=== PATIENT | male | born 1955 | race Caucasian/White ===

== ENCOUNTER 2023-07-12 08:57 | Outpatient (OUT) | payer MEDICARE, OTHER, SELFPAY ==
--- NOTE | 2023-07-12 10:40 | CA_ITS ---
Patient Name: ZEV REIS MR#: [id number] : 1955 Exam Date: 07/12/2023 Ordering Doctor: DR DYLAN MONTILLA . ECHOCARDIOGRAM REPORT PROCEDURE: CA ECHO DOPPLER COMPLETE INDICATIONS: Chest pain, essential hypertension, smoker, diabetes COMPARISON: None. DESCRIPTION: COMPLETE ECHOCARDIOGRAM Real-time transthoracic echocardiography with 2D, M-mode, spectral and color flow Doppler performed. QUALITY: Technical quality was good. 69 , 167#, BSA 1.91 m2 LEFT VENTRICLE: Normal chamber size. Asymmetric septal hypertrophy. Velocities through the left ventricular outflow tract are normal. LV EF: Global left ventricular systolic function is normal; visually estimated ejection fraction is 55 to 60%. No significant wall motion abnormalities. DIASTOLIC: Normal diastolic function. ATRIAL SEPTUM: Visually appears intact. LEFT ATRIUM: Normal chamber size. RIGHT ATRIUM: Normal chamber size. RIGHT VENTRICLE: Normal chamber size. Normal right ventricular systolic function. TRICUSPID VALVE: Normal mobility and thickness. No stenosis with trivial regurgitation. MITRAL VALVE: Mildly thickened with normal mobility. No evidence of mitral valve stenosis. There is no mitral annular calcification. Trivial mitral regurgitation. AORTIC VALVE: Normal trileaflet appearance. No visible sclerosis. Normal leaflet mobility. No evidence of aortic valve stenosis. No aortic regurgitation. AORTIC ROOT: Normal diameter and appearance. PULMONIC VALVE: Normal thickness and mobility. No stenosis. Trivial regurgitation. PERICARDIUM: No evidence of pericardial effusion. IVC: Collapses with inspirations. IVC is normal in size. CONCLUSION: 1. Global left ventricular systolic function is normal; visually estimated ejection fraction is 55 to 60% 2. Asymmetric septal hypertrophy; velocities through the left ventricular outflow tract are normal at rest. The echocardiographic phenotype is suggestive of hypertrophic cardiomyopathy. 3. Normal right ventricular size and systolic function 4. No significant valvular abnormalities Adult Echocardiography Procedure Report Left Ventricle LVEDD (3.7 - 5.6 cm): 4.23 cm LVESD (2.2 - 4.0 cm): 2.44 cm LVIVS thickness (0.6 - 1.2 cm): 1.64 cm LVPW thickness (0.5 - 1.0 cm): 1.03 cm e': 0.08 m/s E - e': 6.92 LVOT Max Gradient: 2.44 mm[Hg] LVOT Area (cm2): 0.78 m/s Peak Velocity (LVOT): 0.78 m/s Mean Velocity (LVOT): 0.57 m/s LVOT Diameter 2.54 cm Left Atrium LA Volume Index (2D A2C): 35.20 ml/m2 Left Atrium Systolic Dimension: 4.32 cm Mitral Valve MV E to A Ratio: 0.94 Mitral Valve A-Wave Peak Velocity: 0.57 m/s Mitral Valve E-Wave Peak Velocity: 0.53 m/s Right Ventricle Aorta AO Root Diam: 3.74 cm Ascending Ao Diam: 3.34 cm Aortic Valve AoV Area (Peak José Luis): 3.71 cm2, 3.71 cm2 AoV Area (VTI): 4.27 cm2, 4.27 cm2 Peak Velocity(Antegrade Flow): 1.07 m/s Peak Gradient(Antegrade Flow): 4.56 mm[Hg] Mean Velocity(Antegrade Flow): 0.69 m/s Mean Gradient(Antegrade Flow): 2.21 mm[Hg] Velocity Time Integral: 23.96 cm Tricuspid Valve Pulmonic Valve Peak Velocity: 0.77 m/s Peak Gradient: 2.56 mm[Hg], 2.21 mm[Hg] Right Atrium Right Atrium Systolic Pressure: 56.21 ml, 56.21 ml Dictated by: Chad Morgan M.D. on 07/13/2023 at 14:23 Approved by: Chad Morgan M.D. on 07/13/2023 at 14:29
== END 2023-07-12 08:58 | disposition home or self-care (01) ==
LOC: CARD 08:57
PROVIDERS: PCP Family Medicine; Visit Provider Family Medicine
DX: R07.9 Chest pain, unspecified (principal); I10 Essential (primary) hypertension
CPT/HCPCS: 93306; 93356

== ENCOUNTER 2023-11-25 07:17 | Outpatient (OUT) | payer MEDICARE, OTHER, SELFPAY ==
--- OUTSIDE RECORDS SUMMARY | 2023-11-25 07:21 | XMS_ITS | CCD ---
Author Organization [facility] Care Team Providers Care Bronzer Name Role Phone ROLDAN ., DR RICHARDSON Admitting Unavailable HOY ., DR RICHARDSON Attending Unavailable HOY ., DR RICHARDSON Primary Care Unavailable HOY ., DR RICHARDSON Consulting Unavailable ZIEBER, DR FREDI Cerda Consulting Unavailable HOY ., DR RICHARDSON Admitting Unavailable HOY ., DR RICHARDSON Attending Unavailable HOY ., DR RICHARDSON Primary Care Unavailable HOY ., DR RICHARDSON Consulting Unavailable GUSTAVO GONZALEZ Consulting Unavailable HOY ., DR RICHARDSON Admitting Unavailable HOY ., DR RICHARDSON Attending Unavailable HOY ., DR RICHARDSON Primary Care Unavailable HOY ., DR RICHARDSON Consulting Unavailable Serjio GAVIRIA Attending Unavailable Floriany, Dylan Referring Unavailable VIRGINIA POLLOCK Referring Unavailable HOY, DYLAN Referring Unavailable Floriany Dylan TAYLOR Primary Care Provider [phone] MARY TELLES Attending Unavailable HOY, DYLAN M Referring Unavailable HOY, DYLAN M Primary Care Unavailable MARY TELLES Admitting Unavailable MARY TELLES Attending Unavailable MARY TELLES Referring Unavailable HOY, DYLAN M Primary Care Unavailable LANNY RODRIGUEZ Consulting Unavailable WILLARD DE LA PAZ Consulting Unavailable JINA CONNOLLY Attending Unavailable HOY, DYLAN M Primary Care Unavailable RHYS RUSSO Referring Unavailable HOY, DYLAN M Primary Care Unavailable ADORE VELASQUEZ A Attending Unavailable ADORE VELASQUEZ A Referring Unavailable HOY, DYLAN M Primary Care Unavailable ADORE VELASQUEZ A Attending Unavailable ADORE VELASQUEZ A Referring Unavailable HOY, DYLAN M Primary Care Unavailable ADORE VELASQUEZ Attending Unavailable ADORE VELASQUEZ A Referring Unavailable HOY, DYLAN M Primary Care Unavailable WILLARD DE LA PAZ Attending Unavailable WILLARD DE LA PAZ Referring Unavailable HOY, DYLAN M Primary Care Unavailable WILLARD DE LA PAZ Attending Unavailable WILLARD DE LA PAZ Referring Unavailable HOY, DYLAN M Primary Care Unavailable MARY TELLES Attending Unavailable HOY, DYLAN M Referring Unavailable HOY, DYLAN M Primary Care Unavailable SHAZIA ELIZABETH Attending Unavailable HOY, DYLAN M Referring Unavailable HOY, DYLAN M Primary Care Unavailable CREEDON, CHLOE Attending Unavailable HOY, DYLAN M Referring Unavailable HOY, DYLAN M Primary Care Unavailable TAMEKA ROSARIO Referring Unavailable PROVIDER, UNKNOWN Primary Care Unavailable CREEDON, CHLOE Referring Unavailable PROVIDER, UNKNOWN Primary Care Unavailable CREEDON, CHLOE Referring Unavailable PROVIDER, UNKNOWN Primary Care Unavailable CREEDON, CHLOE Referring Unavailable PROVIDER, UNKNOWN Primary Care Unavailable CREEDON, CHLOE Referring Unavailable PROVIDER, UNKNOWN Primary Care Unavailable Allergies Allergy Classification Reported Allergen(s) Allergy Type Date of Onset Reaction(s) Facility (1 source) ALLERGIES NOT ON FILE; Translations: [ALLERGIES NOT ON FILE] Propensity to adverse reactions (disorder) [facility] Repository Medications Current Medications Medication Drug Class(es) Dates Sig (Normalized) Sig (Original) amLODIPine 10 mg oral tablet (5 sources) Dihydropyridine Calcium Channel Erika take 1 tablet by mouth in the morning amLODIPine (NORVASC) 10 mg tablet Indications: hypertension Take 1 tablet (10 mg total) by mouth in the morning. Indications: high blood pressure. 0 Active atorvastatin 40 mg oral tablet (5 sources) HMG-CoA Reductase Inhibitor take 1 tablet by mouth once daily atorvastatin (LIPITOR) 40 mg tablet Indications: hypercholesterolemia Take 1 tablet (40 mg total) by mouth nightly Indications: high cholesterol. 0 Active carvedilol 25 mg oral tablet (5 sources) alpha-Adrenergic Erika, beta-Adrenergic Erika take 1 tablet by mouth in the morning, then take 1 tablet by mouth at mealtime carvedilol (COREG) 25 mg tablet Indications: hypertension Take 1 tablet (25 mg total) by mouth in the morning and 1 tablet (25 mg total) in the evening. Take with meals. Indications: high blood pressure. 0 Active 3 ml insulin lispro 100 unt/ml pen injector (3 sources) Insulin Analog Start: 4 inject 2-10 [IU] by subcutaneous injection four times daily at mealtime insulin lispro (HumaLOG) 100 unit/mL insulin pen Inject 2-10 Units under the skin 4 (four) times a day with meals and nightly. 15 mL 12 07/27/2023 Active insulin lispro (HumaLOG) 100 unit/mL insulin pen (2 sources) Start: 4 inject 2-10 [IU] by subcutaneous injection four times daily at mealtime insulin lispro (HumaLOG) 100 unit/mL insulin pen Inject 2-10 Units under the skin 4 (four) times a day with meals and nightly. 15 mL 12 07/27/2023 Active losartan potassium 25 mg oral tablet (5 sources) Angiotensin 2 Receptor Erika take 2 tablets by mouth in the morning losartan (COZAAR) 25 mg tablet Indications: hypertension Take 2 tablets (50 mg total) by mouth in the morning. Indications: high blood pressure. 0 Active metFORMIN hydrochloride 500 mg oral tablet (5 sources) Biguanide Start: 3 take 1 tablet by mouth twice daily metFORMIN (GLUCOPHAGE) 500 mg tablet 1 tablet with a meal Orally Twice a day for 30 day(s) 0 07/11/2023 Active ondansetron 4 mg disintegrating oral tablet (5 sources) Serotonin-3 Receptor Antagonist Start: 4 take 1 tablet by mouth every eight hours as needed for nausea and vomiting ondansetron ODT (ZOFRAN ODT) 4 mg disintegrating tablet Dissolve 1 tablet (4 mg total) on tongue every 8 (eight) hours as needed for nausea or vomiting. 30 tablet 3 08/05/2023 Active polyethylene glycol 3350 34131 mg powder for oral solution (5 sources) Osmotic Laxative Start: 4 polyethylene glycol (GLYCOLAX) 17 gram packet Take 17 g by mouth in the morning. 30 packet 0 07/28/2023 Active Problems Active Problems Problem Classification Problem Date Documented Date Episodic/Chronic Acute and unspecified renal failure (1 source) Acute kidney failure, unspecified; Translations: [Acute kidney failure, unspecified] Onset: 11-14-2023 Episodic Aortic; peripheral; and visceral artery aneurysms (5 sources) Abdominal aortic aneurysm; Translations: [AAA (abdominal aortic aneurysm)] Onset: 02-23-2018 02-23-2018 Chronic Cancer of kidney and renal pelvis (8 sources) Clear cell carcinoma of kidney; Translations: [Malignant neoplasm of unspecified kidney, except renal pelvis] Onset: 05-11-2023 08-21-2023 Chronic Chronic kidney disease (2 sources) Chronic kidney disease, unspecified; Translations: [Chronic kidney disease, unspecified] Onset: 11-11-2023 Chronic Coronary atherosclerosis and other heart disease (2 sources) Atherosclerotic heart disease of [place] coronary artery without angina pectoris; Translations: [Atherosclerotic heart disease of [place] coronary artery without angina pectoris] Onset: 11-11-2023 Chronic Diabetes mellitus without complication (1 source) Type 2 diabetes mellitus without complications; Translations: [Type 2 diabetes mellitus without complications] Onset: 07-21-2023 Chronic Disorders of lipid metabolism (7 sources) Mixed hyperlipidemia; Translations: [Mixed hyperlipidemia] Onset: 02-23-2018 02-23-2018 Chronic Essential hypertension (7 sources) Essential hypertension; Translations: [Essential (primary) hypertension] Onset: 02-23-2018 02-23-2018 Chronic Nonspecific chest pain (2 sources) Other chest pain; Translations: [Other chest pain] Onset: 11-11-2023 Episodic Other diseases of kidney and ureters (3 sources) Other specified disorders of kidney and ureter; Translations: [Other specified disorders of kidney and ureter] Onset: 12-23-2022 Chronic Other diseases of kidney and ureters (7 sources) Renal mass; Translations: [Other specified disorders of kidney and ureter] Onset: 07-21-2023 08-21-2023 Chronic Other screening for suspected conditions (not mental disorders or infectious disease) (7 sources) Abnormal findings on diagnostic imaging of other abdominal regions, including retroperitoneum; Translations: [Abnormal results of kidney function studies] Onset: 11-30-2022 Episodic Setfany-; endo-; and myocarditis; cardiomyopathy (except that caused by tuberculosis or sexually transmitted disease) (2 sources) Other hypertrophic cardiomyopathy; Translations: [Other hypertrophic cardiomyopathy] Onset: 11-11-2023 Chronic Peripheral and visceral atherosclerosis (1 source) Peripheral vascular disease, unspecified; Translations: [Peripheral vascular disease, unspecified] Onset: 11-11-2023 Chronic Residual codes; unclassified (1 source) Pain, unspecified; Translations: [Pain, unspecified] Onset: 10-26-2023 Episodic Substance-related disorders (7 sources) Nicotine dependence; Translations: [Nicotine dependence, unspecified, uncomplicated] Onset: 02-23-2018 02-23-2018 Chronic Unclassified (1 source) Renal cell carcinoma (CMS-HCC) [C64.9] Onset: 07-21-2023 Unclassified (1 source) Infrarenal abdominal aortic aneurysm, without rupture; Translations: [Infrarenal abdominal aortic aneurysm, without rupture] Onset: 02-23-2018 Unclassified (1 source) New Patient Onset: 11-11-2023 Past or Other Problems Problem Classification Problem Date Documented Da te Episodic/Chronic Mood disorders (5 sources) Mood disorders Onset: 07-21-2023 07-21-2023 Pancreatic disorders (not diabetes) (5 sources) Idiopathic acute pancreatitis; Translations: [Idiopathic acute pancreatitis without necrosis or infection] Onset: 02-23-2018 02-23-2018 Episodic Results Test Name Value Interpretation Reference Range Facility CREATININE CLEARANCEon 11-13 Creatinine (U) [Mass/Vol] 51.43 mg/dL Normal [facility] Comment on above: Performed By: #### C RCL #### [facility] ([id number]) [address] [place] [address] CREATININE CLEARANCE 13.6 mL/min Low 74-130 [facility] Comment on above: Performed By: #### C RCL #### [facility] ([id number]) [address] [place] [address] URINE VOLUME AND TIMEon 10-24 TIME 24 h [facility] Comment on above: Performed By: #### C RCL #### [facility] ([id number]) [address] [place] [address] TOTAL VOLUME 1700 mL Normal [facility] Comment on above: Performed By: #### C RCL #### [facility] ([id number]) [address] [place] [address] Measure post void residualOr dered By: Gabrielle Moreno on 09-30-2023 Volume 71ccs [facility] BASIC METABOLIC PANLon 07-27 Anion gap [Moles/Vol] 10 mmol/L Normal 5-15 [facility] Comment on above: Performed By: #### C HANNAH, BMP, , 2776-07 #### [facility] ([id number]) [address], [address] [place] [address] Calcium [Mass/Vol] 8.1 mg/dL Low 8.5-10.[address] [facility] Comment on above: Performed By: #### C HANNAH, BMP, , 2776-07 #### [facility] ([id number]) [address], [address] [place] [address] Chloride [Moles/Vol] 101 mmol/L Normal 98-109 [facility] Comment on above: Performed By: #### Kathleen YOUNG, SEBASTIAN, , 2776-07 #### [facility] ([id number]) [address], [address] [place] [address] CO2 [Moles/Vol] 27 mmol/L Normal 22-32 [facility] Comment on above: Performed By: #### C HANNAH, SEBASTIAN, , 2776-07 #### [facility] ([id number]) [address], [address] [place] [address] Creatinine [Mass/Vol] 5.69 mg/dL High 0.60-1.30 [facility] Comment on above: Result Comment: METH OD TRACEABLE TO IDMS STANDARD Performed By: #### Kathleen YOUNG, BMP, , 2776-07 #### [facility] ([id number]) [address], [address] [place] [address] GFR/1.73 sq M.predicted among non-blacks MDRD (S/P/Bld) [Vol rate/Area] 10 mL/min/{1.73_m2} Low >59 [facility] Comment on above: Result Comment: Reported eGFR is based on the CKD-EPI 2020 equation that does not use a race coefficient. Performed By: #### C BC, BMP, , 2776-07 #### [facility] ([id number]) [address], [address] [place] [address] Glucose [Mass/Vol] 165 mg/dL High 65-[address] [facility] Comment on above: Performed By: #### C SEBASTIAN YOUNG, , 2776-07 #### [facility] ([id number]) [address], [address] [place] [address] Potassium [Moles/Vol] 4.3 mmol/L Normal 3.5-5.0 [facility] Comment on above: Performed By: #### SEBASTIAN MARTIN, , 2776-07 #### [facility] ([id number]) [address], [address] [place] [address] Sodium [Moles/Vol] 138 mmol/L Normal 134-[address] [facility] Comment on above: Performed By: #### SEBASTIAN MARTIN, , 2776-07 #### [facility] ([id number]) [address], [address] [place] [address] Urea nitrogen [Mass/Vol] 40 mg/dL High 5-27 [facility] Comment on above: Performed By: #### SEBASTIAN MARTIN, , 2776-07 #### [facility] ([id number]) [address], [address] [place] [address] COMPLETE BLOOD COUNTon 07-27 Erythrocyte distribution width (RBC) [Ratio] 12.8 % Normal 11.5-15.0 [facility] Comment on above: Performed By: #### SEBASTIAN MARTIN, , 2776-07 #### [facility] ([id number]) [address], [address] [place] [address] Hematocrit (Bld) [Volume fraction] 26.7 % Low 39-49 [facility] Comment on above: Performed By: #### SEBASTIAN MARTIN, , 2776-07 #### [facility] ([id number]) [address], [address] [place] [address] Hemoglobin (Bld) [Mass/Vol] 9.4 g/dL Low 13.0-17.0 [facility] Comment on above: Performed By: #### C HANNAH, BMP, , 2776-07 #### [facility] ([id number]) [address], [address] [place] [address] MCH (RBC) [Entitic mass] 31.3 pg Normal 27-34 [facility] Comment on above: Performed By: #### Kathleen YOUNG, BMP, , 2776-07 #### [facility] ([id number]) [address], [address] [place] [address] MCHC (RBC) [Mass/Vol] 35.2 g/dL Normal 32-36 [facility] Comment on above: Performed By: #### Kathleen YOUNG, BMP, , 2776-07 #### [facility] ([id number]) [address], [address] [place] [address] MCV (RBC) [Entitic vol] 89 fL Normal 80-100 [facility] Comment on above: Performed By: #### Kathleen YOUNG, BMP, , 2776-07 #### [facility] ([id number]) [address], [address] [place] [address] Platelet mean volume (Bld) [Entitic vol] 7.5 fL Normal 7-12 [facility] Comment on above: Performed By: #### Kathleen YOUNG, BMP, , 2776-07 #### [facility] ([id number]) [address], [address] [place] [address] Platelets (Bld) [#/Vol] 195 10*3/uL Normal 150-450 [facility] Comment on above: Performed By: #### Kathleen YOUNG, [facility], , 2776-07 #### [facility] ([id number]) [address], [address] [place] [address] RBC COUNT 3.00 X10E12/L Low 4.10-5.70 [facility] Comment on above: Performed By: #### SEBASTIAN MARTIN, , 2776-07 #### [facility] ([id number]) [address], [address] [place] [address] WBC (Bld) [#/Vol] 5.6 10*3/uL Normal 4.0-11.[address] [facility] Comment on above: Performed By: #### SEBASTIAN MARTIN, , 2776-07 #### [facility] ([id number]) [address], [address] [place] [address] FLUID CREATININEon Creatinine [Mass/Vol] 5.76 mg/dL Normal [facility] Comment on above: Result Comment: The reference interval and other method performance specifications are unavailable for this body fluid. Comparison of this result to serum or plasma is recommended. Performed By: #### SEBASTIAN MARTIN, , 2776-07 #### [facility] ([id number]) [address], [address] [place] [address] CRET SPECIMEN TYPE [facility] Normal [facility] Comment on above: Performed By: #### SEBASTIAN MARTIN, , 2776-07 #### [facility] ([id number]) [address], [address] [address] Glucose Glucometer (BldC) [M ass/Vol]on 07-27-2023 Glucose [Mass/Vol] 132 mg/dL High 65-[address] [facility] Glucose [Mass/Vol] 138 mg/dL High 65-[address] [facility] IR PORT TUNLD DIAL/CENT LINE > 5 YRSon 07-27-2023 IR PORT TUN[place] DIAL/CENT LINE > 5 YRS IR PORT TUNLD DIAL/CENT LINE > 5 YRS History: 67-year-old male with renal failure requiring long-term hemodialysis. Procedures: 1. Removal of right internal jugular vein nontunneled hemodialysis catheter. 2. Placement of new right internal jugular vein cuffed, tunneled hemodialysis catheter. Interventional radiologist: Dr. Renato De La Torre Anesthesia: During the course of the procedure, the patient received local and IV pain control with 100 mcg Fentanyl IV while being monitored with ECG, blood pressure monitoring and pulse oximetry by appropriately trained personnel. Fluoroscopy time: 0.3 minutes Total air kerma: 1.45 mGy Estimated blood loss: 10 mL. Additional medications: Ancef 1 g IV given one hour prior to procedure, discontinued after a single dose. Technique: Informed consent was obtained from the patient after discussion of procedure, risks and benefits. Patient transferred to angiography suite. Final verification performed. The patient was placed supine and the right neck prepped using maximal sterile technique. All elements of the maximal sterile barrier technique were followed including: cap and mask and sterile gown and sterile gloves and a large sterile sheet and hand hygiene and 2% chlorhexidine for cutaneous antiseptics (or acceptable alternative antiseptics, per current guidelines). 1% lidocaine with epinephrine was used to anesthetize the subcutaneous tissues in the right deltopectoral groove towards the venous access site. A small dermatotomy was made in the deltopectoral groove. Using a tunneling device, the catheter was tunneled towards the venous access site of the existing nontunneled catheter. 1% Lidocaine was used to anesthetize the subcutaneous tissues surrounding the existing right nontunneled hemodialysis catheter and the anchoring sutures were cut. A guidewire was passed through the existing nontunneled catheter. The catheter was then removed and a peel-away sheath with air guard was placed. The tips of the new catheter were placed through the air guard peel-away sheath and positioned appropriately. The peel-away sheath was removed. Final fluoroscopic image was obtained. Both ports of the catheter flushed and aspirated well. The catheter was secured to the skin using 2-0 Prolene sutures. The venous access site was closed with a single stitch of 3-0 Vicryl. Existing skin glue was applied over the venous access site. Dressing was applied. Both ports of the catheter were flushed with sodium citrate. The patient tolerated the procedure well without immediate complication. Findings: 1. The right internal jugular vein is patent. 2. Catheter has a smooth course without evidence of kinks. 3. Both ports of the catheter flushed and aspirated well. Impression: 1. Successful removal of existing right internal jugular nontunneled hemodialysis catheter. 2. Successful insertion of a new right internal jugular 19 cm cuff to tip AshSplit cuffed, tunneled hemodialysis catheter. Finalized by Renato De La Torre MD on 07/27/2023 1:04 PM Normal [facility] PHOSPHORUSon 07-27-2023 Phosphate [Mass/Vol] 5.1 mg/dL High 2.4-4.9 [facility] Comment on above: Performed By: #### SEBASTIAN MARTIN, , 2776-1 #### [facility] ([id number]) [address], [address] [place] [address] BASIC METABOLIC PANLon 07-26 Anion gap [Moles/Vol] 10 mmol/L Normal 5-15 [facility] Comment on above: Performed By: #### SEBASTIAN MARTIN, , 2776-07 #### [facility] ([id number]) [address], [address] [place] [address] Calcium [Mass/Vol] 7.9 mg/dL Low 8.5-10.[address] [facility] Comment on above: Performed By: #### SEBASTIAN MARTIN, , 2776-07 #### [facility] ([id number]) [address], [address] [place] [address] Chloride [Moles/Vol] 101 mmol/L Normal 98-109 [facility] Comment on above: Performed By: #### SEBASTIAN MARTIN, , 2776-07 #### [facility] ([id number]) [address], [address] [place] [address] CO2 [Moles/Vol] 24 mmol/L Normal 22-32 [facility] Comment on above: Performed By: #### C SEBASTIAN YOUNG, , 2776-07 #### [facility] ([id number]) [address], [address] [place] [address] Creatinine [Mass/Vol] 7.14 mg/dL High 0.60-1.30 [facility] Comment on above: Result Comment: METH OD TRACEABLE TO IDMS STANDARD Performed By: #### C SEBASTIAN YOUNG, , 2776-07 #### [facility] ([id number]) [address], [address] [place] [address] GFR/1.73 sq M.predicted among non-blacks MDRD (S/P/Bld) [Vol rate/Area] 8 mL/min/{1.73_m2} Low >59 [facility] Comment on above: Result Comment: Reported eGFR is based on the CKD-EPI 2020 equation that does not use a race coefficient. Performed By: #### C SEBASTIAN YOUNG, , 2776-07 #### [facility] ([id number]) [address], [address] [place] [address] Glucose [Mass/Vol] 168 mg/dL High 65-[address] [facility] Comment on above: Performed By: #### SEBASTIAN MARTIN, , 2776-07 #### [facility] ([id number]) [address], [address] [place] [address] Potassium [Moles/Vol] 4.4 mmol/L Normal 3.5-5.0 [facility] Comment on above: Performed By: #### SEBASTIAN MARTIN, , 2776-07 #### [facility] ([id number]) [address], [address] [place] [address] Sodium [Moles/Vol] 135 mmol/L Normal 134-[address] [facility] Comment on above: Performed By: #### C HANNAH, BMP, , 2776-07 #### [facility] ([id number]) [address], [address] [place] [address] Urea nitrogen [Mass/Vol] 58 mg/dL High 5-27 [facility] Comment on above: Performed By: #### C HANNAH, BMP, , 2776-07 #### [facility] ([id number]) [address], [address] [place] [address] COMPLETE BLOOD COUNTon 07-26 Erythrocyte distribution width (RBC) [Ratio] 12.9 % Normal 11.5-15.0 [facility] Comment on above: Performed By: #### Kathleen YOUNG, BMP, , 2776-07 #### [facility] ([id number]) [address], [facility] [address] [place] [address] Hematocrit (Bld) [Volume fraction] 27.6 % Low 39-49 [facility] Comment on above: Performed By: #### C HANNAH, BMP, , 2776-07 #### [facility] ([id number]) [address], [address] [place] [address] Hemoglobin (Bld) [Mass/Vol] 9.7 g/dL Low 13.0-17.0 [facility] Comment on above: Performed By: #### Kathleen YOUNG, BMP, , 2776-07 #### [facility] ([id number]) [address], [address] [place] [address] MCH (RBC) [Entitic mass] 31.2 pg Normal 27-34 [facility] Comment on above: Performed By: #### C BC, BMP, , 2776-07 #### [facility] ([id number]) [address], [address] [place] [address] MCHC (RBC) [Mass/Vol] 35.0 g/dL Normal 32-36 [facility] Comment on above: Performed By: #### SEBASTIAN MARTIN, , 2776-07 #### [facility] ([id number]) [address], [address] [place] [address] MCV (RBC) [Entitic vol] 89 fL Normal 80-100 [facility] Comment on above: Performed By: #### SEBASTIAN MARTIN, , 2776-07 #### [facility] ([id number]) [address], [address] [place] [address] Platelet mean volume (Bld) [Entitic vol] 7.5 fL Normal 7-12 [facility] Comment on above: Performed By: #### SEBASTIAN MARTIN, , 2776-07 #### [facility] ([id number]) [address], [address] [place] [address] Platelets (Bld) [#/Vol] 186 10*3/uL Normal 150-450 [facility] Comment on above: Performed By: #### SEBASTIAN MARTIN, , 2776-07 #### [facility] ([id number]) [address], [address] [place] [address] RBC COUNT 3.09 X10E12/L Low 4.10-5.70 [facility] Comment on above: Performed By: #### Kathleen YOUNG, SEBASTIAN, , 2776-07 #### [facility] ([id number]) [address], [address] [place] [address] WBC (Bld) [#/Vol] 5.9 10*3/uL Normal 4.0-11.[address] [facility] Comment on above: Performed By: #### Kathleen YOUNG, SEBASTIAN, , 2776-07 #### [facility] ([id number]) [address], [address] [place] [address] Glucose Glucometer (BldC) [M ass/Vol]on 07-26-2023 Glucose [Mass/Vol] 147 mg/dL High 65-[address] [facility] Glucose [Mass/Vol] 194 mg/dL High 65-[address] [facility] Glucose [Mass/Vol] 147 mg/dL High 65-[address] [facility] Glucose [Mass/Vol] 179 mg/dL High 65-[address] [facility] HBV core Ab IA Qlon 07-26-19 24 ANTI HBc Negative Normal NEG [facility] Comment on above: Performed By: #### SEBASTIAN MARTIN, , 2776-07 #### [facility] ([id number]) [address], [address] [place] [address] BASIC METABOLIC PANLon 07-25 Anion gap [Moles/Vol] 9 mmol/L Normal 5-15 [facility] Comment on above: Performed By: #### SEBASTIAN MARTIN, , 2776-07 #### [facility] ([id number]) [address], [address] [place] [address] Calcium [Mass/Vol] 7.8 mg/dL Low 8.5-10.[address] [facility] Comment on above: Performed By: #### SEBASTIAN MARTIN, , 2776-07 #### [facility] ([id number]) [address], [address] [place] [address] Chloride [Moles/Vol] 100 mmol/L Normal 98-109 [facility] Comment on above: Performed By: #### SEBASTIAN MARTIN, , 2776-07 #### [facility] ([id number]) [address], [address] [place] [address] CO2 [Moles/Vol] 27 mmol/L Normal 22-32 [facility] Comment on above: Performed By: #### SEBASTIAN MARTIN, [id number] #### [facility] ([id number]) [address] [place] [address] Creatinine [Mass/Vol] 4.78 mg/dL High 0.60-1.30 [facility] Comment on above: Result Comment: METH OD TRACEABLE TO IDMS STANDARD Performed By: #### SEBASTIAN MARTIN, , 2776-07 #### [facility] ([id number]) [address], [address] [place] [address] GFR/1.73 sq M.predicted among non-blacks MDRD (S/P/Bld) [Vol rate/Area] 13 mL/min/{1.73_m2} Low >59 [facility] Comment on above: Result Comment: Reported eGFR is based on the CKD-EPI 2020 equation that does not use a race coefficient. Performed By: #### SEBASTIAN MARTIN, , 2776-07 #### [facility] ([id number]) [address], [address] [place] [address] Glucose [Mass/Vol] 132 mg/dL High 65-[address] [facility] Comment on above: Performed By: #### SEBASTIAN MARTIN, , 2776-07 #### [facility] ([id number]) [address], [address] [place] [address] Potassium [Moles/Vol] 4.2 mmol/L Normal 3.5-5.0 [facility] Comment on above: Performed By: #### SEBASTIAN MARTIN, , 2776-07 #### [facility] ([id number]) [address], [address] [place] [address] Sodium [Moles/Vol] 136 mmol/L Normal 134-[address] [facility] Comment on above: Performed By: #### SEBASTIAN MARTIN, , 2776-07 #### [facility] ([id number]) [address], [address] [place] [address] Urea nitrogen [Mass/Vol] 40 mg/dL High 5-27 [facility] Comment on above: Performed By: #### Kathleen BC, BMP, , 2776-07 #### [facility] ([id number]) [address], [facility] [address] [place] [address] COMPLETE BLOOD COUNTon 07-25 Erythrocyte distribution width (RBC) [Ratio] 13.1 % Normal 11.5-15.0 [facility] Comment on above: Performed By: #### Kathleen YOUNG, BMP, , 2776-07 #### [facility] ([id number]) [address], [facility] [address] [place] [address] Hematocrit (Bld) [Volume fraction] 28.8 % Low 39-49 [facility] Comment on above: Performed By: #### Kathleen YOUNG, BMP, , 2776-07 #### [facility] ([id number]) [address] [address] [place] [address] Hemoglobin (Bld) [Mass/Vol] 10.1 g/dL Low 13.0-17.0 [facility] Comment on above: Performed By: #### Kathleen YOUNG, BMP, , 2776-07 #### [facility] ([id number]) [address], [facility] [address] [place] [address] MCH (RBC) [Entitic mass] 31.1 pg Normal 27-34 [facility] Comment on above: Performed By: #### Kathleen BC, BMP, , 2776-07 #### [facility] ([id number]) [address], [address] [place] [address] MCHC (RBC) [Mass/Vol] 35.2 g/dL Normal 32-36 [facility] Comment on above: Performed By: #### Kathleen BC, BMP, , 2776-07 #### [facility] ([id number]) [address], [address] [place] [address] MCV (RBC) [Entitic vol] 89 fL Normal 80-100 P [facility] Comment on above: Performed By: #### SEBASTIAN MARTIN, , 2776-07 #### [facility] ([id number]) [address], [address] [place] [address] Platelet mean volume (Bld) [Entitic vol] 7.6 fL Normal 7-12 [facility] Comment on above: Performed By: #### SEBASTIAN MARTIN, , 2776-07 #### [facility] ([id number]) [address] [address] [place] [address] Platelets (Bld) [#/Vol] 182 10*3/uL Normal 150-450 [facility] Comment on above: Performed By: #### SEBASTIAN MARTIN, , 2776-07 #### [facility] ([id number]) [address] [address] [place] [address] RBC COUNT 3.25 X10E12/L Low 4.10-5.70 [facility] Comment on above: Performed By: #### SEBASTIAN MARTIN, , 2776-07 #### [facility] ([id number]) [address], [facility] [address] [place] [address] WBC (Bld) [#/Vol] 6.0 10*3/uL Normal 4.0-11.[address] [facility] Comment on above: Performed By: #### SEBASTIAN MARTIN, , 2776-07 #### [facility] ([id number]) [address], [address] [place] [address] Glucose Glucometer (BldC) [M ass/Vol]on 07-25-2023 Glucose [Mass/Vol] 190 mg/dL High 65-[address] [facility] Glucose [Mass/Vol] 144 mg/dL High 65-[address] [facility] Glucose [Mass/Vol] 200 mg/dL High 65-[address] [facility] Glucose [Mass/Vol] 142 mg/dL High 65-[address] [facility] Glucose [Mass/Vol] 142 mg/dL High 65-[address] [facility] HGB A1C (GLYCO-HGB)on 2023 Glucose [Mass/Vol] 289 mg/dL Normal [facility] Comment on above: Performed By: #### C SEBASTIAN YOUNG, , 2777-1 #### [facility] ([id number]) [address] [facility] [place] [address] HbA1c (Bld) [Mass fraction] 11.7 % High 4.4-5.6 [facility] Comment on above: Result Comment: NOTE ADA Guidelines Result HgbA1c Normal : less than 5.7 % Prediabetes : 5.7 % to 6.4 % Diabetes : > 6.4 % Use with caution in patients with abnormal hemoglobin variants as the half-life of red blood cells and in vivo glycation rates are affected. Performed By: #### C SEBASTIAN YOUNG, 30483-6, 2777-1 #### [facility] ([id number]) [address] [facility] [facility] [place] [address] BASIC METABOLIC PANLon 07-24 Anion gap [Moles/Vol] 13 mmol/L Normal 5-15 [facility] Comment on above: Performed By: #### H RTN #### [facility] ([id number]) [address] [place] [address] Calcium [Mass/Vol] 8.1 mg/dL Low 8.5-10.[address] [facility] Comment on above: Performed By: #### H RTN #### [facility] ([id number]) [address] [place] [address] Chloride [Moles/Vol] 100 mmol/L Normal 98-109 [facility] Comment on above: Performed By: #### H RTN #### [facility] ([id number]) [address] [place] [address] CO2 [Moles/Vol] 22 mmol/L Normal 22-32 [facility] Comment on above: Performed By: #### H RTN #### [facility] ([id number]) [address] [place] [address] Creatinine [Mass/Vol] 5.36 mg/dL High 0.60-1.30 [facility] Comment on above: Result Comment: METH OD TRACEABLE TO IDMS STANDARD Performed By: #### H RTN #### [facility] ([id number]) [address] [place] [address] GFR/1.73 sq M.predicted among non-blacks MDRD (S/P/Bld) [Vol rate/Area] 11 mL/min/{1.73_m2} Low >59 [facility] Comment on above: Result Comment: Reported eGFR is based on the CKD-EPI 2020 equation that does not use a race coefficient. Performed By: #### H RTN #### [facility] ([id number]) [address] [place] [address] Glucose [Mass/Vol] 100 mg/dL High 65-[address] [facility] Comment on above: Performed By: #### H RTN #### [facility] ([id number]) [address] [place] [address] Potassium [Moles/Vol] 4.4 mmol/L Normal 3.5-5.0 [facility] Comment on above: Performed By: #### H RTN #### [facility] ([id number]) [address] [place] [address] Sodium [Moles/Vol] 135 mmol/L Normal 134-[address] [facility] Comment on above: Performed By: #### H RTN #### [facility] ([id number]) [address] [place] [address] Urea nitrogen [Mass/Vol] 50 mg/dL High 5-27 [facility] Comment on above: Performed By: #### H RTN #### [facility] ([id number]) [address] [place] [address] COMPLETE BLOOD COUNTon 07-24 Erythrocyte distribution width (RBC) [Ratio] 12.8 % Normal 11.5-15.0 [facility] Comment on above: Performed By: #### H RTN #### [facility] ([id number]) [address] [place] [address] Hematocrit (Bld) [Volume fraction] 29.2 % Low 39-49 [facility] Comment on above: Performed By: #### H RTN #### [facility] ([id number]) [address] [place] [address] Hemoglobin (Bld) [Mass/Vol] 10.1 g/dL Low 13.0-17.0 [facility] Comment on above: Performed By: #### H RTN #### [facility] ([id number]) [address] [place] [address] MCH (RBC) [Entitic mass] 30.5 pg Normal 27-34 [facility] Comment on above: Performed By: #### H RTN #### [facility] ([id number]) [address] [place] [address] MCHC (RBC) [Mass/Vol] 34.7 g/dL Normal 32-36 [facility] Comment on above: Performed By: #### H RTN #### [facility] ([id number]) [address] [place] [address] MCV (RBC) [Entitic vol] 88 fL Normal 80-100 P [facility] Comment on above: Performed By: #### H RTN #### [facility] ([id number]) [address] [place] [address] Platelet mean volume (Bld) [Entitic vol] 7.7 fL Normal 7-12 [facility] Comment on above: Performed By: #### H RTN #### [facility] ([id number]) [address] [place] [address] Platelets (Bld) [#/Vol] 150 10*3/uL Normal 150-450 [facility] Comment on above: Performed By: #### H RTN #### [facility] ([id number]) [address] [place] [address] RBC COUNT 3.32 X10E12/L Low 4.10-5.70 [facility] Comment on above: Performed By: #### H RTN #### [facility] ([id number]) [address] [place] [address] WBC (Bld) [#/Vol] 6.9 10*3/uL Normal 4.0-11.[address] [facility] Comment on above: Performed By: #### H RTN #### [facility] ([id number]) [address] [place] [address] Glucose Glucometer (dC) [M ass/Vol]on 07-24-2023 Glucose [Mass/Vol] 144 mg/dL High 65-[address] [facility] Glucose [Mass/Vol] 94 mg/dL Normal 65-[address] [facility] Glucose [Mass/Vol] 98 mg/dL Normal 65-[address] [facility] Glucose [Mass/Vol] 104 mg/dL High 65-[address] [facility] Glucose [Mass/Vol] 104 mg/dL High 65-[address] [facility] US RETROPERITONEAL COMPLETEo n 07-24-2023 US RETROPERITONEAL COMPLETE US RETROPERITONEAL COMPLETE Clinical history: Hypertension and diabetes Findings: Multiplanar sonography was performed of the kidneys and bladder. Comparison: None. Right kidney 10.5 cm in length Left kidney 9.5 cm in length. No hydronephrosis or perinephric fluid. Exam somewhat compromised due to patient's bandages overlying the right side of the abdomen. No definite ascites. Cooper catheter in bladder. Right pleural effusion. Impression: * No obstructive uropathy nor ascites. * Right pleural effusion Finalized by Tom Felder MD on 07/24/2023 4:53 PM Normal [facility] ACUTE HEPATITIS PANELon 12-3 ANTI HCV W/PCR REFLX Non-Reactive Normal NRCT Pr [facility] Comment on above: Result Comment: If recent infection suspected, recommend repeat testing (>2 months). Yrscqh-dw-mouroj ratio is <0.80. Performed By: #### H RTN #### [facility] ([id number]) [address] [place] [address] HEPATITIS A IGM Non-Reactive Normal NRCT [facility] Comment on above: Performed By: #### H RTN #### [facility] ([id number]) [address] [place] [address] HEPATITIS B CORE IGM Negative Normal NEG [facility] Comment on above: Performed By: #### H RTN #### [facility] ([id number]) [address] [place] [address] HEPATITIS B SURF AG Negative Normal NEG [facility] Comment on above: Performed By: #### H RTN #### [facility] ([id number]) [address] [place] [address] BASIC METABOLIC PANLon 07-23 Anion gap [Moles/Vol] 12 mmol/L Normal 5-15 [facility] Comment on above: Performed By: #### H RTN #### [facility] ([id number]) [address] [place] [address] Calcium [Mass/Vol] 7.5 mg/dL Low 8.5-10.[address] [facility] Comment on above: Performed By: #### H RTN #### [facility] ([id number]) [address] [place] [address] Chloride [Moles/Vol] 100 mmol/L Normal 98-109 [facility] Comment on above: Performed By: #### H RTN #### [facility] ([id number]) [address] [place] [address] CO2 [Moles/Vol] 20 mmol/L Low 22-32 [facility] Comment on above: Performed By: #### H RTN #### [facility] ([id number]) [address] [place] [address] Creatinine [Mass/Vol] 5.62 mg/dL High 0.60-1.30 [facility] Comment on above: Result Comment: METH OD TRACEABLE TO IDMS STANDARD Performed By: #### H RTN #### [facility] ([id number]) [address] [place] [address] GFR/1.73 sq M.predicted among non-blacks MDRD (S/P/Bld) [Vol rate/Area] 11 mL/min/{1.73_m2} Low >59 [facility] Comment on above: Result Comment: Reported eGFR is based on the CKD-EPI 2020 equation that does not use a race coefficient. Performed By: #### H RTN #### [facility] ([id number]) [address] [place] [address] Glucose [Mass/Vol] 148 mg/dL High 65-[address] [facility] Comment on above: Performed By: #### H RTN #### [facility] ([id number]) [address] [place] [address] Potassium [Moles/Vol] 4.3 mmol/L Normal 3.5-5.0 [facility] Comment on above: Performed By: #### H RTN #### [facility] ([id number]) [address] [place] [address] Sodium [Moles/Vol] 132 mmol/L Low 134-[address] [facility] Comment on above: Performed By: #### H RTN #### [facility] ([id number]) [address] [place] [address] Urea nitrogen [Mass/Vol] 58 mg/dL High 5-27 [facility] Comment on above: Performed By: #### H RTN #### [facility] ([id number]) [address] [place] [address] COMPLEMENT PROFILEon 023 COMPLEMENT C3 96 mg/dL Normal 86-184 [facility] Comment on above: Performed By: #### H RTN #### [facility] ([id number]) [address] [place] [address] COMPLEMENT C4 31 mg/dL Normal 16-47 [facility] Comment on above: Performed By: #### H RTN #### [facility] ([id number]) [address] [place] [address] COMPLETE BLOOD COUNTon 07-23 Erythrocyte distribution width (RBC) [Ratio] 12.8 % Normal 11.5-15.0 [facility] Comment on above: Performed By: #### H RTN #### [facility] ([id number]) [address] [place] [address] Hematocrit (Bld) [Volume fraction] 29.5 % Low 39-49 [facility] Comment on above: Performed By: #### H RTN #### [facility] ([id number]) [address] [place] [address] Hemoglobin (Bld) [Mass/Vol] 10.4 g/dL Low 13.0-17.0 [facility] Comment on above: Performed By: #### H RTN #### [facility] ([id number]) [address] [place] [address] MCH (RBC) [Entitic mass] 31.3 pg Normal 27-34 [facility] Comment on above: Performed By: #### H RTN #### [facility] ([id number]) [address] [place] [address] MCHC (RBC) [Mass/Vol] 35.1 g/dL Normal 32-36 [facility] Comment on above: Performed By: #### H RTN #### [facility] ([id number]) [address] [place] [address] MCV (RBC) [Entitic vol] 89 fL Normal 80-100 [facility] Comment on above: Performed By: #### H RTN #### [facility] ([id number]) [address] [place] [address] Platelet mean volume (Bld) [Entitic vol] 7.8 fL Normal 7-12 [facility] Comment on above: Performed By: #### H RTN #### [facility] ([id number]) [address] [place] [address] Platelets (Bld) [#/Vol] 147 10*3/uL Low 150-450 [facility] Comment on above: Performed By: #### H RTN #### [facility] ([id number]) [address] [place] [address] RBC COUNT 3.31 X10E12/L Low 4.10-5.70 [facility] Comment on above: Performed By: #### H RTN #### [facility] ([id number]) [address] [place] [address] WBC (Bld) [#/Vol] 8.8 10*3/uL Normal 4.0-11.[address] [facility] Comment on above: Performed By: #### H RTN #### [facility] ([id number]) [address] [place] [address] Clinical Pathologyon 023 Clinical Pathology Normal [facility] Comment on above: Result Comment: [facility] [address] [place] [address] Clinical Pathology Report Patient Name:FREDI CRYSTAL:1955 (Age: 67)Gender:MTaken:07/23/2023Reported:07/26/2023hysician(s):Ed Russo CNP ([phone])Copy To: Rec. #:[id number]: #[id number] Final Pathologic Diagnosis Polyclonal pattern, no monoclonal bands. Elevated free kappa and lambda light chains suggestive of renal impairment. Report Electronically Signed Out sps/07/26/2023Suhenrietta Curran MD Interpretation performed at [facility], [address] [place] [address], License number: [id number]. Clinical History C64.9, N28.89, R94.4 SERUM IEP SAMPLE NUMBER: [id number] IMMUNOGLOBULIN LEVELS (mg/dL): IgG : 354 IgA : 37 IgM : 232 [place]: 7.39 Free Lambda: 3.42 [place]/Lambda ratio: 2.16 Specimen(s) Received Serum IEP Fee Codes(s): 1; 18812-21 Creatinine (U) [Mass/Vol]on 07-23-2023 URINE CREATININE,RDM 86.51 mg/dL [facility] Comment on above: Performed By: #### 2 161-8, 2955-3, 2888-6 ####[facility] ([id number])[address] [place] [address], [address] [place] [address] DNA double strand Ab Qn (S)o n 07-23-2023 DOUBLE STRANDED DNA <1 Normal <5 [facility] Comment on above: Result Comment: Interpretation-------- <5 Negative 5-9 Indeterminate >9 Positive Performed By: #### C 34, [place], 65880-2, SPE, AHP, 5193-8, 68841-3, 5130-0, 6968-2, 29423-4, 6969-0 ####[facility] ([id number])[address] [facility], [address] [place] [address] Glomerular basement membrane IgG Qn (S)on 07-23-2023 GBM IgG Ab <0.2 Normal <1.0 [facility] Comment on above: Performed By: #### C 34, [place], 87323-3, SPE, AHP, 5193-8, 34412-3, 5130-0, 6968-2, 82236-6, 6969-0 ####[facility] ([id number])[address] [facility], [address] [place] [address] Glucose Glucometer (BldC) [M ass/Vol]on 07-23-2023 Glucose [Mass/Vol] 85 mg/dL Normal 65-[address] [facility] Glucose [Mass/Vol] 138 mg/dL High 65-[address] [facility] Glucose [Mass/Vol] 148 mg/dL High 65-[address] [facility] Glucose [Mass/Vol] 145 mg/dL High 65-[address] [facility] Glucose [Mass/Vol] 154 mg/dL High 65-[address] [facility] HBV surface Ab IA Qnon 07-23 Anti HBs quant. <8.00 Normal [facility] Comment on above: Result Comment: Vacc inated: >=12mIU/mL, Positive (Immune) Unvaccinated: <8mIU/mL, Negative (Not Immune) 8-11.99 mIU/mL: Indeterminate, (Considered Not Immune) Performed By: #### H RTN #### [facility] ([id number]) [address] [place] [address] IMMUNOELECTROPHORESIS FOR TH ERAPY MONITORINGon 07-23-2023 FREE JANESSA/LAMBD RATIO 2.16 High 0.26-1.65 [facility] Comment on above: Performed By: #### H RTN #### [facility] ([id number]) [address] [place] [address] FREE KAPPA LT CHAINS 7.39 mg/dL High 0.33-1.94 [facility] Comment on above: Performed By: #### H RTN #### [facility] ([id number]) [address] [place] [address] FREE LAMBDA LT CHAINS 3.42 mg/dL High 0.57-2.63 [facility] Comment on above: Performed By: #### H RTN #### [facility] ([id number]) [address] [place] [address] IgA [Mass/Vol] 37 mg/dL Low 68-378 [facility] Comment on above: Performed By: #### H RTN #### [facility] ([id number]) [address] [place] [address] IgG [Mass/Vol] 354 mg/dL Low 635-1741 [facility] Comment on above: Performed By: #### H RTN #### [facility] ([id number]) [address] [place] [address] IgM [Mass/Vol] 232 mg/dL Normal 45-281 [facility] Comment on above: Performed By: #### H RTN #### [facility] ([id number]) [address] [place] [address] IMMUNE PROFILE INTERP SEE SEPARATE REPORT Normal [facility] Comment on above: Performed By: #### H RTN #### [facility] ([id number]) [address] [facility] [place] [address] IR CICV NON-TUNLD > 5YRSon 1 IR CICV NON-TUNLD > 5YRS IR CICV NON-TUNLD > 5YRS CLINICAL INDICATION: Renal failure. Need for central venous access for hemodialysis. COMPARISON: None TECHNIQUE: Procedure performed by Interventional Radiologist Ari Xavier M.D. Fluoroscopic time: 0.1 minutes Reference air Kerma: 1.3mGy Number of fluoroscopic images: 2 CONSENT: The reason of the procedure was discussed with the patient. The procedure, expectations, risks, benefits, options and alternatives were discussed. All of the patient?s questions were answered. The patient understands that the results cannot be guaranteed. The procedure is indicated and the risks are acceptable. Consent was obtained. PROCEDURE: 1. Ultrasound-guided right internal jugular vein access. The vein is patent and compressible. Real-time ultrasound guidance was performed during micropuncture needle access into the vein. Permanent ultrasound images stored on PACS. 2. Placement of a right-sided IJ 15 cm trialysis catheter. Details of procedure: Maximum sterile barrier techniques utilized. Sterile barrier techniques included the use of a sterile cap, mask, sterile gown, sterile gloves, and sterile full body drapes. During ultrasound guidance, sterile gel and sterile probe cover used. Patient placed in the supine position. The right neck was prepped and draped in the usual sterile fashion. Under continuous ultrasound guidance, a patent and compressible right internal jugular vein was accessed with a micropuncture needle. Permanent ultrasound images were stored in PACS. A microwire was placed into the right atrium. A skin shonda was made. The needle was removed. A micropuncture sheath was placed. The inner dilator and wire were removed. An Amplatz wire was advanced into the IVC. The micropuncture sheath was then removed. The track was dilated. A 15 cm trialysis catheter was advanced over the wire into position. The wire was removed. 2-0 Prolene suture was used to secure the line to the skin. All the lumens aspirated and flushed appropriately. Sterile caps applied. A sterile dressing was applied. Patient tolerated the procedure well and there were no immediate complications. FINDINGS: 1. Patent and compressible right internal jugular vein. Permanent ultrasound images stored in PACS. 2. Satisfactory fluoroscopic guided placement of a right-sided IJ 15 cm trialysis catheter. Catheter tip is at the atriocaval junction and functions appropriately. Catheter is ready for use. IMPRESSION: Successful ultrasound and fluoroscopic guided placement of a right-sided IJ 15 cm trialysis catheter. Catheter is ready for use. Finalized by Ari Xavier MD on 07/23/2023 2:06 PM Normal [facility] Myeloperoxidase Ab Qn (S)on 07-23-2023 Myeloperoxidase Ab <0.2 Normal <1.[address] [facility] Comment on above: Performed By: #### C 34, IMEL, 43074-6, SPE, AHP, 5193-8, 24335-6, 5130-0, 6968-2, 44044-0, 6969-0 ####[facility] ([id number])[address], [address] [place] [address] Nuclear Ab IA Ql (S)on 07-23 PIA Screen w/reflex Negative Normal NEG [facility] Comment on above: Result Comment: Testing performed using multiplex flow immunoassay. Eleven different antigens associated with systemic autoimmune diseases (dsDNA,Sm,Sm/GAS PLANT DISPATCHER,GAS PLANT DISPATCHER,Chromatin, SSA,SSB,Dilia-1,Scl70,Ribo P,Centromere B) are included in this screening test. Performed By: #### C 34, IMEL, 33637-4, SPE, AHP, 5193-8, 04842-1, 5130-0, 6968-2, 15836-9, 6969-0 ####[facility] ([id number])[address], [address] [place] [address] Protein (U) [Mass/Vol]on RANDOM URINE PROTEIN 4080 mg/L High <120 [facility] Comment on above: Performed By: #### 2 161-8, 2955-3, 2888-6 ####[facility] ([id number])[address], [address], [place] [address] Proteinase 3 Ab Qn (S)on Proteinase 3 IgG Ab <0.2 Normal <1.0 [facility] Comment on above: Performed By: #### C 34, IMEL, 61303-6, SPE, AHP, 5193-8, 75254-1, 5130-0, 6968-2, 64753-3, 6969-0 ####[facility] ([id number])[address] [place] [address] Rheumatoid factor Nephelomet ry Qn (S)on 07-23-2023 RHEUMATOID FACTOR <10 Normal <20 [facility] Comment on above: Performed By: #### H RTN #### [facility] ([id number]) [address] [place] [address] SERUM PROTEIN ELECTROPHORESI Son 07-23-2023 Albumin [Mass/Vol] 2.8 g/dL Low 3.4-5.[address] [facility] Comment on above: Performed By: #### H RTN #### [facility] ([id number]) [address] [place] [address] ALPHA 1 GLOBULIN 0.4 g/dL Normal 0.1-0.4 [facility] Comment on above: Performed By: #### H RTN #### [facility] ([id number]) [address] [place] [address] ALPHA 2 GLOBULIN 0.5 g/dL Normal 0.4-1.1 [facility] Comment on above: Performed By: #### H RTN #### [facility] ([id number]) [address] [place] [address] BETA GLOBULIN 0.5 g/dL Normal 0.5-1.2 [facility] Comment on above: Performed By: #### H RTN #### [facility] ([id number]) [address] [place] [address] GAMMA GLOBULIN 0.4 g/dL Low 0.5-1.6 [facility] Comment on above: Performed By: #### H RTN #### [facility] ([id number]) [address] [place] [address] PROT. ELECTROPHORESIS INTERP Unremarkable protein distribution, no monoclonal bands. Normal [facility] Comment on above: Performed By: #### H RTN #### [facility] ([id number]) [address] [place] [address] Protein [Mass/Vol] 4.7 g/dL Low 6.0-8.[address] [facility] Comment on above: Performed By: #### H RTN #### [facility] ([id number]) [address] [place] [address] URINALYSISon 07-23-2023 Bilirubin Ql (U) Negative Normal NEG [facility] BLOOD/HGB Large Abnormal NEG [facility] Color (U) YELLOW Normal YELLOW [facility] Glucose Ql (U) 70 mg/dL Abnormal NEG [facility] GRANULAR CASTS 3 /lpf High 0 [facility] Ketones Ql (U) Trace Abnormal NEG [facility] Leukocyte esterase Test strip Ql (U) Trace Abnormal NEG [facility] MUCOUS PRESENT Abnormal NONE [facility] Nitrite Ql (U) Negative Normal NEG [facility] pH (U) 6.0 [pH] Normal 5.0-8.5 [facility] Protein Ql (U) 300 mg/dL Abnormal NEG [facility] R.B.CELLS 118 /hpf High 0-5 [facility] Specific gravity (U) [Rel density] 1.019 Normal 1.003-1.03 5 [facility] SQUAMOUS EPITHELIUM <1 Normal 0-5 [facility] TURBIDITY HAZY Abnormal CLEAR [facility] Urobilinogen (U) [Mass/Vol] mg/dL Normal <1.1 [facility] W.B.CELLS 20 /hpf High 0-5 [facility] URINE SODIUM,RANDOMon 2022 Sodium (U) [Moles/Vol] 47 mmol/L Normal Pr [facility] Comment on above: Performed By: #### 2 161-8, 2955-3, 2888-6 ####[facility] ([id number])[address], [address], [place] [address] BASIC METABOLIC PANLon 07-22 Anion gap [Moles/Vol] 10 mmol/L Normal 5-15 [facility] Comment on above: Performed By: #### B MP, CBC, 32629-8, FEPR, 2276-4, 2284-8, 2132-03 #### [facility] ([id number]) [address], [address] [place] [address] Calcium [Mass/Vol] 7.6 mg/dL Low 8.5-10.[address] [facility] Comment on above: Performed By: #### B MP, CBC, 01622-8, FEPR, 6-4, 228-8, 2132-03 #### [facility] ([id number]) [address], [address] [place] [address] Chloride [Moles/Vol] 106 mmol/L Normal 98-109 [facility] Comment on above: Performed By: #### B MP, CBC, 74912-3, FEPR, 2276-4, 228-8, 2132-03 #### [facility] ([id number]) [address], [address] [place] [address] CO2 [Moles/Vol] 18 mmol/L Low 22-32 [facility] Comment on above: Performed By: #### B MP, CBC, 61330-4, FEPR, 2276-4, 2284-8, 2132-03 #### [facility] ([id number]) [address], [address] [place] [address] Creatinine [Mass/Vol] 3.78 mg/dL High 0.60-1.30 [facility] Comment on above: Result Comment: METH OD TRACEABLE TO IDMS STANDARD Performed By: #### B MP, CBC, 32617-0, FEPR, 2276-4, 2283-8, 2132-03 #### [facility] ([id number]) [address], [address] [place] [address] GFR/1.73 sq M.predicted among non-blacks MDRD (S/P/Bld) [Vol rate/Area] 17 mL/min/{1.73_m2} Low >59 [facility] Comment on above: Result Comment: Reported eGFR is based on the CKD-EPI 2020 equation that does not use a race coefficient. Performed By: #### B MP, CBC, 89255-9, FEPR, 6-4, 2283-8, 2132-03 #### [facility] ([id number]) [address], [address] [place] [address] Glucose [Mass/Vol] 176 mg/dL High 65-[address] [facility] Comment on above: Performed By: #### B MP, CBC, 38524-0, FEPR, 2275-4, 2284-02, 2132-03 #### [facility] ([id number]) [address], [address] [place] [address] Potassium [Moles/Vol] 5.0 mmol/L Normal 3.5-5.0 [facility] Comment on above: Performed By: #### B MP, CBC, 03979-3, FEPR, 2276-4, 2283-8, 2132-03 #### [facility] ([id number]) [address], [address] [place] [address] Sodium [Moles/Vol] 134 mmol/L Normal 134-[address] [facility] Comment on above: Performed By: #### B MP, CBC, 98245-0, FEPR, 2276-4, 228-8, 2132-03 #### [facility] ([id number]) [address], [address] [place] [address] Urea nitrogen [Mass/Vol] 43 mg/dL High 5-27 [facility] Comment on above: Performed By: #### B MP, CBC, 49761-0, FEPR, 2276-4, 2284-8, 2131- #### [facility] ([id number]) [address], [address] [place] [address] COMPLETE BLOOD COUNTon 07-22 Erythrocyte distribution width (RBC) [Ratio] 13.1 % Normal 11.5-15.0 [facility] Comment on above: Performed By: #### A FAB5 #### [facility] ([id number]) [address] [place] [address] Hematocrit (Bld) [Volume fraction] 31.8 % Low 39-49 [facility] Comment on above: Performed By: #### A FAB5 #### [facility] ([id number]) [address] [place] [address] Hemoglobin (Bld) [Mass/Vol] 10.9 g/dL Low 13.0-17.0 [facility] Comment on above: Performed By: #### A FAB5 #### [facility] ([id number]) [address] [place] [address] MCH (RBC) [Entitic mass] 31.1 pg Normal 27-34 [facility] Comment on above: Performed By: #### A FAB5 #### [facility] ([id number]) [address] [place] [address] MCHC (RBC) [Mass/Vol] 34.4 g/dL Normal 32-36 [facility] Comment on above: Performed By: #### A FAB5 #### [facility] ([id number]) [address] [place] [address] MCV (RBC) [Entitic vol] 90 fL Normal 80-100 P [facility] Comment on above: Performed By: #### A FAB5 #### [facility] ([id number]) [address] [place] [address] Platelet mean volume (Bld) [Entitic vol] 7.4 fL Normal 7-12 [facility] Comment on above: Performed By: #### A FAB5 #### [facility] ([id number]) [address] [place] [address] Platelets (Bld) [#/Vol] 178 10*3/uL Normal 150-450 [facility] Comment on above: Performed By: #### A FAB5 #### [facility] ([id number]) [address] [place] [address] RBC COUNT 3.52 X10E12/L Low 4.10-5.70 [facility] Comment on above: Performed By: #### A FAB5 #### [facility] ([id number]) [address] [place] [address] WBC (Bld) [#/Vol] 10.9 10*3/uL Normal 4.0-11.0 [facility] Comment on above: Performed By: #### A FAB5 #### [facility] ([id number]) [address] [place] [address] FERRITINon 07-22-2023 Ferritin [Mass/Vol] 68 ng/mL Normal 24-336 [facility] Comment on above: Performed By: #### A FAB5 #### [facility] ([id number]) [address] [place] [address] FLUID CREATININEon Creatinine [Mass/Vol] 4.00 mg/dL Normal [facility] Comment on above: Result Comment: The reference interval and other method performance specifications are unavailable for this body fluid. Comparison of this result to serum or plasma is recommended. Performed By: #### A FAB5 #### [facility] ([id number]) [address] [place] [address] CRET SPECIMEN TYPE ASPIRATE Normal [facility] Comment on above: Result Comment: FARHAT D RAIN LT KIDNEY Performed By: #### A FAB5 #### [facility] ([id number]) [address] [place] [address] Folate [Mass/Vol]on 07-22-20 FOLIC ACID 7.8 ng/mL Normal >5.8 [facility] Comment on above: Result Comment: NEW REFERENCE RANGE Performed By: #### A FAB5 #### [facility] ([id number]) [address] [place] [address] Glucose Glucometer (BldC) [M ass/Vol]on 07-22-2023 Glucose [Mass/Vol] 172 mg/dL High 65-[address] [facility] IRON PROFILEon 07-22-2023 Iron [Mass/Vol] 22 ug/dL Low 50-212 [facility] Comment on above: Performed By: #### A FAB5 #### [facility] ([id number]) [address] [place] [address] IRON BINDING 279 ug/dL Normal 250-425 [facility] Comment on above: Performed By: #### A FAB5 #### [facility] ([id number]) [address] [place] [address] IRON SATURATION 8 % SATURATION Low 20-50 [facility] Comment on above: Performed By: #### A FAB5 #### [facility] ([id number]) [address] [place] [address] MAGNESIUMon 07-22-2023 Magnesium [Mass/Vol] 2.1 mg/dL Normal 1.8-2.6 [facility] Comment on above: Performed By: #### A FAB5 #### [facility] ([id number]) [address] [place] [address] Magnesium Ionized ISE (Bld) [Moles/Vol]on 07-22-2023 Magnesium [Moles/Vol] 0.56 mmol/L Normal 0.45-0.74 Pr [facility] Comment on above: Result Comment: NEW REFERENCE RANGE Performed By: #### A FAB5 #### [facility] ([id number]) [address] [place] [address] VITAMIN B12on 07-22-2023 Cobalamin (Vitamin B12) [Mass/Vol] 283 pg/mL Normal 180-914 [facility] Comment on above: Performed By: #### A FAB5 #### [facility] ([id number]) [address] [place] [address] ABG RAPID K GLU HHon 023 WILLARD'S TEST Normal [facility] Comment on above: Performed By: #### H RTN #### [facility] ([id number]) [address] [place] [address] BASE,DEFICIT 4.8 MMOL/L High 0.0-2.0 [facility] Comment on above: Performed By: #### H RTN #### [facility] ([id number]) [address] [place] [address] Body temperature 98.6 [degF] Normal 37.0 [facility] Comment on above: Performed By: #### H RTN #### [facility] ([id number]) [address] [place] [address] Glucose [Mass/Vol] 138 mg/dL High 65-[address] [facility] Comment on above: Performed By: #### H RTN #### [facility] ([id number]) [address] [place] [address] HCO3 (Bld) [Moles/Vol] 20.1 mmol/L Low 22-26 P [facility] Comment on above: Performed By: #### H RTN #### [facility] ([id number]) [address] [place] [address] Hematocrit (Bld) [Volume fraction] 37 % Low 39-49 [facility] Comment on above: Performed By: #### H RTN #### [facility] ([id number]) [address] [place] [address] Hemoglobin (Bld) [Mass/Vol] 12.1 g/dL Low 13.0-17.0 [facility] Comment on above: Performed By: #### H RTN #### [facility] ([id number]) [address] [place] [address] INSP. O2 CONC. 100 % Normal [facility] Comment on above: Performed By: #### H RTN #### [facility] ([id number]) [address] [place] [address] Oxygen (Bld) [Partial pressure] 179 mm[Hg] High 80-100 [facility] Comment on above: Performed By: #### H RTN #### [facility] ([id number]) [address] [place] [address] Oxygen saturation in Blood 100.4 % Normal >90 [facility] Comment on above: Performed By: #### H RTN #### [facility] ([id number]) [address] [place] [address] PCO2 33.0 MMHG Low 35-45 [facility] Comment on above: Performed By: #### H RTN #### [facility] ([id number]) [address] [place] [address] pH (Bld) 7.393 [pH] Normal 7.350-7.45 0 [facility] Comment on above: Performed By: #### H RTN #### [facility] ([id number]) [address] [place] [address] Potassium [Moles/Vol] 3.3 mmol/L Low 3.5-5.0 [facility] Comment on above: Performed By: #### H RTN #### [facility] ([id number]) [address] [place] [address] SAMPLE SITE ANDRAE Normal [facility] Comment on above: Performed By: #### H RTN #### [facility] ([id number]) [address] [place] [address] SAMPLE TYPE Arterial Normal [facility] Comment on above: Performed By: #### H RTN #### [facility] ([id number]) [address] [place] [address] WILLARD'S TEST Normal [facility] Comment on above: Performed By: #### H RTN #### [facility] ([id number]) [address] [place] [address] BASE,DEFICIT 0.8 MMOL/L Normal 0.0-2.0 [facility] Comment on above: Performed By: #### H RTN #### [facility] ([id number]) [address] [place] [address] Body temperature 98.6 [degF] Normal 37.0 [facility] Comment on above: Performed By: #### H RTN #### [facility] ([id number]) [address] [place] [address] Glucose [Mass/Vol] 212 mg/dL High 65-[address] [facility] Comment on above: Performed By: #### H RTN #### [facility] ([id number]) [address] [place] [address] HCO3 (Bld) [Moles/Vol] 24.4 mmol/L Normal 22-26 P [facility] Comment on above: Performed By: #### H RTN #### [facility] ([id number]) [address] [place] [address] Hematocrit (Bld) [Volume fraction] 42 % Normal 39-49 [facility] Comment on above: Performed By: #### H RTN #### [facility] ([id number]) [address] [place] [address] Hemoglobin (Bld) [Mass/Vol] 13.8 g/dL Normal 13.0-17.0 [facility] Comment on above: Performed By: #### H RTN #### [facility] ([id number]) [address] [place] [address] INSP. O2 CONC. 100 % Normal [facility] Comment on above: Performed By: #### H RTN #### [facility] ([id number]) [address] [place] [address] Oxygen (Bld) [Partial pressure] 196 mm[Hg] High 80-100 [facility] Comment on above: Performed By: #### H RTN #### [facility] ([id number]) [address] [place] [address] Oxygen saturation in Blood 100.3 % Normal >90 [facility] Comment on above: Performed By: #### H RTN #### [facility] ([id number]) [address] [place] [address] PCO2 41.9 MMHG Normal 35-45 [facility] Comment on above: Performed By: #### H RTN #### [facility] ([id number]) [address] [place] [address] pH (Bld) 7.374 [pH] Normal 7.350-7.45 0 [facility] Comment on above: Performed By: #### H RTN #### [facility] ([id number]) [address] [place] [address] Potassium [Moles/Vol] 5.0 mmol/L Normal 3.5-5.0 [facility] Comment on above: Performed By: #### H RTN #### [facility] ([id number]) [address] [place] [address] SAMPLE SITE ANDRAE Normal [facility] Comment on above: Performed By: #### H RTN #### [facility] ([id number]) [address] [place] [address] SAMPLE TYPE Arterial Normal [facility] Comment on above: Performed By: #### H RTN #### [facility] ([id number]) [address] [place] [address] BASIC METABOLIC PANLon 07-21 Anion gap [Moles/Vol] 5 mmol/L Normal 5-15 [facility] Comment on above: Performed By: #### C HANNAH BMP, , 2776-07 #### [facility] ([id number]) [address], [address] [place] [address] Calcium [Mass/Vol] 8.0 mg/dL Low 8.5-10.[address] [facility] Comment on above: Performed By: #### Kathleen YOUNG, BMP, , 2776-07 #### [facility] ([id number]) [address], [address] [place] [address] Chloride [Moles/Vol] 109 mmol/L Normal 98-109 [facility] Comment on above: Performed By: #### C BC, BMP, , 2776-07 #### [facility] ([id number]) [address], [address] [place] [address] CO2 [Moles/Vol] 25 mmol/L Normal 22-32 [facility] Comment on above: Performed By: #### Kathleen BC, BMP, , 2776-07 #### [facility] ([id number]) [address], [address] [place] [address] Creatinine [Mass/Vol] 1.92 mg/dL High 0.60-1.30 [facility] Comment on above: Result Comment: METH OD TRACEABLE TO IDMS STANDARD Performed By: #### C SEBASTIAN YOUNG, , 2776-07 #### [facility] ([id number]) [address], [address] [place] [address] GFR/1.73 sq M.predicted among non-blacks MDRD (S/P/Bld) [Vol rate/Area] 38 mL/min/{1.73_m2} Low >59 [facility] Comment on above: Result Comment: Reported eGFR is based on the CKD-EPI 2020 equation that does not use a race coefficient. Performed By: #### C SEBASTIAN YOUNG, , 2776-07 #### [facility] ([id number]) [address], [address] [place] [address] Glucose [Mass/Vol] 151 mg/dL High 65-[address] [facility] Comment on above: Performed By: #### SEBASTIAN MARTIN, , 2776-07 #### [facility] ([id number]) [address], [address] [place] [address] Potassium [Moles/Vol] 4.2 mmol/L Normal 3.5-5.0 [facility] Comment on above: Performed By: #### SEBASTIAN MARTIN, , 2776-07 #### [facility] ([id number]) [address], [address] [place] [address] Sodium [Moles/Vol] 139 mmol/L Normal 134-[address] [facility] Comment on above: Performed By: #### SEBASTIAN MARTIN, , 2776-07 #### [facility] ([id number]) [address], [address] [place] [address] Urea nitrogen [Mass/Vol] 25 mg/dL Normal 5-27 [facility] Comment on above: Performed By: #### C BC, BMP, , 2776-07 #### [facility] ([id number]) [address], [address] [place] [address] COMPLETE BLOOD COUNTon 07-21 Erythrocyte distribution width (RBC) [Ratio] 13.1 % Normal 11.5-15.0 [facility] Comment on above: Performed By: #### Kathleen BC, BMP, , 2776-07 #### [facility] ([id number]) [address], [address] [place] [address] Hematocrit (Bld) [Volume fraction] 38.1 % Low 39-49 [facility] Comment on above: Performed By: #### Kathleen YOUNG, BMP, , 2776-07 #### [facility] ([id number]) [address], [address] [place] [address] Hemoglobin (Bld) [Mass/Vol] 13.1 g/dL Normal 13.0-17.0 [facility] Comment on above: Performed By: #### Kathleen YOUNG, BMP, , 2776-07 #### [facility] ([id number]) [address], [address] [place] [address] MCH (RBC) [Entitic mass] 30.8 pg Normal 27-34 [facility] Comment on above: Performed By: #### Kathleen BC, BMP, , 2776-07 #### [facility] ([id number]) [address], [address] [place] [address] MCHC (RBC) [Mass/Vol] 34.5 g/dL Normal 32-36 [facility] Comment on above: Performed By: #### Kathleen BC, BMP, , 2776-07 #### [facility] ([id number]) [address], [address] [place] [address] MCV (RBC) [Entitic vol] 89 fL Normal 80-100 [facility] Comment on above: Performed By: #### SEBASTIAN MARTIN, , 2776-07 #### [facility] ([id number]) [address], [address] [place] [address] Platelet mean volume (Bld) [Entitic vol] 7.6 fL Normal 7-12 [facility] Comment on above: Performed By: #### Kathleen YOUNG, SEBASTIAN, , 2776-07 #### [facility] ([id number]) [address], [address] [place] [address] Platelets (Bld) [#/Vol] 196 10*3/uL Normal 150-450 [facility] Comment on above: Performed By: #### SEBASTIAN MARTIN, , 2776-07 #### [facility] ([id number]) [address], [address] [place] [address] RBC COUNT 4.26 X10E12/L Normal 4.10-5.70 [facility] Comment on above: Performed By: #### Kathleen YOUNG, SEBASTIAN, , 2776-07 #### [facility] ([id number]) [address], [address] [place] [address] WBC (Bld) [#/Vol] 13.9 10*3/uL High 4.0-11.0 [facility] Comment on above: Performed By: #### SEBASTIAN MARTIN, , 2776-07 #### [facility] ([id number]) [address] [place] [address] Glucose Glucometer (BldC) [M ass/Vol]on 07-21-2023 Glucose [Mass/Vol] 138 mg/dL High 65-[address] [facility] Glucose [Mass/Vol] 104 mg/dL High 65-[address] [facility] MAGNESIUMon 07-21-2023 Magnesium [Mass/Vol] 1.5 mg/dL Low 1.8-2.6 [facility] Comment on above: Performed By: #### C HANNAH, BMP, , 2777-1 #### [facility] ([id number]) [address], [address] [place] [address] PHOSPHORUSon 07-21-2023 Phosphate [Mass/Vol] 3.0 mg/dL Normal 2.4-4.9 [facility] Comment on above: Performed By: #### C HANNAH, BMP, , 2777-1 #### [facility] ([id number]) [address], [address] [place] [address] RAPID CARDIACon 07-21-2023 WILLARD'S TEST Normal [facility] Comment on above: Performed By: #### A FAB5 #### [facility] ([id number]) [address] [place] [address] BASE,DEFICIT 0.3 MMOL/L Normal 0.0-2.0 [facility] Comment on above: Performed By: #### A FAB5 #### [facility] ([id number]) [address] [place] [address] Body temperature 98.6 [degF] Normal 37.0 [facility] Comment on above: Performed By: #### A FAB5 #### [facility] ([id number]) [address] [place] [address] Glucose [Mass/Vol] 126 mg/dL High 65-[address] [facility] Comment on above: Performed By: #### A FAB5 #### [facility] ([id number]) [address] [place] [address] HCO3 (Bld) [Moles/Vol] 24.6 mmol/L Normal 22-26 P [facility] Comment on above: Performed By: #### A FAB5 #### [facility] ([id number]) [address] [place] [address] Hematocrit (Bld) [Volume fraction] 41 % Normal 39-49 [facility] Comment on above: Performed By: #### A FAB5 #### [facility] ([id number]) [address] [place] [address] Hemoglobin (Bld) [Mass/Vol] 13.4 g/dL Normal 13.0-17.0 [facility] Comment on above: Performed By: #### A FAB5 #### [facility] ([id number]) [address] [place] [address] INSP. O2 CONC. 100 % Normal [facility] Comment on above: Performed By: #### A FAB5 #### [facility] ([id number]) [address] [place] [address] IONIZED CALCIUM 4.7 mg/dL Normal 4.5-5.3 [facility] Comment on above: Performed By: #### A FAB5 #### [facility] ([id number]) [address] [place] [address] Oxygen (Bld) [Partial pressure] 200 mm[Hg] High 80-100 [facility] Comment on above: Performed By: #### A FAB5 #### [facility] ([id number]) [address] [place] [address] Oxygen saturation in Blood 100.6 % Normal >90 [facility] Comment on above: Performed By: #### A FAB5 #### [facility] ([id number]) [address] [place] [address] PCO2 40.1 MMHG Normal 35-45 [facility] Comment on above: Performed By: #### A FAB5 #### [facility] ([id number]) [address] [place] [address] pH (Bld) 7.397 [pH] Normal 7.350-7.45 0 [facility] Comment on above: Performed By: #### A FAB5 #### [facility] ([id number]) [address] [place] [address] Potassium [Moles/Vol] 3.5 mmol/L Normal 3.5-5.0 [facility] Comment on above: Performed By: #### A FAB5 #### [facility] ([id number]) [address] [place] [address] SAMPLE SITE ANDRAE Normal [facility] Comment on above: Performed By: #### A FAB5 #### [facility] ([id number]) [address] [place] [address] SAMPLE TYPE Arterial Normal [facility] Comment on above: Performed By: #### A FAB5 #### [facility] ([id number]) [address] [place] [address] Surgical Pathologyon 023 Surgical Pathology Normal [facility] Comment on above: Result Comment: [facility] [address] [place] [address] Surgical Pathology Consultation Patient Name:FREDI CRYSTAL:1955 (Age: 67)Gender:MTaken:07/21/2023Reported:08/03/2023hysician(s):Jelly Telles M.D. ([phone])Copy To: Rec. #:[id number]: #[id number] Final Pathologic Diagnosis 1. Right renal mass for frozen #1: Benign renal parenchyma with adjacent fibroadipose tissue, showing patchy prominent lymphoid aggregates with focal reactive hyperplasia. No evidence of tumor. 2. Right renal mass for frozen #2: Benign renal parenchyma with with adjacent fibroadipose tissue, demonstrating patchy prominent lymphoid aggregates with focal reactive hyperplasia. No evidence of tumor. 3. Right kidney, partial nephrectomy: CLEAR-CELL RENAL CELL CARCINOMA, WHO/ISUP G2 (2.5 cm), showing organizing hemorrhage and hyalinizing fibrosis, and prior biopsy related reactive changes. Tumor is confined to renal parenchyma with no evidence of invasion beyond the capsule into perinephric fat. No lymphovascular invasion identified. Tumor focally extends to within 1 mm of surgical resection margin. Remainder of kidney showing mild to moderate chronic pyelonephritis adjacent to tumor, and patchy prominent lymphoid aggregates with focal reactive hyperplasia. CANCER CASE SUMMARY SPECIMEN: Procedure: Partial nephrectomy Specimen laterality: Right TUMOR: Tumor focality: Unifocal Tumor size: Greatest dimension: 2.5 cm Histologic type: Clear-cell renal cell carcinoma Histologic grade (WHO/ISUP grade): G2 Tumor extent: Limited to kidney Sarcomatoid features: Not identified Rhabdoid features: Not identified Tumor necrosis: Not identified MARGINS: All margins negative for invasive carcinoma Margin status: Tumor extends to within 1 mm of surgical resection margin REGIONAL LYMPH NODES: Regional lymph node status: Not applicable (no regional lymph nodes submitted or found) DISTANT METASTASIS: Not applicable PATHOLOGIC STAGE CLASSIFICATION (pTNM, AJCC 8th Edition): TNM descriptors: Not applicable Primary tumor (pT): pT1a Regional lymph nodes (pN): pN not assigned Distant metastasis (pM): Not applicable Additional findings in nonneoplastic kidney: Chronic pyelonephritis adjacent to tumor; patchy, multifocal prominent lymphoid aggregate showing focal reactive hyperplasia v.4.1.0.0/gp/4.7.23 Report Electronically Signed Out ao/08/03/2023john Arango MD Interpretation performed at [facility], [address] [place], [place] [address], License number: [id number]. Clinical History Renal cell carcinoma. Gross Description 1. Received fresh for frozen section labeled SMILEY, right renal mass is an ovoid portion of encapsulated renal tissue, 2.7 x 1.7 x 0.6 cm. The capsular surface is bermeo-pink, membranous, smooth and glistening. The capsular surface is inked orange with the remainder of the specimen inked black. Serial sections reveal bermeo-brown, glistening and uniform cut surfaces. Switch Cleaner sections are submitted for frozen section as FSA. The remainder of the specimen is submitted for routine H&E processing in cassette A???B. (3, ns, [id number], FSA, A???B, m6) JG 2. Received fresh for frozen section labeled SMILEY right renal mass for frozen #2 is an ovoid domed portion of renal tissue, 3 x 2.5 x 1 cm, with a stripped portion of fibromembranous tissue, 2.5 x 2.3 x 0.3 cm. The convex surface is inked orange with the flattened surface inked black. Serial sections reveal bermeo-brown, glistening and uniform cut surfaces. The fibromembranous tissue is smooth and glistening on one surface, while the opposing surface is focally adhesed. Serial sections reveal bermeo-pink, glistening and uniform cut surfaces. A c s s representative section of the renal tissue is submitted for frozen section as FSA. The remainder of the renal tissue is submitted for routine H&E processing in cassette A???H with the fibromembranous tissue entirely submitted in cassette I???J. (11, ns, [id number], FSA, A???J, m6) J 3. Received fresh for intraoperative consult labeled SMILEY, right renal tumor is an ovoid domed portion of partially encapsulated renal parenchyma, 3.2 x 3 x 2.3 cm. The capsular surface is inked black with the surgical resection margin inked orange. Serial sections reveal a funes-bermeo to pink-yellow, focally erythematous, rubbery mass, measuring approximately 2.5 cm, that is situated adjacent (less than 0.1 cm) from the capsular surface, and surgical resection margin. The specimen is entirely submitted in cassette A???J. (10, ns, [id number], A???I, m6) [facility] [place]/07/21/2023O Intraoperative Consultation FROZEN SECTION DIAGNOSIS 1. Right renal mass Benign renal tissue with prominent lymphoid aggregates, 1 PIN-AO 2. Right renal mass #2 Benign renal tissue with prominent lymphoid aggregates, 1 PIN- (more content not included)... APTTon 12-23-2022 ACTIVATED PARTIAL THROMBOPLASTIN TIME IN PPP BY COAGULATION ASSAY 40.0 Seconds High 25.0-35.0 [facility] Comment on above: Result Comment: Clin ical significance of the APTT is questionable in the presence of heparin. Performed By: #### L [id number] #### [facility] [address] [place] [address] CBCon 12-23-2022 Erythrocyte distribution width (RBC) [Ratio] 12.4 % Normal 11.5-15.0 [facility] Comment on above: Performed By: #### L [id number] #### [facility] [address] [place] [address] ERYTHROCYTE MEAN CORPUSCULAR HEMOGLOBIN CONCENTRATION (G/DL) BY AUTOMATED 35.5 g/dL High 32.0-35.0 [facility] Comment on above: Performed By: #### L [id number] #### [facility] [address] [place] [place] [address] Hematocrit (Bld) [Volume fraction] 43.4 % Normal 39.0-55.0 [facility] Comment on above: Performed By: #### L [id number] #### [facility] [address] [place] [place] [address] Hemoglobin (Bld) [Mass/Vol] 15.4 g/dL Normal 13.0-17.0 [facility] Comment on above: Performed By: #### L [id number] #### [facility] [address] [place] [address] MCH (RBC) [Entitic mass] 29.9 pg Normal 27.0-33.0 [facility] Comment on above: Performed By: #### L [id number] #### [facility] [address] [place] [address] MCV (RBC) [Entitic vol] 84.3 fL Normal 82.0-98.0 [facility] Comment on above: Performed By: #### L [id number] #### [facility] [address] [place] [address] PLATELETS (10*3/UL) IN BLOOD AUTOMATED COUNT 170 10*3/uL Normal 150-400 [facility] Comment on above: Performed By: #### L [id number] #### [facility] [address] [place] [address] RBC (Bld) [#/Vol] 5.15 10*6/uL Normal 4.20-5.70 [facility] Comment on above: Performed By: #### L [id number] #### [facility] [address] [place] [address] WBC (Bld) [#/Vol] 9.84 10*3/uL Normal 4.00-10.60 [facility] Comment on above: Performed By: #### L [id number] #### [facility] [address] [place] [address] HISTOLOGY - TISSUE EXAMon LAB AP CASE REPORT Normal [facility] Comment on above: Result Comment: Surg ical Pathology Case: [id number] Authorizing Provider: Dylan Tapia MD Collected: 12/23/2022 1113 Ordering Location: [facility] CT Imaging Received: 12/23/2022 1254 Pathologist: Brent Wynn MD Specimen: Kidney, right [place] Performed By: #### L [id number] #### [facility] [address] [place] [address] LAB AP CLINICAL INFORMATION Order Diagnoses Normal [facility] Comment on above: Result Comment: N28. 89 - Renal mass [ICD-10-CM] N28.89 - Right renal mass [ICD-10-CM] Performed By: #### L [id number] #### [facility] [address] [place] [address] LAB AP DIAGNOSIS COMMENT Normal [facility] Comment on above: Result Comment: No r enal parenchyma identified. Clinical and radiologic correlation suggested. Immediate adequacy by imprint cytology (touch preparations) was performed by Dr. Brent Wynn. Pass #1: Adequate Pass #2: Adequate Pass #3: Inadequate Pass #4: Defer (formalin) When additional subsequent imprint cytologic evaluations are performed, they are done in order to obtain an adequate amount of c s s representative material of the tumor/lesion for diagnosis and/or ancillary studies. Performed By: #### L [id number] #### [facility] [address] [place] [address] LAB AP GROSS DESCRIPTION A. Kidney. [facility] Comment on above: Result Comment: Part A is received in formalin and labeled Fredi Crystal and right [place] kidney biopsy. It consists of 4 small, bermeo-pink fragments of soft tissue measuring 0.5 x 0.3 cm in aggregate. The specimen is submitted in toto in 1 cassette. Ruma Rouse, Pathologists' Drag Out Man Student Mathew Gandara, Pathologists' Drag Out Man Performed By: #### L [id number] #### [facility] [address] [place] [address] LAB AP MICROSCOPIC DESCRIPTION Microscopic examination performed. [facility] Comment on above: Performed By: #### L [id number] #### [facility] [address] [place] [address] LAB AP REPORT FINAL DIAGNOSIS NARRATIVE [facility] Comment on above: Result Comment: Shayla bruno, right, CT-guided needle core biopsy: Chronically inflamed reactive fibrovascular adipose tissue (see comment). No malignancy identified. Performed By: #### L [id number] #### [facility] [address] [place] [address] NON-SEASONING MIXER CYTOLOGY - CELLULAR EXAMon 12-23-2022 LAB AP CASE REPORT Normal [facility] Comment on above: Result Comment: Non- gynecologic Cytology Case: [id number] Authorizing Provider: Dylan Tapia MD Collected: 12/23/2022 1142 Ordering Location: [facility] CT Imaging Received: 12/23/2022 1153 Pathologist: Yodit Moran MD Specimen: Kidney, right [place] kidney mass Performed By: #### L [id number] #### [facility] [address] [place] [address] LAB AP CLINICAL INFORMATION Order Diagnoses [facility] Comment on above: Result Comment: N28. 89 - Renal mass [ICD-10-CM] N28.89 - Right renal mass [ICD-10-CM] Performed By: #### L AB13 #### [facility] [address] [place] [address] LAB AP DIAGNOSIS COMMENT Normal [facility] Comment on above: Result Comment: See also concurrent biopsy, [id number]. Performed By: #### L [id number] #### [facility] [address] [place] [address] LAB AP GROSS DESCRIPTION 30 mL CytoLyt with yellow, cloudy fluid . Normal [facility] Comment on above: Performed By: #### L [id number] #### [facility] [address] [place] [address] LAB AP REPORT FINAL DIAGNOSIS NARRATIVE Normal [facility] Comment on above: Result Comment: Jac leggett, right, fluid aspiration: - Negative for malignancy. - Consistent with cyst contents. Performed By: #### L AB13 #### [facility] [address] [place] [address] Orders Onlyon 12-23-2022 Orders Only [id number] René Crystal 1955 M Date Provider Department Center 12/23/2022 270-AMBROCIO RAYMUNDO [facility] CT Radiology No family history on file Normal [facility] PROTIME-INRon 12-23-2022 INR IN PPP BY COAGULATION ASSAY 1.02 Normal 0.90-1.10 [facility] Comment on above: Result Comment: ACCC P RECOMMENDED INR FOR WARFARIN THERAPY CONDITION INR PROPHYLAXIS OF VENOUS THROMBOSIS 2-3 (HIGH-RISK SURGERY) TREATMENT OF VENOUS THROMBOSIS 2-3 TREATMENT OF PULMONARY EMBOLISM 2-3 PREVENTION OF SYSTEMIC EMBOLISM: 2-3 ACUTE MYOCARDIAL INFARCTION TISSUE HEART VALVES VALVULAR HEART DISEASE ATRIAL FIBRILLATION RECURRENT SYSTEMIC EMBOLISM MECHANICAL HEART VALVE 2.5-3.5 FROM: ORAL ANTICOAGULANTS. MECHANISM OF ACTION, CLINICAL EFFECTIVENESS, AND OPTIMAL THERAPEUTIC RANGE. CHEST 1995;108:231S-246S. Performed By: #### L [id number] #### [facility] ([facility]) [address] [place] [address] PROTHROMBIN TIME (PT) IN PPP BY COAGULATION ASSAY 13.4 Seconds Normal 12.3-14.8 [facility] Comment on above: Performed By: #### L [id number] #### [facility] ([facility]) [address] [place] [address] CA 19-9on 12-04-2022 CA 19-9 15 U/mL Normal 0-35 [facility] Comment on above: Result Comment: HelloFax Electrochemiluminescence Immunoassay (ECLIA) . Values obtained with different assay methods or kits cannot be used interchangeably. Results cannot be interpreted as absolute evidence of the presence or absence of malignant disease. Performed By: #### C A 19,9 #### [facility] [address] [place], [place] [address] Dr. Sayra Duron US KIDNEYSon 12-04-2022 US KIDNEYS US KIDNEYS EXAM DATE: 12/04/2022 9:18 AM MDT COMPARISON: MRI abdomen without contrast 11/30/2022. CT abdomen and pelvis without contrast 10/28/2022. CT abdomen and pelvis with contrast 06/30/2019. INDICATION: Right kidney mass. TECHNIQUE: Real-time ultrasound scanning of the kidneys and bladder was performed by the clothing manager. Switch Cleaner static images are submitted for review. FINDINGS: Right Kidney: The right kidney measures 12.4 x 6.6 x 5.7 cm and has a volume of 244 mL. Normal echogenicity. No hydronephrosis. No shadowing calculi. A heterogeneously isoechoic solid renal mass measures 2.9 x 2.5 x 2.5 cm. Internal vascularity is noted within this mid/superior pole anterior renal mass on color Doppler. Renal cysts measure 3 x 3.2 x 3.1 cm and 1 x 1 x 1 cm. No internal color vascularity is noted within the cysts. Renal cortex measures 1.5 cm. Left Kidney: The left kidney measures 9.4 x 3.8 x 3.4 cm and has a volume of 64 mL. No hydronephrosis. No shadowing calculi. A renal cyst without internal vascularity measures 0.6 x 0.5 x 0.5 cm. No obvious solid renal mass. Renal cortex measures 1.1 cm. Bladder: Bladder volume measures up to 381 mL. No focal bladder wall thickening noted. Ureteral jets were not interrogated on this study. IMPRESSION: 1. Solid and vascular right renal mass is highly suspicious for neoplasm. Tissue sampling should be considered. 2. Left renal atrophy. 3. Bilateral renal cysts. 4. No hydronephrosis. Electronically authenticated by: GUSTAVO GONZALEZ Date: 2022-12-04 13:03 Normal [facility] MRI ABDOMEN WO CONon 023 MRI ABDOMEN WO CON EXAMINATION: MRI ABD OMEN WO CON HISTORY: Imaging of abdomen abnormal COMPARISON: Report from CT abdomen pelvis 10/28/2022 performed at [facility] TECHNIQUE: MRCP was performed without contrast for evaluation of the common bile duct and pancreatic duct. FINDINGS: GALLBLADDER: No abnormal distention, wall thickening, mass, or free fluid. BILE DUCTS: No stricture, abnormal dilation, or filling defect. PANCREAS: Dilated duct throughout majority of its length, up to 11 mm. Focal stricture in head of pancreas without appreciable stones or mass. Tiny pseudocyst within head of pancreas. KIDNEY: Complex 3.4 x 2.7 x 2.3 cm mass within anterior mid body of right kidney suspicious for neoplasm. Moderate atrophy of left kidney. AORTA: Aneurysmal dilation of infrarenal aorta 4.5 cm in diameter. IMPRESSION: 1. Right kidney contains a heterogeneous 3.4 cm mass suspicious for neoplasm. CT or ultrasound-guided biopsy should be considered. 2. Infrarenal aortic aneurysm 4.5 cm in diameter. No prior studies to document stability. 3. Dilated pancreatic duct with focal stricture in head of pancreas, but no appreciable mass or stone. Electronically authenticated by: FREDI GREENWOOD Date: 2022-11-30 15:06 Normal [facility] XR FOREIGN BODY EYEon 2022 XR FOREIGN BODY EYE EXAMINATION: XR FORE IGN BODY EYE HISTORY: Foreign body in eye COMPARISON: No relevant comparison available. FINDINGS: ORBITS: Negative for a metallic foreign body. OTHER: Negative. IMPRESSION: 1. No metallic foreign body within the orbits. Electronically authenticated by: FREDI GREENWOOD Date: 2022-11-30 08:53 Normal [facility] Vital Signs Date Time Vital Sign Value Performing Clinician Faci lity 09-30-2023 [id number] Body height 175.3 cm Mary Telles MD Work Phone: [facility] 09-30-2023 15:11-0500 Body mass index (BMI) [Ratio] 27.91 kg/m2 Mary Telles MD Work Phone: [facility] 09-30-2023 15:11-0500 Body weight 85.73 kg Mary Telles MD Work Phone: [facility] 09-30-2023 15:11-0500 Diastolic blood pressure 69 mm[Hg] Mary Telles MD Work Phone: [facility] 09-30-2023 15:11-0500 Heart rate 69 /min Mary Telles MD Work Phone: [facility] 09-30-2023 15:11-0500 Systolic blood pressure 116 mm[Hg] Mary Telles MD Work Phone: [facility] 08-05-2023 15:21-0500 Body height 175.3 cm Mary Telles MD Work Phone: [facility] 08-05-2023 15:21-0500 Body mass index (BMI) [Ratio] 27.91 kg/m2 Mary Telles MD Work Phone: [facility] 08-05-2023 15:21-0500 Body weight 85.73 kg Mary Telles MD Work Phone: [facility] 08-05-2023 15:21-0500 Diastolic blood pressure 99 mm[Hg] Mary Telles MD Work Phone: [facility] 08-05-2023 15:21-0500 Heart rate 82 /min Mary Telles MD Work Phone: [facility] 08-05-2023 15:21-0500 Systolic blood pressure 170 mm[Hg] Mary Telles MD Work Phone: [facility] Encounters Encounter Date Encounter Type Care Provider Facility Start: 11-16-2023 End: 11-23-2023 ambulatory [facility] Start: 11-16-2023 End: 11-23-2023 ambulatory [facility] Start: 11-14-2023 End: 11-15-2023 ambulatory [facility] Start: 11-11-2023 End: 11-11-2023 ambulatory [facility] Start: 10-26-2023 ambulatory [facility] Start: 10-24-2023 End: 10-24-2023 ambulatory SHAZIA ELIZABETH Not Available Start: 10-04-2023 Telephone encounter Mary urena MD Work Phone: [facility] Start: 09-30-2023 End: 09-30-2023 ambulatory MARY TELLES [facility] Start: 09-30-2023 End: 09-30-2023 Office outpatient visit 15 minutes [facility]elles MD [facility] Comment on above: Right renal mass (Pr imary Dx); Renal cell carcinoma Start: 09-13-2023 Telephone encounter Mary urena MD Work Phone: [facility] Start: 08-15-2023 Telephone encounter Lexus Mckinnon [facility] Start: 08-05-2023 End: 08-05-2023 ambulatory [facility] Start: 08-05-2023 End: 08-05-2023 Postop follow up visit related to original px Mary Telles MD Work Phone: [facility] Comment on above: Renal mass (Primary Dx); Renal cell carcinoma Start: 07-28-2023 End: 07-28-2023 [facility] Start: 07-27-2023 End: 07-28-2023 Evaluation and management of inpatient [facility] Start: 07-26-2023 End: 07-28-2023 Evaluation and management of inpatient [facility] Start: 07-24-2023 End: 07-28-2023 Evaluation and management of inpatient [facility] Start: 07-24-2023 End: 07-28-2023 Evaluation and management of inpatient [facility] Start: 07-23-2023 End: 07-28-2023 Evaluation and management of inpatient [facility] Start: 07-23-2023 End: 07-28-2023 [facility] Start: 07-21-2023 End: 07-27-2023 Evaluation and management of inpatient [facility] Start: 02-21-2023 ambulatory Serjio Keitai ty:CELINE Chavez Start: 12-27-2022 ambulatory Serjio GAVIRIA Facility :CELINE Chavez Start: 12-23-2022 End: 12-24-2022 ambulatory DYLAN TAPIA [facility] Start: 12-13-2022 End: 12-14-2022 ambulatory VIRGINIA POLLOCK [facility] Start: 12-04-2022 End: 12-05-[address] DYLAN TAPIA . Facility: Start: 12-03-2022 End: 12-04-[address] DYLAN TAPIA . Facility: Start: 11-30-2022 End: 12-01-[address] YDLAN TAPIA . Facility: Procedures Date Procedure Procedure Detail Performing Clinician Start: 09-30-2023 Follow-up visit Follow-up MARY TELLES Start: 09-30-2023 MEASURE POST VOID RESIDUAL Mary Telles MD Work Phone: Start: 07-21-2023 Adult depression screening assessment Mary Telles MD Work Phone: Plan of Treatment Date Care Activity Detail Author Start: 09-29-2024 Adult BMI Screening Adult BMI Screen ing [facility] Start: 09-29-2024 Tobacco Screening Tobacco Screening [facility] Start: 08-05-2024 Adult BMI Screening Adult BMI Screen ing [facility] Start: 08-05-2024 Tobacco Screening Tobacco Screening [facility] Start: 07-21-2024 Depression Screening Depression Scre ening [facility] Start: 05-07-2024 End: 05-07-2024 Patient encounter procedure 05/07/2024 3:10 PM EDT Office Visit [facility] [address] [place] [phone] Jimmy Alcaraz MD [address], [address] [phone] [facility] Start: 04-01-2024 End: 09-29-2024 CT Abdomen W contrast IV CT abdomen with contrast Imaging Routine Renal cell carcinoma Expected: 04/01/2024 (Approximate), Expires: 09/29/2024 [facility] Work Phone: Comment on above: Expected: 04/01/2024 (Approximate), Expires: 09/29/2024 Start: 04-01-2024 End: 09-29-2024 XR Chest PA and Lateral X-ray chest 2 views Imaging Routine Renal cell carcinoma Expected: 04/01/2024 (Approximate), Expires: 09/29/2024 [facility] Comment on above: Expected: 04/01/2024 (Approximate), Expires: 09/29/2024 Start: 02-03-2024 End: 02-03-2024 Patient encounter procedure [facility] - Radiology Start: 02-03-2024 End: 08-05-2024 MR Abdomen WO and W contrast IV MR abdomen with and without contrast Imaging Routine Renal cell carcinoma Expected: 02/03/2024 (Approximate), Expires: 08/05/2024 [facility] Work Phone: Comment on above: Expected: 02/03/2024 (Approximate), Expires: 08/05/2024 Start: 02-03-2024 End: 08-05-2024 XR Chest PA and Lateral X-ray chest 2 views Imaging Routine Renal cell carcinoma Expected: 02/03/2024 (Approximate), Expires: 08/05/2024 [facility] [employer] Comment on above: Expected: 02/03/2024 (Approximate), Expires: 08/05/2024 Start: 01-27-2024 End: 01-27-2024 Patient encounter procedure 01/27/2024 1:00 PM EDT Appointment [facility] [place] [address] [place] [phone] [facility] - [place] Start: 01-23-2024 End: 01-23-2024 Patient encounter procedure 01/23/2024 8:45 AM EDT Appointment [facility] - MRI Imaging [address] [place] [address] Mary Telles MD [address] [facility] [place] [phone] [facility] - [facility] Imaging Start: 09-28-2023 End: 09-28-2023 Patient encounter procedure 09/28/2023 10:30 AM EST Office Visit [facility] [address] [facility] [phone] [place] [address] [place] [phone] Lexus Lainez PA [address] [place] [address] [phone] [facility] Start: 09-09-2023 End: 09-09-2023 Patient encounter procedure 09/09/2023 4:30 PM EST Office Visit [facility] [address] [place] [phone] Mary Telles MD [address] [place] [phone] [facility] Start: 03-25-2023 Influenza vaccination Influenza Vacc ine [facility] Start: 2022 Fall Risk Screening Fall Risk Screen ing [facility] Start: 1976 Administration of varicella zoster vaccine Zoster (Shingles) Vaccine (1 of 2) [facility] Start: 1976 DTaP,Tdap and Td Vaccines (1 - Tdap) DTaP,Tdap and Td Vaccines (1 - Tdap) [facility] Start: 10-02-1975 Adult BMI Follow Up Plan Adult BMI Follow Up Plan [facility] Start: 10-02-1975 Diabetic foot examination Diabetic Foot Exam [facility] Start: 1955 Glaucoma screening Diabetic Op hthalmology Exam [facility] Start: 1957 Medicare Annual Well ness Visit Medicare Annual Wellness Visit [facility] Start: 1957 Tobacco Counseling Tobacco Counselin g [facility] Start: 1957 Urine screening for protein Urine Microalbumin [facility] Payers Date Payer Category Payer Medicare MEDICARE MEDICAR E PART A & B [id number] 2022-Present [phone] [address] [place] [address] [id number] 2022 Unknown [id number] 2022 Unknown [employer] [id number] 2022-Present [phone] [address] [place] [address] [id number] 2018 Private Health Insurance [id number] 2012 Private Health Insurance [id number] 1959 Medicare [id number] 1959 Unknown [id number] 1957 Unknown [id number] 2.16.840.1.392043.3.579 .2.593 1957 Unknown [id number] 2.16.840.1.021810.3.579 .2.593 1957 Unknown [id number] 2.16.840.1.204351.3.579 .2.593 1957 Unknown [id number] 2.16.840.1.501354.3.579 .2.1286 1957 Unknown [id number] 2.16.840.1.723556.3.579 .2.1286 1957 Unknown [id number] 2.16.840.1.425174.3.579 .2.1286 1957 Unknown [id number] 2.16.840.1.990582.3.579 .2.1286 1957 Unknown [id number] 2.16.840.1.474810.3.579 .2.1286 1957 Unknown [id number] 2.16.840.1.890036.3.579 .2.1286 1957 Unknown [id number] 2.16.840.1.128612.3.579 .2.1286 1957 Unknown [id number] 2.16.840.1.956460.3.579 .2.128 1957 Unknown [id number] 2.16.840.1.227124.3.579 .2.1285 1957 Unknown [id number] 2.16.840.1.134860.3.579 .2.1285 1957 Unknown [id number] 2.16.840.1.224318.3.579 .2.128 1957 Unknown [id number] 2.16.840.1.540205.3.579 .2.1259 1957 Unknown [id number] 2.16.840.1.010781.3.579 .2.1285 1957 Unknown [id number] 2.16.840.1.113486.3.579 .2.1285 1957 Unknown [id number] 2.16.840.1.051395.3.579 .2.128 1957 Unknown [id number] 2.16.840.1.809266.3.579 .2.1285 1957 Unknown [id number] 2.16.840.1.988732.3.579 .2.1285 1957 Unknown [id number] 2.16.840.1.811229.3.579 .2.1285 1957 Unknown [id number] 2.16.840.1.311374.3.579 .2.128 1957 Unknown [id number] 2.16.840.1.430707.3.579 .2.1286 Social History Date Type Detail Facility Start: 08-05-2023 [facility] History of tobacco use Cigarette Smoker P [facility] Start: 09-04-2020 End: 08-05-2023 Cigarettes smoked current (pack per day) - Reported 1 [facility] Start: 08-05-2023 Tobacco use and exposure [facility]ok[facility] Start: 08-05-2023 End: 10-04-2023 Alcohol intake Current [facility]drinker of [facility] (finding) [facility] Start: 09-04-2020 End: 07-27-2023 [facility] Utilities [facility] Has the electric, [employer], oil, or water company threatened to shut off services in your home in past 12Mo No [facility] Adolescent depressio n screening assessment 0 [facility] Start: 07-07-2023 Tobacco Comment Currently smok ing 1/[facility]ppd [facility] Start: 1955 Sex Assigned At Not on file P [facility] Procedure Code Equipment Code Equipment Origin al Text Equipment Identifier Dates Set Cth 24cm 14f r 18ga Str Triniflex Splt3 Bsc Intro Ndl Gw Rpl [id number] - [id number], [id number] FDA Start: 07-27-2023 1 Unit by miscellaneous route 4 (four) times a day before meals and nightly. [id number] Start: 07-27-2023 Goals Date Patient Goal Desired Activity /State Personal health goal Comment on above: Formatting of this n ote might be different from the original. Evaluation of progress towards goal: Patient plans for a safe discharge. Clinical Notes 12-23-2022 to 10-04-2023 Telephone Encounter - Mary Telles MD - 10/04/2023 6:09 PM EDTTelephone Encounter - Mary Telles MD - 10/04/2023 6:09 PM Ward Telles MD - 09/30/2023 3:15 PM ESTAttachments Note Date & Type Note Facility 10-04-2023 Miscellaneous Notes Patient is scheduled with me for six-month follow-up from last visit on 02/03/2024. I had previously ordered him an MRI renal mass protocol as well as a CT from this most recent visit. Can we please cancel the MRI since he is on dialysis and keep the CT order and get it scheduled? We can also cancel the duplicate chest x-ray ordered. He will need to get dialysis after CT. Please let me know if any issues. Thank you. documented in this encounter [facility] 10-04-2023 Telephone encounter Note Patient is scheduled with me for six-month follow-up from last visit on 02/03/2024. I had previously ordered him an MRI renal mass protocol as well as a CT from this most recent visit. Can we please cancel the MRI since he is on dialysis and keep the CT order and get it scheduled? We can also cancel the duplicate chest x-ray ordered. He will need to get dialysis after CT. Please let me know if any issues. Thank you. [facility] 09-30-2023 History of Presen t illness Narrative Images from the original note were not included. [address] [facility] [phone] Patient: Fredi Crystal Date of : 1955 Encounter Date: 09/30/2023 History of Present Illness: Chief Complaint: 1 month fu The patient is a 68 y.o. male, an established patient, and is here for follow-up of right renal cell carcinoma. Previous office note x1 reviewed. Patient returns today for one-month follow-up. Patient has not had any meaningful renal recovery since last visit. He is still undergoing hemodialysis 3 times a week through his [facility]. Most recent creatinine that patient showed me today was 4.98 on 09/27/2023 and has trended in this region. He is making urine output that he notes is relatively normal. I discussed the unfortunate situation that it is very possible patient may not recover his renal function given that he had a solitary right functional kidney with baseline CKD requiring surgery for his renal cell carcinoma despite most of the functional tissue remaining. He may need to explore transplantation options in the future, which we can address at a later point. He does have a right flank bulge on exam which is not overly painful or numb. He does have some poor appetite related to hemodialysis. I will plan to have him follow up in 6 months with a chest x-ray and a CT abdomen with contrast which he can have completed with dialysis afterwards to remove the contrast load. Patient agrees with plan of care and all questions were answered to satisfaction. UA: Voided prior PVR: 71 mL Summary of old records: OPV 08/05/23: The patient is a 67 y.o. male, an established patient, and is here for follow-up of renal cell carcinoma. Previous operative note and discharge summary reviewed as well as clinic note. Patient underwent right open partial nephrectomy on 07/21/2023 which was quite complicated due to significant endophytic mass. 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 He is currently receiving hemodialysis 3 times per week after starting this in the hospital. He has been tolerating this okay. He is having bowel movements and passing flatus. Appetite remains relatively poor. He is making about 8 oz of urine a day. He is having some intermittent nausea. He is having some mild flank discomfort which he takes Tylenol for. Dr. Tapia, his PCP, is managing his type 2 diabetes. I recommended he keep restrictions for now including weight restrictions. He will follow-up with me in 1 month and 6 months from now with MRI renal mass protocol and chest x-ray per NCCN guidelines. I will touch base with nephrology to see with anticipate the length of hemodialysis will be for him/anticipation of renal recovery. Patient agrees with plan of care and all questions were answered to satisfaction. Urinalysis today: No results for input(s): EXTPOCURCO , EXTPOCURCH , EXTPOCAPP , EXTPOCURBS , EXTPOCURBIL , EXTPOCUKET , EXTPOCUSPG , EXTPOCUHGB , EXTPOCUPRO , EXTPOCUURO , EXTPOCULEU , EXTPOCUNIT , EXTPOCUWBC , EXTPOCUBLD , EXTPOCURBC , EXTPOCUCRY , EXTPOCUBAC , EXTPOCUTREP , EXTPOCUPH , EXTPOCULEE in the last 72 hours. Last BUN and creatinine: Lab Results Component Value Date BUN 40 (H) 07/27/2023 Lab Results Component Value Date CREATININE 5.69 (H) 07/27/2023 Last PSA: No results found for: PSA No results found for: PROSTATICSP Additional Lab/Culture results: None Imaging Reviewed during this Office Visit: None (Results were independently reviewed by physician and radiology report verified) Past Medical, Family, and Social History Update: The following portions of the patient's history were reviewed and updated as appropriate: allergies, current medications, past family history, past medical history, past social history, past surgical history and problem list. Past Medical History: Diagnosis Date AAA (abdominal aortic aneurysm) ([facility]) monitoring Anxiety xanax prn Arthritis Dental disease crown front tooth states could fall out if hit hard enough Essential hypertension 02/23/2018 HL (hearing loss) hearing aid lt ear, deaf right ear Mixed hyperlipidemia 02/23/2018 Nicotine dependence 02/23/2018 Pancreatitis Peptic ulceration when he was younger Renal cell carcinoma right, left kidney atrophied Skin cancer BCC/SCC Varicella Visual impairment prescribed but does not wear Past Surgical History: Procedure Laterality Date BIOPSY MASS 04/01/2023 right kidney CARDIAC CATHETERIZATION 2004 2007 [facility] CHOLECYSTECTOMY 2005 COLONOSCOPY 2012 EYE SURGERY NASAL SINUS SURGERY 2003 cleaned out NEPHRECTOMY PARTIAL OPEN(BIOBANK) Right 07/21/2023 Performed by Mary Telles MD at [facility] SKIN BIOPSY Several times STRABISMUS SURGERY 1961 VASECTOMY Family History Problem Relation Age of Onset Lung cancer Mother Brain cancer Mother Heart disease Father Diabetes Sister Diabetes Brother Stroke Paternal Grandmother Heart attack Paternal Grandfather Early Paternal Grandfather 40 Cancer Half Brother Diabetes Son Anesthesia problems Neg Hx Bleeding Disorder Neg Hx Clotting disorder Neg Hx Prostate cancer Neg Hx Colon cancer Neg Hx Kidney cancer Neg Hx Thyroid cancer Neg Hx Current Outpatient Medications Medication Sig Dispense Refill amLODIPine (NORVASC) 10 mg tablet Take 1 tablet (10 mg total) by mouth in the morning. Indications: high blood pressure. atorvastatin (LIPITOR) 40 mg tablet Take 1 tablet (40 mg total) by mouth nightly Indications: high cholesterol. carvedilol (COREG) 25 mg tablet Take 1 tablet (25 mg total) by mouth in the morning and 1 tablet (25 mg total) in the evening. Take with meals. Indications: high blood pressure. insulin lispro (HumaLOG) 100 unit/mL insulin pen Inject 2-10 Units under the skin 4 (four) times a day with meals and nightly. 15 mL 12 losartan (COZAAR) 25 mg tablet Take 2 tablets (50 mg total) by mouth in the morning. Indications: high blood pressure. metFORMIN (GLUCOPHAGE) 500 mg tablet 1 tablet with a meal Orally Twice a day for 30 day(s) ondansetron ODT (ZOFRAN ODT) 4 mg disintegrating tablet Dissolve 1 tablet (4 mg total) on tongue every 8 (eight) hours as needed for nausea or vomiting. 30 tablet 3 pen needle, diabetic 32 gauge x 5/32 needle 1 Unit by miscellaneous route 4 (four) times a day before meals and nightly. 50 each 3 polyethylene glycol (GLYCOLAX) 17 gram packet Take 17 g by mouth in the morning. 30 packet 0 No current facility-administered medications for this visit. (All medications reviewed and updated by provider since last office visit or hospitalization) Allergies: Patient has no known allergies. Tobacco History: Social History Tobacco Use Smoking Status Every Day Packs/day: 1.00 Years: 40.00 Additional pack years: 0.00 Total pack years: 40.00 Types: Cigarettes Smokeless Tobacco Never Tobacco Comments Currently smoking 1/2ppd (If patient a smoker, smoking cessation counseling offered) Social History: Social History Substance and Sexual Activity Alcohol Use No Review of Systems: General: Negative for chills and fever. Cardiovascular: Negative for chest pain and shortness of breath. Gastrointestinal: Negative for constipation, diarrhea, nausea, and vomitting. -per HPI Physical Exam: BP 116/69 Pulse 69 Ht 175.3 cm (5' 9 ) Wt 85.7 kg (189 lb) BMI 27.91 kg/m General: Alert, well appearing, and in no distress Integumentary: Normal coloration of skin, normal skin moisture Chest and lung exam: quiet, even and easy respiratory effort with no use of accessory muscles Neurologic: Normal coordination, normal gait Flank bulge noted, incision well healed with no hernia Assessment and Plan: Fredi was seen today for follow-up. Diagnoses and all orders for this visit: Renal cell carcinoma - Measure post void residual - Cancel: POCT Urinalysis Auto, W/O Microscopy - CT abdomen with contrast; Future - X-ray chest 2 views; Future Problem List Genitourinary Renal cell carcinoma - Primary Overview 02/23/23: CTAP-WOC 10/28/22 (for AAA surv) - 2.5 cm indet ant RLP lesion > MR-abdomen WOC 11/30/22 ([facility]) - 3.4 cm R renal mass s/p IR bx chronically inflamed reactive fibrovascular adipose tissue/consistent w/ cystic contents>MRI-RMP 01/13/23 - 2.7 cm R ant upper pole abutting sinus fat; hx lap paola, no AC; CM - CKD (atrophic L kidney) - check BMP [Cr 1.42 (eGFR 55)], plan repeat IR-bx 04/01/23: IR-bx > path ccRCC (FG1) 05/11/23: Plan open R partial Nx (given solitary kidney, partially endo mass) 07/21/23: R open partial Nx - path pT1a ccRCC (2.5 cm), neg margins, w/ lymphoid/focal reactive hyperplasia (x2 prev lesions - benign) 08/05/23: Discussed path, remains on HD for now - F/U 1 mo postop 09/30/23: Cr 4.98 (09/27/23), +UOP, mild R flank bulge, unlikely meaningful renal recovery - F/U [address]-ABD/WC/CXR Relevant Orders Measure post void residual (Completed) CT abdomen with contrast X-ray chest 2 views Follow-up: 6 months MARY TELLES MD This note was created with the assistance of a speech recognition program. While intending to generate a timely document that accurately reflects the content of the visit, no guarantee can be provided that every grammatical or spelling mistake has been or will be identified or corrected. Thank you for your understanding. documented in this encounter [facility] 09-13-2023 Miscellaneous Notes Patient canceled previous appointment on 09/09. Can we please see if he can get an appointment in the next 1-2 weeks? Thanks. Patient is scheduled 09/27 with Lexus. Did you want him to see you instead? Please advise. Yes please documented in this encounter [facility] 09-13-2023 Telephone encounter Note Patient canceled previous appointment on 09/09. Can we please see if he can get an appointment in the next 1-2 weeks? Thanks. [facility] 09-13-2023 Telephone encounter Note Patient is scheduled 09/27 with Lexus. Did you want him to see you instead? Please advise. [facility] 09-13-2023 Telephone encounter Note Yes please [facility] 08-15-2023 Miscellaneous Notes Pt's said you were going to touch base with the Licensing Court Magistrate. She is calling to see if you have done that? I sent a message. I should hopefully hear back this week. documented in this encounter [facility] 08-15-2023 Telephone encounter Note Pt's said you were going to touch base with the Licensing Court Magistrate. She is calling to see if you have done that? [facility] 08-15-2023 Telephone encounter Note I sent a message. I should hopefully hear back this week. [facility] 08-05-2023 History of Presen t illness Narrative Images from the original note were not included. [address] [facility] [id number] Patient: Fredi Crystal Date of : 1955 Encounter Date: 08/05/2023 History of Present Illness: Chief Complaint: Follow-up postop The patient is a 67 y.o. male, an established patient, and is here for follow-up of renal cell carcinoma. Previous operative note and discharge summary reviewed as well as clinic note. Patient underwent right open partial nephrectomy on 07/21/2023 which was quite complicated due to significant endophytic mass. 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 He is currently receiving hemodialysis 3 times per week after starting this in the hospital. He has been tolerating this okay. He is having bowel movements and passing flatus. Appetite remains relatively poor. He is making about 8 oz of urine a day. He is having some intermittent nausea. He is having some mild flank discomfort which he takes Tylenol for. Dr. Tapia, his PCP, is managing his type 2 diabetes. I recommended he keep restrictions for now including weight restrictions. He will follow-up with me in 1 month and 6 months from now with MRI renal mass protocol and chest x-ray per NCCN guidelines. I will touch base with nephrology to see with anticipate the length of hemodialysis will be for him/anticipation of renal recovery. Patient agrees with plan of care and all questions were answered to satisfaction. Summary of old records: OPV 05/11/23: The patient is a 67 y.o. male, an established patient, and is here for follow-up of biopsy results. Previous office note x1 reviewed. Patient follows up today with BMP results as well as IR guided biopsy of right renal lesion. He was found to have a creatinine of 1.42 with EGFR 55 on CMP 02/23/2023. Patient underwent repeat IR guided biopsy of right renal mass on 04/01/2023 revealing clear cell renal cell carcinoma, Evangelist grade 1. I discussed with the patient the etiology and natural course of renal cell carcinoma. I explained the consideration of renal mass biopsy and its use on a utility-based approach when it would impact management. All relevant AUA and NCCN guidelines were discussed. I discussed the various options for management including: Active Surveillance: This is an option for all patients who present with solid renal mass or a complex but predominantly cystic mass less than 2 cm, or patients where the anticipated risk of intervention or competing risks of outweigh the potential oncologic benefits of active treatment and patient is willing to accept the potential for delayed intervention based on the associated oncologic risks. This would require repeat cross-sectional imaging in 3-6 months to assess for interval growth or change in characterization with subsequent periodic clinical/imaging surveillance based on shared-decision making. I highlighted that intervention would be recommended if there is substantial interval growth or if there is concern that the risk/benefit analysis is no longer equivocal or favorable for continued surveillance. Nephron-Sparing Approaches: I discussed both surgical intervention with partial nephrectomy or thermal ablation techniques performed by Interventional Radiology with concurrent renal mass biopsy. I counseled the patient that thermal ablation techniques can be used for the alternative management of a cT1a solid renal mass less than 3 cm in size with percutaneous approach preferred to minimize morbidity. I recommended prioritization of partial nephrectomy for larger masses or masses with increasing complexity including central location. I also discussed the increased recurrence rate and local persistence with thermal ablation techniques, and the efficacy of a secondary intervention with increasing equivalency to surgical removal. With regards to thermal ablation techniques, I discussed the less than 1% risk of life-threatening bleeding and marginal risk of tumor seeding based on multiple studies. With regards to partial nephrectomy, I discussed both the open and laparoscopic approaches with utilization of minimally invasive techniques including the use of the robotic platform if feasible to reduce overall morbidity. I discussed the risks associated with the procedure including risk of bleeding, infection, damage to surrounding organs and structures, postoperative wound complications, urinoma, pseudoaneurysm/AV fistula formation, need for future procedure/surgery, and risks associated with general anesthesia and major intervention including risk of heart attack, stroke, VTE, and . Radical Nephrectomy: I discussed consideration of radical nephrectomy for patients with a solid or Bosniak 3/4 complex cystic renal mass whenever increased oncologic potential is suggested by the tumor size, renal mass biopsy (if obtained,), and/or imaging. I advised this approach for patients who have significant tumor complexity with overriding concerns about the safety or oncological efficacy of partial nephrectomy, ideally no pre-existing CKD or proteinuria and normal contralateral kidney, and that could have maintenance of preserved postoperative baseline eGFR (>45 mL/min/1.73m2). With regards to radical nephrectomy, I discussed both the open and laparoscopic approaches with utilization of minimally invasive techniques including the use of the robotic platform if feasible to reduce overall morbidity. I discussed the risks associated with the procedure including risk of bleeding, infection, damage to surrounding organs and structures, postoperative wound complications, need for future procedure/surgery, and risks associated with general anesthesia and major intervention including risk of heart attack, stroke, VTE, and . After discussion of all relevant management options, patient expressed that he would like to stay with our group for treatment. I have recommended that the patient proceed with right open partial nephrectomy given his functionally solitary right kidney and mostly endophytic tumor in slightly complex location as via this approach we could put the kidney under cold ischemia time. I discussed additional risks and benefits related to open surgery via flank approach including flank bulge/hernia and skin hypoesthesia/anesthesia. Patient expressed understanding and wishes to proceed. All questions were answered to satisfaction. High MDM due to record reviewed x1, labs and tests ordered and reviewed x3 including biopsy results/IR biopsy report by another healthcare provider (Interventional Radiology/pathology), and major operation under general anesthesia with risk factors identified and threat to life of medical condition if not addressed. Urinalysis today: No results for input(s): EXTPOCURCO , EXTPOCURCH , EXTPOCAPP , EXTPOCURBS , EXTPOCURBIL , EXTPOCUKET , EXTPOCUSPG , EXTPOCUHGB , EXTPOCUPRO , EXTPOCUURO , EXTPOCULEU , EXTPOCUNIT , EXTPOCUWBC , EXTPOCUBLD , EXTPOCURBC , EXTPOCUCRY , EXTPOCUBAC , EXTPOCUTREP , EXTPOCUPH , EXTPOCULEE in the last 72 hours. Last BUN and creatinine: Lab Results Component Value Date BUN 40 (H) 07/27/2023 Lab Results Component Value Date CREATININE 5.69 (H) 07/27/2023 Last PSA: No results found for: PSA No results found for: PROSTATICSP Additional Lab/Culture results: None Imaging Reviewed during this Office Visit: None (Results were independently reviewed by physician and radiology report verified) Past Medical, Family, and Social History Update: The following portions of the patient's history were reviewed and updated as appropriate: allergies, current medications, past family history, past medical history, past social history, past surgical history and problem list. Past Medical History: Diagnosis Date AAA (abdominal aortic aneurysm) ([facility]) monitoring Anxiety xanax prn Arthritis Dental disease crown front tooth states could fall out if hit hard enough Essential hypertension 02/23/2018 HL (hearing loss) hearing aid lt ear, deaf right ear Mixed hyperlipidemia 02/23/2018 Nicotine dependence 02/23/2018 Pancreatitis Peptic ulceration when he was younger Renal cell carcinoma right, left kidney atrophied Skin cancer BCC/SCC Varicella Visual impairment prescribed but does not wear Past Surgical History: Procedure Laterality Date BIOPSY MASS 04/01/2023 right kidney CARDIAC CATHETERIZATION 2004 2007 [facility] CHOLECYSTECTOMY 2005 COLONOSCOPY 2012 EYE SURGERY NASAL SINUS SURGERY 2003 cleaned out NEPHRECTOMY PARTIAL OPEN(BIOBANK) Right 07/21/2023 Performed by Mary Telles MD at [facility] SK[facility] BIOPSY Several times STRABISMUS SURGERY 1961 VASECTOMY Family History Problem Relation Age of Onset Lung cancer Mother Brain cancer Mother Heart disease Father Diabetes Sister Diabetes Brother Stroke Paternal Grandmother Heart attack Paternal Grandfather Early Paternal Grandfather 40 Cancer Half Brother Diabetes Son Anesthesia problems Neg Hx Bleeding Disorder Neg Hx Clotting disorder Neg Hx Prostate cancer Neg Hx Colon cancer Neg Hx Kidney cancer Neg Hx Thyroid cancer Neg Hx Current Outpatient Medications Medication Sig Dispense Refill amLODIPine (NORVASC) 10 mg tablet Take 1 tablet (10 mg total) by mouth in the morning. Indications: high blood pressure. atorvastatin (LIPITOR) 40 mg tablet Take 1 tablet (40 mg total) by mouth nightly Indications: high cholesterol. carvedilol (COREG) 25 mg tablet Take 1 tablet (25 mg total) by mouth in the morning and 1 tablet (25 mg total) in the evening. Take with meals. Indications: high blood pressure. insulin lispro (HumaLOG) 100 unit/mL insulin pen Inject 2-10 Units under the skin 4 (four) times a day with meals and nightly. 15 mL 12 losartan (COZAAR) 25 mg tablet Take 2 tablets (50 mg total) by mouth in the morning. Indications: high blood pressure. metFORMIN (GLUCOPHAGE) 500 mg tablet 1 tablet with a meal Orally Twice a day for 30 day(s) pen needle, diabetic 32 gauge x 5/32 needle 1 Unit by miscellaneous route 4 (four) times a day before meals and nightly. 50 each 3 polyethylene glycol (GLYCOLAX) 17 gram packet Take 17 g by mouth in the morning. 30 packet 0 ondansetron ODT (ZOFRAN ODT) 4 mg disintegrating tablet Dissolve 1 tablet (4 mg total) on tongue every 8 (eight) hours as needed for nausea or vomiting. 30 tablet 3 No current facility-administered medications for this visit. (All medications reviewed and updated by provider since last office visit or hospitalization) Allergies: Patient has no known allergies. Tobacco History: Social History Tobacco Use Smoking Status Every Day Packs/day: 1.00 Years: 40.00 Additional pack years: 0.00 Total pack years: 40.00 Types: Cigarettes Smokeless Tobacco Never Tobacco Comments Currently smoking 1/2ppd (If patient a smoker, smoking cessation counseling offered) Social History: Social History Substance and Sexual Activity Alcohol Use No Review of Systems: General: Negative for chills and fever. Cardiovascular: Negative for chest pain and shortness of breath. Gastrointestinal: Negative for constipation, diarrhea, nausea, and vomitting. -per HPI Physical Exam: BP (!) 170/99 Pulse 82 Ht 175.3 cm (5' 9 ) Wt 85.7 kg (189 lb) BMI 27.91 kg/m General: Alert, well appearing, and in no distress Integumentary: Normal coloration of skin, normal skin moisture Chest and lung exam: quiet, even and easy respiratory effort with no use of accessory muscles Neurologic: Normal coordination, normal gait Incision healing well with no flank bulge or hernia Assessment and Plan: Fredi was seen today for follow-up. Diagnoses and all orders for this visit: Renal cell carcinoma - MR abdomen with and without contrast; Future - X-ray chest 2 views; Future Other orders - ondansetron ODT (ZOFRAN ODT) 4 mg disintegrating tablet; Dissolve 1 tablet (4 mg total) on tongue every 8 (eight) hours as needed for nausea or vomiting. Problem List Genitourinary Renal cell carcinoma - Primary Overview 02/23/23: CTAP-WOC 10/28/22 (for AAA surv) - 2.5 cm indet ant RLP lesion > MR-abdomen WOC 11/30/22 ([facility]) - 3.4 cm R renal mass s/p IR bx chronically inflamed reactive fibrovascular adipose tissue/consistent w/ cystic contents>MRI-RMP 01/13/23 - 2.7 cm R ant upper pole abutting sinus fat; hx lap paola, no AC; CM - CKD (atrophic L kidney) - check BMP [Cr 1.42 (eGFR 55)], plan repeat IR-bx 04/01/23: IR-bx > path ccRCC (FG1) 05/11/23: Plan open R partial Nx (given solitary kidney, partially endo mass) 07/21/23: R open partial Nx - path pT1a ccRCC (2.5 cm), neg margins, w/ lymphoid/focal reactive hyperplasia (x2 prev lesions - benign) 08/05/23: Discussed path, remains on HD for now - F/U 1 mo postop, 6 mo w/ MRI-RMP/CXR Relevant Orders MR abdomen with and without contrast X-ray chest 2 views Follow-up: 1 month MARY TELLES MD This note was created with the assistance of a speech recognition program. While intending to generate a timely document that accurately reflects the content of the visit, no guarantee can be provided that every grammatical or spelling mistake has been or will be identified or corrected. Thank you for your understanding. documented in this encounter [facility] 08-05-2023 Instructions Mary Telles MD - 08/05/2023 3:30 PM EST My The following attachments cannot be sent through Care Everywhere.Kidney cancer (Burmese)documented in this encounter [facility] 12-23-2022 Note Satisfactory for danitza luation. Examination of the ThinPrep slide and cell block reveals histiocytes, scattered inflammatory cells, and cystic debris. [facility] Comment on above: Performed By: #### L [id number] #### [facility]) [place] [address] 12-23-2022 Note History: Right renal mass on CT Procedure: CT guided core biopsy of right renal mass Interventional radiologist: Dr. Subhash Mace Anesthesia: The patient's cardiopulmonary status was evaluated and the patient is suitable for moderate sedation. During the course of the procedure, the patient was sedated with 2 mg Versed IV and 100 mcg Fentanyl IV while being monitored with ECG, blood pressure monitoring and pulse oximetry by appropriately trained personnel. 39 minutes [id number] moderate sedation was provided by Dr. Mace. Following the procedure, the patient was recovered according to the moderate sedation policy. Estimated blood loss: Minimal. Findings: Written informed consent was obtained after risks and benefits were discussed. Final verification was performed. Limited CT scanning in the prone position was performed for localization of the right renal mass. Overlying skin was marked and then sterilely prepped and draped. Local anesthesia with 1% lidocaine. Using CT guidance, a 17 gauge introducer was advanced to the lesion and through this, 5 18 gauge core biopsy samples were obtained. Approximately 2 mL serosanguineous fluid was also aspirated. Limited post procedure scanning did not show evidence of immediate complications. IMPRESSION: Impression: 1. Successful CT guided core biopsy of right renal mass. Approximately 2 mL of fluid was also aspirated, likely related to renal cyst. All CT scans at this facility use dose modulation, iterative reconstruction, and/or weight based dosing when appropriate to reduce radiation dose to as low as reasonably achievable. Electronically signed: SUBHASH MACE. [facility] Comment on above: Order Comment: Outsi de order for right renal mass 12-23-2022 Note Sedation Preparation Pre Procedure Evaluation Pre Procedure Evaluation: H&P was reviewed and the patient was examined. No change has occurred in the patient's condition since the H&P has been completed. ASA Score ASA: 2 Mallampati Mallampati: II Informed Consent Sedation Plan and Risks Explained: Patient Registry Data Cath PCI Version 5 Indication(s) for Table Games Manager Visit: Other [facility] Evaluation note Diagnosis Renal mass- Primary Unspecified disorder of kidney and ureter Renal cell carcinoma ([facility] Right renal mass- Primary Unspecified disorder of kidney and ureter Renal cell carcinoma ([facility]) [facility] filedocumented in this encounter [facility]Not on filedocumented in this [facility]* Attachments The following attachments cannot be sent through Care Everywhere. * Kidney cancer (Burmese) [facility] System[facility]ructionsNot on file documented [facility] Summary Purpose Family History No Family History Records FoundNo Family History Records FoundNo Family History Records FoundNo Family History Records FoundNo Family History Records FoundNo Family History Records FoundNo Family History Records Found Advance Directives No Advanced Directives Records FoundLatest Code Status on File Code Status Date Activated Date Inactivated Comments Full Code 07/21/2023 7:44 PM 07/27/2023 6:42 PM Code Status History Code Status Date Activated Date Inactivated Comments Full Code 02/23/2018 1:40 AM 02/24/2018 6:19 PM Latest Code Status on File Code Status Date Activated Date Inactivated Comments Full Code 07/21/2023 7:44 PM 07/27/2023 6:42 PM Code Status History Code Status Date Activated Date Inactivated Comments Full Code 02/23/2018 1:40 AM 02/24/2018 6:19 PM Reason for Referral Specialty Diagnoses / Procedures Referred By Rhea manjarrez Referred To Contact Radiology Diagnoses Renal cell carcinoma ([facility]) Procedures MR abdomen with and without contrast Mary Telles MD [address] [place] [address] Referral ID Status Reason Start Date Expiration Date V isits Requested Visits Authorized [id number] Pending Review 08/05/2023 08/04/2024 1 1 Specialty Diagnoses / Procedures Referred By Rhea manjarrez Referred To Contact Radiology Diagnoses Renal cell carcinoma ([facility]) Procedures CT abdomen with contrast Mary Telles MD [address] [place] [address] Referral ID Status Reason Start Date Expiration Date V isits Requested Visits Authorized [id number] Pending Review 09/30/2023 09/29/2024 1 1 Specialty Diagnoses / Procedures Referred By Contac t Referred To Contact Diagnoses Renal cell carcinoma ([facility]) Procedures Measure post void residual Mary Telles MD [address] [place] [address] Referral ID Status Reason Start Date Expiration Date V isits Requested Visits Authorized [id number] Pending Review 09/30/2023 09/29/2024 1 1 Additional Source Comments (unrecognized sect ion and content) No Status Records FoundNo Status Records FoundNo Status Records FoundNo Status Records FoundNo Status Records FoundNo Status Records FoundNo Status Records Found INFORMATION SOURCE (unrecogn ized section and content) DATE CREATED AUTHOR 12/05/2022 [facility] DATE CREATED AUTHOR AUTHOR'S ORGANIZ ATION 01/02/2023 [facility] DATE CREATED AUTHOR AUTHOR'S ORGANIZ ATION 01/02/2023 [facility] DATE CREATED AUTHOR AUTHOR'S ORGANIZ ATION 10/02/2023 [facility] DATE CREATED AUTHOR AUTHOR'S ORGANIZ ATION 10/24/2023 [facility] EPIC DATE CREATED AUTHOR AUTHOR'S ORGANIZ ATION 11/13/2023 [facility] DATE CREATED AUTHOR AUTHOR'S ORGANIZ ATION 11/24/2023 [facility] Reason for Visit (unrecogniz ed section and content) Reason Comments Follow-up Reason Comments Follow-up 1 month fu Care Teams (unrecognized sec tion and content) Bronzer Relationship Specialty Start Date End Date Dylan Tapia MD [address] [phone] PCP - General Family Medicine 06/23/22 Bronzer Relationship Specialty Start Date End Date Dylan Tapia MD [address] [place] [address] PCP - General Family Medicine 06/23/22 Bronzer Relationship Specialty Start Date End Date Dylan Tapia MD [address] [place] [address] PCP - General Family Medicine 06/23/22 Bronzer Relationship Specialty Start Date End Date Dylan Tapia MD [address] [place] [address] PCP - General Family Medicine 06/23/22 Bronzer Relationship Specialty Start Date End Date Dylan Tapia MD [address] [place] [address] PCP - General Family Medicine 06/23/22 FOR RECORDS PERTAINING TO PATIENTS WHO ARE OR HAVE BEEN ENROLLED IN A CHEMICAL DEPENDENCY/SUBSTANCEABUSE PROGRAM, SOME INFORMATION MAY BE OMITTED. This clinical summary was aggregated from multiple sources. Caution should be exercised in using it in the provision of clinical care. This summary normalizes information from multiple sources, and as a consequence, information in this document may materially change the coding, format and clinical context of patient data. In addition, data may be omitted in some cases. CLINICAL DECISIONS SHOULD BE BASED ON THE PRIMARY CLINICAL RECORDS. [facility]. provides no warranty or guarantee of the accuracy or completeness of information in this document.
[2023-11-25 07:41] LABS: Basophils Absolute Auto 0.1 10^3/uL (0.0-0.1); Basophils Percent Auto 0.9 % (0.2-2.0); Eosinophils Absolute Auto 0.4 10^3/uL (0.0-0.7); Hematocrit 37.8 % (42.0-54.0); Hemoglobin 12.5 g/dL (14.0-18.0); Immature Granulocytes Abs Auto 0.02 10^3/uL (0.00-0.03); Immature Granulocytes Pct Auto 0.2 % (0.0-0.5); Lymphocytes Absolute Auto 3.9 10^3/uL (1.2-3.8); Lymphocytes Percent Auto 40.9 % (20.5-60.0); Mean Corpuscular HGB Conc 33.1 g/dL (29.9-35.2); Mean Corpuscular Hemoglobin 29.7 pg (25.9-34.0); Mean Corpuscular Volume 89.8 fL (80.0-94.0); Mean Platelet Volume 8.8 fL (9.5-13.5); Monocytes Absolute Auto 0.7 10^3/uL (0.3-0.8); Monocytes Percent Auto 7.5 % (1.7-12.0); Neutrophils Absolute Auto 4.4 10^3/uL (1.4-6.5); Neutrophils Percent Auto 46.5 % (43.0-75.0); Platelet Count 171 10^3/uL (150-450); Red Blood Count 4.21 10^6/uL (4.70-6.10); Red Cell Distribution Width 13.4 % (11.0-15.0); White Blood Count 9.6 10^3/uL (4.0-11.0)
[2023-11-25 08:18] LABS: Estimated Average Glucose 126 mg/dL
[2023-11-25 08:22] LABS: Alanine Aminotransferase 19 U/L (16-63); Albumin Globulin Ratio 1.1; Albumin Level 3.8 g/dL (3.4-5.0); Alkaline Phosphatase 102 U/L (46-116); Anion Gap 13.9; Aspartate Amino Transferase 15 U/L (15-37); BUN Creatinine Ratio 9.7; Bilirubin Total 0.5 mg/dL (0.2-1.0); Calcium 9.5 mg/dL (8.5-10.1); Chloride 103 mmol/L (98-107); Cholesterol 140 mg/dL (<=200); Estimated GFR (African America 19 (>=60); Estimated GFR (Non-African Ame 15 (>=60); Free T3 1.96 pg/mL (2.18-3.98); Globulin 3.5 g/dL; Glucose 71 mg/dL (74-106); HDL Cholesterol 46 mg/dL (40-60); Potassium 4.9 mmol/L (3.5-5.1); Sodium 139 mmol/L (136-145); Thyroid Stimulating Hormone 2.445 uIU/mL (0.358-3.740); Total Protein 7.3 g/dL (6.4-8.2); Triglycerides 145 mg/dL (<=150)
[2023-11-25 08:39] LABS: Prostate Specific Antigen Scrn 2.04 ng/mL (<=4.00)
== END 2023-11-25 07:18 | disposition home or self-care (01) ==
LOC: LAB 07:19
PROVIDERS: PCP Family Medicine; Visit Provider Family Medicine
DX: R53.83 Other fatigue (principal); I10 Essential (primary) hypertension; E11.9 Type 2 diabetes mellitus without complications; E78.00 Pure hypercholesterolemia, unspecified; N28.89 Other specified disorders of kidney and ureter
CPT/HCPCS: 36415; 80053; 80061; 83036; 84436; 84443; 84481; 85025; G0103

== ENCOUNTER 2024-01-24 12:04 | Outpatient (OUT) | payer MEDICARE, OTHER, SELFPAY ==
--- OUTSIDE RECORDS SUMMARY | 2024-01-24 12:10 | XMS_ITS | CCD ---
Author Organization [facility] CliniSyri Care Team Providers Care Art Therapy Specialist Name Role Phone ROLDAN ., DR RICHARDSON Admitting Unavailable HOY ., DR RICHARDSON Attending Unavailable HOY ., DR RICHARDSON Primary Care Unavailable HOY ., DR RICHARDSON Consulting Unavailable ZIEBER, DR ZEV Cerda Consulting Unavailable HOY ., DR RICHARDSON Admitting Unavailable HOY ., DR RICHARDSON Attending Unavailable HOY ., DR RICHARDSON Primary Care Unavailable HOY ., DR RICHARDSON Consulting Unavailable GUSTAVO GONZALEZ Consulting Unavailable HOY ., DR RICHARDSON Admitting Unavailable HOY ., DR RICHARDSON Attending Unavailable HOY ., DR RICHARDSON Primary Care Unavailable HOY ., DR RICHARDSON Consulting Unavailable MARIS, FIRAS Referring Unavailable HOY, DYLAN Referring Unavailable Floriany Dylan TAYLOR Primary Care Provider SHAZIA ELIZABETH Attending Unavailable Dylan Tapia Primary Care Physician [phone] Galindo Tapialas Referring Unavailable Serjio GAVIRIA Attending Unavailable Ga FRANK Attending Unavailable Floriany, Dylan Referring Unavailable Ga FRANK Attending Unavailable Hoy, Dylan Referring Unavailable HOY, DYLAN M Referring Unavailable HOY, DYLAN M Primary Care Unavailable TRUMANONERININ Attending Unavailable HOY, DYLAN M Referring Unavailable HOY, DYLAN M Primary Care Unavailable MCKINLEY WINKLER Attending Unavailable HOY, DYLAN M Referring Unavailable HOY, DYLAN M Primary Care Unavailable MARLENE, VIDHIT Referring Unavailable HOY, DYLAN M Primary Care Unavailable CREEDON, CHLOE Referring Unavailable HOY, DYLAN M Primary Care Unavailable CREEDON, CHLOE Referring Unavailable HOY, DYLAN M Primary Care Unavailable CREEDON, CHLOE Referring Unavailable HOY, DYLAN M Primary Care Unavailable CRELAURAON, CHLOE Referring Unavailable HOY, DYLAN M Primary Care Unavailable ALPA TAFOYA Attending Unavailable ALPA TAFOYA Referring Unavailable HOY, DYLAN M Primary Care Unavailable ANIL, MARY M Attending Unavailable HOY, DYLAN M Referring Unavailable HOY, DYLAN M Primary Care Unavailable ANIL, MARY M Admitting Unavailable ANIL, MARY M Attending Unavailable ANIL, MARY M Referring Unavailable HOY, DYLAN M Primary Care Unavailable LANNY RODRIGUEZ Consulting Unavailable WILLARD DE LA PAZ Consulting Unavailable JINA CONNOLLY Attending Unavailable HOY, DYLAN M Primary Care Unavailable RHYS RUSSO Referring Unavailable HOY, DYLAN M Primary Care Unavailable KADOURA, MOHAMED A Attending Unavailable KADOURA, MOHAMED A Referring Unavailable HOY, DYLAN M Primary Care Unavailable KADOURA, MOHAMED A Attending Unavailable KADOURA, MOHAMED A Referring Unavailable HOY, DYLAN M Primary Care Unavailable KADOURA, MOHAMED A Attending Unavailable KADOURA, MOHAMED A Referring Unavailable HOY, DYLAN M Primary Care Unavailable WILLARD DE LA PAZ Attending Unavailable WILLARD DE LA PAZ Referring Unavailable HOY, DYLAN M Primary Care Unavailable WILLARD DE LA PAZ Attending Unavailable WILLARD DE LA PAZ Referring Unavailable HOY, DYLAN M Primary Care Unavailable ABBAS, JIHAD T Attending Unavailable HOY, DYLAN M Referring Unavailable HOY, DYLAN M Primary Care Unavailable HOY, DYLAN M Referring Unavailable HOY, DYLAN M Primary Care Unavailable ABBAS, JIHAD T Admitting Unavailable ABBAS, JIHAD T Attending Unavailable HOY, DYLAN M Primary Care Unavailable LATISHA YOUSSEF Attending Unavailable HOY, DYLAN M Primary Care Unavailable ANIL, MARY M Attending Unavailable HOY, DYLAN M Referring Unavailable HOY, DYLAN M Primary Care Unavailable Allergies Allergy Classification Reported Allergen(s) Allergy Type Date of Onset Reaction(s) Facility (1 source) ALLERGIES NOT ON FILE; Translations: [ALLERGIES NOT ON FILE] Propensity to adverse reactions (disorder) [facility] Repository (1 source) No Known Medication Allergies; Translations: [No Known Medication Allergies] Propensity to adverse reactions (disorder) [facility] Repository Medications Current Medications Medication Drug Class(es) Dates Sig (Normalized) Sig (Original) ALPRAZolam 0.25 mg oral tablet (1 source) Benzodiazepine Start: 12-15-2023 take 1 tablet by mouth three times daily as needed for anxiety alprazolam 0.25 mg Tab 0.25 mg = 1 tab(s), Oral, TID, PRN as needed for anxiety, Refills(s) 0 Start Date: 12/15/23 Status: Ordered amLODIPine 10 mg oral tablet (5 sources) Dihydropyridine Calcium Channel Erika take 1 tablet by mouth in the morning amLODIPine (NORVASC) 10 mg tablet Indications: hypertension Take 1 tablet (10 mg total) by mouth in the morning. Indications: high blood pressure. 0 Active atorvastatin 40 mg oral tablet (6 sources) HMG-CoA Reductase Inhibitor Start: 12-15-2023 take 1 tablet by mouth once daily atorvastatin 40 mg Tab 40 mg = 1 tab(s), Oral, Daily, Refills(s) 0 Start Date: 12/15/23 Status: Ordered take 1 tablet by mouth once amanda y atorvastatin (LIPITOR) 40 mg tablet Indications: hypercholesterolemia Take 1 tablet (40 mg total) by mouth nightly Indications: high cholesterol. 0 Active bumetanide 1 mg oral tablet (1 source) Loop Diuretic Start: 12-26-2023 take 3 tablets by mouth once daily bumetanide 1 mg Tab 3 mg = 3 tab(s), Oral, Daily, Refills(s) 0 Start Date: 12/26/23 Status: Ordered carvedilol 25 mg oral tablet (6 sources) alpha-Adrenergic Erika, beta-Adrenergic Erika Start: 12-15-2023 take 1 tablet by mouth twice daily carvedilol 25 mg Tab 25 mg = 1 tab(s), Oral, BID, Refills(s) 0 Start Date: 12/15/23 Status: Ordered take 1 tablet by federico th in the morning, then take 1 tablet by mouth at mealtime carvedilol (COREG) 25 mg tablet Indications: hypertension Take 1 tablet (25 mg total) by mouth in the morning and 1 tablet (25 mg total) in the evening. Take with meals. Indications: high blood pressure. 0 Active glimepiride 2 mg oral tablet (1 source) Sulfonylurea Start: 12-15-2023 take 1 tablet by mouth once daily Amaryl 2 mg Tab 2 mg = 1 tab(s), Oral, Daily, Refills(s) 0 Start Date: 12/15/23 Status: Ordered 3 ml insulin lispro 100 unt/ml pen injector (3 sources) Insulin Analog Start: 07-27-2023 inject 2-10 [IU] by subcutaneous injection four times daily at mealtime insulin lispro (HumaLOG) 100 unit/mL insulin pen Inject 2-10 Units under the skin 4 (four) times a day with meals and nightly. 15 mL 12 07/27/2023 Active insulin lispro (HumaLOG) 100 unit/mL insulin pen (2 sources) Start: 07-27-2023 inject 2-10 [IU] by subcutaneous injection four times daily at mealtime insulin lispro (HumaLOG) 100 unit/mL insulin pen Inject 2-10 Units under the skin 4 (four) times a day with meals and nightly. 15 mL 12 07/27/2023 Active levothyroxine sodium 0.05 mg oral tablet (1 source) l-Thyroxine Start: 12-26-2023 take 1 tablet by mouth once daily levothyroxine 50 mcg (0.05 mg) Tab 50 mcg = 1 tab(s), Oral, Daily, Refills(s) 0 Start Date: 12/26/23 Status: Ordered losartan potassium 25 mg oral tablet (5 sources) Angiotensin 2 Receptor Erika take 2 tablets by mouth in the morning losartan (COZAAR) 25 mg tablet Indications: hypertension Take 2 tablets (50 mg total) by mouth in the morning. Indications: high blood pressure. 0 Active metFORMIN hydrochloride 500 mg oral tablet (6 sources) Biguanide Start: 12-15-2023 take 1 tablet by mouth twice daily metformin 500 mg Tab 500 mg = 1 tab(s), Oral, BID, Refills(s) 0 Start Date: 12/15/23 Status: Ordered Start: 07-11-2023 take 1 tablet by federico th twice daily metFORMIN (GLUCOPHAGE) 500 mg tablet 1 tablet with a meal Orally Twice a day for 30 day(s) 0 07/11/2023 Active ondansetron 4 mg disintegrating oral tablet (5 sources) Serotonin-3 Receptor Antagonist Start: 08-05-2023 take 1 tablet by mouth every eight hours as needed for nausea and vomiting ondansetron ODT (ZOFRAN ODT) 4 mg disintegrating tablet Dissolve 1 tablet (4 mg total) on tongue every 8 (eight) hours as needed for nausea or vomiting. 30 tablet 3 08/05/2023 Active polyethylene glycol 3350 87199 mg powder for oral solution (5 sources) Osmotic Laxative Start: 07-28-2023 polyethylene glycol (GLYCOLAX) 17 gram packet Take 17 g by mouth in the morning. 30 packet 0 07/28/2023 Active sevelamer carbonate 800 mg oral tablet (1 source) Phosphate Binder Start: 12-26-2023 Renvela 800 mg oral tablet 800 mg = 1 tab(s), Oral, TIDAC, Refills(s) 0 Start Date: 12/26/23 Status: Ordered Problems Active Problems Problem Classification Problem Date Documented Da te Episodic/Chronic Acute and unspecified renal failure (1 source) Renal failure syndrome 12-26-2023 Chronic Acute and unspecified renal failure (1 source) Acute kidney failure, unspecified; Translations: [Acute kidney failure, unspecified] Onset: 11-14-2023 Episodic Aortic; peripheral; and visceral artery aneurysms (6 sources) Abdominal aortic aneurysm; Translations: [AAA (abdominal aortic aneurysm)] Onset: 02-23-2018 02-23-2018 Chronic Cancer of kidney and renal pelvis (9 sources) Clear cell carcinoma of kidney; Translations: [Malignant neoplasm of unspecified kidney, except renal pelvis] Onset: 05-11-2023 08-21-2023 Chronic Chronic kidney disease (6 sources) Dependence on hemodialysis; Translations: [Chronic kidney disease, unspecified] Onset: 11-16-2023 12-26-2023 Chronic Coronary atherosclerosis and other heart disease (3 sources) Coronary arteriosclerosis; Translations: [Atherosclerotic heart disease of [place] coronary artery without angina pectoris] Onset: 11-11-2023 12-15-2023 Chronic Deficiency and other anemia (1 source) Anemia 12-26-2023 Episodic Diabetes mellitus without complication (2 sources) Diabetes mellitus; Translations: [Type 2 diabetes mellitus without complications] Onset: 07-21-2023 12-15-2023 Chronic Disorders of lipid metabolism (9 sources) Mixed hyperlipidemia; Translations: [Mixed hyperlipidemia] Onset: 02-23-2018 02-23-2018 Chronic Essential hypertension (9 sources) Essential hypertension; Translations: [Essential (primary) hypertension] Onset: 02-23-2018 02-23-2018 Chronic Nonspecific chest pain (2 sources) Other chest pain; Translations: [Other chest pain] Onset: 11-16-2023 Episodic Other diseases of kidney and ureters (3 sources) Other specified disorders of kidney and ureter; Translations: [Other specified disorders of kidney and ureter] Onset: 12-23-2022 Chronic Other diseases of kidney and ureters (7 sources) Renal mass; Translations: [Other specified disorders of kidney and ureter] Onset: 07-21-2023 08-21-2023 Chronic Other ear and sense organ disorders (1 source) Hearing loss 12-15-2023 Chronic Other male genital disorders (1 source) Impotence 12-15-2023 Chronic Stefany-; endo-; and myocarditis; cardiomyopathy (except that caused by tuberculosis or sexually transmitted disease) (2 sources) Other hypertrophic cardiomyopathy; Translations: [Other hypertrophic cardiomyopathy] Onset: 11-16-2023 Chronic Peripheral and visceral atherosclerosis (1 source) Peripheral vascular disease, unspecified; Translations: [Peripheral vascular disease, unspecified] Onset: 01-02-2024 Chronic Phlebitis; thrombophlebitis and thromboembolism (1 source) H/O: thromboembolism 12-15-2023 Episodic Residual codes; unclassified (1 source) Tobacco user; Translations: [Tobacco use] Onset: 12-26-2023 Episodic Residual codes; unclassified (1 source) Pain, unspecified; Translations: [Pain, unspecified] Onset: 10-26-2023 Episodic Screening and history of mental health and substance abuse codes (1 source) Tobacco use and exposure - finding 12-26-2023 Chronic Substance-related disorders (9 sources) Nicotine dependence; Translations: [Nicotine dependence, unspecified, uncomplicated] Onset: 02-23-2018 02-23-2018 Chronic Unclassified (1 source) Patient encounter status 12-26-2023 Unclassified (2 sources) Infrarenal abdominal aortic aneurysm, without rupture; Translations: [Infrarenal abdominal aortic aneurysm, without rupture] Onset: 02-23-2018 Unclassified (1 source) New Patient Onset: 11-11-2023 Unclassified (1 source) Renal cell carcinoma ([facility]) [C64.9] Onset: 07-21-2023 Past or Other Problems Problem Classification Problem Date Documented Da te Episodic/Chronic Mood disorders (5 sources) Mood disorders Onset: 07-21-2023 07-21-2023 Other screening for suspected conditions (not mental disorders or infectious disease) (9 sources) Abnormal findings on diagnostic imaging of other abdominal regions, including retroperitoneum; Translations: [Screening for malignant neoplasm of colon done] Onset: 11-30-2022 Episodic Pancreatic disorders (not diabetes) (6 sources) Idiopathic acute pancreatitis; Translations: [Idiopathic acute pancreatitis without necrosis or infection] Onset: 02-23-2018 02-23-2018 Episodic Results Test Name Value Interpretation Reference Range Facility POC K GLUon 01-11-2024 Glucose [Mass/Vol] 90 mg/dL Normal 65-99 [facility] Comment on above: Performed By: #### C BC, BMP, 39905-5, 2777-1 #### [facility] ([id number]) [address], [address] [place] [address] Potassium [Moles/Vol] 4.7 mmol/L Normal 3.5-5.0 [facility] Comment on above: Performed By: #### C BC, BMP, 77435-8, 2777-1 #### [facility] ([id number]) [address], [address] [place] [address] Ambulatory Visit Summaryon 0 12-26-2023 Ambulatory Visit Summary JOSE CRYSTAL :1955 Visit Date:12/26/2023 Ambulatory Visit Instructions Your Diagnosis Anemia Tobacco use Your Care Team Attending Physician - ZAC TAYLOR, Ga Cerda Primary Care Physician - Dylan Tapia MD Referring Physician - Dylan Tapia MD This Is Your Medications List Contact prescribing physician if questions or concerns alprazolam (alprazolam 0.25 mg Tab) atorvastatin (atorvastatin 40 mg Tab) bumetanide (bumetanide 1 mg Tab) carvedilol (carvedilol 25 mg Tab) glimepiride (Amaryl 2 mg Tab) levothyroxine (levothyroxine 50 mcg (0.05 mg) Tab) metformin (metformin 500 mg Tab) sevelamer (Renvela 800 mg oral tablet) Procedures Performed Colonoscopy (03/15/2012), Cholecystectomy, Excision of basal cell carcinoma, Partial nephrectomy, Renal biopsy. Discharge Vitals Heart Rate (Peripheral) 76 Respiratory Rate 16 Blood Pressure 161/81 Height 177.8 cm Height 70 in Weight 63.6 kg Weight 139.92 lb BMI 20.12 Medications What How Much When Instructions Unchanged alprazolam (alprazolam 0.25 mg Tab) 1 Tablets By Mouth 3 times a day as needed for as needed for anxiety Contact prescribing physician if questions or concerns Unchanged atorvastatin (atorvastatin 40 mg Tab) 1 Tablets By Mouth Every day Contact prescribing physician if questions or concerns Unchanged bumetanide (bumetanide 1 mg Tab) 3 Tablets By Mouth Every day Contact prescribing physician if questions or concerns Unchanged carvedilol (carvedilol 25 mg Tab) 1 Tablets By Mouth 2 times a day Contact prescribing physician if questions or concerns Unchanged glimepiride (Amaryl 2 mg Tab) 1 Tablets By Mouth Every day Contact prescribing physician if questions or concerns Unchanged levothyroxine (levothyroxine 50 mcg (0.05 mg) Tab) 1 Tablets By Mouth Every day Contact prescribing physician if questions or concerns Unchanged metformin (metformin 500 mg Tab) 1 Tablets By Mouth 2 times a day Contact prescribing physician if questions or concerns Unchanged sevelamer (Renvela 800 mg oral tablet) 1 Tablets By Mouth Before meals Contact prescribing physician if questions or concerns Allergies No Known Allergies No Known Medication Allergies Problems Ongoing - Any problem that you are currently receiving treatment for. Abdominal aortic aneurysm Anemia CAD (coronary artery disease) Clear cell carcinoma of kidney Diabetes Essential hypertension Hearing loss Hemodialysis patient History of thromboembolism Hypercholesterolemia Idiopathic acute pancreatitis Impotence Mixed hyperlipidemia Nicotine dependence Renal failure Tobacco use Patient Survey You may receive a survey via text or e-mail asking about your office visit. Please share your experience with us by completing your survey. We appreciate your feedback and thank you for choosing us for your care. Normal [facility] Consent for Procedure/Surger yon 12-26-2023 Consent for Procedure/Surgery [id number] Normal [facility] Physician Referralon 024 Physician Referral [id number]#[id number] [facility] CREATININE CLEARANCEon 11-13 Creatinine (U) [Mass/Vol] 51.43 mg/dL Normal [facility] Comment on above: Performed By: #### C RCL #### [facility] ([id number]) [address], [address] [place] [address] CREATININE CLEARANCE 13.6 mL/min Low 74-130 [facility] Comment on above: Performed By: #### C RCL #### [facility] ([id number]) [address], [address] [place] [address] URINE VOLUME AND TIMEon 10-24 TIME 24 h Normal [facility] Comment on above: Performed By: #### C RCL #### [facility] ([id number]) [address], [address] [place] [address] TOTAL VOLUME 1700 mL Normal [facility] Comment on above: Performed By: #### C RCL #### [facility] ([id number]) [address], [address] [place] [address] Measure post void residualOr dered By: Gabrielle Moreno on 09-30-[address] [facility] BASIC METABOLIC PANLon 07-27 Anion gap [Moles/Vol] 10 mmol/L Normal 5-15 [facility] Comment on above: Performed By: #### C HANNAH, BMP, , 2776-1 #### [facility] ([id number]) [address], [address] [place] [address] Calcium [Mass/Vol] 8.1 mg/dL Low 8.5-10.5 [facility] Comment on above: Performed By: #### C BC, BMP, , 2776- #### [facility] ([id number]) [address], [address] [place] [address] Chloride [Moles/Vol] 101 mmol/L Normal 98-109 [facility] Comment on above: Performed By: #### C BC, BMP, , 2776- #### [facility] ([id number]) [address], [address] [place] [address] CO2 [Moles/Vol] 27 mmol/L Normal 22-32 [facility] Comment on above: Performed By: #### C SEBASTIAN YOUNG, , 2776-07 #### [facility] ([id number]) [address], [address] [place] [address] Creatinine [Mass/Vol] 5.69 mg/dL High 0.60-1.30 [facility] Comment on above: Result Comment: METH OD TRACEABLE TO IDMS STANDARD Performed By: #### C SEBASTIAN YOUNG, , 2776-07 #### [facility] ([id number]) [address], [address] [place] [address] GFR/1.73 sq M.predicted among non-blacks MDRD (S/P/Bld) [Vol rate/Area] 10 mL/min/{1.73_m2} Low >59 [facility] Comment on above: Result Comment: Reported eGFR is based on the CKD-EPI 2020 equation that does not use a race coefficient. Performed By: #### C SEBASTIAN YOUNG, , 2776-07 #### [facility] ([id number]) [address], [address] [place] [address] Glucose [Mass/Vol] 165 mg/dL High 65-99 [facility] Comment on above: Performed By: #### C HANNAH, SEBASTIAN, , 2776-07 #### [facility] ([id number]) [address], [address] [place] [address] Potassium [Moles/Vol] 4.3 mmol/L Normal 3.5-5.0 [facility] Comment on above: Performed By: #### SEBASTIAN MARTIN, , 2776-07 #### [facility] ([id number]) [address], [address] [place] [address] Sodium [Moles/Vol] 138 mmol/L Normal 134-146 [facility] Comment on above: Performed By: #### SEBASTIAN MARTIN, , 2776-07 #### [facility] ([id number]) [address], [address] [place] [address] Urea nitrogen [Mass/Vol] 40 mg/dL High 5-27 [facility] Comment on above: Performed By: #### SEBASTIAN MARTIN, , 2776-07 #### [facility] ([id number]) [address], [address] [address] COMPLETE BLOOD COUNTon 07-27 Erythrocyte distribution width (RBC) [Ratio] 12.8 % Normal 11.5-15.0 [facility] Comment on above: Performed By: #### SEBASTIAN MARTIN, , 2776-07 #### [facility] ([id number]) [address], [address] [address] Hematocrit (Bld) [Volume fraction] 26.7 % Low 39-49 [facility] Comment on above: Performed By: #### SEBASTIAN MARTIN, , 2776-07 #### [facility] ([id number]) [address], [facility] [address] [place] [address] Hemoglobin (Bld) [Mass/Vol] 9.4 g/dL Low 13.0-17.0 [facility] Comment on above: Performed By: #### SEBASTIAN MARTIN, , 2776-07 #### [facility] ([id number]) [address] [address] MCH (RBC) [Entitic mass] 31.3 pg Normal 27-34 [facility] Comment on above: Performed By: #### SEBASTIAN MARTIN, , 2776-07 #### [facility] ([id number]) [address], [address] [place] [address] MCHC (RBC) [Mass/Vol] 35.2 g/dL Normal 32-36 [facility] Comment on above: Performed By: #### Kathleen YOUNG, BMP, , 2776-07 #### [facility] ([id number]) [address], [address] [place] [address] MCV (RBC) [Entitic vol] 89 fL Normal 80-100 [facility] Comment on above: Performed By: #### Kathleen YOUNG, BMP, , 2776-07 #### [facility] ([id number]) [address], [address] [place] [address] Platelet mean volume (Bld) [Entitic vol] 7.5 fL Normal 7-12 [facility] Comment on above: Performed By: #### Kathleen YOUNG, SEBASTIAN, , 2776-07 #### [facility] ([id number]) [address], [address] [place] [address] Platelets (Bld) [#/Vol] 195 10*3/uL Normal 150-450 [facility] Comment on above: Performed By: #### Kathleen YOUNG, BMP, , 2776-07 #### [facility] ([id number]) [address], [address] [place] [address] RBC COUNT 3.00 X10E12/L Low 4.10-5.70 [facility] Comment on above: Performed By: #### Kathleen YOUNG, BMP, , 2776-07 #### [facility] ([id number]) [address], [address] [place] [address] WBC (Bld) [#/Vol] 5.6 10*3/uL Normal 4.0-11.0 [facility] Comment on above: Performed By: #### Kathleen YOUNG, BMP, 34951-427[address]-07 #### [facility] ([id number]) [address], [address] [place] [address] FLUID CREATININEon Creatinine [Mass/Vol] 5.76 mg/dL Normal [facility] Comment on above: Result Comment: The reference interval and other method performance specifications are unavailable for this body fluid. Comparison of this result to serum or plasma is recommended. Performed By: #### C HANNAH, SEBASTIAN, , 1 #### [facility] ([id number]) [address], [address] [place] [address] CRET SPECIMEN TYPE NOHEMI LIU Normal [facility] Comment on above: Performed By: #### C HANNAH, BMP, , 7-1 #### [facility] ([id number]) [address], [address] [place] [address] Glucose Glucometer (BldC) [M ass/Vol]on 07-27-2023 Glucose [Mass/Vol] 132 mg/dL High 65-99 [facility] Glucose [Mass/Vol] 138 mg/dL High 65-99 [facility] IR [place] DIAL/CENT LINE > 5 [...] Torre MD on 07/27/2023 1:04 PM Normal [facility] PHOSPHORUSon 07-27-2023 Phosphate [Mass/Vol] 5.1 mg/dL High 2.4-4.9 [facility] Comment on above: Performed By: #### C HANNAH, BMP, , 2776-07 #### [facility] ([id number]) [address], [address] [place] [address] BASIC METABOLIC PANLon 07-26 Anion gap [Moles/Vol] 10 mmol/L Normal 5-15 [facility] Comment on above: Performed By: #### SEBASTIAN MARTIN, , 2776-07 #### [facility] ([id number]) [address], [address] [place] [address] Calcium [Mass/Vol] 7.9 mg/dL Low 8.5-10.5 [facility] Comment on above: Performed By: #### SEBASTIAN MARTIN, , 2776-07 #### [facility] ([id number]) [address], [address] [place] [address] Chloride [Moles/Vol] 101 mmol/L Normal 98-109 [facility] Comment on above: Performed By: #### SEBASTIAN MARTIN, , 2776-07 #### [facility] ([id number]) [address], [address] [place] [address] CO2 [Moles/Vol] 24 mmol/L Normal 22-32 [facility] Comment on above: Performed By: #### SEBASTIAN MARTIN, , 2776-07 #### [facility] ([id number]) [address], [address] [place] [address] Creatinine [Mass/Vol] 7.14 mg/dL High 0.60-1.30 [facility] Comment on above: Result Comment: METH OD TRACEABLE TO IDMS STANDARD Performed By: #### SEBASTIAN MARTIN, , 2776-07 #### [facility] ([id number]) [address], [address] [place] [address] GFR/1.73 sq M.predicted among non-blacks MDRD (S/P/Bld) [Vol rate/Area] 8 mL/min/{1.73_m2} Low >59 [facility] Comment on above: Result Comment: Reported eGFR is based on the CKD-EPI 2020 equation that does not use a race coefficient. Performed By: #### SEBASTIAN MARTIN, , 2776-07 #### [facility] ([id number]) [address], [address] [place] [address] Glucose [Mass/Vol] 168 mg/dL High 65-99 [facility] Comment on above: Performed By: #### SEBASTIAN MARTIN, , 2776-07 #### [facility] ([id number]) [address], [facility] [address] [place] [address] Potassium [Moles/Vol] 4.4 mmol/L Normal 3.5-5.0 [facility] Comment on above: Performed By: #### SEBASTIAN MARTIN, , 2776-07 #### [facility] ([id number]) [address], [facility] [address] [place] [address] Sodium [Moles/Vol] 135 mmol/L Normal 134-146 [facility] Comment on above: Performed By: #### SEBASTIAN MARTIN, , 2776-07 #### [facility] ([id number]) [address], [facility] [address] [place] [address] Urea nitrogen [Mass/Vol] 58 mg/dL High 5-27 [facility] Comment on above: Performed By: #### SEBASTIAN MARTIN, , 2776-07 #### [facility] ([id number]) [address] [address] [place] [address] COMPLETE BLOOD COUNTon 07-26 Erythrocyte distribution width (RBC) [Ratio] 12.9 % Normal 11.5-15.0 [facility] Comment on above: Performed By: #### SEBASTIAN MARTIN, , 2776-07 #### [facility] ([id number]) [address], [address] [place] [address] Hematocrit (Bld) [Volume fraction] 27.6 % Low 39-49 [facility] Comment on above: Performed By: #### SEBASTIAN MARTIN, , 2776-07 #### [facility] ([id number]) [address], [address] [place] [address] Hemoglobin (Bld) [Mass/Vol] 9.7 g/dL Low 13.0-17.0 [facility] Comment on above: Performed By: #### Kathleen YOUNG [facility], , 2776-07 #### [facility] ([id number]) [address], [address] [place] [address] MCH (RBC) [Entitic mass] 31.2 pg Normal 27-34 [facility] Comment on above: Performed By: #### Kathleen YOUNG [facility], , 2776-07 #### [facility] ([id number]) [address], [address] [place] [address] MCHC (RBC) [Mass/Vol] 35.0 g/dL Normal 32-36 [facility] Comment on above: Performed By: #### SEBASTIAN MARTIN, , 2776-07 #### [facility] ([id number]) [address], [address] [place] [address] MCV (RBC) [Entitic vol] 89 fL Normal 80-100 [facility] Comment on above: Performed By: #### SEBASTIAN MARTIN, , 2776-07 #### [facility] ([id number]) [address], [address] [place] [address] Platelet mean volume (Bld) [Entitic vol] 7.5 fL Normal 7-12 [facility] Comment on above: Performed By: #### SEBASTIAN MARTIN, , 2776-07 #### [facility] ([id number]) [address], [address] [place] [address] Platelets (Bld) [#/Vol] 186 10*3/uL Normal 150-450 [facility] Comment on above: Performed By: #### Kathleen YOUNG, SEBASTIAN, , 2776-07 #### [facility] ([id number]) [address], [address] [place] [address] RBC COUNT 3.09 X10E12/L Low 4.10-5.70 [facility] Comment on above: Performed By: #### Kathleen YOUNG, SEBASTIAN, , 2776-07 #### [facility] ([id number]) [address], [address] [place] [address] WBC (Bld) [#/Vol] 5.9 10*3/uL Normal 4.0-11.0 [facility] Comment on above: Performed By: #### Kathleen YONUG, SEBASTIAN, , 2776-07 #### [facility] ([id number]) [address], [address] [place] [address] Glucose Glucometer (dC) [M ass/Vol]on 07-26-2023 Glucose [Mass/Vol] 147 mg/dL High 65-99 [facility] Glucose [Mass/Vol] 194 mg/dL High 65-99 [facility] Glucose [Mass/Vol] 147 mg/dL High 65-99 [facility] Glucose [Mass/Vol] 179 mg/dL High 65-99 [facility] HBV core Ab IA Qlon 07-26-19 24 ANTI HBc Negative Normal NEG [facility] Comment on above: Performed By: #### Kathleen YOUNG, SEBASTIAN, , 2776-07 #### [facility] ([id number]) [address], [address] [place] [address] BASIC METABOLIC PANLon 07-25 Anion gap [Moles/Vol] 9 mmol/L Normal 5-15 [facility] Comment on above: Performed By: #### Kathleen BC, BMP, , 2776-07 #### [facility] ([id number]) [address], [address] [place] [address] Calcium [Mass/Vol] 7.8 mg/dL Low 8.5-10.5 [facility] Comment on above: Performed By: #### Kathleen BC, BMP, , 2776-07 #### [facility] ([id number]) [address], [address] [place] [address] Chloride [Moles/Vol] 100 mmol/L Normal 98-109 [facility] Comment on above: Performed By: #### Kathleen YOUNG, BMP, , 2776-07 #### [facility] ([id number]) [address], [address] [place] [address] CO2 [Moles/Vol] 27 mmol/L Normal 22-32 [facility] Comment on above: Performed By: #### Kathleen YOUNG, BMP, , 2776-07 #### [facility] ([id number]) [address], [address] [place] [address] Creatinine [Mass/Vol] 4.78 mg/dL High 0.60-1.30 [facility] Comment on above: Result Comment: METH OD TRACEABLE TO IDMS STANDARD Performed By: #### Kathleen YOUNG, BMP, , 2776-07 #### [facility] ([id number]) [address], [address] [place] [address] GFR/1.73 sq M.predicted among non-blacks MDRD (S/P/Bld) [Vol rate/Area] 13 mL/min/{1.73_m2} Low >59 [facility] Comment on above: Result Comment: Reported eGFR is based on the CKD-EPI 2020 equation that does not use a race coefficient. Performed By: #### C HANNAH, [facility], , 2776-07 #### [facility] ([id number]) [address], [address] [place] [address] Glucose [Mass/Vol] 132 mg/dL High 65-99 [facility] Comment on above: Performed By: #### C HANNAH, [facility], , 2776-07 #### [facility] ([id number]) [address], [address] [place] [address] Potassium [Moles/Vol] 4.2 mmol/L Normal 3.5-5.0 [facility] Comment on above: Performed By: #### Kathleen YOUNG, [facility], , 2776-07 #### [facility] ([id number]) [address], [facility] [address] [place] [address] Sodium [Moles/Vol] 136 mmol/L Normal 134-146 [facility] Comment on above: Performed By: #### Kathleen YOUNG, [facility], , 2776-07 #### [facility] ([id number]) [address], [facility] [address] [place] [address] Urea nitrogen [Mass/Vol] 40 mg/dL High 5-27 [facility] Comment on above: Performed By: #### Kathleen YOUNG [facility], , 2776-07 #### [facility] ([id number]) [address] [address] [address] [place] [address] COMPLETE BLOOD COUNTon 07-25 Erythrocyte distribution width (RBC) [Ratio] 13.1 % Normal 11.5-15.0 [facility] Comment on above: Performed By: #### Kathleen YOUNG, SEBASTIAN, , 2776-07 #### [facility] ([id number]) [address] [address] [address] [place] [address] Hematocrit (Bld) [Volume fraction] 28.8 % Low 39-49 [facility] Comment on above: Performed By: #### C HANNAH BMP, , 2776-07 #### [facility] ([id number]) [address], [address] [place] [address] Hemoglobin (Bld) [Mass/Vol] 10.1 g/dL Low 13.0-17.0 [facility] Comment on above: Performed By: #### Kathleen YOUNG, BMP, , 2776-07 #### [facility] ([id number]) [address], [address] [place] [address] MCH (RBC) [Entitic mass] 31.1 pg Normal 27-34 [facility] Comment on above: Performed By: #### Kathleen YOUNG, BMP, , 2776-07 #### [facility] ([id number]) [address], [address] [place] [address] MCHC (RBC) [Mass/Vol] 35.2 g/dL Normal 32-36 [facility] Comment on above: Performed By: #### Kathleen YOUNG, BMP, , 2776-07 #### [facility] ([id number]) [address], [address] [place] [address] MCV (RBC) [Entitic vol] 89 fL Normal 80-100 [facility] Comment on above: Performed By: #### Kathleen BC, BMP, , 2776-07 #### [facility] ([id number]) [address], [address] [place] [address] Platelet mean volume (Bld) [Entitic vol] 7.6 fL Normal 7-12 [facility] Comment on above: Performed By: #### Kathleen BC, BMP, , 2776-07 #### [facility] ([id number]) [address], [address] [place] [address] Platelets (Bld) [#/Vol] 182 10*3/uL Normal 150-450 [facility] Comment on above: Performed By: #### SEBASTIAN MARTIN, , 2776-07 #### [facility] ([id number]) [address], [address] [place] [address] RBC COUNT 3.25 X10E12/L Low 4.10-5.70 [facility] Comment on above: Performed By: #### SEBASTIAN MARTIN, , 2776-07 #### [facility] ([id number]) [address], [address] [place] [address] WBC (Bld) [#/Vol] 6.0 10*3/uL Normal 4.0-11.0 [facility] Comment on above: Performed By: #### SEBASTIAN MARTIN, , 2776-07 #### [facility] ([id number]) [address], [address] [place] [address] Glucose Glucometer (BldC) [M ass/Vol]on 07-25-2023 Glucose [Mass/Vol] 190 mg/dL High 65-99 [facility] Glucose [Mass/Vol] 144 mg/dL High 65-99 [facility] Glucose [Mass/Vol] 200 mg/dL High 65-99 [facility] Glucose [Mass/Vol] 142 mg/dL High 65-99 [facility] Glucose [Mass/Vol] 142 mg/dL High 65-99 [facility] HGB A1C (GLYCO-HGB)on 2023 Glucose [Mass/Vol] 289 mg/dL Normal [facility] Comment on above: Performed By: #### SEBASTIAN MARTIN, , 2776-07 #### [facility] ([id number]) [address], [address] [place] [address] HbA1c (Bld) [Mass fraction] 11.7 % High 4.4-5.6 [facility] Comment on above: Result Comment: NOTE ADA Guidelines Result HgbA1c Normal : less than 5.7 % Prediabetes : 5.7 % to 6.4 % Diabetes : > 6.4 % Use with caution in patients with abnormal hemoglobin variants as the half-life of red blood cells and in vivo glycation rates are affected. Performed By: #### C BC, BMP, [address]-9, 2777-1 #### [facility] ([id number]) [address] [facility], [address] [place] [address] BASIC METABOLIC PANLon 07-24 Anion gap [Moles/Vol] 13 mmol/L Normal 5-15 [facility] Comment on above: Performed By: #### H RTN #### [facility] ([id number]) [address] [place] [address] Calcium [Mass/Vol] 8.1 mg/dL Low 8.5-10.5 [facility] Comment on above: Performed By: #### H RTN #### [facility] ([id number]) [address] [place] [address] Chloride [Moles/Vol] 100 mmol/L Normal 98-109 [facility] Comment on above: Performed By: #### H RTN #### [facility] ([id number]) [address] [place] [address] CO2 [Moles/Vol] 22 mmol/L Normal 22-32 [facility] Comment on above: Performed By: #### H RTN #### [facility] ([id number]) [address] [place] [address] Creatinine [Mass/Vol] 5.36 mg/dL High 0.60-1.30 [facility] Comment on above: Result Comment: METH OD TRACEABLE TO IDMS STANDARD Performed By: #### H RTN #### [facility] ([id number]) [address] [place] [address] GFR/1.73 sq M.predicted among non-blacks MDRD (S/P/Bld) [Vol rate/Area] 11 mL/min/{1.73_m2} Low >59 [facility] Comment on above: Result Comment: Reported eGFR is based on the CKD-EPI 2020 equation that does not use a race coefficient. Performed By: #### H RTN #### [facility] ([id number]) [address] [place] [address] Glucose [Mass/Vol] 100 mg/dL High 65-99 [facility] Comment on above: Performed By: #### H RTN #### [facility] ([id number]) [address] [place] [address] Potassium [Moles/Vol] 4.4 mmol/L Normal 3.5-5.0 [facility] Comment on above: Performed By: #### H RTN #### [facility] ([id number]) [address] [place] [address] Sodium [Moles/Vol] 135 mmol/L Normal 134-146 [facility] Comment on above: Performed By: #### H RTN #### [facility] ([id number]) [address] [place] [address] Urea nitrogen [Mass/Vol] 50 mg/dL High 5-27 [facility] Comment on above: Performed By: #### H RTN #### [facility] ([id number]) [address] [place] [address] COMPLETE BLOOD COUNTon 07-24 Erythrocyte distribution width (RBC) [Ratio] 12.8 % Normal 11.5-15.0 [facility] Comment on above: Performed By: #### H RTN #### [facility] ([id number]) [address] [place] [address] Hematocrit (Bld) [Volume fraction] 29.2 % Low 39-49 [facility] Comment on above: Performed By: #### H RTN #### [facility] ([id number]) [address] [place] [address] Hemoglobin (Bld) [Mass/Vol] 10.1 g/dL Low 13.0-17.0 [facility] Comment on above: Performed By: #### H RTN #### [facility] ([id number]) [address] [place] [address] MCH (RBC) [Entitic mass] 30.5 pg Normal 27-34 [facility] Comment on above: Performed By: #### H RTN #### [facility] ([id number]) [address] [place] [address] MCHC (RBC) [Mass/Vol] 34.7 g/dL Normal 32-36 [facility] Comment on above: Performed By: #### H RTN #### [facility] ([id number]) [address] [place] [address] MCV (RBC) [Entitic vol] 88 fL Normal 80-100 [facility] Comment on above: Performed By: #### H RTN #### [facility] ([id number]) [address] [place] [address] Platelet mean volume (Bld) [Entitic vol] 7.7 fL Normal 7-12 [facility] Comment on above: Performed By: #### H RTN #### [facility] ([id number]) [address] [place] [address] Platelets (Bld) [#/Vol] 150 10*3/uL Normal 150-450 [facility] Comment on above: Performed By: #### H RTN #### [facility] ([id number]) [address] [place] [address] RBC COUNT 3.32 X10E12/L Low 4.10-5.70 [facility] Comment on above: Performed By: #### H RTN #### [facility] ([id number]) [address] [place] [address] WBC (Bld) [#/Vol] 6.9 10*3/uL Normal 4.0-11.0 [facility] Comment on above: Performed By: #### H RTN #### [facility] ([id number]) [address] [place] [address] Glucose Glucometer (BldC) [M ass/Vol]on 07-24-2023 Glucose [Mass/Vol] 144 mg/dL High 65-99 [facility] Glucose [Mass/Vol] 94 mg/dL Normal 65-99 [facility] Glucose [Mass/Vol] 98 mg/dL Normal 65-99 [facility] Glucose [Mass/Vol] 104 mg/dL High 65-99 [facility] Glucose [Mass/Vol] 104 mg/dL High 65-99 [facility] US RETROPERITONEAL COMPLETEo n 07-24-2023 US RETROPERITONEAL [...] Felder MD on 07/24/2023 4:53 PM Normal [facility] ACUTE HEPATITIS PANELon 06-26 ANTI HCV W/PCR REFLX Non-Reactive Normal NRCT [facility] Comment on above: Result Comment: If recent infection suspected, recommend repeat testing (>2 months). Bswdlm-ft-etshsh ratio is <0.80. Performed By: #### H RTN #### [facility] ([id number]) [address] [place] [address] HEPATITIS A IGM Non-Reactive Normal NRCT [facility] Comment on above: Performed By: #### H RTN #### [facility] ([id number]) [address] [place] [address] HEPATITIS B CORE IGM Negative Normal NEG [facility] Comment on above: Performed By: #### H RTN #### [facility] ([id number]) [address] [place] [address] HEPATITIS B SURF AG Negative Normal NEG [facility] Comment on above: Performed By: #### H RTN #### [facility] ([id number]) [address] [place] [address] BASIC METABOLIC PANLon 07-23 Anion gap [Moles/Vol] 12 mmol/L Normal 5-15 [facility] Comment on above: Performed By: #### H RTN #### [facility] ([id number]) [address] [place] [address] Calcium [Mass/Vol] 7.5 mg/dL Low 8.5-10.5 [facility] Comment on above: Performed By: #### H RTN #### [facility] ([id number]) [address] [place] [address] Chloride [Moles/Vol] 100 mmol/L Normal 98-109 [facility] Comment on above: Performed By: #### H RTN #### [facility] ([id number]) [address] [place] [address] CO2 [Moles/Vol] 20 mmol/L Low 22-32 [facility] Comment on above: Performed By: #### H RTN #### [facility] ([id number]) [address] [place] [address] Creatinine [Mass/Vol] 5.62 mg/dL High 0.60-1.30 [facility] Comment on above: Result Comment: METH OD TRACEABLE TO IDMS STANDARD Performed By: #### H RTN #### [facility] ([id number]) [address] [place] [address] GFR/1.73 sq M.predicted among non-blacks MDRD (S/P/Bld) [Vol rate/Area] 11 mL/min/{1.73_m2} Low >59 [facility] Comment on above: Result Comment: Reported eGFR is based on the CKD-EPI 2020 equation that does not use a race coefficient. Performed By: #### H RTN #### [facility] ([id number]) [address] [place] [address] Glucose [Mass/Vol] 148 mg/dL High 65-99 [facility] Comment on above: Performed By: #### H RTN #### [facility] ([id number]) [address] [place] [address] Potassium [Moles/Vol] 4.3 mmol/L Normal 3.5-5.0 [facility] Comment on above: Performed By: #### H RTN #### [facility] ([id number]) [address] [place] [address] Sodium [Moles/Vol] 132 mmol/L Low 134-146 [facility] Comment on above: Performed By: #### H RTN #### [facility] ([id number]) [address] [place] [address] Urea nitrogen [Mass/Vol] 58 mg/dL High 5-27 [facility] Comment on above: Performed By: #### H RTN #### [facility] ([id number]) [address] [place] [address] COMPLEMENT PROFILEon 12-30-2 023 COMPLEMENT C3 96 mg/dL Normal 86-184 [facility] Comment on above: Performed By: #### H RTN #### [facility] ([id number]) [address] [place] [address] COMPLEMENT C4 31 mg/dL Normal 16-47 [facility] Comment on above: Performed By: #### H RTN #### [facility] ([id number]) [address] [place] [address] COMPLETE BLOOD COUNTon 07-23 Erythrocyte distribution width (RBC) [Ratio] 12.8 % Normal 11.5-15.0 [facility] Comment on above: Performed By: #### H RTN #### [facility] ([id number]) [address] [place] [address] Hematocrit (Bld) [Volume fraction] 29.5 % Low 39-49 [facility] Comment on above: Performed By: #### H RTN #### [facility] ([id number]) [address] [place] [address] Hemoglobin (Bld) [Mass/Vol] 10.4 g/dL Low 13.0-17.0 [facility] Comment on above: Performed By: #### H RTN #### [facility] ([id number]) [address] [place] [address] MCH (RBC) [Entitic mass] 31.3 pg Normal 27-34 [facility] Comment on above: Performed By: #### H RTN #### [facility] ([id number]) [address] [place] [address] MCHC (RBC) [Mass/Vol] 35.1 g/dL Normal 32-36 [facility] Comment on above: Performed By: #### H RTN #### [facility] ([id number]) [address] [place] [address] MCV (RBC) [Entitic vol] 89 fL Normal 80-100 [facility] Comment on above: Performed By: #### H RTN #### [facility] ([id number]) [address] [place] [address] Platelet mean volume (Bld) [Entitic vol] 7.8 fL Normal 7-12 [facility] Comment on above: Performed By: #### H RTN #### [facility] ([id number]) [address] [place] [address] Platelets (Bld) [#/Vol] 147 10*3/uL Low 150-450 [facility] Comment on above: Performed By: #### H RTN #### [facility] ([id number]) [address] [place] [address] RBC COUNT 3.31 X10E12/L Low 4.10-5.70 [facility] Comment on above: Performed By: #### H RTN #### [facility] ([id number]) [address] [place] [address] WBC (Bld) [#/Vol] 8.8 10*3/uL Normal 4.0-11.0 [facility] Comment on above: Performed By: #### H RTN #### [facility] ([id number]) [address] [place] [address] Clinical Pathologyon 023 Clinical Pathology Normal [facility] Comment on above: Result Comment: [facility] [address] [place] [address] Clinical Pathology Report Patient Name:ZEV CRYSTAL:1955 (Age: 67)Gender:MTaken:07/23/2023Reported:07/26/2023hysician(s):Ed Russo CNP ([phone])Copy To: Rec. #:[id number]: #[id number] Final Pathologic Diagnosis Polyclonal pattern, no monoclonal bands. Elevated free kappa and lambda light chains suggestive of renal impairment. Report Electronically Signed Out 07/26/2023Diana Curran MD Interpretation performed at [facility], [address] [place] [address], License number: [id number]. Clinical History C64.9, N28.89, R94.4 SERUM IEP SAMPLE NUMBER: [id number] IMMUNOGLOBULIN LEVELS (mg/dL): IgG : 354 IgA : 37 IgM : 232 Free Byron: 7.39 Free Lambda: 3.42 Free Byron/Lambda ratio: 2.16 Specimen(s) Received Serum IEP Fee Codes(s): 1; 71974-19 Creatinine (U) [Mass/Vol]on 07-23-2023 URINE CREATININE,RDM 86.51 mg/dL Normal [facility] Comment on above: Performed By: #### 2 161-8, 2955-3, 2888-6 ####[facility] ([id number])[address] [address], [place] [address] DNA double strand Ab Qn (S)o n 07-23-2023 DOUBLE STRANDED DNA <1 Normal <[address] [facility] Comment on above: Result Comment: Interpretation-------- <5 Negative 5-9 Indeterminate >9 Positive Performed By: #### C 34, [place], 18766-4, SPE, AHP, 5193-8, 30192-8, 5130-0, 6968-2, 76045-8, 6969-0 ####[facility] ([id number])[address] [place] [address], [address] [address] Glomerular basement membrane IgG Qn (S)on 07-23-2023 GBM IgG Ab <0.2 Normal <1.0 [facility] Comment on above: Performed By: #### C [address], ARIST[place]ES, 54775-8, SPE, AHP, 5193-8, 15236-3, 5130-0, 6968-2, 51168-0, 6969-0 ####[facility] ([id number])[address] [facility], [address] [address] Glucose Glucometer (BldC) [M ass/Vol]on 07-23-2023 Glucose [Mass/Vol] 85 mg/dL Normal 65-99 [facility] Glucose [Mass/Vol] 138 mg/dL High 65-99 [facility] Glucose [Mass/Vol] 148 mg/dL High 65-99 [facility] Glucose [Mass/Vol] 145 mg/dL High 65-99 [facility] Glucose [Mass/Vol] 154 mg/dL High 65-99 [facility] HBV surface Ab IA Qnon 07-23 Anti HBs quant. <8.00 Normal [facility] Comment on above: Result Comment: Vacc inated: >=12mIU/mL, Positive (Immune) Unvaccinated: <8mIU/mL, Negative (Not Immune) 8-11.99 mIU/mL: Indeterminate, (Considered Not Immune) Performed By: #### H RTN #### [facility] ([id number]) [address] [place] [address] IMMUNOELECTROPHORESIS FOR TH ERAPY MONITORINGon 07-23-2023 FREE JANESSA/LAMBD RATIO 2.16 High 0.26-1.65 [facility] Comment on above: Performed By: #### H RTN #### [facility] ([id number]) [address] [place] [address] FREE KAPPA LT CHAINS 7.39 mg/dL High 0.33-1.94 [facility] Comment on above: Performed By: #### H RTN #### [facility] ([id number]) [address] [place] [address] FREE LAMBDA LT CHAINS 3.42 mg/dL High 0.57-2.63 [facility] Comment on above: Performed By: #### H RTN #### [facility] ([id number]) [address] [place] [address] IgA [Mass/Vol] 37 mg/dL Low 68-378 [facility] Comment on above: Performed By: #### H RTN #### [facility] ([id number]) [address] [place] [address] IgG [Mass/Vol] 354 mg/dL Low 635-1741 [facility] Comment on above: Performed By: #### H RTN #### [facility] ([id number]) [address] [place] [address] IgM [Mass/Vol] 232 mg/dL Normal 45-281 [facility] Comment on above: Performed By: #### H RTN #### [facility] ([id number]) [address] [place] [address] IMMUNE PROFILE INTERP SEE SEPARATE REPORT Normal [facility] Comment on above: Performed By: #### H RTN #### [facility] ([id number]) [address] [place] [address] IR CICV NON-TUNLD > 5YRSon 1 IR [...] Xavier MD on 07/23/2023 2:06 PM Normal [facility] Myeloperoxidase Ab Qn (S)on 07-23-2023 Myeloperoxidase Ab <0.2 Normal <1.0 [facility] Comment on above: Performed By: #### C 34, [place]ST[place], 56373-8, SPE, AHP, 5193-8, 99590-6, 5130-0, 6968-2, 18529-3, 6969-0 ####[facility] ([id number])[address], [place] [address] Nuclear Ab IA Ql (S)on 07-23 PIA Screen w/reflex Negative Normal NEG [facility] Comment on above: Result Comment: Testing performed using multiplex flow immunoassay. Eleven different antigens associated with systemic autoimmune diseases (dsDNA,Sm,Sm/PORTFOLIO ACCOUNTANT,PORTFOLIO ACCOUNTANT,Chromatin, SSA,SSB,Dilia-1,Scl70,Ribo P,Centromere B) are included in this screening test. Performed By: #### C 34, IMEL, 03278-6, SPE, AHP, 5193-8, 85286-5, 5130-0, 6968-2, 25395-3, 6969-0 ####[facility] ([id number])[address], [address] [address] Protein (U) [Mass/Vol]on RANDOM URINE PROTEIN 4080 mg/L High <120 [facility] Comment on above: Performed By: #### 2 161-8, 2955-3, 2888-6 ####[facility] ([id number])[address] [address] Proteinase 3 Ab Qn (S)on Proteinase 3 IgG Ab <0.2 Normal <1.[address] [facility] Comment on above: Performed By: #### C 34, IMEL, 92721-5, SPE, AHP, 5193-8, 50713-6, 5130-0, 6968-2, 04540-4, 6969-0 ####[facility] ([id number])[address] [address] Rheumatoid factor Nephelomet ry Qn (S)on 07-23-2023 RHEUMATOID FACTOR <10 Normal <20 [facility] Comment on above: Performed By: #### H RTN #### [facility] ([id number]) [address] [place] [address] SERUM PROTEIN ELECTROPHORESI Son 07-23-2023 Albumin [Mass/Vol] 2.8 g/dL Low 3.4-5.3 [facility] Comment on above: Performed By: #### H RTN #### [facility] ([id number]) [address] [place] [address] ALPHA 1 GLOBULIN 0.4 g/dL Normal 0.1-0.4 [facility] Comment on above: Performed By: #### H RTN #### [facility] ([id number]) [address] [place] [address] ALPHA 2 GLOBULIN 0.5 g/dL Normal 0.4-1.1 [facility] Comment on above: Performed By: #### H RTN #### [facility] ([id number]) [address] [place] [address] BETA GLOBULIN 0.5 g/dL Normal 0.5-1.2 [facility] Comment on above: Performed By: #### H RTN #### [facility] ([id number]) [address] [place] [address] GAMMA GLOBULIN 0.4 g/dL Low 0.5-1.6 [facility] Comment on above: Performed By: #### H RTN #### [facility] ([id number]) [address] [place] [address] PROT. ELECTROPHORESIS INTERP Unremarkable protein distribution, no monoclonal bands. Normal [facility] Comment on above: Performed By: #### H RTN #### [facility] ([id number]) [address] [place] [address] Protein [Mass/Vol] 4.7 g/dL Low 6.0-8.0 [facility] Comment on above: Performed By: #### H RTN #### [facility] ([id number]) [address] [place] [address] URINALYSISon 07-23-2023 Bilirubin Ql (U) Negative Normal NEG [facility] BLOOD/HGB Large Abnormal NEG [facility] Color (U) YELLOW Normal YELLOW [facility] Glucose Ql (U) 70 mg/dL Abnormal NEG [facility] GRANULAR CASTS 3 /lpf High 0 [facility] Ketones Ql (U) Trace Abnormal NEG [facility] Leukocyte esterase Test strip Ql (U) Trace Abnormal NEG [facility] MUCOUS PRESENT Abnormal NONE [facility] Nitrite Ql (U) Negative Normal NEG [facility] pH (U) 6.0 [pH] Normal 5.0-8.5 [facility] Protein Ql (U) 300 mg/dL Abnormal NEG [facility] R.B.CELLS 118 /hpf High 0-5 [facility] Specific gravity (U) [Rel density] 1.019 Normal 1.003-1.03 5 [facility] SQUAMOUS EPITHELIUM <1 Normal 0-5 [facility] TURBIDITY HAZY Abnormal CLEAR [facility] Urobilinogen (U) [Mass/Vol] mg/dL Normal <1.1 [facility] W.B.CELLS 20 /hpf High 0-5 [facility] URINE SODIUM,RANDOMon 2022 Sodium (U) [Moles/Vol] 47 mmol/L Normal [facility] Comment on above: Performed By: #### 2 161-8, 2955-3, 2888-6 ####[facility] ([id number])[address], [address], [place] [address] BASIC METABOLIC PANLon 07-22 Anion gap [Moles/Vol] 10 mmol/L Normal 5-15 [facility] Comment on above: Performed By: #### B MP, CBC, 60758-9, FEPR, 2276-4, 2284-8, 2132-9 #### [facility] ([id number]) [address], [address] [place] [address] Calcium [Mass/Vol] 7.6 mg/dL Low 8.5-10.5 [facility] Comment on above: Performed By: #### B MP, CBC, 08952-6, FEPR, 2276-4, 228-8, 2132-03 #### [facility] ([id number]) [address], [address] [place] [address] Chloride [Moles/Vol] 106 mmol/L Normal 98-109 [facility] Comment on above: Performed By: #### B MP, CBC, 63857-8, FEPR, 2276-4, 228-8, 2132-03 #### [facility] ([id number]) [address], [address] [place] [address] CO2 [Moles/Vol] 18 mmol/L Low 22-32 [facility] Comment on above: Performed By: #### B MP, CBC, 96688-1, FEPR, 6-4, 2283-8, 2132-03 #### [facility] ([id number]) [address], [address] [place] [address] Creatinine [Mass/Vol] 3.78 mg/dL High 0.60-1.30 [facility] Comment on above: Result Comment: METH OD TRACEABLE TO IDMS STANDARD Performed By: #### B MP, CBC, 88933-4, FEPR, 2276-4, 228-8, 2132-03 #### [facility] ([id number]) [address], [address] [place] [address] GFR/1.73 sq M.predicted among non-blacks MDRD (S/P/Bld) [Vol rate/Area] 17 mL/min/{1.73_m2} Low >59 [facility] Comment on above: Result Comment: Reported eGFR is based on the CKD-EPI 2020 equation that does not use a race coefficient. Performed By: #### B MP, CBC, 47891-8, FEPR, 2276-4, 228-8, 2132-03 #### [facility] ([id number]) [address], [address] [place] [address] Glucose [Mass/Vol] 176 mg/dL High 65-99 [facility] Comment on above: Performed By: #### B MP, CBC, 57752-7, FEPR, 2276-4, 2284-8, 2132-03 #### [facility] ([id number]) [address], [address] [place] [address] Potassium [Moles/Vol] 5.0 mmol/L Normal 3.5-5.0 [facility] Comment on above: Performed By: #### B MP, CBC, 62702-4, FEPR, 2276-4, 2283-8, 2132-03 #### [facility] ([id number]) [address], [address] [place] [address] Sodium [Moles/Vol] 134 mmol/L Normal 134-146 [facility] Comment on above: Performed By: #### B MP, CBC, 10385-7, FEPR, 2276-4, 228-8, 2132-03 #### [facility] ([id number]) [address], [address] [place] [address] Urea nitrogen [Mass/Vol] 43 mg/dL High 5-27 [facility] Comment on above: Performed By: #### B MP, CBC, 31020-9, FEPR, 2276-4, 2284-8, 2132-03 #### [facility] ([id number]) [address], [address] [place] [address] COMPLETE BLOOD COUNTon 07-22 Erythrocyte distribution width (RBC) [Ratio] 13.1 % Normal 11.5-15.0 [facility] Comment on above: Performed By: #### A FAB5 #### [facility] ([id number]) [address] [place] [address] Hematocrit (Bld) [Volume fraction] 31.8 % Low 39-49 [facility] Comment on above: Performed By: #### A FAB5 #### [facility] ([id number]) [address] [place] [address] Hemoglobin (Bld) [Mass/Vol] 10.9 g/dL Low 13.0-17.0 [facility] Comment on above: Performed By: #### A FAB5 #### [facility] ([id number]) [address] [place] [address] MCH (RBC) [Entitic mass] 31.1 pg Normal 27-34 [facility] Comment on above: Performed By: #### A FAB5 #### [facility] ([id number]) [address] [place] [address] MCHC (RBC) [Mass/Vol] 34.4 g/dL Normal 32-36 [facility] Comment on above: Performed By: #### A FAB5 #### [facility] ([id number]) [address] [place] [address] MCV (RBC) [Entitic vol] 90 fL Normal 80-100 [facility] Comment on above: Performed By: #### A FAB5 #### [facility] ([id number]) [address] [place] [address] Platelet mean volume (Bld) [Entitic vol] 7.4 fL Normal 7-12 [facility] Comment on above: Performed By: #### A FAB5 #### [facility] ([id number]) [address] [place] [address] Platelets (Bld) [#/Vol] 178 10*3/uL Normal 150-450 [facility] Comment on above: Performed By: #### A FAB5 #### [facility] ([id number]) [address] [place] [address] RBC COUNT 3.52 X10E12/L Low 4.10-5.70 [facility] Comment on above: Performed By: #### A FAB5 #### [facility] ([id number]) [address] [place] [address] WBC (Bld) [#/Vol] 10.9 10*3/uL Normal 4.0-11.[address] [facility] Comment on above: Performed By: #### A FAB5 #### [facility] ([id number]) [address] [place] [address] FERRITINon 07-22-2023 Ferritin [Mass/Vol] 68 ng/mL Normal 24-[address] [facility] Comment on above: Performed By: #### A FAB5 #### [facility] ([id number]) [address] [place] [address] FLUID CREATININEon Creatinine [Mass/Vol] 4.00 mg/dL Normal [facility] Comment on above: Result Comment: The reference interval and other method performance specifications are unavailable for this body fluid. Comparison of this result to serum or plasma is recommended. Performed By: #### A FAB5 #### [facility] ([id number]) [address] [place] [address] CRET SPECIMEN TYPE ASPIRATE Normal [facility] Comment on above: Result Comment: FARHAT D RAIN LT KIDNEY Performed By: #### A FAB5 #### [facility] ([id number]) [address] [place] [address] Folate [Mass/Vol]on 07-22-20 FOLIC ACID 7.8 ng/mL Normal >5.8 [facility] Comment on above: Result Comment: NEW REFERENCE RANGE Performed By: #### A FAB5 #### [facility] ([id number]) [address] [place] [address] Glucose Glucometer (BldC) [M ass/Vol]on 07-22-2023 Glucose [Mass/Vol] 172 mg/dL High 65-99 [facility] IRON PROFILEon 07-22-2023 Iron [Mass/Vol] 22 ug/dL Low 50-212 [facility] Comment on above: Performed By: #### A FAB5 #### [facility] ([id number]) [address] [place] [address] IRON BINDING 279 ug/dL Normal 250-425 [facility] Comment on above: Performed By: #### A FAB5 #### [facility] ([id number]) [address] [place] [address] IRON SATURATION 8 % SATURATION Low 20-[address] [facility] Comment on above: Performed By: #### A ELENA5 #### [facility] ([id number]) [address] [place] [address] MAGNESIUMon 07-22-2023 Magnesium [Mass/Vol] 2.1 mg/dL Normal 1.8-2.6 [facility] Comment on above: Performed By: #### A FAB5 #### [facility] ([id number]) [address] [place] [address] Magnesium Ionized ISE (Bld) [Moles/Vol]on 07-22-2023 Magnesium [Moles/Vol] 0.56 mmol/L Normal 0.45-0.74 [facility] Comment on above: Result Comment: NEW REFERENCE RANGE Performed By: #### A FAB5 #### [facility] ([id number]) [address] [place] [address] VITAMIN B12on 07-22-2023 Cobalamin (Vitamin B12) [Mass/Vol] 283 pg/mL Normal 180-914 [facility] Comment on above: Performed By: #### A FAB5 #### [facility] ([id number]) [address] [place] [address] ABG RAPID K GLU HHon 023 WILLARD'S TEST Normal [facility] Comment on above: Performed By: #### H RTN #### [facility] ([id number]) [address] [place] [address] BASE,DEFICIT 4.8 MMOL/L High 0.0-2.0 [facility] Comment on above: Performed By: #### H RTN #### [facility] ([id number]) [address] [place] [address] Body temperature 98.6 [degF] Normal 37.0 [facility] Comment on above: Performed By: #### H RTN #### [facility] ([id number]) [address] [place] [address] Glucose [Mass/Vol] 138 mg/dL High 65-99 [facility] Comment on above: Performed By: #### H RTN #### [facility] ([id number]) [address] [place] [address] HCO3 (Bld) [Moles/Vol] 20.1 mmol/L Low 22-26 P [facility] Comment on above: Performed By: #### H RTN #### [facility] ([id number]) [address] [place] [address] Hematocrit (Bld) [Volume fraction] 37 % Low 39-49 [facility] Comment on above: Performed By: #### H RTN #### [facility] ([id number]) [address] [place] [address] Hemoglobin (Bld) [Mass/Vol] 12.1 g/dL Low 13.0-17.0 [facility] Comment on above: Performed By: #### H RTN #### [facility] ([id number]) [address] [place] [address] INSP. O2 CONC. 100 % Normal [facility] Comment on above: Performed By: #### H RTN #### [facility] ([id number]) [address] [place] [address] Oxygen (Bld) [Partial pressure] 179 mm[Hg] High 80-100 [facility] Comment on above: Performed By: #### H RTN #### [facility] ([id number]) [address] [place] [address] Oxygen saturation in Blood 100.4 % Normal >90 [facility] Comment on above: Performed By: #### H RTN #### [facility] ([id number]) [address] [place] [address] PCO2 33.0 MMHG Low 35-45 [facility] Comment on above: Performed By: #### H RTN #### [facility] ([id number]) [address] [place] [address] pH (Bld) 7.393 [pH] Normal 7.350-7.45 0 [facility] Comment on above: Performed By: #### H RTN #### [facility] ([id number]) [address] [place] [address] Potassium [Moles/Vol] 3.3 mmol/L Low 3.5-5.0 [facility] Comment on above: Performed By: #### H RTN #### [facility] ([id number]) [address] [place] [address] SAMPLE SITE ANDRAE Normal [facility] Comment on above: Performed By: #### H RTN #### [facility] ([id number]) [address] [place] [address] SAMPLE TYPE Arterial Normal [facility] Comment on above: Performed By: #### H RTN #### [facility] ([id number]) [address] [place] [address] WILLARD'S TEST Normal [facility] Comment on above: Performed By: #### H RTN #### [facility] ([id number]) [address] [place] [address] BASE,DEFICIT 0.8 MMOL/L Normal 0.0-2.0 [facility] Comment on above: Performed By: #### H RTN #### [facility] ([id number]) [address] [place] [address] Body temperature 98.6 [degF] Normal 37.0 [facility] Comment on above: Performed By: #### H RTN #### [facility] ([id number]) [address] [place] [address] Glucose [Mass/Vol] 212 mg/dL High 65-99 [facility] Comment on above: Performed By: #### H RTN #### [facility] ([id number]) [address] [place] [address] HCO3 (Bld) [Moles/Vol] 24.4 mmol/L Normal 22-26 [facility] Comment on above: Performed By: #### H RTN #### [facility] ([id number]) [address] [place] [address] Hematocrit (Bld) [Volume fraction] 42 % Normal 39-49 [facility] Comment on above: Performed By: #### H RTN #### [facility] ([id number]) [address] [place] [address] Hemoglobin (Bld) [Mass/Vol] 13.8 g/dL Normal 13.0-17.0 [facility] Comment on above: Performed By: #### H RTN #### [facility] ([id number]) [address] [place] [address] INSP. O2 CONC. 100 % Normal [facility] Comment on above: Performed By: #### H RTN #### [facility] ([id number]) [address] [place] [address] Oxygen (Bld) [Partial pressure] 196 mm[Hg] High 80-100 [facility] Comment on above: Performed By: #### H RTN #### [facility] ([id number]) [address] [place] [address] Oxygen saturation in Blood 100.3 % Normal >90 [facility] Comment on above: Performed By: #### H RTN #### [facility] ([id number]) [address] [place] [address] PCO2 41.9 MMHG Normal 35-45 [facility] Comment on above: Performed By: #### H RTN #### [facility] ([id number]) [address] [place] [address] pH (Bld) 7.374 [pH] Normal 7.350-7.45 0 [facility] Comment on above: Performed By: #### H RTN #### [facility] ([id number]) [address] [place] [address] Potassium [Moles/Vol] 5.0 mmol/L Normal 3.5-5.0 [facility] Comment on above: Performed By: #### H RTN #### [facility] ([id number]) [address] [place] [address] SAMPLE SITE ANDRAE Normal [facility] Comment on above: Performed By: #### H RTN #### [facility] ([id number]) [address] [place] [address] SAMPLE TYPE Arterial Normal [facility] Comment on above: Performed By: #### H RTN #### [facility] ([id number]) [address] [place] [address] BASIC METABOLIC PANLon 07-21 Anion gap [Moles/Vol] 5 mmol/L Normal 5-15 [facility] Comment on above: Performed By: #### C HANNAH, SEBASTIAN, , 2776-07 #### [facility] ([id number]) [address], [address] [place] [address] Calcium [Mass/Vol] 8.0 mg/dL Low 8.5-10.5 [facility] Comment on above: Performed By: #### C HANNAH, BMP, , 2776-07 #### [facility] ([id number]) [address], [facility] [address] [place] [address] Chloride [Moles/Vol] 109 mmol/L Normal 98-109 [facility] Comment on above: Performed By: #### Kathleen YOUNG, SEBASTIAN, , 2776-07 #### [facility] ([id number]) [address] [address] [place] [address] CO2 [Moles/Vol] 25 mmol/L Normal 22-32 [facility] Comment on above: Performed By: #### Kathleen YOUNG, SEBASTIAN, , 2776-07 #### [facility] ([id number]) [address] [address] [place] [address] Creatinine [Mass/Vol] 1.92 mg/dL High 0.60-1.30 [facility] Comment on above: Result Comment: METH OD TRACEABLE TO IDMS STANDARD Performed By: #### Kathleen YOUNG, BMP, , 2776-07 #### [facility] ([id number]) [address] [address] [place] [address] GFR/1.73 sq M.predicted among non-blacks MDRD (S/P/Bld) [Vol rate/Area] 38 mL/min/{1.73_m2} Low >59 [facility] Comment on above: Result Comment: Reported eGFR is based on the CKD-EPI 2020 equation that does not use a race coefficient. Performed By: #### C BC, BMP, , 2776-07 #### [facility] ([id number]) [address], [address] [place] [address] Glucose [Mass/Vol] 151 mg/dL High 65-99 [facility] Comment on above: Performed By: #### C SEBASTIAN YOUNG, , 2776-07 #### [facility] ([id number]) [address], [address] [place] [address] Potassium [Moles/Vol] 4.2 mmol/L Normal 3.5-5.0 [facility] Comment on above: Performed By: #### C SEBASTIAN YOUNG, , 2776-07 #### [facility] ([id number]) [address], [address] [place] [address] Sodium [Moles/Vol] 139 mmol/L Normal 134-146 [facility] Comment on above: Performed By: #### SEBASTIAN MARTIN, , 2776-07 #### [facility] ([id number]) [address], [address] [place] [address] Urea nitrogen [Mass/Vol] 25 mg/dL Normal 5-27 [facility] Comment on above: Performed By: #### SEBASTIAN MARTIN, , 2776-07 #### [facility] ([id number]) [address], [address] [place] [address] COMPLETE BLOOD COUNTon 07-21 Erythrocyte distribution width (RBC) [Ratio] 13.1 % Normal 11.5-15.0 [facility] Comment on above: Performed By: #### SEBASTIAN MARTIN, , 2776-07 #### [facility] ([id number]) [address], [address] [place] [address] Hematocrit (Bld) [Volume fraction] 38.1 % Low 39-49 [facility] Comment on above: Performed By: #### C SEBASTIAN YOUNG, , 2776-07 #### [facility] ([id number]) [address], [address] [place] [address] Hemoglobin (Bld) [Mass/Vol] 13.1 g/dL Normal 13.0-17.0 [facility] Comment on above: Performed By: #### C BC, BMP, , 2776-07 #### [facility] ([id number]) [address], [address] [place] [address] MCH (RBC) [Entitic mass] 30.8 pg Normal 27-34 [facility] Comment on above: Performed By: #### C BC, BMP, , 2776-07 #### [facility] ([id number]) [address], [address] [place] [address] MCHC (RBC) [Mass/Vol] 34.5 g/dL Normal 32-36 [facility] Comment on above: Performed By: #### C HANNAH, BMP, , 2776-07 #### [facility] ([id number]) [address], [address] [place] [address] MCV (RBC) [Entitic vol] 89 fL Normal 80-100 [facility] Comment on above: Performed By: #### C HANNAH, BMP, , 2776-07 #### [facility] ([id number]) [address], [address] [place] [address] Platelet mean volume (Bld) [Entitic vol] 7.6 fL Normal 7-12 [facility] Comment on above: Performed By: #### C BC, BMP, , 2776-07 #### [facility] ([id number]) [address], [address] [place] [address] Platelets (Bld) [#/Vol] 196 10*3/uL Normal 150-450 [facility] Comment on above: Performed By: #### C SEBASTIAN YOUNG, , 2776-07 #### [facility] ([id number]) [address], [address] [place] [address] RBC COUNT 4.26 X10E12/L Normal 4.10-5.70 [facility] Comment on above: Performed By: #### SEBASTIAN MARTIN, , 2776-07 #### [facility] ([id number]) [address], [address] [place] [address] WBC (Bld) [#/Vol] 13.9 10*3/uL High 4.0-11.[address] [facility] Comment on above: Performed By: #### C SEBASTIAN YOUNG, , 2776-07 #### [facility] ([id number]) [address] [place] [address] Glucose Glucometer (BldC) [M ass/Vol]on 07-21-2023 Glucose [Mass/Vol] 138 mg/dL High 65-99 [facility] Glucose [Mass/Vol] 104 mg/dL High 65-99 [facility] MAGNESIUMon 07-21-2023 Magnesium [Mass/Vol] 1.5 mg/dL Low 1.8-2.6 [facility] Comment on above: Performed By: #### SEBASTIAN MARTIN, , 2776-07 #### [facility] ([id number]) [address] [place] [address] PHOSPHORUSon 07-21-2023 Phosphate [Mass/Vol] 3.0 mg/dL Normal 2.4-4.9 [facility] Comment on above: Performed By: #### C SEBASTIAN YOUNG, , 2776-07 #### [facility] ([id number]) [address], [address] [place] [address] RAPID CARDIACon 07-21-2023 WILLARD'S TEST Normal [facility] Comment on above: Performed By: #### A FAB5 #### [facility] ([id number]) [address] [place] [address] BASE,DEFICIT 0.3 MMOL/L Normal 0.0-2.0 [facility] Comment on above: Performed By: #### A FAB5 #### [facility] ([id number]) [address] [place] [address] Body temperature 98.6 [degF] Normal 37.0 [facility] Comment on above: Performed By: #### A FAB5 #### [facility] ([id number]) [address] [place] [address] Glucose [Mass/Vol] 126 mg/dL High 65-99 [facility] Comment on above: Performed By: #### A FAB5 #### [facility] ([id number]) [address] [place] [address] HCO3 (Bld) [Moles/Vol] 24.6 mmol/L Normal 22-26 P [facility] Comment on above: Performed By: #### A FAB5 #### [facility] ([id number]) [address] [place] [address] Hematocrit (Bld) [Volume fraction] 41 % Normal 39-49 [facility] Comment on above: Performed By: #### A FAB5 #### [facility] ([id number]) [address] [place] [address] Hemoglobin (Bld) [Mass/Vol] 13.4 g/dL Normal 13.0-17.0 [facility] Comment on above: Performed By: #### A FAB5 #### [facility] ([id number]) [address] [place] [address] INSP. O2 CONC. 100 % Normal [facility] Comment on above: Performed By: #### A FAB5 #### [facility] ([id number]) [address] [place] [address] IONIZED CALCIUM 4.7 mg/dL Normal 4.5-5.3 [facility] Comment on above: Performed By: #### A FAB5 #### [facility] ([id number]) [address] [place] [address] Oxygen (Bld) [Partial pressure] 200 mm[Hg] High 80-100 [facility] Comment on above: Performed By: #### A FAB5 #### [facility] ([id number]) [address] [place] [address] Oxygen saturation in Blood 100.6 % Normal >90 [facility] Comment on above: Performed By: #### A FAB5 #### [facility] ([id number]) [address] [place] [address] PCO2 40.1 MMHG Normal 35-45 [facility] Comment on above: Performed By: #### A FAB5 #### [facility] ([id number]) [address] [place] [address] pH (Bld) 7.397 [pH] Normal 7.350-7.45 0 [facility] Comment on above: Performed By: #### A FAB5 #### [facility] ([id number]) [address] [place] [address] Potassium [Moles/Vol] 3.5 mmol/L Normal 3.5-5.0 [facility] Comment on above: Performed By: #### A FAB5 #### [facility] ([id number]) [address] [place] [address] SAMPLE SITE ANDRAE [facility] Comment on above: Performed By: #### A FAB5 #### [facility] ([id number]) [address] [place] [address] SAMPLE TYPE Arterial Normal [facility] Comment on above: Performed By: #### A FAB5 #### [facility] ([id number]) [address] [place] [address] Surgical Pathologyon 023 Surgical Pathology Normal [facility] Comment on above: Result Comment: [facility] [address] [place] [address] Surgical Pathology Consultation Patient Name:ZEV CRYSTAL:1955 (Age: 67)Gender:MTaken:07/21/2023Reported:08/03/2023hysician(s):Jelly Telles M.D. ([phone])Copy To: Rec. #:[id number]: #[id number] Final Pathologic Diagnosis 1. Right renal mass [...] reactive hyperplasia v.4.1.0.0/gp/4.7.23 Report Electronically Signed Out ao/4Ajohn Arango MD Interpretation performed at [facility], [facility]0 [facility], [place] [address], License number: [id number]. Clinical History Renal cell carcinoma. Gross Description [...] reveal bermeo-brown, glistening and uniform cut surfaces. Blending Line Attendant sections are submitted for frozen section as FSA. The remainder of the specimen is submitted for routine H&E processing in cassette A???B. (3, ns, [id number], FSA, A???B, m6) JG 2. Received fresh for frozen section labeled SMILEY, right renal mass for frozen #2 is [...] bermeo-pink, glistening and uniform cut surfaces. A brewery representative section of the renal tissue is submitted for frozen section as FSA. The remainder of the renal tissue is submitted for routine H&E processing in cassette A???H with the fibromembranous tissue entirely submitted in cassette I???J. (11, ns, [id number], FSA, A???J, m6) JG 3. Received fresh for intraoperative consult labeled [...] entirely submitted in cassette A???J. (10, ns, [id number], A???I, m6) JG [facility]/07/21/2023O Intraoperative Consultation FROZEN SECTION DIAGNOSIS 1. Right renal mass Benign renal tissue with prominent lymphoid aggregates, 1 PIN-AO 2. Right renal mass #2 Benign renal tissue with prominent lymphoid aggregates, 1 PIN- (more content not included)... APTTon 12-23-2022 ACTIVATED PARTIAL THROMBOPLASTIN TIME IN PPP BY COAGULATION ASSAY 40.0 Seconds High 25.0-35.0 [facility] Comment on above: Result Comment: Clin ical significance of the APTT is questionable in the presence of heparin. Performed By: #### L [id number] #### [facility] (BEAKER) [address] [place] [address] CBCon 12-23-2022 Erythrocyte distribution width (RBC) [Ratio] 12.4 % Normal 11.5-15.0 [facility] Comment on above: Performed By: #### L [id number] #### [facility] (BEAKER) [address] [place] [address] ERYTHROCYTE MEAN CORPUSCULAR HEMOGLOBIN CONCENTRATION (G/DL) BY AUTOMATED 35.5 g/dL High 32.0-35.0 [facility] Comment on above: Performed By: #### L [id number] #### [facility] (BEAKER) [address] [place] [address] Hematocrit (Bld) [Volume fraction] 43.4 % Normal 39.0-55.0 [facility] Comment on above: Performed By: #### L [id number] #### [facility] ([facility] [address] [place] [address] Hemoglobin (Bld) [Mass/Vol] 15.4 g/dL Normal 13.0-17.0 [facility] Comment on above: Performed By: #### L [id number] #### [facility] ([facility]) [address] [place] [address] MCH (RBC) [Entitic mass] 29.9 pg Normal 27.0-33.0 [facility] Comment on above: Performed By: #### L [id number] #### [facility] ([facility]) [address] [place] [address] MCV (RBC) [Entitic vol] 84.3 fL Normal 82.0-98.0 [facility] Comment on above: Performed By: #### L [id number] #### [facility] ([facility]) [address] [place] [address] PLATELETS (10*3/UL) IN BLOOD AUTOMATED COUNT 170 10*3/uL Normal 150-400 [facility] Comment on above: Performed By: #### L [id number] #### [facility] ([facility]) [address] [place] [address] RBC (Bld) [#/Vol] 5.15 10*6/uL Normal 4.20-5.70 [facility] Comment on above: Performed By: #### L [id number] #### [facility] ([facility]) [address] [place] [address] WBC (Bld) [#/Vol] 9.84 10*3/uL Normal 4.00-10.60 [facility] Comment on above: Performed By: #### L [id number] #### [facility] ([facility]) [address] [place] [address] HISTOLOGY - TISSUE EXAMon LAB AP CASE REPORT Normal [facility] Comment on above: Result Comment: Surg ical Pathology Case: [id number] Authorizing Provider: Dylan Tapia MD Collected: 12/23/2022 1113 Ordering Location: [facility] CT Imaging Received: 12/23/2022 1254 Pathologist: Brent Wynn MD Specimen: Kidney, right [place] Performed By: #### L [id number] #### [facility] ([facility]) [address] [place] [address] LAB AP CLINICAL INFORMATION Order Diagnoses [place] Comment on above: Result Comment: N28. 89 - Renal mass [ICD-10-CM] N28.89 - Right renal mass [ICD-10-CM] Performed By: #### L [id number] #### [facility] ([facility]) [address] [place] [address] LAB AP DIAGNOSIS COMMENT [place] Comment on above: Result Comment: No r enal parenchyma identified. Clinical and radiologic correlation suggested. Immediate adequacy by imprint cytology (touch preparations) was performed by Dr. Brent Wynn. Pass #1: Adequate Pass #2: Adequate Pass #3: Inadequate Pass #4: Defer (formalin) When additional subsequent imprint cytologic evaluations are performed, they are done in order to obtain an adequate amount of brewery representative material of the tumor/lesion for diagnosis and/or ancillary studies. Performed By: #### L [id number] #### [facility] ([facility]) [address] [place] [address] LAB AP GROSS DESCRIPTION A. Kidney. [place] Comment on above: Result Comment: Part A is received in formalin and labeled Zev Crystal and right [place] kidney biopsy. It consists of 4 small, bermeo-pink fragments of soft tissue measuring 0.5 x 0.3 cm in aggregate. The specimen is submitted in toto in 1 cassette. Ruma Rouse, Pathologists' Rail Car Mechanic Student Mathew Gandara, Pathologists' Rail Car Mechanic Performed By: #### L [id number] #### [facility] (BEAKER) [address] [place] [address] LAB AP MICROSCOPIC DESCRIPTION Microscopic examination performed. [place] Comment on above: Performed By: #### L [id number] #### [facility] (BEAKER) [address] [place] [address] LAB AP REPORT FINAL DIAGNOSIS NARRATIVE Normal [facility] Comment on above: Result Comment: Shayla bruno, right, CT-guided needle core biopsy: Chronically inflamed reactive fibrovascular adipose tissue (see comment). No malignancy identified. Performed By: #### L [id number] #### [facility] ([facility]) [address] [place] [address] NON-STENCIL PRINTER CYTOLOGY - CELLULAR EXAMon 12-23-2022 LAB AP CASE REPORT Normal [facility] Comment on above: Result Comment: Non- gynecologic Cytology Case: [id number] Authorizing Provider: Dylan Tapia MD Collected: 12/23/2022 1142 Ordering Location: [facility] CT Imaging Received: 12/23/2022 1153 Pathologist: Yodit Moran MD Specimen: Kidney, right [place] kidney mass Performed By: #### L [id number] #### [facility] ([facility]) [address] [facility] [place] [address] LAB AP CLINICAL INFORMATION Order Diagnoses Normal [facility] Comment on above: Result Comment: N28. 89 - Renal mass [ICD-10-CM] N28.89 - Right renal mass [ICD-10-CM] Performed By: #### L AB13 #### [facility] ([facility]) [address] [place] [address] LAB AP DIAGNOSIS COMMENT Normal [facility] Comment on above: Result Comment: See also concurrent biopsy, [id number]. Performed By: #### L [id number] #### [facility] (BEAKER) [address] [place] [address] LAB AP GROSS DESCRIPTION 30 mL CytoLyt with yellow, cloudy fluid . [place] Comment on above: Performed By: #### L [id number] #### [facility] (BEAKER) [address] [place] [address] LAB AP REPORT FINAL DIAGNOSIS NARRATIVE Normal [facility] Comment on above: Result Comment: Jac leggett, right, fluid aspiration: - Negative for malignancy. - Consistent with cyst contents. Performed By: #### L AB13 #### [facility] (BEAKER) [address] [place] [address] Orders Onlyon 12-23-2022 Orders Only [id number] CrystalRené 1955 [facility] Provider Department Center 12/23/2022 270-AMBROCIO RAYMUNDO [facility] CT Radiology No family history on file Normal [facility] PROTIME-INRon 12-23-2022 INR IN PPP BY COAGULATION ASSAY 1.02 Normal 0.90-1.10 [facility] Comment on above: Result Comment: ACCC P [...] 1995;108:[id number]-246S. Performed By: #### L [id number] #### [facility] (BEAKER) [address] [place] [address] PROTHROMBIN TIME (PT) IN PPP BY COAGULATION ASSAY 13.4 Seconds Normal 12.3-14.8 [facility] Comment on above: Performed By: #### L [id number] #### [facility] (BEAKER) [address] [place] [address] CA 19-9on 12-04-2022 CA 19-9 15 U/mL Normal 0-35 [facility] Comment on above: Result Comment: What's More Alive Than You Electrochemiluminescence Immunoassay (ECLIA) . Values obtained with different assay methods or kits cannot be used interchangeably. Results cannot be interpreted as absolute evidence of the presence or absence of malignant disease. Performed By: #### C A 19,9 #### [facility] [address] [place], [place] [address] Dr. Sayra Duron US KIDNEYSon 12-04-2022 US KIDNEYS US KIDNEYS EXAM DATE: 12/04/2022 9:18 AM MDT COMPARISON: MRI abdomen without contrast 11/30/2022. CT abdomen and pelvis without contrast 10/28/2022. CT abdomen and pelvis with contrast 06/30/2019. INDICATION: Right kidney mass. TECHNIQUE: Real-time ultrasound scanning of the kidneys and bladder was performed by the iphone developer. Blending Line Attendant static images are submitted for review. FINDINGS: [...] by: GUSTAVO GONZALEZ Date: 2022-12-04 13:03 Normal [facility] MRI ABDOMEN WO CONon 023 MRI ABDOMEN WO CON EXAMINATION: MRI ABD OMEN WO CON HISTORY: Imaging of abdomen abnormal COMPARISON: Report from CT abdomen pelvis 10/28/[address] [facility] TECHNIQUE: MRCP was performed without contrast [...] appreciable mass or stone. Electronically authenticated by: ZEV GREENWOOD Date: 2022-11-30 15:06 Normal [facility] XR FOREIGN BODY EYEon 2022 XR FOREIGN BODY EYE EXAMINATION: XR FORE IGN BODY EYE HISTORY: Foreign body in eye COMPARISON: No relevant comparison available. FINDINGS: ORBITS: Negative for a metallic foreign body. OTHER: Negative. IMPRESSION: 1. No metallic foreign body within the orbits. Electronically authenticated by: ZEV GREENWOOD Date: 2022-11-30 08:53 Normal [facility] Vital Signs Date Time Vital Sign Value Performing Clinician Cristi jimenez 12-26-2023 13:06-0400 Blood Pressure Location Ga FRANK [facility] 12-26-2023 13:06-0400 Diastolic blood pressure 81 mm[Hg] Ga FRANK [facility] 12-26-2023 13:06-0400 Heart rate 76 /min Ga FRANK [facility] 12-26-2023 13:06-0400 Respiratory rate 16 /min Ga JOAQUINL [facility] 12-26-2023 13:06-0400 Systolic blood pressure 161 mm[Hg] Ga JOAQUINL [facility] 09-30-2023 15:11-0500 Body height 175.3 cm Mary Telles MD Work Phone: [facility] 09-30-2023 15:11-0500 Body mass index (BMI) [Ratio] 27.91 kg/m2 Mary Telles MD Work Phone: [facility] 09-30-2023 15:11-0500 Body weight 85.73 kg Mary Telles MD Work Phone: [facility] 09-30-2023 15:11-0500 Diastolic blood pressure 69 mm[Hg] Mary Telles MD Work Phone: [facility] 09-30-2023 15:11-0500 Heart rate 69 /min Mary Telles MD Work Phone: [facility] 09-30-2023 15:11-0500 Systolic blood pressure 116 mm[Hg] Mary Telles MD Work Phone: [facility] 08-05-2023 15:21-0500 Body height 175.3 cm Mary Telles MD Work Phone: [facility] 08-05-2023 15:21-0500 Body mass index (BMI) [Ratio] 27.91 kg/m2 Mary Telles MD Work Phone: [facility] 08-05-2023 15:21-0500 Body weight 85.73 kg Mary Telles MD Work Phone: [facility] 08-05-2023 15:21-0500 Diastolic blood pressure 99 mm[Hg] Mary Telles MD Work Phone: [facility] 08-05-2023 15:21-0500 Heart rate 82 /min Mary Telles MD Work Phone: [facility] 08-05-2023 15:21-0500 Systolic blood pressure 170 mm[Hg] Mary Telles MD Work Phone: [facility] Encounters Encounter Date Encounter Type Care Provider Facility Start: 01-11-2024 End: 01-11-2024 Evaluation and management of inpatient DELANO Manuelito [facility] Start: 01-11-2024 End: 01-11-2024 Evaluation and management of inpatient [facility] Start: 01-06-2024 End: 01-06-2024 ambulatory ALPA [facility] Start: 01-05-2024 End: 01-05-2024 Evaluation and management of inpatient DYLAN M [facility] Start: 01-02-2024 Encounter for preprocedural cardiovascular examination [facility] Start: 01-02-2024 End: 01-02-2024 ambulatory [facility] Start: 12-30-2023 End: 12-30-2023 ambulatory [facility] Start: 12-28-2023 ambulatory Ga FRANK Facility : [facility] Start: 12-26-2023 End: 12-26-2023 ambulatory Ga FRANK Facility: [facility] Start: 12-26-2023 End: 12-26-2023 Patient encounter procedure Ga FRANK [facility] Start: 12-22-2023 ambulatory Dylan Hoy Facility:[facility] Start: 11-28-2023 ambulatory [facility] Facility:David Chavez Start: 11-16-2023 End: 11-16-2023 ambulatory [facility] Start: 11-16-2023 End: 11-16-2023 ambulatory [facility] Start: 11-16-2023 End: 11-16-2023 ambulatory [facility] Start: 11-14-2023 End: 11-14-2023 ambulatory ALINAEVA [facility] Start: 11-11-2023 End: 11-11-2023 ambulatory [facility] Start: 10-26-2023 ambulatory [facility] Start: 10-24-2023 End: 10-24-2023 ambulatory SHAZIA ELIZABETH Not Available Start: 10-04-2023 Telephone encounter Mary urena MD Work Phone: [facility] Start: 09-30-2023 End: 09-30-2023 Office outpatient visit 15 minutes Mary Telles MD Work Phone: [facility] Comment on above: Right renal mass (Pr imary Dx); Renal cell carcinoma Start: 09-30-2023 End: 09-30-2023 [facility] Start: 09-13-2023 Telephone encounter Mary urena MD Work Phone: [facility] Start: 08-15-2023 Telephone encounter [facility] Start: 08-05-2023 End: 08-05-2023 Postop follow up visit related to original px Mary Telles MD Work Phone: [facility] Comment on above: Renal mass (Primary Dx); Renal cell carcinoma Start: 08-05-2023 End: 08-05-2023 ambulatory [facility] Start: 07-28-2023 End: 07-28-2023 Evaluation and management of inpatient JINA CONNOLLY [facility] Start: 07-27-2023 End: 07-28-2023 [facility] Start: 07-26-2023 End: 07-28-2023 [facility] Start: 07-24-2023 End: 07-28-2023 Evaluation and management of inpatient [facility] Start: 07-24-2023 End: 07-28-2023 Evaluation and management of inpatient [facility] Start: 07-23-2023 End: 07-28-2023 Evaluation and management of inpatient [facility] Start: 07-23-2023 End: 07-28-2023 Evaluation and management of inpatient RHYS CORTESARIANA [facility] Start: 07-21-2023 End: 07-27-2023 Evaluation and management of inpatient MARY TELLES [facility] Start: 02-21-2023 ambulatory Dylan Tapia Facility:Deisi Chavez Start: 12-27-2022 ambulatory Dylan Tapia Facility:E Marisa Chavez Start: 12-23-2022 End: 12-24-2022 ambulatory DYLAN TAPIA [facility] Start: 12-13-2022 End: 12-14-2022 ambulatory VIRGINIA POLLOCK [facility] Start: 12-04-2022 End: 12-05-[address] DYLAN TAPIA . Facility:[facility] Start: 12-03-2022 End: 12-04-[address] DYLAN TAPIA . Facility:[facility] Start: 11-30-2022 End: 12-01-[address] DYLAN TAPIA . Facility: Procedures Date Procedure Procedure Detail Performing Clinician Start: 01-02-2024 Follow-up visit Follow-up MCKINLEY WINKLER Start: 09-30-2023 MEASURE POST VOID RESIDUAL Mary Telles MD Work Phone: Start: 09-30-2023 Follow-up visit Follow-up MARY TELLES Start: 07-21-2023 Adult depression scr eening assessment Mary Telles MD Work Phone: Start: 03-15-2012 Colonoscopy Ga NI LL Catheterization of subclavian vein Ga FRANK Cholecystectomy Ga JOAQUINL Excision of basal ce ll carcinoma Ga NILGracie Comment on above: face Kidney biopsy Ga FRANK Partial nephrectomy Ga FRANK Plan of Treatment Date Care Activity Detail Author Start: 09-29-2024 Adult BMI Screening Adult BMI Screen ing [facility] Start: 09-29-2024 Tobacco Screening Tobacco Screening [facility] Start: 08-05-2024 Adult BMI Screening Adult BMI Screen ing [facility] Start: 08-05-2024 [facility] Start: 07-21-2024 Depression Screening Depression Scre [facility] Start: 05-07-2024 End: 05-07-2024 Patient encounter procedure 05/07/2024 3:10 PM EDT Office Visit [facility] [address] [place] [address] Jimmy Alcaraz MD [address], [address] [address] [facility] Start: 04-01-2024 End: 09-29-2024 CT Abdomen W contrast IV CT abdomen with contrast Imaging Routine Renal cell carcinoma Expected: 04/01/2024 (Approximate), Expires: 09/29/2024 [facility] Work Phone: Comment on above: Expected: 04/01/2024 (Approximate), Expires: 09/29/2024 Start: 04-01-2024 End: 09-29-2024 XR Chest PA and Lateral X-ray chest 2 views Imaging Routine Renal cell carcinoma Expected: 04/01/2024 (Approximate), Expires: 09/29/[facility]24 [facility] Comment on above: Expected: 04/01/2024 (Approximate), Expires: 09/29/2024 Start: 02-03-2024 End: 02-03-2024 Patient encounter procedure [facility] - Radiology Start: 02-03-2024 End: 08-05-2024 MR Abdomen WO and W contrast IV MR abdomen with and without contrast Imaging Routine Renal cell carcinoma Expected: 02/03/2024 (Approximate), Expires: 08/05/2024 [employer] Work Phone: Comment on above: Expected: 02/03/2024 (Approximate), Expires: 08/05/2024 Start: 02-03-2024 End: 08-05-2024 XR Chest PA and Lateral X-ray chest 2 views Imaging Routine Renal cell carcinoma Expected: 02/03/2024 (Approximate), Expires: 08/05/2024 [facility] Comment on above: Expected: 02/03/2024 (Approximate), Expires: 08/05/2024 Start: 01-27-2024 End: 01-27-2024 Patient encounter procedure 01/27/2024 1:00 PM EDT Appointment [facility] - [place] [address] [facility] [address] [place] [phone] [facility] - [place] Start: 01-23-2024 End: 01-23-2024 Patient encounter procedure 01/23/2024 8:45 AM EDT Appointment [facility] - MRI Imaging [address] [place] [phone] Mary Telles MD [address] [place] [address] [facility] - MRI Imaging Start: 09-28-2023 End: 09-28-2023 Patient encounter procedure 09/28/2023 10:30 AM EST Office Visit [facility] [address] [place] [phone] Mary Telles MD [address] [place] [phone] Lexus Lainez PA [address] [place] [address] [facility] Start: 09-09-2023 End: 09-09-2023 Patient encounter procedure 09/09/2023 4:30 PM EST Office Visit [facility] [address] [place] [phone] Mary Telles MD [address] [place] [phone] [facility] Start: 03-25-2023 Influenza vaccination Influenza Vacc ine [facility] Start: 2022 Fall Risk Screening Fall Risk Screen ing [facility] Start: 1976 Administration of varicella zoster vaccine Zoster (Shingles) Vaccine (1 of 2) [facility] Start: 1976 DTaP,Tdap and Td Vaccines (1 - Tdap) DTaP,Tdap and Td Vaccines (1 - Tdap) [facility] Start: 10-02-1975 Adult BMI Follow Up Plan Adult BMI Follow Up Plan [facility] Start: 10-02-1975 Diabetic foot examination Diabetic Foot Exam [facility] Start: 1957 Glaucoma screening Diabetic Op hthalmology Exam [facility] Start: 1957 Medicare Annual Well ness Visit Medicare Annual Wellness Visit [facility] Start: 1957 Tobacco Counseling Tobacco Counselin g [facility] Start: 1957 Urine screening for protein Urine Microalbumin [facility] Payers Date Payer Category Payer Medicare MEDICARE MEDICAR E PART A & B [id number] 2022-Present [phone] [address] [place] [address] [id number] 2022 Unknown [employer] SU[employer]MENT [employer]AN [id number] 2022-Present [phone] [id number] [employer] [facility] [place] [address] [id number] .[id number] 2022 Unknown [id number] 2018 Private Health Insurance [id number] 2012 Private Health Insurance [id number] 1959 Medicare [id number] 1959 Unknown [id number] 1957 Unknown [id number] 2.16.840.1.392638.3.579 .2.593 1957 Unknown [id number] 2.16.840.1.808250.3.579 .2.593 1957 Unknown [id number] 2.16.840.1.390830.3.579 .2.593 1957 Unknown [id number] 2.16.840.1.350326.3.579 .2.1259 1957 Unknown [id number] 2.16.840.1.780366.3.579 .2.727 1957 Unknown [id number] 2.16.840.1.060536.3.579 .2.727 1957 Unknown [id number] 2.16.840.1.759812.3.579 .2.1286 1957 Unknown [id number] 2.16.840.1.761069.3.579 .2.1286 1957 Unknown [id number] 2.16.840.1.674903.3.579 .2.1285 1957 Unknown [id number] 2.16.840.1.019862.3.579 .2.1285 1957 Unknown [id number] 2.840.1.307899.3.579 .2.1285 1957 Unknown [id number] 2.16.840.1.629838.3.579 .2.1285 1957 Unknown [id number] 2.840.1.833898.3.579 .2.1285 1957 Unknown [id number] 2..840.1.873261.3.579 .2.1285 1957 Unknown [id number] 2.840.1.082277.3.579 .2.1285 1957 Unknown [id number] 2.840.1.948486.3.579 .2.1285 1957 Unknown [id number] 2.840.1.053464.3.579 .2.1285 1957 Unknown [id number] 2.840.1.039322.3.579 .2.1285 1957 Unknown [id number] 2.840.1.581188.3.579 .2.1285 1957 Unknown [id number] 2.840.1.210172.3.579 .2.1285 1957 Unknown [id number] 2.840.1.271567.3.579 .2.1285 1957 Unknown [id number] 2.840.1.776822.3.579 .2.1285 1957 Unknown [id number] 2..840.1.473424.3.579 .2.1285 1957 Unknown [id number] 2.840.1.161580.3.579 .2.1285 1957 Unknown [id number] 2.16.840.1.154556.3.579 .2.1286 1957 Unknown [id number] 2.16.840.1.001237.3.579 .2.1286 1957 Unknown [id number] 2.16.840.1.854207.3.579 .2.1286 1957 Unknown [id number] 2.16.840.1.390671.3.579 .2.1286 1957 Unknown [id number] 2.16.840.1.023573.3.579 .2.1286 1957 Unknown [id number] 2.16.840.1.454658.3.579 .2.1286 1957 Unknown [id number] 2.16.840.1.020393.3.579 .2.1286 1957 Unknown [id number] 2.16.840.1.638661.3.579 .2.1286 Social History Date Type Detail Facility Start: 08-05-2023 Tobacco smoking stat us [facility] Smokes tobacco daily [facility] History of tobacco use Cigarette Smoker P [facility] Start: 09-04-2020 End: 08-05-2023 Cigarettes smoked current (pack per day) - Reported 1 [facility] Start: 08-05-2023 Tobacco use and exposure Smokeless tobacco non-user [facility] Start: 08-05-2023 End: 10-04-2023 Alcohol intake Current non-drinker of alcohol (finding) [facility] Start: 09-04-2020 End: 07-27-[address] [employer] [facility] Has the mobileo, or [employer] threatened to shut off services in your home in past 12Mo No [facility] Adolescent depressio n screening assessment 0 [facility] Start: 07-07-2023 Tobacco Comment Currently smok ing 1/2ppd [facility] Start: 1955 Sex Assigned At Not on file P [facility] Start: 12-26-2023 Tobacco smoking status Heavy t obacco smoker (finding) [facility] Procedure Code Equipment Code Equipment Origin al Text Equipment Identifier Dates Set Cth 24cm 14f r 18ga Str Triniflex Splt3 Bsc Intro Ndl Gw Rpl [id number] - [id number], [id number] FDA Start: 07-27-2023 1 Unit by miscellaneous route 4 (four) times a day before meals and nightly. [id number] Start: 07-27-2023 Goals Date Patient Goal Desired Activity /State Personal health goal Comment on above: Formatting of this n ote might be different from the original. Evaluation of progress towards goal: Patient plans for a safe discharge. Functional Status Date Assessment Result Facility 12-26-2023 Functional Status N/A [facility] Clinical Notes 12-23-2022 to 12-26-2023 Telephone Encounter - Mary Telles MD - 10/04/2023 6:09 PM EDTTelephone Encounter - Mary Telles MD - 10/04/2023 6:09 PM Ward Telles MD - 09/30/2023 3:15 PM ESTAttachments Note Date & Type Note Facility 12-26-2023 Note Chief Complaint consultation for anemia HPI Staff 68 year old male presents on consultation from Dr. Tapia for anemia. Labs completed 11/24 with H/H 12.5 and 37.8. Patient with renal failure and hemodialysis. Last colonoscopy completed 02/2012-normal. Denies abdominal or rectal pain. No rectal bleeding or change in bowel habits. No nausea or vomiting. No unexplained weight loss. Denies dizziness, lightheadedness, fatigue or SOB. No known family history of colon cancer. History of Present Illness 68 yo male with h/o CAD, htn, DMII, ESRD, on hemodialysis, hypothyroidism, hypercholesterolemia, referred for colorectal screening; recent mild anemia, hb 12.5; denies change in bms or blood in stools; no abd complaints; abdominal operations significant for cholecystectomy and right partial nephrectomy; last colonoscopy 2011 wnl; no asa or NSAID use; no fmhx of GI malignancy or IBD; smokes daily. Review of Systems PHQ Score Initial Depression Screen Score: 0 SCORE ROS - Provider Constitutional: no fever, no sweats, no weight loss. Eyes: no glasses, no blurred vision, no visual loss. ENMT: no dentures, no hoarseness, no swallowing difficulties, no hearing loss, no ear infection(s), no nose bleeds. Cardiovascular: normal blood pressure, no chest pain, regular heartbeat, no heart murmur. Respiratory: no shortness of breath, no cough, no asthma, no wheezing. Gastrointestinal: no nausea, no vomiting, no diarrhea, no constipation, no blood in stool, no change in bowel habits, no abdominal pain, no hepatitis. Genitourinary: no kidney stones, no urine infection, no dysuria. Musculoskeletal: no pain, no weakness. Skin: no changing moles, no rash, no skin lumps. Neurologic: no seizures, no epilepsy, no headache. Psychiatric: no emotional or psychiatric problem. Heme/Lymph: no bleeding problems, no anemia, no blood clots, no transfusions. Allergy/Immunologic: no swollen lymph nodes/glands, no IV drug abuse. Other: Additional ROS info: Except as noted in the above Review of Systems and in the History of Present Illness, all other systems have been reviewed and are negative or noncontributory. Physical Exam Vitals & Measurements HR: 76(Peripheral) RR: 16 BP: 161/81 HT: 70 in HT: 177.8 cm WT: 63.6 kg WT: 139.92 lb BMI: 20.12 HEENT: normal conjunctiva, sclera clear, no scleral icterus, EOM intact, PERRLA, oral mucosa moist without lesions. Neck: trachea midline, no mass, symmetric, no thyromegaly or nodules, no adenopathy Respiratory: lungs CTA, respirations non labored. Cardiovascular: regular rate and rhythm, no murmur, no pedal edema or varicosities. Gastrointestinal: soft, non distended, no tenderness, no masses, no palpable hernias, diastasis recti no, no hepatosplenomegaly; normal bs Lymphatic: no cervical adenopathy, no supraclavicular adenopathy. Musculoskeletal: normal gait, digits and nails without infection, nodes, cyanosis, clubbing. Skin: no rashes, no lesions, no ulcers, no subcutaneous nodules, induration. Psychiatric/Neuro: oriented to time, place, person, judgement normal, affect appropriate for age, insight intact, no focal deficits. Tests: labs reviewed, review of old records completed , Discussed surgical options, risks, and possible complications with patient. Assessment/Plan 1. Screening for malignant neoplasm of colon (Z12.11: Encounter for screening for malignant neoplasm of colon) plan colonoscopy under anesthesia, informed consent obtained. 2. Tobacco use (Z72.0: Tobacco use) We strongly recommend to quit tobacco use. Cigarette smoking harms nearly every organ of the body, causes many diseases, and reduces the health of smokers in general. Quitting smoking lowers your risk for smoking-related diseases and can add years to your life. We encourage you to visit www.smokefree.gov access to helpful resources including free telephone support. If you decide on prescription treatment to help you quit, your family doctor would be happy to provide these. Follow-up No qualifying data available Problem List/Past Medical History Ongoing Abdominal aortic aneurysm Anemia CAD (coronary artery disease) Clear cell carcinoma of kidney Diabetes Essential hypertension Hearing loss Hemodialysis patient History of thromboembolism Hypercholesterolemia Idiopathic acute pancreatitis Impotence Mixed hyperlipidemia Nicotine dependence Renal failure Screening for malignant neoplasm of colon Tobacco use Historical No qualifying data Procedure/Surgical History Colonoscopy (03/15/2012), Cholecystectomy, Excision of basal cell carcinoma, Partial nephrectomy, Renal biopsy. Medications alprazolam 0.25 mg Tab, 0.25 mg= 1 tab(s), Oral, TID, PRN Amaryl 2 mg Tab, 2 mg= 1 tab(s), Oral, Daily atorvastatin 40 mg Tab, 40 mg= 1 tab(s), Oral, Daily bumetanide 1 mg Tab, 3 mg= 3 tab(s), Oral, Daily carvedilol 25 mg Tab, 25 mg= 1 tab(s), Oral, BID levothyroxine 50 mcg (0.05 mg) Tab, 50 mcg= 1 tab(s), Oral, (more content not included)... [facility] Comment on above: Result Comment: Elec tronically Signed By: ZAC TAYLOR, Ga Cesar\Date and Time Signed: 12/26/23 13:38 EDT 10-04-2023 Miscellaneous Notes Patient is scheduled with [...] issues. Thank you. documented in this encounter [facility] 10-04-2023 Telephone encounter Note Patient is [...] me know if any issues. Thank you. [facility] 09-30-2023 History of Presen t illness Narrative Images from the original note were not included. [address] [facility] [id number] Patient: Zev Crystal Date of : 1955 Encounter Date: [...] History: Diagnosis Date AAA (abdominal aortic aneurysm) ([facility]) monitoring Anxiety xanax prn Arthritis Dental disease [...] 04/01/2023 right kidney CARDIAC CATHETERIZATION 2004 2007 [facility] [place] CHOLECYSTECTOMY 2005 COLONOSCOPY 2012 EYE SURGERY NASAL SINUS SURGERY 2003 cleaned out NEPHRECTOMY PARTIAL OPEN(BIOBANK) Right 07/21/2023 Performed by Mary Telles MD at [facility] Several times STRABISMUS SURGERY [...] healed with no hernia Assessment and Plan: Zev was seen today for follow-up. Diagnoses and [...] ant RLP lesion > MR-abdomen WOC 11/30/22 ([facility]) - 3.4 cm R renal mass s/p [...] for your understanding. documented in this encounter [facility] 09-13-2023 Miscellaneous Notes Patient canceled previous appointment on 09/09. Can we please see if he can get an appointment in the next 1-2 weeks? Thanks. Patient is scheduled 3/ with Lexus. Did you want him to see you instead? Please advise. Yes please documented in this encounter [facility] 09-13-2023 Telephone encounter Note Patient canceled previous appointment on 09/09. Can we please see if he can get an appointment in the next 1-2 weeks? Thanks. [facility] 09-13-2023 Telephone encounter Note Patient is scheduled 3 with Lexus. Did you want him to see you instead? Please advise. [facility] 09-13-2023 Telephone encounter Note Yes please [facility] 08-15-2023 Miscellaneous Notes Pt's said you were going to touch base with the Content Creation Manager. She is calling to see if you have done that? I sent a message. I should hopefully hear back this week. documented in this encounter [facility] 08-15-2023 Telephone encounter Note Pt's said you were going to touch base with the Content Creation Manager. She is calling to see if you have done that? [facility] 08-15-2023 Telephone encounter Note I sent a message. I should hopefully hear back this week. [facility] 08-05-2023 History of Presen t illness Narrative Images from the original note were not included. [address] [facility] [id number] Patient: Zev Crystal Date of : 1955 Encounter Date: [...] History: Diagnosis Date AAA (abdominal aortic aneurysm) ([facility]) monitoring Anxiety xanax prn Arthritis Dental disease [...] 04/01/2023 right kidney CARDIAC CATHETERIZATION 2004 2007 [facility] [place] CHOLECYSTECTOMY 2005 COLONOSCOPY 2012 EYE SURGERY NASAL SINUS SURGERY 2003 cleaned out NEPHRECTOMY PARTIAL OPEN(BIOBANK) Right 07/21/2023 Performed by Mary Telles MD at [facility] Several times STRABISMUS SURGERY [...] flank bulge or hernia Assessment and Plan: Zev was seen today for follow-up. Diagnoses and [...] ant RLP lesion > MR-abdomen WOC 11/30/22 ([facility]) - 3.4 cm R renal mass s/p [...] for your understanding. documented in this encounter [facility] 08-05-2023 Instructions Mary Telles MD - 08/05/2023 3:30 PM EST My The following attachments cannot be sent through Care Everywhere.Kidney cancer (Mexican)documented in this encounter [facility] 12-23-2022 Note Satisfactory for danitza luation. Examination of the ThinPrep slide and cell block reveals histiocytes, scattered inflammatory cells, and cystic debris. [facility] Comment on above: Performed By: #### L [id number] #### [facility] [address] [place] [address] 12-23-2022 Note History: Right renal mass on [...] oximetry by appropriately trained personnel. 39 minutes tldo-nr-miij moderate sedation was provided by Dr. Mace. [...] as reasonably achievable. Electronically signed: SUBHASH MACE. [facility] Comment on above: Order Comment: Outsi de [...] Data Cath PCI Version 5 Indication(s) for Manager Gaming Visit: Other [facility] Evaluation + Plan note No data available for this section [facility] Evaluation note Diagnosis Renal mass- Primary Unspecified disorder of kidney and ureter Renal cell carcinoma (CMS-HCC) [facility] Right renal mass- Primary Unspecified disorder of kidney and ureter Renal cell carcinoma (CMS-HCC) [facility] No data available for this section [facility] InstructionsNot on filedocumented in this encounter [facility]Not on filedocumented in this encounter [facility]* Attachments The following attachments cannot be sent through Care Everywhere. * Kidney cancer (Mexican) documented in this encounterPro[facility]ica Health SystemInstructionsNot on file documented in this encounterProMedica Health SystemProgress note No data available for this section [facility] Summary Purpose Family History No Family History Records FoundNo Family History Records FoundNo Family History Records Found No data available for this section No Family History Records FoundNo Family History [...] Referral Specialty Diagnoses / Procedures Referred By Contac t Referred To Contact Radiology Diagnoses Renal cell carcinoma (CMS-HCC) Procedures MR abdomen with and without contrast Mary Telles MD [address] [place] [address] Referral ID Status Reason Start Date Expiration Date V isits Requested Visits Authorized [id number] Pending Review 08/05/2023 08/04/2024 1 1 Specialty Diagnoses / Procedures Referred By Contac t Referred To Contact Radiology Diagnoses Renal cell carcinoma ([facility]) Procedures CT abdomen with contrast Mary Telles MD [address] [place] [address] Referral ID Status Reason Start Date Expiration Date V isits Requested Visits Authorized [id number] Pending Review 09/30/2023 09/29/2024 1 1 Specialty Diagnoses / Procedures Referred By Contac t Referred To Contact Diagnoses Renal cell carcinoma (CMS-HCC) Procedures Measure post void residual Mary Telles MD [address] [place] [address] Referral ID Status Reason Start Date Expiration Date V isits Requested Visits Authorized [id number] Pending Review 09/30/2023 09/29/2024 1 1 Additional Source Comments (unrecognized sect ion and content) No Status Records FoundNo Status Records FoundNo Status Records FoundNo Status Records FoundNo Status Records FoundNo Status Records FoundNo Status Records Found INFORMATION SOURCE (unrecogn ized section and content) DATE CREATED AUTHOR 12/05/2022 [facility] DATE CREATED AUTHOR AUTHOR'S ORGANIZ ATION 01/02/2023 [facility] DATE CREATED AUTHOR AUTHOR'S ORGANIZ ATION 10/24/2023 [facility] EPIC DATE CREATED AUTHOR AUTHOR'S ORGANIZ ATION 12/27/2023 [facility] DATE CREATED AUTHOR AUTHOR'S ORGANIZ ATION 01/02/2024 [facility] DATE CREATED AUTHOR AUTHOR'S ORGANIZ ATION 01/07/2024 [facility] DATE CREATED AUTHOR AUTHOR'S ORGANIZ ATION 01/13/2024 [facility] Reason for Visit (unrecogniz ed section and content) Reason Comments Follow-up Reason Comments Follow-up 1 month fu Care Teams (unrecognized sec tion and content) Art Therapy Specialist Relationship Specialty Start Date End Date Dylan Tapia MD [address] [place], [place] [phone] PCP - General Family Medicine 06/23/22 Art Therapy Specialist Relationship Specialty Start Date End Date Dylan Tapia MD [address] [place] [address] PCP - General Family Medicine 06/23/22 Art Therapy Specialist Relationship Specialty Start Date End Date Dylan Tapia MD [address] [place] [phone] PCP - General Family Medicine 06/23/22 Art Therapy Specialist Relationship Specialty Start Date End Date Dylan Tapia MD [address] [place] [phone] PCP - General Family Medicine 06/23/22 Art Therapy Specialist Relationship Specialty Start Date End Date Dylan Tapia MD [address] [place] [phone] PCP - General Family Medicine 06/23/22 FOR [...] BE BASED ON THE PRIMARY CLINICAL RECORDS. [facility]. provides no warranty or guarantee of the accuracy or completeness of information in this document.
== END 2024-01-24 12:05 | disposition home or self-care (01) ==
LOC: PST 12:04
PROVIDERS: PCP Family Medicine; Visit Provider Surgery
DX: Z01.818 Encounter for other preprocedural examination (principal); Z12.11 Encounter for screening for malignant neoplasm of colon

== ENCOUNTER 2024-09-25 08:39 | Outpatient (OUT) | payer MEDICARE, OTHER, SELFPAY ==
--- NOTE | 2024-09-25 08:53 | CT_ITS ---
The [address] [address] Patient Name: ZEV REIS MRN: [id number] date: 1955 Sex: M Assigned Patient Location: CT Current Patient Location: CT Accession/Order Number: [id number] Exam Date: 09/25/2024 15:59 Report Date: 09/25/2024 16:03 At the request of: DYLAN MONTILLA MD Procedure: CT forearm LT wo con CT left forearm WITHOUT CONTRAST: CLINICAL HISTORY: Left Arm Mass R22.32 COMPARISON: None TECHNIQUE: Spiral axial unenhanced images were obtained through the left forearm. Sagittal, coronal reconstructions were also reviewed. This CT exam was performed using one or more following dose reduction techniques: Automated exposure control, adjustment of the mA and/or kV according to patient size, or use of iterative reconstruction technique. FINDINGS: In the area of concern marked with a BB. Soft tissue swelling is noted. No measurable mass or fluid collection is seen. There appears to be vascular clips seen involving the volar soft tissues of the forearm possibly from prior vein harvesting. There appears be degenerative changes involving the visualized elbow joint. No bony destructive lesion is seen involving the radius or ulna. Visualized carpus demonstrates degenerative change with associated cystic changes. Musculature demonstrates no focal abnormality. CT/CT forearm LT wo con IMPRESSION: IN THE AREA OF CONCERN MARKED BY BB, SOFT TISSUE SWELLING IS NOTED. NO DEFINITE MASS OR FLUID COLLECTION IS SEEN. IF FURTHER EVALUATION IS NEEDED, ULTRASOUND IS RECOMMENDED. Impression dictated by: Gorge Sood Jr., D.O.09/25/2024 4:03 PM Dictation Location: [place] [address] Electronically authenticated by: [id number] Y Date: 09/25/2024 16:03
== END 2024-09-25 08:40 | disposition home or self-care (01) ==
LOC: CT 08:39
PROVIDERS: PCP Family Medicine; Visit Provider Family Medicine
DX: R22.32 Localized swelling, mass and lump, left upper limb (principal)
CPT/HCPCS: 73200

== ENCOUNTER 2024-10-02 08:38 | Outpatient (OUT) | payer MEDICARE, OTHER, SELFPAY ==
--- NOTE | 2024-10-02 08:40 | US_ITS ---
The [address] [address] Patient Name: ZEV REIS MRN: [id number] date: 1955 Sex: M Assigned Patient Location: US Current Patient Location: US Accession/Order Number: [id number] Exam Date: 10/02/2024 09:34 Report Date: 10/02/2024 09:43 At the request of: DYLAN MONTILLA MD Procedure: US extremity nonvascular LT LIMITED ULTRASOUND - left forearm CLINICAL DATA: Lump at the left mid forearm COMPARISON: CT 09/25/2024 Real-time ultrasound evaluation of the area of palpable concern was performed. At the mid forearm medially there is an irregular, heterogeneous hypoechoic area deep to the subcutaneous fat and superficial to bone measuring 26 x 6 x 15 mm. There is increased peripheral vascularity. This is nonspecific and may be infectious or inflammatory. A soft tissue mass is not completely excluded. US/US extremity nonvascular LT IMPRESSION: NONSPECIFIC HETEROGENEOUS HYPOECHOIC AREA AT THE SITE OF CLINICAL CONCERN, DESCRIBED. CORRELATION WITH CLINICAL WILL BE NEEDED. IF ADDITIONAL IMAGING EVALUATION IS STILL WARRANTED, MRI IS SUGGESTED. Impression dictated by: Brianna Echeverria M.D.10/02/2024 9:43 AM Dictation Location: [place] [address] Electronically authenticated by: [id number] Y Date: 10/02/2024 09:43
== END 2024-10-02 08:39 | disposition home or self-care (01) ==
LOC: US 08:38
PROVIDERS: PCP Family Medicine; Visit Provider Family Medicine
DX: R22.32 Localized swelling, mass and lump, left upper limb (principal)
CPT/HCPCS: 76882

== ENCOUNTER 2024-10-11 08:18 | Outpatient (OUT) | payer MEDICARE, OTHER, SELFPAY ==
[2024-10-11 08:36] LABS: Estimated GFR (African America 23 (>=60 mL/min/1.73m^2); Estimated GFR (Non-African Ame 19 (>=60 mL/min/1.73m^2)
== END 2024-10-11 08:19 | disposition home or self-care (01) ==
LOC: LAB 08:18
PROVIDERS: PCP Family Medicine; Visit Provider Family Medicine
DX: R22.32 Localized swelling, mass and lump, left upper limb (principal)
CPT/HCPCS: 36415; 82565

== ENCOUNTER 2024-10-16 08:07 | Outpatient (OUT) | payer MEDICARE, OTHER, SELFPAY ==
--- NOTE | 2024-10-16 08:14 | XR_ITS ---
The [place] [id number] Patient Name: ZEV REIS MRN: [id number] date: 1955 Sex: M Assigned Patient Location: MRI Current Patient Location: MRI Accession/Order Number: [id number] Exam Date: 10/16/2024 08:56 Report Date: 10/16/2024 08:59 At the request of: DYLAN MONTILLA MD Procedure: XR forearm LT 2V Left FOREARM - 2 views CLINICAL HISTORY: Arm Mass Left, Clearance For MRI Foreign Body COMPARISON: None FINDINGS: There are 5 or 6 clips at the level antecubital fossa within the forearm. No fracture dislocation. Soft tissues otherwise unremarkable. XR/XR forearm LT 2V IMPRESSION: 5 or 6 clips at level antecubital fossa. Correlation with history recommended. Impression dictated by: Isiah Mota M.D.10/16/2024 8:59 AM Dictation Location: [place] [address] Electronically authenticated by: [id number] Y Date: 10/16/2024 08:59
--- OUTSIDE RECORDS SUMMARY | 2024-10-16 08:15 | XMS_ITS | CCD ---
Author Organization [facility] Care Team Providers Care Staff Registered Nurse Name Role Phone ROLDAN ., DR RICHARDSON [...] Unavailable HOY ., DR RICHARDSON Consulting Unavailable Floriany, Dylan Primary Care Physician [phone] Dylan Montilla Referring Unavailable Serjio GAVIRIA Attending Unavailable Ga FRANK Attending Unavailable Hoy, Dylan Referring Unavailable NILLGa R Attending Unavailable Hoy, Dylan Referring Unavailable HOY, DYLAN M Referring Unavailable HOY, DYLAN M Primary Care Unavailable CREEDON, ARAVIND Attending Unavailable HOY, DYLAN M Referring Unavailable HOY, DYLAN M Primary Care Unavailable MCKINLEY WINKLER Attending Unavailable HOY, DYLAN M Referring Unavailable HOY, DYLAN M Primary Care Unavailable SHAZIA ARNOLD Attending Unavailable SHAZIA ARNOLD Attending Unavailable Unavailable Primary Care Provider UnavailKEVIN Garcia Referring Unavailable HOY, DYLAN M Primary Care Unavailable CREEDON, ARAVIND Referring Unavailable HOY, DYLAN M Primary Care Unavailable CREEDON, ARAVIND Referring Unavailable HOY, DYLAN M Primary Care Unavailable CREEDON, ARAVIND Referring Unavailable HOY, DYLAN M Primary Care Unavailable CREEDON, ARAVIND Referring Unavailable HOY, DYLAN M Primary Care Unavailable ALPA TAFOYA Attending Unavailable ALPA TAFOYA Referring Unavailable HOY, DYLAN M Primary Care Unavailable YUNG WOLFE Referring Unavailable HOY, DYLAN M Primary Care Unavailable POLLY REEDER Referring Unavailable HOY, DYLAN M Primary Care Unavailable HOY, DYLAN M Primary Care Unavailable ANJU PIPER Attending Unavailable ANJU PIPER Attending Unavailable ANJU PIPER Referring Unavailable HOY, DYLAN M Primary Care Unavailable HOY, DYLAN M Referring Unavailable HOY, DYLAN M Primary Care Unavailable STANLEY GILLETTE Attending Unavailable AMANDA RANDALL Referring Unavailable HOY, DYLAN M Primary Care Unavailable KEVIN ROSARIO Referring Unavailable HOY, DYLAN M Primary Care Unavailable STANLEY GILLETTE Attending Unavailable STANLEY GILLETTE Referring Unavailable HOY, DYLAN M Primary Care Unavailable MARY TELLES Attending Unavailable ANILMARY Referring Unavailable HOY, DYLAN M Primary Care Unavailable MARY TELLES Referring Unavailable HOY, DYLAN M Primary Care Unavailable STANLEY GILLETTE Attending Unavailable STANLEY GILLETTE Referring Unavailable HOY, DYLAN M Primary Care Unavailable Dylan Montilla MD Primary Care Provider [phone] ZAC LOMBARDI Attending Unavailable CONNERAS, JIHAD T Referring Unavailable HOY, DYLAN M Primary Care Unavailable CATHRYN LOMBARDID T Attending Unavailable HOY, DYLAN M Referring Unavailable HOY, DYLAN M Primary Care Unavailable ABBSARAH, JIHAD T Admitting Unavailable ABBAS, JIHAD T Attending Unavailable HOY, DYLAN M Primary Care Unavailable YUNG WOLFE M Attending Unavailable HOY, DYLAN M Referring Unavailable HOY, DYLAN M Primary Care Unavailable ABBAS, JIHAD T Admitting Unavailable ABBAS, JIHAD T Attending Unavailable HOY, DYLAN M Primary Care Unavailable YUNG WOLFE M Attending Unavailable HOY, DYLAN M Referring Unavailable HOY, DYLAN M Primary Care Unavailable AMANDA RANDALL Attending Unavailable HOY, DYLAN M Referring Unavailable HOY, DYLAN M Primary Care Unavailable LESA, JEFFREY A Admitting Unavailable LESA, JEFFREY A Attending Unavailable HOY, DYLAN M Primary Care Unavailable BERNARDO MAN Consulting Unavailable WILLARD DE LA PAZ Consulting Unavailable CARDIOLOGY, [facility] Consulting Unavailable LESA, JEFFREY A Referring Unavailable HOY, DYLAN M Primary Care Unavailable ZAC LOMBARDI T Attending Unavailable HOY, DYLAN M Referring Unavailable HOY, DYLAN M Primary Care Unavailable LESA, JEFFREY A Attending Unavailable ANIL, MARY M Referring Unavailable HOY, DYLAN M Primary Care Unavailable HAJAR, CHINMAYSER Attending Unavailable HAJAR, NASSER Referring Unavailable HOY, DYLAN M Primary Care Unavailable ALLY AYERS Attending Unavailable HOY, DYLAN M Primary Care Unavailable HAJAR, NASSER Admitting Unavailable HAJAR, NASSER Attending Unavailable HOY, DYLAN M Primary Care Unavailable ABBASCATHRYND T Attending Unavailable HOY, DYLAN M Referring Unavailable HOY, DYLAN M Primary Care Unavailable HOY, DYLAN M Referring Unavailable HOY, DYLAN M Primary Care Unavailable HAJAR, NASSER Attending Unavailable HOY, DYLAN M Referring Unavailable HOY, DYLAN M Primary Care Unavailable LESA JEFFREY A Attending Unavailable ANIL, MARY M Referring Unavailable HOY, DYLAN M Primary Care Unavailable ABBZAC SMITH T Attending Unavailable HOY, DYLAN M Referring Unavailable HOY, DYLAN M Primary Care Unavailable ANIL, MARY M Attending Unavailable HOY, DYLAN M Referring Unavailable HOY, DYLAN M Primary Care Unavailable ANIL, MARY M Attending Unavailable HOY, DYLAN M Referring Unavailable HOY, DYLAN M Primary Care Unavailable ANIL, MARY M Referring Unavailable HOY, DYLAN M Primary Care Unavailable LATISHA YOUSSEF Attending Unavailable HOY, DYLAN M Primary Care Unavailable ABBZAC SMITH T Admitting Unavailable ABBASCATHRYND T Attending Unavailable HOY, DYLAN M Primary Care Unavailable HOY, DYLAN M Referring Unavailable HOY, DYLAN M Primary Care Unavailable ABBASZAC T Attending Unavailable HOY, DYLAN M Referring Unavailable HOY, DYLAN M Primary Care Unavailable ANIL, MARY M Attending Unavailable HOY, DYLAN M Referring Unavailable HOY, DYLAN M Primary Care Unavailable Dylan Montilla MD Primary Care Provider [phone] Dylan Montilla MD Primary Care Provider Unavaila Dylan Wagner MD Primary Care Provider [phone] Allergies Allergy Classification Reported Allergen(s) Allergy Type Date of Onset Reaction(s) Facility (1 source) No Known Medication Allergies; Translations: [No Known Medication Allergies] Propensity to adverse reactions (disorder) [facility] Rep[facility] Medications Current Medications Medication Drug Class(es) Dates Sig (Normalized) Sig (Original) acetaminophen 500 mg oral tablet (5 sources) Start: 05-11-2024 End: 05-11-2024 Start: 05-10-2024 End: 05-12-2024 take 1000 mg by mouth every six hours as needed for pain and fever and headache Start: 05-09-2024 End: 05-10-2024 take 1000 mg intravenously every six hours Start: 05-09-2024 End: 05-09-2024 ALPRAZolam 0.25 mg oral tablet (20 sources) Benzodiazepine Start: 12-15-2023 take 1 tablet by mouth three times daily as needed for anxiety alprazolam 0.25 mg Tab 0.25 mg = 1 tab(s), Oral, TID, PRN as needed for anxiety, Refills(s) 0 Start Date: 12/15/23 Status: Ordered amylase 069422 unt / lipase 31576 unt / protease [id number] unt delayed release oral capsule (15 sources) Start: 07-05-2024 lipase-proteas e-amyl ase (CREON) 36,000-114,000- 180,000 unit capsule,delayed release(DR/EC) Indications: Exocrine pancreatic insufficiency 2 capsules with Breakfast and Dinner and 1 with snacks 200 capsule 11 07/05/2024 Active Start: 06-26-2024 End: 07-05-2024 [id number] (CRE ON) 36,000-114,000- 180,000 unit capsule,delayed release(DR/EC) Indications: Exocrine pancreatic insufficiency 2 capsules with Breakfast and Dinner and 1 with snacks 200 capsule 07/05/2024 Active Start: 03-06-2024 End: 04-25-2024 [id number] (CRE ON) 36,000-114,000- 180,000 unit capsule,delayed release(DR/EC) Indications: Exocrine pancreatic insufficiency Take 1 capsule (36,000 units of lipase total) by mouth in the morning and 1 capsule (36,000 units of lipase total) at noon and 1 capsule (36,000 units of lipase total) in the evening. Take with meals. 90 capsule 6 03/06/2024 04/25/2024 Discontinued (Therapy completed) atorvastatin 40 mg oral tablet (20 sources) HMG-CoA Reductase Inhibitor Start: 12-15-2023 take 1 tablet by mouth once daily atorvastatin 40 mg Tab 40 mg = 1 tab(s), Oral, Daily, Refills(s) 0 Start Date: 12/15/23 Status: Ordered bisacodyl 5 mg delayed release oral tablet (2 sources) Stimulant Laxative Start: 02-29-2024 End: 02-29-2024 take 2 tablets by mouth once bisacodyL (DULCOLAX) 5 mg EC tablet Take 2 tablets (10 mg total) by mouth once for 1 dose. Take as instructed 2 tablet 02/29/2024 02/29/2024 Active bumetanide 1 mg oral tablet (19 sources) Loop Diuretic Start: 12-26-2023 End: 05-17-2024 famotidine 20 mg oral tablet (12 sources) Histamine-2 Receptor Antagonist Start: 05-22-2024 End: 11-26-2024 take 1 tablet by mouth in the morning, then take 1 tablet by mouth at bedtime famotidine (PEPCID) 20 mg tablet Indications: IPMN (intraductal papillary mucinous neoplasm) Take 1 tablet (20 mg total) by mouth in the morning and 1 tablet (20 mg total) before bedtime. Do all this for 180 days. 180 tablet 1 05/30/2024 11/26/2024 Active Start: 05-09-2024 End: 05-14-2024 glimepiride 2 mg oral tablet (20 sources) Sulfonylurea Start: 05-16-2024 Start: 12-15-2023 End: 01-02-2024 take 1 tablet by mouth once daily Amaryl 2 mg Tab 2 mg = 1 tab(s), Oral, Daily, Refills(s) 0 Start Date: 12/15/23 Status: Ordered glucagon (rdna) 1 mg injecti on (1 source) Antihypoglycemic Agent Start: 05-09-2024 50 ml glucose 500 mg/ml pref illed syringe (3 sources) Start: 05-09-2024 Start: 05-09-2024 1 ml heparin sodium, porcine 5000 unt/ml injection (1 source) Unfractionated Heparin, Anti-coagulant Start: 05-10-2024 1 ml hydrALAZINE hydrochloride 20 mg/ml injection (4 sources) Arteriolar Vasodilator Start: 05-10-2024 End: 05-12-2024 take 20 mg intravenously every four hours as needed Start: 05-09-2024 End: 05-10-2024 take 10 mg intravenously every six hours as needed 0.5 ml HYDROmorphone hydrochloride 1 mg/ml prefilled syringe (3 sources) Opioid Agonist Start: 05-15-2024 take 1 mg intravenou sly every four hours as needed Start: 05-11-2024 End: 05-15-2024 take 1 mg intravenously every four hours as needed Start: 05-09-2024 End: 05-11-2024 take 1 mg intravenously every two hours as needed for pain 3 ml insulin lispro 100 unt/ml pen injector (9 sources) Insulin Analog Start: 05-09-2024 End: 05-13-2024 inject 2-16 [IU] by subcutaneous injection every four hours Start: 07-27-2023 End: 01-02-2024 inject 2-10 [IU] by subcutaneous injection four times daily at mealtime insulin lispro (HumaLOG) 100 unit/mL insulin pen Inject 2-10 Units under the skin 4 (four) times a day with meals and nightly. 15 mL 12 07/27/2023 01/02/2024 Discontinued (Discontinued by another clinician) insulin lispro (HumaLOG) 100 unit/mL insulin pen (2 sources) Start: 07-27-2023 inject 2-10 [IU] by subcutaneous injection four times daily at mealtime insulin lispro (HumaLOG) 100 unit/mL insulin pen Inject 2-10 Units under the skin 4 (four) times a day with meals and nightly. 15 mL 12 07/27/2023 Active labetalol hydrochloride 5 mg/ml injectable solution (2 sources) beta-Adrenergi c Erika Start: 05-12-2024 take 20 mg intravenously every four hours as needed Start: 05-09-2024 End: 05-12-2024 take 20 mg intravenously every four hours as needed levothyroxine sodium 0.05 mg oral tablet (20 sources) l-Thyroxine Start: 12-26-2023 take 1 tablet by mouth in the mo rning levothyroxine (SYNTHROID, LEVOTHROID) 50 MCG tablet Indications: hypothyroidism Take 1 tablet (50 mcg total) by mouth in the morning. Indications: a condition with low thyroid hormone levels. Active loperamide hydrochloride 2 mg oral tablet (6 sources) Opioid Agonist take 1 tablet by mouth four times daily as needed for diarrhea loperamide (IMODIUM A-D) 2 mg tablet Take 1 tablet (2 mg total) by mouth 4 (four) times a day as needed for diarrhea. Active losartan potassium 25 mg oral tablet (18 sources) Angiotensin 2 Receptor Erika take 1 tablet by mouth once daily in the morning losartan (COZAAR) 25 mg tablet Take 1 tablet (25 mg total) by mouth in the morning. 1x per day. Active End: 01-02-2024 take 2 tablets by mouth in the morning losartan (Cozaar) 25 MG tablet Take 50 mg by mouth in the morning. Active metFORMIN hydrochloride 500 mg oral tablet (20 sources) Biguanide Start: 07-11-2023 metFORMIN (GLUCOPHAGE) 500 mg tablet Indications: prevention of type 2 diabetes mellitus Take 1 tablet (500 mg total) by mouth as needed (patient states he only occasionally takes this) Indications: prevention of type 2 diabetes mellitus. 07/11/2023 Active midodrine hydrochloride 10 mg oral tablet (1 source) alpha-Adrenergic Agonist Start: 05-17-2024 NIFEdipine 60 mg osmotic 24 hr extended release oral tablet (11 sources) Dihydropyridine Calcium Channel Erika Start: 05-15-2024 End: 06-16-2024 take 1 tablet by mouth every twenty-four hours in the morning NIFEdipine XL (PROCARDIA XL) 60 mg 24 hr tablet Take 1 tablet (60 mg total) by mouth in the morning for 30 days. 30 tablet 05/17/2024 06/16/2024 Active Start: 05-12-2024 End: 05-14-2024 ondansetron 4 mg disintegrating oral tablet (20 sources) Serotonin-3 Receptor Antagonist Start: 05-22-2024 ondansetron ODT (ZOFRAN ODT) 4 mg disintegrating tablet Indications: IPMN (intraductal papillary mucinous neoplasm) Dissolve 1 tablet (4 mg total) on tongue every 8 (eight) hours as needed for nausea or vomiting. 20 tablet 05/22/2024 Active Start: 05-09-2024 take 4 mg intravenou sly every four hours as needed for nausea and vomiting Start: 08-05-2023 End: 01-02-2024 take 1 tablet by mouth every eight hours as needed for nausea and vomiting ondansetron ODT (ZOFRAN ODT) 4 mg disintegrating tablet Dissolve 1 tablet (4 mg total) on tongue every 8 (eight) hours as needed for nausea or vomiting. 30 tablet 3 08/05/2023 01/02/2024 Discontinued (Discontinued by another clinician) polyethylene glycol 3350 170 00 mg powder for oral solution (10 sources) Osmotic Laxative Start: 05-13-2024 Start: 07-28-2023 End: 01-02-2024 polyethylene glycol (GLYCOLA X) 17 gram packet Take 17 g by mouth in the morning. 30 packet 07/28/2023 01/02/2024 Discontinued (Discontinued by another clinician) polyethylene glycol 3350 037944 mg / potassium chloride 1480 mg / sodium bicarbonate 5720 mg / sodium chloride 64371 mg powder for oral solution (2 sources) Osmotic Laxative Start: 02-29-2024 End: 02-29-2024 take 420 g by mouth once polyethylene glycol-electrolytes (NULYTELY) 420 gram solution Take 4,000 mL by mouth once for 1 dose. Take as instructed 4000 mL 02/29/2024 02/29/2024 Active simvastatin 40 mg oral tablet (3 sources) HMG-CoA Reductase Inhibitor simvastatin (Zocor) 40 MG tablet Orally qhs Active 1000 ml sodium chloride 9 mg/ml injection (11 sources) Start: 05-17-2024 Start: 05-11-2024 End: 05-10-2024 Start: 05-11-2024 Start: 05-10-2024 Start: 05-09-2024 Start: 05-09-2024 End: 05-10-2024 traMADol hydrochloride 50 mg oral tablet (5 sources) Opioid Agonist Start: 05-22-2024 End: 06-06-2024 take 1 tablet by mouth every eight hours as needed for pain traMADoL (ULTRAM) 50 mg tablet Indications: IPMN (intraductal papillary mucinous neoplasm) , B-cell lymphoma of intra-abdominal lymph nodes, unspecified B-cell lymphoma type (CMS-HCC) Take 1 tablet (50 mg total) by mouth every 8 (eight) hours as needed for pain for up to 7 days. 21 tablet 05/30/2024 06/06/2024 Active (6 sources) Start: 05-14-2024 Start: 05-14-2024 Start: 05-10-2024 Start: 05-10-2024 (7 sources) Start: 05-11-2024 take 5 mg by mouth every four hours as needed for pain [Order 1 Start] Name: oxyCODONE (ROXICODONE) immediate release tablet 5 mg Signed Summary: 5 mg, oral, Every 4 hours PRN, moderate pain - pain scale 4-6, Starting on Tue05/11/24 at 1142, Look-alike/sound-alike medication - verify indication for use. Immediate release. [Order 1 End] [Order 2 Start] Name: oxyCODONE (ROXICODONE) immediate release tablet 10 mg Signed Summary: 10 mg, oral, Every 4 hours PRN, severe pain - pain scale 7-10, Starting on Tue05/11/24 at 1142, Look-alike/sound-alike medication - verify indication for use. Immediate release. [Order 2 End] Start: 05-10-2024 End: 05-10-2024 take 3.375 g intravenously every twelve hours Start: 05-09-2024 [Order 1 Start ] Name: calcium gluconate IVPB 1000 mg/50 mL (20 mg/mL premix) Signed Summary: 1,000 mg, intravenous, at 50 mL/hr, Administer over 60 Minutes, As needed, for ionized calcium level 3.5 to 4.4 mg/dL, Starting on Tue05/09/24 at 1841, Recheck ionized calcium 6 hours after infusion. Hold calcium replacement for phosphorus greater than 5.5 mg/dL. VESICANT (RED) [Order 1 End] [Order 2 Start] Name: calcium gluconate IVPB 2000 mg/100 mL (20 mg/mL premix) Signed Summary: 2,000 mg, intravenous, at 100 mL/hr, Administer over 60 Minutes, As needed, for ionized calcium level 3 to 3.4 mg/dL, Starting on Tue05/09/24 at 1841, Recheck ionized calcium 6 hours after infusion. Hold calcium replacement for phosphorus greater than 5.5 mg/dL. VESICANT (RED) [Order 2 End] [Order 3 Start] Name: calcium gluconate 3,000 mg in sodium chloride 0.9 % 100 mL IVPB Signed Summary: 3,000 mg, intravenous, at 130 mL/hr, Administer over 60 Minutes, As needed, for ionized calcium level less than 3 mg/dL, Starting on Tue05/09/24 at 1841, CALL PHYSICIAN if this dose is administered. Recheck ionized calcium 6 hours after infusion. Hold calcium replacement for phosphorus greater than 5.5 mg/dL. VESICANT (RED) [Order 3 End] Start: 05-09-2024 [Order 1 Start ] Name: sodium phosphate 20 mmol in sodium chloride 0.9 % 250 mL IVPB Signed Summary: 20 mmol, intravenous, at 42.8 mL/hr, Administer over 6 Hours, As needed, for phosphorous level 2.3 mg/dL or less, Starting on Tue05/09/24 at 1841, Administer over 6 hours via dedicated line (peripheral line). If administered, recheck phosphorus level 4 hours after infusion complete. [Order 1 End] [Order 2 Start] Name: sodium phosphate 20 mmol in sodium chloride 0.9 % 100 mL IVPB Signed Summary: 20 mmol, intravenous, at 26.7 mL/hr, Administer over 4 Hours, As needed, for phosphorous level 2.3 mg/dL or less, Starting on Tue05/09/24 at 1841, Administer over 4 hours via dedicated line(central line). If administered, recheck phosphorus level 4 hours after infusion complete. Infuse using central line access. [Order 2 End] [Order 3 Start] Name: sod phos di, mono-K phos mono (K-PHOS NEUTRAL) 250 mg tablet 2 tablet Signed Summary: 2 tablet, oral, As needed, for phosphorous level 2.3 mg/dL or less, Starting on Tue05/09/24 at 1841, If dose administered, recheck phosphorus level 4 hours after last dose. Look-alike/sound-alike medication - verify indication for use. Give with a full glass of water. [Order 3 End] Start: 05-09-2024 [Order 1 Start ] Name: magnesium sulfate IVPB 2000 mg/50 mL in iso-osmotic water (40 mg/mL premix) Signed Summary: 2,000 mg, intravenous, at 25 mL/hr, Administer over 120 Minutes, As needed, for magnesium level 1.7 to 1.9 mg/dL or ionized magnesium level 0.45 to 0.5 mmol/L, Starting on Tue05/09/24 at 1841, Use premix solution. Default to ionized magnesium level in cases where patient has both magnesium and ionized magnesium results. If administered, check ionized magnesium (or total magnesium if ionized magnesium unavailable) level 4 hours after infusion. [Order 1 End] [Order 2 Start] Name: magnesium sulfate IVPB 4000 mg/100 mL in iso-osmotic water (40 mg/mL premix) Signed Summary: 4,000 mg, intravenous, at 25 mL/hr, Administer over 240 Minutes, As needed, for magnesium level 1.6 mg/mL or less, or ionized magnesium level 0.44 mmol/L or less, Starting on Tue05/09/24 at 1841, Use premix solution. Default to ionized magnesium level in cases where patient has both magnesium and ionized magnesium results. If administered, check ionized magnesium (or total magnesium if ionized magnesium unavailable) level 4 hours after infusion. [Order 2 End] Start: 05-09-2024 take 1 tablet by mouth once [O rder 1 Start] Name: potassium chloride (K-TAB,KLOR-CON) CR tablet 20-50 mEq Signed Summary: 20-50 mEq, oral, As needed, for potassium replacement, Starting on Tue05/09/24 at 1841, Progress to oral potassium replacement when patient tolerating oral intake. If dose administered, recheck potassium level 4 hours after last dose. For potassium level 3.4 to 3.8 mmol/L and Serum Creatinine 1.2 or less=30 mEq. For potassium level 3.1 to 3.3 mmol/L and Serum Creatinine 1.2 or less=40 mEq. For potassium level 3 mmol/L or less and Serum Creatinine 1.2 or less=50 mEq. For potassium level 3.4 to 3.8 mmol/L and Serum Creatinine greater than 1.2=20 mEq. For potassium level 3.1 to 3.3 mmol/L and Serum Creatinine greater than 1.2=30 mEq. For potassium level 3 mmol/L or less and Serum Creatinine greater than 1.2=40 mEq. Do not crush or chew. [Order 1 End] [Order 2 Start] Name: potassium chloride (KAYCIEL) 20 mEq/15 mL solution 20-50 mEq Signed Summary: 20-50 mEq, oral, As needed, potassium replacement, Starting on Tue05/09/24 at 1841, Progress to oral potassium replacement when patient tolerating oral intake. If dose administered, recheck potassium level 4 hours after last dose. For potassium level 3.4 to 3.8 mmol/L and Serum Creatinine 1.2 or less=30 mEq (22.5mL). For potassium level 3.1 to 3.3 mmol/L and Serum Creatinine 1.2 or less=40 mEq (30mL). For potassium level 3 mmol/L or less and Serum Creatinine 1.2 or less=50 mEq (37.5mL). For potassium level 3.4 to 3.8 mmol/L and Serum Creatinine greater than 1.2=20 mEq (15mL). For potassium level 3.1 to 3.3 mmol/L and Serum Creatinine greater than 1.2=30 mEq (22.5mL). For potassium level 3 mmol/L or less and Serum Creatinine greater than 1.2=40 mEq (30mL). Must dilute before use - Mix in 3-8 ounces of water or juice before administration When administering in feeding tube, flush before and after per policy and monitor potassium levels [Order 2 End] Start: 05-09-2024 [Order 1 Start ] Name: potassium chloride IVPB 10 mEq/50 mL in water (0.2 mEq/mL premix) Signed Summary: 10 mEq, intravenous, at 50 mL/hr, Administer over 1 Hours, As needed, for potassium replacement, Starting on Tue05/09/24 at 1841, Administer Potassium Chloride IVPB in 10 mEq increments. Maximum infusion rates: Central Line = 20 mEq/hour. Administer via Central Line Only. If dose administered, recheck potassium level 1 hour after infusion complete. For potassium level 3.4 to 3.8 mmol/L and Serum Creatinine 1.2 or less = 30 mEq For potassium level 3.1 to 3.3 mmol/L and Serum Creatinine 1.2 or less = 40 mEq For potassium level 3 mmol/L or less and Serum Creatinine 1.2 or less = 50 mEq For potassium level 3.4 to 3.8 mmol/L and Serum Creatinine greater than 1.2 = 20 mEq For potassium level 3.1 to 3.3 mmol/L and Serum Creatinine greater than 1.2 = 30 mEq For potassium level 3 mmol/L or less and Serum Creatinine greater than 1.2 = 40 mEq VESICANT (YELLOW) [Order 1 End] [Order 2 Start] Name: potassium chloride IVPB 10 mEq/100 mL in water (0.1 mEq/mL premix) Signed Summary: 10 mEq, intravenous, at 100 mL/hr, Administer over 60 Minutes, As needed, for potassium replacement, Starting on Tue05/09/24 at 1841, Administer Potassium Chloride IVPB in 10 mEq increments. Maximum infusion rates: Central Line = 20 mEq/hour; Peripheral Line = 10 mEq/hour (10 mEq/100 mL). If dose administered, recheck potassium level 1 hour after infusion complete. For potassium level 3.4 to 3.8 mmol/L and Serum Creatinine 1.2 or less = 30 mEq For potassium level 3.1 to 3.3 mmol/L and Serum Creatinine 1.2 or less = 40 mEq For potassium level 3 mmol/L or less and Serum Creatinine 1.2 or less = 50 mEq For potassium level 3.4 to 3.8 mmol/L and Serum Creatinine greater than 1.2 = 20 mEq For potassium level 3.1 to 3.3 mmol/L and Serum Creatinine greater than 1.2 = 30 mEq For potassium level 3 mmol/L or less and Serum Creatinine greater than 1.2 = 40 mEq VESICANT (YELLOW) Infuse each 10 mEq over a minimum of 1 hour. [Order 2 End] Completed/Discontinued Medications Medication Drug Class(es) Dates Sig (Normalized) Sig (Original) amLODIPine 10 mg oral tablet (18 sources) Dihydropyridine Calcium Channel Erika Start: 02-13-2024 End: 04-25-2024 take 1 tablet by mouth in the morning amLODIPine (NORVASC) 10 mg tablet Take 1 tablet (10 mg total) by mouth in the morning. 02/13/2024 04/25/2024 Discontinued (Therapy completed) End: 01-02-2024 take 1 tablet by mouth in the morning amLODIPine (Norvasc) 10 MG tablet Take 10 mg by mouth in the morning. Active aprepitant 40 mg oral capsul e (1 source) Substance P/Neurokinin-1 Receptor Antagonist Start: 05-09-2024 End: 05-09-2024 carvedilol 12.5 mg oral tabl et (20 sources) alpha-Adrenergic Erika, beta-Adrenergic Erika Start: 05-10-2024 End: 05-10-2024 Start: 12-15-2023 docusate sodium 100 mg oral capsule (5 sources) Start: 05-17-2024 End: 05-22-2024 take 1 capsule by mouth in the morning, then take 1 capsule by mouth at bedtime docusate sodium (COLACE) 100 mg capsule Take 1 capsule (100 mg total) by mouth in the morning and 1 capsule (100 mg total) before bedtime. 28 capsule 05/17/2024 05/22/2024 Discontinued (Patient Stopped On Own) Start: 05-17-2024 Start: 05-17-2024 Start: 05-13-2024 metoclopramide 5 mg oral tablet (5 sources) Dopamine-2 Receptor Antagonist Start: 05-17-2024 End: 05-22-2024 take 1 tablet by mouth at bedtime metoclopramide (REGLAN) 5 mg tablet Take 1 tablet (5 mg total) by mouth in the morning and at bedtime for 5 days. 10 tablet 05/17/2024 05/22/2024 Discontinued (Surgery) Start: 05-17-2024 End: 05-22-2024 Start: 05-10-2024 take 5 mg intravenously every twelve hours 2 ml midazolam 1 mg/ml cartridge (1 source) Benzodiazepine Start: 05-09-2024 End: 05-09-2024 oxyCODONE hydrochloride 5 mg oral tablet (4 sources) Opioid Agonist Start: 05-17-2024 End: 05-22-2024 take 1 tablet by mouth every four hours as needed oxyCODONE (ROXICODONE) 5 mg immediate release tablet Indications: Acute postoperative pain Take 1-2 tab po q4h prn pain 30 tablet 05/17/2024 05/22/2024 Discontinued (Side effects) sevelamer carbonate 800 mg powder for oral suspension (20 sources) Phosphate Binder Start: 05-10-2024 End: 05-13-2024 Start: 02-21-2024 sevelamer (BRENDA VILLALBA) 800 mg tablet Indications: renal osteodystrophy with hyperphosphatemia Take 1 tablet (800 mg total) by mouth in the morning and 1 tablet (800 mg total) at noon and 1 tablet (800 mg total) in the evening. Take with meals. Indications: renal osteodystrophy with hyperphosphatemia. 02/21/2024 Active Start: 02-21-2024 Start: 12-26-2023 End: 01-02-2024 Renvela 800 mg oral tablet 8 00 mg = 1 tab(s), Oral, TIDAC, Refills(s) 0 Start Date: 12/26/23 Status: Ordered sodium zirconium cyclosilica te 10049 mg powder for oral suspension (2 sources) Start: 05-09-2024 End: 05-10-2024 Problems Active Problems Problem Classification Problem Date Documented Da te Episodic/Chronic Acute and unspecified renal failure (1 source) Renal failure syndrome 12-26-2023 Chronic Aortic; peripheral; and visceral artery aneurysms (20 sources) Abdominal aortic aneurysm; Translations: [AAA (abdominal aortic aneurysm)] Onset: 02-23-2018 12-15-2023 Chronic Cancer of kidney and renal pelvis (20 sources) Clear cell carcinoma of kidney; Translations: [Malignant neoplasm of unspecified kidney, except renal pelvis] Onset: 05-11-2023 12-15-2023 Chronic Chronic kidney disease (20 sources) Dependence on hemodialysis; Translations: [Chronic kidney disease, unspecified] Onset: 11-16-2023 12-26-2023 Chronic Coronary atherosclerosis and other heart disease (4 sources) Coronary arteriosclerosis; Translations: [Atherosclerotic heart disease of [place] coronary artery without angina pectoris] Onset: 11-11-2023 12-15-2023 Chronic Deficiency and other anemia (1 source) Anemia 12-26-2023 Episodic Diabetes mellitus without complication (1 source) Diabetes mellitus 12-15-2023 Chronic Disorders of lipid metabolism (20 sources) Hypercholesterolemia; Translations: [Mixed hyperlipidemia] Onset: 02-23-2018 12-15-2023 Chronic Essential hypertension (20 sources) Essential hypertension; Translations: [Essential (primary) hypertension] Onset: 02-23-2018 12-15-2023 Chronic Leukemias (12 sources) Chronic lymphocytic leukemia of B-cell type not having achieved remission; Translations: [Chronic lymphoid leukemia, disease] Onset: 05-25-2024 05-25-2024 Chronic Non-Hodgkin`s lymphoma (9 sources) Unspecified B-cell lymphoma, intra-abdominal lymph nodes; Translations: [B-cell lymphoma of intra-abdominal lymph nodes] Onset: 05-23-2024 05-22-2024 Chronic Other aftercare (2 sources) Postoperative visit; Translations: [Encounter for other specified surgical aftercare] 05-30-2024 Episodic Other and unspecified benign neoplasm (2 sources) Melanocytic nevus of trunk; Translations: [Melanocytic nevi of trunk] 04-30-2024 Episodic Other circulatory disease (1 source) Arteriovenous fistula, acquired; Translations: [Arteriovenous fistula, acquired] Onset: 04-02-2024 Chronic Other circulatory disease (1 source) Arteriovenous fistula; Translations: [Arteriovenous fistula, acquired] 04-02-2024 Chronic Other diseases of kidney and ureters (20 sources) Renal mass; Translations: [Other specified disorders of kidney and ureter] Onset: 07-21-2023 07-21-2023 Chronic Other diseases of kidney and ureters (1 source) Other specified disorders of kidney and ureter; Translations: [Other specified disorders of kidney and ureter] Onset: 07-21-2023 Chronic Other ear and sense organ disorders (1 source) Hearing loss 12-15-2023 Chronic Other male genital disorders (1 source) Impotence 12-15-2023 Chronic Other non-epithelial cancer of skin (2 sources) History of malignant neoplasm of skin; Translations: [Personal history of other malignant neoplasm of skin] 04-30-2024 Episodic Other skin disorders (2 sources) Lentiginosis; Translations: [Other melanin hyperpigmentation] 04-30-2024 Episodic Other skin disorders (2 sources) Seborrheic keratosis; Translations: [Other seborrheic keratosis] 04-30-2024 Episodic Other skin disorders (2 sources) Actinic keratosis; Translations: [Actinic keratosis] 04-30-2024 Episodic Pancreatic disorders (not diabetes) (2 sources) Other chronic pancreatitis; Translations: [Chronic pancreatitis] Onset: 02-29-2024 02-29-2024 Chronic Pancreatic disorders (not diabetes) (20 sources) Idiopathic acute pancreatitis; Translations: [Other specified diseases of pancreas] Onset: 02-23-2018 12-15-2023 Episodic Stefany-; endo-; and myocarditis; cardiomyopathy (except that caused by tuberculosis or sexually transmitted disease) (20 sources) Other hypertrophic cardiomyopathy; Translations: [Hypertrophic cardiomyopathy] Onset: 11-16-2023 01-02-2024 Chronic Peripheral and visceral atherosclerosis (20 sources) Peripheral vascular disease, unspecified; Translations: [Peripheral vascular disease, unspecified] Onset: 01-02-2024 01-02-2024 Chronic Phlebitis; thrombophlebitis and thromboembolism (1 source) H/O: thromboembolism 12-15-2023 Episodic Residual codes; unclassified (1 source) Tobacco user; Translations: [Tobacco use] Onset: 12-26-2023 Episodic Residual codes; unclassified (1 source) Pain, unspecified; Translations: [Pain, unspecified] Onset: 10-26-2023 Episodic Screening and history of mental health and substance abuse codes (1 source) Tobacco use and exposure - finding 12-26-2023 Chronic Substance-related disorders (20 sources) Nicotine dependence; Translations: [Nicotine dependence, cigarettes, uncomplicated] Onset: 02-23-2018 12-15-2023 Chronic Unclassified (1 source) Patient encounter status 12-26-2023 Unclassified (3 sources) Infrarenal abdominal aortic aneurysm, without rupture; Translations: [Infrarenal abdominal aortic aneurysm, without rupture] Onset: 02-23-2018 Unclassified (1 source) New Patient Onset: 11-11-2023 Unclassified (1 source) Vascular Access Problem Onset: 04-07-2024 Unclassified (1 source) Ill Onset: 04-07-2024 Unclassified (1 source) Renal cell carcinoma (CMS-HCC) Infrarenal abdominal aortic Onset: 08-23-2024 Unclassified (1 source) Post-op Onset: 05-22-2024 Unclassified (1 source) EGD Onset: 02-29-2024 Past or Other Problems Problem Classification Problem Date Documented Date Episodic/Chronic Acute and unspecified renal failure (1 source) Acute kidney failure, unspecified; Translations: [Acute kidney failure, unspecified] Onset: 11-14-2023 Episodic Diabetes mellitus without complication (2 sources) Hyperglycemia, unspecified; Translations: [Hyperglycemia] Onset: 04-25-2024 04-25-2024 Episodic Fluid and electrolyte disorders (1 source) Hyperkalemia; Translations: [Hyperkalemia] Onset: 05-09-2024 Episodic Mood disorders (20 sources) Mood disorders Onset: 07-21-2023 07-21-2023 Neoplasms of unspecified nature or uncertain behavior (20 sources) Neoplastic disease; Translations: [Neoplasm of unspecified behavior of bone, soft tissue, and skin] Onset: 04-11-2024 04-30-2024 Episodic Nonspecific chest pain (20 sources) Other chest pain; Translations: [Chest discomfort] Onset: 11-16-2023 01-02-2024 Episodic Other and unspecified benign neoplasm (3 sources) Benign neoplasm of pancreas 05-22-2024 Episodic Other nervous system disorders (1 source) Other acute postprocedural pain; Translations: [Other acute postprocedural pain] Onset: 05-09-2024 Episodic Other nervous system disorders (1 source) Acute postoperative pain; Translations: [Other acute postprocedural pain] 05-17-2024 Episodic Other screening for suspected conditions (not mental disorders or infectious disease) (20 sources) Abnormal findings on diagnostic imaging of other abdominal regions, including retroperitoneum; Translations: [Screening for malignant neoplasm of colon done] Onset: 11-30-2022 Episodic Superficial injury; contusion (1 source) Contusion of left upper arm, initial encounter; Translations: [Contusion of left upper arm, initial encounter] Onset: 04-07-2024 Episodic Unclassified (1 source) PAD (peripheral artery disease) ([facility]) 08-22-2024 Results Test Name Value Interpretation Reference Range Facility 36on 10-12-2024 36 TC spoke to patient on the phone and patient confirmed that he is currently smoking. Patient advised that if he quits smoking he may be re-referred, but due to some concerns in his medical history TC will have his case reviewed at committee Tuesday to determine if he is a candidate before re-referral. Patients stated understanding. Patient TE scheduled for 10/16/24. Normal [facility] CT ABDOMEN W CONTon 08-16-19 CT [address] CONT CT ABDOMEN W CONT History: Lymphoma Technique: Contiguous axial images through the abdomen Chest findings will be reported separately. Were obtained following the administration of intravenous contrast material. Automated exposure control was utilized. Comparison: 01/27/2024 Findings: Postoperative changes from a partial right nephrectomy are again seen. The left testicular hyperdensity anterior to the right kidney seen on the previous examination is no longer demonstrated. In addition, the masslike abnormality in the right upper kidney described in the prior study has also resolved most like representing postoperative changes. Currently, no right renal adenopathy are seen. The left kidney is again noted to be small and atrophic but functioning. There is been significant improvement in the pancreatic ductal dilatation seen on the prior study. Mild dilatation persists but has decreased significantly since the prior study. A small amount of free fluid adjacent to the liver that is new since the prior study. There is no evidence of any hepatic, splenic, or adrenal nodules. A 4.2 cm infrarenal abdominal aortic aneurysm is again seen and appears unchanged since the prior study. There is stenosis/short segmental occlusion of the left common iliac artery. Multiple prominent retroperitoneal lymph nodes are again seen but appears stable. No new or enlarging abdominal or retroperitoneal masses or adenopathy are seen. Impression: * Multiple prominent retroperitoneal lymph nodes, all unchanged from previous examination dated 01/27/2024 * Stable infrarenal abdominal aortic aneurysm * Resolution of the postoperative changes about the right kidney seen on the prior study * Improved but persistent pancreatic ductal dilatation. All CT scans at this facility use dose modulation, iterative reconstruction, and/or weight based dosing when appropriate to reduce radiation dose to as low as reasonably achievable Finalized by Jules Pathak MD on 08/16/2024 1:46 PM Normal [facility] CT CHEST W CONTon 08-16-2024 CT CHEST W CONT CT CHEST W CONT CLINICAL INFORMATION: IPMN (intraductal papillary mucinous neoplasm); B-cell lymphoma of intra-abdominal lymph nodes, unspecified B-cell lymphoma type (CMS-HCC) TECHNIQUE: CT CHEST W CONT CT images of the abdomen and pelvis are obtained and compared to prior exam dated 05/24/2023. Axillary and mediastinal lymph nodes appear stable in comparison with the previous exam.. Atherosclerotic changes present. There are heavy coronary arterial atherosclerotic changes. No focal parenchymal consolidation or pneumothorax. Airway appears patent. Mild emphysematous changes. Limited images the upper abdomen show pneumobilia. Dedicated CT of the abdomen will be dictated separately. IMPRESSION: No acute cardiopulmonary findings. Pneumobilia. Heavy coronary arterial atherosclerotic calcification All CT scans at this facility use dose modulation, iterative reconstruction, and/or weight based dosing when appropriate to reduce radiation dose to as low as reasonably achievable. Finalized by Amari Ford MD on 08/16/2024 1:13 PM Normal [facility] Glucose Glucometer (BldC) [M ass/Vol]on 08-14-2024 Glucose [Mass/Vol] 103 mg/dL High 65-99 [facility] POTASSIUMon 08-14-2024 Potassium [Moles/Vol] 4.7 mmol/L Normal 3.5-5.0 [facility] Comment on above: Performed By: #### 2 823-3 ####[facility] ([id number])[address] [facility], [address] [place] [address] CREATININEon 08-13-2024 Creatinine [Mass/Vol] 1.57 mg/dL High 0.60-1.30 [facility] Comment on above: Result Comment: METH OD TRACEABLE TO IDMS STANDARD Performed By: #### C RT #### [facility] ([id number]) [address] [facility], [address] [address] GFR/1.73 sq M.predicted among non-blacks MDRD (S/P/Bld) [Vol rate/Area] 48 mL/min/{1.73_m2} Low >59 [facility] Comment on above: Result Comment: Reported eGFR is based on the CKD-EPI 2020 equation that does not use a race coefficient. Performed By: #### C RT #### [facility] ([id number]) [address] [facility], [address] [place] [address] HEMOGLOBINon 07-24-2024 Hemoglobin (Bld) [Mass/Vol] 11.4 g/dL Low 13.0-17.0 [facility] Comment on above: Performed By: #### 7 18-7 #### [facility] ([id number]) [address] [place] [address], [place] [address] FLOW CYTOMETRYon 05-23-2024 FLOW CYTOMETRY SEE SEPARATE REPORT, REVIEWED BY PATHOLOGIST Normal [facility] Comment on above: Performed By: #### L LPH #### [facility] ([id number]) [facility] [facility], [address] [place] [address] CBC AND AUTO DIFFon 10-24-20 24 ABSOLUTE BASOPHIL 0.1 X10E9/L Normal 0.0-0.2 [facility] Comment on above: Performed By: #### C BCA, CMP, , 2776-07 ####[facility] ([id number])[address], [address], [place] [address] ABSOLUTE NEUTROPHIL 5.6 X10E9/L Normal 1.5-6.6 [facility] Comment on above: Performed By: #### C BCA, CMP, , 2776-07 ####[facility] ([id number])[address], [address], [place] [address] Basophils/100 WBC (Bld) 0.8 % Normal [facility] Comment on above: Performed By: #### Kathleen BCA, CMP, , 2776-07 ####[facility] ([id number])[address], [address] [place] [address] Eosinophils (Bld) [#/Vol] 0.7 10*3/uL High 0.0-0.4 [facility] Comment on above: Performed By: #### C BCA, CMP, , 2776-07 ####[facility] ([id number])[address] [address] [place] [address] Eosinophils/100 WBC (Bld) 6.2 % Normal [facility] Comment on above: Performed By: #### C BCA, CMP, , 2776-07 ####[facility] ([id number])[address], [address] [place] [address] Erythrocyte distribution width (RBC) [Ratio] 13.3 % Normal 11.5-15.0 [facility] Comment on above: Performed By: #### C BCA, CMP, , 2776-07 ####[facility] ([id number])[address], [address], [place] [address] Hematocrit (Bld) [Volume fraction] 31.1 % Low 39-49 [facility] Comment on above: Performed By: #### C DOUGLAS, CMP, , 2776-07 ####[facility] ([id number])[address], [address], [place] [address] Hemoglobin (Bld) [Mass/Vol] 11.1 g/dL Low 13.0-17.0 [facility] Comment on above: Performed By: #### C DOUGLAS, CMP, , 2776-07 ####[facility] ([id number])[address], [address] [place] [address] Lymphocytes (Bld) [#/Vol] 3.6 10*3/uL High 1.0-3.5 [facility] Comment on above: Performed By: #### Kathleen BCA, CMP, , 2776-07 ####[facility] ([id number])[address] [address], [place] [address] Lymphocytes/100 WBC (Bld) 34.0 % Normal [facility] Comment on above: Performed By: #### C BCA, CMP, , 2776-07 ####[facility] ([id number])[address], [address] [place] [address] MCH (RBC) [Entitic mass] 33.0 pg Normal 27-34 [facility] Comment on above: Performed By: #### C BCA, CMP, , 2776-07 ####[facility] ([id number])[address] [address] [place] [address] MCHC (RBC) [Mass/Vol] 35.8 g/dL Normal 32-36 [facility] Comment on above: Performed By: #### C BCA, CMP, , 2776-07 ####[facility] ([id number])[address], [address] [place] [address] MCV (RBC) [Entitic vol] 92 fL Normal 80-100 [facility] Comment on above: Performed By: #### C BCA, CMP, , 2776-07 ####[facility] ([id number])[address], [address] [place] [address] Monocytes (Bld) [#/Vol] 0.7 10*3/uL Normal 0-0.9 [facility] Comment on above: Performed By: #### C DOUGLAS, CMP, , 2776-07 ####[facility] ([id number])[address], [address], [place] [address] Monocytes/100 WBC (Bld) 6.6 % Normal [facility] Comment on above: Performed By: #### C BCA, CMP, , 2776-07 ####[facility] ([id number])[address], [address], [place] [address] Neutrophils/100 WBC (Bld) 52.4 % Normal [facility] Comment on above: Performed By: #### Kathleen BCA, CMP, , 2776-07 ####[facility] ([id number])[address], [address] [place] [address] Platelet mean volume (Bld) [Entitic vol] 6.6 fL Low 7-12 [facility] Comment on above: Performed By: #### C BCA, CMP, , 2776-07 ####[facility] ([id number])[address], [address] [place] [address] Platelets (Bld) [#/Vol] 305 10*3/uL Normal 150-450 [facility] Comment on above: Performed By: #### C BCA, CMP, , 2777-1 ####[facility] ([id number])[address], [address], [place] [address] RBC COUNT 3.38 X10E12/L Low 4.10-5.70 [facility] Comment on above: Performed By: #### C DOUGLAS, RAFAEL, 16800-7, 2777-1 ####[facility] ([id number])[address], [address] [place] [address] WBC (Bld) [#/Vol] 10.7 10*3/uL Normal 4.0-11.0 [facility] Comment on above: Performed By: #### C DOUGLAS, RAFAEL, 10163-0, 2777-1 ####[facility] ([id number])[address], [address] [place] [address] CBC auto differentialon 04-25 Basophils (Bld) [#/Vol] 0.1 10*3/uL [facility] Basophils/100 WBC (Bld) 0.8 % [facility] Eosinophils (Bld) [#/Vol] 0.7 10*3/uL High [facility] Eosinophils/100 WBC (Bld) 6.2 % [facility] Erythrocyte distribution width (RBC) [Ratio] 13.3 % 11.5 - 15.0 % [facility] Hematocrit (Bld) [Volume fraction] 31.1 % Low 39 - 49 % [facility] Hemoglobin (Bld) [Mass/Vol] 11.1 g/dL Low 13.0 - 17.0 g/dL [facility] Interpretation and review of laboratory results Abnormal [facility] Lymphocytes (Bld) [#/Vol] 3.6 10*3/uL High [facility] Lymphocytes/100 WBC (Bld) 34 % [facility] MCH (RBC) [Entitic mass] 33 pg 27 - 34 pg [facility] MCHC (RBC) [Mass/Vol] 35.8 g/dL 32 - 36 g/dL [facility] MCV (RBC) [Entitic vol] 92 fL 80 - 100 fL [facility] Monocytes (Bld) [#/Vol] 0.7 10*3/uL [facility] Monocytes/100 WBC (Bld) 6.6 % [facility] Neutrophils (Bld) [#/Vol] 5.6 10*3/uL [facility] Neutrophils/100 WBC (Bld) 52.4 % [facility] Platelet mean volume (Bld) [Entitic vol] 6.6 fL Low 7 - 12 fL [facility] Platelets (Bld) [#/Vol] 305 10*3/uL [facility] RBC (Bld) [#/Vol] 3.38 10*6/uL Low [facility] WBC corrected for nucl RBC Auto (Bld) [#/Vol] 10.7 [facility] COMPREHENSIVE METABOLIC PANE Cecilio 05-17-2024 Albumin [Mass/Vol] 3.7 g/dL Normal 3.2-5.3 [facility] Comment on above: Performed By: #### C BCA, CMP, , 2776-07 ####[facility] ([id number])[address], [address] [place] [address] ALP [Catalytic activity/Vol] 91 U/L Normal 39-130 [facility] Comment on above: Performed By: #### Kathleen BCA, CMP, , 2776-07 ####[facility] ([id number])[address], [address] [place] [address] ALT [Catalytic activity/Vol] 24 U/L Normal 0-40 [facility] Comment on above: Performed By: #### C BCA, CMP, , 2776-07 ####[facility] ([id number])[address], [address] [place] [address] Anion gap [Moles/Vol] 15 mmol/L Normal 5-15 [facility] Comment on above: Performed By: #### C BCA, CMP, , 2776-07 ####[facility] ([id number])[address], [place] [address] AST [Catalytic activity/Vol] 16 U/L Normal 0-41 [facility] Comment on above: Performed By: #### C BCA, CMP, , 2776-07 ####[facility] ([id number])[address], [place] [address] Bilirubin [Mass/Vol] 0.5 mg/dL Normal 0.3-1.2 [facility] Comment on above: Performed By: #### C BCA, CMP, , 2776-07 ####[facility] ([id number])[address], [place] [address] Calcium [Mass/Vol] 8.5 mg/dL Normal 8.5-10.5 [facility] Comment on above: Performed By: #### C BCA, CMP, , 2776-07 ####[facility] ([id number])[address] [address], [place] [address] Chloride [Moles/Vol] 99 mmol/L Normal 98-109 [facility] Comment on above: Performed By: #### C BCA, CMP, , 2776-07 ####[facility] ([id number])[address] [address], [place] [address] CO2 [Moles/Vol] 21 mmol/L Low 22-32 [facility] Comment on above: Performed By: #### C BCA, CMP, , 2776-07 ####[facility] ([id number])[address], [place] [address] Creatinine [Mass/Vol] 4.01 mg/dL High 0.60-1.30 [facility] Comment on above: Result Comment: METH OD TRACEABLE TO IDMS STANDARD Performed By: #### C BCA, CMP, , 2776-07 ####[facility] ([id number])[address], [place] [address] GFR/1.73 sq M.predicted among non-blacks MDRD (S/P/Bld) [Vol rate/Area] 16 mL/min/{1.73_m2} Low >59 [facility] [place] Comment on above: Result Comment: Reported eGFR is based on the CKD-EPI 2020 equation that does not use a race coefficient. Performed By: #### C BCA, CMP, , 2776-07 ####[facility] ([id number])[address], [place] [address] Glucose [Mass/Vol] 135 mg/dL High 65-99 [facility] Comment on above: Performed By: #### C BCA, CMP, , 2776-07 ####[facility] ([id number])[address], [place] [address] Potassium [Moles/Vol] 4.0 mmol/L Normal 3.5-5.0 [facility] [place] Comment on above: Performed By: #### C BCA, CMP, , 2776-07 ####[facility] ([id number])[address], [place] [address] Protein [Mass/Vol] 6.4 g/dL Normal 6.0-8.0 [facility] Comment on above: Performed By: #### C BCA, CMP, , 2776-07 ####[facility] ([id number])[address], [place] [address] Sodium [Moles/Vol] 135 mmol/L Normal 134-146 [facility] Comment on above: Performed By: #### C BCA, CMP, , 2776-07 ####[facility] ([id number])[address], [place] [address] Urea nitrogen [Mass/Vol] 54 mg/dL High 5-27 [facility] [place] Comment on above: Performed By: #### C BCA, [facility], [address]459-1, 2777-1 ####[facility] ([id number])[address] [facility], [address], [place] [address] Comprehensive metabolic pane cecilio 05-17-2024 Albumin [Mass/Vol] 3.7 g/dL 3.2 - 5.3 g/dL [facility] ALP [Catalytic activity/Vol] 91 U/L 39 - 130 U/L [facility] ALT No additional P-5'-P [Catalytic activity/Vol] 24 U/L 0 - 40 U/L [facility] Anion gap [Moles/Vol] 15 mmol/L 5 - 15 mmol/L [facility] AST [Catalytic activity/Vol] 16 U/L 0 - 41 U/L [facility] Bilirubin [Mass/Vol] 0.5 mg/dL 0.3 - 1.2 mg/dL [facility] Calcium [Mass/Vol] 8.5 mg/dL 8.5 - 10. 5 mg/dL [facility] Chloride [Moles/Vol] 99 mmol/L 98 - 109 mmol/L [facility] CO2 [Moles/Vol] 21 mmol/L Low 22 - 32 mmol/L [facility] Creatinine [Mass/Vol] 4.01 mg/dL High 0.60 - 1.30 mg/dL [facility] eGFR (CKD-EPI)non-race dependent 16 Low - PINF [facility] Glucose [Mass/Vol] 135 mg/dL High 65 - 99 mg/dL [facility] Potassium [Moles/Vol] 4 mmol/L 3.5 - 5.0 mmol/L [facility] Protein [Mass/Vol] 6.4 g/dL 6.0 - 8.0 g/dL [facility] Sodium [Moles/Vol] 135 mmol/L 134 - 146 mmol/L [facility] Urea nitrogen [Mass/Vol] 54 mg/dL High 5 - 27 mg/dL [facility] Glucose Glucometer (BldC) [M ass/Vol]on 05-17-2024 Glucose [Mass/Vol] 152 mg/dL High 65 - 99 mg/dL [facility] Interpretation and review of laboratory results Abnormal [facility] Glucose [Mass/Vol] 152 mg/dL High 65-99 [facility] Glucose [Mass/Vol] 94 mg/dL 65 - 99 mg/dL [facility] Glucose [Mass/Vol] 94 mg/dL Normal 65-99 [facility] Hemodialysis inpatienton [facility] MAGNESIUMon 05-17-2024 Magnesium [Mass/Vol] 2.3 mg/dL Normal 1.8-2.6 [facility] [place] Comment on above: Performed By: #### Kathleen COLE CMP, , 2777-1 ####[facility] ([id number])[address], [address] [place] [address] Magnesiumon 05-17-2024 Magnesium [Mass/Vol] 2.3 mg/dL 1.8 - 2.6 mg/dL [facility] No Panel Informationon 05-17 Interpretation and review of laboratory results Abnormal [facility] PHOSPHORUSon 05-17-2024 Phosphate [Mass/Vol] 5.0 mg/dL High 2.4-4.9 [facility] [place] Comment on above: Performed By: #### Kathleen COLE CMP, , 2777-1 ####[facility] ([id number])[address], [address] [place] [address] Phosphoruson 05-17-2024 Phosphate [Mass/Vol] 5 mg/dL High 2.4 - 4.9 mg/dL [facility] CBC AND AUTO DIFFon 05-16-20 ABSOLUTE BASOPHIL 0.1 X10E9/L Normal 0.0-0.2 [facility] Comment on above: Performed By: #### Kathleen COLE CMP, 87861-5, 2777-1 ####[facility] ([id number])[address], [place] [address] ABSOLUTE NEUTROPHIL 6.5 X10E9/L Normal 1.5-6.6 [facility] Comment on above: Performed By: #### C DOUGLAS, CMP, , 2776-07 ####[facility] ([id number])[address], [place] [address] Basophils/100 WBC (Bld) 0.9 % Normal [facility] [place] Comment on above: Performed By: #### C BCA, CMP, , 2776-07 ####[facility] ([id number])[address] [address], [place] [address] Eosinophils (Bld) [#/Vol] 0.8 10*3/uL High 0.0-0.4 [facility] [place] Comment on above: Performed By: #### Kathleen COLE, CMP, , 2776-07 ####[facility] ([id number])[address], [place] [address] Eosinophils/100 WBC (Bld) 6.6 % Normal [facility] [place] Comment on above: Performed By: #### Kathleen BCA, CMP, , 2776-07 ####[facility] ([id number])[address] [address], [place] [address] Erythrocyte distribution width (RBC) [Ratio] 13.3 % Normal 11.5-15.0 [facility] [place] Comment on above: Performed By: #### C BCA, CMP, , 2776-07 ####[facility] ([id number])[address], [place] [address] Hematocrit (Bld) [Volume fraction] 33.1 % Low 39-49 [facility] [place] Comment on above: Performed By: #### C BCA, CMP, , 2776-07 ####[facility] ([id number])[address], [address], [place] [address] Hemoglobin (Bld) [Mass/Vol] 11.7 g/dL Low 13.0-17.0 [facility] [place] Comment on above: Performed By: #### C BCA, CMP, , 2776-07 ####[facility] ([id number])[address], [place] [address] Lymphocytes (Bld) [#/Vol] 3.6 10*3/uL High 1.0-3.5 [facility] [place] Comment on above: Performed By: #### C BCA, CMP, , 2776-07 ####[facility] ([id number])[address], [address] [place] [address] Lymphocytes/100 WBC (Bld) 30.9 % Normal [facility] [place] Comment on above: Performed By: #### C BCA, CMP, , 2776-07 ####[facility] ([id number])[address] [place] [address] MCH (RBC) [Entitic mass] 32.7 pg Normal 27-34 [facility] [place] Comment on above: Performed By: #### C BCA, CMP, , 2776-07 ####[facility] ([id number])[address] [place] [address] MCHC (RBC) [Mass/Vol] 35.2 g/dL Normal 32-36 [facility] [place] Comment on above: Performed By: #### C BCA, CMP, , 2776-07 ####[facility] ([id number])[address] [place] [address] MCV (RBC) [Entitic vol] 93 fL Normal 80-100 [facility] [place] Comment on above: Performed By: #### C BCA, CMP, , 2776-07 ####[facility] ([id number])[address], [place] [address] Monocytes (Bld) [#/Vol] 0.6 10*3/uL Normal 0-0.9 [facility] [place] Comment on above: Performed By: #### C BCA, CMP, , 2776-07 ####[facility] ([id number])[address], [place] [address] Monocytes/100 WBC (Bld) 5.1 % Normal [facility] [place] Comment on above: Performed By: #### C BCA, CMP, , 2776-07 ####[facility] ([id number])[address], [place] [address] Neutrophils/100 WBC (Bld) 56.5 % Normal [facility] [place] Comment on above: Performed By: #### C BCA, CMP, , 2776-07 ####[facility] ([id number])[address], [place] [address] Platelet mean volume (Bld) [Entitic vol] 6.8 fL Low 7-12 [facility] [place] Comment on above: Performed By: #### C BCA, CMP, , 2776-07 ####[facility] ([id number])[address], [place] [address] Platelets (Bld) [#/Vol] 313 10*3/uL Normal 150-450 [facility] [place] Comment on above: Performed By: #### C BCA, CMP, , 2776-07 ####[facility] ([id number])[address] [place] [address] RBC COUNT 3.57 X10E12/L Low 4.10-5.70 [facility] [place] Comment on above: Performed By: #### C BCA, CMP, , 2777-1 ####[facility] ([id number])[address], [place] [address] WBC (Bld) [#/Vol] 11.5 10*3/uL High 4.0-11.0 [facility] Comment on above: Performed By: #### C BCA, CMP, 82837-0, 2777-1 ####[facility] ([id number])[address], [place] [address] CBC auto differentialon 04-25 Basophils (Bld) [#/Vol] 0.1 10*3/uL [facility] Basophils/100 WBC (Bld) 0.9 % [facility] Eosinophils (Bld) [#/Vol] 0.8 10*3/uL High [facility] Eosinophils/100 WBC (Bld) 6.6 % [facility] Erythrocyte distribution width (RBC) [Ratio] 13.3 % 11.5 - 15.0 % [facility] Hematocrit (Bld) [Volume fraction] 33.1 % Low 39 - 49 % [facility] Hemoglobin (Bld) [Mass/Vol] 11.7 g/dL Low 13.0 - 17.0 g/dL [facility] Interpretation and review of laboratory results Abnormal [facility] Lymphocytes (Bld) [#/Vol] 3.6 10*3/uL High [facility] Lymphocytes/100 WBC (Bld) 30.9 % [facility] MCH (RBC) [Entitic mass] 32.7 pg 27 - 34 pg [facility] MCHC (RBC) [Mass/Vol] 35.2 g/dL 32 - 36 g/dL [facility] MCV (RBC) [Entitic vol] 93 fL 80 - 100 fL [facility] Monocytes (Bld) [#/Vol] 0.6 10*3/uL [facility] Monocytes/100 WBC (Bld) 5.1 % [facility] Neutrophils (Bld) [#/Vol] 6.5 10*3/uL [facility] Neutrophils/100 WBC (Bld) 56.5 % [facility] Platelet mean volume (Bld) [Entitic vol] 6.8 fL Low 7 - 12 fL [facility] Platelets (Bld) [#/Vol] 313 10*3/uL [facility] RBC (Bld) [#/Vol] 3.57 10*6/uL Low [facility] WBC corrected for nucl RBC Auto (Bld) [#/Vol] 11.5 High [facility] COMPREHENSIVE METABOLIC PANE Cecilio 05-16-2024 Albumin [Mass/Vol] 4.1 g/dL Normal 3.2-5.3 [facility] Comment on above: Performed By: #### C BCA, CMP, , 2776- ####[facility] ([id number])[address], [place] [address] ALP [Catalytic activity/Vol] 99 U/L Normal 39-130 [facility] [place] Comment on above: Performed By: #### C BCA, CMP, , 2776-07 ####[facility] ([id number])[address], [place] [address] ALT [Catalytic activity/Vol] 32 U/L Normal 0-40 [facility] [place] Comment on above: Performed By: #### C BCA, CMP, , 2776-07 ####[facility] ([id number])[address], [place] [address] Anion gap [Moles/Vol] 18 mmol/L High 5-15 [facility] [place] Comment on above: Performed By: #### C BCA, CMP, , 2776-07 ####[facility] ([id number])[address], [place] [address] AST [Catalytic activity/Vol] 20 U/L Normal 0-41 [facility] [place] Comment on above: Performed By: #### C BCA, CMP, , 2776-07 ####[facility] ([id number])[address], [place] [address] Bilirubin [Mass/Vol] 0.7 mg/dL Normal 0.3-1.2 [facility] [place] Comment on above: Performed By: #### C BCA, CMP, , 2776-07 ####[facility] ([id number])[address], [place] [address] Calcium [Mass/Vol] 8.8 mg/dL Normal 8.5-10.5 [facility] Comment on above: Performed By: #### C BCA, CMP, , 2776-07 ####[facility] ([id number])[address], [place] [address] Chloride [Moles/Vol] 97 mmol/L Low 98-109 [facility] [place] Comment on above: Performed By: #### C BCA, CMP, , 2776-07 ####[facility] ([id number])[address] [place] [address] CO2 [Moles/Vol] 20 mmol/L Low 22-32 [facility] [place] Comment on above: Performed By: #### C BCA, CMP, , 2776-07 ####[facility] ([id number])[address] [place] [address] Creatinine [Mass/Vol] 3.32 mg/dL High 0.60-1.30 [facility] [place] Comment on above: Result Comment: METH OD TRACEABLE TO IDMS STANDARD Performed By: #### C BCA, CMP, , 2776-07 ####[facility] ([id number])[address], [place] [address] GFR/1.73 sq M.predicted among non-blacks MDRD (S/P/Bld) [Vol rate/Area] 20 mL/min/{1.73_m2} Low >59 [facility] [place] Comment on above: Result Comment: Reported eGFR is based on the CKD-EPI 2020 equation that does not use a race coefficient. Performed By: #### C DOUGLAS CMP, , 2776-07 ####[facility] ([id number])[address], [place] [address] Glucose [Mass/Vol] 163 mg/dL High 65-99 [facility] Comment on above: Performed By: #### C DOUGLAS, CMP, , 2776-07 ####[facility] ([id number])[address] [address] Potassium [Moles/Vol] 4.6 mmol/L Normal 3.5-5.0 [facility] [place] Comment on above: Performed By: #### C BCA, CMP, , 2776-07 ####[facility] ([id number])[address], [place] [address] Protein [Mass/Vol] 7.0 g/dL Normal 6.0-8.0 [facility] Comment on above: Performed By: #### C DOUGLAS, CMP, , 2776-07 ####[facility] ([id number])[address] [address] Sodium [Moles/Vol] 135 mmol/L Normal 134-146 [facility] Comment on above: Performed By: #### C BCA, CMP, , 2776-07 ####[facility] ([id number])[address] [address] Urea nitrogen [Mass/Vol] 37 mg/dL High 5-27 [facility] [place] Comment on above: Performed By: #### C BCA, CMP, , 2776-07 ####[facility] ([id number])[address], [place] [address] Comprehensive metabolic pane cecilio 05-16-2024 Albumin [Mass/Vol] 4.1 g/dL 3.2 - 5.3 g/dL [facility] ALP [Catalytic activity/Vol] 99 U/L 39 - 130 U/L [facility] ALT No additional P-5'-P [Catalytic activity/Vol] 32 U/L 0 - 40 U/L [facility] Anion gap [Moles/Vol] 18 mmol/L High 5 - 15 mmol/L [facility] AST [Catalytic activity/Vol] 20 U/L 0 - 41 U/L [facility] Bilirubin [Mass/Vol] 0.7 mg/dL 0.3 - 1.2 mg/dL [facility] Calcium [Mass/Vol] 8.8 mg/dL 8.5 - 10. 5 mg/dL [facility] Chloride [Moles/Vol] 97 mmol/L Low 98 - 109 mmol/L [facility] CO2 [Moles/Vol] 20 mmol/L Low 22 - 32 mmol/L [facility] Creatinine [Mass/Vol] 3.32 mg/dL High 0.60 - 1.30 mg/dL [facility] eGFR (CKD-EPI)non-race dependent 20 Low - PINF [facility] Glucose [Mass/Vol] 163 mg/dL High 65 - 99 mg/dL [facility] Potassium [Moles/Vol] 4.6 mmol/L 3.5 - 5.0 mmol/L [facility] Protein [Mass/Vol] 7 g/dL 6.0 - 8.0 g/dL [facility] Sodium [Moles/Vol] 135 mmol/L 134 - 146 mmol/L [facility] Urea nitrogen [Mass/Vol] 37 mg/dL High 5 - 27 mg/dL [facility] Glucose Glucometer (BldC) [M ass/Vol]on 05-16-2024 Glucose [Mass/Vol] 81 mg/dL 65 - 99 mg/dL [facility] Glucose [Mass/Vol] 81 mg/dL Normal 65-99 [facility] Glucose [Mass/Vol] 214 mg/dL High 65 - 99 mg/dL [facility] Interpretation and review of laboratory results Abnormal [facility] Glucose [Mass/Vol] 214 mg/dL High 65-99 [facility] Glucose [Mass/Vol] 171 mg/dL High 65 - 99 mg/dL [facility] Interpretation and review of laboratory results Abnormal [facility] Glucose [Mass/Vol] 171 mg/dL High 65-99 [facility] Glucose [Mass/Vol] 184 mg/dL High 65 - 99 mg/dL [facility] Interpretation and review of laboratory results Abnormal [facility] Glucose [Mass/Vol] 184 mg/dL High 65-99 [facility] Glucose [Mass/Vol] 189 mg/dL High 65 - 99 mg/dL [facility] Interpretation and review of laboratory results Abnormal [facility] Glucose [Mass/Vol] 189 mg/dL High 65-99 [facility] Glucose [Mass/Vol] 143 mg/dL High 65 - 99 mg/dL [facility] Interpretation and review of laboratory results Abnormal [facility] Glucose [Mass/Vol] 143 mg/dL High 65-99 [facility] Glucose [Mass/Vol] 135 mg/dL High 65 - 99 mg/dL [facility] Interpretation and review of laboratory results Abnormal [facility] MAGNESIUMon 05-16-2024 Magnesium [Mass/Vol] 2.2 mg/dL Normal 1.8-2.6 [facility] Comment on above: Performed By: #### C BCA, CMP, 36235-5, 2777-1 ####[facility] ([id number])[address] [facility], [address] [place] [address] Magnesiumon 05-16-2024 Magnesium [Mass/Vol] 2.2 mg/dL 1.8 - 2.6 mg/dL [facility] No Panel Informationon 05-16 Interpretation and review of laboratory results Abnormal [facility] PHOSPHORUSon 05-16-2024 Phosphate [Mass/Vol] 5.3 mg/dL High 2.4-4.9 [facility] Comment on above: Performed By: #### C BCA, CMP, 71679-6, 2776-07 ####[facility] ([id number])[address], [place] [address] Phosphoruson 05-16-2024 Phosphate [Mass/Vol] 5.3 mg/dL High 2.4 - 4.9 mg/dL [facility] CBC AND AUTO DIFFon 05-15-20 ABSOLUTE BASOPHIL 0.0 X10E9/L Normal 0.0-0.2 [facility] Comment on above: Performed By: #### C BCA, CMP, , 2776-07, FEPR, 6-4, 2283-8, 2132-03 ####[facility] ([id number])[address], [place] [address] ABSOLUTE NEUTROPHIL 5.1 X10E9/L Normal 1.5-6.6 [facility] Comment on above: Performed By: #### C BCA, CMP, , 2776-07, FEPR, 2276-4, 2283-8, 2132-03 ####[facility] ([id number])[address] [place] [address] Basophils/100 WBC (Bld) 0.5 % Normal [facility] Comment on above: Performed By: #### C BCA, CMP, , 2776-07, FEPR, 2276-4, 2283-8, 2132-03 ####[facility] ([id number])[address] [place] [address] Eosinophils (Bld) [#/Vol] 0.7 10*3/uL High 0.0-0.4 [facility] Comment on above: Performed By: #### C BCA, CMP, 57487-3, 2776-, FEPR, 2276-4, 2284-8, 2132-03 ####[facility] ([id number])[address] [place] [address] Eosinophils/100 WBC (Bld) 8.2 % Normal [facility] Comment on above: Performed By: #### C BCA, CMP, 06982-3, 2776-, FEPR, 2276-4, 2284-8, 2132-03 ####[facility] ([id number])[address] [address] Erythrocyte distribution width (RBC) [Ratio] 13.2 % Normal 11.5-15.0 [facility] Comment on above: Performed By: #### C BCA, CMP, , 2776-, FEPR, 2276-4, 2284-8, 2132-03 ####[facility] ([id number])[address] [address] Hematocrit (Bld) [Volume fraction] 29.5 % Low 39-49 [facility] Comment on above: Performed By: #### C BCA, CMP, , 2776-07, FEPR, 2276-4, 228-8, 2132-03 ####[facility] ([id number])[address] [address] Hemoglobin (Bld) [Mass/Vol] 10.3 g/dL Low 13.0-17.0 [facility] Comment on above: Performed By: #### C BCA, CMP, , 2776-07, FEPR, 2276-4, 2284-8, 2132-03 ####[facility] ([id number])[address] [address] Lymphocytes (Bld) [#/Vol] 2.0 10*3/uL Normal 1.0-3.5 [facility] Comment on above: Performed By: #### C BCA, CMP, 14886-7, 2776-, FEPR, 2276-4, 2284-8, 2132-03 ####[facility] ([id number])[address] [address] Lymphocytes/100 WBC (Bld) 23.8 % Normal [facility] Comment on above: Performed By: #### C BCA, CMP, 88087-1, 2776-1, FEPR, 6-4, 2283-8, 2132-03 ####[facility] ([id number])[address] [place] [address] MCH (RBC) [Entitic mass] 32.6 pg Normal 27-34 [facility] Comment on above: Performed By: #### C BCA, CMP, 04715-4, 2776-, FEPR, 2275-4, 2284-02, 2132-03 ####[facility] ([id number])[address] [address] MCHC (RBC) [Mass/Vol] 35.1 g/dL Normal 32-36 [facility] Comment on above: Performed By: #### C BCA, CMP, 48763-3, 2776-, FEPR, 2275-, 2284-02, 2132-03 ####[facility] ([id number])[address] [address] MCV (RBC) [Entitic vol] 93 fL Normal 80-100 [facility] Comment on above: Performed By: #### C BCA, CMP, 20316-7, 2776-, FEPR, 2275-4, 2283-, 2132-03 ####[facility] ([id number])[address] [address] Monocytes (Bld) [#/Vol] 0.5 10*3/uL Normal 0-0.9 [facility] [place] Comment on above: Performed By: #### C BCA, CMP, 72944-4, 2777-1, FEPR, 2276-4, 2284-8, 2132-03 ####[facility] ([id number])[address] [place] [address] Monocytes/100 WBC (Bld) 6.3 % Normal [facility] [place] Comment on above: Performed By: #### C BCA, CMP, 56903-0, 2776-1, FEPR, 2276-4, 2284-8, 2132-03 ####[facility] ([id number])[address] [place] [address] Neutrophils/100 WBC (Bld) 61.2 % Normal [facility] [place] Comment on above: Performed By: #### C BCA, CMP, 82812-4, 2776-, FEPR, 2276-4, 2284-8, 2132-03 ####[facility] ([id number])[address] [place] [address] Platelet mean volume (Bld) [Entitic vol] 6.7 fL Low 7-12 [facility] [place] Comment on above: Performed By: #### C BCA, CMP, 08925-0, 2776-, FEPR, 2276-4, 2283-8, 2132-03 ####[facility] ([id number])[address] [address] [place] [address] Platelets (Bld) [#/Vol] 228 10*3/uL Normal 150-450 [facility] [place] Comment on above: Performed By: #### C BCA, CMP, 68008-3, 2776-1, FEPR, 2276-4, 2284-8, 2132-03 ####[facility] ([id number])[address], [address] [place] [address] RBC COUNT 3.17 X10E12/L Low 4.10-5.70 [facility] [place] Comment on above: Performed By: #### C BCA, CMP, 90436-6, 2777-1, FEPR, 2276-4, 2284-8, 2132-03 ####[facility] ([id number])[address], [address] [place] [address] WBC (Bld) [#/Vol] 8.3 10*3/uL Normal 4.0-11.0 [facility] Comment on above: Performed By: #### C BCA, CMP, 58947-1, 2776-1, FEPR, 6-4, 4-8, 2132-03 ####[facility] ([id number])[address], [address], [place] [address] CBC auto differentialon 04-25 Basophils (Bld) [#/Vol] 0 10*3/uL [facility] Basophils/100 WBC (Bld) 0.5 % [facility] Eosinophils (Bld) [#/Vol] 0.7 10*3/uL High [facility] Eosinophils/100 WBC (Bld) 8.2 % [facility] Erythrocyte distribution width (RBC) [Ratio] 13.2 % 11.5 - 15.0 % [facility] Hematocrit (Bld) [Volume fraction] 29.5 % Low 39 - 49 % [facility] Hemoglobin (Bld) [Mass/Vol] 10.3 g/dL Low 13.0 - 17.0 g/dL [facility] Interpretation and review of laboratory results Abnormal [facility] Lymphocytes (Bld) [#/Vol] 2 10*3/uL [facility] Lymphocytes/100 WBC (Bld) 23.8 % [facility] MCH (RBC) [Entitic mass] 32.6 pg 27 - 34 pg [facility] MCHC (RBC) [Mass/Vol] 35.1 g/dL 32 - 36 g/dL [facility] MCV (RBC) [Entitic vol] 93 fL 80 - 100 fL [facility] Monocytes (Bld) [#/Vol] 0.5 10*3/uL [facility] Monocytes/100 WBC (Bld) 6.3 % [facility] Neutrophils (Bld) [#/Vol] 5.1 10*3/uL [facility] Neutrophils/100 WBC (Bld) 61.2 % [facility] Platelet mean volume (Bld) [Entitic vol] 6.7 fL Low 7 - 12 fL [facility] Platelets (Bld) [#/Vol] 228 10*3/uL [facility] RBC (Bld) [#/Vol] 3.17 10*6/uL Low [facility] WBC corrected for nucl RBC Auto (Bld) [#/Vol] 8.3 [facility] COMPREHENSIVE METABOLIC PANE Cecilio 05-15-2024 Albumin [Mass/Vol] 3.6 g/dL Normal 3.2-5.3 [facility] Comment on above: Performed By: #### C BCA, CMP, 07615-9, 7-1, FEPR, 2276-4, 2284-8, 2132-03 ####[facility] ([id number])[address], [address] [place] [address] ALP [Catalytic activity/Vol] 80 U/L Normal 39-130 [facility] [place] Comment on above: Performed By: #### C BCA, CMP, 63511-6, 2776-1, FEPR, 2276-4, 2284-8, 2132-03 ####[facility] ([id number])[address], [address] [place] [address] ALT [Catalytic activity/Vol] 30 U/L Normal 0-40 [facility] [place] Comment on above: Performed By: #### C BCA, CMP, 28060-7, 7-1, FEPR, 2276-4, 2284-8, 9 ####[facility] ([id number])[address], [address] [place] [address] Anion gap [Moles/Vol] 11 mmol/L Normal 5-15 [facility] [place] Comment on above: Performed By: #### C BCA, CMP, 19066-6, 2777-1, FEPR, 2276-4, 2284-8, 9 ####[facility] ([id number])[address], [address], [place] [address] AST [Catalytic activity/Vol] 13 U/L Normal 0-41 [facility] Comment on above: Performed By: #### C BCA, CMP, 46699-9, 7-1, FEPR, 2276-4, 2284-8, 2132-03 ####[facility] ([id number])[address], [place] [address] Bilirubin [Mass/Vol] 0.6 mg/dL Normal 0.3-1.2 [facility] Comment on above: Performed By: #### C BCA, CMP, 11960-1, 2776-1, FEPR, 2276-4, 2284-8, 2132-03 ####[facility] ([id number])[address], [place] [address] Calcium [Mass/Vol] 8.7 mg/dL Normal 8.5-10.5 [facility] Comment on above: Performed By: #### C BCA, CMP, 79802-2, 2776-1, FEPR, 2276-4, 2284-8, 2132-03 ####[facility] ([id number])[address] [address], [place] [address] Chloride [Moles/Vol] 102 mmol/L Normal 98-109 [facility] Comment on above: Performed By: #### C BCA, CMP, 66042-5, 7-1, FEPR, 2276-4, 2284-8, 2132-03 ####[facility] ([id number])[address], [address], [place] [address] CO2 [Moles/Vol] 24 mmol/L Normal 22-32 [facility] [place] Comment on above: Performed By: #### C BCA, CMP, 07079-4, 2777-1, FEPR, 2276-4, 2284-8, 2132-03 ####[facility] ([id number])[address], [address] [place] [address] Creatinine [Mass/Vol] 2.86 mg/dL High 0.60-1.30 [facility] [place] Comment on above: Result Comment: METH OD TRACEABLE TO IDMS STANDARD Performed By: #### C BCA, CMP, , 2776-, FEPR, 2276-4, 2284-8, 2132-03 ####[facility] ([id number])[address] [address] GFR/1.73 sq M.predicted among non-blacks MDRD (S/P/Bld) [Vol rate/Area] 24 mL/min/{1.73_m2} Low >59 [facility] Comment on above: Result Comment: Reported eGFR is based on the CKD-EPI 2020 equation that does not use a race coefficient. Performed By: #### C BCA, CMP, , 2776-, FEPR, 2276-4, 2284-8, 2132-03 ####[facility] ([id number])[address] [address] [place] [address] Glucose [Mass/Vol] 156 mg/dL High 65-99 [facility] Comment on above: Performed By: #### C BCA, CMP, , 2776-07, FEPR, 2276-4, 2284-8, 2132-03 ####[facility] ([id number])[address] [address], [place] [address] Potassium [Moles/Vol] 4.4 mmol/L Normal 3.5-5.0 [facility] Comment on above: Performed By: #### C BCA, CMP, 95012-8, 2776-, FEPR, 2276-4, 2284-8, 2132-03 ####[facility] ([id number])[address] [place] [address] Protein [Mass/Vol] 6.0 g/dL Normal 6.0-8.0 [facility] Comment on above: Performed By: #### C BCA, CMP, 38860-9, 2777-1, FEPR, 2276-4, 2284-8, 2132-03 ####[facility] ([id number])[address] [place] [address] Sodium [Moles/Vol] 137 mmol/L Normal 134-146 [facility] Comment on above: Performed By: #### C BCA, CMP, 11132-0, 2777-1, FEPR, 2276-4, 2284-8, 2132-03 ####[facility] ([id number])[address], [place] [address] Urea nitrogen [Mass/Vol] 36 mg/dL High 5-27 [facility] Comment on above: Performed By: #### C BCA, CMP, 40243-1, 2777-1, FEPR, 2276-4, 2284-8, 2132-03 ####[facility] ([id number])[address], [place] [address] Cobalamin (Vitamin B12) [Mas s/Vol]on 05-15-2024 [facility] Comprehensive metabolic pane cecilio 05-15-2024 Albumin [Mass/Vol] 3.6 g/dL 3.2 - 5.3 g/dL [facility] ALP [Catalytic activity/Vol] 80 U/L 39 - 130 U/L [facility] ALT No additional P-5'-P [Catalytic activity/Vol] 30 U/L 0 - 40 U/L [facility] Anion gap [Moles/Vol] 11 mmol/L 5 - 15 mmol/L [facility] AST [Catalytic activity/Vol] 13 U/L 0 - 41 U/L [facility] Bilirubin [Mass/Vol] 0.6 mg/dL 0.3 - 1.2 mg/dL [facility] Calcium [Mass/Vol] 8.7 mg/dL 8.5 - 10. 5 mg/dL [facility] Chloride [Moles/Vol] 102 mmol/L 98 - 109 mmol/L [facility] CO2 [Moles/Vol] 24 mmol/L 22 - 32 mmol/L [facility] Creatinine [Mass/Vol] 2.86 mg/dL High 0.60 - 1.30 mg/dL [facility] eGFR (CKD-EPI)non-race dependent 24 Low - PINF [facility] Glucose [Mass/Vol] 156 mg/dL High 65 - 99 mg/dL [facility] Interpretation and review of laboratory results Abnormal [facility] Potassium [Moles/Vol] 4.4 mmol/L 3.5 - 5.0 mmol/L [facility] Protein [Mass/Vol] 6 g/dL 6.0 - 8.0 g/dL [facility] Sodium [Moles/Vol] 137 mmol/L 134 - 146 mmol/L [facility] Urea nitrogen [Mass/Vol] 36 mg/dL High 5 - 27 mg/dL [facility] FERRITINon 05-15-2024 Ferritin [Mass/Vol] 652 ng/mL High 24-336 [facility] Comment on above: Performed By: #### C BCA, CMP, 29364-8, 2777-1, FEPR, 2276-4, 2284-8, 2132-9 ####[facility] ([id number])[address] [place] [address], [address] [place] [address] Ferritinon 05-15-2024 Ferritin [Mass/Vol] 652 ng/mL High 24 - 336 ng/mL [facility] Ferritin [Mass/Vol]on 2023 Interpretation and review of laboratory results Abnormal [facility] Folateon 05-15-2024 Folate [Mass/Vol] 6.7 ng/mL 5.8 - PINF ng/mL [facility] Folate [Mass/Vol]on 05-15-20 24 [facility] FOLIC ACID 6.7 ng/mL Normal >5.8 [facility] Comment on above: Result Comment: NEW REFERENCE RANGE Performed By: #### C DOUGLAS, CMP, 27532-6, 2776-1, FEPR, 2276-4, 2284-8, 9 ####[facility] ([id number])[address] [facility], [address] [place] [address] Glucose Glucometer (BldC) [M ass/Vol]on 05-15-2024 Glucose [Mass/Vol] 135 mg/dL High 65-99 [facility] Glucose [Mass/Vol] 189 mg/dL High 65 - 99 mg/dL [facility] Interpretation and review of laboratory results Abnormal [facility] Glucose [Mass/Vol] 189 mg/dL High 65-99 [facility] Glucose [Mass/Vol] 150 mg/dL High 65 - 99 mg/dL [facility] Interpretation and review of laboratory results Abnormal [facility] Glucose [Mass/Vol] 150 mg/dL High 65-99 [facility] Glucose [Mass/Vol] 144 mg/dL High 65 - 99 mg/dL [facility] Interpretation and review of laboratory results Abnormal [facility] Glucose [Mass/Vol] 144 mg/dL High 65-99 [facility] Glucose [Mass/Vol] 142 mg/dL High 65 - 99 mg/dL [facility] Interpretation and review of laboratory results Abnormal [facility] Glucose [Mass/Vol] 142 mg/dL High 65-99 [facility] Glucose [Mass/Vol] 100 mg/dL High 65 - 99 mg/dL [facility] Interpretation and review of laboratory results Abnormal [facility] Glucose [Mass/Vol] 100 mg/dL High 65-99 [facility] Hemodialysis inpatienton [facility] IRON PROFILEon 05-15-2024 Iron [Mass/Vol] 47 ug/dL Low 50-212 [facility] Comment on above: Performed By: #### C BCA, CMP, 29927-0, 2777-1, FEPR, 2276-4, 2284-8, 2132-03 ####[facility] ([id number])[address] [place] [address] IRON BINDING 234 ug/dL Low 250-425 [facility] Comment on above: Performed By: #### C BCA, CMP, 43448-4, 7-1, FEPR, 6-4, 4-8, 2132-03 ####[facility] ([id number])[address], [address] [place] [address] IRON SATURATION 20 % SATURATION Normal 20-50 [facility] Comment on above: Performed By: #### C BCA, CMP, 89845-9, 2776-1, FEPR, 2276-4, 2283-8, 2132-03 ####[facility] ([id number])[address] [place] [address] Iron and TIBCon 05-15-2024 Interpretation and review of laboratory results Abnormal [facility] Iron [Mass/Vol] 47 ug/dL Low 50 - 212 ug/dL [facility] Iron binding capacity [Mass/Vol] 234 ug/dL Low 250 - 425 ug/dL [facility] Iron saturation [Mass fraction] [address] [facility] MAGNESIUMon 05-15-2024 Magnesium [Mass/Vol] 2.2 mg/dL Normal 1.8-2.6 [facility] Comment on above: Performed By: #### C BCA, CMP, 43513-1, 2776-1, FEPR, 2276-4, 4-8, 2132-03 ####[facility] ([id number])[address], [address] [place] [address] Magnesiumon 05-15-2024 Magnesium [Mass/Vol] 2.2 mg/dL 1.8 - 2.6 mg/dL [facility] No Panel Informationon 05-15 [facility] PHOSPHORUSon 10-22-2024 Phosphate [Mass/Vol] 4.0 mg/dL Normal 2.4-4.9 [facility] Comment on above: Performed By: #### C BCA, CMP, 00841-5, 2777-1, FEPR, 2276-4, 2284-8, 2132-03 ####[facility] ([id number])[address], [place] [address] Phosphoruson 05-15-2024 Phosphate [Mass/Vol] 4 mg/dL 2.4 - 4.9 mg/dL [facility] VITAMIN B12on 05-15-2024 Cobalamin (Vitamin B12) [Mass/Vol] 314 pg/mL Normal 180-914 [facility] Comment on above: Performed By: #### C BCA, CMP, 14800-6, 7-1, FEPR, 6-4, 2283-8, 2132-03 ####[facility] ([id number])[address], [address], [place] [address] Vitamin B12on 05-15-2024 Cobalamin (Vitamin B12) [Mass/Vol] 314 pg/mL 180 - 914 pg/mL [facility] CBC AND AUTO DIFFon 05-14-20 ABSOLUTE BASOPHIL 0.1 X10E9/L Normal 0.0-0.2 [facility] Comment on above: Performed By: #### P INR, 17277-2, CMP, CBC, HA1C #### [facility] ([id number]) [address], [address] [place] [address] ABSOLUTE NEUTROPHIL 4.8 X10E9/L Normal 1.5-6.6 [facility] Comment on above: Performed By: #### P INR, 42627-2, CMP, CBC, HA1C #### [facility] ([id number]) [address], [address] [place] [address] Basophils/100 WBC (Bld) 1.0 % Normal [facility] Comment on above: Performed By: #### P INR, 10286-6, CMP, CBC, HA1C #### [facility] ([id number]) [address] [address] [place] [address] Eosinophils (Bld) [#/Vol] 0.6 10*3/uL High 0.0-0.4 [facility] Comment on above: Performed By: #### P INR, 80218-7, CMP, CBC, HA1C #### [facility] ([id number]) [address] [address] Eosinophils/100 WBC (Bld) 7.3 % Normal [facility] Comment on above: Performed By: #### P INR, 72592-9, CMP, CBC, HA1C #### [facility] ([id number]) [address] [address] Erythrocyte distribution width (RBC) [Ratio] 13.6 % Normal 11.5-15.0 [facility] Comment on above: Performed By: #### P INR, 33106-3, CMP, CBC, HA1C #### [facility] ([id number]) [address] [address] Hematocrit (Bld) [Volume fraction] 29.0 % Low 39-49 [facility] Comment on above: Performed By: #### P INR, 53719-0, CMP, CBC, HA1C #### [facility] ([id number]) [address] [address] Hemoglobin (Bld) [Mass/Vol] 10.2 g/dL Low 13.0-17.0 [facility] Comment on above: Performed By: #### P INR, 15661-0, CMP, CBC, HA1C #### [facility] ([id number]) [address] [address] Lymphocytes (Bld) [#/Vol] 2.1 10*3/uL Normal 1.0-3.5 [facility] Comment on above: Performed By: #### P INR, 71778-5, CMP, CBC, HA1C #### [facility] ([id number]) [address] [place] [address] Lymphocytes/100 WBC (Bld) 25.7 % Normal [facility] Comment on above: Performed By: #### P INR, 82079-8, CMP, CBC, HA1C #### [facility] ([id number]) [address] [place] [address] MCH (RBC) [Entitic mass] 32.6 pg Normal 27-34 [facility] Comment on above: Performed By: #### P INR, 04047-0, CMP, CBC, HA1C #### [facility] ([id number]) [address] [place] [address] MCHC (RBC) [Mass/Vol] 35.1 g/dL Normal 32-36 [facility] Comment on above: Performed By: #### P INR, 21057-8, CMP, CBC, HA1C #### [facility] ([id number]) [address] [place] [address] MCV (RBC) [Entitic vol] 93 fL Normal 80-100 [facility] Comment on above: Performed By: #### P INR, 60111-2, CMP, CBC, HA1C #### [facility] ([id number]) [address] [place] [address] Monocytes (Bld) [#/Vol] 0.5 10*3/uL Normal 0-0.9 [facility] Comment on above: Performed By: #### P INR, 76271-9, CMP, CBC, HA1C #### [facility] ([id number]) [address] [place] [address] Monocytes/100 WBC (Bld) 5.7 % Normal [facility] Comment on above: Performed By: #### P INR, 32874-8, CMP, CBC, HA1C #### [facility] ([id number]) [address] [address] Neutrophils/100 WBC (Bld) 60.3 % Normal [facility] Comment on above: Performed By: #### P INR, 72177-4, CMP, CBC, HA1C #### [facility] ([id number]) [address] [address] Platelet mean volume (Bld) [Entitic vol] 6.9 fL Low 7-12 [facility] Comment on above: Performed By: #### P INR, 30115-0, CMP, CBC, HA1C #### [facility] ([id number]) [address] [address] Platelets (Bld) [#/Vol] 200 10*3/uL Normal 150-450 [facility] Comment on above: Performed By: #### P INR, 41387-5, CMP, CBC, HA1C #### [facility] ([id number]) [address] [address] RBC COUNT 3.12 X10E12/L Low 4.10-5.70 [facility] Comment on above: Performed By: #### P INR, 93522-5, CMP, CBC, HA1C #### [facility] ([id number]) [address] [address] WBC (Bld) [#/Vol] 8.0 10*3/uL Normal 4.0-11.0 [facility] Comment on above: Performed By: #### P INR, 62485-6, CMP, CBC, HA1C #### [facility] ([id number]) [address] [address] CBC auto differentialon 10-2 Basophils (Bld) [#/Vol] 0.1 10*3/uL [facility] Basophils/100 WBC (Bld) 1 % [facility] Eosinophils (Bld) [#/Vol] 0.6 10*3/uL High [facility] Eosinophils/100 WBC (Bld) 7.3 % [facility] Erythrocyte distribution width (RBC) [Ratio] 13.6 % 11.5 - 15.0 % [facility] Hematocrit (Bld) [Volume fraction] 29 % Low 39 - 49 % [facility] Hemoglobin (Bld) [Mass/Vol] 10.2 g/dL Low 13.0 - 17.0 g/dL [facility] Interpretation and review of laboratory results Abnormal [facility] Lymphocytes (Bld) [#/Vol] 2.1 10*3/uL [facility] Lymphocytes/100 WBC (Bld) 25.7 % [facility] MCH (RBC) [Entitic mass] 32.6 pg 27 - 34 pg [facility] MCHC (RBC) [Mass/Vol] 35.1 g/dL 32 - 36 g/dL [facility] MCV (RBC) [Entitic vol] 93 fL 80 - 100 fL [facility] Monocytes (Bld) [#/Vol] 0.5 10*3/uL [facility] Monocytes/100 WBC (Bld) 5.7 % [facility] Neutrophils (Bld) [#/Vol] 4.8 10*3/uL [facility] Neutrophils/100 WBC (Bld) 60.3 % [facility] Platelet mean volume (Bld) [Entitic vol] 6.9 fL Low 7 - 12 fL [facility] Platelets (Bld) [#/Vol] 200 10*3/uL [facility] RBC (Bld) [#/Vol] 3.12 10*6/uL Low [facility] WBC corrected for nucl RBC Auto (Bld) [#/Vol] 8 [facility] COMPREHENSIVE METABOLIC PANE Cecilio 05-14-2024 Albumin [Mass/Vol] 3.6 g/dL Normal 3.2-5.3 [facility] Comment on above: Performed By: #### P INR, 79044-3, CMP, CBC, HA1C #### [facility] ([id number]) [address] [place] [address] ALP [Catalytic activity/Vol] 76 U/L Normal 39-130 [facility] Comment on above: Performed By: #### P INR, 64331-0, CMP, CBC, HA1C #### [facility] ([id number]) [address], [address] [place] [address] ALT [Catalytic activity/Vol] 40 U/L Normal 0-40 [facility] Comment on above: Performed By: #### P INR, 11004-7, CMP, CBC, HA1C #### [facility] ([id number]) [address] [place] [address] Anion gap [Moles/Vol] 12 mmol/L Normal 5-15 [facility] Comment on above: Performed By: #### P INR, 26022-7, CMP, CBC, HA1C #### [facility] ([id number]) [address] [place] [address] AST [Catalytic activity/Vol] 16 U/L Normal 0-41 [facility] Comment on above: Performed By: #### P INR, 97950-7, CMP, CBC, HA1C #### [facility] ([id number]) [address] [place] [address] Bilirubin [Mass/Vol] 0.6 mg/dL Normal 0.3-1.2 [facility] Comment on above: Performed By: #### P INR, 95902-9, CMP, CBC, HA1C #### [facility] ([id number]) [address] [place] [address] Calcium [Mass/Vol] 8.5 mg/dL Normal 8.5-10.5 [facility] Comment on above: Performed By: #### P INR, 72266-8, CMP, CBC, HA1C #### [facility] ([id number]) [address] [place] [address] Chloride [Moles/Vol] 103 mmol/L Normal 98-109 [facility] [place] Comment on above: Performed By: #### P INR, 88178-4, CMP, CBC, HA1C #### [facility] ([id number]) [address], [address] [place] [address] CO2 [Moles/Vol] 23 mmol/L Normal 22-32 [facility] [place] Comment on above: Performed By: #### P INR, 55100-1, CMP, CBC, HA1C #### [facility] ([id number]) [address], [facility] [address] [place] [address] Creatinine [Mass/Vol] 2.69 mg/dL High 0.60-1.30 [facility] [place] Comment on above: Result Comment: METH OD TRACEABLE TO IDMS STANDARD Performed By: #### P INR, 98751-1, CMP, CBC, HA1C #### [facility] ([id number]) [address], [address] [address] GFR/1.73 sq M.predicted among non-blacks MDRD (S/P/Bld) [Vol rate/Area] 25 mL/min/{1.73_m2} Low >59 [facility] [place] Comment on above: Result Comment: Reported eGFR is based on the CKD-EPI 2020 equation that does not use a race coefficient. Performed By: #### P INR, 63499-7, CMP, CBC, HA1C #### [facility] ([id number]) [address], [address] [place] [address] Glucose [Mass/Vol] 161 mg/dL High 65-99 [facility] Comment on above: Performed By: #### P INR, 98282-5, CMP, CBC, HA1C #### [facility] [facility] ([id number]) [address], [address] [place] [address] Potassium [Moles/Vol] 4.1 mmol/L Normal 3.5-5.0 [facility] [place] Comment on above: Performed By: #### P INR, 80445-3, CMP, CBC, HA1C #### [facility] ([id number]) [address], [address] [place] [address] Protein [Mass/Vol] 5.9 g/dL Low 6.0-8.0 [facility] Comment on above: Performed By: #### P INR, 74072-2, CMP, CBC, HA1C #### [facility] ([id number]) [address], [address] [place] [address] Sodium [Moles/Vol] 138 mmol/L Normal 134-146 [facility] Comment on above: Performed By: #### P INR, 08470-6, CMP, CBC, HA1C #### [facility] ([id number]) [address], [address] [place] [address] Urea nitrogen [Mass/Vol] 25 mg/dL Normal 5-27 [facility] [place] Comment on above: Performed By: #### P INR, 43739-8, CMP, CBC, HA1C #### [facility] ([id number]) [address], [address] [place] [address] Comprehensive metabolic pane cecilio 05-14-2024 Albumin [Mass/Vol] 3.6 g/dL 3.2 - 5.3 g/dL [facility] ALP [Catalytic activity/Vol] 76 U/L 39 - 130 U/L [facility] ALT No additional P-5'-P [Catalytic activity/Vol] 40 U/L 0 - 40 U/L [facility] Anion gap [Moles/Vol] 12 mmol/L 5 - 15 mmol/L [facility] AST [Catalytic activity/Vol] 16 U/L 0 - 41 U/L [facility] Bilirubin [Mass/Vol] 0.6 mg/dL 0.3 - 1.2 mg/dL [facility] Calcium [Mass/Vol] 8.5 mg/dL 8.5 - 10. 5 mg/dL [facility] Chloride [Moles/Vol] 103 mmol/L 98 - 109 mmol/L [facility] CO2 [Moles/Vol] 23 mmol/L 22 - 32 mmol/L [facility] Creatinine [Mass/Vol] 2.69 mg/dL High 0.60 - 1.30 mg/dL [facility] eGFR (CKD-EPI)non-race dependent 25 Low - PINF [facility] Glucose [Mass/Vol] 161 mg/dL High 65 - 99 mg/dL [facility] Interpretation and review of laboratory results Abnormal [facility] Potassium [Moles/Vol] 4.1 mmol/L 3.5 - 5.0 mmol/L [facility] Protein [Mass/Vol] 5.9 g/dL Low 6.0 - 8.0 g/dL [facility] Sodium [Moles/Vol] 138 mmol/L 134 - 146 mmol/L [facility] Urea nitrogen [Mass/Vol] 25 mg/dL 5 - 27 mg/dL [facility] Glucose Glucometer (BldC) [M ass/Vol]on 05-14-2024 Glucose [Mass/Vol] 197 mg/dL High 65 - 99 mg/dL [facility] Interpretation and review of laboratory results Abnormal [facility] Glucose [Mass/Vol] 197 mg/dL High 65-99 [facility] Glucose [Mass/Vol] 127 mg/dL High 65 - 99 mg/dL [facility] Interpretation and review of laboratory results Abnormal [facility] Glucose [Mass/Vol] 127 mg/dL High 65-99 [facility] Glucose [Mass/Vol] 167 mg/dL High 65 - 99 mg/dL [facility] Interpretation and review of laboratory results Abnormal [facility] Glucose [Mass/Vol] 167 mg/dL High 65-99 [facility] Glucose [Mass/Vol] 148 mg/dL High 65 - 99 mg/dL [facility] Interpretation and review of laboratory results Abnormal [facility] Glucose [Mass/Vol] 148 mg/dL High 65-99 [facility] Glucose [Mass/Vol] 176 mg/dL High 65 - 99 mg/dL [facility] Interpretation and review of laboratory results Abnormal [facility] Glucose [Mass/Vol] 176 mg/dL High 65-99 [facility] MAGNESIUMon 05-14-2024 Magnesium [Mass/Vol] 2.2 mg/dL Normal 1.8-2.6 [facility] [place] Comment on above: Performed By: #### P INR, 73147-5, CMP, CBC, HA1C #### [facility] ([id number]) [address], [address] [place] [address] Magnesiumon 05-14-2024 Magnesium [Mass/Vol] 2.2 mg/dL 1.8 - 2.6 mg/dL [facility] No Panel Informationon 05-14 [facility] PHOSPHORUSon 05-14-2024 Phosphate [Mass/Vol] 3.7 mg/dL Normal 2.4-4.9 [facility] [place] Comment on above: Performed By: #### P INR, 52431-8, CMP, CBC, HA1C #### [facility] ([id number]) [address], [address] [place] [address] Phosphoruson 05-14-2024 Phosphate [Mass/Vol] 3.7 mg/dL 2.4 - 4.9 mg/dL [facility] Amylase, fluidon 05-13-2024 Amylase (Body fld) [Catalytic activity/Vol] U/L U/L [facility] Specimen type Nom (Spec) FLUID [facility] CBC AND AUTO DIFFon 05-13-20 24 ABSOLUTE BASOPHIL 0.1 X10E9/L Normal 0.0-0.2 [facility] Comment on above: Performed By: #### P INR, 80377-1, CMP, CBC, HA1C #### [facility] ([id number]) [address], [address] [place] [address] ABSOLUTE NEUTROPHIL 6.2 X10E9/L Normal 1.5-6.6 [facility] Comment on above: Performed By: #### P INR, 51004-9, CMP, CBC, HA1C #### [facility] ([id number]) [address], [address] [place] [address] Basophils/100 WBC (Bld) 0.9 % Normal [facility] [place] Comment on above: Performed By: #### P INR, 36776-3, CMP, CBC, HA1C #### [facility] ([id number]) [address], [address] [place] [address] Eosinophils (Bld) [#/Vol] 0.5 10*3/uL High 0.0-0.4 [facility] [place] Comment on above: Performed By: #### P INR, 56125-0, CMP, CBC, HA1C #### [facility] ([id number]) [address], [address] [place] [address] Eosinophils/100 WBC (Bld) 5.7 % Normal [facility] [place] Comment on above: Performed By: #### P INR, 61834-1, CMP, CBC, HA1C #### [facility] ([id number]) [address], [address] [place] [address] Erythrocyte distribution width (RBC) [Ratio] 13.2 % Normal 11.5-15.0 [facility] [place] Comment on above: Performed By: #### P INR, 09729-9, CMP, CBC, HA1C #### [facility] ([id number]) [address], [address] [place] [address] Hematocrit (Bld) [Volume fraction] 30.4 % Low 39-49 [facility] [place] Comment on above: Performed By: #### P INR, 98730-7, CMP, CBC, HA1C #### [facility] ([id number]) [address], [address] [place] [address] Hemoglobin (Bld) [Mass/Vol] 10.7 g/dL Low 13.0-17.0 [facility] [place] Comment on above: Performed By: #### P INR, 99377-3, CMP, CBC, HA1C #### [facility] ([id number]) [address], [facility] [address] [place] [address] Lymphocytes (Bld) [#/Vol] 1.8 10*3/uL Normal 1.0-3.5 [facility] [place] Comment on above: Performed By: #### P INR, 62609-3, CMP, CBC, HA1C #### [facility] ([id number]) [address] [address] [address] Lymphocytes/100 WBC (Bld) 19.8 % Normal [facility] [place] Comment on above: Performed By: #### P INR, 12526-8, CMP, CBC, HA1C #### [facility] ([id number]) [address] [address] [place] [address] MCH (RBC) [Entitic mass] 32.8 pg Normal 27-34 [facility] [place] Comment on above: Performed By: #### P INR, 26801-9, CMP, CBC, HA1C #### [facility] ([id number]) [address] [address] [place] [address] MCHC (RBC) [Mass/Vol] 35.2 g/dL Normal 32-36 [facility] [place] Comment on above: Performed By: #### P INR, 68488-6, CMP, CBC, HA1C #### [facility] ([id number]) [address] [address] [place] [address] MCV (RBC) [Entitic vol] 93 fL Normal 80-100 [facility] [place] Comment on above: Performed By: #### P INR, 31674-4, CMP, CBC, HA1C #### [facility] ([id number]) [address] [address] [place] [address] Monocytes (Bld) [#/Vol] 0.5 10*3/uL Normal 0-0.9 [facility] [place] Comment on above: Performed By: #### P INR, 89192-4, CMP, CBC, HA1C #### [facility] ([id number]) [address], [facility] [address] [place] [address] Monocytes/100 WBC (Bld) 5.7 % Normal [facility] [place] Comment on above: Performed By: #### P INR, 63220-3, CMP, CBC, HA1C #### [facility] ([id number]) [address] [address] [address] Neutrophils/100 WBC (Bld) 67.9 % Normal [facility] [place] Comment on above: Performed By: #### P INR, 42624-9, CMP, CBC, HA1C #### [facility] ([id number]) [address] [address] [place] [address] Platelet mean volume (Bld) [Entitic vol] 7.5 fL Normal 7-12 [facility] [place] Comment on above: Performed By: #### P INR, 86103-6, CMP, CBC, HA1C #### [facility] ([id number]) [address] [address] [place] [address] Platelets (Bld) [#/Vol] 192 10*3/uL Normal 150-450 [facility] [place] Comment on above: Performed By: #### P INR, 57854-0, CMP, CBC, HA1C #### [facility] ([id number]) [address] [address] [place] [address] RBC COUNT 3.26 X10E12/L Low 4.10-5.70 [facility] [place] Comment on above: Performed By: #### P INR, 20367-6, CMP, CBC, HA1C #### [facility] ([id number]) [address], [address] [place] [address] WBC (Bld) [#/Vol] 9.2 10*3/uL Normal 4.0-11.0 [facility] Comment on above: Performed By: #### P INR, 50273-2, CMP, CBC, HA1C #### [facility] ([id number]) [address], [address] [place] [address] CBC auto differentialon 04-25 Basophils (Bld) [#/Vol] 0.1 10*3/uL [facility] Basophils/100 WBC (Bld) 0.9 % [facility] Eosinophils (Bld) [#/Vol] 0.5 10*3/uL High [facility] Eosinophils/100 WBC (Bld) 5.7 % [facility] Erythrocyte distribution width (RBC) [Ratio] 13.2 % 11.5 - 15.0 % [facility] Hematocrit (Bld) [Volume fraction] 30.4 % Low 39 - 49 % [facility] Hemoglobin (Bld) [Mass/Vol] 10.7 g/dL Low 13.0 - 17.0 g/dL [facility] Interpretation and review of laboratory results Abnormal [facility] Lymphocytes (Bld) [#/Vol] 1.8 10*3/uL [facility] Lymphocytes/100 WBC (Bld) 19.8 % [facility] MCH (RBC) [Entitic mass] 32.8 pg 27 - 34 pg [facility] MCHC (RBC) [Mass/Vol] 35.2 g/dL 32 - 36 g/dL [facility] MCV (RBC) [Entitic vol] 93 fL 80 - 100 fL [facility] Monocytes (Bld) [#/Vol] 0.5 10*3/uL [facility] Monocytes/100 WBC (Bld) 5.7 % [facility] Neutrophils (Bld) [#/Vol] 6.2 10*3/uL [facility] Neutrophils/100 WBC (Bld) 67.9 % [facility] Platelet mean volume (Bld) [Entitic vol] 7.5 fL 7 - 12 fL [facility] Platelets (Bld) [#/Vol] 192 10*3/uL [facility] RBC (Bld) [#/Vol] 3.26 10*6/uL Low [facility] WBC corrected for nucl RBC Auto (Bld) [#/Vol] 9.2 [facility] COMPREHENSIVE METABOLIC PANE Cecilio 05-13-2024 Albumin [Mass/Vol] 3.8 g/dL Normal 3.2-5.3 [facility] Comment on above: Performed By: #### P INR, 43921-2, CMP, CBC, HA1C #### [facility] ([id number]) [address], [address] [place] [address] ALP [Catalytic activity/Vol] 82 U/L Normal 39-130 [facility] [place] Comment on above: Performed By: #### P INR, 80118-5, CMP, CBC, HA1C #### [facility] ([id number]) [address] [place] [address] ALT [Catalytic activity/Vol] 59 U/L High 0-40 [facility] [place] Comment on above: Performed By: #### P INR, 98123-7, CMP, CBC, HA1C #### [facility] ([id number]) [address], [address] [place] [address] Anion gap [Moles/Vol] 10 mmol/L Normal 5-15 [facility] [place] Comment on above: Performed By: #### P INR, 60873-5, CMP, CBC, HA1C #### [facility] ([id number]) [address], [address] [place] [address] AST [Catalytic activity/Vol] 22 U/L Normal 0-41 [facility] [place] Comment on above: Performed By: #### P INR, 93035-1, CMP, CBC, HA1C #### [facility] ([id number]) [address] [place] [address] Bilirubin [Mass/Vol] 0.7 mg/dL Normal 0.3-1.2 [facility] [place] Comment on above: Performed By: #### P INR, 47803-1, CMP, CBC, HA1C #### [facility] ([id number]) [address], [address] [place] [address] Calcium [Mass/Vol] 8.9 mg/dL Normal 8.5-10.5 [facility] Comment on above: Performed By: #### P INR, 88535-8, CMP, CBC, HA1C #### [facility] ([id number]) [address], [address] [place] [address] Chloride [Moles/Vol] 100 mmol/L Normal 98-109 [facility] [place] Comment on above: Performed By: #### P INR, 78409-3, CMP, CBC, HA1C #### [facility] ([id number]) [address], [address] [place] [address] CO2 [Moles/Vol] 26 mmol/L Normal 22-32 [facility] [place] Comment on above: Performed By: #### P INR, 75155-5, CMP, CBC, HA1C #### [facility] ([id number]) [address] [place] [address] Creatinine [Mass/Vol] 2.46 mg/dL High 0.60-1.30 [facility] [place] Comment on above: Result Comment: METH OD TRACEABLE TO IDMS STANDARD Performed By: #### P INR, 46431-5, CMP, CBC, HA1C #### [facility] ([id number]) [address] [place] [address] GFR/1.73 sq M.predicted among non-blacks MDRD (S/P/Bld) [Vol rate/Area] 28 mL/min/{1.73_m2} Low >59 [facility] [place] Comment on above: Result Comment: Reported eGFR is based on the CKD-EPI 2020 equation that does not use a race coefficient. Performed By: #### P INR, 74468-0, CMP, CBC, HA1C #### [facility] ([id number]) [address], [address] [place] [address] Glucose [Mass/Vol] 203 mg/dL High 65-99 [facility] Comment on above: Performed By: #### P INR, 41343-5, CMP, CBC, HA1C #### [facility] ([id number]) [address] [address] [place] [address] Potassium [Moles/Vol] 3.7 mmol/L Normal 3.5-5.0 [facility] [place] Comment on above: Performed By: #### P INR, 74453-3, CMP, CBC, HA1C #### [facility] ([id number]) [address] [place] [address] Protein [Mass/Vol] 6.1 g/dL Normal 6.0-8.0 [facility] Comment on above: Performed By: #### P INR, 31244-8, CMP, CBC, HA1C #### [facility] ([id number]) [address] [address] [place] [address] Sodium [Moles/Vol] 136 mmol/L Normal 134-146 [facility] Comment on above: Performed By: #### P INR, 91139-2, CMP, CBC, HA1C #### [facility] ([id number]) [address] [address] [place] [address] Urea nitrogen [Mass/Vol] 20 mg/dL Normal 5-27 [facility] [place] Comment on above: Performed By: #### P INR, 64184-3, CMP, CBC, HA1C #### [facility] ([id number]) [address], [facility] [address] [place] [address] Comprehensive metabolic pane cecilio 05-13-2024 Albumin [Mass/Vol] 3.8 g/dL 3.2 - 5.3 g/dL [facility] ALP [Catalytic activity/Vol] 82 U/L 39 - 130 U/L [facility] ALT No additional P-5'-P [Catalytic activity/Vol] 59 U/L High 0 - 40 U/L [facility] Anion gap [Moles/Vol] 10 mmol/L 5 - 15 mmol/L [facility] AST [Catalytic activity/Vol] 22 U/L 0 - 41 U/L [facility] Bilirubin [Mass/Vol] 0.7 mg/dL 0.3 - 1.2 mg/dL [facility] Calcium [Mass/Vol] 8.9 mg/dL 8.5 - 10. 5 mg/dL [facility] Chloride [Moles/Vol] 100 mmol/L 98 - 109 mmol/L [facility] CO2 [Moles/Vol] 26 mmol/L 22 - 32 mmol/L [facility] Creatinine [Mass/Vol] 2.46 mg/dL High 0.60 - 1.30 mg/dL [facility] eGFR (CKD-EPI)non-race dependent 28 Low - PINF [facility] Glucose [Mass/Vol] 203 mg/dL High 65 - 99 mg/dL [facility] Potassium [Moles/Vol] 3.7 mmol/L 3.5 - 5.0 mmol/L [facility] Protein [Mass/Vol] 6.1 g/dL 6.0 - 8.0 g/dL [facility] Sodium [Moles/Vol] 136 mmol/L 134 - 146 mmol/L [facility] Urea nitrogen [Mass/Vol] 20 mg/dL 5 - 27 mg/dL [facility] FLUID AMYLASEon 05-13-2024 ARIELA SPECIMEN TYPE FLUID Normal [facility] Comment on above: Result Comment: BIBI LIU Performed By: #### P INR, 85877-4, CMP, CBC, HA1C #### [facility] ([id number]) [address] [place] [address] FLUID AMYLASE <10 Normal [facility] Comment on above: Result Comment: The reference interval and other method performance specifications are unavailable for this body fluid. Comparison of this result to serum or plasma is recommended. Performed By: #### P INR, 90363-7, CMP, CBC, HA1C #### [facility] ([id number]) [address] [facility] [place] [address] Glucose Glucometer (BldC) [M ass/Vol]on 05-13-2024 Glucose [Mass/Vol] 126 mg/dL High 65 - 99 mg/dL [facility] Interpretation and review of laboratory results Abnormal [facility] Glucose [Mass/Vol] 126 mg/dL High 65-99 [facility] Glucose [Mass/Vol] 114 mg/dL High 65 - 99 mg/dL [facility] Interpretation and review of laboratory results Abnormal [facility] Glucose [Mass/Vol] 114 mg/dL High 65-99 [facility] Glucose [Mass/Vol] 192 mg/dL High 65 - 99 mg/dL [facility] Interpretation and review of laboratory results Abnormal [facility] Glucose [Mass/Vol] 192 mg/dL High 65-99 [facility] Glucose [Mass/Vol] 159 mg/dL High 65 - 99 mg/dL [facility] Interpretation and review of laboratory results Abnormal [facility] Glucose [Mass/Vol] 159 mg/dL High 65-99 [facility] Glucose [Mass/Vol] 133 mg/dL High 65 - 99 mg/dL [facility] Interpretation and review of laboratory results Abnormal [facility] Glucose [Mass/Vol] 133 mg/dL High 65-99 [facility] Glucose [Mass/Vol] 187 mg/dL High 65 - 99 mg/dL [facility] Interpretation and review of laboratory results Abnormal [facility] Glucose [Mass/Vol] 187 mg/dL High 65-99 [facility] MAGNESIUMon 05-13-2024 Magnesium [Mass/Vol] 2.2 mg/dL Normal 1.8-2.6 [facility] Comment on above: Performed By: #### P INR, 37783-3, CMP, CBC, HA1C #### [facility] ([id number]) [address] [place] [address] Magnesiumon 05-13-2024 Magnesium [Mass/Vol] 2.2 mg/dL 1.8 - 2.6 mg/dL [facility] No Panel Informationon 05-13 [facility] Interpretation and review of laboratory results Abnormal [facility] PHOSPHORUSon 05-13-2024 Phosphate [Mass/Vol] 4.0 mg/dL Normal 2.4-4.9 [facility] Comment on above: Performed By: #### P INR, 69490-3, CMP, CBC, HA1C #### [facility] ([id number]) [address] [place] [address] Phosphate [Mass/Vol] 2.1 mg/dL Low 2.4-4.9 [facility] Comment on above: Performed By: #### P INR, 50446-5, CMP, CBC, HA1C #### [facility] ([id number]) [address] [place] [address] POTASSIUMon 05-13-2024 Potassium [Moles/Vol] 3.8 mmol/L Normal 3.5-5.0 [facility] Comment on above: Performed By: #### P INR, 13781-6, CMP, CBC, HA1C #### [facility] ([id number]) [address] [place] [address] Potassium [Moles/Vol] 3.6 mmol/L Normal 3.5-5.0 [facility] Comment on above: Performed By: #### P INR, 16623-3, CMP, CBC, HA1C #### [facility] ([id number]) [address] [place] [address] Phosphoruson 05-13-2024 Phosphate [Mass/Vol] 4 mg/dL 2.4 - 4.9 mg/dL [facility] Phosphate [Mass/Vol] 2.1 mg/dL Low 2.4 - 4.9 mg/dL [facility] Potassiumon 05-13-2024 Potassium [Moles/Vol] 3.8 mmol/L 3.5 - 5.0 mmol/L [facility] Potassium [Moles/Vol] 3.6 mmol/L 3.5 - 5.0 mmol/L [facility] Potassium [Moles/Vol]on 04-25 [facility] CBC AND AUTO DIFFon 05-12-20 ABSOLUTE BASOPHIL 0.2 X10E9/L Normal 0.0-0.2 [facility] Comment on above: Performed By: #### Kathleen COLE CMP, , 2776-07 ####[facility] ([id number])[address] [place] [address] ABSOLUTE NEUTROPHIL 5.9 X10E9/L Normal 1.5-6.6 [facility] Comment on above: Performed By: #### Kathleen COLE CMP, , 2776-07 ####[facility] ([id number])[address] [address] [place] [address] Basophils/100 WBC (Bld) 1.8 % Normal [facility] Comment on above: Performed By: #### Kathleen COLE CMP, , 2776-07 ####[facility] ([id number])[address] [address] [address] [place] [address] Eosinophils (Bld) [#/Vol] 0.4 10*3/uL Normal 0.0-0.4 [facility] Comment on above: Performed By: #### Kathleen COLE CMP, , 2776-07 ####[facility] ([id number])[address] [place] [address] Eosinophils/100 WBC (Bld) 5.2 % Normal [facility] Comment on above: Performed By: #### C DOUGLAS, CMP, , 2776-07 ####[facility] ([id number])[address], [place] [address] Erythrocyte distribution width (RBC) [Ratio] 13.1 % Normal 11.5-15.0 [facility] Comment on above: Performed By: #### C DOUGLAS, CMP, , 2776-07 ####[facility] ([id number])[address], [place] [address] Hematocrit (Bld) [Volume fraction] 27.3 % Low 39-49 [facility] Comment on above: Performed By: #### Kathleen COLE, CMP, , 2776-07 ####[facility] ([id number])[address], [place] [address] Hemoglobin (Bld) [Mass/Vol] 9.7 g/dL Low 13.0-17.0 [facility] [place] Comment on above: Performed By: #### Kathleen COLE, CMP, , 2776-07 ####[facility] ([id number])[address] [place] [address] Lymphocytes (Bld) [#/Vol] 1.6 10*3/uL Normal 1.0-3.5 [facility] [place] Comment on above: Performed By: #### C BCA, CMP, , 2776-07 ####[facility] ([id number])[address] [address], [place] [address] Lymphocytes/100 WBC (Bld) 18.3 % Normal [facility] [place] Comment on above: Performed By: #### C BCA, CMP, , 2776-07 ####[facility] [facility] ([id number])[address], [place] [address] MCH (RBC) [Entitic mass] 33.2 pg Normal 27-34 [facility] [place] Comment on above: Performed By: #### C DOUGLAS, CMP, , 2776-07 ####[facility] ([id number])[address], [place] [address] MCHC (RBC) [Mass/Vol] 35.5 g/dL Normal 32-36 [facility] [place] Comment on above: Performed By: #### C BCA, CMP, , 2776-07 ####[facility] ([id number])[address], [address], [place] [address] MCV (RBC) [Entitic vol] 94 fL Normal 80-100 [facility] [place] Comment on above: Performed By: #### C BCA, CMP, , 2776-07 ####[facility] ([id number])[address] [place] [address] Monocytes (Bld) [#/Vol] 0.4 10*3/uL Normal 0-0.9 [facility] [place] Comment on above: Performed By: #### C BCA, CMP, , 2776-07 ####[facility] ([id number])[address], [place] [address] Monocytes/100 WBC (Bld) 4.8 % Normal [facility] [place] Comment on above: Performed By: #### C BCA, CMP, , 2776-07 ####[facility] ([id number])[address], [address], [place] [address] Neutrophils/100 WBC (Bld) 69.9 % Normal [facility] [place] Comment on above: Performed By: #### Kathleen BCA, CMP, , 2776-07 ####[facility] ([id number])[address], [address], [place] [address] Platelet mean volume (Bld) [Entitic vol] 7.0 fL Normal 7-12 [facility] [place] Comment on above: Performed By: #### Kathleen COLE CMP, , 2776-07 ####[facility] ([id number])[address], [address] [place] [address] Platelets (Bld) [#/Vol] 148 10*3/uL Low 150-450 [facility] [place] Comment on above: Performed By: #### Kathleen COLE, CMP, , 2776-07 ####[facility] ([id number])[address] [address] RBC COUNT 2.92 X10E12/L Low 4.10-5.70 [facility] [place] Comment on above: Performed By: #### Kathleen COLE CMP, , 2776-07 ####[facility] ([id number])[address] [place] [address] WBC (Bld) [#/Vol] 8.5 10*3/uL Normal 4.0-11.0 [facility] Comment on above: Performed By: #### Kathleen COLE, CMP, , 1 ####[facility] ([id number])[address] [address] CBC auto differentialon 04-24 Basophils (Bld) [#/Vol] 0.2 10*3/uL [facility] Basophils/100 WBC (Bld) 1.8 % [facility] Eosinophils (Bld) [#/Vol] 0.4 10*3/uL [facility] Eosinophils/100 WBC (Bld) 5.2 % [facility] Erythrocyte distribution width (RBC) [Ratio] 13.1 % 11.5 - 15.0 % [facility] Hematocrit (Bld) [Volume fraction] 27.3 % Low 39 - 49 % [facility] Hemoglobin (Bld) [Mass/Vol] 9.7 g/dL Low 13.0 - 17.0 g/dL [facility] Interpretation and review of laboratory results Abnormal [facility] Lymphocytes (Bld) [#/Vol] 1.6 10*3/uL [facility] Lymphocytes/100 WBC (Bld) 18.3 % [facility] MCH (RBC) [Entitic mass] 33.2 pg 27 - 34 pg [facility] MCHC (RBC) [Mass/Vol] 35.5 g/dL 32 - 36 g/dL [facility] MCV (RBC) [Entitic vol] 94 fL 80 - 100 fL [facility] Monocytes (Bld) [#/Vol] 0.4 10*3/uL [facility] Monocytes/100 WBC (Bld) 4.8 % [facility] Neutrophils (Bld) [#/Vol] 5.9 10*3/uL [facility] Neutrophils/100 WBC (Bld) 69.9 % [facility] Platelet mean volume (Bld) [Entitic vol] 7 fL 7 - 12 fL [facility] Platelets (Bld) [#/Vol] 148 10*3/uL Low [facility] RBC (Bld) [#/Vol] 2.92 10*6/uL Low [facility] WBC corrected for nucl RBC Auto (Bld) [#/Vol] 8.[address] [facility] COMPREHENSIVE METABOLIC PANE Cecilio 05-12-2024 Albumin [Mass/Vol] 3.5 g/dL Normal 3.2-5.3 [facility] Comment on above: Performed By: #### P INR, 34462-3, CMP, CBC, HA1C #### [facility] ([id number]) [address], [address] [place] [address] ALP [Catalytic activity/Vol] 78 U/L Normal 39-130 [facility] [place] Comment on above: Performed By: #### P INR, 80697-3, CMP, CBC, HA1C #### [facility] ([id number]) [address], [address] [place] [address] ALT [Catalytic activity/Vol] 84 U/L High 0-40 [facility] [place] Comment on above: Performed By: #### P INR, 63271-8, CMP, CBC, HA1C #### [facility] ([id number]) [address], [address] [place] [address] Anion gap [Moles/Vol] 10 mmol/L Normal 5-15 [facility] [place] Comment on above: Performed By: #### P INR, 05307-4, CMP, CBC, HA1C #### [facility] ([id number]) [address], [address] [place] [address] AST [Catalytic activity/Vol] 33 U/L Normal 0-41 [facility] [place] Comment on above: Performed By: #### P INR, 12265-1, CMP, CBC, HA1C #### [facility] ([id number]) [address], [address] [place] [address] Bilirubin [Mass/Vol] 0.7 mg/dL Normal 0.3-1.2 [facility] [place] Comment on above: Performed By: #### P INR, 77840-8, CMP, CBC, HA1C #### [facility] ([id number]) [address], [address] [place] [address] Calcium [Mass/Vol] 8.4 mg/dL Low 8.5-10.5 [facility] Comment on above: Performed By: #### P INR, 94288-7, CMP, CBC, HA1C #### [facility] ([id number]) [address], [address] [place] [address] Chloride [Moles/Vol] 103 mmol/L Normal 98-109 [facility] [place] Comment on above: Performed By: #### P INR, 20379-1, CMP, CBC, HA1C #### [facility] ([id number]) [address], [address] [place] [address] CO2 [Moles/Vol] 24 mmol/L Normal 22-32 [facility] [place] Comment on above: Performed By: #### P INR, 13002-9, CMP, CBC, HA1C #### [facility] ([id number]) [address], [address] [place] [address] Creatinine [Mass/Vol] 3.39 mg/dL High 0.60-1.30 [facility] [place] Comment on above: Result Comment: METH OD TRACEABLE TO IDMS STANDARD Performed By: #### P INR, 02918-6, CMP, CBC, HA1C #### [facility] ([id number]) [address], [facility] [address] [place] [address] GFR/1.73 sq M.predicted among non-blacks MDRD (S/P/Bld) [Vol rate/Area] 19 mL/min/{1.73_m2} Low >59 [facility] [place] Comment on above: Result Comment: Reported eGFR is based on the CKD-EPI 2020 equation that does not use a race coefficient. Performed By: #### P INR, 24260-6, CMP, CBC, HA1C #### [facility] ([id number]) [address], [address] [place] [address] Glucose [Mass/Vol] 160 mg/dL High 65-99 [facility] Comment on above: Performed By: #### P INR, 36767-2, CMP, CBC, HA1C #### [facility] ([id number]) [address] [place] [address] Potassium [Moles/Vol] 3.8 mmol/L Normal 3.5-5.0 [facility] [place] Comment on above: Performed By: #### P INR, 37452-5, CMP, CBC, HA1C #### [facility] ([id number]) [address] [place] [address] Protein [Mass/Vol] 5.5 g/dL Low 6.0-8.0 [facility] Comment on above: Performed By: #### P INR, 89569-5, CMP, CBC, HA1C #### [facility] ([id number]) [address] [place] [address] Sodium [Moles/Vol] 137 mmol/L Normal 134-146 [facility] Comment on above: Performed By: #### P INR, 52151-3, CMP, CBC, HA1C #### [facility] ([id number]) [address] [place] [address] Urea nitrogen [Mass/Vol] 33 mg/dL High 5-27 [facility] [place] Comment on above: Performed By: #### P INR, 32169-8, CMP, CBC, HA1C #### [facility] ([id number]) [address] [place] [address] Comprehensive metabolic pane cecilio 05-12-2024 Albumin [Mass/Vol] 3.5 g/dL 3.2 - 5.3 g/dL [facility] ALP [Catalytic activity/Vol] 78 U/L 39 - 130 U/L [facility] ALT No additional P-5'-P [Catalytic activity/Vol] 84 U/L High 0 - 40 U/L [facility] Anion gap [Moles/Vol] 10 mmol/L 5 - 15 mmol/L [facility] AST [Catalytic activity/Vol] 33 U/L 0 - 41 U/L [facility] Bilirubin [Mass/Vol] 0.7 mg/dL 0.3 - 1.2 mg/dL [facility] Calcium [Mass/Vol] 8.4 mg/dL Low 8.5 - 10. 5 mg/dL [facility] Chloride [Moles/Vol] 103 mmol/L 98 - 109 mmol/L [facility] CO2 [Moles/Vol] 24 mmol/L 22 - 32 mmol/L [facility] Creatinine [Mass/Vol] 3.39 mg/dL High 0.60 - 1.30 mg/dL [facility] eGFR (CKD-EPI)non-race dependent 19 Low - PINF [facility] Glucose [Mass/Vol] 160 mg/dL High 65 - 99 mg/dL [facility] Interpretation and review of laboratory results Abnormal [facility] Potassium [Moles/Vol] 3.8 mmol/L 3.5 - 5.0 mmol/L [facility] Protein [Mass/Vol] 5.5 g/dL Low 6.0 - 8.0 g/dL [facility] Sodium [Moles/Vol] 137 mmol/L 134 - 146 mmol/L [facility] Urea nitrogen [Mass/Vol] 33 mg/dL High 5 - 27 mg/dL [facility] Crossmatch RBC:on 05-12-2024 [facility] Glucose Glucometer (BldC) [M ass/Vol]on 05-12-2024 Glucose [Mass/Vol] 191 mg/dL High 65 - 99 mg/dL [facility] Interpretation and review of laboratory results Abnormal [facility] Glucose [Mass/Vol] 191 mg/dL High 65-99 [facility] Glucose [Mass/Vol] 154 mg/dL High 65 - 99 mg/dL [facility] Interpretation and review of laboratory results Abnormal [facility] Glucose [Mass/Vol] 154 mg/dL High 65-99 [facility] Glucose [Mass/Vol] 176 mg/dL High 65 - 99 mg/dL [facility] Interpretation and review of laboratory results Abnormal [facility] Glucose [Mass/Vol] 176 mg/dL High 65-99 [facility] Glucose [Mass/Vol] 112 mg/dL High 65 - 99 mg/dL [facility] Interpretation and review of laboratory results Abnormal [facility] Glucose [Mass/Vol] 112 mg/dL High 65-99 [facility] Glucose [Mass/Vol] 146 mg/dL High 65 - 99 mg/dL [facility] Interpretation and review of laboratory results Abnormal [facility] Glucose [Mass/Vol] 146 mg/dL High 65-99 [facility] Glucose [Mass/Vol] 164 mg/dL High 65 - 99 mg/dL [facility] Interpretation and review of laboratory results Abnormal [facility] Glucose [Mass/Vol] 164 mg/dL High 65-99 [facility] Hemodialysis inpatienton [facility] MAGNESIUMon 05-12-2024 Magnesium [Mass/Vol] 2.2 mg/dL Normal 1.8-2.6 [facility] [place] Comment on above: Performed By: #### P INR, 27876-5, CMP, CBC, HA1C #### [facility] ([id number]) [address] [place] [address] Magnesiumon 05-12-2024 Magnesium [Mass/Vol] 2.2 mg/dL 1.8 - 2.6 mg/dL [facility] No Panel Informationon 05-12 [facility] PHOSPHORUSon 05-12-2024 Phosphate [Mass/Vol] 2.7 mg/dL Normal 2.4-4.9 [facility] Comment on above: Performed By: #### P INR, 68236-9, CMP, CBC, HA1C #### [facility] ([id number]) [address] [place] [address] POTASSIUMon 05-12-2024 Potassium [Moles/Vol] 3.9 mmol/L Normal 3.5-5.0 [facility] [place] Comment on above: Performed By: #### P INR, 98141-7, CMP, CBC, HA1C #### [facility] ([id number]) [address] [place] [address] Phosphoruson 05-12-2024 Phosphate [Mass/Vol] 2.7 mg/dL 2.4 - 4.9 mg/dL [facility] Potassiumon 05-12-2024 Potassium [Moles/Vol] 3.9 mmol/L 3.5 - 5.0 mmol/L [facility] Potassium [Moles/Vol]on 04-24 [facility] Troponin I, High Sensitivity on 05-12-2024 Troponin I.cardiac High sensitivity method [Mass/Vol] 36 ng/L High NINF - 21 ng/L [facility] Troponin I, High Sensitivity 1 Houron 05-12-2024 Troponin I.cardiac High sensitivity method [Mass/Vol] 33 ng/L High NINF - 21 ng/L [facility] Troponin I.cardiac High sens itivity method [Mass/Vol]on 05-12-2024 Interpretation and review of laboratory results Abnormal [facility] Interpretation and review of laboratory results Abnormal [facility] 1 HOUR TROP I, HIGH SENSITIVITY 33 ng/L High <21 [facility] [place] Comment on above: Result Comment: Elevations of hs-Troponin may be due to causes other than myocardial ischemia. Recommend serial hs-Troponin testing be performed. For the initial evaluation and management of chest pain patients, refer to the algorithms linked below. Emergency Patient: [email or web address] Inpatient: [email or web address] Performed By: #### P INR, 38183-4, CMP, CBC, HA1C #### [facility] ([id number]) [address], [address] [place] [address] TROPONIN I, HIGH SENSITIVITY 36 ng/L High <21 [facility] Comment on above: Result Comment: Elevations of hs-Troponin may be due to causes other than myocardial ischemia. Recommend serial hs-Troponin testing be performed. For the initial evaluation and management of chest pain patients, refer to the algorithms linked below. Emergency Patient: [email or web address] Inpatient: [email or web address] Performed By: #### P INR, 98778-0, CMP, CBC, HA1C #### [facility] ([id number]) [address] [place] [address] XR CHEST 1 VWon 05-12-2024 XR CHEST 1 VW XR CHEST 1 VW HISTORY: Chest pain COMPARISON: Chest x-ray 02/03/2024 FINDINGS: Portable AP semiupright view of the chest was performed. Enteric feeding tube extends into the stomach with tip not included in the [id number]. A tunneled right jugular dialysis catheter tip overlies the cavoatrial junction. Cardiac silhouette is grossly within normal limits. Bibasilar airspace disease. No significant vascular congestion, pleural effusion or pneumothorax. Surgical clips overlie the right upper quadrant. IMPRESSION: * Bibasilar atelectasis versus pneumonia. Finalized by Renato De La Torre MD on 05/12/2024 7:49 PM Normal [facility] XR Chest [facility] (n[facility]ative[facility] XR Chest Single viewOrdered By: Renato De La Torre on 05-12-2024 [facility] Work Phone: CBC AND AUTO DIFFon 05-11-20 ABSOLUTE BASOPHIL 0.1 X10E9/L Normal 0.0-0.2 [facility] Comment on above: Performed By: #### C BCA, CMP, , 2776-07 ####[facility] ([id number])[address], [place] [address] ABSOLUTE NEUTROPHIL 7.2 X10E9/L High 1.5-6.6 [facility] Comment on above: Performed By: #### C BCA, CMP, , 27701-22 ####[facility] ([id number])[address], [place] [address] Basophils/100 WBC (Bld) 1.6 % Normal [facility] [place] Comment on above: Performed By: #### C BCA, CMP, , 2776-07 ####[facility] ([id number])[address], [place] [address] Eosinophils (Bld) [#/Vol] 0.1 10*3/uL Normal 0.0-0.4 [facility] [place] Comment on above: Performed By: #### C DOUGLAS, CMP, , 2776-07 ####[facility] ([id number])[address], [place] [address] Eosinophils/100 WBC (Bld) 1.2 % Normal [facility] Comment on above: Performed By: #### C DOUGLAS, CMP, , 2776-07 ####[facility] ([id number])[address], [place] [address] Erythrocyte distribution width (RBC) [Ratio] 13.5 % Normal 11.5-15.0 [facility] [place] Comment on above: Performed By: #### C DOUGLAS, CMP, , 2776-07 ####[facility] ([id number])[address], [place] [address] Hematocrit (Bld) [Volume fraction] 27.9 % Low 39-49 [facility] [place] Comment on above: Performed By: #### C DOGULAS, CMP, , 2776-07 ####[facility] ([id number])[address], [place] [address] Hemoglobin (Bld) [Mass/Vol] 9.8 g/dL Low 13.0-17.0 [facility] Comment on above: Performed By: #### C DOUGLAS, CMP, , 2776-07 ####[facility] ([id number])[address], [place] [address] Lymphocytes (Bld) [#/Vol] 1.4 10*3/uL Normal 1.0-3.5 [facility] Comment on above: Performed By: #### C BCA, CMP, , 2776-07 ####[facility] ([id number])[address] [place] [address] Lymphocytes/100 WBC (Bld) 15.0 % Normal [facility] Comment on above: Performed By: #### C BCA, CMP, , 2776-07 ####[facility] ([id number])[address] [place] [address] MCH (RBC) [Entitic mass] 33.2 pg Normal 27-34 [facility] Comment on above: Performed By: #### C BCA, CMP, , 2776-07 ####[facility] ([id number])[address] [place] [address] MCHC (RBC) [Mass/Vol] 35.3 g/dL Normal 32-36 [facility] Comment on above: Performed By: #### C BCA, CMP, , 2776-07 ####[facility] ([id number])[address], [place] [address] MCV (RBC) [Entitic vol] 94 fL Normal 80-100 [facility] Comment on above: Performed By: #### Kathleen BCA, CMP, , 2776-07 ####[facility] ([id number])[address] [place] [address] Monocytes (Bld) [#/Vol] 0.4 10*3/uL Normal 0-0.9 [facility] Comment on above: Performed By: #### Kathleen BCA, CMP, , 2776-07 ####[facility] ([id number])[address] [place] [address] Monocytes/100 WBC (Bld) 4.5 % Normal [facility] Comment on above: Performed By: #### C BCA, CMP, , 2776-07 ####[facility] ([id number])[address], [place] [address] Neutrophils/100 WBC (Bld) 77.7 % Normal [facility] Comment on above: Performed By: #### C BCA, CMP, , 2776-07 ####[facility] ([id number])[address] [place] [address] Platelet mean volume (Bld) [Entitic vol] 7.0 fL Normal 7-12 [facility] Comment on above: Performed By: #### Kathleen BCA, CMP, , 2776-07 ####[facility] ([id number])[address], [place] [address] Platelets (Bld) [#/Vol] 155 10*3/uL Normal 150-450 [facility] Comment on above: Performed By: #### Kathleen BCA, CMP, , 2776-07 ####[facility] ([id number])[address] [address], [place] [address] RBC COUNT 2.97 X10E12/L Low 4.10-5.70 [facility] Comment on above: Performed By: #### Kathleen BCA, CMP, , 2776-07 ####[facility] ([id number])[address] [place] [address] WBC (Bld) [#/Vol] 9.2 10*3/uL Normal 4.0-11.0 [facility] Comment on above: Performed By: #### C BCA, CMP, , 2776-07 ####[facility] ([id number])[address], [place] [address] CBC auto differentialon 04-24 Basophils (Bld) [#/Vol] 0.1 10*3/uL [facility] Basophils/100 WBC (Bld) 1.6 % [facility] Eosinophils (Bld) [#/Vol] 0.1 10*3/uL [facility] Eosinophils/100 WBC (Bld) 1.2 % [facility] Erythrocyte distribution width (RBC) [Ratio] 13.5 % 11.5 - 15.0 % [facility] Hematocrit (Bld) [Volume fraction] 27.9 % Low 39 - 49 % [facility] Hemoglobin (Bld) [Mass/Vol] 9.8 g/dL Low 13.0 - 17.0 g/dL [facility] Interpretation and review of laboratory results Abnormal [facility] Lymphocytes (Bld) [#/Vol] 1.4 10*3/uL [facility] Lymphocytes/100 WBC (Bld) 15 % [facility] MCH (RBC) [Entitic mass] 33.2 pg 27 - 34 pg [facility] MCHC (RBC) [Mass/Vol] 35.3 g/dL 32 - 36 g/dL [facility] MCV (RBC) [Entitic vol] 94 fL 80 - 100 fL [facility] Monocytes (Bld) [#/Vol] 0.4 10*3/uL [facility] Monocytes/100 WBC (Bld) 4.5 % [facility] Neutrophils (Bld) [#/Vol] 7.2 10*3/uL High [facility] Neutrophils/100 WBC (Bld) 77.7 % [facility] Platelet mean volume (Bld) [Entitic vol] 7 fL 7 - 12 fL [facility] Platelets (Bld) [#/Vol] 155 10*3/uL [facility] RBC (Bld) [#/Vol] 2.97 10*6/uL Low [facility] WBC corrected for nucl RBC Auto (Bld) [#/Vol] 9.2 [facility] COMPREHENSIVE METABOLIC PANE Cecilio 05-11-2024 Albumin [Mass/Vol] 3.7 g/dL Normal 3.2-5.3 [facility] Comment on above: Performed By: #### C BCA, CMP, , 2776-07 ####[facility] ([id number])[address], [place] [address] ALP [Catalytic activity/Vol] 78 U/L Normal 39-130 [facility] Comment on above: Performed By: #### C BCA, CMP, , 2776-07 ####[facility] ([id number])[address], [place] [address] ALT [Catalytic activity/Vol] 153 U/L High 0-40 [facility] Comment on above: Performed By: #### C BCA, CMP, , 2776-07 ####[facility] ([id number])[address], [place] [address] Anion gap [Moles/Vol] 11 mmol/L Normal 5-15 [facility] Comment on above: Performed By: #### C BCA, CMP, , 2776-07 ####[facility] ([id number])[address], [place] [address] AST [Catalytic activity/Vol] 73 U/L High 0-41 [facility] Comment on above: Performed By: #### C BCA, CMP, , 2776-07 ####[facility] ([id number])[address] [address] Bilirubin [Mass/Vol] 0.8 mg/dL Normal 0.3-1.2 [facility] [place] Comment on above: Performed By: #### C BCA, CMP, , 2776-07 ####[facility] ([id number])[address], [address], [place] [address] Calcium [Mass/Vol] 8.8 mg/dL Normal 8.5-10.5 [facility] Comment on above: Performed By: #### C BCA, CMP, , 2776-07 ####[facility] ([id number])[address], [address], [place] [address] Chloride [Moles/Vol] 101 mmol/L Normal 98-109 [facility] [place] Comment on above: Performed By: #### C BCA, CMP, , 2776-07 ####[facility] ([id number])[address], [address], [place] [address] CO2 [Moles/Vol] 22 mmol/L Normal 22-32 [facility] [place] Comment on above: Performed By: #### C BCA, CMP, , 2776-07 ####[facility] ([id number])[address], [address], [place] [address] Creatinine [Mass/Vol] 3.04 mg/dL High 0.60-1.30 [facility] [place] Comment on above: Result Comment: METH OD TRACEABLE TO IDMS STANDARD Performed By: #### C BCA, CMP, , 2776-07 ####[facility] ([id number])[address] [address] GFR/1.73 sq M.predicted among non-blacks MDRD (S/P/Bld) [Vol rate/Area] 22 mL/min/{1.73_m2} Low >59 [facility] [place] Comment on above: Result Comment: Reported eGFR is based on the CKD-EPI 2020 equation that does not use a race coefficient. Performed By: #### C BCA, CMP, , 2776-07 ####[facility] ([id number])[address] [address], [place] [address] Glucose [Mass/Vol] 181 mg/dL High 65-99 [facility] Comment on above: Performed By: #### C BCA, CMP, , 2776-07 ####[facility] ([id number])[address], [address] [place] [address] Potassium [Moles/Vol] 4.1 mmol/L Normal 3.5-5.0 [facility] [place] Comment on above: Performed By: #### C BCA, CMP, 71739-1, 2777-1 ####[facility] ([id number])[address] [address] [place] [address] Protein [Mass/Vol] 5.6 g/dL Low 6.0-8.0 [facility] Comment on above: Performed By: #### C BCA, CMP, , 7-1 ####[facility] ([id number])[address] [address] [place] [address] Sodium [Moles/Vol] 134 mmol/L Normal 134-146 [facility] Comment on above: Performed By: #### C BCA, CMP, , 2777-1 ####[facility] ([id number])[address] [address] [place] [address] Urea nitrogen [Mass/Vol] 28 mg/dL High 5-27 [facility] [place] Comment on above: Performed By: #### C BCA, CMP, , 2777-1 ####[facility] ([id number])[address] [address] Comprehensive metabolic pane cecilio 05-11-2024 Albumin [Mass/Vol] 3.7 g/dL 3.2 - 5.3 g/dL [facility] ALP [Catalytic activity/Vol] 78 U/L 39 - 130 U/L [facility] ALT No additional P-5'-P [Catalytic activity/Vol] 153 U/L High 0 - 40 U/L [facility] Anion gap [Moles/Vol] 11 mmol/L 5 - 15 mmol/L [facility] AST [Catalytic activity/Vol] 73 U/L High 0 - 41 U/L [facility] Bilirubin [Mass/Vol] 0.8 mg/dL 0.3 - 1.2 mg/dL [facility] Calcium [Mass/Vol] 8.8 mg/dL 8.5 - 10. 5 mg/dL [facility] Chloride [Moles/Vol] 101 mmol/L 98 - 109 mmol/L [facility] CO2 [Moles/Vol] 22 mmol/L 22 - 32 mmol/L [facility] Creatinine [Mass/Vol] 3.04 mg/dL High 0.60 - 1.30 mg/dL [facility] eGFR (CKD-EPI)non-race dependent 22 Low - PINF [facility] Glucose [Mass/Vol] 181 mg/dL High 65 - 99 mg/dL [facility] Interpretation and review of laboratory results Abnormal [facility] Potassium [Moles/Vol] 4.1 mmol/L 3.5 - 5.0 mmol/L [facility] Protein [Mass/Vol] 5.6 g/dL Low 6.0 - 8.0 g/dL [facility] Sodium [Moles/Vol] 134 mmol/L 134 - 146 mmol/L [facility] Urea nitrogen [Mass/Vol] 28 mg/dL High 5 - 27 mg/dL [facility] Glucose Glucometer (BldC) [M ass/Vol]on 05-11-2024 Glucose [Mass/Vol] 156 mg/dL High 65 - 99 mg/dL [facility] Interpretation and review of laboratory results Abnormal [facility] Glucose [Mass/Vol] 156 mg/dL High 65-99 [facility] Glucose [Mass/Vol] 124 mg/dL High 65 - 99 mg/dL [facility] Interpretation and review of laboratory results Abnormal [facility] Glucose [Mass/Vol] 124 mg/dL High 65-99 [facility] Glucose [Mass/Vol] 139 mg/dL High 65 - 99 mg/dL [facility] Interpretation and review of laboratory results Abnormal [facility] Glucose [Mass/Vol] 139 mg/dL High 65-99 [facility] Glucose [Mass/Vol] 199 mg/dL High 65 - 99 mg/dL [facility] Interpretation and review of laboratory results Abnormal [facility] Glucose [Mass/Vol] 199 mg/dL High 65-99 [facility] Glucose [Mass/Vol] 182 mg/dL High 65 - 99 mg/dL [facility] Interpretation and review of laboratory results Abnormal [facility] Glucose [Mass/Vol] 182 mg/dL High 65-99 [facility] Glucose [Mass/Vol] 185 mg/dL High 65 - 99 mg/dL [facility] Interpretation and review of laboratory results Abnormal [facility] Glucose [Mass/Vol] 185 mg/dL High 65-99 [facility] Glucose [Mass/Vol] 170 mg/dL High 65 - 99 mg/dL [facility] Interpretation and review of laboratory results Abnormal [facility] Glucose [Mass/Vol] 170 mg/dL High 65-99 [facility] MAGNESIUMon 05-11-2024 Magnesium [Mass/Vol] 2.1 mg/dL Normal 1.8-2.6 [facility] [place] Comment on above: Performed By: #### C RAFAEL COLE, 20602-2, 2777-1 ####[facility] ([id number])[address] [place] [address], [address] [address] Magnesiumon 05-11-2024 Magnesium [Mass/Vol] 2.1 mg/dL 1.8 - 2.6 mg/dL [facility] No Panel Informationon 05-11 [facility] PHOSPHORUSon 05-11-2024 Phosphate [Mass/Vol] 3.8 mg/dL Normal 2.4-4.9 [facility] [place] Comment on above: Performed By: #### Kathleen COLE CMP, 67511-0, 2777-1 ####[facility] ([id number])[address] [facility], [address] [place] [address] Phosphoruson 05-11-2024 Phosphate [Mass/Vol] 3.8 mg/dL 2.4 - 4.9 mg/dL [facility] CBC AND AUTO DIFFon 10-17-20 24 ABSOLUTE BASOPHIL 0.0 X10E9/L Normal 0.0-0.2 [facility] Comment on above: Performed By: #### C DOUGLAS, CMP, , 2776-07 ####[facility] ([id number])[address], [address] [place] [address] ABSOLUTE NEUTROPHIL 9.7 X10E9/L High 1.5-6.6 [facility] Comment on above: Performed By: #### C BCA, CMP, , 2776-07 ####[facility] ([id number])[address], [address], [place] [address] Basophils/100 WBC (Bld) 0.3 % Normal [facility] [place] Comment on above: Performed By: #### C BCA, CMP, , 2776-07 ####[facility] ([id number])[address], [address], [place] [address] Eosinophils (Bld) [#/Vol] 0.0 10*3/uL Normal 0.0-0.4 [facility] [place] Comment on above: Performed By: #### C BCA, CMP, , 2776-07 ####[facility] ([id number])[address], [address], [place] [address] Eosinophils/100 WBC (Bld) 0.0 % Normal [facility] [place] Comment on above: Performed By: #### C BCA, CMP, , 2776-07 ####[facility] ([id number])[address], [address], [place] [address] Erythrocyte distribution width (RBC) [Ratio] 13.5 % Normal 11.5-15.0 [facility] [place] Comment on above: Performed By: #### C BCA, CMP, , 2776-07 ####[facility] ([id number])[address], [address] [place] [address] Hematocrit (Bld) [Volume fraction] 31.6 % Low 39-49 [facility] [place] Comment on above: Performed By: #### Kathleen COLE CMP, , 2776-07 ####[facility] ([id number])[address], [address] [place] [address] Hemoglobin (Bld) [Mass/Vol] 10.8 g/dL Low 13.0-17.0 [facility] [place] Comment on above: Performed By: #### C DOUGLAS, CMP, , 2776-07 ####[facility] ([id number])[address], [address] [place] [address] Lymphocytes (Bld) [#/Vol] 1.6 10*3/uL Normal 1.0-3.5 [facility] [place] Comment on above: Performed By: #### Kathleen COLE CMP, , 2776-07 ####[facility] ([id number])[address], [address] [place] [address] Lymphocytes/100 WBC (Bld) 13.6 % Normal [facility] [place] Comment on above: Performed By: #### Kathleen BCA, CMP, , 2776-07 ####[facility] ([id number])[address], [address] [place] [address] MCH (RBC) [Entitic mass] 32.4 pg Normal 27-34 [facility] [place] Comment on above: Performed By: #### C BCA, CMP, , 2776-07 ####[facility] ([id number])[address], [address] [place] [address] MCHC (RBC) [Mass/Vol] 34.2 g/dL Normal 32-36 [facility] [place] Comment on above: Performed By: #### Kathleen BCA, CMP, , 2776-07 ####[facility] ([id number])[address], [address], [place] [address] MCV (RBC) [Entitic vol] 95 fL Normal 80-100 [facility] [place] Comment on above: Performed By: #### C BCA, CMP, , 2776-07 ####[facility] ([id number])[address], [address], [place] [address] Monocytes (Bld) [#/Vol] 0.5 10*3/uL Normal 0-0.9 [facility] [place] Comment on above: Performed By: #### C BCA, CMP, , 2776-07 ####[facility] ([id number])[address], [address], [place] [address] Monocytes/100 WBC (Bld) 4.3 % Normal [facility] [place] Comment on above: Performed By: #### Kathleen BCA, CMP, , 2776-07 ####[facility] ([id number])[address], [address] [address] Neutrophils/100 WBC (Bld) 81.8 % Normal [facility] [place] Comment on above: Performed By: #### Kathleen BCA, CMP, , 2776-07 ####[facility] ([id number])[address], [address], [place] [address] Platelet mean volume (Bld) [Entitic vol] 7.3 fL Normal 7-12 [facility] [place] Comment on above: Performed By: #### C BCA, CMP, , 2776-07 ####[facility] ([id number])[address], [address], [place] [address] Platelets (Bld) [#/Vol] 171 10*3/uL Normal 150-450 [facility] [place] Comment on above: Performed By: #### Kathleen BCA, CMP, , 2776-07 ####[facility] ([id number])[address], [address], [place] [address] RBC COUNT 3.34 X10E12/L Low 4.10-5.70 [facility] Comment on above: Performed By: #### C DOUGLAS, [facility], [address]-0, 277-1 ####[facility] ([id number])[address], [address] [place] [address] WBC (Bld) [#/Vol] 11.8 10*3/uL High 4.0-11.0 [facility] Comment on above: Performed By: #### C DOUGLAS, [facility], [address]-6, 2777-1 ####[facility] ([id number])[address], [address] [place] [address] CBC auto differentialon 04-24 Basophils (Bld) [#/Vol] 0 10*3/uL [facility] Basophils/100 WBC (Bld) 0.3 % [facility] Eosinophils (Bld) [#/Vol] 0 10*3/uL [facility] Eosinophils/100 WBC (Bld) 0 % [facility] Erythrocyte distribution width (RBC) [Ratio] 13.5 % 11.5 - 15.0 % [facility] Hematocrit (Bld) [Volume fraction] 31.6 % Low 39 - 49 % [facility] Hemoglobin (Bld) [Mass/Vol] 10.8 g/dL Low 13.0 - 17.0 g/dL [facility] Interpretation and review of laboratory results Abnormal [facility] Lymphocytes (Bld) [#/Vol] 1.6 10*3/uL [facility] Lymphocytes/100 WBC (Bld) 13.6 % [facility] MCH (RBC) [Entitic mass] 32.4 pg 27 - 34 pg [facility] MCHC (RBC) [Mass/Vol] 34.2 g/dL 32 - 36 g/dL [facility] MCV (RBC) [Entitic vol] 95 fL 80 - 100 fL [facility] Monocytes (Bld) [#/Vol] 0.5 10*3/uL [facility] Monocytes/100 WBC (Bld) 4.3 % [facility] Neutrophils (Bld) [#/Vol] 9.7 10*3/uL High [facility] Neutrophils/100 WBC (Bld) 81.8 % [facility] Platelet mean volume (Bld) [Entitic vol] 7.3 fL 7 - 12 fL [facility] Platelets (Bld) [#/Vol] 171 10*3/uL [facility] RBC (Bld) [#/Vol] 3.34 10*6/uL Low [facility] WBC corrected for nucl RBC Auto (Bld) [#/Vol] 11.8 High [facility] COMPREHENSIVE METABOLIC PANE Cecilio 05-10-2024 Albumin [Mass/Vol] 3.8 g/dL Normal 3.2-5.3 [facility] Comment on above: Performed By: #### C DOUGLAS CMP, , 2776- ####[facility] ([id number])[address], [address], [place] [address] ALP [Catalytic activity/Vol] 100 U/L Normal 39-130 [facility] [place] Comment on above: Performed By: #### C BCA, CMP, , 2776-07 ####[facility] ([id number])[address], [address] [place] [address] ALT [Catalytic activity/Vol] 219 U/L High 0-40 [facility] [place] Comment on above: Performed By: #### C BCA, CMP, , 2776-07 ####[facility] ([id number])[address] [place] [address] Anion gap [Moles/Vol] 10 mmol/L Normal 5-15 [facility] [place] Comment on above: Performed By: #### C BCA, CMP, , 2776-07 ####[facility] ([id number])[address], [address], [place] [address] AST [Catalytic activity/Vol] 156 U/L High 0-41 [facility] [place] Comment on above: Performed By: #### C BCA, CMP, , 2776-07 ####[facility] ([id number])[address], [address], [place] [address] Bilirubin [Mass/Vol] 0.7 mg/dL Normal 0.3-1.2 [facility] Comment on above: Performed By: #### C BCA, CMP, , 2776-07 ####[facility] ([id number])[address], [address], [place] [address] Calcium [Mass/Vol] 8.6 mg/dL Normal 8.5-10.5 [facility] Comment on above: Performed By: #### C BCA, CMP, , 2776-07 ####[facility] ([id number])[address], [address], [place] [address] Chloride [Moles/Vol] 108 mmol/L Normal 98-109 [facility] [place] Comment on above: Performed By: #### C BCA, CMP, , 2776-07 ####[facility] ([id number])[address], [address], [place] [address] CO2 [Moles/Vol] 20 mmol/L Low 22-32 [facility] [place] Comment on above: Performed By: #### C BCA, CMP, , 2776-07 ####[facility] ([id number])[address], [address], [place] [address] Creatinine [Mass/Vol] 3.77 mg/dL High 0.60-1.30 [facility] Comment on above: Result Comment: METH OD TRACEABLE TO IDMS STANDARD Performed By: #### C BCA, CMP, , 2776-07 ####[facility] ([id number])[address] [address], [place] [address] GFR/1.73 sq M.predicted among non-blacks MDRD (S/P/Bld) [Vol rate/Area] 17 mL/min/{1.73_m2} Low >59 [facility] [place] Comment on above: Result Comment: Reported eGFR is based on the CKD-EPI 2020 equation that does not use a race coefficient. Performed By: #### C RAFAEL COLE, , 2776-07 ####[facility] ([id number])[address] [address] [address], [place] [address] Glucose [Mass/Vol] 169 mg/dL High 65-99 [facility] Comment on above: Performed By: #### C RAFAEL COLE, , 2776-07 ####[facility] ([id number])[address] [address] Potassium [Moles/Vol] 6.2 mmol/L Critically high 3.5-5.0 [facility] Comment on above: Performed By: #### C RAFAEL COLE, , 2776-07 ####[facility] ([id number])[address] [address], [place] [address] Protein [Mass/Vol] 5.7 g/dL Low 6.0-8.0 [facility] Comment on above: Performed By: #### C RAFAEL COLE, , 2776-07 ####[facility] ([id number])[address] [address] [address], [place] [address] Sodium [Moles/Vol] 138 mmol/L Normal 134-146 [facility] Comment on above: Performed By: #### C RAFAEL COLE, , 2776-07 ####[facility] ([id number])[address] [address] [place] [address] Urea nitrogen [Mass/Vol] 45 mg/dL High 5-27 [facility] Comment on above: Performed By: #### C BCA, [facility], [address]-7, 2777-1 ####[facility] ([id number])[address] [facility], [address] [place] [address] Cobalamin (Vitamin B12) [Mas s/Vol]on 05-10-2024 [facility] Comprehensive metabolic pane cecilio 05-10-2024 Albumin [Mass/Vol] 3.8 g/dL 3.2 - 5.3 g/dL [facility] ALP [Catalytic activity/Vol] 100 U/L 39 - 130 U/L [facility] ALT No additional P-5'-P [Catalytic activity/Vol] 219 U/L High 0 - 40 U/L [facility] Anion gap [Moles/Vol] 10 mmol/L 5 - 15 mmol/L [facility] AST [Catalytic activity/Vol] 156 U/L High 0 - 41 U/L [facility] Bilirubin [Mass/Vol] 0.7 mg/dL 0.3 - 1.2 mg/dL [facility] Calcium [Mass/Vol] 8.6 mg/dL 8.5 - 10. 5 mg/dL [facility] Chloride [Moles/Vol] 108 mmol/L 98 - 109 mmol/L [facility] CO2 [Moles/Vol] 20 mmol/L Low 22 - 32 mmol/L [facility] Creatinine [Mass/Vol] 3.77 mg/dL High 0.60 - 1.30 mg/dL [facility] eGFR (CKD-EPI)non-race dependent 17 Low - PINF [facility] Glucose [Mass/Vol] 169 mg/dL High 65 - 99 mg/dL [facility] Interpretation and review of laboratory results Abnormal [facility] Potassium [Moles/Vol] 6.2 mmol/L Critically high 3.5 - 5.0 mmol/L [facility] Protein [Mass/Vol] 5.7 g/dL Low 6.0 - 8.0 g/dL [facility] Sodium [Moles/Vol] 138 mmol/L 134 - 146 mmol/L [facility] Urea nitrogen [Mass/Vol] 45 mg/dL High 5 - 27 mg/dL [facility] Crossmatch RBC:on 05-10-2024 BB Type Barcode 6200 [facility] Blood component type [id number] [facility] Expiration Date [facility] Status of unit /RELEASED [facility] ABO A [facility] Unit number [id number] [facility] a [facility] RH Positive [facility] Electrocardiogram, 12-leadon 05-10-2024 TRACEMASTERVUE [facility] FERRITINon 05-10-2024 Ferritin [Mass/Vol] 1159 ng/mL High 24-336 [facility] Comment on above: Performed By: #### 2 823-3, FEPR, 6-4, 2283-8, 2132-03 ####[facility] ([id number])[address] [place] [address], [address] [place] [address] Ferritinon 05-10-2024 Ferritin [Mass/Vol] 1159 ng/mL High 24 - 336 ng/mL [facility] Ferritin [Mass/Vol]on 2023 Interpretation and review of laboratory results Abnormal [facility] Folateon 05-10-2024 Folate [Mass/Vol] 9.4 ng/mL 5.8 - PINF ng/mL [facility] Folate [Mass/Vol]on 05-10-20 24 [facility] FOLIC ACID 9.4 ng/mL Normal >5.8 [facility] Comment on above: Result Comment: NEW REFERENCE RANGE Performed By: #### 2 823-3, FEPR, 6-4, 2283-8, 2132-03 ####[facility] ([id number])[address] [place] [address], [address] [place] [address] Glucose Glucometer (BldC) [M ass/Vol]on 05-10-2024 Glucose [Mass/Vol] 146 mg/dL High 65 - 99 mg/dL [facility] Interpretation and review of laboratory results Abnormal [facility] Glucose [Mass/Vol] 146 mg/dL High 65-99 [facility] Glucose [Mass/Vol] 137 mg/dL High 65 - 99 mg/dL [facility] Interpretation and review of laboratory results Abnormal [facility] Glucose [Mass/Vol] 137 mg/dL High 65-99 [facility] Glucose [Mass/Vol] 101 mg/dL High 65 - 99 mg/dL [facility] Interpretation and review of laboratory results Abnormal [facility] Glucose [Mass/Vol] 101 mg/dL High 65-99 [facility] Glucose [Mass/Vol] 186 mg/dL High 65 - 99 mg/dL [facility] Interpretation and review of laboratory results Abnormal [facility] Glucose [Mass/Vol] 186 mg/dL High 65-99 [facility] Glucose [Mass/Vol] 251 mg/dL High 65 - 99 mg/dL [facility] Interpretation and review of laboratory results Abnormal [facility] Glucose [Mass/Vol] 251 mg/dL High 65-99 [facility] Glucose [Mass/Vol] 155 mg/dL High 65 - 99 mg/dL [facility] Interpretation and review of laboratory results Abnormal [facility] Glucose [Mass/Vol] 155 mg/dL High 65-99 [facility] Glucose [Mass/Vol] 162 mg/dL High 65 - 99 mg/dL [facility] Interpretation and review of laboratory results Abnormal [facility] Glucose [Mass/Vol] 162 mg/dL High 65-99 [facility] HGB AND HCTon 05-10-2024 Hematocrit (Bld) [Volume fraction] 30.5 % Low 39-49 [facility] Comment on above: Performed By: #### H H ####[facility] ([id number])[address] [facility], [address] [place] [address] Hemoglobin (Bld) [Mass/Vol] 10.5 g/dL Low 13.0-17.0 [facility] Comment on above: Performed By: #### H H ####[facility] ([id number])[address], [place] [address] Hemodialysis inpatienton [facility] Hemoglobin and hematocrit, b loodon 05-10-2024 Hematocrit (Bld) [Volume fraction] 30.5 % Low 39 - 49 % [facility] Hemoglobin (Bld) [Mass/Vol] 10.5 g/dL Low 13.0 - 17.0 g/dL [facility] Interpretation and review of laboratory results Abnormal [facility] IRON PROFILEon 05-10-2024 Iron [Mass/Vol] 35 ug/dL Low 50-212 [facility] [place] Comment on above: Performed By: #### 2 823-3, FEPR, 2276-4, 2283-8, 2132-03 ####[facility] ([id number])[address], [address], [place] [address] IRON BINDING 244 ug/dL Low 250-425 [facility] [place] Comment on above: Performed By: #### 2 823-3, FEPR, 6-4, 2283-8, 2132-03 ####[facility] ([id number])[address], [address] [place] [address] IRON SATURATION 14 % SATURATION Low 20-50 [facility] Comment on above: Performed By: #### 2 823-3, FEPR, 2276-4, 2283-8, 2132-03 ####[facility] ([id number])[address], [address], [place] [address] Iron and TIBCon 05-10-2024 Interpretation and review of laboratory results Abnormal [facility] Iron [Mass/Vol] 35 ug/dL Low 50 - 212 ug/dL [facility] Iron binding capacity [Mass/Vol] 244 ug/dL Low 250 - 425 ug/dL [facility] Iron saturation [Mass fraction] 14 Low [facility] Lactate (Bld) [Moles/Vol]on 05-10-2024 Lactate [Moles/Vol] 1.8 mmol/L 0.4 - 2. 0 mmol/L [facility] Lactate (P mendoza) [Moles/Vol]o n 05-10-2024 [facility] LACTATE W/REFLEX 2.0 mmol/L Normal 0.4-2.0 [facility] Comment on above: Result Comment: Result did not trigger repeat Lactate, re-order if needed. Performed By: #### 3 2133-1 ####[facility] ([id number])[address] [facility], [address] [place] [address] [facility] Lactate w/ Reflexon 05-10-20 Lactate (P mendoza) [Moles/Vol] 2 mmol/L 0.4 - 2.0 mmol/L [facility] Lactate (P mendoza) [Moles/Vol] 0.8 mmol/L 0.4 - 2.0 mmol/L [facility] MAGNESIUMon 05-10-2024 Magnesium [Mass/Vol] 2.5 mg/dL Normal 1.8-2.6 [facility] [place] Comment on above: Performed By: #### C DOUGLAS, [facility], 24841-8, 2777-1 ####[facility] ([id number])[address], [address] [place] [address] Magnesiumon 05-10-2024 Magnesium [Mass/Vol] 2.5 mg/dL 1.8 - 2.6 mg/dL [facility] Natriuretic peptide B [Mass/ Vol]on 05-10-2024 Interpretation and review of laboratory results Abnormal [facility] Natriuretic peptide B (Bld) [Mass/Vol] 566 pg/mL High NINF - 100.0 pg/mL [facility] Natriuretic peptide B (Bld) [Mass/Vol] 566 pg/mL High <100.0 [facility] Comment on above: Performed By: #### 3 0934-4 ####[facility] ([id number])[address], [address] [place] [address] No Panel Informationon 05-10 [facility] PHOSPHORUSon 05-10-2024 Phosphate [Mass/Vol] 4.3 mg/dL Normal 2.4-4.9 [facility] [place] Comment on above: Performed By: #### C BCA, CMP, 94002-3, 2777-1 ####[facility] ([id number])[address], [address] [place] [address] POTASSIUMon 05-10-2024 Potassium [Moles/Vol] 5.5 mmol/L High 3.5-5.0 [facility] Comment on above: Performed By: #### 2 823-3, FEPR, 2276-4, 2284-8, 2132-03 ####[facility] ([id number])[address], [address] [place] [address] Potassium [Moles/Vol] 6.2 mmol/L Critically high 3.5-5.0 [facility] [place] Comment on above: Performed By: #### 2 823-3 ####[facility] ([id number])[address] [address] Phosphoruson 05-10-2024 Phosphate [Mass/Vol] 4.3 mg/dL 2.4 - 4.9 mg/dL [facility] Potassiumon 05-10-2024 Potassium [Moles/Vol] 5.5 mmol/L High 3.5 - 5.0 mmol/L [facility] Potassium [Moles/Vol] 6.2 mmol/L Critically high 3.5 - 5.0 mmol/L [facility] Potassium [Moles/Vol]on 04-24 Interpretation and review of laboratory results Abnormal [facility] Interpretation and review of laboratory results Abnormal [facility] Troponin I, High Sensitivity on 05-10-2024 Troponin I.cardiac High sensitivity method [Mass/Vol] 38 ng/L High NINF - 21 ng/L [facility] Troponin I, High Sensitivity 1 Houron 05-10-2024 Troponin I.cardiac High sensitivity method [Mass/Vol] 33 ng/L High NINF - 21 ng/L [facility] Troponin I.cardiac High sens itivity method [Mass/Vol]on 05-10-2024 Interpretation and review of laboratory results Abnormal [facility] Interpretation and review of laboratory results Abnormal [facility] 1 HOUR TROP I, HIGH SENSITIVITY 33 ng/L High <21 [facility] Comment on above: Result Comment: Elevations of hs-Troponin may be due to causes other than myocardial ischemia. Recommend serial hs-Troponin testing be performed. For the initial evaluation and management of chest pain patients, refer to the algorithms linked below. Emergency Patient: [email or web address] Inpatient: [email or web address] Performed By: #### 8 9579-7 ####[facility] ([id number])[address] [place] [address], [address] [address] TROPONIN I, HIGH SENSITIVITY 38 ng/L High <21 [facility] Comment on above: Result Comment: Elevations of hs-Troponin may be due to causes other than myocardial ischemia. Recommend serial hs-Troponin testing be performed. For the initial evaluation and management of chest pain patients, refer to the algorithms linked below. Emergency Patient: [email or web address] Inpatient: [email or web address] Performed By: #### 8 9579-7 ####[facility] ([id number])[facility], [address] [place] [address] VITAMIN B12on 05-10-2024 Cobalamin (Vitamin B12) [Mass/Vol] 442 pg/mL Normal 180-914 [facility] [place] Comment on above: Performed By: #### 2 823-3, FEPR, 2276-4, 2284-8, 2132-9 ####[facility] ([id number])[address] [facility], [address] [place] [address] Vitamin B12on 05-10-2024 Cobalamin (Vitamin B12) [Mass/Vol] 442 pg/mL 180 - 914 pg/mL [facility] XR ABDOMEN AP 1 VWon 024 XR ABDOMEN AP 1 VW XR ABDOMEN AP 1 VW Abdomen single view Clinical history:NG tube placement enteric catheter placement and verification Comparison: None. Impression: Enteric catheter tip extends to the left mid abdomen and a somewhat unusual configuration which does not follow normal contours of the stomach or duodenum. Correlate with any prior abdominal bowel surgical history is recommended. This could be within a jejunal loop if a gastrojejunostomy has been performed. Finalized by Ga Stratton MD on 05/10/2024 12:55 PM Normal [facility] XR Abdomen APon 05-10-2024 SECTRAPACS [facility] Radiology Study observation (narrative) [facility] XR Abdomen APOrdered By: Abdias Stratton on 05-10-2024 [facility] Work Phone: ABG RAPID K GLU HHon 024 WILLARD'S TEST Normal [facility] Comment on above: Performed By: #### H RTN ####[facility] ([id number])[address] [place] [address] BASE,DEFICIT 5.8 MMOL/L High 0.0-2.0 [facility] [place] Comment on above: Performed By: #### H RTN ####[facility] ([id number])[address] [place] [address] Body temperature 98.6 [degF] Normal 37.0 [facility] Comment on above: Performed By: #### H RTN ####[facility] ([id number])[address] [place] [address] Glucose [Mass/Vol] 160 mg/dL High 65-99 [facility] Comment on above: Performed By: #### H RTN ####[facility] ([id number])[address] [place] [address] HCO3 (Bld) [Moles/Vol] 20.2 mmol/L Low 22-26 [facility] [place] Comment on above: Performed By: #### H RTN ####[facility] ([id number])[address] [place] [address] Hematocrit (Bld) [Volume fraction] 36 % Low 39-49 [facility] Comment on above: Performed By: #### H RTN ####[facility] ([id number])[address] [place] [address] Hemoglobin (Bld) [Mass/Vol] 11.8 g/dL Low 13.0-17.0 [facility] Comment on above: Performed By: #### H RTN ####[facility] ([id number])[address] [place] [address] INSP. O2 CONC. 100 % Normal [facility] Comment on above: Performed By: #### H RTN ####[facility] ([id number])[address] [facility] [address] Oxygen (Bld) [Partial pressure] 211 mm[Hg] High 80-100 [facility] Comment on above: Performed By: #### H RTN ####[facility] ([id number])[address] [facility] [place] [address] Oxygen saturation in Blood 99.8 % Normal >90 [facility] Comment on above: Performed By: #### H RTN ####[facility] ([id number])[address] [place] [address] PCO2 38.5 MMHG Normal 35-45 [facility] Comment on above: Performed By: #### H RTN ####[facility] ([id number])[address] [place] [address] pH (Bld) 7.328 [pH] Low 7.350-7.45 0 [facility] Comment on above: Performed By: #### H RTN ####[facility] ([id number])[address] [place] [address] Potassium [Moles/Vol] 5.6 mmol/L High 3.5-5.0 [facility] Comment on above: Performed By: #### H RTN ####[facility] ([id number])[address] [place] [address] SAMPLE SITE ANDRAE Normal [facility] [place] Comment on above: Performed By: #### H RTN ####[facility] ([id number])[address] [place] [address] SAMPLE TYPE Arterial Normal [facility] Comment on above: Performed By: #### H RTN ####[facility] ([id number])[address] [place] [address] CBC AND AUTO DIFFon 10-16-20 24 ABSOLUTE BASOPHIL 0.1 X10E9/L Normal 0.0-0.2 [facility] Comment on above: Performed By: #### C BCA, PINR, 86977-7, CMP, 43734-3, 2776-1, 46601-8 ####[facility] ([id number])[address] [facility], [address] [place] [address] Band form neutrophils/100 WBC (Bld) 8.0 % Normal [facility] Comment on above: Performed By: #### C BCA, PINR, 63605-2, CMP, 31665-6, 2776-, 04768-8 ####[facility] ([id number])[address], [address] [place] [address] Basophils/100 WBC (Bld) 1.0 % Normal [facility] Comment on above: Performed By: #### C BCA, PINR, 39398-7, CMP, 33569-4, 2777-1, 98392-0 ####[facility] ([id number])[address] [address] [place] [address] Erythrocyte distribution width (RBC) [Ratio] 13.5 % Normal 11.5-15.0 [facility] Comment on above: Performed By: #### C BCA, PINR, 86927-6, CMP, 01388-6, 7-1, 31566-2 ####[facility] ([id number])[address] [address] [place] [address] Hematocrit (Bld) [Volume fraction] 33.3 % Low 39-49 [facility] Comment on above: Performed By: #### C BCA, PINR, 38925-0, CMP, 70736-3, 7-1, 29563-1 ####[facility] ([id number])[address] [address] [place] [address] Hemoglobin (Bld) [Mass/Vol] 11.5 g/dL Low 13.0-17.0 [facility] Comment on above: Performed By: #### C BCA, PINR, 93069-8, CMP, 00195-5, 2777-1, 22471-1 ####[facility] ([id number])[address] [address] Lymphocytes (Bld) [#/Vol] 3.4 10*3/uL Normal 1.0-3.5 [facility] Comment on above: Performed By: #### C BCA, PINR, 85035-0, CMP, 40307-3, 2777-1, 03525-0 ####[facility] ([id number])[address], [address], [place] [address] Lymphocytes/100 WBC (Bld) 28.0 % Normal [facility] Comment on above: Performed By: #### C BCA, PINR, 09634-6, CMP, 80451-5, 2777-1, 42241-9 ####[facility] ([id number])[address], [address], [place] [address] MCH (RBC) [Entitic mass] 32.6 pg Normal 27-34 [facility] Comment on above: Performed By: #### C BCA, PINR, 40112-9, CMP, 00049-7, 2777-1, 42305-1 ####[facility] ([id number])[address], [address], [place] [address] MCHC (RBC) [Mass/Vol] 34.7 g/dL Normal 32-36 [facility] Comment on above: Performed By: #### C BCA, PINR, 44509-3, CMP, 14477-1, 2777-1, 50674-8 ####[facility] ([id number])[address], [address] [place] [address], [place] [address] MCV (RBC) [Entitic vol] 94 fL Normal 80-100 [facility] Comment on above: Performed By: #### C BCA, PINR, 57241-0, CMP, 79625-0, 2777-1, 18680-6 ####[facility] ([id number])[address], [address], [place] [address] Monocytes (Bld) [#/Vol] 0.2 10*3/uL Normal 0-0.9 [facility] Comment on above: Performed By: #### C BCA, PINR, 78604-3, CMP, 12794-7, 2777-1, 26786-7 ####[facility] ([id number])[address], [address], [place] [address] Monocytes/100 WBC (Bld) 2.0 % Normal [facility] Comment on above: Performed By: #### C BCA, PINR, 51301-4, CMP, 26699-0, 2777-1, 80492-3 ####[facility] ([id number])[address], [address], [place] [address] Neutrophils (Bld) [#/Vol] 8.3 10*3/uL High 1.5-6.6 [facility] Comment on above: Performed By: #### C BCA, PINR, 05218-8, CMP, 38286-5, 2777-1, 47149-5 ####[facility] ([id number])[address] [address] [place] [address] Platelet mean volume (Bld) [Entitic vol] 6.9 fL Low 7-12 [facility] Comment on above: Performed By: #### C BCA, PINR, 62925-4, CMP, 26888-8, 2777-1, 95788-6 ####[facility] ([id number])[address] [address] [place] [address] Platelets (Bld) [#/Vol] 185 10*3/uL Normal 150-450 [facility] Comment on above: Performed By: #### C BCA, PINR, 71062-4, CMP, 01508-1, 2777-1, 18824-8 ####[facility] ([id number])[address] [address] [place] [address] RBC COUNT 3.54 X10E12/L Low 4.10-5.70 [facility] Comment on above: Performed By: #### C BCA, PINR, 39353-3, CMP, 24962-7, 2777-1, 98322-7 ####[facility] ([id number])[address], [address] [place] [address] RBC morphology finding Nom (Bld) NORMAL Normal [facility] Comment on above: Performed By: #### C BCA, PINR, 46081-8, CMP, 55483-4, 2777-1, 05019-2 ####[facility] ([id number])[address], [address] [place] [address] SEG NEUTROPHIL 61.0 % Normal [facility] Comment on above: Performed By: #### C BCA, PINR, 83188-6, CMP, 29972-1, 7-1, 97661-0 ####[facility] ([id number])[address], [address] [address] WBC (Bld) [#/Vol] 12.0 10*3/uL High 4.0-11.0 [facility] Comment on above: Performed By: #### C BCA, PINR, 92788-2, CMP, 91917-0, 7-1, 80587-0 ####[facility] ([id number])[address], [address] [address] CBC auto differentialon 04-24 Band form neutrophils/100 WBC (Bld) 8 % [facility] Basophils (Bld) [#/Vol] 0.1 10*3/uL [facility] Basophils/100 WBC (Bld) 1 % [facility] Erythrocyte distribution width (RBC) [Ratio] 13.5 % 11.5 - 15.0 % [facility] Hematocrit (Bld) [Volume fraction] 33.3 % Low 39 - 49 % [facility] Hemoglobin (Bld) [Mass/Vol] 11.5 g/dL Low 13.0 - 17.0 g/dL [facility] Interpretation and review of laboratory results Abnormal [facility] Lymphocytes (Bld) [#/Vol] 3.4 10*3/uL [facility] Lymphocytes/100 WBC (Bld) 28 % [facility] MCH (RBC) [Entitic mass] 32.6 pg 27 - 34 pg [facility] MCHC (RBC) [Mass/Vol] 34.7 g/dL 32 - 36 g/dL [facility] MCV (RBC) [Entitic vol] 94 fL 80 - 100 fL [facility] Monocytes (Bld) [#/Vol] 0.2 10*3/uL [facility] Monocytes/100 WBC (Bld) 2 % [facility] Neutrophils (Bld) [#/Vol] 8.3 10*3/uL High [facility] Platelet mean volume (Bld) [Entitic vol] 6.9 fL Low 7 - 12 fL [facility] Platelets (Bld) [#/Vol] 185 10*3/uL [facility] Polymorphonuclear cells/100 WBC (Bld) NORMAL [facility] RBC (Bld) [#/Vol] 3.54 10*6/uL Low [facility] Segmented neutrophils/100 WBC (Bld) 61 % [facility] WBC corrected for nucl RBC Auto (Bld) [#/Vol] 12 High [facility] COMPREHENSIVE METABOLIC PANE Cecilio 05-09-2024 Albumin [Mass/Vol] 4.0 g/dL Normal 3.2-5.3 [facility] Comment on above: Performed By: #### C BCA, PINR, 65761-4, CMP, 12254-1, 7-1, 30355-2 ####[facility] ([id number])[address], [address] [place] [address] ALP [Catalytic activity/Vol] 109 U/L Normal 39-130 [facility] Comment on above: Performed By: #### C BCA, PINR, 91515-5, CMP, 26272-0, 2777-1, 51012-9 ####[facility] ([id number])[address] [facility], [address] [place] [address] ALT [Catalytic activity/Vol] 189 U/L High 0-40 [facility] Comment on above: Performed By: #### C BCA, PINR, 01972-0, CMP, 95256-4, 2777-1, 28061-9 ####[facility] ([id number])[address], [address] [place] [address] Anion gap [Moles/Vol] 9 mmol/L Normal 5-15 [facility] Comment on above: Performed By: #### C BCA, PINR, 13995-5, CMP, 68134-9, 2777-1, 32478-4 ####[facility] ([id number])[address] [place] [address] AST [Catalytic activity/Vol] 173 U/L High 0-41 [facility] Comment on above: Performed By: #### C BCA, PINR, 85011-4, CMP, 68682-6, 2777-1, 42030-8 ####[facility] ([id number])[address] [place] [address] Bilirubin [Mass/Vol] 1.1 mg/dL Normal 0.3-1.2 [facility] Comment on above: Performed By: #### C BCA, PINR, 93886-4, CMP, 67443-0, 2777-1, 18443-4 ####[facility] ([id number])[address] [place] [address] Calcium [Mass/Vol] 8.4 mg/dL Low 8.5-10.5 [facility] Comment on above: Performed By: #### C BCA, PINR, 08526-7, CMP, 33449-1, 2777-1, 60063-4 ####[facility] ([id number])[address] [place] [address] Chloride [Moles/Vol] 109 mmol/L Normal 98-109 [facility] Comment on above: Performed By: #### C BCA, PINR, 45751-6, CMP, 01442-2, 2777-1, 30293-1 ####[facility] ([id number])[address], [place] [address] CO2 [Moles/Vol] 23 mmol/L Normal 22-32 [facility] Comment on above: Performed By: #### C BCA, PINR, 23233-7, CMP, 97514-9, 2777-1, 53075-0 ####[facility] ([id number])[address], [address], [place] [address] Creatinine [Mass/Vol] 3.22 mg/dL High 0.60-1.30 [facility] Comment on above: Result Comment: METH OD TRACEABLE TO IDMS STANDARD Performed By: #### C BCA, PINR, 77281-3, CMP, 62449-1, 7-1, 66955-5 ####[facility] ([id number])[address], [place] [address] GFR/1.73 sq M.predicted among non-blacks MDRD (S/P/Bld) [Vol rate/Area] 20 mL/min/{1.73_m2} Low >59 [facility] Comment on above: Result Comment: Reported eGFR is based on the CKD-EPI 2020 equation that does not use a race coefficient. Performed By: #### C BCA, PINR, 07795-0, CMP, 09189-7, 7-1, 64176-0 ####[facility] ([id number])[address], [place] [address] Glucose [Mass/Vol] 160 mg/dL High 65-99 [facility] Comment on above: Performed By: #### C BCA, PINR, 44788-1, CMP, 84402-3, 7-1, 79018-5 ####[facility] ([id number])[address] [place] [address] Potassium [Moles/Vol] 5.0 mmol/L Normal 3.5-5.0 [facility] Comment on above: Performed By: #### C BCA, PINR, 48274-4, CMP, 03883-3, 2777-1, 48291-4 ####[facility] ([id number])[address], [address] [place] [address] Protein [Mass/Vol] 5.7 g/dL Low 6.0-8.0 [facility] Comment on above: Performed By: #### C BCA, PINR, 20050-9, CMP, 47426-5, 2777-1, 74778-1 ####[facility] ([id number])[address], [address] [place] [id number] Sodium [Moles/Vol] 141 mmol/L Normal 134-146 [facility] Comment on above: Performed By: #### C BCA, PINR, 04057-3, CMP, 82150-4, 7-1, 51101-0 ####[facility] ([id number])[address], [address] [place] [address]14 Urea nitrogen [Mass/Vol] 37 mg/dL High 5-27 [facility] Comment on above: Performed By: #### C BCA, PINR, 07784-5, CMP, 70254-9, 7-1, 17473-0 ####[facility] ([id number])[address], [address] [address] Comprehensive metabolic pane cecilio 05-09-2024 Albumin [Mass/Vol] 4 g/dL 3.2 - 5.3 g/dL [facility] ALP [Catalytic activity/Vol] 109 U/L 39 - 130 U/L [facility] ALT No additional P-5'-P [Catalytic activity/Vol] 189 U/L High 0 - 40 U/L [facility] Anion gap [Moles/Vol] 9 mmol/L 5 - 15 mmol/L [facility] AST [Catalytic activity/Vol] 173 U/L High 0 - 41 U/L [facility] Bilirubin [Mass/Vol] 1.1 mg/dL 0.3 - 1.2 mg/dL [facility] Calcium [Mass/Vol] 8.4 mg/dL Low 8.5 - 10. 5 mg/dL [facility] Chloride [Moles/Vol] 109 mmol/L 98 - 109 mmol/L [facility] CO2 [Moles/Vol] 23 mmol/L 22 - 32 mmol/L [facility] Creatinine [Mass/Vol] 3.22 mg/dL High 0.60 - 1.30 mg/dL [facility] eGFR (CKD-EPI)non-race dependent 20 Low - PINF [facility] Glucose [Mass/Vol] 160 mg/dL High 65 - 99 mg/dL [facility] Interpretation and review of laboratory results Abnormal [facility] Potassium [Moles/Vol] 5 mmol/L 3.5 - 5.0 mmol/L [facility] Protein [Mass/Vol] 5.7 g/dL Low 6.0 - 8.0 g/dL [facility] Sodium [Moles/Vol] 141 mmol/L 134 - 146 mmol/L [facility] Urea nitrogen [Mass/Vol] 37 mg/dL High 5 - 27 mg/dL [facility] Creatinine (Bld) [Mass/Vol]o n 05-09-2024 Creatinine [Mass/Vol] ORDERED IN ERROR 0.7 - 1.2 mg/dL [facility] eGFR (CKD-EPI)non-race dependent ORDERED IN ERROR - PINF [facility] GFR/1.73 sq M.predicted among blacks MDRD (S/P/Bld) [Vol rate/Area] ORDERED IN ERROR - PINF [facility] GFR/1.73 sq M.predicted among non-blacks MDRD (S/P/Bld) [Vol rate/Area] ORDERED IN ERROR - PINF [facility] eGFR (CKD-EPI) NON-RACE DEPENDENT ORDERED IN ERROR Normal >59 [facility] Comment on above: Result Comment: ACCO UNT CREDITED Corrected on 05/09 AT 1431: Previously reported as 19 Reported eGFR is based on the CKD EPI 2020 equation that does not use a race coefficient. Performed By: #### 6 298-4, 2338-0, , 79764-5 ####[facility] ([id number])2142 [place] [address] GFR Amer ORDERED IN ERROR Normal >59 Pr [facility] Comment on above: Result Comment: ACCO UNT CREDITED Performed By: #### 6 298-4, 2338-0, 88491-9, 76894-4 ####[facility] ([id number])2142 [place] [address] GFR non Amer ORDERED IN ERROR Normal >59 [facility] Comment on above: Result Comment: ACCO UNT CREDITED Performed By: #### 6 298-4, 2338-0, , 82026-4 ####[facility] ([id number])[address]141 [place] [address] PORTABLE CREATININE ORDERED IN ERROR Normal 0.7-1.2 [facility] Comment on above: Result Comment: ACCO UNT CREDITED Corrected on 05/09 AT 1431: Previously reported as 3.4 Performed By: #### 6 298-4, 2338-0, , 64646-2 ####[facility] ([id number])2141 [place] [address] Crossmatch RBC:on 05-09-2024 BB Type Barcode 6200 [facility] Blood component type [id number] [facility] Crossmatch Compatible [facility] Expiration Date [facility] Status of unit SELECTED [facility] Unit ABO A [facility] Unit number [id number] [facility] Unit RH Positive [facility] Glucose (Bld) [Mass/Vol]on 1 Glucose [Mass/Vol] 94 mg/dL 65 - 99 mg/dL [facility] Glucose [Mass/Vol] 94 mg/dL Normal 65-99 [facility] Comment on above: Performed By: #### 6 298-4, 2338-0, 07323-2, 35118-1 ####[facility] ([id number])[address] [place] [address] Glucose Glucometer (BldC) [M ass/Vol]on 05-09-2024 Glucose [Mass/Vol] 177 mg/dL High 65 - 99 mg/dL [facility] Interpretation and review of laboratory results Abnormal [facility] Glucose [Mass/Vol] 177 mg/dL High 65-99 [facility] HGB AND HCTon 05-09-2024 Hematocrit (Bld) [Volume fraction] 33.4 % Low 39-49 [facility] Comment on above: Performed By: #### H H, 99869-4 ####[facility] ([id number])[address], [address] [place] [address] Hemoglobin (Bld) [Mass/Vol] 11.3 g/dL Low 13.0-17.0 [facility] Comment on above: Performed By: #### H H, 18563-0 ####[facility] ([id number])[address], [place] [address] Hematocrit (Bld) [Volume fra ction]on 05-09-2024 Interpretation and review of laboratory results Abnormal [facility] Hemoglobin and hematocrit, b loodon 05-09-2024 Interpretation and review of laboratory results Abnormal [facility] Lactate (Bld) [Moles/Vol]on 05-09-2024 RAPID LACTIC ACID 1.8 mmol/L Normal 0.4-2.0 [facility] Comment on above: Performed By: #### 3 2693-4 ####[facility] ([id number])2141 [place] [address] Lactate [Moles/Vol] 0.7 mmol/L 0.4 - 2. 0 mmol/L [facility] Lactate [Moles/Vol] 0.5 mmol/L 0.4 - 2. 0 mmol/L [facility] RAPID LACTIC ACID 0.7 mmol/L Normal 0.4-2.0 [facility] Comment on above: Performed By: #### 3 2693-4 ####[facility] ([id number])[address] [place] [address] RAPID LACTIC ACID 0.5 mmol/L Normal 0.4-2.0 [facility] Comment on above: Performed By: #### 3 2693-4 ####[facility] ([id number])[address] [place] [address] Lactate (P mendoza) [Moles/Vol]o n 05-09-2024 LACTATE W/REFLEX 0.8 mmol/L Normal 0.4-2.0 [facility] Comment on above: Result Comment: Result did not trigger repeat Lactate, re-order if needed. Performed By: #### H H, 91902-6 ####[facility] ([id number])[address] [facility], [address] [place] [address] [facility] LACTATE W/REFLEX 0.7 mmol/L Normal 0.4-2.0 [facility] Comment on above: Result Comment: Result did not trigger repeat Lactate, re-order if needed. Performed By: #### C BCA, PINR, 92639-5, CMP, 59258-2, 2776-1, 18047-8 ####[facility] ([id number])[address], [place] [address] Lactate w/ Reflexon 05-09-20 Lactate (P mendoza) [Moles/Vol] 0.7 mmol/L 0.4 - 2.0 mmol/L [facility] MAGNESIUMon 05-09-2024 Magnesium [Mass/Vol] 2.6 mg/dL Normal 1.8-2.6 [facility] Comment on above: Performed By: #### C BCA, PINR, 00198-2, CMP, 61276-1, 2776-1, 74456-8 ####[facility] ([id number])[address], [address] [place] [address] Magnesiumon 05-09-2024 Magnesium [Mass/Vol] 2.6 mg/dL 1.8 - 2.6 mg/dL [facility] Natriuretic peptide B [Mass/ Vol]on 05-09-2024 Interpretation and review of laboratory results Abnormal [facility] Natriuretic peptide B (Bld) [Mass/Vol] 289 pg/mL High NINF - 100.0 pg/mL [facility] Natriuretic peptide B (Bld) [Mass/Vol] 289 pg/mL High <100.0 [facility] Comment on above: Performed By: #### C MIRIAM COLE, 64737-4, CMP, 69235-2, 7-, 54147-4 ####[facility] ([id number])[address] [facility], [address] [place] [address] No Panel Informationon 05-[address] [facility] PHOSPHORUSon 05-09-2024 Phosphate [Mass/Vol] 3.6 mg/dL Normal 2.4-4.9 [facility] Comment on above: Performed By: #### C MIRIAM COLE, 69216-1, CMP, 39597-8, 2776-, 37147-9 ####[facility] ([id number])[address] [facility], [address] [place] [address] POCT ABG Rapid K GLU HHon Arterial patency Wrist artery --pre arterial puncture [facility] Base deficit (Bld) [Moles/Vol] 5.8 mmol/L High [facility] CO2 (Bld) [Partial pressure] 38.5 mm[Hg] [facility] Glucose [Mass/Vol] 160 mg/dL High 65 - 99 mg/dL [facility] HCO3 (Bld) [Moles/Vol] 20.2 mmol/L Low [facility] Hematocrit (Bld) [Volume fraction] 36 % Low 39 - 49 % [facility] Hemoglobin (Bld) [Mass/Vol] 11.8 g/dL Low 13.0 - 17.0 g/dL [facility] Interpretation and review of laboratory results Abnormal [facility] Oxygen (Bld) [Partial pressure] 211 mm[Hg] High [facility] Oxygen/Inspired gas setting [Volume Fraction] Ventilator 100 % [facility] pH (Bld) 7.328 [pH] Low 7.350 - 7.450 [facility] Potassium [Moles/Vol] 5.6 mmol/L High 3.5 - 5.0 mmol/L [facility] Specimen site Narrative [facility] Specimen type Nom (Spec) Arterial [facility] POCT ABG Rapid K GLU ICA HHo n 05-09-2024 Arterial patency Wrist artery --pre arterial puncture [facility] Base deficit (Bld) [Moles/Vol] 3.1 mmol/L High [facility] Calcium.ionized ISE [Moles/Vol] 4.7 mg/dL 4.5 - 5.3 mg/dL [facility] CO2 (Bld) [Partial pressure] 37.9 mm[Hg] [facility] Glucose [Mass/Vol] 205 mg/dL High 65 - 99 mg/dL [facility] HCO3 (Bld) [Moles/Vol] 22.1 mmol/L [facility] Hematocrit (Bld) [Volume fraction] 31 % Low 39 - 49 % [facility] Hemoglobin (Bld) [Mass/Vol] 10.1 g/dL Low 13.0 - 17.0 g/dL [facility] Interpretation and review of laboratory results Abnormal [facility] Oxygen (Bld) [Partial pressure] 184 mm[Hg] High [facility] Oxygen/Inspired gas setting [Volume Fraction] Ventilator 100 % [facility] pH (Bld) 7.375 [pH] 7.350 - 7.450 [facility] Potassium [Moles/Vol] 4.5 mmol/L 3.5 - 5.0 mmol/L [facility] Specimen site Narrative [facility] Specimen type Nom (Spec) Arterial [facility] Arterial patency Wrist artery --pre arterial puncture [facility] Base deficit (Bld) [Moles/Vol] 5.5 mmol/L High [facility] Calcium.ionized ISE [Moles/Vol] 4.4 mg/dL Low 4.5 - 5.3 mg/dL [facility] CO2 (Bld) [Partial pressure] 35.8 mm[Hg] [facility] Glucose [Mass/Vol] 154 mg/dL High 65 - 99 mg/dL [facility] HCO3 (Bld) [Moles/Vol] 20.1 mmol/L Low [facility] Hematocrit (Bld) [Volume fraction] 36 % Low 39 - 49 % [facility] Hemoglobin (Bld) [Mass/Vol] 11.7 g/dL Low 13.0 - 17.0 g/dL [facility] Interpretation and review of laboratory results Abnormal [facility] Oxygen (Bld) [Partial pressure] 206 mm[Hg] High [facility] Oxygen/Inspired gas setting [Volume Fraction] Ventilator 100 % [facility] pH (Bld) 7.357 [pH] 7.350 - 7.450 [facility] Potassium [Moles/Vol] 6.8 mmol/L Critically high 3.5 - 5.0 mmol/L [facility] Specimen site [facility] Specimen type Nom (Spec) Arterial [facility] Arterial patency Wrist artery --pre arterial puncture [facility] Base deficit (Bld) [Moles/Vol] 3.6 mmol/L High [facility] Calcium.ionized ISE [Moles/Vol] 4.6 mg/dL 4.5 - 5.3 mg/dL [facility] CO2 (Bld) [Partial pressure] 38 mm[Hg] [facility] Glucose [Mass/Vol] 91 mg/dL 65 - 99 mg/dL [facility] HCO3 (Bld) [Moles/Vol] 21.8 mmol/L Low [facility] Hematocrit (Bld) [Volume fraction] 36 % Low 39 - 49 % [facility] Hemoglobin (Bld) [Mass/Vol] 11.6 g/dL Low 13.0 - 17.0 g/dL [facility] Interpretation and review of laboratory results Abnormal [facility] Oxygen (Bld) [Partial pressure] 223 mm[Hg] High [facility] Oxygen/Inspired gas setting [Volume Fraction] Ventilator 100 % [facility] pH (Bld) 7.367 [pH] 7.350 - 7.450 [facility] Potassium [Moles/Vol] 4.5 mmol/L 3.5 - 5.0 mmol/L [facility] Specimen site Narrative ANDRAE [facility] Specimen type Nom (Spec) Arterial [facility] POCT hematocriton 05-09-2024 Hematocrit (Bld) [Volume fraction] 33 % Low 39 - 49 % [facility] PORTABLE HEMATOCRITon 2023 Hematocrit (Bld) [Volume fraction] 33 % Low 39-49 [facility] Comment on above: Performed By: #### 6 298-4, 2339-0, 90612-0, 21887-8 ####[facility] ([id number])[address] [place] [address] PORTABLE PROTIMEon PORTABLE INR 1.1 Normal 0.8-1.2 [facility] Comment on above: Performed By: #### I PRO ####[facility] ([id number])[address] [place] [address] PROTIME AND INRon 05-09-2024 INR Coag (PPP) [Relative time] 1.1 {INR} Normal 0.8-1.1 [facility] Comment on above: Performed By: #### C BCA, PINR, 77367-3, CMP, 08826-9, 2776-1, 90380-3 ####[facility] ([id number])2130 [facility], [address] [address] PT Coag (PPP) [Time] 13.1 s Normal 9.8-13.2 [facility] Comment on above: Performed By: #### C BCA, PINR, 12953-5, CMP, 06353-6, 2776-1, 78023-1 ####[facility] ([id number])[address] [facility], [address], [place] [address] Phosphoruson 05-09-2024 Phosphate [Mass/Vol] 3.6 mg/dL 2.4 - 4.9 mg/dL [facility] Portable Protimeon INR Coag (Bld) [Relative time] 1.1 {INR} 0.8 - 1.2 [facility] Potassium (Bld) [Moles/Vol]o n 05-09-2024 Potassium [Moles/Vol] 4.9 mmol/L 3.5 - 5.0 mmol/L [facility] Potassium [Moles/Vol] 4.9 mmol/L Normal 3.5-5.0 [facility] Comment on above: Performed By: #### 6 298-4, 2339-0, 65026-7, 43507-0 ####[facility] ([id number])[address] [place] [address] Protime & INRon 05-09-2024 INR Coag (PPP) [Relative time] 1.1 {INR} [facility] PT Coag (PPP) [Time] 13.1 s [facility] RAPID CARDIACon 05-09-2024 WILLARD'S TEST Normal [facility] Comment on above: Performed By: #### A FAB5 ####[facility] ([id number])[address] [place] [address] BASE,DEFICIT 3.1 MMOL/L High 0.0-2.0 [facility] Comment on above: Performed By: #### A FAB5 ####[facility] ([id number])2[address] [place] [address] Body temperature 98.6 [degF] Normal 37.0 [facility] Comment on above: Performed By: #### A FAB5 ####[facility] ([id number])[address] [place] [address] Glucose [Mass/Vol] 205 mg/dL High 65-99 [facility] Comment on above: Performed By: #### A FAB5 ####[facility] ([id number])[address] [place] [address] HCO3 (Bld) [Moles/Vol] 22.1 mmol/L Normal 22-26 [facility] Comment on above: Performed By: #### A FAB5 ####[facility] ([id number])2141 [place] [address] Hematocrit (Bld) [Volume fraction] 31 % Low 39-49 [facility] Comment on above: Performed By: #### A FAB5 ####[facility] ([id number])[address] [place] [address] Hemoglobin (Bld) [Mass/Vol] 10.1 g/dL Low 13.0-17.0 [facility] Comment on above: Performed By: #### A FAB5 ####[facility] ([id number])[address] [facility] [place] [address] INSP. O2 CONC. 100 % Normal [facility] Comment on above: Performed By: #### A FAB5 ####[facility] ([id number])[address] [facility] [place] [address] IONIZED CALCIUM 4.7 mg/dL Normal 4.5-5.3 [facility] Comment on above: Performed By: #### A FAB5 ####[facility] ([id number])[address] [facility] [place] [address] Oxygen (Bld) [Partial pressure] 184 mm[Hg] High 80-100 [facility] Comment on above: Performed By: #### A FAB5 ####[facility] ([id number])[address] [facility] [place] [place] [address] Oxygen saturation in Blood 99.7 % Normal >90 [facility] Comment on above: Performed By: #### A FAB5 ####[facility] ([id number])[address] [place] [address] PCO2 37.9 MMHG Normal 35-45 [facility] Comment on above: Performed By: #### A FAB5 ####[facility] ([id number])[address] [place] [address] pH (Bld) 7.375 [pH] Normal 7.350-7.45 0 [facility] Comment on above: Performed By: #### A FAB5 ####[facility] ([id number])[address] [place] [address] Potassium [Moles/Vol] 4.5 mmol/L Normal 3.5-5.0 [facility] Comment on above: Performed By: #### A FAB5 ####[facility] ([id number])[address] [place] [address] SAMPLE SITE ANDRAE Normal [facility] Comment on above: Performed By: #### A FAB5 ####[facility] ([id number])2[address] [place] [address] SAMPLE TYPE Arterial Normal [facility] Comment on above: Performed By: #### A FAB5 ####[facility] ([id number])[address] [place] [address] WILLARD'S TEST Normal [facility] Comment on above: Performed By: #### A FAB5 ####[facility] ([id number])[address] [place] [address] BASE,DEFICIT 5.5 MMOL/L High 0.0-2.0 [facility] Comment on above: Performed By: #### A FAB5 ####[facility] ([id number])[address] [place] [address] Body temperature 98.6 [degF] Normal 37.0 [facility] Comment on above: Performed By: #### A FAB5 ####[facility] ([id number])[address] [facility] [place] [address] Glucose [Mass/Vol] 154 mg/dL High 65-99 [facility] Comment on above: Performed By: #### A FAB5 ####[facility] ([id number])[address] [facility] [address] HCO3 (Bld) [Moles/Vol] 20.1 mmol/L Low 22-26 [facility] Comment on above: Performed By: #### A FAB5 ####[facility] ([id number])[address] [facility] [address] Hematocrit (Bld) [Volume fraction] 36 % Low 39-49 [facility] Comment on above: Performed By: #### A FAB5 ####[facility] ([id number])[address] [facility] [address] Hemoglobin (Bld) [Mass/Vol] 11.7 g/dL Low 13.0-17.0 [facility] Comment on above: Performed By: #### A FAB5 ####[facility] ([id number])[address] [facility] [place] [address] INSP. O2 CONC. 100 % Normal [facility] Comment on above: Performed By: #### A FAB5 ####[facility] ([id number])[address] [facility] [address] IONIZED CALCIUM 4.4 mg/dL Low 4.5-5.3 [facility] Comment on above: Performed By: #### A FAB5 ####[facility] ([id number])[address] [place] [address] Oxygen (Bld) [Partial pressure] 206 mm[Hg] High 80-100 [facility] Comment on above: Performed By: #### A FAB5 ####[facility] ([id number])[address] [place] [address] Oxygen saturation in Blood 99.8 % Normal >90 [facility] Comment on above: Performed By: #### A FAB5 ####[facility] ([id number])[address] [place] [address] PCO2 35.8 MMHG Normal 35-45 [facility] Comment on above: Performed By: #### A FAB5 ####[facility] ([id number])[address] [place] [address] pH (Bld) 7.357 [pH] Normal 7.350-7.45 0 [facility] Comment on above: Performed By: #### A FAB5 ####[facility] ([id number])[address] [place] [address] Potassium [Moles/Vol] 6.8 mmol/L Critically high 3.5-5.0 [facility] Comment on above: Performed By: #### A FAB5 ####[facility] ([id number])[address] [place] [address] SAMPLE SITE ANDRAE Normal [facility] Comment on above: Performed By: #### A FAB5 ####[facility] ([id number])[address] [place] [address] SAMPLE TYPE Arterial Normal [facility] Comment on above: Performed By: #### A FAB5 ####[facility] ([id number])[address] [place] [address] WILLARD'S TEST Normal [facility] Comment on above: Performed By: #### A FAB5 ####[facility] ([id number])[address] [place] [address] BASE,DEFICIT 3.6 MMOL/L High 0.0-2.0 [facility] Comment on above: Performed By: #### A FAB5 ####[facility] ([id number])[address] [place] [address] Body temperature 98.6 [degF] Normal 37.0 [facility] Comment on above: Performed By: #### A FAB5 ####[facility] ([id number])[address] [place] [address] Glucose [Mass/Vol] 91 mg/dL Normal 65-99 [facility] Comment on above: Performed By: #### A FAB5 ####[facility] ([id number])[address] [place] [address] HCO3 (Bld) [Moles/Vol] 21.8 mmol/L Low 22-26 [facility] Comment on above: Performed By: #### A FAB5 ####[facility] ([id number])[address] [place] [address] Hematocrit (Bld) [Volume fraction] 36 % Low 39-49 [facility] Comment on above: Performed By: #### A FAB5 ####[facility] ([id number])2141 [place] [address] Hemoglobin (Bld) [Mass/Vol] 11.6 g/dL Low 13.0-17.0 [facility] Comment on above: Performed By: #### A FAB5 ####[facility] ([id number])[address] [place] [address] INSP. O2 CONC. 100 % Normal [facility] Comment on above: Performed By: #### A FAB5 ####[facility] ([id number])[address] [place] [address] IONIZED CALCIUM 4.6 mg/dL Normal 4.5-5.3 [facility] Comment on above: Performed By: #### A FAB5 ####[facility] ([id number])2[address] [place] [address] Oxygen (Bld) [Partial pressure] 223 mm[Hg] High 80-100 [facility] Comment on above: Performed By: #### A FAB5 ####[facility] ([id number])[address] [place] [address] Oxygen saturation in Blood 99.9 % Normal >90 [facility] Comment on above: Performed By: #### A FAB5 ####[facility] ([id number])[address] [place] [address] PCO2 38.0 MMHG Normal 35-45 [facility] Comment on above: Performed By: #### A FAB5 ####[facility] ([id number])[address] [place] [address] pH (Bld) 7.367 [pH] Normal 7.350-7.45 0 [facility] Comment on above: Performed By: #### A FAB5 ####[facility] ([id number])[address] [place] [address] Potassium [Moles/Vol] 4.5 mmol/L Normal 3.5-5.0 [facility] Comment on above: Performed By: #### A FAB5 ####[facility] ([id number])[address] [place] [address] SAMPLE SITE ANDRAE Normal [facility] Comment on above: Performed By: #### A FAB5 ####[facility] ([id number])[address] [place] [address] SAMPLE TYPE Arterial Normal [facility] Comment on above: Performed By: #### A FAB5 ####[facility] ([id number])2[address] [place] [address] Surgical Pathologyon 024 Surgical Pathology Normal [facility] Comment on above: Result Comment: [facility] [address] [place] [address] Surgical Pathology Consultation ADDENDUM [place] Patient Name:ZEV CRYSTAL:1955 (Age: 68)Gender:MTaken:4Reported:4Physician(s):Jeffrey Mcfadden MD ([phone])Copy To: Rec. #:[id number]: #[id number] Final Pathologic Diagnosis 1. 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 Size: ~ 2.5 cm in length. Inked proximal margin (stapled margin) is very close, < 1mm. Inked distal margin is not involved. 2. Hepatic artery lymph nodes: No metastatic carcinoma identified in six lymph nodes (0/6). ATYPICAL LYMPHOID INFILTRATE, SUSPICIOUS FOR B-CELL LYMPHOMA. Final diagnosis regarding lymphoma will be issued in an addendum after further work-up 3. Portal lymph node: No metastatic carcinoma identified in nine lymph nodes (0/9). ATYPICAL LYMPHOID INFILTRATE, SUSPICIOUS FOR B-CELL LYMPHOMA. Final diagnosis regarding lymphoma will be issued in an addendum after further work-up 4. 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 Size: at least 4 cm in length. Margins are not involved. Benign duodenum and stomach. No metastatic carcinoma identified in twenty-four lymph nodes (0/24). ATYPICAL LYMPHOID INFILTRATE, SUSPICIOUS FOR B-CELL LYMPHOMA. Final diagnosis regarding lymphoma will be issued in an addendum after further work-up 5. Final bile duct margin: Not involved. Internal consultation with Dr. Collins (regarding the IPMN) and this is the consensus diagnosis. Comment A CKAE1/AE3 immunostain was performed on several lymph nodes blocks and is negative, supportive of no metastatic carcinoma identified. Report Electronically Signed Out cjb/4Celesjulio cesar Barker MD Preliminary Report ([facility]) Date Reported: 05/16/2024 1. 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 Size: ~ 2.5 cm in length. Inked proximal margin (stapled margin) is very close, < 1mm. Inked distal margin is not involved. 2. Hepatic artery lymph nodes: No metastatic carcinoma identified in six lymph nodes (0/6). 3. Portal lymph nodes: No metastatic carcinoma identified in nine lymph nodes (0/9). 4. 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 Size: at least 4 cm in length. Margins are not involved. Benign duodenum and stomach. No metastatic carcinoma identified in twenty-four lymph nodes (0/24). 5. Final bile duct margin: Not involved. Inernal consultation with Dr. Collins and this is the consensus diagnosis. Pending a few additional stains on lymph nodes. A CKAE1/AE3 immunostain is performed on several lymph nodes and is negative, supportive of no metastatic carcinoma identified. All controls are adequate. Electronically Signed Out CJB Addendum (PHS) Date Reported: 05/21/2024 2. Hepatic artery lymph nodes, biopsy: B-cell lymphoma. 3. Portal lymph nodes, biopsy: B-cell lymphoma. 4.. Pancreatic lymph nodes, biopsy: B-cell lymphoma (see comment). Comment: The lymph node architecture is completely effaced and replaced by a diffuse lymphoid infiltrate composed of monotonous small lymphocytes with uniform round and slightly irregular nuclei, dense nuclear chromatin and frequent small distinct nucleoli. No large cell component is demonstrated. Immunostains are performed with appropriate controls. The lymphoid cells are diffusely and strongly positive for CD20, CD5 and CD43. There is a smaller population of T-cells highlighted by CD3. CD10 and cyclin D1 are negative. Ki-67 demonstrates a markedly variable proliferation index ranging from 5 to 40%. 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 The negative cyclin D1 argues against the diagnosis of mantle cell lymphoma. However, the paraffin block will be sent for t(11;14)-CCND1/IGH translocation analysis and results will be reported in an addendum. An immunostain for SOX11 will be performed at [facility] and results will be reported in an addendum. Electronically Signed Out Andre Childers MD Addendum ([facility]) Date Reported: 05/29/2024 Results of B-cell Lymphoma, FISH, Tissue dated 05/28/2024 are received from [facility], [address] [place] [address] and are as follows: Result Summary: Negative Interpretation: No fusion of CCND1 and IGH was observed. Clinical and pathologic cor (more content not included)... [facility] No Panel Informationon 04-30 Type of biopsy: villarreal ential Informed consent: discussed and consent obtained Informed consent comment: The risks and benefits of the biopsy were discussed. Risks include but are not limited to bleeding, infection, scarring, pain, and nerve damage. An opportunity to ask questions prior to the procedure was permitted and all questions were answered. Patient was prepped and draped in usual sterile fashion: area cleansed with alcohol. Anesthesia: the lesion was anesthetized in a standard fashion Anesthetic: 1% lidocaine w/ epinephrine 1-100,000 buffered w/ 8.4% NaHCO3 Instrument used: DermaBlade Hemostasis achieved with: electrodesiccation Outcome: patient tolerated procedure well Outcome comment: The specimen was placed in a prelabeled formalin container to be sent for pathology Post-procedure details: sterile dressing applied and wound care instructions given Post-procedure details comment: Emphasized need to contact clinic for any signs of infection, uncontrollable bleeding, or complications. Dressing type: bandage Additional details: Photo taken Amount of lidocaine used: 1.0 cc [facility] [employer] NOM Healthcar e NOMS Healthcar e ECG 12 leadon 04-26-2024 TRACEMASTERVUE [facility] APTTon 04-25-2024 aPTT Coag (PPP) [Time] 41 s High [facility] CBCon 04-25-2024 Erythrocyte distribution width (RBC) [Ratio] 13.6 % 11.5 - 15.0 % [facility] Hematocrit (Bld) [Volume fraction] 36.3 % Low 39 - 49 % [facility] Hemoglobin (Bld) [Mass/Vol] 12.5 g/dL Low 13.0 - 17.0 g/dL [facility] Interpretation and review of laboratory results Abnormal [facility] MCH (RBC) [Entitic mass] 32.8 pg 27 - 34 pg [facility] MCHC (RBC) [Mass/Vol] 34.4 g/dL 32 - 36 g/dL [facility] MCV (RBC) [Entitic vol] 95 fL 80 - 100 fL [facility] Platelet mean volume (Bld) [Entitic vol] 7.2 fL 7 - 12 fL [facility] Platelets (Bld) [#/Vol] 196 10*3/uL [facility] RBC (Bld) [#/Vol] 3.80 10*6/uL Low [facility] WBC corrected for nucl RBC Auto (Bld) [#/Vol] 7.1 [facility] COMPLETE BLOOD COUNTon 04-25 Erythrocyte distribution width (RBC) [Ratio] 13.6 % Normal 11.5-15.0 [facility] [place] Comment on above: Performed By: #### P INR, 47937-6, CMP, CBC, HA1C ####[facility] ([id number])[address] [facility], [address] [place] [address] Hematocrit (Bld) [Volume fraction] 36.3 % Low 39-49 [facility] [place] Comment on above: Performed By: #### P INR, 30587-4, CMP, CBC, HA1C ####[facility] ([id number])[address], [address] [place] [address] Hemoglobin (Bld) [Mass/Vol] 12.5 g/dL Low 13.0-17.0 [facility] [place] Comment on above: Performed By: #### P INR, 00539-7, CMP, CBC, HA1C ####[facility] ([id number])[address], [address] [place] [address] MCH (RBC) [Entitic mass] 32.8 pg Normal 27-34 [facility] [place] Comment on above: Performed By: #### P INR, 39986-5, CMP, CBC, HA1C ####[facility] ([id number])[address], [address] [place] [address] MCHC (RBC) [Mass/Vol] 34.4 g/dL Normal 32-36 [facility] [place] Comment on above: Performed By: #### P INR, 33733-7, CMP, CBC, HA1C ####[facility] ([id number])[address], [address] [place] [address] MCV (RBC) [Entitic vol] 95 fL Normal 80-100 [facility] [place] Comment on above: Performed By: #### P INR, 31541-6, CMP, CBC, HA1C ####[facility] ([id number])[address], [address] [place] [address] Platelet mean volume (Bld) [Entitic vol] 7.2 fL Normal 7-12 [facility] [place] Comment on above: Performed By: #### P INR, 14861-6, CMP, CBC, HA1C ####[facility] ([id number])[address], [address], [place] [address] Platelets (Bld) [#/Vol] 196 10*3/uL Normal 150-450 [facility] [place] Comment on above: Performed By: #### P INR, 53401-5, CMP, CBC, HA1C ####[facility] ([id number])[address], [address] [place] [address] RBC COUNT 3.80 X10E12/L Low 4.10-5.70 [facility] [place] Comment on above: Performed By: #### P INR, 93146-5, CMP, CBC, HA1C ####[facility] ([id number])[address], [address] [place] [address] WBC (Bld) [#/Vol] 7.1 10*3/uL Normal 4.0-11.0 [facility] Comment on above: Performed By: #### P INR, 96470-2, CMP, CBC, HA1C ####[facility] ([id number])[address], [address] [place] [address] COMPREHENSIVE METABOLIC PANE Cecilio 04-25-2024 Albumin [Mass/Vol] 4.4 g/dL Normal 3.2-5.3 [facility] Comment on above: Performed By: #### P INR, 44358-5, CMP, CBC, HA1C #### [facility] ([id number]) [address], [address] [address] ALP [Catalytic activity/Vol] 119 U/L Normal 39-130 [facility] [place] Comment on above: Performed By: #### P INR, 52095-3, CMP, CBC, HA1C #### [facility] ([id number]) [address] [address] [place] [address] ALT [Catalytic activity/Vol] 13 U/L Normal 0-40 [facility] [place] Comment on above: Performed By: #### P INR, 94667-4, CMP, CBC, HA1C #### [facility] ([id number]) [address], [address] [place] [address] Anion gap [Moles/Vol] 11 mmol/L Normal 5-15 [facility] [place] Comment on above: Performed By: #### P INR, 64772-2, CMP, CBC, HA1C #### [facility] ([id number]) [address], [address] [place] [address] AST [Catalytic activity/Vol] 14 U/L Normal 0-41 [facility] [place] Comment on above: Performed By: #### P INR, 01882-2, CMP, CBC, HA1C #### [facility] ([id number]) [address], [address] [place] [address] Bilirubin [Mass/Vol] 0.6 mg/dL Normal 0.3-1.2 [facility] [place] Comment on above: Performed By: #### P INR, 64753-6, CMP, CBC, HA1C #### [facility] ([id number]) [address], [address] [place] [address] Calcium [Mass/Vol] 9.0 mg/dL Normal 8.5-10.5 [facility] Comment on above: Performed By: #### P INR, 37154-0, CMP, CBC, HA1C #### [facility] ([id number]) [address], [address] [place] [address] Chloride [Moles/Vol] 105 mmol/L Normal 98-109 [facility] [place] Comment on above: Performed By: #### P INR, 07771-4, CMP, CBC, HA1C #### [facility] ([id number]) [address], [address] [place] [address] CO2 [Moles/Vol] 25 mmol/L Normal 22-32 [facility] [place] Comment on above: Performed By: #### P INR, 61995-0, CMP, CBC, HA1C #### [facility] ([id number]) [address], [address] [place] [address] Creatinine [Mass/Vol] 3.63 mg/dL High 0.60-1.30 [facility] [place] Comment on above: Result Comment: METH OD TRACEABLE TO IDMS STANDARD Performed By: #### P INR, 09889-7, CMP, CBC, HA1C #### [facility] ([id number]) [address], [address] [place] [address] GFR/1.73 sq M.predicted among non-blacks MDRD (S/P/Bld) [Vol rate/Area] 18 mL/min/{1.73_m2} Low >59 [facility] [place] Comment on above: Result Comment: Reported eGFR is based on the CKD-EPI 2020 equation that does not use a race coefficient. Performed By: #### P INR, 85604-7, CMP, CBC, HA1C #### [facility] ([id number]) [address], [address] [place] [address] Glucose [Mass/Vol] 70 mg/dL Normal 65-99 [facility] Comment on above: Performed By: #### P INR, 55951-2, CMP, CBC, HA1C #### [facility] ([id number]) [address], [address] [place] [address] Potassium [Moles/Vol] 4.2 mmol/L Normal 3.5-5.0 [facility] [place] Comment on above: Performed By: #### P INR, 70214-8, CMP, CBC, HA1C #### [facility] ([id number]) [address], [address] [place] [address] Protein [Mass/Vol] 6.7 g/dL Normal 6.0-8.0 [facility] Comment on above: Performed By: #### P INR, 72472-2, CMP, CBC, HA1C #### [facility] ([id number]) [address], [address] [place] [address] Sodium [Moles/Vol] 141 mmol/L Normal 134-146 [facility] Comment on above: Performed By: #### P INR, 66624-0, CMP, CBC, HA1C #### [facility] ([id number]) [address], [address] [place] [address] Urea nitrogen [Mass/Vol] 41 mg/dL High 5-27 [facility] [place] Comment on above: Performed By: #### P INR, 46061-4, CMP, CBC, HA1C #### [facility] ([id number]) [address], [address] [place] [address] Comprehensive metabolic pane cecilio 04-25-2024 Albumin [Mass/Vol] 4.4 g/dL 3.2 - 5.3 g/dL [facility] ALP [Catalytic activity/Vol] 119 U/L 39 - 130 U/L [facility] ALT No additional P-5'-P [Catalytic activity/Vol] 13 U/L 0 - 40 U/L [facility] Anion gap [Moles/Vol] 11 mmol/L 5 - 15 mmol/L [facility] AST [Catalytic activity/Vol] 14 U/L 0 - 41 U/L [facility] Bilirubin [Mass/Vol] 0.6 mg/dL 0.3 - 1.2 mg/dL [facility] Calcium [Mass/Vol] 9.0 mg/dL 8.5 - 10. 5 mg/dL [facility] Chloride [Moles/Vol] 105 mmol/L 98 - 109 mmol/L [facility] CO2 [Moles/Vol] 25 mmol/L 22 - 32 mmol/L [facility] Creatinine [Mass/Vol] 3.63 mg/dL High 0.60 - 1.30 mg/dL [facility] Comment on above: METHOD TRACEABLE TO IDLA STANDARD eGFR (CKD-EPI)non-race dependent 18 Low - PINF [facility] Comment on above: Reported eGFR is based on the CKD-EPI 2020 equation that does not use a race coefficient. Glucose [Mass/Vol] 70 mg/dL 65 - 99 mg/dL [facility] Interpretation and review of laboratory results Abnormal [facility] Potassium [Moles/Vol] 4.2 mmol/L 3.5 - 5.0 mmol/L [facility] Protein [Mass/Vol] 6.7 g/dL 6.0 - 8.0 g/dL [facility] Sodium [Moles/Vol] 141 mmol/L 134 - 146 mmol/L [facility] Urea nitrogen [Mass/Vol] 41 mg/dL High 5 - 27 mg/dL [facility] HGB A1C (GLYCO-HGB)on 2023 Glucose [Mass/Vol] 117 mg/dL Normal [facility] Comment on above: Performed By: #### P INR, 08054-5, CMP, CBC, HA1C ####[facility] ([id number])[address] [facility], [address] [address] HbA1c (Bld) [Mass fraction] 5.7 % High 4.4-5.6 [facility] [place] Comment on above: Result Comment: NOTE ADA Guidelines Result HgbA1c Normal : less than 5.7 % Prediabetes : 5.7 % to 6.4 % Diabetes : > 6.4 % Use with caution in patients with abnormal hemoglobin variants as the half-life of red blood cells and in vivo glycation rates are affected. Performed By: #### P INR, 70521-4, CMP, CBC, HA1C ####[facility] ([id number])[address] [facility], [address] [place] [address] Hemoglobin A1con 04-25-2024 Average glucose Estimated from glycated hemoglobin (Bld) [Mass/Vol] 117 mg/dL [facility] HbA1c (Bld) [Mass fraction] 5.7 % High 4.4 - 5.6 % [facility] Comment on above: NOTE ADA Guidelines Result HgbA1c Normal : less than 5.7 % Prediabetes : 5.7 % to 6.4 % Diabetes : > 6.4 % Use with caution in patients with abnormal hemoglobin variants as the half-life of red blood cells and in vivo glycation rates are affected. Interpretation and review of laboratory results Abnormal [facility] No Panel Informationon 04-25 [facility] PROTIME AND INRon 04-25-2024 INR Coag (PPP) [Relative time] 1.0 {INR} Normal 0.8-1.1 [facility] [place] Comment on above: Performed By: #### P INR, 13723-7, CMP, CBC, HA1C #### [facility] ([id number]) [address], [address] [place] [address] PT Coag (PPP) [Time] 11.7 s Normal 9.8-13.2 [facility] [place] Comment on above: Performed By: #### P INR, 86927-2, CMP, CBC, HA1C #### [facility] ([id number]) [address], [address] [place] [address] Protime-INRon 04-25-2024 INR Coag (PPP) [Relative time] 1.0 {INR} [facility] PT Coag (PPP) [Time] 11.7 s [facility] Type and screen(includes ind irect gloria)on 04-25-2024 ABO A [facility] Rh Nom (Bld) Positive [facility] aPTT Coag (PPP) [Time]on Interpretation and review of laboratory results Abnormal [facility] aPTT Coag (Bld) [Time] 41 s High 26-37 [facility] [place] Comment on above: Performed By: #### P INR, 27977-4, CMP, CBC, HA1C #### [facility] ([id number]) [address], [address] [place] [address] CT HUMERUS LT WO CONTon 03-25 CT HUMERUS LT WO CONT CT HUMERUS LT WO CONT CT HUMERUS LT WO CONT HISTORY: Upper arm trauma. Pain and swelling after fistula access this morning. COMPARISON: None TECHNIQUE: Routine CT of the left humerus was obtained without contrast. Sagittal and coronal reformats were generated from the axial data. Automated exposure control was utilized. All CT scans at this facility use dose modulation, iterative reconstruction, and/or weight based dosing when appropriate to reduce radiation dose to as low as reasonably achievable. FINDINGS/IMPRESSION: * No evidence of acute fracture, dislocation, or focal lesion. * Hypoattenuating fluid attenuating collection is noted along the anteromedial margin of the biceps brachii muscle measuring approximately 1.2 x 2.9 x 8.1 cm (AP x TV x CC). * Small amount of subcutaneous gas tracks along the anterolateral margin of the biceps brachii muscle possibly from dialysis access. Gas-forming organism is not definitively excluded by technique. Approved by Resident Vinicio Johnson MD on 04/07/2024 7:29 AM IMick have personally reviewed the image(s) and agree with and/or edited the report Finalized by Mick Iqbal on 04/07/2024 8:07 AM Normal [facility] Cytologyon 04-04-2024 Cytology Normal [facility] [place] Comment on above: Result Comment: [facility] [address] [place] [address] Cytology Consultation Patient Name:ZEV CRYSTAL:1955 (Age: 68)Gender:MTaken:4Reported:04/19/2024 18:02Physician(s):Katarina Reeder MD ([phone])Copy To: Rec. #:[id number]: #[id number] Final Cytologic Diagnosis Intrapancreatic ductal mass, EUS fine needle aspiration: Gut contamination, non-diagnostic aspirate sample, see comment. Comment: The interpretation of the case is challenging due to air-drying and streaking artifact. However, our interpretation of the cells present are gut contamination. This sample may not be shipping services sales representative of the lesion. The case was reviewed in consultation with Drs. Cleary and Asaf, who concur. ............................................ NOTE: [facility], including in intradepartmental consultation. It was then send out to [facility] for expert opinion. The diagnosis was made in consultation with [facility]. The above diagnosis and comment are that of Jose Strong MD, [facility], [place], [place]. Please see the complete report in the patient's EMR. wak/04/05/2024 Interpretation performed at [facility], [address] [place] [address], License number: [id number].Electronically Signed Out By Cm Davis MD Additional Report(s): Preliminary Report (PHS) Date Reported: 04/10/2024 Intra pancreatic ductal qyao-YDKH-hefe needle aspiration: Case reviewed at the [facility], including in intradepartmental consultations. Case send out to [facility] for expert opinion; final report to follow. Electronically Signed Out Cm Davis MD Clinical History About 1 cm solid mass lesion (Intra pancreatic ductal) & with strong family history of pancreatic carcinoma. Pancreatic duct dilated. Rapid On Site Interpretation Intra pancreatic ductal mass EBUS fine needle aspiration: Pass 1: Inadequate, Hypocellular. Pass 2: Few epithelial cells are noted.. Dr. Anaya Davis Interpretation provided at [facility] [place], [facility] [place] [address]. Gross Description Prepared in endo were 4 slides.(2AD) Also received was a needle rinse in CytoLyt for cell block. Needle rinse obtained at 10:36 and placed in formalin at 17:00 with a total formalin fixation time of 8 hours. Source of Specimen Intra pancreatic ductal jkft-LTEM-xugd needle aspiration Level 1 H&E, Level 2 unstained, Level 3 unstained, Level 4 unstained, Level 5 unstained, Level 6 unstained, Level 7 unstained, Level 8 unstained, Level 9 unstained, Level 10 H&E, Slides Made x 4 Fee Code(s): 1; 92241, 60016, 80475, 07631 Glucose Glucometer (BldC) [M ass/Vol]on 04-04-2024 Glucose [Mass/Vol] 111 mg/dL High 65-99 [facility] Glucose [Mass/Vol] 116 mg/dL High 65-99 [facility] Surgical Pathologyon 024 Surgical Pathology Normal [facility] Comment on above: Result Comment: [facility] [address] [place] [address] Surgical Pathology Consultation ADDENDUM [place] Patient Name:ZEV CRYSTAL:1955 (Age: 68)Gender:MTaken:04/04/2024eported:04/06/2024hysician(s):Katarina Reeder MD ([phone])Copy To: Rec. #:[id number]: #[id number] Final Pathologic Diagnosis Gastric biopsy: Mild chronic inactive gastritis. No intestinal metaplasia or dysplasia. Immunohistochemistry for Helicobacter pylori organisms is pending; addendum to follow. Report Electronically Signed Out leatha/04/06/2024Cm Davis MD Addendum ([facility]) Date Reported: 04/09/2024 Immunohistochemistry (with appropriate controls) for Helicobacter pylori organisms is NEGATIVE. Electronically Signed Out Cm Davis MD Interpretation performed at [facility], [address] [place] [address], License number: [id number]. Clinical History Pancreatic duct dilated. 1. R/O H. Pylori Gross Description Received in formalin labeled CRYSTAL, gastric biopsy are 8 pale-bermeo delicate soft tissue fragments, 0.1-0.5 cm in greatest dimension. The specimens are filtered and submitted in a single cassette. (1,ns,B30-44253, m7) TB tgb/04/04/2024NSK Specimen(s) Received Gastric biopsy Fee Codes(s): 1; 67522, 88744 Elastase.pancreatic (Stl) [M ass/Mass]on 02-29-2024 Pancreatic Elastase, F 123 mcg/g Low >200 (Normal) [facility] Comment on above: Result Comment: NOTE Interpretation: Borderline (100-200 mcg/g); Consistent with slight to moderate pancreatic insufficiency Test Performed by: [facility] [address] [id number] Recycling Program Manager: Sanford Redman Ph.D.; CLIA# [id number] Performed By: #### 2 5907-7 #### [facility] ([id number]) [address] [place] [address], [place] [address] MR MRCP WITH MRI ABD W WO CO NTon 02-17-2024 MR MRCP WITH MRI ABD W WO CONT MR MRCP WITH MRI ABD W WO CONT CLINICAL INFORMATION: Pancreatic duct dilated; Pancreatic lesion. Pancreatitis. Right renal mass. History of right partial nephrectomy. TECHNIQUE/PROCEDURE: Multiplanar, multisequence MR imaging of the abdomen was performed with and without IV contrast, including MIP and 3D reformats performed on an independent workstation under concurrent physician supervision, which were then reviewed to further define anatomy and possible pathology. PROTOCOL: MRCP without and with intravenous contrast COMPARISON: MRI dated 01/13/2023, CT dated 01/27/2024. FINDINGS: Signal intensity within liver and spleen appears decreased on T2-weighted images compared to prior exam and lower than paraspinous muscular structures. Left kidney is small unchanged. Multiple benign-appearing renal cysts are present. Previously noted hemorrhagic cyst upper pole right kidney shows interval decrease in size. 2 small hemorrhagic cyst noted within right kidney superior most calyx for the area of abnormality noted on recent CT and measures 11 mm. Additional hemorrhagic cyst more inferiorly anteriorly measures 13.8 mm. Fairly marked dilatation of pancreatic duct again noted maximally 13.9 mm and body region increased since prior exam. Mild narrowing of the duct in pancreatic neck region noted also present previously. Small filling defect within pancreatic duct in pancreatic head is present appearing new since prior exam. This shows no definite enhancement. Common bile duct is dilated transverse dimension 8.9 mm not changed. The pancreatic tissue appears mildly edematous. Mild stranding about pancreas suspected. No acute fluid collection identified. Pancreas enhances normally. The gallbladder is absent. Dilatation of the abdominal aorta maximally 4.3 cm x 4.1 cm increased since prior exam when it measured 4.1 cm x 4.2 cm. No free intra-abdominal fluid identified. Intrahepatic biliary ductal dilatation appears smooth and regular. Liver and spleen show low signal on in phase images no definite worrisome liver lesion identified. There is some precontrast high signal within operative site of right kidney likely some blood products. IMPRESSION: 1. Interval resection of previously noted anterior midpole right renal mass. Some mild heterogeneous signal persists in the region making evaluation somewhat difficult. New area noted on recent CT appears to represent some blood products likely in a small hemorrhagic cyst. Similar focus noted more inferiorly within anterior right kidney. No definite worrisome lesion identified. 2. There may be mild diffuse pancreatitis present with mild apparent edematous change in the pancreas. No peripancreatic fluid collection identified. Pancreas enhances normally. 3. Increased marked dilatation of pancreatic duct with some narrowing in pancreatic neck region. No definite enhancement within the filling defect within pancreatic head and neck region. 4. Interval development of decreased signal in liver and spleen since prior exam suggests iron overload. 5. Mild interval increase in mid abdominal aortic aneurysm today maximally 4.3 cm. 6. Unchanged biliary ductal dilatation. Finalized by Melly Bey MD on 02/17/2024 8:43 AM Normal [facility] XR CHEST 2 VWSon 02-04-2024 XR CHEST 2 VWS XR CHEST 2 VWS History: Post right partial nephrectomy for renal cell carcinoma. Assessing for metastatic disease Exam/Technique: PA and lateral chest Comparison: 02/22/2018 Findings: There is no evidence of active pulmonary or pleural disease. Cardiac and mediastinal contours are within normal limits. A right-sided tunneled dialysis catheter is new since the previous study IMPRESSION: No evidence of active pulmonary disease demonstrated. Finalized by Adriano Kaiser MD on 02/04/2024 6:13 PM Normal [facility] Measure post void residualon 02-03-2024 Volume 72 cc's [facility] [employer] [facility] CT ABDOMEN W CONTon 01-31-[address] ABDOMEN W CONT CT ABDOMEN W CONT CLINICAL INFORMATION: Renal cell carcinoma, monitor. TECHNIQUE: CT abdomen with intravenous contrast. All CT scans at this facility use dose modulation, iterative reconstruction, and/or weight based dosing when appropriate to reduce radiation dose to as low as reasonably achievable. COMPARISON: 10/28/2022. FINDINGS LOWER CHEST: Lung bases clear. HEPATOBILIARY: Unchanged segment 6 hepatic cyst/hemangioma. Gallbladder surgically absent with mild reservoir effect. PANCREAS: Significant dilation of the pancreatic duct measuring up to 2.1 cm, increased from prior exam. Possible area of intraductal nodular enhancement within the pancreatic head (series 2 image 34). SPLEEN: Within normal limits. ADRENAL GLANDS: Within normal limits. KIDNEYS, URETERS: Asymmetrically atrophic left kidney, similar to prior. Postsurgical changes of partial right nephrectomy. Ovoid 14 mm region of soft tissue along the anterior margin of mid right kidney (series 2 image 38). New somewhat masslike 15 mm region of hypoenhancement (coronal 31/77) at the upper pole right kidney. No collecting system dilation. GI TRACT AND PERITONEUM: Visible small and large bowel normal in caliber. VASCULATURE: Infrarenal abdominal aortic aneurysm measures 4.3 cm, unchanged from prior. Aortoiliac calcifications are present in. Probable severe stenosis of the left common iliac artery. Portal, splenic, superior mesenteric veins appear patent. LYMPH NODES: Not enlarged. MSK: Vertebral body heights and alignment maintained. IMPRESSION: * Interval partial right nephrectomy with lenticular hyperdensity along the anterior right renal midpole, favor small hematoma or potentially rupture of hemorrhagic/proteinaceous cyst. Attention on follow-up. * Somewhat masslike abnormality of the right upper kidney, new since 01/13/2023, could reflect infectious/ischemic etiology. Emerging secondary neoplasm remains to be excluded, however. Repeat MRI in 1-3 months may be prudent. * Significant pancreatic ductal dilation, thought similar to 01/13/2023. Potential debris or soft tissue stricture at the pancreatic head.. Consider repeat MRCP for better characterization (and more direct comparison). EUS/ERCP could also be considered. * Redemonstrated abdominal aortic aneurysm, warranting continued subspecialty follow-up. Approved by Resident Aravind Welch DO on 01/31/2024 11:30 AM Ga Mendieta MD have personally reviewed the image(s) and agree with and/or edited the report Finalized by Ga Keith MD on 01/31/2024 12:57 PM Normal [facility] POC K GLUon 01-11-2024 Glucose [Mass/Vol] 90 mg/dL Normal 65-99 [facility] Comment on above: Performed By: #### I KG #### [facility] ([id number]) [address] [place] [address] Potassium [Moles/Vol] 4.7 mmol/L Normal 3.5-5.0 [facility] Comment on above: Performed By: #### I KG #### [facility] ([id number]) [address] [place] [address] Ambulatory Visit Summaryon 0 12-26-2023 Ambulatory Visit Summary JOSE CRYSTAL :1955 Visit Date:12/26/2023 Ambulatory Visit Instructions Your Diagnosis Anemia Tobacco use Your Care Team Attending Physician - Ga FRANK MD Primary Care Physician - Dylan Montilla MD Referring Physician - Dylan Montilla MD This Is Your Medications List Contact [...] for choosing us for your care. Normal [facility] Consent for Procedure/Surger yon 12-26-2023 Consent for Procedure/Surgery [id number] Normal [facility] Physician Referralon 024 Physician Referral [id number] [facility] CREATININE CLEARANCEon 11-13 Creatinine (U) [Mass/Vol] 51.43 mg/dL Normal [facility] Comment on above: Performed By: #### C RCL #### [facility] ([id number]) [address], [address] [place] [address] CREATININE CLEARANCE 13.6 mL/min Low 74-130 [facility] Comment on above: Performed By: #### C RCL #### [facility] ([id number]) [address], [address] [place] [address] URINE VOLUME AND TIMEon 10-24 TIME 24 h Normal [facility] Comment on above: Performed By: #### C RCL #### [facility] ([id number]) [address], [address] [place] [address] TOTAL VOLUME 1700 mL Normal [facility] Comment on above: Performed By: #### C RCL #### [facility] ([id number]) [address], [address] [place] [address] Measure post void residualOr dered By: Gabrielle Moreno on 09-30-2023 Volume 71ccs [facility] CA 19-9on 12-04-2022 CA 19-9 15 U/mL Normal 0-35 [facility] Comment on above: Result Comment: [employer] Electrochemiluminescence Immunoassay (ECLIA) . Values obtained with different assay methods or kits cannot be used interchangeably. Results cannot be interpreted as absolute evidence of the presence or absence of malignant disease. Performed By: #### C A 19,9 #### [facility] [address] [id number] Sayra Angel US KIDNEYSon 12-04-2022 US KIDNEYS US KIDNEYS EXAM DATE: 12/04/2022 9:18 AM MDT COMPARISON: MRI abdomen without contrast 11/30/2022. CT abdomen and pelvis without contrast 10/28/2022. CT abdomen and pelvis with contrast 06/30/2019. INDICATION: Right kidney mass. TECHNIQUE: Real-time ultrasound scanning of the kidneys and bladder was performed by the machine stonecutter. Rug Dyer Helper static images are submitted for review. FINDINGS: [...] GUSTAVO GONZALEZ Date: 2022-12-04 13:03 Normal [facility] MRI ABDOMEN WO CONon 023 MRI ABDOMEN WO CON EXAMINATION: MRI ABD OMEN WO CON HISTORY: Imaging of abdomen abnormal COMPARISON: Report from CT abdomen pelvis 10/28/2022 performed at [facility] TECHNIQUE: MRCP was performed without contrast for [...] ZEV GREENWOOD Date: 2022-11-30 15:06 Normal [facility] XR FOREIGN BODY EYEon 2022 XR FOREIGN BODY EYE EXAMINATION: XR FORE IGN BODY EYE HISTORY: Foreign body in eye COMPARISON: No relevant comparison available. FINDINGS: ORBITS: Negative for a metallic foreign body. OTHER: Negative. IMPRESSION: 1. No metallic foreign body within the orbits. Electronically authenticated by: ZEV GREENWOOD Date: 2022-11-30 08:53 Normal [facility] Vital Signs Date Time Vital Sign Value Performing Clinician Faci lity 08-23-2024 11:01-0500 Body height 175.3 cm Zac Lombardi MD Work Phone: [facility] 08-23-2024 11:01-0500 Body mass index (BMI) [Ratio] 21.12 kg/m2 Zac Lombardi MD Work Phone: [facility] 08-23-2024 11:01-0500 Body weight 64.86 kg Zac Lombardi MD Work Phone: [facility] 08-23-2024 11:01-0500 Diastolic blood pressure 80 mm[Hg] Zac Lombardi MD Work Phone: [facility] 08-23-2024 11:01-0500 Systolic blood pressure 146 mm[Hg] Zac Lombardi MD Work Phone: [facility] 06-26-2024 13:59-0500 Body mass index (BMI) [Ratio] 20.38 kg/m2 Yung ALEJANDRO Work Phone: [facility] [employer] [facility] 06-26-2024 13:59-0500 Body weight 62.6 kg Yung ALEJANDRO Work Phone: [facility] 06-26-2024 13:59-0500 Diastolic blood pressure 60 mm[Hg] Yung ALEJANDRO Work Phone: [facility] [employer] [facility] 06-26-2024 13:59-0500 Heart rate 70 /min Yungsaad Wolfe PA Work Phone: [facility] [employer] [facility] 06-26-2024 13:59-0500 Systolic blood pressure 118 mm[Hg] Yungsaad Wolfe PA Work Phone: [facility] [employer] [facility] 05-30-2024 15:00-0500 Body mass index (BMI) [Ratio] 20.64 kg/m2 Yungsaad Wolfe PA Work Phone: [facility] [employer] [facility] 05-30-2024 15:00-0500 Body weight 63.41 kg Yungsaad Wolfe PA Work Phone: [facility] [employer] [facility] 05-30-2024 15:00-0500 Diastolic blood pressure 79 mm[Hg] Yungsaad Wolfe PA Work Phone: [facility] [employer] [facility] 05-30-2024 15:00-0500 Heart rate 86 /min Yungsaad Wolfe PA Work Phone: [facility] [employer] [facility] 05-30-2024 15:00-0500 Systolic blood pressure 142 mm[Hg] Yung Wolfe PA Work Phone: [facility] [employer] [facility] 05-25-2024 09:21-0400 Body height 175.3 cm Stanley Gillette MD Work Phone: [facility] [employer] [facility] 05-25-2024 09:21-0400 Body mass index (BMI) [Ratio] 20.99 kg/m2 Stanley Gillette MD Work Phone: [facility] [employer] [facility] 05-25-2024 09:21-0400 Body temperature 97.2 [degF] Stanley Gillette MD Work Phone: [facility] [employer] [facility] 05-25-2024 09:21-0400 Body weight 64.5 kg Stanley Gillette MD Work Phone: [facility] [employer] [facility] 05-25-2024 09:21-0400 Diastolic blood pressure 67 mm[Hg] Stanley Gillette MD Work Phone: [facility] 05-25-2024 09:21-0400 Heart rate 77 /min Stanley Gillette MD Work Phone: [facility] [employer] [facility] 05-25-2024 09:21-0400 Respiratory rate 16 /min Stanley Gillette MD Work Phone: [facility] [employer] [facility] 05-25-2024 09:21-0400 SaO2% (BldA) [Mass fraction] 100 % Stanley Gillette MD Work Phone: [facility] 05-25-2024 09:21-0400 Systolic blood pressure 156 mm[Hg] Stanley Gillette MD Work Phone: [facility] 05-22-2024 14:48-0400 Body mass index (BMI) [Ratio] 20.38 kg/m2 Amanda Matrisciano PA-C Work Phone: [facility] [employer] [facility] 05-22-2024 14:48-0400 Body weight 62.6 kg Amanda Matrisciano PA-C Work Phone: [facility] [employer] [facility] 05-22-2024 14:48-0400 Diastolic blood pressure 78 mm[Hg] Amanda Matrisciano PA-C Work Phone: [facility] [employer] [facility] 05-22-2024 14:48-0400 Heart rate 85 /min Amanda Matrisciano PA-C Work Phone: [facility] [employer] [facility] 05-22-2024 14:48-0400 Systolic blood pressure 182 mm[Hg] Amanda Matrisciano PA-C Work Phone: [facility] [employer] [facility] 05-17-2024 09:50-0400 Body temperature 97.7 [degF] Jeffrey Mcfadden MD Work Phone: [facility] [employer] [facility] 05-17-2024 09:50-0400 Diastolic blood pressure 71 mm[Hg] Jeffrey Mcfadden MD Work Phone: [facility] [employer] [facility] 05-17-2024 09:50-0400 Heart rate 90 /min Jeffrey Mcfadden MD Work Phone: [facility] 05-17-2024 09:50-0400 Respiratory rate 16 /min Jeffrey Mcfadden MD Work Phone: [facility] 05-17-2024 09:50-0400 Systolic blood pressure 139 mm[Hg] Jeffrey Mcfadden MD Work Phone: [facility] 05-17-2024 04:34-0400 Body mass index (BMI) [Ratio] 21.03 kg/m2 Jeffrey Mcfadden MD Work Phone: [facility] 05-17-2024 04:34-0400 Body weight 64.6 kg Jeffrey Mcfadden MD Work Phone: [facility] 05-17-2024 03:07-0400 SaO2% (BldA) [Mass fraction] 96 % Jeffrey Mcfadden MD Work Phone: [facility] 05-09-2024 21:34-0400 Body height 175.3 cm Jeffrey Mcfadden MD Work Phone: [facility] 05-09-2024 16:17-0400 Body temperature 98.6 [degF] Jeffrey Mcfadden MD Work Phone: [facility] 05-09-2024 16:17-0400 SaO2% (BldA) [Mass fraction] 99.7 % Jeffrey Mcfadden MD Work Phone: [facility] 05-09-2024 15:07-0400 Body temperature 98.6 [degF] Jeffrey Mcfadden MD Work Phone: [facility] 05-09-2024 15:07-0400 SaO2% (BldA) [Mass fraction] 99.8 % Jeffrey Mcfadden MD Work Phone: [facility] 05-09-2024 14:55-0400 Body temperature 98.6 [degF] Jeffrey Mcfadden MD Work Phone: [facility] 05-09-2024 14:55-0400 SaO2% (BldA) [Mass fraction] 99.8 % Jfefrey Mcfadden MD Work Phone: [facility] 05-09-2024 12:58-0400 Body temperature 98.6 [degF] Jeffrey Mcfadden MD Work Phone: [facility] 05-09-2024 12:58-0400 SaO2% (BldA) [Mass fraction] 99.9 % Jeffrey Mcfadden MD Work Phone: [facility] 04-25-2024 13:45-0400 Body height 175.3 cm [facility] 04-25-2024 13:45-0400 Body mass index (BMI) [Ratio] 22.3 kg/m2 [facility] 04-25-2024 13:45-0400 Body temperature 97.9 [degF] [facility] [address] [facility] 04-25-2024 13:45-0400 Body weight 68.5 kg [facility] 04-25-2024 13:45-0400 Diastolic blood pressure 69 mm[Hg] [facility] 04-25-2024 13:45-0400 Heart rate 71 /min [facility] 04-25-2024 13:45-0400 Respiratory rate 16 /min [facility] 04-25-2024 13:45-0400 SaO2% (BldA) [Mass fraction] 100 % [facility] 04-25-2024 13:45-0400 Systolic blood pressure 139 mm[Hg] [facility] 04-16-2024 14:28-0400 Body height 175.3 cm Zac Lombardi MD Work Phone: [facility] 04-16-2024 14:28-0400 Body mass index (BMI) [Ratio] 22.59 kg/m2 Zac Lombardi MD Work Phone: [facility] 04-16-2024 14:28-0400 Body weight 69.4 kg Zac Lombardi MD Work Phone: [facility] 04-16-2024 14:28-0400 Diastolic blood pressure 72 mm[Hg] Zac Lombardi MD Work Phone: [facility] 04-16-2024 14:28-0400 Systolic blood pressure 148 mm[Hg] Zac Lombardi MD Work Phone: [facility] 04-10-2024 15:22-0400 Body height 175.3 cm Jeffrey Mcfadden MD Work Phone: [facility] 04-10-2024 15:22-0400 Body mass index (BMI) [Ratio] 22.59 kg/m2 Jeffrey Mcfadden MD Work Phone: [facility] 04-10-2024 15:22-0400 Body weight 69.4 kg Jeffrey Mcfadden MD Work Phone: [facility] 04-10-2024 15:22-0400 Diastolic blood pressure 87 mm[Hg] Jeffrey Mcfadden MD Work Phone: [facility] 04-10-2024 15:22-0400 Heart rate 72 /min Jeffrey Mcfadden MD Work Phone: [facility] 04-10-2024 15:22-0400 Systolic blood pressure 152 mm[Hg] Jeffrey Mcfadden MD Work Phone: [facility] 04-02-2024 14:01-0400 Body mass index (BMI) [Ratio] 23.42 kg/m2 Zac Lombardi MD Work Phone: [facility] 04-02-2024 14:01-0400 Body weight 69.85 kg Zac Lombardi MD Work Phone: [facility] 04-02-2024 14:01-0400 Diastolic blood pressure 76 mm[Hg] Zac Lombardi MD Work Phone: [facility] 04-02-2024 14:01-0400 Heart rate 72 /min Zac Lombardi MD Work Phone: [facility] 04-02-2024 14:01-0400 Respiratory rate 18 /min Zac Lombardi MD Work Phone: [facility] 04-02-2024 14:01-0400 Systolic blood pressure 134 mm[Hg] Zac Lombardi MD Work Phone: [facility] 03-28-2024 13:23-0400 Body height 172.7 cm [facility] 03-28-2024 13:23-0400 Body mass index (BMI) [Ratio] 21.29 kg/m2 [facility] 03-28-2024 13:23-0400 Body weight 63.5 kg [facility] 02-29-2024 11:12-0400 Body height 175.3 cm Polly Reeder MD Work Phone: [facility] 02-29-2024 11:12-0400 Body mass index (BMI) [Ratio] 20.91 kg/m2 Polly Reeder MD Work Phone: [facility] 02-29-2024 11:12-0400 Body weight 64.23 kg Polly Reeder MD Work Phone: [facility] 02-29-2024 11:12-0400 Diastolic blood pressure 68 mm[Hg] Polly Reeder MD Work Phone: [facility] 02-29-2024 11:12-0400 Heart rate 63 /min Polly Reeder MD Work Phone: [facility] 02-29-2024 11:12-0400 Systolic blood pressure 166 mm[Hg] Polly Reeder MD Work Phone: [facility] 02-14-2024 14:19-0400 Body mass index (BMI) [Ratio] 20.2 kg/m2 Jeffrey Mcfadden MD Work Phone: [facility] 02-14-2024 14:19-0400 Body weight 62.05 kg Jeffrey Mcfadden MD Work Phone: [facility] 02-14-2024 14:19-0400 Diastolic blood pressure 87 mm[Hg] Jeffrey Mcfadden MD Work Phone: [facility] 02-14-2024 14:19-0400 Heart rate 80 /min Jeffrey Mcfadden MD Work Phone: [facility] 02-14-2024 14:19-0400 Systolic blood pressure 150 mm[Hg] Jeffrey Mcfadden MD Work Phone: [facility] 02-10-2024 15:41-0400 Body height 175.3 cm Zac Lombardi MD Work Phone: [facility] 02-10-2024 15:41-0400 Body mass index (BMI) [Ratio] 19.79 kg/m2 Zac Lombardi MD Work Phone: [facility] 02-10-2024 15:41-0400 Body weight 60.78 kg Zac Lombardi MD Work Phone: [facility] 02-10-2024 15:41-0400 Diastolic blood pressure 82 mm[Hg] Zac Lombardi MD Work Phone: [facility] 02-10-2024 15:41-0400 Systolic blood pressure 126 mm[Hg] Zac Lombardi MD Work Phone: [facility] 02-03-2024 14:53-0400 Body height 175.3 cm Mary Telles MD Work Phone: [facility] 02-03-2024 14:53-0400 Body mass index (BMI) [Ratio] 19.79 kg/m2 Mary Telles MD Work Phone: [facility] 02-03-2024 14:53-0400 Body weight 60.78 kg Mary Telles MD Work Phone: [facility] 02-03-2024 14:53-0400 Diastolic blood pressure 83 mm[Hg] Mary Telles MD Work Phone: [facility] 02-03-2024 14:53-0400 Heart rate 74 /min Mary Telles MD Work Phone: [facility] 02-03-2024 14:53-0400 Systolic blood pressure 159 mm[Hg] Mary Telles MD Work Phone: [facility] 01-05-2024 12:14-0400 Body mass index (BMI) [Ratio] 19.49 kg/m2 [facility] 01-05-2024 12:14-0400 Body weight 59.88 kg [facility] 01-02-2024 10:14-0400 Diastolic blood pressure 76 mm[Hg] Mckinley Winkler MD Work Phone: [facility] Comment on above: manual cuff 01-02-2024 10:14-0400 Systolic blood pressure 138 mm[Hg] Mckinley Winkler MD Work Phone: [facility] Comment on above: manual cuff 01-02-2024 09:44-0400 Body height 175.3 cm Mckinley Winkler MD Work Phone: [facility] 01-02-2024 09:44-0400 Body mass index (BMI) [Ratio] 20.23 kg/m2 Mckinley Winkler MD Work Phone: [facility] 01-02-2024 09:44-0400 Body weight 62.14 kg Mckinley Winkler MD Work Phone: [facility] 01-02-2024 09:44-0400 Heart rate 62 /min Mckinley Winkler MD Work Phone: [facility] 01-02-2024 09:44-0400 SaO2% (BldA) [Mass fraction] 100 % Mckinley Winkler MD Work Phone: [facility] 12-30-2023 13:23-0400 Body height 175.3 cm Zac Lombardi MD Work Phone: [facility] 12-30-2023 13:23-0400 Body mass index (BMI) [Ratio] 20.38 kg/m2 Zac Lombardi MD Work Phone: [facility] 12-30-2023 13:23-0400 Body weight 62.6 kg Zac Lombardi MD Work Phone: [facility] 12-30-2023 13:23-0400 Diastolic blood pressure 86 mm[Hg] Zac Lombardi MD Work Phone: [facility] [facility] 12-30-2023 13:23-0400 Systolic blood pressure 142 mm[Hg] Zac Lombardi MD Work Phone: [facility] 12-26-2023 13:06-0400 Blood Pressure Location Ga NILL [facility] [place] 12-26-2023 13:06-0400 Diastolic blood pressure 81 mm[Hg] Ga NILL [facility] 12-26-2023 13:06-0400 Heart rate 76 /min Ga NILL [facility] 12-26-2023 13:06-0400 Respiratory rate 16 /min Ga NILL [facility] [place] 12-26-2023 13:06-0400 Systolic blood pressure 161 mm[Hg] Ga NILL [facility] [place] 11-11-2023 13:49-0400 Body height 175.3 cm Aravind Daniels DEVELOPMENT GEOLOGIST-PRODUCTION CONTROL COORDINATOR Work Phone: [facility] 11-11-2023 13:49-0400 Body mass index (BMI) [Ratio] 19.7 kg/m2 Aravind Daniels DEVELOPMENT GEOLOGIST-PRODUCTION CONTROL COORDINATOR Work Phone: [facility] 11-11-2023 13:49-0400 Body weight 60.51 kg Aravind Daniels APRN-PRODUCTION CONTROL COORDINATOR Work Phone: [facility] [employer] [facility] 11-11-2023 13:49-0400 Diastolic blood pressure 81 mm[Hg] Aravind Daniels APRN-PRODUCTION CONTROL COORDINATOR Work Phone: [facility] [employer] [facility] 11-11-2023 13:49-0400 Heart rate 64 /min Aravind Daniels APRN-PRODUCTION CONTROL COORDINATOR Work Phone: [facility] 11-11-2023 13:49-0400 SaO2% (BldA) [Mass fraction] 99 % Aravind Daniels DEVELOPMENT GEOLOGIST-PRODUCTION CONTROL COORDINATOR Work Phone: [facility] [employer] [facility] 11-11-2023 13:49-0400 Systolic blood pressure 125 mm[Hg] Aravind Daniels APRN-PRODUCTION CONTROL COORDINATOR Work Phone: [facility] [employer] [facility] 09-30-2023 15:11-0500 Body height 175.3 cm Mary Telles MD Work Phone: [facility] [employer] [facility] 09-30-2023 15:11-0500 Body mass index (BMI) [Ratio] 27.91 kg/m2 Mary Telles MD Work Phone: [facility] [employer] [facility] 09-30-2023 15:11-0500 Body weight 85.73 kg Mary Telles MD Work Phone: [facility] [employer] [facility] 09-30-2023 15:11-0500 Diastolic blood pressure 69 mm[Hg] Mary Telles MD Work Phone: [facility] [employer] [facility] 09-30-2023 15:11-0500 Heart rate 69 /min Mary Telles MD Work Phone: [facility] [employer] [facility] 09-30-2023 15:11-0500 Systolic blood pressure 116 mm[Hg] Mary Telles MD Work Phone: [facility] [employer] [facility] 08-05-2023 15:21-0500 Body height 175.3 cm Mary Telles MD Work Phone: [employer] 08-05-2023 15:21-0500 Body mass index (BMI) [Ratio] 27.91 kg/m2 Mary Telles MD Work Phone: [employer] 08-05-2023 15:21-0500 Body weight 85.73 kg Mary Telles MD Work Phone: [employer] 08-05-2023 15:21-0500 Diastolic blood pressure 99 mm[Hg] [facility]elles MD [facility] 08-05-2023 15:21-0500 Heart rate 82 /min Mary Telles MD Work Phone: [employer] 08-05-2023 15:21-0500 Systolic blood pressure 170 mm[Hg] Mary Telles MD Work Phone: [facility] [employer] Encounters Encounter Date Encounter Type Care Provider Facility Start: 08-23-2024 End: 08-23-2024 Office outpatient visit 25 minutes Zac Lombardi MD Work Phone: [facility] Comment on above: [facility] (Primary Dx); PAD (peripheral artery disease) [facility] Chronic kidney disease, unspecified CKD stage; Renal cell carcinoma ([facility]); Aneurysm of infrarenal abdominal aorta, unspecified whether ruptured ([facility]-HCC); CLL (chronic lymphocytic leukemia) ([facility]); Hypertrophic cardiomyopathy ([facility]) Start: 08-23-2024 End: 08-23-2024 ambulatory ZAC LOMBARDI [facility] Start: 08-22-2024 End: 08-22-2024 Orders Only Elizabeth [facility] Comment on above: End stage renal dise ase ([facility]-HCC) (Primary Dx); Abdominal aortic ectasia (CMS-HCC); PAD (peripheral artery disease) ([facility]-H[facility]) End stage renal dise ase ([facility]-HCC) (Primary Dx); PAD (peripheral artery disease) ([facility]-HCC); Essential hypertension Start: 08-17-2024 End: 08-17-2024 Telephone encounter Elizabeth Ajayjewel BRO [facility] Start: 08-16-2024 End: 08-16-2024 ambulatory ANGEL NAIN [facility] Start: 08-14-2024 End: 08-14-2024 ambulatory [facility] Start: 08-13-2024 End: 08-13-2024 ambulatory [facility] Start: 08-03-2024 End: 08-04-2024 ambulatory [facility] Start: 07-24-2024 End: 07-24-2024 ambulatory KEVIN MARLENE [facility] Start: 07-05-2024 End: 07-05-2024 Orders Only Yung ALEJANDRO Work Phone: [facility] Comment on above: Exocrine pancreatic insufficiency Start: 06-26-2024 End: 06-26-2024 Postop follow up visit related to original px Yung ALEJANDRO Work Phone: [facility] Comment on above: Exocrine pancreatic insufficiency (Primary Dx); Postoperative visit; IPMN (intraductal papillary mucinous neoplasm) Start: 06-26-2024 End: 06-26-2024 [facility] YUNG OWLFE [facility] [place] Start: 06-25-2024 End: 06-25-2024 [facility] Start: 05-30-2024 End: 05-30-2024 Postop follow up visit related to original px Yung ALEJANDRO Work Phone: [facility] Comment on above: Postoperative visit (Primary Dx); IPMN (intraductal papillary mucinous neoplasm); B-cell lymphoma of intra-abdominal lymph nodes, unspecified B-cell lymphoma type (CMS-HCC) Start: 05-30-2024 End: 05-30-2024 ambulatory YUNG WOLFE [facility] Start: 05-25-2024 End: 05-25-2024 Documentation procedure Adal Zhu [email or web address] - Medical Oncology Start: 05-25-2024 End: 05-25-2024 Office outpatient new 60 minutes Stanley Gillette MD Work Phone: Libia Zhu [facility] [[email or web address] - Medical Oncology Comment on above: CLL (chronic lymphoc ytic leukemia) ([facility]) (Primary Dx); IPMN (intraductal papillary mucinous neoplasm); B-cell lymphoma of intra-abdominal lymph nodes, unspecified B-cell lymphoma type ([facility]); Renal cell carcinoma ([facility]) Start: 05-25-2024 End: 05-25-2024 ambulatory STANLEY GILLETTE [facility] Start: 05-23-2024 End: 05-23-2024 ambulatory DYLAN [facility] Start: 05-22-2024 End: 05-22-2024 Postop follow up visit related to original px Amanda [facility] FLAVIA-C Work Phone: [facility] Comment on above: IPMN (intraductal pa pillary mucinous neoplasm) (Primary Dx); B-cell lymphoma of intra-abdominal lymph nodes, unspecified B-cell lymphoma type ([facility]) Start: 05-22-2024 End: 05-22-2024 ambulatory AMANDA [facility] Start: 05-21-2024 End: 05-21-2024 Telephone encounter Starla Corral LPN [facility] Start: 05-09-2024 End: 05-17-2024 Evaluation and management of inpatient [facility] Start: 04-30-2024 End: 04-30-2024 Bamboo flowsrobby Arnold MD Work Phone: [facility] Start: 04-30-2024 End: 04-30-2024 Bamboo flowsrobby Arnold MD Work Phone: [facility] Start: 04-30-2024 End: 04-30-2024 Office outpatient visit 15 minutes Shazia Arnold MD Work Phone: [facility] Comment on above: Melanocytic nevus of trunk (Primary Dx); Lentigines; Seborrheic keratosis; Neoplasm of unspecified behavior of bone, soft tissue, and skin; Actinic keratosis; History of skin cancer Start: 04-30-2024 End: 04-30-2024 ambulatory SHAZIA ARNOLD Not Available Start: 04-25-2024 End: 04-25-2024 Patient encounter procedure [facility] Comment on above: Preop testing (Prima ry Dx); Pancreatic neoplasm; Elevated blood sugar Start: 04-25-2024 End: 04-25-2024 Patient encounter status [facility] Start: 04-25-2024 End: 04-25-2024 ambulatory JEFFREY MCFADDEN [facility] Start: 04-25-2024 Encounter for other preprocedural examination [facility] Start: 04-20-2024 End: 04-20-2024 Telephone encounter Jeffrey Mcfadden MD Work Phone: [facility] Start: 04-16-2024 End: 04-16-2024 Office outpatient visit 15 minutes Zac Lombardi MD Work Phone: [facility] Comment on above: Infrarenal abdominal aortic aneurysm (AAA) without rupture ([facility]) (Primary Dx); PAD (peripheral artery disease) ([facility]); Hypertrophic cardiomyopathy (CMS-HCC); Renal cell carcinoma (CMS-HCC); End stage renal disease (CMS-HCC) Start: 04-16-2024 End: 04-16-2024 [facility] Start: 04-10-2024 End: 04-10-2024 Office outpatient new 45 minutes Jeffrey Mcfadden MD Work Phone: [facility] Comment on above: IPMN (intraductal pa pillary mucinous neoplasm) (Primary Dx); Pancreatic duct dilated Start: 04-10-2024 End: 04-10-2024 ambulatory JFEFREY MCFADDEN [facility] Start: 04-07-2024 End: 04-08-2024 Emergency department patient visit ANJU Dickson PIPER [facility] Start: 04-05-2024 End: 04-05-2024 Evaluation and management of inpatient ALLY AYERS [facility] Start: 04-04-2024 End: 04-05-2024 Evaluation and management of inpatient [facility] Start: 04-02-2024 End: 04-02-2024 Office outpatient visit 25 minutes Zac Lombardi MD Work Phone: [facility] Comment on above: Renal cell carcinoma (CMS-HCC) (Primary Dx); Infrarenal abdominal aortic aneurysm (AAA) without rupture (CMS-HCC); End stage renal disease (CMS-HCC); Hypertrophic cardiomyopathy (CMS-HCC); 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[facility]) Start: 04-02-2024 End: 04-02-2024 ambulatory ARASHCindy Manjarrez [facility] Start: 03-28-2024 End: 03-28-2024 Evaluation and management of inpatient DYLAN MONTILLA [facility] Start: 03-28-2024 End: 03-28-2024 Admission to [facility] Phone Call Provider 3 [facility] Start: 03-06-2024 End: 03-09-20[facility] Comment on above: Exocrine pancreatic insufficiency (Primary Dx) Start: 02-29-2024 End: 02-29-2024 Office outpatient new 45 minutes Polly Reeder MD Work Phone: [facility] Comment on above: Encounter for colore ctal cancer screening (Primary Dx); Pancreatic duct dilated Start: 02-29-2024 End: 02-29-2024 ambulatory [facility] Comment on above: Chronic pancreatitis , unspecified pancreatitis type (CMS-HCC) (Primary Dx) Start: 02-17-2024 End: 02-17-2024 ambulatory YUNG WOLFE [facility] Start: 02-16-2024 End: 02-16-2024 Orders Only Yung ALEJANDRO Work Phone: [facility] Comment on above: Pancreatic duct dila myriam (Primary Dx); Pancreatic lesion Start: 02-14-2024 End: 02-14-2024 Office consultation new/estab patient 40 min Jeffrey Mcfadden MD Work Phone: [facility] Comment on above: Pancreatic duct dila myrima Start: 02-14-2024 End: 02-14-2024 ambulatory JEFFREY MCFADDEN [facility] Start: 02-13-2024 End: 02-13-2024 Orders Only [place] BILLINGS [facility] Comment on above: Renal cell carcinoma (CMS-HCC) (Primary Dx) Start: 02-10-2024 End: 02-10-2024 Postop follow up visit related to original px Zac Lombardi MD Work Phone: [facility] Comment on above: Infrarenal abdominal aortic aneurysm (AAA) without rupture (CMS-HCC) (Primary Dx); Renal cell carcinoma (CMS-HCC); Hypertrophic cardiomyopathy (CMS-HCC); End stage renal disease (CMS-HCC) Start: 02-10-2024 End: 02-10-2024 [facility] Start: 02-03-2024 End: 02-03-2024 Office outpatient visit 25 minutes Mary Telles MD Work Phone: [facility] Comment on above: Right renal mass (Pr imary Dx); Pancreatic duct dilated; Renal cell carcinoma (CMS-HCC) Start: 02-03-2024 End: 02-03-2024 [facility] Start: 01-27-2024 End: 01-27-2024 [facility] Start: 01-11-2024 End: 01-11-2024 Evaluation and management of inpatient LATISHA YOUSSEF [facility] Start: 01-11-2024 End: 01-11-2024 Evaluation and management of inpatient [facility] Start: 01-06-2024 End: 01-06-2024 ambulatory ALPA TAFOYA [facility] Start: 01-05-2024 End: 01-05-2024 Evaluation and management of inpatient DYLAN MONTILLA [facility] Start: 01-03-2024 End: 01-05-2024 Admission to [facility] Phone Call Provider 2 [facility] Start: 01-02-2024 Encounter for preprocedural cardiovascular examination [facility] Start: 01-02-2024 End: 01-02-2024 Office outpatient visit 25 minutes Mckinley Winkler MD Work Phone: [facility] Comment on above: Essential hypertensi on (Primary Dx); Infrarenal abdominal aortic aneurysm (AAA) without rupture (CMS-HCC); Mixed hyperlipidemia; Hypertrophic cardiomyopathy (CMS-HCC); Abnormal ECG; PAD (peripheral artery disease) ([facility]); Chronic kidney disease, unspecified CKD stage; Chest discomfort; Abnormal echocardiogram; Preop cardiovascular exam Start: 01-02-2024 End: 01-02-2024 Patient encounter status Mckinley Winkler MD Work Phone: [facility] Start: 01-02-2024 End: 01-02-[address] [facility] Start: 12-30-2023 End: 12-30-2023 Office outpatient visit 25 minutes Zac Lombardi MD Work Phone: [facility] Comment on above: Renal cell carcinoma (CMS-HCC) (Primary Dx); Infrarenal abdominal aortic aneurysm (AAA) without rupture (CMS-HCC); End stage renal disease (CMS-HCC); Essential hypertension; Cigarette nicotine dependence without complication Start: 12-30-2023 End: 12-30-2023 ambulatory ZAC LOMBARDI [facility] Start: 12-28-2023 End: 12-28-2023 ambulatory Ga FRANK Facility:[facility] Comment on above: End stage renal dise ase ([facility]) (Primary Dx) Start: 12-26-2023 End: 12-26-2023 ambulatory Ga FRANK Facility:[facility] Start: 12-26-2023 End: 12-26-2023 Patient encounter procedure Ga FRANK [facility] [place] Start: 12-22-2023 ambulatory Dylan Montilla Facility:David Joaquin [place] Start: 11-28-2023 ambulatory [facility] Facility:David [facility] Start: 11-16-2023 End: 11-16-2023 ambulatory [facility] Start: 11-16-2023 End: 11-16-2023 ambulatory [facility] Start: 11-16-2023 End: 11-16-2023 ambulatory [facility] Start: 11-14-2023 End: 11-14-2023 ambulatory [facility] Start: 11-11-2023 End: 11-11-2023 Office outpatient new 60 minutes [facility] DEVELOPMENT GEOLOGIST-PRODUCTION CONTROL COORDINATOR Work Phone: [facility] Comment on above: Atherosclerosis of n ative coronary artery of [place] heart without angina pectoris (Primary Dx); Essential hypertension; Infrarenal abdominal aortic aneurysm (AAA) without rupture ([facility]); Mixed hyperlipidemia; Cigarette nicotine dependence without complication; Hypertrophic cardiomyopathy ([facility]); Abnormal ECG; PAD (peripheral artery disease) ([facility]); Chronic kidney disease, unspecified CKD stage; Chest discomfort Start: 11-11-2023 End: 11-11-2023 ambulatory [facility] Start: 10-26-2023 ambulatory [facility] Start: 10-24-2023 End: 10-24-2023 ambulatory SHAZIA ARNOLD Not Available Start: 10-04-2023 Telephone encounter Mary urena MD Work Phone: [facility] Start: 09-30-2023 End: 09-30-2023 Office outpatient visit 15 minutes Mary Telles MD Work Phone: [facility] Comment on above: Right renal mass (Pr imary Dx); Renal cell carcinoma Start: 09-30-2023 End: 09-30-2023 ambulatory MARY TELLES [facility] Start: 09-13-2023 Telephone encounter Mary urena MD Work Phone: [facility] Start: 08-15-2023 Telephone encounter [place] Mckinnon [facility] Start: 08-05-2023 End: 08-05-2023 Postop follow up visit related to original px Mary Telles MD Work Phone: [facility] Comment on above: Renal mass (Primary Dx); Renal cell carcinoma Start: 02-21-2023 ambulatory Dylan Montilla Facility:[facility] Start: 12-27-2022 ambulatory Dylan Montilla Facility:E [facility] Start: 12-04-2022 End: 12-05-[address] DYLAN MONTILLA . Facility: Start: 12-03-2022 End: 12-04-[address] DYLAN MONTILLA . Facility: Start: 11-30-2022 End: 12-01-[address] DYLAN MONTILLA . Facility: Procedures Date Procedure Procedure Detail Performing Clinician Start: 06-26-2024 Follow-up visit Follow-up YUNG WOLFE Start: 05-17-2024 Gluc bld gluc mntr d ev cleared fda spec home use Jeffrey Mcfadden MD Work Phone: Start: 05-17-2024 HEMODIALYSIS INPATIENT Willard De La Paz MD Work Phone: Start: 05-17-2024 Comprehensive metabo lic panel Kylie ALEJANDRO Work Phone: Start: 05-17-2024 Gluc bld gluc mntr d ev cleared fda spec home use Jeffrey Mcfadden MD Work Phone: Start: 05-16-2024 Gluc bld gluc mntr d ev cleared fda spec home use Jeffrey Mcfadden MD Work Phone: Start: 05-16-2024 Gluc bld gluc mntr d ev cleared fda spec home use Jeffrey Mcfadden MD Work Phone: Start: 05-16-2024 Gluc bld gluc mntr d ev cleared fda spec home use Jeffrey Mcfadden MD Work Phone: Start: 05-16-2024 Gluc bld gluc mntr d ev cleared fda spec home use Jeffrey Mcfadden MD Work Phone: Start: 05-16-2024 Gluc bld gluc mntr d ev cleared fda spec home use Jeffrey Mcfadden MD Work Phone: Start: 05-16-2024 Comprehensive metabo lic panel Kylie ALEJANDRO Work Phone: Start: 05-16-2024 Gluc bld gluc mntr d ev cleared fda spec home use Jeffrey Mcfadden MD Work Phone: Start: 05-15-2024 Gluc bld gluc mntr d ev cleared fda spec home use Jeffrey Mcfadden MD Work Phone: Start: 05-15-2024 Gluc bld gluc mntr d ev cleared fda spec home use Jeffrey Mcfadden MD Work Phone: Start: 05-15-2024 Gluc bld gluc mntr d ev cleared fda spec home use Jeffrey Mcfadden MD Work Phone: Start: 05-15-2024 HEMODIALYSIS INPATIENT Demond Garcia MD Work Phone: Start: 05-15-2024 Gluc bld gluc mntr d ev cleared fda spec home use Jeffrey Mcfadden MD Work Phone: Start: 05-15-2024 Comprehensive metabo lic panel Kylie ALEJANDRO Work Phone: Start: 05-15-2024 Gluc bld gluc mntr d ev cleared fda spec home use Jeffrey Mcfadden MD Work Phone: Start: 05-15-2024 Gluc bld gluc mntr d ev cleared fda spec home use Jeffrey Mcfadden MD Work Phone: Start: 05-14-2024 Gluc bld gluc mntr d ev cleared fda spec home use Jeffrey Mcfadden MD Work Phone: Start: 05-14-2024 Gluc bld gluc mntr d ev cleared fda spec home use Jeffrey Mcfadden MD Work Phone: Start: 05-14-2024 Gluc bld gluc mntr d ev cleared fda spec home use Jeffrey Mcfadden MD Work Phone: Start: 05-14-2024 Gluc bld gluc mntr d ev cleared fda spec home use Jeffrey Mcfadden MD Work Phone: Start: 05-14-2024 Gluc bld gluc mntr d ev cleared fda spec home use Jeffrey Mcfadden MD Work Phone: Start: 05-14-2024 Comprehensive metabo lic panel Kylie ALEJANDRO Work Phone: Start: 05-13-2024 Gluc bld gluc mntr d ev cleared fda spec home use Jeffrey Mcfadden MD Work Phone: Start: 05-13-2024 End: 05-13-2024 Potassium serum plasma/whole blood Ravi Nagel DO Work Phone: Start: 05-13-2024 Gluc bld gluc mntr d ev cleared fda spec home use Jeffrey Mcfadden MD Work Phone: Start: 05-13-2024 Assay of phosphorus inorganic Ravi Nagel DO Work Phone: Start: 05-13-2024 Gluc bld gluc mntr d ev cleared fda spec home use Jeffrey Mcfadden MD Work Phone: Start: 05-13-2024 Gluc bld gluc mntr d ev cleared fda spec home use Jeffrey Mcfadden MD Work Phone: Start: 05-13-2024 Assay of amylase Desean Taylor MD Work Phone: Start: 05-13-2024 End: 05-13-2024 Comprehensive metabolic panel Kylie ALEJANDRO Work Phone: Start: 05-12-2024 Gluc bld gluc mntr d ev cleared fda spec home use Jeffrey Mcfadden MD Work Phone: Start: 05-12-2024 CROSSMATCH RBC Jeffrey Mcfadden MD Work Phone: Start: 05-12-2024 End: 05-12-2024 Gluc bld gluc mntr dev cleared fda spec home use Jeffrey Mcfadden MD Work Phone: Start: 05-12-2024 Radiologic exam ches t single view Desean Taylor MD Work Phone: Start: 05-12-2024 Gluc bld gluc mntr d ev cleared fda spec home use Jeffrey Mcfadden MD Work Phone: Start: 05-12-2024 Gluc bld gluc mntr d ev cleared fda spec home use Jeffrey Mcfadden MD Work Phone: Start: 05-12-2024 HEMODIALYSIS INPATIENT Kevin Rosario DO Work Phone: Start: 05-12-2024 End: 05-12-2024 Potassium serum plasma/whole blood Parker Rachel MD Work Phone: Start: 05-12-2024 End: 05-12-2024 Comprehensive metabolic panel Kylie ALEJANDRO Work Phone: Start: 05-11-2024 Gluc bld gluc mntr d ev cleared fda spec home use Jeffrey Mcfadden MD Work Phone: Start: 05-11-2024 Gluc bld gluc mntr d ev cleared fda spec home use Jeffrey Mcfadden MD Work Phone: Start: 05-11-2024 Gluc bld gluc mntr d ev cleared fda spec home use Jeffrey Mcfadden MD Work Phone: Start: 05-11-2024 Gluc bld gluc mntr d ev cleared fda spec home use Jeffrey Mcfadden MD Work Phone: Start: 05-11-2024 Gluc bld gluc mntr d ev cleared fda spec home use Jeffrey Mcfadden MD Work Phone: Start: 05-11-2024 Gluc bld gluc mntr d ev cleared fda spec home use Jeffrey Mcfadden MD Work Phone: Start: 05-11-2024 Comprehensive metabo lic panel Kylie ALEJANDRO Work Phone: Start: 05-11-2024 Gluc bld gluc mntr d ev cleared fda spec home use Jeffrey Mcfadden MD Work Phone: Start: 05-10-2024 Gluc bld gluc mntr d ev cleared fda spec home use Jeffrey Mcfadden MD Work Phone: Start: 05-10-2024 Gluc bld gluc mntr d ev cleared fda spec home use Jeffrey Mcfadden MD Work Phone: Start: 05-10-2024 Radiologic exam abdo men 1 view Cristian Hunter MD Work Phone: Start: 05-10-2024 HEMODIALYSIS INPATIENT Viernst Rosario DO Work Phone: Start: 05-10-2024 End: 05-10-2024 Gluc bld gluc mntr dev cleared fda spec home use Jeffrey Mcfadden MD Work Phone: Start: 05-10-2024 Cyanocobalamin vitamin b-12 Stanley Thomas MD Work Phone: Start: 05-10-2024 Gluc bld gluc mntr d ev cleared fda spec home use Jeffrey Mcfadden MD Work Phone: Start: 05-10-2024 End: 05-10-2024 Natriuretic peptide Parker Rachel MD Work Phone: Start: 05-10-2024 RESP ARTERIAL LINE SETUP Jeffrey Mcfadden MD Work Phone: Start: 05-10-2024 Ecg routine ecg w/le ast 12 lds trcg only w/o i&r Parker Rachel MD Work Phone: Start: 05-10-2024 End: 05-10-2024 Potassium serum plasma/whole blood Parker Rachel MD Work Phone: Start: 05-10-2024 Comprehensive metabo lic panel Kylie ALEJANDRO Work Phone: Start: 05-10-2024 Gluc bld gluc mntr d ev cleared fda spec home use Jeffrey Mcfadden MD Work Phone: Start: 05-10-2024 RESP ARTERIAL LINE SETUP Jeffrey Mcfadden MD Work Phone: Start: 05-09-2024 Gluc bld gluc mntr d ev cleared fda spec home use Jeffrey Mcfadden MD Work Phone: Start: 05-09-2024 RESP ARTERIAL LINE SETUP Jeffrey Mcfadden MD Work Phone: Start: 05-09-2024 RESP ARTERIAL LINE SETUP Jeffrey Mcfadden MD Work Phone: Start: 05-09-2024 Comprehensive metabo lic panel Stanley Thomas MD Work Phone: Start: 05-09-2024 End: 05-09-2024 Calcium ionized Jeffrey Mcfadden MD Work Phone: Start: 05-09-2024 Blood gases any comb ination ph pco2 po2 co2 hco3 Jeffrey Mcfadden MD Work Phone: Start: 05-09-2024 End: 05-09-2024 Calcium ionized Jeffrey Mcfadden MD Work Phone: Start: 05-09-2024 Level i surg patholo gy gross examination only Jeffrey Mcfadden MD Work Phone: Start: 05-09-2024 End: 05-09-2024 Calcium ionized Jeffrey Mcfadden MD Work Phone: Start: 05-09-2024 End: 05-09-2024 WHIPPLE Jeffrey Mcfadden MD Work Phone: Start: 05-09-2024 End: 05-09-2024 Creatinine other source Jeffrey Mcfadden MD Work Phone: Start: 04-30-2024 SKIN / NAIL BIOPSY Sergio Arnold MD Work Phone: Start: 04-30-2024 CRYOTHERAPY SKIN LESION Shazia Pratibha Arnold MD Work Phone: Start: 04-25-2024 Antibody screen [facility] 1 4 Start: 04-25-2024 Comprehensive metabo lic panel Jeffrey Mcfadden MD Work Phone: Start: 04-25-2024 Ecg routine ecg w/le ast 12 lds trcg only w/o i&r Jeffrey Mcfadden MD Work Phone: Start: 04-25-2024 Blood typing serologic abo Jeffrey Mcfadden MD Work Phone: Start: 04-25-2024 CROSSMATCH RBC Jeffrey Mcfadden MD Work Phone: Start: 02-03-2024 MEASURE POST VOID RESIDUAL Mary Telles MD Work Phone: Start: 01-02-2024 Follow-up visit Follow-up [facility] Start: 09-30-2023 MEASURE POST VOID RESIDUAL Mary Telles MD Work Phone: Start: 07-21-2023 Adult depression scr eening assessment Mary Telles MD Work Phone: Start: 03-15-2012 Colonoscopy Ga NI LL Catheterization of subclavian vein Ga FRANK Cholecystectomy Ga FRANK Excision of basal ce ll carcinoma Ga FRANK Comment on above: face Kidney biopsy Ga FRANK Partial nephrectomy Ga FRANK Plan of Treatment Date Care Activity Detail Author Start: 08-14-2025 Adult BMI Screening Adult BMI Screening [facility] Start: 07-03-2025 Tobacco Counseling Tobacco Counseling [facility] Start: 06-26-2025 Adult BMI Screening Adult BMI Screening [facility] Start: 06-26-2025 Tobacco Screening Tobacco Screening [facility] Start: 05-30-2025 Adult BMI Screening Adult BMI Screening [facility] Start: 05-30-2025 Tobacco Screening Tobacco Screening [facility] Start: 05-25-2025 Adult BMI Screening Adult BMI Screening [facility] Start: 05-25-2025 Tobacco Screening Tobacco Screening [facility] Start: 05-17-2025 Adult BMI Screening Adult BMI Screening [facility] Start: 05-09-2025 Tobacco Screening Tobacco Screening [facility] Start: 04-25-2025 Adult BMI Screening Adult BMI Screening [facility] Start: 04-25-2025 Tobacco Screening Tobacco Screening [facility] Start: 04-16-2025 Adult BMI Screening Adult BMI Screening [facility] Start: 04-16-2025 Tobacco Screening Tobacco Screening [facility] Start: 04-10-2025 Adult BMI Screening Adult BMI Screening [facility] Start: 04-10-2025 Tobacco Screening Tobacco Screening [facility] Start: 04-02-2025 Adult BMI Screening Adult BMI Screening [facility] Start: 04-02-2025 Tobacco Screening Tobacco Screening [facility] Start: 03-28-2025 Adult BMI Screening Adult BMI Screening [facility] Start: 03-28-2025 Tobacco Screening Tobacco Screening [facility] Start: 02-28-2025 Adult BMI Screening Adult BMI Screening [facility] Start: 02-28-2025 Tobacco Screening Tobacco Screening [facility] Start: 02-25-2025 Tobacco Screening Tobacco Screening [facility] Start: 02-16-2025 Adult BMI Screening Adult BMI Screening [facility] Start: 02-13-2025 Adult BMI Screening Adult BMI Screening [facility] Start: 02-13-2025 Tobacco Screening Tobacco Screening [facility] Start: 02-09-2025 Adult BMI Screening Adult BMI Screening [facility] Start: 02-09-2025 Tobacco Screening Tobacco Screening [facility] Start: 01-04-2025 Adult BMI Screening Adult BMI Screening [facility] Start: 01-04-2025 Tobacco Screening Tobacco Screening [facility] Start: 01-01-2025 Adult BMI Screening Adult BMI Screening [facility] Start: 01-01-2025 Tobacco Screening Tobacco Screening [facility] Start: 12-29-2024 Adult BMI Screening Adult BMI Screening [facility] Start: 11-16-2024 End: 11-16-2024 Patient encounter procedure 11/16/2024 10:30 AM EDT Of fice Visit [facility] [address] [place] [address] Stanley Gillette MD [address] [facility] [address] [place], [place] [id number] [facility] Start: 11-15-2024 Adult BMI Screening Adult BMI Screening [facility] Start: 11-15-2024 Tobacco Screening Tobacco Screening [facility] Start: 10-29-2024 End: 10-29-2024 Patient encounter procedure 10/29/2024 9:35 AM EDT Off ice Visit [facility] [address] [place] [address] Shazia Arnold MD [address] [place] [address] [facility] Start: 10-26-2024 End: 10-26-2024 Patient encounter procedure 10/26/2024 11:30 AM EDT Of fice Visit [facility] [address] [facility] [address] [place] [phone] Yung Wolfe PA [address], [facility] [address] [place] [address] [facility] Start: 10-25-2024 End: 10-25-2024 Patient encounter procedure 10/25/2024 10:00 AM EDT Of fice Visit [facility] [address] [place] [phone] Yung Wolfe PA [address] [place] [address] [facility] Start: 10-11-2024 End: 10-11-2024 ambulatory [facility] Start: 10-11-2024 End: 10-11-2024 Patient encounter procedure [facility] Start: 10-09-2024 End: 10-09-2024 Patient encounter procedure 10/09/2024 10:45 AM EDT Appointment [facility] [address] [place] [phone] [facility] Start: 10-03-2024 Tobacco Screening Tobacco Screening [facility] Start: 2024 End: 2024 ambulatory [facility] Start: 2024 End: 2024 Patient encounter procedure 2024 1:00 PM EDT Appointment [facility] [address] [place] [address] [facility] Start: 09-29-2024 Adult BMI Screening Adult BMI Screening [facility] Start: 09-29-2024 Tobacco Screening Tobacco Screening [facility] Start: 08-23-2024 End: 08-23-2024 Patient encounter procedure 08/23/2024 11:10 AM EST Of fice Visit [facility] [address] [place] [address] Zac Lombardi MD [address], [address] [place] [address] [facility] Start: 08-22-2024 End: 08-22-2025 US.doppler Extremity arteries - bilateral for physiologic artery study Vas art doppler lwr bilat mult lev/PVR Vascular Ultrasound Routine End stage renal disease ([facility]) PAD (peripheral artery disease) ([facility]) Essential hypertension Expected: 08/22/2024, Expires: 08/22/2025 [facility] Work Phone: Comment on above: Expected: 08/22/2024, Expires: Start: 08-22-2024 Subsequent hospital visit by physician [facility] Vascular Start: 08-21-2024 End: 08-21-2024 Patient encounter procedure 08/21/2024 2:30 PM EST Off ice Visit [facility] [address] [place] [address] Mary Telles MD [address] [place] [address] [facility] Start: 08-08-2024 End: 08-08-2024 [facility]ulatory [facility] Start: 08-08-2024 End: 08-08-2024 Patient encounter procedure 08/08/2024 11:30 AM EST Of fice [facility] [address] [place] [phone] Mary Telles MD [address] [place] [address] [facility] Start: 08-05-2024 Adult BMI Screening Adult BMI Screening [facility] Start: 08-05-2024 End: 02-02-2025 CT Abdomen W contrast IV CT abdomen with contrast Imaging Routine Renal cell carcinoma ([facility]) Expected: 08/05/2024 (Approximate), Expires: 02/02/2025 [facility] Work Phone: Comment on above: Expected: 08/05/2024 (Approximate), Expi res: 02/02/2025 Start: 08-05-2024 Tobacco Screening Tobacco Screening [facility] Start: 08-03-2024 End: 08-03-2024 ambulatory [facility] - CT Imaging Start: 08-03-2024 End: 08-03-2024 Patient encounter procedure [facility] - CT Imaging Start: 07-25-2024 End: 05-25-2025 CT Abdomen W contrast IV CT abdomen with contrast Imaging Routine 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, unspecified B-cell lymphoma type (CMS-HCC) Expected: 07/25/2024, Expires: 05/25/2025 [facility] Comment on above: Expected: 07/25/2024, Expires: Start: 07-25-2024 End: 05-25-2025 CT Chest limited W contrast IV CT chest with contrast Imaging Routine 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, unspecified B-cell lymphoma type (CMS-HCC) Expected: 07/25/2024, Expires: 05/25/2025 [facility] Work Phone: Comment on above: Expected: 07/25/2024, Expires: Start: 07-21-2024 Depression Screening Depression Screening [facility] Start: 06-27-2024 End: 06-27-2024 Patient encounter procedure 06/27/2024 2:00 PM EST [facility] [address] [place] [phone] Yung Wolfe PA [address] [place] [address] [facility] Start: 05-30-2024 End: 05-30-2024 Patient encounter procedure 05/30/2024 3:00 PM EST [facility] [address] [place] [address] Yung Wolfe PA [address], [facility] [address] [place], [place] [phone] [facility] Start: 05-22-2024 End: 05-22-2024 Patient encounter procedure 05/22/2024 3:00 PM EDT Off ice Visit [facility] [address] [facility] [address] [place] [address] Amanda Randall PA-C [address] [place], [place] [phone] [facility] Start: 05-09-2024 End: 05-09-2024 Admission to same day surgery center 05/09/2024 10:30 AM EDT - 05/09/2024 4:00 PM EDT Surgery [facility] Surgery [address] [place] [place] [phone] Jeffrey Mcfadden MD [address], [facility] [address] [place] [phone] PANCREATECTOMY PARTIAL/POSSIBLE DISTAL [facility] Surgery Comment on above: PANCREATECTOMY PARTIAL/POSSIBLE DISTAL Start: 05-09-2024 End: 05-09-2024 Anesthesia consultation 05/09/2024 10:30 AM EDT Anesthesia Event [facility] Surgery [address] [place] [address]. [place] [phone] Sobeida Ayala MD [address] [place] [address] [facility] Surgery Start: 05-09-2024 End: 05-09-2024 PANCREATECTOMY PANCREATECTOMY PANCREATIC NEOPLASM 05/09/2024 10:30 AM EDT [facility] Start: 05-09-2024 End: 05-09-2024 SPLENECTOMY SPLENECTOMY PANCREATIC NEOPLASM 05/09/2024 10:30 AM EDT [facility] Start: 05-09-2024 Subsequent hospital visit by physician 05/09/2024 10:30 AM EDT Hospital Encounter [facility] Surgery [address] [place] [phone] Jeffrey Mcfadden MD [address], [facility] [address] [place] [phone] [facility] - Surgery Start: 05-09-2024 End: 05-09-2024 WHIPPLE WHIPPLE PANCREATIC NEOPLASM 05/09/2024 10:30 AM EDT [facility] Start: 05-07-2024 End: 05-07-2024 Patient encounter procedure 05/07/2024 3:10 PM EDT Off ice [facility] [address] [place] [phone] Zac Lombardi MD [address], [address] [phone] [facility] Start: 04-30-2024 End: 04-30-2024 Patient encounter procedure 04/30/2024 9:05 AM EDT Off ice Visit [facility] [address] [place] [address] Shazia Arnold MD [address] [place] [address] Arrived [facility] Comment on above: Arrived Start: 04-25-2024 End: 04-25-2024 Patient encounter procedure 04/25/2024 1:30 PM EDT Procedure [facility] On [address] [place] [address] [facility] Start: 04-16-2024 End: 04-16-2024 Patient encounter procedure 04/16/2024 2:00 PM EDT Off ice Visit [facility] [address] [place] [address] Zac Lombardi MD [address], [facility] [address] [place] [address] [facility] Start: 04-11-2024 End: 04-11-2024 Patient encounter procedure 04/11/2024 1:15 PM EDT Off ice Visit [facility] [address] [facility] [address] [facility] [place] [phone] Mckinley Winkler MD [address] [facility] [place] [address] [facility] Start: 04-04-2024 End: 04-04-2024 Admission to same day surgery center 04/04/2024 11:30 AM EDT - 04/04/2024 1:00 PM EDT Surgery [facility] - Endoscopy [address] [facility] [place] [address] Polly Reeder MD [address] [facility], [address] [address] ESOPHAGOGASTRODUODENOSCOPY DIAGNOSTIC [08234 (CPT )] [facility] Endoscopy Comment on above: ESOPHAGOGASTRODUODENOSCOPY DIAGNOSTIC [4 3235 (CPT )] Start: 04-04-2024 End: 04-04-2024 Esophagogastroduodenoscopy transoral diagnostic ESOPHAGOGASTRODUODENOSCOPY DIAGNOSTIC Pancreatic duct dilated 04/04/2024 11:30 AM EDT [facility] Start: 04-04-2024 End: 04-04-2024 Esophagoscopy flexible transoral ultrasound exam ENDOSCOPIC ULTRASOUND UPPER Pancreatic duct dilated 04/04/2024 11:30 AM EDT [facility] Start: 04-04-2024 Subsequent hospital visit by physician 04/04/2024 11:30 AM EDT Hospital Encounter [facility] Endoscopy [address] [place] [phone] Polly Reeder MD [address] [facility], [address] [place] [address] [facility] Endoscopy Start: 04-03-2024 End: 07-03-2024 Echo complete W/O contrast Echo complete W/O contrast Echocardiography Routine Essential hypertension Hypertrophic cardiomyopathy (CMS-HCC) Abnormal ECG Abnormal echocardiogram Expected: 04/03/2024 (Approximate), Expires: 07/03/2024 [facility] Work Phone: Comment on above: Expected: 04/03/2024 (Approximate), Expi res: 07/03/2024 Start: 04-02-2024 End: 04-02-2024 Patient encounter procedure 04/02/2024 2:10 PM EDT Off ice Visit [facility] [address] [place] [phone] Zac Lombardi MD [address], [address] [phone] [facility] Start: 04-02-2024 End: 04-02-2025 US.doppler Aorta and Iliac artery - bilateral Vas aorta/iliac duplex complete Vascular Ultrasound Routine Renal cell carcinoma (CMS-HCC) Infrarenal abdominal aortic aneurysm (AAA) without rupture (CMS-HCC) Expected: 04/02/2024, Expires: 04/02/2025 [facility] Work Phone: Comment on above: Expected: 04/02/2024, Expires: Start: 04-01-2024 End: 09-29-2024 CT Abdomen W contrast IV CT abdomen with contrast Imaging Routine Renal cell carcinoma Expected: 04/01/2024 (Approximate), Expires: 09/29/2024 [facility] Work Phone: Comment on above: Expected: 04/01/2024 (Approximate), Expi res: 09/29/2024 Start: 04-01-2024 End: 09-29-2024 XR Chest PA and Lateral X-ray chest 2 views Imaging Routine Renal cell carcinoma Expected: 04/01/2024 (Approximate), Expires: 09/29/2024 [facility] Comment on above: Expected: 04/01/2024 (Approximate), Expi res: 09/29/2024 Start: 03-25-2024 Influenza vaccination Influenza Vaccine [facility] Start: 02-29-2024 End: 02-29-2024 Patient encounter procedure 02/29/2024 11:30 AM EDT Of fice Visit [facility] [address] [place] [address] [place] [phone] [place] [address] [place] [address], [address] [place] [address] [facility] Start: 02-16-2024 End: 02-15-2025 MRCP Abdomen WO and W contrast IV MRCP with MRI abdomen with and without contrast Imaging STAT Pancreatic duct dilated Pancreatic lesion Expected: 02/16/2024, Expires: 02/15/2025 [facility] Work Phone: Comment on above: Expected: 02/16/2024, Expires: Start: 02-14-2024 End: 02-14-2024 Patient encounter procedure 02/14/2024 2:30 PM EDT Off ice Visit [facility] [address] [facility] [address] [place] [address] Jeffrey Mcfadden MD [address] [place] [address] [facility] Start: 02-03-2024 End: 02-03-2024 Patient encounter procedure [facility] - Radiology Start: 02-03-2024 End: 08-05-2024 MR Abdomen WO and W contrast IV MR abdomen with and without contrast Imaging Routine Renal cell carcinoma Expected: 02/03/2024 (Approximate), Expires: 08/05/2024 [facility] Work Phone: Comment on above: Expected: 02/03/2024 (Approximate), Expi res: 08/05/2024 Start: 02-03-2024 End: 08-05-2024 XR Chest PA and Lateral X-ray chest 2 views Imaging Routine Renal cell carcinoma Expected: 02/03/2024 (Approximate), Expires: 08/05/2024 [facility] Comment on above: Expected: 02/03/2024 (Approximate), Expi res: 08/05/2024 Start: 01-27-2024 End: 01-27-2024 Patient encounter procedure [facility] - CT Start: 01-23-2024 End: 01-23-2024 Patient encounter procedure 01/23/2024 8:45 AM EDT Appointment [facility] - MRI Imaging [address] [place] [phone] Mary Telles MD [address] [place] [address] [facility] - MRI Imaging Start: 01-11-2024 End: 01-11-2024 Admission to same day surgery center 01/11/2024 3:00 PM EDT - 01/11/2024 5:00 PM EDT Surgery [facility] Surgery [facility] [place] [address] Zac Lombardi MD [address], [address] [phone] CREATION ARTERIOVENOUS FISTULA UPPER EXTREMITY-vs avg [facility] Surgery Comment on above: CREATION ARTERIOVENOUS FISTULA UPPER EXT REMITY-vs avg Start: 01-11-2024 End: 01-11-2024 CREATION ARTERIOVENOUS FISTULA UPPER EXTREMITY CREATION ARTERIOVENOUS FISTULA UPPER EXTREMITY End stage renal disease ([facility]) 01/11/2024 3:00 PM EDT [facility] Start: 01-11-2024 Subsequent hospital visit by physician 01/11/2024 3:00 PM EDT Hospital Encounter [facility] Surgery [address] [place] [address] Zac Lombardi MD [address] [place] [address] [facility] Surgery Start: 01-06-2024 End: 01-06-2024 Patient encounter procedure 01/06/2024 8:30 AM EDT Appointment [facility] [address] [place] [address] Alpa Tafoya MD [address] [place] [address] [facility] Start: 01-06-2024 Subsequent hospital visit by physician 01/06/2024 8:30 AM EDT Hospital Encounter [facility] [address] [place] [address] Alpa Tafoya MD [address] [facility] [address] [place] [address] [facility] Start: 01-03-2024 End: 01-03-2024 Admission to establishment 01/03/2024 9:30 AM EDT Supp ort Visit [facility] On [address] [place] [address] [facility] On [facility] Start: 01-02-2024 End: 01-02-2024 Patient encounter procedure 01/02/2024 9:45 AM EDT Off ice Visit [facility] [address] [facility] [address] [place] [phone] Mckinley Winkler MD [address] [place] [address] [facility] Start: 12-30-2023 End: 12-30-2023 Patient encounter procedure 12/30/2023 2:10 PM EDT Off ice Visit [facility] [address] [place] [address] Zac Lombardi MD [address], [address] [address] [facility] Start: 12-28-2023 End: 12-27-2024 Vas vessel mapping hemodialysis bi Vas vessel mapping hemodialysis bi Vascular Ultrasound Routine End stage renal disease ([facility]) Expected: 12/28/2023, Expires: 12/27/2024 [facility] Work Phone: Comment on above: Expected: 12/28/2023, Expires: Start: 11-12-2023 End: 11-10-2024 Holter monitor study Holter monitor 3-5 days Cardiac Services Routine Hypertrophic cardiomyopathy ([facility]) Abnormal ECG Chest discomfort Expected: 11/12/2023 (Approximate), Expires: 11/10/2024 [facility] [employer] Comment on above: Expected: 11/12/2023 (Approximate), Expi res: 11/10/2024 Start: 11-11-2023 End: 11-10-2024 NM Heart Perfusion W stress and W radionuclide IV Nuc stress Lexiscan Cardiac Services Routine Essential hypertension Mixed hyperlipidemia Cigarette nicotine dependence without complication Hypertrophic cardiomyopathy ([facility]) Abnormal ECG Chronic kidney disease, unspecified CKD stage Chest discomfort 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 Expected: 11/11/2023 (Approximate), Expires: 11/10/2024 [facility] Work Phone: Comment on above: Expected: 11/11/2023 (Approximate), Expi res: 11/10/2024 Start: 09-28-2023 End: 09-28-2023 Patient encounter procedure 09/28/2023 10:30 AM EST Of fice Visit [facility] [address] [place] [phone] Mary Telles MD [address] [place] [phone] Lexus Lainez PA [address] [place] [phone] [facility] Start: 09-09-2023 End: 09-09-2023 Patient encounter procedure 09/09/2023 4:30 PM EST Off ice Visit [facility] [address] [place] [phone] Mary Telles MD [address] [place] [phone] [facility] Start: 03-25-2023 Influenza vaccination Influenza Vaccine [facility] Start: 2022 Fall Risk Screening Fall Risk Screening [facility] Start: 1976 Administration of varicella zoster vaccine Zoster (Shingles) Vaccine (1 of 2) [facility] Start: 1976 DTaP,Tdap and Td Vaccines (1 - Tdap) DTaP,Tdap and Td Vaccines (1 - Tdap) [facility] Start: 10-02-1975 Adult BMI Follow Up Plan Adult BMI Follow Up Plan [facility] Start: 10-02-1975 Diabetic foot examination Diabetic Foot Exam [facility] Start: 1957 Glaucoma screening Diabetic Ophthalmology Exam [facility] Start: 1957 Medicare Annual Wellness Visit Medicare Annual Wellness Visi t [facility] Start: 1957 Tobacco Counseling Tobacco Counseling [facility] Start: 1957 Urine screening for protein Urine Microalbumin [facility] Bedside Glucose *Cam ce/Obtain serum glucose if >500(>600 [facility]) per glucometer. [employer] Work Phone: Bedside Glucose *Cam ce/Obtain serum glucose if >500(>600 [facility]) per glucometer. 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, unspecified B-cell lymphoma type ([facility]) monthly for 12 Occurrences starting 05/25/2024 until 05/25/2025 [employer] Comment on above: monthly for 12 Occurrences starting 07/2023 until 05/25/2025 End: 02-28-2025 Colonoscopy Colonoscopy GI Routine Encounter for colorectal cancer screening 1 Occurrences starting 02/29/2024 until 02/28/2025 [employer] Work Phone: Comment on above: 1 Occurrences starting 02/29/2024 until 02/28/2025 End: 05-30-2024 Comprehensive metabolic 2000 panel - Serum or Plasma [employer] End: 05-25-2025 Comprehensive metabolic 2000 panel - Serum or Plasma Comprehensive metabolic panel Lab Routine 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, unspecified B-cell lymphoma type ([facility]) monthly for 12 Occurrences starting 05/25/2024 until 05/25/2025 [employer] Comment on above: monthly for 12 Occurrences starting 07/2023 until 05/25/2025 End: 02-12-2025 Creatinine includes GFR, serum Creatinine includes GFR , serum Lab Routine Renal cell carcinoma ([facility]) 1 Occurrences starting 02/13/2024 until 02/12/2025 [employer] Work Phone: Comment on above: 1 Occurrences starting 02/13/2024 until 02/12/2025 Dermatopathology exam Dermatopat hology exam Pathology and Cytology Timed Neoplasm of unspecified behavior of bone, soft tissue, and skin Release Upon Ordering for 1 Occurrences starting 04/30/2024 [facility] [employer] Work Phone: Comment on above: Release Upon Ordering for 1 Occurrences starting 04/30/2024 End: 02-28-2025 Endoscopic Ultrasonography, GI Upper Endoscopic Ultrasonography, GI Upper GI Routine Pancreatic duct dilated 1 Occurrences starting 02/29/2024 until 02/28/2025 [employer] Comment on above: 1 Occurrences starting 02/29/2024 until 02/28/2025 End: 05-22-2025 Flow cytometry blood only Flow cytometry blood only La b Routine B-cell lymphoma of intra-abdominal lymph nodes, unspecified B-cell lymphoma type ([facility]) 1 Occurrences starting 05/22/2024 until 05/22/2025 [employer] Work Phone: Comment on above: 1 Occurrences starting 05/22/2024 until 05/22/2025 End: 05-30-2024 Magnesium [Mass/volume] in Serum or Plasma [employer] Oxygen Therapy - Janna ntain SpO2: 90%; *[employer] Guidelines for O2: Yes; Document: \[employer]\epic\EPIC _Reference\Orders\Respiratory Care Guidelines\CPG Oxygen 2022.pdf [employer] Work Phone: End: 02-28-2025 Pancreatic Elastase, F Pancreatic Elastase, F Lab Routine Chronic pancreatitis, unspecified pancreatitis type ([facility]) 1 Occurrences starting 02/29/2024 until 02/28/2025 [employer] Work Phone: Comment on above: 1 Occurrences starting 02/29/2024 until 02/28/2025 End: 05-30-2024 Phosphate [Mass/volume] in Serum or Plasma [employer] Payers Date Payer Category Payer Managed Care Other (unspecified) [id number] 2022 Medicare [id number] 1.315 2022 Unknown [id number]. 1.13.693.2.7.3.92314 1.315 2022 Unknown [id number] 2018 Private Health Insurance [id number] 2012 Private Health Insurance [id number] 1959 Medicare [id number] 1959 Unknown [id number] 1957 Unknown [id number] 2.16.840.1.667868.3.579.2.593 1957 Unknown [id number] 2.16.840.1.121074.3.579.2.593 1957 Unknown [id number] 2.16.840.1.917719.3.579.2.593 1957 Unknown [id number] 2.16.840.1.543495.3.579.2.727 1957 Unknown [id number] 2.16.840.1.291975.3.579.2.727 1957 Unknown [id number] 2.16.840.1.054236.3.579.2.1286 1957 Unknown [id number] 2.16.840.1.888739.3.579.2.1286 1957 Unknown [id number] 2.16.840.1.775526.3.579.2.1286 1957 Unknown [id number] 2.16.840.1.980187.3.579.2.1259 1957 Unknown [id number] 2.16.840.1.379762.3.579.2.1259 1957 Unknown [id number] 2.16.840.1.256679.3.579.2.1286 1957 Unknown [id number] 2.16.840.1.283246.3.579.2.1286 1957 Unknown [id number] 2.16.840.1.052385.3.579.2.1286 1957 Unknown [id number] 2.16.840.1.883537.3.579.2.1286 8 Unknown [id number] 2.16.840.1.129385.3.579.2.1285 1957 Unknown [id number] 2.16840.1.566390.3.579.2.1285 1957 Unknown [id number] 2.16840.1.123177.3.579.2.1285 1957 Unknown [id number] 2.840.1.215118.3.579.2.1285 1957 Unknown [id number] 2.840.1.554718.3.579.2.1285 1957 Unknown [id number] 2.840.1.812368.3.579.2.1285 1957 Unknown [id number] 2.0.1.948683.3.579.2.1285 1957 Unknown [id number] 2.840.1.277180.3.579.2.1285 1957 Unknown [id number] 2.840.1.857528.3.579.2.1285 1957 Unknown [id number] 2.840.1.745879.3.579.2.1285 1957 Unknown [id number] 2.0.1.178307.3.579.2.1285 1957 Unknown [id number] 2.840.1.730840.3.579.2.1285 1957 Unknown [id number] 2.840.1.807816.3.579.2.1285 1957 Unknown [id number] 2.840.1.435255.3.579.2.1285 1957 Unknown [id number] 2.840.1.801206.3.579.2.1285 1957 Unknown [id number] 2.16.840.1.838597.3.579.2.1285 1957 Unknown [id number] 2.16.840.1.546268.3.579.2.1285 1957 Unknown [id number] 2.16.840.1.827362.3.579.2.1285 1957 Unknown [id number] 2.16.840.1.697838.3.579.2.1285 1957 Unknown [id number] 2.16.840.1.969919.3.579.2.1285 1957 Unknown [id number] 2.840.1.327237.3.579.2.1285 1957 Unknown [id number] 2.840.1.217963.3.579.2.1285 1957 Unknown [id number] 2.840.1.194179.3.579.2.1285 1957 Unknown [id number] 2.840.1.830723.3.579.2.1285 1957 Unknown [id number] 2.840.1.734842.3.579.2.1285 1957 Unknown [id number] 2.840.1.370944.3.579.2.1285 1957 Unknown [id number] 2.16840.1.496421.3.579.2.1285 1957 Unknown [id number] 2.16.840.1.925640.3.579.2.1285 1957 Unknown [id number] 2.16.840.1.637322.3.579.2.1285 1957 Unknown [id number] 2.16.840.1.512577.3.579.2.1285 1957 Unknown [id number] 2.16.840.1.300357.3.579.2.128 1957 Unknown [id number] 2.16.840.1.603596.3.579.2.1285 1957 Unknown [id number] 2.16.840.1.146410.3.579.2.1285 1957 Unknown [id number] 2.16.840.1.406450.3.579.2.1285 1957 Unknown [id number] 2.16.840.1.248347.3.579.2.1285 1957 Unknown [id number] 2.16.840.1.291090.3.579.2.1285 1957 Unknown [id number] 2.16.840.1.380063.3.579.2.1285 1957 Unknown [id number] 2.840.1.769959.3.579.2.1285 1957 Unknown [id number] 2.16840.1.450384.3.579.2.1285 1957 Unknown [id number] 2.16840.1.930156.3.579.2.1285 1957 Unknown [id number] 2.840.1.698379.3.579.2.1285 1957 Unknown [id number] 2.840.1.293793.3.579.2.1285 1957 Unknown [id number] 2.840.1.116397.3.579.2.1285 1957 Unknown [id number] 2.840.1.883671.3.579.2.1286 Social History Date Type Detail Facility Start: 12-26-2023 Tobacco smoking status Heavy t obacco smoker (finding) [facility] Tobacco smoking status Never [facility] Start: 09-04-2020 End: 10-24-2023 Sex Assigned At Male Leland [facility] Start: 07-25-1982 End: 04-25-2024 Tobacco smoking status NHIS Smokes tobacco daily [facility] Start: 07-25-1982 History of tobacco use Cigarette Smo ker [facility] Start: 05-26-2023 End: 04-25-2024 Tobacco use and exposure Smokeless tobacco non-user [facility] Start: 09-04-2020 End: 10-24-2023 History of Social function [facility] Start: 1957 Sex assigned at Not on file P [facility] History of tobacco use Passive smoker [facility] Start: 05-30-2024 End: 06-26-2024 Alcoholic beverage intake Current non-drinker of alcohol (finding) [facility] Start: 04-25-2024 Tobacco Comment Currently smok ing 1/2ppd. [facility] Start: 02-27-2015 Sex Male (finding) [facility] Start: 02-16-2024 Gender identity Identifies as male gender (finding) [facility] Has the electric, [email or web address] s, oil, or water company threatened to shut off services in your home in past 12Mo No [facility] Start: 07-07-2023 Tobacco Comment Currently smok ing 1/2ppd [facility] Start: 01-11-2024 Tobacco Comment Currently smok ing 1/2ppd. Smoked today 01/11/24 [facility] Start: 03-28-2024 End: 04-04-2024 Tobacco smoking status NHIS Ex-smoker [facility] Start: 07-25-1982 History of tobacco use Current smoke r [facility] Medical Equipment Procedure Code Equipment Code Equipment Origin al Text Equipment Identifier Dates [id number], [id number] [facility] Start: 07-27-2023 1 Unit by miscellaneous route 4 (four) times a day before meals and nightly. [id number] Start: 07-27-2023 End: 01-02-2024 Goals Date Patient Goal Desired Activity /State Personal health goal Comment on above: Formatting of this n ote might be different from the original. Evaluation of progress towards goal: Progress to a safe discharge Personal health goal Comment on above: Formatting of this n ote might be different from the original. Evaluation of progress towards goal: Patient plans for a safe discharge. Functional Status Date Assessment Result Facility 12-26-2023 Functional Status N/A [facility] [place] [facility] Mental Status Date Assessment Result Facility [facility] Clinical Notes 08-05-2023 to 08-23-2024 Zac Lombardi MD - 08/23/2024 11:10 AM ESTTelephone Encounter - Lizet Vazquez - 08/17/2024 2:22 PM ESTTelephone Encounter - Lizet Vazquez - 08/17/2024 2:22 PM ESTPatient InstructionsAttachments Note Date & Type Note Facility 08-23-2024 History of Present illness Narrative CHIEF COMPLAINT: Chief Complaint Patient presents with Renal cell carcinoma ([facility]) Infrarenal abdominal aortic HISTORY OF PRESENT ILLNESS: Zev Crystal is a 68 y.o. male who presents to the office today for evaluation ofMalfunctioning left arm brachiocephalic AV fistula as well as an infrarenal abdominal aortic aneurysm and lower extremity peripheral arterial disease with severe claudications. Patient reports that his fistula is working very well. They have no problems with that. Patient however complains of severe pain when he walks about 1 block distance. Maybe even less than that he will start having the pain specially over the left leg. He has to stop. At rest the patient does not have any pain at all. Patient denies any discolorations or wounds over his lower extremities. Patient has no other complaints. ALLERGIES: No Known Allergies MEDICATIONS: Current Outpatient Medications Medication Sig Dispense Refill ALPRAZolam (XANAX) 0.25 mg tablet Take 1 tablet (0.25 mg total) by mouth 3 (three) times a day as needed for anxiety. atorvastatin (LIPITOR) 40 mg tablet Take 1 tablet (40 mg total) by mouth nightly Indications: high cholesterol. carvedilol (COREG) 25 mg tablet Take 1 tablet (25 mg total) by mouth in the morning and 1 tablet (25 mg total) in the evening. Take with meals. Indications: high blood pressure. famotidine (PEPCID) 20 mg tablet Take 1 tablet (20 mg total) by mouth in the morning and 1 tablet (20 mg total) before bedtime. Do all this for 180 days. 180 tablet 1 glimepiride (AMARYL) 2 mg tablet Take 1 tablet (2 mg total) by mouth every morning before breakfast Indications: type 2 diabetes mellitus. levothyroxine (SYNTHROID, LEVOTHROID) 50 MCG tablet Take 1 tablet (50 mcg total) by mouth in the morning. Indications: a condition with low thyroid hormone levels. wugaww-nuaimsnm-vubtrin (CREON) 36,000-114,000- 180,000 unit capsule,delayed release(DR/EC) 2 capsules with Breakfast and Dinner and 1 with snacks 200 capsule 11 loperamide (IMODIUM A-D) 2 mg tablet Take 1 tablet (2 mg total) by mouth 4 (four) times a day as needed for diarrhea. losartan (COZAAR) 25 mg tablet Take 1 tablet (25 mg total) by mouth in the morning. 1x per day. metFORMIN (GLUCOPHAGE) 500 mg tablet Take 1 tablet (500 mg total) by mouth as needed (patient states he only occasionally takes this) Indications: prevention of type 2 diabetes mellitus. ondansetron ODT (ZOFRAN ODT) 4 mg disintegrating tablet Dissolve 1 tablet (4 mg total) on tongue every 8 (eight) hours as needed for nausea or vomiting. 20 tablet 0 sevelamer (RENVELA) 800 mg tablet Take 1 tablet (800 mg total) by mouth in the morning and 1 tablet (800 mg total) at noon and 1 tablet (800 mg total) in the evening. Take with meals. Indications: renal osteodystrophy with hyperphosphatemia. No current facility-administered medications for this visit. SOCIAL HISTORY: Social History Tobacco Use Smoking status: Every Day Average packs/day: 1 pack/day for 41.6 years (41.6 ttl pk-yrs) Types: Cigarettes Start date: 07/25/1982 Passive exposure: Current Smokeless tobacco: Never Tobacco comments: Currently smoking 1/2ppd. Substance Use Topics Alcohol use: No REVIEW OF SYSTEMS: Review of Systems Constitutional: Negative for activity change, appetite change, chills, fatigue, fever and unexpected weight change. HENT: Negative for facial swelling and trouble swallowing. Eyes: Negative for visual disturbance. Respiratory: Negative for chest tightness and shortness of breath. Cardiovascular: Negative for chest pain and leg swelling. Gastrointestinal: Negative for abdominal pain. Genitourinary: Negative for flank pain and frequency. Musculoskeletal: Positive for arthralgias, back pain and myalgias. Negative for gait problem and joint swelling. Skin: Negative for color change, pallor, rash and wound. Neurological: Negative for dizziness, syncope, facial asymmetry, speech difficulty, weakness, light-headedness and numbness. Hematological: Negative for adenopathy. PHYSICAL EXAM: Physical Exam Vitals reviewed. Constitutional: General: He is not in acute distress. Neck: Vascular: Carotid bruit present. No JVD. Cardiovascular: Rate and Rhythm: Normal rate. Pulses: Carotid pulses are on the right side with bruit and on the left side with bruit. Radial pulses are 2+ on the right side and 2+ on the left side. Dorsalis pedis pulses are detected w/ doppler on the right side and detected w/ doppler on the left side. Posterior tibial pulses are detected w/ doppler on the right side and detected w/ doppler on the left side. Heart sounds: No murmur heard. Pulmonary: Breath sounds: Normal breath sounds. Abdominal: Palpations: Abdomen is soft. There is no mass. Tenderness: There is no abdominal tenderness. Musculoskeletal: General: No tenderness. Cervical back: Neck supple. Right lower leg: No edema. Left lower leg: No edema. Feet: Right foot: Skin integrity: No ulcer. Left foot: Skin integrity: No ulcer. Skin: General: Skin is warm. Coloration: Skin is not pale. Findings: No erythema. Neurological: Mental Status: He is alert and oriented to person, place, and time. Sensory: No sensory deficit. Motor: No weakness. Coordination: Coordination normal. Gait: Gait normal. Deep Tendon Reflexes: Reflexes normal. VASCULAR EXAM: Vascular: Right Lower Extremity Right lower extremity pulses DP: detected w/ doppler Doppler findings: monophasic PT: detected w/ doppler Doppler findings: monophasic Right lower extremity edema: none Right Lower Extremity Skin Integrity: Negative for ulcer. Left Lower Extremity Left lower extremity pulses DP: detected w/ doppler Doppler findings: monophasic PT: detected w/ doppler Doppler findings: monophasic Left lower extremity edema: none Left Lower Extremity Skin Integrity: Negative for ulcer. Right Upper Extremity Right upper extremity pulses Radial: 2+ Left Upper Extremity Left upper extremity pulses Radial: 2+ Carotid: Positive for right carotid bruit. Positive for left carotid bruit. ASSESSMENT AND PLAN: Jose was seen today for renal cell carcinoma ([facility]) infrarenal abdominal aortic. Diagnoses and all orders for this visit: Claudication ([facility]) PAD (peripheral artery disease) ([facility]) Chronic kidney disease, unspecified CKD stage Renal cell carcinoma ([facility]) Aneurysm of infrarenal abdominal aorta, unspecified whether ruptured ([facility]) CLL (chronic lymphocytic leukemia) ([facility]) Hypertrophic cardiomyopathy ([facility]) I reviewed the patient ABIs and arterial duplex. Patient has bilateral moderate arterial disease on the left side is worse than the right side. Patient appears to be symptomatic with claudication and it is lifestyle limiting. Patient will need a lower extremity angiogram. Concerning his infrarenal aortic aneurysm I reviewed the CT scan and the aortic duplex ultrasound. The aneurysm is around 4.5 cm in the largest diameter. At this point no need for any further studies or intervention. He will need another CT scan or ultrasound in 6 months to a year. Concerning the fistula I removed the stitches today in the clinic. Patient to continue using the fistula. We will schedule him for lower extremity angiogram for severe claudications specially on the left side. documented [facility] encounter [facility] 08-17-2024 Miscellaneous Notes patient called the office stating that he is having pain in left leg; been going on for a couple of months now; testing and follow up isn't until september; patient states that he has been active; pain only subsides when resting; has a trip coming up in August; please advise documented in this encounter [employer] 08-17-2024 Telephone encounter Note patient called the office stating that he is having pain in left leg; been going on for a couple of months now; testing and follow up isn't until september; patient states that he has been active; pain only subsides when resting; has a trip coming up in August; please advise [facility] History of Present illness Narrative HEPATOBILIARY AND PANCREAS SURGERY Post Operative Visit HPI: Zev Crystal presents to the clinic 7 weeks following open central pancreatectomy with transition to standard Whipple, falciform ligament flap, and Prevena application (05/09/2024). Final pathology revealed: IPMN with high-grade dysplasia within head of pancreas, margins not involved. Periportal, peripancreatic, and hepatic artery lymph nodes concerning for B-cell lymphoma on addendum--negative on final testing He did well intraoperatively and postoperatively. Drain was removed prior to discharge, one suture was placed at site to prevent leaking. 05/19/2024 Patient called office yesterday with concerns for leaking from drain site. He states he is changing gauze dressing 6-8 times per day. Drainage is clear serosanguinous without any odor, purulence, or erythema. No fevers/chills. Eating a regular diet without difficulty; eats couple meals and small snacks throughout the day. No protein shakes. Bowel movements are Abnormal - 3-4 loose BM per day . Postoperative pain is not well controlled. He was prescribed oxycodone on discharge however says it upsets his stomach too much to take. He has only taken his oxy twice since discharge due to epigastric discomfort, but denies any N/V. His abdominal pain has made it difficult for him to sit through dialysis sessions. He had HD today but was only able to complete 3 hours.. 05/30/24 Eating a regular diet without difficulty. Bowel movements are Abnormal - he was having some loose stools and was started on Creon but he states it has gotten better . Pain is more controlled with the tramadol and he is using it more appropriately . There has been no drainage or leakage since the other stitches were applied last week. 06/26/24 Patient has his right chest perm cath removed Overall feeling better since last visit. . Eating a regular diet without difficulty. Bowel movements are mostly formed on enzymes. . Patient was only having pain in lower abdomen that feels it is more like gas pain . The following portions of the patient's history were reviewed and updated as appropriate: allergies, current medications, past family history, past medical history, past social history, past surgical history, problem list, and medication reconciliation was completed including current medication and post discharge medication. Physical Exam: Blood pressure 118/60, pulse 70, weight 62.6 kg (138 lb). Body mass index is 20.38 kg/m . General: alert, appears stated age, and cooperative Abdomen: soft, bowel sounds active, non-tender Incision: healing well, no drainage, no erythema, no hernia, no seroma, no swelling, no dehiscence, incision well approximated Physical Exam Assessment: Jose was seen today for follow-up. Diagnoses and all orders for this visit: Exocrine pancreatic insufficiency - mwgjrl-owsgytmc-mrdnzyo (CREON) 36,000-114,000- 180,000 unit capsule,delayed release(DR/EC); 2 capsules with Breakfast and Dinner and 1 with snacks Postoperative visit IPMN (intraductal papillary mucinous neoplasm) Plan: He should increase his pancreatic enzymes to 2 with breakfast and 2 with dinner and then 1 was snacks if needed. He was provided with some samples of Creon am curious to see if his stomach ache and cramping is actually more from the pancreaze sample that he was given at last visit Paperwork for assistance for the Creon was provided today since last time it was sent to his pharmacy it was over 600 dollars. Patient is cleared for all activities now but was encouraged to progress slowly Oncology planning for a CT scan in July of chest abdomen and pelvis We will plan for follow up in October which would be his six-month postop visit at that time. If they have any other issues or concerns they can call the office at anytime in between that and we can either set up a visit or video visit due to distance that they travel. FLAVIA Sierra 06/26/24 [id number] documented [facility] this encounter [facility] History of Present illness Narrative HEPATOBILIARY AND PANCREAS SURGERY Post Operative Visit HPI: Zev Crystal presents to the clinic 3 weeks following open central pancreatectomy with transition to standard Whipple, falciform ligament flap, and Prevena application (05/09/2024). Final pathology revealed: IPMN with high-grade dysplasia within head of pancreas, margins not involved. Periportal, peripancreatic, and hepatic artery lymph nodes concerning for B-cell lymphoma on addendum--negative on final testing He did well intraoperatively and postoperatively. Drain was removed prior to discharge, one suture was placed at site to prevent leaking. 05/19/2024 Patient called office yesterday with concerns for leaking from drain site. He states he is changing gauze dressing 6-8 times per day. Drainage is clear serosanguinous without any odor, purulence, or erythema. No fevers/chills. Eating a regular diet without difficulty; eats couple meals and small snacks throughout the day. No protein shakes. Bowel movements are Abnormal - 3-4 loose BM per day . Postoperative pain is not well controlled. He was prescribed oxycodone on discharge however says it upsets his stomach too much to take. He has only taken his oxy twice since discharge due to epigastric discomfort, but denies any N/V. His abdominal pain has made it difficult for him to sit through dialysis sessions. He had HD today but was only able to complete 3 hours.. 05/30/24 Eating a regular diet without difficulty. Bowel movements are Abnormal - he was having some loose stools and was started on Creon but he states it has gotten better . Pain is more controlled with the tramadol and he is using it more appropriately . There has been no drainage or leakage since the other stitches were applied last week. The following portions of the patient's history were reviewed and updated as appropriate: allergies, current medications, past family history, past medical history, past social history, past surgical history, problem list, and medication reconciliation was completed including current medication and post discharge medication. Physical Exam: Blood pressure 142/79, pulse 86, weight 63.4 kg (139 lb 12.8 oz). Body mass index is 20.64 kg/m . General: alert, appears stated age, and cooperative Abdomen: soft, bowel sounds active, non-tender, Suture at previous drain site remov Incision: healing well, no drainage, no erythema, no hernia, no seroma, no swelling, well approximated, connie were removed and Steri-Strips applied Physical Exam Assessment: Diagnoses and all orders for this visit: IPMN (intraductal papillary mucinous neoplasm) - traMADoL (ULTRAM) 50 mg tablet; Take 1 tablet (50 mg total) by mouth every 8 (eight) hours as needed for pain for up to 7 days. - famotidine (PEPCID) 20 mg tablet; Take 1 tablet (20 mg total) by mouth in the morning and 1 tablet (20 mg total) before bedtime. Do all this for 180 days. B-cell lymphoma of intra-abdominal lymph nodes, unspecified B-cell lymphoma type (CMS-HCC) - traMADoL (ULTRAM) 50 mg tablet; Take 1 tablet (50 mg total) by mouth every 8 (eight) hours as needed for pain for up to 7 days. Plan: Discussed nutrition as well as eating multiple small meals per day. Discussed if meal contains protein or dairy products to include 1 Creon in the middle of the meal. Discussed using the tramadol or Tylenol as needed for pain and to make sure that he was taking enough medication so that his pain is controlled so that he was able to walk or get around the home. Refilled his Pepcid as it is unclear to me whether or not he was taking Per tumor more recommendations they will plan for surveillance. We will plan to see patient in 1 month he may call if needed more refills for pain medication or for enzymes. FLAVIA Sierra 05/30/24 [id number] documented in this encounter [facility] 05-25-2024 History of Present illness Narrative Seen by Dr. Gillette today for consult b cell lymphoma. Per Dr Gillette: CT CHEST with contrast 07/2024 (combined with CT abd). F/U in 10/2024, cbc, cmp CT chest/abd ordered. Instructed to have labs done prior to follow up in October. Pt v.u documented in this encounter [facility] 05-25-2024 History of Present illness Narrative Images from the original note were not included. [facility] 05/25/24 Zev Crystal is a 68 y.o. year old male seen today in the oncology clinic. No chief complaint on file. History of Present Illness: Mr. Crystal is a 68 y.o. male history of abdominal aortic aneurysm, his surveillance CT scan October 2022 showed Right renal lesion measuring 2.5 cm has indeterminate imaging features, but is suspicious for neoplasm. Further abdominal MRI December 2022 showed Solid enhancing, predominantly endophytic, 2.7 cm mass in the anterior, midpole the right kidney. Dilated and ectatic main pancreatic duct with prominent side branches, likely secondary to sequelae of prior pancreatitis; no MR evidence of pancreatic mass. The patient underwent partial nephrectomy June 2023 which showed: partial nephrectomy: CLEAR-CELL RENAL CELL CARCINOMA, WHO/ISUP G2 (2.5 cm), showing organizing hemorrhage and hyalinizing fibrosis, and prior biopsy related reactive changes. Tumor is confined to renal parenchyma with no evidence of invasion beyond the capsule into perinephric fat. No lymphovascular invasion identified. Tumor focally extends to within 1 mm of surgical resection margin. After he healed from partial nephrectomy, he underwent Whipple procedure [address] Mcfadden, final path showed: Central pancreas, resection: INTRADUCTAL PAPILLARY MUCINOUS NEOPLASM WITH LOW GRADE DYSPLASIA. Size: ~ 2.5 cm in length. Inked proximal margin (stapled margin) is very close, < 1mm. Inked distal margin is not involved. 2. Hepatic artery lymph nodes: No metastatic carcinoma identified in six lymph nodes (0/6). 3. Portal lymph nodes: No metastatic carcinoma identified in nine lymph nodes (0/9). 4. 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 Size: at least 4 cm in length. Margins are not involved. Benign duodenum and stomach. No metastatic carcinoma identified in twenty-four lymph nodes (0/24). 5. Final bile duct margin: Not involved. The patient's lymph node showed atypical lymphoid cells suspicious or lymphoma. He is referred to Hematology/Oncology for further evaluation. Oncology History Renal cell carcinoma (CMS-HCC) 05/11/2023 Initial Diagnosis Renal cell carcinoma (CMS-HCC) 05/25/2024 - Cancer Staged Staging form: Kidney, AJCC 8th Edition - Clinical: Stage I (cT1a, cN0, cM0) - Signed by Stanley Gillette MD on 05/25/2024 Past Medical History: Diagnosis Date AAA (abdominal aortic aneurysm) [place] monitoring Anemia received iron infusions Anxiety xanax prn Arthritis CKD (chronic kidney disease) stage 4, GFR 15-29 ml/min ([facility] 06/2023 Coronary artery disease patient states 1 artery occuluded, no stents DDD (degenerative disc disease), lumbar Dental disease missing tooth front Diabetes mellitus type 2, controlled ([facility]) Dialysis patient ([facility]) Claudio Campoverde [facility] Renal [place] Essential hypertension 02/23/2018 HL (hearing loss) hearing aid lt ear, deaf right ear Hypothyroidism Mixed hyperlipidemia 02/23/2018 Nicotine dependence 02/23/2018 Pancreatic neoplasm Pancreatitis Peptic ulceration when he was younger Renal cell carcinoma ([facility]) right, left kidney atrophied Skin cancer BCC/SCC Varicella 03/2024 shingles Visual impairment glasses prn Past Surgical History: Procedure Laterality Date BIOPSY MASS 04/01/2023 right kidney BRACHIAL CEPHALIC ARTERIOVENOUS FISTULA Left 01/11/2024 Performed by Zac Lombardi MD at [facility] CARDIAC CATHETERIZATION 2004 2007 [facility] CHOLECYSTECTOMY 2005 COLONOSCOPY 2012 ENDOSCOPIC ULTRASOUND UPPER N/A 04/04/2024 Performed by Polly Reeder MD at [facility] ESOPHAGOGASTRODUODENOSCOPY DIAGNOSTIC N/A 04/04/2024 Performed by Polly Reeder MD at [facility] NASAL SINUS SURGERY 2003 cleaned out NEPHRECTOMY PARTIAL OPEN(BIOBANK) Right 07/21/2023 Performed by Mary Telles MD at [facility] SKIN BIOPSY Several times STRABISMUS SURGERY 1961 VASECTOMY WHIPPLE WITH INTRA OPERATIVE ULTRASOUND- BIOBANK N/A 05/09/2024 Performed by Jeffrey Mcfadden MD at [facility] Family History Problem Relation Age of Onset Lung cancer Mother Brain cancer Mother Heart disease Father Diabetes Sister Diabetes Brother Stroke Paternal Grandmother Heart attack Paternal Grandfather Early Paternal Grandfather 40 Diabetes Son Cancer Half Brother thyroid and pancreatic Anesthesia problems Neg Hx Bleeding Disorder Neg Hx Clotting disorder Neg Hx Prostate cancer Neg Hx Colon cancer Neg Hx Kidney cancer Neg Hx Thyroid cancer Neg Hx Social History Socioeconomic History Marital status: Tobacco Use Smoking status: Every Day Average packs/day: 1 pack/day for 41.6 years (41.6 ttl pk-yrs) Types: Cigarettes Start date: 07/25/1982 Passive exposure: Current Smokeless tobacco: Never Tobacco comments: Currently smoking 1/2ppd. Vaping Use Vaping status: Never Used Substance and Sexual Activity Alcohol use: No Drug use: Not Currently Types: Marijuana Sexual activity: Defer Other Topics Concern Caffeine Use Yes Social History Narrative Lives with . Worked at a [employer]. Has a dog in the home. Social Drivers of Health Food Insecurity: No Food Insecurity (05/22/2024) Hunger Screening Food Insecurity - Worry: Never True Food Insecurity - Inability: Never True Transportation Needs: Patient Unable To Answer (05/09/2024) PRAPARE - Transportation Lack of Transportation (Medical): Patient unable to answer Lack of Transportation (Non-Medical): Patient unable to answer Interpersonal Safety: Patient Unable To Answer (05/09/2024) Humiliation, Afraid, Rape, and Kick questionnaire Fear of Current or Ex-Partner: Patient unable to answer Emotionally Abused: Patient unable to answer Physically Abused: Patient unable to answer Sexually Abused: Patient unable to answer Housing Instability: Patient Unable To Answer (05/09/2024) Housing Instability Housing Instability: Patient unable to answer No Known Allergies Medication List Accurate as of May 25, 2024 10:19 AM. If you have any questions, ask your nurse or doctor. Medications Continued This Visit ALPRAZolam 0.25 mg tablet Refills: 0 Dose: 0.25 mg Commonly known as: XANAX atorvastatin 40 mg tablet Refills: 0 Dose: 40 mg Commonly known as: LIPITOR carvediloL 25 mg tablet Refills: 0 Dose: 25 mg Commonly known as: COREG famotidine 20 mg tablet Quantity: 180 tablet Refills: 1 For diagnoses: IPMN (intraductal papillary mucinous neoplasm) Dose: 20 mg Signed by: FLAVIA Randall PA-C 20 mg, oral, 2 times daily Commonly known as: PEPCID glimepiride 2 mg tablet Refills: 0 Dose: 2 mg Commonly known as: AMARYL levothyroxine 50 MCG tablet Refills: 0 Dose: 50 mcg Commonly known as: SYNTHROID, LEVOTHROID metFORMIN 500 mg tablet Refills: 0 Dose: 500 mg Commonly known as: GLUCOPHAGE NIFEdipine XL 60 mg 24 hr tablet Quantity: 30 tablet Refills: 0 Dose: 60 mg Signed by: FLAVIA Mckeon 60 mg, oral, Every 24 hours scheduled Commonly known as: PROCARDIA XL ondansetron ODT 4 mg disintegrating tablet Quantity: 20 tablet Refills: 0 For diagnoses: IPMN (intraductal papillary mucinous neoplasm) Dose: 4 mg Signed by: FLAVIA Randall PA-C 4 mg, oral, Every 8 hours PRN Commonly known as: ZOFRAN ODT sevelamer 800 mg tablet Refills: 0 Dose: 800 mg Commonly known as: RENVELA traMADoL 50 mg tablet Quantity: 21 tablet Refills: 0 Doctor's comments: 7 Day Supply For diagnoses: IPMN (intraductal papillary mucinous neoplasm), B-cell lymphoma of intra-abdominal lymph nodes, unspecified B-cell lymphoma type (CMS-HCC) Dose: 50 mg Signed by: FLAVIA Randall PA-C 50 mg, oral, Every 8 hours PRN Commonly known as: ULTRAM Review of Symptoms: Review of Systems ECO- Symptomatic; fully ambulatory Physical Exam: General: Well appearing, in no acute distress. Vitals: BP 156/67 Pulse 77 Temp 36.2 C (97.2 F) (Oral) Resp 16 Ht 175.3 cm (5' 9.02 ) Wt 64.5 kg (142 lb 3.2 oz) SpO2 100% BMI 20.99 kg/m Body mass index is 20.99 kg/m . Eyes: No icterus, no conjuctival erythema ENT: Pharyngeal mucosa was moist without exudate and inflammation or ulcerations. Tongue was midline and appeared normal.Gums were unremarkable. Lymph nodes: No palpable adenopathy Neck: Supple. There were no masses, tenderness. Trachea was midline. Respiratory: Respirations were non-labored. Lungs were clear to auscultation. There was no dullness to percussion. Cardiac: Regular rate and rhythm, S1 and S2 sounds were normal. There were no rubs or gallops. Abdomen: Soft, non-tender, Nondistended. Bowel sounds audible in all four quadrants. There were no palpable masses. The liver and spleen were not enlarged. Abdominal incision is healing well. Extremities: There was no clubbing, Cyanosis, edema. Skin: There was no obvious rashes, bruising or ecchymosis. Back exam: No palpable tenderness was appreciated. Neurologic: There was no unilateral weakness. Mood and affect: Normal. Recent Imaging: X-ray chest 1 view Result Date: 05/12/2024 Narrative: HISTORY: Chest pain COMPARISON: Chest x-ray 02/03/2024 FINDINGS: Portable AP semiupright view of the chest was performed. Enteric feeding tube extends into the stomach with tip not included in the [id number]. A tunneled right jugular dialysis catheter tip overlies the cavoatrial junction. Cardiac silhouette is grossly within normal limits. Bibasilar airspace disease. No significant vascular congestion, pleural effusion or pneumothorax. Surgical clips overlie the right upper quadrant. IMPRESSION: * Bibasilar atelectasis versus pneumonia. Finalized by Renato De La Torre MD on 05/12/2024 7:49 PM X-ray abdomen ap 1 view Result Date: 05/10/2024 Narrative: Abdomen single view Clinical history:NG tube placement enteric catheter placement and verification Comparison: None. Impression: Enteric catheter tip extends to the left mid abdomen and a somewhat unusual configuration which does not follow normal contours of the stomach or duodenum. Correlate with any prior abdominal bowel surgical history is recommended. This could be within a jejunal loop if a gastrojejunostomy has been performed. Finalized by Ga Stratton MD on 05/10/2024 12:55 PM Recent Labs: Recent Results (from the past 2 weeks) Bedside Glucose *Place/Obtain serum glucose if >500(>600 MRH) per glucometer. Collection Time: 05/11/24 12:01 PM Result Value Ref Range Bedside glucose 199 (H) 65 - 99 mg/dL Bedside Glucose *Place/Obtain serum glucose if >500(>600 MRH) per glucometer. Collection Time: 05/11/24 4:22 PM Result Value Ref Range Bedside glucose 139 (H) 65 - 99 mg/dL Bedside Glucose *Place/Obtain serum glucose if >500(>600 MRH) per glucometer. Collection Time: 05/11/24 8:02 PM Result Value Ref Range Bedside glucose 124 (H) 65 - 99 mg/dL Bedside Glucose *Place/Obtain serum glucose if >500(>600 MRH) per glucometer. Collection Time: 05/11/24 11:46 PM Result Value Ref Range Bedside glucose 156 (H) 65 - 99 mg/dL Comprehensive metabolic panel Collection Time: 05/12/24 3:21 AM Result Value Ref Range Sodium 137 134 - 146 mmol/L Potassium, Bld 3.8 3.5 - 5.0 mmol/L Chloride 103 98 - 109 mmol/L CO2 24 22 - 32 mmol/L Anion gap 10 5 - 15 mmol/L BUN 33 (H) 5 - 27 mg/dL Creatinine 3.39 (H) 0.60 - 1.30 mg/dL Glucose 160 (H) 65 - 99 mg/dL Calcium 8.4 (L) 8.5 - 10.5 mg/dL Total Protein 5.5 (L) 6.0 - 8.0 g/dL Albumin 3.5 3.2 - 5.3 g/dL Alkaline Phosphatase 78 39 - 130 U/L AST 33 0 - 41 U/L ALT 84 (H) 0 - 40 U/L Total bilirubin 0.7 0.3 - 1.2 mg/dL eGFR (CKD-EPI)non-race dependent 19 (L) >59 ml/min/1.73sq.m Magnesium Collection Time: 05/12/24 3:21 AM Result Value Ref Range Magnesium 2.2 1.8 - 2.6 mg/dL Phosphorus Collection Time: 05/12/24 3:21 AM Result Value Ref Range Phosphorus 2.7 2.4 - 4.9 mg/dL CBC auto differential Collection Time: 05/12/24 3:21 AM Result Value Ref Range White Blood Cells 8.5 4.0 - 11.0 X10E9/L RBC count 2.92 (L) 4.10 - 5.70 X10E12/L Hemoglobin 9.7 (L) 13.0 - 17.0 g/dL Hematocrit 27.3 (L) 39 - 49 % MCV 94 80 - 100 fL MCH 33.2 27 - 34 pg MCHC 35.5 32 - 36 g/dL RDW 13.1 11.5 - 15.0 % Platelets 148 (L) 150 - 450 X10E9/L MPV 7.0 7 - 12 fL % neutrophils 69.9 % % lymphocytes 18.3 % % monocytes 4.8 % % eosinophils 5.2 % % Basophils 1.8 % Neutrophils Absolute (A) 5.9 1.5 - 6.6 X10E9/L Lymphocytes Absolute 1.6 1.0 - 3.5 X10E9/L Monocytes Absolute 0.4 0 - 0.9 X10E9/L Eosinophils Absolute 0.4 0.0 - 0.4 X10E9/L Basophils Absolute 0.2 0.0 - 0.2 X10E9/L Bedside Glucose *Place/Obtain serum glucose if >500(>600 MRH) per glucometer. Collection Time: 05/12/24 3:44 AM Result Value Ref Range Bedside glucose 164 (H) 65 - 99 mg/dL Bedside Glucose *Place/Obtain serum glucose if >500(>600 MRH) per glucometer. Collection Time: 05/12/24 7:34 AM Result Value Ref Range Bedside glucose 146 (H) 65 - 99 mg/dL Potassium Collection Time: 05/12/24 8:15 AM Result Value Ref Range Potassium, Bld 3.9 3.5 - 5.0 mmol/L Bedside Glucose *Place/Obtain serum glucose if >500(>600 MRH) per glucometer. Collection Time: 05/12/24 12:23 PM Result Value Ref Range Bedside glucose 112 (H) 65 - 99 mg/dL Bedside Glucose *Place/Obtain serum glucose if >500(>600 MRH) per glucometer. Collection Time: 05/12/24 4:53 PM Result Value Ref Range Bedside glucose 176 (H) 65 - 99 mg/dL Troponin I, High Sensitivity Collection Time: 05/12/24 7:32 PM Result Value Ref Range Troponin I, High Sensitivity 36 (H) <21 ng/L Bedside Glucose *Place/Obtain serum glucose if >500(>600 MRH) per glucometer. Collection Time: 05/12/24 8:01 PM Result Value Ref Range Bedside glucose 154 (H) 65 - 99 mg/dL Troponin I, High Sensitivity 1 Hour Collection Time: 05/12/24 8:27 PM Result Value Ref Range 1 Hour Trop I, High Sensitivity 33 (H) <21 ng/L Bedside Glucose *Place/Obtain serum glucose if >500(>600 MRH) per glucometer. Collection Time: 05/12/24 11:36 PM Result Value Ref Range Bedside glucose 191 (H) 65 - 99 mg/dL Comprehensive metabolic panel Collection Time: 05/13/24 2:47 AM Result Value Ref Range Sodium 136 134 - 146 mmol/L Potassium, Bld 3.7 3.5 - 5.0 mmol/L Chloride 100 98 - 109 mmol/L CO2 26 22 - 32 mmol/L Anion gap 10 5 - 15 mmol/L BUN 20 5 - 27 mg/dL Creatinine 2.46 (H) 0.60 - 1.30 mg/dL Glucose 203 (H) 65 - 99 mg/dL Calcium 8.9 8.5 - 10.5 mg/dL Total Protein 6.1 6.0 - 8.0 g/dL Albumin 3.8 3.2 - 5.3 g/dL Alkaline Phosphatase 82 39 - 130 U/L AST 22 0 - 41 U/L ALT 59 (H) 0 - 40 U/L Total bilirubin 0.7 0.3 - 1.2 mg/dL eGFR (CKD-EPI)non-race dependent 28 (L) >59 ml/min/1.73sq.m Magnesium Collection Time: 05/13/24 2:47 AM Result Value Ref Range Magnesium 2.2 1.8 - 2.6 mg/dL Phosphorus Collection Time: 05/13/24 2:47 AM Result Value Ref Range Phosphorus 2.1 (L) 2.4 - 4.9 mg/dL CBC auto differential Collection Time: 05/13/24 2:47 AM Result Value Ref Range White Blood Cells 9.2 4.0 - 11.0 X10E9/L RBC count 3.26 (L) 4.10 - 5.70 X10E12/L Hemoglobin 10.7 (L) 13.0 - 17.0 g/dL Hematocrit 30.4 (L) 39 - 49 % MCV 93 80 - 100 fL MCH 32.8 27 - 34 pg MCHC 35.2 32 - 36 g/dL RDW 13.2 11.5 - 15.0 % Platelets 192 150 - 450 X10E9/L MPV 7.5 7 - 12 fL % neutrophils 67.9 % % lymphocytes 19.8 % % monocytes 5.7 % % eosinophils 5.7 % % Basophils 0.9 % Neutrophils Absolute (A) 6.2 1.5 - 6.6 X10E9/L Lymphocytes Absolute 1.8 1.0 - 3.5 X10E9/L Monocytes Absolute 0.5 0 - 0.9 X10E9/L Eosinophils Absolute 0.5 (H) 0.0 - 0.4 X10E9/L Basophils Absolute 0.1 0.0 - 0.2 X10E9/L Bedside Glucose *Place/Obtain serum glucose if >500(>600 MRH) per glucometer. Collection Time: 05/13/24 3:36 AM Result Value Ref Range Bedside glucose 187 (H) 65 - 99 mg/dL Amylase, fluid Collection Time: 05/13/24 5:22 AM Result Value Ref Range Amylase specimen type FLUID Amylase, Fluid <10 U/L Bedside Glucose *Place/Obtain serum glucose if >500(>600 MRH) per glucometer. Collection Time: 05/13/24 8:34 AM Result Value Ref Range Bedside glucose 133 (H) 65 - 99 mg/dL Bedside Glucose *Place/Obtain serum glucose if >500(>600 MRH) per glucometer. Collection Time: 05/13/24 12:12 PM Result Value Ref Range Bedside glucose 159 (H) 65 - 99 mg/dL Potassium Collection Time: 05/13/24 4:07 PM Result Value Ref Range Potassium, Bld 3.6 3.5 - 5.0 mmol/L Phosphorus Collection Time: 05/13/24 4:07 PM Result Value Ref Range Phosphorus 4.0 2.4 - 4.9 mg/dL Bedside Glucose *Place/Obtain serum glucose if >500(>600 MRH) per glucometer. Collection Time: 05/13/24 6:25 PM Result Value Ref Range Bedside glucose 192 (H) 65 - 99 mg/dL Bedside Glucose *Place/Obtain serum glucose if >500(>600 MRH) per glucometer. Collection Time: 05/13/24 9:33 PM Result Value Ref Range Bedside glucose 114 (H) 65 - 99 mg/dL Potassium Collection Time: 05/13/24 9:38 PM Result Value Ref Range Potassium, Bld 3.8 3.5 - 5.0 mmol/L Bedside Glucose *Place/Obtain serum glucose if >500(>600 MRH) per glucometer. Collection Time: 05/13/24 11:17 PM Result Value Ref Range Bedside glucose 126 (H) 65 - 99 mg/dL Comprehensive metabolic panel Collection Time: 05/14/24 3:14 AM Result Value Ref Range Sodium 138 134 - 146 mmol/L Potassium, Bld 4.1 3.5 - 5.0 mmol/L Chloride 103 98 - 109 mmol/L CO2 23 22 - 32 mmol/L Anion gap 12 5 - 15 mmol/L BUN 25 5 - 27 mg/dL Creatinine 2.69 (H) 0.60 - 1.30 mg/dL Glucose 161 (H) 65 - 99 mg/dL Calcium 8.5 8.5 - 10.5 mg/dL Total Protein 5.9 (L) 6.0 - 8.0 g/dL Albumin 3.6 3.2 - 5.3 g/dL Alkaline Phosphatase 76 39 - 130 U/L AST 16 0 - 41 U/L ALT 40 0 - 40 U/L Total bilirubin 0.6 0.3 - 1.2 mg/dL eGFR (CKD-EPI)non-race dependent 25 (L) >59 ml/min/1.73sq.m Magnesium Collection Time: 05/14/24 3:14 AM Result Value Ref Range Magnesium 2.2 1.8 - 2.6 mg/dL Phosphorus Collection Time: 05/14/24 3:14 AM Result Value Ref Range Phosphorus 3.7 2.4 - 4.9 mg/dL CBC auto differential Collection Time: 05/14/24 3:14 AM Result Value Ref Range White Blood Cells 8.0 4.0 - 11.0 X10E9/L RBC count 3.12 (L) 4.10 - 5.70 X10E12/L Hemoglobin 10.2 (L) 13.0 - 17.0 g/dL Hematocrit 29.0 (L) 39 - 49 % MCV 93 80 - 100 fL MCH 32.6 27 - 34 pg MCHC 35.1 32 - 36 g/dL RDW 13.6 11.5 - 15.0 % Platelets 200 150 - 450 X10E9/L MPV 6.9 (L) 7 - 12 fL % neutrophils 60.3 % % lymphocytes 25.7 % % monocytes 5.7 % % eosinophils 7.3 % % Basophils 1.0 % Neutrophils Absolute (A) 4.8 1.5 - 6.6 X10E9/L Lymphocytes Absolute 2.1 1.0 - 3.5 X10E9/L Monocytes Absolute 0.5 0 - 0.9 X10E9/L Eosinophils Absolute 0.6 (H) 0.0 - 0.4 X10E9/L Basophils Absolute 0.1 0.0 - 0.2 X10E9/L Bedside Glucose *Place/Obtain serum glucose if >500(>600 MRH) per glucometer. Collection Time: 05/14/24 5:51 AM Result Value Ref Range Bedside glucose 176 (H) 65 - 99 mg/dL Bedside Glucose *Place/Obtain serum glucose if >500(>600 MRH) per glucometer. Collection Time: 05/14/24 7:59 AM Result Value Ref Range Bedside glucose 148 (H) 65 - 99 mg/dL Bedside Glucose *Place/Obtain serum glucose if >500(>600 MRH) per glucometer. Collection Time: 05/14/24 12:12 PM Result Value Ref Range Bedside glucose 167 (H) 65 - 99 mg/dL Bedside Glucose *Place/Obtain serum glucose if >500(>600 MRH) per glucometer. Collection Time: 05/14/24 4:08 PM Result Value Ref Range Bedside glucose 127 (H) 65 - 99 mg/dL Bedside Glucose *Place/Obtain serum glucose if >500(>600 MRH) per glucometer. Collection Time: 05/14/24 8:46 PM Result Value Ref Range Bedside glucose 197 (H) 65 - 99 mg/dL Bedside Glucose *Place/Obtain serum glucose if >500(>600 MRH) per glucometer. Collection Time: 05/15/24 12:04 AM Result Value Ref Range Bedside glucose 100 (H) 65 - 99 mg/dL Bedside Glucose *Place/Obtain serum glucose if >500(>600 MRH) per glucometer. Collection Time: 05/15/24 4:20 AM Result Value Ref Range Bedside glucose 142 (H) 65 - 99 mg/dL Comprehensive metabolic panel Collection Time: 05/15/24 6:30 AM Result Value Ref Range Sodium 137 134 - 146 mmol/L Potassium, Bld 4.4 3.5 - 5.0 mmol/L Chloride 102 98 - 109 mmol/L CO2 24 22 - 32 mmol/L Anion gap 11 5 - 15 mmol/L BUN 36 (H) 5 - 27 mg/dL Creatinine 2.86 (H) 0.60 - 1.30 mg/dL Glucose 156 (H) 65 - 99 mg/dL Calcium 8.7 8.5 - 10.5 mg/dL Total Protein 6.0 6.0 - 8.0 g/dL Albumin 3.6 3.2 - 5.3 g/dL Alkaline Phosphatase 80 39 - 130 U/L AST 13 0 - 41 U/L ALT 30 0 - 40 U/L Total bilirubin 0.6 0.3 - 1.2 mg/dL eGFR (CKD-EPI)non-race dependent 24 (L) >59 ml/min/1.73sq.m Magnesium Collection Time: 05/15/24 6:30 AM Result Value Ref Range Magnesium 2.2 1.8 - 2.6 mg/dL Phosphorus Collection Time: 05/15/24 6:30 AM Result Value Ref Range Phosphorus 4.0 2.4 - 4.9 mg/dL CBC auto differential Collection Time: 05/15/24 6:30 AM Result Value Ref Range White Blood Cells 8.3 4.0 - 11.0 X10E9/L RBC count 3.17 (L) 4.10 - 5.70 X10E12/L Hemoglobin 10.3 (L) 13.0 - 17.0 g/dL Hematocrit 29.5 (L) 39 - 49 % MCV 93 80 - 100 fL MCH 32.6 27 - 34 pg MCHC 35.1 32 - 36 g/dL RDW 13.2 11.5 - 15.0 % Platelets 228 150 - 450 X10E9/L MPV 6.7 (L) 7 - 12 fL % neutrophils 61.2 % % lymphocytes 23.8 % % monocytes 6.3 % % eosinophils 8.2 % % Basophils 0.5 % Neutrophils Absolute (A) 5.1 1.5 - 6.6 X10E9/L Lymphocytes Absolute 2.0 1.0 - 3.5 X10E9/L Monocytes Absolute 0.5 0 - 0.9 X10E9/L Eosinophils Absolute 0.7 (H) 0.0 - 0.4 X10E9/L Basophils Absolute 0.0 0.0 - 0.2 X10E9/L Vitamin B12 Collection Time: 05/15/24 6:30 AM Result Value Ref Range Vitamin B-12 314 180 - 914 pg/mL Iron and TIBC Collection Time: 05/15/24 6:30 AM Result Value Ref Range Iron 47 (L) 50 - 212 ug/dL Tibc-calc only do not order 234 (L) 250 - 425 ug/dL Iron Saturation 20 20 - 50 % SATURATION Ferritin Collection Time: 05/15/24 6:30 AM Result Value Ref Range Ferritin 652 (H) 24 - 336 ng/mL Folate Collection Time: 05/15/24 6:30 AM Result Value Ref Range Folate 6.7 >5.8 ng/mL Bedside Glucose *Place/Obtain serum glucose if >500(>600 MRH) per glucometer. Collection Time: 05/15/24 7:33 AM Result Value Ref Range Bedside glucose 144 (H) 65 - 99 mg/dL Bedside Glucose *Place/Obtain serum glucose if >500(>600 MRH) per glucometer. Collection Time: 05/15/24 5:25 PM Result Value Ref Range Bedside glucose 150 (H) 65 - 99 mg/dL Bedside Glucose *Place/Obtain serum glucose if >500(>600 MR[facility]) per glucometer. Collection Time: 05/15/24 8:43 PM Result Value Ref Range Bedside glucose 189 (H) 65 - 99 mg/dL Bedside Glucose *Place/Obtain serum glucose if >500(>600 MR[facility]) per glucometer. Collection Time: 05/15/24 11:57 PM Result Value Ref Range Bedside glucose 135 (H) 65 - 99 mg/dL Bedside Glucose *Place/Obtain serum glucose if >500(>600 [facility]) per glucometer. Collection Time: 05/16/24 4:01 AM Result Value Ref Range Bedside glucose 143 (H) 65 - 99 mg/dL Comprehensive metabolic panel Collection Time: 05/16/24 5:59 AM Result Value Ref Range Sodium 135 134 - 146 mmol/L Potassium, Bld 4.6 3.5 - 5.0 mmol/L Chloride 97 (L) 98 - 109 mmol/L CO2 20 (L) 22 - 32 mmol/L Anion gap 18 (H) 5 - 15 mmol/L BUN 37 (H) 5 - 27 mg/dL Creatinine 3.32 (H) 0.60 - 1.30 mg/dL Glucose 163 (H) 65 - 99 mg/dL Calcium 8.8 8.5 - 10.5 mg/dL Total Protein 7.0 6.0 - 8.0 g/dL Albumin 4.1 3.2 - 5.3 g/dL Alkaline Phosphatase 99 39 - 130 U/L AST 20 0 - 41 U/L ALT 32 0 - 40 U/L Total bilirubin 0.7 0.3 - 1.2 mg/dL eGFR (CKD-EPI)non-race dependent 20 (L) >59 ml/min/1.73sq.m Magnesium Collection Time: 05/16/24 5:59 AM Result Value Ref Range Magnesium 2.2 1.8 - 2.6 mg/dL Phosphorus Collection Time: 05/16/24 5:59 AM Result Value Ref Range Phosphorus 5.3 (H) 2.4 - 4.9 mg/dL CBC auto differential Collection Time: 05/16/24 5:59 AM Result Value Ref Range White Blood Cells 11.5 (H) 4.0 - 11.0 X10E9/L RBC count 3.57 (L) 4.10 - 5.70 X10E12/L Hemoglobin 11.7 (L) 13.0 - 17.0 g/dL Hematocrit 33.1 (L) 39 - 49 % MCV 93 80 - 100 fL MCH 32.7 27 - 34 pg MCHC 35.2 32 - 36 g/dL RDW 13.3 11.5 - 15.0 % Platelets 313 150 - 450 X10E9/L MPV 6.8 (L) 7 - 12 fL % neutrophils 56.5 % % lymphocytes 30.9 % % monocytes 5.1 % % eosinophils 6.6 % % Basophils 0.9 % Neutrophils Absolute (A) 6.5 1.5 - 6.6 X10E9/L Lymphocytes Absolute 3.6 (H) 1.0 - 3.5 X10E9/L Monocytes Absolute 0.6 0 - 0.9 X10E9/L Eosinophils Absolute 0.8 (H) 0.0 - 0.4 X10E9/L Basophils Absolute 0.1 0.0 - 0.2 X10E9/L Bedside Glucose *Place/Obtain serum glucose if >500(>600 MRH) per glucometer. Collection Time: 05/16/24 7:36 AM Result Value Ref Range Bedside glucose 189 (H) 65 - 99 mg/dL Bedside Glucose *Place/Obtain serum glucose if >500(>600 MRH) per glucometer. Collection Time: 05/16/24 12:10 PM Result Value Ref Range Bedside glucose 184 (H) 65 - 99 mg/dL Bedside Glucose *Place/Obtain serum glucose if >500(>600 MRH) per glucometer. Collection Time: 05/16/24 4:01 PM Result Value Ref Range Bedside glucose 171 (H) 65 - 99 mg/dL Bedside Glucose *Place/Obtain serum glucose if >500(>600 MR[facility]) per glucometer. Collection Time: 05/16/24 7:10 PM Result Value Ref Range Bedside glucose 214 (H) 65 - 99 mg/dL Bedside Glucose *Place/Obtain serum glucose if >500(>600 MR[facility]) per glucometer. Collection Time: 05/16/24 11:08 PM Result Value Ref Range Bedside glucose 81 65 - 99 mg/dL Bedside Glucose *Place/Obtain serum glucose if >500(>600 MR[facility]) per glucometer. Collection Time: 05/17/24 3:11 AM Result Value Ref Range Bedside glucose 94 65 - 99 mg/dL Comprehensive metabolic panel Collection Time: 05/17/24 5:46 AM Result Value Ref Range Sodium 135 134 - 146 mmol/L Potassium, Bld 4.0 3.5 - 5.0 mmol/L Chloride 99 98 - 109 mmol/L CO2 21 (L) 22 - 32 mmol/L Anion gap 15 5 - 15 mmol/L BUN 54 (H) 5 - 27 mg/dL Creatinine 4.01 (H) 0.60 - 1.30 mg/dL Glucose 135 (H) 65 - 99 mg/dL Calcium 8.5 8.5 - 10.5 mg/dL Total Protein 6.4 6.0 - 8.0 g/dL Albumin 3.7 3.2 - 5.3 g/dL Alkaline Phosphatase 91 39 - 130 U/L AST 16 0 - 41 U/L ALT 24 0 - 40 U/L Total bilirubin 0.5 0.3 - 1.2 mg/dL eGFR (CKD-EPI)non-race dependent 16 (L) >59 ml/min/1.73sq.m Magnesium Collection Time: 05/17/24 5:46 AM Result Value Ref Range Magnesium 2.3 1.8 - 2.6 mg/dL Phosphorus Collection Time: 05/17/24 5:46 AM Result Value Ref Range Phosphorus 5.0 (H) 2.4 - 4.9 mg/dL CBC auto differential Collection Time: 05/17/24 5:46 AM Result Value Ref Range White Blood Cells 10.7 4.0 - 11.0 X10E9/L RBC count 3.38 (L) 4.10 - 5.70 X10E12/L Hemoglobin 11.1 (L) 13.0 - 17.0 g/dL Hematocrit 31.1 (L) 39 - 49 % MCV 92 80 - 100 fL MCH 33.0 27 - 34 pg MCHC 35.8 32 - 36 g/dL RDW 13.3 11.5 - 15.0 % Platelets 305 150 - 450 X10E9/L MPV 6.6 (L) 7 - 12 fL % neutrophils 52.4 % % lymphocytes 34.0 % % monocytes 6.6 % % eosinophils 6.2 % % Basophils 0.8 % Neutrophils Absolute (A) 5.6 1.5 - 6.6 X10E9/L Lymphocytes Absolute 3.6 (H) 1.0 - 3.5 X10E9/L Monocytes Absolute 0.7 0 - 0.9 X10E9/L Eosinophils Absolute 0.7 (H) 0.0 - 0.4 X10E9/L Basophils Absolute 0.1 0.0 - 0.2 X10E9/L Bedside Glucose *Place/Obtain serum glucose if >500(>600 MRH) per glucometer. 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 He had complete resection for both tumors. IPMN shows no if nodes involvement. I will not recommend any adjuvant chemotherapy. His lymph nodes from Whipple procedure showed atypical lymphoid cells. The lymph node architecture is completely effaced and replaced by a diffuse lymphoid infiltrate composed of monotonous small lymphocytes with uniform round and slightly irregular nuclei, dense nuclear chromatin and frequent small distinct nucleoli. No large cell component is demonstrated. Immunostains are performed with appropriate controls. The lymphoid cells are diffusely and strongly positive for CD20, CD5 and CD43. There is a smaller population of T-cells highlighted by CD3. CD10 and cyclin D1 are negative. Ki-67 demonstrates a markedly variable proliferation index ranging from 5 to 40%. 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 T (11:14) translocation is still pending to rule out mantle cell lymphoma Flow cytometry is also pending, his absolute lymphocyte count is only slightly elevated. I favor observation at this point. CT CHEST with contrast 07/2024 (combined with CT abd). F/U in 10/2024, cbc, cmp Thank you. Stanley Gillette MD Please note that portions of this note were generated using voice recognition M*Modal dictation software. Although every effort was made to ensure the accuracy of this automated siene maker, some errors in siene maker may have occurred. CC: Patient Care Team: Dylan Montilla MD as PCP - General (Family Medicine) Mary Telles MD as Referring Physician (Urology) Zac Lombardi MD as Surgeon (Vascular Surgery) Kaveh Pearson MD as Referring Physician (Nephrology) Jeffrey Mcfadden MD as Consulting Physician (General Surgery) Mckinley Winkler MD as Consulting Physician (Cardiology) PCP:DYLAN MONTILLA Referring MD: Amanda Randall P* [facility] Instructions Stanley Gillette MD - 05/25/2024 9:[address] CHEST with contrast 07/2024 (combined with CT abd). F/U in 10/2024, cbc, cmp [facility] 05-22-[facility]24 History of Present illness Narrative HEPATOBILIARY AND PANCREAS SURGERY Post Operative Visit HPI: Zev Crystal is a 68yo male with PMHx RCC s/p partial right nephrectomy 07/21/23 and ESRD on HD who presents to the clinic 2 weeks following: open central pancreatectomy with transition to standard Whipple, falciform ligament flap, and Prevena application (05/09/2024). Final pathology revealed: IPMN with high-grade dysplasia within head of pancreas, margins not involved. Periportal, peripancreatic, and hepatic artery lymph nodes concerning for B-cell lymphoma on addendum. He did well intraoperatively and postoperatively. Drain was removed prior to discharge, one suture was placed at site to prevent leaking. 05/19/2024 Patient called office yesterday with concerns for leaking from drain site. He states he is changing gauze dressing 6-8 times per day. Drainage is clear serosanguinous without any odor, purulence, or erythema. No fevers/chills. Eating a regular diet without difficulty; eats couple meals and small snacks throughout the day. No protein shakes. Bowel movements are Abnormal - 3-4 loose BM per day . Postoperative pain is not well controlled. He was prescribed oxycodone on discharge however says it upsets his stomach too much to take. He has only taken his oxy twice since discharge due to epigastric discomfort, but denies any N/V. His abdominal pain has made it difficult for him to sit through dialysis sessions. He had HD today but was only able to complete 3 hours. The following portions of the patient's history were reviewed and updated as appropriate: allergies, current medications, past family history, past medical history, past social history, past surgical history, problem list, and medication reconciliation was completed including current medication and post discharge medication. Physical Exam: Blood pressure 182/78, pulse 85, weight 62.6 kg (138 lb). Body mass index is 20.38 kg/m . BP noted to be elevated after dialysis. He has not taken his BP medications today and is visibly uncomfortable from abdominal pain. Patient will take BP medications once he is home and continue to monitor. General: alert, cooperative, and no distress however does appear uncomfortable from uncontrolled postop abdominal pain Abdomen: soft, bowel sounds active, appropriate surgical site tenderness Incision: healing well with connie in place. no drainage, no erythema, no hernia, no seroma, no swelling, no dehiscence, incision well approximated. Serosanguinous drainage noted to be coming from previous drain site. Site was cleansed with alcohol pad and injected with 5cc 1% plain lidocaine. Initial suture was removed. Two vertical mattress 3-0 Nylon sutures placed at site. No further leaking noted. Clean dressing applied. Patient tolerated well. Final Pathologic Diagnosis 1. 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 Size: ~ 2.5 cm in length. Inked proximal margin (stapled margin) is very close, < 1mm. Inked distal margin is not involved. 2. Hepatic artery lymph nodes: No metastatic carcinoma identified in six lymph nodes (0/6). ATYPICAL LYMPHOID INFILTRATE, SUSPICIOUS FOR B-CELL LYMPHOMA. Final diagnosis regarding lymphoma will be issued in an addendum after further work-up 3. Portal lymph node: No metastatic carcinoma identified in nine lymph nodes (0/9). ATYPICAL LYMPHOID INFILTRATE, SUSPICIOUS FOR B-CELL LYMPHOMA. Final diagnosis regarding lymphoma will be issued in an addendum after further work-up 4. 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 Size: at least 4 cm in length. Margins are not involved. Benign duodenum and stomach. No metastatic carcinoma identified in twenty-four lymph nodes (0/24). ATYPICAL LYMPHOID INFILTRATE, SUSPICIOUS FOR B-CELL LYMPHOMA. Final diagnosis regarding lymphoma will be issued in an addendum after further work-up 5. Final bile duct margin: Not involved. Addendum ([facility]) Date Reported: 05/21/2024 2. Hepatic artery lymph nodes, biopsy: B-cell lymphoma. 3. Portal lymph nodes, biopsy: B-cell lymphoma. 4.. Pancreatic lymph nodes, biopsy: B-cell lymphoma (see comment). Assessment: Jose was seen today for post-op. Diagnoses and all orders for this visit: IPMN (intraductal papillary mucinous neoplasm) - traMADoL (ULTRAM) 50 mg tablet; Take 1 tablet (50 mg total) by mouth every 8 (eight) hours as needed for pain for up to 7 days. - ondansetron ODT (ZOFRAN ODT) 4 mg disintegrating tablet; Dissolve 1 tablet (4 mg total) on tongue every 8 (eight) hours as needed for nausea or vomiting. B-cell lymphoma of intra-abdominal lymph nodes, unspecified B-cell lymphoma type (CMS-HCC) - Flow cytometry blood only; Future - [facility] [place], [place]; Future Plan: Diet as tolerated, encouraged protein supplementation Samples of Creon [id number] sent with patient. Will try 1 capsule with meals and larger snacks. Refill of zofran sent to pharmacy Discontinue oxycodone due to GI upset; will try Tramadol for better pain control (50mg q8 hours due to CKD) PPI x 6 months for anastomotic ulcer prevention Additional sutures placed at drain site, no further leaking noted. Dr. Mcfadden was available to discuss pathology report with patient. His case will be discussed at tumor board this upcoming Tuesday. We will order blood flow cytometry and send referral to oncology as well. Keep appointment with [facility] surgery 05/30/24 for suture/staple removal and next postop check - AMANDA RANDALL PA-C 05/22/24 5:21 PM Amanda Randall PA-C 05/22/24 1723 documented in this encounter [facility] 05-21-2024 Miscellaneous Notes Patient's stated patient's drain site that is stitched has been leaking and they are trying to keep a dry dressing on and changing it frequently. Per Yung Wolfe patient to be seen Tuesday or Tuesday. Appointment mad for 05/22/24 at 3:00PM documented in this encounter [facility] 05-21-2024 Telephone encounter Note Patient's stated patient's drain site that is stitched has been leaking and they are trying to keep a dry dressing on and changing it frequently. Per Yung Wolfe patient to be seen Tuesday or Tuesday. Appointment mad for 05/22/24 at 3:00PM [facility] 05-17-2024 Miscellaneous Notes DISCHARGE PLANNING NOTE Renal [facility]ake (P# [phone] ; F# [phone]) via [employer] for [facility] (P# [phone] ; F# [phone]) DISCHARGE PLANNING NOTE Patient discharged home with no needs. [facility] tasked to send CRF and updated HD Flowsheets to [facility] in [place]. Lan Administrator spoke with [facility] renal to inform them patient would be returning to HD on 05/19/24. - Perla Goodson RN 05/17/24 10:41 AM Problem: Discharge Planning Goal: Discharge to post-acute care, other facility, or home with appropriate resources Description: Patient's goal is: INTERVENTIONS 1. Conduct assessment to determine patient/family and health care team treatment goals, and need for post-acute services based on payer coverage, community resources, and patient preferences, and barriers to discharge 2. Coordinate with Social work, Care Navigation, and Utilization Review to arrange appropriate level of services according to patient's needs based on patient preference and payer coverage in collaboration with the physician and health care team 3. Address psychosocial, clinical, and financial barriers to discharge as identified in assessment in conjunction with the patient/family and health care team 4. Consult appropriate ancillary services (i.e.. PT/OT/ST, etc) as needed 5. Communicate with and update the patient/family, physician, and health care team regarding progress on the discharge plan 6. Identify discharge learning needs (meds, wound care, etc). 7. Arrange for needed discharge transportation as appropriate Outcome: Progressing Note: Evaluation of progress towards goal: Home today, DC order in place Additional Comments: Problem: Safety Goal: Patient will be injury free during hospitalization Description: INTERVENTIONS: 1. Assess patient's risk for falls and implement fall prevention plan of care per policy 2. Provide and maintain a safe environment 3. Proper use of double Identifiers 4. Medication administration using the 5 rights 5. Hand hygiene 6. Specimens are labeled at the bedside 7. Instruct patient/ patient shipping services sales representative about use of safety devices 8. Include patient/ patient shipping services sales representative in decisions related to safety Outcome: Progressing Note: Evaluation of progress towards goal: up with steady gait, calls out appropriately Problem: Pain Goal: Patient goal is pain score less than 4, able to rest, and participant in treatment plan as appropriate Description: INTERVENTIONS: 1. Encourage patient or legal shipping services sales representative to report early pain and ask for pain medicine when needed 2. Assess pain using appropriate pain scale and include the scale used when documenting 3. Administer analgesics based on type and severity of pain and evaluate response within appropriate time frame 4. Implement non-pharmacological measures as appropriate and evaluate response 5. Consider cultural and social influences on pain and pain management 6. Notify LIP if interventions ineffective or patient reports new pain 7. Monitor vital signs including pulse ox, end-tidal CO2 based on pain intervention 8. Reassess pain per policy 9. Teach patient or legal shipping services sales representative interventions for comforting Outcome: Progressing Note: Evaluation of progress towards goal: Patient denies pain at this time. Will continue to monitor patient for signs of pain including but not limited to patient pain score, facial grimacing, withdrawal from stimulus and vital sign changes for duration of shift. Problem: Safety Goal: Patient will be injury free during hospitalization Description: INTERVENTIONS: 1. Assess patient's risk for falls and implement fall prevention plan of care per policy 2. Provide and maintain a safe environment 3. Proper use of double Identifiers 4. Medication administration using the 5 rights 5. Hand hygiene 6. Specimens are labeled at the bedside 7. Instruct patient/ patient shipping services sales representative about use of safety devices 8. Include patient/ patient shipping services sales representative in decisions related to safety Outcome: Progressing Note: Evaluation of progress towards goal: Patient remains free from falls at this time. Patient in bed at lowest position with wheels locked, 2/4 side rails up , call light within reach and non slip footwear in place. Will continue to monitor patient safety for duration of shift. DISCHARGE PLANNING NOTE Per RN during discharge transition rounds, barriers to discharge are: HD, IV reglan. Discharge Plan: Patient will discharge home with self care, resuming outpatient HD at renal in [place]. Lan Administrator will continue to follow for any discharge needs. - Perla Goodson RN 05/16/24 12:59 PM Occupational Therapy Treatment, Discharge from Therapy Discharge Recommendations OT Recommendations : Home Home Recommendations: No mobility/ADL assistance at home required Post Discharge Therapy Recommendations: None 6 Clicks: Daily Activity Putting on and taking off regular lower body clothing?: None Bathing (including washing, rinsing, drying)?: None Toileting, which includes using toilet, bedpan or urinal?: None Putting on and taking off regular upper body clothing?: None Taking care of personal grooming such as brushing teeth?: None Eating meals?: None Scoring Daily Activity Raw Score: 24 CMS G Code Modifier: CH Therapy Plan No Current Skilled OT: Safe to return home OT Frequency: (Discharge from therapy) Assessment Patient Assessment Patient Response to Treatment: Tolerated evaluation without adverse reaction, Discontinue therapy Mood/Affect: Flat Visit RN Communication: Yes Medical Record Reviewed: Yes OT Type of Visit: Treatment, Discharge from Therapy Precautions Activity: Activity as tolerated per early mobility guidelines Equipment: FARHAT drain Telemetry/Shear Operator Automatic: Yes Oxygen Used: Room air Other: Low fall risk Pain Assessment Pain Assessment: No/denies pain ADL / IADL Hand Dominance: Right Other: Pt declined ADL's today. Encouragement required to participate minimally. Home Management - IADL Other: Pt declined ADL's today. Encouragement required to participate minimally. Cognition Overall Cognitive Status: Within Functional Limits Orientation Level: Oriented X4 Bed Mobility Supine to Sit: Independent Other: No deficit. Pt in chair following treatment. Call light in reach and encouraged to call for assist. Transfers Sit to Stand: Independent Stand to Sit: Independent Other: No dizziness. Gait Gait Assistance: Independent Assistive Device: None Gait Distance: 350 ft Other: No LOB. No rest breaks required. Balance Balance Evaluation: Within Functional Limits RUE Assessment: Within Functional Limits LUE Assessment: Within Functional Limits Activity Tolerance Endurance: No limitations to activity tolerance Plan Occupational Therapy Care Plan Occupational Therapy Care Plan (Active) Template: OT - Occupational Therapy Problem: Activity Tolerance Dates: Start: 05/11/24 Disciplines: OT Goal: Tolerate 30 minutes of activity WITHOUT rest breaks Dates: Start: 05/11/24 Expected End: 05/25/24 Disciplines: OT Outcomes Date/Time User Outcome 05/16/24 1029 Shannon Lozoya OTR/L Adequate for Discharge Goal Note filed on 05/16/24 1029 by Shannon Lozoya OTR/L Evaluation of progress towards goal: Problem: Bathing LB Dates: Start: 05/11/24 Disciplines: OT Goal: Patient will perform bathing LB with Modified [place] Dates: Start: 05/11/24 Expected End: 05/25/24 Disciplines: OT Problem: Bathing UB Dates: Start: 05/11/24 Disciplines: OT Goal: Patient will perform bathing UB with Modified [place] Dates: Start: 05/11/24 Expected End: 05/25/24 Disciplines: OT Problem: Bed Mobility Dates: Start: 05/11/24 Disciplines: OT Goal: Patient will perform bed mobility with Modified [place] Dates: Start: 05/11/24 Expected End: 05/25/24 Description: Pt will perform bed mobility w/ modified independence and AD as needed 100% of the time. Disciplines: OT Outcomes Date/Time User Outcome 05/16/24 1029 Shannon Lozoya OTR/L Adequate for Discharge Goal Note filed on 05/16/24 1029 by Shannon Lozoya OTR/L Evaluation of progress towards goal: Problem: Dressing LB Dates: Start: 05/11/24 Disciplines: OT Goal: Patient will perform dressing LB with Modified [place] Dates: Start: 05/11/24 Expected End: 05/25/24 Disciplines: OT Problem: Dressing UB Dates: Start: 05/11/24 Disciplines: OT Goal: Patient will perform dressing UB with Modified [place] Dates: Start: 05/11/24 Expected End: 05/25/24 Disciplines: OT Problem: Functional Mobility Dates: Start: 05/11/24 Disciplines: OT Goal: Patient will perform functional mobility Independently Dates: Start: 05/11/24 Expected End: 05/25/24 Description: Goal Description: Disciplines: OT Outcomes Date/Time User Outcome 05/16/24 1029 Shannon Lozoya OTR/L Adequate for Discharge Goal Note filed on 05/16/24 1029 by Shannon Lozoya OTR/L Evaluation of progress towards goal: Problem: Standing Balance Dates: Start: 05/11/24 Disciplines: OT Goal: Improve balance to good Dates: Start: 05/11/24 Expected End: 05/25/24 Description: Pt will demo good dynamic standing balance 100% of the time. Disciplines: OT Outcomes Date/Time User Outcome 05/16/24 1029 KATERIN Leonardo/Gracie Adequate for Discharge Goal Note filed on 05/16/24 1029 by KATERIN Leonardo/Gracie Evaluation of progress towards goal: Problem: Toilet Transfers Dates: Start: 05/11/24 Disciplines: OT Goal: Patient will perform toilet transfers with Modified [place] Dates: Start: 05/11/24 Expected End: 05/25/24 Description: Pt will perform toilet transfers with modified independence and AD as needed 100% of the time. Disciplines: OT Problem: Transfers Dates: Start: 05/11/24 Disciplines: OT Goal: Patient will perform transfers Independently Dates: Start: 05/11/24 Expected End: 05/25/24 Description: Goal Description: Disciplines: OT Outcomes Date/Time User Outcome 05/16/24 1029 KATERIN Leonardo/L Adequate for Discharge Goal Note filed on 05/16/24 1029 by KATERIN Leonardo/Gracie Evaluation of progress towards goal: Occupational Therapy Care Plan (Resolved) There are no resolved problems. Principal Problem: Pancreatic neoplasm Physical Therapy Evaluation, Discharge from Therapy Discharge Recommendations PT Recommendations: Home Home Recommendations: Intermittent caregiver support for: 6 Clicks: Basic Mobility Turning from your back to your side while in a flat bed without using bed rails?: None Moving from lying on your back to sitting on side of flat bed without using bed rails?: None Moving to and from bed to a chair (including w/c)?: None Standing up from a chair using your arms (e.g. w/c or bedside chair)?: None To walk in hospital room?: None Climbing 3-5 steps with a railing?: None Scoring 6 Clicks: Basic Mobility Raw Score: 24 CMS G Code Modifier: CH Therapy Plan No skilled acute PT needs. No Current Skilled PT: No acute PT goals identified PT Frequency: Other (comment) (1 visit) PT Duration: eval only Patient Response to Treatment: Tolerated evaluation without adverse reaction, Discontinue therapy Assessment Patient Assessment Patient Response to Treatment: Tolerated evaluation without adverse reaction, Discontinue therapy Mood/Affect: Flat Visit RN Communication: Yes Medical Record Reviewed: Yes PT Type of Visit: Evaluation, Discharge from Therapy Pt with h/o pancreatic neck adenocarcinoma presented at this time for planned surgical intervention. 05/09/2024:Central pancreatectomy transition to standard Whipple, Falciform ligament flap. Intraoperative US of the pancreas, Prevena wound VAC placement Hgb 05/16/2024:11.7 Past Medical History: Diagnosis Date AAA (abdominal aortic aneurysm) [place] monitoring Anemia received iron infusions Anxiety xanax prn Arthritis CKD (chronic kidney disease) stage 4, GFR 15-29 ml/min ([facility] 06/2023 Coronary artery disease patient states 1 artery occuluded, no stents DDD (degenerative disc disease), lumbar Dental disease missing tooth front Diabetes mellitus type 2, controlled ([facility]) Dialysis patient ([facility]) Claudio Campoverde Sat- [facility] [place] Essential hypertension 02/23/2018 HL (hearing loss) hearing aid lt ear, deaf right ear Hypothyroidism Mixed hyperlipidemia 02/23/2018 Nicotine dependence 02/23/2018 Pancreatic neoplasm Pancreatitis Peptic ulceration when he was younger Renal cell carcinoma ([facility]) right, left kidney atrophied Skin cancer BCC/SCC Varicella 03/2024 shingles Visual impairment glasses prn Past Surgical History: Procedure Laterality Date BIOPSY MASS 04/01/2023 right kidney BRACHIAL CEPHALIC ARTERIOVENOUS FISTULA Left 01/11/2024 Performed by Zac Lombardi MD at [facility] CARDIAC CATHETERIZATION 2004 2007 [facility] CHOLECYSTECTOMY 2005 COLONOSCOPY 2012 ENDOSCOPIC ULTRASOUND UPPER N/A 04/04/2024 Performed by Polly Reeder MD at [facility] ESOPHAGOGASTRODUODENOSCOPY DIAGNOSTIC N/A 04/04/2024 Performed by Polly Reeder MD at [facility] NASAL SINUS SURGERY 2003 cleaned out NEPHRECTOMY PARTIAL OPEN(BIOBANK) Right 07/21/2023 Performed by Mary Telles MD at [facility] SKIN BIOPSY Several times STRABISMUS SURGERY 1961 VASECTOMY [place] WITH INTRA OPERATIVE ULTRASOUND- BIOBANK N/A 05/09/2024 Performed by Jeffrey Mcfadden MD at [facility] Precautions Activity: early mobility guidelines 05/09/2024, pass/independent per sfaety screen 05/15/2024 Equipment: FARHAT drain Telemetry/Shear Operator Automatic: Yes Other: low fall risk, h/o AAA; HD T,TH,Sat Pain Assessment Pain Assessment: No/denies pain Home Living Type of Home: House Home Layout: Two level, Bed/bath upstairs, Laundry in basement, Stairs to enter with rails Stairs to Enter: 5 Hand Rails: Bilateral Stairs in Home: full flight up to second floor bed/bath and down to basement laundry Hand Rails in Home: Bilateral (bilat handrails up to second floor, right handrail down to basement) Bathroom Toilet: Raised Bathroom Equipment: Grab bars around toilet, Grab bars in shower, Hand-held shower Bathroom Accessibility: Accessible Other : no prior equipment Prior Function Lives With: Spouse Receives Help From: Family (spouse available to assist as needed, son lives nearby but does work) Level of Mobility: Independent with ADLs and functional transfers or gait Homemaking Assistance: Independent Vocational: Retired Hearing / Speech / Vision Hearing: Hard of hearing/hearing concerns, Left hearing aid, Deaf (deaf right ear) Speech: Within Functional Limits Current Vision: Wears glasses only for reading Cognition Overall Cognitive Status: Within Functional Limits Orientation Level: Oriented X4 Bed Mobility Supine to Sit: Right, Independent Sit to Supine: (NT, pt left sitting up in chair with call light in reach) Other: bed flat with use of bedrail Transfers Sit to Stand: Independent Stand to Sit: Independent Bed to Chair: Independent Other: safe steady transfers Gait Base of Support: Within Functional Limits Pattern: Decreased ronda Gait Assistance: Independent Assistive Device: None Gait Distance: 350 feet Balance Standing Balance: Static: Good Standing Balance: Dynamic: Good Other: standing balance without UE support RLE Assessment: Within Functional Limits LLE Assessment: Within Functional Limits Activity Tolerance Endurance: Tolerates <30 minutes activity WITHOUT vital sign changes Plan Physical Therapy Care Plan Physical Therapy Care Plan (Active) There are no active problems. Physical Therapy Care Plan (Resolved) There are no resolved problems. Principal Problem: Pancreatic neoplasm Problem: Pain Goal: Patient goal is pain score less than 4, able to rest, and participant in treatment plan as appropriate Description: INTERVENTIONS: 1. Encourage patient or legal shipping services sales representative to report early pain and ask for pain medicine when needed 2. Assess pain using appropriate pain scale and include the scale used when documenting 3. Administer analgesics based on type and severity of pain and evaluate response within appropriate time frame 4. Implement non-pharmacological measures as appropriate and evaluate response 5. Consider cultural and social influences on pain and pain management 6. Notify LIP if interventions ineffective or patient reports new pain 7. Monitor vital signs including pulse ox, end-tidal CO2 based on pain intervention 8. Reassess pain per policy 9. Teach patient or legal shipping services sales representative interventions for comforting 05/15/20242204 by ZENOBIA Goldman Outcome: Progressing Note: Evaluation of progress towards goal: Pt receiving prn pain meds. Helping with pain Problem: Safety Goal: Patient will be injury free during hospitalization Description: INTERVENTIONS: 1. Assess patient's risk for falls and implement fall prevention plan of care per policy 2. Provide and maintain a safe environment 3. Proper use of double Identifiers 4. Medication administration using the 5 rights 5. Hand hygiene 6. Specimens are labeled at the bedside 7. Instruct patient/ patient shipping services sales representative about use of safety devices 8. Include patient/ patient shipping services sales representative in decisions related to safety 05/15/20242204 by ZENOBIA Goldman Outcome: Progressing Note: Evaluation of progress towards goal: Pt independent in room. Call light within reach, calls out appropriately Problem: Potential for Compromised Skin Integrity Goal: Patient's nutritional intake is adequate Description: Patient's goal is: INTERVENTIONS 1. Assess and monitor food intake and supplements, patient food preferences, nausea, vomiting, labs, oral cavity (gums, teeth, tongue, mucosa), proper denture fit, and cultural beliefs 2. Monitor for signs of hypoglycemia and hyperglycemia 3. Collaborate with interdisciplinary team and initiate plan and interventions as ordered 4. Monitor patient's weight 5. Assist patient with meals/food selection 6. Assist patient with eating 7. Allow adequate time for meals 8. Provide pleasant environment during mealtime 9. Increase social contact during mealtimes 10. Plan activities to conserve energy 11. Encourage/perform oral hygiene as appropriate 12. Encourage patient to take dietary supplement as ordered 13. Collaborate with clinical human resources trainee 14. Include patient/ patient's shipping services sales representative in decisions related to nutrition Outcome: Not Progressing Note: Evaluation of progress towards goal: pt on regular diet, poor appetite, calorie counts ordered Problem: Nutrition Goal: Patient's nutritional intake is adequate Description: Patient's goal is: INTERVENTIONS 1. Assess and monitor food intake and supplements, patient food preferences, nausea, vomiting, labs, oral cavity (gums, teeth, tongue, mucosa), proper denture fit, and cultural beliefs 2. Monitor for signs of hypoglycemia and hyperglycemia 3. Collaborate with interdisciplinary team and initiate plan and interventions as ordered 4. Monitor patient's weight 5. Assist patient with meals/food selection 6. Assist patient with eating 7. Allow adequate time for meals 8. Provide pleasant environment during mealtime 9. Increase social contact during mealtimes 10. Plan activities to conserve energy 11. Encourage/perform oral hygiene as appropriate 12. Encourage patient to take dietary supplement as ordered 13. Collaborate with clinical human resources trainee 14. Include patient/ patient's shipping services sales representative in decisions related to nutrition Outcome: Not Progressing Note: Evaluation of progress towards goal: pt on regular diet, poor appetite, calorie counts ordered Problem: Gastrointestinal - Adult Goal: Minimal or absence of nausea and vomiting Description: INTERVENTIONS: 1. Administer IV fluids as ordered to ensure adequate hydration 2. Maintain NPO status as ordered until nausea and vomiting are resolved 3. Nasogastric tube to suction as ordered 4. Administer ordered antiemetic medications as needed 5. Provide nonpharmacologic comfort measures as appropriate 6. Advance diet as tolerated, if ordered 7. Nutrition consult to assist patient with adequate nutrition and appropriate food choices Outcome: Progressing Note: Evaluation of progress towards goal: pt having intermittent nausea/ stomach not feeling well. Antiemetic given, schd. reglan given. Monitoring Problem: Skin/Tissue Integrity - Adult Goal: Incisions, wounds, or drain sites healing without S/S of infection Description: INTERVENTIONS 1. ADMISSION & EVERY SHIFT: Assess and document risk factors for pressure ulcer development utilizing the Celestino/Celestino Q scale 2. Assess and document skin integrity 3. Assess and document dressing/incision, wound bed, drain sites and surrounding tissue 4. Implement wound care per orders 5. Initiate isolation precautions as appropriate 6. Initiate high risk precautions Outcome: Progressing Note: Evaluation of progress towards goal: pt has midline with connie; HERNANDEZ , FARHAT drain Problem: Metabolic/Fluid and Electrolytes - Adult Goal: Glucose maintained within prescribed range Description: Patient's goal is: INTERVENTIONS 1. Monitor Blood Glucose as ordered 2. Assess for signs and symptoms of hyperglycemia and hypoglycemia 3. Administer ordered medications to maintain glucose within target range 4. Assess barriers to adequate nutritional intake and initiate nutrition consult as needed 5. Instruct patient/ legal shipping services sales representative on self management of diabetes and initiate consult as needed Outcome: Progressing Note: Evaluation of progress towards goal: pt BS Q4 hrs, insulin ordered and given per sliding scale Occupational Therapy (P) CANCEL - Deferred (pt just returned from HD and reports too fatigued to participate in OT at this time-cont poc as able.) Cosigned by Agnes George OTR/L at 05/16/2024 8:00 AM EDT Associated attestation - Agnes George OTR/Gracie - 05/16/2024 8:00 AM EDT I have reviewed and agree with this note and education documentation for this visit. DISCHARGE PLANNING NOTE Per RN during discharge transition rounds, barriers to discharge are: FARHAT, IV reglan, return of bowel function, HD. Discharge Plan: Patient will discharge home with no needs, resuming outpatient HD at renal in [place]. Lan Administrator will continue to follow for any discharge needs. - Perla Goodson RN 05/15/24 12:03 PM DISCHARGE PLANNING NOTE Referral sent to [facility] (P# [phone] ; F# [phone]) via efax Problem: Pain Goal: Patient goal is pain score less than 4, able to rest, and participant in treatment plan as appropriate Description: INTERVENTIONS: 1. Encourage patient or legal shipping services sales representative to report early pain and ask for pain medicine when needed 2. Assess pain using appropriate pain scale and include the scale used when documenting 3. Administer analgesics based on type and severity of pain and evaluate response within appropriate time frame 4. Implement non-pharmacological measures as appropriate and evaluate response 5. Consider cultural and social influences on pain and pain management 6. Notify LIP if interventions ineffective or patient reports new pain 7. Monitor vital signs including pulse ox, end-tidal CO2 based on pain intervention 8. Reassess pain per policy 9. Teach patient or legal shipping services sales representative interventions for comforting Outcome: Progressing Note: Evaluation of progress towards goal: pt currently denies any paion Problem: Safety Goal: Patient will be injury free during hospitalization Description: INTERVENTIONS: 1. Assess patient's risk for falls and implement fall prevention plan of care per policy 2. Provide and maintain a safe environment 3. Proper use of double Identifiers 4. Medication administration using the 5 rights 5. Hand hygiene 6. Specimens are labeled at the bedside 7. Instruct patient/ patient shipping services sales representative about use of safety devices 8. Include patient/ patient shipping services sales representative in decisions related to safety Outcome: Progressing Note: Evaluation of progress towards goal: no injuries at present Problem: Infection Goal: Absence of infection during hospitalization Description: Interventions: 1. Assess and monitor for signs and symptoms of infection 2. Monitor lab/diagnostic results 3. Monitor all insertion sites i.e., indwelling lines, tubes and drains 4. Monitor endotracheal (as able) and nasal secretions for changes in amount and color 5. Administer medications as ordered 6. Instruct and encourage patient and family to use good hand hygiene technique 7. Identify and instruct patient/patient shipping services sales representative in use of appropriate isolation precautions for identified infection/symptoms 8. Provide and discuss with patient/patient shipping services sales representative on educational MDRO sheet 9. Encourage and monitor nutritional status daily and consult human resources trainee if indicated 10. Implement neutropenic guidelines as needed 11. Review exposure to history of communicable disease and recent travel history on admission 12. Encourage annual influenza vaccine 13. Encourage pneumonia vaccine Outcome: Progressing Note: Evaluation of progress towards goal: no s/s infection Problem: Knowledge Deficit Goal: Patient/patient shipping services sales representative demonstrates understanding of disease process, treatment plan, medications, and discharge instructions Description: INTERVENTIONS 1. Complete learning assessment and assess knowledge base 2. Provide teaching at level of understanding 3. Provide teaching via preferred learning method(s) Outcome: Progressing Note: Evaluation of progress towards goal: discussed POC with pt, verbalized understanding Problem: Discharge Planning Goal: Discharge to post-acute care, other facility, or home with appropriate resources Description: Patient's goal is: INTERVENTIONS 1. Conduct assessment to determine patient/family and health care team treatment goals, and need for post-acute services based on payer coverage, community resources, and patient preferences, and barriers to discharge 2. Coordinate with Social work, Care Navigation, and Utilization Review to arrange appropriate level of services according to patient's needs based on patient preference and payer coverage in collaboration with the physician and health care team 3. Address psychosocial, clinical, and financial barriers to discharge as identified in assessment in conjunction with the patient/family and health care team 4. Consult appropriate ancillary services (i.e.. PT/OT/ST, etc) as needed 5. Communicate with and update the patient/family, physician, and health care team regarding progress on the discharge plan 6. Identify discharge learning needs (meds, wound care, etc). 7. Arrange for needed discharge transportation as appropriate Outcome: Progressing Note: Evaluation of progress towards goal: appropriate resources will be provided at discharge Problem: Pain Goal: Patient goal is pain score less than 4, able to rest, and participant in treatment plan as appropriate Description: INTERVENTIONS: 1. Encourage patient or legal shipping services sales representative to report early pain and ask for pain medicine when needed 2. Assess pain using appropriate pain scale and include the scale used when documenting 3. Administer analgesics based on type and severity of pain and evaluate response within appropriate time frame 4. Implement non-pharmacological measures as appropriate and evaluate response 5. Consider cultural and social influences on pain and pain management 6. Notify LIP if interventions ineffective or patient reports new pain 7. Monitor vital signs including pulse ox, end-tidal CO2 based on pain intervention 8. Reassess pain per policy 9. Teach patient or legal shipping services sales representative interventions for comforting Outcome: Progressing Note: Evaluation of progress towards goal: patient assessed for pain with hourly rounding and as needed. Will treat any pain as needed as ordered. Problem: Pain Goal: Patient goal is pain score less than 4, able to rest, and participant in treatment plan as appropriate Description: INTERVENTIONS: 1. Encourage patient or legal shipping services sales representative to report early pain and ask for pain medicine when needed 2. Assess pain using appropriate pain scale and include the scale used when documenting 3. Administer analgesics based on type and severity of pain and evaluate response within appropriate time frame 4. Implement non-pharmacological measures as appropriate and evaluate response 5. Consider cultural and social influences on pain and pain management 6. Notify LIP if interventions ineffective or patient reports new pain 7. Monitor vital signs including pulse ox, end-tidal CO2 based on pain intervention 8. Reassess pain per policy 9. Teach patient or legal shipping services sales representative interventions for comforting Outcome: Progressing Note: Evaluation of progress towards goal: Patient goal is___0____score for pain. Patient assessed for pain with hourly rounding. Pain managed with PRN pain medications as per orders, and additionally with non-medication interventions such as repositioning and relaxation. Patient reports satisfaction with current pain management regimen. Problem: Safety Goal: Patient will be injury free during hospitalization Description: INTERVENTIONS: 1. Assess patient's risk for falls and implement fall prevention plan of care per policy 2. Provide and maintain a safe environment 3. Proper use of double Identifiers 4. Medication administration using the 5 rights 5. Hand hygiene 6. Specimens are labeled at the bedside 7. Instruct patient/ patient shipping services sales representative about use of safety devices 8. Include patient/ patient shipping services sales representative in decisions related to safety Outcome: Progressing Note: Evaluation of progress towards goal: Patient assessed for appropriate Safe Patient Handling Equipment, and equipment used as per policy. Patient's environment is safely maintained. Medications passed as per policy. Five rights used for all interventions. No falls or injury during this stay. Problem: Infection Goal: Absence of infection during hospitalization Description: Interventions: 1. Assess and monitor for signs and symptoms of infection 2. Monitor lab/diagnostic results 3. Monitor all insertion sites i.e., indwelling lines, tubes and drains 4. Monitor endotracheal (as able) and nasal secretions for changes in amount and color 5. Administer medications as ordered 6. Instruct and encourage patient and family to use good hand hygiene technique 7. Identify and instruct patient/patient shipping services sales representative in use of appropriate isolation precautions for identified infection/symptoms 8. Provide and discuss with patient/patient shipping services sales representative on educational MDRO sheet 9. Encourage and monitor nutritional status daily and consult human resources trainee if indicated 10. Implement neutropenic guidelines as needed 11. Review exposure to history of communicable disease and recent travel history on admission 12. Encourage annual influenza vaccine 13. Encourage pneumonia vaccine Outcome: Progressing Note: Evaluation of progress towards goal: Patient's vitals and labs monitored for s/s of infection. Lines, tube, and drain sites evaluated for s/s infection. Dressings changes and antibiotic therapy as per orders. Patient currently afebrile. Will continue to monitor closely. Problem: Knowledge Deficit Goal: Patient/patient shipping services sales representative demonstrates understanding of disease process, treatment plan, medications, and discharge instructions Description: INTERVENTIONS 1. Complete learning assessment and assess knowledge base 2. Provide teaching at level of understanding 3. Provide teaching via preferred learning method(s) Outcome: Progressing Note: Evaluation of progress towards goal: Patient educated as per charting. Problem: Discharge Planning Goal: Discharge to post-acute care, other facility, or home with appropriate resources Description: Patient's goal is: INTERVENTIONS 1. Conduct assessment to determine patient/family and health care team treatment goals, and need for post-acute services based on payer coverage, community resources, and patient preferences, and barriers to discharge 2. Coordinate with Social work, Care Navigation, and Utilization Review to arrange appropriate level of services according to patient's needs based on patient preference and payer coverage in collaboration with the physician and health care team 3. Address psychosocial, clinical, and financial barriers to discharge as identified in assessment in conjunction with the patient/family and health care team 4. Consult appropriate ancillary services (i.e.. PT/OT/ST, etc) as needed 5. Communicate with and update the patient/family, physician, and health care team regarding progress on the discharge plan 6. Identify discharge learning needs (meds, wound care, etc). 7. Arrange for needed discharge transportation as appropriate Outcome: Progressing Note: Evaluation of progress towards goal: Discharge planning as per care navigation/social work. Patient not yet ready for discharge Problem: Potential for Compromised Skin Integrity Goal: Skin integrity is maintained or improved Description: Patient's goal is: INTERVENTIONS 1. Perform initial skin assessment on admission and as needed 2. Turn patient every 2 hours and PRN 3. Relieve pressure to bony prominences 4. Avoid shearing 5. Keep skin clean and dry 6. Alternate a full bath with partial baths for elderly 7. Apply lotion/moisturizer on skin 8. Monitor patient's hygiene practices 9. Float heels 10. Collaborate with interdisciplinary team and initiate plans and interventions as needed Outcome: Progressing Note: Evaluation of progress towards goal: Patient positioned q2 hrs and prn. Skin lubricated, heels floated as per charting. Skin assessed as per charting. No new skin breakdown at this time. Will continue to monitor closely. Goal: Patient's nutritional intake is adequate Description: Patient's goal is: INTERVENTIONS 1. Assess and monitor food intake and supplements, patient food preferences, nausea, vomiting, labs, oral cavity (gums, teeth, tongue, mucosa), proper denture fit, and cultural beliefs 2. Monitor for signs of hypoglycemia and hyperglycemia 3. Collaborate with interdisciplinary team and initiate plan and interventions as ordered 4. Monitor patient's weight 5. Assist patient with meals/food selection 6. Assist patient with eating 7. Allow adequate time for meals 8. Provide pleasant environment during mealtime 9. Increase social contact during mealtimes 10. Plan activities to conserve energy 11. Encourage/perform oral hygiene as appropriate 12. Encourage patient to take dietary supplement as ordered 13. Collaborate with clinical human resources trainee 14. Include patient/ patient's shipping services sales representative in decisions related to nutrition Outcome: Progressing Note: Evaluation of progress towards goal: Nutrition as per orders. Patient's dietary intake monitored and recorded per policy. Glucoses monitored as per orders. Daily weights taken. Problem: Moderate - High Risk Fall Score Description: Alvarez Fall Score of =/> 25 or indicated by [facility] Assessment Goal: Patient should be free from fall Description: Interventions: 1. [place] to environment 2. Hourly rounds addressing the 4 P's (Pain, Positioning, Possessions, Potty) 3. Clear area of hazards (spills, clutter, electrical cords, unnecessary equipment) 4. Place equipment (bed & TV controls, call light, phone, urinal) within reach 5. Encourage patient to wear glasses and hearing aides as appropriate 6. Maintain bed in lowest position 7. Lock wheels on bed/wheelchair 8. Provide adequate lighting, including night light 9. Assess need for additional bedding, food/fluids, pain med's prior to sleep/routinely 10. Provide gripper slippers or personal non-skid footwear 11. Teach patient and patient shipping services sales representative to maintain environment for safety and engage in all aspects of fall prevention program 12. Remind patient to call for help before getting out of bed 13. Initiate bed/chair/exit alarms supportive devices as appropriate, (chair wedge, no-skid floor mat, raised edge mattress, hip protectors) 14. Locate patient bed assignment for optimal visualization 15. Evaluate and identify Safe Patient Handling Equipment needs 16. Provide supervision when out of bed or chair 17. Utilize gait belt as needed to assist with ambulation 18. Place adaptive equipment (cane, walker) within reach 19. Request patient shipping services sales representative bring adaptive equipment/mobility aids from home or obtain and provide as needed 20. Consult pharmacy regarding effects of med's affecting mobility, cognition, and alternatives 21. Obtain physician order for PT if risk factors associated with mobility are present 22. Obtain physician order for OT as appropriate 23. Utilize diversional activities 24. Educate patient and patient shipping services sales representative how to maintain a safe environment during visitation times (notify nurse prior to leaving bedside) 25. Consider appropriateness of medical or non-medical physics researcher 26. Set up voiding schedule as appropriate (every 2 hours) Outcome: Progressing Note: Evaluation of progress towards goal: Appropriate fall and safety interventions taken related to patient's fall risk score. No falls or injury at this time Problem: Pain Goal: Patient goal is pain score less than 4, able to rest, and participant in treatment plan as appropriate Description: INTERVENTIONS: 1. Encourage patient or legal shipping services sales representative to report early pain and ask for pain medicine when needed 2. Assess pain using appropriate pain scale and include the scale used when documenting 3. Administer analgesics based on type and severity of pain and evaluate response within appropriate time frame 4. Implement non-pharmacological measures as appropriate and evaluate response 5. Consider cultural and social influences on pain and pain management 6. Notify LIP if interventions ineffective or patient reports new pain 7. Monitor vital signs including pulse ox, end-tidal CO2 based on pain intervention 8. Reassess pain per policy 9. Teach patient or legal shipping services sales representative interventions for comforting Outcome: Progressing Note: Evaluation of progress towards goal: Patient's pain managed with non-pharmacologic and pharmacologic means. Problem: Safety Goal: Patient will be injury free during hospitalization Description: INTERVENTIONS: 1. Assess patient's risk for falls and implement fall prevention plan of care per policy 2. Provide and maintain a safe environment 3. Proper use of double Identifiers 4. Medication administration using the 5 rights 5. Hand hygiene 6. Specimens are labeled at the bedside 7. Instruct patient/ patient shipping services sales representative about use of safety devices 8. Include patient/ patient shipping services sales representative in decisions related to safety Outcome: Progressing Note: Evaluation of progress towards goal: Pt remains injury free during stay. Call light within reach, bed in the lowest position, nonskid footwear in place, environment free of obstacles. Problem: Infection Goal: Absence of infection during hospitalization Description: Interventions: 1. Assess and monitor for signs and symptoms of infection 2. Monitor lab/diagnostic results 3. Monitor all insertion sites i.e., indwelling lines, tubes and drains 4. Monitor endotracheal (as able) and nasal secretions for changes in amount and color 5. Administer medications as ordered 6. Instruct and encourage patient and family to use good hand hygiene technique 7. Identify and instruct patient/patient shipping services sales representative in use of appropriate isolation precautions for identified infection/symptoms 8. Provide and discuss with patient/patient shipping services sales representative on educational MDRO sheet 9. Encourage and monitor nutritional status daily and consult human resources trainee if indicated 10. Implement neutropenic guidelines as needed 11. Review exposure to history of communicable disease and recent travel history on admission 12. Encourage annual influenza vaccine 13. Encourage pneumonia vaccine Outcome: Progressing Note: Evaluation of progress towards goal: Patient remains free of signs and symptoms of infection. Problem: Pain Goal: Patient goal is pain score less than 4, able to rest, and participant in treatment plan as appropriate Description: INTERVENTIONS: 1. Encourage patient or legal shipping services sales representative to report early pain and ask for pain medicine when needed 2. Assess pain using appropriate pain scale and include the scale used when documenting 3. Administer analgesics based on type and severity of pain and evaluate response within appropriate time frame 4. Implement non-pharmacological measures as appropriate and evaluate response 5. Consider cultural and social influences on pain and pain management 6. Notify LIP if interventions ineffective or patient reports new pain 7. Monitor vital signs including pulse ox, end-tidal CO2 based on pain intervention 8. Reassess pain per policy 9. Teach patient or legal shipping services sales representative interventions for comforting Outcome: Progressing Note: Evaluation of progress towards goal: Patient goal is___0____score for pain. Patient assessed for pain with hourly rounding. Pain managed with PRN pain medications as per orders, and additionally with non-medication interventions such as repositioning and relaxation. Patient reports satisfaction with current pain management regimen. Problem: Safety Goal: Patient will be injury free during hospitalization Description: INTERVENTIONS: 1. Assess patient's risk for falls and implement fall prevention plan of care per policy 2. Provide and maintain a safe environment 3. Proper use of double Identifiers 4. Medication administration using the 5 rights 5. Hand hygiene 6. Specimens are labeled at the bedside 7. Instruct patient/ patient shipping services sales representative about use of safety devices 8. Include patient/ patient shipping services sales representative in decisions related to safety Outcome: Progressing Note: Evaluation of progress towards goal: Patient assessed for appropriate Safe Patient Handling Equipment, and equipment used as per policy. Patient's environment is safely maintained. Medications passed as per policy. Five rights used for all interventions. No falls or injury during this stay. Problem: Infection Goal: Absence of infection during hospitalization Description: Interventions: 1. Assess and monitor for signs and symptoms of infection 2. Monitor lab/diagnostic results 3. Monitor all insertion sites i.e., indwelling lines, tubes and drains 4. Monitor endotracheal (as able) and nasal secretions for changes in amount and color 5. Administer medications as ordered 6. Instruct and encourage patient and family to use good hand hygiene technique 7. Identify and instruct patient/patient shipping services sales representative in use of appropriate isolation precautions for identified infection/symptoms 8. Provide and discuss with patient/patient shipping services sales representative on educational MDRO sheet 9. Encourage and monitor nutritional status daily and consult human resources trainee if indicated 10. Implement neutropenic guidelines as needed 11. Review exposure to history of communicable disease and recent travel history on admission 12. Encourage annual influenza vaccine 13. Encourage pneumonia vaccine Outcome: Progressing Note: Evaluation of progress towards goal: Patient's vitals and labs monitored for s/s of infection. Lines, tube, and drain sites evaluated for s/s infection. Dressings changes and antibiotic therapy as per orders. Patient currently afebrile. Will continue to monitor closely. Problem: Knowledge Deficit Goal: Patient/patient shipping services sales representative demonstrates understanding of disease process, treatment plan, medications, and discharge instructions Description: INTERVENTIONS 1. Complete learning assessment and assess knowledge base 2. Provide teaching at level of understanding 3. Provide teaching via preferred learning method(s) Outcome: Progressing Note: Evaluation of progress towards goal: Patient educated as per charting. Problem: Discharge Planning Goal: Discharge to post-acute care, other facility, or home with appropriate resources Description: Patient's goal is: INTERVENTIONS 1. Conduct assessment to determine patient/family and health care team treatment goals, and need for post-acute services based on payer coverage, community resources, and patient preferences, and barriers to discharge 2. Coordinate with Social work, Care Navigation, and Utilization Review to arrange appropriate level of services according to patient's needs based on patient preference and payer coverage in collaboration with the physician and health care team 3. Address psychosocial, clinical, and financial barriers to discharge as identified in assessment in conjunction with the patient/family and health care team 4. Consult appropriate ancillary services (i.e.. PT/OT/ST, etc) as needed 5. Communicate with and update the patient/family, physician, and health care team regarding progress on the discharge plan 6. Identify discharge learning needs (meds, wound care, etc). 7. Arrange for needed discharge transportation as appropriate Outcome: Progressing Note: Evaluation of progress towards goal: Discharge planning as per care navigation/social work. Patient not yet ready for discharge Problem: Potential for Compromised Skin Integrity Goal: Skin integrity is maintained or improved Description: Patient's goal is: INTERVENTIONS 1. Perform initial skin assessment on admission and as needed 2. Turn patient every 2 hours and PRN 3. Relieve pressure to bony prominences 4. Avoid shearing 5. Keep skin clean and dry 6. Alternate a full bath with partial baths for elderly 7. Apply lotion/moisturizer on skin 8. Monitor patient's hygiene practices 9. Float heels 10. Collaborate with interdisciplinary team and initiate plans and interventions as needed Outcome: Progressing Note: Evaluation of progress towards goal: Patient positioned q2 hrs and prn. Skin lubricated, heels floated as per charting. Skin assessed as per charting. No new skin breakdown at this time. Will continue to monitor closely. Goal: Patient's nutritional intake is adequate Description: Patient's goal is: INTERVENTIONS 1. Assess and monitor food intake and supplements, patient food preferences, nausea, vomiting, labs, oral cavity (gums, teeth, tongue, mucosa), proper denture fit, and cultural beliefs 2. Monitor for signs of hypoglycemia and hyperglycemia 3. Collaborate with interdisciplinary team and initiate plan and interventions as ordered 4. Monitor patient's weight 5. Assist patient with meals/food selection 6. Assist patient with eating 7. Allow adequate time for meals 8. Provide pleasant environment during mealtime 9. Increase social contact during mealtimes 10. Plan activities to conserve energy 11. Encourage/perform oral hygiene as appropriate 12. Encourage patient to take dietary supplement as ordered 13. Collaborate with clinical human resources trainee 14. Include patient/ patient's shipping services sales representative in decisions related to nutrition Outcome: Progressing Note: Evaluation of progress towards goal: Nutrition as per orders. Patient's dietary intake monitored and recorded per policy. Glucoses monitored as per orders. Daily weights taken. Problem: Moderate - High Risk Fall Score Description: Alvarez Fall Score of =/> 25 or indicated by [facility] Assessment Goal: Patient should be free from fall Description: Interventions: 1. [place] to environment 2. Hourly rounds addressing the 4 P's (Pain, Positioning, Possessions, Potty) 3. Clear area of hazards (spills, clutter, electrical cords, unnecessary equipment) 4. Place equipment (bed & TV controls, call light, phone, urinal) within reach 5. Encourage patient to wear glasses and hearing aides as appropriate 6. Maintain bed in lowest position 7. Lock wheels on bed/wheelchair 8. Provide adequate lighting, including night light 9. Assess need for additional bedding, food/fluids, pain med's prior to sleep/routinely 10. Provide gripper slippers or personal non-skid footwear 11. Teach patient and patient shipping services sales representative to maintain environment for safety and engage in all aspects of fall prevention program 12. Remind patient to call for help before getting out of bed 13. Initiate bed/chair/exit alarms supportive devices as appropriate, (chair wedge, no-skid floor mat, raised edge mattress, hip protectors) 14. Locate patient bed assignment for optimal visualization 15. Evaluate and identify Safe Patient Handling Equipment needs 16. Provide supervision when out of bed or chair 17. Utilize gait belt as needed to assist with ambulation 18. Place adaptive equipment (cane, walker) within reach 19. Request patient shipping services sales representative bring adaptive equipment/mobility aids from home or obtain and provide as needed 20. Consult pharmacy regarding effects of med's affecting mobility, cognition, and alternatives 21. Obtain physician order for PT if risk factors associated with mobility are present 22. Obtain physician order for OT as appropriate 23. Utilize diversional activities 24. Educate patient and patient shipping services sales representative how to maintain a safe environment during visitation times (notify nurse prior to leaving bedside) 25. Consider appropriateness of medical or non-medical physics researcher 26. Set up voiding schedule as appropriate (every 2 hours) Outcome: Progressing Note: Evaluation of progress towards goal: Appropriate fall and safety interventions taken related to patient's fall risk score. No falls or injury at this time Problem: Urinary Incontinence Goal: Perineal skin integrity is maintained or improved Description: INTERVENTIONS 1. Assess genitourinary system, perineal skin, labs (urinalysis), and history of incontinence to include past management, aggravating, and alleviating factors 2. Keep skin clean and dry 3. Apply skin protectant 4. Develop skin care regimen 5. Provide privacy when changing patients incontinence device to maintain their dignity 6. Consider placing an indwelling catheter 7. Collaborate with interdisciplinary team and initiate plans and interventions as needed Outcome: Completed Note: Evaluation of progress towards goal: patient uses urinal with no issues Problem: Pain Goal: Patient goal is pain score less than 4, able to rest, and participant in treatment plan as appropriate Description: INTERVENTIONS: 1. Encourage patient or legal shipping services sales representative to report early pain and ask for pain medicine when needed 2. Assess pain using appropriate pain scale and include the scale used when documenting 3. Administer analgesics based on type and severity of pain and evaluate response within appropriate time frame 4. Implement non-pharmacological measures as appropriate and evaluate response 5. Consider cultural and social influences on pain and pain management 6. Notify LIP if interventions ineffective or patient reports new pain 7. Monitor vital signs including pulse ox, end-tidal CO2 based on pain intervention 8. Reassess pain per policy 9. Teach patient or legal shipping services sales representative interventions for comforting Outcome: Progressing Note: Evaluation of progress towards goal: Patient goal is___0____score for pain. Patient assessed for pain with hourly rounding. Pain managed with PRN pain medications as per orders, and additionally with non-medication interventions such as repositioning and relaxation. Patient reports satisfaction with current pain management regimen. Problem: Safety Goal: Patient will be injury free during hospitalization Description: INTERVENTIONS: 1. Assess patient's risk for falls and implement fall prevention plan of care per policy 2. Provide and maintain a safe environment 3. Proper use of double Identifiers 4. Medication administration using the 5 rights 5. Hand hygiene 6. Specimens are labeled at the bedside 7. Instruct patient/ patient shipping services sales representative about use of safety devices 8. Include patient/ patient shipping services sales representative in decisions related to safety Outcome: Progressing Note: Evaluation of progress towards goal: Patient assessed for appropriate Safe Patient Handling Equipment, and equipment used as per policy. Patient's environment is safely maintained. Medications passed as per policy. Five rights used for all interventions. No falls or injury during this stay. Problem: Infection Goal: Absence of infection during hospitalization Description: Interventions: 1. Assess and monitor for signs and symptoms of infection 2. Monitor lab/diagnostic results 3. Monitor all insertion sites i.e., indwelling lines, tubes and drains 4. Monitor endotracheal (as able) and nasal secretions for changes in amount and color 5. Administer medications as ordered 6. Instruct and encourage patient and family to use good hand hygiene technique 7. Identify and instruct patient/patient shipping services sales representative in use of appropriate isolation precautions for identified infection/symptoms 8. Provide and discuss with patient/patient shipping services sales representative on educational MDRO sheet 9. Encourage and monitor nutritional status daily and consult human resources trainee if indicated 10. Implement neutropenic guidelines as needed 11. Review exposure to history of communicable disease and recent travel history on admission 12. Encourage annual influenza vaccine 13. Encourage pneumonia vaccine Outcome: Progressing Note: Evaluation of progress towards goal: Patient's vitals and labs monitored for s/s of infection. Lines, tube, and drain sites evaluated for s/s infection. Dressings changes and antibiotic therapy as per orders. Patient currently afebrile. Will continue to monitor closely. Problem: Knowledge Deficit Goal: Patient/patient shipping services sales representative demonstrates understanding of disease process, treatment plan, medications, and discharge instructions Description: INTERVENTIONS 1. Complete learning assessment and assess knowledge base 2. Provide teaching at level of understanding 3. Provide teaching via preferred learning method(s) Outcome: Progressing Note: Evaluation of progress towards goal: Patient educated as per charting. Problem: Discharge Planning Goal: Discharge to post-acute care, other facility, or home with appropriate resources Description: Patient's goal is: INTERVENTIONS 1. Conduct assessment to determine patient/family and health care team treatment goals, and need for post-acute services based on payer coverage, community resources, and patient preferences, and barriers to discharge 2. Coordinate with Social work, Care Navigation, and Utilization Review to arrange appropriate level of services according to patient's needs based on patient preference and payer coverage in collaboration with the physician and health care team 3. Address psychosocial, clinical, and financial barriers to discharge as identified in assessment in conjunction with the patient/family and health care team 4. Consult appropriate ancillary services (i.e.. PT/OT/ST, etc) as needed 5. Communicate with and update the patient/family, physician, and health care team regarding progress on the discharge plan 6. Identify discharge learning needs (meds, wound care, etc). 7. Arrange for needed discharge transportation as appropriate Outcome: Progressing Note: Evaluation of progress towards goal: Discharge planning as per care navigation/social work. Patient not yet ready for discharge Problem: Potential for Compromised Skin Integrity Goal: Skin integrity is maintained or improved Description: Patient's goal is: INTERVENTIONS 1. Perform initial skin assessment on admission and as needed 2. Turn patient every 2 hours and PRN 3. Relieve pressure to bony prominences 4. Avoid shearing 5. Keep skin clean and dry 6. Alternate a full bath with partial baths for elderly 7. Apply lotion/moisturizer on skin 8. Monitor patient's hygiene practices 9. Float heels 10. Collaborate with interdisciplinary team and initiate plans and interventions as needed Outcome: Progressing Note: Evaluation of progress towards goal: Patient positioned q2 hrs and prn. Skin lubricated, heels floated as per charting. Skin assessed as per charting. No new skin breakdown at this time. Will continue to monitor closely. Goal: Patient's nutritional intake is adequate Description: Patient's goal is: INTERVENTIONS 1. Assess and monitor food intake and supplements, patient food preferences, nausea, vomiting, labs, oral cavity (gums, teeth, tongue, mucosa), proper denture fit, and cultural beliefs 2. Monitor for signs of hypoglycemia and hyperglycemia 3. Collaborate with interdisciplinary team and initiate plan and interventions as ordered 4. Monitor patient's weight 5. Assist patient with meals/food selection 6. Assist patient with eating 7. Allow adequate time for meals 8. Provide pleasant environment during mealtime 9. Increase social contact during mealtimes 10. Plan activities to conserve energy 11. Encourage/perform oral hygiene as appropriate 12. Encourage patient to take dietary supplement as ordered 13. Collaborate with clinical human resources trainee 14. Include patient/ patient's shipping services sales representative in decisions related to nutrition Outcome: Progressing Note: Evaluation of progress towards goal: Nutrition as per orders. Patient's dietary intake monitored and recorded per policy. Glucoses monitored as per orders. Daily weights taken. Problem: Urinary Incontinence Goal: Perineal skin integrity is maintained or improved Description: INTERVENTIONS 1. Assess genitourinary system, perineal skin, labs (urinalysis), and history of incontinence to include past management, aggravating, and alleviating factors 2. Keep skin clean and dry 3. Apply skin protectant 4. Develop skin care regimen 5. Provide privacy when changing patients incontinence device to maintain their dignity 6. Consider placing an indwelling catheter 7. Collaborate with interdisciplinary team and initiate plans and interventions as needed Outcome: Progressing Note: Evaluation of progress towards goal: patient uses urinal, skin integrity intact with no issues at this time Problem: Moderate - High Risk Fall Score Description: Lavarez Fall Score of =/> 25 or indicated by [facility] Assessment Goal: Patient should be free from fall Description: Interventions: 1. [place] to environment 2. Hourly rounds addressing the 4 P's (Pain, Positioning, Possessions, Potty) 3. Clear area of hazards (spills, clutter, electrical cords, unnecessary equipment) 4. Place equipment (bed & TV controls, call light, phone, urinal) within reach 5. Encourage patient to wear glasses and hearing aides as appropriate 6. Maintain bed in lowest position 7. Lock wheels on bed/wheelchair 8. Provide adequate lighting, including night light 9. Assess need for additional bedding, food/fluids, pain med's prior to sleep/routinely 10. Provide gripper slippers or personal non-skid footwear 11. Teach patient and patient shipping services sales representative to maintain environment for safety and engage in all aspects of fall prevention program 12. Remind patient to call for help before getting out of bed 13. Initiate bed/chair/exit alarms supportive devices as appropriate, (chair wedge, no-skid floor mat, raised edge mattress, hip protectors) 14. Locate patient bed assignment for optimal visualization 15. Evaluate and identify Safe Patient Handling Equipment needs 16. Provide supervision when out of bed or chair 17. Utilize gait belt as needed to assist with ambulation 18. Place adaptive equipment (cane, walker) within reach 19. Request patient shipping services sales representative bring adaptive equipment/mobility aids from home or obtain and provide as needed 20. Consult pharmacy regarding effects of med's affecting mobility, cognition, and alternatives 21. Obtain physician order for PT if risk factors associated with mobility are present 22. Obtain physician order for OT as appropriate 23. Utilize diversional activities 24. Educate patient and patient shipping services sales representative how to maintain a safe environment during visitation times (notify nurse prior to leaving bedside) 25. Consider appropriateness of medical or non-medical physics researcher 26. Set up voiding schedule as appropriate (every 2 hours) Outcome: Progressing Note: Evaluation of progress towards goal: Appropriate fall and safety interventions taken related to patient's fall risk score. No falls or injury at this time Images from the original note were not included. DISCHARGE PLANNING NOTE Detective Bureau Chief met with patient, introduced self, and explained role. Patient educated on safe discharge plan. Pt admitted 05/09/2024 with Pancreatic neoplasm [D49.0] Hyperkalemia [E87.5] per chart review. Spoke with pt who said he lives with her at home he does not have any DME. He would like to go home and does not want to go to rehab or snf they do live in a 2 story house with the bathroom upstairs. Will continue to follow for possible dc needs. Past Medical History: Diagnosis Date AAA (abdominal aortic aneurysm) ([facility] monitoring Anemia received iron infusions Anxiety xanax prn Arthritis CKD (chronic kidney disease) stage 4, GFR 15-29 ml/min ([facility]) 06/2023 Coronary artery disease patient states 1 artery occuluded, no stents DDD (degenerative disc disease), lumbar Dental disease missing tooth front Diabetes mellitus type 2, controlled ([facility]) Dialysis patient ([facility]) [facility] Essential hypertension 02/23/2018 HL (hearing loss) hearing aid lt ear, deaf right ear Hypothyroidism Mixed hyperlipidemia 02/23/2018 Nicotine dependence 02/23/2018 Pancreatic neoplasm Pancreatitis Peptic ulceration when he was younger Renal cell carcinoma ([facility]) right, left kidney atrophied Skin cancer BCC/SCC Varicella 03/2024 shingles Visual impairment glasses prn Prior to admission patient was living with spouse/significant other and self care. Medical equipment patient used prior to admission includes: Shower Bars. Patient denies need for transportation/ food/ prescription medication assistance resources. PCP: DYLAN MONTILLA MD Pharmacy:[facility] PCP and pharmacy confirmed with patient. CN offered to assist with follow up appointment arrangements; patient declines - states will self-schedule follow up appointments. DYLAN MONTILLA MD added to Follow Up Providers for Summary of Care communication. Per patient self-report: Drug use: denies Smokin-3 cig day ETOH Use: denies Current discharge plan is: Home Services Requested: Services Requested Discharge Disposition: Home with home health services Does the patient need discharge transportation arranged?: No Initial DC Assessment Completed: Yes Goals: Goals home (pt-stated) Evaluation of progress towards goal: Progress to a safe discharge Will continue to follow as plan of care develops. CN discussed benefits and importance of medication compliance and follow ups. Please feel free to reach out for any discharge planning questions. - DEAN JEAN BAPTISTE RN 05/12/24 2:21 PM Problem: Pain Goal: Patient goal is pain score less than 4, able to rest, and participant in treatment plan as appropriate Description: INTERVENTIONS: 1. Encourage patient or legal shipping services sales representative to report early pain and ask for pain medicine when needed 2. Assess pain using appropriate pain scale and include the scale used when documenting 3. Administer analgesics based on type and severity of pain and evaluate response within appropriate time frame 4. Implement non-pharmacological measures as appropriate and evaluate response 5. Consider cultural and social influences on pain and pain management 6. Notify LIP if interventions ineffective or patient reports new pain 7. Monitor vital signs including pulse ox, end-tidal CO2 based on pain intervention 8. Reassess pain per policy 9. Teach patient or legal shipping services sales representative interventions for comforting Outcome: Progressing Note: Evaluation of progress towards goal: Pain controlled with ordered pain meds, will continue to monitor. Problem: Safety Goal: Patient will be injury free during hospitalization Description: INTERVENTIONS: 1. Assess patient's risk for falls and implement fall prevention plan of care per policy 2. Provide and maintain a safe environment 3. Proper use of double Identifiers 4. Medication administration using the 5 rights 5. Hand hygiene 6. Specimens are labeled at the bedside 7. Instruct patient/ patient shipping services sales representative about use of safety devices 8. Include patient/ patient shipping services sales representative in decisions related to safety Outcome: Progressing Note: Evaluation of progress towards goal: Pt remains free from injury, will continue to monitor Problem: Infection Goal: Absence of infection during hospitalization Description: Interventions: 1. Assess and monitor for signs and symptoms of infection 2. Monitor lab/diagnostic results 3. Monitor all insertion sites i.e., indwelling lines, tubes and drains 4. Monitor endotracheal (as able) and nasal secretions for changes in amount and color 5. Administer medications as ordered 6. Instruct and encourage patient and family to use good hand hygiene technique 7. Identify and instruct patient/patient shipping services sales representative in use of appropriate isolation precautions for identified infection/symptoms 8. Provide and discuss with patient/patient shipping services sales representative on educational MDRO sheet 9. Encourage and monitor nutritional status daily and consult human resources trainee if indicated 10. Implement neutropenic guidelines as needed 11. Review exposure to history of communicable disease and recent travel history on admission 12. Encourage annual influenza vaccine 13. Encourage pneumonia vaccine Outcome: Progressing Note: Evaluation of progress towards goal: Patient remains afebrile, showing no signs or symptoms of infection, will continue to monitor. \ Additional Comments: Occupational Therapy Evaluation Discharge Recommendations OT Recommendations : Home Home Recommendations: Intermittent caregiver support for: (ADL/IADL completion) 6 Clicks: Daily Activity Putting on and taking off regular lower body clothing?: A little Bathing (including washing, rinsing, drying)?: A little Toileting, which includes using toilet, bedpan or urinal?: Total (cooper catheter) Putting on and taking off regular upper body clothing?: A little Taking care of personal grooming such as brushing teeth?: A little Eating meals?: None Scoring Daily Activity Raw Score: 17 CMS G Code Modifier: CK Pt presents to [facility] on 05/09 for follow up on pancreatic ductal dilation and 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 Pt went to [facility] and pathologist determined gut contamination. Pt's last MRCP demonstrated mild diffuse pancreatitis w/ edematous change. Pt had operation on 05/09 for central pancreatectomy transition to Whipple, falciform ligament flap, intra-operative pancreas ultrasound and wound vac placement. On 05/10 pt had hemodialysis and EKG results showed concern for STEMI. Per cardiology EKG results were similar to prior study on 04/26/24 with high sensitivity troponin 38, no STEMI. Past Medical History: Diagnosis Date AAA (abdominal aortic aneurysm) ([facility] monitoring Anemia received iron infusions Anxiety xanax prn Arthritis CKD (chronic kidney disease) stage 4, GFR 15-29 ml/min ([facility]) 06/2023 Coronary artery disease patient states 1 artery occuluded, no stents DDD (degenerative disc disease), lumbar Dental disease missing tooth front Diabetes mellitus type 2, controlled ([facility]) Dialysis patient ([facility]) Claudio Campoverde [facility] [place] Essential hypertension 02/23/2018 HL (hearing loss) hearing aid lt ear, deaf right ear Hypothyroidism Mixed hyperlipidemia 02/23/2018 Nicotine dependence 02/23/2018 Pancreatic neoplasm Pancreatitis Peptic ulceration when he was younger Renal cell carcinoma ([facility]) right, left kidney atrophied Skin cancer BCC/SCC Varicella 03/2024 shingles Visual impairment glasses prn Past Surgical History: Procedure Laterality Date BIOPSY MASS 04/01/2023 right kidney BRACHIAL CEPHALIC ARTERIOVENOUS FISTULA Left 01/11/2024 Performed by Zac Lombardi MD at [facility] CARDIAC CATHETERIZATION 2004 2007 [facility] CHOLECYSTECTOMY 2005 COLONOSCOPY 2012 ENDOSCOPIC ULTRASOUND UPPER N/A 04/04/2024 Performed by Polly Reeder MD at [facility] ESOPHAGOGASTRODUODENOSCOPY DIAGNOSTIC N/A 04/04/2024 Performed by Polly Reeder MD at [facility] NASAL SINUS SURGERY 2003 cleaned out NEPHRECTOMY PARTIAL OPEN(BIOBANK) Right 07/21/2023 Performed by Mary Telles MD at [facility] SKIN BIOPSY Several times STRABISMUS SURGERY 1961 VASECTOMY WHIPPLE WITH INTRA OPERATIVE ULTRASOUND- BIOBANK N/A 05/09/2024 Performed by Jeffrey Mcfadden MD at [facility] Therapy Plan Need for skilled Occupational Therapy to address deficits in ADL independence and functional mobility due to a status decline resulting from pain and decreased endurance s/p whipple on 05/09. OT Treatment/Interventions: ADL retraining, Functional transfer training, Endurance training, Patient/family training, Balance, Bed mobility, Gait training, Compensatory technique education, Functional activities OT Frequency: 3-4days/week OT Duration: Length of stay or until goals met Assessment Patient Assessment Therapy Problem List: Decreased ADL status, Decreased balance, Decreased endurance, Decreased high-level ADLs, Decreased mobility, Decreased self-care trans Patient Response to Treatment: Tolerated evaluation without adverse reaction Mood/Affect: Flat Rehab Prognosis: Good Visit RN Communication: Yes Medical Record Reviewed: Yes OT Type of Visit: Evaluation Precautions Activity: early mobility guidelines, yes Equipment: Gait belt Telemetry/Shear Operator Automatic: Yes Oxygen Order : Spo2 90% or higher Oxygen Used: room air Other: Fall risk w/ bed/chair alarms, cortrak w/ tube feeding, cooper, RLQ FARHAT drain, abdominal portable wound vac, hemodialysis T, Th, S with no BP in L UE Pain Assessment Pain Assessment: 0-10 Pain Score: 8 Pain Type: Surgical pain Pain Location: Abdomen Pain Orientation: Left Pain Descriptors: Aching, Sharp Pain Frequency: Constant/continuous Pain Onset: Ongoing Clinical Progression: Not changed Effect of Pain on Daily Activities: Comfort Pain Intervention(s): Ambulation/increased activity, Repositioned, Distraction Response to Interventions: Pain unchanged Multiple Pain Sites: No Home Living Type of Home: House Home Layout: Two level, Bed/bath upstairs, Laundry in basement Stairs to Enter: 5 Hand Rails: Bilateral Stairs in Home: Flight to 2nd floor, flight to basement Hand Rails in Home: Bilateral (R hand rails to basement) Bathroom Shower/Tub: Tub/shower unit Bathroom Toilet: Raised Bathroom Equipment: Grab bars around toilet, Grab bars in shower, Hand-held shower Home Equipment: (Flat bed) Prior Function Lives With: Spouse Receives Help From: Family ( does not work. Son lives close and works horse race timer) Developmentally Appropriate: Yes Level of Mobility: Independent with ADLs and functional transfers or gait Homemaking Assistance: Independent Vocational: Retired ADL / IADL Hand Dominance: Right Where Assessed: Chair Equipment Utilized: (Gait belt) Eating Assistance: Independent (tube feedings; independent beverage management) Grooming Assistance: Setup Bathing/Showering Assistance: Contact guard assist Toilet/Commode Assistance: Total assist (Cooper) UE Dressing Assistance: Min assist LE Dressing Assistance: Min assist Footwear Assistance: Min assist Hearing / Speech / Vision Hearing: Hard of hearing/hearing concerns (Deaf in R ear, partially deaf in L ear) Speech: Within Functional Limits Current Vision: Wears glasses only for reading Cognition Overall Cognitive Status: Within Functional Limits Orientation Level: Oriented X4 Sensation Overall Sensation Status: Within Functional Limits Bed Mobility Other: Pt sitting in chair upon arrival, left in chair with call light and chair alarm on Transfers Sit to Stand: Standby assist Stand to Sit: Contact guard assist, Verbal cues Other: verbal cues needed for safe transfers Gait Base of Support: Within Functional Limits Pattern: Decreased ronda Gait Assistance: Standby assist Assistive Device: (gait belt) Gait Distance: 240 ft Limiting Factors to Gait: Pain, Weakness 2 Turns: Yes Balance Balance Evaluation: Within Functional Limits Sitting Balance: Static: Good Sitting Balance: Dynamic: Good Standing Balance: Static: Good Standing Balance: Dynamic: Good (good-) RUE Assessment: Within Functional Limits (AROM WFL, MMT deferred d/t 8/10 abdominal pain) LUE Assessment: Within Functional Limits (AROM WFL, MMT deferred d/t 8/10 abdominal pain) RLE Assessment: Within Functional Limits LLE Assessment: Within Functional Limits Activity Tolerance Endurance: Tolerates <30 minutes activity WITHOUT vital sign changes Plan Occupational Therapy Care Plan Occupational Therapy Care Plan (Active) Template: OT - Occupational Therapy Problem: Activity Tolerance Dates: Start: 05/11/24 Disciplines: OT Goal: Tolerate 30 minutes of activity WITHOUT rest breaks Dates: Start: 05/11/24 Expected End: 05/25/24 Disciplines: OT Problem: Bathing LB Dates: Start: 05/11/24 Disciplines: OT Goal: Patient will perform bathing LB with Modified [place] Dates: Start: 05/11/24 Expected End: 05/25/24 Disciplines: OT Problem: Bathing UB Dates: Start: 05/11/24 Disciplines: OT Goal: Patient will perform bathing UB with Modified [place] Dates: Start: 05/11/24 Expected End: 05/25/24 Disciplines: OT Problem: Bed Mobility Dates: Start: 05/11/24 Disciplines: OT Goal: Patient will perform bed mobility with Modified [place] Dates: Start: 05/11/24 Expected End: 05/25/24 Description: Pt will perform bed mobility w/ modified independence and AD as needed 100% of the time. Disciplines: OT Problem: Dressing LB Dates: Start: 05/11/24 Disciplines: OT Goal: Patient will perform dressing LB with Modified [place] Dates: Start: 05/11/24 Expected End: 05/25/24 Disciplines: OT Problem: Dressing UB Dates: Start: 05/11/24 Disciplines: OT Goal: Patient will perform dressing UB with Modified [place] Dates: Start: 05/11/24 Expected End: 05/25/24 Disciplines: OT Problem: Functional Mobility Dates: Start: 05/11/24 Disciplines: OT Goal: Patient will perform functional mobility with Modified [place] Dates: Start: 05/11/24 Expected End: 05/25/24 Description: Pt will perform functional mobility with modified independence and AD as needed 100% of the time. Disciplines: OT Problem: Standing Balance Dates: Start: 05/11/24 Disciplines: OT Goal: Improve balance to good Dates: Start: 05/11/24 Expected End: 05/25/24 Description: Pt will demo good dynamic standing balance 100% of the time. Disciplines: OT Problem: Toilet Transfers Dates: Start: 05/11/24 Disciplines: OT Goal: Patient will perform toilet transfers with Modified [place] Dates: Start: 05/11/24 Expected End: 05/25/24 Description: Pt will perform toilet transfers with modified independence and AD as needed 100% of the time. Disciplines: OT Problem: Transfers Dates: Start: 05/11/24 Disciplines: OT Goal: Patient will perform transfers with Modified [place] Dates: Start: 05/11/24 Expected End: 05/25/24 Description: Pt will perform transfers with modified independence and AD as needed 100% of the time. Disciplines: OT Occupational Therapy Care Plan (Resolved) There are no resolved problems. Principal Problem: Pancreatic neoplasm Cosigned by KATERIN Robison/Gracie at 05/11/2024 10:59 AM EDT Associated attestation - Agnes George OTR/Gracie - 05/11/2024 10:59 AM EDT I have reviewed and agree with this note and education documentation for this visit. Problem: Pain Goal: Patient goal is pain score less than 4, able to rest, and participant in treatment plan as appropriate Description: INTERVENTIONS: 1. Encourage patient or legal shipping services sales representative to report early pain and ask for pain medicine when needed 2. Assess pain using appropriate pain scale and include the scale used when documenting 3. Administer analgesics based on type and severity of pain and evaluate response within appropriate time frame 4. Implement non-pharmacological measures as appropriate and evaluate response 5. Consider cultural and social influences on pain and pain management 6. Notify LIP if interventions ineffective or patient reports new pain 7. Monitor vital signs including pulse ox, end-tidal CO2 based on pain intervention 8. Reassess pain per policy 9. Teach patient or legal shipping services sales representative interventions for comforting Outcome: Progressing Note: Evaluation of progress towards goal: Patient goal is __0___ score for pain. Patient assessed for pain with hourly rounding. Pain managed with PRN pain medications as per orders, and additionally with non-medication interventions such as repositioning and relaxation. Patient reports satisfaction with current pain management regimen Problem: Safety Goal: Patient will be injury free during hospitalization Description: INTERVENTIONS: 1. Assess patient's risk for falls and implement fall prevention plan of care per policy 2. Provide and maintain a safe environment 3. Proper use of double Identifiers 4. Medication administration using the 5 rights 5. Hand hygiene 6. Specimens are labeled at the bedside 7. Instruct patient/ patient shipping services sales representative about use of safety devices 8. Include patient/ patient shipping services sales representative in decisions related to safety Outcome: Progressing Note: Evaluation of progress towards goal: Patient assessed for appropriate safe patient handling equipment, and equipment used as per policy. Patient's environment is safely maintained. Medications passed as per policy. Five rights used for all interventions. No falls or injury during this stay. Problem: Urinary Incontinence Goal: Perineal skin integrity is maintained or improved Description: INTERVENTIONS 1. Assess genitourinary system, perineal skin, labs (urinalysis), and history of incontinence to include past management, aggravating, and alleviating factors 2. Keep skin clean and dry 3. Apply skin protectant 4. Develop skin care regimen 5. Provide privacy when changing patients incontinence device to maintain their dignity 6. Consider placing an indwelling catheter 7. Collaborate with interdisciplinary team and initiate plans and interventions as needed Outcome: Progressing Note: Evaluation of progress towards goal: Pt per cooper catheter. Cooper care every shift provided with CHG impregnated wipes DISCHARGE PLANNING NOTE CN attempted to open case, patient is at Hemodialysis today. CN will open at a later date. - PERLA ENRIQUE RN 05/10/24 3:08 PM Physical Therapy CANCEL - Deferred Hold PT eval d/t concern that pt may be having an TX. Occupational Therapy CANCEL - Deferred (per RN Cydney hold on OT evaluation at this time d/t concern of pt having a heart attack. cont as able w/ OT eval) PPC consulted for concern of STEMI on EKG. EKG reviewed with Dr. Bennett. EKG is not a STEMI and is c/w LVH, similar to prior EKG 04/26/24. HS troponin only 38. No further recommendations, please call with concerns. MIYA Gale 05/10/24 [id number] Problem: Pain Goal: Patient goal is pain score less than 4, able to rest, and participant in treatment plan as appropriate Description: INTERVENTIONS: 1. Encourage patient or legal shipping services sales representative to report early pain and ask for pain medicine when needed 2. Assess pain using appropriate pain scale and include the scale used when documenting 3. Administer analgesics based on type and severity of pain and evaluate response within appropriate time frame 4. Implement non-pharmacological measures as appropriate and evaluate response 5. Consider cultural and social influences on pain and pain management 6. Notify LIP if interventions ineffective or patient reports new pain 7. Monitor vital signs including pulse ox, end-tidal CO2 based on pain intervention 8. Reassess pain per policy 9. Teach patient or legal shipping services sales representative interventions for comforting Outcome: Progressing Note: Evaluation of progress towards goal: Patient goal is __0___ score for pain. Patient assessed for pain with hourly rounding. Pain managed with PRN pain medications as per orders, and additionally with non-medication interventions such as repositioning and relaxation. Patient reports satisfaction with current pain management regimen Problem: Safety Goal: Patient will be injury free during hospitalization Description: INTERVENTIONS: 1. Assess patient's risk for falls and implement fall prevention plan of care per policy 2. Provide and maintain a safe environment 3. Proper use of double Identifiers 4. Medication administration using the 5 rights 5. Hand hygiene 6. Specimens are labeled at the bedside 7. Instruct patient/ patient shipping services sales representative about use of safety devices 8. Include patient/ patient shipping services sales representative in decisions related to safety Outcome: Progressing Note: Evaluation of progress towards goal: Patient assessed for appropriate safe patient handling equipment, and equipment used as per policy. Patient's environment is safely maintained. Medications passed as per policy. Five rights used for all interventions. No falls or injury during this stay. Problem: Infection Goal: Absence of infection during hospitalization Description: Interventions: 1. Assess and monitor for signs and symptoms of infection 2. Monitor lab/diagnostic results 3. Monitor all insertion sites i.e., indwelling lines, tubes and drains 4. Monitor endotracheal (as able) and nasal secretions for changes in amount and color 5. Administer medications as ordered 6. Instruct and encourage patient and family to use good hand hygiene technique 7. Identify and instruct patient/patient shipping services sales representative in use of appropriate isolation precautions for identified infection/symptoms 8. Provide and discuss with patient/patient shipping services sales representative on educational MDRO sheet 9. Encourage and monitor nutritional status daily and consult human resources trainee if indicated 10. Implement neutropenic guidelines as needed 11. Review exposure to history of communicable disease and recent travel history on admission 12. Encourage annual influenza vaccine 13. Encourage pneumonia vaccine Outcome: Progressing Note: Evaluation of progress towards goal: Patients vitals and labs monitored for s/s of infection. Lines, tubes, and drain sites evaluated for s/s infection. Dressings changes and antibiotic therapy as per orders. Surgeon: Jeffrey Mcfadden MD Chassis Mechanic : Kylie Wade PA-C no appropriate level resident was available for this case. Pre Operative Diagnosis : PANCREATIC NEOPLASM Post Operative Diagnosis : Pancreatic adenocarcinoma Procedure: Central pancreatectomy transition to standard Whipple Falciform ligament flap. Intraoperative ultrasound of the pancreas Prevena wound VAC placement Anesthesia Type: General, Duramorph spinal EBL: 400 mL Fluids: As per anesthesia flow sheet Findings: Patient had adenocarcinoma of the pancreatic neck lesion on frozen section with a positive proximal margin. Complications: None. Specimen: Pancreatic neck, Whipple specimen, portal lymph nodes, hepatic artery lymph nodes Drains: Fish drain x1 Disposition: Extubated and stapled to the intensive care unit Evidence of infection was not visualized at time of surgery. Clinical History: 68-year-old male with history of partial nephrectomy due to renal cell cancer who is on dialysis and also had pancreatic lesion concerning for high-grade dysplasia, possible malignancy a pancreatic neck. Patient presents to undergo pancreatic neck resection with possible Whipple or distal pancreatectomy and splenectomy. We discussed the procedure as well as the risks benefits alternative treatments. Specific risks included bleeding, infection, pancreatic fistula, perioperative mortality. All questions were answered informed consent was signed. Zosyn given for perioperative antibiotic prophylaxis. Procedure: Patient brought to operating room placed supine position table after Duramorph spinal. An adequate amount of general endotracheal anesthesia was achieved. Adequate IV access and A-line placed by Anesthesia Cooper catheter by nursing. An appropriate time-out was held during which the patient and the operation were both appropriately identified it was confirmed that appropriate perioperative antibiotics had been given. Incision was made midline from the xiphoid to just below the level of the umbilicus 10 blade followed by Bovie electric cautery. Peritoneal cavity was entered carefully and falciform ligament was taken down and preserved for later use. George retractor was set into place. We took down some adhesions between the colon and the gallbladder fossa as well as then opened up into the lesser sac with division of the gastrocolic ligament with the LigaSure device. The stomach was retracted cephalad and we got defined the inferior aspect of the pancreatic neck as the SMV came up underneath it. We then ultrasounded the pancreas and were able to see the mass in the proximal pancreatic neck. We then defined the portal vein superiorly identifying isolate and ligating the gastroduodenal artery proximally distally and divided. We then placed a five 0 Prolene stay suture pressure reinforcement along with a metal clip on the stay side. Additionally we then took down the gastro epiploic artery and vein on the right ligating them separately with 3-0 Vicryl ties metal clips and dividing. We took a few small feeder vessels from the pancreas into the proximal pylorus to allow us a little more room for resection. Then we tunneled underneath the neck of the pancreas placed a 3-0 Prolene stay sutures on the distal and proximal sides. After placing umbilical tape underneath here we then raised it up and using a 10 blade divided pancreas a little on the left lateral side of the portal vein. Then we continued to rotate the pancreatic neck tissue towards the pancreatic head ligating any small branches with 3-0 Vicryl ties and clips or 5 0 Prolene as needed. Then after Re ultrasounded we could see that we were proximal to the lesion and the pancreas and we used a laparoscopic Endo-ENRIKE black load 60 to divide it. I took the specimen to pathology and oriented it for them I had them checked proximal and distal margin as well as we opened it up and confirm that the lesion was within the pancreatic duct at this area consistent with what had been seen on endoscopic ultrasound and preoperative imaging. The distal body margin was negative for any high-grade dysplasia or adenocarcinoma. However adenocarcinoma was found in the tumor and was positive at the proximal margin in the pancreatic head. As no more pancreatic head margin could be taken without doing a Whipple we proceeded on with a Whipple. We addressed and took the hepatic artery lymph nodes mobilized and sent to pathology. We also additionally took multiple portal lymph nodes between the biliary hilum and the pancreatic head and sent to pathology. We then encircled around the bile duct ligated proximal and distal with an 0 Vicryl tie and divided. We then Shruthi eyes the duodenal this was done with some degree of difficulty due to the patient's prior partial right hepatectomy and scarring. We are really to do this until we could palpate a margin between it and the superior mesenteric artery with the pancreatic head. Next we turned our attention towards the stomach and went to the 3rd crossing vein and then used laparoscopic Endo-ENRIKE bermeo load 60 x 2 to divide it. We then turned our attention towards the small intestine and went about 15 cm distal to ligament of Treitz divided the intestine with a bermeo load 60 and then used a LigaSure device to divide the mesentery until we were able to take it around the root of the mesentery. The ligament of Treitz was noted to be a little long gated the came down okay. After this we then continued to disconnect the head of the pancreas completely off the superior mesenteric vein as well as lateral aspect of the superior mesenteric artery ligating small branches as appropriate with 3-0 Vicryl ties and clips and divided with LigaSure. Specimen was then taken off and sent to pathology. It was not oriented as pathologist were not here at the time of the completion of the resection. Next we ensured everything was hemostatic. We then made an opening in the transverse mesocolon to the right of middle colic vessels. We then brought up the and small intestine assuring it was not twisted and put it end-to-side with the pancreas. Pancreas was somewhat diminutive but firm and the duct itself was over a cm in diameter. We used 4 0 Alhambra-Amadeo for running posterior wall made a small enterotomy the Bovie and then used 5 0 PDS in a running fashion x2 to perform the duct to mucosa anastomosis. A 2nd 4 0 Alhambra-Amadeo was used in a running fashion to complete the anterior wall of the 2nd layer. Falciform ligament was taken down and wrapped around and secured with a 3-0 Vicryl stitch. We then turned our attention towards the bile duct and cut a fresh margin on the common duct which was about a cm in size however was fairly thin. We brought the small intestine up about 10 cm distal in a lazy loop made appropriate size enterotomy and performed an end-to-side hepaticojejunostomy with interrupted 5 0 PDS. Ray-Kee around it afterwards and 1 removed there was no bile staining. We then sprayed everything with platelet rich plasma and anchored the pancreatic or biliary limb to transverse mesocolon. We removed all laps out of there and put a 19 Fish FARHAT behind both of these anastomosis. We then went on the transverse mesocolon just to the right of the middle colic vessels and divided the mesentery to allow for an anti colic retrogastric gastrojejunostomy. We placed this in an isoperistaltic fashion between the small intestine and the posterior gastric wall. 3-0 Vicryl were used for stay sutures appropriate size enterotomy and gastrotomy were made and the anastomosis was performed with 3 loads of the Endo-ENRIKE bermeo 60. We had anesthesia place a Cortrak via the patient's nose and we were able to physically palpate it and put it past the anastomosis into the efferent limb of the gastrojejunostomy. Remaining opening was closed with 3-0 Vicryl in interrupted Lembert fashion. The rest of the retractor was removed and the fascia was closed with 0 looped PDS in a running fashion x2. Wound was irrigated skin stapled and Prevena wound VAC placed. All counts of instruments, needles and sponges were correct. I was present and scrubbed for the entire procedure with exception of VAC application. Patient was extubated and taken to secure stable condition. There was no appropriate level resident to help with this case and my orthopedic assistant aided with critical exposure during the case, utilization of LigaSure and stapler as directed, cutting of suture, wound closure. ANESTHESIA REVIEW OR 05/09/24 WHIPPLE: AAA, ESRD-dialysis, CAD, DM, no cp or sob. Cardiac clearance 04/11/24 (in letters tab), cardiac note 01/02/24, stress 11/16/23, echo 07/12/23, EKG's. Reviewed and accepted by Dr. Ayala, no further orders or requests. documented in this encounter [facility] 05-17-2024 Hospital course Narrative Discharge Summary Admitting Provider: Jeffrey Mcfadden MD Discharge Provider: Jeffrey Mcfadden MD Primary Care Physician: DYLAN MONTILLA MD [phone] Admission Date: 05/09/2024 Discharge Date: 05/17/2024 Admission Diagnosis/Reason for Hospitalization: IPMN Primary Discharge Diagnosis IPMN Operative Procedures Performed Procedure(s): WHIPPLE WITH INTRA OPERATIVE ULTRASOUND- BIOBANK Treatments: surgery: as above Consults: pulmonary/intensive care and nephrology Procedures: arterial line Pertinent Test Results: see final pathology report Hospital Course 68-year-old male with history of partial nephrectomy due to renal cell cancer who is on dialysis and also had pancreatic lesion concerning for high-grade dysplasia, possible malignancy a pancreatic neck. Patient presents to undergo pancreatic neck resection with possible Whipple or distal pancreatectomy and splenectomy. He did well intraoperatively and postoperatively. At discharge he is tolerating a regular diet, having regular BMs and pain is controlled with po pain meds. Drain removed and site sutured prior to discharge. Gen: AAO, NAD Skin: warm and dry HEENT: normocephalic, atraumatic CV: RRR Pulm: CTAB Abd: soft, NT, ND INC C/D/I Neuro: grossly intact Discharge Disposition Home Discharge Condition Discharge Condition: fair Discharge Instructions: No lifting more than 10 lbs No driving while taking narcotics Follow up with Dr Mcfadden's office in 1-2 weeks Follow up with PCP in 2-3 weeks for blood sugar and blood pressure FLAVIA Holly 05/17/24 0959 I, Jeffrey Mcfadden MD, personally performed the face to face diagnostic evaluation on this patient. I have reviewed the CELE's History, Exam, and MDM and agree with the assessment and plan as written. documented in this encounter [facility] 05-17-2024 Procedure note Associated Ord er(s): HEMODIALYSIS INPATIENT Patient completed 165min HD of 210 Patient tolerated well until he had to use the restroom he declined to go back on. Nova was educated about staying on the machine the entire time. Patient CVC ran well at 450 BFR No meds given Post BP- 154/78 Post Weight- 60.8kg Removed- 0.7 Associated Order(s): HEMODIALYSIS INPATIENT Pt completed 3.5 HD tx. Pt tolerated tx well until last 30 minutes. He began to get warm and started cramping. Ran at minimum UFR for remaining of tx. No medications given. Lines function well. BFR maintained a 450 Post tx: BP 150/70 HR 86 Wt 60.6 Fluid Removed 3.7 per standing scale. Report given to primary RN. - Tanja Jane RN 05/15/24 2:16 PM Associated Order(s): HEMODIALYSIS INPATIENT Pt completed 3 hours of hemodialysis. He was anxious the last hour of tx, he did not want to finish tx. Per MD Uf in minimum and 250ml NS bolus given at this time. Pt hypertensive but refused BP meds. Pre wt 67 kg Post wt 66.6 kg 0.4ml fluid removal. CVC functioned well. Report given to primary RN in ICU Associated Order(s): HEMODIALYSIS INPATIENT Zev Crystal completed 3.5 hr Hemodialysis on 05/10/24. Treatment was tolerated well. Patient became restless and wanted to get out of bed as he was not comfortable laying in bed, denies being repositioned, but able to complete full treatment. No medications given during the treatment. BP stable throughout the tx. Used right chest tunneled catheter dialysis access which functioned well @ 400 BFR. Dressing changed. Post BP = 160/49 HR 77 (arterial line) Post treatment weight = 66.8 kg Removed = 2.6 kg per bed scale however bed scale weight discrepancy. Removed 1L per dialysis machine (& per order). More information per Flowsheets & MAR. - Akosua Rogel RN, Dialysis 05/10/24 documented in this encounter [employer] 05-16-2024 History of Present illness Narrative HEPATOBILIARY, PANCREAS & ENDOCRINE SURGERY PROGRESS NOTE Principal Problem: Pancreatic neoplasm LOS: 7 days Subjective Interval History: Only ate a few bites of breakfast because it doesn't taste good. Also minimal po intake yesterday for the same reason. Denies N/V +BM Ambulating in the kc Patient is very frustrated and wants to discharge home today FARHAT: 185 Objective Vital signs in last 24 hours: Temp: [36.4 C (97.5 F)-36.9 C (98.5 F)] 36.4 C (97.5 F) Pulse: [80-103] 95 Resp: [15-20] 18 BP: (125-165)/(67-97) 158/79 SpO2: [97 %-98 %] 98 % O2 Device: None (Room air) O2 Flow Rate (L/min): [0 L/min] 0 L/min Intake/Output this shift: I/O this shift: In: - Out: 20 [Drains:20] Labs: Recent Results (from the past 24 hours) Bedside Glucose *Place/Obtain serum glucose if >500(>600 MRH) per glucometer. Collection Time: 05/15/24 5:25 PM Result Value Ref Range Bedside glucose 150 (H) 65 - 99 mg/dL Bedside Glucose *Place/Obtain serum glucose if >500(>600 MRH) per glucometer. Collection Time: 05/15/24 8:43 PM Result Value Ref Range Bedside glucose 189 (H) 65 - 99 mg/dL Bedside Glucose *Place/Obtain serum glucose if >500(>600 MRH) per glucometer. Collection Time: 05/15/24 11:57 PM Result Value Ref Range Bedside glucose 135 (H) 65 - 99 mg/dL Bedside Glucose *Place/Obtain serum glucose if >500(>600 MRH) per glucometer. Collection Time: 05/16/24 4:01 AM Result Value Ref Range Bedside glucose 143 (H) 65 - 99 mg/dL Comprehensive metabolic panel Collection Time: 05/16/24 5:59 AM Result Value Ref Range Sodium 135 134 - 146 mmol/L Potassium, Bld 4.6 3.5 - 5.0 mmol/L Chloride 97 (L) 98 - 109 mmol/L CO2 20 (L) 22 - 32 mmol/L Anion gap 18 (H) 5 - 15 mmol/L BUN 37 (H) 5 - 27 mg/dL Creatinine 3.32 (H) 0.60 - 1.30 mg/dL Glucose 163 (H) 65 - 99 mg/dL Calcium 8.8 8.5 - 10.5 mg/dL Total Protein 7.0 6.0 - 8.0 g/dL Albumin 4.1 3.2 - 5.3 g/dL Alkaline Phosphatase 99 39 - 130 U/L AST 20 0 - 41 U/L ALT 32 0 - 40 U/L Total bilirubin 0.7 0.3 - 1.2 mg/dL eGFR (CKD-EPI)non-race dependent 20 (L) >59 ml/min/1.73sq.m Magnesium Collection Time: 05/16/24 5:59 AM Result Value Ref Range Magnesium 2.2 1.8 - 2.6 mg/dL Phosphorus Collection Time: 05/16/24 5:59 AM Result Value Ref Range Phosphorus 5.3 (H) 2.4 - 4.9 mg/dL CBC auto differential Collection Time: 05/16/24 5:59 AM Result Value Ref Range White Blood Cells 11.5 (H) 4.0 - 11.0 X10E9/L RBC count 3.57 (L) 4.10 - 5.70 X10E12/L Hemoglobin 11.7 (L) 13.0 - 17.0 g/dL Hematocrit 33.1 (L) 39 - 49 % MCV 93 80 - 100 fL MCH 32.7 27 - 34 pg MCHC 35.2 32 - 36 g/dL RDW 13.3 11.5 - 15.0 % Platelets 313 150 - 450 X10E9/L MPV 6.8 (L) 7 - 12 fL % neutrophils 56.5 % % lymphocytes 30.9 % % monocytes 5.1 % % eosinophils 6.6 % % Basophils 0.9 % Neutrophils Absolute (A) 6.5 1.5 - 6.6 X10E9/L Lymphocytes Absolute 3.6 (H) 1.0 - 3.5 X10E9/L Monocytes Absolute 0.6 0 - 0.9 X10E9/L Eosinophils Absolute 0.8 (H) 0.0 - 0.4 X10E9/L Basophils Absolute 0.1 0.0 - 0.2 X10E9/L Bedside Glucose *Place/Obtain serum glucose if >500(>600 MRH) per glucometer. Collection Time: 05/16/24 7:36 AM Result Value Ref Range Bedside glucose 189 (H) 65 - 99 mg/dL Bedside Glucose *Place/Obtain serum glucose if >500(>600 MRH) per glucometer. Collection Time: 05/16/24 12:10 PM Result Value Ref Range Bedside glucose 184 (H) 65 - 99 mg/dL Imaging: No results found. Physical Exam: Physical Exam Constitutional: General: He is not in acute distress. Appearance: He is not ill-appearing. HENT: Head: Normocephalic and atraumatic. Eyes: Extraocular Movements: Extraocular movements intact. Cardiovascular: Rate and Rhythm: Normal rate. Pulmonary: Effort: Pulmonary effort is normal. Abdominal: General: There is no distension. Palpations: Abdomen is soft. Tenderness: There is no abdominal tenderness. Comments: INC C/D/I FARHAT: ss Skin: General: Skin is warm and dry. Neurological: Mental Status: He is alert and oriented to person, place, and time. Assessment/Plan The patient is a 68 y.o. male with a pertinent medical history of end-stage renal disease on hemodialysis, type 2 diabetes, hypertension, hypothyroidism, hyperlipidemia, peptic ulcer disease, open partial nephrectomy for renal cell carcinoma who is now 7 Days Post-Op from to a standard Whipple with falciform ligament flap for pancreatic adenocarcinoma (identified on frozen section with positive proximal margin). Encouraged po intake today to ensure he able to tolerate it- whether it is 3 Boost/Ensures, eating hospital food, having family bring something he enjoys. Explained that ensuring he is eating and drinking enough to be safe at home needs to be established prior to discharge. FLAVIA Holly 05/16/24 1232 Attending Note: I have seen and evaluated the patient and have also reviewed the note above. I have performed the kurtz portions of the physical exam and concur with the PA's findings. I have reviewed all laboratory findings and imaging reports/films. I was directly involved in the management and treatment plan of the patient and for this service. I agree with the plan as noted above. Additional findings/notes: Had extensive discussion with patient about my concern for inadequate PO intake. Patient understandably cited poor taste of hospital food. We discussed the above as noted by PA. If he is able to have good PO intake today, maybe home tomorrow. Kylee Cao MD Surgical Oncologist Hepatobiliary, Pancreas & Endocrine Surgery Images from the original note were not included. NEPHROLOGY DAILY PROGRESS NOTE Subjective: Patient tells me he is angry today. Wants to go home. Overall frustrated Vital signs in last 24 hours: Vitals: 05/15/24 2335 05/16/24 0424 05/16/24 0745 05/16/24 0831 BP: 154/81 164/81 165/76 158/79 Pulse: 103 81 80 95 Resp: 17 17 18 Temp: 36.7 C (98.1 F) 36.5 C (97.7 F) 36.4 C (97.5 F) TempSrc: Oral Oral Oral SpO2: 97% 98% 98% Weight: 60.6 kg (133 lb 9.6 oz) Height: Intake/Output: Intake/Output Summary (Last 24 hours) at 05/16/2024 1058 Last data filed at 05/16/2024 0800 Gross per 24 hour Intake 620 ml Output 2690 ml Net -2070 ml Physical Exam: General appearance: alert in no acute distress. HEENT: no JVD, no carotid bruits, no lymphadenopathy. Heart:: normal S1-S2, No gallops. Lungs: clear to auscultation B/L Abdomen: no tenderness, no guarding, no hepatosplenomegaly could be appreciated. Drain is in place Extremities: No LE edema Inpatient Meds: carvediloL, 25 mg, oral, BID docusate sodium, 100 mg, oral, BID heparin (porcine), 5,000 Units, subcutaneous, Q8H DALIA insulin lispro, 2-16 Units, subcutaneous, Q4H levothyroxine, 50 mcg, oral, Daily metoclopramide, 5 mg, intravenous, Q12H NIFEdipine XL, 60 mg, oral, Q24H DALIA sodium chloride, 10 mL, intravenous, Q96H sodium chloride, 10 mL, intravenous, Q96H sodium citrate, 1.6 mL, intravenous, Q96H sodium citrate, 1.6 mL, intravenous, Q96H sodium citrate, 1.7 mL, intravenous, Q96H sodium citrate, 1.7 mL, intravenous, Q96H sodium chloride 0.9 %, 3 mL/hr, Last Rate: 3 mL/hr (05/12/24 191) Nutrition: Dietary Orders (From admission, onward) Start Ordered 05/14/24 0824 Adult nutrition supplements Continuous Question Answer Comment Diet Type or Consistency: Regular Texture Select Supplement: Standard House Supplement 8 oz Supplement Frequency: TID 05/14/24 0805/14/24 0812 Adult diet Regular Texture Diet effective now Question: Diet Type: Answer: Regular Texture 05/14/24 0811 Labs: Results from last 7 days Lab Units 05/16/24 0559 05/15/24 0630 05/14/24 0314 SODIUM mmol/L 135 137 138 POTASSIUM mmol/L 4.6 4.4 4.1 CHLORIDE mmol/L 97* 102 103 CO2 mmol/L BUN mg/dL 37* 36* 25 CREATININE mg/dL 3.32* 2.86* 2.69* CALCIUM mg/dL 8.8 8.7 8.5 PHOSPHORUS mg/dL 5.3* 4.0 3.7 MAGNESIUM mg/dL 2.2 2.2 2.2 Results from last 7 days Lab Units 05/16/24 0559 05/15/24 0630 05/14/24 0314 WBC X10E9/L 11.5* 8.3 8.0 HEMOGLOBIN g/dL 11.7* 10.3* 10.2* HEMATOCRIT % 33.1* 29.5* 29.0* PLATELETS X10E9/L 313 228 200 Results from last 7 days Lab Units 05/16/24 0559 05/15/24 0630 05/14/24 0314 MAGNESIUM mg/dL 2.2 2.2 2.2 Lab Results Component Value Date CALCIUM 8.8 05/16/2024 Lab Results Component Value Date IRON 47 (L) 05/15/2024 TIBC 234 (L) 05/15/2024 FERRITIN 652 (H) 05/15/2024 Imaging Studies: PROBLEM LIST End-stage renal disease on hemodialysis Tuesday dialyzing at [facility] renal [facility]. End-stage renal disease secondary to postoperative acute tubular necrosis along with loss of renal mass with partial nephrectomy of the right solitary kidney, left kidney is atrophic. Initiated on hemodialysis 05/23/2023. Dialyzing via right upper extremity AV fistula. Previous renal workup June 2023 showed SPEP pending, PIA pending, Anca panel pending, rheumatoid factor less than 10, C3 and C4 were unremarkable, hepatitis panel was nonreactive. Urinalysis from June 2023 showed 300 mg/dL protein with 118 RBCs and 20 wbc's per high-power field with a protein to creatinine ratio of 4.7 grams/gram. 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 Lombardi Dyslipidemia Cholecystectomy Coronary artery disease Hypothyroidism Peptic ulcer Anxiety Strabismus surgery Vasectomy IMPRESSION End Stage Renal Disease on hemodialysis every Tuesday and Tuesday. Usually dialyzes at [facility] in [facility]. Hemodialysis is planned on Pancreatic adenocarcinoma status post Whipple procedure on 05/09/2024 Anemia of chronic kidney disease with hemoglobin is currently at goal. Iron is 47 ferritin 652% sat 20 folate 6.7. Hypertension blood pressure is currently under good control. Bone and minerals: Calcium and phosphorus are in reasonable range Type 2 diabetes mellitus: Management per primary service RECOMMENDATIONS 1. Hemodialysis is planned on . 2. No objection to discharge from Nephrology perspective WILLARD DE LA PAZ MD,PhD. [facility] ANY QUESTIONS FEEL FREE TO CALL: 1. OFFICE [phone] 2. ANSWERING SERVICE: [phone] Images from the original note were not included. FOLLOW-UP: Post-Intensive Care Rounding Note Patient: Zev Crystal : 1955 Age: 68 y.o. Length of Stay: 6 days Admission Diagnosis: Pancreatic neoplasm [D49.0] Hyperkalemia [E87.5] Reviewing patient due to his recent transfer out from Intensive Care. Recorded vital signs are stable and the patient is not noted to be in any apparent distress. Telemetry and monitoring noted. Staff may call with any issues or concerns regarding his clinical presentation or stability. Thank you, Shivani Jarquin RN Rapid Response: [facility] NUTRITION ADULT FOLLOW UP NUTRITION ASSESSMENT: Patient History: Brief Clinical Summary: Patient presented to [facility] for surgery. Whipple performed 05/09 for for pancreatic adenocarcinoma . PMH ESRD on HD, T2DM, HTN, hypothyroidism, HLD, peptic ulcer disease, renal cell carcinoma. Biochemical Data, Medical Tests, and Procedures: 05/10 HD Labs: Results from last 3 days Lab Units 05/15/24 0630 05/14/2431305/13/24 2138 05/13/24 1607 05/13/24 0247 SODIUM mmol/L 137 138 -- -- 136 POTASSIUM mmol/L 4.4 4.1 3.8 < > 3.7 CHLORIDE mmol/L 102 103 -- -- 100 CO2 mmol/L 24 23 -- -- 26 BUN mg/dL 36* 25 -- -- 20 CREATININE mg/dL 2.86* 2.69* -- -- 2.46* CALCIUM mg/dL 8.7 8.5 -- -- 8.9 ALBUMIN g/dL 3.6 3.6 -- -- 3.8 ALK PHOS U/L 80 76 -- -- 82 ALT U/L 30 40 -- -- 59* AST U/L 13 16 -- -- 22 < > = values in this interval not displayed. Results from last 7 days Lab Units 05/15/24 0733 05/15/24 0630 05/15/24 0420 05/15/24 0004 05/14/24 2046 05/14/24 1608 05/14/24 1212 BEDSIDE GLUCOSE mg/dL 144* -- 142* 100* 197* 127* 167* GLUCOSE mg/dL -- 156* -- -- -- -- -- Results from last 3 days Lab Units 05/15/24 0630 05/14/24 0314 05/13/24 0247 WBC X10E9/L 8.3 8.0 9.2 HEMOGLOBIN g/dL 10.3* 10.2* 10.7* HEMATOCRIT % 29.5* 29.0* 30.4* PLATELETS X10E9/L 228 200 192 MCV fL 93 93 93 Results from last 3 days Lab Units 05/15/24 0630 05/14/24 0314 05/13/24 0247 MAGNESIUM mg/dL 2.2 2.2 2.2 Results from last 3 days Lab Units 05/15/24 0630 05/14/24 0314 05/13/24 1607 PHOSPHORUS mg/dL 4.0 3.7 4.0 Results from last 3 days Lab Units 05/15/24 0630 05/14/24 0314 05/13/24 0247 TOTAL BILIRUBIN mg/dL 0.6 0.6 0.7 Lab Results Component Value Date HGBA1C 5.7 (H) 04/25/2024 Lab Results Component Value Date IRON 47 (L) 05/15/2024 TIBC 234 (L) 05/15/2024 FERRITIN 652 (H) 05/15/2024 Lab Results Component Value Date IRONSAT 20 05/15/2024 Lab Results Component Value Date CHOL 121 (L) 02/23/2018 Lab Results Component Value Date CHDL 4.8 02/23/2018 Lab Results Component Value Date HDL 25 (L) 02/23/2018 Lab Results Component Value Date LDLCALC 57 02/23/2018 Lab Results Component Value Date TRIG 196 (H) 02/23/2018 Lab Results Component Value Date VERYLOWLIP 39 (H) 02/23/2018 Lab Results Component Value Date EDSVOWPC14 314 05/15/2024 Lab Results Component Value Date FOLATE 6.7 05/15/2024 No results found for: VITD25 Comments (labs): Cr and BUN elevated, eGFR low Medications/ Parenteral: Colace, Synthroid, Reglan Current Facility-Administered Medications Medication Dose Route Frequency Provider Last Rate Last Admin acetaminophen (TYLENOL EXTRA STRENGTH) tablet 1,000 mg 1,000 mg oral Q6H PRN Desean Taylor MD calcium gluconate IVPB 1000 mg/50 mL (20 mg/mL premix) 1,000 mg intravenous PRN FLAVIA Holly Stopped at 05/10/24 0610 Or calcium gluconate IVPB 2000 mg/100 mL (20 mg/mL premix) 2,000 mg intravenous PRN FLAVIA Holly Or calcium gluconate 3,000 mg in sodium chloride 0.9 % 100 mL IVPB 3,000 mg intravenous PRN FLAVIA Holly carvediloL (COREG) tablet 25 mg 25 mg oral BID Parker Rachel MD 25 mg at 05/14/24 2040 dextrose (GLUTOSE) 40 % gel 15 g 15 g oral PRN FLAVIA Holly dextrose 50 % in water (D50W) 50% solution 25 mL 25 mL intravenous PRN FLAVIA Holly dextrose 50 % in water (D50W) 50% solution 50 g 50 g intravenous Once PRN Parker Rachel MD docusate sodium (COLACE) capsule 100 mg 100 mg oral BID Desean Taylor MD 100 mg at 05/15/24 0831 glucagon HCL injection 1 mg 1 mg intramuscular PRN FLAVIA Holly heparin (porcine) injection 5,000 Units 5,000 Units subcutaneous Q8H [facility] Amanda Randall PA-C 5,000 Units at 05/13/24 1445 hydrALAZINE (APRESOLINE) injection 20 mg 20 mg intravenous Q4H PRN Sushil Bryant MD 20 mg at 05/12/24 1753 HYDROmorphone (PF) (DILAUDID) injection 1 mg 1 mg intravenous Q4H PRN Desean Taylor MD 1 mg at 05/12/24 0256 insulin lispro (HumaLOG) injection 2-16 Units 2-16 Units subcutaneous Q4H Stanley Thomas MD 4 Units at 05/14/24 2059 labetaloL (NORMODYNE,TRANDATE) injection 20 mg 20 mg intravenous Q4H PRN Sushil Bryant MD 20 mg at 05/13/24 2313 levothyroxine (SYNTHROID, LEVOTHROID) tablet 50 mcg 50 mcg oral Daily Bernardo Man MD 50 mcg at 05/15/24 0531 magnesium sulfate IVPB 2000 mg/50 mL in iso-osmotic water (40 mg/mL premix) 2,000 mg intravenous PRN FLAVIA Holly Or magnesium sulfate IVPB 4000 mg/100 mL in iso-osmotic water (40 mg/mL premix) 4,000 mg intravenous PRN FLAVIA Holly metoclopramide (REGLAN) injection 5 mg 5 mg intravenous Q12H Cristian Hunter MD 5 mg at 05/15/24 0831 NIFEdipine XL (PROCARDIA XL) 24 hr tablet 60 mg 60 mg oral Q24H [facility] Sobeida Self MD ondansetron (PF) (ZOFRAN) injection 4 mg 4 mg intravenous Q4H PRN FLAVIA Holly 4 mg at 05/14/242033 oxyCODONE (ROXICODONE) immediate release tablet 5 mg 5 mg oral Q4H PRN Desean Taylor MD 5 mg at 05/13/24 0829 Or oxyCODONE (ROXICODONE) immediate release tablet 10 mg 10 mg oral Q4H PRN Desean Taylor MD 10 mg at 05/14/242057 polyethylene glycol (GLYCOLAX) packet 17 g 17 g oral Daily PRN Desean Taylor MD potassium chloride (K-TAB,KLOR-CON) CR tablet 20-50 mEq 20-50 mEq oral PRN FLAVIA Holly 10 mEq at 05/13/24 0513 Or potassium chloride (KAYCIEL) 20 mEq/15 mL solution 20-50 mEq 20-50 mEq oral PRN FLAVIA Holly 20 mEq at 05/13/24 1815 potassium chloride IVPB 10 mEq/50 mL in water (0.2 mEq/mL premix) 10 mEq intravenous PRN FLAVIA Holly Or potassium chloride IVPB 10 mEq/100 mL in water (0.1 mEq/mL premix) 10 mEq intravenous PRN FLAVIA Holly sodium phosphate 20 mmol in sodium chloride 0.9 % 250 mL IVPB 20 mmol intravenous PRN FLAVIA Holly Or sodium phosphate 20 mmol in sodium chloride 0.9 % 100 mL IVPB 20 mmol intravenous PRN FLAVIA Holly Stopped at 05/13/24 1013 Or sod phos di, mono-K phos mono (K-PHOS NEUTRAL) 250 mg tablet 2 tablet 2 tablet oral PRN FLAVIA Holly sodium chloride 0.9 % bolus 150 mL intravenous Q5 Min PRN Vidhit Marlene, DO sodium chloride 0.9 % flush 10 mL 10 mL intravenous Q96H Vidhit Marlene, DO 10 mL at 05/14/24 0757 sodium chloride 0.9 % flush 10 mL 10 mL intravenous PRN Vidhit Marlene, DO 10 mL at 05/12/24 0821 sodium chloride 0.9 % flush 10 mL 10 mL intravenous PRN Vidhit Marlene, DO 10 mL at 05/15/24 1338 sodium chloride 0.9 % flush 10 mL 10 mL intravenous Q96H Vidhit Marlene, DO 10 mL at 05/14/24 0756 sodium chloride 0.9 % flush 10 mL 10 mL intravenous PRN Vidhit Marlene, DO 10 mL at 05/12/24 0821 sodium chloride 0.9 % flush 10 mL 10 mL intravenous PRN Vidhit Marlene, DO 10 mL at 05/15/24 1338 sodium chloride 0.9 % infusion 3 mL/hr intra-arterial Continuous Jeffrey Mcfadden MD 3 mL/hr at 05/12/24 1918 3 mL/hr at 05/12/24 1918 sodium citrate 4 % (3 mL) flush 1.6 mL 1.6 mL intravenous Q96H Vidhit Marlene, DO 1.6 mL at 05/14/24 0756 sodium citrate 4 % (3 mL) flush 1.6 mL 1.6 mL intravenous PRN Vidhit Marlene, DO 1.6 mL at 05/15/24 1339 sodium citrate 4 % (3 mL) flush 1.6 mL 1.6 mL intravenous Q96H Stanley Thomas MD sodium citrate 4 % (3 mL) flush 1.7 mL 1.7 mL intravenous Q96H Vidhit Marlene, DO 1.7 mL at 05/14/24 0756 sodium citrate 4 % (3 mL) flush 1.7 mL 1.7 mL intravenous PRN Vidhit Marlene, DO 1.7 mL at 05/15/24 1339 sodium citrate 4 % (3 mL) flush 1.7 mL 1.7 mL intravenous Q96H Stanley Thomas MD Nutrition Focused Physical Findings +HD cath. +drain. Last BM 05/09. Pt denied abdominal pain and nausea. Skin (per nursing flow sheets): Skin Color: [place] (05/15/24 0900) Skin Temp: Warm; Dry (05/15/24 0900) Wound (per nursing flow sheets): Wound 05/09/24 Incision Abdomen N/A-Site Assessment: Clean; Dry; Intact (05/15/24 0830) Gastrointestinal (per nursing flow sheets): Abdomen Assessment: Soft; Flat; Nondistended (05/15/24 1345) Last BM Date: 05/09/24 (05/15/24 1345) Passing Flatus: Yes (05/15/24 0900) RUQ Bowel Sounds: Hypoactive (05/15/24 1345) LUQ Bowel Sounds: Hypoactive (05/15/24 1345) RLQ Bowel Sounds: Hypoactive (05/15/24 1345) LLQ Bowel Sounds: Hypoactive (05/15/24 1345) GI Symptoms: Nausea (05/14/242033) Nausea Precipitating Factors: Movement (05/14/242033) Relieved by: Antiemetic (05/14/242033) Edema (per nursing flow sheets): Generalized Edema: None (05/15/24 0900) Intake/ Output Last 24 hrs: Intake/Output Summary (Last 24 hours) at 05/15/2024 1438 Last data filed at 05/15/2024 1345 Gross per 24 hour Intake 1009.09 ml Output 3195 ml Net -2185.91 ml Food/Nutrition Related History: Diet/ Nutrition Order Review: Dietary Orders (From admission, onward) Start Ordered 05/14/24 0824 Adult nutrition supplements Continuous Question Answer Comment Diet Type or Consistency: Regular Texture Select Supplement: Standard House Supplement 8 oz Supplement Frequency: TID 05/14/24 0823 05/14/24 0812 Adult diet Regular Texture Diet effective now Question: Diet Type: Answer: Regular Texture 05/14/24 0811 Diet Intakes: Patient continues with poor po intake, only had 1/2 a breakfast sandwich this AM, waiting on lunch at time of visit. Oral Supplemental Intake/ Acceptance: Ensure Plus TID, patient had 1 yesterday. Nutrition Knowledge/Beliefs/Attitudes: No questions at this time, patient eager to be discharged. Anthropometrics: Last 3 Weight Readings 05/14/24 0330 05/15/24 0417 05/15/24 1345 Weight: 66.4 kg (146 lb 6.2 oz) 64.1 kg (141 lb 5 oz) 60.6 kg (133 lb 9.6 oz) Current Weight: 64.1 kg (standing scale, 05/15) Admit Weight: 68.5 kg (Unknown, 05/09) Renal Standard Weight: 79kg Weight Changes: see trends above, no significant weight loss, likely diff b/t standing scale vs bed scale. Current Body Mass Index: Body mass index is 19.73 kg/m . Comparative Standards: Estimated Energy Needs: 4474-3158 kcals daily. Method and weight used: 25-30 kcal/kg dry wt Estimated Protein Needs: 73-100 grams daily. Method and weight used: 1.1-1.5 g protein/kg dry wt Estimated Fluid Needs: 1106 ml daily+UOP. Method weight used: 16.6 x dry wt +UOP Comments: detention dialysis Malnutrition Status: Malnutrition Present: more information needed NUTRITION DIAGNOSIS: Intake Diagnosis: Inadequate oral intake (NI 2.1) Ongoing NUTRITION INTERVENTIONS: Meals and snacks: Continue diet as ordered, encouraged adequate oral intake. Supplements: Ensure Plus TID as ordered RECOMMENDATIONS: Please record pt's daily percent meal intake in RN flowsheet to allow for ongoing nutrition assessment GOAL(S): Meet estimated calorie and protein needs. NUTRITION MONITORING AND EVALUATION: PO intake, supplement intake, I/O's, weights, labs, POC Rachel Sandhu RD, LD Clinical Dietitian [facility] [phone] Images from the original note were not included. FOLLOW-UP: Post-Intensive Care Rounding Note Patient: Zev Crystal : 1955 Age: 68 y.o. Length of Stay: 6 days Admission Diagnosis: Pancreatic neoplasm [D49.0] Hyperkalemia [E87.5] Reviewing patient due to his recent transfer out from Intensive Care. Recorded vital signs are stable and the patient is not noted to be in any apparent distress. Telemetry and monitoring noted. Staff may call with any issues or concerns regarding his clinical presentation or stability. Thank you, Von Mercer RN Rapid Response: [facility] Images from the original note were not included. Nephrology Daily Progress Note INTERVAL HISTORY/History of present illness: Patient had hemodialysis yesterday with 0.4 L ultrafiltration. Patient is lying in bed and comfortable. No nausea or vomiting. No chest pain. No fever or chills PROBLEM LIST: End-stage renal disease on hemodialysis Tuesday dialyzing at [facility]. End-stage renal disease secondary to postoperative acute tubular necrosis along with loss of renal mass with partial nephrectomy of the right solitary kidney, left kidney is atrophic. Initiated on hemodialysis 05/23/2023. Dialyzing via right upper extremity AV fistula. Previous renal workup June 2023 showed SPEP pending, PIA pending, Anca panel pending, rheumatoid factor less than 10, C3 and C4 were unremarkable, hepatitis panel was nonreactive. Urinalysis from June 2023 showed 300 mg/dL protein with 118 RBCs and 20 wbc's per high-power field with a protein to creatinine ratio of 4.7 grams/gram. 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 Lombardi Dyslipidemia Cholecystectomy Coronary artery disease Hypothyroidism Peptic ulcer Anxiety Strabismus surgery Vasectomy VITAL SIGNS TREND: Vitals: 05/15/24 1005 05/15/24 1030 05/15/24 1100 05/15/24 1230 BP: 154/68 146/77 131/79 130/75 Pulse: 75 81 84 101 Resp: Temp: TempSrc: SpO2: Weight: Height: INTAKE/OUTPUT: Intake/Output Summary (Last 24 hours) at 05/15/2024 1250 Last data filed at 05/15/2024 0830 Gross per 24 hour Intake 639.09 ml Output 685 ml Net -45.91 ml I/O this shift: In: - Out: 85 [Drains:85] WEIGHT: Wt Readings from Last 3 Encounters: 05/15/24 64.1 kg (141 lb 5 oz) 04/25/24 68.5 kg (151 lb 0.2 oz) 04/16/24 69.4 kg (153 lb) carvediloL, 25 mg, oral, BID docusate sodium, 100 mg, oral, BID heparin (porcine), 5,000 Units, subcutaneous, Q8H DALIA insulin lispro, 2-16 Units, subcutaneous, Q4H levothyroxine, 50 mcg, oral, Daily metoclopramide, 5 mg, intravenous, Q12H NIFEdipine XL, 60 mg, oral, Q24H DALIA sodium chloride, 10 mL, intravenous, Q96H sodium chloride, 10 mL, intravenous, Q96H sodium citrate, 1.6 mL, intravenous, Q96H sodium citrate, 1.6 mL, intravenous, Q96H sodium citrate, 1.7 mL, intravenous, Q96H sodium citrate, 1.7 mL, intravenous, Q96H sodium chloride 0.9 %, 3 mL/hr, Last Rate: 3 mL/hr (05/12/241917) PHYSICAL EXAM: Blood pressure 130/75, pulse 101, temperature 36.4 C (97.5 F), temperature source Oral, resp. rate 16, height 175.3 cm (5' 9 ), weight 64.1 kg (141 lb 5 oz), SpO2 98%. Temp: [36.4 C (97.5 F)-37.4 C (99.3 F)] 36.4 C (97.5 F) Pulse: [75-101] 101 Resp: [15-20] 16 BP: (120-157)/(67-86) 130/75 SpO2: [95 %-99 %] 98 % O2 Device: None (Room air) General appearance: alert in no apparent distress. HEENT: no JVD, no carotid bruits, no lymphadenopathy. Cardiovascular: normal S1-S2 Respiratory: clear to auscultation bilaterally Gastrointestinal: soft, no tenderness, no guarding, positive bowel sounds Musculoskeletal: no edema Skin : No Rash. Neuro: AAOX3 , grossly intact. LABORATORY EVALUATION: Results from last 7 days Lab Units 05/15/24 0630 05/14/24 0314 05/13/24 2138 05/13/24 1607 05/13/24 0247 05/12/24 0815 05/12/24 0321 05/11/24 0210 SODIUM mmol/L 137 138 -- -- 136 -- 137 134 POTASSIUM mmol/L 4.4 4.1 3.8 3.6 3.7 < > 3.8 4.1 CHLORIDE mmol/L 102 103 -- -- 100 -- 103 101 CO2 mmol/L 24 23 -- -- 26 -- 24 22 BUN mg/dL 36* 25 -- -- 20 -- 33* 28* CREATININE mg/dL 2.86* 2.69* -- -- 2.46* -- 3.39* 3.04* CALCIUM mg/dL 8.7 8.5 -- -- 8.9 -- 8.4* 8.8 MAGNESIUM mg/dL 2.2 2.2 -- -- 2.2 -- 2.2 2.1 PHOSPHORUS mg/dL 4.0 3.7 -- 4.0 2.1* -- 2.7 3.8 < > = values in this interval not displayed. Results from last 7 days Lab Units 05/15/24 0630 05/14/24 0314 05/13/24 0247 05/12/24 0321 05/11/24 0210 WBC X10E9/L 8.3 8.0 9.2 8.5 9.2 HEMOGLOBIN g/dL 10.3* 10.2* 10.7* 9.7* 9.8* HEMATOCRIT % 29.5* 29.0* 30.4* 27.3* 27.9* PLATELETS X10E9/L 228 200 192 148* 155 Results from last 7 days Lab Units 05/15/24 0630 05/14/24 0314 05/13/24 0247 05/12/24 0321 05/11/24 0210 TOTAL PROTEIN g/dL 6.0 5.9* 6.1 5.5* 5.6* ALBUMIN g/dL 3.6 3.6 3.8 3.5 3.7 AST U/L 13 16 22 33 73* ALT U/L 30 40 59* 84* 153* IMPRESSION: End Stage Renal Disease on hemodialysis every Tuesday and Tuesday. Pancreatic adenocarcinoma status post Whipple procedure on 05/09/2024 Anemia of chronic kidney disease with hemoglobin is currently at goal. Hypertension blood pressure is currently under good control. Bone and minerals: Calcium and phosphorus are in reasonable range Type 2 diabetes mellitus: Management per primary service Plan : Hemodialysis today per schedule No GLEN at this point given malignancy and hemoglobin is already at goal. Check iron panel, B12 and folate Discharge planning is at the discretion of the primary service. No barriers to discharge from renal perspective Demond Garcia M.D. [facility] Thank you for your consultation and allowing us to participate in the care of Zev Crystal and please do not hesitate to call us with any questions at: Office: [phone] Office Answering Service: [phone] Please feel free to contact me through v[employer] Secure chat during the daytime hours, if no response after 5 minutes then call the answering service. This note was created with the assistance of a speech-recognition program. Although the intention is to generate a document that actually reflects the content of the visit, no guarantees can be provided that every mistake has been identified and corrected by editing. Images from the original note were not included. HEPATOBILIARY SURGERY PROGRESS NOTE SUBJECTIVE: Patient seen and examined at bedside, no acute events overnight. Transferred out of ICU yesterday. He reports that he has not really feeling very hungry and is having abdominal pain. He wonders if the medications he is on his causing his abdominal pain. VITALS: Vitals: 05/15/24 0417 BP: 152/77 Pulse: 96 Resp: 15 Temp: 37.4 C (99.3 F) SpO2: 95% I/O last 3 completed shifts: In: 639.1 [P.O.:540; IV Piggyback:99.1] Out: 780 [Urine:200; Drains:580] No intake/output data recorded. Physical Exam Constitutional: Appearance: He is not ill-appearing. HENT: Nose: Nose normal. Mouth/Throat: Mouth: Mucous membranes are moist. Eyes: Extraocular Movements: Extraocular movements intact. Cardiovascular: Rate and Rhythm: Normal rate. Pulses: Normal pulses. Pulmonary: Effort: Pulmonary effort is normal. No respiratory distress. Comments: Room air Abdominal: General: Abdomen is flat. There is distension. Palpations: Abdomen is soft. Tenderness: There is abdominal tenderness (mild). There is no guarding. Comments: FARHAT drain with serosanguineous output Musculoskeletal: General: Normal range of motion. Cervical back: Normal range of motion. Skin: General: Skin is warm. Comments: Midline incision clean dry and intact with connie in place Neurological: General: No focal deficit present. Mental Status: He is alert and oriented to person, place, and time. LABS: Results from last 7 days Lab Units 05/15/24 0630 05/14/24 0314 05/13/24 0247 05/12/24 0321 05/11/24 0210 WBC X10E9/L 8.3 8.0 9.2 8.5 9.2 HEMOGLOBIN g/dL 10.3* 10.2* 10.7* 9.7* 9.8* HEMATOCRIT % 29.5* 29.0* 30.4* 27.3* 27.9* PLATELETS X10E9/L 228 200 192 148* 155 Results from last 7 days Lab Units 05/15/24 0420 05/15/24 0004 05/14/24 2046 05/14/24 1608 05/14/24 1212 05/14/24 0551 05/14/24 0314 05/13/24 2317 05/13/24 2138 05/13/24 1825 05/13/24 1607 05/13/24 0336 05/13/24 0247 05/12/24 1223 05/12/24 0815 05/12/24 0344 05/12/24 0321 05/11/24 0440 05/11/24 0210 05/10/24 0321 05/10/24 0210 POTASSIUM mmol/L -- -- -- -- -- -- 4.1 -- 3.8 -- 3.6 -- 3.7 -- 3.9 -- 3.8 -- 4.1 < > 6.2* CO2 mmol/L -- -- -- -- -- -- 23 -- -- -- -- -- 26 -- -- -- 24 -- 22 -- 20* BUN mg/dL -- -- -- -- -- -- 25 -- -- -- -- -- 20 -- -- -- 33* -- 28* -- 45* CREATININE mg/dL -- -- -- -- -- -- 2.69* -- -- -- -- -- 2.46* -- -- -- 3.39* -- 3.04* -- 3.77* BEDSIDE GLUCOSE mg/dL 142* 100* 197* 127* 167* < > -- < > -- < > -- < > -- < > -- < > -- < > -- < > -- GLUCOSE mg/dL -- -- -- -- -- -- 161* -- -- -- -- -- 203* -- -- -- 160* -- 181* -- 169* < > = values in this interval not displayed. Results from last 7 days Lab Units 05/09/24 1845 05/09/24 0923 PORTABLE INR -- 1.1 INR 1.1 -- PROTIME sec 13.1 -- MEDICATIONS: carvediloL, 25 mg, oral, BID docusate sodium, 100 mg, oral, BID heparin (porcine), 5,000 Units, subcutaneous, Q8H DALIA insulin lispro, 2-16 Units, subcutaneous, Q4H levothyroxine, 50 mcg, oral, Daily metoclopramide, 5 mg, intravenous, Q12H NIFEdipine XL, 60 mg, oral, Q24H DALIA sodium chloride, 10 mL, intravenous, Q96H sodium chloride, 10 mL, intravenous, Q96H sodium citrate, 1.6 mL, intravenous, Q96H sodium citrate, 1.6 mL, intravenous, Q96H sodium citrate, 1.7 mL, intravenous, Q96H sodium citrate, 1.7 mL, intravenous, Q96H sodium chloride 0.9 %, 3 mL/hr, Last Rate: 3 mL/hr (05/12/241917) IMAGING: No results found. ASSESSMENT: The patient is a 68 y.o. male with a pertinent medical history of end-stage renal disease on hemodialysis, type 2 diabetes, hypertension, hypothyroidism, hyperlipidemia, peptic ulcer disease, open partial nephrectomy for renal cell carcinoma who is now 6 Days Post-Op from to a standard Whipple with falciform ligament flap for pancreatic adenocarcinoma (identified on frozen section with positive proximal margin). Surgical pathology pending. Calorie counts pending. PLAN: Diet: Adult diet Regular Texture Adult nutrition supplements Follow-up calorie counts Critical care on board, appreciate recommendations Nephrology on board, appreciate recommendations Pain and nausea control p.r.n. Continue DVT prophylaxis. Cristian Hunter MD General Surgery Resident, PGY-2 05/15/24 Cosigned by Kylee Cao MD at 05/15/2024 10:45 AM EDT Associated attestation - Kylee Cao MD - 05/15/2024 10:45 AM EDT Attending Attestation: Patient was down in dialysis at time of rounds. I participated and was physically present during the critical/kurtz portions of the service. I was directly involved in the management and treatment plan of the patient. I reviewed the resident's note. Additional Notes/Findings: Agree with above. Patient receiving dialysis. OK to transfer to floor. Kylee Cao MD Surgical Oncologist Hepatobiliary, Pancreas & Endocrine Surgery Images from the original note were not included. FOLLOW-UP: Post-Intensive Care Rounding Note Patient: Zev Crystal : 1955 Age: 68 y.o. Length of Stay: 5 days Admission Diagnosis: Pancreatic neoplasm [D49.0] Hyperkalemia [E87.5] Reviewing patient due to his recent transfer out from Intensive Care. Recorded vital signs are stable and the patient is not noted to be in any apparent distress. Telemetry and monitoring noted. Staff may call with any issues or concerns regarding his clinical presentation or stability. Thank you, Shivani Jarquin RN Rapid Response: [facility] Images from the original note were not included. Nephrology Daily Progress Note The events of last night reviewed, chart and all new entries , new tests reviewed Impression/Plan: End-stage renal disease on hemodialysis Tuesday Pancreatic adeno carcinoma status post Whipple on 05/09/2024 Hypertension, blood pressure medications were adjusted Diabetes mellitus type 2, managed by primary service Interval history, uneventful night, patient denies chest pain, no SOB, , no abdominal pain, no nausea, no vomiting, Vital signs in last 24 hours: Vitals: 05/14/24 0915 05/14/24 0930 05/14/24 1000 05/14/24 1100 BP: 146/78 137/70 Pulse: 91 85 85 86 Resp: 16 18 Temp: TempSrc: SpO2: 97% 98% 100% 98% Weight: Height: Intake/Output: Intake/Output Summary (Last 24 hours) at 05/14/2024 1154 Last data filed at 05/14/2024 0600 Gross per 24 hour Intake -- Output 180 ml Net -180 ml Physical Exam: General appearance: alert in no acute distress. Head: Normocephalic, without obvious abnormality, atraumatic Eyes: Conjunctivae unremarkable, pupils reactive Neck: No JVD, no carotid bruit, neck supple, trachea midline cardiovascular: normal S1-S2, No gallops. Respiratory: clear to auscultation B/L, Gastrointestinal: no tenderness, no guarding, no hepatosplenomegaly could be appreciated. Muscloskeletal: No LE edema, no active arthritis, normal range of movement Neurology: Moves all extremities, alert oriented Skin: no rash, no petechia Psychiatric, no anxiety, no suicidal ideas Lymphatic: no lymphadenopathy, no lymphedema Inpatient Meds: carvediloL, 25 mg, oral, BID docusate sodium, 100 mg, oral, BID heparin (porcine), 5,000 Units, subcutaneous, Q8H DALIA insulin lispro, 2-16 Units, subcutaneous, Q4H levothyroxine, 50 mcg, oral, Daily metoclopramide, 5 mg, intravenous, Q12H NIFEdipine XL, 30 mg, oral, Q12H DALIA sodium chloride, 10 mL, intravenous, Q96H sodium chloride, 10 mL, intravenous, Q96H sodium citrate, 1.6 mL, intravenous, Q96H sodium citrate, 1.6 mL, intravenous, Q96H sodium citrate, 1.7 mL, intravenous, Q96H sodium citrate, 1.7 mL, intravenous, Q96H sodium chloride 0.9 %, 3 mL/hr, Last Rate: 3 mL/hr (05/12/241917) Nutrition: Dietary Orders (From admission, onward) Start Ordered 05/14/24 08 Adult nutrition supplements Continuous Question Answer Comment Diet Type or Consistency: Regular Texture Select Supplement: Standard House Supplement 8 oz Supplement Frequency: TID 05/14/24 0805/14/24 08 Adult diet Regular Texture Diet effective now Question: Diet Type: Answer: Regular Texture 05/14/24 0811 Labs: Results from last 7 days Lab Units 05/14/2431305/13/24 2138 05/13/24 1607 05/13/2424605/12/24 0815 05/12/2432005/11/2420905/10/2432105/10/24209 SODIUM mmol/L 138 -- -- 136 -- 137 134 -- 138 POTASSIUM mmol/L 4.1 3.8 3.6 3.7 3.9 3.8 4.1 < > 6.2* CHLORIDE mmol/L 103 -- -- 100 -- 103 101 -- 108 CO2 mmol/L 23 -- -- 26 -- 24 22 -- 20* BUN mg/dL 25 -- -- 20 -- 33* 28* -- 45* CREATININE mg/dL 2.69* -- -- 2.46* -- 3.39* 3.04* -- 3.77* CALCIUM mg/dL 8.5 -- -- 8.9 -- 8.4* 8.8 -- 8.6 MAGNESIUM mg/dL 2.2 -- -- 2.2 -- 2.2 2.1 -- 2.5 PHOSPHORUS mg/dL 3.7 -- 4.0 2.1* -- 2.7 3.8 -- 4.3 < > = values in this interval not displayed. Results from last 7 days Lab Units 05/14/2431305/13/2424605/12/24320 WBC X10E9/L 8.0 9.2 8.5 HEMOGLOBIN g/dL 10.2* 10.7* 9.7* HEMATOCRIT % 29.0* 30.4* 27.3* PLATELETS X10E9/L 200 192 148* Results from last 7 days Lab Units 05/14/2431305/13/2424605/12/24320 MAGNESIUM mg/dL 2.2 2.2 2.2 Lab Results Component Value Date CALCIUM 8.5 05/14/2024 Lab Results Component Value Date IRON 35 (L) 05/10/2024 TIBC 244 (L) 05/10/2024 FERRITIN 1,159 (H) 05/10/2024 Problem list End-stage renal disease on hemodialysis Tuesday dialyzing at [facility]. End-stage renal disease secondary to postoperative acute tubular necrosis along with loss of renal mass with partial nephrectomy of the right solitary kidney, left kidney is atrophic. Initiated on hemodialysis 05/23/2023. Dialyzing via right upper extremity AV fistula. Previous renal workup June 2023 showed SPEP pending, PIA pending, Anca panel pending, rheumatoid factor less than 10, C3 and C4 were unremarkable, hepatitis panel was nonreactive. Urinalysis from June 2023 showed 300 mg/dL protein with 118 RBCs and 20 wbc's per high-power field with a protein to creatinine ratio of 4.7 grams/gram. 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 Lombardi Dyslipidemia Cholecystectomy Coronary artery disease Hypothyroidism Peptic ulcer Anxiety Strabismus surgery Vasectomy SOBEIDA SELF MD [facility] ANY QUESTIONS FEEL FREE TO CALL: 1. OFFICE [phone] 2. ANSWERING SERVICE:[phone] YOU CAN CONTACT ME THROUGH [employer] DURING THE DAYTIME HOURS, IF NO RESPONSE AFTER 5 MINUTES CALL THE ANSWERING SERVICE This note was created with the assistance of a speech-recognition program. Although the intention is to generate a document that actually reflects the content of the visit, no guarantees can be provided that every mistake has been identified and corrected by editing. Images from the original note were not included. HEPATOBILIARY SURGERY PROGRESS NOTE SUBJECTIVE: Patient seen and examined at bedside, no acute events overnight. Is doing better in terms of diet. Having flatus. VITALS: Vitals: 05/14/24 0600 BP: 142/63 Pulse: 89 Resp: 17 Temp: SpO2: 100% I/O last 3 completed shifts: In: 170.5 [I.V.:110.5; NG/GT:60] Out: 845 [Urine:375; Drains:470] No intake/output data recorded. Physical Exam Constitutional: Appearance: He is not ill-appearing. HENT: Nose: Nose normal. Comments: Cortrak removed Mouth/Throat: Mouth: Mucous membranes are moist. Eyes: Extraocular Movements: Extraocular movements intact. Cardiovascular: Rate and Rhythm: Normal rate. Pulses: Normal pulses. Pulmonary: Effort: Pulmonary effort is normal. No respiratory distress. Comments: Room air Abdominal: General: Abdomen is flat. There is distension. Palpations: Abdomen is soft. Tenderness: There is abdominal tenderness (mild). There is no guarding. Comments: FARHAT drain with serosanguineous output Musculoskeletal: General: Normal range of motion. Cervical back: Normal range of motion. Skin: General: Skin is warm. Comments: Midline incision with a Prevena system in place, functioning appropriately Neurological: General: No focal deficit present. Mental Status: He is alert and oriented to person, place, and time. LABS: Results from last 7 days Lab Units 05/14/24 0314 05/13/24 0247 05/12/24 0321 05/11/24 0210 05/10/24 1105 05/10/24 0210 WBC X10E9/L 8.0 9.2 8.5 9.2 -- 11.8* HEMOGLOBIN g/dL 10.2* 10.7* 9.7* 9.8* 10.5* 10.8* HEMATOCRIT % 29.0* 30.4* 27.3* 27.9* 30.5* 31.6* PLATELETS X10E9/L 200 192 148* 155 -- 171 Results from last 7 days Lab Units 05/14/24 0551 05/14/24 0314 05/13/24 2317 05/13/24 2138 05/13/24 2133 05/13/24 1825 05/13/24 1607 05/13/24 0336 05/13/24 0247 05/12/24 1223 05/12/24 0815 05/12/24 0344 05/12/24 0321 05/11/24 0440 05/11/24 0210 05/10/24 0321 05/10/24 0210 POTASSIUM mmol/L -- 4.1 -- 3.8 -- -- 3.6 -- 3.7 -- 3.9 -- 3.8 -- 4.1 < > 6.2* CO2 mmol/L -- 23 -- -- -- -- -- -- 26 -- -- -- 24 -- 22 -- 20* BUN mg/dL -- 25 -- -- -- -- -- -- 20 -- -- -- 33* -- 28* -- 45* CREATININE mg/dL -- 2.69* -- -- -- -- -- -- 2.46* -- -- -- 3.39* -- 3.04* -- 3.77* BEDSIDE GLUCOSE mg/dL 176* -- 126* -- 114* 192* -- < > -- < > -- < > -- < > -- < > -- GLUCOSE mg/dL -- 161* -- -- -- -- -- -- 203* -- -- -- 160* -- 181* -- 169* < > = values in this interval not displayed. Results from last 7 days Lab Units 05/09/24 18405/09/24 0923 PORTABLE INR -- 1.1 INR 1.1 -- PROTIME sec 13.1 -- MEDICATIONS: carvediloL, 25 mg, oral, BID docusate sodium, 100 mg, oral, BID famotidine, 20 mg, intravenous, Q48H heparin (porcine), 5,000 Units, subcutaneous, Q8H DALIA insulin lispro, 2-16 Units, subcutaneous, Q4H metoclopramide, 5 mg, intravenous, Q12H NIFEdipine XL, 30 mg, oral, Q12H DALIA sodium chloride, 10 mL, intravenous, Q96H sodium chloride, 10 mL, intravenous, Q96H sodium citrate, 1.6 mL, intravenous, Q96H sodium citrate, 1.7 mL, intravenous, Q96H sodium chloride 0.9 %, 3 mL/hr, Last Rate: 3 mL/hr (05/12/241917) IMAGING: No results found. ASSESSMENT: The patient is a 68 y.o. male with a pertinent medical history of end-stage renal disease on hemodialysis, type 2 diabetes, hypertension, hypothyroidism, hyperlipidemia, peptic ulcer disease, open partial nephrectomy for renal cell carcinoma who is now 5 Days Post-Op from to a standard Whipple with falciform ligament flap for pancreatic adenocarcinoma (identified on frozen section with positive proximal margin). Surgical pathology pending. Calorie counts counts. PLAN: Diet: Adult diet Clear Liquid; No carbonated beverages Adult nutrition supplements, evaluate for diet advancement and continue calorie counts Critical care on board, appreciate recommendations. Okay for transfer out of surgical ICU. Nephrology on board, appreciate recommendations. Patient receiving regularly scheduled hemodialysis Tuesday, , Tuesday. Coreg and Procardia for hypertension. Physical therapy and occupational therapy - current recommendation for home when medically fit. Pain and nausea control p.r.n. Remove prevena wound vac today 05/14. Continue DVT prophylaxis. Cristian Hunter MD General Surgery Resident, PGY-2 05/14/24 Cosigned by Kylee Cao MD at 05/14/2024 11:33 AM EDT Associated attestation - Kylee Cao MD - 05/14/2024 11:33 AM EDT Attending Attestation: I saw the patient. I performed the critical/kurtz portions of the service. I was directly involved in the management and treatment plan of the patient. I reviewed the resident's note. Additional Notes/Findings: Agree with above. Passing flatus and tolerating clears. We will advance to regular diet and see if his p.o. intake is adequate enough to avoid any enteral feeds. His Cortrak had been disolodged accidentally over the weekend. yKlee Cao MD Surgical Oncologist Hepatobiliary, Pancreas & Endocrine Surgery [facility] Academic Critical Care Progress Note Name: Zev Crystal Date: 05/14/2024 Length of Stay: 5 day(s) Chief Complaint: No chief complaint on file. History of Present Illness: Zev Crystal is a 68 y.o. 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 Last MRCP demonstrated mild diffuse pancreatitis with edematous change, marked dilation of pancreatic duct with some narrowing in the pancreatic neck region for which he underwent an EUS on 04/04/2024 which was highly suspicious for main duct IPMN, cytology was difficult to interpret due to gut contamination thus it was sent to [facility] where an independent pathologist agreed as well that it was gut contamination. Due to the patient's highly suspicious imaging findings and previous history of cancer, the decision was made to offer a possible central pancreatectomy versus Whipple versus distal pancreatectomy with splenectomy. The patient had an exploratory laparotomy with intraoperative ultrasound of the pancreas, due to the proximal neck location of the tumor a central pancreatectomy was pursued. Frozen section revealed a positive proximal margin thus it was transitioned to a standard Whipple. The patient was extubated in the OR and sent to the SICU in hemodynamically stable condition. PMH ESRD on HD, T2DM, HTN, hypothyroidism, HLD, PUD, 42 PY former smoker PSH open partial nephrectomy for R RCC, cholecystectomy, LUE AVF Home medication: Lipitor 40 mg, Bumex 1 mg, Coreg 25 mg b.i.d., glimepiride, levothyroxine, sevelamer, alprazolam, metformin Interval history: 05/14/24 Cortrak came out accidentally. Patient did not agree with a replacement Cortrak to be put in place. denies nausea, vomiting, fevers, and chills. Pain is completely under control. Nursing reports no acute events overnight and based on their assessment swallowing has been improved. Patient passing gas and but having no bowel movements yet. Nursing reports that patient refused heparin administration. No other acute events overnight. Past Medical History: Diagnosis Date AAA (abdominal aortic aneurysm) [place] monitoring Anemia received iron infusions Anxiety xanax prn Arthritis CKD (chronic kidney disease) stage 4, GFR 15-29 ml/min ([facility] 06/2023 Coronary artery disease patient states 1 artery occuluded, no stents DDD (degenerative disc disease), lumbar Dental disease missing tooth front Diabetes mellitus type 2, controlled ([facility] Dialysis patient ([facility]) Sat- Renal Atkinson Essential hypertension 02/23/2018 HL (hearing loss) hearing aid lt ear, deaf right ear Hypothyroidism Mixed hyperlipidemia 02/23/2018 Nicotine dependence 02/23/2018 Pancreatic neoplasm Pancreatitis Peptic ulceration when he was younger Renal cell carcinoma (CMS-HCC) right, left kidney atrophied Skin cancer BCC/SCC Varicella 03/2024 shingles Visual impairment glasses prn Past Surgical History: Procedure Laterality Date BIOPSY MASS 04/01/2023 right kidney BRACHIAL CEPHALIC ARTERIOVENOUS FISTULA Left 01/11/2024 Performed by Zac Lombardi MD at [facility] CATHETERIZATION 2004 2007 [facility] CHOLECYSTECTOMY 2005 COLONOSCOPY 2012 ENDOSCOPIC ULTRASOUND UPPER N/A 04/04/2024 Performed by Polly Reeder MD at [facility] ESOPHAGOGASTRODUODENOSCOPY DIAGNOSTIC N/A 04/04/2024 Performed by Polly Reeder MD at [facility] NASAL SINUS SURGERY 2003 cleaned out NEPHRECTOMY PARTIAL OPEN(BIOBANK) Right 07/21/2023 Performed by Mary Telles MD at [facility] SKIN BIOPSY Several times STRABISMUS SURGERY 1961 VASECTOMY WHIPPLE WITH INTRA OPERATIVE ULTRASOUND- BIOBANK N/A 05/09/2024 Performed by Jeffrey Mcfadden MD at [facility] Medications Prior to Admission Medication Sig Dispense Refill Last Dose/Taking ALPRAZolam (XANAX) 0.25 mg tablet Take 1 tablet (0.25 mg total) by mouth 3 (three) times a day as needed for anxiety. Other - as prescribed atorvastatin (LIPITOR) 40 mg tablet Take 1 tablet (40 mg total) by mouth nightly Indications: high cholesterol. 05/08/2024 bumetanide (BUMEX) 1 mg tablet Take 3 tablets (3 mg total) by mouth daily Indications: edema with defective kidney function. 05/08/2024 carvedilol (COREG) 25 mg tablet Take 1 tablet (25 mg total) by mouth in the morning and 1 tablet (25 mg total) in the evening. Take with meals. Indications: high blood pressure. 05/09/2024 Morning glimepiride (AMARYL) 2 mg tablet Take 1 tablet (2 mg total) by mouth every morning before breakfast Indications: type 2 diabetes mellitus. 05/08/2024 levothyroxine (SYNTHROID, LEVOTHROID) 50 MCG tablet Take 1 tablet (50 mcg total) by mouth in the morning. Indications: a condition with low thyroid hormone levels. 05/09/2024 Morning sevelamer (RENVELA) 800 mg tablet Take 1 tablet (800 mg total) by mouth in the morning and 1 tablet (800 mg total) at noon and 1 tablet (800 mg total) in the evening. Take with meals. Indications: renal osteodystrophy with hyperphosphatemia. 05/08/2024 metFORMIN (GLUCOPHAGE) 500 mg tablet Take 1 tablet (500 mg total) by mouth as needed (patient states he only occasionally takes this) Indications: prevention of type 2 diabetes mellitus. (Patient not taking: Reported on 05/09/2024) More than a month carvediloL, 25 mg, oral, BID docusate sodium, 100 mg, oral, BID famotidine, 20 mg, intravenous, Q48H heparin (porcine), 5,000 Units, subcutaneous, Q8H DALIA insulin lispro, 2-16 Units, subcutaneous, Q4H metoclopramide, 5 mg, intravenous, Q12H NIFEdipine XL, 30 mg, oral, Q12H DALIA sodium chloride, 10 mL, intravenous, Q96H sodium chloride, 10 mL, intravenous, Q96H sodium citrate, 1.6 mL, intravenous, Q96H sodium citrate, 1.7 mL, intravenous, Q96H sodium chloride 0.9 %, 3 mL/hr, Last Rate: 3 mL/hr (05/12/241917) No Known Allergies Family History Problem Relation Age of Onset Lung cancer Mother Brain cancer Mother Heart disease Father Diabetes Sister Diabetes Brother Stroke Paternal Grandmother Heart attack Paternal Grandfather Early Paternal Grandfather 40 Diabetes Son Cancer Half Brother thyroid and pancreatic Anesthesia problems Neg Hx Bleeding Disorder Neg Hx Clotting disorder Neg Hx Prostate cancer Neg Hx Colon cancer Neg Hx Kidney cancer Neg Hx Thyroid cancer Neg Hx Social History Socioeconomic History Marital status: Tobacco Use Smoking status: Every Day Average packs/day: 1 pack/day for 41.6 years (41.6 ttl pk-yrs) Types: Cigarettes Start date: 07/25/1982 Passive exposure: Current Smokeless tobacco: Never Tobacco comments: Currently smoking 1/2ppd. Vaping Use Vaping status: Never Used Substance and Sexual Activity Alcohol use: No Drug use: Not Currently Types: Marijuana Sexual activity: Defer Other Topics Concern Caffeine Use Yes Social History Narrative Lives with . Worked at a [employer]. Has a dog in the home. Social Drivers of Health Food Insecurity: Patient Unable To Answer (05/09/2024) Hunger Screening Food Insecurity - Worry: Patient unable to answer Food Insecurity - Inability: Patient unable to answer Transportation Needs: Patient Unable To Answer (05/09/2024) PRAPARE - Transportation Lack of Transportation (Medical): Patient unable to answer Lack of Transportation (Non-Medical): Patient unable to answer Interpersonal Safety: Patient Unable To Answer (05/09/2024) Humiliation, Afraid, Rape, and Kick questionnaire Fear of Current or Ex-Partner: Patient unable to answer Emotionally Abused: Patient unable to answer Physically Abused: Patient unable to answer Sexually Abused: Patient unable to answer Housing Instability: Patient Unable To Answer (05/09/2024) Housing Instability Housing Instability: Patient unable to answer Temp: [36.7 C (98 F)-36.8 C (98.3 F)] 36.7 C (98.1 F) Pulse: [72-102] 89 Resp: [11-24] 17 BP: (119-172)/(47-96) 142/63 SpO2: [92 %-100 %] 100 % O2 Device: None (Room air) O2 Device: None (Room air) Physical Exam General: Awake, alert and oriented x3, in pain but no acute distress HENT: Head atraumatic, normocephalic, external ears and nose are normal Eyes: Conjunctivae clear, non-icteric, EOMI Pulmonary: Regular, non-labored respirations, without use of accessory muscles, no stridor, saturating well on nasal cannula Cardiovascular: Normal rate and regular rhythm, radial pulses 2+, non-edematous x4 extremities, hypertensive Abdomen: Not distended, midline incision with wound VAC place, drain in place on the right abdomen, mildly tender Musculoskeletal: Range of motion grossly normal x4 extremities, no deformity x4 extremities Neurological: CN 2-12 grossly intact, sensation grossly intact Skin: Warm, dry, without jaundice Ventilator Not at this time, he is on room air Results from last 3 days Lab Units 05/14/24 0314 05/13/24 2138 05/13/24 1607 05/13/24 0247 05/12/24 0815 05/12/24 0321 BUN mg/dL 25 -- -- 20 -- 33* CREATININE mg/dL 2.69* -- -- 2.46* -- 3.39* POTASSIUM mmol/L 4.1 3.8 3.6 3.7 3.9 3.8 CO2 mmol/L 23 -- -- 26 -- 24 CHLORIDE mmol/L 103 -- -- 100 -- 103 MAGNESIUM mg/dL 2.2 -- -- 2.2 -- 2.2 AST U/L 16 -- -- 22 -- 33 ALT U/L 40 -- -- 59* -- 84* ALK PHOS U/L 76 -- -- 82 -- 78 No data from last 3 days. Results from last 3 days Lab Units 05/14/244 05/13/24 0247 05/12/24 0321 WBC X10E9/L 8.0 9.2 8.5 HEMOGLOBIN g/dL 10.2* 10.7* 9.7* HEMATOCRIT % 29.0* 30.4* 27.3* PLATELETS X10E9/L 200 192 148* MCV fL 93 93 94 MCH pg 32.6 32.8 33.2 MCHC g/dL 35.1 35.2 35.5 RDW % 13.6 13.2 13.1 EOS ABS AUTO X10E9/L 0.6* 0.5* 0.4 Microbiology Results No results found for the last 168 hours. Glucose Results from last 7 days Lab Units 05/14/24 0551 05/14/244 05/13/24 2317 05/13/24 2133 05/13/24 1825 05/13/24 1212 05/13/24 0834 05/13/24 0336 05/13/24 0247 05/12/24 2336 05/12/24200005/12/24 1653 BEDSIDE GLUCOSE mg/dL 176* -- 126* 114* 192* 159* 133* 187* -- 191* 154* 176* GLUCOSE mg/dL -- 161* -- -- -- -- -- -- 203* -- -- -- I/O last 3 completed shifts: In: 170.5 [I.V.:110.5; NG/GT:60] Out: 845 [Urine:375; Drains:470] carvediloL, 25 mg, oral, BID docusate sodium, 100 mg, oral, BID famotidine, 20 mg, intravenous, Q48H heparin (porcine), 5,000 Units, subcutaneous, Q8H DALIA insulin lispro, 2-16 Units, subcutaneous, Q4H metoclopramide, 5 mg, intravenous, Q12H NIFEdipine XL, 30 mg, oral, Q12H DALIA sodium chloride, 10 mL, intravenous, Q96H sodium chloride, 10 mL, intravenous, Q96H sodium citrate, 1.6 mL, intravenous, Q96H sodium citrate, 1.7 mL, intravenous, Q96H sodium chloride 0.9 %, 3 mL/hr, Last Rate: 3 mL/hr (05/12/241917) Microbiology Results No results found for the last 168 hours. Lines/Drains Hemodialysis Catheter Double 07/27/23 Cuffed Right Internal Jugular (Active) Precautions Standard precautions;Hand hygiene;Gloves 05/09/241829 Lumen 1 Red 05/09/241829 Lumen 1 Status Other (Comment) 05/09/241829 Lumen 2 Blue 05/09/241829 Lumen 2 Status Other (Comment) 05/09/241829 HD Status Citrate Locked 05/09/241829 Site Assessment Clean;Dry;Intact 05/09/241829 Site Condition No complications 05/09/241829 Dressing Type Occlusive;Transparent with CHG gel 05/09/241829 Dressing Status Clean;Dry;Intact 05/09/241829 Line Necessity Dialysis 05/09/241829 Line Necessity Reviewed With cc 05/09/241829 Patient tolerance of dressing change Tolerated well 05/09/241829 Dressing Type Occlusive 05/09/241829 Peripheral IV 05/09/24 Posterior;Right Hand (Active) Line Status Saline locked 05/09/241829 Site Assessment Clean;Intact;Dry 05/09/241829 Dressing Type Occlusive;Transparent 05/09/241829 Dressing Status Clean;Dry;Intact 05/09/241829 Peripheral IV 05/09/24 Right Forearm (Active) Line Status Saline locked 05/09/241829 Site Assessment Clean;Dry;Intact 05/09/241829 Dressing Type Occlusive;Transparent 05/09/241829 Dressing Status Clean;Dry;Intact 05/09/241829 Closed/Suction Drain 05/09/24 1 Left RLQ (Active) Drain/Tube Status To bulb suction 05/09/241829 Site Assessment Sutured 05/09/241829 Drain Securement Sutured 05/09/241829 Dressing Type Open to air (none) 05/09/241829 Drainage Appearance Bloody 05/09/241829 Negative Pressure Wound Therapy 05/09/24 Abdomen (Active) Assessed: Compressed 05/09/241829 Cycle Continuous 05/09/241829 Intensity Low 05/09/241829 Dressing Type Other (Comment) 05/09/241829 Dressing Status Clean;Dry;Intact 05/09/241829 Drainage Amount None 05/09/241829 NG/OG Tube 05/09/24 Cortrak Right nostril (Active) Securement Method Securing device (Describe) 04/11/24 0002 Urinary Catheter 05/09/24 Double-lumen (Active) Catheter Status Patent 05/09/241829 Site Assessment Clean 05/09/241829 Collection Container Standard drainage bag/container 05/09/241829 Securement Method Securing device (Describe) 05/09/241829 Reason for Continuing Physician order 05/09/241829 Urine Color Yellow/straw 05/09/241829 Urine Appearance Clear 05/09/241829 Arterial Line 05/09/24 Right Radial (Active) Line Status Pulsatile blood flow 05/09/241829 Line Interventions Zeroed and calibrated;Leveled;Connections checked and tightened;Pressure bag maintained;Armboard;Flushed per protocol;Line pulled back 05/09/242019 Waveform Appropriate;Square wave test performed 05/09/242019 Site Assessment Clean;Dry;Intact 05/09/241829 Dressing Type Occlusive;Transparent 05/09/241829 Dressing Status Clean;Dry;Intact 05/09/241829 Color/Movement/Sensation Capillary refill less than 3 sec 05/09/241829 Patient Tolerance of Line Care Tolerated well 05/09/241829 Line Necessity Invasive hemodynamic monitoring 05/09/241829 Line Necessity Reviewed With cc 05/09/241829 ACTIVE PROBLEM LIST: 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 male who was found to have pancreatic neck adenocarcinoma and underwent open central pancreatectomy converted to Whipple procedure on 05/09/2024. His course of recovery in the ICU has been stable other than hyperkalemia corrected with medical management and hemodialysis. Nephrology is following the patient and managing he has ESRD/hemodialysis, planning to do next hemodialysis next Tuesday per nephrology. His recovery has been uneventful, awaiting transfer out of the unit. 1. Neuro Hospital Meds: Analgesia: Acetaminophen, oxycodone, Dilaudid Other: Home Meds: Alprazolam PMH: Anxiety PSH: 2. Pulmonary Breathing Support: None, breathing room air Settings: SpO2: 95% Continuous pulse oximetry Hospital Meds: Home Meds: PMH: 42 pack year former smoker PSH: Encourage IS use and deep breathing 3. Cardiovascular Hemodynamics: RRR Hypertensive BP 142/69 Pressors: None Goal MAP >65 Continuous cardiac monitoring Cardiology consulted on 05/10/24 for concern of STEMI on EKG.Based on their assessment: EKG reviewed with Dr. Bennett. EKG is not a STEMI and is c/w LVH, similar to prior EKG 04/26/24. HS troponin only 38. No further recommendations . Hospital Meds: Labetalol PRN, Hydralazine PRN, Carvedilol 25mg BD, nifedipine Nephrology recommended the following: Continue Coreg Increase Procardia XL 30 b.i.d. Home Meds: Lipitor 40 mg, Coreg 25 mg b.i.d., aspirin PMH: 4.3 cm asymptomatic AAA, HTN, HLD, CAD, hypertrophic cardiomyopathy (echo 2022 LVEF 55-60%, suggestive of hypertrophic cardiomyopathy) PSH: Cardiac catheterization in 2007 with reported 100% occlusion of an unnamed vessel Code Status: Full 4. GI Pancreatic neck adenocarcinoma status post open central pancreatectomy converted to Whipple procedure 05/09/2024 RLQ drain with 270 cc output Diet: Clear liquids PO, Cortrak tube accidentally came out; patient refused to have it replaced; will defer tube feed management to primary team Advancing tube feeds if he gets the tube back Bowel Function: Passing gas but no bowel movements yet Results from last 3 days Lab Units 05/14/24 0314 05/13/24 0247 05/12/24 0321 AST U/L 16 22 33 ALT U/L 40 59* 84* Hospital Meds: Pepcid Zofran Reglan Home Meds: PMH: Peptic ulcer disease PSH: Cholecystectomy 5. Renal/Genitourinary ESRD on hemodialysis, nephrology following and managing - 1100 off in HD 05/12, next hemodialysis on Tuesday Electrolytes: Results from last 3 days Lab Units 05/14/2431305/13/24 2138 05/13/24 1607 05/13/24 0247 05/12/24 0815 05/12/24 0321 SODIUM mmol/L 138 -- -- 136 -- 137 CHLORIDE mmol/L 103 -- -- 100 -- 103 POTASSIUM mmol/L 4.1 3.8 3.6 3.7 < > 3.8 CO2 mmol/L 23 -- -- 26 -- 24 BUN mg/dL 25 -- -- 20 -- 33* CREATININE mg/dL 2.69* -- -- 2.46* -- 3.39* MAGNESIUM mg/dL 2.2 -- -- 2.2 -- 2.2 PHOSPHORUS mg/dL 3.7 -- 4.0 2.1* -- 2.7 < > = values in this interval not displayed. Will replace electrolytes PRN per ICU protocol Fluid Balance: IV Fluids: - UOP/24 H: 200+ 2 unmeasured voids Net Fluid/24H:-470 Intake/Output Summary (Last 24 hours) at 05/14/2024721 Last data filed at 05/14/2024 0600 Gross per 24 hour Intake -- Output 470 ml Net -470 ml Net Fluid Since Admission: Net IO Since Admission: 479.85 mL [05/14/24721] Strict monitoring of Ins and Outs Hospital Meds: Coreg, hydralazine, labetalol, nifedipine Home Meds: Sevelamer, Bumex PMH: ESRD on HD, right renal cell carcinoma PSH: Left upper extremity brachiocephalic AV fistula, open partial right nephrectomy 6. Heme Labs: Results from last 3 days Lab Units 05/14/2431305/13/247 05/12/24 0321 HEMOGLOBIN g/dL 10.2* 10.7* 9.7* PLATELETS X10E9/L 200 192 148* Type and Screen: A Blood Products Administered: None Will continue to monitor hgb and transfuse PRN 7. ID Tmax/24H: Temp (24hrs), Av.8 C (98.2 F), Min:36.7 C (98 F), Max:36.8 C (98.3 F) Labs: Results from last 3 days Lab Units 05/14/24 0314 05/13/24 0247 05/12/24 0321 WBC X10E9/L 8.0 9.2 8.5 Hospital Meds: Antibiotics: No current antibiotics; Zosyn (05/10 - 05/11) Continue to monitor for signs of infection 8. Endocrine Results from last 3 days Lab Units 05/14/24 0551 05/14/24 0314 05/13/24 2317 BEDSIDE GLUCOSE mg/dL 176* -- 126* GLUCOSE mg/dL -- 161* -- Goal Blood Glucose <180 mg/dL Hospital Meds: Increase Sliding scale insulin from 2-10 units Q 4 > 2-16 Home Meds: Levothyroxine, metformin, glimepiride PMH: Hypothyroidism, type 2 diabetes mellitus PSH: 9. Musculoskeletal PMH: PSH: PT/OT when able 10. Prophylaxis Respiratory: Encourage IS use and deep breathing GI: Pepcid DVT: SCD Cuffs, SQH 11. LDA Hemodialysis Catheter Double 07/27/23 Cuffed Rt Internal Jugular Peripheral IV 05/09/24 Posterior;Right Hand Closed/Suction Drain 05/09/24 1 Left RLQ Negative Pressure Wound Therapy 05/09/24 Abdomen Dispo: Improving, transfer out of SICU Elizabeth Winters MD PGY1 Urology SICU Resident 05/14/2024 Cosigned by Bernardo Man MD at 05/14/2024 11:26 AM EDT Associated attestation - Bernardo Man MD - 05/14/2024 11:26 AM EDT ------ATTENDING NOTE ----- I saw the patient. I participated and was physically present during the critical/kurtz portions of the service. I was directly involved in the management and treatment plan of the patient. I reviewed the resident's note. Additional Notes/Findings: Electronically signed by BERNARDO MAN MD [facility] Robotic Surgery Surgical Critical Care [phone] Images from the original note were not included. HEPATOBILIARY SURGERY PROGRESS NOTE SUBJECTIVE: Patient did have a brief episode of chest pain and shortness of breath yesterday that spontaneously resolved. Did appear to show bibasilar atelectasis, troponin was mildly elevated at 33, unchanged from previous draw. Patient does report that his Cortrak was extricated overnight as well. He states that it was caught in the side of the bed while he was moving around. He was tolerating some sips of clear liquids via p.o. intake. He is passing flatus, but has not had a bowel movement since surgery. He denies any nausea or vomiting. VITALS: Vitals: 05/13/24 0300 BP: Pulse: Resp: Temp: 36.7 C (98 F) SpO2: I/O last 3 completed shifts: In: 1200.5 [I.V.:960.5; NG/GT:240] Out: 1900 [Urine:475; Drains:415; Other:1010] No intake/output data recorded. Physical Exam Constitutional: Appearance: He is not ill-appearing. HENT: Nose: Nose normal. Comments: Cortrak removed Mouth/Throat: Mouth: Mucous membranes are moist. Eyes: Extraocular Movements: Extraocular movements intact. Cardiovascular: Rate and Rhythm: Normal rate. Pulses: Normal pulses. Pulmonary: Effort: Pulmonary effort is normal. No respiratory distress. Comments: Room air Abdominal: General: Abdomen is flat. There is distension. Palpations: Abdomen is soft. Tenderness: There is abdominal tenderness (mild). There is no guarding. Comments: FARHAT drain with serosanguineous output Musculoskeletal: General: Normal range of motion. Cervical back: Normal range of motion. Skin: General: Skin is warm. Comments: Midline incision with a Prevena system in place, functioning appropriately Neurological: General: No focal deficit present. Mental Status: He is alert and oriented to person, place, and time. LABS: Results from last 7 days Lab Units 05/13/24 0247 05/12/24 0321 05/11/24 0210 05/10/24 1105 05/10/24 0210 05/09/24 2300 05/09/24 1845 WBC X10E9/L 9.2 8.5 9.2 -- 11.8* -- 12.0* HEMOGLOBIN g/dL 10.7* 9.7* 9.8* 10.5* 10.8* < > 11.5* HEMATOCRIT % 30.4* 27.3* 27.9* 30.5* 31.6* < > 33.3* PLATELETS X10E9/L 192 148* 155 -- 171 -- 185 < > = values in this interval not displayed. Results from last 7 days Lab Units 05/13/24 0336 05/13/247 05/12/24 2336 05/12/24200005/12/24 1653 05/12/24 1223 05/12/24 0815 05/12/24 0344 05/12/24 0321 05/11/24 0440 05/11/24 0210 05/10/24 1124 05/10/24 0718 05/10/24 0321 05/10/24 0210 05/09/24 2016 05/09/24 1845 POTASSIUM mmol/L -- 3.7 -- -- -- -- 3.9 -- 3.8 -- 4.1 -- 5.5* < > 6.2* -- 5.0 CO2 mmol/L -- 26 -- -- -- -- -- -- 24 -- 22 -- -- -- 20* -- 23 BUN mg/dL -- 20 -- -- -- -- -- -- 33* -- 28* -- -- -- 45* -- 37* CREATININE mg/dL -- 2.46* -- -- -- -- -- -- 3.39* -- 3.04* -- -- -- 3.77* -- 3.22* BEDSIDE GLUCOSE mg/dL 187* -- 191* 154* 176* < > -- < > -- < > -- < > -- < > -- < > -- GLUCOSE mg/dL -- 203* -- -- -- -- -- -- 160* -- 181* -- -- -- 169* -- 160* < > = values in this interval not displayed. Results from last 7 days Lab Units 05/09/24 1845 05/09/24 0923 PORTABLE INR -- 1.1 INR 1.1 -- PROTIME sec 13.1 -- MEDICATIONS: carvediloL, 25 mg, oral, BID famotidine, 20 mg, intravenous, Q48H heparin (porcine), 5,000 Units, subcutaneous, Q8H DALIA insulin lispro, 2-16 Units, subcutaneous, Q4H metoclopramide, 5 mg, intravenous, Q12H NIFEdipine XL, 30 mg, oral, Q12H DALIA sodium chloride, 10 mL, intravenous, Q96H sodium chloride, 10 mL, intravenous, Q96H sodium citrate, 1.6 mL, intravenous, Q96H sodium citrate, 1.7 mL, intravenous, Q96H sodium chloride 0.9 %, 3 mL/hr, Last Rate: 3 mL/hr (05/12/241917) IMAGING: X-ray chest 1 view Result Date: 05/12/2024 HISTORY: Chest pain COMPARISON: Chest x-ray 02/03/2024 FINDINGS: Portable AP semiupright view of the chest was performed. Enteric feeding tube extends into the stomach with tip not included in the [id number]. A tunneled right jugular dialysis catheter tip overlies the cavoatrial junction. Cardiac silhouette is grossly within normal limits. Bibasilar airspace disease. No significant vascular congestion, pleural effusion or pneumothorax. Surgical clips overlie the right upper quadrant. IMPRESSION: * Bibasilar atelectasis versus pneumonia. Finalized by Renato De La Torre MD on 05/12/2024 7:49 PM ASSESSMENT: The patient is a 68 y.o. male with a pertinent medical history of end-stage renal disease on hemodialysis, type 2 diabetes, hypertension, hypothyroidism, hyperlipidemia, peptic ulcer disease, open partial nephrectomy for renal cell carcinoma who is now 4 Days Post-Op from to a standard Whipple with falciform ligament flap for pancreatic adenocarcinoma (identified on frozen section with positive proximal margin). Surgical pathology pending. Hyperkalemia, follow-up medical management. BNP elevated 566. Follow-up troponin 33 from 38. Cardiology reviewed EKG and not concerned for acute coronary syndrome. 335 mL serosanguinous drainage from FARHAT drain. Drain amylase from POD4 < 10. PLAN: Diet: Adult diet Clear Liquid; No carbonated beverages Adult nutrition supplements Gradually advance oral diet as tolerated. As cortrak was accidentally removed, whether or not it is reinserted will depend on patient tolerance of oral intake. For now, start calorie counts with nutrition. Critical care on board, appreciate recommendations. Okay for transfer out of surgical ICU today. Nephrology on board, appreciate recommendations. Patient receiving regularly scheduled hemodialysis Tuesday, , Tuesday. Coreg and Procardia for hypertension. Physical therapy and occupational therapy - current recommendation for home when medically fit. Pain and nausea control p.r.n. Remove prevena wound vac 05/14. Continue DVT prophylaxis. Desean Taylor MD PGY-3 Surgery Resident 05/13/24 Cosigned by Kylee Cao MD at 05/13/2024 9:41 AM EDT Associated attestation - Kylee Cao MD - 05/13/2024 9:41 AM EDT Attending Attestation: I saw the patient. I performed the critical/kurtz portions of the service. I was directly involved in the management and treatment plan of the patient. I reviewed the resident's note. Additional Notes/Findings: Cortrak was unfortunately accidentally dislodged by patient while moving in and out of bed this morning. Patient was tolerating tube feeds advancement to goal. He has flatus. Awaiting bowel movement. We will start calorie counts. He is on clear liquids with ensures and tolerating. We will advance to regular diet tomorrow if he continues to look well. Prevena VAC will be discontinued tomorrow. FARHAT amylase is low. We will keep drain in for now due to volume. Serosanguinous quality. Kylee Cao MD Surgical Oncologist Hepatobiliary, Pancreas & Endocrine Surgery Images from the original note were not included. NEPHROLOGY PROGRESS NOTE Assessment End-stage renal disease on hemodialysis Tuesday currently dialyzing via right IJ tunneled catheter, patient does have a left upper extremity AV fistula which has now matured will be working on using the access as outpatient. Pancreatic neck adenocarcinoma status post Whipple procedure performed 05/09/2024, surgical service following Hypertension, blood pressure currently above goal Diabetes mellitus type 2 management per primary Anemia of chronic disease along with postoperative anemia, iron deficient however hold off on IV iron given elevated ferritin levels Hyperphosphatemia, on Renvela, levels stable Plan Hemodialysis Tuesday Continue TTS regimen Renal panel daily Strict I&Os Continue Coreg Increase Procardia XL 30 b.i.d. No objection patient being transferred out of ICU from nephrology standpoint Interval history Patient seen examined at bedside. Hemodynamically stable. On room air. Received dialysis yesterday completed 3 hours patient's was quite anxious during treatment not going to be the for 3-1/2 hours. 0.4 L removed. Problem List End-stage renal disease on hemodialysis Tuesday dialyzing at [facility]. End-stage renal disease secondary to postoperative acute tubular necrosis along with loss of renal mass with partial nephrectomy of the right solitary kidney, left kidney is atrophic. Initiated on hemodialysis 05/23/2023. Dialyzing via right upper extremity AV fistula. Previous renal workup June 2023 showed SPEP pending, PIA pending, Anca panel pending, rheumatoid factor less than 10, C3 and C4 were unremarkable, hepatitis panel was nonreactive. Urinalysis from June 2023 showed 300 mg/dL protein with 118 RBCs and 20 wbc's per high-power field with a protein to creatinine ratio of 4.7 grams/gram. Pancreatic adenocarcinoma status post Whipple procedure with ligament flap performed 05/09/2024 Hypertension Diabetes mellitus type 2 Right renal midpole mass 3.4 cm, biopsy 04/01/2023 showing clear cell carcinoma. Right nephrectomy on July 21, 2023. 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 Lombardi Dyslipidemia Cholecystectomy Physical Exam Admission Weight: Weight: 68.5 kg (151 lb 0.2 oz) I/O last 3 completed shifts: In: 1480 [P.O.:240; I.V.:850; NG/GT:390] Out: 1775 [Urine:510; Drains:255; Other:1010] Weight change: -1.3 kg (-2 lb 13.9 oz) Wt Readings from Last 3 Encounters: 05/13/24 67.4 kg (148 lb 9.4 oz) 04/25/24 68.5 kg (151 lb 0.2 oz) 04/16/24 69.4 kg (153 lb) Vitals: Vitals: 05/13/24 0100 05/13/24 0200 05/13/24 0300 05/13/24 0500 BP: 149/74 140/72 Pulse: 90 88 Resp: 19 17 Temp: 36.7 C (98 F) TempSrc: Oral SpO2: 94% 95% Weight: 67.4 kg (148 lb 9.4 oz) Height: General: Alert, oriented x 3 and in no obvious distress Psychiatric: Has a normal mood and affect. HEENT: Head normocephalic. Eyes: Conjunctivae and EOM are normal. Pupils are equal, round and reactive to light. Cardiovascular: Normal rate, regular rhythm and normal heart sounds. No JVD. Pulmonary/Chest: Air entry bilaterally equal. No wheezes or rales. Abdominal: Soft, bowel sounds are normal and there was no tenderness rebound or guarding. Musculoskeletal: Normal range of motion. No tenderness. Neurological: No obvious deficits. Skin: No rash noted. Extremities: No edema Access: Right IJ tunneled catheter, left upper extremity AV fistula positive thrill and bruit Meds: Current Meds: carvediloL, 25 mg, oral, BID famotidine, 20 mg, intravenous, Q48H heparin (porcine), 5,000 Units, subcutaneous, Q8H DALIA insulin lispro, 2-16 Units, subcutaneous, Q4H metoclopramide, 5 mg, intravenous, Q12H NIFEdipine XL, 30 mg, oral, Q24H DALIA sevelamer carbonate, 800 mg, oral, TID with meals sodium chloride, 10 mL, intravenous, Q96H sodium chloride, 10 mL, intravenous, Q96H sodium citrate, 1.6 mL, intravenous, Q96H sodium citrate, 1.7 mL, intravenous, Q96H Continuous Infusions: sodium chloride 0.9 %, 3 mL/hr, Last Rate: 3 mL/hr (05/12/241917) Laboratory Studies Results from last 7 days Lab Units 05/13/24 0247 05/12/24 0815 05/12/24 03205/11/24 0210 SODIUM mmol/L 136 -- 137 134 POTASSIUM mmol/L 3.7 3.9 3.8 4.1 CHLORIDE mmol/L 100 -- 103 101 CO2 mmol/L 26 -- 24 22 BUN mg/dL 20 -- 33* 28* CREATININE mg/dL 2.46* -- 3.39* 3.04* CALCIUM mg/dL 8.9 -- 8.4* 8.8 PHOSPHORUS mg/dL 2.1* -- 2.7 3.8 MAGNESIUM mg/dL 2.2 -- 2.2 2.1 Results from last 7 days Lab Units 05/13/24 0247 05/12/24 0321 05/11/24 0210 WBC X10E9/L 9.2 8.5 9.2 HEMOGLOBIN g/dL 10.7* 9.7* 9.8* HEMATOCRIT % 30.4* 27.3* 27.9* PLATELETS X10E9/L 192 148* 155 Results from last 7 days Lab Units 05/13/24 0247 05/12/24 0321 05/11/24 0210 MAGNESIUM mg/dL 2.2 2.2 2.1 Lab Results Component Value Date CALCIUM 8.9 05/13/2024 Lab Results Component Value Date IRON 35 (L) 05/10/2024 TIBC 244 (L) 05/10/2024 FERRITIN 1,159 (H) 05/10/2024 Please contact me at [phone] (Office) or [phone] (Answering service) with any questions. Kevin Rosario DO [facility] This note was created with the assistance of a speech-recognition program. Although the intention is to generate a document that actually reflects the content of the visit, no guarantees can be provided that every mistake has been identified and corrected by editing. SICU Academic Critical Care Progress Note Name: Zev Crystal Date: 05/13/2024 Length of Stay: 4 day(s) Chief Complaint: No chief complaint on file. History of Present Illness: Zev Crystal is a 68 y.o. 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 Last MRCP demonstrated mild diffuse pancreatitis with edematous change, marked dilation of pancreatic duct with some narrowing in the pancreatic neck region for which he underwent an EUS on 04/04/2024 which was highly suspicious for main duct IPMN, cytology was difficult to interpret due to gut contamination thus it was sent to [facility] where an independent pathologist agreed as well that it was gut contamination. Due to the patient's highly suspicious imaging findings and previous history of cancer, the decision was made to offer a possible central pancreatectomy versus Whipple versus distal pancreatectomy with splenectomy. The patient had an exploratory laparotomy with intraoperative ultrasound of the pancreas, due to the proximal neck location of the tumor a central pancreatectomy was pursued. Frozen section revealed a positive proximal margin thus it was transitioned to a standard Whipple. The patient was extubated in the OR and sent to the SICU in hemodynamically stable condition. PMH ESRD on HD, T2DM, HTN, hypothyroidism, HLD, PUD, 42 PY former smoker PSH open partial nephrectomy for R RCC, cholecystectomy, LUE AVF Home medication: Lipitor 40 mg, Bumex 1 mg, Coreg 25 mg b.i.d., glimepiride, levothyroxine, sevelamer, alprazolam, metformin Interval history: Cortrak came out accidentally. Patient is not willing to have another 1 but we had a discussion and he will consider in a few hours. denies nausea, vomiting, fevers, and chills. Tolerating tube feeds. Pain control improving. No other acute events overnight. Past Medical History: Diagnosis Date AAA (abdominal aortic aneurysm) [place] monitoring Anemia received iron infusions Anxiety xanax prn Arthritis CKD (chronic kidney disease) stage 4, GFR 15-29 ml/min ([facility] 06/2023 Coronary artery disease patient states 1 artery occuluded, no stents DDD (degenerative disc disease), lumbar Dental disease missing tooth front Diabetes mellitus type 2, controlled ([facility] Dialysis patient ([facility]) Claudio Campoverde Sat- Renal Atkinson Essential hypertension 02/23/2018 HL (hearing loss) hearing aid lt ear, deaf right ear Hypothyroidism Mixed hyperlipidemia 02/23/2018 Nicotine dependence 02/23/2018 Pancreatic neoplasm Pancreatitis Peptic ulceration when he was younger Renal cell carcinoma ([facility]) right, left kidney atrophied Skin cancer BCC/SCC Varicella 03/2024 shingles Visual impairment glasses prn Past Surgical History: Procedure Laterality Date BIOPSY MASS 04/01/2023 right kidney BRACHIAL CEPHALIC ARTERIOVENOUS FISTULA Left 01/11/2024 Performed by Zac Lombardi MD at [facility] CARDIAC CATHETERIZATION 2004 2007 [facility] CHOLECYSTECTOMY 2005 COLONOSCOPY 2012 ENDOSCOPIC ULTRASOUND UPPER N/A 04/04/2024 Performed by Polly Reeder MD at [facility] ESOPHAGOGASTRODUODENOSCOPY DIAGNOSTIC N/A 04/04/2024 Performed by Polly Reeder MD at [facility] NASAL SINUS SURGERY 2003 cleaned out NEPHRECTOMY PARTIAL OPEN(BIOBANK) Right 07/21/2023 Performed by Mary Telles MD at [facility] SKIN BIOPSY Several times STRABISMUS SURGERY 1961 VASECTOMY WHIPPLE WITH INTRA OPERATIVE ULTRASOUND- BIOBANK N/A 05/09/2024 Performed by Jeffrey Mcfadden MD at [facility] Medications Prior to Admission Medication Sig Dispense Refill Last Dose/Taking ALPRAZolam (XANAX) 0.25 mg tablet Take 1 tablet (0.25 mg total) by mouth 3 (three) times a day as needed for anxiety. Other - as prescribed atorvastatin (LIPITOR) 40 mg tablet Take 1 tablet (40 mg total) by mouth nightly Indications: high cholesterol. 05/08/2024 bumetanide (BUMEX) 1 mg tablet Take 3 tablets (3 mg total) by mouth daily Indications: edema with defective kidney function. 05/08/2024 carvedilol (COREG) 25 mg tablet Take 1 tablet (25 mg total) by mouth in the morning and 1 tablet (25 mg total) in the evening. Take with meals. Indications: high blood pressure. 05/09/2024 Morning glimepiride (AMARYL) 2 mg tablet Take 1 tablet (2 mg total) by mouth every morning before breakfast Indications: type 2 diabetes mellitus. 05/08/2024 levothyroxine (SYNTHROID, LEVOTHROID) 50 MCG tablet Take 1 tablet (50 mcg total) by mouth in the morning. Indications: a condition with low thyroid hormone levels. 05/09/2024 Morning sevelamer (RENVELA) 800 mg tablet Take 1 tablet (800 mg total) by mouth in the morning and 1 tablet (800 mg total) at noon and 1 tablet (800 mg total) in the evening. Take with meals. Indications: renal osteodystrophy with hyperphosphatemia. 05/08/2024 metFORMIN (GLUCOPHAGE) 500 mg tablet Take 1 tablet (500 mg total) by mouth as needed (patient states he only occasionally takes this) Indications: prevention of type 2 diabetes mellitus. (Patient not taking: Reported on 05/09/2024) More than a month carvediloL, 25 mg, oral, BID famotidine, 20 mg, intravenous, Q48H heparin (porcine), 5,000 Units, subcutaneous, Q8H DALIA insulin lispro, 2-16 Units, subcutaneous, Q4H metoclopramide, 5 mg, intravenous, Q12H NIFEdipine XL, 30 mg, oral, Q12H DALIA sevelamer carbonate, 800 mg, oral, TID with meals sodium chloride, 10 mL, intravenous, Q96H sodium chloride, 10 mL, intravenous, Q96H sodium citrate, 1.6 mL, intravenous, Q96H sodium citrate, 1.7 mL, intravenous, Q96H sodium chloride 0.9 %, 3 mL/hr, Last Rate: 3 mL/hr (05/12/241917) No Known Allergies Family History Problem Relation Age of Onset Lung cancer Mother Brain cancer Mother Heart disease Father Diabetes Sister Diabetes Brother Stroke Paternal Grandmother Heart attack Paternal Grandfather Early Paternal Grandfather 40 Diabetes Son Cancer Half Brother thyroid and pancreatic Anesthesia problems Neg Hx Bleeding Disorder Neg Hx Clotting disorder Neg Hx Prostate cancer Neg Hx Colon cancer Neg Hx Kidney cancer Neg Hx Thyroid cancer Neg Hx Social History Socioeconomic History Marital status: Tobacco Use Smoking status: Every Day Average packs/day: 1 pack/day for 41.6 years (41.6 ttl pk-yrs) Types: Cigarettes Start date: 07/25/1982 Passive exposure: Current Smokeless tobacco: Never Tobacco comments: Currently smoking 1/2ppd. Vaping Use Vaping status: Never Used Substance and Sexual Activity Alcohol use: No Drug use: Not Currently Types: Marijuana Sexual activity: Defer Other Topics Concern Caffeine Use Yes Social History Narrative Lives with . Worked at a [employer]. Has a dog in the home. Social Drivers of Health Food Insecurity: Patient Unable To Answer (05/09/2024) Hunger Screening Food Insecurity - Worry: Patient unable to answer Food Insecurity - Inability: Patient unable to answer Transportation Needs: Patient Unable To Answer (05/09/2024) PRAPARE - Transportation Lack of Transportation (Medical): Patient unable to answer Lack of Transportation (Non-Medical): Patient unable to answer Interpersonal Safety: Patient Unable To Answer (05/09/2024) Humiliation, Afraid, Rape, and Kick questionnaire Fear of Current or Ex-Partner: Patient unable to answer Emotionally Abused: Patient unable to answer Physically Abused: Patient unable to answer Sexually Abused: Patient unable to answer Housing Instability: Patient Unable To Answer (05/09/2024) Housing Instability Housing Instability: Patient unable to answer Temp: [36.5 C (97.7 F)-37.2 C (99 F)] 36.7 C (98 F) Pulse: [80-103] 88 Resp: [12-21] 17 BP: (139-189)/(69-105) 140/72 SpO2: [93 %-98 %] 95 % O2 Device: None (Room air) O2 Device: None (Room air) Physical Exam General: Awake, alert and oriented x3, in pain but no acute distress HENT: Head atraumatic, normocephalic, external ears and nose are normal Eyes: Conjunctivae clear, non-icteric, EOMI Pulmonary: Regular, non-labored respirations, without use of accessory muscles, no stridor, saturating well on nasal cannula Cardiovascular: Normal rate and regular rhythm, radial pulses 2+, non-edematous x4 extremities, hypertensive Abdomen: Mildly distended, midline incision with wound VAC place, drain in place on the right abdomen, mildly tender Musculoskeletal: Range of motion grossly normal x4 extremities, no deformity x4 extremities Neurological: CN 2-12 grossly intact, sensation grossly intact Skin: Warm, dry, without jaundice Ventilator Not at this time, he is on room air Results from last 3 days Lab Units 05/13/24 0247 05/12/24 0815 05/12/241 05/11/2420905/10/24 0718 BUN mg/dL 20 -- 33* 28* -- CREATININE mg/dL 2.46* -- 3.39* 3.04* -- POTASSIUM mmol/L 3.7 3.9 3.8 4.1 5.5* CO2 mmol/L 26 -- 24 22 -- CHLORIDE mmol/L 100 -- 103 101 -- MAGNESIUM mg/dL 2.2 -- 2.2 2.1 -- AST U/L 22 -- 33 73* -- ALT U/L 59* -- 84* 153* -- ALK PHOS U/L 82 -- 78 78 -- No data from last 3 days. Results from last 3 days Lab Units 05/13/24 0247 05/12/24 0321 05/11/2420905/10/24 1105 WBC X10E9/L 9.2 8.5 9.2 -- HEMOGLOBIN g/dL 10.7* 9.7* 9.8* 10.5* HEMATOCRIT % 30.4* 27.3* 27.9* 30.5* PLATELETS X10E9/L 192 148* 155 -- MCV fL 93 94 94 -- MCH pg 32.8 33.2 33.2 -- MCHC g/dL 35.2 35.5 35.3 -- RDW % 13.2 13.1 13.5 -- EOS ABS AUTO X10E9/L 0.5* 0.4 0.1 -- Microbiology Results No results found for the last 168 hours. Glucose Results from last 7 days Lab Units 05/13/24 0336 05/13/24 0247 05/12/24 2336 05/12/24200005/12/24 1653 05/12/24 1223 05/12/24 0734 05/12/24 0344 05/12/24 0321 05/11/24 2346 05/11/24200105/11/24 1622 BEDSIDE GLUCOSE mg/dL 187* -- 191* 154* 176* 112* 146* 164* -- 156* 124* 139* GLUCOSE mg/dL -- 203* -- -- -- -- -- -- 160* -- -- -- I/O last 3 completed shifts: In: 1480 [P.O.:240; I.V.:850; NG/GT:390] Out: 1775 [Urine:510; Drains:255; Other:1010] carvediloL, 25 mg, oral, BID famotidine, 20 mg, intravenous, Q48H heparin (porcine), 5,000 Units, subcutaneous, Q8H DALIA insulin lispro, 2-16 Units, subcutaneous, Q4H metoclopramide, 5 mg, intravenous, Q12H NIFEdipine XL, 30 mg, oral, Q12H DALIA sevelamer carbonate, 800 mg, oral, TID with meals sodium chloride, 10 mL, intravenous, Q96H sodium chloride, 10 mL, intravenous, Q96H sodium citrate, 1.6 mL, intravenous, Q96H sodium citrate, 1.7 mL, intravenous, Q96H sodium chloride 0.9 %, 3 mL/hr, Last Rate: 3 mL/hr (05/12/241917) Microbiology Results No results found for the last 168 hours. Lines/Drains Hemodialysis Catheter Double 07/27/23 Cuffed Right Internal Jugular (Active) Precautions Standard precautions;Hand hygiene;Gloves 05/09/241829 Lumen 1 Red 05/09/241829 Lumen 1 Status Other (Comment) 05/09/241829 Lumen 2 Blue 05/09/241829 Lumen 2 Status Other (Comment) 05/09/241829 HD Status Citrate Locked 05/09/241829 Site Assessment Clean;Dry;Intact 05/09/241829 Site Condition No complications 05/09/241829 Dressing Type Occlusive;Transparent with CHG gel 05/09/241829 Dressing Status Clean;Dry;Intact 05/09/241829 Line Necessity Dialysis 05/09/241829 Line Necessity Reviewed With cc 05/09/241829 Patient tolerance of dressing change Tolerated well 05/09/241829 Dressing Type Occlusive 05/09/241829 Peripheral IV 05/09/24 Posterior;Right Hand (Active) Line Status Saline locked 05/09/241829 Site Assessment Clean;Intact;Dry 05/09/241829 Dressing Type Occlusive;Transparent 05/09/241829 Dressing Status Clean;Dry;Intact 05/09/241829 Peripheral IV 05/09/24 Right Forearm (Active) Line Status Saline locked 05/09/241829 Site Assessment Clean;Dry;Intact 05/09/241829 Dressing Type Occlusive;Transparent 05/09/241829 Dressing Status Clean;Dry;Intact 05/09/241829 Closed/Suction Drain 05/09/24 1 Left RLQ (Active) Drain/Tube Status To bulb suction 05/09/241829 Site Assessment Sutured 05/09/241829 Drain Securement Sutured 05/09/241829 Dressing Type Open to air (none) 05/09/241829 Drainage Appearance Bloody 05/09/241829 Negative Pressure Wound Therapy 05/09/24 Abdomen (Active) Assessed: Compressed 05/09/241829 Cycle Continuous 05/09/241829 Intensity Low 05/09/241829 Dressing Type Other (Comment) 05/09/241829 Dressing Status Clean;Dry;Intact 05/09/241829 Drainage Amount None 05/09/241829 NG/OG Tube 05/09/24 Cortrak Right nostril (Active) Securement Method Securing device (Describe) 04/11/24 0002 Urinary Catheter 05/09/24 Double-lumen (Active) Catheter Status Patent 05/09/241829 Site Assessment Clean 05/09/241829 Collection Container Standard drainage bag/container 05/09/241829 Securement Method Securing device (Describe) 05/09/241829 Reason for Continuing Physician order 05/09/241829 Urine Color Yellow/straw 05/09/241829 Urine Appearance Clear 05/09/241829 Arterial Line 05/09/24 Right Radial (Active) Line Status Pulsatile blood flow 05/09/241829 Line Interventions Zeroed and calibrated;Leveled;Connections checked and tightened;Pressure bag maintained;Armboard;Flushed per protocol;Line pulled back 05/09/242019 Waveform Appropriate;Square wave test performed 05/09/242019 Site Assessment Clean;Dry;Intact 05/09/241829 Dressing Type Occlusive;Transparent 05/09/241829 Dressing Status Clean;Dry;Intact 05/09/241829 Color/Movement/Sensation Capillary refill less than 3 sec 05/09/241829 Patient Tolerance of Line Care Tolerated well 05/09/241829 Line Necessity Invasive hemodynamic monitoring 05/09/241829 Line Necessity Reviewed With cc 05/09/241829 ACTIVE PROBLEM LIST: 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 male who was found to have pancreatic neck adenocarcinoma and underwent open central pancreatectomy converted to Whipple procedure on 05/09/2024. His course of recovery in the ICU has been stable other than hyperkalemia corrected with medical management and hemodialysis. Nephrology is following the patient and managing he has ESRD/hemodialysis, planning to do next hemodialysis next Tuesday per nephrology. 1. Neuro Hospital Meds: Analgesia: Acetaminophen, oxycodone, Dilaudid Other: Home Meds: Alprazolam PMH: Anxiety PSH: 2. Pulmonary Breathing Support: None, breathing room air Settings: SpO2: 95% Continuous pulse oximetry Hospital Meds: Home Meds: PMH: 42 pack year former smoker PSH: Encourage IS use and deep breathing 3. Cardiovascular Hemodynamics: RRR Mildly Hypertensive Pressors: None Goal MAP >65 Continuous cardiac monitoring Cardiology consulted on 05/10/24 for concern of STEMI on EKG.Based on their assessment: EKG reviewed with Dr. Bennett. EKG is not a STEMI and is c/w LVH, similar to prior EKG 04/26/24. HS troponin only 38. No further recommendations . Hospital Meds: Labetalol PRN, Hydralazine PRN, Carvedilol 25mg BD, nifedipine Nephrology recommended the following: Continue Coreg Increase Procardia XL 30 b.i.d. Home Meds: Lipitor 40 mg, Coreg 25 mg b.i.d., aspirin PMH: 4.3 cm asymptomatic AAA, HTN, HLD, CAD, hypertrophic cardiomyopathy (echo 2022 LVEF 55-60%, suggestive of hypertrophic cardiomyopathy) PSH: Cardiac catheterization in 2007 with reported 100% occlusion of an unnamed vessel Code Status: Full 4. GI Pancreatic neck adenocarcinoma status post open central pancreatectomy converted to Whipple procedure 05/09/2024 RLQ drain with 335 cc output Diet: Clear liquids PO, Cortrak tube accidentally came out; patient does not want to get it again but we will discuss in a few hours; will defer tube feed management to primary team Advancing tube feeds if he gets the tube back Bowel Function: Monitoring Results from last 3 days Lab Units 05/13/24 0247 05/12/24 0321 05/11/24 0210 AST U/L 22 33 73* ALT U/L 59* 84* 153* Hospital Meds: Sarah Huitron Home Meds: PMH: Peptic ulcer disease PSH: Cholecystectomy 5. Renal/Genitourinary ESRD on hemodialysis, nephrology following and managing - 1100 off in HD 05/12, next hemodialysis on Tuesday Electrolytes: Results from last 3 days Lab Units 05/13/24 0247 05/12/24 0815 05/12/24 0321 05/11/24 0210 SODIUM mmol/L 136 -- 137 134 CHLORIDE mmol/L 100 -- 103 101 POTASSIUM mmol/L 3.7 3.9 3.8 4.1 CO2 mmol/L 26 -- 24 22 BUN mg/dL 20 -- 33* 28* CREATININE mg/dL 2.46* -- 3.39* 3.04* MAGNESIUM mg/dL 2.2 -- 2.2 2.1 PHOSPHORUS mg/dL 2.1* -- 2.7 3.8 Will replace electrolytes PRN per ICU protocol Fluid Balance: IV Fluids: - UOP/24 H: 475 Net Fluid/24H:-709 Intake/Output Summary (Last 24 hours) at 05/13/2024 0644 Last data filed at 05/13/2024 0200 Gross per 24 hour Intake 1110.45 ml Output 1820 ml Net -709.55 ml Net Fluid Since Admission: Net IO Since Admission: 949.85 mL [05/13/24 0644] Strict monitoring of Ins and Outs Hospital Meds: Coreg, hydralazine, labetalol, nifedipine Home Meds: Sevelamer, Bumex PMH: ESRD on HD, right renal cell carcinoma PSH: Left upper extremity brachiocephalic AV fistula, open partial right nephrectomy 6. Heme Labs: Results from last 3 days Lab Units 05/13/24 0247 05/12/24 0321 05/11/24 0210 HEMOGLOBIN g/dL 10.7* 9.7* 9.8* PLATELETS X10E9/L 192 148* 155 Type and Screen: A Blood Products Administered: None Will continue to monitor hgb and transfuse PRN 7. ID Tmax/24H: Temp (24hrs), Av.8 C (98.3 F), Min:36.5 C (97.7 F), Max:37.2 C (99 F) Labs: Results from last 3 days Lab Units 05/13/24 0247 05/12/24 0321 05/11/24 0210 WBC X10E9/L 9.2 8.5 9.2 Hospital Meds: Antibiotics: No current antibiotics; Zosyn (05/10 - 05/11) Continue to monitor for signs of infection 8. Endocrine Results from last 3 days Lab Units 05/13/24 0336 05/13/24 0247 05/12/24 2336 BEDSIDE GLUCOSE mg/dL 187* -- 191* GLUCOSE mg/dL -- 203* -- Goal Blood Glucose <180 mg/dL Hospital Meds: Increase Sliding scale insulin from 2-10 units Q 4 > 2-16 Home Meds: Levothyroxine, metformin, glimepiride PMH: Hypothyroidism, type 2 diabetes mellitus PSH: 9. Musculoskeletal PMH: PSH: PT/OT when able 10. Prophylaxis Respiratory: Encourage IS use and deep breathing GI: Pepcid DVT: SCD Cuffs, SQH 11. LDA Hemodialysis Catheter Double 07/27/23 Cuffed Rt Internal Jugular Peripheral IV 05/09/24 Posterior;Right Hand Closed/Suction Drain 05/09/24 1 Left RLQ NG/OG Tube 05/09/24 Cortrak Right nostril Negative Pressure Wound Therapy 05/09/24 Abdomen Dispo: Improving, transfer out of SICU Elizabeth Winters MD PGY1 General Surgery 05/13/2024 Cosigned by Kong Alvarado MD at 05/13/2024 8:38 AM EDT Associated attestation - Kong Alvarado MD - 05/13/2024 8:38 AM EDT Attending Attestation: I saw the patient. I participated and was physically present during the critical/kurtz portions of the service. I was directly involved in the management and treatment plan of the patient. I reviewed the resident's note. Additional Notes/Findings: Patient has transfer orders Images from the original note were not included. HEPATOBILIARY SURGERY PROGRESS NOTE SUBJECTIVE: Patient started on clear liquid diet yesterday, but had minimal oral intake. He has not yet had a gas or bowel movement since surgery. He continues on trickle tube feeds at a rate of 20 cc/hour. He did have 120 cc of serosanguineous output from his abdominal FARHAT drain Over the past 24 hours. VITALS: Vitals: 05/12/24 0812 BP: 171/76 Pulse: 85 Resp: 18 Temp: SpO2: 97% I/O last 3 completed shifts: In: 676.4 [P.O.:240; I.V.:72; NG/GT:300; IV Piggyback:64.4] Out: 645 [Urine:460; Drains:185] I/O this shift: In: 280 [I.V.:250; NG/GT:30] Out: 200 [Urine:200] Physical Exam Constitutional: Appearance: He is not ill-appearing. HENT: Nose: Nose normal. Comments: Cortrak in place Mouth/Throat: Mouth: Mucous membranes are moist. Eyes: Extraocular Movements: Extraocular movements intact. Cardiovascular: Rate and Rhythm: Normal rate. Pulses: Normal pulses. Pulmonary: Effort: Pulmonary effort is normal. No respiratory distress. Comments: Room air Abdominal: General: Abdomen is flat. There is no distension. Palpations: Abdomen is soft. Tenderness: There is abdominal tenderness (Appropriately tender to palpation). There is no guarding. Comments: FARHAT drain with serosanguineous output Musculoskeletal: General: Normal range of motion. Cervical back: Normal range of motion. Skin: General: Skin is warm. Comments: Midline incision with a Prevena system in place, functioning appropriately Neurological: General: No focal deficit present. Mental Status: He is alert and oriented to person, place, and time. LABS: Results from last 7 days Lab Units 05/12/24 0321 05/11/24 0210 05/10/24 1105 05/10/24 0210 05/09/24 2300 05/09/24 1845 WBC X10E9/L 8.5 9.2 -- 11.8* -- 12.0* HEMOGLOBIN g/dL 9.7* 9.8* 10.5* 10.8* 11.3* 11.5* HEMATOCRIT % 27.3* 27.9* 30.5* 31.6* 33.4* 33.3* PLATELETS X10E9/L 148* 155 -- 171 -- 185 Results from last 7 days Lab Units 05/12/24 0734 05/12/24 0344 05/12/24 0321 05/11/24 2346 05/11/24 2002 05/11/24 0440 05/11/24 0210 05/10/24 1124 05/10/24 0718 05/10/24 0422 05/10/24 0322 05/10/24 0321 05/10/24 0210 05/09/24 2016 05/09/24 1845 05/09/24 0921 0000 POTASSIUM mmol/L -- -- 3.8 -- -- -- 4.1 -- 5.5* -- 6.2* -- 6.2* -- 5.0 -- < > POC POTASSIUM mmol/L -- -- -- -- -- -- -- -- -- -- -- -- -- -- -- 4.9 -- CO2 mmol/L -- -- 24 -- -- -- 22 -- -- -- -- -- 20* -- 23 -- -- BUN mg/dL -- -- 33* -- -- -- 28* -- -- -- -- -- 45* -- 37* -- -- CREATININE mg/dL -- -- 3.39* -- -- -- 3.04* -- -- -- -- -- 3.77* -- 3.22* -- -- POC CREATININE mg/dL -- -- -- -- -- -- -- -- -- -- -- -- -- -- -- ORDERED IN ERROR -- POC GLUCOSE mg/dL -- -- -- -- -- -- -- -- -- -- -- -- -- -- -- 94 -- BEDSIDE GLUCOSE mg/dL 146* 164* -- 156* 124* < > -- < > -- < > -- < > -- < > -- -- -- GLUCOSE mg/dL -- -- 160* -- -- -- 181* -- -- -- -- -- 169* -- 160* -- < > < > = values in this interval not displayed. Results from last 7 days Lab Units 05/09/24 1845 05/09/24 0923 PORTABLE INR -- 1.1 INR 1.1 -- PROTIME sec 13.1 -- MEDICATIONS: acetaminophen, 1,000 mg, oral, Q6H DALIA carvediloL, 25 mg, oral, BID famotidine, 20 mg, intravenous, Q48H heparin (porcine), 5,000 Units, subcutaneous, Q8H DALIA insulin lispro, 2-10 Units, subcutaneous, Q4H metoclopramide, 5 mg, intravenous, Q12H NIFEdipine XL, 30 mg, oral, Q24H DALIA sevelamer carbonate, 800 mg, oral, TID with meals sodium chloride, 10 mL, intravenous, Q96H sodium chloride, 10 mL, intravenous, Q96H sodium citrate, 1.6 mL, intravenous, Q96H sodium citrate, 1.7 mL, intravenous, Q96H sodium chloride 0.9 %, 3 mL/hr, Last Rate: 3 mL/hr (05/11/24 0629) IMAGING: No results found. ASSESSMENT: The patient is a 68 y.o. male with a pertinent medical history of end-stage renal disease on hemodialysis, type 2 diabetes, hypertension, hypothyroidism, hyperlipidemia, peptic ulcer disease, open partial nephrectomy for renal cell carcinoma who is now 3 Days Post-Op from to a standard Whipple with falciform ligament flap for pancreatic adenocarcinoma (identified on frozen section with positive proximal margin). Surgical pathology pending. Hyperkalemia, follow-up medical management. BNP elevated 566. Follow-up troponin 33 from 38. Cardiology reviewed EKG and not concerned for acute coronary syndrome. 120 mL serosanguinous drainage from FARHAT drain. PLAN: Diet: Adult Diet Tray and Continuous Tube Feeding Clear Liquid; No carbonated beverages; Tube feeding With Tray- Continuous; Nasojejunal feeding tube; Renal; 20; 0; 10 Gradually advance oral diet as tolerated. We will consider advancement of tube feeds as well pending oral intake. Monitor for return of bowel function. Critical care on board, appreciate recommendations. Okay for transfer out of surgical ICU today. Nephrology on board, appreciate recommendations. Patient received regularly scheduled hemodialysis Tuesday, , Tuesday. Physical therapy and occupational therapy Pain and nausea control p.r.n. Continue DVT prophylaxis. Desean Taylor MD PGY-3 Surgery Resident 05/12/24 Cosigned by Kylee Cao MD at 05/12/2024 12:23 PM EDT Associated attestation - Kylee Cao MD - 05/12/2024 12:23 PM EDT Attending Attestation: I saw the patient. I performed the critical/kurtz portions of the service. I was directly involved in the management and treatment plan of the patient. I reviewed the resident's note. Additional Notes/Findings: Agree with above. Kylee Cao MD Surgical Oncologist Hepatobiliary, Pancreas & Endocrine Surgery Images from the original note were not included. NEPHROLOGY PROGRESS NOTE Assessment End-stage renal disease on hemodialysis Tuesday currently dialyzing via right IJ tunneled catheter, patient does have a left upper extremity AV fistula which has now matured will be working on using the access as outpatient. Pancreatic neck adenocarcinoma status post Whipple procedure performed 05/09/2024, surgical service following Hypertension, blood pressure currently above goal Diabetes mellitus type 2 management per primary Anemia of chronic disease along with postoperative anemia, iron deficient however hold off on IV iron given elevated ferritin levels Hyperphosphatemia, on Renvela, levels stable Plan Hemodialysis today Continue TTS regimen Renal panel daily Strict I&Os Start nifedipine XL 30 mg daily No objection patient being transferred out of ICU from nephrology standpoint Interval history Patient seen examined at bedside. Hemodynamically stable. On room air. Problem List End-stage renal disease on hemodialysis Tuesday dialyzing at [facility]. End-stage renal disease secondary to postoperative acute tubular necrosis along with loss of renal mass with partial nephrectomy of the right solitary kidney, left kidney is atrophic. Initiated on hemodialysis 05/23/2023. Dialyzing via right upper extremity AV fistula. Previous renal workup June 2023 showed SPEP pending, PIA pending, Anca panel pending, rheumatoid factor less than 10, C3 and C4 were unremarkable, hepatitis panel was nonreactive. Urinalysis from June 2023 showed 300 mg/dL protein with 118 RBCs and 20 wbc's per high-power field with a protein to creatinine ratio of 4.7 grams/gram. Pancreatic adenocarcinoma status post Whipple procedure with ligament flap performed 05/09/2024 Hypertension Diabetes mellitus type 2 Right renal midpole mass 3.4 cm, biopsy 04/01/2023 showing clear cell carcinoma. Right nephrectomy on July 21, 2023. 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 Lombardi Dyslipidemia Cholecystectomy Physical Exam Admission Weight: Weight: 68.5 kg (151 lb 0.2 oz) I/O last 3 completed shifts: In: 946.4 [P.O.:240; I.V.:402; NG/GT:240; IV Piggyback:64.4] Out: 945 [Urine:765; Drains:180] Weight change: Wt Readings from Last 3 Encounters: 05/12/24 68.3 kg (150 lb 9.2 oz) 04/25/24 68.5 kg (151 lb 0.2 oz) 04/16/24 69.4 kg (153 lb) Vitals: Vitals: 05/12/24 0300 05/12/24 0400 05/12/24 0500 05/12/24 0600 BP: 167/78 144/73 163/77 Pulse: 98 103 100 98 Resp: 16 24 13 15 Temp: 36.7 C (98 F) TempSrc: Oral SpO2: 94% 92% 92% 97% Weight: 68.3 kg (150 lb 9.2 oz) Height: General: Alert, oriented x 3 and in no obvious distress Psychiatric: Has a normal mood and affect. HEENT: Head normocephalic. Eyes: Conjunctivae and EOM are normal. Pupils are equal, round and reactive to light. Cardiovascular: Normal rate, regular rhythm and normal heart sounds. No JVD. Pulmonary/Chest: Air entry bilaterally equal. No wheezes or rales. Abdominal: Soft, bowel sounds are normal and there was no tenderness rebound or guarding. Musculoskeletal: Normal range of motion. No tenderness. Neurological: No obvious deficits. Skin: No rash noted. Extremities: No edema Access: Right IJ tunneled catheter, left upper extremity AV fistula positive thrill and bruit Meds: Current Meds: acetaminophen, 1,000 mg, oral, Q6H DALIA carvediloL, 25 mg, oral, BID famotidine, 20 mg, intravenous, Q48H heparin (porcine), 5,000 Units, subcutaneous, Q8H DALIA insulin lispro, 2-10 Units, subcutaneous, Q4H metoclopramide, 5 mg, intravenous, Q12H sevelamer carbonate, 800 mg, oral, TID with meals sodium chloride, 10 mL, intravenous, Q96H sodium chloride, 10 mL, intravenous, Q96H sodium citrate, 1.6 mL, intravenous, Q96H sodium citrate, 1.7 mL, intravenous, Q96H Continuous Infusions: sodium chloride 0.9 %, 3 mL/hr, Last Rate: 3 mL/hr (05/11/24 0629) Laboratory Studies Results from last 7 days Lab Units 05/12/24 0321 05/11/24 0210 05/10/24 0718 05/10/24 0322 05/10/24 0210 SODIUM mmol/L 137 134 -- -- 138 POTASSIUM mmol/L 3.8 4.1 5.5* < > 6.2* CHLORIDE mmol/L 103 101 -- -- 108 CO2 mmol/L 24 22 -- -- 20* BUN mg/dL 33* 28* -- -- 45* CREATININE mg/dL 3.39* 3.04* -- -- 3.77* CALCIUM mg/dL 8.4* 8.8 -- -- 8.6 PHOSPHORUS mg/dL 2.7 3.8 -- -- 4.3 MAGNESIUM mg/dL 2.2 2.1 -- -- 2.5 < > = values in this interval not displayed. Results from last 7 days Lab Units 05/12/24 0321 05/11/24 0210 05/10/24 1105 05/10/240 WBC X10E9/L 8.5 9.2 -- 11.8* HEMOGLOBIN g/dL 9.7* 9.8* 10.5* 10.8* HEMATOCRIT % 27.3* 27.9* 30.5* 31.6* PLATELETS X10E9/L 148* 155 -- 171 Results from last 7 days Lab Units 05/12/24 0321 05/11/24 0210 05/10/24 0210 MAGNESIUM mg/dL 2.2 2.1 2.5 Lab Results Component Value Date CALCIUM 8.4 (L) 05/12/2024 Lab Results Component Value Date IRON 35 (L) 05/10/2024 TIBC 244 (L) 05/10/2024 FERRITIN 1,159 (H) 05/10/2024 Please contact me at [phone] (Office) or [phone] (Answering service) with any questions. Kevin Rosario DO [facility] This note was created with the assistance of a speech-recognition program. Although the intention is to generate a document that actually reflects the content of the visit, no guarantees can be provided that every mistake has been identified and corrected by editing. [facility] Academic Critical Care Consultation Name: Zev Crystal Date: 05/12/2024 Length of Stay: 3 day(s) Chief Complaint: No chief complaint on file. History of Present Illness: Zev Crystal is a 68 y.o. 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 Last MRCP demonstrated mild diffuse pancreatitis with edematous change, marked dilation of pancreatic duct with some narrowing in the pancreatic neck region for which he underwent an EUS on 04/04/2024 which was highly suspicious for main duct IPMN, cytology was difficult to interpret due to gut contamination thus it was sent to [facility] where an independent pathologist agreed as well that it was gut contamination. Due to the patient's highly suspicious imaging findings and previous history of cancer, the decision was made to offer a possible central pancreatectomy versus Whipple versus distal pancreatectomy with splenectomy. The patient had an exploratory laparotomy with intraoperative ultrasound of the pancreas, due to the proximal neck location of the tumor a central pancreatectomy was pursued. Frozen section revealed a positive proximal margin thus it was transitioned to a standard Whipple. The patient was extubated in the OR and sent to the SICU in hemodynamically stable condition. PMH ESRD on HD, T2DM, HTN, hypothyroidism, HLD, PUD, 42 PY former smoker PSH open partial nephrectomy for R RCC, cholecystectomy, LUE AVF Home medication: Lipitor 40 mg, Bumex 1 mg, Coreg 25 mg b.i.d., glimepiride, levothyroxine, sevelamer, alprazolam, metformin Interval history: No acute events overnight. Patient reports abdominal pain with a severity of 7/10 which has remained the same since surgery (no acute exacerbation). He does not want to take any pain treatments at this time because he wants to be able to walk He has tube feeds running at 20 mL/hour as well as clear liquids p.o. where she has been tolerating well with no nausea or vomiting. Past Medical History: Diagnosis Date AAA (abdominal aortic aneurysm) [place] [place] monitoring Anemia received iron infusions Anxiety xanax prn Arthritis CKD (chronic kidney disease) stage 4, GFR 15-29 ml/min ([facility] [place] 06/2023 Coronary artery disease patient states 1 artery occuluded, no stents DDD (degenerative disc disease), lumbar Dental disease missing tooth front Diabetes mellitus type 2, controlled ([facility] Dialysis patient ([facility] [place]) Sat- Renal Atkinson Essential hypertension 02/23/2018 HL (hearing loss) hearing aid lt ear, deaf right ear Hypothyroidism Mixed hyperlipidemia 02/23/2018 Nicotine dependence 02/23/2018 Pancreatic neoplasm Pancreatitis Peptic ulceration when he was younger Renal cell carcinoma (CMS-HCC) right, left kidney atrophied Skin cancer BCC/SCC Varicella 03/2024 shingles Visual impairment glasses prn Past Surgical History: Procedure Laterality Date BIOPSY MASS 04/01/2023 right kidney BRACHIAL CEPHALIC ARTERIOVENOUS FISTULA Left 01/11/2024 Performed by Zac Lombardi MD at [facility] CARDIAC CATHETERIZATION 2004 2007 NEW [facility] CHOLECYSTECTOMY 2005 COLONOSCOPY 2012 ENDOSCOPIC ULTRASOUND UPPER N/A 04/04/2024 Performed by Polly Reeder MD at [facility] ESOPHAGOGASTRODUODENOSCOPY DIAGNOSTIC N/A 04/04/2024 Performed by Polly Reeder MD at [facility] NASAL SINUS SURGERY 2003 cleaned out NEPHRECTOMY PARTIAL OPEN(BIOBANK) Right 07/21/2023 Performed by Mary Telles MD at [facility] SKIN BIOPSY Several times STRABISMUS SURGERY 1961 VASECTOMY WHIPPLE WITH INTRA OPERATIVE ULTRASOUND- BIOBANK N/A 05/09/2024 Performed by Jeffrey Mcfadden MD at [facility] ROS Constitutional: []fever, []chills, []fatigue, [x]unplanned weight change. HEENT: []head pain, []hearing changes, []vision changes, []sneezing, []sore throat. Neck: [] masses, []swelling, []pain. Respiratory: []cough, []shortness of breath. Cardiovascular: []chest pain, []palpitations. Gastrointestinal: [x]abdominal pain, []nausea, []vomiting, []diarrhea, []constipation, []hematochezia, []melena . Genitourinary: []dysuria,[] urgency, []change in frequency,[] hematuria. Endocrine: [] heat intolerance, []cold intolerance. Musculoskeletal: []myalgias, []arthralgias, []swelling. Neurological: []dizziness, []ight-headedness, []weakness, []numbness, []tingling. Skin: []color change, []easy bruising, []rashes, []new lesions. Immunologic: []adenopathy, []environmental allergies, []food allergies. Psychiatric: []anxiety, []sleep disturbance. Medications Prior to Admission Medication Sig Dispense Refill Last Dose/Taking ALPRAZolam (XANAX) 0.25 mg tablet Take 1 tablet (0.25 mg total) by mouth 3 (three) times a day as needed for anxiety. Other - as prescribed atorvastatin (LIPITOR) 40 mg tablet Take 1 tablet (40 mg total) by mouth nightly Indications: high cholesterol. 05/08/2024 bumetanide (BUMEX) 1 mg tablet Take 3 tablets (3 mg total) by mouth daily Indications: edema with defective kidney function. 05/08/2024 carvedilol (COREG) 25 mg tablet Take 1 tablet (25 mg total) by mouth in the morning and 1 tablet (25 mg total) in the evening. Take with meals. Indications: high blood pressure. 05/09/2024 Morning glimepiride (AMARYL) 2 mg tablet Take 1 tablet (2 mg total) by mouth every morning before breakfast Indications: type 2 diabetes mellitus. 05/08/2024 levothyroxine (SYNTHROID, LEVOTHROID) 50 MCG tablet Take 1 tablet (50 mcg total) by mouth in the morning. Indications: a condition with low thyroid hormone levels. 05/09/2024 Morning sevelamer (RENVELA) 800 mg tablet Take 1 tablet (800 mg total) by mouth in the morning and 1 tablet (800 mg total) at noon and 1 tablet (800 mg total) in the evening. Take with meals. Indications: renal osteodystrophy with hyperphosphatemia. 05/08/2024 metFORMIN (GLUCOPHAGE) 500 mg tablet Take 1 tablet (500 mg total) by mouth as needed (patient states he only occasionally takes this) Indications: prevention of type 2 diabetes mellitus. (Patient not taking: Reported on 05/09/2024) More than a month acetaminophen, 1,000 mg, oral, Q6H DALIA carvediloL, 25 mg, oral, BID famotidine, 20 mg, intravenous, Q48H heparin (porcine), 5,000 Units, subcutaneous, Q8H DALIA insulin lispro, 2-10 Units, subcutaneous, Q4H metoclopramide, 5 mg, intravenous, Q12H sevelamer carbonate, 800 mg, oral, TID with meals sodium chloride, 10 mL, intravenous, Q96H sodium chloride, 10 mL, intravenous, Q96H sodium citrate, 1.6 mL, intravenous, Q96H sodium citrate, 1.7 mL, intravenous, Q96H sodium chloride 0.9 %, 3 mL/hr, Last Rate: 3 mL/hr (05/11/24 06) No Known Allergies Family History Problem Relation Age of Onset Lung cancer Mother Brain cancer Mother Heart disease Father Diabetes Sister Diabetes Brother Stroke Paternal Grandmother Heart attack Paternal Grandfather Early Paternal Grandfather 40 Diabetes Son Cancer Half Brother thyroid and pancreatic Anesthesia problems Neg Hx Bleeding Disorder Neg Hx Clotting disorder Neg Hx Prostate cancer Neg Hx Colon cancer Neg Hx Kidney cancer Neg Hx Thyroid cancer Neg Hx Social History Socioeconomic History Marital status: Tobacco Use Smoking status: Every Day Average packs/day: 1 pack/day for 41.6 years (41.6 ttl pk-yrs) Types: Cigarettes Start date: 07/25/1982 Passive exposure: Current Smokeless tobacco: Never Tobacco comments: Currently smoking 1/2ppd. Vaping Use Vaping status: Never Used Substance and Sexual Activity Alcohol use: No Drug use: Not Currently Types: Marijuana Sexual activity: Defer Other Topics Concern Caffeine Use Yes Social History Narrative Lives with . Worked at a [employer]. Has a dog in the home. Social Drivers of Health Food Insecurity: Patient Unable To Answer (05/09/2024) Hunger Screening Food Insecurity - Worry: Patient unable to answer Food Insecurity - Inability: Patient unable to answer Transportation Needs: Patient Unable To Answer (05/09/2024) PRAPARE - Transportation Lack of Transportation (Medical): Patient unable to answer Lack of Transportation (Non-Medical): Patient unable to answer Interpersonal Safety: Patient Unable To Answer (05/09/2024) Humiliation, Afraid, Rape, and Kick questionnaire Fear of Current or Ex-Partner: Patient unable to answer Emotionally Abused: Patient unable to answer Physically Abused: Patient unable to answer Sexually Abused: Patient unable to answer Housing Instability: Patient Unable To Answer (05/09/2024) Housing Instability Housing Instability: Patient unable to answer Temp: [36.7 C (98 F)-36.9 C (98.4 F)] 36.7 C (98 F) Pulse: [75-112] 98 Resp: [4-32] 15 BP: (117-168)/(63-85) 163/77 Arterial Line BP: (136-168)/(50-60) 136/53 SpO2: [89 %-97 %] 97 % O2 Device: None (Room air) O2 Device: None (Room air) Physical Exam General: Awake, alert and oriented x3, in pain but no acute distress HENT: Head atraumatic, normocephalic, external ears and nose are normal Eyes: Conjunctivae clear, non-icteric, EOMI Pulmonary: Regular, non-labored respirations, without use of accessory muscles, no stridor, saturating well on nasal cannula Cardiovascular: Normal rate and regular rhythm, radial pulses 2+, non-edematous x4 extremities, hypertensive Abdomen: Mildly distended, midline incision with wound VAC place, drain in place on the right abdomen, mildly tender Musculoskeletal: Range of motion grossly normal x4 extremities, no deformity x4 extremities Neurological: CN 2-12 grossly intact, sensation grossly intact Skin: Warm, dry, without jaundice Ventilator Not at this time, he is on room air Results from last 3 days Lab Units 05/12/2432005/11/2420905/10/2418 05/10/2432105/10/2420905/09/24184405/09/24 0921 BUN mg/dL 33* 28* -- -- 45* 37* -- CREATININE mg/dL 3.39* 3.04* -- -- 3.77* 3.22* -- POC CREATININE mg/dL -- -- -- -- -- -- ORDERED IN ERROR POTASSIUM mmol/L 3.8 4.1 5.5* 6.2* 6.2* 5.0 -- POC POTASSIUM mmol/L -- -- -- -- -- -- 4.9 CO2 mmol/L 24 -- -- 20* 23 -- CHLORIDE mmol/L 103 101 -- -- 108 109 -- MAGNESIUM mg/dL 2.2 2.1 -- -- 2.5 2.6 -- AST U/L 33 73* -- -- 156* 173* -- ALT U/L 84* 153* -- -- 219* 189* -- ALK PHOS U/L 78 78 -- -- 100 109 -- Results from last 3 days Lab Units 05/09/24184405/09/24 0923 PORTABLE INR -- 1.1 INR 1.1 -- PROTIME sec 13.1 -- Results from last 3 days Lab Units 05/12/24 0321 05/11/24 0210 05/10/24 1105 05/10/24 0210 05/09/24 2300 05/09/24 1845 05/09/24 0921 WBC X10E9/L 8.5 9.2 -- 11.8* -- 12.0* -- HEMOGLOBIN g/dL 9.7* 9.8* 10.5* 10.8* 11.3* 11.5* -- POC HEAMTOCRIT % -- -- -- -- -- -- 33* HEMATOCRIT % 27.3* 27.9* 30.5* 31.6* 33.4* 33.3* -- PLATELETS X10E9/L 148* 155 -- 171 -- 185 -- MCV fL 94 94 -- 95 -- 94 -- MCH pg 33.2 33.2 -- 32.4 -- 32.6 -- MCHC g/dL 35.5 35.3 -- 34.2 -- 34.7 -- RDW % 13.1 13.5 -- 13.5 -- 13.5 -- MONO ABS MAN X10E9/L -- -- -- -- -- 0.2 -- EOS ABS AUTO X10E9/L 0.4 0.1 -- 0.0 -- -- -- Microbiology Results No results found for the last 168 hours. Glucose Results from last 7 days Lab Units 05/12/24 0344 05/12/2432005/11/24 2346 05/11/24 2002 05/11/24 1622 05/11/24 1201 05/11/24 0730 05/11/24 0440 05/11/24 0210 05/11/24 0029 05/10/24202705/10/24 1702 BEDSIDE GLUCOSE mg/dL 164* -- 156* 124* 139* 199* 182* 185* -- 170* 146* 137* GLUCOSE mg/dL -- 160* -- -- -- -- -- -- 181* -- -- -- I/O last 3 completed shifts: In: 946.4 [P.O.:240; I.V.:402; NG/GT:240; IV Piggyback:64.4] Out: 945 [Urine:765; Drains:180] acetaminophen, 1,000 mg, oral, Q6H DALIA carvediloL, 25 mg, oral, BID famotidine, 20 mg, intravenous, Q48H heparin (porcine), 5,000 Units, subcutaneous, Q8H DALIA insulin lispro, 2-10 Units, subcutaneous, Q4H metoclopramide, 5 mg, intravenous, Q12H sevelamer carbonate, 800 mg, oral, TID with meals sodium chloride, 10 mL, intravenous, Q96H sodium chloride, 10 mL, intravenous, Q96H sodium citrate, 1.6 mL, intravenous, Q96H sodium citrate, 1.7 mL, intravenous, Q96H sodium chloride 0.9 %, 3 mL/hr, Last Rate: 3 mL/hr (05/11/24 0629) Microbiology Results No results found for the last 168 hours. Lines/Drains Hemodialysis Catheter Double 07/27/23 Cuffed Right Internal Jugular (Active) Precautions Standard precautions;Hand hygiene;Gloves 05/09/241829 Lumen 1 Red 05/09/241829 Lumen 1 Status Other (Comment) 05/09/241829 Lumen 2 Blue 05/09/241829 Lumen 2 Status Other (Comment) 05/09/241829 HD Status Citrate Locked 05/09/241829 Site Assessment Clean;Dry;Intact 05/09/241829 Site Condition No complications 05/09/241829 Dressing Type Occlusive;Transparent with CHG gel 05/09/241829 Dressing Status Clean;Dry;Intact 05/09/241829 Line Necessity Dialysis 05/09/241829 Line Necessity Reviewed With cc 05/09/241829 Patient tolerance of dressing change Tolerated well 05/09/241829 Dressing Type Occlusive 05/09/241829 Peripheral IV 05/09/24 Posterior;Right Hand (Active) Line Status Saline locked 05/09/241829 Site Assessment Clean;Intact;Dry 05/09/241829 Dressing Type Occlusive;Transparent 05/09/241829 Dressing Status Clean;Dry;Intact 05/09/241829 Peripheral IV 05/09/24 Right Forearm (Active) Line Status Saline locked 05/09/241829 Site Assessment Clean;Dry;Intact 05/09/241829 Dressing Type Occlusive;Transparent 05/09/241829 Dressing Status Clean;Dry;Intact 05/09/241829 Closed/Suction Drain 05/09/24 1 Left RLQ (Active) Drain/Tube Status To bulb suction 05/09/241829 Site Assessment Sutured 05/09/241829 Drain Securement Sutured 05/09/241829 Dressing Type Open to air (none) 05/09/241829 Drainage Appearance Bloody 05/09/241829 Negative Pressure Wound Therapy 05/09/24 Abdomen (Active) Assessed: Compressed 05/09/241829 Cycle Continuous 05/09/241829 Intensity Low 05/09/241829 Dressing Type Other (Comment) 05/09/241829 Dressing Status Clean;Dry;Intact 05/09/241829 Drainage Amount None 05/09/241829 NG/OG Tube 05/09/24 Cortrak Right nostril (Active) Securement Method Securing device (Describe) 04/11/24 0002 Urinary Catheter 05/09/24 Double-lumen (Active) Catheter Status Patent 05/09/241829 Site Assessment Clean 05/09/241829 Collection Container Standard drainage bag/container 05/09/241829 Securement Method Securing device (Describe) 05/09/241829 Reason for Continuing Physician order 05/09/241829 Urine Color Yellow/straw 05/09/241829 Urine Appearance Clear 05/09/241829 Arterial Line 05/09/24 Right Radial (Active) Line Status Pulsatile blood flow 05/09/241829 Line Interventions Zeroed and calibrated;Leveled;Connections checked and tightened;Pressure bag maintained;Armboard;Flushed per protocol;Line pulled back 05/09/242019 Waveform Appropriate;Square wave test performed 05/09/242019 Site Assessment Clean;Dry;Intact 05/09/241829 Dressing Type Occlusive;Transparent 05/09/241829 Dressing Status Clean;Dry;Intact 05/09/241829 Color/Movement/Sensation Capillary refill less than 3 sec 05/09/241829 Patient Tolerance of Line Care Tolerated well 05/09/241829 Line Necessity Invasive hemodynamic monitoring 10/16/24 1830 Line Necessity Reviewed With cc 05/09/24 1830 ACTIVE PROBLEM LIST: 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 male who was found to have pancreatic neck adenocarcinoma and underwent open central pancreatectomy converted to Whipple procedure on 05/09/2024. His course of recovery in the ICU has been stable other than hyperkalemia corrected with medical management and hemodialysis. Nephrology is following the patient and managing he has ESRD/hemodialysis, planning to do hemodialysis today 05/12/24. 1. Neuro Hospital Meds: Analgesia: Acetaminophen, oxycodone, Dilaudid Other: Home Meds: Alprazolam PMH: Anxiety PSH: 2. Pulmonary Breathing Support: None, breathing room air Settings: - SpO2: 97% Continuous pulse oximetry Hospital Meds: Home Meds: PMH: 42 pack year former smoker PSH: Encourage IS use and deep breathing 3. Cardiovascular Hemodynamics: RRR Hypertensive Pressors: None Goal MAP >65 Continuous cardiac monitoring Cardiology consult pending Troponin 38 >> 33 Cardiology consulted on 05/10/24 for concern of STEMI on EKG.Based on their assessment: EKG reviewed with Dr. Bennett. EKG is not a STEMI and is c/w LVH, similar to prior EKG 04/26/24. HS troponin only 38. No further recommendations . Hospital Meds: Labetalol PRN, Hydralazine PRN, Carvedilol 25mg BD, nifedipine Home Meds: Lipitor 40 mg, Coreg 25 mg b.i.d., aspirin Cardiology clearance preoperatively: Last nuclear stress scan on 11/16/2023, EF 65%, no ischemic changes noted, no definite ischemia noted PMH: 4.3 cm asymptomatic AAA, HTN, HLD, CAD, hypertrophic cardiomyopathy (echo 2022 LVEF 55-60%, suggestive of hypertrophic cardiomyopathy) PSH: Cardiac catheterization in 2007 with reported 100% occlusion of an unnamed vessel Code Status: Full 4. GI Pancreatic neck adenocarcinoma status post open central pancreatectomy converted to Whipple procedure 05/09/2024 Diet: Clear liquids PO and Cortrak tube in place, currently running at 20ml/hr; will defer tube feed management to primary team Advancing tube feeds Bowel Function: Monitoring Results from last 3 days Lab Units 05/12/24 0321 05/11/24 0210 05/10/24 0210 05/09/24 1845 05/09/24 1618 05/09/24 1455 05/09/24 1259 AST U/L 33 73* 156* < > -- -- -- ALT U/L 84* 153* 219* < > -- -- -- LACTATE mmol/L -- -- -- -- 1.8 0.7 0.5 < > = values in this interval not displayed. Hospital Meds: Sarah Huitron Home Meds: PMH: Peptic ulcer disease PSH: Cholecystectomy 5. Renal/Genitourinary ESRD on hemodialysis, nephrology following and managing, awaiting hemodialysis today Electrolytes: Results from last 3 days Lab Units 05/12/24 0321 05/11/24 0210 05/10/24 0718 05/10/24 0322 05/10/24 0210 SODIUM mmol/L 137 134 -- -- 138 CHLORIDE mmol/L 103 101 -- -- 108 POTASSIUM mmol/L 3.8 4.1 5.5* < > 6.2* CO2 mmol/L 24 22 -- -- 20* BUN mg/dL 33* 28* -- -- 45* CREATININE mg/dL 3.39* 3.04* -- -- 3.77* MAGNESIUM mg/dL 2.2 2.1 -- -- 2.5 PHOSPHORUS mg/dL 2.7 3.8 -- -- 4.3 < > = values in this interval not displayed. Will replace electrolytes PRN per ICU protocol Fluid Balance: IV Fluids: - Tube feeds: 300 UOP/24 H: 210 Net Fluid/24H: 210 Intake/Output Summary (Last 24 hours) at 05/12/2024 0609 Last data filed at 05/12/2024 0600 Gross per 24 hour Intake 676.36 ml Output 330 ml Net 346.36 ml Net Fluid Since Admission: Net IO Since Admission: 1,659.4 mL [05/12/24 0609] Strict monitoring of Ins and Outs Hospital Meds: Home Meds: Sevelamer, Bumex PMH: ESRD on HD, right renal cell carcinoma PSH: Left upper extremity brachiocephalic AV fistula, open partial right nephrectomy 6. Heme Labs: Results from last 3 days Lab Units 05/12/24 0321 05/11/24 0210 05/10/24 1105 05/10/24 0210 05/09/24 2300 05/09/24 1845 05/09/24 0923 0000 HEMOGLOBIN g/dL 9.7* 9.8* 10.5* 10.8* < > 11.5* -- -- PLATELETS X10E9/L 148* 155 -- 171 -- 185 -- < > PORTABLE INR -- -- -- -- -- -- 1.1 -- INR -- -- -- -- -- 1.1 -- -- < > = values in this interval not displayed. Type and Screen: A Blood Products Administered: None Will continue to monitor hgb and transfuse PRN 7. ID Tmax/24H: Temp (24hrs), Av.8 C (98.2 F), Min:36.7 C (98 F), Max:36.9 C (98.4 F) Labs: Results from last 3 days Lab Units 05/12/24 0321 05/11/24 0210 05/10/24 0210 WBC X10E9/L 8.5 9.2 11.8* Hospital Meds: Antibiotics: No current antibiotics; Zosyn (05/10 - 05/11) Continue to monitor for signs of infection 8. Endocrine Results from last 3 days Lab Units 05/12/24 0344 05/12/24 0321 05/11/24 2346 BEDSIDE GLUCOSE mg/dL 164* -- 156* GLUCOSE mg/dL -- 160* -- Goal Blood Glucose <180 mg/dL Hospital Meds: Sliding scale insulin 2-10 units Q 4 Home Meds: Levothyroxine, metformin, glimepiride PMH: Hypothyroidism, type 2 diabetes mellitus PSH: 9. Musculoskeletal PMH: PSH: PT/OT when able 10. Prophylaxis Respiratory: Encourage IS use and deep breathing GI: Pepcid DVT: SCD Cuffs, SQH 11. LDA Hemodialysis Catheter Double 07/27/23 Cuffed Rt Internal Jugular Peripheral IV 05/09/24 Posterior;Right Hand Closed/Suction Drain 05/09/24 1 Left RLQ NG/OG Tube 05/09/24 Cortrak Right nostril Negative Pressure Wound Therapy 05/09/24 Abdomen Dispo: Improving, remains in SICU Elizabeth Winters MD PGY1 UROLOGY General Surgery 05/12/2024 Cosigned by Kong Alvarado MD at 05/12/2024 10:26 AM EDT Associated attestation - Kong Alvarado MD - 05/12/2024 10:26 AM EDT Attending Attestation: I saw the patient. I participated and was physically present during the critical/kurtz portions of the service. I was directly involved in the management and treatment plan of the patient. I reviewed the resident's note. Additional Notes/Findings: Clinically unchanged. Patient with transfer orders Images from the original note were not included. NEPHROLOGY PROGRESS NOTE Assessment End-stage renal disease on hemodialysis Tuesday currently dialyzing via right IJ tunneled catheter, patient does have a left upper extremity AV fistula which has now matured will be working on using the access as outpatient. 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 Hemodynamically stable. On room air. Tolerated dialysis yesterday with 1 L removed. Problem List End-stage renal disease on hemodialysis Tuesday dialyzing at . renal [facility]. End-stage renal disease secondary to postoperative acute tubular necrosis along with loss of renal mass with partial nephrectomy of the right solitary kidney, left kidney is atrophic. Initiated on hemodialysis 05/23/2023. Dialyzing via right upper extremity AV fistula. Previous renal workup June 2023 showed SPEP pending, PIA pending, Anca panel pending, rheumatoid factor less than 10, C3 and C4 were unremarkable, hepatitis panel was nonreactive. Urinalysis from June 2023 showed 300 mg/dL protein with 118 RBCs and 20 wbc's per high-power field with a protein to creatinine ratio of 4.7 grams/gram. Pancreatic adenocarcinoma status post Whipple procedure with ligament flap performed 05/09/2024 Hypertension Diabetes mellitus type 2 Right renal midpole mass 3.4 cm, biopsy 04/01/2023 showing clear cell carcinoma. Right nephrectomy on July 21, 2023. 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 Lombardi Dyslipidemia Cholecystectomy Physical Exam Admission Weight: Weight: 68.5 kg (151 lb 0.2 oz) I/O last 3 completed shifts: In: 1334.4 [I.V.:964.2; NG/GT:30; IV Piggyback:340.2] Out: 1180 [Urine:870; Drains:310] Weight change: Wt Readings from Last 3 Encounters: 05/09/24 68.5 kg (151 lb 0.2 oz) 04/25/24 68.5 kg (151 lb 0.2 oz) 04/16/24 69.4 kg (153 lb) Vitals: Vitals: 05/11/24 0700 05/11/24 0716 05/11/24 0755 05/11/24 0800 BP: 145/66 117/68 Pulse: 82 91 94 83 Resp: 12 11 (!) 7 Temp: 36.8 C (98.2 F) TempSrc: Oral SpO2: 93% 93% 92% 93% Weight: Height: General: Alert, oriented x 3 and in no obvious distress Psychiatric: Has a normal mood and affect. HEENT: Head normocephalic. Eyes: Conjunctivae and EOM are normal. Pupils are equal, round and reactive to light. Cardiovascular: Normal rate, regular rhythm and normal heart sounds. No JVD. Pulmonary/Chest: Air entry bilaterally equal. No wheezes or rales. Abdominal: Soft, bowel sounds are normal and there was no tenderness rebound or guarding. Musculoskeletal: Normal range of motion. No tenderness. Neurological: No obvious deficits. Skin: No rash noted. Extremities: No edema Access: Right IJ tunneled catheter, left upper extremity AV fistula positive thrill and bruit Meds: Current Meds: acetaminophen, 1,000 mg, oral, Q6H DALIA carvediloL, 25 mg, oral, BID famotidine, 20 mg, intravenous, Q48H heparin (porcine), 5,000 Units, subcutaneous, Q8H DALIA insulin lispro, 2-10 Units, subcutaneous, Q4H metoclopramide, 5 mg, intravenous, Q12H sevelamer carbonate, 800 mg, oral, TID with meals sodium chloride, 10 mL, intravenous, Q96H sodium chloride, 10 mL, intravenous, Q96H sodium citrate, 1.6 mL, intravenous, Q96H sodium citrate, 1.7 mL, intravenous, Q96H Continuous Infusions: sodium chloride 0.9 %, 3 mL/hr, Last Rate: 3 mL/hr (05/11/24 0629) Laboratory Studies Results from last 7 days Lab Units 05/11/2420905/10/24 0718 05/10/24 0322 05/10/2420905/09/24 1845 SODIUM mmol/L 134 -- -- 138 141 POTASSIUM mmol/L 4.1 5.5* 6.2* 6.2* 5.0 CHLORIDE mmol/L 101 -- -- 108 109 CO2 mmol/L 22 -- -- 20* 23 BUN mg/dL 28* -- -- 45* 37* CREATININE mg/dL 3.04* -- -- 3.77* 3.22* CALCIUM mg/dL 8.8 -- -- 8.6 8.4* PHOSPHORUS mg/dL 3.8 -- -- 4.3 3.6 MAGNESIUM mg/dL 2.1 -- -- 2.5 2.6 Results from last 7 days Lab Units 05/11/24 0210 05/10/24 1105 05/10/24 0210 05/09/24 2300 05/09/24 1845 WBC X10E9/L 9.2 -- 11.8* -- 12.0* HEMOGLOBIN g/dL 9.8* 10.5* 10.8* < > 11.5* HEMATOCRIT % 27.9* 30.5* 31.6* < > 33.3* PLATELETS X10E9/L 155 -- 171 -- 185 < > = values in this interval not displayed. Results from last 7 days Lab Units 05/11/24 0210 05/10/24 0210 05/09/24 1845 MAGNESIUM mg/dL 2.1 2.5 2.6 Lab Results Component Value Date CALCIUM 8.8 05/11/2024 Lab Results Component Value Date IRON 35 (L) 05/10/2024 TIBC 244 (L) 05/10/2024 FERRITIN 1,159 (H) 05/10/2024 Please contact me at [phone] (Office) or [phone] (Answering service) with any questions. Kevin Rosario DO [facility] This note was created with the assistance of a speech-recognition program. Although the intention is to generate a document that actually reflects the content of the visit, no guarantees can be provided that every mistake has been identified and corrected by editing. [facility] Academic Critical Care Consultation Name: Zev Crystal Date: 05/11/2024 Length of Stay: 2 day(s) Chief Complaint: No chief complaint on file. History of Present Illness: Zev Crystal is a 68 y.o. 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 Last MRCP demonstrated mild diffuse pancreatitis with edematous change, marked dilation of pancreatic duct with some narrowing in the pancreatic neck region for which he underwent an EUS on 04/04/2024 which was highly suspicious for main duct IPMN, cytology was difficult to interpret due to gut contamination thus it was sent to [facility] where an independent pathologist agreed as well that it was gut contamination. Due to the patient's highly suspicious imaging findings and previous history of cancer, the decision was made to offer a possible central pancreatectomy versus Whipple versus distal pancreatectomy with splenectomy. The patient had an exploratory laparotomy with intraoperative ultrasound of the pancreas, due to the proximal neck location of the tumor a central pancreatectomy was pursued. Frozen section revealed a positive proximal margin thus it was transitioned to a standard Whipple. The patient was extubated in the OR and sent to the SICU in hemodynamically stable condition. Patient was seen and examined. He was resting comfortably. Denied any complaints. He was mildly hypertensive for which he received labetalol. Prevena wound VAC was in place over his incision. PMH ESRD on HD, T2DM, HTN, hypothyroidism, HLD, PUD, 42 PY former smoker PSH open partial nephrectomy for R RCC, cholecystectomy, LUE AVF Home medication: Lipitor 40 mg, Bumex 1 mg, Coreg 25 mg b.i.d., glimepiride, levothyroxine, sevelamer, alprazolam, metformin Interval history: No acute events overnight. Patient endorsing pain this morning. Remained vitally stable. Past Medical History: Diagnosis Date AAA (abdominal aortic aneurysm) [place] monitoring Anemia received iron infusions Anxiety xanax prn Arthritis CKD (chronic kidney disease) stage 4, GFR 15-29 ml/min [place] 06/2023 Coronary artery disease patient states 1 artery occuluded, no stents DDD (degenerative disc disease), lumbar Dental disease missing tooth front Diabetes mellitus type 2, controlled ([facility] Dialysis patient ([facility]) Claudio Campoverde Sat- Renal Atkinson Essential hypertension 02/23/2018 HL (hearing loss) hearing aid lt ear, deaf right ear Hypothyroidism Mixed hyperlipidemia 02/23/2018 Nicotine dependence 02/23/2018 Pancreatic neoplasm Pancreatitis Peptic ulceration when he was younger Renal cell carcinoma ([facility]) right, left kidney atrophied Skin cancer BCC/SCC Varicella 03/2024 shingles Visual impairment glasses prn Past Surgical History: Procedure Laterality Date BIOPSY MASS 04/01/2023 right kidney BRACHIAL CEPHALIC ARTERIOVENOUS FISTULA Left 01/11/2024 Performed by Zac Lombardi MD at [facility] CATHETERIZ[facility] 2004 2007 NEW [facility] CHOLECYSTECTOMY 2005 COLONOSCOPY 2012 ENDOSCOPIC ULTRASOUND UPPER N/A 04/04/2024 Performed by Polly Reeder MD at [facility] ESOPHAGOGASTRODUODENOSCOPY DIAGNOSTIC N/A 04/04/2024 Performed by Polly Reeder MD at [facility] NASAL SINUS SURGERY 2003 cleaned out NEPHRECTOMY PARTIAL OPEN(BIOBANK) Right 07/21/2023 Performed by Mary Telles MD at [facility] SKIN BIOPSY Several times STRABISMUS SURGERY 1961 VASECTOMY WHIPPLE WITH INTRA OPERATIVE ULTRASOUND- BIOBANK N/A 05/09/2024 Performed by Jeffrey Mcfadden MD at [facility] ROS Constitutional: []fever, []chills, []fatigue, [x]unplanned weight change. HEENT: []head pain, []hearing changes, []vision changes, []sneezing, []sore throat. Neck: [] masses, []swelling, []pain. Respiratory: []cough, []shortness of breath. Cardiovascular: []chest pain, []palpitations. Gastrointestinal: [x]abdominal pain, []nausea, []vomiting, []diarrhea, []constipation, []hematochezia, []melena . Genitourinary: []dysuria,[] urgency, []change in frequency,[] hematuria. Endocrine: [] heat intolerance, []cold intolerance. Musculoskeletal: []myalgias, []arthralgias, []swelling. Neurological: []dizziness, []ight-headedness, []weakness, []numbness, []tingling. Skin: []color change, []easy bruising, []rashes, []new lesions. Immunologic: []adenopathy, []environmental allergies, []food allergies. Psychiatric: []anxiety, []sleep disturbance. Medications Prior to Admission Medication Sig Dispense Refill Last Dose/Taking ALPRAZolam (XANAX) 0.25 mg tablet Take 1 tablet (0.25 mg total) by mouth 3 (three) times a day as needed for anxiety. Other - as prescribed atorvastatin (LIPITOR) 40 mg tablet Take 1 tablet (40 mg total) by mouth nightly Indications: high cholesterol. 05/08/2024 bumetanide (BUMEX) 1 mg tablet Take 3 tablets (3 mg total) by mouth daily Indications: edema with defective kidney function. 05/08/2024 carvedilol (COREG) 25 mg tablet Take 1 tablet (25 mg total) by mouth in the morning and 1 tablet (25 mg total) in the evening. Take with meals. Indications: high blood pressure. 05/09/2024 Morning glimepiride (AMARYL) 2 mg tablet Take 1 tablet (2 mg total) by mouth every morning before breakfast Indications: type 2 diabetes mellitus. 05/08/2024 levothyroxine (SYNTHROID, LEVOTHROID) 50 MCG tablet Take 1 tablet (50 mcg total) by mouth in the morning. Indications: a condition with low thyroid hormone levels. 05/09/2024 Morning sevelamer (RENVELA) 800 mg tablet Take 1 tablet (800 mg total) by mouth in the morning and 1 tablet (800 mg total) at noon and 1 tablet (800 mg total) in the evening. Take with meals. Indications: renal osteodystrophy with hyperphosphatemia. 05/08/2024 metFORMIN (GLUCOPHAGE) 500 mg tablet Take 1 tablet (500 mg total) by mouth as needed (patient states he only occasionally takes this) Indications: prevention of type 2 diabetes mellitus. (Patient not taking: Reported on 05/09/2024) More than a month acetaminophen, 1,000 mg, oral, Q6H DALIA carvediloL, 25 mg, oral, BID famotidine, 20 mg, intravenous, Q48H heparin (porcine), 5,000 Units, subcutaneous, Q8H DALIA insulin lispro, 2-10 Units, subcutaneous, Q4H metoclopramide, 5 mg, intravenous, Q12H sevelamer carbonate, 800 mg, oral, TID with meals sodium chloride, 10 mL, intravenous, Q96H sodium chloride, 10 mL, intravenous, Q96H sodium citrate, 1.6 mL, intravenous, Q96H sodium citrate, 1.7 mL, intravenous, Q96H sodium chloride 0.9 %, 3 mL/hr, Last Rate: 3 mL/hr (05/11/24 0629) No Known Allergies Family History Problem Relation Age of Onset Lung cancer Mother Brain cancer Mother Heart disease Father Diabetes Sister Diabetes Brother Stroke Paternal Grandmother Heart attack Paternal Grandfather Early Paternal Grandfather 40 Diabetes Son Cancer Half Brother thyroid and pancreatic Anesthesia problems Neg Hx Bleeding Disorder Neg Hx Clotting disorder Neg Hx Prostate cancer Neg Hx Colon cancer Neg Hx Kidney cancer Neg Hx Thyroid cancer Neg Hx Social History Socioeconomic History Marital status: Tobacco Use Smoking status: Every Day Average packs/day: 1 pack/day for 41.6 years (41.6 ttl pk-yrs) Types: Cigarettes Start date: 07/25/1982 Passive exposure: Current Smokeless tobacco: Never Tobacco comments: Currently smoking 1/2ppd. Vaping Use Vaping status: Never Used Substance and Sexual Activity Alcohol use: No Drug use: Not Currently Types: Marijuana Sexual activity: Defer Other Topics Concern Caffeine Use Yes Social History Narrative Lives with . Worked at a [employer]. Has a dog in the home. Social Drivers of Health Food Insecurity: Patient Unable To Answer (05/09/2024) Hunger Screening Food Insecurity - Worry: Patient unable to answer Food Insecurity - Inability: Patient unable to answer Transportation Needs: Patient Unable To Answer (05/09/2024) PRAPARE - Transportation Lack of Transportation (Medical): Patient unable to answer Lack of Transportation (Non-Medical): Patient unable to answer Interpersonal Safety: Patient Unable To Answer (05/09/2024) Humiliation, Afraid, Rape, and Kick questionnaire Fear of Current or Ex-Partner: Patient unable to answer Emotionally Abused: Patient unable to answer Physically Abused: Patient unable to answer Sexually Abused: Patient unable to answer Housing Instability: Patient Unable To Answer (05/09/2024) Housing Instability Housing Instability: Patient unable to answer Temp: [36.7 C (98.1 F)-37.1 C (98.8 F)] 36.7 C (98.1 F) Pulse: [65-107] 84 Resp: [5-17] 13 BP: (125-151)/(62-82) 125/75 Arterial Line BP: (122-205)/(40-64) 143/45 SpO2: [91 %-100 %] 93 % O2 Device: None (Room air) O2 Flow Rate (L/min): [2 L/min] 2 L/min O2 Device: None (Room air) Physical Exam General: Awake, alert and oriented x3, in no acute distress, resting comfortably HENT: Head atraumatic, normocephalic, external ears and nose are normal Eyes: Conjunctivae clear, non-icteric, EOMI Pulmonary: Regular, non-labored respirations, without use of accessory muscles, no stridor, saturating well on nasal cannula Cardiovascular: Regular rate and rhythm, radial pulses 2+, non-edematous x4 extremities, hypertensive Abdomen: Soft, appropriately tender, non distended, midline incision prevena wound vac in place Musculoskeletal: Range of motion grossly normal x4 extremities, no deformity x4 extremities Neurological: CN 2-12 grossly intact, sensation grossly intact Skin: Warm, dry, without jaundice Ventilator Results from last 3 days Lab Units 05/11/2420905/10/24 0718 05/10/24 0322 05/10/2420905/09/24184405/09/24 0921 BUN mg/dL 28* -- -- 45* 37* -- CREATININE mg/dL 3.04* -- -- 3.77* 3.22* -- POC CREATININE mg/dL -- -- -- -- -- ORDERED IN ERROR POTASSIUM mmol/L 4.1 5.5* 6.2* 6.2* 5.0 -- POC POTASSIUM mmol/L -- -- -- -- -- 4.9 CO2 mmol/L 22 -- -- 20* 23 -- CHLORIDE mmol/L 101 -- -- 108 109 -- MAGNESIUM mg/dL 2.1 -- -- 2.5 2.6 -- AST U/L 73* -- -- 156* 173* -- ALT U/L 153* -- -- 219* 189* -- ALK PHOS U/L 78 -- -- 100 109 -- Results from last 3 days Lab Units 05/09/24184405/09/24 0923 PORTABLE INR -- 1.1 INR 1.1 -- PROTIME sec 13.1 -- Results from last 3 days Lab Units 05/11/2420905/10/24 1105 05/10/2420905/09/24 2300 05/09/24 18405/09/24 0921 WBC X10E9/L 9.2 -- 11.8* -- 12.0* -- HEMOGLOBIN g/dL 9.8* 10.5* 10.8* 11.3* 11.5* -- POC HEAMTOCRIT % -- -- -- -- -- 33* HEMATOCRIT % 27.9* 30.5* 31.6* 33.4* 33.3* -- PLATELETS X10E9/L 155 -- 171 -- 185 -- MCV fL 94 -- 95 -- 94 -- MCH pg 33.2 -- 32.4 -- 32.6 -- MCHC g/dL 35.3 -- 34.2 -- 34.7 -- RDW % 13.5 -- 13.5 -- 13.5 -- MONO ABS MAN X10E9/L -- -- -- -- 0.2 -- EOS ABS AUTO X10E9/L 0.1 -- 0.0 -- -- -- Microbiology Results No results found for the last 168 hours. Glucose Results from last 7 days Lab Units 05/11/24 0440 05/11/24 0210 05/11/24 0029 05/10/24 2028 05/10/24 1702 05/10/24 1124 05/10/24 0559 05/10/24 0422 05/10/24 0321 05/10/24 0210 05/10/24 0005 05/09/242015 BEDSIDE GLUCOSE mg/dL 185* -- 170* 146* 137* 101* 186* 251* 155* -- 162* 177* GLUCOSE mg/dL -- 181* -- -- -- -- -- -- -- 169* -- -- I/O last 3 completed shifts: In: 1334.4 [I.V.:964.2; NG/GT:30; IV Piggyback:340.2] Out: 1180 [Urine:870; Drains:310] acetaminophen, 1,000 mg, oral, Q6H DALIA carvediloL, 25 mg, oral, BID famotidine, 20 mg, intravenous, Q48H heparin (porcine), 5,000 Units, subcutaneous, Q8H DALIA insulin lispro, 2-10 Units, subcutaneous, Q4H metoclopramide, 5 mg, intravenous, Q12H sevelamer carbonate, 800 mg, oral, TID with meals sodium chloride, 10 mL, intravenous, Q96H sodium chloride, 10 mL, intravenous, Q96H sodium citrate, 1.6 mL, intravenous, Q96H sodium citrate, 1.7 mL, intravenous, Q96H sodium chloride 0.9 %, 3 mL/hr, Last Rate: 3 mL/hr (05/11/24 0629) Microbiology Results No results found for the last 168 hours. Lines/Drains Hemodialysis Catheter Double 07/27/23 Cuffed Right Internal Jugular (Active) Precautions Standard precautions;Hand hygiene;Gloves 05/09/241829 Lumen 1 Red 05/09/241829 Lumen 1 Status Other (Comment) 05/09/241829 Lumen 2 Blue 05/09/241829 Lumen 2 Status Other (Comment) 05/09/241829 HD Status Citrate Locked 05/09/241829 Site Assessment Clean;Dry;Intact 05/09/241829 Site Condition No complications 05/09/241829 Dressing Type Occlusive;Transparent with CHG gel 05/09/241829 Dressing Status Clean;Dry;Intact 05/09/241829 Line Necessity Dialysis 05/09/241829 Line Necessity Reviewed With cc 05/09/241829 Patient tolerance of dressing change Tolerated well 05/09/241829 Dressing Type Occlusive 05/09/241829 Peripheral IV 05/09/24 Posterior;Right Hand (Active) Line Status Saline locked 05/09/241829 Site Assessment Clean;Intact;Dry 05/09/241829 Dressing Type Occlusive;Transparent 05/09/241829 Dressing Status Clean;Dry;Intact 05/09/241829 Peripheral IV 05/09/24 Right Forearm (Active) Line Status Saline locked 05/09/241829 Site Assessment Clean;Dry;Intact 05/09/241829 Dressing Type Occlusive;Transparent 05/09/241829 Dressing Status Clean;Dry;Intact 05/09/241829 Closed/Suction Drain 05/09/24 1 Left RLQ (Active) Drain/Tube Status To bulb suction 05/09/241829 Site Assessment Sutured 05/09/241829 Drain Securement Sutured 05/09/241829 Dressing Type Open to air (none) 05/09/241829 Drainage Appearance Bloody 05/09/241829 Negative Pressure Wound Therapy 05/09/24 Abdomen (Active) Assessed: Compressed 05/09/241829 Cycle Continuous 05/09/241829 Intensity Low 05/09/241829 Dressing Type Other (Comment) 05/09/241829 Dressing Status Clean;Dry;Intact 05/09/241829 Drainage Amount None 05/09/241829 NG/OG Tube 05/09/24 Cortrak Right nostril (Active) Securement Method Securing device (Describe) 04/11/24 0002 Urinary Catheter 05/09/24 Double-lumen (Active) Catheter Status Patent 05/09/241829 Site Assessment Clean 05/09/241829 Collection Container Standard drainage bag/container 05/09/241829 Securement Method Securing device (Describe) 05/09/241829 Reason for Continuing Physician order 05/09/241829 Urine Color Yellow/straw 05/09/241829 Urine Appearance Clear 05/09/241829 Arterial Line 05/09/24 Right Radial (Active) Line Status Pulsatile blood flow 05/09/241829 Line Interventions Zeroed and calibrated;Leveled;Connections checked and tightened;Pressure bag maintained;Armboard;Flushed per protocol;Line pulled back 05/09/242019 Waveform Appropriate;Square wave test performed 05/09/242019 Site Assessment Clean;Dry;Intact 05/09/241829 Dressing Type Occlusive;Transparent 05/09/241829 Dressing Status Clean;Dry;Intact 05/09/241829 Color/Movement/Sensation Capillary refill less than 3 sec 05/09/241829 Patient Tolerance of Line Care Tolerated well 05/09/241829 Line Necessity Invasive hemodynamic monitoring 05/09/241829 Line Necessity Reviewed With cc 05/09/241829 ACTIVE PROBLEM LIST: 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 male who was found to have pancreatic neck adenocarcinoma and underwent open central pancreatectomy converted to Whipple procedure on 05/09/2024. 1. Neuro Hospital Meds: Analgesia: Ofirmev, Dilaudid Other: Home Meds: Alprazolam PMH: Anxiety PSH: 2. Pulmonary Breathing Support: Nasal cannula Settings: 2 L SpO2: 97% Continuous pulse oximetry Hospital Meds: Home Meds: PMH: 42 pack year former smoker PSH: Encourage IS use and deep breathing 3. Cardiovascular Hemodynamics: RRR Hypertensive Pressors: None Goal MAP >65 Continuous cardiac monitoring Cardiology consult pending Troponin 38 >> 33 Hospital Meds: Labetalol PRN, Hydralazine PRN Home Meds: Lipitor 40 mg, Coreg 25 mg b.i.d., aspirin Cardiology clearance preoperatively: Last nuclear stress scan on 11/16/2023, EF 65%, no ischemic changes noted, no definite ischemia noted PMH: 4.3 cm asymptomatic AAA, HTN, HLD, CAD, hypertrophic cardiomyopathy (echo 2022 LVEF 55-60%, suggestive of hypertrophic cardiomyopathy) PSH: Cardiac catheterization in 2007 with reported 100% occlusion of an unnamed vessel Code Status: Full 4. GI Pancreatic neck adenocarcinoma status post open central pancreatectomy converted to Whipple procedure 05/09/2024 Diet: Cortrak tube in place, will defer tube feed management to primary team Advancing tube feeds Bowel Function: Monitoring Results from last 3 days Lab Units 05/11/24 0210 05/10/24 0210 05/09/24 1845 05/09/24 1618 05/09/24 1455 05/09/24 1259 AST U/L 73* 156* 173* -- -- -- ALT U/L 153* 219* 189* -- -- -- LACTATE mmol/L -- -- -- 1.8 0.7 0.5 Hospital Meds: Sarah Huitron Home Meds: PMH: Peptic ulcer disease PSH: Cholecystectomy 5. Renal/Genitourinary ESRD on hemodialysis, consult nephrology, appreciate recommendations Electrolytes: Results from last 3 days Lab Units 05/11/24 0210 05/10/24 0718 05/10/24 0322 05/10/24 0210 05/09/24 1845 SODIUM mmol/L 134 -- -- 138 141 CHLORIDE mmol/L 101 -- -- 108 109 POTASSIUM mmol/L 4.1 5.5* 6.2* 6.2* 5.0 CO2 mmol/L 22 -- -- 20* 23 BUN mg/dL 28* -- -- 45* 37* CREATININE mg/dL 3.04* -- -- 3.77* 3.22* MAGNESIUM mg/dL 2.1 -- -- 2.5 2.6 PHOSPHORUS mg/dL 3.8 -- -- 4.3 3.6 Will replace electrolytes PRN per ICU protocol Fluid Balance: IV Fluids: UOP/24 H: 555 Net Fluid/24H: 1149 Intake/Output Summary (Last 24 hours) at 05/11/2024 0706 Last data filed at 05/11/2024 0629 Gross per 24 hour Intake 496.36 ml Output 695 ml Net -198.64 ml Net Fluid Since Admission: Net IO Since Admission: 1,449.4 mL [05/11/24 0706] Strict monitoring of Ins and Outs Hospital Meds: Home Meds: Sevelamer, Bumex PMH: ESRD on HD, right renal cell carcinoma PSH: Left upper extremity brachiocephalic AV fistula, open partial right nephrectomy 6. Heme Labs: Results from last 3 days Lab Units 05/11/24 02105/10/24 1105 05/10/24 0210 05/09/24 2300 05/09/24 1845 05/09/24 0923 HEMOGLOBIN g/dL 9.8* 10.5* 10.8* < > 11.5* -- PLATELETS X10E9/L 155 -- 171 -- 185 -- PORTABLE INR -- -- -- -- -- 1.1 INR -- -- -- -- 1.1 -- < > = values in this interval not displayed. Type and Screen: A Blood Products Administered: None Will continue to monitor hgb and transfuse PRN 7. ID Tmax/24H: Temp (24hrs), Av.8 C (98.3 F), Min:36.7 C (98.1 F), Max:37.1 C (98.8 F) Labs: Results from last 3 days Lab Units 05/11/24 02105/10/24 02105/09/24 1845 WBC X10E9/L 9.2 11.8* 12.0* Hospital Meds: Antibiotics: Zosyn (05/11-05/10) Continue to monitor for signs of infection 8. Endocrine Results from last 3 days Lab Units 05/11/24 0440 05/11/240 05/11/24 0029 BEDSIDE GLUCOSE mg/dL 185* -- 170* GLUCOSE mg/dL -- 181* -- Goal Blood Glucose <180 mg/dL Hospital Meds: Sliding scale insulin 2-10 units Q 4 Home Meds: Levothyroxine, metformin, glimepiride PMH: Hypothyroidism, type 2 diabetes mellitus PSH: 9. Musculoskeletal PMH: PSH: PT/OT when able 10. Prophylaxis Respiratory: Encourage IS use and deep breathing GI: Pepcid DVT: SCD Cuffs, SQH 11. LDA Cortrak PIV x2 Right IJ double-lumen hemodialysis catheter Cooper Prevena wound VAC Dispo: Improving, to remain in SICU Sushil Bryant MD SICU Resident, PGY-2 Cosigned by Kong Alvarado MD at 05/11/2024 12:08 PM EDT Associated attestation - Kong Alvarado MD - 05/11/2024 12:08 PM EDT Attending Attestation: I saw the patient. I participated and was physically present during the critical/kurtz portions of the service. I was directly involved in the management and treatment plan of the patient. I reviewed the resident's note. Additional Notes/Findings: Patient continues to do well. Transfer orders placed Images from the original note were not included. HEPATOBILIARY SURGERY PROGRESS NOTE SUBJECTIVE: No acute events overnight. Patient reports intermittent significant abdominal pain that is relieved with IV pain medication. He was able to tolerate limited clear liquid diet without nausea or vomiting. He has not passed flatus or had a bowel movement since the time of surgery. He was started on trickle tube feeds. He underwent hemodialysis yesterday. 140 cc serosanguineous output from the abdominal FARHAT drain. VITALS: Vitals: 05/11/24 0600 BP: Pulse: 84 Resp: Temp: SpO2: 93% I/O last 3 completed shifts: In: 1334.4 [I.V.:964.2; NG/GT:30; IV Piggyback:340.2] Out: 1180 [Urine:870; Drains:310] No intake/output data recorded. Physical Exam Constitutional: Appearance: He is not ill-appearing. HENT: Nose: Nose normal. Comments: Cortrak in place, placed intraoperatively Mouth/Throat: Mouth: Mucous membranes are moist. Eyes: Extraocular Movements: Extraocular movements intact. Cardiovascular: Rate and Rhythm: Normal rate. Pulses: Normal pulses. Pulmonary: Effort: Pulmonary effort is normal. No respiratory distress. Comments: Room air Abdominal: General: Abdomen is flat. There is no distension. Palpations: Abdomen is soft. Tenderness: There is abdominal tenderness (Appropriately tender to palpation). There is no guarding. Comments: FARHAT drain with serosanguineous output Musculoskeletal: General: Normal range of motion. Cervical back: Normal range of motion. Skin: General: Skin is warm. Comments: Midline incision with a Prevena system in place, functioning appropriately Neurological: General: No focal deficit present. Mental Status: He is alert and oriented to person, place, and time. LABS: Results from last 7 days Lab Units 05/11/24 0210 05/10/24 1105 05/10/24 0210 05/09/240 05/09/24 1845 WBC X10E9/L 9.2 -- 11.8* -- 12.0* HEMOGLOBIN g/dL 9.8* 10.5* 10.8* 11.3* 11.5* HEMATOCRIT % 27.9* 30.5* 31.6* 33.4* 33.3* PLATELETS X10E9/L 155 -- 171 -- 185 Results from last 7 days Lab Units 05/11/24 0440 05/11/24 0210 05/11/24 0029 05/10/24 2028 05/10/24 1702 05/10/24 1124 05/10/24 0718 05/10/24 0422 05/10/24 0322 05/10/24 0321 05/10/24 0210 05/09/24 2016 05/09/24 1845 05/09/24 0921 0000 POTASSIUM mmol/L -- 4.1 -- -- -- -- 5.5* -- 6.2* -- 6.2* -- 5.0 -- -- POC POTASSIUM mmol/L -- -- -- -- -- -- -- -- -- -- -- -- -- 4.9 -- CO2 mmol/L -- 22 -- -- -- -- -- -- -- -- 20* -- 23 -- -- BUN mg/dL -- 28* -- -- -- -- -- -- -- -- 45* -- 37* -- -- CREATININE mg/dL -- 3.04* -- -- -- -- -- -- -- -- 3.77* -- 3.22* -- -- POC CREATININE mg/dL -- -- -- -- -- -- -- -- -- -- -- -- -- ORDERED IN ERROR -- POC GLUCOSE mg/dL -- -- -- -- -- -- -- -- -- -- -- -- -- 94 -- BEDSIDE GLUCOSE mg/dL 185* -- 170* 146* 137* < > -- < > -- < > -- < > -- -- -- GLUCOSE mg/dL -- 181* -- -- -- -- -- -- -- -- 169* -- 160* -- < > < > = values in this interval not displayed. Results from last 7 days Lab Units 05/09/24 1845 05/09/24 0923 PORTABLE INR -- 1.1 INR 1.1 -- PROTIME sec 13.1 -- MEDICATIONS: acetaminophen, 1,000 mg, oral, Q6H DALIA carvediloL, 25 mg, oral, BID famotidine, 20 mg, intravenous, Q48H heparin (porcine), 5,000 Units, subcutaneous, Q8H DALIA insulin lispro, 2-10 Units, subcutaneous, Q4H metoclopramide, 5 mg, intravenous, Q12H sevelamer carbonate, 800 mg, oral, TID with meals sodium chloride, 10 mL, intravenous, Q96H sodium chloride, 10 mL, intravenous, Q96H sodium citrate, 1.6 mL, intravenous, Q96H sodium citrate, 1.7 mL, intravenous, Q96H sodium chloride 0.9 %, 3 mL/hr, Last Rate: 3 mL/hr (05/11/24 0629) IMAGING: X-ray abdomen ap 1 view Result Date: 05/10/2024 Abdomen single view Clinical history:NG tube placement enteric catheter placement and verification Comparison: None. Impression: Enteric catheter tip extends to the left mid abdomen and a somewhat unusual configuration which does not follow normal contours of the stomach or duodenum. Correlate with any prior abdominal bowel surgical history is recommended. This could be within a jejunal loop if a gastrojejunostomy has been performed. Finalized by Ga Stratton MD on 05/10/2024 12:55 PM ASSESSMENT: The patient is a 68 y.o. male with a pertinent medical history of end-stage renal disease on hemodialysis, type 2 diabetes, hypertension, hypothyroidism, hyperlipidemia, peptic ulcer disease, open partial nephrectomy for renal cell carcinoma who is now 2 Days Post-Op from to a standard Whipple with falciform ligament flap for pancreatic adenocarcinoma (identified on frozen section with positive proximal margin). Surgical pathology pending. Hyperkalemia, follow-up medical management. BNP elevated 566. Follow-up troponin 33 from 38. Cardiology reviewed EKG and not concerned for acute coronary syndrome. 140 mL serosanguinous drainage from FARHAT drain. PLAN: Diet: Tube feeding No tray-Continuous Tube feeding No Tray-Continuous; Nasojejunal feeding tube; Renal; 10; 0; 10 Gradually advance oral diet as tolerated. We will consider advancement of tube feeds as well. Critical care on board, appreciate recommendations Nephrology on board, appreciate recommendations. Patient received regularly scheduled hemodialysis Tuesday, , Tuesday. Physical therapy and occupational therapy Pain and nausea control p.r.n. oral Tylenol with Dilaudid for breakthrough. Transition to multimodal oral pain medication once patient demonstrates tolerance of oral diet Continue DVT prophylaxis. We will consider transfer out of the surgical ICU today. Desean Taylor MD PGY-3 Surgery Resident 05/11/24 Cosigned by Kylee Cao MD at 05/11/2024 12:11 PM EDT Associated attestation - Kylee Cao MD - 05/11/2024 12:11 PM EDT Attending Attestation: I saw the patient. I performed the critical/kurtz portions of the service. I was directly involved in the management and treatment plan of the patient. I reviewed the resident's note. Additional Notes/Findings: Agree with above. Not much PO intake yesterday so will keep on LCLD. ARBF Will advance tube feeds to 20 ml/hr OK to transfer to floor Kylee Cao MD Surgical Oncologist Hepatobiliary, Pancreas & Endocrine Surgery Images from the original note were not included. NEPHROLOGY HEMODIALYSIS NOTE Assessment End-stage renal disease on hemodialysis Tuesday currently dialyzing via right IJ tunneled catheter, patient does have a left upper extremity AV fistula which has now matured will be working on using the access as outpatient. Hyperkalemia, will correct with hemodialysis Pancreatic neck adenocarcinoma status post Whipple procedure performed 05/09/2024, surgical service following Hypertension, blood pressure currently goal will start Coreg Diabetes mellitus type 2 management per primary Anemia of chronic disease along with postoperative anemia, rule out iron deficiency Hyperphosphatemia, on Renvela Plan Hemodialysis today Continue TTS regimen Low-potassium diet Renal panel daily Check iron studies Strict I&Os Interval history Patient seen examined at bedside, tolerating hemodialysis. Ultrafiltration goal of 1 L tolerated. Dialyzing via right IJ tunnel catheter. Problem List End-stage renal disease on hemodialysis Tuesday dialyzing at [facility]. End-stage renal disease secondary to postoperative acute tubular necrosis along with loss of renal mass with partial nephrectomy of the right solitary kidney, left kidney is atrophic. Initiated on hemodialysis 05/23/2023. Dialyzing via right upper extremity AV fistula. Previous renal workup June 2023 showed SPEP pending, PIA pending, Anca panel pending, rheumatoid factor less than 10, C3 and C4 were unremarkable, hepatitis panel was nonreactive. Urinalysis from June 2023 showed 300 mg/dL protein with 118 RBCs and 20 wbc's per high-power field with a protein to creatinine ratio of 4.7 grams/gram. Pancreatic adenocarcinoma status post Whipple procedure with ligament flap performed 05/09/2024 Hypertension Diabetes mellitus type 2 Right renal midpole mass 3.4 cm, biopsy 04/01/2023 showing clear cell carcinoma. Right nephrectomy on July 21, 2023. 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 Lombardi Dyslipidemia Cholecystectomy Physical Exam Admission Weight: Weight: 68.5 kg (151 lb 0.2 oz) I/O last 3 completed shifts: In: 2663 [I.V.:2162.2; Blood:225; IV Piggyback:275.9] Out: 1015 [Urine:445; Drains:170; Blood:400] Weight change: Wt Readings from Last 3 Encounters: 05/09/24 68.5 kg (151 lb 0.2 oz) 04/25/24 68.5 kg (151 lb 0.2 oz) 04/16/24 69.4 kg (153 lb) Vitals: Vitals: 05/10/24 0945 05/10/24 1000 05/10/24 1015 05/10/24 1030 BP: Pulse: 85 93 88 83 Resp: (!) 9 11 11 11 Temp: TempSrc: SpO2: 98% 97% 97% 97% Weight: Height: General: Alert, oriented x 3 and in no obvious distress Psychiatric: Has a normal mood and affect. HEENT: Head normocephalic. Eyes: Conjunctivae and EOM are normal. Pupils are equal, round and reactive to light. Cardiovascular: Normal rate, regular rhythm and normal heart sounds. No JVD. Pulmonary/Chest: Air entry bilaterally equal. No wheezes or rales. Abdominal: Soft, bowel sounds are normal and there was no tenderness rebound or guarding. Musculoskeletal: Normal range of motion. No tenderness. Neurological: No obvious deficits. Skin: No rash noted. Extremities: No edema Access: Right IJ tunneled catheter, left upper extremity AV fistula positive thrill and bruit Meds: Current Meds: acetaminophen, 1,000 mg, oral, Q6H DALIA carvediloL, 12.5 mg, oral, BID famotidine, 20 mg, intravenous, Q48H insulin lispro, 2-10 Units, subcutaneous, Q4H metoclopramide, 5 mg, intravenous, Q12H piperacillin-tazobactam (ZOSYN) IV, 3.375 g, intravenous, Q12H sevelamer carbonate, 800 mg, oral, TID with meals sodium chloride, 10 mL, intravenous, Q96H sodium chloride, 10 mL, intravenous, Q96H sodium citrate, 1.6 mL, intravenous, Q96H sodium citrate, 1.7 mL, intravenous, Q96H Continuous Infusions: dextrose 5 % in water, 100 mL/hr sodium chloride 0.9 %, 10 mL/hr sodium chloride 0.9 %, 10 mL/hr sodium chloride 0.9 %, 10 mL/hr sodium chloride 0.9 %, 50 mL/hr, Last Rate: 50 mL/hr (05/10/24627) sodium chloride 0.9 %, 3 mL/hr, Last Rate: 3 mL/hr (05/10/24627) Laboratory Studies Results from last 7 days Lab Units 05/10/24 0718 05/10/24 0322 05/10/2420905/09/24184405/09/24184405/09/24920 SODIUM mmol/L -- -- 138 -- 141 -- POTASSIUM mmol/L 5.5* 6.2* 6.2* < > 5.0 -- POC POTASSIUM mmol/L -- -- -- -- -- 4.9 CHLORIDE mmol/L -- -- 108 -- 109 -- CO2 mmol/L -- -- 20* -- 23 -- BUN mg/dL -- -- 45* -- 37* -- CREATININE mg/dL -- -- 3.77* -- 3.22* -- POC CREATININE mg/dL -- -- -- -- -- ORDERED IN ERROR CALCIUM mg/dL -- -- 8.6 -- 8.4* -- PHOSPHORUS mg/dL -- -- 4.3 -- 3.6 -- MAGNESIUM mg/dL -- -- 2.5 -- 2.6 -- < > = values in this interval not displayed. Results from last 7 days Lab Units 05/10/2420905/09/24229905/09/241844 WBC X10E9/L 11.8* -- 12.0* HEMOGLOBIN g/dL 10.8* 11.3* 11.5* HEMATOCRIT % 31.6* 33.4* 33.3* PLATELETS X10E9/L 171 -- 185 Results from last 7 days Lab Units 05/10/2420905/09/241844 MAGNESIUM mg/dL 2.5 2.6 Lab Results Component Value Date CALCIUM 8.6 05/10/2024 Lab Results Component Value Date IRON 22 (L) 07/22/2023 TIBC 279 07/22/2023 FERRITIN 68 07/22/2023 Please contact me at [phone] (Office) or [phone] (Answering service) with any questions. Kevin Rosario DO [facility] This note was created with the assistance of a speech-recognition program. Although the intention is to generate a document that actually reflects the content of the visit, no guarantees can be provided that every mistake has been identified and corrected by editing. [facility] Department of Pharmacy Pharmacist to Physician Communication The dose of metoclopramide has been changed to 5 mg every 12 hours per the [facility] approved renal dosing guidelines, based on an estimated creatinine clearance is 18.7 mL/min (A) (by C-G formula based on SCr of 3.77 mg/dL (H)). Thank you, Karol Jimenes RPH Images from the original note were not included. HEPATOBILIARY SURGERY PROGRESS NOTE SUBJECTIVE: Patient seen and examined at bedside. Overall he states that he is doing well in his pain is well controlled. Denies flatus or bowel movements. Minimal nausea. No vomiting. Overnight cardiology was consulted for concern of ST-elevation myocardial infarction on EKG. However evaluated to be left ventricular hypertrophy with a high sensitivity troponin of 38. Patient reports that his dialysis schedule is Tuesday. VITALS: Vitals: 05/10/24 0712 BP: Pulse: 81 Resp: 13 Temp: SpO2: 97% I/O last 3 completed shifts: In: 2663 [I.V.:2162.2; Blood:225; IV Piggyback:275.9] Out: 1015 [Urine:445; Drains:170; Blood:400] No intake/output data recorded. Physical Exam Constitutional: Appearance: He is ill-appearing. HENT: Nose: Nose normal. Comments: Cortrak in place, placed intraoperatively Mouth/Throat: Mouth: Mucous membranes are moist. Eyes: Extraocular Movements: Extraocular movements intact. Cardiovascular: Rate and Rhythm: Normal rate. Pulses: Normal pulses. Pulmonary: Effort: Pulmonary effort is normal. No respiratory distress. Comments: O2 Device: Nasal cannula Abdominal: General: Abdomen is flat. There is no distension. Palpations: Abdomen is soft. Tenderness: There is abdominal tenderness (Appropriately tender to palpation). There is no guarding. Musculoskeletal: General: Normal range of motion. Cervical back: Normal range of motion. Skin: General: Skin is warm. Comments: Midline incision with a Prevena system in place, functioning appropriately Neurological: General: No focal deficit present. Mental Status: He is alert and oriented to person, place, and time. LABS: Results from last 7 days Lab Units 05/10/24 0210 05/09/24 23005/09/24184405/09/24 0921 WBC X10E9/L 11.8* -- 12.0* -- HEMOGLOBIN g/dL 10.8* 11.3* 11.5* -- POC HEAMTOCRIT % -- -- -- 33* HEMATOCRIT % 31.6* 33.4* 33.3* -- PLATELETS X10E9/L 171 -- 185 -- Results from last 7 days Lab Units 05/10/24 0559 05/10/24 0422 05/10/24 0322 05/10/24 0321 05/10/24 0210 05/10/24 0005 05/09/24 2016 05/09/24 18405/09/24 0921 POTASSIUM mmol/L -- -- 6.2* -- 6.2* -- -- 5.0 -- POC POTASSIUM mmol/L -- -- -- -- -- -- -- -- 4.9 CO2 mmol/L -- -- -- -- 20* -- -- 23 -- BUN mg/dL -- -- -- -- 45* -- -- 37* -- CREATININE mg/dL -- -- -- -- 3.77* -- -- 3.22* -- POC CREATININE mg/dL -- -- -- -- -- -- -- -- ORDERED IN ERROR POC GLUCOSE mg/dL -- -- -- -- -- -- -- -- 94 BEDSIDE GLUCOSE mg/dL 186* 251* -- 155* -- 162* < > -- -- GLUCOSE mg/dL -- -- -- -- 169* -- -- 160* -- < > = values in this interval not displayed. Results from last 7 days Lab Units 05/09/24 1845 05/09/24 0923 PORTABLE INR -- 1.1 INR 1.1 -- PROTIME sec 13.1 -- MEDICATIONS: acetaminophen, 1,000 mg, intravenous, Q6H famotidine, 20 mg, intravenous, Q48H insulin lispro, 2-10 Units, subcutaneous, Q4H piperacillin-tazobactam (ZOSYN) IV, 3.375 g, intravenous, Q12H sevelamer carbonate, 800 mg, oral, TID with meals dextrose 5 % in water, 100 mL/hr sodium chloride 0.9 %, 10 mL/hr sodium chloride 0.9 %, 10 mL/hr sodium chloride 0.9 %, 10 mL/hr sodium chloride 0.9 %, 50 mL/hr, Last Rate: 50 mL/hr (05/10/24627) sodium chloride 0.9 %, 3 mL/hr, Last Rate: 3 mL/hr (05/10/24627) [START ON 05/11/2024] sodium chloride 0.9 %, 250 mL IMAGING: No results found. ASSESSMENT: The patient is a 68 y.o. male with a pertinent medical history of end-stage renal disease on hemodialysis, type 2 diabetes, hypertension, hypothyroidism, hyperlipidemia, peptic ulcer disease, open partial nephrectomy for renal cell carcinoma who is now 1 Day Post-Op from to a standard Whipple with falciform ligament flap for pancreatic adenocarcinoma (identified on frozen section with positive proximal margin). Surgical pathology pending. Hyperkalemia, follow-up medical management. BNP elevated 566. Follow-up troponin 33 from 38. 170 mL serosanguinous drainage from FARHAT drain. PLAN: Diet: Adult diet NPO; Ice chips only Fluids: Continue gentle hydration Critical care on board, appreciate recommendations Nephrology on board, appreciate recommendations Physical therapy and occupational therapy Pain and nausea control p.r.n. Follow-up repeat troponin Evaluate for initiation of DVT chemoprophylaxis This patient will be seen and discussed with the attending surgeon, Dr. Mcfadden. Cristian Hunter MD General Surgery Resident, PGY-2 05/10/24 Cosigned by Jeffrey Mcfadden MD at 05/10/2024 3:30 PM EDT Associated attestation - Jeffrey Mcfadden MD - 05/10/2024 3:30 PM EDT Attending Attestation: I saw the patient. I participated and was physically present during the critical/kurtz portions of the service. I was directly involved in the management and treatment plan of the patient. I reviewed the resident's note. Additional Notes/Findings: Patient denied any nausea. Pain control is okay. Currently on dialysis. On exam wound VAC intact. FARHAT drain is serosanguineous. Labs showed a slightly decreased hemoglobin but we Rechecked In the afternoon it was stable. Therefore we started DVT prophylaxis. Tube feeds were started trickle rate. Out of bed to chair. Dialysis as per Nephrology. Limited amount of clears. Scheduled Reglan started. Okay to transfer out to floor bed needed. SICU Academic Critical Care Consultation Name: Zev Crystal Date: 05/10/2024 Length of Stay: 1 day(s) Chief Complaint: No chief complaint on file. History of Present Illness: Zev Crystal is a 68 y.o. 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 Last MRCP demonstrated mild diffuse pancreatitis with edematous change, marked dilation of pancreatic duct with some narrowing in the pancreatic neck region for which he underwent an EUS on 04/04/2024 which was highly suspicious for main duct IPMN, cytology was difficult to interpret due to gut contamination thus it was sent to [facility] where an independent pathologist agreed as well that it was gut contamination. Due to the patient's highly suspicious imaging findings and previous history of cancer, the decision was made to offer a possible central pancreatectomy versus Whipple versus distal pancreatectomy with splenectomy. The patient had an exploratory laparotomy with intraoperative ultrasound of the pancreas, due to the proximal neck location of the tumor a central pancreatectomy was pursued. Frozen section revealed a positive proximal margin thus it was transitioned to a standard Whipple. The patient was extubated in the OR and sent to the SICU in hemodynamically stable condition. Patient was seen and examined. He was resting comfortably. Denied any complaints. He was mildly hypertensive for which he received labetalol. Prevena wound VAC was in place over his incision. PMH ESRD on HD, T2DM, HTN, hypothyroidism, HLD, PUD, 42 PY former smoker PSH open partial nephrectomy for R RCC, cholecystectomy, LUE AVF Home medication: Lipitor 40 mg, Bumex 1 mg, Coreg 25 mg b.i.d., glimepiride, levothyroxine, sevelamer, alprazolam, metformin Interval history: Overnight patient stated he felt well. He was given insulin and Lokelma due to hyperkalemia of 6.2. Past Medical History: Diagnosis Date AAA (abdominal aortic aneurysm) ([facility] monitoring Anemia received iron infusions Anxiety xanax prn Arthritis CKD (chronic kidney disease) stage 4, GFR 15-29 ml/min ([facility] 06/2023 Coronary artery disease patient states 1 artery occuluded, no stents DDD (degenerative disc disease), lumbar Dental disease missing tooth front Diabetes mellitus type 2, controlled ([facility]) Dialysis patient ([facility]) Claudio Campoverde [facility] Essential hypertension 02/23/2018 HL (hearing loss) hearing aid lt ear, deaf right ear Hypothyroidism Mixed hyperlipidemia 02/23/2018 Nicotine dependence 02/23/2018 Pancreatic neoplasm Pancreatitis Peptic ulceration when he was younger Renal cell carcinoma ([facility]) right, left kidney atrophied Skin cancer BCC/SCC Varicella 03/2024 shingles Visual impairment glasses prn Past Surgical History: Procedure Laterality Date BIOPSY MASS 04/01/2023 right kidney BRACHIAL CEPHALIC ARTERIOVENOUS FISTULA Left 01/11/2024 Performed by Zac Lombardi MD at [facility] CATHETERIZATION 2004 2007 [facility] CHOLECYSTECTOMY 2005 COLONOSCOPY 2012 ENDOSCOPIC ULTRASOUND UPPER N/A 04/04/2024 Performed by Polly Reeder MD at [facility] ESOPHAGOGASTRODUODENOSCOPY DIAGNOSTIC N/A 04/04/2024 Performed by Polly Reeder MD at [facility] NASAL SINUS SURGERY 2003 cleaned out NEPHRECTOMY PARTIAL OPEN([facility]) Right 07/21/2023 Performed by Mary Telles MD at [facility] SKIN BIOPSY Several times STRABISMUS SURGERY 1961 VASECTOMY ROS Constitutional: []fever, []chills, []fatigue, [x]unplanned weight change. HEENT: []head pain, []hearing changes, []vision changes, []sneezing, []sore throat. Neck: [] masses, []swelling, []pain. Respiratory: []cough, []shortness of breath. Cardiovascular: []chest pain, []palpitations. Gastrointestinal: [x]abdominal pain, []nausea, []vomiting, []diarrhea, []constipation, []hematochezia, []melena . Genitourinary: []dysuria,[] urgency, []change in frequency,[] hematuria. Endocrine: [] heat intolerance, []cold intolerance. Musculoskeletal: []myalgias, []arthralgias, []swelling. Neurological: []dizziness, []ight-headedness, []weakness, []numbness, []tingling. Skin: []color change, []easy bruising, []rashes, []new lesions. Immunologic: []adenopathy, []environmental allergies, []food allergies. Psychiatric: []anxiety, []sleep disturbance. Medications Prior to Admission Medication Sig Dispense Refill Last Dose/Taking ALPRAZolam (XANAX) 0.25 mg tablet Take 1 tablet (0.25 mg total) by mouth 3 (three) times a day as needed for anxiety. Other - as prescribed atorvastatin (LIPITOR) 40 mg tablet Take 1 tablet (40 mg total) by mouth nightly Indications: high cholesterol. 05/08/2024 bumetanide (BUMEX) 1 mg tablet Take 3 tablets (3 mg total) by mouth daily Indications: edema with defective kidney function. 05/08/2024 carvedilol (COREG) 25 mg tablet Take 1 tablet (25 mg total) by mouth in the morning and 1 tablet (25 mg total) in the evening. Take with meals. Indications: high blood pressure. 05/09/2024 Morning glimepiride (AMARYL) 2 mg tablet Take 1 tablet (2 mg total) by mouth every morning before breakfast Indications: type 2 diabetes mellitus. 05/08/2024 levothyroxine (SYNTHROID, LEVOTHROID) 50 MCG tablet Take 1 tablet (50 mcg total) by mouth in the morning. Indications: a condition with low thyroid hormone levels. 05/09/2024 Morning sevelamer (RENVELA) 800 mg tablet Take 1 tablet (800 mg total) by mouth in the morning and 1 tablet (800 mg total) at noon and 1 tablet (800 mg total) in the evening. Take with meals. Indications: renal osteodystrophy with hyperphosphatemia. 05/08/2024 metFORMIN (GLUCOPHAGE) 500 mg tablet Take 1 tablet (500 mg total) by mouth as needed (patient states he only occasionally takes this) Indications: prevention of type 2 diabetes mellitus. (Patient not taking: Reported on 05/09/2024) More than a month acetaminophen, 1,000 mg, intravenous, Q6H famotidine, 20 mg, intravenous, Q48H insulin lispro, 2-10 Units, subcutaneous, Q4H piperacillin-tazobactam (ZOSYN) IV, 3.375 g, intravenous, Q12H sevelamer carbonate, 800 mg, oral, TID with meals dextrose 5 % in water, 100 mL/hr sodium chloride 0.9 %, 10 mL/hr sodium chloride 0.9 %, 10 mL/hr sodium chloride 0.9 %, 10 mL/hr sodium chloride 0.9 %, 50 mL/hr, Last Rate: 50 mL/hr (05/10/24627) sodium chloride 0.9 %, 3 mL/hr, Last Rate: 3 mL/hr (05/10/24627) No Known Allergies Family History Problem Relation Age of Onset Lung cancer Mother Brain cancer Mother Heart disease Father Diabetes Sister Diabetes Brother Stroke Paternal Grandmother Heart attack Paternal Grandfather Early Paternal Grandfather 40 Diabetes Son Cancer Half Brother thyroid and pancreatic Anesthesia problems Neg Hx Bleeding Disorder Neg Hx Clotting disorder Neg Hx Prostate cancer Neg Hx Colon cancer Neg Hx Kidney cancer Neg Hx Thyroid cancer Neg Hx Social History Socioeconomic History Marital status: Tobacco Use Smoking status: Every Day Average packs/day: 1 pack/day for 41.6 years (41.6 ttl pk-yrs) Types: Cigarettes Start date: 07/25/1982 Passive exposure: Current Smokeless tobacco: Never Tobacco comments: Currently smoking 1/2ppd. Vaping Use Vaping status: Never Used Substance and Sexual Activity Alcohol use: No Drug use: Not Currently Types: Marijuana Sexual activity: Defer Other Topics Concern Caffeine Use Yes Social History Narrative Lives with . Worked at a [employer]. Has a dog in the home. Social Drivers of Health Food Insecurity: Patient Unable To Answer (05/09/2024) Hunger Screening Food Insecurity - Worry: Patient unable to answer Food Insecurity - Inability: Patient unable to answer Transportation Needs: Patient Unable To Answer (05/09/2024) PRAPARE - Transportation Lack of Transportation (Medical): Patient unable to answer Lack of Transportation (Non-Medical): Patient unable to answer Interpersonal Safety: Patient Unable To Answer (05/09/2024) Humiliation, Afraid, Rape, and Kick questionnaire Fear of Current or Ex-Partner: Patient unable to answer Emotionally Abused: Patient unable to answer Physically Abused: Patient unable to answer Sexually Abused: Patient unable to answer Housing Instability: Patient Unable To Answer (05/09/2024) Housing Instability Housing Instability: Patient unable to answer Temp: [36.3 C (97.3 F)-36.8 C (98.3 F)] 36.8 C (98.2 F) Pulse: [65-97] 78 Resp: [10-20] 10 BP: (139-152)/(46-69) 152/46 Arterial Line BP: (129-176)/(43-61) 129/43 SpO2: [93 %-100 %] 97 % O2 Device: Nasal cannula O2 Flow Rate (L/min): [2 L/min] 2 L/min O2 Device: Nasal cannula Physical Exam General: Awake, alert and oriented x3, in no acute distress, resting comfortably HENT: Head atraumatic, normocephalic, external ears and nose are normal Eyes: Conjunctivae clear, non-icteric, EOMI Pulmonary: Regular, non-labored respirations, without use of accessory muscles, no stridor, saturating well on nasal cannula Cardiovascular: Regular rate and rhythm, radial pulses 2+, non-edematous x4 extremities, hypertensive Abdomen: Soft, appropriately tender, non distended, midline incision prevena wound vac in place Musculoskeletal: Range of motion grossly normal x4 extremities, no deformity x4 extremities Neurological: CN 2-12 grossly intact, sensation grossly intact Skin: Warm, dry, without jaundice Ventilator Results from last 3 days Lab Units 05/10/2432105/10/2420905/09/24184405/09/24 0921 BUN mg/dL -- 45* 37* -- CREATININE mg/dL -- 3.77* 3.22* -- POC CREATININE mg/dL -- -- -- ORDERED IN ERROR POTASSIUM mmol/L 6.2* 6.2* 5.0 -- POC POTASSIUM mmol/L -- -- -- 4.9 CO2 mmol/L -- 20* 23 -- CHLORIDE mmol/L -- 108 109 -- MAGNESIUM mg/dL -- 2.5 2.6 -- AST U/L -- 156* 173* -- ALT U/L -- 219* 189* -- ALK PHOS U/L -- 100 109 -- Results from last 3 days Lab Units 05/09/24184405/09/2423 PORTABLE INR -- 1.1 INR 1.1 -- PROTIME sec 13.1 -- Results from last 3 days Lab Units 05/10/2420905/09/24 23005/09/24184405/09/24 0921 WBC X10E9/L 11.8* -- 12.0* -- HEMOGLOBIN g/dL 10.8* 11.3* 11.5* -- POC HEAMTOCRIT % -- -- -- 33* HEMATOCRIT % 31.6* 33.4* 33.3* -- PLATELETS X10E9/L 171 -- 185 -- MCV fL 95 -- 94 -- MCH pg 32.4 -- 32.6 -- MCHC g/dL 34.2 -- 34.7 -- RDW % 13.5 -- 13.5 -- MONO ABS MAN X10E9/L -- -- 0.2 -- EOS ABS AUTO X10E9/L 0.0 -- -- -- Microbiology Results No results found for the last 168 hours. Glucose Results from last 7 days Lab Units 05/10/24 0559 05/10/24 0422 05/10/24 03205/10/2420905/10/24 0005 05/09/24201505/09/24 18405/09/24 0921 POC GLUCOSE mg/dL -- -- -- -- -- -- -- 94 BEDSIDE GLUCOSE mg/dL 186* 251* 155* -- 162* 177* -- -- GLUCOSE mg/dL -- -- -- 169* -- -- 160* -- I/O last 3 completed shifts: In: 1825 [I.V.:1600; Blood:225] Out: 530 [Urine:130; Blood:400] acetaminophen, 1,000 mg, intravenous, Q6H famotidine, 20 mg, intravenous, Q48H insulin lispro, 2-10 Units, subcutaneous, Q4H piperacillin-tazobactam (ZOSYN) IV, 3.375 g, intravenous, Q12H sevelamer carbonate, 800 mg, oral, TID with meals dextrose 5 % in water, 100 mL/hr sodium chloride 0.9 %, 10 mL/hr sodium chloride 0.9 %, 10 mL/hr sodium chloride 0.9 %, 10 mL/hr sodium chloride 0.9 %, 50 mL/hr, Last Rate: 50 mL/hr (05/10/24627) sodium chloride 0.9 %, 3 mL/hr, Last Rate: 3 mL/hr (05/10/24627) Microbiology Results No results found for the last 168 hours. Lines/Drains Hemodialysis Catheter Double 07/27/23 Cuffed Right Internal Jugular (Active) Precautions Standard precautions;Hand hygiene;Gloves 05/09/241829 Lumen 1 Red 05/09/241829 Lumen 1 Status Other (Comment) 05/09/241829 Lumen 2 Blue 05/09/241829 Lumen 2 Status Other (Comment) 05/09/241829 HD Status Citrate Locked 05/09/241829 Site Assessment Clean;Dry;Intact 05/09/241829 Site Condition No complications 05/09/241829 Dressing Type Occlusive;Transparent with CHG gel 05/09/241829 Dressing Status Clean;Dry;Intact 05/09/241829 Line Necessity Dialysis 05/09/241829 Line Necessity Reviewed With cc 05/09/241829 Patient tolerance of dressing change Tolerated well 05/09/241829 Dressing Type Occlusive 05/09/241829 Peripheral IV 05/09/24 Posterior;Right Hand (Active) Line Status Saline locked 05/09/241829 Site Assessment Clean;Intact;Dry 05/09/241829 Dressing Type Occlusive;Transparent 05/09/241829 Dressing Status Clean;Dry;Intact 05/09/241829 Peripheral IV 05/09/24 Right Forearm (Active) Line Status Saline locked 05/09/241829 Site Assessment Clean;Dry;Intact 05/09/241829 Dressing Type Occlusive;Transparent 05/09/241829 Dressing Status Clean;Dry;Intact 05/09/241829 Closed/Suction Drain 05/09/24 1 Left RLQ (Active) Drain/Tube Status To bulb suction 05/09/241829 Site Assessment Sutured 05/09/241829 Drain Securement Sutured 05/09/241829 Dressing Type Open to air (none) 05/09/241829 Drainage Appearance Bloody 05/09/241829 Negative Pressure Wound Therapy 05/09/24 Abdomen (Active) Assessed: Compressed 05/09/241829 Cycle Continuous 05/09/241829 Intensity Low 05/09/241829 Dressing Type Other (Comment) 05/09/241829 Dressing Status Clean;Dry;Intact 05/09/241829 Drainage Amount None 05/09/241829 NG/OG Tube 05/09/24 Cortrak Right nostril (Active) Securement Method Securing device (Describe) 04/11/24 0002 Urinary Catheter 05/09/24 Double-lumen (Active) Catheter Status Patent 05/09/241829 Site Assessment Clean 05/09/241829 Collection Container Standard drainage bag/container 05/09/241829 Securement Method Securing device (Describe) 05/09/241829 Reason for Continuing Physician order 05/09/241829 Urine Color Yellow/straw 05/09/241829 Urine Appearance Clear 05/09/241829 Arterial Line 05/09/24 Right Radial (Active) Line Status Pulsatile blood flow 05/09/241829 Line Interventions Zeroed and calibrated;Leveled;Connections checked and tightened;Pressure bag maintained;Armboard;Flushed per protocol;Line pulled back 05/09/242019 Waveform Appropriate;Square wave test performed 05/09/242019 Site Assessment Clean;Dry;Intact 05/09/241829 Dressing Type Occlusive;Transparent 05/09/241829 Dressing Status Clean;Dry;Intact 05/09/241829 Color/Movement/Sensation Capillary refill less than 3 sec 05/09/241829 Patient Tolerance of Line Care Tolerated well 05/09/241829 Line Necessity Invasive hemodynamic monitoring 05/09/241829 Line Necessity Reviewed With cc 05/09/241829 ACTIVE PROBLEM LIST: 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 male who was found to have pancreatic neck adenocarcinoma and underwent open central pancreatectomy converted to Whipple procedure on 05/09/2024. 1. Neuro Hospital Meds: Analgesia: Ofirmev, Dilaudid Other: Home Meds: Alprazolam PMH: Anxiety PSH: 2. Pulmonary Breathing Support: Nasal cannula Settings: 2 L SpO2: 97% Continuous pulse oximetry Hospital Meds: Home Meds: PMH: 42 pack year former smoker PSH: Encourage IS use and deep breathing 3. Cardiovascular Hemodynamics: RRR Hypertensive Pressors: None Goal MAP >65 Continuous cardiac monitoring Cardiology consult pending Troponin 38 > [facility] Meds: Labetalol PRN, Hydralazine PRN Home Meds: Lipitor 40 mg, Coreg 25 mg b.i.d., aspirin Cardiology clearance preoperatively: Last nuclear stress scan on 11/16/2023, EF 65%, no ischemic changes noted, no definite ischemia noted PMH: 4.3 cm asymptomatic AAA, HTN, HLD, CAD, hypertrophic cardiomyopathy (echo 2022 LVEF 55-60%, suggestive of hypertrophic cardiomyopathy) PSH: Cardiac catheterization in 2007 with reported 100% occlusion of an unnamed vessel Code Status: Full 4. GI Pancreatic neck adenocarcinoma status post open central pancreatectomy converted to Whipple procedure 05/09/2024 Diet: NPO except medications, Cortrak tube in place, will defer tube feed management to primary team Bowel Function: Awaited Results from last 3 days Lab Units 05/10/24 0210 05/09/24 1845 05/09/24 1455 05/09/24 1259 AST U/L 156* 173* -- -- ALT U/L 219* 189* -- -- LACTATE mmol/L -- -- 0.7 0.5 Hospital Meds: Sarah Dhaliwal Home Meds: PMH: Peptic ulcer disease PSH: Cholecystectomy 5. Renal/Genitourinary ESRD on hemodialysis, consult nephrology, appreciate recommendations Electrolytes: Results from last 3 days Lab Units 05/10/24 0322 05/10/2420905/09/24184405/09/24 09 SODIUM mmol/L -- 138 141 -- CHLORIDE mmol/L -- 108 109 -- POTASSIUM mmol/L 6.2* 6.2* 5.0 -- POC POTASSIUM mmol/L -- -- -- 4.9 CO2 mmol/L -- 20* 23 -- BUN mg/dL -- 45* 37* -- CREATININE mg/dL -- 3.77* 3.22* -- POC CREATININE mg/dL -- -- -- ORDERED IN ERROR MAGNESIUM mg/dL -- 2.5 2.6 -- PHOSPHORUS mg/dL -- 4.3 3.6 -- Will replace electrolytes PRN per ICU protocol Fluid Balance: IV Fluids: NS at 50 mL/hour UOP/24 H: 445 Net Fluid/24H: 1648 Intake/Output Summary (Last 24 hours) at 05/10/2024643 Last data filed at 05/10/2024 06 Gross per 24 hour Intake 2663.04 ml Output 1015 ml Net 1648.04 ml Net Fluid Since Admission: Net IO Since Admission: 1,648.04 mL [05/10/2444] Strict monitoring of Ins and Outs Hospital Meds: Home Meds: Claritza Rizvi PMH: ESRD on HD, right renal cell carcinoma PSH: Left upper extremity brachiocephalic AV fistula, open partial right nephrectomy 6. Heme Labs: Results from last 3 days Lab Units 05/10/2420905/09/24229905/09/24184405/09/24 0923 HEMOGLOBIN g/dL 10.8* 11.3* 11.5* -- PLATELETS X10E9/L 171 -- 185 -- PORTABLE INR -- -- -- 1.1 INR -- -- 1.1 -- Type and Screen: A Blood Products Administered: None Will continue to monitor hgb and transfuse PRN 7. ID Tmax/24H: Temp (24hrs), Av.6 C (97.9 F), Min:36.3 C (97.3 F), Max:36.8 C (98.3 F) Labs: Results from last 3 days Lab Units 05/10/24 0210 05/09/24 1845 WBC X10E9/L 11.8* 12.0* Hospital Meds: Antibiotics: Zosyn (05/11-05/10) Continue to monitor for signs of infection 8. Endocrine Results from last 3 days Lab Units 05/10/24 0559 05/10/24 0422 05/10/24 0321 BEDSIDE GLUCOSE mg/dL 186* 251* 155* Goal Blood Glucose <180 mg/dL Hospital Meds: Sliding scale insulin 2-10 units Q 4 Home Meds: Levothyroxine, metformin, glimepiride PMH: Hypothyroidism, type 2 diabetes mellitus PSH: 9. Musculoskeletal PMH: PSH: PT/OT when able 10. Prophylaxis Respiratory: Encourage IS use and deep breathing GI: Pepcid DVT: SCD Cuffs, hold chemical prophylaxis 11. LDA Cortrak PIV x2 Right IJ double-lumen hemodialysis catheter Cooper Prevena wound VAC Dispo: Critical, to remain in SICU Sushil Bryant MD SICU Resident, PGY-2 Cosigned by Kong Alvarado MD at 05/10/2024 11:27 AM EDT Associated attestation - Kong Alvarado MD - 05/10/2024 11:27 AM EDT Surgical Critical Care Attending: I spent 25 minutes providing critical care services and making complex medical decisions for this critically ill patient. This patient remains critically ill and requires constant monitoring and titration of care by critical care technical services consultant. Failure to do so may result in further organ system failure with imminent deterioration or . This time includes examining the patient, reviewing patient data, discussions with other providers, and speaking to family members. This does not include time spent performing any procedures. 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 Currently undergoing dialysis KONG ALVARADO MD Trauma/Surgical Critical Care 05/10/2024 11:26 AM [facility] Department of Pharmacy Pharmacist to Physician Communication The dose of piperacillin/tazobactam for intra-abdominal infection has been changed to 3.375 g IV every 12 hours infused over 4 hours starting 8 hours after the loading dose per the [facility] approved renal dosing guidelines, based on an CrCl cannot be calculated (This lab value cannot be used to calculate CrCl because it is not a number: ORDERED IN ERROR). CrCl calculated to be < 20 ml/min Thank you, Danuta Jaquez [facility] Department of Pharmacy Pharmacist to Physician Communication The dose of famotidine has been changed to 20 mg every 48 hours per the [facility] approved renal dosing guidelines, based on an CrCl of 19.43 mL/min (scr 3.63 mg/dL) Thank you, Danuta Irvin PharmD, [facility] documented in this encounter [facility] 05-13-2024 Consult note Associated Order (s): IP CONSULT TO NUTRITION SERVICES NUTRITION ADULT INITIAL EVALUATION NUTRITION ASSESSMENT: Reason to be seen: consult for calorie counts Patient History: Admit Diagnosis: Patient Active Problem List Diagnosis AAA (abdominal aortic aneurysm) ([facility]) Essential hypertension Mixed hyperlipidemia Nicotine dependence Idiopathic acute pancreatitis without infection or necrosis Renal cell carcinoma (CMS-HCC) Right renal mass End stage renal disease (CMS-HCC) Abnormal echocardiogram Chest discomfort Chronic kidney disease PAD (peripheral artery disease) (CMS-HCC) Abnormal ECG Hypertrophic cardiomyopathy (CMS-HCC) Preop cardiovascular exam Pancreatic duct dilated IPMN (intraductal papillary mucinous neoplasm) Pancreatic neoplasm Past Medical History: Past Medical History: Diagnosis Date AAA (abdominal aortic aneurysm) ([facility]) monitoring Anemia received iron infusions Anxiety xanax prn Arthritis CKD (chronic kidney disease) stage 4, GFR 15-29 ml/min ([facility]) 06/2023 Coronary artery disease patient states 1 artery occuluded, no stents DDD (degenerative disc disease), lumbar Dental disease missing tooth front Diabetes mellitus type 2, controlled ([facility]) Dialysis patient ([facility]) Claudio aCmpoverde [facility] Essential hypertension 02/23/2018 HL (hearing loss) hearing aid lt ear, deaf right ear Hypothyroidism Mixed hyperlipidemia 02/23/2018 Nicotine dependence 02/23/2018 Pancreatic neoplasm Pancreatitis Peptic ulceration when he was younger Renal cell carcinoma ([facility]) right, left kidney atrophied Skin cancer BCC/SCC Varicella 03/2024 shingles Visual impairment glasses prn Past Surgical History: Past Surgical History: Procedure Laterality Date BIOPSY MASS 04/01/2023 right kidney BRACHIAL CEPHALIC ARTERIOVENOUS FISTULA Left 01/11/2024 Performed by Zac Lombardi MD at [facility] CARDIAC CATHETERIZATION 2004 2007 [facility] CHOLECYSTECTOMY 2005 COLONOSCOPY 2012 ENDOSCOPIC ULTRASOUND UPPER N/A 04/04/2024 Performed by Polly Reeder MD at [facility] ESOPHAGOGASTRODUODENOSCOPY DIAGNOSTIC N/A 04/04/2024 Performed by Polly Reeder MD at [facility] NASAL SINUS SURGERY 2003 cleaned out NEPHRECTOMY PARTIAL OPEN(BIOBANK) Right 07/21/2023 Performed by Mary Telles MD at [facility] SKIN BIOPSY Several times STRABISMUS SURGERY 1961 VASECTOMY WHIPPLE WITH INTRA OPERATIVE ULTRASOUND- BIOBANK N/A 05/09/2024 Performed by Jeffrey Mcfadden MD at [facility] Social/ Cognitive/ Economic: from home Brief Clinical Summary: Patient presented to [facility] for surgery. Whipple performed 05/09 for for pancreatic adenocarcinoma . PMH ESRD on HD, T2DM, HTN, hypothyroidism, HLD, peptic ulcer disease, renal cell carcinoma. Biochemical Data, Medical Tests, and Procedures: 05/10 HD Labs: Results from last 3 days Lab Units 05/13/24 0247 05/12/24 0815 05/12/24 0321 05/11/24 0210 SODIUM mmol/L 136 -- 137 134 POTASSIUM mmol/L 3.7 3.9 3.8 4.1 CHLORIDE mmol/L 100 -- 103 101 CO2 mmol/L -- 24 22 BUN mg/dL 20 -- 33* 28* CREATININE mg/dL 2.46* -- 3.39* 3.04* CALCIUM mg/dL 8.9 -- 8.4* 8.8 ALBUMIN g/dL 3.8 -- 3.5 3.7 ALK PHOS U/L 82 -- 78 78 ALT U/L 59* -- 84* 153* AST U/L 22 -- 33 73* Results from last 7 days Lab Units 05/13/24 1212 05/13/24 0834 05/13/24 0336 05/13/24 02405/12/24 2336 05/12/24200005/12/24 1653 BEDSIDE GLUCOSE mg/dL 159* 133* 187* -- 191* 154* 176* GLUCOSE mg/dL -- -- -- 203* -- -- -- Results from last 3 days Lab Units 05/13/24 02405/12/2432005/11/24 0210 WBC X10E9/L 9.2 8.5 9.2 HEMOGLOBIN g/dL 10.7* 9.7* 9.8* HEMATOCRIT % 30.4* 27.3* 27.9* PLATELETS X10E9/L 192 148* 155 MCV fL 93 94 94 Results from last 3 days Lab Units 05/13/24 0247 05/12/24 03205/11/24 0210 MAGNESIUM mg/dL 2.2 2.2 2.1 Results from last 3 days Lab Units 05/13/24 0247 05/12/24 0321 05/11/24 0210 PHOSPHORUS mg/dL 2.1* 2.7 3.8 Results from last 3 days Lab Units 05/13/24 02405/12/24 0321 05/11/24 0210 TOTAL BILIRUBIN mg/dL 0.7 0.7 0.8 Lab Results Component Value Date HGBA1C 5.7 (H) 04/25/2024 Lab Results Component Value Date IRON 35 (L) 05/10/2024 TIBC 244 (L) 05/10/2024 FERRITIN 1,159 (H) 05/10/2024 Lab Results Component Value Date IRONSAT 14 (L) 05/10/2024 Lab Results Component Value Date CHOL 121 (L) 02/23/2018 Lab Results Component Value Date CHDL 4.8 02/23/2018 Lab Results Component Value Date HDL 25 (L) 02/23/2018 Lab Results Component Value Date LDLCALC 57 02/23/2018 Lab Results Component Value Date TRIG 196 (H) 02/23/2018 Lab Results Component Value Date VERYLOWLIP 39 (H) 02/23/2018 Lab Results Component Value Date [id number] 442 05/10/2024 Lab Results Component Value Date FOLATE 9.4 05/10/2024 No results found for: VITD25 Comments (labs): hyperglycemia, high creatinine, high ALT, low eGFR, hypophosphatemia Medications/ Parenteral: Pepcid, humalog, reglan oxycodone, Kcl, Na Phos Medications Prior to Admission Medication Sig Dispense Refill Last Dose/Taking ALPRAZolam (XANAX) 0.25 mg tablet Take 1 tablet (0.25 mg total) by mouth 3 (three) times a day as needed for anxiety. Other - as prescribed atorvastatin (LIPITOR) 40 mg tablet Take 1 tablet (40 mg total) by mouth nightly Indications: high cholesterol. 05/08/2024 bumetanide (BUMEX) 1 mg tablet Take 3 tablets (3 mg total) by mouth daily Indications: edema with defective kidney function. 05/08/2024 carvedilol (COREG) 25 mg tablet Take 1 tablet (25 mg total) by mouth in the morning and 1 tablet (25 mg total) in the evening. Take with meals. Indications: high blood pressure. 05/09/2024 Morning glimepiride (AMARYL) 2 mg tablet Take 1 tablet (2 mg total) by mouth every morning before breakfast Indications: type 2 diabetes mellitus. 05/08/2024 levothyroxine (SYNTHROID, LEVOTHROID) 50 MCG tablet Take 1 tablet (50 mcg total) by mouth in the morning. Indications: a condition with low thyroid hormone levels. 05/09/2024 Morning sevelamer (RENVELA) 800 mg tablet Take 1 tablet (800 mg total) by mouth in the morning and 1 tablet (800 mg total) at noon and 1 tablet (800 mg total) in the evening. Take with meals. Indications: renal osteodystrophy with hyperphosphatemia. 05/08/2024 metFORMIN (GLUCOPHAGE) 500 mg tablet Take 1 tablet (500 mg total) by mouth as needed (patient states he only occasionally takes this) Indications: prevention of type 2 diabetes mellitus. (Patient not taking: Reported on 05/09/2024) More than a month Current Facility-Administered Medications Medication Dose Route Frequency Provider Last Rate Last Admin acetaminophen (TYLENOL EXTRA STRENGTH) tablet 1,000 mg 1,000 mg oral Q6H PRN Desean Taylor MD calcium gluconate IVPB 1000 mg/50 mL (20 mg/mL premix) 1,000 mg intravenous PRN FLAVIA Holly Stopped at 05/10/24 0610 Or calcium gluconate IVPB 2000 mg/100 mL (20 mg/mL premix) 2,000 mg intravenous PRN FLAVIA Holly Or calcium gluconate 3,000 mg in sodium chloride 0.9 % 100 mL IVPB 3,000 mg intravenous PRN FLAVIA Holly carvediloL (COREG) tablet 25 mg 25 mg oral BID Parker Rachel MD 25 mg at 05/13/24 0830 dextrose (GLUTOSE) 40 % gel 15 g 15 g oral PRN FLAVIA Holly dextrose 50 % in water (D50W) 50% solution 25 mL 25 mL intravenous PRN FLAVIA Holly dextrose 50 % in water (D50W) 50% solution 50 g 50 g intravenous Once PRN Parker Rachel MD docusate sodium (COLACE) capsule 100 mg 100 mg oral BID Desean Taylor MD famotidine (PF) (PEPCID) injection 20 mg 20 mg intravenous Q48H FLAVIA Holly 20 mg at 05/11/24 1737 glucagon HCL injection 1 mg 1 mg intramuscular PRN FLAVIA Holly heparin (porcine) injection 5,000 Units 5,000 Units subcutaneous Q8H [facility] Amanda Randall PA-C 5,000 Units at 05/13/24 0553 hydrALAZINE (APRESOLINE) injection 20 mg 20 mg intravenous Q4H PRN Elizabeth Winters MD 20 mg at 05/12/24 1753 HYDROmorphone (PF) (DILAUDID) injection 1 mg 1 mg intravenous Q4H PRN Desean Taylor MD 1 mg at 05/12/24 0256 insulin lispro (HumaLOG) injection 2-16 Units 2-16 Units subcutaneous Q4H Stanley Thomas MD 2 Units at 05/13/24 1213 labetaloL (NORMODYNE,TRANDATE) injection 20 mg 20 mg intravenous Q4H PRN Elizabeth Winters MD 20 mg at 05/13/24 1159 magnesium sulfate IVPB 2000 mg/50 mL in iso-osmotic water (40 mg/mL premix) 2,000 mg intravenous PRN FLAVIA Holly Or magnesium sulfate IVPB 4000 mg/100 mL in iso-osmotic water (40 mg/mL premix) 4,000 mg intravenous PRN FLAVIA Holly metoclopramide (REGLAN) injection 5 mg 5 mg intravenous Q12H Cristian Hunter MD 5 mg at 05/13/24 0829 NIFEdipine XL (PROCARDIA XL) 24 hr tablet 30 mg 30 mg oral Q12H DALIA Kevin Rosario DO 30 mg at 05/13/24 0824 ondansetron (PF) (ZOFRAN) injection 4 mg 4 mg intravenous Q4H PRN FLAVIA Holly oxyCODONE (ROXICODONE) immediate release tablet 5 mg 5 mg oral Q4H PRN Desean Tayolr MD 5 mg at 05/13/24 0829 Or oxyCODONE (ROXICODONE) immediate release tablet 10 mg 10 mg oral Q4H PRN Desean Taylor MD 10 mg at 05/12/24 1216 polyethylene glycol (GLYCOLAX) packet 17 g 17 g oral Daily PRN Desean Taylor MD potassium chloride (K-TAB,KLOR-CON) CR tablet 20-50 mEq 20-50 mEq oral PRN FLAVIA Holly 10 mEq at 05/13/24 0513 Or potassium chloride (KAYCIEL) 20 mEq/15 mL solution 20-50 mEq 20-50 mEq oral PRN FLAVIA Holly 20 mEq at 05/12/24 0456 potassium chloride IVPB 10 mEq/50 mL in water (0.2 mEq/mL premix) 10 mEq intravenous PRN Kylie G Shahrzadkasik, PA Or potassium chloride IVPB 10 mEq/100 mL in water (0.1 mEq/mL premix) 10 mEq intravenous PRN Kylie G Lukas[place], PA sodium phosphate 20 mmol in sodium chloride 0.9 % 250 mL IVPB 20 mmol intravenous PRN Kylie G Shahrzadkasik, PA Or sodium phosphate 20 mmol in sodium chloride 0.9 % 100 mL IVPB 20 mmol intravenous PRN Kylie G Aditik, PA Stopped at 05/13/24 1013 Or sod phos di, mono-K phos mono (K-PHOS NEUTRAL) 250 mg tablet 2 tablet 2 tablet oral PRN Kylie G Sh[employer]ad[employer], [place] sodium chloride 0.9 % bolus 150 mL intravenous Q5 Min PRN Vidhit Marlene, DO sodium chloride 0.9 % flush 10 mL 10 mL intravenous Q96H Vidhit Marlene, DO 10 mL at 05/12/24 1122 sodium chloride 0.9 % flush 10 mL 10 mL intravenous PRN Vidhit Marlene, DO 10 mL at 05/12/24 0821 sodium chloride 0.9 % flush 10 mL 10 mL intravenous PRN Vidhit Marlene, DO 10 mL at 05/12/24 1121 sodium chloride 0.9 % flush 10 mL 10 mL intravenous Q96H Vidhit Marlene, DO 10 mL at 05/12/24 1121 sodium chloride 0.9 % flush 10 mL 10 mL intravenous PRN Vidhit Marlene, DO 10 mL at 05/12/24 0821 sodium chloride 0.9 % flush 10 mL 10 mL intravenous PRN Vidhit Marlene, DO 10 mL at 05/12/24 1120 sodium chloride 0.9 % infusion 3 mL/hr intra-arterial Continuous Jeffrey Mcfadden MD 3 mL/hr at 05/12/248 3 mL/hr at 05/12/24 191 sodium citrate 4 % (3 mL) flush 1.6 mL 1.6 mL intravenous Q96H Vidhit Marlene, DO sodium citrate 4 % (3 mL) flush 1.6 mL 1.6 mL intravenous PRN Vidhit Marlene, DO 1.6 mL at 05/10/24 1112 sodium citrate 4 % (3 mL) flush 1.7 mL 1.7 mL intravenous Q96H Vidhit Marlene, DO sodium citrate 4 % (3 mL) flush 1.7 mL 1.7 mL intravenous PRN Vidhit Marlene, DO 1.7 mL at 05/10/24 1112 Nutrition Focused Physical Findings +HD catheter, +drain, +wound vac. 335 ml drain output and 475 ml UOP noted . Per MD documentation patient tolerating some sips of clear liquids, passing gas, no BM since surgery, denies nausea or vomiting. Extremities, Muscles, and Bones A. Muscle Loss KASI patient sleeping when RD attempted to visit B. Loss of Subcutaneous Fat KASI Skin (per nursing flow sheets): Skin Color: Pale (05/13/24 1100) Skin Temp: Dry (05/13/24 1100) Wound (per nursing flow sheets): Wound 05/09/24 Incision Abdomen N/A-Site Assessment: Unable to assess (dressing intact) (05/13/24 1100) Gastrointestinal (per nursing flow sheets): Abdomen Assessment: Soft; Flat (05/13/24 1100) Passing Flatus: Yes (05/13/24 1100) RUQ Bowel Sounds: Hypoactive (05/13/24 1100) LUQ Bowel Sounds: Hypoactive (05/13/24 1100) RLQ Bowel Sounds: Hypoactive (05/13/24 1100) LLQ Bowel Sounds: Hypoactive (05/13/24 1100) GI Symptoms: None (05/12/24 1130) Edema (per nursing flow sheets): Intake/ Output Last 24 hrs: Intake/Output Summary (Last 24 hours) at 05/13/2024 1231 Last data filed at 05/13/2024 1100 Gross per 24 hour Intake 200.45 ml Output 525 ml Net -324.55 ml Food/Nutrition Related History: Diet History: KASI, patient denied decreased PO intake, and recent unintentional weight loss on nursing nutrition screen Nutrition Knowledge/Beliefs/Attitudes: -- Allergies: No Known Allergies Diet/ Nutrition Order Review: Dietary Orders (From admission, onward) Start Ordered 05/13/24 0636 Adult diet Clear Liquid; No carbonated beverages Diet effective now Question Answer Comment Diet Type: Clear Liquid Additional Liquid/Fluid Modifiers: No carbonated beverages 05/13/24 0635 05/13/24 0636 Adult nutrition supplements Continuous Question Answer Comment Diet Type or Consistency: Clear Liquid Select Supplement: Clear Liquid Supplement Frequency: TID 05/13/24 0635 Diet Intakes: Percent Meals Eaten (%): 50 (05/11/24 1200) Clear liquid diet, no recent intakes recorded Oral Supplemental Intake/ Acceptance: MD ordered Ensure Clear TID TF/TPN Intakes: 05/11 MD had ordered Nepro with a goal rate of 60 ml/hr via cortrak (RD not consulted) 05/12 cortrak dislodged TF discontinued Anthropometrics: Ht Readings from Last 1 Encounters: 05/09/24 175.3 cm (5' 9 ) Wt Readings from Last 20 Encounters: 05/13/24 67.4 kg (148 lb 9.4 oz) 04/25/24 68.5 kg (151 lb 0.2 oz) 04/16/24 69.4 kg (153 lb) 04/10/24 69.4 kg (153 lb) 04/07/24 69.7 kg (153 lb 11.2 oz) 04/02/24 69.9 kg (154 lb) 03/28/24 63.5 kg (140 lb) 02/29/24 64.2 kg (141 lb 9.6 oz) 02/17/24 61.2 kg (135 lb) 02/14/24 62.1 kg (136 lb 12.8 oz) 02/10/24 60.8 kg (134 lb) 02/03/24 60.8 kg (134 lb) 01/11/24 60.8 kg (134 lb) 01/05/24 59.9 kg (132 lb) 01/02/24 62.1 kg (137 lb) 12/30/23 62.6 kg (138 lb) 11/16/23 60.3 kg (133 lb) 11/11/23 60.5 kg (133 lb 6.4 oz) 09/30/23 85.7 kg (189 lb) 08/05/23 85.7 kg (189 lb) Last 3 Weight Readings 05/12/24 0753 05/12/24 1130 05/13/24 0500 Weight: 67 kg (147 lb 11.3 oz) 66.6 kg (146 lb 13.2 oz) 67.4 kg (148 lb 9.4 oz) Admit Weight: 68.5 kg (Unknown, 05/09) Renal Standard Weight: 79kg Percent Renal Standard Weight: 87% Weight Changes: see trends above, no significant weight loss Body Mass Index: Body mass index is 21.94 kg/m . BMI Category: Normal range (18.50- 24.99) 05/12 post HD weight: 66.6 kg Comparative Standards: Estimated Energy Needs: 1828-0625 kcals daily. Method and weight used: 25-30 kcal/kg dry wt Estimated Protein Needs: 73-100 grams daily. Method and weight used: 1.1-1.5 g protein/kg dry wt Estimated Fluid Needs: 1106 ml daily+UOP. Method weight used: 16.6 x dry wt +UOP Comments: detention dialysis Malnutrition Status: Malnutrition Present: more information needed NUTRITION DIAGNOSIS: Intake Diagnosis: Inadequate oral intake (NI 2.1) related to altered GI function as evidenced by Whipple surgery and clear liquid diet. NUTRITION INTERVENTIONS: Meals & snacks: encourage PO intake as diet is advanced through small frequent meals and snacks Calorie count started. Please document food/beverage/supplement type and quantities consumed within I/O flowsheet (e.g. 25% pancakes, 100% OJ, 50% Ensure etc.) Supplements (medical food, vitamin or mineral): continue Ensure clear (clear liquid supplement ) TID to provide 240 kcal and 8 grams of protein per serving. Coordination of nutrition care: discussed with RN RECOMMENDATIONS: recommend consulting RD for TF management if patient needs continued enteral nutrition to meet patients estimated calorie and protein needs using an appropriate enteral formula. GOAL(S): meet estimated calorie and protein needs NUTRITION MONITORING AND EVALUATION: weight and lab trends, PO intake, calorie counts, supplement needs/acceptance, nutrition support needs, GI function, POC. Lisa MONTEMAYOR, RD, LD Clinical Dietitian Associated Order(s): IP CONSULT TO NEPHROLOGY Images from the original note were not included. NEPHROLOGY CONSULT NOTE Date of Admission: 05/09/2024 8:22 AM Reason for Consult: End-stage renal disease Referring Physician: Dr. Mcfadden PCP: DYLAN MONTILLA MD Chief Complaint: Plan pancreatic surgery Assessment End-stage renal disease on hemodialysis Tuesday currently dialyzing via right IJ tunneled catheter, patient does have a left upper extremity AV fistula which has now matured will be working on using the access as outpatient. 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 Postoperatively patient was transferred to surgical ICU. Patient is currently hemodynamically stable. Nephrology was consulted at the request of Dr. Mcfadden to assist with patient's end-stage renal disease and electrolyte imbalance. Patient did receive 2 doses of Lokelma overnight due to hyperkalemia. Patient is currently hemodynamically stable with systolics ranging in the 150s on nasal cannula 2 L. Problem list End-stage renal disease on hemodialysis Tuesday dialyzing at . renal [facility]. End-stage renal disease secondary to postoperative acute tubular necrosis along with loss of renal mass with partial nephrectomy of the right solitary kidney, left kidney is atrophic. Initiated on hemodialysis 05/23/2023. Dialyzing via right upper extremity AV fistula. Previous renal workup June 2023 showed SPEP pending, PIA pending, Anca panel pending, rheumatoid factor less than 10, C3 and C4 were unremarkable, hepatitis panel was nonreactive. Urinalysis from June 2023 showed 300 mg/dL protein with 118 RBCs and 20 wbc's per high-power field with a protein to creatinine ratio of 4.7 grams/gram. Pancreatic adenocarcinoma status post Whipple procedure with ligament flap performed 05/09/2024 Hypertension Diabetes mellitus type 2 Right renal midpole mass 3.4 cm, biopsy 04/01/2023 showing clear cell carcinoma. Right nephrectomy on July 21, 2023. 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 Lombardi Dyslipidemia Cholecystectomy Past Medical History Past Medical History: Diagnosis Date AAA (abdominal aortic aneurysm) ([facility] monitoring Anemia received iron infusions Anxiety xanax prn Arthritis CKD (chronic kidney disease) stage 4, GFR 15-29 ml/min ([facility] 06/2023 Coronary artery disease patient states 1 artery occuluded, no stents DDD (degenerative disc disease), lumbar Dental disease missing tooth front Diabetes mellitus type 2, controlled ([facility] Dialysis patient ([facility]) Claudio Campoverde Sat- Renal Atkinson Essential hypertension 02/23/2018 HL (hearing loss) hearing aid lt ear, deaf right ear Hypothyroidism Mixed hyperlipidemia 02/23/2018 Nicotine dependence 02/23/2018 Pancreatic neoplasm Pancreatitis Peptic ulceration when he was younger Renal cell carcinoma ([facility]) right, left kidney atrophied Skin cancer BCC/SCC Varicella 03/2024 shingles Visual impairment glasses prn Past Surgical History: Procedure Laterality Date BIOPSY MASS 04/01/2023 right kidney BRACHIAL CEPHALIC ARTERIOVENOUS FISTULA Left 01/11/2024 Performed by Zac Lombardi MD at [facility] CARDIAC CATHETERIZATION 2004 2007 [facility] CHOLECYSTECTOMY 2005 COLONOSCOPY 2012 ENDOSCOPIC ULTRASOUND UPPER N/A 04/04/2024 Performed by Polly Reeder MD at [facility] ESOPHAGOGASTRODUODENOSCOPY DIAGNOSTIC N/A 04/04/2024 Performed by Polly Reeder MD at [facility] NASAL SINUS SURGERY 2003 cleaned out NEPHRECTOMY PARTIAL OPEN(BIOBANK) Right 07/21/2023 Performed by Mary Telles MD at [facility] SKIN BIOPSY Several times STRABISMUS SURGERY 1961 VASECTOMY WHIPPLE WITH INTRA OPERATIVE ULTRASOUND- BIOBANK N/A 05/09/2024 Performed by Jeffrey Mcfadden MD at [facility] Past surgical history: as above. Allergies: No Known Allergies Home Meds: Medications Prior to Admission Medication Sig Dispense Refill Last Dose/Taking ALPRAZolam (XANAX) 0.25 mg tablet Take 1 tablet (0.25 mg total) by mouth 3 (three) times a day as needed for anxiety. Other - as prescribed atorvastatin (LIPITOR) 40 mg tablet Take 1 tablet (40 mg total) by mouth nightly Indications: high cholesterol. 05/08/2024 bumetanide (BUMEX) 1 mg tablet Take 3 tablets (3 mg total) by mouth daily Indications: edema with defective kidney function. 05/08/2024 carvedilol (COREG) 25 mg tablet Take 1 tablet (25 mg total) by mouth in the morning and 1 tablet (25 mg total) in the evening. Take with meals. Indications: high blood pressure. 05/09/2024 Morning glimepiride (AMARYL) 2 mg tablet Take 1 tablet (2 mg total) by mouth every morning before breakfast Indications: type 2 diabetes mellitus. 05/08/2024 levothyroxine (SYNTHROID, LEVOTHROID) 50 MCG tablet Take 1 tablet (50 mcg total) by mouth in the morning. Indications: a condition with low thyroid hormone levels. 05/09/2024 Morning sevelamer (RENVELA) 800 mg tablet Take 1 tablet (800 mg total) by mouth in the morning and 1 tablet (800 mg total) at noon and 1 tablet (800 mg total) in the evening. Take with meals. Indications: renal osteodystrophy with hyperphosphatemia. 05/08/2024 metFORMIN (GLUCOPHAGE) 500 mg tablet Take 1 tablet (500 mg total) by mouth as needed (patient states he only occasionally takes this) Indications: prevention of type 2 diabetes mellitus. (Patient not taking: Reported on 05/09/2024) More than a month Social History: Social History Socioeconomic History Marital status: Spouse name: Not on file Number of children: Not on file Years of education: Not on file Highest education level: Not on file Occupational History Not on file Tobacco Use Smoking status: Every Day Average packs/day: 1 pack/day for 41.6 years (41.6 ttl pk-yrs) Types: Cigarettes Start date: 07/25/1982 Passive exposure: Current Smokeless tobacco: Never Tobacco comments: Currently smoking 1/2ppd. Vaping Use Vaping status: Never Used Substance and Sexual Activity Alcohol use: No Drug use: Not Currently Types: Marijuana Sexual activity: Defer Other Topics Concern Caffeine Use Yes Social History Narrative Lives with . Worked at a [employer]. Has a dog in the home. Social Drivers of Health Financial Resource Strain: Not on file Food Insecurity: Patient Unable To Answer (05/09/2024) Hunger Screening Food Insecurity - Worry: Patient unable to answer Food Insecurity - Inability: Patient unable to answer Transportation Needs: Patient Unable To Answer (05/09/2024) PRAPARE - Transportation Lack of Transportation (Medical): Patient unable to answer Lack of Transportation (Non-Medical): Patient unable to answer Physical Activity: Not on file Stress: Not on file Social Connections: Not on file Interpersonal Safety: Patient Unable To Answer (05/09/2024) Humiliation, Afraid, Rape, and Kick questionnaire Fear of Current or Ex-Partner: Patient unable to answer Emotionally Abused: Patient unable to answer Physically Abused: Patient unable to answer Sexually Abused: Patient unable to answer Housing Instability: Patient Unable To Answer (05/09/2024) Housing Instability Housing Instability: Patient unable to answer Family History: Family History Problem Relation Age of Onset Lung cancer Mother Brain cancer Mother Heart disease Father Diabetes Sister Diabetes Brother Stroke Paternal Grandmother Heart attack Paternal Grandfather Early Paternal Grandfather 40 Diabetes Son Cancer Half Brother thyroid and pancreatic Anesthesia problems Neg Hx Bleeding Disorder Neg Hx Clotting disorder Neg Hx Prostate cancer Neg Hx Colon cancer Neg Hx Kidney cancer Neg Hx Thyroid cancer Neg Hx Review of Systems Constitutional: Negative for fever, chills and fatigue HENT: Negative Eyes: Negative for discharge Respiratory: Negative for cough and shortness of breath. Cardiovascular: Negative for chest pain and palpitations. Gastrointestinal: Negative for nausea, vomiting, abdominal pain and diarrhea. Positive for postoperative abdominal pain. Endocrine: Negative for fatigue or unexpected weight gain or weight loss Genitourinary: Negative for dysuria, urgency, frequency, hematuria, flank pain, decreased urine volume and difficulty urinating. Musculoskeletal: Negative for myalgias, joint swelling and arthritis. Skin: Negative for rash. Allergy/immunology: Negative for runny nose or redness of eyes Neurological: Negative for lightheadedness. Hematological: Negative for any recent bleeding or transfusion Psychiatric/Behavioral: Negative Physical Exam Respiratory Source: O2 Device: Nasal cannula Admission Weight: Weight: 68.5 kg (151 lb 0.2 oz) Wt Readings from Last 3 Encounters: 05/09/24 68.5 kg (151 lb 0.2 oz) 04/25/24 68.5 kg (151 lb 0.2 oz) 04/16/24 69.4 kg (153 lb) I/O last 3 completed shifts: In: 2663 [I.V.:2162.2; Blood:225; IV Piggyback:275.9] Out: 1015 [Urine:445; Drains:170; Blood:400] Vital Signs: Blood pressure 152/46, pulse 88, temperature 36.7 C (98.1 F), temperature source Oral, resp. rate 11, height 175.3 cm (5' 9 ), weight 68.5 kg (151 lb 0.2 oz), SpO2 97%. General: Alert, oriented x 3 and in no obvious distress Psychiatric: Has a normal mood and affect. HEENT: Head normocephalic. Eyes: Conjunctivae and EOM are normal. Cardiovascular: Normal rate, regular rhythm and normal heart sounds. No JVD. Pulmonary/Chest: Air entry bilaterally equal. No wheezes or rales. Abdominal: Soft, bowel sounds are normal and there was no tenderness rebound or guarding. Musculoskeletal: Normal range of motion. No tenderness. Neurological: No obvious deficits. Skin: No rash noted. Extremities: No edema Access: Right IJ tunnel catheter, Left Av fistula positive thrill and bruit Laboratory Studies Results from last 7 days Lab Units 05/10/24 0718 05/10/24 0322 05/10/24 0210 05/09/24 1845 05/09/24 1845 05/09/24 0921 SODIUM mmol/L -- -- 138 -- 141 -- POTASSIUM mmol/L 5.5* 6.2* 6.2* < > 5.0 -- POC POTASSIUM mmol/L -- -- -- -- -- 4.9 CHLORIDE mmol/L -- -- 108 -- 109 -- CO2 mmol/L -- -- 20* -- 23 -- BUN mg/dL -- -- 45* -- 37* -- CREATININE mg/dL -- -- 3.77* -- 3.22* -- POC CREATININE mg/dL -- -- -- -- -- ORDERED IN ERROR CALCIUM mg/dL -- -- 8.6 -- 8.4* -- PHOSPHORUS mg/dL -- -- 4.3 -- 3.6 -- MAGNESIUM mg/dL -- -- 2.5 -- 2.6 -- < > = values in this interval not displayed. Results from last 7 days Lab Units 05/10/24 0210 05/09/24 2300 05/09/24 1845 WBC X10E9/L 11.8* -- 12.0* HEMOGLOBIN g/dL 10.8* 11.3* 11.5* HEMATOCRIT % 31.6* 33.4* 33.3* PLATELETS X10E9/L 171 -- 185 Results from last 7 days Lab Units 05/10/24 0210 05/09/24 1845 MAGNESIUM mg/dL 2.5 2.6 Lab Results Component Value Date CALCIUM 8.6 05/10/2024 Lab Results Component Value Date IRON 22 (L) 07/22/2023 TIBC 279 07/22/2023 FERRITIN 68 07/22/2023 Thank you for the consultation and involving me in the patient's care. Please contact me at [phone] (Office) or [phone] (Answering service) with any questions. Kevin Rosario DO [facility] This note was created with the assistance of a speech-recognition program. Although the intention is to generate a document that actually reflects the content of the visit, no guarantees can be provided that every mistake has been identified and corrected by editing. documented in this encounter [facility] 05-09-2024 History and physical note HISTORY AND PHYSICAL INTERVAL NOTE: Zev Crystal 1955 [id number] H&P reviewed. The patient was examined and there are no changes to the H&P. Jeffrey Mcfadden MD Source Note - Jeffrey Mcfadden MD - 04/10/2024 3:30 PM EDT Hepatobiliary and Pancreas Surgery Clinic Note Treatment Team PCP: DYLAN MONTILLA MD Typing Bookkeeper: n/a Chief Complaint: Main duct IPMN, highly suspicious for pancreatic cancer HPI: Zev Crystal is a 68 y.o. 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 Patient follows with urology Dr. Telles for right renal cell carcinoma currently in remission. He is s/p open right parital nephrecomy 07/21/23 complicated with a endophytic mass. Patient continues to receive dialysis on Tuesday, , and Tuesday each week. Upon follow up CT A/P 01/27/24 patient had a pancreatic ductal dilation. This was initially imaged on MR abdomen 01/13/23. He was last seen in clinic on 02/16/24, at which time an MRI/MRCP was ordered. This demonstrated mild diffuse pancreatitis with mild apparent edematous change in the pancreas, increased marked dilation of the pancreatic duct with some narrowing in the pancreatic neck region, no definite enhancement within the filling defect within pancreatic head and neck. Also noted was the development of decreased signal in the lever and spleen, suggestive of iron overload. He then underwent EUS 04/04/24, which was highly suspicious for main duct IPMN. Cytology is currently pending review from [facility]. EUS 04/04/[address] Reeder: Erythematous duodenopathy. Normal second portion of the duodenum. Erythematous mucosa in the antrum. Biopsied. Normal esophagus. There was dilation in the entire main bile duct which measured up to 10 mm. A mass was identified in the pancreatic neck. Highly suspicious. Fine needle aspiration performed. Underlying main duct IPMN is suspected versus chronic pancreatitis with intraductal mass. Both scenarios are consistent with high-risk for malignancy. Cytology pending review from [facility]. ROS: As per HPI. Past Medical History: Past Medical History: Diagnosis Date AAA (abdominal aortic aneurysm) ([facility] Anxiety xanax prn Arthritis CKD (chronic kidney disease) stage 4, GFR 15-29 ml/min ([facility]) 06/2023 Dental disease crown front tooth states could fall out if hit hard enough Diabetes mellitus type 2, controlled ([facility] Dialysis patient ([facility]) Sat- Renal Atkinson Essential hypertension 02/23/2018 HL (hearing loss) hearing aid lt ear, deaf right ear Hypothyroidism Mixed hyperlipidemia 02/23/2018 Nicotine dependence 02/23/2018 Pancreatitis Peptic ulceration when he was younger Renal cell carcinoma (CMS-HCC) right, left kidney atrophied Skin cancer BCC/SCC Varicella Visual impairment glasses prn Past Surgical History: Past Surgical History: Procedure Laterality Date BIOPSY MASS 04/01/2023 right kidney BRACHIAL CEPHALIC ARTERIOVENOUS FISTULA Left 01/11/2024 Performed by Zac Lombardi MD at [facility] CARDIAC CATHETERIZATION 2004 2007 [facility] CHOLECYSTECTOMY 2005 COLONOSCOPY 2012 ENDOSCOPIC ULTRASOUND UPPER N/A 04/04/2024 Performed by Polly Reeder MD at [facility] ESOPHAGOGASTRODUODENOSCOPY DIAGNOSTIC N/A 04/04/2024 Performed by Polly Reeder MD at [facility] EYE SURGERY NASAL SINUS SURGERY 2003 cleaned out NEPHRECTOMY PARTIAL OPEN(BIOBANK) Right 07/21/2023 Performed by Mary Telles MD at [facility] SKIN BIOPSY Several times STRABISMUS SURGERY 1961 VASECTOMY Family History: Family History Problem Relation Age of Onset Lung cancer Mother Brain cancer Mother Heart disease Father Diabetes Sister Diabetes Brother Stroke Paternal Grandmother Heart attack Paternal Grandfather Early Paternal Grandfather 40 Diabetes Son Cancer Half Brother thyroid and pancreatic Anesthesia problems Neg Hx Bleeding Disorder Neg Hx Clotting disorder Neg Hx Prostate cancer Neg Hx Colon cancer Neg Hx Kidney cancer Neg Hx Thyroid cancer Neg Hx Social History: Social History Socioeconomic History Marital status: Spouse name: Not on file Number of children: Not on file Years of education: Not on file Highest education level: Not on file Occupational History Not on file Tobacco Use Smoking status: Former Average packs/day: 1 pack/day for 41.6 years (41.6 ttl pk-yrs) Types: Cigarettes Start date: 07/25/1982 Passive exposure: Current Smokeless tobacco: Never Tobacco comments: Currently smoking 1/2ppd. 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 Social Determinants of Health Financial Resource Strain: Not on file Food Insecurity: No Food Insecurity (04/07/2024) Hunger Screening Food Insecurity - Worry: Never True Food Insecurity - Inability: Never True Transportation Needs: No Transportation Needs (07/27/2023) PRAPARE - Transportation Lack of Transportation (Medical): No Lack of Transportation (Non-Medical): No Physical Activity: Not on file Stress: Not on file Social Connections: Not on file Interpersonal Safety: Unknown (09/15/2023) [facility]ceived from [facility] Safety & Environment Fear of Current or Ex-Partner: Not on file Emotionally Abused: Not on file Physically Abused: Not on file Sexually Abused: Not on file Physically or Sexually Abused: Not on file Housing Instability: Low Risk (07/27/2023) Housing Instability Housing Instability: No Allergies: No Known Allergies Current Medications: Current Outpatient Medications Medication Sig Dispense Refill atorvastatin (LIPITOR) 40 mg tablet Take 1 tablet (40 mg total) by mouth nightly Indications: high cholesterol. bumetanide (BUMEX) 1 mg tablet Take 3 tablets (3 mg total) by mouth daily Indications: edema with defective kidney function. carvedilol (COREG) 25 mg tablet Take 1 tablet (25 mg total) by mouth in the morning and 1 tablet (25 mg total) in the evening. Take with meals. Indications: high blood pressure. glimepiride (AMARYL) 2 mg tablet Take 1 tablet (2 mg total) by mouth every morning before breakfast. levothyroxine (SYNTHROID, LEVOTHROID) 50 MCG tablet Take 1 tablet (50 mcg total) by mouth in the morning. sevelamer (RENVELA) 800 mg tablet Take 1 tablet (800 mg total) by mouth in the morning and 1 tablet (800 mg total) at noon and 1 tablet (800 mg total) in the evening. Take with meals. ALPRAZolam (XANAX) 0.25 mg tablet Take 1 tablet (0.25 mg total) by mouth 3 (three) times a day as needed for anxiety. (Patient not taking: Reported on 04/10/2024) amLODIPine (NORVASC) 10 mg tablet Take 1 tablet (10 mg total) by mouth in the morning. (Patient not taking: Reported on 04/02/2024) daaobf-rsnvbaka-ebeewjs (CREON) 36,000-114,000- 180,000 unit capsule,delayed release(DR/EC) Take 1 capsule (36,000 units of lipase total) by mouth in the morning and 1 capsule (36,000 units of lipase total) at noon and 1 capsule (36,000 units of lipase total) in the evening. Take with meals. (Patient not taking: Reported on 03/28/2024) 90 capsule 6 metFORMIN (GLUCOPHAGE) 500 mg tablet (Patient not taking: Reported on 04/10/2024) No current facility-administered medications for this visit. Objective: Vitals Vitals: 04/10/24 1522 BP: 152/87 Pulse: 72 Physical Exam Constitutional: He is oriented to person, place, and time. Appears well-developed and well-nourished. HENT: Normocephalic and atraumatic. Eyes: EOM are normal. Pupils are equal, round, and reactive to light. Neck: Normal range of motion. No tracheal deviation present. Cardiovascular: Normal rate, regular rhythm and normal heart sounds. Pulmonary/Chest Effort normal and breath sounds normal. Abdominal: Soft. Bowel sounds are normal. He exhibits no distension, no ascites and no mass. There is no tenderness. There is no rebound and no guarding. No hernia. Neurological: He is alert and oriented to person, place, and time. Skin Skin is warm. Psychiatric: Normal mood and affect. Behavior is normal. Judgment and thought content normal. Recent Labs Results Admission on 04/04/2024, Discharged on 04/04/2024 Component Date Value Ref Range Status Bedside glucose 04/04/2024 116 (H) 65 - 99 mg/dL Final Bedside glucose 04/04/2024 111 (H) 65 - 99 mg/dL Final Recent Radiology Studies MRI/MRCP 02/17/24: IMPRESSION: 1. Interval resection of previously noted anterior midpole right renal mass. Some mild heterogeneous signal persists in the region making evaluation somewhat difficult. New area noted on recent CT appears to represent some blood products likely in a small hemorrhagic cyst. Similar focus noted more inferiorly within anterior right kidney. No definite worrisome lesion identified. 2. There may be mild diffuse pancreatitis present with mild apparent edematous change in the pancreas. No peripancreatic fluid collection identified. Pancreas enhances normally. 3. Increased marked dilatation of pancreatic duct with some narrowing in pancreatic neck region. No definite enhancement within the filling defect within pancreatic head and neck region. 4. Interval development of decreased signal in liver and spleen since prior exam suggests iron overload. 5. Mild interval increase in mid abdominal aortic aneurysm today maximally 4.3 cm. 6. Unchanged biliary ductal dilatation. Reviewed imaging personally and agree with the official interpretation. 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 Discussed with the patient that because his pancreatic lesion is in the neck of the pancreas, he may require Whipple vs distal pancreatectomy with splenectomy. This decision would need to be made during the procedure based on intraoperative pathology of the pancreatic neck. Discussed the whipple procedure with the aide of diagrams. Discussed the risks, benefits, and alternative treatments. Specifically discussed the risks of bleeding, infection, anastomotic leak, pancreatic fistula, perioperative . Discussed expected postoperative course baring any complications. Discussed national and personal data. Personal operative mortality is 1.8%, 30 day overall mortality 5%, 90 day overall mortality is 7%. Pancreatic fistula rate is 11% and all have been Grade A fistulas. These are all at or better than all national standards. Further I have currently do at least 25 whipples in 12 months which is above that of the 12 whipples per year required for being considered a high volume whipple surgeon. Also discussed the distal pancreatectomy with splenectomy in detail. Discussed the risks, benefits, and alternative treatments. Specifically discussed the risks of bleeding, infection, and bile duct leaking, all less than 1%. Discussed expected postoperative course baring any complications. We will obtain risk stratification and optimization by caddy master prior to surgery. Patient follows with Dr. Mckinley Winkler, Cardiology. All questions were answered and informed consent was signed. Patient is scheduled for surgery on May 09. Scribed for and in the presence of Jeffrey Mcfadden MD by Sheree Aguilar (scribe). Sheree Aguilar 04/10/24 [id number] PROVIDER STATEMENT I Jeffrey Mcfadden MD personally performed the services described in the documentation, as scribed by Sheree Aguilar in my presence, and it is both accurate and complete. Per ACS surgical risk calculator patient is above-average risk of serious complication at 33.3% versus the average of 27.7%. He has an average risk of any complication. He has an increased risk of pneumonia, cardiac complication, readmission, returned OR, at 4.7% versus 1.6% average. Also has an increased risk of discharge to [facility] or sepsis. He is below average risk of UTI or venous thromboembolism. Predicted length of stay is 7.5 days. I think his risk is probably slightly lower due to the fact the patient is on dialysis just recently and he has previously had a nephrectomy for renal cell cancer remotely. Please see media section of the chart for all the details of the report. Patient understands he is at increased risk however given the risk for harboring cancer he would like to proceed with surgery and I agree that is reasonable. documented in this encounter [facility] 04-30-2024 History of Present illness Narrative Images from the original note were not included. Skin Check Location: Patient requests a skin examination from the waist up Dermatologic history: history of Actinic Keratosis, history of Basal Cell Carcinoma (right zoroastrianism, left zoroastrianism, left preauricular), history of Squamous Cell Carcinoma (right zoroastrianism) Last visit: 6 months ago Established patient Lesions: Location: Face Duration: months Associated symptoms: red, rough spots Treatments: none All pertinent medical history, medications, and allergies were reviewed. General Exam: alert , oriented to person, place, and time , normal affect, well appearing Accompanied by spouse A complete skin exam was offered, pt declined. Areas not examined despite medical recommendation: From the waist down Scalp, Examined Head, Face Examined Neck Examined Chest Examined Back Examined Abdomen Examined Right arm Examined Left arm Examined Hands Examined Digits,nails: Examined Lymphatics: Not examined 1. Lentigines Scattered bermeo macules in sun-exposed areas. The patient was informed that lentigines are benign pigmented lesions that occur on sun-exposed and sun-damaged skin. No treatment is necessary. Recommended regular use of broad spectrum sunscreen SPF 30 or higher 2. Melanocytic nevus of trunk Scattered benign appearing, regular brown to light brown melanocytic papules and macules with similar morphology Counseled regarding these benign growths. Rarely, a nevus can develop into malignant melanoma, so any changing nevi should be promptly re-evaluated. 3. Seborrheic keratosis Stuck on verrucous, bermeo-brown papules and plaques. Patient was counseled regarding these benign growths. Removal is normally not necessary, but they may be removed if they are symptomatic or for cosmetic reasons. 4. Neoplasm of unspecified behavior of bone, soft tissue, and skin Left mid back Irregularly pigmented papule Lesion biopsy Type of biopsy: tangential Informed consent: discussed and consent obtained Informed consent comment: The risks and benefits of the biopsy were discussed. Risks include but are not limited to bleeding, infection, scarring, pain, and nerve damage. An opportunity to ask questions prior to the procedure was permitted and all questions were answered. Patient was prepped and draped in usual sterile fashion: area cleansed with alcohol. Anesthesia: the lesion was anesthetized in a standard fashion Anesthetic: 1% lidocaine w/ epinephrine 1-100,000 buffered w/ 8.4% NaHCO3 Instrument used: DermaBlade Hemostasis achieved with: electrodesiccation Outcome: patient tolerated procedure well Outcome comment: The specimen was placed in a prelabeled formalin container to be sent for pathology Post-procedure details: sterile dressing applied and wound care instructions given Post-procedure details comment: Emphasized need to contact clinic for any signs of infection, uncontrollable bleeding, or complications. Dressing type: bandage Additional details: Photo taken Amount of lidocaine used: 1.0 cc Specimen A - Dermatopathology exam Differential Diagnosis: atypical mole vs melanoma Check Margins: No Size of lesion: 0.5 x 0.5 cm 5. Actinic keratosis (15) Dorsum of Nose, Left Forehead (2), Left Frontal Scalp, Left Preauricular Area, Left Superior Marked Tree, Left Jew, Left Temporal Scalp, Right Buccal Cheek, Right Forehead, Right Parotid Area, Right Postauricular Area, Right Posterior Mandible, Right Superior Marked Tree, Right Zygomatic Area Erythematous scaly papules Patient was counseled regarding these sun-induced growths that can develop into squamous cell carcinoma if left untreated. Discussed treatment with cryotherapy. It was emphasized that any treated lesions that fail to resolve should be re-evaluated. Cryotherapy performed today; see procedure note Diagnosis: Actinic keratosis Indication: Precancerous Location: see skin exam Consent: Verbal consent was obtained and risks were discussed, including, but not limited to risks of scarring, darker or packaging mechanic pigmentary changes, recurrence, incomplete removal and infection. Method: Liquid nitrogen was used to treat the lesion(s) with two 5-10 second freeze-thaw cycles. Eyes were shielded using cotton pad during procedure Number of lesions treated: 15 Post-procedure instructions: Instructions were given orally and in writing. The office will be contacted if the lesion fails to resolve despite treatment, or if a side effect develops such as abnormal crusting, scabbing, redness or tenderness Cryotherapy, skin lesion - Dorsum of Nose, Left Forehead (2), Left Frontal Scalp, Left Preauricular Area, Left Superior Marked Tree, Left Jew, Left Temporal Scalp, Right Buccal Cheek, Right Forehead, Right Parotid Area, Right Postauricular Area, Right Posterior Mandible, Right Superior Marked Tree, Right Zygomatic Area 6. History of skin cancer Unspecified The patient was counseled that scars from excisional sites of nonmelanoma skin cancers should be monitored closely for recurrence. The patient was instructed to contact the office for any new, changing, or symptomatic moles. The patient was also instructed to contact the office for any new lesions that develop within or around the previous surgery scar. Next Visit: 6 months documented in this encounter [facility] 04-25-2024 Instructions Ariela Barber RN - 04/25/2024 1:30 PM EDT Your surgery/procedure is scheduled at [facility] on 05/09/2024 at 1030 Arrival [id number] [facility] Address: [address] [place] [address] Park in [address] Parking lot located on [facility]. Report to the Entrance B. Check in at the information desk the surgery. The waiting room located on the second floor. If you have any questions prior to surgery, please call Pre-Admission Clinic at [phone] between 7:30 am and 4:30 pm Tuesday through Tuesday. If you have questions the morning of surgery, please call the Pre-op Department at [phone]. Notify your SURGEON if you develop any illness such as a cold, cough, fever, sore throat, vomiting or are hospitalized between now and your surgery. Medication Instructions (Do not stop your medications without consulting the prescribing physician). Take the following medications the morning of surgery with a sip of water: Carvedilol, Levothyroxine Diabetic or Weight loss medications: HOLD n/a LAST DOSE n/a Take inhalers as prescribed the morning of surgery. Due to the risk associated with these medications. If these medications are not held per instruction below, your surgery is at an increased risk for cancellation. SGLT2 Medications- Hold 3 days prior to surgery: Jardiance, Empagliflozin, Farxiga, Dapagliflozin, Invokana, Canagliflozin GLP-1 Medications (Injection or Pill)- If taken daily hold day of surgery. If taken weekly, hold 1 week prior to surgery: Adlyxin, Byetta, Bydureon, Ozempic, Rybelsus,Trulicity, Victoza, Wegovy, Lixisenatide, Exenatide, Semaglutide, Dulaglutide, Liraglutide GIP/GLP-1(Injection or Pill)- If taken daily hold day of surgery. If taken weekly, hold 1 week prior to surgery: Chioma . Blood thinners: Please contact your prescribing physician regarding a stop/hold date for these medications. Medications such as Coumadin, Heparin, Aspirin, Plavix, Eliquis, Pradaxa Diabetics: If you take insulin, contact your prescribing doctor for instructions on how to manage this the night before and the morning of surgery. Non-steriodal Anti-Inflammatory Drugs (NSAIDS)- Hold 3 days prior to surgery unless otherwise directed by your surgeon. Vitamins/Herbal Products: You may continue to take your prescribed vitamins such as potassium, iron, vitamin B, vitamin C, or multivitamin unless specifically instructed by your surgeon to hold. STOP taking all herbal products/teas one week prior to your surgery. Marijuana: Stop marijuana 72 hours prior to surgery, stop CBD oil 48 hours prior to surgery. If you have been given bowel prep instructions by your surgeon, please call the surgeon's office with any questions about these instructions. What do I do the day of Surgery? Age 2 through adult - Stop all solids by midnight, You may have clear liquids up to 2 hours before surgery, unless otherwise instructed by your surgeon. Clear liquids are: water, sports drinks such as Gatorade or G2, or apple juice. You may NOT have: tube feedings, dairy products, alcoholic beverages, orange juice, or any liquids with solids or pulp in it. If applicable, shower again with CHG soap the morning of your surgery. If you received a green plastic bracelet, bring it with you the day of surgery and your nurse will put it on you. In order to help prevent infection post-operatively, you may be asked to use a CHG mouthwash when you arrive to the Pre-op area. Your nurse will provide instruction the morning of. What do I need to do to prepare for surgery? If you will be going home the same day as your surgery, arrange for an adult over [address] Riding in a bus or taxi by yourself is not permitted. You should not smoke or drink alcohol 24 hours before your surgery. Alcohol thins the blood and may cause bleeding problems during surgery. Smoking increases the risk of breathing problems after surgery. Do not use lotions, creams, powders, perfume, make up, cologne or after-shaves day of surgery. Remove ALL jewelry including wedding rings, body piercings (including dermal piercings ,hair extensions that contain metal, nail citizen of [place], make-up, and contact lens. You may brush your teeth the morning of surgery, but do not swallow the water. Wear your dentures and partial plates to the hospital (no adhesive). Shower the night the before. If applicable, use the CHG (chlorhexidine gluconate) soap or wipes What should I bring to the hospital? If you received a green plastic bracelet, bring it with you the day of surgery and your nurse will put it on you. Eyeglass or contact lens case If you will be spending the night, please bring personal care items and leave them in the car until you are taken to your room after surgery. Leave ALL valuables at home. If any of these instructions conflict with those you received from the surgeon, please seek clarification from your surgeon's office. DEEP BREATHING EXERCISES This exercise helps promote good air exchange and helps to prevent pneumonia after surgery. Breathe in slowly and deeply through the nose. Hold your breath for a few seconds and then exhale slowly through the mouth. Repeat this three times and then cough.Coughing helps to clear your lungs. If you have had a surgery with an incision into your abdomen or chest, press gently against your incision with a pillow or a folded blanket when you cough. Please be aware - it may not be gar to cough following some types of surgeries involving the eyes, ears, sinuses and throat. Always follow your doctor's instructions. LEG EXERCISE These exercises help promote good circulation and help to prevent blood clots after surgery. Point your toes to the ceiling and then point them to the wall. Do this slowly about 15-20 times. You may also move your feet in circles. Do the exercise that is most comfortable for you. If you have had surgery involving your shoulder or arm, we recommend you move your fingers. PRACTICING We ask that you begin practicing these exercises before your surgery. After surgery try to do both exercises at least every 2 hours during the day and early evening. SURGICAL SITE INFECTION PREVENTION What is a Surgical Site Infection? Infection can happen to the area of the body where surgery is done. This is called a surgical site infection (SSI). A SSI does not happen very often. Can SSIs be treated? Antibiotics are used to treat SSI. Some patients may need another surgery to treat the infection. The doctor will discuss treatment options with you. What are some of the things that hospitals are doing to prevent SSIs? Soap and water or alcohol hand rub are used before and after caring for each patient. Special soap is used to clean surgery workers hands and arms just before the surgery. Masks, gowns, gloves and hair covers are worn during the surgery to keep the area clean. Hair in the surgery area may be removed with clippers (not razors). A special soap that kills germs is used to clean the skin at the surgery site. Antibiotics may be given before the surgery starts. What can you do to prevent SSIs? Before surgery: You may be asked to shower or bathe with a special soap that kills germs the night before and the day of surgery. Use the soap as you were told. If you smoke, stop or cut down. Ask your doctor about ways to quit. Do not shave near where you will have surgery. Shaving can irritate the skin and make it easier to get and infection. After surgery: Be sure that the doctors and nurses clean their hands before and after touching you. Be sure your family and friends clean their hands before and after visiting you. Do not be afraid to remind them. * Care for your wound at home as told by your doctor or nurse * Call your doctor right away if you have fever, redness, increased pain, or drainage at the surgery site. Further questions? Contact the doctor, nurse or the Infection Prevention and Control department if you have any questions. PATIENT RIGHTS AND RESPONSIBILITIES As a patient at [facility], you have the right to: Receive medical care and be informed of who is taking care of you Be treated with dignity and respect Have a family member/shipping services sales representative of choice and your physician notified of your admission Receive information and actively participate in decisions about your care and treatment Refuse care, treatment and services Decide who may provide your support and speak for you Access restoration and spiritual services Participate in ethical issues and questions about your care Receive private and confidential care Have appropriate assessment and management of your pain Know guest visitation restrictions or limitations Have an advance directive Access protective services Consent or refuse to participate in research studies or production or recordings, films or other images Have resolution of your complaints Receive information of hospital charges and payment methods Patient/patient shipping services sales representative responsibilities are to: Provide information about health status to facilitate care, treatment and services Follow the treatment, plan, keep appointments and speak up when you do not understand the plan Respect the rights of other patients and healthcare personnel Follow organizational rules and regulations that support quality care and a safe environment Fulfill financial obligations as promptly as possible Bathing Before Surgery- Patients greater than 2 months of age You can help to lower your chance of infection at the site of your surgery by showering or bathing with a special soap called chlorhexidine gluconate (CHG). Germs live on your skin. This special soap will help lower the amount of germs so they do not get into your surgery site. Special points to know: Do not use this soap if you know that you are allergic to CHG. Shower or bathe with CHG the night before and the morning of surgery. Do not shave the area of your body where the surgery will be done within 7 days of surgery. The CHG may make your skin a little dry, but do not use lotion. Steps for Bathing: Wash your hair as usual with your normal shampoo. Rinse your hair and body well after you shampoo to get rid all of the shampoo. Wash gently with the CHG from the neck down, but do not scrub the skin to hard. Be sure to wash the area of your surgery very well. If showering, turn the water off while washing and then turn the water back onto rinse. Do not get CHG in the genital (private) area. Do not get CHG in the eyes, ears, nose or mouth. (If the soap gets into the eyes, flush them immediately with water). Do not wash with regular soap after CHG is used. Pat skin dry with a soft, clean towel. Patient should sleep in freshly laundered night clothes and report for surgery in clean clothes. documented in this encounter [facility] 04-20-2024 Miscellaneous Notes Talked to the patient and his regarding the pathology was back from 2nd opinion at [facility] and they stated that due to some intestinal cell contamination they can not give a definitive diagnosis. In speaking with Dr. Reeder he could repeat the procedure were would be at high-risk for pancreatic duct leak. As I discussed previously with the patient I rediscussed with them today that either way this is a high-risk lesion and that we should just surgically move ahead and resect it. They were in agreement with this answered several questions that they had. Patient will continue on the schedule path for surgery on May 09. documented in this encounter [facility] 04-20-2024 Telephone encounter Note Talked to the patient and his regarding the pathology was back from 2nd opinion at [facility] and they stated that due to some intestinal cell contamination they can not give a definitive diagnosis. In speaking with Dr. Reeder he could repeat the procedure were would be at high-risk for pancreatic duct leak. As I discussed previously with the patient I rediscussed with them today that either way this is a high-risk lesion and that we should just surgically move ahead and resect it. They were in agreement with this answered several questions that they had. Patient will continue on the schedule path for surgery on May 09. [facility] 04-16-2024 History of Present illness Narrative CHIEF COMPLAINT: Chief Complaint Patient presents with Follow-up Follow up hematoma on avf left arm.; patient has some soreness in left arm when stretching it HISTORY OF PRESENT ILLNESS: Zev Crystal is a 68 y.o. male who presents to the office today for evaluation of Left brachiocephalic AV fistula. Patient had infiltration of his left brachiocephalic AV fistula while using the fistula. There appeared to be lot of ecchymosis and bruising around it. Patient reports some pain and swelling in the left arm. It has improved since it happened last week. Patient otherwise has no new complaints. ALLERGIES: No Known Allergies MEDICATIONS: Current Outpatient Medications Medication Sig Dispense Refill atorvastatin (LIPITOR) 40 mg tablet Take 1 tablet (40 mg total) by mouth nightly Indications: high cholesterol. bumetanide (BUMEX) 1 mg tablet Take 3 tablets (3 mg total) by mouth daily Indications: edema with defective kidney function. carvedilol (COREG) 25 mg tablet Take 1 tablet (25 mg total) by mouth in the morning and 1 tablet (25 mg total) in the evening. Take with meals. Indications: high blood pressure. glimepiride (AMARYL) 2 mg tablet Take 1 tablet (2 mg total) by mouth every morning before breakfast. levothyroxine (SYNTHROID, LEVOTHROID) 50 MCG tablet Take 1 tablet (50 mcg total) by mouth in the morning. sevelamer (RENVELA) 800 mg tablet Take 1 tablet (800 mg total) by mouth in the morning and 1 tablet (800 mg total) at noon and 1 tablet (800 mg total) in the evening. Take with meals. ALPRAZolam (XANAX) 0.25 mg tablet Take 1 tablet (0.25 mg total) by mouth 3 (three) times a day as needed for anxiety. (Patient not taking: Reported on 04/10/2024) amLODIPine (NORVASC) 10 mg tablet Take 1 tablet (10 mg total) by mouth in the morning. (Patient not taking: Reported on 04/02/2024) wmfsgp-chqdzfcc-lhuhuzy (CREON) 36,000-114,000- 180,000 unit capsule,delayed release(DR/EC) Take 1 capsule (36,000 units of lipase total) by mouth in the morning and 1 capsule (36,000 units of lipase total) at noon and 1 capsule (36,000 units of lipase total) in the evening. Take with meals. (Patient not taking: Reported on 03/28/2024) 90 capsule 6 metFORMIN (GLUCOPHAGE) 500 mg tablet (Patient not taking: Reported on 04/10/2024) No current facility-administered medications for this visit. SOCIAL HISTORY: Social History Tobacco Use Smoking status: Former Average packs/day: 1 pack/day for 41.6 years (41.6 ttl pk-yrs) Types: Cigarettes Start date: 07/25/1982 Passive exposure: Current Smokeless tobacco: Never Tobacco comments: Currently smoking 1/2ppd. Smoked today 01/11/24 Substance Use Topics Alcohol use: No REVIEW OF SYSTEMS: Review of Systems Constitutional: Negative for activity change, appetite change, chills, fatigue, fever and unexpected weight change. HENT: Negative for facial swelling and trouble swallowing. Eyes: Negative for visual disturbance. Respiratory: Negative for chest tightness and shortness of breath. Cardiovascular: Negative for chest pain and leg swelling. Gastrointestinal: Positive for abdominal pain. Genitourinary: Negative for flank pain and frequency. Musculoskeletal: Positive for back pain. Negative for joint swelling. Skin: Negative for color change, pallor, rash and wound. Neurological: Negative for dizziness, syncope, facial asymmetry, speech difficulty, weakness, light-headedness and numbness. Hematological: Negative for adenopathy. PHYSICAL EXAM: Physical Exam Vitals reviewed. Constitutional: General: He is not in acute distress. Neck: Vascular: No JVD. Cardiovascular: Rate and Rhythm: Normal rate. Pulses: Radial pulses are 2+ on the right side and 2+ on the left side. Dorsalis pedis pulses are 2+ on the right side and 2+ on the left side. Posterior tibial pulses are 2+ on the right side and 2+ on the left side. Heart sounds: No murmur heard. Comments: No carotid bruits. Pulmonary: Breath sounds: Normal breath sounds. Abdominal: Palpations: Abdomen is soft. There is no mass. Tenderness: There is no abdominal tenderness. Musculoskeletal: General: No tenderness. Cervical back: Neck supple. Right lower leg: No edema. Left lower leg: No edema. Skin: General: Skin is warm. Coloration: Skin is not pale. Findings: No erythema. Neurological: Mental Status: He is alert and oriented to person, place, and time. VASCULAR EXAM: Vascular: Right Lower Extremity Right lower extremity pulses DP: 2+ PT: 2+ Right lower extremity edema: none Left Lower Extremity Left lower extremity pulses DP: 2+ PT: 2+ Left lower extremity edema: none Right Upper Extremity Right upper extremity pulses Radial: 2+ Right upper extremity edema: none Skin integrity: Negative for ulcer. Left Upper Extremity Left upper extremity pulses Radial: 2+ Left upper extremity edema: 1+ and pitting Skin integrity: Negative for ulcer. Vascular access: in left arm Positive for thrill, bruit, strong and normal. Thrill is strong. Bruit is normal. ASSESSMENT AND PLAN: Jose was seen today for follow-up. Diagnoses and all orders for this visit: Infrarenal abdominal aortic aneurysm (AAA) without rupture (CMS-HCC) PAD (peripheral artery disease) (CMS-HCC) Hypertrophic cardiomyopathy (CMS-HCC) Renal cell carcinoma (CMS-HCC) End stage renal disease (CMS-HCC) Left arm AV fistula has excellent thrill however there is a lot of swelling and bruising around it. I think patient needs to use the PermCath for the next 2 weeks to give the fistula some rest and for all the ecchymosis to go way and the swelling to go way as well. Continue dialysis through the PermCath. Resume dialysis through the fistula in 2 weeks. I will follow up with him in 3 months. If the fistula is used well after 2 weeks then we can remove the PermCath. documented in this encounter [facility] 04-10-2024 History of Present illness Narrative Hepatobiliary and Pancreas Surgery Clinic Note Treatment Team PCP: DYLAN MONTILLA MD Typing Bookkeeper: n/a Chief Complaint: Main duct IPMN, highly suspicious for pancreatic cancer HPI: Zev Crystal is a 68 y.o. 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 Patient follows with urology Dr. Telles for right renal cell carcinoma currently in remission. He is s/p open right parital nephrecomy 07/21/23 complicated with a endophytic mass. Patient continues to receive dialysis on Tuesday, , and Tuesday each week. Upon follow up CT A/P 01/27/24 patient had a pancreatic ductal dilation. This was initially imaged on MR abdomen 01/13/23. He was last seen in clinic on 02/16/24, at which time an MRI/MRCP was ordered. This demonstrated mild diffuse pancreatitis with mild apparent edematous change in the pancreas, increased marked dilation of the pancreatic duct with some narrowing in the pancreatic neck region, no definite enhancement within the filling defect within pancreatic head and neck. Also noted was the development of decreased signal in the lever and spleen, suggestive of iron overload. He then underwent EUS 04/04/24, which was highly suspicious for main duct IPMN. Cytology is currently pending review from [facility]. EUS 04/04/[address] Reeder: Erythematous duodenopathy. Normal second portion of the duodenum. Erythematous mucosa in the antrum. Biopsied. Normal esophagus. There was dilation in the entire main bile duct which measured up to 10 mm. A mass was identified in the pancreatic neck. Highly suspicious. Fine needle aspiration performed. Underlying main duct IPMN is suspected versus chronic pancreatitis with intraductal mass. Both scenarios are consistent with high-risk for malignancy. Cytology pending review from [facility]. ROS: As per HPI. Past Medical History: Past Medical History: Diagnosis Date AAA (abdominal aortic aneurysm) ([facility] monitoring Anxiety xanax prn Arthritis CKD (chronic kidney disease) stage 4, GFR 15-29 ml/min ([facility]) 06/2023 Dental disease crown front tooth states could fall out if hit hard enough Diabetes mellitus type 2, controlled ([facility]) Dialysis patient ([facility]) Claudio Campoverde Sat- Renal Atkinson Essential hypertension 02/23/2018 HL (hearing loss) hearing aid lt ear, deaf right ear Hypothyroidism Mixed hyperlipidemia 02/23/2018 Nicotine dependence 02/23/2018 Pancreatitis Peptic ulceration when he was younger Renal cell carcinoma ([facility]) right, left kidney atrophied Skin cancer BCC/SCC Varicella Visual impairment glasses prn Past Surgical History: Past Surgical History: Procedure Laterality Date BIOPSY MASS 04/01/2023 right kidney BRACHIAL CEPHALIC ARTERIOVENOUS FISTULA Left 01/11/2024 Performed by Zac Lombardi MD at [facility] CATHETER[facility] 2004 2007 [facility] CHOLECYSTECTOMY 2005 COLONOSCOPY 2012 ENDOSCOPIC ULTRASOUND UPPER N/A 04/04/2024 Performed by Polly Reeder MD at [facility] ESOPHAGOGASTRODUODENOSCOPY DIAGNOSTIC N/A 04/04/2024 Performed by Polly Reeder MD at [facility] EYE SURGERY NASAL SINUS SURGERY 2004 cleaned out NEPHRECTOMY PARTIAL OPEN(BIOBANK) Right 07/21/2023 Performed by Mary Telles MD at [facility] SK[facility] BIOPSY Several times STRABISMUS SURGERY 1961 VASECTOMY Family History: Family History Problem Relation Age of Onset Lung cancer Mother Brain cancer Mother Heart disease Father Diabetes Sister Diabetes Brother Stroke Paternal Grandmother Heart attack Paternal Grandfather Early Paternal Grandfather 40 Diabetes Son Cancer Half Brother thyroid and pancreatic Anesthesia problems Neg Hx Bleeding Disorder Neg Hx Clotting disorder Neg Hx Prostate cancer Neg Hx Colon cancer Neg Hx Kidney cancer Neg Hx Thyroid cancer Neg Hx Social History: Social History Socioeconomic History Marital status: Spouse name: Not on file Number of children: Not on file Years of education: Not on file Highest education level: Not on file Occupational History Not on file Tobacco Use Smoking status: Former Average packs/day: 1 pack/day for 41.6 years (41.6 ttl pk-yrs) Types: Cigarettes Start date: 07/25/1982 Passive exposure: Current Smokeless tobacco: Never Tobacco comments: Currently smoking 2ppd. 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 Worked at a [employer]. Has a dog in the home. Social Determinants of Health Financial Resource Strain: Not on file Food Insecurity: No Food Insecurity (04/07/2024) Hunger Screening Food Insecurity - Worry: Never True Food Insecurity - Inability: Never True Transportation Needs: No Transportation Needs (07/27/2023) PRAPARE - Transportation Lack of Transportation (Medical): No Lack of Transportation (Non-Medical): No Physical Activity: Not on file Stress: Not on file Social Connections: Not on file Interpersonal Safety: Unknown (09/15/2023) [facility] from [facility] [place] Safety & Environment Fear of Current or Ex-Partner: Not on file Emotionally Abused: Not on file Physically Abused: Not on file Sexually Abused: Not on file Physically or Sexually Abused: Not on file Housing Instability: Low Risk (07/27/2023) Housing Instability Housing Instability: No Allergies: No Known Allergies Current Medications: Current Outpatient Medications Medication Sig Dispense Refill atorvastatin (LIPITOR) 40 mg tablet Take 1 tablet (40 mg total) by mouth nightly Indications: high cholesterol. bumetanide (BUMEX) 1 mg tablet Take 3 tablets (3 mg total) by mouth daily Indications: edema with defective kidney function. carvedilol (COREG) 25 mg tablet Take 1 tablet (25 mg total) by mouth in the morning and 1 tablet (25 mg total) in the evening. Take with meals. Indications: high blood pressure. glimepiride (AMARYL) 2 mg tablet Take 1 tablet (2 mg total) by mouth every morning before breakfast. levothyroxine (SYNTHROID, LEVOTHROID) 50 MCG tablet Take 1 tablet (50 mcg total) by mouth in the morning. sevelamer (RENVELA) 800 mg tablet Take 1 tablet (800 mg total) by mouth in the morning and 1 tablet (800 mg total) at noon and 1 tablet (800 mg total) in the evening. Take with meals. ALPRAZolam (XANAX) 0.25 mg tablet Take 1 tablet (0.25 mg total) by mouth 3 (three) times a day as needed for anxiety. (Patient not taking: Reported on 04/10/2024) amLODIPine (NORVASC) 10 mg tablet Take 1 tablet (10 mg total) by mouth in the morning. (Patient not taking: Reported on 04/02/2024) pawbjv-ieetzbsb-qspgfnm (CREON) 36,000-114,000- 180,000 unit capsule,delayed release(DR/EC) Take 1 capsule (36,000 units of lipase total) by mouth in the morning and 1 capsule (36,000 units of lipase total) at noon and 1 capsule (36,000 units of lipase total) in the evening. Take with meals. (Patient not taking: Reported on 03/28/2024) 90 capsule 6 metFORMIN (GLUCOPHAGE) 500 mg tablet (Patient not taking: Reported on 04/10/2024) No current facility-administered medications for this visit. Objective: Vitals Vitals: 04/10/24 1522 BP: 152/87 Pulse: 72 Physical Exam Constitutional: He is oriented to person, place, and time. Appears well-developed and well-nourished. HENT: Normocephalic and atraumatic. Eyes: EOM are normal. Pupils are equal, round, and reactive to light. Neck: Normal range of motion. No tracheal deviation present. Cardiovascular: Normal rate, regular rhythm and normal heart sounds. Pulmonary/Chest Effort normal and breath sounds normal. Abdominal: Soft. Bowel sounds are normal. He exhibits no distension, no ascites and no mass. There is no tenderness. There is no rebound and no guarding. No hernia. Neurological: He is alert and oriented to person, place, and time. Skin Skin is warm. Psychiatric: Normal mood and affect. Behavior is normal. Judgment and thought content normal. Recent Labs Results Admission on 04/04/2024, Discharged on 04/04/2024 Component Date Value Ref Range Status Bedside glucose 04/04/2024 116 (H) 65 - 99 mg/dL Final Bedside glucose 04/04/2024 111 (H) 65 - 99 mg/dL Final Recent Radiology Studies MRI/MRCP 02/17/24: IMPRESSION: 1. Interval resection of previously noted anterior midpole right renal mass. Some mild heterogeneous signal persists in the region making evaluation somewhat difficult. New area noted on recent CT appears to represent some blood products likely in a small hemorrhagic cyst. Similar focus noted more inferiorly within anterior right kidney. No definite worrisome lesion identified. 2. There may be mild diffuse pancreatitis present with mild apparent edematous change in the pancreas. No peripancreatic fluid collection identified. Pancreas enhances normally. 3. Increased marked dilatation of pancreatic duct with some narrowing in pancreatic neck region. No definite enhancement within the filling defect within pancreatic head and neck region. 4. Interval development of decreased signal in liver and spleen since prior exam suggests iron overload. 5. Mild interval increase in mid abdominal aortic aneurysm today maximally 4.3 cm. 6. Unchanged biliary ductal dilatation. Reviewed imaging personally and agree with the official interpretation. 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 Discussed with the patient that because his pancreatic lesion is in the neck of the pancreas, he may require Whipple vs distal pancreatectomy with splenectomy. This decision would need to be made during the procedure based on intraoperative pathology of the pancreatic neck. Discussed the whipple procedure with the aide of diagrams. Discussed the risks, benefits, and alternative treatments. Specifically discussed the risks of bleeding, infection, anastomotic leak, pancreatic fistula, perioperative . Discussed expected postoperative course baring any complications. Discussed national and personal data. Personal operative mortality is 1.8%, 30 day overall mortality 5%, 90 day overall mortality is 7%. Pancreatic fistula rate is 11% and all have been Grade A fistulas. These are all at or better than all national standards. Further I have currently do at least 25 whipples in 12 months which is above that of the 12 whipples per year required for being considered a high volume whipple surgeon. Also discussed the distal pancreatectomy with splenectomy in detail. Discussed the risks, benefits, and alternative treatments. Specifically discussed the risks of bleeding, infection, and bile duct leaking, all less than 1%. Discussed expected postoperative course baring any complications. We will obtain risk stratification and optimization by caddy master prior to surgery. Patient follows with Dr. Mckinley Winkler, Cardiology. All questions were answered and informed consent was signed. Patient is scheduled for surgery on May 09. Scribed for and in the presence of Jeffrey Mcfadden MD by Sheree Aguilar (scribe). Sheree Aguilar 04/10/24 5023 PROVIDER STATEMENT I Jeffrey Mcfadden MD personally performed the services described in the documentation, as scribed by Sheree Aguilar in my presence, and it is both accurate and complete. Per ACS surgical risk calculator patient is above-average risk of serious complication at 33.3% versus the average of 27.7%. He has an average risk of any complication. He has an increased risk of pneumonia, cardiac complication, readmission, returned OR, at 4.7% versus 1.6% average. Also has an increased risk of discharge to [facility] or sepsis. He is below average risk of UTI or venous thromboembolism. Predicted length of stay is 7.5 days. I think his risk is probably slightly lower due to the fact the patient is on dialysis just recently and he has previously had a nephrectomy for renal cell cancer remotely. Please see media section of the chart for all the details of the report. Patient understands he is at increased risk however given the risk for harboring cancer he would like to proceed with surgery and I agree that is reasonable. documented [facility] History of Present illness Narrative CHIEF COMPLAINT: Chief Complaint Patient presents with Follow-up Follow up 6-8 weeks.Left AVF VS AVG creation on 01/11/2024. HISTORY OF PRESENT ILLNESS: Zev Crystal is a 68 y.o. male who presents to the office today for evaluation of End-stage renal disease and abdominal aortic aneurysm. Patient appears to be doing well. His left arm AV fistula has a very good thrill and bruit. The left antecubital fossa wound has healed well. Patient denies any abdominal pain or back pain. Patient has no new complaints. ALLERGIES: No Known Allergies MEDICATIONS: Current Outpatient Medications Medication Sig Dispense Refill ALPRAZolam (XANAX) 0.25 mg tablet Take 1 tablet (0.25 mg total) by mouth 3 (three) times a day as needed for anxiety. atorvastatin (LIPITOR) 40 mg tablet Take 1 tablet (40 mg total) by mouth nightly Indications: high cholesterol. bumetanide (BUMEX) 1 mg tablet Take 3 tablets (3 mg total) by mouth daily Indications: edema with defective kidney function. carvedilol (COREG) 25 mg tablet Take 1 tablet (25 mg total) by mouth in the morning and 1 tablet (25 mg total) in the evening. Take with meals. Indications: high blood pressure. glimepiride (AMARYL) 2 mg tablet Take 1 tablet (2 mg total) by mouth every morning before breakfast. levothyroxine (SYNTHROID, LEVOTHROID) 50 MCG tablet Take 1 tablet (50 mcg total) by mouth in the morning. sevelamer (RENVELA) 800 mg tablet Take 1 tablet (800 mg total) by mouth in the morning and 1 tablet (800 mg total) at noon and 1 tablet (800 mg total) in the evening. Take with meals. amLODIPine (NORVASC) 10 mg tablet Take 1 tablet (10 mg total) by mouth in the morning. (Patient not taking: Reported on 04/02/2024) hqwvrm-mjajqgur-owmuuuu (CREON) 36,000-114,000- 180,000 unit capsule,delayed release(DR/EC) Take 1 capsule (36,000 units of lipase total) by mouth in the morning and 1 capsule (36,000 units of lipase total) at noon and 1 capsule (36,000 units of lipase total) in the evening. Take with meals. (Patient not taking: Reported on 03/28/2024) 90 capsule 6 metFORMIN (GLUCOPHAGE) 500 mg tablet 1 tablet with a meal Orally Twice a day for 30 day(s) (Patient not taking: Reported on 02/14/2024) No current facility-administered medications for this visit. SOCIAL HISTORY: Social History Tobacco Use Smoking status: Former Current packs/day: 1.00 Average packs/day: 1 pack/day for 41.7 years (41.7 ttl pk-yrs) Types: Cigarettes Start date: 07/25/1982 Passive exposure: Current Smokeless tobacco: Never Tobacco comments: Currently smoking 12ppd. Smoked today 01/11/24 Substance Use Topics Alcohol use: No REVIEW OF SYSTEMS: Review of Systems Constitutional: Negative for activity change, appetite change, chills, fatigue, fever and unexpected weight change. HENT: Negative for facial swelling and trouble swallowing. Eyes: Negative for visual disturbance. Respiratory: Negative for chest tightness and shortness of breath. Cardiovascular: Negative for chest pain and leg swelling. Gastrointestinal: Negative for abdominal pain. Genitourinary: Negative for flank pain and frequency. Musculoskeletal: Negative for back pain and joint swelling. Skin: Negative for color change, pallor, rash and wound. Neurological: Negative for dizziness, syncope, facial asymmetry, speech difficulty, weakness, light-headedness and numbness. Hematological: Negative for adenopathy. PHYSICAL EXAM: Physical Exam Vitals reviewed. Constitutional: General: He is not in acute distress. Neck: Vascular: No JVD. Cardiovascular: Rate and Rhythm: Normal rate. Pulses: Radial pulses are 2+ on the right side and 2+ on the left side. Dorsalis pedis pulses are 2+ on the right side and 2+ on the left side. Posterior tibial pulses are 2+ on the right side and 2+ on the left side. Heart sounds: No murmur heard. Comments: No carotid bruits. Pulmonary: Breath sounds: Normal breath sounds. Abdominal: Palpations: Abdomen is soft. There is no mass. Tenderness: There is no abdominal tenderness. Musculoskeletal: General: No tenderness. Cervical back: Neck supple. Right lower leg: No edema. Left lower leg: No edema. Feet: Right foot: Skin integrity: No ulcer. Left foot: Skin integrity: No ulcer. Skin: General: Skin is warm. Coloration: Skin is not pale. Findings: No erythema. Neurological: Mental Status: He is alert and oriented to person, place, and time. VASCULAR EXAM: Vascular: Right Lower Extremity Right lower extremity pulses DP: 2+ PT: 2+ Right lower extremity edema: none Right Lower Extremity Skin Integrity: Negative for ulcer. Left Lower Extremity Left lower extremity pulses DP: 2+ PT: 2+ Left lower extremity edema: none Left Lower Extremity Skin Integrity: Negative for ulcer. Right Upper Extremity Right upper extremity pulses Radial: 2+ Left Upper Extremity Left upper extremity pulses Radial: 2+ Vascular access: fistula in left arm Positive for thrill, bruit, strong and normal. Thrill is strong. Bruit is normal. ASSESSMENT AND PLAN: Jose was seen today for follow-up. Diagnoses and all orders for this visit: Renal cell carcinoma ([facility]) - Vas aorta/iliac duplex complete; Future Infrarenal abdominal aortic aneurysm (AAA) without rupture ([facility]) - Vas aorta/iliac duplex complete; Future End stage renal disease ([facility]) Hypertrophic cardiomyopathy ([facility]) 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 Concerning the fistula, it appears that it is working well and they can use it at any time. Concerning the aneurysm the largest diameter was 4.6 cm and we will see him back in 6 months with a follow-up aortic duplex. documented in this encounter [facility] 03-28-2024 Instructions Formatting of th is note might be different from the original. Your surgery/procedure is scheduled at [facility] on 04/04/2024 at 1130 Arrival Time 930 [facility] Address: [address] [place] [address] in [address]ing lot located on [facility]. Report to the Entrance B. Check in at the information desk the surgery. The waiting room located on the second floor. If you have any questions prior to surgery, please call Pre-Admission Clinic at [phone] between 7:30 am and 4:30 pm Tuesday through Tuesday. If you have questions the morning of surgery, please call the Pre-op Department at [phone]. Notify your SURGEON if you develop any illness such as a cold, cough, fever, sore throat, vomiting or are hospitalized between now and your surgery. Medication Instructions (Do not stop your medications without consulting the prescribing physician). Take the following medications the morning of surgery with a sip of water: Carvedilol,levothyroxine,Xanax(if needed) Diabetic or Weight loss medications: HOLD-N/a LAST DOSE-N/a Take inhalers as prescribed the morning of surgery. Due to the risk associated with these medications. If these medications are not held per instruction below, your surgery is at an increased risk for cancellation. SGLT2 Medications- Hold 3 days prior to surgery: Jardiance, Empagliflozin, Farxiga, Dapagliflozin, Invokana, Canagliflozin GLP-1 Medications (Injection or Pill)- If taken daily hold day of surgery. If taken weekly, hold 1 week prior to surgery: Adlyxin, Byetta, Bydureon, Ozempic, Rybelsus,Trulicity, Victoza, Wegovy, Lixisenatide, Exenatide, Semaglutide, Dulaglutide, Liraglutide GIP/GLP-1(Injection or Pill)- If taken daily hold day of surgery. If taken weekly, hold 1 week prior to surgery: Jose Aunanilro . Blood thinners: Please contact your prescribing physician regarding a stop/hold date for these medications. Medications such as Coumadin, Heparin, Aspirin, Plavix, Eliquis, Pradaxa Diabetics: If you take insulin, contact your prescribing doctor for instructions on how to manage this the night before and the morning of surgery. Non-steriodal Anti-Inflammatory Drugs (NSAIDS)- Hold 3 days prior to surgery unless otherwise directed by your surgeon. Vitamins/Herbal Products: You may continue to take your prescribed vitamins such as potassium, iron, vitamin B, vitamin C, or multivitamin unless specifically instructed by your surgeon to hold. STOP taking all herbal products/teas one week prior to your surgery. Marijuana: Stop marijuana 72 hours prior to surgery, stop CBD oil 48 hours prior to surgery. If you have been given bowel prep instructions by your surgeon, please call the surgeon's office with any questions about these instructions. What do I do the day of Surgery? Age 2 through adult - Stop all solids by midnight, You may have clear liquids up to 2 hours before surgery, unless otherwise instructed by your surgeon. Clear liquids are: water, sports drinks such as Gatorade or G2, or apple juice. You may NOT have: tube feedings, dairy products, alcoholic beverages, orange juice, or any liquids with solids or pulp in it. If applicable, shower again with CHG soap the morning of your surgery. If you received a green plastic bracelet, bring it with you the day of surgery and your nurse will put it on you. In order to help prevent infection post-operatively, you may be asked to use a CHG mouthwash when you arrive to the Pre-op area. Your nurse will provide instruction the morning of. What do I need to do to prepare for surgery? If you will be going home the same day as your surgery, arrange for an adult over [address] Riding in a bus or taxi by yourself is not permitted. You should not smoke or drink alcohol 24 hours before your surgery. Alcohol thins the blood and may cause bleeding problems during surgery. Smoking increases the risk of breathing problems after surgery. Do not use lotions, creams, powders, perfume, make up, cologne or after-shaves day of surgery. Remove ALL jewelry including wedding rings, body piercings (including dermal piercings ,hair extensions that contain metal, nail citizen [place], make-up, and contact lens. You may brush your teeth the morning of surgery, but do not swallow the water. Wear your dentures and partial plates to the hospital (no adhesive). Shower the night the before. If applicable, use the CHG (chlorhexidine gluconate) soap or wipes What should I bring to the hospital? If you received a green plastic bracelet, bring it with you the day of surgery and your nurse will put it on you. Eyeglass or contact lens case If you will be spending the night, please bring personal care items and leave them in the car until you are taken to your room after surgery. Leave ALL valuables at home. If any of these instructions conflict with those you received from the surgeon, please seek clarification from your surgeon's office. DEEP BREATHING EXERCISES This exercise helps promote good air exchange and helps to prevent pneumonia after surgery. Breathe in slowly and deeply through the nose. Hold your breath for a few seconds and then exhale slowly through the mouth. Repeat this three times and then cough.Coughing helps to clear your lungs. If you have had a surgery with an incision into your abdomen or chest, press gently against your incision with a pillow or a folded blanket when you cough. Please be aware - it may not be gar to cough following some types of surgeries involving the eyes, ears, sinuses and throat. Always follow your doctor's instructions. LEG EXERCISE These exercises help promote good circulation and help to prevent blood clots after surgery. Point your toes to the ceiling and then point them to the wall. Do this slowly about 15-20 times. You may also move your feet in circles. Do the exercise that is most comfortable for you. If you have had surgery involving your shoulder or arm, we recommend you move your fingers. PRACTICING We ask that you begin practicing these exercises before your surgery. After surgery try to do both exercises at least every 2 hours during the day and early evening. SURGICAL SITE INFECTION PREVENTION What is a Surgical Site Infection? Infection can happen to the area of the body where surgery is done. This is called a surgical site infection (SSI). A SSI does not happen very often. Can SSIs be treated? Antibiotics are used to treat SSI. Some patients may need another surgery to treat the infection. The doctor will discuss treatment options with you. What are some of the things that hospitals are doing to prevent SSIs? Soap and water or alcohol hand rub are used before and after caring for each patient. Special soap is used to clean surgery workers hands and arms just before the surgery. Masks, gowns, gloves and hair covers are worn during the surgery to keep the area clean. Hair in the surgery area may be removed with clippers (not razors). A special soap that kills germs is used to clean the skin at the surgery site. Antibiotics may be given before the surgery starts. What can you do to prevent SSIs? Before surgery: You may be asked to shower or bathe with a special soap that kills germs the night before and the day of surgery. Use the soap as you were told. If you smoke, stop or cut down. Ask your doctor about ways to quit. Do not shave near where you will have surgery. Shaving can irritate the skin and make it easier to get and infection. After surgery: Be sure that the doctors and nurses clean their hands before and after touching you. Be sure your family and friends clean their hands before and after visiting you. Do not be afraid to remind them. * Care for your wound at home as told by your doctor or nurse * Call your doctor right away if you have fever, redness, increased pain, or drainage at the surgery site. Further questions? Contact the doctor, nurse or the Infection Prevention and Control department if you have any questions. PATIENT RIGHTS AND RESPONSIBILITIES As a patient at [facility], you have the right to: Receive medical care and be informed of who is taking care of you Be treated with dignity and respect Have a family member/shipping services sales representative of choice and your physician notified of your admission Receive information and actively participate in decisions about your care and treatment Refuse care, treatment and services Decide who may provide your support and speak for you Access restoration and spiritual services Participate in ethical issues and questions about your care Receive private and confidential care Have appropriate assessment and management of your pain Know guest visitation restrictions or limitations Have an advance directive Access protective services Consent or refuse to participate in research studies or production or recordings, films or other images Have resolution of your complaints Receive information of hospital charges and payment methods Patient/patient shipping services sales representative responsibilities are to: Provide information about health status to facilitate care, treatment and services Follow the treatment, plan, keep appointments and speak up when you do not understand the plan Respect the rights of other patients and healthcare personnel Follow organizational rules and regulations that support quality care and a safe environment Fulfill financial obligations as promptly as possible [facility] 03-28-2024 Miscellaneous Notes Your surgery/procedure is scheduled at [facility] on 04/04/2024 at 1130 Arrival Time 930 [facility] Address: [address] [place] [address]. [place] [address] Park in Parking lot located on [facility]. Report to the Entrance B. Check in at the information desk the surgery. The waiting room located on the second floor. If you have any questions prior to surgery, please call Pre-Admission Clinic at [phone] between 7:30 am and 4:30 pm Tuesday through Tuesday. If you have questions the morning of surgery, please call the Pre-op Department at [phone]. Notify your SURGEON if you develop any illness such as a cold, cough, fever, sore throat, vomiting or are hospitalized between now and your surgery. Medication Instructions (Do not stop your medications without consulting the prescribing physician). Take the following medications the morning of surgery with a sip of water: Carvedilol,levothyroxine,Xanax(if needed) Diabetic or Weight loss medications: HOLD-N/a LAST DOSE-N/a Take inhalers as prescribed the morning of surgery. Due to the risk associated with these medications. If these medications are not held per instruction below, your surgery is at an increased risk for cancellation. SGLT2 Medications- Hold 3 days prior to surgery: Jardiance, Empagliflozin, Farxiga, Dapagliflozin, Invokana, Canagliflozin GLP-1 Medications (Injection or Pill)- If taken daily hold day of surgery. If taken weekly, hold 1 week prior to surgery: Adlyxin, Byetta, Bydureon, Ozempic, Rybelsus,Trulicity, Victoza, Wegovy, Lixisenatide, Exenatide, Semaglutide, Dulaglutide, Liraglutide GIP/GLP-1(Injection or Pill)- If taken daily hold day of surgery. If taken weekly, hold 1 week prior to surgery: Jose Aunjaro . Blood thinners: Please contact your prescribing physician regarding a stop/hold date for these medications. Medications such as Coumadin, Heparin, Aspirin, Plavix, Eliquis, Pradaxa Diabetics: If you take insulin, contact your prescribing doctor for instructions on how to manage this the night before and the morning of surgery. Non-steriodal Anti-Inflammatory Drugs (NSAIDS)- Hold 3 days prior to surgery unless otherwise directed by your surgeon. Vitamins/Herbal Products: You may continue to take your prescribed vitamins such as potassium, iron, vitamin B, vitamin C, or multivitamin unless specifically instructed by your surgeon to hold. STOP taking all herbal products/teas one week prior to your surgery. Marijuana: Stop marijuana 72 hours prior to surgery, stop CBD oil 48 hours prior to surgery. If you have been given bowel prep instructions by your surgeon, please call the surgeon's office with any questions about these instructions. What do I do the day of Surgery? Age 2 through adult - Stop all solids by midnight, You may have clear liquids up to 2 hours before surgery, unless otherwise instructed by your surgeon. Clear liquids are: water, sports drinks such as Gatorade or G2, or apple juice. You may NOT have: tube feedings, dairy products, alcoholic beverages, orange juice, or any liquids with solids or pulp in it. If applicable, shower again with CHG soap the morning of your surgery. If you received a green plastic bracelet, bring it with you the day of surgery and your nurse will put it on you. In order to help prevent infection post-operatively, you may be asked to use a CHG mouthwash when you arrive to the Pre-op area. Your nurse will provide instruction the morning of. What do I need to do to prepare for surgery? If you will be going home the same day as your surgery, arrange for an adult over [address] Riding in a bus or taxi by yourself is not permitted. You should not smoke or drink alcohol 24 hours before your surgery. Alcohol thins the blood and may cause bleeding problems during surgery. Smoking increases the risk of breathing problems after surgery. Do not use lotions, creams, powders, perfume, make up, cologne or after-shaves day of surgery. Remove ALL jewelry including wedding rings, body piercings (including dermal piercings ,hair extensions that contain metal, nail [place], make-up, and contact lens. You may brush your teeth the morning of surgery, but do not swallow the water. Wear your dentures and partial plates to the hospital (no adhesive). Shower the night the before. If applicable, use the CHG (chlorhexidine gluconate) soap or wipes What should I bring to the hospital? If you received a green plastic bracelet, bring it with you the day of surgery and your nurse will put it on you. Eyeglass or contact lens case If you will be spending the night, please bring personal care items and leave them in the car until you are taken to your room after surgery. Leave ALL valuables at home. If any of these instructions conflict with those you received from the surgeon, please seek clarification from your surgeon's office. DEEP BREATHING EXERCISES This exercise helps promote good air exchange and helps to prevent pneumonia after surgery. Breathe in slowly and deeply through the nose. Hold your breath for a few seconds and then exhale slowly through the mouth. Repeat this three times and then cough.Coughing helps to clear your lungs. If you have had a surgery with an incision into your abdomen or chest, press gently against your incision with a pillow or a folded blanket when you cough. Please be aware - it may not be gar to cough following some types of surgeries involving the eyes, ears, sinuses and throat. Always follow your doctor's instructions. LEG EXERCISE These exercises help promote good circulation and help to prevent blood clots after surgery. Point your toes to the ceiling and then point them to the wall. Do this slowly about 15-20 times. You may also move your feet in circles. Do the exercise that is most comfortable for you. If you have had surgery involving your shoulder or arm, we recommend you move your fingers. PRACTICING We ask that you begin practicing these exercises before your surgery. After surgery try to do both exercises at least every 2 hours during the day and early evening. SURGICAL SITE INFECTION PREVENTION What is a Surgical Site Infection? Infection can happen to the area of the body where surgery is done. This is called a surgical site infection (SSI). A SSI does not happen very often. Can SSIs be treated? Antibiotics are used to treat SSI. Some patients may need another surgery to treat the infection. The doctor will discuss treatment options with you. What are some of the things that hospitals are doing to prevent SSIs? Soap and water or alcohol hand rub are used before and after caring for each patient. Special soap is used to clean surgery workers hands and arms just before the surgery. Masks, gowns, gloves and hair covers are worn during the surgery to keep the area clean. Hair in the surgery area may be removed with clippers (not razors). A special soap that kills germs is used to clean the skin at the surgery site. Antibiotics may be given before the surgery starts. What can you do to prevent SSIs? Before surgery: You may be asked to shower or bathe with a special soap that kills germs the night before and the day of surgery. Use the soap as you were told. If you smoke, stop or cut down. Ask your doctor about ways to quit. Do not shave near where you will have surgery. Shaving can irritate the skin and make it easier to get and infection. After surgery: Be sure that the doctors and nurses clean their hands before and after touching you. Be sure your family and friends clean their hands before and after visiting you. Do not be afraid to remind them. * Care for your wound at home as told by your doctor or nurse * Call your doctor right away if you have fever, redness, increased pain, or drainage at the surgery site. Further questions? Contact the doctor, nurse or the Infection Prevention and Control department if you have any questions. PATIENT RIGHTS AND RESPONSIBILITIES As a patient at [facility], you have the right to: Receive medical care and be informed of who is taking care of you Be treated with dignity and respect Have a family member/shipping services sales representative of choice and your physician notified of your admission Receive information and actively participate in decisions about your care and treatment Refuse care, treatment and services Decide who may provide your support and speak for you Access restoration and spiritual services Participate in ethical issues and questions about your care Receive private and confidential care Have appropriate assessment and management of your pain Know guest visitation restrictions or limitations Have an advance directive Access protective services Consent or refuse to participate in research studies or production or recordings, films or other images Have resolution of your complaints Receive information of hospital charges and payment methods Patient/patient shipping services sales representative responsibilities are to: Provide information about health status to facilitate care, treatment and services Follow the treatment, plan, keep appointments and speak up when you do not understand the plan Respect the rights of other patients and healthcare personnel Follow organizational rules and regulations that support quality care and a safe environment Fulfill financial obligations as promptly as possible documented in this encounter [facility] 03-06-2024 Miscellaneous Notes Images from the original note were not included. Domo Crystal CMA 03/06/24 12:48 PM Note [employer] Update per patient's - Medication will cost over $500.00. Could you please assist with PA or patient Assistance program? Thank You Called Loni,patient's and informed of [employer] patient assistance program also provided Katya Wang's phone# [phone]. Message sent to Katya to initiate paperwork. documented in this encounter [facility] [employer] [facility] 03-06-2024 Telephone encounter Note Images from the original note were not included. Domo Crystal CMA 03/06/24 12:48 PM Note Creon Update per patient's - Medication will cost over $500.00. Could you please assist with PA or patient Assistance program? Thank You [facility] 03-06-2024 Telephone encounter Note Called Loni,patient's and informed of [employer] patient assistance program also provided Katya Wang's phone# [phone]. Message sent to Katya to initiate paperwork. [facility] History of Present illness Narrative [facility] New Patient Visit - GI Consult Subjective: Patient ID: Zev Crystal is a 68 y.o. male. HPI Zev Crystal is a 68 y.o. male presenting for evaluation of pancreatic ductal dilation, as referred by Dr. Jeffrey Mcfadden. Patient follows with urology Dr. Telles for right renal cell carcinoma currently in remission. He is s/p open right parital nephrecomy 07/21/23 complicated with a endophytic mass. Upon follow up CT A/P 01/27/24 patient had a pancreatic ductal dilation. This was initially imaged on MR abdomen 01/13/23. He does have a history of multiple episodes of pancreatitis, with hospitalizations in 2017, then 2019. Patient was evaluated by Dr. Mcfadden on 02/14/24, who recommended EUS for further evaluation of pancreatic duct dilation. Patient reports both episode of pancreatitis in 2017 and 2018 were due to alcohol abuse. He stopped drinking alcohol in November 2022. Prior to cessation, he had been drinking for 20-30 years. He is a nonsmoker. Patient does experience some nausea, though this has presented since his partial nephrectomy. He estimates bowel movements about every 1-2 days. Patient had a colonoscopy in 2012, which was normal without polyps. He has not had a repeat screening colonoscopy. His notes an increase in abdominal discomfort, which he associates with constipation. He is not anticoagulated. Patient does have a history of hypertension. Previous GI Workup: - MR abdomen w/wo contrast 01/13/23: IMPRESSION: * Solid enhancing, predominantly endophytic, 2.7 cm mass in the anterior, midpole the right kidney, which abuts the renal sinus fat along the posterior inferior margin; compatible with benign or malignant neoplasm, malignant etiology is favored given the development since 2018 CT. No adenopathy. No tumor in the vein. * Dilated and ectatic main pancreatic duct with prominent side branches, likely secondary to sequelae of prior pancreatitis; no MR evidence of pancreatic mass. Consultation with gastroenterology is recommended for clinical determination of need for ERCP/EUS versus surveillance MRCP given the mildly prominent bile duct as well. * Abdominal aortic aneurysm measuring up to 4.3 cm in axial diameter. Recommend follow-up CTA or MRA in 1 year. Consider referral for monitoring for endovascular or surgical intervention if not already established. - CT Abdomen with contrast 01/27/24: IMPRESSION: * Interval partial right nephrectomy with lenticular hyperdensity along the anterior right renal midpole, favor small hematoma or potentially rupture of hemorrhagic/proteinaceous cyst. Attention on follow-up. * Somewhat masslike abnormality of the right upper kidney, new since 01/13/2023, could reflect infectious/ischemic etiology. Emerging secondary neoplasm remains to be excluded, however. Repeat MRI in 1-3 months may be prudent. * Significant pancreatic ductal dilation, thought similar to 01/13/2023. Potential debris or soft tissue stricture at the pancreatic head.. Consider repeat MRCP for better characterization (and more direct comparison). EUS/ERCP could also be considered. * Redemonstrated abdominal aortic aneurysm, warranting continued subspecialty follow-up. - MRI/MRCP 02/17/24: IMPRESSION: 1. Interval resection of previously noted anterior midpole right renal mass. Some mild heterogeneous signal persists in the region making evaluation somewhat difficult. New area noted on recent CT appears to represent some blood products likely in a small hemorrhagic cyst. Similar focus noted more inferiorly within anterior right kidney. No definite worrisome lesion identified. 2. There may be mild diffuse pancreatitis present with mild apparent edematous change in the pancreas. No peripancreatic fluid collection identified. Pancreas enhances normally. 3. Increased marked dilatation of pancreatic duct with some narrowing in pancreatic neck region. No definite enhancement within the filling defect within pancreatic head and neck region. 4. Interval development of decreased signal in liver and spleen since prior exam suggests iron overload. 5. Mild interval increase in mid abdominal aortic aneurysm today maximally 4.3 cm. 6. Unchanged biliary ductal dilatation. Past Medical History: Diagnosis Date AAA (abdominal aortic aneurysm) [place] monitoring Anxiety xanax prn Arthritis Dental disease crown front tooth states could fall out if hit hard enough Diabetes mellitus type 2, controlled ([facility]) Dialysis patient ([facility]) claudio velasquez sat [facility] Essential hypertension 02/23/2018 HL (hearing loss) hearing aid lt ear, deaf right ear Hypothyroidism Mixed hyperlipidemia 02/23/2018 Nicotine dependence 02/23/2018 Pancreatitis Peptic ulceration when he was younger Renal cell carcinoma ([facility]) right, left kidney atrophied Skin cancer BCC/SCC Varicella Visual impairment prescribed but does not wear Past Surgical History: Procedure Laterality Date BIOPSY MASS 04/01/2023 right kidney BRACHIAL CEPHALIC ARTERIOVENOUS FISTULA Left 01/11/2024 Performed by Zac Lombardi MD at [facility] CARDIAC CATHETERIZATION 2004 2007 [facility] CHOLECYSTECTOMY 2005 COLONOSCOPY 2012 EYE SURGERY NASAL SINUS SURGERY 2003 cleaned out NEPHRECTOMY PARTIAL OPEN(BIOBANK) Right 07/21/2023 Performed by Mary Telles MD at [facility] SKIN BIOPSY Several times STRABISMUS SURGERY 1961 VASECTOMY Current Medications: Current Outpatient Medications: ALPRAZolam (XANAX) 0.25 mg tablet, Take 1 tablet (0.25 mg total) by mouth 3 (three) times a day as needed for anxiety., Disp: , Rfl: atorvastatin (LIPITOR) 40 mg tablet, Take 1 tablet (40 mg total) by mouth nightly Indications: high cholesterol., Disp: , Rfl: bumetanide (BUMEX) 1 mg tablet, Take 3 tablets (3 mg total) by mouth daily., Disp: , Rfl: carvedilol (COREG) 25 mg tablet, Take 1 tablet (25 mg total) by mouth in the morning and 1 tablet (25 mg total) in the evening. Take with meals. Indications: high blood pressure., Disp: , Rfl: glimepiride (AMARYL) 2 mg tablet, Take 1 tablet (2 mg total) by mouth every morning before breakfast., Disp: , Rfl: levothyroxine (SYNTHROID, LEVOTHROID) 50 MCG tablet, Take 1 tablet (50 mcg total) by mouth in the morning., Disp: , Rfl: bisacodyL (DULCOLAX) 5 mg EC tablet, Take 2 tablets (10 mg total) by mouth once for 1 dose. Take as instructed, Disp: 2 tablet, Rfl: 0 metFORMIN (GLUCOPHAGE) 500 mg tablet, 1 tablet with a meal Orally Twice a day for 30 day(s) (Patient not taking: Reported on 02/14/2024), Disp: , Rfl: polyethylene glycol-electrolytes (NULYTELY) 420 gram solution, Take 4,000 mL by mouth once for 1 dose. Take as instructed, Disp: 4000 mL, Rfl: 0 I reviewed and reconciled this patient's medication list today. ALLERGIES: Patient has no known allergies. SOCIAL HISTORY: Social History Tobacco Use Smoking status: Every Day Current packs/day: 1.00 Average packs/day: 1 pack/day for 40.0 years (40.0 ttl pk-yrs) Types: Cigarettes Passive exposure: Current Smokeless tobacco: Never Tobacco comments: Currently smoking 1/2ppd. Smoked today 01/11/24 Vaping Use Vaping status: Never Used Substance Use Topics Alcohol use: No Drug use: Not Currently Types: Marijuana FAMILY HISTORY: Family History Problem Relation Age of Onset Lung cancer Mother Brain cancer Mother Heart disease Father Diabetes Sister Diabetes Brother Stroke Paternal Grandmother Heart attack Paternal Grandfather Early Paternal Grandfather 40 Diabetes Son Cancer Half Brother thyroid and pancreatic Anesthesia problems Neg Hx Bleeding Disorder Neg Hx Clotting disorder Neg Hx Prostate cancer Neg Hx Colon cancer Neg Hx Kidney cancer Neg Hx Thyroid cancer Neg Hx Review of Systems Constitutional: Negative for chills, fatigue, fever and unexpected weight change. HENT: Negative for trouble swallowing. Respiratory: Negative for cough, chest tightness and shortness of breath. Cardiovascular: Negative for chest pain and palpitations. Gastrointestinal: Negative for nausea and vomiting. Objective: Physical Exam HENT: Head: Normocephalic and atraumatic. Pulmonary: Effort: Pulmonary effort is normal. Breath sounds: Normal breath sounds. Abdominal: General: Bowel sounds are normal. There is no distension. Palpations: Abdomen is soft. Tenderness: There is no abdominal tenderness. Neurological: Mental Status: He is alert and oriented to person, place, and time. Psychiatric: Behavior: Behavior normal. DATA: CBC: Lab Results Component Value Date WBC 5.6 07/27/2023 HGB 9.4 (L) 07/27/2023 HCT 26.7 (L) 07/27/2023 MCV 89 07/27/2023 RDW 12.8 07/27/2023 PLT 195 07/27/2023 CMP: Lab Results Component Value Date K 4.3 07/27/2023 CL 101 07/27/2023 CO2 27 07/27/2023 BUN 40 (H) 07/27/2023 GLU 132 (H) 07/27/2023 Assessment/Plan: Zev Crystal is a 68 y.o. male with history of renal cell carcinoma status post resection in remission. Known to have alcoholic chronic pancreatitis. New finding of neck of pancreas stricture/mass versus chronic pancreatitis changes. Will proceed with EUS for further investigation. Recommend EUS evaluation of pancreatic duct stricture/dilation. Discussed risks, benefits, and alternatives of the procedure in detail, risks including but not limited to infection, aspiration, perforation, bleeding. We particularly discussed risk of pancreatitis in great details. Patient requested we proceed with the procedure. Discussed the possibility of needle biopsy during EUS for pathologic evaluation, if a mass is noted to be present. Might need to proceed with ERCP on a different date if this turns out to be stone/stricture that requires further intervention Advised patient on symptoms which would require intervention including: abdominal pain radiating to the back, unintentional weight loss, jaundice, newly onset diabetes or blood clots with no obvious cause. Patient is asymptomatic since alcohol cessation. Will proceed with screening colonoscopy after evaluation of colorectal cancer screening on a different date. Recommend patient start taking Miralax once per day for his constipation. If symptoms persist, contact the office to adjust medications. Fecal elastase to be done as a baseline for suspected pancreatic insufficiency. Please note that portions of this note were generated using voice recognition M*Modal dictation software. Although every effort was made to ensure the accuracy of this automated siene maker, some errors in siene maker may have occurred. Scribed for and in the presence of Polly Reeder MD by Sheree Aguilar ([email or web address]). I, Polly Reeder MD personally performed the services described in the documentation, as scribed by Sheree ([email or web address]) in my presence, and it is both accurate and complete. Polly Reeder MD [facility] [place] [address] PH: [phone] Sheree Aguilar 02/29/24 1133 documented in this encounter [facility] 02-16-2024 History of Present illness Narrative Nursing staff from Dr. Donnelly's office called this morning stating after review of this patient's chart for the referral that they would like us to place an order for an MRCP MRI stat for evaluation in order to do planning for EUS. Order was placed today and patient was called by our clinical staff to update on the need to schedule this FLAVIA Sierra 02/16/24 0857 documented in this encounter [facility] 02-14-2024 History of Present illness Narrative Hepatobiliary and Pancreas Surgery Consultation Treatment Team PCP: DYLAN MONTILLA MD Typing Bookkeeper: none Chief Complaint: Pancreatic duct dilation Pancreatic lesion HPI: Zev Crystal is a 68 y.o. male presenting for evaluation of pancreatic ductal dilation. Patient follows with urology Dr. Telles for right renal cell carcinoma currently in remission. He is s/p open right parital nephrecomy 07/21/23 complicated with a endophytic mass. Upon follow up CT A/P 01/27/24 patient had a pancreatic ductal dilation. This was initially imaged on MR abdomen 01/13/23. Patient has end stage renal disease on hemodialysis. Patient has not seen GI for this issue. He denies any nausea, vomiting, unintentional weight loss. He notes that he has intermittent epigastric pain following meals. Family History of Pancreatic Cancer: yes, through his brother. Personal History of Pancreatitis: yes, with two hospitalizations. Once in 2018, then . Genetic Testing: no ROS: Constitutional: Negative. HENT: Negative. Eyes: Negative. Respiratory: Negative. Cardiovascular: Negative. Gastrointestinal: Negative. Endocrine: Negative. Genitourinary: Negative. Musculoskeletal: Negative. Skin: Negative. Allergic/Immunologic Negative. Neurological: Negative. Hematological: Negative. Psychiatric/Behavioral: Negative. Past Medical History: Past Medical History: Diagnosis Date AAA (abdominal aortic aneurysm) ([facility] monitoring Anxiety xanax prn Arthritis Dental disease crown front tooth states could fall out if hit hard enough Diabetes mellitus type 2, controlled ([facility]) Dialysis patient ([facility]) claudio velasquez sat us renal in [facility] Essential hypertension 02/23/2018 HL (hearing loss) hearing aid lt ear, deaf right ear Hypothyroidism Mixed hyperlipidemia 02/23/2018 Nicotine dependence 02/23/2018 Pancreatitis Peptic ulceration when he was younger Renal cell carcinoma ([facility]) right, left kidney atrophied Skin cancer BCC/SCC Varicella Visual impairment prescribed but does not wear Past Surgical History: Past Surgical History: Procedure Laterality Date BIOPSY MASS 04/01/2023 right kidney BRACHIAL CEPHALIC ARTERIOVENOUS FISTULA Left 01/11/2024 Performed by Zac Lombardi MD at [facility] CATHETERIZATION 2004 2007 [facility] CHOLECYSTECTOMY 2005 COLONOSCOPY 2012 EYE SURGERY NASAL SINUS SURGERY 2004 cleaned out NEPHRECTOMY PARTIAL OPEN(BIOBANK) Right 07/21/2023 Performed by Mary Telles MD at [facility] BIOPSY Several times STRABISMUS SURGERY 1961 VASECTOMY Family History: Family History Problem Relation Age of Onset Lung cancer Mother Brain cancer Mother Heart disease Father Diabetes Sister Diabetes Brother Stroke Paternal Grandmother Heart attack Paternal Grandfather Early Paternal Grandfather 40 Diabetes Son Cancer Half Brother thyroid and pancreatic Anesthesia problems Neg Hx Bleeding Disorder Neg Hx Clotting disorder Neg Hx Prostate cancer Neg Hx Colon cancer Neg Hx Kidney cancer Neg Hx Thyroid cancer Neg Hx Social History: Social History Socioeconomic History Marital status: Spouse name: Not on file Number of children: Not on file Years of education: Not on file Highest education level: Not on file Occupational History Not on file Tobacco Use Smoking status: Every Day Current packs/day: 1.00 Average packs/day: 1 pack/day for 40.0 years (40.0 ttl pk-yrs) Types: Cigarettes Passive exposure: Current Smokeless tobacco: Never Tobacco comments: Currently smoking 1/2ppd. 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 Worked at a [employer]. Has a dog in the home. Social Determinants of Health Financial Resource Strain: Not on file Food Insecurity: No Food Insecurity (02/03/2024) Hunger Screening Food Insecurity - Worry: Never True Food Insecurity - Inability: Never True Transportation Needs: No Transportation Needs (07/27/2023) PRAPARE - Transportation Lack of Transportation (Medical): No Lack of Transportation (Non-Medical): No Physical Activity: Not on file Stress: Not on file Social Connections: Not on file Interpersonal Safety: Unknown (09/15/2023) [facility]ceived from [facility] Safety & Environment Fear of Current or Ex-Partner: Not on file Emotionally Abused: Not on file Physically Abused: Not on file Sexually Abused: Not on file Physically or Sexually Abused: Not on file Housing Instability: Low Risk (07/27/2023) Housing Instability Housing Instability: No Allergies: No Known Allergies Current Medications: Current Outpatient Medications Medication Sig Dispense Refill ALPRAZolam (XANAX) 0.25 mg tablet Take 1 tablet (0.25 mg total) by mouth 3 (three) times a day as needed for anxiety. atorvastatin (LIPITOR) 40 mg tablet Take 1 tablet (40 mg total) by mouth nightly Indications: high cholesterol. bumetanide (BUMEX) 1 mg tablet Take 3 tablets (3 mg total) by mouth daily. carvedilol (COREG) 25 mg tablet Take 1 tablet (25 mg total) by mouth in the morning and 1 tablet (25 mg total) in the evening. Take with meals. Indications: high blood pressure. glimepiride (AMARYL) 2 mg tablet Take 1 tablet (2 mg total) by mouth every morning before breakfast. levothyroxine (SYNTHROID, LEVOTHROID) 50 MCG tablet Take 1 tablet (50 mcg total) by mouth in the morning. metFORMIN (GLUCOPHAGE) 500 mg tablet 1 tablet with a meal Orally Twice a day for 30 day(s) (Patient not taking: Reported on 02/14/2024) No current facility-administered medications for this visit. Objective: Vitals Vitals: 02/14/24 1419 BP: 150/87 Pulse: 80 Physical Exam Dialysis catheter on the right side. Constitutional: He is oriented to person, place, and time. Appears well-developed and well-nourished. HENT: Normocephalic and atraumatic. Eyes: EOM are normal. Pupils are equal, round, and reactive to light. Neck: Normal range of motion. No tracheal deviation present. Cardiovascular: Normal rate, regular rhythm and normal heart sounds. Pulmonary/Chest Effort normal and breath sounds normal. Abdominal: Soft. Bowel sounds are normal. He exhibits no distension, no ascites and no mass. There is no tenderness. There is no rebound and no guarding. No hernia. Neurological: He is alert and oriented to person, place, and time. Skin Skin is warm. Psychiatric: Normal mood and affect. Behavior is normal. Judgment and thought content normal. Recent Labs Results Office Visit on 02/03/2024 Component Date Value Ref Range Status Volume 02/03/2024 72 cc's Final Recent Radiology Studies MR abdomen w/wo contrast 01/13/23: IMPRESSION: * Solid enhancing, predominantly endophytic, 2.7 cm mass in the anterior, midpole the right kidney, which abuts the renal sinus fat along the posterior inferior margin; compatible with benign or malignant neoplasm, malignant etiology is favored given the development since 2018 CT. No adenopathy. No tumor in the vein. * Dilated and ectatic main pancreatic duct with prominent side branches, likely secondary to sequelae of prior pancreatitis; no MR evidence of pancreatic mass. Consultation with gastroenterology is recommended for clinical determination of need for ERCP/EUS versus surveillance MRCP given the mildly prominent bile duct as well. * Abdominal aortic aneurysm measuring up to 4.3 cm in axial diameter. Recommend follow-up CTA or MRA in 1 year. Consider referral for monitoring for endovascular or surgical intervention if not already established. CT Abdomen with contrast 01/27/24: IMPRESSION: * Interval partial right nephrectomy with lenticular hyperdensity along the anterior right renal midpole, favor small hematoma or potentially rupture of hemorrhagic/proteinaceous cyst. Attention on follow-up. * Somewhat masslike abnormality of the right upper kidney, new since 01/13/2023, could reflect infectious/ischemic etiology. Emerging secondary neoplasm remains to be excluded, however. Repeat MRI in 1-3 months may be prudent. * Significant pancreatic ductal dilation, thought similar to 01/13/2023. Potential debris or soft tissue stricture at the pancreatic head.. Consider repeat MRCP for better characterization (and more direct comparison). EUS/ERCP could also be considered. * Redemonstrated abdominal aortic aneurysm, warranting continued subspecialty follow-up. Reviewed imaging personally and agree with the official interpretation. Assessment/Plan Pancreatic duct dilation Pancreatic lesion Discussed with patient that this pancreatic duct dilation could be secondary to his past pancreatitis episodes. Reviewed imaging with patient, which demonstrated an area of concern. This would be further evaluated with an EUS. Discussed the possible diagnosis that could result of this. If this is malignant patient would be a candidate for a distal pancreatectomy, this was briefly discussed. A referral was placed to GI Dr. Donnelly/Agustin. Scribe Statement: I, Yovana Brito, scribed for and in the presence of Jeffrey Mcfadden MD. Yovana Brito 02/14/24 2376 PROVIDER STATEMENT I Jeffrey Mcfadden MD personally performed the services described in the documentation, as scribed by Yovana Brito in my presence, and it is both accurate and complete. [facility]-10-2024 History of Present illness Narrative Patient is status post left brachiocephalic AV fistula. Good thrill in the fistula. Wound healed well. Follow-up in 4-6 weeks. Concerning his abdominal aortic aneurysm. Patient had a retroperitoneal aortic ultrasound recently which showed 4.3 cm largest diameter. Patient can wait another [address] scan of the abdomen and pelvis. documented [facility] History of Present illness Narrative Images from the original note were not included. [address] [facility] [id number] Patient: Zev Crystal Date of : 1955 Encounter Date: 02/03/2024 History of Present Illness: Chief Complaint: Follow up right renal cell carcinoma The patient is a 68 y.o. male, an established patient, and is here for follow up of right renal cell carcinoma. Patient presents today for six-month follow-up. Unfortunately, he is now dialysis dependent on Tuesday//Tuesday with left upper extremity fistula for hemodialysis. He is doing okay with dialysis sessions currently. He denies any hematuria, dysuria, or UTI symptoms. He is making normal urine. Right incision is well healed with some mild blistering medially/irritation. I did recommend monitoring this for now with vitamin-E cream. Most recent CT abdomen with contrast 01/27/2024 does show a lenticular hyperdensity at the right partial nephrectomy site likely a ruptured cyst or hematoma with questionable area at the right upper kidney which is also previously related to partial nephrectomy and does not appear to be related to recurrent malignancy at this time. Chest x-ray 02/03/2024 my review shows no obvious nodules and final read is pending. He has in the process of starting a transplant evaluation for kidney at [facility]. After discussion, will plan for follow-up CT abdomen in 6 months. Additionally, patient did have some persistent pancreatic ductal dilation. Given need for further evaluation, I will make a referral to [facility] surgery for further evaluation. Patient agrees with plan of care and all questions were answered to satisfaction. Moderate MDM due to chronic condition stable addressed, newly evaluated condition with uncertain prognosis with referral made, record reviewed x1, labs and tests ordered and reviewed x4 including referral. Please note that I am providing longitudinal care for a specific serious/complex urologic condition that I am assuming responsibility for (modifier [id number]). UA: voided prior PVR: 72 mL Summary of old records: Previous office note reviewed Urinalysis today: No results for input(s): EXTPOCURCO [...] None Imaging Reviewed during this Office Visit: CT, chest x-ray (Results were independently reviewed by physician and radiology report verified) Past Medical, Family, and Social History Update: The following portions of the patient's history were reviewed and updated as appropriate: allergies, current medications, past family history, past medical history, past social history, past surgical history and problem list. Past Medical History: Diagnosis Date AAA (abdominal aortic aneurysm) ([facility] monitoring Anxiety xanax prn Arthritis Dental disease crown front tooth states could fall out if hit hard enough Diabetes mellitus type 2, controlled ([facility]) Dialysis patient ([facility]) claudio velasquez sat [facility] renal in [facility] Essential hypertension 02/23/2018 HL (hearing loss) hearing aid lt ear, deaf right ear Hypothyroidism Mixed hyperlipidemia 02/23/2018 Nicotine dependence 02/23/2018 Pancreatitis Peptic ulceration when he was younger Renal cell carcinoma ([facility]) right, left kidney atrophied Skin cancer BCC/SCC Varicella Visual impairment prescribed but does not wear Past Surgical History: Procedure Laterality Date BIOPSY MASS 04/01/2023 right kidney BRACHIAL CEPHALIC ARTERIOVENOUS FISTULA Left 01/11/2024 Performed by Zac Lombardi MD at [facility] CATHETERIZATION 2004 2007 [facility] CHOLECYSTECTOMY 2005 COLONOSCOPY 2012 EYE SURGERY NASAL SINUS SURGERY 2003 cleaned out NEPHRECTOMY PARTIAL OPEN(BIOBANK) Right 07/21/2023 Performed by Mary Telles MD at [facility] SK[facility] BIOPSY Several times STRABISMUS SURGERY 1961 VASECTOMY Family History Problem Relation Age of Onset Lung cancer Mother Brain cancer Mother Heart disease Father Diabetes Sister Diabetes Brother Stroke Paternal Grandmother Heart attack Paternal Grandfather Early Paternal Grandfather 40 Diabetes Son Cancer Half Brother thyroid and pancreatic Anesthesia problems Neg Hx Bleeding Disorder Neg Hx Clotting disorder Neg Hx Prostate cancer Neg Hx Colon cancer Neg Hx Kidney cancer Neg Hx Thyroid cancer Neg Hx Current Outpatient Medications Medication Sig Dispense Refill ALPRAZolam (XANAX) 0.25 mg tablet Take 1 tablet (0.25 mg total) by mouth 3 (three) times a day as needed for anxiety. atorvastatin (LIPITOR) 40 mg tablet Take 1 tablet (40 mg total) by mouth nightly Indications: high cholesterol. bumetanide (BUMEX) 1 mg tablet Take 3 tablets (3 mg total) by mouth daily. carvedilol (COREG) 25 mg tablet Take 1 tablet (25 mg total) by mouth in the morning and 1 tablet (25 mg total) in the evening. Take with meals. Indications: high blood pressure. glimepiride (AMARYL) 2 mg tablet Take 1 tablet (2 mg total) by mouth every morning before breakfast. levothyroxine (SYNTHROID, LEVOTHROID) 50 MCG tablet Take 1 tablet (50 mcg total) by mouth in the morning. metFORMIN (GLUCOPHAGE) 500 mg tablet 1 tablet with a meal Orally Twice a day for 30 day(s) (Patient not taking: Reported on 02/14/2024) No current facility-administered medications for this visit. (All medications reviewed and updated by provider since last office visit or hospitalization) Allergies: Patient has no known allergies. Tobacco History: Social History Tobacco Use Smoking Status Every Day Current packs/day: 1.00 Average packs/day: 1 pack/day for 40.0 years (40.0 ttl pk-yrs) Types: Cigarettes Passive exposure: Current Smokeless Tobacco Never Tobacco Comments Currently smoking 1/2ppd. Smoked today 01/11/24 (If patient a smoker, smoking cessation counseling offered) Social History: Social History Substance and Sexual Activity Alcohol Use No Review of Systems: General: Negative for chills and fever. Cardiovascular: Negative for chest pain and shortness of breath. Gastrointestinal: Negative for constipation, diarrhea, nausea, and vomitting. -per HPI Physical Exam: BP 159/83 Pulse 74 Ht 175.3 cm (5' 9 ) Wt 60.8 kg (134 lb) BMI 19.79 kg/m General: Alert, well appearing, and in no distress Integumentary: Normal coloration of skin, normal skin moisture Chest and lung exam: quiet, even and easy respiratory effort with no use of accessory muscles Neurologic: Normal coordination, normal gait Right flank incision well healed with some slight blistering/irritation medially Assessment and Plan: Jose was seen today for follow-up. Diagnoses and all orders for this visit: Right renal mass - Cancel: POCT Urinalysis Auto, W/O Microscopy - Measure post void residual Pancreatic duct dilated - [facility]reatic [facility] - [place], [place]; Future Renal cell carcinoma (CMS-HCC) - CT abdomen with contrast; Future Problem List Genitourinary Renal cell carcinoma (CMS-HCC) Overview 02/23/23: CTAP-WOC 10/28/22 (for AAA surv) - 2.5 cm indet ant RLP lesion > MR-abdomen WOC 11/30/22 ([facility]) - 3.4 cm R renal mass [...] renal recovery - F/U [address]-ABD/WC/CXR 02/03/24: HD-dep/getting TXP eval; CT-ABD/WC 01/27/24 - lenticular hyperdensity R partial Nx site, likely rupture cyst/hematoma, ?mass-like abn R upper kidney; CXR 02/03/24 - neg - F/U [address]-ABD Relevant Orders CT abdomen with contrast Right renal mass - Primary Relevant Orders Measure post void residual (Completed) Follow-up: Six-months MARY TELLES MD This note was created with the assistance of a speech recognition program. While intending to generate a timely document that accurately reflects the content of the visit, no guarantee can be provided that every grammatical or spelling mistake has been or will be identified or corrected. Thank you for your understanding. documented in this encounter [facility] 01-03-2024 Instructions Formatting of th is note might be different from the original. Your surgery/procedure is scheduled at [facility] on 01/11/24 at 1500 [id number] [place] [address] Address: [address] [place] [address] Park in [address]1 Parking lot located on [facility]. Report to the Entrance B. Check in at the information desk the surgery. The waiting room located on the second floor. If you have any questions prior to surgery, please call Pre-Admission Clinic at [phone] between 7:30 am and 4:30 pm Tuesday through Tuesday. If you have questions the morning of surgery, please call the Pre-op Department at [phone]. Notify your SURGEON if you develop any illness such as a cold, cough, fever, sore throat, vomiting or are hospitalized between now and your surgery. CONTINUE TO TAKE YOUR MEDICATIONS PRESCRIBED. DO NOT STOP YOUR PRESCRIBED MEDICATIONS UNLESS DIRECTED BY YOUR PRESCRIBING PHYSICIAN Take the following medications the morning of surgery with a sip of water: meds per dr lombardi Weight loss medications: na Take inhalers as prescribed the morning of surgery. . Blood thinners: Medications such as Coumadin, Heparin, Aspirin, Plavix, Eliquis, Pradaxa) Please contact your physician regarding a stop/hold date for these medications. Diabetics: If you take insulin, contact your prescribing doctor for instructions on how to manage this the night before and the morning of surgery. Non-steriodal Anti-Inflammatory Drugs (NSAIDS)- Stop 3 days prior to surgery unless otherwise directed by your surgeon. Vitamins/Herbal Products: You may continue to take your prescribed vitamins such as potassium, iron, vitamin B, vitamin C, or multivitamin unless specifically instructed by your surgeon to stop. STOP taking all herbal products/teas one week prior to your surgery. Marijuana: Stop marijuana 72 hours prior to surgery, stop CBD oil 48 hours prior to surgery. If you have been given bowel prep instructions by your surgeon, please call the surgeon's office with any questions about these instructions. What do I do the day of Surgery? Age 2 through adult - Stop all solids by midnight, You may have clear liquids up to 2 hours before surgery, unless otherwise instructed by your surgeon. Clear liquids are: water, sports drinks such as Gatorade or G2, or apple juice. You may NOT have: tube feedings, dairy products, alcoholic beverages, orange juice, or any liquids with solids or pulp in it. If applicable, shower again with CHG soap the morning of your surgery. If you received a green plastic bracelet, bring it with you the day of surgery and your nurse will put it on you. In order to help prevent infection post-operatively, you may be asked to use a CHG mouthwash when you arrive to the Pre-op area. Your nurse will provide instruction the morning of. What do I need to do to prepare for surgery? If you will be going home the same day as your surgery, arrange for an adult over [address] Riding in a bus or taxi by yourself is not permitted. You should not smoke or drink alcohol 24 hours before your surgery. Alcohol thins the blood and may cause bleeding problems during surgery. Smoking increases the risk of breathing problems after surgery. If you have been assigned MATTY Education by your surgeon's office, please complete this education prior to your surgery. For questions regarding MATTY education, reach out to your surgeon's office. If you have been given a prescription for occupational, physical or speech therapy, please set up these appointments before your procedure. If you would like to schedule therapy at a [facility] facility, please call [phone] ([phone]). Do not use lotions, creams, powders, perfume, make up, cologne or after-shaves day of surgery. Remove ALL jewelry including wedding rings, body piercings,hair extensions that contain metal, nail [place], make-up, and contact lens. You may brush your teeth the morning of surgery, but do not swallow the water. Wear your dentures and partial plates to the hospital (no adhesive). Shower the night the before. If applicable, use the CHG (chlorhexidine gluconate) soap or wipes What should I bring to the hospital? If you received a green plastic bracelet, bring it with you the day of surgery and your nurse will put it on you. Eyeglass or contact lens case If you will be spending the night, please bring personal care items and leave them in the car until you are taken to your room after surgery. Leave ALL valuables at home. If any of these instructions conflict with those you received from the surgeon, please seek clarification from your surgeon's office. DEEP BREATHING EXERCISES This exercise helps promote good air exchange and helps to prevent pneumonia after surgery. Breathe in slowly and deeply through the nose. Hold your breath for a few seconds and then exhale slowly through the mouth. Repeat this three times and then cough.Coughing helps to clear your lungs. If you have had a surgery with an incision into your abdomen or chest, press gently against your incision with a pillow or a folded blanket when you cough. Please be aware - it may not be gar to cough following some types of surgeries involving the eyes, ears, sinuses and throat. Always follow your doctor's instructions. LEG EXERCISE These exercises help promote good circulation and help to prevent blood clots after surgery. Point your toes to the ceiling and then point them to the wall. Do this slowly about 15-20 times. You may also move your feet in circles. Do the exercise that is most comfortable for you. If you have had surgery involving your shoulder or arm, we recommend you move your fingers. PRACTICING We ask that you begin practicing these exercises before your surgery. After surgery try to do both exercises at least every 2 hours during the day and early evening. SURGICAL SITE INFECTION PREVENTION What is a Surgical Site Infection? Infection can happen to the area of the body where surgery is done. This is called a surgical site infection (SSI). A SSI does not happen very often. Can SSIs be treated? Antibiotics are used to treat SSI. Some patients may need another surgery to treat the infection. The doctor will discuss treatment options with you. What are some of the things that hospitals are doing to prevent SSIs? Soap and water or alcohol hand rub are used before and after caring for each patient. Special soap is used to clean surgery workers hands and arms just before the surgery. Masks, gowns, gloves and hair covers are worn during the surgery to keep the area clean. Hair in the surgery area may be removed with clippers (not razors). A special soap that kills germs is used to clean the skin at the surgery site. Antibiotics may be given before the surgery starts. What can you do to prevent SSIs? Before surgery: You may be asked to shower or bathe with a special soap that kills germs the night before and the day of surgery. Use the soap as you were told. If you smoke, stop or cut down. Ask your doctor about ways to quit. Do not shave near where you will have surgery. Shaving can irritate the skin and make it easier to get and infection. After surgery: Be sure that the doctors and nurses clean their hands before and after touching you. Be sure your family and friends clean their hands before and after visiting you. Do not be afraid to remind them. * Care for your wound at home as told by your doctor or nurse * Call your doctor right away if you have fever, redness, increased pain, or drainage at the surgery site. Further questions? Contact the doctor, nurse or the Infection Prevention and Control department if you have any questions. PATIENT RIGHTS AND RESPONSIBILITIES As a patient at [facility], you have the right to: Receive medical care and be informed of who is taking care of you Be treated with dignity and respect Have a family member/shipping services sales representative of choice and your physician notified of your admission Receive information and actively participate in decisions about your care and treatment Refuse care, treatment and services Decide who may provide your support and speak for you Access restoration and spiritual services Participate in ethical issues and questions about your care Receive private and confidential care Have appropriate assessment and management of your pain Know guest visitation restrictions or limitations Have an advance directive Access protective services Consent or refuse to participate in research studies or production or recordings, films or other images Have resolution of your complaints Receive information of hospital charges and payment methods Patient/patient shipping services sales representative responsibilities are to: Provide information about health status to facilitate care, treatment and services Follow the treatment, plan, keep appointments and speak up when you do not understand the plan Respect the rights of other patients and healthcare personnel Follow organizational rules and regulations that support quality care and a safe environment Fulfill financial obligations as promptly as possible [facility] 01-03-2024 Miscellaneous Notes Your surgery/procedure is scheduled at [facility] on 01/11/24 at [id number] [place] [address] Address: [address] [place] [address] in Parking lot located on [facility]. Report to the Entrance B. Check in at the information desk the surgery. The waiting room located on the second floor. If you have any questions prior to surgery, please call Pre-Admission Clinic at [phone] between 7:30 am and 4:30 pm Tuesday through Tuesday. If you have questions the morning of surgery, please call the Pre-op Department at [phone]. Notify your SURGEON if you develop any illness such as a cold, cough, fever, sore throat, vomiting or are hospitalized between now and your surgery. CONTINUE TO TAKE YOUR MEDICATIONS PRESCRIBED. DO NOT STOP YOUR PRESCRIBED MEDICATIONS UNLESS DIRECTED BY YOUR PRESCRIBING PHYSICIAN Take the following medications the morning of surgery with a sip of water: meds per dr lombardi Weight loss medications: na Take inhalers as prescribed the morning of surgery. . Blood thinners: Medications such as Coumadin, Heparin, Aspirin, Plavix, Eliquis, Pradaxa) Please contact your physician regarding a stop/hold date for these medications. Diabetics: If you take insulin, contact your prescribing doctor for instructions on how to manage this the night before and the morning of surgery. Non-steriodal Anti-Inflammatory Drugs (NSAIDS)- Stop 3 days prior to surgery unless otherwise directed by your surgeon. Vitamins/Herbal Products: You may continue to take your prescribed vitamins such as potassium, iron, vitamin B, vitamin C, or multivitamin unless specifically instructed by your surgeon to stop. STOP taking all herbal products/teas one week prior to your surgery. Marijuana: Stop marijuana 72 hours prior to surgery, stop CBD oil 48 hours prior to surgery. If you have been given bowel prep instructions by your surgeon, please call the surgeon's office with any questions about these instructions. What do I do the day of Surgery? Age 2 through adult - Stop all solids by midnight, You may have clear liquids up to 2 hours before surgery, unless otherwise instructed by your surgeon. Clear liquids are: water, sports drinks such as Gatorade or G2, or apple juice. You may NOT have: tube feedings, dairy products, alcoholic beverages, orange juice, or any liquids with solids or pulp in it. If applicable, shower again with CHG soap the morning of your surgery. If you received a green plastic bracelet, bring it with you the day of surgery and your nurse will put it on you. In order to help prevent infection post-operatively, you may be asked to use a CHG mouthwash when you arrive to the Pre-op area. Your nurse will provide instruction the morning of. What do I need to do to prepare for surgery? If you will be going home the same day as your surgery, arrange for an adult over [address] Riding in a bus or taxi by yourself is not permitted. You should not smoke or drink alcohol 24 hours before your surgery. Alcohol thins the blood and may cause bleeding problems during surgery. Smoking increases the risk of breathing problems after surgery. If you have been assigned MATTY Education by your surgeon's office, please complete this education prior to your surgery. For questions regarding MATTY education, reach out to your surgeon's office. If you have been given a prescription for occupational, physical or speech therapy, please set up these appointments before your procedure. If you would like to schedule therapy at a [facility] facility, please call [phone] ([phone]). Do not use lotions, creams, powders, perfume, make up, cologne or after-shaves day of surgery. Remove ALL jewelry including wedding rings, body piercings,hair extensions that contain metal, nail [place], make-up, and contact lens. You may brush your teeth the morning of surgery, but do not swallow the water. Wear your dentures and partial plates to the hospital (no adhesive). Shower the night the before. If applicable, use the CHG (chlorhexidine gluconate) soap or wipes What should I bring to the hospital? If you received a green plastic bracelet, bring it with you the day of surgery and your nurse will put it on you. Eyeglass or contact lens case If you will be spending the night, please bring personal care items and leave them in the car until you are taken to your room after surgery. Leave ALL valuables at home. If any of these instructions conflict with those you received from the surgeon, please seek clarification from your surgeon's office. DEEP BREATHING EXERCISES This exercise helps promote good air exchange and helps to prevent pneumonia after surgery. Breathe in slowly and deeply through the nose. Hold your breath for a few seconds and then exhale slowly through the mouth. Repeat this three times and then cough.Coughing helps to clear your lungs. If you have had a surgery with an incision into your abdomen or chest, press gently against your incision with a pillow or a folded blanket when you cough. Please be aware - it may not be gar to cough following some types of surgeries involving the eyes, ears, sinuses and throat. Always follow your doctor's instructions. LEG EXERCISE These exercises help promote good circulation and help to prevent blood clots after surgery. Point your toes to the ceiling and then point them to the wall. Do this slowly about 15-20 times. You may also move your feet in circles. Do the exercise that is most comfortable for you. If you have had surgery involving your shoulder or arm, we recommend you move your fingers. PRACTICING We ask that you begin practicing these exercises before your surgery. After surgery try to do both exercises at least every 2 hours during the day and early evening. SURGICAL SITE INFECTION PREVENTION What is a Surgical Site Infection? Infection can happen to the area of the body where surgery is done. This is called a surgical site infection (SSI). A SSI does not happen very often. Can SSIs be treated? Antibiotics are used to treat SSI. Some patients may need another surgery to treat the infection. The doctor will discuss treatment options with you. What are some of the things that hospitals are doing to prevent SSIs? Soap and water or alcohol hand rub are used before and after caring for each patient. Special soap is used to clean surgery workers hands and arms just before the surgery. Masks, gowns, gloves and hair covers are worn during the surgery to keep the area clean. Hair in the surgery area may be removed with clippers (not razors). A special soap that kills germs is used to clean the skin at the surgery site. Antibiotics may be given before the surgery starts. What can you do to prevent SSIs? Before surgery: You may be asked to shower or bathe with a special soap that kills germs the night before and the day of surgery. Use the soap as you were told. If you smoke, stop or cut down. Ask your doctor about ways to quit. Do not shave near where you will have surgery. Shaving can irritate the skin and make it easier to get and infection. After surgery: Be sure that the doctors and nurses clean their hands before and after touching you. Be sure your family and friends clean their hands before and after visiting you. Do not be afraid to remind them. * Care for your wound at home as told by your doctor or nurse * Call your doctor right away if you have fever, redness, increased pain, or drainage at the surgery site. Further questions? Contact the doctor, nurse or the Infection Prevention and Control department if you have any questions. PATIENT RIGHTS AND RESPONSIBILITIES As a patient at [facility], you have the right to: Receive medical care and be informed of who is taking care of you Be treated with dignity and respect Have a family member/shipping services sales representative of choice and your physician notified of your admission Receive information and actively participate in decisions about your care and treatment Refuse care, treatment and services Decide who may provide your support and speak for you Access restoration and spiritual services Participate in ethical issues and questions about your care Receive private and confidential care Have appropriate assessment and management of your pain Know guest visitation restrictions or limitations Have an advance directive Access protective services Consent or refuse to participate in research studies or production or recordings, films or other images Have resolution of your complaints Receive information of hospital charges and payment methods Patient/patient shipping services sales representative responsibilities are to: Provide information about health status to facilitate care, treatment and services Follow the treatment, plan, keep appointments and speak up when you do not understand the plan Respect the rights of other patients and healthcare personnel Follow organizational rules and regulations that support quality care and a safe environment Fulfill financial obligations as promptly as possible documented in this encounter [facility] 01-02-2024 History of Present illness Narrative Images from the original note were not included. Mckinley Winkler MD, [facility] Aravind Daniels, KAMILA Jones, PRODUCTION CONTROL COORDINATOR [address] [facility] [address] [place] [address] Name: Zev Crystal : 1955 Gender: male PCP: DYLAN MONTILLA MD Age: 68 y.o. PCP Visit Date: 12/30/23 CHIEF COMPLAINT: Zev Crystal is an 68 y.o. male Here for follow up visit. Preop for routine colonoscopy and AVF. Some fatigue after HR but otherwise tolerating well. No recurrent chest pain. Doing well. Active. No exertional chest pain or dyspnea. No orthopnea or PND. No LH or syncope. No palpitations. No bleeding or TIAs. No edema. Weight stable past couple months. BP usually 130-140 range. But varies from 150/80 to drop into 90s. Usually holds meds before HD and takes 1/2 tablet when takes. PAST MED/SURG HISTORY: Past Medical History: Diagnosis Date AAA (abdominal aortic aneurysm) [place] Anxiety xanax prn Arthritis Dental disease crown front tooth states could fall out if hit hard enough Essential hypertension 02/23/2018 HL (hearing loss) hearing aid lt ear, deaf right ear Mixed hyperlipidemia 02/23/2018 Nicotine dependence 02/23/2018 Pancreatitis Peptic ulceration when he was younger Renal cell carcinoma ([facility] right, left kidney atrophied Skin cancer BCC/SCC Varicella Visual impairment prescribed but does not wear Past Surgical History: Procedure Laterality Date BIOPSY MASS 04/01/2023 right kidney CARDIAC CATHETERIZATION 2004 2007 [facility] CHOLECYSTECTOMY 2005 COLONOSCOPY 2012 EYE SURGERY NASAL SINUS SURGERY 2003 cleaned out NEPHRECTOMY PARTIAL OPEN(BIOBANK) Right 07/21/2023 Performed by Mary Telles MD at [facility] BIOPSY Several times STRABISMUS SURGERY 1961 VASECTOMY Social History Socioeconomic History Marital status: Spouse name: Not on file Number of children: Not on file Years of education: Not on file Highest education level: Not on file Occupational History Not on file Tobacco Use Smoking status: Every Day Current packs/day: 1.00 Average packs/day: 1 pack/day for 40.0 years (40.0 ttl pk-yrs) Types: Cigarettes Passive exposure: Current Smokeless tobacco: Never Tobacco comments: Currently smoking 1/2ppd Vaping Use Vaping status: Never Used Substance and Sexual Activity Alcohol use: No Drug use: Not Currently Sexual activity: Defer Partners: Female control/protection: None Other Topics Concern Caffeine Use Yes Social History Narrative Lives with . Worked at a [employer]. Has a dog in the home. Social Determinants of Health Financial Resource Strain: Not on file Food Insecurity: No Food Insecurity (08/05/2023) Hunger Screening Food Insecurity - Worry: Never True Food Insecurity - Inability: Never True Transportation Needs: No Transportation Needs (07/27/2023) PRAPARE - Transportation Lack of Transportation (Medical): No Lack of Transportation (Non-Medical): No Physical Activity: Not on file Stress: Not on file Social Connections: Not on file Interpersonal Safety: Unknown (09/15/2023) [facility] from [facility], [facility] [place] Safety [facility] Environment Fear of Current or Ex-Partner: Not on file Emotionally Abused: Not on file Physically Abused: Not on file Sexually Abused: Not on file Physically or Sexually Abused: Not on file Housing Instability: Low Risk (07/27/2023) Housing Instability Housing Instability: No FAMILY HISTORY: Family History Problem Relation Age of Onset [...] cancer Neg Hx Thyroid cancer Neg Hx REVIEW OF SYSTEMS: Review of Systems Constitutional: Positive for fatigue. Negative for fever, chills, diaphoresis, activity change, appetite change and unexpected weight change. HENT: Negative for nosebleeds. Eyes: Negative for visual disturbance. Respiratory: Negative for cough, chest tightness, shortness of breath and wheezing. Cardiovascular: Negative for chest pain, palpitations, leg swelling, PND, chest discomfort, orthopnea and tachycardia. Gastrointestinal: Negative for anal bleeding and black tarry stool. Genitourinary: Negative for hematuria. Neurological: Positive for dizziness and light-headedness. Negative for syncope, facial asymmetry, speech difficulty, weakness and numbness. Hematological: Does not bruise/bleed easily. CURRENT MEDICATIONS: Current Outpatient Medications: ALPRAZolam (XANAX) 0.25 mg tablet, Take 1 tablet (0.25 mg total) by mouth 3 (three) times a day as needed for anxiety., Disp: , Rfl: amLODIPine (NORVASC) 10 mg tablet, Take 1 tablet (10 mg total) by mouth in the morning. Indications: high blood pressure., Disp: , Rfl: atorvastatin (LIPITOR) 40 mg tablet, Take 1 tablet (40 mg total) by mouth nightly Indications: high cholesterol., Disp: , Rfl: carvedilol (COREG) 25 mg tablet, Take 1 tablet (25 mg total) by mouth in the morning and 1 tablet (25 mg total) in the evening. Take with meals. Indications: high blood pressure., Disp: , Rfl: insulin lispro (HumaLOG) 100 unit/mL insulin pen, Inject 2-10 Units under the skin 4 (four) times a day with meals and nightly., Disp: 15 mL, Rfl: 12 losartan (COZAAR) 25 mg tablet, Take 2 tablets (50 mg total) by mouth in the morning. Indications: high blood pressure., Disp: , Rfl: metFORMIN (GLUCOPHAGE) 500 mg tablet, 1 tablet with a meal Orally Twice a day for 30 day(s), Disp: , Rfl: ondansetron ODT (ZOFRAN ODT) 4 mg disintegrating tablet, Dissolve 1 tablet (4 mg total) on tongue every 8 (eight) hours as needed for nausea or vomiting., Disp: 30 tablet, Rfl: 3 pen needle, diabetic 32 gauge x 5/32 needle, 1 Unit by miscellaneous route 4 (four) times a day before meals and nightly., Disp: 50 each, Rfl: 3 polyethylene glycol (GLYCOLAX) 17 gram packet, Take 17 g by mouth in the morning., Disp: 30 packet, Rfl: 0 sevelamer (RENVELA) 800 mg tablet, Take 1 tablet (800 mg total) by mouth in the morning and 1 tablet (800 mg total) at noon and 1 tablet (800 mg total) in the evening. Take with meals., Disp: , Rfl: ALLERGIES: Allergies as of 01/02/2024 (No Known Allergies) VITALS: There were no vitals filed for this visit. Admit Weight: Wt Readings from Last 3 Encounters: 11/16/23 60.3 kg (133 lb) 04/19/24 60.5 kg (133 lb 6.4 oz) 09/30/23 85.7 kg (189 lb) There is no height or weight on file to calculate BMI. PHYSICAL EXAM: Physical Exam Constitutional He appears well-developed and well-nourished. He is cooperative. Non-toxic appearance. No distress. HENT Head Normocephalic and atraumatic. Skin negative for abrasion and bruising. Patient does not have cranial nerve VII deficit. Eyes: Conjunctivae and EOM are normal. Pupils are equal, round, and reactive to light. EOM: extraocular movement intactRight eye exhibits normal extraocular motion. Left eye positive for nystagmus.. Left eye exhibits normal extraocular motion. Left eye negative for nystagmus.. Neck Trachea normal. Neck supple. Carotid bruit is not present. .No stridor present. Cardiovascular: Normal rate and regular rhythm. Murmur heard. Systolic murmur is present with a grade of 1/6. Pulses: Carotid pulses are 2+ on the right side and 2+ on the left side. no JVD Edema: RLE none LLE none no S3 sounds and no S4 sounds Pulmonary/Chest: Effort normal. He has no decreased breath sounds. He has no wheezes. He has no rhonchi. He has no rales. No stridor. Abdominal: Bowel sounds are normal. He exhibits no distension, no abdominal bruit, no ascites and no pulsatile midline mass. Soft. There is no hepatosplenomegaly. There is no abdominal tenderness. There is no rigidity, no rebound, no guarding and no CVA tenderness. Musculoskeletal: Cervical back: Neck supple. Vascular: Right Lower Extremity Right lower extremity edema: none Left Lower Extremity Left lower extremity edema: none Carotid: Right carotid: 2+ Left carotid: 2+ Lymph Right cervical: No supraclavicular and no cervical adenopathy present. Left cervical: No supraclavicular and no cervical adenopathy present. Neurological He is alert. Speech: normal speech Skin: Turgor is normal. No petechiae and no rash noted. He is not diaphoretic. No cyanosis. Nails show no clubbing. Psychiatric: His speech is normal and behavior is normal. Attention, mood and affect normal. LAB REVIEW: CBC: Lab Results Component Value Date WBC 5.6 07/27/2023 HGB 9.4 (L) 07/27/2023 HCT 26.7 (L) 07/27/2023 MCV 89 07/27/2023 PLT 195 07/27/2023 CHEM: Lab Results Component Value Date GLU 132 (H) 07/27/2023 CALCIUM 8.1 (L) 07/27/2023 SODIUM 138 07/27/2023 K 4.3 07/27/2023 CO2 27 07/27/2023 BUN 40 (H) 07/27/2023 CREATININE 5.69 (H) 07/27/2023 Lipids: Lab Results Component Value Date CHOL 121 (L) 02/23/2018 CHOL 108 (L) 02/23/2018 Lab Results Component Value Date HDL 25 (L) 02/23/2018 HDL 24 (L) 02/23/2018 Lab Results Component Value Date LDLCALC 57 02/23/2018 LDLCALC 46 02/23/2018 Lab Results Component Value Date TRIG 196 (H) 02/23/2018 TRIG 191 (H) 02/23/2018 No results found for: CHOLHDL No diagnosis found. No orders of the defined types were placed in this encounter. No orders of the defined types were placed in this encounter. There are no discontinued medications. CARDIOVASCULAR STUDIES: ? 2008 Cath (Per Statement): ? Vessel with 100% occlusion and collaterals CAROTID: Vas carotid duplex bilateral Result Date: 05/12/2023 Right: Plaque with no significant ICA spectral Doppler or color flow disturbances; ICA 63/19 cm/sec. Low velocity (<20 cm/sec) vertebral artery waveforms. Left: Plaque with no significant ICA spectral Doppler or color flow disturbances; ICA 84/28 cm/sec. Antegrade vertebral artery flow. Conclusions: BILATERAL: Plaque without significant stenosis (<50%) of the internal carotid artery. Antegrade vertebral artery flow. Vas aorta/iliac duplex complete Result Date: 05/12/2023 Previous: History of infrarenal aortic aneurysm measuring 4.3 cm. Right: Plaque and elevated common iliac artery spectral Doppler waveforms with color flow disturbance and PSV velocity of 207 cm/sec. Left: Maximum common iliac artery is diameter is 2.0 cm. Plaque and elevated common iliac artery spectral Doppler waveforms with color flow disturbance and PSV velocity of 215 cm/sec. General: Listed diameters are shipping services sales representative of maximum aortoiliac vessel diameter. 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 Aorta: Maximum infrarenal aorta is 4.1 cm, with intraluminal content. Spectral waveforms with diastolic flow reversal throughout the abdominal aorta. Conclusions: Abdominal aortic aneurysm stable in size at approximately 4.1 cm.Hemodynamically significant (>50%) bilateral iliac artery stenosis. Left common iliac artery aneurysm. 07/16 HD 06/2023 Echo ([place], [place]): LVEF 55-60% Asymmetric septal hypertrophy Velocities through LVOT normal at rest. Suggestive of hypertrophic cardiomyopathy Normal RV size and function No significant valvular abnormalities STRESS: Nuc stress Lexiscan Result Date: 11/16/2023 Normal myocardial perfusion study with soft tissue artifact Inferior perfusion defect likely represents soft tissue artifact. No definite ischemia noted. Ejection fraction 65% Global left ventricular systolic function is normal No ischemic ECG changes noted in a baseline abnormal EKG Low risk 11/15 Holter Baseline underlying rhythm sinus rhythm. Average heart rate 73 beats per minute. Heart rate ranged between 52-119 beats per minute. Very low burden PACs, 0.04% burden. Total of 20 PVCs. Single short atrial run lasting for 4 beats only at rate 119 bpm. No atrial fibrillation or flutter. No significant pause or block. ASSESSMENT/PLAN/DISCUSSION Coronary artery disease: Stable, with no symptoms. I plan to continue current medications/treatment. On ASA, BB, and statin. Hypertension: Blood pressure is currently reasonably controlled. I plan to continue current medications. No additional testing is required at this time. Still takes his meds as he feels. Hyperlipidemia: Managed per PCP. I did not order any further blood work. On statin. Abn ECG: negative stress test. Abn echo - Hypertrophic Cardiomyopathy: D/W patient and spouse. Unable to do cMRI on ESRD patient. BP control. Follow echoes. Reassess now that fluid balance stabilized. Continue BB. Holter benign. AAA/PAD: 4.1 to 4/3 cm. F/W vascular (Dr Lombardi). ESRD - on HD. Follows with renal (Dr Rosario). Preoperative risk: His risk for developing cardiovascular complications with the planned surgery is mild to moderate. for AVF 01/15 and / or colonoscopy - TBA Testing and records reviewed in [facility] Everywhere and other outside facilities, and are documented under CV database and testing. The note was completed using EMR. Every effort was made to ensure accuracy; however, inadvertent computerized siene maker errors may be present. Mckinley Winkler MD documented in this encounter [facility] 12-30-2023 History of Present illness Narrative CHIEF COMPLAINT: Chief Complaint Patient presents with Follow-up needs access for dialysis HISTORY OF PRESENT ILLNESS: Zev Crystal is a 68 y.o. male who presents to the office today for evaluation of End-stage renal disease, currently on hemodialysis through a PermCath on the right chest area. Patient will need a long-term dialysis access. Patient started on dialysis few months ago. Patient is right handed dominant. Patient denies any upper extremity swelling. He denies any upper extremity weakness. Patient has no other complaints. ALLERGIES: No Known Allergies MEDICATIONS: Current Outpatient Medications Medication Sig Dispense Refill ALPRAZolam (XANAX) 0.25 mg tablet Take 1 tablet (0.25 mg total) by mouth 3 (three) times a day as needed for anxiety. amLODIPine (NORVASC) 10 mg tablet Take 1 [...] Take with meals. Indications: high blood pressure. metFORMIN (GLUCOPHAGE) 500 mg tablet 1 tablet with a meal Orally Twice a day for 30 day(s) sevelamer (RENVELA) 800 mg tablet Take 1 tablet (800 mg total) by mouth in the morning and 1 tablet (800 mg total) at noon and 1 tablet (800 mg total) in the evening. Take with meals. insulin lispro (HumaLOG) 100 unit/mL insulin pen Inject 2-10 Units under the skin 4 (four) times a day with meals and nightly. (Patient not taking: Reported on 12/30/2023) 15 mL 12 losartan (COZAAR) 25 mg tablet Take 2 tablets (50 mg total) by mouth in the morning. Indications: high blood pressure. (Patient not taking: Reported on 12/30/2023) ondansetron ODT (ZOFRAN ODT) 4 mg disintegrating tablet Dissolve 1 tablet (4 mg total) on tongue every 8 (eight) hours as needed for nausea or vomiting. (Patient not taking: Reported on 12/30/2023) 30 tablet 3 pen needle, diabetic 32 gauge x 5/32 needle 1 Unit by miscellaneous route 4 (four) times a day before meals and nightly. (Patient not taking: Reported on 12/30/2023) 50 each 3 polyethylene glycol (GLYCOLAX) 17 gram packet Take 17 g by mouth in the morning. (Patient not taking: Reported on 12/30/2023) 30 packet 0 No current facility-administered medications for this visit. SOCIAL HISTORY: Social History Tobacco Use Smoking status: Every Day Current packs/day: 1.00 Average packs/day: 1 pack/day for 40.0 years (40.0 ttl pk-yrs) Types: Cigarettes Passive exposure: Current Smokeless tobacco: Never Tobacco comments: Currently smoking 1/2ppd Substance Use Topics Alcohol use: No REVIEW OF SYSTEMS: Review of Systems Constitutional: Negative for activity change, appetite change, chills, fatigue, fever and unexpected weight change. HENT: Negative for facial swelling and trouble swallowing. Eyes: Negative for visual disturbance. Respiratory: Negative for chest tightness and shortness of breath. Cardiovascular: Negative for chest pain and leg swelling. Gastrointestinal: Negative for abdominal pain. Genitourinary: Negative for flank pain and frequency. Musculoskeletal: Negative for back pain and joint swelling. Skin: Negative for color change, pallor, rash and wound. Neurological: Negative for dizziness, syncope, facial asymmetry, speech difficulty, weakness, light-headedness and numbness. Hematological: Negative for adenopathy. PHYSICAL EXAM: Physical Exam Vitals reviewed. Constitutional: General: He is not in acute distress. Neck: Vascular: No JVD. Cardiovascular: Rate and Rhythm: Normal rate. Pulses: Radial pulses are 2+ on the right side and 2+ on the left side. Dorsalis pedis pulses are 2+ on the right side and 2+ on the left side. Posterior tibial pulses are 2+ on the right side and 2+ on the left side. Heart sounds: No murmur heard. Comments: No carotid bruits. Pulmonary: Breath sounds: Normal breath sounds. Abdominal: Palpations: Abdomen is soft. There is no mass. Tenderness: There is no abdominal tenderness. Musculoskeletal: General: No tenderness. Cervical back: Neck supple. Skin: General: Skin is warm. Coloration: Skin is not pale. Findings: No erythema. Neurological: Mental Status: He is alert and oriented to person, place, and time. VASCULAR EXAM: Vascular: Right Lower Extremity Right lower extremity pulses DP: 2+ PT: 2+ Right lower extremity edema: none Left Lower Extremity Left lower extremity pulses DP: 2+ PT: 2+ Left lower extremity edema: none Right Upper Extremity Right upper extremity pulses Radial: 2+ Left Upper Extremity Left upper extremity pulses Radial: 2+ ASSESSMENT AND PLAN: Zev was seen today for follow-up. Diagnoses and all orders for this visit: Renal cell carcinoma (CMS-HCC) Infrarenal abdominal aortic aneurysm (AAA) without rupture (CMS-HCC) End stage renal disease (CMS-HCC) Essential hypertension Cigarette nicotine dependence without complication Patient is due to have vein mapping next Tuesday in 1 week. We will schedule him for left brachiocephalic AV fistula or AV graft. This will depend on the size of his veins. documented in this encounter [facility] 12-26-2023 Note Chief Complaint consultation for anemia HPI Staff 68 year old male presents on consultation from Dr. Montilla for anemia. Labs completed 11/24 with H/H [...] 1 tab(s), Oral, (more content not included)... [facility] Comment on above: Result Comment: Elec tronically Signed By: ZAC TAYLOR, Ga Cesar\Date and Time Signed: 12/26/23 13:38 EDT 11-11-2023 History of Present illness Narrative Images from the original note were not included. Mckinley Winkler MD, [facility] Aravind Daniels, DEVELOPMENT GEOLOGIST-PRODUCTION CONTROL COORDINATOR, MSN Katrin Jones, DEVELOPMENT GEOLOGIST-PRODUCTION CONTROL COORDINATOR [id number] [facility] [address] [place] [address] Name: Zev Crystal PCP: DYLAN MONTILLA MD : 1955 Gender: male Age: 68 y.o. Primary Care Physician: DYLAN MONTILLA MD Today's Date: 11/11/23 CHIEF COMPLAINT/HPI: This is a 68 y.o. male presenting to the office for a new patient visit. Presenting with his spouse. Has pertinent Hx of: AAA without rupture, CKD, DM, HLD, HTN, PAD, and right renal cell carcinoma. Does not use illicit drugs. Does not abuse alcohol. Currently, smokes cigarettes. Here today and states overall doing okay. Doing HD Tue, Thurs, Sat via tunnel cath. Notices intermittent chest discomfort- usually occurs at rest. NO identifiable exacerbating or relieving factors. Gets intermittent dizziness/LH and has to watch what BP meds he takes. Otherwise, no C/O CVA/TIA like symptoms, syncope, any current chest pain, palpitations, edema, or dyspnea. No C/O any overt bleeding. PAST MED/SURG HISTORY: Past Medical History: Diagnosis Date AAA (abdominal aortic aneurysm) [place] monitoring Anxiety xanax prn Arthritis Dental disease crown front tooth states could fall out if hit hard enough Essential hypertension 02/23/2018 HL (hearing loss) hearing aid lt ear, deaf right ear Mixed hyperlipidemia 02/23/2018 Nicotine dependence 02/23/2018 Pancreatitis Peptic ulceration when he was younger Renal cell carcinoma ([facility]) right, left kidney atrophied Skin cancer BCC/SCC Varicella Visual impairment prescribed but does not wear Past Surgical History: Procedure Laterality Date BIOPSY MASS 04/01/2023 right kidney CARDIAC CATHETERIZATION 2004 2007 [facility] CHOLECYSTECTOMY 2006 COLONOSCOPY 2013 EYE SURGERY NASAL SINUS SURGERY 2003 cleaned out NEPHRECTOMY PARTIAL OPEN(BIOBANK) Right 07/21/2023 Performed by Mary Telles MD at [facility] SKIN BIOPSY Several times STRABISMUS SURGERY 1961 VASECTOMY Social Connections: Not on file CURRENT MEDICATIONS: Current Outpatient Medications: amLODIPine (NORVASC) 10 mg tablet, Take 1 tablet (10 mg total) by mouth in the morning. Indications: high blood pressure., Disp: , Rfl: atorvastatin (LIPITOR) 40 mg tablet, Take 1 tablet (40 mg total) by mouth nightly Indications: high cholesterol., Disp: , Rfl: carvedilol (COREG) 25 mg tablet, Take 1 tablet (25 mg total) by mouth in the morning and 1 tablet (25 mg total) in the evening. Take with meals. Indications: high blood pressure., Disp: , Rfl: insulin lispro (HumaLOG) 100 unit/mL insulin pen, Inject 2-10 Units under the skin 4 (four) times a day with meals and nightly., Disp: 15 mL, Rfl: 12 losartan (COZAAR) 25 mg tablet, Take 2 tablets (50 mg total) by mouth in the morning. Indications: high blood pressure., Disp: , Rfl: metFORMIN (GLUCOPHAGE) 500 mg tablet, 1 tablet with a meal Orally Twice a day for 30 day(s), Disp: , Rfl: ondansetron ODT (ZOFRAN ODT) 4 mg disintegrating tablet, Dissolve 1 tablet (4 mg total) on tongue every 8 (eight) hours as needed for nausea or vomiting., Disp: 30 tablet, Rfl: 3 pen needle, diabetic 32 gauge x 5/32 needle, 1 Unit by miscellaneous route 4 (four) times a day before meals and nightly., Disp: 50 each, Rfl: 3 polyethylene glycol (GLYCOLAX) 17 gram packet, Take 17 g by mouth in the morning., Disp: 30 packet, Rfl: 0 ALLERGIES: Patient has no known allergies. REVIEW OF SYSTEMS: Review of Systems was conducted for, but not limited to: Constitutional, General, Head, Neck, Eyes, Pulmonary, CV, GI, Musculoskeletal, Skin/Hair, Hematology, Neurology. As above in HPI, otherwise, negative and/or noncontributory. VITALS: Vitals: 11/11/23 1349 BP: 125/81 BP Site: Right Arm BP Postition: Sitting Pulse: 64 SpO2: 99% Weight: 60.5 kg (133 lb 6.4 oz) Height: 175.3 cm (5' 9 ) PHYSICAL EXAM: Physical Exam Constitutional: General: He is not in acute distress. Appearance: Normal appearance. HENT: Head: Normocephalic and atraumatic. Eyes: Conjunctiva/sclera: Conjunctivae normal. Pupils: Pupils are equal, round, and reactive to light. Cardiovascular: Rate and Rhythm: Normal rate and regular rhythm. Pulses: Normal pulses. Heart sounds: Normal heart sounds, S1 normal and S2 normal. Pulmonary: Effort: Pulmonary effort is normal. Breath sounds: Normal breath sounds. Abdominal: General: Bowel sounds are normal. There is no abdominal bruit. Musculoskeletal: Comments: No obvious abnormality noted Skin: General: Skin is warm and dry. Capillary Refill: Capillary refill takes less than 2 seconds. Neurological: Mental Status: He is alert and oriented to person, place, and time. Psychiatric: Mood and Affect: Mood and affect normal. Speech: Speech normal. Behavior: Behavior normal. Behavior is cooperative. CARDIOVASCULAR STUDIES/DATABASE: ? 2007 Cath (Per Statement): ? Vessel with 100% occlusion and collaterals 04/2023 Carotids [facility] Conclusions: BILATERAL: Plaque without significant stenosis (<50%) of the internal carotid artery. Antegrade vertebral artery flow. 04/2023 AAA ([facility]): Conclusions: Abdominal aortic aneurysm stable in size at approximately 4.1 cm.Hemodynamically significant (>50%) bilateral iliac artery stenosis. Left common iliac artery aneurysm. 06/2023 Echo ([place], [place]): LVEF 55-60% Asymmetric septal hypertrophy Velocities through LVOT normal at rest. Suggestive of hypertrophic cardiomyopathy Normal RV size and function No significant valvular abnormalities ASSESSMENT/PLAN: Coronary artery disease: Stable, with no symptoms. I plan to continue current medications/treatment. On ASA, ARB, BB, and statin. See below, #4. Hypertension: Blood pressure is currently well controlled. I plan to continue current medications. No additional testing is required at this time. States takes his meds as he feels. Hyperlipidemia: Managed per PCP. I did not order any further blood work. On statin. Abn ECG: Overall asymptomatic. Agreeable to stress test. Hypertrophic Cardiomyopathy: D/W patient and spouse. New to HD- as below, #7. Given [facility] potential to maybe stop HD and [facility] previously refusing to do cMRI on CKD patient, will hold off on cMRI at this time. Consider in future. Agreeable to stress test and Holter. Echo as noted above. BP control. Follow serial echoes. On BB currently. AAA/PAD: F/W vascular ([facility]). Chronic Kidney Disease: States somewhat improving in his numbers. Does HD via tunnel cath Gilles Snyder Sat. Currently discussing with vascular and nephrology if needs AV fistula. Per spouse, hopes to not have to do HD chronically at this time. F/W nephrology at [facility] center. Chest Discomfort: Atypical and nonexertional. As above, #4. The note was completed using EMR. Every effort was made to ensure accuracy; however, inadvertent computerized siene maker errors may be present. All patient information obtained is from either the: EMR, patient, patient family member (or whomever is present with patient)- if present, or a combination of all. MIYA Dominique, MSN MIYA Dominique 11/11/23 1422 documented in this encounter [facility] 10-04-2023 Miscellaneous Notes Patient is scheduled with [...] issues. Thank you. documented in this encounter [facility] 10-04-2023 Telephone encounter Note Patient is [...] me know if any issues. Thank you. [facility] [employer] [facility] 09-30-2023 History of Present illness Narrative Images from the original note were not included. [address] [facility] [id number] Patient: Zev Crystal Date of : 1955 [...] discomfort which he takes Tylenol for. Dr. 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 [...] History: Diagnosis Date AAA (abdominal aortic aneurysm) ([facility] monitoring Anxiety xanax prn Arthritis [...] 04/01/2023 right kidney CARDIAC CATHETERIZATION 2004 2007 [facility] CHOLECYSTECTOMY 2005 COLONOSCOPY 2012 EYE SURGERY NASAL SINUS SURGERY 2003 cleaned out NEPHRECTOMY PARTIAL OPEN(BIOBANK) Right 07/21/2023 Performed by Mary Telles MD at [facility] SKIN BIOPSY Several times STRABISMUS SURGERY 1961 [...] Renal cell carcinoma - Primary Overview 02/23/23: [facility] 10/28/22 (for AAA surv) - 2.5 cm indet ant RLP lesion > MR-abdomen WO 11/30/22 ([facility]) - 3.4 cm R renal mass [...] for your understanding. documented in this encounter [facility] 09-13-2023 Miscellaneous Notes Patient canceled previous appointment on 09/09. Can we please see if he can get an appointment in the next 1-2 weeks? Thanks. Patient is scheduled 09/27 with [facility]. Did you want him to see you instead? Please advise. Yes please documented in this encounter [facility] 09-13-2023 Telephone encounter Note Patient canceled previous appointment on 09/09. Can we please see if he can get an appointment in the next 1-2 weeks? Thanks. [facility] 09-13-2023 Telephone encounter Note Patient is scheduled 09/27 with [facility]. Did you want him to see you instead? Please advise. [facility] 09-13-2023 Telephone encounter Note Yes please [facility] 08-15-2023 Miscellaneous Notes Pt's said you were going to touch base with the Automotive Repair Technician. She is calling to see if you have done that? I sent a message. I should hopefully hear back this week. documented in this encounter [facility] 08-15-2023 Telephone encounter Note Pt's said you were going to touch base with the Automotive Repair Technician. She is calling to see if you have done that? [facility] 08-15-2023 Telephone encounter Note I sent a message. I should hopefully hear back this week. [facility] 08-05-2023 History of Present illness Narrative Images from the original note were not included. [address] [facility] [id number] Patient: Zev Crystal Date of : 1955 [...] discomfort which he takes Tylenol for. Dr. 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 [...] History: Diagnosis Date AAA (abdominal aortic aneurysm) ([facility]) monitoring Anxiety xanax prn Arthritis [...] 04/01/2023 right kidney CARDIAC CATHETERIZATION 2004 2007 [facility] CHOLECYSTECTOMY 2005 COLONOSCOPY 2012 EYE SURGERY NASAL SINUS SURGERY 2003 cleaned out NEPHRECTOMY PARTIAL OPEN(BIOBANK) Right 07/21/2023 Performed by Mary Telles MD at [facility] SKIN BIOPSY Several times STRABISMUS SURGERY [...] Renal cell carcinoma - Primary Overview 02/23/23: [facility] 10/28/22 (for AAA surv) - 2.5 cm indet ant RLP lesion > MR-abdomen WO 11/30/22 ([facility]) - 3.4 cm R renal mass [...] for your understanding. documented in this encounter [employer] 08-05-2023 Instructions Mary Telles MD - 08/05/2023 3:30 PM EST My The following attachments cannot be sent through Care Everywhere.Kidney cancer (Senegalese)documented [facility] encounter [facility] No data available for this section [facility] [place] Evaluation note Diagnosis Melanocytic nevus of trunk- Primary Benign neoplasm of skin of trunk, except scrotum Lentigines Seborrheic keratosis Neoplasm of unspecified behavior of bone, soft tissue, and skin Actinic keratosis History of skin cancer Personal history of other malignant neoplasm of skin [facility] Diagnosis End stage renal disease (CMS-HCC)- Primary End stage renal disease Abdominal aortic ectasia (CMS-HCC) Abdominal aortic ectasia PAD (peripheral artery disease) (CMS-HCC) Unspecified peripheral vascular disease [facility] Diagnosis End stage renal disease (CMS-HCC)- Primary End stage renal disease PAD (peripheral artery disease) (CMS-HCC) Unspecified peripheral vascular disease Essential hypertension Unspecified essential hypertension [facility] Diagnosis Claudication (CMS-HCC)- Primary Unspecified peripheral vascular disease PAD (peripheral artery disease) (CMS-HCC) Unspecified peripheral vascular disease Chronic kidney disease, unspecified CKD stage Renal cell carcinoma (CMS-HCC) Aneurysm of infrarenal abdominal aorta, unspecified whether ruptured (CMS-HCC) CLL (chronic lymphocytic leukemia) (CMS-HCC) Chronic lymphoid leukemia, without mention of having achieved remission Hypertrophic cardiomyopathy (CMS-HCC) Other primary cardiomyopathies documented in this encounter [facility]* Diagnosis 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- Primary Essential hypertension Unspecified essential hypertension Infrarenal abdominal aortic aneurysm (AAA) without rupture (CMS-HCC) Mixed hyperlipidemia Cigarette nicotine dependence without complication Hypertrophic cardiomyopathy (CMS-HCC) Other primary cardiomyopathies Abnormal ECG Nonspecific abnormal electrocardiogram (ECG) (EKG) PAD (peripheral artery disease) (CMS-HCC) Unspecified peripheral vascular disease Chronic kidney disease, unspecified CKD stage Chest discomfort Other chest pain documented in [facility]* Diagnosis End stage renal disease (CMS-HCC)- Primary End stage renal disease documented in this [facility]* Diagnosis Renal cell carcinoma (CMS-HCC)- Primary Infrarenal abdominal aortic aneurysm (AAA) without rupture (CMS-HCC) End stage renal disease (CMS-HCC) End stage renal disease Essential hypertension Unspecified essential hypertension Cigarette nicotine dependence without complication End stage renal disease (CMS-HCC) End stage renal disease documented in this encounter [facility]* Diagnosis End stage renal disease (CMS-HCC)- Primary End stage renal disease Essential hypertension- Primary Unspecified essential hypertension Infrarenal abdominal aortic aneurysm (AAA) without rupture (CMS-HCC) Mixed hyperlipidemia Hypertrophic cardiomyopathy (CMS-HCC) Other primary cardiomyopathies Abnormal ECG Nonspecific abnormal electrocardiogram (ECG) (EKG) PAD (peripheral artery disease) (CMS-HCC) Unspecified peripheral vascular disease Chronic kidney disease, unspecified CKD stage Chest discomfort Other chest pain Abnormal echocardiogram Nonspecific (abnormal) findings on radiological and other examination of other intrathoracic organs Preop cardiovascular exam Pre-operative cardiovascular examination End stage renal disease (CMS-HCC) End stage renal disease documented in [facility]* Diagnosis Renal mass- Primary Unspecified disorder of kidney and ureter Renal cell carcinoma (CMS-HCC) [facility] Diagnosis Infrarenal abdominal aortic aneurysm (AAA) without rupture (CMS-HCC)- Primary Renal cell carcinoma (CMS-HCC) Hypertrophic cardiomyopathy (CMS-HCC) Other primary cardiomyopathies End stage renal disease (CMS-HCC) End stage renal disease documented in this encounter [facility]* Diagnosis Renal cell carcinoma (CMS-HCC)- Primary [facility] Diagnosis Right renal mass- Primary Unspecified disorder of kidney and ureter Renal cell carcinoma (CMS-HCC) documented in this [facility]* Diagnosis Pancreatic duct dilated Other specified disease of pancreas documented in this encounter [facility]* Diagnosis Pancreatic duct dilated- Primary Other specified disease of pancreas Pancreatic lesion documented in this encounter [facility]* Diagnosis Right renal mass- Primary Unspecified disorder of kidney and ureter Pancreatic duct dilated Other specified disease of pancreas Renal cell carcinoma (CMS-HCC) documented in this encounter [facility]* Diagnosis Encounter for colorectal cancer screening- Primary Pancreatic duct dilated Other specified disease of pancreas documented in this encounter [facility]* Diagnosis Chronic pancreatitis, unspecified pancreatitis type (CMS-HCC)- Primary documented in this encounter [facility]* Diagnosis Exocrine pancreatic insufficiency- Primary Other specified disease of pancreas documented in this encounter [facility]* Diagnosis Preop testing- Primary Unspecified pre-operative examination Pancreatic neoplasm Malignant neoplasm of pancreas, part unspecified Elevated blood sugar Other abnormal glucose documented in this encounter [facility]* Diagnosis Renal cell carcinoma (CMS-HCC)- Primary Infrarenal abdominal aortic aneurysm (AAA) without rupture (CMS-HCC) End stage renal disease (CMS-HCC) End stage renal disease Hypertrophic cardiomyopathy (CMS-HCC) Other primary cardiomyopathies 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CMS-HCC) Arteriovenous fistula, acquired documented in this encounter [facility]* Diagnosis IPMN (intraductal papillary mucinous neoplasm)- Primary Neoplasm of unspecified nature of digestive system Pancreatic duct dilated Other specified disease of pancreas documented in this encounter [facility]* Diagnosis Infrarenal abdominal aortic aneurysm (AAA) without rupture (CMS-HCC)- Primary PAD (peripheral artery disease) (CMS-HCC) Unspecified peripheral vascular disease Hypertrophic cardiomyopathy (CMS-HCC) Other primary cardiomyopathies Renal cell carcinoma (CMS-HCC) End stage renal disease (CMS-HCC) End stage renal disease [facility] Diagnosis Pancreatic neoplasm- Primary Malignant neoplasm of pancreas, part unspecified Pancreatic neoplasm Malignant neoplasm of pancreas, part unspecified Acute postoperative pain Other acute postoperative pain [facility] Diagnosis IPMN (intraductal papillary mucinous neoplasm)- Primary Neoplasm of unspecified nature of digestive system B-cell lymphoma of intra-abdominal lymph nodes, unspecified B-cell lymphoma type (CMS-HCC) [facility] Diagnosis IPMN (intraductal papillary mucinous neoplasm)- Primary Neoplasm of unspecified nature of digestive system B-cell lymphoma of intra-abdominal lymph nodes, unspecified B-cell lymphoma type (CMS-HCC) [facility] Diagnosis CLL (chronic lymphocytic leukemia) (CMS-HCC)- Primary Chronic lymphoid leukemia, without mention of having achieved remission IPMN (intraductal papillary mucinous neoplasm) Neoplasm of unspecified nature of digestive system B-cell lymphoma of intra-abdominal lymph nodes, unspecified B-cell lymphoma type (CMS-HCC) Renal cell carcinoma (CMS-HCC) [facility]* Diagnosis Postoperative visit- Primary IPMN (intraductal papillary mucinous neoplasm) Neoplasm of unspecified nature of digestive system B-cell lymphoma of intra-abdominal lymph nodes, unspecified B-cell lymphoma type (CMS-HCC) [facility]* Diagnosis Exocrine pancreatic insufficiency- Primary Other specified disease of pancreas Postoperative visit IPMN (intraductal papillary mucinous neoplasm) Neoplasm of unspecified nature of digestive system [facility]* Diagnosis Exocrine pancreatic insufficiency Other specified disease of pancreas [facility] instructions No data available for this section [facility] General [facility] Discharge instructions* Attachments The following attachments cannot be sent through Care Everywhere. * Managing pain after surgery (Senegalese) * Whipple Procedure ([place]) [facility] System[facility]ructionsNot on file documented in this [facility] SystemInstructionsNot on file documented in [facility] SystemInstructionsNot on file documented in this [facility] SystemInstructionsNot on file documented in this [facility] SystemInstructionsNot on file documented in this [facility] SystemInstructionsNot on file documented in this [facility] SystemInstructionsNot on file documented in this [facility] SystemInstructionsNot on file documented in this [facility] SystemInstructionsNot on file documented in this [facility] SystemInstructionsNot on file documented in this encounter[facility] SystemInstructionsNot on file documented in this [facility] SystemInstructions* Attachments The following attachments cannot be sent through Care Everywhere. * Kidney cancer ([place]) documented in [facility] System[facility]ructionsNot on file documented in this encounter[facility] SystemInstructionsNot on file documented in this [facility] SystemInstructions* Attachments The following attachments cannot be sent through Care Everywhere. * Kidney cancer ([place]) documented in [facility] SystemInstructionsNot on file documented in this encounterPro[facility] SystemInstructionsNot on file documented in this encounter[facility] SystemInstructionsNot on file documented in this encounterPro[facility] SystemInstructionsNot on file documented in this encounter[facility] SystemInstructionsNot on file documented in this encounterPro[facility] Health SystemInstructionsNot on file documented in this encounterProMedica Health SystemInstructionsNot on file documented in this encounterProMedica Health SystemProgress note No data available for this section [facility] [employer] Reason for referral (narrative)* Consultation (Routine) - Pending Review Specialty Diagnoses / Procedures Referred By Rhea manjarrez Referred To Contact Gastroenterology Diagnoses Pancreatic duct dilated Jeffrey Mcfadden MD [address], [address] [address] [facility] [address] [place] [phone] Referral ID Status Reason Start Date Expiration Date Visits Requested Visits Authorized [id number] Pending Review Specialty Services Required 02/15/2024 02/14/2025 1 1 [facility] for referral (narrative)* Misc (Routine) - Pending Review Specialty Diagnoses / Procedures Referred By Contac t Referred To Contact Procedures Discharge Follow-Up Kylie Uribe PA [address], [address] [address] Phone: tel: fax: Referral ID Status Reason Start Date Expiration Date V isits Requested Visits Authorized [id number] Pending Review 05/17/2024 05/17/2025 1 1 * Misc (Routine) - Pending Review Specialty Diagnoses / Procedures Referred By Contac t Referred To Contact Procedures No dressing needed Kylie Uribe PA [address], [address] [address] Phone: tel: fax: Referral ID Status Reason Start Date Expiration Date V isits Requested Visits Authorized [id number] Pending Review 05/17/2024 05/17/2025 1 1 * Misc (Routine) - Pending Review Specialty Diagnoses / Procedures Referred By Contac t Referred To Contact Procedures Hygiene Kylie Uribe PA [address], [address] [address] Phone: tel: fax: Referral ID Status Reason Start Date Expiration Date V isits Requested Visits Authorized [id number] Pending Review 05/17/2024 05/17/2025 1 1 * Misc (Routine) - Pending Review Specialty Diagnoses / Procedures Referred By Rhea t Referred To Contact Procedures Adult diet Kylie Uribe PA [address], [address] [address] Phone: tel: fax: Referral ID Status Reason Start Date Expiration Date V isits Requested Visits Authorized [id number] Pending Review 05/17/2024 05/17/2025 1 1 [facility] SystemReason [facility] Narrative* Consultation (Routine) - Pending Review Specialty Diagnoses / Procedures [facility] Referred To Contact Surgical Oncology Diagnoses Pancreatic duct dilated Mary Telles MD [address] [place] [address] Jeffrey Mcfadden MD [address], [address] [address] Referral ID Status Reason Start Date Expiration Date Visits Requested Visits Authorized [id number] Pending Review Specialty Services Required 02/03/2024 02/02/2025 1 1 [facility] SystemReason for [facility] Narrative* Auth/Cert (Routine) Specialty Diagnoses / Procedures [facility] Referred To Contact Diagnoses Pancreatic neoplasm PANCREATIC NEOPLASM Procedures PANCREATECTOMY PARTIAL/POSSIBLE DISTAL - BIOBANK WHIPPLE - BIOBANK SPLENECTOMY - BIOBANK Jeffrey Mcfadden MD [address], [address] [address] Phone: tel: fax: Referral ID Status Reason Start Date Expiration Date Visits Re quested Visits Authorized [id number] 1 1 [facility] [employer] [facility] SystemReason for visit Narrative* Consultation (Routine) - Pending Review Specialty Diagnoses / Procedures Referred By Contac t Referred To Contact Medical Oncology / Hematology and Oncology Diagnoses 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, unspecified B-cell lymphoma type (CMS-HCC) Amanda Randall PA-C [address] [place] [address] Phone: tel: fax: Stanley Gillette MD [address] [place] [address] Phone: tel: fax: Referral ID Status Reason Start Date Expiration Date Visits Requested Visits Authorized [id number] Pending Review Specialty Services Required 05/22/2025 1 1 [facility] Summary Purpose Family History No Family History Records Found No data available for this section No Family History Records FoundNo Family History Records FoundNo Family History Records FoundNo Family History Records FoundNo Family History Records FoundNo Family History Records FoundNo Family History Records Found Advance Directives No Advanced Directives Records FoundDocuments on File Type Date Recorded Patient Rug Dyer Helper Expl anation Living Will 05/09/2024 12:33 PM Date Activated Date Inactivated Comments 05/11/2024 6:40 AM 05/17/2024 1:34 PM Date Activated Date Inactivated Comments 07/21/2023 7:44 PM 07/27/2023 6:42 PM Date Activated Date Inactivated Comments 02/23/2018 1:40 AM 02/24/2018 6:19 PM Healthcare Agents on File Name Relationship Healthcare Agent Dinorah p Nu Crystal Spouse Health Care Agent [email or web address] Agents on File Name Relationship Healthcare Agent Timothyhi p Communication Loni Crystal Spouse Health Care Agent ([email or web address] Documents on File Type Date Recorded Patient Rug Dyer Helper Expl anation Living Will 05/09/2024 12:33 PM Date Activated Date Inactivated Comments 05/11/2024 6:40 AM 05/17/2024 1:34 PM Date Activated Date Inactivated Comments 07/21/2023 7:44 PM 07/27/2023 6:42 PM Date Activated Date Inactivated Comments 02/23/2018 1:40 AM 02/24/2018 6:19 PM Healthcare Agents on File Name Relationship Healthcare Agent Timothyhi p Communication Loni Crystal Spouse Health Care Agent [email or web address] Agents on File Name Relationship Healthcare Agent Relationshi p Communication Loni Crystal Spouse Health Care Agent [email or web address] Date Activated Date Inactivated Comments 07/21/2023 7:44 PM 07/27/2023 6:42 PM Date Activated Date Inactivated Comments 02/23/2018 1:40 AM 02/24/2018 6:19 PM Date Activated Date Inactivated Comments 07/21/2023 7:44 PM 07/27/2023 6:42 PM Date Activated Date Inactivated Comments 02/23/2018 1:40 AM 02/24/2018 6:19 PM Latest [...] Code 02/23/2018 1:40 AM 02/24/2018 6:19 PM Healthcare Agents on File Name Relationship Healthcare Agent Relationshi p Communication Loni Crystal Spouse Health Care Agent Date Activated Date Inactivated Comments 05/11/2024 6:40 AM Healthcare Agents on File Name Relationship Healthcare Agent Relationshi p Communication Loni Crystal Spouse Health Care Agent [email or web address] Agents on File Name Relationship Healthcare Agent Relationshi p Communication Loni Crystal Spouse Health Care Agent [email or web address] Agents on File Name Relationship Healthcare Agent Relationshi p Communication Loni Crystal Spouse Health Care Agent [email or web address] Agents on File Name Relationship Healthcare Agent Relationshi p Communication Loni Crystal Spouse Health Care Agent [email or web address] Agents on File Name Relationship Healthcare Agent Relationshi p Communication Loni Crystal Spouse Health Care Agent [email or web address] Healthcare Agents on File Name Relationship Healthcare Agent Dinorah felder Communication Loni Crystal Spouse Health Care Agent [email or web address] Healthcare Agents on File Name Relationship Healthcare Agent Dinorah felder Communication Loni Crystal Spouse Health Care Agent [email or web address] Reason for Referral Specialty Diagnoses / Procedures Referred By Contac t Referred To Contact Diagnoses Renal cell carcinoma (CMS-HCC) Infrarenal abdominal aortic aneurysm (AAA) without rupture (CMS-HCC) Procedures Vas aorta/iliac duplex complete Zac Lombardi MD [address], [address] [address] Referral ID Status Reason Start Date Expiration Date V isits Requested Visits Authorized [id number] Pending Review 04/02/2024 04/02/2025 1 1 Specialty Diagnoses / Procedures Referred By Contac t Referred To Contact Diagnoses Preop testing Procedures Follow anesthesia guideines Lesvia Cyr, DEVELOPMENT GEOLOGIST-PRODUCTION CONTROL COORDINATOR [address] [place] [phone] Referral ID Status Reason Start Date Expiration Date V isits Requested Visits Authorized [id number] Pending Review 04/25/2024 04/25/2025 1 1 Specialty Diagnoses / Procedures Referred By Contac t Referred To Contact Diagnoses Pancreatic duct dilated Procedures Endoscopic Ultrasonography, GI Upper Polly Reeder MD [address] [place] [address], [address] [address] Referral ID Status Reason Start Date Expiration Date V isits Requested Visits Authorized [id number] Pending Review 02/29/2024 02/28/2025 1 1 Specialty Diagnoses / Procedures Referred By Contac t Referred To Contact Diagnoses Encounter for colorectal cancer screening Procedures Colonoscopy Polly Reeder MD [address] [facility], [address] [address] Referral ID Status Reason Start Date Expiration Date V isits Requested Visits Authorized [id number] Pending Review 02/29/2024 02/28/2025 1 1 Specialty Diagnoses / Procedures Referred By Contac t Referred To Contact Radiology Diagnoses Pancreatic duct dilated Pancreatic lesion Procedures MRCP with MRI abdomen with and without contrast Yung Wolfe PA [address] [facility], [address] [place] [address] Referral ID Status Reason Start Date Expiration Date V isits Requested Visits Authorized [id number] Pending Review 02/16/2024 02/15/2025 1 1 Specialty Diagnoses / Procedures Referred By Contac t Referred To Contact Radiology Diagnoses Renal cell carcinoma (CMS-HCC) Procedures MR abdomen with and without contrast Mary Telles MD [address] [place] [address] Referral ID Status Reason Start Date Expiration Date V isits Requested Visits Authorized [id number] Pending Review 08/05/2023 08/04/2024 1 1 Specialty Diagnoses / Procedures Referred By Contac t Referred To Contact Diagnoses Essential hypertension Hypertrophic cardiomyopathy ([facility]-HCC) Abnormal ECG Abnormal echocardiogram Procedures Echo complete W/O contrast Mckinley Winkler MD [address] [place] [address] [facility] [address] [place] [address] Phone: [phone] Referral ID Status Reason Start Date Expiration Date V isits Requested Visits Authorized [id number] Pending Review 01/02/2024 01/01/2025 1 1 Specialty Diagnoses / Procedures Referred By Contac t Referred To Contact Diagnoses End stage renal disease ([facility]-HCC) Procedures Vas vessel mapping hemodialysis bi Alpa Tafoya MD [address] [facility] [address] [place] [address] Referral ID Status Reason Start Date Expiration Date V isits Requested Visits Authorized [id number] Pending Review 12/28/2023 12/27/2024 1 1 Specialty Diagnoses / Procedures Referred By Contac t Referred To Contact Diagnoses Hypertrophic cardiomyopathy ([facility]-HCC) Abnormal ECG Chest discomfort Procedures Holter monitor 3-5 days Robin Danielsin DEVELOPMENT GEOLOGIST-PRODUCTION CONTROL COORDINATOR [address] [facility] [place] [address] [address] Phone: [phone] Referral ID Status Reason Start Date Expiration Date V isits Requested Visits Authorized [id number] Pending Review 11/11/2023 11/10/2024 1 1 Specialty Diagnoses / Procedures Referred By Contalvaro t Referred To Contact Diagnoses Essential hypertension Mixed hyperlipidemia Cigarette nicotine dependence without complication Hypertrophic cardiomyopathy ([facility]-HCC) Abnormal ECG Chronic kidney disease, unspecified CKD stage Chest discomfort 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 Procedures Nuc stress Lexiscan Aravind Daniels DEVELOPMENT GEOLOGIST-OUP [address] [facility], [address] [place] [address] [address] Phone: [phone] Referral ID Status Reason Start Date Expiration Date V isits Requested Visits Authorized [id number] Pending Review 11/11/2023 11/10/2024 5 5 Additional Source Comments (unrecognized sect ion and content) No Status Records FoundNo Status Records FoundNo Status Records FoundNo Status Records FoundNo Status Records FoundNo Status Records FoundNo Status Records FoundNo Status Records Found INFORMATION SOURCE (unrecogn ized section and content) DATE CREATED AUTHOR 12/05/2022 [facility] DATE CREATED AUTHOR AUTHOR'S ORGANIZ ATION 12/27/2023 [facility] DATE CREATED AUTHOR AUTHOR'S ORGANIZ ATION 01/02/2024 [facility] DATE CREATED AUTHOR AUTHOR'S ORGANIZ ATION 05/01/2024 [facility] DATE CREATED AUTHOR AUTHOR'S ORGANIZ ATION 08/18/2024 [facility] DATE CREATED AUTHOR AUTHOR'S ORGANIZ ATION 08/24/2024 [facility] DATE CREATED AUTHOR AUTHOR'S ORGANIZ ATION 08/25/2024 [facility] DATE CREATED AUTHOR AUTHOR'S ORGANIZ ATION 10/14/2024 [facility] Patient Care team informatio n (unrecognized section and content) Staff Registered Nurse Relationship Specialty Start Date End Date Dylan Montilla MD PCP - General Family Medicine 06/23/22 Staff Registered Nurse Relationship Specialty Start Date End Date Dylan Montilla MD PCP - General Family Medicine 06/23/22 Staff Registered Nurse Relationship Specialty Start Date End Date Dylan Montilla MD PCP - General Family Medicine 06/23/22 Staff Registered Nurse Relationship Specialty Start Date End Date Dylan Montilla MD PCP - General Family Medicine 06/23/22 Staff Registered Nurse Relationship Specialty Start Date End Date Dylan Montilla MD [address] [place] [address] PCP - General Family Medicine 06/23/22 Staff Registered Nurse Relationship Specialty Start Date End Date Dylan Montilla MD [address] [place] [address] PCP - General Family Medicine 06/23/22 Staff Registered Nurse Relationship Specialty Start Date End Date Dylan Montilla MD [address] [place] [address] PCP - General Family Medicine 06/23/22 Staff Registered Nurse Relationship Specialty Start Date End Date Dylan Montilla MD [address] [place] [address] PCP - General Family Medicine 06/23/22 Staff Registered Nurse Relationship Specialty Start Date End Date Dylan Montilla MD [address] [place] [phone] PCP - General Family Medicine 06/23/22 Staff Registered Nurse Relationship Specialty Start Date End Date Dylan Montilla MD [address] [id number] PCP - General Family Medicine 06/23/22 Staff Registered Nurse Relationship Specialty Start Date End Date Dylan Montilla MD [address] [id number] PCP - General Family Medicine 06/23/22 Staff Registered Nurse Relationship Specialty Start Date End Date Dylan Montilla MD [address] [id number] PCP - General Family Medicine 06/23/22 Staff Registered Nurse Relationship Specialty Start Date End Date Dylan Montilla MD [address] [id number] PCP - General Family Medicine 06/23/22 Staff Registered Nurse Relationship Specialty Start Date End Date Dylan Montilla MD [address] [id number] PCP - General Family Medicine 06/23/22 Staff Registered Nurse Relationship Specialty Start Date End Date Dylan Montilla MD [address] [place] [id number] PCP - General Family Medicine 06/23/22 Staff Registered Nurse Relationship Specialty Start Date End Date Dylan Montilla MD [address] [id number] PCP - General Family Medicine 06/23/22 Staff Registered Nurse Relationship Specialty Start Date End Date Dylan Montilla MD [address] [id number] PCP - General Family Medicine 06/23/22 Staff Registered Nurse Relationship Specialty Start Date End Date Dylan Montilla MD [address] [id number] PCP - General Family Medicine 06/23/22 Staff Registered Nurse Relationship Specialty Start Date End Date Dylan Montilla MD [address] [id number] PCP - General Family Medicine 06/23/22 Staff Registered Nurse Relationship Specialty Start Date End Date Dylan Montilla MD [address] [id number] PCP - General Family Medicine 06/23/22 Staff Registered Nurse Relationship Specialty Start Date End Date Dylan Montilla MD PCP - General Family Medicine 06/23/22 Staff Registered Nurse Relationship Specialty Start Date End Date Dylan Montilla MD PCP - General Family Medicine 06/23/22 Staff Registered Nurse Relationship Specialty Start Date End Date Dylan Montilla MD PCP - General Family Medicine 06/23/22 Staff Registered Nurse Relationship Specialty Start Date End Date Dylan Montilla MD PCP - General Family Medicine 06/23/22 Staff Registered Nurse Relationship Specialty Start Date End Date Dylan Montilla MD PCP - General Family Medicine 06/23/22 Staff Registered Nurse Relationship Specialty Start Date End Date Dylan Montilla MD PCP - General Family Medicine 06/23/22 Staff Registered Nurse Relationship Specialty Start Date End Date Dylan Montilla MD PCP - General Family Medicine 06/23/22 Staff Registered Nurse Relationship Specialty Start Date End Date Dylan Montilla MD PCP - [facility] 06/23/22 Staff Registered Nurse Relationship Specialty Start Date End Date Dylan Montilla MD PCP - [facility] 06/23/22 Staff Registered Nurse Relationship Specialty Start Date End Date Dylan Montilla MD PCP - [facility] 06/23/22 Staff Registered Nurse Relationship Specialty Start Date End Date Dylan Montilla MD PCP - [facility] 06/23/22 Staff Registered Nurse Relationship Specialty Start Date End Date Dylan Montilla MD PCP - General Family Medicine 06/23/22 Staff Registered Nurse Relationship Specialty Start Date End Date Dylan Montilla MD PCP - General Family Medicine 06/23/22 Reason for Visit (unrecogniz ed section and content) Reason Comments Skin Check Reason Comments Renal cell carcinoma (CMS-HCC) Infrarena l abdominal aortic Reason Comments New Patient ECHO abnormal Reason Comments Follow-up needs access for calixto lysis Reason Comments Follow-up Stress & holter resu lts f/u Reason Comments Follow-up Reason Comments Post-op Reason Comments Follow-up 1 month fu Reason Comments Follow-up Reason Comments EGD Patient here for a c onsult. Specialty Diagnoses / Procedures Referred By Rhea manjarrez Referred To Contact Gastroenterology Diagnoses Pancreatic duct dilated Jeffrey Mcfadden MD [address], [address] [address] [facility] [address] [place] [address] Referral ID Status Reason Start Date Expiration Date Visits Requested Visits Authorized [id number] Pending Review Specialty Services Required 02/15/2024 02/14/2025 1 1 Reason Onset Date Comments Med Refill 03/06/2024 Reason Comments Follow-up Follow up 6-8 weeks. Left AVF VS AVG creation on 01/11/2024. Reason Comments Follow-up Follow up hematoma o n avf left arm.; patient has some soreness in left arm when stretching it Reason Comments Post-op Patient states his d rain site is leaking and sometimes there is a significant amount of leakage. Reason Comments Follow-up Scheduled Active and Recently Administ ered Medications (unrecognized section and content) Medication Order 05/15/2024 05/16/2024 05/17/2024 carvediloL (COREG) tablet 25 mg 25 mg, oral, 2 times daily, First dose (after last modification) on Tue05/11/24 at 0900, Hold for systolic less than 100 or heart rate less than 60 Give with meal or snack. Look-alike/sound-alike medication - verify indication for use. 1438 (Given - Provider: Jerica Wiggins RN)2100 (Not Given - Provider: Jones Velasquez, ZENOBIA - Reason: Patient/family refused - Comment: stomach hurts) 0831 (Given - Provider: Kelly Rendon, ZENOBIA)2025 (Given - Provider: Dixie Ferrera, ZENOBIA) 0955 (Given - Provider: Joel Lewis RN)2099 (Due) docusate sodium (COLACE) capsule 100 mg 100 mg, oral, 2 times daily, First dose on Tue05/13/24 at 0900, Look-alike/sound-alike medication - verify indication for use. 0831 (Given - Provider: Jerica Wiggins RN)2100 (Not Given - Provider: Jones Velasquez RN - Reason: Patient/family refused - Comment: stomach hurts) 0831 (Given - Provider: Kelly Rendon RN)2100 (Not Given - Provider: Dixie Ferrera RN - Reason: Patient/family refused) 0955 (Not Given - Provider: Joel Lewis, ZENOBIA - Reason: Patient/family refused)2100 (Due) glimepiride (AMARYL) tablet 2 mg 2 mg, oral, Daily with breakfast, First dose on Tue05/16/24 at 1700, Hold dose and notify prescriber if blood glucose is less than 100 mg/dL or patient status has changed to NPO. Look-alike/sound-alike medication - verify indication for use. May alter blood glucose or insulin requirements. 1803 (Given - Provider: Kelly Rendon RN) 0955 (Given - Provider: Joel Lewis, RN) heparin (porcine) injection 5,000 Units 5,000 Units, subcutaneous, Every 8 hours scheduled, First dose on Tue05/10/24 at 1400, Look-alike/sound-alike medication - verify indication for use. Observe for bleeding. 0600 (Not Given - Provider: Brielle Guzman RN - Reason: Patient/family refused)1400 (Not Given - Provider: Jerica Wiggins RN - Reason: Patient/family refused)2200 (Not Given - Provider: Jones Velasquez RN - Reason: Patient/family refused) 0600 (Not Given - Provider: Jones Velasquez RN - Reason: Patient/family refused)1441 (Given - Provider: Kelly Rendon RN)2026 (Given - Provider: Dixie Ferrera, ZENOBIA)2200 (Canceled Entry - Provider: Dixie Ferrera, RN) 0600 (Given - Provider: Dixie Ferrera, RN)1400 (Due)2200 (Due) insulin lispro (HumaLOG) injection 2-16 Units 2-16 Units, subcutaneous, Every 4 hours, First dose (after last modification) on Tue05/13/24 at 0400, hyperglycemia dosing. For blood glucose 151-180mg/dL, give 2 units. For blood glucose 181-210mg/dL, give 4 units. For blood glucose 211-240mg/dL, give 6 units. For blood glucose 241-270mg/dL, give 8 units. For blood glucose 271-300mg/dL, give 10 units. For blood glucose 301-350mg/dL, give 12 units For blood glucose 351-400mg/dL, give 16 units For blood glucose >400 call MD Give even if NPO or meals skipped. Do NOT give more often then every 4 hours when NPO. Look-alike/sound-alike medication - verify indication for use. Prime with 2 units of insulin prior to administration. Prandial/supplemental Insulin. Pre-filled pens stable 28 days at room temperature. Insulin lispro should be administered within 15 minutes before or immediately after a meal. 0017 (Not Given - Provider: Brielle Guzman RN - Reason: Order parameters not met)0427 (Not Given - Provider: Brielle Guzman RN - Reason: Order parameters not met)0800 (Not Given - Provider: Jerica Wiggins RN - Reason: Order parameters not met)1200 (Not Given - Provider: Jerica Wiggins RN - Reason: Patient not available)1600 (Not Given - Provider: Jerica Wiggins RN - Reason: Order parameters not met)2050 (Not Given - Provider: Jones Velasquez RN - Reason: Other) 0000 (Not Given - Provider: Jones Velasquez RN - Reason: Order parameters not met - Comment: [phone] (Not Given - Provider: Jones Velasquez RN - Reason: Order parameters not met - Comment: [phone] (Given - Provider: Kelly Rendon RN - Comment: [phone] (Given - Provider: Kelly Rendon RN - Comment: [phone] (Given - Provider: Kelly Rendon RN - Comment: [phone] (Given - Provider: Dixie Ferrera RN) 0000 (Not Given - Provider: Dixie Ferrera RN - Reason: Order parameters not met)0400 (Not Given - Provider: Dixie Ferrera RN - Reason: Order parameters not met)0954 (Not Given - Provider: Joel Lewis RN - Reason: Patient/family refused - Comment: [phone] (Due)1600 (Due)2000 (Due) levothyroxine (SYNTHROID, LEVOTHROID) tablet 50 mcg 50 mcg, oral, Daily, First dose on Tue05/14/24 at 1145, Look-alike/sound-alike medication. Verify indication for use Administer on empty stomach at least ONE hour before or TWO hours after food Enteral Feeding: For 7 days or less of tube feeding- do NOT hold tube feedings, after 7 days- hold tube feedings ONE hour before and ONE hour after administration DOES NOT APPLY TO NEONATES Monitor thyroid function tests weekly 0531 (Given - Provider: Brielle Guzman RN) 0734 (Given - Provider: Jones Velasquez RN) 0532 (Given - Provider: Dixie Ferrera, ZENOBIA) metoclopramide (REGLAN) injection 5 mg 5 mg, intravenous, Every 12 hours, First dose (after last modification) on Tue05/10/24 at 0800, Administer over 2 minutes., Intravenous Specific Administration: IV Push 0831 (Given - Provider: Jerica Wiggins RN)1954 (Given - Provider: Jones Velasquez, ZENOBIA) 0836 (Given - Provider: Kelly Rendon RN)2024 (Given - Provider: Dixie Ferrera, ZENOBIA) 0957 (Given - Provider: Joel Lewis, ZENOBIA)1999 (Due) NIFEdipine XL (PROCARDIA XL) 24 hr tablet 60 mg 60 mg, oral, Every 24 hours scheduled, First dose (after last modification) on Tue05/15/24 at 0900, 60 mg in the morning and 30 mg in the evening Look-alike/sound-alike medication - verify indication for use. Swallow whole-do not split, crush, or chew. Avoid grapefruit juice. 1439 (Given - Provider: Jerica Wiggins RN) 0835 (Given - Provider: Kelly Rendon, ZENOBIA) 0955 (Given - Provider: Joel Lewis, RN) sodium chloride 0.9 % bolus 150 mL, intravenous, at 600 mL/hr, Administer over 15 Minutes, Once, On Cely 05/17/24 at 0000, For 1 dose, Hemodialysis, For systolic blood pressure 100 mmHg or less. Notify physician if no response following 2nd bolus. 0948 (Canceled Entry - Provider: Joel Lewis RN - Comment: med unscanned upon return back to unit from HD) sodium chloride 0.9 % flush 10 mL 10 mL, intravenous, Every 96 hours, First dose on Tue05/10/24 at 0830, Hemodialysis, Arterial Lumen. Aspirate lumen and discard volume THEN 0.9% Sodium Chloride 10 mL IVP THEN 4% sodium citrate (0.2 grams/5 mL) IVP equal to lumen volume every 96 hours. (Direct Care RN: flush and change caps every 96 hours) sodium chloride 0.9 % flush 10 mL 10 mL, intravenous, Every 96 hours, First dose on Tue05/10/24 at 0830, Hemodialysis, Venous Lumen. Aspirate lumen and discard volume THEN 0.9% Sodium Chloride 10 mL IVP THEN 4% sodium citrate (0.2 grams/5 mL) IVP equal to lumen volume every 96 hours. (Direct Care RN: Flush and change caps every 96 hours) sodium citrate 4 % (3 mL) flush 1.6 mL 1.6 mL, intravenous, Every 96 hours, First dose on Tue05/10/24 at 0830, Hemodialysis, Arterial Lumen. IVP equal to lumen volume, up to a maximum of 2 mL, every 96 hours. (Direct Care RN: flush and change caps every 96 hours) sodium citrate 4 % (3 mL) flush 1.6 mL 1.6 mL, intravenous, Every 96 hours, First dose on Tue05/14/24 at 1200, Venous hemodialysis line sodium citrate 4 % (3 mL) flush 1.7 mL 1.7 mL, intravenous, Every 96 hours, First dose on Tue05/10/24 at 0830, Hemodialysis, Venous Lumen. IVP equal to lumen volume, up to a maximum of 2 mL, every 96 hours. (Direct Care RN: flush and change caps every 96 hours) sodium citrate 4 % (3 mL) flush 1.7 mL 1.7 mL, intravenous, Every 96 hours, First dose on Tue05/14/24 at 1145, Arterial HD line. Continuous Medication Order 05/15/2024 05/16/2024 05/17/2024 sodium chloride 0.9 % infusion 3 mL/hr, intra-arterial, Continuous, Starting on Tue05/09/24 at 1900 sodium chloride 0.9 % infusion 250 mL, hemodialysis, at 250 mL/hr, Continuous, Starting on Tue05/17/24 at 0000, Hemodialysis, as priming solution for hemodialysis tubing. 48 (Canceled Entry - Provider: Joel Lewis RN - Comment: med unscanned upon return back to unit from HD) PRN Medication Order 05/15/2024 05/16/2024 05/17/2024 acetaminophen (TYLENOL EXTRA STRENGTH) tablet 1,000 mg 1,000 mg, oral, Every 6 hours PRN, mild pain - pain scale 1-3, temperature greater than 38 C, headaches, Starting on 05/12/24 at 1330 calcium gluconate 3,000 mg in sodium chloride 0.9 % 100 mL IVPB(Linked Group 1) 3,000 mg, intravenous, at 130 mL/hr, Administer over 60 Minutes, As needed, for ionized calcium level less than 3 mg/dL, Starting on Tue05/09/24 at 1841, CALL PHYSICIAN if this dose is administered. Recheck ionized calcium 6 hours after infusion. Hold calcium replacement for phosphorus greater than 5.5 mg/dL. VESICANT (RED) calcium gluconate IVPB 1000 mg/50 mL (20 mg/mL premix)(Linked Group 1) 1,000 mg, intravenous, at 50 mL/hr, Administer over 60 Minutes, As needed, for ionized calcium level 3.5 to 4.4 mg/dL, Starting on Tue05/09/24 at 1841, Recheck ionized calcium 6 hours after infusion. Hold calcium replacement for phosphorus greater than 5.5 mg/dL. VESICANT (RED) calcium gluconate IVPB 2000 mg/100 mL (20 mg/mL premix)(Linked Group 1) 2,000 mg, intravenous, at 100 mL/hr, Administer over 60 Minutes, As needed, for ionized calcium level 3 to 3.4 mg/dL, Starting on Tue05/09/24 at 1841, Recheck ionized calcium 6 hours after infusion. Hold calcium replacement for phosphorus greater than 5.5 mg/dL. VESICANT (RED) dextrose (GLUTOSE) 40 % gel 15 g 15 g, oral, As needed, low blood sugar, blood glucose less than 70 mg/dL, Starting on Tue05/09/24 at 1841, If patient conscious and taking PO. If blood glucose is not greater than 70 mg/dL after initial treatment, repeat treatment. dextrose 50 % in water (D50W) 50% solution 25 mL 25 mL, intravenous, As needed, low blood sugar, blood glucose less than 70 mg/dL and unconscious or NPO with IV access, Starting on Tue05/09/24 at 1841, Push over 1-3 minutes STAT. If conscious and not NPO, immediately follow with meal tray or high protein (7 grams) snack if tray not available. If NPO, initiate 5% dextrose in water at 100 mL/hr and contact prescriber for additional orders. If blood glucose is not greater than 70 mg/dL after initial treatment, repeat treatment. VESICANT (RED) Warning: HYPERTONIC solution. dextrose 50 % in water (D50W) 50% solution 50 g(Linked Group 2) 50 g, intravenous, Once as needed, low blood sugar, as needed for Pre-insulin glucose level less than 150 mg/dL, Starting on Cely 05/10/24 at 0310, For 1 dose, VESICANT (RED) Warning: HYPERTONIC solution. glucagon HCL injection 1 mg 1 mg, intramuscular, As needed, low blood sugar, blood glucose less than 70 mg/dL and unconscious or NPO without IV access., Starting on Tue05/09/24 at 1841, If conscious and not NPO, immediately follow with meal tray or high protein (7Grams) snack if tray not available. If NPO, initiate IV 5% Dextrose/Water at 100 mL/hr and contact prescriber for additional orders. If blood glucose is not greater than 70 mg/dL after initial treatment, repeat treatment. hydrALAZINE (APRESOLINE) injection 20 mg 20 mg, intravenous, Every 4 hours PRN, high blood pressure, Starting on 05/12/24 at 1741, For systolic blood pressure greater than 160 or diastolic blood pressure greater than 100. Administer 2nd. Please hold for pulse greater than 95 beats per minute Look-alike/sound-alike medication - verify indication for use. Administer IV doses as a slow IV push; maximum rate: 5 mg/minute. 0006 (Canceled Entry - Provider: Dixie Ferrera RN) HYDROmorphone (DILAUDID) injection 1 mg 1 mg, intravenous, Every 4 hours PRN, For severe pain not controlled on oral medication, Starting on Tue05/15/24 at 1634, If IV push, administer over over 2 to 3 minutes. Look-alike/sound-alike medication - verify indication for use. labetaloL (NORMODYNE,TRANDATE) injection 20 mg 20 mg, intravenous, Every 4 hours PRN, high blood pressure, Starting on 05/12/24 at 1738, For systolic blood pressure greater than 160 mmHg or diastolic pressure more than 100 mmHg;administer first; please hold for pulse less than 65 beats per minute; Look-alike/sound-alike medication - verify indication for use. magnesium sulfate IVPB 2000 mg/50 mL in iso-osmotic water (40 mg/mL premix)(Linked Group 3) 2,000 mg, intravenous, at 25 mL/hr, Administer over 120 Minutes, As needed, for magnesium level 1.7 to 1.9 mg/dL or ionized magnesium level 0.45 to 0.5 mmol/L, Starting on 05/09/24 at 1841, Use premix solution. Default to ionized magnesium level in cases where patient has both magnesium and ionized magnesium results. If administered, check ionized magnesium (or total magnesium if ionized magnesium unavailable) level 4 hours after infusion. magnesium sulfate IVPB 4000 mg/100 mL in iso-osmotic water (40 mg/mL premix)(Linked Group 3) 4,000 mg, intravenous, at 25 mL/hr, Administer over 240 Minutes, As needed, for magnesium level 1.6 mg/mL or less, or ionized magnesium level 0.44 mmol/L or less, Starting on 05/09/24 at 1841, Use premix solution. Default to ionized magnesium level in cases where patient has both magnesium and ionized magnesium results. If administered, check ionized magnesium (or total magnesium if ionized magnesium unavailable) level 4 hours after infusion. midodrine (PROAMATINE) tablet 10 mg 10 mg, oral, As needed, Hemodialysis - PRN at initiation and midway through dialysis session, Starting on Cely 05/17/24 at 0000, Hemodialysis, For systolic blood pressure 100 mmHg or less. Look-alike/sound-alike medication - verify indication for use. ondansetron (PF) (ZOFRAN) injection 4 mg 4 mg, intravenous, Every 4 hours PRN, nausea, vomiting, Starting on 05/09/24 at 1841, Administer over 2-5 minutes. 1955 (Given - Provider: Jones Velasquez RN) oxyCODONE (ROXICODONE) immediate release tablet 10 mg(Linked Group 4) 10 mg, oral, Every 4 hours PRN, severe pain - pain scale 7-10, Starting on Tue05/11/24 at 1142, Look-alike/sound-alike medication - verify indication for use. Immediate release. oxyCODONE (ROXICODONE) immediate release tablet 5 mg(Linked Group 4) 5 mg, oral, Every 4 hours PRN, moderate pain - pain scale 4-6, Starting on Tue05/11/24 at 1142, Look-alike/sound-alike medication - verify indication for use. Immediate release. polyethylene glycol (GLYCOLAX) packet 17 g 17 g, oral, Daily PRN, constipation, Starting on Tue05/13/24 at 0840, Look-alike/sound-alike medication - verify indication for use. Dissolve 1 packet (17 gm) in 8 ounces of water, juice, soda, coffee or tea. potassium chloride (K-TAB,KLOR-CON) CR tablet 20-50 mEq(Linked Group 5) 20-50 mEq, oral, As needed, for potassium replacement, Starting on Tue05/09/24 at 1841, Progress to oral potassium replacement when patient tolerating oral intake. If dose administered, recheck potassium level 4 hours after last dose. For potassium level 3.4 to 3.8 mmol/L and Serum Creatinine 1.2 or less=30 mEq. For potassium level 3.1 to 3.3 mmol/L and Serum Creatinine 1.2 or less=40 mEq. For potassium level 3 mmol/L or less and Serum Creatinine 1.2 or less=50 mEq. For potassium level 3.4 to 3.8 mmol/L and Serum Creatinine greater than 1.2=20 mEq. For potassium level 3.1 to 3.3 mmol/L and Serum Creatinine greater than 1.2=30 mEq. For potassium level 3 mmol/L or less and Serum Creatinine greater than 1.2=40 mEq. Do not crush or chew. potassium chloride (KAYCIEL) 20 mEq/15 mL solution 20-50 mEq(Linked Group 5) 20-50 mEq, oral, As needed, potassium replacement, Starting on Tue05/09/24 at 1841, Progress to oral potassium replacement when patient tolerating oral intake. If dose administered, recheck potassium level 4 hours after last dose. For potassium level 3.4 to 3.8 mmol/L and Serum Creatinine 1.2 or less=30 mEq (22.5mL). For potassium level 3.1 to 3.3 mmol/L and Serum Creatinine 1.2 or less=40 mEq (30mL). For potassium level 3 mmol/L or less and Serum Creatinine 1.2 or less=50 mEq (37.5mL). For potassium level 3.4 to 3.8 mmol/L and Serum Creatinine greater than 1.2=20 mEq (15mL). For potassium level 3.1 to 3.3 mmol/L and Serum Creatinine greater than 1.2=30 mEq (22.5mL). For potassium level 3 mmol/L or less and Serum Creatinine greater than 1.2=40 mEq (30mL). Must dilute before use - Mix in 3-8 ounces of water or juice before administration When administering in feeding tube, flush before and after per policy and monitor potassium levels potassium chloride IVPB 10 mEq/100 mL in water (0.1 mEq/mL premix)(Linked Group 6) 10 mEq, intravenous, at 100 mL/hr, Administer over 60 Minutes, As needed, for potassium replacement, Starting on Tue05/09/24 at 1841, Administer Potassium Chloride IVPB in 10 mEq increments. Maximum infusion rates: Central Line = 20 mEq/hour; Peripheral Line = 10 mEq/hour (10 mEq/100 mL). If dose administered, recheck potassium level 1 hour after infusion complete. For potassium level 3.4 to 3.8 mmol/L and Serum Creatinine 1.2 or less = 30 mEq For potassium level 3.1 to 3.3 mmol/L and Serum Creatinine 1.2 or less = 40 mEq For potassium level 3 mmol/L or less and Serum Creatinine 1.2 or less = 50 mEq For potassium level 3.4 to 3.8 mmol/L and Serum Creatinine greater than 1.2 = 20 mEq For potassium level 3.1 to 3.3 mmol/L and Serum Creatinine greater than 1.2 = 30 mEq For potassium level 3 mmol/L or less and Serum Creatinine greater than 1.2 = 40 mEq VESICANT (YELLOW) Infuse each 10 mEq over a minimum of 1 hour. potassium chloride IVPB 10 mEq/50 mL in water (0.2 mEq/mL premix)(Linked Group 6) 10 mEq, intravenous, at 50 mL/hr, Administer over 1 Hours, As needed, for potassium replacement, Starting on Tue05/09/24 at 1841, Administer Potassium Chloride IVPB in 10 mEq increments. Maximum infusion rates: Central Line = 20 mEq/hour. Administer via Central Line Only. If dose administered, recheck potassium level 1 hour after infusion complete. For potassium level 3.4 to 3.8 mmol/L and Serum Creatinine 1.2 or less = 30 mEq For potassium level 3.1 to 3.3 mmol/L and Serum Creatinine 1.2 or less = 40 mEq For potassium level 3 mmol/L or less and Serum Creatinine 1.2 or less = 50 mEq For potassium level 3.4 to 3.8 mmol/L and Serum Creatinine greater than 1.2 = 20 mEq For potassium level 3.1 to 3.3 mmol/L and Serum Creatinine greater than 1.2 = 30 mEq For potassium level 3 mmol/L or less and Serum Creatinine greater than 1.2 = 40 mEq VESICANT (YELLOW) sod phos di, mono-K phos mono (K-PHOS NEUTRAL) 250 mg tablet 2 tablet(Linked Group 7) 2 tablet, oral, As needed, for phosphorous level 2.3 mg/dL or less, Starting on Tue05/09/24 at 1841, If dose administered, recheck phosphorus level 4 hours after last dose. Look-alike/sound-alike medication - verify indication for use. Give with a full glass of water. sodium chloride 0.9 % bolus 150 mL, intravenous, at 600 mL/hr, Administer over 15 Minutes, Every 5 min PRN, hypotension during hemodialysis, Starting on Tue05/11/24 at 0000, For 3 doses, Hemodialysis, For systolic blood pressure < 90. Notify physician if no response following 3rd bolus sodium chloride 0.9 % flush 10 mL 10 mL, intravenous, As needed, line care, Starting on Tue05/10/24 at 0824, Hemodialysis, Arterial Lumen. Before use aspirate lumen and discard lumen volume THEN 0.9% Sodium Chloride 10 mL IVP. (manager automotive: flush at beginning of each hemodialysis treatment). 0628 (Given - Provid er: Mey Sorto LPN) sodium chloride 0.9 % flush 10 mL 10 mL, intravenous, As needed, line care, Starting on [place] 05/10/24 at 0824, Hemodialysis, Arterial Lumen. 0.9% Sodium Chloride 10 mL IVP THEN 4% sodium citrate (0.2 grams/5 mL) IVP equal to lumen volume after use. (manager automotive: flush and change caps after each hemodialysis treatment) 1338 (Given - Provider: Mony Alejandro RN) 0916 (Given - Provider: Mey Sorto LPN) sodium chloride 0.9 % flush 10 mL 10 mL, intravenous, As needed, line care, Starting on [place] 05/10/24 at 0824, Hemodialysis, Venous Lumen. Before use aspirate lumen and discard lumen volume THEN 0.9% Sodium Chloride 10 mL IVP. (manager automotive: flush at beginning of each hemodialysis treatment) 0627 (Given - Provid er: Mey Sorto LPN) sodium chloride 0.9 % flush 10 mL 10 mL, intravenous, As needed, line care, Starting on [place] 05/10/24 at 0824, Hemodialysis, Venous Lumen. 0.9% Sodium Chloride 10 mL IVP THEN 4% sodium citrate (0.2 grams/5 mL) IVP equal to lumen volume after use. (manager automotive: flush and change caps after each hemodialysis treatment) 0832 (Given - Provider: Jerica Wiggins RN)1338 (Given - Provider: Mony Alejandro RN) 0915 (Given - Provider: Mey Sorto LPN) sodium citrate 4 % (3 mL) flush 1.6 mL 1.6 mL, intravenous, As needed, line care, Starting on [place] 05/10/24 at 0824, Hemodialysis, Arterial Lumen. IVP equal to lumen volume, up to a maximum of 2 mL, after use. (manager automotive: flush and change caps after each hemodialysis treatment) 1339 (Given - Provider: Mony Alejandro RN) 0916 (Given - Provider: Mey Sorto LPN) sodium citrate 4 % (3 mL) flush 1.7 mL 1.7 mL, intravenous, As needed, line care, Starting on [place] 05/10/24 at 0824, Hemodialysis, Venous Lumen. IVP equal to lumen volume, up to a maximum of 2 mL, after use. (manager automotive: flush and change caps after each hemodialysis treatment) [id number] (Given - Provider: Mony Alejandro RN) 0819 (Given - Provider: Mey Sorto LPN) sodium phosphate 20 mmol in sodium chloride 0.9 % 100 mL IVPB(Linked Group 7) 20 mmol, intravenous, at 26.7 mL/hr, Administer over 4 Hours, As needed, for phosphorous level 2.3 mg/dL or less, Starting on Tue05/09/24 at 1841, Administer over 4 hours via dedicated line(central line). If administered, recheck phosphorus level 4 hours after infusion complete. Infuse using central line access. sodium phosphate 20 mmol in sodium chloride 0.9 % 250 mL IVPB(Linked Group 7) 20 mmol, intravenous, at 42.8 mL/hr, Administer over 6 Hours, As needed, for phosphorous level 2.3 mg/dL or less, Starting on Tue05/09/24 at 1841, Administer over 6 hours via dedicated line (peripheral line). If administered, recheck phosphorus level 4 hours after infusion complete. Linked Groups Order Group 1: calcium gluconate IVPB 1000 mg/50 mL (20 mg/mL premix)Jump to med 1,000 mg, intravenous, at 50 mL/hr, Administer over 60 Minutes, As needed, for ionized calcium level 3.5 to 4.4 mg/dL, Starting on Tue05/09/24 at 1841, Recheck ionized calcium 6 hours after infusion. Hold calcium replacement for phosphorus greater than 5.5 mg/dL. VESICANT (RED) Or calcium gluconate IVPB 2000 mg/100 mL (20 mg/mL premix)Jump to med 2,000 mg, intravenous, at 100 mL/hr, Administer over 60 Minutes, As needed, for ionized calcium level 3 to 3.4 mg/dL, Starting on Tue05/09/24 at 1841, Recheck ionized calcium 6 hours after infusion. Hold calcium replacement for phosphorus greater than 5.5 mg/dL. VESICANT (RED) Or calcium gluconate 3,000 mg in sodium chloride 0.9 % 100 mL IVPBJump to med 3,000 mg, intravenous, at 130 mL/hr, Administer over 60 Minutes, As needed, for ionized calcium level less than 3 mg/dL, Starting on Tue05/09/24 at 1841, CALL PHYSICIAN if this dose is administered. Recheck ionized calcium 6 hours after infusion. Hold calcium replacement for phosphorus greater than 5.5 mg/dL. VESICANT (RED) Group 2: insulin regular (HumuLIN R,NovoLIN R) injection 10 Units (COMPLETED) 10 Units, intravenous, Once, On Tue05/10/24 at 0315, For 1 dose, Look-alike/sound-alike medication - verify indication for use. Prandial/supplemental insulin. Stable for 28 days at room temperature. And dextrose 50 % in water (D50W) 50% solution 25 g (COMPLETED) 25 g, intravenous, Once as needed, low blood sugar, as needed for Pre-insulin glucose level 150-250 mg/dL, Starting on Tue05/10/24 at 0310, For 1 dose, VESICANT (RED) Warning: HYPERTONIC solution. And dextrose 50 % in water (D50W) 50% solution 50 gJump to med 50 g, intravenous, Once as needed, low blood sugar, as needed for Pre-insulin glucose level less than 150 mg/dL, Starting on Tue05/10/24 at 0310, For 1 dose, VESICANT (RED) Warning: HYPERTONIC solution. Group 3: magnesium sulfate IVPB 2000 mg/50 mL in iso-osmotic water (40 mg/mL premix)Jump to med 2,000 mg, intravenous, at 25 mL/hr, Administer over 120 Minutes, As needed, for magnesium level 1.7 to 1.9 mg/dL or ionized magnesium level 0.45 to 0.5 mmol/L, Starting on Tue05/09/24 at 1841, Use premix solution. Default to ionized magnesium level in cases where patient has both magnesium and ionized magnesium results. If administered, check ionized magnesium (or total magnesium if ionized magnesium unavailable) level 4 hours after infusion. Or magnesium sulfate IVPB 4000 mg/100 mL in iso-osmotic water (40 mg/mL premix)Jump to med 4,000 mg, intravenous, at 25 mL/hr, Administer over 240 Minutes, As needed, for magnesium level 1.6 mg/mL or less, or ionized magnesium level 0.44 mmol/L or less, Starting on Tue05/09/24 at 1841, Use premix solution. Default to ionized magnesium level in cases where patient has both magnesium and ionized magnesium results. If administered, check ionized magnesium (or total magnesium if ionized magnesium unavailable) level 4 hours after infusion. Group 4: oxyCODONE (ROXICODONE) immediate release tablet 5 mgJump to med 5 mg, oral, Every 4 hours PRN, moderate pain - pain scale 4-6, Starting on Tue05/11/24 at 1142, Look-alike/sound-alike medication - verify indication for use. Immediate release. Or oxyCODONE (ROXICODONE) immediate release tablet 10 mgJump to med 10 mg, oral, Every 4 hours PRN, severe pain - pain scale 7-10, Starting on Tue05/11/24 at 1142, Look-alike/sound-alike medication - verify indication for use. Immediate release. Group 5: potassium chloride (K-TAB,KLOR-CON) CR tablet 20-50 mEqJump to med 20-50 mEq, oral, As needed, for potassium replacement, Starting on Tue05/09/24 at 1841, Progress to oral potassium replacement when patient tolerating oral intake. If dose administered, recheck potassium level 4 hours after last dose. For potassium level 3.4 to 3.8 mmol/L and Serum Creatinine 1.2 or less=30 mEq. For potassium level 3.1 to 3.3 mmol/L and Serum Creatinine 1.2 or less=40 mEq. For potassium level 3 mmol/L or less and Serum Creatinine 1.2 or less=50 mEq. For potassium level 3.4 to 3.8 mmol/L and Serum Creatinine greater than 1.2=20 mEq. For potassium level 3.1 to 3.3 mmol/L and Serum Creatinine greater than 1.2=30 mEq. For potassium level 3 mmol/L or less and Serum Creatinine greater than 1.2=40 mEq. Do not crush or chew. Or potassium chloride (KAYCIEL) 20 mEq/15 mL solution 20-50 mEqJump to med 20-50 mEq, oral, As needed, potassium replacement, Starting on Tue05/09/24 at 1841, Progress to oral potassium replacement when patient tolerating oral intake. If dose administered, recheck potassium level 4 hours after last dose. For potassium level 3.4 to 3.8 mmol/L and Serum Creatinine 1.2 or less=30 mEq (22.5mL). For potassium level 3.1 to 3.3 mmol/L and Serum Creatinine 1.2 or less=40 mEq (30mL). For potassium level 3 mmol/L or less and Serum Creatinine 1.2 or less=50 mEq (37.5mL). For potassium level 3.4 to 3.8 mmol/L and Serum Creatinine greater than 1.2=20 mEq (15mL). For potassium level 3.1 to 3.3 mmol/L and Serum Creatinine greater than 1.2=30 mEq (22.5mL). For potassium level 3 mmol/L or less and Serum Creatinine greater than 1.2=40 mEq (30mL). Must dilute before use - Mix in 3-8 ounces of water or juice before administration When administering in feeding tube, flush before and after per policy and monitor potassium levels Group 6: potassium chloride IVPB 10 mEq/50 mL in water (0.2 mEq/mL premix)Jump to med 10 mEq, intravenous, at 50 mL/hr, Administer over 1 Hours, As needed, for potassium replacement, Starting on Tue05/09/24 at 1841, Administer Potassium Chloride IVPB in 10 mEq increments. Maximum infusion rates: Central Line = 20 mEq/hour. Administer via Central Line Only. If dose administered, recheck potassium level 1 hour after infusion complete. For potassium level 3.4 to 3.8 mmol/L and Serum Creatinine 1.2 or less = 30 mEq For potassium level 3.1 to 3.3 mmol/L and Serum Creatinine 1.2 or less = 40 mEq For potassium level 3 mmol/L or less and Serum Creatinine 1.2 or less = 50 mEq For potassium level 3.4 to 3.8 mmol/L and Serum Creatinine greater than 1.2 = 20 mEq For potassium level 3.1 to 3.3 mmol/L and Serum Creatinine greater than 1.2 = 30 mEq For potassium level 3 mmol/L or less and Serum Creatinine greater than 1.2 = 40 mEq VESICANT (YELLOW) Or potassium chloride IVPB 10 mEq/100 mL in water (0.1 mEq/mL premix)Jump to med 10 mEq, intravenous, at 100 mL/hr, Administer over 60 Minutes, As needed, for potassium replacement, Starting on Tue05/09/24 at 1841, Administer Potassium Chloride IVPB in 10 mEq increments. Maximum infusion rates: Central Line = 20 mEq/hour; Peripheral Line = 10 mEq/hour (10 mEq/100 mL). If dose administered, recheck potassium level 1 hour after infusion complete. For potassium level 3.4 to 3.8 mmol/L and Serum Creatinine 1.2 or less = 30 mEq For potassium level 3.1 to 3.3 mmol/L and Serum Creatinine 1.2 or less = 40 mEq For potassium level 3 mmol/L or less and Serum Creatinine 1.2 or less = 50 mEq For potassium level 3.4 to 3.8 mmol/L and Serum Creatinine greater than 1.2 = 20 mEq For potassium level 3.1 to 3.3 mmol/L and Serum Creatinine greater than 1.2 = 30 mEq For potassium level 3 mmol/L or less and Serum Creatinine greater than 1.2 = 40 mEq VESICANT (YELLOW) Infuse each 10 mEq over a minimum of 1 hour. Group 7: sodium phosphate 20 mmol in sodium chloride 0.9 % 250 mL IVPBJump to med 20 mmol, intravenous, at 42.8 mL/hr, Administer over 6 Hours, As needed, for phosphorous level 2.3 mg/dL or less, Starting on Tue05/09/24 at 1841, Administer over 6 hours via dedicated line (peripheral line). If administered, recheck phosphorus level 4 hours after infusion complete. Or sodium phosphate 20 mmol in sodium chloride 0.9 % 100 mL IVPBJump to med 20 mmol, intravenous, at 26.7 mL/hr, Administer over 4 Hours, As needed, for phosphorous level 2.3 mg/dL or less, Starting on Tue05/09/24 at 1841, Administer over 4 hours via dedicated line(central line). If administered, recheck phosphorus level 4 hours after infusion complete. Infuse using central line access. Or sod phos di, mono-K phos mono (K-PHOS NEUTRAL) 250 mg tablet 2 tabletJump to med 2 tablet, oral, As needed, for phosphorous level 2.3 mg/dL or less, Starting on Tue05/09/24 at 1841, If dose administered, recheck phosphorus level 4 hours after last dose. Look-alike/sound-alike medication - verify indication for use. Give with a full glass of water. Dialysis Access Sites (unrec ognized section and content) Type Status Location Placement Date Removal Da te Hemodialysis Fistula/Graft Left Upper arm Active Left Upper Arm - Anterior Hemodialysis Catheter Double 07/27/23 Cuffed Right Internal Jugular Active Right Neck (side) - Anterior 07/27/2023 Hemodialysis Catheter Triple 07/23/23 Uncuffed Right Internal Jugular Inactive Right Neck (side) - Anterior 07/23/2023 07/27/2023 FOR RECORDS PERTAINING TO PATIENTS WHO ARE [...] BE BASED ON THE PRIMARY CLINICAL RECORDS. [facility] provides no warranty or guarantee of the accuracy or completeness of information in this document.
== END 2024-10-16 08:08 | disposition home or self-care (01) ==
LOC: MRI 08:08
PROVIDERS: PCP Family Medicine; Visit Provider Family Medicine
DX: R22.32 Localized swelling, mass and lump, left upper limb (principal)
CPT/HCPCS: 73090

== ENCOUNTER 2025-04-04 08:45 | Outpatient (OUT) | payer MEDICARE, OTHER, SELFPAY ==
--- OUTSIDE RECORDS SUMMARY | 2025-04-04 09:00 | XMS_ITS | CCD ---
Author Organization [facility]ini[facility] Care Team Providers Care Merchandise Stocker Name Role Phone ROLDAN ., DR RICHARDSON Admitting Unavailable HOY ., DR RICHARDSON Attending Unavailable HOY ., DR RICHARDSON Primary Care Unavailable HOY ., DR RICHARDSON Consulting Unavailable ZIEBER, DR ZEV Cerda Consulting Unavailable HOY ., DR RICHADRSON Admitting Unavailable HOY ., DR RICHARDSON Attending Unavailable HOY ., DR RICHARDSON Primary Care Unavailable HOY ., DR RICHARDSON Consulting Unavailable GUSTAVO GONZALEZ Consulting Unavailable HOY ., DR RICHARDSON Admitting Unavailable HOY ., DR RICHARDSON Attending Unavailable HOY ., DR RICHARDSON Primary Care Unavailable HOY ., DR RICHARDSON Consulting Unavailable Dylan Montilla Primary Care Physician Dylan Montilla Referring Unavailable Serjio GAVIRIA Attending Unavailable Ga FRANK Attending Unavailable Roldan Dylan Referring Unavailable Ga FRANK Attending Unavailable Dylan Montilla Referring Unavailable Unavailable Primary Care Provider UnavailDylan Cosby MD Primary Care Provider ZAC LOMBARDI Attending Unavailable ZAC LOMBARDI Referring Unavailable ROLDAN DYLAN M Primary Care Unavailable Dylan Montilla MD Primary Care Provider [phone] Dylan Montilla MD Primary Care Provider UnavailDylan Lawrence MD Primary Care Provider [phone] Dylan Montilla MD Primary Care Provider [phone] MCKINLEY WINKLER Attending Unavailable KISHAY, DYLAN M Referring Unavailable HOY, DYLAN M Primary Care Unavailable MCKINLEY WINKLER Attending Unavailable DYLAN MONTILLA Referring Unavailable DYLAN MONTILLA Primary Care Unavailable SHAZIA ARNOLD Attending Unavailable SHAZIA ARNOLD Attending Unavailable SHAZIA ARNOLD Attending Unavailable Dylan Montilla MD Primary Care Provider [phone] HOY, DYLAN M Primary Care Unavailable ANJU PIPER Attending Unavailable ANJU PIPER Attending Unavailable ANJU PIPER Referring Unavailable HOY, DYLAN M Primary Care Unavailable HOY, DYLAN M Referring Unavailable HOY, DYLAN M Primary Care Unavailable STANLEY GILLETTE N Attending Unavailable LILY, AMANDA C Referring Unavailable HOY, DYLAN M Primary Care Unavailable KEVIN ROSARIO Referring Unavailable HOY, DYLAN M Primary Care Unavailable NAIN, STANLEY N Attending Unavailable NAIN, ANGEL N Referring Unavailable HOY, DYLAN M Primary Care Unavailable ANILMARY M Attending Unavailable MARY TELLES M Referring Unavailable HOY, DYLAN M Primary Care Unavailable MARY TELLES M Referring Unavailable HOY, DYLAN M Primary Care Unavailable NAIN, STANLEY N Attending Unavailable NAIN, STANLEY N Referring Unavailable HOY, DYLAN M Primary Care Unavailable HOY, DYLAN M Referring Unavailable HOY, DYLAN M Primary Care Unavailable NAIN, ANGEL N Referring Unavailable HOY, DYLAN M Primary Care Unavailable STANLEY GILLETTE N Attending Unavailable LILY, AMANDA C Referring Unavailable HOY, DYLAN M Primary Care Unavailable MCKINLEY WINKLER Referring Unavailable HOY, DYLAN M Primary Care Unavailable ZAC LOMBARDI Attending Unavailable ZAC LOMBARDI T Referring Unavailable HOY, DYLAN M Primary Care Unavailable NAIN, ANGEL N Referring Unavailable HOY, DYLAN M Primary Care Unavailable STANLEY GILLETTE N Attending Unavailable LILY, AMANDA C Referring Unavailable HOY, DYLAN M Primary Care Unavailable HOY, DYLAN M Referring Unavailable HOY, DYLAN M Primary Care Unavailable ZAC LOMBARDI T Attending Unavailable HOY, DYLAN M Referring Unavailable HOY, DYLAN M Primary Care Unavailable CHINMAY REEDERSER Admitting Unavailable POLLY REEDER Attending Unavailable HOY, DYLAN M Primary Care Unavailable ALLY AYERS Attending Unavailable HOY, DYLAN M Primary Care Unavailable HAELIZABETHRCHINMAYSER Attending Unavailable HAJAR, NASSER Referring Unavailable HOY, DYLAN M Primary Care Unavailable JEFFREY MCFADDEN Attending Unavailable ANIL MARY M Referring Unavailable HOY, DYLAN M Primary Care Unavailable ZAC LOMBARDI T Attending Unavailable HOY, DYLAN M Referring Unavailable HOY, DYLAN M Primary Care Unavailable LESA, JEFFREY A Referring Unavailable HOY, DYLAN M Primary Care Unavailable LESA, JEFFREY A Admitting Unavailable LESA, JEFFREY A Attending Unavailable HOY, DYLAN M Primary Care Unavailable BERNARDO MAN Consulting Unavailable WILLARD DE LA PAZ Consulting Unavailable [facility]ARDIOLOGY, [facility] Consulting Unavailable AMANDA RANDALL Attending Unavailable HOY, DYLAN M Referring Unavailable HOY, DYLAN M Primary Care Unavailable MCYUNG HENRY Attending Unavailable HOY, DYLAN M Referring Unavailable HOY, DYLAN M Primary Care Unavailable ABBAS, JIHAD T Admitting Unavailable ABBAS, JIHAD T Attending Unavailable HOY, DYLAN M Primary Care Unavailable MCYUNG HENRY Attending Unavailable HOY, DYLAN M Referring Unavailable HOY, DYLAN M Primary Care Unavailable ABBAS, JIHAD T Admitting Unavailable ABBAS, JIHAD T Attending Unavailable HOY, DYLAN M Primary Care Unavailable ABBAS, JIHAD T Attending Unavailable HOY, DYLAN M Referring Unavailable HOY, DYLAN M Primary Care Unavailable MCYUNG HENRY Attending Unavailable HOY, DYLAN M Referring Unavailable HOY, DYLAN M Primary Care Unavailable ABBAS, JIHAD T Admitting Unavailable ABBAS, JIHAD T Attending Unavailable HOY, DYLAN M Primary Care Unavailable ABBAS, JIHAD T Referring Unavailable HOY, DYLAN M Primary Care Unavailable ABBAS, JIHAD T Admitting Unavailable ABBAS, JIHAD T Attending Unavailable HOY, DYLAN M Primary Care Unavailable WILLARD DE LA PAZ Consulting Unavailable ABBAS, JIHAD T Attending Unavailable HOY, DYLAN M Referring Unavailable HOY, DYLAN M Primary Care Unavailable DEMOND COLINDRES Attending Unavailable HOY, DYLAN M Referring Unavailable [...] Medication Allergies] Propensity to adverse reactions (disorder) [facility] Medications Current Medications Medication Drug [...] 0 Start Date: 12/15/23 Status: Ordered amylase 450215 unt / lipase 56190 unt / protease [id number] unt delayed release oral capsule (20 sources) Start: 06-26-2024 End: 07-05-2024 jqaiwg-dvvpihhn-kxlo ase (CREON) 36,000-114,000- 180,000 unit capsule,delayed release(DR/EC) Indications: Exocrine pancreatic insufficiency 2 capsules with Breakfast and Dinner and 1 with snacks 200 capsule 11 07/05/2024 Active Start: 03-06-2024 End: 04-25-2024 qnmqby-rhgeaiul-twvrzbs (CRE ON) 36,000-114,000- 180,000 unit capsule,delayed release(DR/EC) Indications: Exocrine pancreatic insufficiency Take 1 capsule (36,000 units of lipase total) by mouth in the morning and 1 capsule (36,000 units of lipase total) at noon and 1 capsule (36,000 units of lipase total) in the evening. Take with meals. 90 capsule 6 03/06/2024 04/25/2024 Discontinued (Therapy completed) aspirin 81 mg delayed release oral tablet (6 sources) Platelet Aggregation Inhibitor, Nonsteroidal Anti-inflammatory Drug Start: 12-27-2024 take 1 tablet by mouth in the morning aspirin 81 mg Take 1 tablet (81 mg total) by mouth in the morning. 30 tablet 3 12/27/2024 Active atorvastatin 40 mg oral tablet (20 sources) [...] sources) Loop Diuretic Start: 12-26-2023 End: 05-17-2024 clopidogrel 75 mg oral tablet (7 sources) P2Y12 Platelet Inhibitor Start: 12-27-2024 take 1 tablet by mouth in the morning clopidogreL (PLAVIX) 75 mg tablet Indications: Critical limb ischemia of both lower extremities (CMS-HCC) , Claudication Take 1 tablet (75 mg total) by mouth in the morning. 180 tablet 2 03/21/2025 Active fluorouracil 50 mg/ml topical cream (12 sources) Nucleoside Metabolic Inhibitor Start: 10-30-2024 End: 12-18-2024 fluorouracil (Efudex) 5 % cream Indications: Actinic keratosis Apply to directed areas on the forehead, cheeks, and temples temples twice a day x 14 days. Dispense 30 day supply but only use for 14 days. 40 g 10/30/2024 Active glimepiride 2 mg oral tablet (20 sources) [...] thyroid hormone levels. Active loperamide hydrochloride 2 m g oral tablet (18 sources) Opioid Agonist loperamide (IMOD IUM A-D) 2 mg tablet Take 1 tablet (2 mg total) by mouth as needed in the morning and 1 tablet (2 mg total) as needed at noon and 1 tablet (2 mg total) as needed in the evening and 1 tablet (2 mg total) as needed before bedtime for diarrhea. Active take 1 tablet by federico th four times daily as needed for diarrhea loperamide (IMODIUM A-D) 2 mg tablet Donovan e 1 tablet (2 mg total) by mouth 4 (four) times a day as needed for diarrhea. Active losartan potassium 25 mg oral tablet (20 sources) Angiotensin 2 Receptor Erika End: 01-02-2024 take 2 tablets by mouth in the morning losartan (Cozaar) 25 MG tablet Take 50 mg by mouth in the morning. Active take 1 tablet by federico th once daily in the morning losartan (COZAAR) 25 mg tablet Indicatio ns: hypertension Take 1 tablet (25 mg total) by mouth in the morning. Indications: high blood pressure. 1x per day. Active midodrine hydrochloride 10 mg oral tablet [...] (Discontinued by another clinician) polyethylene glycol 3350 401089 mg / potassium chloride 1480 mg / sodium bicarbonate 5720 mg / sodium chloride 19484 mg powder for oral solution (2 sources) Osmotic Laxative Start: 02-29-2024 End: 02-29-2024 take 420 g by mouth once polyethylene glycol-electrolytes (NULYTELY) 420 gram solution Take 4,000 mL by mouth once for 1 dose. Take as instructed 4000 mL 02/29/2024 02/29/2024 Active simvastatin 40 mg oral tablet (13 sources) HMG-CoA Reductase Inhibitor simvastatin (Zocor) 40 [...] Sig (Original) amLODIPine 10 mg oral tablet (20 sources) Dihydropyridine Calcium Channel Erika Start: 02-13-2024 End: 04-25-2024 take 1 tablet by mouth in the morning amLODIPine (NORVASC) 10 mg tablet Take 1 tablet (10 mg total) by mouth in the morning. 02/13/2024 04/25/2024 Discontinued (Therapy completed) aprepitant 40 mg oral capsule (1 source) Substance P/Neurokinin-1 Receptor Antagonist Start: 05-09-2024 End: 05-09-2024 carvedilol 12.5 mg oral tablet (20 sources) alpha-Adrenergic Erika, beta-Adrenergic Erika Start: 05-10-2024 End: 05-10-2024 Start: 05-23-2024 docusate sodium 100 mg oral capsule (5 [...] Own) Start: 05-17-2024 Start: 05-17-2024 Start: 05-13-2024 famotidine 20 mg oral tablet (15 sources) Histamine-2 Receptor Antagonist Start: 05-22-2024 End: [...] for 180 days. 180 tablet 1 05/30/2024 11/13/2024 Discontinued (Therapy completed) Start: 05-09-2024 End: 05-14-2024 metFORMIN hydrochloride 500 mg oral tablet (20 sources) Biguanide Start: 07-11-2023 End: 10-25-2024 metFORMIN (GLUCOPHAGE) 500 mg tablet Indications: prevention of type 2 diabetes mellitus Take 1 tablet (500 mg total) by mouth as needed (patient states he only occasionally takes this) Indications: prevention of type 2 diabetes mellitus. 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; Translations: [End-stage renal disease] Onset: 12-30-2023 12-26-2023 Chronic Coronary atherosclerosis and other heart disease (6 sources) Coronary arteriosclerosis; Translations: [Coronary atherosclerosis] Onset: 11-13-2024 12-15-2023 Chronic Deficiency and other anemia (1 source) Anemia 12-26-2023 Episodic Diabetes mellitus without complication (1 source) Diabetes mellitus 12-15-2023 Chronic Disorders of lipid metabolism (20 sources) Hypercholesterolemia; Translations: [Mixed hyperlipidemia] Onset: 02-23-2018 12-15-2023 Chronic Essential hypertension (20 sources) Essential hypertension; Translations: [Essential (primary) hypertension] Onset: 02-23-2018 12-15-2023 Chronic Leukemias (20 sources) Chronic lymphoid leukemia, disease; Translations: [Chronic lymphocytic leukemia of B-cell type not having achieved remission] Onset: 05-25-2024 05-25-2024 Chronic Neoplasms of unspecified nature or uncertain behavior (20 sources) Neoplastic disease; Translations: [Neoplasm of unspecified behavior of bone, soft tissue, and skin] Onset: 04-11-2024 04-30-2024 Episodic Non-Hodgkin`s lymphoma (9 sources) B-cell lymphoma of intra-abdominal lymph nodes; Translations: [Unspecified B-cell lymphoma, intra-abdominal lymph nodes] Onset: 05-22-2024 05-22-2024 Chronic Other aftercare (2 sources) Postoperative visit; Translations: [Encounter for other specified surgical aftercare] 05-30-2024 Episodic Other and unspecified benign neoplasm (4 sources) Melanocytic nevus of trunk; Translations: [Melanocytic nevi of trunk] 04-30-2024 Episodic Other circulatory disease (1 source) Arteriovenous fistula; Translations: [Arteriovenous fistula, acquired] 04-02-2024 Chronic Other circulatory disease (1 source) Arteriovenous fistula, acquired; Translations: [Arteriovenous fistula, acquired] Onset: 04-02-2024 Chronic Other circulatory disease (2 sources) Spider nevus; Translations: [Nevus, non-neoplastic] 10-30-2024 Episodic Other circulatory disease (1 source) Critical lower limb ischemia 03-21-2025 Episodic Other diseases of kidney and ureters (20 sources) Renal mass; Translations: [Other specified disorders of kidney and ureter] Onset: 07-21-2023 07-21-2023 Chronic Other ear and sense organ disorders (1 source) Hearing loss 12-15-2023 Chronic Other inflammatory condition of skin (2 sources) Transient acantholytic dermatosis; Translations: [Transient acantholytic dermatosis [[place]]] 12-19-2024 Episodic Other male genital disorders (1 source) Impotence 12-15-2023 Chronic Other nervous system disorders (1 source) Claudication Onset: 01-23-2025 Episodic Other non-epithelial cancer of skin (6 sources) History of malignant neoplasm of skin; Translations: [Personal history of other malignant neoplasm of skin] 04-30-2024 Episodic Other skin disorders (4 sources) Lentiginosis; Translations: [Other melanin hyperpigmentation] 04-30-2024 Episodic Other skin disorders (4 sources) Seborrheic keratosis; Translations: [Other seborrheic keratosis] 04-30-2024 Episodic Other skin disorders (6 sources) Actinic keratosis; Translations: [Actinic keratosis] 04-30-2024 Episodic Other skin disorders (2 sources) Inflamed seborrheic keratosis; Translations: [Inflamed seborrheic keratosis] 04-02-2025 Episodic Pancreatic disorders (not diabetes) (1 source) Chronic pancreatitis; Translations: [Other chronic pancreatitis] 02-29-2024 Chronic Stefany-; endo-; and myocarditis; cardiomyopathy (except that caused by tuberculosis or sexually transmitted disease) (20 sources) Hypertrophic cardiomyopathy; Translations: [Other hypertrophic cardiomyopathy] Onset: 01-02-2024 01-02-2024 Chronic Peripheral and visceral atherosclerosis (20 sources) Peripheral vascular disease, unspecified; Translations: [Peripheral vascular disease, unspecified] Onset: 01-02-2024 01-02-2024 Chronic Phlebitis; thrombophlebitis and thromboembolism (1 source) H/O: thromboembolism 12-15-2023 Episodic Residual codes; unclassified (1 source) Tobacco user; Translations: [Tobacco use] Onset: 12-26-2023 Episodic Screening and history of mental health and substance abuse codes (1 source) Tobacco use and exposure - finding 12-26-2023 Chronic Substance-related disorders (20 sources) Nicotine dependence; Translations: [Nicotine dependence, unspecified, uncomplicated] Onset: 02-23-2018 12-15-2023 Chronic Unclassified (2 sources) Patient encounter status 12-26-2023 Unclassified (2 sources) PAD (peripheral artery disease) ([facility]) 08-22-2024 Unclassified (3 sources) Infrarenal abdominal aortic aneurysm, without rupture; Translations: [Infrarenal abdominal aortic aneurysm, without rupture] Onset: 02-23-2018 Unclassified (1 source) New Patient Onset: 11-13-2024 Unclassified (1 source) Vascular Access Problem Onset: 04-07-2024 Unclassified (1 source) Ill Onset: 04-07-2024 Unclassified (1 source) Post-op Onset: 05-22-2024 Unclassified (1 source) Pancreatic duct dilated Onset: 04-04-2024 Past or Other Problems Problem Classification Problem Date Documented Date Episodic/Chronic Diabetes mellitus without complication (2 sources) Hyperglycemia; Translations: [Hyperglycemia, unspecified] Onset: 04-25-2024 04-25-2024 Episodic Fluid and electrolyte disorders (1 source) Hyperkalemia; Translations: [Hyperkalemia] Onset: 05-09-2024 Episodic Mood disorders (20 sources) Mood disorders Onset: 07-21-2023 Resolved: 12-26-2024 07-21-2023 Nonspecific chest pain (20 sources) Chest discomfort; Translations: [Other chest pain] Onset: 01-02-2024 01-02-2024 Episodic Other and unspecified benign neoplasm (3 sources) Benign neoplasm of pancreas 05-22-2024 Episodic Other nervous system disorders (1 source) Acute postoperative pain; Translations: [Other acute postprocedural pain] 05-17-2024 Episodic Other nervous system disorders (1 source) Other acute postprocedural pain; Translations: [Other acute postprocedural pain] Onset: 05-09-2024 Episodic Other screening for suspected conditions (not mental disorders or infectious disease) (20 sources) Abnormal findings on diagnostic imaging of other abdominal regions, including retroperitoneum; Translations: [Screening for malignant neoplasm of colon done] Onset: 11-30-2022 Episodic Other skin disorders (1 source) Localized swelling, mass and lump, left upper limb; Translations: [Localized swelling, mass and lump, left upper limb] Onset: 11-01-2024 Episodic Pancreatic disorders (not diabetes) (20 sources) Idiopathic acute pancreatitis; Translations: [Idiopathic acute pancreatitis without necrosis or infection] Onset: 02-23-2018 12-15-2023 Episodic Superficial injury; contusion (1 source) Contusion of left upper arm, initial encounter; Translations: [Contusion of left upper arm, initial encounter] Onset: 04-07-2024 Episodic Results Test Name Value Interpretation Reference Range Facility No Panel Informationon 04-02 [employer] Type of biopsy: villarreal ential Informed consent: [...] Dressing type: bandage Additional details: Photo taken yes Amount of lidocaine used: 0.5 cc [employer] Type of biopsy: villarreal ential Informed consent: [...] Dressing type: bandage Additional details: Photo taken yes Amount of lidocaine used: 0.5 cc [employer] CBC WITH AUTO DIFFERENTIALon 03-13-2025 BASOPHILS ABSOLUTE COUNT (10*3/UL) BY AUTOMATED COUNT 0.1 10*3/uL Normal 0.0-0.2 [facility] Comment on above: Order Comment: Abnor mal CBC with auto diff reflexes to a manual diff Performed By: #### C BCA #### [facility] ([facility]) [address] [place] [address] VIR BASOPHILS RELATIVE PERCENT BY AUTOMATED COUNT 0.8 % Normal [facility] Comment on above: Order Comment: Abnor mal CBC with auto diff reflexes to a manual diff Performed By: #### C BCA #### [facility] ([facility]) [address] [place] [address] VIR CELLAVISION DIFFERENTIAL TYPE AUTOMATED DIFFERENTIAL Normal [facility] Comment on above: Order Comment: Abnor mal CBC with auto diff reflexes to a manual diff Performed By: #### C BCA #### [facility] ([facility]) [address] [place] [address] VIR Eosinophils (Bld) [#/Vol] 0.4 10*3/uL Normal 0.0-0.4 [facility] Comment on above: Order Comment: Abnor mal CBC with auto diff reflexes to a manual diff Performed By: #### C BCA #### [facility] ([facility]) [address] [place] [address] VIR EOSINOPHILS RELATIVE PERCENT BY AUTOMATED COUNT 4.8 % Normal [facility] Comment on above: Order Comment: Abnor mal CBC with auto diff reflexes to a manual diff Performed By: #### C BCA #### [facility] ([facility]) [address] [place] [address] VIR Erythrocyte distribution width (RBC) [Ratio] 12.9 % Normal 11.5-15 [facility] Comment on above: Order Comment: Abnor mal CBC with auto diff reflexes to a manual diff Performed By: #### C BCA #### [facility] ([facility]) [address] [place] [address] VIR Hematocrit (Bld) [Volume fraction] 32.9 % Low 39-50 [facility] Comment on above: Order Comment: Abnor mal CBC with auto diff reflexes to a manual diff Performed By: #### C BCA #### [facility] ([facility]) [address] [place] [address] VIR Hemoglobin (Bld) [Mass/Vol] 11.4 g/dL Low 13-17 [facility] Comment on above: Order Comment: Abnor mal CBC with auto diff reflexes to a manual diff Performed By: #### C BCA #### [facility] ([facility]) [address] [place] [address] VIR LYMPHOCYTES ABSOLUTE COUNT (10*3/UL) BY AUTOMATED COUNT 2.8 10*3/uL Normal 1.0-3.5 [facility] Comment on above: Order Comment: Abnor mal CBC with auto diff reflexes to a manual diff Performed By: #### C BCA #### [facility] ([facility]) [address] [place] [address] VIR LYMPHOCYTES RELATIVE PERCENT BY AUTOMATED COUNT 33.1 % Normal [facility] Comment on above: Order Comment: Abnor mal CBC with auto diff reflexes to a manual diff Performed By: #### C BCA #### [facility] ([facility]) [address] [place] [address] VIR MCH (RBC) [Entitic mass] 31.9 pg Normal 27-34 [facility] Comment on above: Order Comment: Abnor mal CBC with auto diff reflexes to a manual diff Performed By: #### C BCA #### [facility] ([facility]) [address] [place] [address] VIR MCHC (RBC) [Mass/Vol] 34.6 g/dL Normal 32-36 [facility] Comment on above: Order Comment: Abnor mal CBC with auto diff reflexes to a manual diff Performed By: #### C BCA #### [facility] ([facility]) [address] [place] [address] VIR MCV (RBC) [Entitic vol] 92 fL Normal 80-100 [facility] Comment on above: Order Comment: Abnor mal CBC with auto diff reflexes to a manual diff Performed By: #### C BCA #### [facility] ([facility]) [address] [place] [address] VIR MONOCYTES ABSOLUTE COUNT (10*3/UL) BY AUTOMATED COUNT 0.4 10*3/uL Normal 0.0-0.9 [facility] Comment on above: Order Comment: Abnor mal CBC with auto diff reflexes to a manual diff Performed By: #### C BCA #### [facility] ([facility]) [address] [place] [address] VIR MONOCYTES RELATIVE PERCENT BY AUTOMATED COUNT 5.1 % Normal [facility] Comment on above: Order Comment: Abnor mal CBC with auto diff reflexes to a manual diff Performed By: #### C BCA #### [facility] ([facility]) [address] [place] [address] VIR NEUTROPHILS ABSOLUTE COUNT BY AUTOMATED COUNT 4.7 10*3/uL Normal 1.5-6.6 [facility] Comment on above: Order Comment: Abnor mal CBC with auto diff reflexes to a manual diff Performed By: #### C BCA #### [facility] ([facility]) [address] [place] [address] VIR NEUTROPHILS RELATIVE PERCENT BY AUTOMATED COUNT 56.2 % Normal [facility] Comment on above: Order Comment: Abnor mal CBC with auto diff reflexes to a manual diff Performed By: #### C BCA #### [facility] ([facility]) [address] [place] [address] VIR Platelet mean volume (Bld) [Entitic vol] 7.9 fL Normal 7-12 [facility] Comment on above: Order Comment: Abnor mal CBC with auto diff reflexes to a manual diff Performed By: #### C BCA #### [facility] ([facility]) [address] [place] [address] VIR Platelets (Bld) [#/Vol] 190 10*3/uL Normal 150-450 [facility] Comment on above: Order Comment: Abnor mal CBC with auto diff reflexes to a manual diff Performed By: #### C BCA #### [facility] ([facility]) [address] [place] [address] VIR RBC COUNT 3.57 X10E12/L Low 4.1-5.7 [facility] Comment on above: Order Comment: Abnor mal CBC with auto diff reflexes to a manual diff Performed By: #### C BCA #### [facility] ([facility]) [address] [place] [address] VIR WBC (Bld) [#/Vol] 8.4 10*3/uL Normal 4-11 [facility] Comment on above: Order Comment: Abnor mal CBC with auto diff reflexes to a manual diff Performed By: #### C BCA #### [facility] ([facility]) [address] [place] [address] VIR COMPREHENSIVE METABOLIC PANE Cecilio 03-13-2025 Albumin [Mass/Vol] 4.0 g/dL Normal 3.2-5.3 [facility] Comment on above: Performed By: #### L LPH #### [facility] ([id number]) [address] [place] [address] ALP [Catalytic activity/Vol] 147 U/L High 39-130 [facility] Comment on above: Performed By: #### L LPH #### [facility] ([id number]) [address] [place] [address] ALT [Catalytic activity/Vol] 33 U/L Normal <=40 [facility] Comment on above: Performed By: #### L LPH #### [facility] ([id number]) [address] [place] [address] Anion gap [Moles/Vol] 12 mmol/L Normal 5-15 [facility] Comment on above: Performed By: #### L LPH #### [facility] ([id number]) [address] [place] [address] AST [Catalytic activity/Vol] 24 U/L Normal <=41 [facility] Comment on above: Performed By: #### L LPH #### [facility] ([id number]) [address] [place] [address] Bilirubin [Mass/Vol] 0.5 mg/dL Normal 0.3-1.2 [facility] Comment on above: Performed By: #### L LPH #### [facility] ([id number]) [address] [place] [address] Calcium [Mass/Vol] 8.8 mg/dL Normal 8.5-10.5 [facility] Comment on above: Performed By: #### L LPH #### [facility] ([id number]) [address] [place] [address] Chloride [Moles/Vol] 98 mmol/L Normal 98-109 [facility] Comment on above: Performed By: #### L LPH #### [facility] ([id number]) [address] [place] [address] CO2 [Moles/Vol] 30 mmol/L Normal 22-32 [facility] Comment on above: Performed By: #### L LPH #### [facility] ([id number]) [address] [place] [address] Creatinine [Mass/Vol] 3.35 mg/dL High 0.60-1.30 [facility] Comment on above: Result Comment: METH OD TRACEABLE TO IDMS STANDARD Performed By: #### L LPH #### [facility] ([id number]) [address] [place] [address] GFR/1.73 sq M.predicted among non-blacks MDRD (S/P/Bld) [Vol rate/Area] 19 mL/min/{1.73_m2} Low >=60 [facility] Comment on above: Result Comment: Repo rted eGFR is based on the CKD-EPI 2020 equation that does not use a race coefficient. Performed By: #### L LPH #### [facility] ([id number]) [address] [place] [address] Glucose [Mass/Vol] 181 mg/dL High 65-99 [facility] Comment on above: Performed By: #### L LP #### [facility] ([id number]) [address] [place] [address] Potassium [Moles/Vol] 3.6 mmol/L Normal 3.5-5.0 [facility] Comment on above: Performed By: #### L LPH #### [facility] ([id number]) [address] [place] [address] Protein [Mass/Vol] 6.2 g/dL Normal 6.0-8.0 [facility] Comment on above: Performed By: #### L LPH #### [facility] ([id number]) [address] [place] [address] Sodium [Moles/Vol] 140 mmol/L Normal 134-146 [facility] Comment on above: Performed By: #### L LPH #### [facility] ([id number]) [address] [place] [address] Urea nitrogen [Mass/Vol] 40 mg/dL High 5-27 [facility] Comment on above: Performed By: #### L LPH #### [facility] ([id number]) [address] [place] [address] BASIC METABOLIC PANELon 06-0 -2024 Anion gap [Moles/Vol] 9 mmol/L Normal 5-15 [facility] Comment on above: Performed By: #### B MP ####[facility] ([facility])[address], [place] [address] VIR Calcium [Mass/Vol] 8.0 mg/dL Low 8.5-10.5 [facility] Comment on above: Performed By: #### B MP ####[facility] ([facility])[address], [place] [address] VIR Chloride [Moles/Vol] 106 mmol/L Normal 98-109 [facility] Comment on above: Performed By: #### B MP ####[facility] ([facility])[address], [place] [address] VIR CO2 [Moles/Vol] 22 mmol/L Normal 22-32 [facility] Comment on above: Performed By: #### B MP ####[facility] ([facility])[address], [place] [address] VIR Creatinine [Mass/Vol] 3.19 mg/dL High 0.60-1.30 [facility] Comment on above: Result Comment: METH OD TRACEABLE TO IDMS STANDARD Performed By: #### B MP ####[facility] ([facility])[address], [place] [address] VIR GFR/1.73 sq M.predicted among non-blacks MDRD (S/P/Bld) [Vol rate/Area] 21 mL/min/{1.73_m2} Low >=60 [facility] Comment on above: Result Comment: Repo rted eGFR is based on the CKD-EPI 2020 equation that does not use a race coefficient. Performed By: #### B MP ####[facility] ([facility])[address], [place] [address] VIR Glucose [Mass/Vol] 475 mg/dL Critically high 65-99 [facility] Comment on above: Performed By: #### B MP ####[facility] ([facility])[address], [place] [address] VIR Potassium [Moles/Vol] 5.0 mmol/L Normal 3.5-5.0 [facility] Comment on above: Performed By: #### B MP ####[facility] ([facility])[address], [place] [address] VIR Sodium [Moles/Vol] 137 mmol/L Normal 134-146 [facility] Comment on above: Performed By: #### B MP ####[facility] ([facility])[address], [place] [address] VIR Urea nitrogen [Mass/Vol] 48 mg/dL High 5-27 [facility] Comment on above: Performed By: #### B MP ####[facility] ([facility])[address], [place] [address] VIR CBC WITH AUTO DIFFERENTIALon 12-27-2024 BASOPHILS ABSOLUTE COUNT (10*3/UL) BY AUTOMATED COUNT 0.0 10*3/uL Normal 0.0-0.2 [facility] Comment on above: Performed By: #### C BCA ####[facility] ([facility])[address], [place] [address] VIR BASOPHILS RELATIVE PERCENT BY AUTOMATED COUNT 0.2 % Normal [facility] Comment on above: Performed By: #### C BCA ####[facility] ([facility])[address], [place] [address] VIR CELLAVISION DIFFERENTIAL TYPE AUTOMATED DIFFERENTIAL Normal [facility] Comment on above: Performed By: #### C BCA ####[facility] ([facility])[address], [place] [address] VIR Eosinophils (Bld) [#/Vol] 0.0 10*3/uL Normal 0.0-0.4 [facility] Comment on above: Performed By: #### C BCA ####[facility] ([facility])[address], [place] [address] VIR EOSINOPHILS RELATIVE PERCENT BY AUTOMATED COUNT 0.0 % Normal [facility] Comment on above: Performed By: #### C BCA ####[facility] ([facility])[address], [place] [address] VIR Erythrocyte distribution width (RBC) [Ratio] 13.1 % Normal 11.5-15 [facility] Comment on above: Performed By: #### C BCA ####[facility] ([facility])[address], [place] [address] VIR Hematocrit (Bld) [Volume fraction] 28.8 % Low 39-50 [facility] Comment on above: Performed By: #### C BCA ####[facility] ([facility])[address], [place] [address] VIR Hemoglobin (Bld) [Mass/Vol] 9.9 g/dL Low 13-17 [facility] Comment on above: Performed By: #### C BCA ####[facility] ([facility])[address], [place] [address] VIR LYMPHOCYTES ABSOLUTE COUNT (10*3/UL) BY AUTOMATED COUNT 1.6 10*3/uL Normal 1.0-3.5 [facility] Comment on above: Performed By: #### C BCA ####[facility] ([facility])[address], [place] [address] VIR LYMPHOCYTES RELATIVE PERCENT BY AUTOMATED COUNT 14.5 % Normal [facility] Comment on above: Performed By: #### C BCA ####[facility] ([facility])[address], [place] [address] VIR MCH (RBC) [Entitic mass] 32.5 pg Normal 27-34 [facility] Comment on above: Performed By: #### C BCA ####[facility] ([facility])[address], [place] [address] VIR MCHC (RBC) [Mass/Vol] 34.5 g/dL Normal 32-36 [facility] Comment on above: Performed By: #### C BCA ####[facility] ([facility])[address], [place] [address] VIR MCV (RBC) [Entitic vol] 94 fL Normal 80-100 [facility] Comment on above: Performed By: #### C BCA ####[facility] ([facility])[address], [place] [address] VIR MONOCYTES ABSOLUTE COUNT (10*3/UL) BY AUTOMATED COUNT 0.4 10*3/uL Normal 0.0-0.9 [facility] Comment on above: Performed By: #### C BCA ####[facility] ([facility])[address], [place] [address] VIR MONOCYTES RELATIVE PERCENT BY AUTOMATED COUNT 3.8 % Normal [facility] Comment on above: Performed By: #### C BCA ####[facility] ([facility])[address], [place] [address] VIR NEUTROPHILS ABSOLUTE COUNT BY AUTOMATED COUNT 8.7 10*3/uL High 1.5-6.6 [facility] Comment on above: Performed By: #### C BCA ####[facility] ([facility])[address], [place] [address] VIR NEUTROPHILS RELATIVE PERCENT BY AUTOMATED COUNT 81.5 % Normal [facility] Comment on above: Performed By: #### C BCA ####[facility] ([facility])[address], [place] [address] VIR Platelet mean volume (Bld) [Entitic vol] 8.0 fL Normal 7-12 [facility] Comment on above: Performed By: #### C BCA ####[facility] ([facility])[address], [place] [address] VIR Platelets (Bld) [#/Vol] 152 10*3/uL Normal 150-450 [facility] Comment on above: Performed By: #### C BCA ####[facility] ([facility])[address], [place] [address] VIR RBC COUNT 3.06 X10E12/L Low 4.1-5.7 [facility] Comment on above: Performed By: #### C BCA ####[facility] ([facility])[address], [place] [address] VIR WBC (Bld) [#/Vol] 10.7 10*3/uL Normal 4-11 [facility] Comment on above: Performed By: #### C BCA ####[facility] ([facility])[address], [place] [address] VIR APTTon - aPTT Coag (Bld) [Time] 36 s Normal 26-37 [facility] Comment on above: Performed By: #### P TT ####[facility] ([facility])[address], [place] [address] VIR aPTT Coag (Bld) [Time] 35 s Normal 26-37 [facility] Comment on above: Performed By: #### P TT ####[facility] ([facility])[address], [place] [address] VIR BASIC METABOLIC PANELon 06-0 Anion gap [Moles/Vol] 6 mmol/L Normal 5-15 [facility] Comment on above: Performed By: #### B MP ####[facility] ([facility])[address], [place] [address] VIR Calcium [Mass/Vol] 8.1 mg/dL Low 8.5-10.5 [facility] Comment on above: Performed By: #### B MP ####[facility] ([facility])[address], [place] [address] VIR Chloride [Moles/Vol] 109 mmol/L Normal 98-109 [facility] Comment on above: Performed By: #### B MP ####[facility] ([facility])[address], [place] [address] VIR CO2 [Moles/Vol] 22 mmol/L Normal 22-32 [facility] Comment on above: Performed By: #### B MP ####[facility] ([facility])[address], [place] [address] VIR Creatinine [Mass/Vol] 3.02 mg/dL High 0.60-1.30 [facility] Comment on above: Result Comment: METH OD TRACEABLE TO IDMS STANDARD Performed By: #### B MP ####[facility] ([facility])[address], [place] [address] VIR GFR/1.73 sq M.predicted among non-blacks MDRD (S/P/Bld) [Vol rate/Area] 22 mL/min/{1.73_m2} Low >=60 [facility] Comment on above: Result Comment: Repo rted eGFR is based on the CKD-EPI 2020 equation that does not use a race coefficient. Performed By: #### B MP ####[facility] ([facility])[address], [place] [address] VIR Glucose [Mass/Vol] 186 mg/dL High 65-99 [facility] Comment on above: Performed By: #### B MP ####[facility] ([facility])[address], [place] [address] VIR Potassium [Moles/Vol] 4.8 mmol/L Normal 3.5-5.0 [facility] Comment on above: Performed By: #### B MP ####[facility] ([facility])[address], [place] [address] VIR Sodium [Moles/Vol] 137 mmol/L Normal 134-146 [facility] Comment on above: Performed By: #### B MP ####[facility] ([facility])[address], [place] [address] VIR Urea nitrogen [Mass/Vol] 39 mg/dL High 5-27 [facility] Comment on above: Performed By: #### B MP ####[facility] ([facility])[address], [place] [address] VIR BEDSIDE GLUCOSEon 12-26-2024 Glucose [Mass/Vol] 187 mg/dL High 65-99 [facility] Comment on above: Performed By: #### B EDG ####[facility] ([facility])[address] [place] [address] VIR CBC WITH AUTO DIFFERENTIALon 12-26-2024 BASOPHILS ABSOLUTE COUNT (10*3/UL) BY AUTOMATED COUNT 0.0 10*3/uL Normal 0.0-0.2 [facility] Comment on above: Performed By: #### C BCA ####[facility] ([facility])[address], [place] [address] VIR BASOPHILS RELATIVE PERCENT BY AUTOMATED COUNT 0.4 % [facility] Comment on above: Performed By: #### C BCA ####[facility] ([facility])[address], [place] [address] VIR CELLAVISION DIFFERENTIAL TYPE AUTOMATED DIFFERENTIAL Normal [facility] Comment on above: Performed By: #### C BCA ####[facility] ([facility])[address], [place] [address] VIR Eosinophils (Bld) [#/Vol] 0.1 10*3/uL Normal 0.0-0.4 [facility] Comment on above: Performed By: #### C BCA ####[facility] ([facility])[address], [place] [address] VIR EOSINOPHILS RELATIVE PERCENT BY AUTOMATED COUNT 0.6 % Normal [facility] Comment on above: Performed By: #### C BCA ####[facility] ([facility])[address], [place] [address] VIR Erythrocyte distribution width (RBC) [Ratio] 13.4 % Normal 11.5-15 [facility] Comment on above: Performed By: #### C BCA ####[facility] ([facility])[address], [place] [address] VIR Hematocrit (Bld) [Volume fraction] 30.1 % Low 39-50 [facility] Comment on above: Performed By: #### C BCA ####[facility] ([facility])[address], [place] [address] VIR Hemoglobin (Bld) [Mass/Vol] 10.4 g/dL Low 13-17 [facility] Comment on above: Performed By: #### C BCA ####[facility] ([facility])[address], [place] [address] VIR LYMPHOCYTES ABSOLUTE COUNT (10*3/UL) BY AUTOMATED COUNT 1.9 10*3/uL Normal 1.0-3.5 [facility] Comment on above: Performed By: #### C BCA ####[facility] ([facility])[address], [place] [address] VIR LYMPHOCYTES RELATIVE PERCENT BY AUTOMATED COUNT 21.7 % Normal [facility] Comment on above: Performed By: #### C BCA ####[facility] ([facility])[address], [place] [address] VIR MCH (RBC) [Entitic mass] 31.9 pg Normal 27-34 [facility] Comment on above: Performed By: #### C BCA ####[facility] ([facility])[address], [place] [address] VIR MCHC (RBC) [Mass/Vol] 34.7 g/dL Normal 32-36 [facility] Comment on above: Performed By: #### C BCA ####[facility] ([facility])[address], [place] [address] VIR MCV (RBC) [Entitic vol] 92 fL Normal 80-100 [facility] Comment on above: Performed By: #### C BCA ####[facility] ([facility])[address], [place] [address] VIR MONOCYTES ABSOLUTE COUNT (10*3/UL) BY AUTOMATED COUNT 0.1 10*3/uL Normal 0.0-0.9 [facility] Comment on above: Performed By: #### C BCA ####[facility] ([facility])[address], [place] [address] VIR MONOCYTES RELATIVE PERCENT BY AUTOMATED COUNT 1.1 % Normal [facility] Comment on above: Performed By: #### C BCA ####[facility] ([facility])[address], [place] [address] VIR NEUTROPHILS ABSOLUTE COUNT BY AUTOMATED COUNT 6.7 10*3/uL High 1.5-6.6 [facility] Comment on above: Performed By: #### C BCA ####[facility] ([facility])[address], [place] [address] VIR NEUTROPHILS RELATIVE PERCENT BY AUTOMATED COUNT 76.2 % Normal [facility] Comment on above: Performed By: #### C BCA ####[facility] ([facility])[address], [place] [address] VIR Platelet mean volume (Bld) [Entitic vol] 7.4 fL Normal 7-12 [facility] Comment on above: Performed By: #### C BCA ####[facility] ([facility])[address], [place] [address] VIR Platelets (Bld) [#/Vol] 135 10*3/uL Low 150-450 [facility] Comment on above: Performed By: #### C BCA ####[facility] ([facility])[address], [place] [address] VIR RBC COUNT 3.27 X10E12/L Low 4.1-5.7 [facility] Comment on above: Performed By: #### C BCA ####[facility] ([facility])[address] [facility] [address], [place] [address] VIR WBC (Bld) [#/Vol] 8.7 10*3/uL Normal 4-11 [facility] Comment on above: Performed By: #### C BCA ####[facility] ([facility])[address] [facility] [address], [place] [address] VIR IONIZED MAGNESIUMon 12-27-19 25 Magnesium [Moles/Vol] 0.44 mmol/L Low 0.45-0.74 [facility] Comment on above: Performed By: #### I MAG ####[facility] ([facility])[address] [address] VIR POCT POTASSIUM, GLUCOSEon Glucose [Mass/Vol] 156 mg/dL High 65-99 [facility] Comment on above: Performed By: #### I KG ####[facility] ([facility])[address] [place] [address] VIR Potassium [Moles/Vol] 4.4 mmol/L Normal 3.5-5.0 [facility] Comment on above: Performed By: #### I KG ####[facility] ([facility])[address] [place] [address] VIR PORTABLE PROTIMEon PORTABLE INR 1.2 Normal 0.9-1.2 [facility] Comment on above: Performed By: #### I PRO ####[facility] ([facility])[address] [place] [address] VIR PROTIME AND INRon 12-26-2024 INR 1.0 Normal 0.9-1.2 [facility] Comment on above: Performed By: #### P INR ####[facility] ([facility])[address] [facility] [address], [place] [address] VIR PT Coag (PPP) [Time] 11.7 s Normal 9.8-13.2 [facility] Comment on above: Performed By: #### P INR ####[facility] ([facility])[address] 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 Site was marked. Photo was taken and shown to patient, patient verified this is the correct site. Lesion destroyed using liquid nitrogen: Yes Region frozen until ice ball extended beyond lesion: Yes Cryotherapy cycles: 2 Lesion length (cm): 0.5 Lesion width (cm): 0.3 Margin per side (cm): 0 Final wound size (cm): 0.5 Outcome: patient tolerated procedure well with no complications Post-procedure details: wound care instructions given Post-procedure details comment: Post-cryotherapy instructions were given verbally and in writing. The office will be contacted if the lesion fails to resolve despite treatment, or if a side effect develops such as abnormal crusting, scabbing, reddness, discharge, or tenderness. Additional details: Previous accession number: [id number] [facility] e CBC AND AUTO DIFFon 11-14-19 25 ABSOLUTE BASOPHIL 0.2 X10E9/L Normal 0.0-0.2 [facility] Comment on above: Performed By: #### C BCA, CMP #### [facility] ([id number]) [address] [address] Basophils/100 WBC (Bld) 2.0 % Normal [facility] Comment on above: Performed By: #### C BCA, CMP #### [facility] ([id number]) [address] [address] [place] [address] Eosinophils (Bld) [#/Vol] 0.3 10*3/uL Normal 0.0-0.4 [facility] Comment on above: Performed By: #### C DOUGLAS, CMP #### [facility] [facility] ([id number]) [address], [facility] [address] [place] [address] Eosinophils/100 WBC (Bld) 4.0 % Normal [facility] Comment on above: Performed By: #### C DOUGLAS, CMP #### [facility] ([id number]) [address] [facility] [address] [place] [address] Erythrocyte distribution width (RBC) [Ratio] 14.0 % Normal 11.5-15.0 [facility] Comment on above: Performed By: #### C DOUGLAS, CMP #### [facility] ([id number]) [address], [facility] [address] [place] [address] Hematocrit (Bld) [Volume fraction] 37.0 % Low 39-49 [facility] Comment on above: Performed By: #### C DOUGLAS, CMP #### [facility] ([id number]) [address], [facility] [address] [place] [address] Hemoglobin (Bld) [Mass/Vol] 12.5 g/dL Low 13.0-17.0 [facility] Comment on above: Performed By: #### C DOUGLAS, CMP #### [facility] ([id number]) [address], [facility] [address] [place] [address] Lymphocytes (Bld) [#/Vol] 3.0 10*3/uL Normal 1.0-3.5 [facility] Comment on above: Performed By: #### C DOUGLAS, CMP #### [facility] ([id number]) [address] [address] [place] [address] Lymphocytes/100 WBC (Bld) 35.0 % Normal [facility] Comment on above: Performed By: #### C DOUGLAS, CMP #### [facility] ([id number]) [address], [address] [place] [address] MCH (RBC) [Entitic mass] 31.4 pg Normal 27-34 [facility] Comment on above: Performed By: #### C DOUGLAS, CMP #### [facility] ([id number]) [address], [address] [place] [address] MCHC (RBC) [Mass/Vol] 33.7 g/dL Normal 32-36 [facility] Comment on above: Performed By: #### C DOUGLAS, CMP #### [facility] ([id number]) [address], [address] [place] [address] MCV (RBC) [Entitic vol] 93 fL Normal 80-100 [facility] Comment on above: Performed By: #### Kathleen COLE, CMP #### [facility] ([id number]) [address] [place] [address] Monocytes (Bld) [#/Vol] 0.2 10*3/uL Normal 0-0.9 [facility] Comment on above: Performed By: #### Kathleen COLE, CMP #### [facility] ([id number]) [address], [address] [place] [address] Monocytes/100 WBC (Bld) 2.0 % Normal [facility] Comment on above: Performed By: #### Kathleen COLE, CMP #### [facility] ([id number]) [address], [address] [place] [address] Neutrophils (Bld) [#/Vol] 4.8 10*3/uL Normal 1.5-6.6 [facility] Comment on above: Performed By: #### Kathleen COLE, CMP #### [facility] ([id number]) [address], [address] [place] [address] OVALOCYTE 1+ Abnormal NONE [facility] Comment on above: Performed By: #### C BCA, CMP #### [facility] ([id number]) [address], [address] [place] [address] Platelet mean volume (Bld) [Entitic vol] 8.8 fL Normal 7-12 [facility] Comment on above: Performed By: #### C BCA, CMP #### [facility] ([id number]) [address], [address] [place] [address] Platelets (Bld) [#/Vol] 155 10*3/uL Normal 150-450 [facility] Comment on above: Performed By: #### C BCA, CMP #### [facility] ([id number]) [address] [place] [address] RBC COUNT 3.98 X10E12/L Low 4.10-5.70 [facility] Comment on above: Performed By: #### C BCA, CMP #### [facility] ([id number]) [address], [address] [place] [address] SEG NEUTROPHIL 57.0 % Normal [facility] Comment on above: Performed By: #### C BCA, CMP #### [facility] ([id number]) [address] [address] [place] [address] WBC (Bld) [#/Vol] 8.5 10*3/uL Normal 4.0-11.0 [facility] Comment on above: Performed By: #### C BCA, CMP #### [facility] ([id number]) [address], [address] [place] [address] COMPREHENSIVE METABOLIC PANE Cecilio 11-13-2024 Albumin [Mass/Vol] 4.0 g/dL Normal 3.2-5.3 [facility] Comment on above: Performed By: #### C BCA, CMP #### [facility] ([id number]) [address], [address] [place] [address] ALP [Catalytic activity/Vol] 144 U/L High 39-130 [facility] Comment on above: Performed By: #### C BCA, CMP #### [facility] ([id number]) [address], [address] [place] [address] ALT [Catalytic activity/Vol] 64 U/L High 0-40 [facility] Comment on above: Performed By: #### C BCA, CMP #### [facility] ([id number]) [address], [address] [place] [address] Anion gap [Moles/Vol] 12 mmol/L Normal 5-15 [facility] Comment on above: Performed By: #### C BCA, CMP #### [facility] ([id number]) [address], [address] [place] [address] AST [Catalytic activity/Vol] 37 U/L Normal 0-41 [facility] Comment on above: Performed By: #### C BCA, CMP #### [facility] ([id number]) [address], [address] [place] [address] Bilirubin [Mass/Vol] 0.5 mg/dL Normal 0.3-1.2 [facility] Comment on above: Performed By: #### C BCA, CMP #### [facility] ([id number]) [address], [address] [place] [address] Calcium [Mass/Vol] 8.9 mg/dL Normal 8.5-10.5 [facility] Comment on above: Performed By: #### C BCA, CMP #### [facility] ([id number]) [address], [address] [place] [address] Chloride [Moles/Vol] 104 mmol/L Normal 98-109 [facility] Comment on above: Performed By: #### C BCA, CMP #### [facility] ([id number]) [address], [address] [place] [address] CO2 [Moles/Vol] 27 mmol/L Normal 22-32 [facility] Comment on above: Performed By: #### C BCA, CMP #### [facility] ([id number]) [address], [address] [place] [address] Creatinine [Mass/Vol] 2.59 mg/dL High 0.60-1.30 [facility] Comment on above: Result Comment: METH OD TRACEABLE TO IDMS STANDARD Performed By: #### C BCA, CMP #### [facility] ([id number]) [address], [address] [place] [address] GFR/1.73 sq M.predicted among non-blacks MDRD (S/P/Bld) [Vol rate/Area] 26 mL/min/{1.73_m2} Low >59 [facility] Comment on above: Result Comment: Reported eGFR is based on the CKD-EPI 2020 equation that does not use a race coefficient. Performed By: #### C BCA, CMP #### [facility] ([id number]) [address], [address] [place] [address] Glucose [Mass/Vol] 156 mg/dL High 65-99 [facility] Comment on above: Performed By: #### C BCA, CMP #### [facility] ([id number]) [address], [address] [place] [address] Potassium [Moles/Vol] 4.5 mmol/L Normal 3.5-5.0 [facility] Comment on above: Performed By: #### C BCA, CMP #### [facility] ([id number]) [address], [address] [place] [address] Protein [Mass/Vol] 6.1 g/dL Normal 6.0-8.0 [facility] Comment on above: Performed By: #### C BCA, CMP #### [facility] ([id number]) [address] [place] [address] Sodium [Moles/Vol] 143 mmol/L Normal 134-146 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 [facility] [place] Final Diagnosis NEVUS LIPOMATOSUS SUPERFICIALIS. [facility] ICD10 Code D04.4 [facility] e ICD10 Code D23.70 [facility] DIRAmed Specimen type Nom (Spec) SPECIMEN: LEFT LATERAL NECK [facility] Specimen type Nom (Spec) SPECIMEN: LEFT THIGH- ANTERIOR NOM [facility] SingleFeed e MR FOREARM LT W WO CONTon MR FOREARM LT W WO CONT MR FOREARM LT W WO CONT MR FOREARM LT W WO CONT CLINICAL INFORMATION: 69 years old Male with knot on the left forearm x2 months. 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 COMPARISON: CT left humerus 04/07/2024 TECHNIQUE: Multiplanar, multisequence MR imaging of the left forearm was performed. Exam was performed without and with IV contrast. CONTRAST: 12.8 mL ProHance FINDINGS: Osseous: No acute fracture or malalignment. No suspicious osseous lesions or periosteal reactions. Normal bone marrow appearance for patient's age. Joints: Visualized joints are adequate anatomic alignment. Moderate degenerative change throughout the wrist joint with small simple bone cyst or intraosseous ganglion formation within the anterior aspect of the lunate. Mild degenerative change of the elbow joint. Muscles/tendons: Visualized muscles and tendons are intact without discrete tear or tendinopathy. Soft tissues: There is a 2.1 x 1.0 x 2.1 cm thin-walled mildly T1 hyperintense, T2 hyperintense collection with peripheral postcontrast enhancement within the posterior medial soft tissues of the mid forearm which abuts and causes mild mass effect upon the extensor carpi ulnaris muscle body (series 4 image 18 and series 8 image 9). Small amount of soft tissue edema within the subcutaneous soft tissues adjacent to the aforementioned cystic lesion. IMPRESSION: * There is a 2.1 x 1.0 x 2.1 cm thin walled cystic lesion within the subcutaneous soft tissues which abuts and causes mild mass effect upon the extensor carpi ulnaris muscle body. Adjacent subcutaneous edema. This is most likely a subacute or chronic hematoma. An abscess is not excluded. No evidence for a mass. * Moderate degenerative change of the wrist joint and mild degenerative change of the elbow joint. Approved by Resident Sushil Blount DO on 11/02/2024 8:35 AM IAdriano MD have personally reviewed the image(s) and agree with and/or edited the report Finalized by Adriano Cameron MD on 11/02/2024 10:31 AM Normal [facility] No Panel Informationon 11-02 Gross Text [facility] Microscopic Description Microscopic examination performed. [facility] PROTOCOL F - FLAT [facility] No Panel Informationon 10-30 Type of biopsy: villarreal ential Informed consent: [...] details: Photo taken Amount of lidocaine used: 0.5 cc [facility] Type of biopsy: villarreal ential Informed consent: [...] details: Photo taken Amount of lidocaine used: 1.0cc [facility] Creatinine (Bld) [Mass/Vol]o n 10-25-2024 Creatinine [Mass/Vol] 3.2 mg/dL High 0.7-1.2 [facility] Comment on above: Performed By: #### 2 339-0, 6299-2, 05916-8 ####[facility] ([id number])[address] [place] [address] GFR/1.73 sq M.predicted among non-blacks MDRD (S/P/Bld) [Vol rate/Area] 20 mL/min/{1.73_m2} Low >59 [facility] Comment on above: Result Comment: Reported eGFR is based on the CKD-EPI 2020 equation that does not use a race coefficient. Performed By: #### 2 339-0, 6299-2, 82472-8 ####[facility] ([id number])[address] [place] [address] Glucose (Bld) [Mass/Vol]on 0 10-25-2024 Glucose [Mass/Vol] 148 mg/dL High 65-99 [facility] Comment on above: Performed By: #### 2 339-0, 6299-2, 89722-7 ####[facility] ([id number])[address] [place] [address] Urea nitrogen (Bld) [Mass/Vo l]on 10-25-2024 Urea nitrogen [Mass/Vol] 26 mg/dL Normal 6-27 [facility] Comment on above: Performed By: #### 2 339-0, 6299-2, 39945-1 ####[facility] ([id number])[address] [place] [address] 10-16-2024 36 TC called patient to discuss committee decision 10/15/24 that he is NOT a candidate for kidney transplant due recent history of multiple types of cancer over the last 2-3 years, peripheral vascular disease/vascular concerns, history of Whipple in the fall of 2023 and currently smoking. Patient stated understanding. [facility] 10-12-2024 36 TC spoke to patient on the phone and patient confirmed that he is currently smoking. Patient advised that if he quits smoking he may be re-referred, but due to some concerns in his medical history TC will have his case reviewed at committee Tuesday to determine if he is a candidate before re-referral. Patients stated understanding. Patient TE scheduled for 10/16/24. [facility] CT ABDOMEN W CONTon 08-16-19 CT ABDOMEN [...] Pathak MD on 08/16/2024 1:46 PM Normal [facility] CT CHEST W CONTon 08-16-2024 CT CHEST [...] Ford MD on 08/16/2024 1:13 PM Normal [facility] Glucose Glucometer (BldC) [M ass/Vol]on 08-14-2024 Glucose [Mass/Vol] 103 mg/dL High 65-99 [facility] POTASSIUMon 08-14-2024 Potassium [Moles/Vol] 4.7 mmol/L Normal 3.5-5.0 [facility] Comment on above: Performed By: #### 2 823-3 ####[facility] ([id number])[address], [place] [address] CREATININEon 08-13-2024 Creatinine [Mass/Vol] 1.57 mg/dL High 0.60-1.30 [facility] Comment on above: Result Comment: METH OD TRACEABLE TO IDMS STANDARD Performed By: #### C RT #### [facility] ([id number]) [address], [address] [place] [address] GFR/1.73 sq M.predicted among non-blacks MDRD (S/P/Bld) [Vol rate/Area] 48 mL/min/{1.73_m2} Low >59 [facility] Comment on above: Result Comment: Reported eGFR is based on the CKD-EPI 2020 equation that does not use a race coefficient. Performed By: #### C RT #### [facility] ([id number]) [address], [address] [place] [address] HEMOGLOBINon 07-24-2024 Hemoglobin (Bld) [Mass/Vol] 11.4 g/dL Low 13.0-17.0 [facility] Comment on above: Performed By: #### 7 18-7 #### [facility] ([id number]) [address] [place] [address], [place] [address] FLOW CYTOMETRYon 05-23-2024 FLOW CYTOMETRY SEE SEPARATE REPORT, REVIEWED BY PATHOLOGIST Normal [facility] Comment on above: Performed By: #### L [facility] #### [facility] ([id number]) [address], [address] [place] [address] CBC AND AUTO DIFFon 05-17-20 ABSOLUTE BASOPHIL 0.1 X10E9/L Normal 0.0-0.2 [facility] Comment on above: Performed By: #### 1 9123-9, CBCA, CMP, 2777-1 ####[facility] ([id number])[address] [place] [address] ABSOLUTE NEUTROPHIL 5.6 X10E9/L Normal 1.5-6.6 [facility] Comment on above: Performed By: #### 1 9123-9, CBCA, CMP, 2777-1 ####[facility] ([id number])[address] [address] [place] [address] Basophils/100 WBC (Bld) 0.8 % Normal [facility] Comment on above: Performed By: #### 1 9123-9, CBCA, CMP, 2777-1 ####[facility] ([id number])[address] [address] [place] [address] Eosinophils (Bld) [#/Vol] 0.7 10*3/uL High 0.0-0.4 [facility] Comment on above: Performed By: #### 1 9123-9, CBCA, CMP, 2777-1 ####[facility] ([id number])[address] [address], [place] [address] Eosinophils/100 WBC (Bld) 6.2 % Normal [facility] Comment on above: Performed By: #### 1 9123-9, CBCA, CMP, 2776- ####[facility] ([id number])[address] [address] [place] [address] Erythrocyte distribution width (RBC) [Ratio] 13.3 % Normal 11.5-15.0 [facility] Comment on above: Performed By: #### 1 9122-9, CBCA, CMP, 2776- ####[facility] ([id number])[address] [address], [place] [address] Hematocrit (Bld) [Volume fraction] 31.1 % Low 39-49 [facility] Comment on above: Performed By: #### 1 9123-9, CBCA, CMP, 2776- ####[facility] ([id number])[address] [address], [place] [address] Hemoglobin (Bld) [Mass/Vol] 11.1 g/dL Low 13.0-17.0 [facility] Comment on above: Performed By: #### 1 9123-9, CBCA, CMP, 2776- ####[facility] ([id number])[address] [address] [place] [address] Lymphocytes (Bld) [#/Vol] 3.6 10*3/uL High 1.0-3.5 [facility] Comment on above: Performed By: #### 1 9123-9, CBCA, CMP, 2776- ####[facility] ([id number])[address] [address] [place] [address] Lymphocytes/100 WBC (Bld) 34.0 % Normal [facility] Comment on above: Performed By: #### 1 9123-9, CBCA, CMP, 2776- ####[facility] ([id number])[address] [address] [place] [address] MCH (RBC) [Entitic mass] 33.0 pg Normal 27-34 [facility] Comment on above: Performed By: #### 1 9123-9, CBCA, CMP, 2776- ####[facility] ([id number])[address], [address] [place] [address] MCHC (RBC) [Mass/Vol] 35.8 g/dL Normal 32-36 [facility] Comment on above: Performed By: #### 1 9122-9, CBCA, CMP, 2776- ####[facility] ([id number])[address] [address] MCV (RBC) [Entitic vol] 92 fL Normal 80-100 [facility] Comment on above: Performed By: #### 1 9123-9, CBCA, CMP, 2776- ####[facility] ([id number])[address] [address] [place] [address] Monocytes (Bld) [#/Vol] 0.7 10*3/uL Normal 0-0.9 [facility] Comment on above: Performed By: #### 1 9123-9, CBCA, CMP, 2776- ####[facility] ([id number])[address] [address] Monocytes/100 WBC (Bld) 6.6 % Normal [facility] Comment on above: Performed By: #### 1 9123-9, CBCA, CMP, 2776- ####[facility] ([id number])[address] [address] Neutrophils/100 WBC (Bld) 52.4 % Normal [facility] Comment on above: Performed By: #### 1 9123-9, CBCA, CMP, 2776- ####[facility] ([id number])[address] [address] Platelet mean volume (Bld) [Entitic vol] 6.6 fL Low 7-12 [facility] Comment on above: Performed By: #### 1 9123-9, CBCA, CMP, 2777-1 ####[facility] ([id number])[address] [address] Platelets (Bld) [#/Vol] 305 10*3/uL Normal 150-450 [facility] Comment on above: Performed By: #### 1 9123-9, CBCA, CMP, 2777-1 ####[facility] ([id number])[address] [address] RBC COUNT 3.38 X10E12/L Low 4.10-5.70 [facility] Comment on above: Performed By: #### 1 9123-9, CBCA, CMP, 2777-1 ####[facility] ([id number])[address] [address] WBC (Bld) [#/Vol] 10.7 10*3/uL Normal 4.0-11.0 [facility] Comment on above: Performed By: #### 1 9123-9, CBCA, CMP, 2777-1 ####[facility] ([id number])[address] [address] CBC auto differentialon - Basophils (Bld) [#/Vol] 0.1 10*3/uL [facility] Basophils/100 WBC (Bld) 0.8 % [facility] Eosinophils (Bld) [#/Vol] 0.7 10*3/uL High [facility] Eosinophils/100 WBC (Bld) 6.2 % [facility] Erythrocyte distribution width (RBC) [Ratio] 13.3 % 11.5 - 15.0 % [facility] Hematocrit (Bld) [Volume fraction] 31.1 % Low 39 - 49 % [facility] Hemoglobin (Bld) [Mass/Vol] 11.1 g/dL Low 13.0 - 17.0 g/dL [facility] Interpretation and review of laboratory results Abnormal [facility] Lymphocytes (Bld) [#/Vol] 3.6 10*3/uL High [facility] Lymphocytes/100 WBC (Bld) 34 % [facility] MCH (RBC) [Entitic mass] 33 pg 27 - 34 pg [facility] MCHC (RBC) [Mass/Vol] 35.8 g/dL 32 - 36 g/dL [facility] MCV (RBC) [Entitic vol] 92 fL 80 - 100 fL [facility] Monocytes (Bld) [#/Vol] 0.7 10*3/uL [facility] Monocytes/100 WBC (Bld) 6.6 % [facility] Neutrophils (Bld) [#/Vol] 5.6 10*3/uL [facility] Neutrophils/100 WBC (Bld) 52.4 % [facility] Platelet mean volume (Bld) [Entitic vol] 6.6 fL Low 7 - 12 fL [facility] Platelets (Bld) [#/Vol] 305 10*3/uL [facility] RBC (Bld) [#/Vol] 3.38 10*6/uL Low [facility] WBC corrected for nucl RBC Auto (Bld) [#/Vol] 10.7 [facility] COMPREHENSIVE METABOLIC PANE Cecilio 05-17-2024 Albumin [Mass/Vol] 3.7 g/dL Normal 3.2-5.3 [facility] Comment on above: Performed By: #### 1 9123-9, CBCA, CMP, 2777-1 ####[facility] ([id number])[address] [place] [address] ALP [Catalytic activity/Vol] 91 U/L Normal 39-130 [facility] Comment on above: Performed By: #### 1 9123-9, CBCA, CMP, 2777-1 ####[facility] ([id number])[address], [place] [address] ALT [Catalytic activity/Vol] 24 U/L Normal 0-40 [facility] Comment on above: Performed By: #### 1 9123-9, CBCA, CMP, 2777-1 ####[facility] ([id number])[address], [place] [address] Anion gap [Moles/Vol] 15 mmol/L Normal 5-15 [facility] Comment on above: Performed By: #### 1 9123-9, CBCA, CMP, 277-1 ####[facility] ([id number])[address], [place] [address] AST [Catalytic activity/Vol] 16 U/L Normal 0-41 [facility] Comment on above: Performed By: #### 1 9123-9, CBCA, CMP, 277-1 ####[facility] ([id number])[address], [place] [address] Bilirubin [Mass/Vol] 0.5 mg/dL Normal 0.3-1.2 [facility] Comment on above: Performed By: #### 1 9123-9, CBCA, CMP, 277-1 ####[facility] ([id number])[address], [place] [address] Calcium [Mass/Vol] 8.5 mg/dL Normal 8.5-10.5 [facility] Comment on above: Performed By: #### 1 9123-9, CBCA, CMP, 2777-1 ####[facility] ([id number])[address], [address], [place] [address] Chloride [Moles/Vol] 99 mmol/L Normal 98-109 [facility] Comment on above: Performed By: #### 1 9123-9, CBCA, CMP, 2777-1 ####[facility] ([id number])[address] [address], [place] [address] CO2 [Moles/Vol] 21 mmol/L Low 22-32 [facility] Comment on above: Performed By: #### 1 9123-9, CBCA, CMP, 277-1 ####[facility] ([id number])[address], [address], [place] [address] Creatinine [Mass/Vol] 4.01 mg/dL High 0.60-1.30 [facility] Comment on above: Result Comment: METH OD TRACEABLE TO IDMS STANDARD Performed By: #### 1 9123-9, ARTEMIO, RAFAEL, 277-1 ####[facility] ([id number])[address] [address], [place] [address] GFR/1.73 sq M.predicted among non-blacks MDRD (S/P/Bld) [Vol rate/Area] 16 mL/min/{1.73_m2} Low >59 [facility] Comment on above: Result Comment: Reported eGFR is based on the CKD-EPI 2020 equation that does not use a race coefficient. Performed By: #### 1 9123-9, CBCPratibha, CMP, 277-1 ####[facility] ([id number])[address] [address], [place] [address] Glucose [Mass/Vol] 135 mg/dL High 65-99 [facility] Comment on above: Performed By: #### 1 9123-9, CBCA, CMP, 277-1 ####[facility] ([id number])[address] [address], [place] [address] Potassium [Moles/Vol] 4.0 mmol/L Normal 3.5-5.0 [facility] Comment on above: Performed By: #### 1 9123-9, CBCA, CMP, 2777-1 ####[facility] ([id number])[address] [address], [place] [address] Protein [Mass/Vol] 6.4 g/dL Normal 6.0-8.0 [facility] Comment on above: Performed By: #### 1 9123-9, CBCA, CMP, 2777-1 ####[facility] ([id number])[address], [address] [place] [address] Sodium [Moles/Vol] 135 mmol/L Normal 134-146 [facility] Comment on above: Performed By: #### 1 9123-9, CBCA, CMP, 2777-1 ####[facility] ([id number])[address], [address] [place] [address] Urea nitrogen [Mass/Vol] 54 mg/dL High 5-27 [facility] Comment on above: Performed By: #### 1 9123-9, CBCA, CMP, 2777-1 ####[facility] ([id number])[address], [address] [place] [address] Comprehensive metabolic pane cecilio 05-17-2024 Albumin [Mass/Vol] 3.7 g/dL 3.2 - 5.3 g/dL [facility] ALP [Catalytic activity/Vol] 91 U/L 39 - 130 U/L [facility] ALT No additional P-5'-P [Catalytic activity/Vol] 24 U/L 0 - 40 U/L [facility] Anion gap [Moles/Vol] 15 mmol/L 5 - 15 mmol/L [facility] AST [Catalytic activity/Vol] 16 U/L 0 - 41 U/L [facility] Bilirubin [Mass/Vol] 0.5 mg/dL 0.3 - 1.2 mg/dL [facility] Calcium [Mass/Vol] 8.5 mg/dL 8.5 - 10. 5 mg/dL [facility] Chloride [Moles/Vol] 99 mmol/L 98 - 109 mmol/L [facility] CO2 [Moles/Vol] 21 mmol/L Low 22 - 32 mmol/L [facility] Creatinine [Mass/Vol] 4.01 mg/dL High 0.60 - 1.30 mg/dL [facility] eGFR (CKD-EPI)non-race dependent 16 Low - PINF [facility] Glucose [Mass/Vol] 135 mg/dL High 65 - 99 mg/dL [facility] Potassium [Moles/Vol] 4 mmol/L 3.5 - 5.0 mmol/L [facility] Protein [Mass/Vol] 6.4 g/dL 6.0 - 8.0 g/dL [facility] Sodium [Moles/Vol] 135 mmol/L 134 - 146 mmol/L [facility] Urea nitrogen [Mass/Vol] 54 mg/dL High 5 - 27 mg/dL [facility] Glucose Glucometer (BldC) [M ass/Vol]on 05-17-2024 Glucose [Mass/Vol] 152 mg/dL High 65 - 99 mg/dL [facility] Interpretation and review of laboratory results Abnormal [facility] Glucose [Mass/Vol] 152 mg/dL High 65-99 [facility] Glucose [Mass/Vol] 94 mg/dL 65 - 99 mg/dL [facility] Glucose [Mass/Vol] 94 mg/dL Normal 65-99 [facility] Hemodialysis inpatienton [facility] MAGNESIUMon 05-17-2024 Magnesium [Mass/Vol] 2.3 mg/dL Normal 1.8-2.6 [facility] Comment on above: Performed By: #### 1 9123-9, CBCA, CMP, 2777-1 ####[facility] ([id number])[address] [facility], [address] [place] [address] Magnesiumon 05-17-2024 Magnesium [Mass/Vol] 2.3 mg/dL 1.8 - 2.6 mg/dL [facility] No Panel Informationon 05-17 Interpretation and review of laboratory results Abnormal [facility] PHOSPHORUSon 05-17-2024 Phosphate [Mass/Vol] 5.0 mg/dL High 2.4-4.9 [facility] Comment on above: Performed By: #### 1 23-9, CBCA, CMP, 2776-07 ####[facility] ([id number])[address], [address] [address] Phosphoruson 05-17-2024 Phosphate [Mass/Vol] 5 mg/dL High 2.4 - 4.9 mg/dL [facility] CBC AND AUTO DIFFon 05-16-20 ABSOLUTE BASOPHIL 0.1 X10E9/L Normal 0.0-0.2 [facility] Comment on above: Performed By: #### C MP, CBCA, , 2776-07 ####[facility] ([id number])[address], [address], [place] [address] ABSOLUTE NEUTROPHIL 6.5 X10E9/L Normal 1.5-6.6 [facility] Comment on above: Performed By: #### C MP, CBCA, , 2776-07 ####[facility] ([id number])[address], [address], [place] [address] Basophils/100 WBC (Bld) 0.9 % Normal [facility] Comment on above: Performed By: #### C MP, CBCA, , 2776-07 ####[facility] ([id number])[address], [address] [address] Eosinophils (Bld) [#/Vol] 0.8 10*3/uL High 0.0-0.4 [facility] Comment on above: Performed By: #### C MP, CBCA, , 2776-07 ####[facility] ([id number])[address], [address] [address] Eosinophils/100 WBC (Bld) 6.6 % Normal [facility] Comment on above: Performed By: #### C MP, CBCA, , 2776-07 ####[facility] ([id number])[address] [address] [place] [address] Erythrocyte distribution width (RBC) [Ratio] 13.3 % Normal 11.5-15.0 [facility] Comment on above: Performed By: #### C THEO, CBCA, , 2776-07 ####[facility] ([id number])[address] [address] [place] [address] Hematocrit (Bld) [Volume fraction] 33.1 % Low 39-49 [facility] Comment on above: Performed By: #### C THEO, CBCA, , 2776-07 ####[facility] ([id number])[address] [address] [place] [address] Hemoglobin (Bld) [Mass/Vol] 11.7 g/dL Low 13.0-17.0 [facility] Comment on above: Performed By: #### C THEO, CBCA, , 2776-07 ####[facility] ([id number])[address] [address] Lymphocytes (Bld) [#/Vol] 3.6 10*3/uL High 1.0-3.5 [facility] Comment on above: Performed By: #### C THEO, CBCA, , 2776-07 ####[facility] ([id number])[address] [address] [place] [address] Lymphocytes/100 WBC (Bld) 30.9 % Normal [facility] Comment on above: Performed By: #### C THEO, CBCA, , 2776-07 ####[facility] ([id number])[address] [address] [place] [address] MCH (RBC) [Entitic mass] 32.7 pg Normal 27-34 [facility] Comment on above: Performed By: #### C THEO, CBCA, , 2776-07 ####[facility] ([id number])[address], [address], [place] [address] MCHC (RBC) [Mass/Vol] 35.2 g/dL Normal 32-36 [facility] Comment on above: Performed By: #### C MP, CBCA, , 2776-07 ####[facility] ([id number])[address], [address], [place] [address] MCV (RBC) [Entitic vol] 93 fL Normal 80-100 [facility] Comment on above: Performed By: #### C THEO, CBCA, , 2776-07 ####[facility] ([id number])[address] [address], [place] [address] Monocytes (Bld) [#/Vol] 0.6 10*3/uL Normal 0-0.9 [facility] Comment on above: Performed By: #### C MP, CBCA, , 2776-07 ####[facility] ([id number])[address] [address] [place] [address] Monocytes/100 WBC (Bld) 5.1 % Normal [facility] Comment on above: Performed By: #### C MP, CBCA, , 2776-07 ####[facility] ([id number])[address] [address] [place] [address] Neutrophils/100 WBC (Bld) 56.5 % Normal [facility] Comment on above: Performed By: #### C MP, CBCA, , 2776-07 ####[facility] ([id number])[address] [address], [place] [address] Platelet mean volume (Bld) [Entitic vol] 6.8 fL Low 7-12 [facility] Comment on above: Performed By: #### C MP, CBCA, , 2776-07 ####[facility] ([id number])[address] [address] Platelets (Bld) [#/Vol] 313 10*3/uL Normal 150-450 [facility] Comment on above: Performed By: #### C MP, CBCA, , 2776-07 ####[facility] ([id number])[address] [address] RBC COUNT 3.57 X10E12/L Low 4.10-5.70 [facility] Comment on above: Performed By: #### C MP, CBCA, , 2776-07 ####[facility] ([id number])[address] [address] WBC (Bld) [#/Vol] 11.5 10*3/uL High 4.0-11.0 [facility] Comment on above: Performed By: #### C MP, CBCA, , 2776-07 ####[facility] ([id number])[address] [address] CBC auto differentialon 04-25 Basophils (Bld) [#/Vol] 0.1 10*3/uL [facility] Basophils/100 WBC (Bld) 0.9 % [facility] Eosinophils (Bld) [#/Vol] 0.8 10*3/uL High [facility] Eosinophils/100 WBC (Bld) 6.6 % [facility] Erythrocyte distribution width (RBC) [Ratio] 13.3 % 11.5 - 15.0 % [facility] Hematocrit (Bld) [Volume fraction] 33.1 % Low 39 - 49 % [facility] Hemoglobin (Bld) [Mass/Vol] 11.7 g/dL Low 13.0 - 17.0 g/dL [facility] Interpretation and review of laboratory results Abnormal [facility] Lymphocytes (Bld) [#/Vol] 3.6 10*3/uL High [facility] Lymphocytes/100 WBC (Bld) 30.9 % [facility] MCH (RBC) [Entitic mass] 32.7 pg 27 - 34 pg [facility] MCHC (RBC) [Mass/Vol] 35.2 g/dL 32 - 36 g/dL [facility] MCV (RBC) [Entitic vol] 93 fL 80 - 100 fL [facility] Monocytes (Bld) [#/Vol] 0.6 10*3/uL [facility] Monocytes/100 WBC (Bld) 5.1 % [facility] Neutrophils (Bld) [#/Vol] 6.5 10*3/uL [facility] Neutrophils/100 WBC (Bld) 56.5 % [facility] Platelet mean volume (Bld) [Entitic vol] 6.8 fL Low 7 - 12 fL [facility] Platelets (Bld) [#/Vol] 313 10*3/uL [facility] RBC (Bld) [#/Vol] 3.57 10*6/uL Low [facility] WBC corrected for nucl RBC Auto (Bld) [#/Vol] 11.5 High [facility] COMPREHENSIVE METABOLIC PANE Cecilio 05-16-2024 Albumin [Mass/Vol] 4.1 g/dL Normal 3.2-5.3 [facility] Comment on above: Performed By: #### C THEO CBCPratibha, , 2776-07 ####[facility] ([id number])[address], [place] [address] ALP [Catalytic activity/Vol] 99 U/L Normal 39-130 [facility] Comment on above: Performed By: #### C THEO CBCPratibha, , 2776-07 ####[facility] ([id number])[address], [address], [place] [address] ALT [Catalytic activity/Vol] 32 U/L Normal 0-40 [facility] Comment on above: Performed By: #### C ARTEMIO VENEGAS, , 2776-07 ####[facility] ([id number])[address], [address], [place] [address] Anion gap [Moles/Vol] 18 mmol/L High 5-15 [facility] Comment on above: Performed By: #### C THEO CBCPratibha, , 2776-07 ####[facility] ([id number])[address], [address], [place] [address] AST [Catalytic activity/Vol] 20 U/L Normal 0-41 [facility] Comment on above: Performed By: #### C THEO CBCPratibha, , 2776-07 ####[facility] ([id number])[address], [address], [place] [address] Bilirubin [Mass/Vol] 0.7 mg/dL Normal 0.3-1.2 [facility] Comment on above: Performed By: #### C ARTEMIO VENEGAS, , 2776-07 ####[facility] ([id number])[address], [address], [place] [address] Calcium [Mass/Vol] 8.8 mg/dL Normal 8.5-10.5 [facility] Comment on above: Performed By: #### C THEO CBCPratibha, , 2776-07 ####[facility] ([id number])[address], [address], [place] [address] Chloride [Moles/Vol] 97 mmol/L Low 98-109 [facility] Comment on above: Performed By: #### C THEO CBCA, , 2776-07 ####[facility] ([id number])[address], [address], [place] [address] CO2 [Moles/Vol] 20 mmol/L Low 22-32 [facility] Comment on above: Performed By: #### C ARTEMIO VENEGAS, , 2776-07 ####[facility] ([id number])[address] [address] [address] Creatinine [Mass/Vol] 3.32 mg/dL High 0.60-1.30 [facility] Comment on above: Result Comment: METH OD TRACEABLE TO IDMS STANDARD Performed By: #### C ARTEMIO VENEGAS, , 2776-07 ####[facility] ([id number])[address] [address], [place] [address] GFR/1.73 sq M.predicted among non-blacks MDRD (S/P/Bld) [Vol rate/Area] 20 mL/min/{1.73_m2} Low >59 [facility] Comment on above: Result Comment: Reported eGFR is based on the CKD-EPI 2020 equation that does not use a race coefficient. Performed By: #### C ARTEMIO VENEGAS, , 2776-07 ####[facility] ([id number])[address] [address], [place] [address] Glucose [Mass/Vol] 163 mg/dL High 65-99 [facility] Comment on above: Performed By: #### C ARTEMIO VENEGAS, , 2776-07 ####[facility] ([id number])[address] [address] [address] Potassium [Moles/Vol] 4.6 mmol/L Normal 3.5-5.0 [facility] Comment on above: Performed By: #### C ARTEMIO VENEGAS, , 2776-07 ####[facility] ([id number])[address] [address], [place] [address] Protein [Mass/Vol] 7.0 g/dL Normal 6.0-8.0 [facility] Comment on above: Performed By: #### C ARTEMIO VENEGAS, , 27701-22 ####[facility] ([id number])[address], [address] [place] [address] Sodium [Moles/Vol] 135 mmol/L Normal 134-146 [facility] Comment on above: Performed By: #### C THEO, ALEENA, , 2776- ####[facility] ([id number])[address], [address] [place] [address] Urea nitrogen [Mass/Vol] 37 mg/dL High 5-27 [facility] Comment on above: Performed By: #### C THEO, ALEENA, , 2776- ####[facility] ([id number])[address] [address] Comprehensive metabolic pane cecilio 05-16-2024 Albumin [Mass/Vol] 4.1 g/dL 3.2 - 5.3 g/dL [facility] ALP [Catalytic activity/Vol] 99 U/L 39 - 130 U/L [facility] ALT No additional P-5'-P [Catalytic activity/Vol] 32 U/L 0 - 40 U/L [facility] Anion gap [Moles/Vol] 18 mmol/L High 5 - 15 mmol/L [facility] AST [Catalytic activity/Vol] 20 U/L 0 - 41 U/L [facility] Bilirubin [Mass/Vol] 0.7 mg/dL 0.3 - 1.2 mg/dL [facility] Calcium [Mass/Vol] 8.8 mg/dL 8.5 - 10. 5 mg/dL [facility] Chloride [Moles/Vol] 97 mmol/L Low 98 - 109 mmol/L [facility] CO2 [Moles/Vol] 20 mmol/L Low 22 - 32 mmol/L [facility] Creatinine [Mass/Vol] 3.32 mg/dL High 0.60 - 1.30 mg/dL [facility] eGFR (CKD-EPI)non-race dependent 20 Low - PINF [facility] Glucose [Mass/Vol] 163 mg/dL High 65 - 99 mg/dL [facility] Potassium [Moles/Vol] 4.6 mmol/L 3.5 - 5.0 mmol/L [facility] Protein [Mass/Vol] 7 g/dL 6.0 - 8.0 g/dL [facility] Sodium [Moles/Vol] 135 mmol/L 134 - 146 mmol/L [facility] Urea nitrogen [Mass/Vol] 37 mg/dL High 5 - 27 mg/dL [facility] Glucose Glucometer (BldC) [M ass/Vol]on 05-16-2024 Glucose [Mass/Vol] 81 mg/dL 65 - 99 mg/dL [facility] Glucose [Mass/Vol] 81 mg/dL Normal 65-99 [facility] Glucose [Mass/Vol] 214 mg/dL High 65 - 99 mg/dL [facility] Interpretation and review of laboratory results Abnormal [facility] Glucose [Mass/Vol] 214 mg/dL High 65-99 [facility] Glucose [Mass/Vol] 171 mg/dL High 65 - 99 mg/dL [facility] Interpretation and review of laboratory results Abnormal [facility] Glucose [Mass/Vol] 171 mg/dL High 65-99 [facility] Glucose [Mass/Vol] 184 mg/dL High 65 - 99 mg/dL [facility] Interpretation and review of laboratory results Abnormal [facility] Glucose [Mass/Vol] 184 mg/dL High 65-99 [facility] Glucose [Mass/Vol] 189 mg/dL High 65 - 99 mg/dL [facility] Interpretation and review of laboratory results Abnormal [facility] Glucose [Mass/Vol] 189 mg/dL High 65-99 [facility] Glucose [Mass/Vol] 143 mg/dL High 65 - 99 mg/dL [facility] Interpretation and review of laboratory results Abnormal [facility] Glucose [Mass/Vol] 143 mg/dL High 65-99 [facility] Glucose [Mass/Vol] 135 mg/dL High 65 - 99 mg/dL [facility] Interpretation and review of laboratory results Abnormal [facility] MAGNESIUMon 05-16-2024 Magnesium [Mass/Vol] 2.2 mg/dL Normal 1.8-2.6 [facility] Comment on above: Performed By: #### C MP, CBCA, , 2776-07 ####[facility] ([id number])[address], [address] [place] [address] Magnesiumon 05-16-2024 Magnesium [Mass/Vol] 2.2 mg/dL 1.8 - 2.6 mg/dL [facility] No Panel Informationon 05-16 Interpretation and review of laboratory results Abnormal [facility] PHOSPHORUSon 05-16-2024 Phosphate [Mass/Vol] 5.3 mg/dL High 2.4-4.9 [facility] Comment on above: Performed By: #### C THEO, CBCA, , 2776-07 ####[facility] ([id number])[address], [address] [place] [address] Phosphoruson 05-16-2024 Phosphate [Mass/Vol] 5.3 mg/dL High 2.4 - 4.9 mg/dL [facility] CBC AND AUTO DIFFon 05-15-20 24 ABSOLUTE BASOPHIL 0.0 X10E9/L Normal 0.0-0.2 [facility] Comment on above: Performed By: #### C BCA, 2275-4, 2776-07, , CMP, FEPR, 2132-03, 2284-02 ####[facility] ([id number])[address], [address] [place] [address] ABSOLUTE NEUTROPHIL 5.1 X10E9/L Normal 1.5-6.6 [facility] Comment on above: Performed By: #### C BCA, 2275-4, 2776-07, , CMP, FEPR, 2132-03, 2284-02 ####[facility] ([id number])[address], [place] [address] Basophils/100 WBC (Bld) 0.5 % Normal [facility] Comment on above: Performed By: #### C BCA, 6-4, 2776-, 11106-5, CMP, FEPR, 2132-03, 2284-02 ####[facility] ([id number])[address] [address] [place] [address] Eosinophils (Bld) [#/Vol] 0.7 10*3/uL High 0.0-0.4 [facility] Comment on above: Performed By: #### C BCA, 6-4, 2776-, , CMP, FEPR, 2132-03, 2284-02 ####[facility] ([id number])[address] [address] [place] [address] Eosinophils/100 WBC (Bld) 8.2 % Normal [facility] Comment on above: Performed By: #### C BCA, 2275-4, 2776-, , CMP, FEPR, 2132-03, 2284-02 ####[facility] ([id number])[address] [address] [place] [address] Erythrocyte distribution width (RBC) [Ratio] 13.2 % Normal 11.5-15.0 [facility] Comment on above: Performed By: #### C BCA, 6-4, 2776-, , CMP, FEPR, 2132-03, 2284-02 ####[facility] ([id number])[address] [address] [place] [address] Hematocrit (Bld) [Volume fraction] 29.5 % Low 39-49 [facility] Comment on above: Performed By: #### C BCA, 6-4, 2776-, 28093-1, CMP, FEPR, 2132-03, 2284-02 ####[facility] ([id number])[address], [place] [address] Hemoglobin (Bld) [Mass/Vol] 10.3 g/dL Low 13.0-17.0 [facility] Comment on above: Performed By: #### C BCA, 6-4, 2776-1, , CMP, FEPR, 2132-03, 2284-02 ####[facility] ([id number])[address] [address] [place] [address] Lymphocytes (Bld) [#/Vol] 2.0 10*3/uL Normal 1.0-3.5 [facility] Comment on above: Performed By: #### C BCA, 6-4, 2776-, , CMP, FEPR, 2132-03, 2284-02 ####[facility] ([id number])[address] [address] [place] [address] [id number] Lymphocytes/100 WBC (Bld) 23.8 % Normal [facility] Comment on above: Performed By: #### C BCA, 6-4, 2776-07, , CMP, FEPR, 2132-03, 2284-02 ####[facility] ([id number])[address] [address] [place] [address] [id number] MCH (RBC) [Entitic mass] 32.6 pg Normal 27-34 [facility] Comment on above: Performed By: #### C BCA, 6-4, 2776-, 54026-8, CMP, FEPR, 2132-03, 2284-02 ####[facility] ([id number])[address] [address] [place] [address] 14575 MCHC (RBC) [Mass/Vol] 35.1 g/dL Normal 32-36 [facility] Comment on above: Performed By: #### C BCA, 6-4, 2776-, 75891-3, CMP, FEPR, 2132-03, 8 ####[facility] ([id number])[address] [address], [place] [address] MCV (RBC) [Entitic vol] 93 fL Normal 80-100 [facility] Comment on above: Performed By: #### C BCA, 6-4, 2776-, 90803-7, CMP, FEPR, 2132-03, 2283- ####[facility] ([id number])[address] [address] [place] [address] Monocytes (Bld) [#/Vol] 0.5 10*3/uL Normal 0-0.9 [facility] Comment on above: Performed By: #### C BCA, 6-4, 2776-07, , CMP, FEPR, 2132-03, 2283- ####[facility] ([id number])[address] [address] [place] [address] Monocytes/100 WBC (Bld) 6.3 % Normal [facility] Comment on above: Performed By: #### C BCA, 6-4, 2776-07, , CMP, FEPR, 2132-03, 2283- ####[facility] ([id number])[address] [address] [place] [address] Neutrophils/100 WBC (Bld) 61.2 % Normal [facility] Comment on above: Performed By: #### C BCA, 6-4, 2776-, 24266-1, CMP, FEPR, 2132-03, 2283- ####[facility] ([id number])[address] [address] [place] [address] Platelet mean volume (Bld) [Entitic vol] 6.7 fL Low 7-12 [facility] Comment on above: Performed By: #### C BCA, 2276-4, 2777-1, 46139-1, CMP, FEPR, 2131-9, 4-8 ####[facility] ([id number])[address] [address] Platelets (Bld) [#/Vol] 228 10*3/uL Normal 150-450 [facility] Comment on above: Performed By: #### C BCA, 6-4, 7-1, 84179-7, CMP, FEPR, 2131-9, 4-8 ####[facility] ([id number])[address] [address] RBC COUNT 3.17 X10E12/L Low 4.10-5.70 [facility] Comment on above: Performed By: #### C BCA, 6-4, 7-1, 80720-5, CMP, FEPR, 2131-9, 4-8 ####[facility] ([id number])[address] [address] WBC (Bld) [#/Vol] 8.3 10*3/uL Normal 4.0-11.0 [facility] Comment on above: Performed By: #### C BCA, 6-4, 7-1, 79918-9, CMP, FEPR, 2131-9, 4-8 ####[facility] ([id number])[address] [address] CBC auto differentialon - Basophils (Bld) [#/Vol] 0 10*3/uL [facility] Basophils/100 WBC (Bld) 0.5 % [facility] Eosinophils (Bld) [#/Vol] 0.7 10*3/uL High [facility] Eosinophils/100 WBC (Bld) 8.2 % [facility] Erythrocyte distribution width (RBC) [Ratio] 13.2 % 11.5 - 15.0 % [facility] Hematocrit (Bld) [Volume fraction] 29.5 % Low 39 - 49 % [facility] Hemoglobin (Bld) [Mass/Vol] 10.3 g/dL Low 13.0 - 17.0 g/dL [facility] Interpretation and review of laboratory results Abnormal [facility] Lymphocytes (Bld) [#/Vol] 2 10*3/uL [facility] Lymphocytes/100 WBC (Bld) 23.8 % [facility] MCH (RBC) [Entitic mass] 32.6 pg 27 - 34 pg [facility] MCHC (RBC) [Mass/Vol] 35.1 g/dL 32 - 36 g/dL [facility] MCV (RBC) [Entitic vol] 93 fL 80 - 100 fL [facility] Monocytes (Bld) [#/Vol] 0.5 10*3/uL [facility] Monocytes/100 WBC (Bld) 6.3 % [facility] Neutrophils (Bld) [#/Vol] 5.1 10*3/uL [facility] Neutrophils/100 WBC (Bld) 61.2 % [facility] Platelet mean volume (Bld) [Entitic vol] 6.7 fL Low 7 - 12 fL [facility] Platelets (Bld) [#/Vol] 228 10*3/uL [facility] RBC (Bld) [#/Vol] 3.17 10*6/uL Low [facility] WBC corrected for nucl RBC Auto (Bld) [#/Vol] 8.3 [facility] COMPREHENSIVE METABOLIC PANE Cecilio 05-15-2024 Albumin [Mass/Vol] 3.6 g/dL Normal 3.2-5.3 [facility] Comment on above: Performed By: #### C BCA, 6-4, 7-1, 23182-9, CMP, FEPR, 2131-9, 2283-8 ####[facility] ([id number])[address] [place] [address], [address] [place] [address] ALP [Catalytic activity/Vol] 80 U/L Normal 39-130 [facility] Comment on above: Performed By: #### C BCA, 6-4, 7-1, 43455-5, CMP, FEPR, 9, 2283-8 ####[facility] ([id number])[address], [address] [address] ALT [Catalytic activity/Vol] 30 U/L Normal 0-40 [facility] Comment on above: Performed By: #### C BCA, 2276-4, 7-1, 46558-1, CMP, FEPR, 2132-03, 2283-8 ####[facility] ([id number])[address], [address], [place] [address] Anion gap [Moles/Vol] 11 mmol/L Normal 5-15 [facility] Comment on above: Performed By: #### C BCA, 6-4, 7-1, 04561-4, CMP, FEPR, 2132-03, 2283-8 ####[facility] ([id number])[address], [address], [place] [address] AST [Catalytic activity/Vol] 13 U/L Normal 0-41 [facility] Comment on above: Performed By: #### C BCA, 6-4, 7-1, 01732-6, CMP, FEPR, 2132-03, 2283-8 ####[facility] ([id number])[address] [address], [place] [address] Bilirubin [Mass/Vol] 0.6 mg/dL Normal 0.3-1.2 [facility] Comment on above: Performed By: #### C BCA, 6-4, 7-1, 63136-0, CMP, FEPR, 2132-03, 2283-8 ####[facility] ([id number])[address], [address], [place] [address] Calcium [Mass/Vol] 8.7 mg/dL Normal 8.5-10.5 [facility] Comment on above: Performed By: #### C BCA, 2276-4, 7-1, 09054-1, CMP, FEPR, 2132-03, 8 ####[facility] ([id number])[address], [address] [place] [address] Chloride [Moles/Vol] 102 mmol/L Normal 98-109 [facility] Comment on above: Performed By: #### C BCA, 6-4, 7-1, 94224-7, CMP, FEPR, 2132-03, 2284-02 ####[facility] ([id number])[address] [address], [place] [address] CO2 [Moles/Vol] 24 mmol/L Normal 22-32 [facility] Comment on above: Performed By: #### C BCA, 6-4, 7-1, 38626-0, CMP, FEPR, 2132-03, 2284-02 ####[facility] ([id number])[address], [address], [place] [address] Creatinine [Mass/Vol] 2.86 mg/dL High 0.60-1.30 [facility] Comment on above: Result Comment: METH OD TRACEABLE TO IDMS STANDARD Performed By: #### C BCA, 6-4, 7-1, 14693-6, CMP, FEPR, 2132-03, 2284-02 ####[facility] ([id number])[address] [address] GFR/1.73 sq M.predicted among non-blacks MDRD (S/P/Bld) [Vol rate/Area] 24 mL/min/{1.73_m2} Low >59 [facility] Comment on above: Result Comment: Reported eGFR is based on the CKD-EPI 2020 equation that does not use a race coefficient. Performed By: #### C BCA, 2276-4, 7-1, 22928-9, CMP, FEPR, 2132-03, 2284-8 ####[facility] ([id number])[address], [address], [place] [address] Glucose [Mass/Vol] 156 mg/dL High 65-99 [facility] Comment on above: Performed By: #### C BCA, 2276-4, 7-1, 28823-8, CMP, FEPR, 2132-03, 2284-02 ####[facility] ([id number])[address], [address], [place] [address] Potassium [Moles/Vol] 4.4 mmol/L Normal 3.5-5.0 [facility] Comment on above: Performed By: #### C BCA, 2276-4, 2776-, 22596-6, CMP, FEPR, 2132-03, 2284-02 ####[facility] ([id number])[address], [address], [place] [address] Protein [Mass/Vol] 6.0 g/dL Normal 6.0-8.0 [facility] Comment on above: Performed By: #### C BCA, 2276-4, 2776-1, 51098-5, CMP, FEPR, 2132-03, 2284-02 ####[facility] ([id number])[address], [address], [place] [address] Sodium [Moles/Vol] 137 mmol/L Normal 134-146 [facility] Comment on above: Performed By: #### C BCA, 2276-4, 2776-1, 01288-2, CMP, FEPR, 2132-03, 2284-02 ####[facility] ([id number])[address], [address], [place] [address] Urea nitrogen [Mass/Vol] 36 mg/dL High 5-27 [facility] Comment on above: Performed By: #### C BCA, 2276-4, 7-1, 08126-2, CMP, FEPR, 2132-03, 2284-02 ####[facility] ([id number])2[address] [facility], [address] [place] [address] Cobalamin (Vitamin B12) [Mas s/Vol]on 05-15-2024 [facility] Comprehensive metabolic pane cecilio 05-15-2024 Albumin [Mass/Vol] 3.6 g/dL 3.2 - 5.3 g/dL [facility] ALP [Catalytic activity/Vol] 80 U/L 39 - 130 U/L [facility] ALT No additional P-5'-P [Catalytic activity/Vol] 30 U/L 0 - 40 U/L [facility] Anion gap [Moles/Vol] 11 mmol/L 5 - 15 mmol/L [facility] AST [Catalytic activity/Vol] 13 U/L 0 - 41 U/L [facility] Bilirubin [Mass/Vol] 0.6 mg/dL 0.3 - 1.2 mg/dL [facility] Calcium [Mass/Vol] 8.7 mg/dL 8.5 - 10. 5 mg/dL [facility] Chloride [Moles/Vol] 102 mmol/L 98 - 109 mmol/L [facility] CO2 [Moles/Vol] 24 mmol/L 22 - 32 mmol/L [facility] Creatinine [Mass/Vol] 2.86 mg/dL High 0.60 - 1.30 mg/dL [facility] eGFR (CKD-EPI)non-race dependent 24 Low - PINF [facility] Glucose [Mass/Vol] 156 mg/dL High 65 - 99 mg/dL [facility] Interpretation and review of laboratory results Abnormal [facility] Potassium [Moles/Vol] 4.4 mmol/L 3.5 - 5.0 mmol/L [facility] Protein [Mass/Vol] 6 g/dL 6.0 - 8.0 g/dL [facility] Sodium [Moles/Vol] 137 mmol/L 134 - 146 mmol/L [facility] Urea nitrogen [Mass/Vol] 36 mg/dL High 5 - 27 mg/dL [facility] FERRITINon 05-15-2024 Ferritin [Mass/Vol] 652 ng/mL High 24-336 [facility] Comment on above: Performed By: #### C BCA, 2276-4, 2777-1, 19405-3, CMP, FEPR, 2132-03, 2284-02 ####[facility] ([id number])[address], [address] [place] [address] Ferritinon 05-15-2024 Ferritin [Mass/Vol] 652 ng/mL High 24 - 336 ng/mL [facility] Ferritin [Mass/Vol]on 2023 Interpretation and review of laboratory results Abnormal [facility] Folateon 05-15-2024 Folate [Mass/Vol] 6.7 ng/mL 5.8 - PINF ng/mL [facility] Folate [Mass/Vol]on 05-15-20 24 [facility] FOLIC ACID 6.7 ng/mL Normal >5.8 [facility] Comment on above: Result Comment: NEW REFERENCE RANGE Performed By: #### C BCA, 2276-4, 7-1, 76484-0, CMP, FEPR, 2132-03, 2283-8 ####[facility] ([id number])[address], [address] [place] [address] Glucose Glucometer (BldC) [M ass/Vol]on 05-15-2024 Glucose [Mass/Vol] 135 mg/dL High 65-99 [facility] Glucose [Mass/Vol] 189 mg/dL High 65 - 99 mg/dL [facility] Interpretation and review of laboratory results Abnormal [facility] Glucose [Mass/Vol] 189 mg/dL High 65-99 [facility] Glucose [Mass/Vol] 150 mg/dL High 65 - 99 mg/dL [facility] Interpretation and review of laboratory results Abnormal [facility] Glucose [Mass/Vol] 150 mg/dL High 65-99 [facility] Glucose [Mass/Vol] 144 mg/dL High 65 - 99 mg/dL [facility] Interpretation and review of laboratory results Abnormal [facility] Glucose [Mass/Vol] 144 mg/dL High 65-99 [facility] Glucose [Mass/Vol] 142 mg/dL High 65 - 99 mg/dL [facility] Interpretation and review of laboratory results Abnormal [facility] Glucose [Mass/Vol] 142 mg/dL High 65-99 [facility] Glucose [Mass/Vol] 100 mg/dL High 65 - 99 mg/dL [facility] Interpretation and review of laboratory results Abnormal [facility] Glucose [Mass/Vol] 100 mg/dL High 65-99 [facility] Hemodialysis inpatienton [facility] IRON PROFILEon 05-15-2024 Iron [Mass/Vol] 47 ug/dL Low 50-212 [facility] Comment on above: Performed By: #### C BCA, 6-4, 7-1, 17967-8, CMP, FEPR, 2132-03, 2284-02 ####[facility] ([id number])[address], [address] [place] [address] IRON BINDING 234 ug/dL Low 250-425 [facility] Comment on above: Performed By: #### C BCA, 6-4, 2776-1, 05219-5, CMP, FEPR, 2132-03, 2284-02 ####[facility] ([id number])[address], [address] [place] [address] IRON SATURATION 20 % SATURATION Normal 20-50 [facility] Comment on above: Performed By: #### C BCA, 6-4, 2776-1, 52895-4, CMP, FEPR, 2132-03, 2284-02 ####[facility] ([id number])[address], [address] [place] [address] Iron and TIBCon 05-15-2024 Interpretation and review of laboratory results Abnormal [facility] Iron [Mass/Vol] 47 ug/dL Low 50 - 212 ug/dL [facility] Iron binding capacity [Mass/Vol] 234 ug/dL Low 250 - 425 ug/dL [facility] Iron saturation [Mass fraction] 20 [facility] MAGNESIUMon 05-15-2024 Magnesium [Mass/Vol] 2.2 mg/dL Normal 1.8-2.6 [facility] Comment on above: Performed By: #### C BCA, 2276-4, 2777-1, 73028-3, CMP, FEPR, 2132-03, 2284-02 ####[facility] ([id number])[address], [address], [place] [address] Magnesiumon 05-15-2024 Magnesium [Mass/Vol] 2.2 mg/dL 1.8 - 2.6 mg/dL [facility] No Panel Informationon 05-15 [facility] PHOSPHORUSon 05-15-2024 Phosphate [Mass/Vol] 4.0 mg/dL Normal 2.4-4.9 [facility] Comment on above: Performed By: #### C BCA, 2276-4, 7-1, 47273-7, CMP, FEPR, 2132-03, 2284-02 ####[facility] ([id number])[address] [facility] [address] [place] [address] Phosphoruson 05-15-2024 Phosphate [Mass/Vol] 4 mg/dL 2.4 - 4.9 mg/dL [facility] VITAMIN B12on 05-15-2024 Cobalamin (Vitamin B12) [Mass/Vol] 314 pg/mL Normal 180-914 [facility] Comment on above: Performed By: #### C BCA, 2276-4, 2777-1, 49053-5, CMP, FEPR, 2132-03, 2284-02 ####[facility] ([id number])[address], [address] [place] [address] Vitamin B12on 05-15-2024 Cobalamin (Vitamin B12) [Mass/Vol] 314 pg/mL 180 - 914 pg/mL [facility] CBC AND AUTO DIFFon 10-21-20 24 ABSOLUTE BASOPHIL 0.1 X10E9/L Normal 0.0-0.2 [facility] Comment on above: Performed By: #### 6 298-4, 70859-9, 2338-0, #### [facility] ([id number]) [address] [place] [address] ABSOLUTE NEUTROPHIL 4.8 X10E9/L Normal 1.5-6.6 [facility] Comment on above: Performed By: #### 6 298-4, 66814-8, 2338-0, #### [facility] ([id number]) [address] [place] [address] Basophils/100 WBC (Bld) 1.0 % Normal [facility] Comment on above: Performed By: #### 6 298-4, 20687-1, 0, #### [facility] ([id number]) [address] [place] [address] Eosinophils (Bld) [#/Vol] 0.6 10*3/uL High 0.0-0.4 [facility] Comment on above: Performed By: #### 6 298-4, 73485-6, 2338-0, #### [facility] ([id number]) [address] [place] [address] Eosinophils/100 WBC (Bld) 7.3 % Normal [facility] Comment on above: Performed By: #### 6 298-4, 11938-7, 2338-0, #### [facility] ([id number]) [address] [place] [address] Erythrocyte distribution width (RBC) [Ratio] 13.6 % Normal 11.5-15.0 [facility] Comment on above: Performed By: #### 6 298-4, 07470-1, 2338-0, #### [facility] ([id number]) [address] [place] [address] Hematocrit (Bld) [Volume fraction] 29.0 % Low 39-49 [facility] Comment on above: Performed By: #### 6 298-4, 38418-6, 2338-0, #### [facility] ([id number]) [address] [place] [address] Hemoglobin (Bld) [Mass/Vol] 10.2 g/dL Low 13.0-17.0 [facility] Comment on above: Performed By: #### 6 298-4, 36571-5, 2338-0, #### [facility] ([id number]) [address] [place] [address] Lymphocytes (Bld) [#/Vol] 2.1 10*3/uL Normal 1.0-3.5 [facility] Comment on above: Performed By: #### 6 298-4, 17404-9, 2338-0, #### [facility] ([id number]) [address] [place] [address] Lymphocytes/100 WBC (Bld) 25.7 % Normal [facility] Comment on above: Performed By: #### 6 298-4, 17835-3, 2338-0, #### [facility] ([id number]) [address] [place] [address] MCH (RBC) [Entitic mass] 32.6 pg Normal 27-34 [facility] Comment on above: Performed By: #### 6 298-4, 53339-1, 2338-0, #### [facility] ([id number]) [address] [place] [address] MCHC (RBC) [Mass/Vol] 35.1 g/dL Normal 32-36 [facility] Comment on above: Performed By: #### 6 298-4, 06933-1, 2338-0, #### [facility] ([id number]) [address] [place] [address] MCV (RBC) [Entitic vol] 93 fL Normal 80-100 [facility] Comment on above: Performed By: #### 6 298-4, 93272-9, 2338-0, #### [facility] ([id number]) [address] [place] [address] Monocytes (Bld) [#/Vol] 0.5 10*3/uL Normal 0-0.9 [facility] Comment on above: Performed By: #### 6 298-4, 83515-2, 2338-0, #### [facility] ([id number]) [address] [place] [address] Monocytes/100 WBC (Bld) 5.7 % Normal [facility] Comment on above: Performed By: #### 6 298-4, 98693-0, 2338-0, #### [facility] ([id number]) [address] [place] [address] Neutrophils/100 WBC (Bld) 60.3 % Normal [facility] Comment on above: Performed By: #### 6 298-4, 90022-0, 2338-0, #### [facility] ([id number]) [address] [place] [address] Platelet mean volume (Bld) [Entitic vol] 6.9 fL Low 7-12 [facility] Comment on above: Performed By: #### 6 298-4, 59555-2, 2338-0, #### [facility] ([id number]) [address] [place] [address] Platelets (Bld) [#/Vol] 200 10*3/uL Normal 150-450 [facility] Comment on above: Performed By: #### 6 298-4, 32897-4, 2338-0, #### [facility] ([id number]) [address] [place] [address] RBC COUNT 3.12 X10E12/L Low 4.10-5.70 [facility] Comment on above: Performed By: #### 6 298-4, 66226-1, 2338-0, #### [facility] ([id number]) [address] [place] [address] WBC (Bld) [#/Vol] 8.0 10*3/uL Normal 4.0-11.0 [facility] Comment on above: Performed By: #### 6 298-4, 44397-5, 2338-0, #### [facility] ([id number]) [address] [place] [address] CBC auto differentialon 04-25 Basophils (Bld) [#/Vol] 0.1 10*3/uL [facility] Basophils/100 WBC (Bld) 1 % [facility] Eosinophils (Bld) [#/Vol] 0.6 10*3/uL High [facility] Eosinophils/100 WBC (Bld) 7.3 % [facility] Erythrocyte distribution width (RBC) [Ratio] 13.6 % 11.5 - 15.0 % [facility] Hematocrit (Bld) [Volume fraction] 29 % Low 39 - 49 % [facility] Hemoglobin (Bld) [Mass/Vol] 10.2 g/dL Low 13.0 - 17.0 g/dL [facility] Interpretation and review of laboratory results Abnormal [facility] Lymphocytes (Bld) [#/Vol] 2.1 10*3/uL [facility] Lymphocytes/100 WBC (Bld) 25.7 % [facility] MCH (RBC) [Entitic mass] 32.6 pg 27 - 34 pg [facility] MCHC (RBC) [Mass/Vol] 35.1 g/dL 32 - 36 g/dL [facility] MCV (RBC) [Entitic vol] 93 fL 80 - 100 fL [facility] Monocytes (Bld) [#/Vol] 0.5 10*3/uL [facility] Monocytes/100 WBC (Bld) 5.7 % [facility] Neutrophils (Bld) [#/Vol] 4.8 10*3/uL [facility] Neutrophils/100 WBC (Bld) 60.3 % [facility] Platelet mean volume (Bld) [Entitic vol] 6.9 fL Low 7 - 12 fL [facility] Platelets (Bld) [#/Vol] 200 10*3/uL [facility] RBC (Bld) [#/Vol] 3.12 10*6/uL Low [facility] WBC corrected for nucl RBC Auto (Bld) [#/Vol] 8 [facility] COMPREHENSIVE METABOLIC PANE Cecilio 05-14-2024 Albumin [Mass/Vol] 3.6 g/dL Normal 3.2-5.3 [facility] Comment on above: Performed By: #### 6 298-4, 84717-1, 2338-0, #### [facility] ([id number]) [address] [place] [address] ALP [Catalytic activity/Vol] 76 U/L Normal 39-130 [facility] Comment on above: Performed By: #### 6 298-4, 86231-1, 2338-0, #### [facility] ([id number]) [address] [place] [address] ALT [Catalytic activity/Vol] 40 U/L Normal 0-40 [facility] Comment on above: Performed By: #### 6 298-4, 28131-2, 2338-0, #### [facility] ([id number]) [address] [place] [address] Anion gap [Moles/Vol] 12 mmol/L Normal 5-15 [facility] Comment on above: Performed By: #### 6 298-4, 75928-8, 2338-0, #### [facility] ([id number]) [address] [facility] [place] [address] AST [Catalytic activity/Vol] 16 U/L Normal 0-41 [facility] Comment on above: Performed By: #### 6 298-4, 28456-4, 2338-0, #### [facility] ([id number]) [address] [place] [address] Bilirubin [Mass/Vol] 0.6 mg/dL Normal 0.3-1.2 [facility] Comment on above: Performed By: #### 6 298-4, 58320-9, 2338-0, #### [facility] ([id number]) [address] [facility] [place] [address] Calcium [Mass/Vol] 8.5 mg/dL Normal 8.5-10.5 [facility] Comment on above: Performed By: #### 6 298-4, 61402-2, 2338-0, #### [facility] ([id number]) [address] [facility] [place] [address] Chloride [Moles/Vol] 103 mmol/L Normal 98-109 [facility] Comment on above: Performed By: #### 6 298-4, 71911-8, 2338-0, #### [facility] ([id number]) [address] [place] [address] CO2 [Moles/Vol] 23 mmol/L Normal 22-32 [facility] Comment on above: Performed By: #### 6 298-4, 71911-4, 2338-0, #### [facility] ([id number]) [address] [facility] [place] [place] [address] Creatinine [Mass/Vol] 2.69 mg/dL High 0.60-1.30 [facility] Comment on above: Result Comment: METH OD TRACEABLE TO IDMS STANDARD Performed By: #### 6 298-4, 43083-1, 2338-0, #### [facility] ([id number]) [address] [place] [address] GFR/1.73 sq M.predicted among non-blacks MDRD (S/P/Bld) [Vol rate/Area] 25 mL/min/{1.73_m2} Low >59 [facility] Comment on above: Result Comment: Reported eGFR is based on the CKD-EPI 2020 equation that does not use a race coefficient. Performed By: #### 6 298-4, 43119-7, 2338-0, #### [facility] ([id number]) [address] [place] [address] Glucose [Mass/Vol] 161 mg/dL High 65-99 [facility] Comment on above: Performed By: #### 6 298-4, 48625-8, 2338-0, #### [facility] ([id number]) [address] [place] [address] Potassium [Moles/Vol] 4.1 mmol/L Normal 3.5-5.0 [facility] Comment on above: Performed By: #### 6 298-4, 34691-4, 2338-0, #### [facility] ([id number]) [address] [place] [address] Protein [Mass/Vol] 5.9 g/dL Low 6.0-8.0 [facility] Comment on above: Performed By: #### 6 298-4, 95732-8, 2338-0, #### [facility] ([id number]) [address] [place] [address] Sodium [Moles/Vol] 138 mmol/L Normal 134-146 [facility] Comment on above: Performed By: #### 6 298-4, 53156-1, 2339-0, 66831-7 #### [facility] ([id number]) [address] [place] [address] Urea nitrogen [Mass/Vol] 25 mg/dL Normal 5-27 [facility] Comment on above: Performed By: #### 6 298-4, 68943-1, 2339-0, 82129-8 #### [facility] ([id number]) [address] [place] [address] Comprehensive metabolic pane cecilio 05-14-2024 Albumin [Mass/Vol] 3.6 g/dL 3.2 - 5.3 g/dL [facility] ALP [Catalytic activity/Vol] 76 U/L 39 - 130 U/L [facility] ALT No additional P-5'-P [Catalytic activity/Vol] 40 U/L 0 - 40 U/L [facility] Anion gap [Moles/Vol] 12 mmol/L 5 - 15 mmol/L [facility] AST [Catalytic activity/Vol] 16 U/L 0 - 41 U/L [facility] Bilirubin [Mass/Vol] 0.6 mg/dL 0.3 - 1.2 mg/dL [facility] Calcium [Mass/Vol] 8.5 mg/dL 8.5 - 10. 5 mg/dL [facility] Chloride [Moles/Vol] 103 mmol/L 98 - 109 mmol/L [facility] CO2 [Moles/Vol] 23 mmol/L 22 - 32 mmol/L [facility] Creatinine [Mass/Vol] 2.69 mg/dL High 0.60 - 1.30 mg/dL [facility] eGFR (CKD-EPI)non-race dependent 25 Low - PINF [facility] Glucose [Mass/Vol] 161 mg/dL High 65 - 99 mg/dL [facility] Interpretation and review of laboratory results Abnormal [facility] Potassium [Moles/Vol] 4.1 mmol/L 3.5 - 5.0 mmol/L [facility] Protein [Mass/Vol] 5.9 g/dL Low 6.0 - 8.0 g/dL [facility] Sodium [Moles/Vol] 138 mmol/L 134 - 146 mmol/L [facility] Urea nitrogen [Mass/Vol] 25 mg/dL 5 - 27 mg/dL [facility] Glucose Glucometer (BldC) [M ass/Vol]on 05-14-2024 Glucose [Mass/Vol] 197 mg/dL High 65 - 99 mg/dL [facility] Interpretation and review of laboratory results Abnormal [facility] Glucose [Mass/Vol] 197 mg/dL High 65-99 [facility] Glucose [Mass/Vol] 127 mg/dL High 65 - 99 mg/dL [facility] Interpretation and review of laboratory results Abnormal [facility] Glucose [Mass/Vol] 127 mg/dL High 65-99 [facility] Glucose [Mass/Vol] 167 mg/dL High 65 - 99 mg/dL [facility] Interpretation and review of laboratory results Abnormal [facility] Glucose [Mass/Vol] 167 mg/dL High 65-99 [facility] Glucose [Mass/Vol] 148 mg/dL High 65 - 99 mg/dL [facility] Interpretation and review of laboratory results Abnormal [facility] Glucose [Mass/Vol] 148 mg/dL High 65-99 [facility] Glucose [Mass/Vol] 176 mg/dL High 65 - 99 mg/dL [facility] Interpretation and review of laboratory results Abnormal [facility] Glucose [Mass/Vol] 176 mg/dL High 65-99 [facility] MAGNESIUMon 05-14-2024 Magnesium [Mass/Vol] 2.2 mg/dL Normal 1.8-2.6 [facility] Comment on above: Performed By: #### 6 298-4, 65946-6, 2339-0, 49998-9 #### [facility] ([id number]) [address] [place] [address] Magnesiumon 05-14-2024 Magnesium [Mass/Vol] 2.2 mg/dL 1.8 - 2.6 mg/dL [facility] No Panel Informationon 05-14 [facility] PHOSPHORUSon 05-14-2024 Phosphate [Mass/Vol] 3.7 mg/dL Normal 2.4-4.9 [facility] Comment on above: Performed By: #### 6 298-4, 65217-4, 2339-0, 18187-6 #### [facility] ([id number]) [address] [place] [address] Phosphoruson 05-14-2024 Phosphate [Mass/Vol] 3.7 mg/dL 2.4 - 4.9 mg/dL [facility] Amylase, fluidon 05-13-2024 Amylase (Body fld) [Catalytic activity/Vol] U/L U/L [facility] Specimen type Nom (Spec) FLUID [facility] CBC AND AUTO DIFFon 05-13-20 ABSOLUTE BASOPHIL 0.1 X10E9/L Normal 0.0-0.2 [facility] Comment on above: Performed By: #### C THEO, 39754-3, CBC, PINR, HA1C #### [facility] ([id number]) [address], [address] [place] [address] ABSOLUTE NEUTROPHIL 6.2 X10E9/L Normal 1.5-6.6 [facility] Comment on above: Performed By: #### [place], 81629-7, CBC, PINR, HA1C #### [facility] ([id number]) [address], [address] [place] [address] Basophils/100 WBC (Bld) 0.9 % Normal [facility] Comment on above: Performed By: #### C MP, 67574-0, CBC, PINR, HA1C #### [facility] ([id number]) [address], [address] [place] [address] Eosinophils (Bld) [#/Vol] 0.5 10*3/uL High 0.0-0.4 [facility] Comment on above: Performed By: #### C MP, 20294-1, CBC, PINR, HA1C #### [facility] ([id number]) [address] [address] [place] [address] Eosinophils/100 WBC (Bld) 5.7 % Normal [facility] Comment on above: Performed By: #### C THEO, 68052-4, CBC, PINR, HA1C #### [facility] ([id number]) [address] [address] [place] [address] Erythrocyte distribution width (RBC) [Ratio] 13.2 % Normal 11.5-15.0 [facility] Comment on above: Performed By: #### C THEO, 37214-5, CBC, PINR, HA1C #### [facility] ([id number]) [address] [address] [place] [address] Hematocrit (Bld) [Volume fraction] 30.4 % Low 39-49 [facility] Comment on above: Performed By: #### C THEO, 92614-3, CBC, PINR, HA1C #### [facility] ([id number]) [address] [address] [place] [address] Hemoglobin (Bld) [Mass/Vol] 10.7 g/dL Low 13.0-17.0 [facility] Comment on above: Performed By: #### C THEO, 04353-2, CBC, PINR, HA1C #### [facility] ([id number]) [address] [address] Lymphocytes (Bld) [#/Vol] 1.8 10*3/uL Normal 1.0-3.5 [facility] Comment on above: Performed By: #### C MP, 97078-6, CBC, PINR, HA1C #### [facility] ([id number]) [address] [address] [place] [address] Lymphocytes/100 WBC (Bld) 19.8 % Normal [facility] Comment on above: Performed By: #### C THEO, 15525-4, CBC, PINR, HA1C #### [facility] ([id number]) [address], [address] [place] [address] MCH (RBC) [Entitic mass] 32.8 pg Normal 27-34 [facility] Comment on above: Performed By: #### C THEO, 12572-5, CBC, PINR, HA1C #### [facility] ([id number]) [address], [facility] [address] [place] [address] MCHC (RBC) [Mass/Vol] 35.2 g/dL Normal 32-36 [facility] Comment on above: Performed By: #### C THEO, 91014-6, CBC, PINR, HA1C #### [facility] ([id number]) [address], [facility] [address] [place] [address] MCV (RBC) [Entitic vol] 93 fL Normal 80-100 [facility] Comment on above: Performed By: #### C THEO, 20142-6, CBC, PINR, HA1C #### [facility] ([id number]) [address] [address] [place] [address] Monocytes (Bld) [#/Vol] 0.5 10*3/uL Normal 0-0.9 [facility] Comment on above: Performed By: #### C MP, 97697-7, CBC, PINR, HA1C #### [facility] ([id number]) [address] [address] [place] [address] Monocytes/100 WBC (Bld) 5.7 % Normal [facility] Comment on above: Performed By: #### C MP, 59280-7, CBC, PINR, HA1C #### [facility] ([id number]) [address], [facility] [address] [place] [address] Neutrophils/100 WBC (Bld) 67.9 % Normal [facility] Comment on above: Performed By: #### C THEO, 10356-2, CBC, PINR, HA1C #### [facility] ([id number]) [address] [address] Platelet mean volume (Bld) [Entitic vol] 7.5 fL Normal 7-12 [facility] Comment on above: Performed By: #### C THEO, 13216-4, CBC, PINR, HA1C #### [facility] ([id number]) [address] [address] Platelets (Bld) [#/Vol] 192 10*3/uL Normal 150-450 [facility] Comment on above: Performed By: #### C THEO, 35426-6, CBC, PINR, HA1C #### [facility] ([id number]) [address] [address] RBC COUNT 3.26 X10E12/L Low 4.10-5.70 [facility] Comment on above: Performed By: #### C THEO, 29227-8, CBC, PINR, HA1C #### [facility] ([id number]) [address] [address] WBC (Bld) [#/Vol] 9.2 10*3/uL Normal 4.0-11.0 [facility] Comment on above: Performed By: #### C THEO, 55168-8, CBC, PINR, HA1C #### [facility] ([id number]) [address] [address] CBC auto differentialon 10-2 0-2023 Basophils (Bld) [#/Vol] 0.1 10*3/uL [facility] Basophils/100 WBC (Bld) 0.9 % [facility] Eosinophils (Bld) [#/Vol] 0.5 10*3/uL High [facility] Eosinophils/100 WBC (Bld) 5.7 % [facility] Erythrocyte distribution width (RBC) [Ratio] 13.2 % 11.5 - 15.0 % [facility] Hematocrit (Bld) [Volume fraction] 30.4 % Low 39 - 49 % [facility] Hemoglobin (Bld) [Mass/Vol] 10.7 g/dL Low 13.0 - 17.0 g/dL [facility] Interpretation and review of laboratory results Abnormal [facility] Lymphocytes (Bld) [#/Vol] 1.8 10*3/uL [facility] Lymphocytes/100 WBC (Bld) 19.8 % [facility] MCH (RBC) [Entitic mass] 32.8 pg 27 - 34 pg [facility] MCHC (RBC) [Mass/Vol] 35.2 g/dL 32 - 36 g/dL [facility] MCV (RBC) [Entitic vol] 93 fL 80 - 100 fL [facility] Monocytes (Bld) [#/Vol] 0.5 10*3/uL [facility] Monocytes/100 WBC (Bld) 5.7 % [facility] Neutrophils (Bld) [#/Vol] 6.2 10*3/uL [facility] Neutrophils/100 WBC (Bld) 67.9 % [facility] Platelet mean volume (Bld) [Entitic vol] 7.5 fL 7 - 12 fL [facility] Platelets (Bld) [#/Vol] 192 10*3/uL [facility] RBC (Bld) [#/Vol] 3.26 10*6/uL Low [facility] WBC corrected for nucl RBC Auto (Bld) [#/Vol] 9.2 [facility] COMPREHENSIVE METABOLIC PANE Cecilio 05-13-2024 Albumin [Mass/Vol] 3.8 g/dL Normal 3.2-5.3 [facility] Comment on above: Performed By: #### C MP, 34106-2, CBC, PINR, HA1C #### [facility] ([id number]) [address] [place] [address] ALP [Catalytic activity/Vol] 82 U/L Normal 39-130 [facility] Comment on above: Performed By: #### C MP, 89627-8, CBC, PINR, HA1C #### [facility] ([id number]) [address], [address] [place] [address] ALT [Catalytic activity/Vol] 59 U/L High 0-40 [facility] Comment on above: Performed By: #### C MP, 27881-4, CBC, PINR, HA1C #### [facility] ([id number]) [address], [address] [place] [address] Anion gap [Moles/Vol] 10 mmol/L Normal 5-15 [facility] Comment on above: Performed By: #### C THEO, 65374-0, CBC, PINR, HA1C #### [facility] ([id number]) [address], [address] [place] [address] AST [Catalytic activity/Vol] 22 U/L Normal 0-41 [facility] Comment on above: Performed By: #### C THEO, 05083-7, CBC, PINR, HA1C #### [facility] ([id number]) [address], [facility] [address] [place] [address] Bilirubin [Mass/Vol] 0.7 mg/dL Normal 0.3-1.2 [facility] Comment on above: Performed By: #### C MP, 09518-9, CBC, PINR, HA1C #### [facility] ([id number]) [address], [address] [place] [address] Calcium [Mass/Vol] 8.9 mg/dL Normal 8.5-10.5 [facility] Comment on above: Performed By: #### C THEO, 82818-0, CBC, PINR, HA1C #### [facility] ([id number]) [address], [address] [place] [address] Chloride [Moles/Vol] 100 mmol/L Normal 98-109 [facility] Comment on above: Performed By: #### C THEO, 11080-4, CBC, PINR, HA1C #### [facility] ([id number]) [address], [address] [place] [address] CO2 [Moles/Vol] 26 mmol/L Normal 22-32 [facility] Comment on above: Performed By: #### C THEO, 77435-4, CBC, PINR, HA1C #### [facility] ([id number]) [address] [address] [place] [address] Creatinine [Mass/Vol] 2.46 mg/dL High 0.60-1.30 [facility] Comment on above: Result Comment: METH OD TRACEABLE TO IDMS STANDARD Performed By: #### C THEO, 53599-4, CBC, PINR, HA1C #### [facility] ([id number]) [address], [facility] [address] [place] [address] GFR/1.73 sq M.predicted among non-blacks MDRD (S/P/Bld) [Vol rate/Area] 28 mL/min/{1.73_m2} Low >59 [facility] Comment on above: Result Comment: Reported eGFR is based on the CKD-EPI 2020 equation that does not use a race coefficient. Performed By: #### C THEO, 09819-6, CBC, PINR, HA1C #### [facility] ([id number]) [address] [address] [place] [address] Glucose [Mass/Vol] 203 mg/dL High 65-99 [facility] Comment on above: Performed By: #### C THEO, 49437-8, CBC, PINR, HA1C #### [facility] ([id number]) [address] [address] [place] [address] Potassium [Moles/Vol] 3.7 mmol/L Normal 3.5-5.0 [facility] Comment on above: Performed By: #### C MP, 18937-4, CBC, PINR, HA1C #### [facility] ([id number]) [address], [address] [place] [address] Protein [Mass/Vol] 6.1 g/dL Normal 6.0-8.0 [facility] Comment on above: Performed By: #### C MP, 16381-6, CBC, PINR, HA1C #### [facility] ([id number]) [address], [facility] [address] [place] [address] Sodium [Moles/Vol] 136 mmol/L Normal 134-146 [facility] Comment on above: Performed By: #### C MP, 67348-6, CBC, PINR, HA1C #### [facility] ([id number]) [address], [facility] [address] [place] [address] Urea nitrogen [Mass/Vol] 20 mg/dL Normal 5-27 [facility] Comment on above: Performed By: #### C MP, 05880-5, CBC, PINR, HA1C #### [facility] ([id number]) [address], [address] [address] Comprehensive metabolic pane cecilio 05-13-2024 Albumin [Mass/Vol] 3.8 g/dL 3.2 - 5.3 g/dL [facility] ALP [Catalytic activity/Vol] 82 U/L 39 - 130 U/L [facility] ALT No additional P-5'-P [Catalytic activity/Vol] 59 U/L High 0 - 40 U/L [facility] Anion gap [Moles/Vol] 10 mmol/L 5 - 15 mmol/L [facility] AST [Catalytic activity/Vol] 22 U/L 0 - 41 U/L [facility] Bilirubin [Mass/Vol] 0.7 mg/dL 0.3 - 1.2 mg/dL [facility] Calcium [Mass/Vol] 8.9 mg/dL 8.5 - 10. 5 mg/dL [facility] Chloride [Moles/Vol] 100 mmol/L 98 - 109 mmol/L [facility] CO2 [Moles/Vol] 26 mmol/L 22 - 32 mmol/L [facility] Creatinine [Mass/Vol] 2.46 mg/dL High 0.60 - 1.30 mg/dL [facility] eGFR (CKD-EPI)non-race dependent 28 Low - PINF [facility] Glucose [Mass/Vol] 203 mg/dL High 65 - 99 mg/dL [facility] Potassium [Moles/Vol] 3.7 mmol/L 3.5 - 5.0 mmol/L [facility] Protein [Mass/Vol] 6.1 g/dL 6.0 - 8.0 g/dL [facility] Sodium [Moles/Vol] 136 mmol/L 134 - 146 mmol/L [facility] Urea nitrogen [Mass/Vol] 20 mg/dL 5 - 27 mg/dL [facility] FLUID AMYLASEon 05-13-2024 ARIELA SPECIMEN TYPE FLUID Normal [facility] Comment on above: Result Comment: BIBI LIU Performed By: #### C MP, 86513-6, CBC, PINR, HA1C #### [facility] ([id number]) [address], [address] [place] [address] FLUID AMYLASE <10 Normal [facility] Comment on above: Result Comment: The reference interval and other method performance specifications are unavailable for this body fluid. Comparison of this result to serum or plasma is recommended. Performed By: #### C MP, 18421-0, CBC, PINR, HA1C #### [facility] ([id number]) [address], [address] [place] [address] Glucose Glucometer (BldC) [M ass/Vol]on 05-13-2024 Glucose [Mass/Vol] 126 mg/dL High 65 - 99 mg/dL [facility] Interpretation and review of laboratory results Abnormal [facility] Glucose [Mass/Vol] 126 mg/dL High 65-99 [facility] Glucose [Mass/Vol] 114 mg/dL High 65 - 99 mg/dL [facility] Interpretation and review of laboratory results Abnormal [facility] Glucose [Mass/Vol] 114 mg/dL High 65-99 [facility] Glucose [Mass/Vol] 192 mg/dL High 65 - 99 mg/dL [facility] Interpretation and review of laboratory results Abnormal [facility] Glucose [Mass/Vol] 192 mg/dL High 65-99 [facility] Glucose [Mass/Vol] 159 mg/dL High 65 - 99 mg/dL [facility] Interpretation and review of laboratory results Abnormal [facility] Glucose [Mass/Vol] 159 mg/dL High 65-99 [facility] Glucose [Mass/Vol] 133 mg/dL High 65 - 99 mg/dL [facility] Interpretation and review of laboratory results Abnormal [facility] Glucose [Mass/Vol] 133 mg/dL High 65-99 [facility] Glucose [Mass/Vol] 187 mg/dL High 65 - 99 mg/dL [facility] Interpretation and review of laboratory results Abnormal [facility] Glucose [Mass/Vol] 187 mg/dL High 65-99 [facility] MAGNESIUMon 05-13-2024 Magnesium [Mass/Vol] 2.2 mg/dL Normal 1.8-2.6 [facility] Comment on above: Performed By: #### C , 44141-2, CBC, PINR, HA1C #### [facility] ([id number]) [address] [facility], [address] [place] [address] Magnesiumon 05-13-2024 Magnesium [Mass/Vol] 2.2 mg/dL 1.8 - 2.6 mg/dL [facility] No Panel Informationon 05-13 [facility] Interpretation and review of laboratory results Abnormal [facility] PHOSPHORUSon 05-13-2024 Phosphate [Mass/Vol] 4.0 mg/dL Normal 2.4-4.9 [facility] Comment on above: Performed By: #### C THEO, 90599-8, CBC, PINR, HA1C #### [facility] ([id number]) [address], [address] [place] [address] Phosphate [Mass/Vol] 2.1 mg/dL Low 2.4-4.9 [facility] Comment on above: Performed By: #### C THEO, 88466-1, CBC, PINR, HA1C #### [facility] ([id number]) [address], [address] [place] [address] POTASSIUMon 05-13-2024 Potassium [Moles/Vol] 3.8 mmol/L Normal 3.5-5.0 [facility] Comment on above: Performed By: #### 6 298-4, 82070-4, 2339-0, 35754-8 #### [facility] ([id number]) [address] [place] [address] Potassium [Moles/Vol] 3.6 mmol/L Normal 3.5-5.0 [facility] Comment on above: Performed By: #### C THEO, 27027-3, CBC, PINR, HA1C #### [facility] ([id number]) [address], [address] [place] [address] Phosphoruson 05-13-2024 Phosphate [Mass/Vol] 4 mg/dL 2.4 - 4.9 mg/dL [facility] Phosphate [Mass/Vol] 2.1 mg/dL Low 2.4 - 4.9 mg/dL [facility] Potassiumon 05-13-2024 Potassium [Moles/Vol] 3.8 mmol/L 3.5 - 5.0 mmol/L [facility] Potassium [Moles/Vol] 3.6 mmol/L 3.5 - 5.0 mmol/L [facility] Potassium [Moles/Vol]on 04-25 [facility] CBC AND AUTO DIFFon 05-12-20 ABSOLUTE BASOPHIL 0.2 X10E9/L Normal 0.0-0.2 [facility] Comment on above: Performed By: #### C THEO, 83273-3, CBC, PINR, HA1C #### [facility] ([id number]) [address], [address] [place] [address] ABSOLUTE NEUTROPHIL 5.9 X10E9/L Normal 1.5-6.6 [facility] Comment on above: Performed By: #### C THEO, 90906-2, CBC, PINR, HA1C #### [facility] ([id number]) [address], [address] [place] [address] Basophils/100 WBC (Bld) 1.8 % Normal [facility] Comment on above: Performed By: #### C THEO, 60393-4, CBC, PINR, HA1C #### [facility] ([id number]) [address], [address] [place] [address] Eosinophils (Bld) [#/Vol] 0.4 10*3/uL Normal 0.0-0.4 [facility] Comment on above: Performed By: #### C THEO, 08313-7, CBC, PINR, HA1C #### [facility] ([id number]) [address] [address] [place] [address] Eosinophils/100 WBC (Bld) 5.2 % Normal [facility] Comment on above: Performed By: #### C THEO, 69532-0, CBC, PINR, HA1C #### [facility] ([id number]) [address] [address] [place] [address] Erythrocyte distribution width (RBC) [Ratio] 13.1 % Normal 11.5-15.0 [facility] Comment on above: Performed By: #### C THEO, 15495-0, CBC, PINR, HA1C #### [facility] ([id number]) [address], [address] [place] [address] Hematocrit (Bld) [Volume fraction] 27.3 % Low 39-49 [facility] Comment on above: Performed By: #### C THEO, 15383-4, CBC, PINR, HA1C #### [facility] [facility] ([id number]) [address], [address] [place] [address] Hemoglobin (Bld) [Mass/Vol] 9.7 g/dL Low 13.0-17.0 [facility] Comment on above: Performed By: #### C THEO, 05305-1, CBC, PINR, HA1C #### [facility] ([id number]) [address], [facility] [address] [place] [address] Lymphocytes (Bld) [#/Vol] 1.6 10*3/uL Normal 1.0-3.5 [facility] Comment on above: Performed By: #### C THEO, 23954-3, CBC, PINR, HA1C #### [facility] ([id number]) [address], [address] [place] [address] Lymphocytes/100 WBC (Bld) 18.3 % Normal [facility] Comment on above: Performed By: #### C THEO, 85994-8, CBC, PINR, HA1C #### [facility] ([id number]) [address], [facility] [address] [place] [address] MCH (RBC) [Entitic mass] 33.2 pg Normal 27-34 [facility] Comment on above: Performed By: #### C THEO, 03834-5, CBC, PINR, HA1C #### [facility] ([id number]) [address], [address] [place] [address] MCHC (RBC) [Mass/Vol] 35.5 g/dL Normal 32-36 [facility] Comment on above: Performed By: #### C THEO, 34365-8, CBC, PINR, HA1C #### [facility] ([id number]) [address], [address] [place] [address] MCV (RBC) [Entitic vol] 94 fL Normal 80-100 [facility] Comment on above: Performed By: #### C MP, 56635-5, CBC, PINR, HA1C #### [facility] ([id number]) [address], [address] [place] [address] Monocytes (Bld) [#/Vol] 0.4 10*3/uL Normal 0-0.9 [facility] Comment on above: Performed By: #### C MP, 53586-9, CBC, PINR, HA1C #### [facility] ([id number]) [address], [address] [place] [address] Monocytes/100 WBC (Bld) 4.8 % Normal [facility] Comment on above: Performed By: #### C MP, 59559-0, CBC, PINR, HA1C #### [facility] ([id number]) [address], [facility] [address] [place] [address] Neutrophils/100 WBC (Bld) 69.9 % Normal [facility] Comment on above: Performed By: #### C MP, 79335-1, CBC, PINR, HA1C #### [facility] ([id number]) [address], [address] [place] [address] Platelet mean volume (Bld) [Entitic vol] 7.0 fL Normal 7-12 [facility] Comment on above: Performed By: #### C MP, 94005-3, CBC, PINR, HA1C #### [facility] ([id number]) [address], [address] [place] [address] Platelets (Bld) [#/Vol] 148 10*3/uL Low 150-450 [facility] Comment on above: Performed By: #### C MP, 78656-5, CBC, PINR, HA1C #### [facility] ([id number]) [address], [address] [place] [address] RBC COUNT 2.92 X10E12/L Low 4.10-5.70 [facility] Comment on above: Performed By: #### C MP, 90448-0, CBC, PINR, HA1C #### [facility] ([id number]) [address], [address] [place] [address] WBC (Bld) [#/Vol] 8.5 10*3/uL Normal 4.0-11.0 [facility] Comment on above: Performed By: #### C MP, 16118-9, CBC, PINR, HA1C #### [facility] ([id number]) [address], [address] [place] [address] CBC auto differentialon 04-24 Basophils (Bld) [#/Vol] 0.2 10*3/uL [facility] Basophils/100 WBC (Bld) 1.8 % [facility] Eosinophils (Bld) [#/Vol] 0.4 10*3/uL [facility] Eosinophils/100 WBC (Bld) 5.2 % [facility] Erythrocyte distribution width (RBC) [Ratio] 13.1 % 11.5 - 15.0 % [facility] Hematocrit (Bld) [Volume fraction] 27.3 % Low 39 - 49 % [facility] Hemoglobin (Bld) [Mass/Vol] 9.7 g/dL Low 13.0 - 17.0 g/dL [facility] Interpretation and review of laboratory results Abnormal [facility] Lymphocytes (Bld) [#/Vol] 1.6 10*3/uL [facility] Lymphocytes/100 WBC (Bld) 18.3 % [facility] MCH (RBC) [Entitic mass] 33.2 pg 27 - 34 pg [facility] MCHC (RBC) [Mass/Vol] 35.5 g/dL 32 - 36 g/dL [facility] MCV (RBC) [Entitic vol] 94 fL 80 - 100 fL [facility] Monocytes (Bld) [#/Vol] 0.4 10*3/uL [facility] Monocytes/100 WBC (Bld) 4.8 % [facility] Neutrophils (Bld) [#/Vol] 5.9 10*3/uL [facility] Neutrophils/100 WBC (Bld) 69.9 % [facility] Platelet mean volume (Bld) [Entitic vol] 7 fL 7 - 12 fL [facility] Platelets (Bld) [#/Vol] 148 10*3/uL Low [facility] RBC (Bld) [#/Vol] 2.92 10*6/uL Low [facility] dica [facility] WBC corrected for nucl RBC Auto (Bld) [#/Vol] 8.5 [facility] COMPREHENSIVE METABOLIC PANE Cecilio 05-12-2024 Albumin [Mass/Vol] 3.5 g/dL Normal 3.2-5.3 [facility] Comment on above: Performed By: #### C THEO, 82015-6, CBC, PINR, HA1C #### [facility] ([id number]) [address], [address] [place] [address] ALP [Catalytic activity/Vol] 78 U/L Normal 39-130 [facility] Comment on above: Performed By: #### C THEO, 88013-0, CBC, PINR, HA1C #### [facility] ([id number]) [address], [address] [place] [address] ALT [Catalytic activity/Vol] 84 U/L High 0-40 [facility] Comment on above: Performed By: #### C THEO, 84639-7, CBC, PINR, HA1C #### [facility] ([id number]) [address], [address] [place] [address] Anion gap [Moles/Vol] 10 mmol/L Normal 5-15 [facility] Comment on above: Performed By: #### C THEO, 44535-8, CBC, PINR, HA1C #### [facility] ([id number]) [address], [address] [place] [address] AST [Catalytic activity/Vol] 33 U/L Normal 0-41 [facility] Comment on above: Performed By: #### C MP, 36652-3, CBC, PINR, HA1C #### [facility] ([id number]) [address], [address] [place] [address] Bilirubin [Mass/Vol] 0.7 mg/dL Normal 0.3-1.2 [facility] Comment on above: Performed By: #### C MP, 15367-5, CBC, PINR, HA1C #### [facility] ([id number]) [address], [address] [place] [address] Calcium [Mass/Vol] 8.4 mg/dL Low 8.5-10.5 [facility] Comment on above: Performed By: #### C MP, 34022-3, CBC, PINR, HA1C #### [facility] ([id number]) [address], [address] [place] [address] Chloride [Moles/Vol] 103 mmol/L Normal 98-109 [facility] Comment on above: Performed By: #### C MP, 73425-4, CBC, PINR, HA1C #### [facility] ([id number]) [address], [address] [place] [address] CO2 [Moles/Vol] 24 mmol/L Normal 22-32 [facility] Comment on above: Performed By: #### C MP, 68535-7, CBC, PINR, HA1C #### [facility] ([id number]) [address], [address] [place] [address] Creatinine [Mass/Vol] 3.39 mg/dL High 0.60-1.30 [facility] Comment on above: Result Comment: METH OD TRACEABLE TO IDMS STANDARD Performed By: #### C MP, 66493-4, CBC, PINR, HA1C #### [facility] ([id number]) [address], [address] [place] [address] GFR/1.73 sq M.predicted among non-blacks MDRD (S/P/Bld) [Vol rate/Area] 19 mL/min/{1.73_m2} Low >59 [facility] Comment on above: Result Comment: Reported eGFR is based on the CKD-EPI 2020 equation that does not use a race coefficient. Performed By: #### C MP, 05025-7, CBC, PINR, HA1C #### [facility] ([id number]) [address], [address] [place] [address] Glucose [Mass/Vol] 160 mg/dL High 65-99 [facility] Comment on above: Performed By: #### C THEO, 78512-0, CBC, PINR, HA1C #### [facility] ([id number]) [address] [address] [place] [address] Potassium [Moles/Vol] 3.8 mmol/L Normal 3.5-5.0 [facility] Comment on above: Performed By: #### C MP, 57593-7, CBC, PINR, HA1C #### [facility] ([id number]) [address] [address] [place] [address] Protein [Mass/Vol] 5.5 g/dL Low 6.0-8.0 [facility] Comment on above: Performed By: #### C MP, 34454-2, CBC, PINR, HA1C #### [facility] ([id number]) [address] [address] [place] [address] Sodium [Moles/Vol] 137 mmol/L Normal 134-146 [facility] Comment on above: Performed By: #### C MP, 65299-3, CBC, PINR, HA1C #### [facility] ([id number]) [address], [address] [place] [address] Urea nitrogen [Mass/Vol] 33 mg/dL High 5-27 [facility] Comment on above: Performed By: #### C MP, 54535-3, CBC, PINR, HA1C #### [facility] ([id number]) [address], [address] [place] [address] Comprehensive metabolic pane cecilio 05-12-2024 Albumin [Mass/Vol] 3.5 g/dL 3.2 - 5.3 g/dL [facility] ALP [Catalytic activity/Vol] 78 U/L 39 - 130 U/L [facility] ALT No additional P-5'-P [Catalytic activity/Vol] 84 U/L High 0 - 40 U/L [facility] Anion gap [Moles/Vol] 10 mmol/L 5 - 15 mmol/L [facility] AST [Catalytic activity/Vol] 33 U/L 0 - 41 U/L [facility] Bilirubin [Mass/Vol] 0.7 mg/dL 0.3 - 1.2 mg/dL [facility] Calcium [Mass/Vol] 8.4 mg/dL Low 8.5 - 10. 5 mg/dL [facility] Chloride [Moles/Vol] 103 mmol/L 98 - 109 mmol/L [facility] CO2 [Moles/Vol] 24 mmol/L 22 - 32 mmol/L [facility] Creatinine [Mass/Vol] 3.39 mg/dL High 0.60 - 1.30 mg/dL [facility] eGFR (CKD-EPI)non-race dependent 19 Low - PINF [facility] Glucose [Mass/Vol] 160 mg/dL High 65 - 99 mg/dL [facility] Interpretation and review of laboratory results Abnormal [facility] Potassium [Moles/Vol] 3.8 mmol/L 3.5 - 5.0 mmol/L [facility] Protein [Mass/Vol] 5.5 g/dL Low 6.0 - 8.0 g/dL [facility] Sodium [Moles/Vol] 137 mmol/L 134 - 146 mmol/L [facility] Urea nitrogen [Mass/Vol] 33 mg/dL High 5 - 27 mg/dL [facility] Crossmatch RBC:on 05-12-2024 [facility] Glucose Glucometer (BldC) [M ass/Vol]on 05-12-2024 Glucose [Mass/Vol] 191 mg/dL High 65 - 99 mg/dL [facility] Interpretation and review of laboratory results Abnormal [facility] Glucose [Mass/Vol] 191 mg/dL High 65-99 [facility] Glucose [Mass/Vol] 154 mg/dL High 65 - 99 mg/dL [facility] Interpretation and review of laboratory results Abnormal [facility] Glucose [Mass/Vol] 154 mg/dL High 65-99 [facility] Glucose [Mass/Vol] 176 mg/dL High 65 - 99 mg/dL [facility] Interpretation and review of laboratory results Abnormal [facility] Glucose [Mass/Vol] 176 mg/dL High 65-99 [facility] Glucose [Mass/Vol] 112 mg/dL High 65 - 99 mg/dL [facility] Interpretation and review of laboratory results Abnormal [facility] Glucose [Mass/Vol] 112 mg/dL High 65-99 [facility] Glucose [Mass/Vol] 146 mg/dL High 65 - 99 mg/dL [facility] Interpretation and review of laboratory results Abnormal [facility] Glucose [Mass/Vol] 146 mg/dL High 65-99 [facility] Glucose [Mass/Vol] 164 mg/dL High 65 - 99 mg/dL [facility] Interpretation and review of laboratory results Abnormal [facility] Glucose [Mass/Vol] 164 mg/dL High 65-99 [facility] Hemodialysis inpatienton [facility] MAGNESIUMon 05-12-2024 Magnesium [Mass/Vol] 2.2 mg/dL Normal 1.8-2.6 [facility] Comment on above: Performed By: #### C [place], 88106-2, CBC, PINR, HA1C #### [facility] ([id number]) [address], [address] [place] [address] Magnesiumon 05-12-2024 Magnesium [Mass/Vol] 2.2 mg/dL 1.8 - 2.6 mg/dL [facility] No Panel Informationon 05-12 [facility] PHOSPHORUSon 05-12-2024 Phosphate [Mass/Vol] 2.7 mg/dL Normal 2.4-4.9 [facility] Comment on above: Performed By: #### C MP, 12212-0, CBC, PINR, HA1C #### [facility] ([id number]) [address], [address] [place] [address] POTASSIUMon 05-12-2024 Potassium [Moles/Vol] 3.9 mmol/L Normal 3.5-5.0 [facility] Comment on above: Performed By: #### C MP, 93251-3, CBC, PINR, HA1C #### [facility] ([id number]) [address], [address] [place] [address] Phosphoruson 05-12-2024 Phosphate [Mass/Vol] 2.7 mg/dL 2.4 - 4.9 mg/dL [facility] Potassiumon 05-12-2024 Potassium [Moles/Vol] 3.9 mmol/L 3.5 - 5.0 mmol/L [facility] Potassium [Moles/Vol]on 04-24 [facility] Troponin I, High Sensitivity on 05-12-2024 Troponin I.cardiac High sensitivity method [Mass/Vol] 36 ng/L High NINF - 21 ng/L [facility] Troponin I, High Sensitivity 1 Houron 05-12-2024 Troponin I.cardiac High sensitivity method [Mass/Vol] 33 ng/L High NINF - 21 ng/L [facility] Troponin I.cardiac High sens itivity method [Mass/Vol]on 05-12-2024 Interpretation and review of laboratory results Abnormal [facility] Interpretation and review of laboratory results Abnormal [facility] 1 HOUR TROP I, HIGH SENSITIVITY 33 ng/L High <21 [facility] Comment on above: Result Comment: Elevations of hs-Troponin may be due to causes other than myocardial ischemia. Recommend serial hs-Troponin testing be performed. For the initial evaluation and management of chest pain patients, refer to the algorithms linked below. Emergency Patient: [email or web address]/dv/[email or web address] Inpatient: [email or web address]&uh= [email or web address] Performed By: #### C MP, 20395-8, CBC, PINR, HA1C #### [facility] ([id number]) [address] [facility] [place] [address] TROPONIN I, HIGH SENSITIVITY 36 ng/L High <21 [facility] Comment on above: Result Comment: Elevations of hs-Troponin may be due to causes other than myocardial ischemia. Recommend serial hs-Troponin testing be performed. For the initial evaluation and management of chest pain patients, refer to the algorithms linked below. Emergency Patient: [email or web address].[email or web address]/dv/[email or web address] Inpatient: [email or web address]&uh= [email or web address] Performed By: #### C MP, 65546-8, CBC, PINR, HA1C #### [facility] ([id number]) [address], [address] [place] [address] XR CHEST 1 VWon 05-12-2024 XR CHEST 1 VW XR CHEST 1 VW HISTORY: Chest pain COMPARISON: Chest x-ray 02/03/2024 FINDINGS: Portable AP semiupright view of the chest was performed. Enteric feeding tube extends into the stomach with tip not included in the [id number]. A tunneled right jugular dialysis catheter tip overlies the cavoatrial junction. Cardiac silhouette is grossly within normal limits. Bibasilar airspace disease. No significant vascular congestion, pleural effusion or pneumothorax. Surgical clips overlie the right upper quadrant. IMPRESSION: * Bibasilar atelectasis versus pneumonia. Finalized by Renato De La Torre MD on 05/12/2024 7:49 PM Normal [facility] XR Chest Single viewon 05-12 [facility] Radiology Study observation (narrative) [facility] XR Chest Single viewOrdered By: Renato De La Torre on 05-12-2024 [facility] Work Phone: CBC AND AUTO DIFFon 05-11-20 ABSOLUTE BASOPHIL 0.1 X10E9/L Normal 0.0-0.2 [facility] Comment on above: Performed By: #### C MP, 65432-1, CBC, PINR, HA1C #### [facility] ([id number]) [address], [address] [place] [address] ABSOLUTE NEUTROPHIL 7.2 X10E9/L High 1.5-6.6 [facility] Comment on above: Performed By: #### C MP, 08093-9, CBC, PINR, HA1C #### [facility] ([id number]) [address], [address] [place] [address] Basophils/100 WBC (Bld) 1.6 % Normal [facility] Comment on above: Performed By: #### C MP, 19041-0, CBC, PINR, HA1C #### [facility] ([id number]) [address], [address] [place] [address] Eosinophils (Bld) [#/Vol] 0.1 10*3/uL Normal 0.0-0.4 [facility] Comment on above: Performed By: #### C MP, 35697-8, CBC, PINR, HA1C #### [facility] ([id number]) [address], [address] [place] [address] Eosinophils/100 WBC (Bld) 1.2 % Normal [facility] Comment on above: Performed By: #### C THEO, 95182-1, CBC, PINR, HA1C #### [facility] ([id number]) [address] [address] [place] [address] Erythrocyte distribution width (RBC) [Ratio] 13.5 % Normal 11.5-15.0 [facility] Comment on above: Performed By: #### C THEO, 72138-6, CBC, PINR, HA1C #### [facility] ([id number]) [address] [address] [place] [address] Hematocrit (Bld) [Volume fraction] 27.9 % Low 39-49 [facility] Comment on above: Performed By: #### C THEO, 06143-1, CBC, PINR, HA1C #### [facility] ([id number]) [address] [address] [place] [address] Hemoglobin (Bld) [Mass/Vol] 9.8 g/dL Low 13.0-17.0 [facility] Comment on above: Performed By: #### C THEO, 10904-0, CBC, PINR, HA1C #### [facility] ([id number]) [address] [address] Lymphocytes (Bld) [#/Vol] 1.4 10*3/uL Normal 1.0-3.5 [facility] Comment on above: Performed By: #### C THEO, 46286-2, CBC, PINR, HA1C #### [facility] ([id number]) [address] [address] Lymphocytes/100 WBC (Bld) 15.0 % Normal [facility] Comment on above: Performed By: #### C THEO, 28695-0, CBC, PINR, HA1C #### [facility] ([id number]) [address], [address] [place] [address] MCH (RBC) [Entitic mass] 33.2 pg Normal 27-34 [facility] Comment on above: Performed By: #### C MP, 40272-1, CBC, PINR, HA1C #### [facility] ([id number]) [address], [facility] [address] [place] [address] MCHC (RBC) [Mass/Vol] 35.3 g/dL Normal 32-36 [facility] Comment on above: Performed By: #### C THEO, 43205-9, CBC, PINR, HA1C #### [facility] ([id number]) [address], [address] [place] [address] MCV (RBC) [Entitic vol] 94 fL Normal 80-100 [facility] Comment on above: Performed By: #### C MP, 81618-0, CBC, PINR, HA1C #### [facility] ([id number]) [address] [place] [address] Monocytes (Bld) [#/Vol] 0.4 10*3/uL Normal 0-0.9 [facility] Comment on above: Performed By: #### C MP, 52227-9, CBC, PINR, HA1C #### [facility] ([id number]) [address], [facility] [address] [place] [address] Monocytes/100 WBC (Bld) 4.5 % Normal [facility] Comment on above: Performed By: #### C MP, 67455-9, CBC, PINR, HA1C #### [facility] ([id number]) [address] [place] [address] Neutrophils/100 WBC (Bld) 77.7 % Normal [facility] Comment on above: Performed By: #### C MP, 34202-4, CBC, PINR, HA1C #### [facility] ([id number]) [address], [address] [place] [address] Platelet mean volume (Bld) [Entitic vol] 7.0 fL Normal 7-12 [facility] Comment on above: Performed By: #### C THEO, 07829-2, CBC, PINR, HA1C #### [facility] ([id number]) [address] [address] Platelets (Bld) [#/Vol] 155 10*3/uL Normal 150-450 [facility] Comment on above: Performed By: #### C THEO, 68880-6, CBC, PINR, HA1C #### [facility] ([id number]) [address] [address] RBC COUNT 2.97 X10E12/L Low 4.10-5.70 [facility] Comment on above: Performed By: #### Kathleen VENEGAS, 49921-5, CBC, PINR, HA1C #### [facility] ([id number]) [address] [address] WBC (Bld) [#/Vol] 9.2 10*3/uL Normal 4.0-11.0 [facility] Comment on above: Performed By: #### Kathleen VENEGAS, 57246-2, CBC, PINR, HA1C #### [facility] ([id number]) [address] [address] CBC auto differentialon 04-24 Basophils (Bld) [#/Vol] 0.1 10*3/uL [facility] Basophils/100 WBC (Bld) 1.6 % [facility] Eosinophils (Bld) [#/Vol] 0.1 10*3/uL [facility] Eosinophils/100 WBC (Bld) 1.2 % [facility] Erythrocyte distribution width (RBC) [Ratio] 13.5 % 11.5 - 15.0 % [facility] Hematocrit (Bld) [Volume fraction] 27.9 % Low 39 - 49 % [facility] Hemoglobin (Bld) [Mass/Vol] 9.8 g/dL Low 13.0 - 17.0 g/dL [facility] Interpretation and review of laboratory results Abnormal [facility] Lymphocytes (Bld) [#/Vol] 1.4 10*3/uL [facility] Lymphocytes/100 WBC (Bld) 15 % [facility] MCH (RBC) [Entitic mass] 33.2 pg 27 - 34 pg [facility] MCHC (RBC) [Mass/Vol] 35.3 g/dL 32 - 36 g/dL [facility] MCV (RBC) [Entitic vol] 94 fL 80 - 100 fL [facility] Monocytes (Bld) [#/Vol] 0.4 10*3/uL [facility] Monocytes/100 WBC (Bld) 4.5 % [facility] Neutrophils (Bld) [#/Vol] 7.2 10*3/uL High [facility] Neutrophils/100 WBC (Bld) 77.7 % [facility] Platelet mean volume (Bld) [Entitic vol] 7 fL 7 - 12 fL [facility] Platelets (Bld) [#/Vol] 155 10*3/uL [facility] RBC (Bld) [#/Vol] 2.97 10*6/uL Low [facility] WBC corrected for nucl RBC Auto (Bld) [#/Vol] 9.2 [facility] COMPREHENSIVE METABOLIC PANE Cecilio 05-11-2024 Albumin [Mass/Vol] 3.7 g/dL Normal 3.2-5.3 [facility] Comment on above: Performed By: #### C MP, 85567-0, CBC, PINR, HA1C #### [facility] ([id number]) [address] [facility] [place] [address] ALP [Catalytic activity/Vol] 78 U/L Normal 39-130 [facility] [facility] Comment on above: Performed By: #### C [place], 01887-0, CBC, PINR, HA1C #### [facility] ([id number]) [address], [address] [place] [address] ALT [Catalytic activity/Vol] 153 U/L High 0-40 [facility] Comment on above: Performed By: #### C MP, 37771-6, CBC, PINR, HA1C #### [facility] ([id number]) [address], [address] [place] [address] Anion gap [Moles/Vol] 11 mmol/L Normal 5-15 [facility] Comment on above: Performed By: #### C THEO, 50175-2, CBC, PINR, HA1C #### [facility] ([id number]) [address], [address] [place] [address] AST [Catalytic activity/Vol] 73 U/L High 0-41 [facility] Comment on above: Performed By: #### C THEO, 33454-4, CBC, PINR, HA1C #### [facility] ([id number]) [address], [address] [place] [address] Bilirubin [Mass/Vol] 0.8 mg/dL Normal 0.3-1.2 [facility] Comment on above: Performed By: #### [place], 67885-2, CBC, PINR, HA1C #### [facility] ([id number]) [address], [address] [place] [address] Calcium [Mass/Vol] 8.8 mg/dL Normal 8.5-10.5 [facility] Comment on above: Performed By: #### C MP, 37448-3, CBC, PINR, HA1C #### [facility] ([id number]) [address], [address] [place] [address] Chloride [Moles/Vol] 101 mmol/L Normal 98-109 [facility] Comment on above: Performed By: #### C MP, 53185-3, CBC, PINR, HA1C #### [facility] ([id number]) [address], [address] [place] [address] CO2 [Moles/Vol] 22 mmol/L Normal 22-32 [facility] Comment on above: Performed By: #### C MP, 62515-7, CBC, PINR, HA1C #### [facility] ([id number]) [address], [facility] [address] [place] [address] Creatinine [Mass/Vol] 3.04 mg/dL High 0.60-1.30 [facility] Comment on above: Result Comment: METH OD TRACEABLE TO IDMS STANDARD Performed By: #### C THEO, 00413-1, CBC, PINR, HA1C #### [facility] ([id number]) [address] [address] GFR/1.73 sq M.predicted among non-blacks MDRD (S/P/Bld) [Vol rate/Area] 22 mL/min/{1.73_m2} Low >59 [facility] Comment on above: Result Comment: Reported eGFR is based on the CKD-EPI 2020 equation that does not use a race coefficient. Performed By: #### C THEO, 13940-7, CBC, PINR, HA1C #### [facility] ([id number]) [address] [address] Glucose [Mass/Vol] 181 mg/dL High 65-99 [facility] Comment on above: Performed By: #### C THEO, 72451-7, CBC, PINR, HA1C #### [facility] ([id number]) [address] [address] [place] [address] Potassium [Moles/Vol] 4.1 mmol/L Normal 3.5-5.0 [facility] Comment on above: Performed By: #### C THEO, 69091-6, CBC, PINR, HA1C #### [facility] ([id number]) [address] [place] [address] Protein [Mass/Vol] 5.6 g/dL Low 6.0-8.0 [facility] Comment on above: Performed By: #### C THEO, 38170-9, CBC, PINR, HA1C #### [facility] ([id number]) [address], [address] [place] [address] Sodium [Moles/Vol] 134 mmol/L Normal 134-146 [facility] Comment on above: Performed By: #### C THEO, 59084-8, CBC, PINR, HA1C #### [facility] ([id number]) [address], [address] [place] [address] Urea nitrogen [Mass/Vol] 28 mg/dL High 5-27 [facility] Comment on above: Performed By: #### C THEO, 10414-6, CBC, PINR, HA1C #### [facility] ([id number]) [address], [address] [place] [address] Comprehensive metabolic pane cecilio 05-11-2024 Albumin [Mass/Vol] 3.7 g/dL 3.2 - 5.3 g/dL [facility] ALP [Catalytic activity/Vol] 78 U/L 39 - 130 U/L [facility] ALT No additional P-5'-P [Catalytic activity/Vol] 153 U/L High 0 - 40 U/L [facility] Anion gap [Moles/Vol] 11 mmol/L 5 - 15 mmol/L [facility] AST [Catalytic activity/Vol] 73 U/L High 0 - 41 U/L [facility] Bilirubin [Mass/Vol] 0.8 mg/dL 0.3 - 1.2 mg/dL [facility] Calcium [Mass/Vol] 8.8 mg/dL 8.5 - 10. 5 mg/dL [facility] Chloride [Moles/Vol] 101 mmol/L 98 - 109 mmol/L [facility] CO2 [Moles/Vol] 22 mmol/L 22 - 32 mmol/L [facility] Creatinine [Mass/Vol] 3.04 mg/dL High 0.60 - 1.30 mg/dL [facility] eGFR (CKD-EPI)non-race dependent 22 Low - PINF [facility] Glucose [Mass/Vol] 181 mg/dL High 65 - 99 mg/dL [facility] Interpretation and review of laboratory results Abnormal [facility] Potassium [Moles/Vol] 4.1 mmol/L 3.5 - 5.0 mmol/L [facility] Protein [Mass/Vol] 5.6 g/dL Low 6.0 - 8.0 g/dL [facility] Sodium [Moles/Vol] 134 mmol/L 134 - 146 mmol/L [facility] Urea nitrogen [Mass/Vol] 28 mg/dL High 5 - 27 mg/dL [facility] Glucose Glucometer (BldC) [M ass/Vol]on 05-11-2024 Glucose [Mass/Vol] 156 mg/dL High 65 - 99 mg/dL [facility] Interpretation and review of laboratory results Abnormal [facility] Glucose [Mass/Vol] 156 mg/dL High 65-99 [facility] Glucose [Mass/Vol] 124 mg/dL High 65 - 99 mg/dL [facility] Interpretation and review of laboratory results Abnormal [facility] Glucose [Mass/Vol] 124 mg/dL High 65-99 [facility] Glucose [Mass/Vol] 139 mg/dL High 65 - 99 mg/dL [facility] Interpretation and review of laboratory results Abnormal [facility] Glucose [Mass/Vol] 139 mg/dL High 65-99 [facility] Glucose [Mass/Vol] 199 mg/dL High 65 - 99 mg/dL [facility] Interpretation and review of laboratory results Abnormal [facility] Glucose [Mass/Vol] 199 mg/dL High 65-99 [facility] Glucose [Mass/Vol] 182 mg/dL High 65 - 99 mg/dL [facility] Interpretation and review of laboratory results Abnormal [facility] Glucose [Mass/Vol] 182 mg/dL High 65-99 [facility] Glucose [Mass/Vol] 185 mg/dL High 65 - 99 mg/dL [facility] Interpretation and review of laboratory results Abnormal [facility] Glucose [Mass/Vol] 185 mg/dL High 65-99 [facility] Glucose [Mass/Vol] 170 mg/dL High 65 - 99 mg/dL [facility] Interpretation and review of laboratory results Abnormal [facility] Glucose [Mass/Vol] 170 mg/dL High 65-99 [facility] MAGNESIUMon 05-11-2024 Magnesium [Mass/Vol] 2.1 mg/dL Normal 1.8-2.6 [facility] Comment on above: Performed By: #### C THEO, 08844-7, CBC, PINR, HA1C #### [facility] ([id number]) [address], [address] [place] [address] Magnesiumon 05-11-2024 Magnesium [Mass/Vol] 2.1 mg/dL 1.8 - 2.6 mg/dL [facility] No Panel Informationon 05-11 [facility] PHOSPHORUSon 05-11-2024 Phosphate [Mass/Vol] 3.8 mg/dL Normal 2.4-4.9 [facility] Comment on above: Performed By: #### C THEO, 21102-2, CBC, PINR, HA1C #### [facility] ([id number]) [address], [address] [place] [address] Phosphoruson 05-11-2024 Phosphate [Mass/Vol] 3.8 mg/dL 2.4 - 4.9 mg/dL [facility] CBC AND AUTO DIFFon 05-10-20 24 ABSOLUTE BASOPHIL 0.0 X10E9/L Normal 0.0-0.2 [facility] Comment on above: Performed By: #### C THEO, 96173-7, CBCA, 2777-1 ####[facility] ([id number])[address], [address], [place] [address] ABSOLUTE NEUTROPHIL 9.7 X10E9/L High 1.5-6.6 [facility] Comment on above: Performed By: #### C THEO, , CBCA, 2776- ####[facility] ([id number])[address] [address], [place] [address] Basophils/100 WBC (Bld) 0.3 % Normal [facility] Comment on above: Performed By: #### C THEO, , CBCA, 2776- ####[facility] ([id number])[address] [address], [place] [address] Eosinophils (Bld) [#/Vol] 0.0 10*3/uL Normal 0.0-0.4 [facility] Comment on above: Performed By: #### C THEO, , CBCA, 2776-07 ####[facility] ([id number])[address] [address], [place] [address] Eosinophils/100 WBC (Bld) 0.0 % Normal [facility] Comment on above: Performed By: #### Kathleen VENEGAS, , CBCA, 2776-07 ####[facility] ([id number])[address] [address], [place] [address] Erythrocyte distribution width (RBC) [Ratio] 13.5 % Normal 11.5-15.0 [facility] Comment on above: Performed By: #### C THEO, , CBCA, 2776- ####[facility] ([id number])[address] [address] [address] Hematocrit (Bld) [Volume fraction] 31.6 % Low 39-49 [facility] Comment on above: Performed By: #### C THEO, , CBCA, 2776- ####[facility] ([id number])[address] [address] [address] Hemoglobin (Bld) [Mass/Vol] 10.8 g/dL Low 13.0-17.0 [facility] Comment on above: Performed By: #### C THEO, , CBCA, 2776- ####[facility] ([id number])[address], [address] [place] [address] Lymphocytes (Bld) [#/Vol] 1.6 10*3/uL Normal 1.0-3.5 [facility] Comment on above: Performed By: #### C THEO, , CBCA, 2776- ####[facility] ([id number])[address], [address] [place] [address] Lymphocytes/100 WBC (Bld) 13.6 % Normal [facility] Comment on above: Performed By: #### Kathleen VENEGAS, , CBCA, 2776-07 ####[facility] ([id number])[address], [address] [place] [address] MCH (RBC) [Entitic mass] 32.4 pg Normal 27-34 [facility] Comment on above: Performed By: #### Kathleen VENEGAS, , CBCA, 2776-07 ####[facility] ([id number])[address], [address] [place] [address] MCHC (RBC) [Mass/Vol] 34.2 g/dL Normal 32-36 [facility] Comment on above: Performed By: #### C THEO, , CBCA, 2776- ####[facility] ([id number])[address], [address] [place] [address] MCV (RBC) [Entitic vol] 95 fL Normal 80-100 [facility] Comment on above: Performed By: #### C THEO, , CBCA, 2776- ####[facility] ([id number])[address], [place] [address] Monocytes (Bld) [#/Vol] 0.5 10*3/uL Normal 0-0.9 [facility] Comment on above: Performed By: #### C THEO, 42698-9, CBCA, 277- ####[facility] ([id number])[address], [place] [address] Monocytes/100 WBC (Bld) 4.3 % Normal [facility] Comment on above: Performed By: #### C THEO, , CBCA, 277- ####[facility] ([id number])[address], [place] [address] Neutrophils/100 WBC (Bld) 81.8 % Normal [facility] Comment on above: Performed By: #### C THEO, , CBCA, 2776- ####[facility] ([id number])[address], [place] [address] Platelet mean volume (Bld) [Entitic vol] 7.3 fL Normal 7-12 [facility] Comment on above: Performed By: #### C THEO, , CBCA, 2776- ####[facility] ([id number])[address], [place] [address] Platelets (Bld) [#/Vol] 171 10*3/uL Normal 150-450 [facility] Comment on above: Performed By: #### C THEO, 32093-1, CBCA, 2777- ####[facility] ([id number])[address], [address] [address] RBC COUNT 3.34 X10E12/L Low 4.10-5.70 [facility] Comment on above: Performed By: #### C THEO, 60396-1, CBCA, 277-1 ####[facility] ([id number])[address], [place] [address] WBC (Bld) [#/Vol] 11.8 10*3/uL High 4.0-11.0 [facility] Comment on above: Performed By: #### [place], 06403-0, CBCA, 2777-1 ####[facility] ([id number])[address], [address] [place] [address] CBC auto differentialon 04-24 Basophils (Bld) [#/Vol] 0 10*3/uL [facility] Basophils/100 WBC (Bld) 0.3 % [facility] Eosinophils (Bld) [#/Vol] 0 10*3/uL [facility] Eosinophils/100 WBC (Bld) 0 % [facility] Erythrocyte distribution width (RBC) [Ratio] 13.5 % 11.5 - 15.0 % [facility] Hematocrit (Bld) [Volume fraction] 31.6 % Low 39 - 49 % [facility] Hemoglobin (Bld) [Mass/Vol] 10.8 g/dL Low 13.0 - 17.0 g/dL [facility] Interpretation and review of laboratory results Abnormal [facility] Lymphocytes (Bld) [#/Vol] 1.6 10*3/uL [facility] Lymphocytes/100 WBC (Bld) 13.6 % [facility] MCH (RBC) [Entitic mass] 32.4 pg 27 - 34 pg [facility] MCHC (RBC) [Mass/Vol] 34.2 g/dL 32 - 36 g/dL [facility] MCV (RBC) [Entitic vol] 95 fL 80 - 100 fL [facility] Monocytes (Bld) [#/Vol] 0.5 10*3/uL [facility] Monocytes/100 WBC (Bld) 4.3 % [facility] Neutrophils (Bld) [#/Vol] 9.7 10*3/uL High [facility] Neutrophils/100 WBC (Bld) 81.8 % [facility] Platelet mean volume (Bld) [Entitic vol] 7.3 fL 7 - 12 fL [facility] Platelets (Bld) [#/Vol] 171 10*3/uL [facility] RBC (Bld) [#/Vol] 3.34 10*6/uL Low [facility] WBC corrected for nucl RBC Auto (Bld) [#/Vol] 11.8 High [facility] COMPREHENSIVE METABOLIC PANE Cecilio 05-10-2024 Albumin [Mass/Vol] 3.8 g/dL Normal 3.2-5.3 [facility] Comment on above: Performed By: #### C THEO, 87285-2, CBCA, 2777-1 ####[facility] ([id number])[address], [place] [address] ALP [Catalytic activity/Vol] 100 U/L Normal 39-130 [facility] Comment on above: Performed By: #### C THEO, 99807-1, CBCA, 7-1 ####[facility] ([id number])[address], [place] [address] ALT [Catalytic activity/Vol] 219 U/L High 0-40 [facility] Comment on above: Performed By: #### C THOE, 69913-9, CBCA, 2777-1 ####[facility] ([id number])[address], [place] [address] Anion gap [Moles/Vol] 10 mmol/L Normal 5-15 [facility] Comment on above: Performed By: #### C THEO, 36760-1, CBCA, 2777-1 ####[facility] ([id number])[address], [place] [address] AST [Catalytic activity/Vol] 156 U/L High 0-41 [facility] Comment on above: Performed By: #### C THEO, 47421-8, CBCA, 2777-1 ####[facility] ([id number])[address] [address], [place] [address] Bilirubin [Mass/Vol] 0.7 mg/dL Normal 0.3-1.2 [facility] Comment on above: Performed By: #### C THEO, , CBCA, 2777-1 ####[facility] ([id number])[address] [address], [place] [address] Calcium [Mass/Vol] 8.6 mg/dL Normal 8.5-10.5 [facility] Comment on above: Performed By: #### C THEO, , CBCA, 2777- ####[facility] ([id number])[address] [address], [place] [address] Chloride [Moles/Vol] 108 mmol/L Normal 98-109 [facility] Comment on above: Performed By: #### Kathleen VENEGAS, , CBCA, 7- ####[facility] ([id number])[address] [address] [place] [address] CO2 [Moles/Vol] 20 mmol/L Low 22-32 [facility] Comment on above: Performed By: #### Kathleen VENEGAS, , CBCA, 7- ####[facility] ([id number])[address] [address] [place] [address] Creatinine [Mass/Vol] 3.77 mg/dL High 0.60-1.30 [facility] Comment on above: Result Comment: METH OD TRACEABLE TO IDMS STANDARD Performed By: #### C THEO, , CBCA, 7- ####[facility] ([id number])[address] [address], [place] [address] GFR/1.73 sq M.predicted among non-blacks MDRD (S/P/Bld) [Vol rate/Area] 17 mL/min/{1.73_m2} Low >59 [facility] Comment on above: Result Comment: Reported eGFR is based on the CKD-EPI 2020 equation that does not use a race coefficient. Performed By: #### C THEO, , CBCA, 2776- ####[facility] ([id number])[address], [place] [address] Glucose [Mass/Vol] 169 mg/dL High 65-99 [facility] Comment on above: Performed By: #### C THEO, , CBCA, 2776- ####[facility] ([id number])[address] [address], [place] [address] Potassium [Moles/Vol] 6.2 mmol/L Critically high 3.5-5.0 [facility] Comment on above: Performed By: #### Kathleen VENEGAS, , CBCA, 2776- ####[facility] ([id number])[address], [place] [address] Protein [Mass/Vol] 5.7 g/dL Low 6.0-8.0 [facility] Comment on above: Performed By: #### C THEO, , CBCA, 2776-07 ####[facility] ([id number])[address] [address], [place] [address] Sodium [Moles/Vol] 138 mmol/L Normal 134-146 [facility] Comment on above: Performed By: #### C THEO, , CBCA, 2776- ####[facility] ([id number])[address] [address], [place] [address] Urea nitrogen [Mass/Vol] 45 mg/dL High 5-27 [facility] Comment on above: Performed By: #### C THEO, , CBCA, 2776- ####[facility] ([id number])[address], [place] [address] Cobalamin (Vitamin B12) [Mas s/Vol]on 05-10-2024 [facility] Comprehensive metabolic pane cecilio 05-10-2024 Albumin [Mass/Vol] 3.8 g/dL 3.2 - 5.3 g/dL [facility] ALP [Catalytic activity/Vol] 100 U/L 39 - 130 U/L [facility] ALT No additional P-5'-P [Catalytic activity/Vol] 219 U/L High 0 - 40 U/L [facility] Anion gap [Moles/Vol] 10 mmol/L 5 - 15 mmol/L [facility] AST [Catalytic activity/Vol] 156 U/L High 0 - 41 U/L [facility] Bilirubin [Mass/Vol] 0.7 mg/dL 0.3 - 1.2 mg/dL [facility] Calcium [Mass/Vol] 8.6 mg/dL 8.5 - 10. 5 mg/dL [facility] Chloride [Moles/Vol] 108 mmol/L 98 - 109 mmol/L [facility] CO2 [Moles/Vol] 20 mmol/L Low 22 - 32 mmol/L [facility] Creatinine [Mass/Vol] 3.77 mg/dL High 0.60 - 1.30 mg/dL [facility] eGFR (CKD-EPI)non-race dependent 17 Low - PINF [facility] Glucose [Mass/Vol] 169 mg/dL High 65 - 99 mg/dL [facility] Interpretation and review of laboratory results Abnormal [facility] Potassium [Moles/Vol] 6.2 mmol/L Critically high 3.5 - 5.0 mmol/L [facility] Protein [Mass/Vol] 5.7 g/dL Low 6.0 - 8.0 g/dL [facility] Sodium [Moles/Vol] 138 mmol/L 134 - 146 mmol/L [facility] Urea nitrogen [Mass/Vol] 45 mg/dL High 5 - 27 mg/dL [facility] Crossmatch RBC:on 05-10-2024 BB Type Barcode 6200 [facility] Blood component type [id number] [facility] Expiration Date [facility] Status of unit /RELEASED [facility] Unit ABO A [facility] Unit number [id number] [facility] RH Positive [facility] Electrocardiogram, 12-leadon 05-10-2024 TRACEMASTERVUE [facility] FERRITINon 05-10-2024 Ferritin [Mass/Vol] 1159 ng/mL High 24-336 [facility] Comment on above: Performed By: #### [place], [address]-6, CBC, PINR, HA1C #### [facility] ([id number]) [address] [place] [address] Ferritinon 05-10-2024 Ferritin [Mass/Vol] 1159 ng/mL High 24 - 336 ng/mL [facility] Ferritin [Mass/Vol]on 2023 Interpretation and review of laboratory results Abnormal [facility] Folateon 05-10-2024 Folate [Mass/Vol] 9.4 ng/mL 5.8 - PINF ng/mL [facility] Folate [Mass/Vol]on 05-10-20 24 [facility] FOLIC ACID 9.4 ng/mL Normal >5.8 [facility] Comment on above: Result Comment: NEW REFERENCE RANGE Performed By: #### C THEO, 62847-9, CBC, PINR, HA1C #### [facility] ([id number]) [address] [facility] [place] [address] Glucose Glucometer (BldC) [M ass/Vol]on 05-10-2024 Glucose [Mass/Vol] 146 mg/dL High 65 - 99 mg/dL [facility] Interpretation and review of laboratory results Abnormal [facility] Glucose [Mass/Vol] 146 mg/dL High 65-99 [facility] Glucose [Mass/Vol] 137 mg/dL High 65 - 99 mg/dL [facility] Interpretation and review of laboratory results Abnormal [facility] Glucose [Mass/Vol] 137 mg/dL High 65-99 [facility] Glucose [Mass/Vol] 101 mg/dL High 65 - 99 mg/dL [facility] Interpretation and review of laboratory results Abnormal [facility] Glucose [Mass/Vol] 101 mg/dL High 65-99 [facility] Glucose [Mass/Vol] 186 mg/dL High 65 - 99 mg/dL [facility] Interpretation and review of laboratory results Abnormal [facility] Glucose [Mass/Vol] 186 mg/dL High 65-99 [facility] Glucose [Mass/Vol] 251 mg/dL High 65 - 99 mg/dL [facility] Interpretation and review of laboratory results Abnormal [facility] Glucose [Mass/Vol] 251 mg/dL High 65-99 [facility] Glucose [Mass/Vol] 155 mg/dL High 65 - 99 mg/dL [facility] Interpretation and review of laboratory results Abnormal [facility] Glucose [Mass/Vol] 155 mg/dL High 65-99 [facility] Glucose [Mass/Vol] 162 mg/dL High 65 - 99 mg/dL [facility] Interpretation and review of laboratory results Abnormal [facility] Glucose [Mass/Vol] 162 mg/dL High 65-99 [facility] HGB AND HCTon 05-10-2024 Hematocrit (Bld) [Volume fraction] 30.5 % Low 39-49 [facility] Comment on above: Performed By: #### C THEO, 74682-9, CBC, PINR, HA1C #### [facility] ([id number]) [address], [address] [place] [address] Hemoglobin (Bld) [Mass/Vol] 10.5 g/dL Low 13.0-17.0 [facility] Comment on above: Performed By: #### C THEO, 24940-2, CBC, PINR, HA1C #### [facility] ([id number]) [address], [address] [place] [address] Hemodialysis inpatienton [facility] Hemoglobin and hematocrit, b loodon 05-10-2024 Hematocrit (Bld) [Volume fraction] 30.5 % Low 39 - 49 % [facility] Hemoglobin (Bld) [Mass/Vol] 10.5 g/dL Low 13.0 - 17.0 g/dL [facility] Interpretation and review of laboratory results Abnormal [facility] IRON PROFILEon 05-10-2024 Iron [Mass/Vol] 35 ug/dL Low 50-212 [facility] Comment on above: Performed By: #### C THEO, 37324-3, CBC, PINR, HA1C #### [facility] ([id number]) [address], [address] [place] [address] IRON BINDING 244 ug/dL Low 250-425 [facility] Comment on above: Performed By: #### C THEO, 53592-8, CBC, PINR, HA1C #### [facility] ([id number]) [address], [address] [place] [address] IRON SATURATION 14 % SATURATION Low 20-50 [facility] Comment on above: Performed By: #### [place], [address]-0, CBC, PINR, HA1C #### [facility] ([id number]) [address], [address] [place] [address] Iron and TIBCon 05-10-2024 Interpretation and review of laboratory results Abnormal [facility] Iron [Mass/Vol] 35 ug/dL Low 50 - 212 ug/dL [facility] Iron binding capacity [Mass/Vol] 244 ug/dL Low 250 - 425 ug/dL [facility] Iron saturation [Mass fraction] 14 Low [facility] Lactate (Bld) [Moles/Vol]on 05-10-2024 Lactate [Moles/Vol] 1.8 mmol/L 0.4 - 2. 0 mmol/L [facility] Lactate (P mendoza) [Moles/Vol]o n 05-10-2024 [facility] LACTATE W/REFLEX 2.0 mmol/L Normal 0.4-2.0 [facility] Comment on above: Result Comment: Result did not trigger repeat Lactate, re-order if needed. Performed By: #### 3 3-1 ####[facility] ([id number])[address], [address] [place] [address] [facility] Lactate w/ Reflexon 05-10-20 Lactate (P mendoza) [Moles/Vol] 2 mmol/L 0.4 - 2.0 mmol/L [facility] Lactate (P mendoza) [Moles/Vol] 0.8 mmol/L 0.4 - 2.0 mmol/L [facility] MAGNESIUMon 05-10-2024 Magnesium [Mass/Vol] 2.5 mg/dL Normal 1.8-2.6 [facility] Comment on above: Performed By: #### C HTEO, 19047-0, CBCA, 2777-1 ####[facility] ([id number])[address], [address] [place] [address] Magnesiumon 05-10-2024 Magnesium [Mass/Vol] 2.5 mg/dL 1.8 - 2.6 mg/dL [facility] Natriuretic peptide B [Mass/ Vol]on 05-10-2024 Interpretation and review of laboratory results Abnormal [facility] Natriuretic peptide B (Bld) [Mass/Vol] 566 pg/mL High NINF - 100.0 pg/mL [facility] Natriuretic peptide B (Bld) [Mass/Vol] 566 pg/mL High <100.0 [facility] Comment on above: Performed By: #### C MP, 05616-7, CBC, PINR, HA1C #### [facility] ([id number]) [address], [address] [place] [address] No Panel Informationon 05-10 [facility] PHOSPHORUSon 05-10-2024 Phosphate [Mass/Vol] 4.3 mg/dL Normal 2.4-4.9 [facility] Comment on above: Performed By: #### [place], 17504-3, CBCA, 2777-1 ####[facility] ([id number])[address], [address] [place] [address] POTASSIUMon 05-10-2024 Potassium [Moles/Vol] 5.5 mmol/L High 3.5-5.0 [facility] Comment on above: Performed By: #### [place] MP, 11734-5, CBC, PINR, HA1C #### [facility] ([id number]) [address], [address] [place] [address] Potassium [Moles/Vol] 6.2 mmol/L Critically high 3.5-5.0 [facility] Comment on above: Performed By: #### 2 823-3 ####[facility] ([id number])[address], [address] [place] [address] Phosphoruson 05-10-2024 Phosphate [Mass/Vol] 4.3 mg/dL 2.4 - 4.9 mg/dL [facility] Potassiumon 05-10-2024 Potassium [Moles/Vol] 5.5 mmol/L High 3.5 - 5.0 mmol/L [facility] Potassium [Moles/Vol] 6.2 mmol/L Critically high 3.5 - 5.0 mmol/L [facility] Potassium [Moles/Vol]on 04-24 Interpretation and review of laboratory results Abnormal [facility] Interpretation and review of laboratory results Abnormal [facility] Troponin I, High Sensitivity on 05-10-2024 Troponin I.cardiac High sensitivity method [Mass/Vol] 38 ng/L High NINF - 21 ng/L [facility] Troponin I, High Sensitivity 1 Houron 05-10-2024 Troponin I.cardiac High sensitivity method [Mass/Vol] 33 ng/L High NINF - 21 ng/L [facility] Troponin I.cardiac High sens itivity method [Mass/Vol]on 05-10-2024 Interpretation and review of laboratory results Abnormal [facility] Interpretation and review of laboratory results Abnormal [facility] 1 HOUR TROP I, HIGH SENSITIVITY 33 ng/L High <21 [facility] Comment on above: Result Comment: Elevations of hs-Troponin may be due to causes other than myocardial ischemia. Recommend serial hs-Troponin testing be performed. For the initial evaluation and management of chest pain patients, refer to the algorithms linked below. Emergency Patient: [email or web address].[email or web address]/dv/[email or web address]= [email or web address] Inpatient: [email or web address]/[email or web address]&uh= acaea Performed By: #### [place], 66[address]-1, CBC, PINR, HA1C #### [facility] ([id number]) [address] [facility] [place] [address] TROPONIN I, HIGH SENSITIVITY 38 ng/L High <21 [facility] Comment on above: Result Comment: Elevations of hs-Troponin may be due to causes other than myocardial ischemia. Recommend serial hs-Troponin testing be performed. For the initial evaluation and management of chest pain patients, refer to the algorithms linked below. Emergency Patient: [email or web address]://www.[email or web address]/dv/dl.aspx?[email or web address]= [email or web address] Inpatient: [email or web address]://[email or web address]/dv/dl.[email or web address]&[email or web address]&uh= acaea Performed By: #### 8 9579-7 ####[facility] ([id number])[address] [facility], [address] [place] [address] VITAMIN B12on 05-10-2024 Cobalamin (Vitamin B12) [Mass/Vol] 442 pg/mL Normal 180-914 [facility] Comment on above: Performed By: #### [place], 77494-7, CBC, PINR, HA1C #### [facility] ([id number]) [address] [facility] [place] [address] Vitamin B12on 05-10-2024 Cobalamin (Vitamin B12) [Mass/Vol] 442 pg/mL 180 - 914 pg/mL [facility] XR ABDOMEN AP 1 VWon 024 XR [...] Stratton MD on 05/10/2024 12:55 PM Normal [facility] XR Abdomen APon 05-10-2024 SECTRAPACS [facility] Radiology Study observation (narrative) [facility] XR Abdomen APOrdered By: Abdias Stratton on 05-10-2024 [facility] Work Phone: ABG RAPID K GLU HHon 024 WILLARD'S TEST Normal [facility] Comment on above: Performed By: #### H RTN ####[facility] ([id number])[address] [place] [address] BASE,DEFICIT 5.8 MMOL/L High 0.0-2.0 [facility] Comment on above: Performed By: #### H RTN ####[facility] ([id number])[address] [place] [address] Body temperature 98.6 [degF] Normal 37.0 [facility] Comment on above: Performed By: #### H RTN ####[facility] ([id number])[address] [place] [address] Glucose [Mass/Vol] 160 mg/dL High 65-99 [facility] Comment on above: Performed By: #### H RTN ####[facility] ([id number])[address] [place] [address] HCO3 (Bld) [Moles/Vol] 20.2 mmol/L Low 22-26 [facility] Comment on above: Performed By: #### H RTN ####[facility] ([id number])[address] [place] [address] Hematocrit (Bld) [Volume fraction] 36 % Low 39-49 [facility] Comment on above: Performed By: #### H RTN ####[facility] ([id number])[address] [place] [address] Hemoglobin (Bld) [Mass/Vol] 11.8 g/dL Low 13.0-17.0 [facility] Comment on above: Performed By: #### H RTN ####[facility] ([id number])[address] [place] [address] INSP. O2 CONC. 100 % Normal [facility] Comment on above: Performed By: #### H RTN ####[facility] ([id number])[address] [place] [address] Oxygen (Bld) [Partial pressure] 211 mm[Hg] High 80-100 [facility] Comment on above: Performed By: #### H RTN ####[facility] ([id number])[address] [place] [address] Oxygen saturation in Blood 99.8 % Normal >90 [facility] Comment on above: Performed By: #### H RTN ####[facility] ([id number])[address] [place] [address] PCO2 38.5 MMHG Normal 35-45 [facility] Comment on above: Performed By: #### H RTN ####[facility] ([id number])[address] [place] [address] pH (Bld) 7.328 [pH] Low 7.350-7.45 0 [facility] Comment on above: Performed By: #### H RTN ####[facility] ([id number])[address] [place] [address] Potassium [Moles/Vol] 5.6 mmol/L High 3.5-5.0 [facility] Comment on above: Performed By: #### H RTN ####[facility] ([id number])[address] [place] [address] SAMPLE SITE ANDRAE [facility] Comment on above: Performed By: #### H RTN ####[facility] ([id number])[address] [place] [address] SAMPLE TYPE Arterial Normal [facility] Comment on above: Performed By: #### H RTN ####[facility] ([id number])[address] [place] [address] CBC AND AUTO DIFFon 10-16-20 24 ABSOLUTE BASOPHIL 0.1 X10E9/L Normal 0.0-0.2 [facility] Comment on above: Performed By: #### 3 2132-, CBCA, CMP, 93351-5, PINR, 7-, ####[facility] ([id number])[address], [address] [place] [address] Band form neutrophils/100 WBC (Bld) 8.0 % Normal [facility] Comment on above: Performed By: #### 3 2132-, CBCA, CMP, 52725-9, PINR, 2776-, ####[facility] ([id number])[address], [address], [place] [address] Basophils/100 WBC (Bld) 1.0 % Normal [facility] Comment on above: Performed By: #### 3 2132-1, CBCA, CMP, 15211-6, PINR, 7-, ####[facility] ([id number])[address], [address], [place] [address] Erythrocyte distribution width (RBC) [Ratio] 13.5 % Normal 11.5-15.0 [facility] Comment on above: Performed By: #### 3 2132-1, CBCA, CMP, 84890-0, PINR, 2776-, ####[facility] ([id number])[address] [address], [place] [address] Hematocrit (Bld) [Volume fraction] 33.3 % Low 39-49 [facility] Comment on above: Performed By: #### 3 2132-1, CBCA, CMP, 78034-2, PINR, 2776-, ####[facility] ([id number])[address] [address], [place] [address] Hemoglobin (Bld) [Mass/Vol] 11.5 g/dL Low 13.0-17.0 [facility] Comment on above: Performed By: #### 3 2132-07, CBCA, CMP, 13515-8, PINR, 2776-, ####[facility] ([id number])[address] [address] [place] [address] Lymphocytes (Bld) [#/Vol] 3.4 10*3/uL Normal 1.0-3.5 [facility] Comment on above: Performed By: #### 3 2132-1, CBCA, CMP, 33042-5, PINR, 2776-, ####[facility] ([id number])[address] [address] [place] [address] Lymphocytes/100 WBC (Bld) 28.0 % Normal [facility] Comment on above: Performed By: #### 3 2132-1, CBCA, CMP, 26255-0, PINR, 2776-, ####[facility] ([id number])[address], [address] [place] [address] MCH (RBC) [Entitic mass] 32.6 pg Normal 27-34 [facility] Comment on above: Performed By: #### 3 2132-1, CBCA, CMP, 77501-4, PINR, 2776-, ####[facility] ([id number])[address], [address] [place] [address] MCHC (RBC) [Mass/Vol] 34.7 g/dL Normal 32-36 [facility] Comment on above: Performed By: #### 3 2132-1, CBCA, CMP, 81788-3, PINR, 2776-07, ####[facility] ([id number])[address], [address] [place] [address] MCV (RBC) [Entitic vol] 94 fL Normal 80-100 [facility] Comment on above: Performed By: #### 3 2132-07, CBCA, CMP, 40513-0, PINR, 2776-07, ####[facility] ([id number])[address] [address] [place] [address] Monocytes (Bld) [#/Vol] 0.2 10*3/uL Normal 0-0.9 [facility] Comment on above: Performed By: #### 3 2132-1, CBCA, CMP, 85759-5, PINR, 2776-, ####[facility] ([id number])[address] [address] [place] [address] Monocytes/100 WBC (Bld) 2.0 % Normal [facility] Comment on above: Performed By: #### 3 2133-1, CBCA, CMP, 12504-6, PINR, 7-, ####[facility] ([id number])[address], [address], [place] [address] Neutrophils (Bld) [#/Vol] 8.3 10*3/uL High 1.5-6.6 [facility] Comment on above: Performed By: #### 3 2132-1, CBCA, CMP, 20368-5, PINR, 2777-1, ####[facility] ([id number])[address], [address], [place] [address] Platelet mean volume (Bld) [Entitic vol] 6.9 fL Low 7-12 [facility] Comment on above: Performed By: #### 3 2132-1, CBCA, CMP, 53199-2, PINR, 2776-, ####[facility] ([id number])[address] [address], [place] [address] Platelets (Bld) [#/Vol] 185 10*3/uL Normal 150-450 [facility] Comment on above: Performed By: #### 3 2132-1, CBCA, CMP, 21112-2, PINR, 2776-, ####[facility] ([id number])[address], [address], [place] [address] RBC COUNT 3.54 X10E12/L Low 4.10-5.70 [facility] Comment on above: Performed By: #### 3 2132-1, CBCA, CMP, 78608-9, PINR, 2777-, ####[facility] ([id number])[address], [address] [address] RBC morphology finding Nom (Bld) NORMAL Normal [facility] Comment on above: Performed By: #### 3 2132-1, CBCA, CMP, 11941-2, PINR, 2777-1, 00159-9 ####[facility] ([id number])[address], [address] [place] [address] SEG NEUTROPHIL 61.0 % Normal [facility] Comment on above: Performed By: #### 3 2132-, CBCA, CMP, 99080-0, PINR, 2777-1, 89616-7 ####[facility] ([id number])[address], [address] [place] [address] WBC (Bld) [#/Vol] 12.0 10*3/uL High 4.0-11.0 [facility] Comment on above: Performed By: #### 3 2132-07, CBCA, CMP, 23118-4, PINR, 2776-, 67836-0 ####[facility] ([id number])[address], [address] [place] [address] CBC auto differentialon 04-24 Band form neutrophils/100 WBC (Bld) 8 % [facility] Basophils (Bld) [#/Vol] 0.1 10*3/uL [facility] Basophils/100 WBC (Bld) 1 % [facility] Erythrocyte distribution width (RBC) [Ratio] 13.5 % 11.5 - 15.0 % [facility] Hematocrit (Bld) [Volume fraction] 33.3 % Low 39 - 49 % [facility] Hemoglobin (Bld) [Mass/Vol] 11.5 g/dL Low 13.0 - 17.0 g/dL [facility] Interpretation and review of laboratory results Abnormal [facility] Lymphocytes (Bld) [#/Vol] 3.4 10*3/uL [facility] Lymphocytes/100 WBC (Bld) 28 % [facility] MCH (RBC) [Entitic mass] 32.6 pg 27 - 34 pg [facility] MCHC (RBC) [Mass/Vol] 34.7 g/dL 32 - 36 g/dL [facility] MCV (RBC) [Entitic vol] 94 fL [...] System RBC (Bld) [#/Vol] 3.54 10*6/uL Low [facility] Segmented neutrophils/100 WBC (Bld) 61 % [facility] WBC corrected for nucl RBC Auto (Bld) [#/Vol] 12 High [facility] COMPREHENSIVE METABOLIC PANE Cecilio 05-09-2024 Albumin [Mass/Vol] 4.0 g/dL Normal 3.2-5.3 [facility] Comment on above: Performed By: #### 3 2132-1, CBCA, CMP, 27994-4, PINR, 7-, ####[facility] ([id number])[address], [address] [place] [address] ALP [Catalytic activity/Vol] 109 U/L Normal 39-130 [facility] Comment on above: Performed By: #### 3 2132-1, CBCA, CMP, 53411-0, PINR, 7-, ####[facility] ([id number])[address], [address], [place] [address] ALT [Catalytic activity/Vol] 189 U/L High 0-40 [facility] Comment on above: Performed By: #### 3 2132-1, CBCA, CMP, 01401-4, PINR, 2777-1, ####[facility] ([id number])[address], [address], [place] [address] Anion gap [Moles/Vol] 9 mmol/L Normal 5-15 [facility] Comment on above: Performed By: #### 3 2132-1, CBCA, CMP, 56470-8, PINR, 2776-, ####[facility] ([id number])[address], [address], [place] [address] AST [Catalytic activity/Vol] 173 U/L High 0-41 [facility] Comment on above: Performed By: #### 3 2132-1, CBCA, CMP, 52382-0, PINR, 2776-, ####[facility] ([id number])[address], [address], [place] [address] Bilirubin [Mass/Vol] 1.1 mg/dL Normal 0.3-1.2 [facility] Comment on above: Performed By: #### 3 2132-1, CBCA, CMP, 38775-2, PINR, 2776-, ####[facility] ([id number])[address], [address], [place] [address] Calcium [Mass/Vol] 8.4 mg/dL Low 8.5-10.5 [facility] Comment on above: Performed By: #### 3 2132-1, CBCA, CMP, 34645-4, PINR, 2776-07, ####[facility] ([id number])[address], [address], [place] [address] Chloride [Moles/Vol] 109 mmol/L Normal 98-109 [facility] Comment on above: Performed By: #### 3 2132-1, CBCA, CMP, 32712-7, PINR, 2776-, ####[facility] ([id number])[address], [address], [place] [address] CO2 [Moles/Vol] 23 mmol/L Normal 22-32 [facility] Comment on above: Performed By: #### 3 3-1, CBCA, CMP, 18078-8, PINR, 7-, ####[facility] ([id number])[address], [address], [place] [address] Creatinine [Mass/Vol] 3.22 mg/dL High 0.60-1.30 [facility] Comment on above: Result Comment: METH OD TRACEABLE TO IDMS STANDARD Performed By: #### 3 2132-1, CBCA, CMP, 95647-7, PINR, 2776-, ####[facility] ([id number])[address], [place] [address] GFR/1.73 sq M.predicted among non-blacks MDRD (S/P/Bld) [Vol rate/Area] 20 mL/min/{1.73_m2} Low >59 [facility] Comment on above: Result Comment: Reported eGFR is based on the CKD-EPI 2020 equation that does not use a race coefficient. Performed By: #### 3 2132-1, CBCA, CMP, 17179-7, PINR, 2776-, ####[facility] ([id number])[address], [address], [place] [address] Glucose [Mass/Vol] 160 mg/dL High 65-99 [facility] Comment on above: Performed By: #### 3 2132-1, CBCA, CMP, 85940-3, PINR, 7-, ####[facility] ([id number])[address], [address] [address] Potassium [Moles/Vol] 5.0 mmol/L Normal 3.5-5.0 [facility] Comment on above: Performed By: #### 3 2132-1, CBCA, CMP, 58340-3, PINR, 2777-, ####[facility] ([id number])[address], [address] [place] [address] Protein [Mass/Vol] 5.7 g/dL Low 6.0-8.0 [facility] Comment on above: Performed By: #### 3 3-1, CBCA, CMP, 65466-3, PINR, 2776-07, ####[facility] ([id number])[address], [address] [place] [address] Sodium [Moles/Vol] 141 mmol/L Normal 134-146 [facility] Comment on above: Performed By: #### 3 2132-1, CBCA, CMP, 68572-4, PINR, 2776-07, ####[facility] ([id number])[address], [address] [place] [address] Urea nitrogen [Mass/Vol] 37 mg/dL High 5-27 [facility] Comment on above: Performed By: #### 3 2132-1, CBCA, CMP, 99501-6, PINR, 2776-07, ####[facility] ([id number])[address], [address] [place] [id number] Comprehensive metabolic pane cecilio 05-09-2024 Albumin [Mass/Vol] 4 g/dL 3.2 - 5.3 g/dL [facility] ALP [Catalytic activity/Vol] 109 U/L 39 - 130 U/L [facility] ALT No additional P-5'-P [Catalytic activity/Vol] 189 U/L High 0 - 40 U/L [facility] Anion gap [Moles/Vol] 9 mmol/L 5 - 15 mmol/L [facility] AST [Catalytic activity/Vol] 173 U/L High 0 - 41 U/L [facility] Bilirubin [Mass/Vol] 1.1 mg/dL 0.3 - 1.2 mg/dL [facility] Calcium [Mass/Vol] 8.4 mg/dL Low 8.5 - 10. 5 mg/dL [facility] Chloride [Moles/Vol] 109 mmol/L 98 - 109 mmol/L [facility] CO2 [Moles/Vol] 23 mmol/L 22 - 32 mmol/L [facility] Creatinine [Mass/Vol] 3.22 mg/dL High 0.60 - 1.30 mg/dL [facility] eGFR (CKD-EPI)non-race dependent 20 Low - PINF [facility] Glucose [Mass/Vol] 160 mg/dL High 65 - 99 mg/dL [facility] Interpretation and review of laboratory results Abnormal [facility] Potassium [Moles/Vol] 5 mmol/L 3.5 - 5.0 mmol/L [facility] Protein [Mass/Vol] 5.7 g/dL Low 6.0 - 8.0 g/dL [facility] Sodium [Moles/Vol] 141 mmol/L 134 - 146 mmol/L [facility] Urea nitrogen [Mass/Vol] 37 mg/dL High 5 - 27 mg/dL [facility] Creatinine (Bld) [Mass/Vol]o n 05-09-2024 Creatinine [Mass/Vol] ORDERED IN ERROR 0.7 - 1.2 mg/dL [facility] eGFR (CKD-EPI)non-race dependent ORDERED IN ERROR - PINF [facility] GFR/1.73 sq M.predicted among blacks MDRD (S/P/Bld) [Vol rate/Area] ORDERED IN ERROR - PINF [facility] GFR/1.73 sq M.predicted among non-blacks MDRD (S/P/Bld) [Vol rate/Area] ORDERED IN ERROR - PINF [facility] eGFR (CKD-EPI) NON-RACE DEPENDENT ORDERED IN ERROR Normal >59 [facility] Comment on above: Result Comment: ACCO UNT CREDITED Corrected on 05/09 AT 1431: Previously reported as 19 Reported eGFR is based on the CKD EPI 2020 equation that does not use a race coefficient. Performed By: #### 6 298-4, 75496-2, 2339-0, 79719-0 ####[facility] ([id number])[address] [place] [address] GFR Amer ORDERED IN ERROR Normal >59 [facility] Comment on above: Result Comment: ACCO UNT CREDITED Performed By: #### 6 298-4, 81664-2, 2338-0, ####[facility] ([id number])[address] [place] [address] GFR non Amer ORDERED IN ERROR Normal >59 [facility] Comment on above: Result Comment: ACCO UNT CREDITED Performed By: #### 6 298-4, 86184-5, 2338-0, ####[facility] ([id number])[address] [place] [address] PORTABLE CREATININE ORDERED IN ERROR Normal 0.7-1.2 [facility] Comment on above: Result Comment: ACCO UNT CREDITED Corrected on 05/09 AT 1431: Previously reported as 3.4 Performed By: #### 6 298-4, 29207-8, 2338-0, ####[facility] ([id number])[address] [place] [address] Crossmatch RBC:on 05-09-2024 BB Type Barcode 6200 [facility] Blood component type [id number] [facility] Crossmatch Compatible [facility] Expiration Date [facility] Status of unit SELECTED [facility] Unit ABO A [facility] Unit number [id number] [facility] Unit RH Positive [facility] Glucose (Bld) [Mass/Vol]on 1 Glucose [Mass/Vol] 94 mg/dL 65 - 99 mg/dL [facility] Glucose [Mass/Vol] 94 mg/dL Normal 65-99 [facility] Comment on above: Performed By: #### 6 298-4, 69429-3, 2338-0, ####[facility] ([id number])[address] [facility] [address] Glucose Glucometer (BldC) [M ass/Vol]on 05-09-2024 Glucose [Mass/Vol] 177 mg/dL High 65 - 99 mg/dL [facility] Interpretation and review of laboratory results Abnormal [facility] Glucose [Mass/Vol] 177 mg/dL High 65-99 [facility] HGB AND HCTon 05-09-2024 Hematocrit (Bld) [Volume fraction] 33.4 % Low 39-49 [facility] Comment on above: Performed By: #### 3 2132-1, ####[facility] ([id number])[address] [facility], [address] [place] [address] Hemoglobin (Bld) [Mass/Vol] 11.3 g/dL Low 13.0-17.0 [facility] Comment on above: Performed By: #### 3 2132-07, ####[facility] ([id number])[address], [address] [place] [address] Hematocrit (Bld) [Volume fra ction]on 05-09-2024 Interpretation and review of laboratory results Abnormal [facility] Hemoglobin and hematocrit, b loodon 05-09-2024 Interpretation and review of laboratory results Abnormal [facility] Lactate (Bld) [Moles/Vol]on 05-09-2024 RAPID LACTIC ACID 1.8 mmol/L Normal 0.4-2.0 [facility] Comment on above: Performed By: #### [place], [address]-2, CBC, PINR, HA1C #### [facility] ([id number]) [address], [address] [place] [address] Lactate [Moles/Vol] 0.7 mmol/L 0.4 - 2. 0 mmol/L [facility] Lactate [Moles/Vol] 0.5 mmol/L 0.4 - 2. 0 mmol/L [facility] RAPID LACTIC ACID 0.7 mmol/L Normal 0.4-2.0 [facility] Comment on above: Performed By: #### 3 2693-4 ####[facility] ([id number])[address] [place] [address] RAPID LACTIC ACID 0.5 mmol/L Normal 0.4-2.0 [facility] Comment on above: Performed By: #### 3 2693-4 ####[facility] ([id number])[address] [place] [address] Lactate (P mendoza) [Moles/Vol]o n 05-09-2024 LACTATE W/REFLEX 0.8 mmol/L Normal 0.4-2.0 [facility] Comment on above: Result Comment: Result did not trigger repeat Lactate, re-order if needed. Performed By: #### 3 213-1, HH ####[facility] ([id number])[address], [address] [place] [address] [facility] LACTATE W/REFLEX 0.7 mmol/L Normal 0.4-2.0 [facility] Comment on above: Result Comment: Result did not trigger repeat Lactate, re-order if needed. Performed By: #### 3 2132-1, CBCA, CMP, 59278-4, PINR, 2777-1, ####[facility] ([id number])[address], [address] [address] Lactate w/ Reflexon 05-09-20 Lactate (P mendoza) [Moles/Vol] 0.7 mmol/L 0.4 - 2.0 mmol/L [facility] MAGNESIUMon 05-09-2024 Magnesium [Mass/Vol] 2.6 mg/dL Normal 1.8-2.6 [facility] Comment on above: Performed By: #### 3 2132-1, CBCA, CMP, 67228-2, PINR, 2777-1, 61039-9 ####[facility] ([id number])[address] [facility], [address] [place] [address] Magnesiumon 05-09-2024 Magnesium [Mass/Vol] 2.6 mg/dL 1.8 - 2.6 mg/dL [facility] Natriuretic peptide B [Mass/ Vol]on 05-09-2024 Interpretation and review of laboratory results Abnormal [facility] Natriuretic peptide B (Bld) [Mass/Vol] 289 pg/mL High NINF - 100.0 pg/mL [facility] Natriuretic peptide B (Bld) [Mass/Vol] 289 pg/mL High <100.0 [facility] Comment on above: Performed By: #### 3 3-1, CBCA, CMP, 82792-8, PINR, 2777-1, ####[facility] ([id number])[address] [place] [address], [address] [place] [address] No Panel Informationon 05-09 [facility] PHOSPHORUSon 05-09-2024 Phosphate [Mass/Vol] 3.6 mg/dL Normal 2.4-4.9 [facility] Comment on above: Performed By: #### 3 2132-1, CBCA, CMP, 85509-9, PINR, 2777-1, ####[facility] ([id number])[address] [place] [address], [address] [place] [address] POCT ABG Rapid K GLU HHon Arterial patency Wrist artery --pre arterial puncture [facility] Base deficit (Bld) [Moles/Vol] 5.8 mmol/L High [facility] CO2 (Bld) [Partial pressure] 38.5 mm[Hg] [facility] Glucose [Mass/Vol] 160 mg/dL High 65 - 99 mg/dL [facility] HCO3 (Bld) [Moles/Vol] 20.2 mmol/L Low [facility] Hematocrit (Bld) [Volume fraction] 36 % Low 39 - 49 % [facility] Hemoglobin (Bld) [Mass/Vol] 11.8 g/dL Low 13.0 - 17.0 g/dL [facility] Interpretation and review of laboratory results Abnormal [facility] Oxygen (Bld) [Partial pressure] 211 mm[Hg] High [facility] Oxygen/Inspired gas setting [Volume Fraction] Ventilator 100 % [facility] pH (Bld) 7.328 [pH] Low 7.350 - 7.450 [facility] Potassium [Moles/Vol] 5.6 mmol/L High 3.5 - 5.0 mmol/L [facility] Specimen site Narrative [facility] Specimen type Nom (Spec) Arterial [facility] POCT ABG Rapid K GLU ICA HHo n 05-09-2024 Arterial patency Wrist artery --pre arterial puncture [facility] Base deficit (Bld) [Moles/Vol] 3.1 mmol/L High [facility] Calcium.ionized ISE [Moles/Vol] 4.7 mg/dL 4.5 - 5.3 mg/dL [facility] CO2 (Bld) [Partial pressure] 37.9 mm[Hg] [facility] Glucose [Mass/Vol] 205 mg/dL High 65 - 99 mg/dL [facility] HCO3 (Bld) [Moles/Vol] 22.1 mmol/L [facility] Hematocrit (Bld) [Volume fraction] 31 % Low 39 - 49 % [facility] Hemoglobin (Bld) [Mass/Vol] 10.1 g/dL Low 13.0 - 17.0 g/dL [facility] Interpretation and review of laboratory results Abnormal [facility] Oxygen (Bld) [Partial pressure] 184 mm[Hg] High [facility] Oxygen/Inspired gas setting [Volume Fraction] Ventilator 100 % [facility] pH (Bld) 7.375 [pH] 7.350 - 7.450 [facility] Potassium [Moles/Vol] 4.5 mmol/L 3.5 - 5.0 mmol/L [facility] Specimen site Narrative [facility] Specimen type Nom (Spec) Arterial [facility] Arterial patency Wrist artery --pre arterial puncture [facility] Base deficit (Bld) [Moles/Vol] 5.5 mmol/L High [facility] Calcium.ionized ISE [Moles/Vol] 4.4 mg/dL Low 4.5 - 5.3 mg/dL [facility] CO2 (Bld) [Partial pressure] 35.8 mm[Hg] [facility] Glucose [Mass/Vol] 154 mg/dL High 65 - 99 mg/dL [facility] HCO3 (Bld) [Moles/Vol] 20.1 mmol/L Low [facility] Hematocrit (Bld) [Volume fraction] 36 % Low 39 - 49 % [facility] Hemoglobin (Bld) [Mass/Vol] 11.7 g/dL Low 13.0 - 17.0 g/dL [facility] Interpretation and review of laboratory results Abnormal [facility] Oxygen (Bld) [Partial pressure] 206 mm[Hg] High [facility] Oxygen/Inspired gas setting [Volume Fraction] Ventilator 100 % [facility] pH (Bld) 7.357 [pH] 7.350 - 7.450 [facility] Potassium [Moles/Vol] 6.8 mmol/L Critically high 3.5 - 5.0 mmol/L [facility] Specimen site Narrative [facility] Specimen type Nom (Spec) Arterial [facility] Arterial patency Wrist artery --pre arterial puncture [facility] Base deficit (Bld) [Moles/Vol] 3.6 mmol/L High [facility] Calcium.ionized ISE [Moles/Vol] 4.6 mg/dL 4.5 - 5.3 mg/dL [facility] CO2 (Bld) [Partial pressure] 38 mm[Hg] [facility] Glucose [Mass/Vol] 91 mg/dL 65 - 99 mg/dL [facility] HCO3 (Bld) [Moles/Vol] 21.8 mmol/L Low [facility] Hematocrit (Bld) [Volume fraction] 36 % Low 39 - 49 % [facility] Hemoglobin (Bld) [Mass/Vol] 11.6 g/dL Low 13.0 - 17.0 g/dL [facility] Interpretation and review of laboratory results Abnormal [facility] Oxygen (Bld) [Partial pressure] 223 mm[Hg] High [facility] Oxygen/Inspired gas setting [Volume Fraction] Ventilator 100 % [facility] pH (Bld) 7.367 [pH] 7.350 - 7.450 [facility] Potassium [Moles/Vol] 4.5 mmol/L 3.5 - 5.0 mmol/L [facility] Specimen site [facility] Specimen type Nom (Spec) Arterial [facility] POCT hematocriton 05-09-2024 Hematocrit (Bld) [Volume fraction] 33 % Low 39 - 49 % [facility] PORTABLE HEMATOCRITon 2023 Hematocrit (Bld) [Volume fraction] 33 % Low 39-49 [facility] Comment on above: Performed By: #### 6 298-4, 73860-7, 2339-0, 67362-1 ####[facility] ([id number])[address] [place] [address] PORTABLE PROTIMEon PORTABLE INR 1.1 Normal 0.8-1.2 [facility] Comment on above: Performed By: #### I PRO ####[facility] ([id number])[address] [place] [address] PROTIME AND INRon 05-09-2024 INR Coag (PPP) [Relative time] 1.1 {INR} Normal 0.8-1.1 [facility] Comment on above: Performed By: #### 3 2132-1, CBCA, CMP, 47513-4, PINR, 277-, ####[facility] ([id number])[address] [facility], [address] [address] PT Coag (PPP) [Time] 13.1 s Normal 9.8-13.2 [facility] Comment on above: Performed By: #### 3 2132-1, CBCA, CMP, 44037-0, PINR, 2777-, ####[facility] ([id number])[address] [facility], [address] [place] [address], [place] [address] Phosphoruson 05-09-2024 Phosphate [Mass/Vol] 3.6 mg/dL 2.4 - 4.9 mg/dL [facility] Portable Protimeon INR Coag (Bld) [Relative time] 1.1 {INR} 0.8 - 1.2 [facility] Potassium (Bld) [Moles/Vol]o n 05-09-2024 Potassium [Moles/Vol] 4.9 mmol/L 3.5 - 5.0 mmol/L [facility] Potassium [Moles/Vol] 4.9 mmol/L Normal 3.5-5.0 [facility] Comment on above: Performed By: #### 6 298-4, 01447-1, 2339-0, 72846-4 #### [facility] ([id number]) [address] [place] [address] Protime & INRon 05-09-2024 INR Coag (PPP) [Relative time] 1.1 {INR} [facility] PT Coag (PPP) [Time] 13.1 s [facility] RAPID CARDIACon 05-09-2024 WILLARD'S TEST Normal [facility] Comment on above: Performed By: #### A FAB5 ####[facility] ([id number])[address] [place] [address] BASE,DEFICIT 3.1 MMOL/L High 0.0-2.0 [facility] Comment on above: Performed By: #### A FAB5 ####[facility] ([id number])[address] [place] [address] Body temperature 98.6 [degF] Normal 37.0 [facility] Comment on above: Performed By: #### A FAB5 ####[facility] ([id number])[address] [place] [address] Glucose [Mass/Vol] 205 mg/dL High 65-99 [facility] Comment on above: Performed By: #### A FAB5 ####[facility] ([id number])[address] [place] [address] HCO3 (Bld) [Moles/Vol] 22.1 mmol/L Normal 22-26 [facility] Comment on above: Performed By: #### A FAB5 ####[facility] ([id number])[address] [place] [address] Hematocrit (Bld) [Volume fraction] 31 % Low 39-49 [facility] Comment on above: Performed By: #### A FAB5 ####[facility] ([id number])[address] [place] [address] Hemoglobin (Bld) [Mass/Vol] 10.1 g/dL Low 13.0-17.0 [facility] Comment on above: Performed By: #### A FAB5 ####[facility] ([id number])[address] [place] [address] INSP. O2 CONC. 100 % Normal [facility] Comment on above: Performed By: #### A FAB5 ####[facility] ([id number])[address] [place] [address] IONIZED CALCIUM 4.7 mg/dL Normal 4.5-5.3 [facility] Comment on above: Performed By: #### A FAB5 ####[facility] ([id number])[address] [place] [address] Oxygen (Bld) [Partial pressure] 184 mm[Hg] High 80-100 [facility] Comment on above: Performed By: #### A FAB5 ####[facility] ([id number])[address] [place] [address] Oxygen saturation in Blood 99.7 % Normal >90 [facility] Comment on above: Performed By: #### A FAB5 ####[facility] ([id number])[address] [place] [address] PCO2 37.9 MMHG Normal 35-45 [facility] Comment on above: Performed By: #### A FAB5 ####[facility] ([id number])[address] [place] [address] pH (Bld) 7.375 [pH] Normal 7.350-7.45 0 [facility] Comment on above: Performed By: #### A FAB5 ####[facility] ([id number])[address] [place] [address] Potassium [Moles/Vol] 4.5 mmol/L Normal 3.5-5.0 [facility] Comment on above: Performed By: #### A FAB5 ####[facility] ([id number])[address] [place] [address] SAMPLE SITE ANDRAE Normal [facility] Comment on above: Performed By: #### A FAB5 ####[facility] ([id number])[address] [place] [address] SAMPLE TYPE Arterial Normal [facility] Comment on above: Performed By: #### A FAB5 ####[facility] ([id number])[address] [place] [address] WILLARD'S TEST Normal [facility] Comment on above: Performed By: #### A FAB5 ####[facility] ([id number])[address] [place] [address] BASE,DEFICIT 5.5 MMOL/L High 0.0-2.0 [facility] Comment on above: Performed By: #### A FAB5 ####[facility] ([id number])[address] [place] [address] Body temperature 98.6 [degF] Normal 37.0 [facility] Comment on above: Performed By: #### A FAB5 ####[facility] ([id number])[address] [facility] [place] [place] [address] Glucose [Mass/Vol] 154 mg/dL High 65-99 [facility] Comment on above: Performed By: #### A FAB5 ####[facility] ([id number])[address] [place] [address] HCO3 (Bld) [Moles/Vol] 20.1 mmol/L Low 22-26 [facility] Comment on above: Performed By: #### A FAB5 ####[facility] ([id number])[address] [place] [address] Hematocrit (Bld) [Volume fraction] 36 % Low 39-49 [facility] Comment on above: Performed By: #### A FAB5 ####[facility] ([id number])[address] [place] [address] Hemoglobin (Bld) [Mass/Vol] 11.7 g/dL Low 13.0-17.0 [facility] Comment on above: Performed By: #### A FAB5 ####[facility] ([id number])[address] [place] [address] INSP. O2 CONC. 100 % Normal [facility] Comment on above: Performed By: #### A FAB5 ####[facility] ([id number])[address] [place] [address] IONIZED CALCIUM 4.4 mg/dL Low 4.5-5.3 [facility] Comment on above: Performed By: #### A FAB5 ####[facility] ([id number])[address] [place] [address] Oxygen (Bld) [Partial pressure] 206 mm[Hg] High 80-100 [facility] Comment on above: Performed By: #### A FAB5 ####[facility] ([id number])[address] [facility] [place] [address] Oxygen saturation in Blood 99.8 % Normal >90 [facility] Comment on above: Performed By: #### A FAB5 ####[facility] ([id number])[address] [place] [place] [address] PCO2 35.8 MMHG Normal 35-45 [facility] Comment on above: Performed By: #### A FAB5 ####[facility] ([id number])[address] [facility] [place] [address] pH (Bld) 7.357 [pH] Normal 7.350-7.45 0 [facility] Comment on above: Performed By: #### A FAB5 ####[facility] ([id number])[address] [place] [address] Potassium [Moles/Vol] 6.8 mmol/L Critically high 3.5-5.0 [facility] Comment on above: Performed By: #### A FAB5 ####[facility] ([id number])[address] [facility] [place] [address] SAMPLE SITE ANDRAE Normal [facility] Comment on above: Performed By: #### A FAB5 ####[facility] ([id number])[address] [facility] [place] [address] SAMPLE TYPE Arterial Normal [facility] Comment on above: Performed By: #### A FAB5 ####[facility] ([id number])[address] [place] [address] WILLARD'S TEST Normal [facility] Comment on above: Performed By: #### A FAB5 ####[facility] ([id number])[address] [place] [address] BASE,DEFICIT 3.6 MMOL/L High 0.0-2.0 [facility] Comment on above: Performed By: #### A FAB5 ####[facility] ([id number])[address] [place] [address] Body temperature 98.6 [degF] Normal 37.0 [facility] Comment on above: Performed By: #### A FAB5 ####[facility] ([id number])[address] [place] [address] Glucose [Mass/Vol] 91 mg/dL Normal 65-99 [facility] Comment on above: Performed By: #### A FAB5 ####[facility] ([id number])[address] [place] [address] HCO3 (Bld) [Moles/Vol] 21.8 mmol/L Low 22-26 [facility] Comment on above: Performed By: #### A FAB5 ####[facility] ([id number])[address] [place] [address] Hematocrit (Bld) [Volume fraction] 36 % Low 39-49 [facility] Comment on above: Performed By: #### A FAB5 ####[facility] ([id number])[address] [place] [address] Hemoglobin (Bld) [Mass/Vol] 11.6 g/dL Low 13.0-17.0 [facility] Comment on above: Performed By: #### A FAB5 ####[facility] ([id number])[address] [place] [address] INSP. O2 CONC. 100 % Normal [facility] Comment on above: Performed By: #### A FAB5 ####[facility] ([id number])[address] [place] [address] IONIZED CALCIUM 4.6 mg/dL Normal 4.5-5.3 [facility] Comment on above: Performed By: #### A FAB5 ####[facility] ([id number])[address] [place] [address] Oxygen (Bld) [Partial pressure] 223 mm[Hg] High 80-100 [facility] Comment on above: Performed By: #### A FAB5 ####[facility] ([id number])[address] [place] [address] Oxygen saturation in Blood 99.9 % Normal >90 [facility] Comment on above: Performed By: #### A FAB5 ####[facility] ([id number])[address] [place] [address] PCO2 38.0 MMHG Normal 35-45 [facility] Comment on above: Performed By: #### A FAB5 ####[facility] ([id number])[address] [place] [address] pH (Bld) 7.367 [pH] Normal 7.350-7.45 0 [facility] Comment on above: Performed By: #### A FAB5 ####[facility] ([id number])[address] [place] [address] Potassium [Moles/Vol] 4.5 mmol/L Normal 3.5-5.0 [facility] Comment on above: Performed By: #### A FAB5 ####[facility] ([id number])[address] [place] [address] SAMPLE SITE ANDRAE Normal [facility] Comment on above: Performed By: #### A FAB5 ####[facility] ([id number])[address] [place] [address] SAMPLE TYPE Arterial Normal [facility] Comment on above: Performed By: #### A FAB5 ####[facility] ([id number])[address] [place] [address] Surgical Pathologyon 024 Surgical Pathology Normal [facility] Comment on above: Result Comment: [facility] [address] [place] [address] Surgical Pathology Consultation ADDENDUM [place] Patient Name:ZEV CRYSTAL:1955 (Age: 68)Gender:MTaken:4Reported:05/18/2024hysician(s):Jeffrey Mcfadden MD ([phone])Copy To: Rec. #:[id number]: #[id number] Final Pathologic Diagnosis 1. Central pancreas, resection: [...] metastatic carcinoma identified. Report Electronically Signed Out cjb/4Celeste Manuelito Barker MD Preliminary Report ([facility]) Date Reported: 05/16/2024 1. Central pancreas, resection: [...] are adequate. Electronically Signed Out CJB Addendum ([facility]) Date Reported: 05/21/2024 2. Hepatic artery lymph [...] immunostain for SOX11 will be performed at [facility] and results will be reported in an addendum. Electronically Signed Out Andre Childers MD Addendum ([facility]) Date Reported: 05/29/2024 Results of B-cell Lymphoma, FISH, Tissue dated 05/28/2024 are received from [facility], [address] [place] [address] and are as follows: Result Summary: Negative Interpretation: No fusion of CCND1 and IGH was observed. Clinical and pathologic cor (more content not included)... [facility] [employer] No Panel Informationon 04-30 Type of biopsy: [...] taken Amount of lidocaine used: 1.0 cc [facility] ECG 12 leadon 04-26-2024 TRACEMASTERVUE [facility] APTTon 04-25-2024 aPTT Coag (PPP) [Time] 41 s High [facility] CBCon 04-25-2024 Erythrocyte distribution width (RBC) [Ratio] 13.6 % 11.5 - 15.0 % [facility] Hematocrit (Bld) [Volume fraction] 36.3 % Low 39 - 49 % [facility] Hemoglobin (Bld) [Mass/Vol] 12.5 g/dL Low 13.0 - 17.0 g/dL [facility] Interpretation and review of laboratory results Abnormal [facility] MCH (RBC) [Entitic mass] 32.8 pg 27 - 34 pg [facility] MCHC (RBC) [Mass/Vol] 34.4 g/dL 32 - 36 g/dL [facility] MCV (RBC) [Entitic vol] 95 fL 80 - 100 fL [facility] Platelet mean volume (Bld) [Entitic vol] 7.2 fL 7 - 12 fL [facility] Platelets (Bld) [#/Vol] 196 10*3/uL [facility] RBC (Bld) [#/Vol] 3.80 10*6/uL Low [facility] WBC corrected for nucl RBC Auto (Bld) [#/Vol] 7.1 [facility] COMPLETE BLOOD COUNTon 04-25 Erythrocyte distribution width (RBC) [Ratio] 13.6 % Normal 11.5-15.0 [facility] Comment on above: Performed By: #### C THEO, 01759-1, CBC, PINR, HA1C #### [facility] ([id number]) [address] [place] [address] Hematocrit (Bld) [Volume fraction] 36.3 % Low 39-49 [facility] Comment on above: Performed By: #### C THEO, 98470-6, CBC, PINR, HA1C #### [facility] ([id number]) [address], [address] [place] [address] Hemoglobin (Bld) [Mass/Vol] 12.5 g/dL Low 13.0-17.0 [facility] Comment on above: Performed By: #### [place], [address]-3, CBC, PINR, HA1C #### [facility] ([id number]) [address], [address] [place] [address] MCH (RBC) [Entitic mass] 32.8 pg Normal 27-34 [facility] Comment on above: Performed By: #### [place], 55990-5, CBC, PINR, HA1C #### [facility] ([id number]) [address], [address] [place] [address] MCHC (RBC) [Mass/Vol] 34.4 g/dL Normal 32-36 [facility] Comment on above: Performed By: #### [place], 28957-7, CBC, PINR, HA1C #### [facility] ([id number]) [address], [address] [place] [address] MCV (RBC) [Entitic vol] 95 fL Normal 80-100 [facility] Comment on above: Performed By: #### C MP, 81834-4, CBC, PINR, HA1C #### [facility] ([id number]) [address], [address] [place] [address] Platelet mean volume (Bld) [Entitic vol] 7.2 fL Normal 7-12 [facility] Comment on above: Performed By: #### C MP, 81947-3, CBC, PINR, HA1C #### [facility] ([id number]) [address], [address] [place] [address] Platelets (Bld) [#/Vol] 196 10*3/uL Normal 150-450 [facility] Comment on above: Performed By: #### C [place], 14106-8, CBC, PINR, HA1C #### [facility] ([id number]) [address], [address] [place] [address] RBC COUNT 3.80 X10E12/L Low 4.10-5.70 [facility] Comment on above: Performed By: #### C MP, 74435-5, CBC, PINR, HA1C #### [facility] ([id number]) [address], [address] [place] [address] WBC (Bld) [#/Vol] 7.1 10*3/uL Normal 4.0-11.0 [facility] Comment on above: Performed By: #### C THEO, 78479-8, CBC, PINR, HA1C #### [facility] ([id number]) [address], [address] [place] [address] [facility] 04-25-2024 Albumin [Mass/Vol] 4.4 g/dL Normal 3.2-5.3 [facility] Comment on above: Performed By: #### C THEO, 20923-5, CBC, PINR, HA1C #### [facility] ([id number]) [address], [address] [place] [address] ALP [Catalytic activity/Vol] 119 U/L Normal 39-130 [facility] Comment on above: Performed By: #### C MP, 13589-5, CBC, PINR, HA1C #### [facility] ([id number]) [address], [address] [place] [address] ALT [Catalytic activity/Vol] 13 U/L Normal 0-40 [facility] Comment on above: Performed By: #### C MP, 42069-1, CBC, PINR, HA1C #### [facility] ([id number]) [address], [address] [place] [address] Anion gap [Moles/Vol] 11 mmol/L Normal 5-15 [facility] Comment on above: Performed By: #### C THEO, 58644-4, CBC, PINR, HA1C #### [facility] ([id number]) [address], [address] [place] [address] AST [Catalytic activity/Vol] 14 U/L Normal 0-41 [facility] Comment on above: Performed By: #### C THEO, 33184-3, CBC, PINR, HA1C #### [facility] ([id number]) [address], [address] [place] [address] Bilirubin [Mass/Vol] 0.6 mg/dL Normal 0.3-1.2 [facility] Comment on above: Performed By: #### C THEO, 24768-1, CBC, PINR, HA1C #### [facility] ([id number]) [address], [address] [place] [address] Calcium [Mass/Vol] 9.0 mg/dL Normal 8.5-10.5 [facility] Comment on above: Performed By: #### C THEO, 85302-9, CBC, PINR, HA1C #### [facility] ([id number]) [address], [address] [place] [address] Chloride [Moles/Vol] 105 mmol/L Normal 98-109 [facility] Comment on above: Performed By: #### C THEO, 65898-3, CBC, PINR, HA1C #### [facility] ([id number]) [address], [address] [place] [address] CO2 [Moles/Vol] 25 mmol/L Normal 22-32 [facility] Comment on above: Performed By: #### C THEO, 15590-0, CBC, PINR, HA1C #### [facility] ([id number]) [address], [address] [place] [address] Creatinine [Mass/Vol] 3.63 mg/dL High 0.60-1.30 [facility] Comment on above: Result Comment: METH OD TRACEABLE TO IDMS STANDARD Performed By: #### C THEO, 60864-2, CBC, PINR, HA1C #### [facility] ([id number]) [address], [address] [place] [address] GFR/1.73 sq M.predicted among non-blacks MDRD (S/P/Bld) [Vol rate/Area] 18 mL/min/{1.73_m2} Low >59 [facility] Comment on above: Result Comment: Reported eGFR is based on the CKD-EPI 2020 equation that does not use a race coefficient. Performed By: #### C THEO, 17383-8, CBC, PINR, HA1C #### [facility] ([id number]) [address], [address] [place] [address] Glucose [Mass/Vol] 70 mg/dL Normal 65-99 [facility] Comment on above: Performed By: #### C THEO, 35454-9, CBC, PINR, HA1C #### [facility] ([id number]) [address], [address] [place] [address] Potassium [Moles/Vol] 4.2 mmol/L Normal 3.5-5.0 [facility] Comment on above: Performed By: #### C THEO, 19214-4, CBC, PINR, HA1C #### [facility] ([id number]) [address], [address] [place] [address] Protein [Mass/Vol] 6.7 g/dL Normal 6.0-8.0 [facility] Comment on above: Performed By: #### C THEO, 98367-3, CBC, PINR, HA1C #### [facility] ([id number]) [address], [address] [place] [address] Sodium [Moles/Vol] 141 mmol/L Normal 134-146 [facility] Comment on above: Performed By: #### C MP, 49935-2, CBC, PINR, HA1C #### [facility] ([id number]) [address], [address] [place] [address] Urea nitrogen [Mass/Vol] 41 mg/dL High 5-27 [facility] Comment on above: Performed By: #### C MP, 48655-2, CBC, PINR, HA1C #### [facility] ([id number]) [address], [address] [place] [address] Comprehensive metabolic pane cecilio 04-25-2024 Albumin [Mass/Vol] 4.4 g/dL 3.2 - 5.3 g/dL [facility] ALP [Catalytic activity/Vol] 119 U/L 39 - 130 U/L [facility] ALT No additional P-5'-P [Catalytic activity/Vol] 13 U/L 0 - 40 U/L [facility] Anion gap [Moles/Vol] 11 mmol/L 5 - 15 mmol/L [facility] AST [Catalytic activity/Vol] 14 U/L 0 - 41 U/L [facility] Bilirubin [Mass/Vol] 0.6 mg/dL 0.3 - 1.2 mg/dL [facility] Calcium [Mass/Vol] 9.0 mg/dL 8.5 - 10. 5 mg/dL [facility] Chloride [Moles/Vol] 105 mmol/L 98 - 109 mmol/L [facility] CO2 [Moles/Vol] 25 mmol/L 22 - 32 mmol/L [facility] Creatinine [Mass/Vol] 3.63 mg/dL High 0.60 - 1.30 mg/dL [facility] Comment on above: METHOD TRACEABLE TO IDWI STANDARD eGFR (CKD-EPI)non-race dependent 18 Low - PINF [facility] Comment on above: Reported eGFR is based on the CKD-EPI 2020 equation that does not use a race coefficient. Glucose [Mass/Vol] 70 mg/dL 65 - 99 mg/dL [facility] Interpretation and review of laboratory results Abnormal [facility] Potassium [Moles/Vol] 4.2 mmol/L 3.5 - 5.0 mmol/L [facility] Protein [Mass/Vol] 6.7 g/dL 6.0 - 8.0 g/dL [facility] Sodium [Moles/Vol] 141 mmol/L 134 - 146 mmol/L [facility] Urea nitrogen [Mass/Vol] 41 mg/dL High 5 - 27 mg/dL [facility] HGB A1C (GLYCO-HGB)on 2023 Glucose [Mass/Vol] 117 mg/dL Normal [facility] Comment on above: Performed By: #### Kathleen VENEGAS, 75923-8, CBC, PINR, HA1C #### [facility] ([id number]) [address] [place] [address], [facility] [address] [place] [address] HbA1c (Bld) [Mass fraction] 5.7 % High 4.4-5.6 [facility] Comment on above: Result Comment: NOTE ADA Guidelines Result HgbA1c Normal : less than 5.7 % Prediabetes : 5.7 % to 6.4 % Diabetes : > 6.4 % Use with caution in patients with abnormal hemoglobin variants as the half-life of red blood cells and in vivo glycation rates are affected. Performed By: #### Kathleen VENEGAS, 36918-7, CBC, PINR, HA1C #### [facility] ([id number]) [address] [place] [address], [address] [place] [address] Hemoglobin A1con 04-25-2024 Average glucose Estimated from glycated hemoglobin (Bld) [Mass/Vol] 117 mg/dL [facility] HbA1c (Bld) [Mass fraction] 5.7 % High 4.4 - 5.6 % [facility] Comment on above: NOTE ADA Guidelines Result HgbA1c Normal : less than 5.7 % Prediabetes : 5.7 % to 6.4 % Diabetes : > 6.4 % Use with caution in patients with abnormal hemoglobin variants as the half-life of red blood cells and in vivo glycation rates are affected. Interpretation and review of laboratory results Abnormal [facility] No Panel Informationon 04-25 [facility] PROTIME AND INRon 04-25-2024 INR Coag (PPP) [Relative time] 1.0 {INR} Normal 0.8-1.1 [facility] Comment on above: Performed By: #### C THEO, 73556-4, CBC, PINR, HA1C #### [facility] ([id number]) [address], [address] [place] [address] PT Coag (PPP) [Time] 11.7 s Normal 9.8-13.2 [facility] Comment on above: Performed By: #### C THEO, 73639-6, CBC, PINR, HA1C #### [facility] ([id number]) [address], [address] [place] [address] Protime-INRon 04-25-2024 INR Coag (PPP) [Relative time] 1.0 {INR} [facility] PT Coag (PPP) [Time] 11.7 s [facility] Type and screen(includes ind irect gloria)on 04-25-2024 ABO A [facility] Rh Nom (Bld) Positive [facility] aPTT Coag (PPP) [Time]on Interpretation and review of laboratory results Abnormal [facility] aPTT Coag (Bld) [Time] 41 s High 26-37 [facility] Comment on above: Performed By: #### C THEO, 94960-1, CBC, PINR, HA1C #### [facility] ([id number]) [address], [address] [place] [address] CT HUMERUS LT WO CONTon 03-25 CT [...] Mick Iqbal on 04/07/2024 8:07 AM Normal [facility] Cytologyon 04-04-2024 Cytology Normal [facility] Comment on above: Result Comment: [facility] [address] [place] [address] Cytology Consultation Patient Name:ZEV CRYSTAL:1955 (Age: 68)Gender:MTaken:4Reported:04/19/2024 18:02Physician(s):Katarina Reeder MD ([phone])Copy To: Rec. #:[id number]: #[id number] Final Cytologic Diagnosis Intrapancreatic ductal mass, EUS fine needle aspiration: Gut contamination, non-diagnostic aspirate sample, see comment. Comment: The interpretation of the case is challenging due to air-drying and streaking artifact. However, our interpretation of the cells present are gut contamination. This sample may not be product support sales representative of the lesion. The case was reviewed in consultation with Drs. Cleary and Asaf, who concur. ............................................ NOTE: [facility], including in intradepartmental consultation. It was then send out to [facility] for expert opinion. The diagnosis was made in consultation with [facility]. The above diagnosis and comment are that of Jose Strong MD, [facility], [place], [place]. Please see the complete report in the patient's EMR. [facility]/04/05/2024 Interpretation performed at [facility], [address] [place] [address], License number: [id number].Electronically Signed Out By Cm Davis MD Additional Report(s): Preliminary Report (PHS) Date Reported: 04/10/2024 Intra pancreatic ductal ross-BEDD-lslz needle aspiration: [facility], including in intradepartmental consultations. Case send out to [facility] for expert opinion; final report [...] noted.. Dr. Anaya Davis Interpretation provided at [facility], [address] [place] [address]. Gross Description Prepared in endo were 4 slides.(2AD) Also received was a needle rinse in [employer] for cell block. Needle rinse obtained at 10:36 and placed in formalin at 17:00 with a total formalin fixation time of 8 hours. Source of Specimen Intra pancreatic ductal vgea-OTBN-bnzq needle aspiration Level 1 H&E, Level 2 unstained, Level 3 unstained, Level 4 unstained, Level 5 unstained, Level 6 unstained, Level 7 unstained, Level 8 unstained, Level 9 unstained, Level 10 H&E, Slides Made x 4 Fee Code(s): 1; 19887, 38232, 36810, 26576 Glucose Glucometer (BldC) [M ass/Vol]on 04-04-2024 Glucose [Mass/Vol] 111 mg/dL High 65-99 [facility] Glucose [Mass/Vol] 116 mg/dL High 65-99 [facility] Surgical Pathologyon 024 Surgical Pathology Normal [facility] Comment on above: Result Comment: [facility] [address] [place] [address] Surgical Pathology Consultation ADDENDUM [place] Patient Name:ZEV CRYSTAL:1955 (Age: 68)Gender:MTaken:04/04/2024eported:04/06/2024hysician(s):Katarina Reeder MD ([phone])Copy To: Rec. #:[id number]: #[id number] Final Pathologic Diagnosis Gastric biopsy: Mild chronic inactive gastritis. No intestinal metaplasia or dysplasia. Immunohistochemistry for Helicobacter pylori organisms is pending; addendum to follow. Report Electronically Signed Out walloyd/04/06/2024Cm Davis MD Addendum ([facility]) Date Reported: 04/09/2024 Immunohistochemistry (with appropriate controls) for Helicobacter pylori organisms is NEGATIVE. Electronically Signed Out Cm Davis MD Interpretation performed at [facility], [address] [place] [address], [place] [address], License number: [id number]. Clinical History Pancreatic duct dilated. 1. R/O H. Pylori Gross Description Received in formalin labeled SMILEY, gastric biopsy are 8 pale-bermeo delicate soft tissue fragments, 0.1-0.5 cm in greatest dimension. The specimens are filtered and submitted in a single cassette. (1,ns,E30-20106, m7) TB tgb/04/04/2024NSK Specimen(s) Received Gastric biopsy Fee Codes(s): 1; 19943, 45360 Measure post void residualon 02-03-2024 Volume 72 cc's [employer] [facility] Ambulatory Visit Summaryon 0 12-26-2023 Ambulatory Visit [...] for choosing us for your care. Normal [facility] Consent for Procedure/Surger yon 12-26-2023 Consent for Procedure/Surgery [id number]#[id number] Normal [facility] Physician Referralon 024 Physician Referral [id number]#[id number] Normal [facility] Measure post void residualOr dered By: Gabrielle Moreno on 09-30-2023 Volume 71ccs [facility] CA 19-9on 12-04-2022 CA 19-9 15 U/mL Normal 0-[address] [facility] Comment on above: Result Comment: [employer] Electrochemiluminescence Immunoassay (ECLIA) . Values obtained with different assay methods or kits cannot be used interchangeably. Results cannot be interpreted as absolute evidence of the presence or absence of malignant disease. Performed By: #### C A 19,9 #### [facility] [address] [address] [address] Sayra Angel US KIDNEYSon 12-04-2022 US KIDNEYS US KIDNEYS EXAM DATE: 12/04/2022 9:18 AM MDT COMPARISON: MRI abdomen without contrast 11/30/2022. CT abdomen and pelvis without contrast 10/28/2022. CT abdomen and pelvis with contrast 06/30/2019. INDICATION: Right kidney mass. TECHNIQUE: Real-time ultrasound scanning of the kidneys and bladder was performed by the biometrics experimentalist. Rf Microwave Engineer static images are submitted for review. FINDINGS: [...] by: GUSTAVO GONZALEZ Date: 2022-12-04 13:03 Normal [facility] MRI ABDOMEN WO CONon 023 MRI ABDOMEN WO CON EXAMINATION: MRI ABD OMEN WO CON HISTORY: Imaging of abdomen abnormal COMPARISON: Report from CT abdomen pelvis 10/28/2022 performed at [facility] TECHNIQUE: MRCP was performed without contrast for [...] appreciable mass or stone. Electronically authenticated by: ZVE GREENWOOD Date: 2022-11-30 15:06 Normal [facility] XR FOREIGN BODY EYEon 2022 XR FOREIGN BODY EYE EXAMINATION: XR FORE IGN BODY EYE HISTORY: Foreign body in eye COMPARISON: No relevant comparison available. FINDINGS: ORBITS: Negative for a metallic foreign body. OTHER: Negative. IMPRESSION: 1. No metallic foreign body within the orbits. Electronically authenticated by: ZEV GREENWOOD Date: 2022-11-30 08:53 Normal [facility] Vital Signs Date Time Vital Sign Value Performing Clinician Celestei barbara 03-21-2025 11:43-0400 Body height 175.3 cm Zac Lombardi MD Work Phone: [facility] 03-21-2025 11:43-0400 Body mass index (BMI) [Ratio] 21.41 kg/m2 Zac Lombardi MD Work Phone: [facility] 03-21-2025 11:43-0400 Body weight 65.77 kg Zac Lombardi MD Work Phone: [facility] 03-21-2025 11:43-0400 Diastolic blood pressure 78 mm[Hg] Zac Lombardi MD Work Phone: [facility] 03-21-2025 11:43-0400 Respiratory rate 18 /min Zac Lombardi MD Work Phone: [facility] 03-21-2025 11:43-0400 Systolic blood pressure 142 mm[Hg] Zac Lombardi MD Work Phone: [facility] [employer] [facility] 03-21-2025 09:47-0400 Body height 175.3 cm Stanley Gillette MD Work Phone: [facility] [employer] [facility] 03-21-2025 09:47-0400 Body mass index (BMI) [Ratio] 21.52 kg/m2 Stanley Gillette MD Work Phone: [facility] [employer] [facility] 03-21-2025 09:47-0400 Body weight 66.13 kg Stanley Gillette MD Work Phone: [facility] [employer] [facility] 03-21-2025 09:47-0400 Diastolic blood pressure 66 mm[Hg] Stanley Gillette MD Work Phone: [facility] [employer] [facility] 03-21-2025 09:47-0400 Heart rate 68 /min Stanley Gillette MD Work Phone: [facility] [employer] [facility] 03-21-2025 09:47-0400 Respiratory rate 17 /min Stanley Gillette MD Work Phone: [facility] [employer] [facility] 03-21-2025 09:47-0400 SaO2% (BldA) [Mass fraction] 92 % Stanley Gillette MD Work Phone: [facility] [employer] [facility] 03-21-2025 09:47-0400 Systolic blood pressure 140 mm[Hg] Stanley Gillette MD Work Phone: [facility] [employer] [facility] 02-07-2025 09:59-0400 Body mass index (BMI) [Ratio] 21 kg/m2 Zac Lombardi MD Work Phone: [facility] [employer] [facility] 02-07-2025 09:59-0400 Body weight 64.5 kg Zac Lombardi MD Work Phone: [facility] [employer] 02-07-2025 09:59-0400 Diastolic blood pressure 76 mm[Hg] Zac Lombardi MD Work Phone: [facility] [employer] 02-07-2025 09:59-0400 Respiratory rate 18 /min Zac Lombardi MD Work Phone: [facility] 02-07-2025 09:59-0400 Systolic blood pressure 122 mm[Hg] Zac Lombardi MD Work Phone: [facility] 01-23-2025 15:22-0400 Body height 175.3 cm Demond Colindres MD Work Phone: [facility] 01-23-2025 15:22-0400 Body mass index (BMI) [Ratio] 20.97 kg/m2 Demond Colindres MD Work Phone: [facility] 01-23-2025 15:22-0400 Body weight 64.41 kg Demond Colindres MD Work Phone: [facility] 01-23-2025 15:22-0400 Diastolic blood pressure 66 mm[Hg] Demond Colindres MD Work Phone: [facility] 01-23-2025 15:22-0400 Heart rate 75 /min Demond Colindres MD Work Phone: [facility] 01-23-2025 15:22-0400 SaO2% (BldA) [Mass fraction] 98 % Demond Colindres MD Work Phone: [facility] 01-23-2025 15:22-0400 Systolic blood pressure 126 mm[Hg] Demond Colindres MD Work Phone: [facility] 01-11-2025 15:17-0400 Body height 175.3 cm Zac Lombardi MD Work Phone: [facility] 01-11-2025 15:17-0400 Body mass index (BMI) [Ratio] 21.12 kg/m2 Zac Lombardi MD Work Phone: [facility] 01-11-2025 15:17-0400 Body weight 64.86 kg Zac Lombardi MD Work Phone: [facility] 01-11-2025 15:17-0400 Diastolic blood pressure 54 mm[Hg] Zac Lombardi MD Work Phone: [facility] 01-11-2025 15:17-0400 Systolic blood pressure 108 mm[Hg] Zac Lombardi MD Work Phone: [facility] 12-18-2024 09:48-0400 Body height 175.3 cm [facility] 2 [facility] 12-18-2024 09:48-0400 Body mass index (BMI) [Ratio] 21.26 kg/m2 [facility] 2 [facility] 12-18-2024 09:48-0400 Body temperature 97.5 [degF] [facility] 2 [facility] 12-18-2024 09:48-0400 Body weight 65.3 kg Metro 2 [facility] 12-18-2024 09:48-0400 Diastolic blood pressure 66 mm[Hg] [facility] 2 [facility] 12-18-2024 09:48-0400 Heart rate 68 /min [facility] 2 [facility] 12-18-2024 09:48-0400 Respiratory rate 20 /min [facility] 2 [facility] 12-18-2024 09:48-0400 SaO2% (BldA) [Mass fraction] 97 % Metro 2 [facility] 12-18-2024 09:48-0400 Systolic blood pressure 119 mm[Hg] [facility] 2 [facility] 11-16-2024 10:21-0400 Body height 175.3 cm Stanley Gillette MD Work Phone: [facility] 11-16-2024 10:21-0400 Body mass index (BMI) [Ratio] 20.55 kg/m2 Stanley Gillette MD Work Phone: [facility] 11-16-2024 10:21-0400 Body temperature 97.5 [degF] Stanley iGllette MD Work Phone: [facility] 11-16-2024 10:21-0400 Body weight 63.14 kg Stanley Gillette MD Work Phone: [facility] 11-16-2024 10:21-0400 Diastolic blood pressure 69 mm[Hg] Stanley Gillette MD Work Phone: [facility] 11-16-2024 10:21-0400 Heart rate 83 /min Stanley Gillette MD Work Phone: [facility] 11-16-2024 10:21-0400 Respiratory rate 16 /min Stanley Gillette MD Work Phone: [facility] 11-16-2024 10:21-0400 SaO2% (BldA) [Mass fraction] 100 % Stanley Gillette MD Work Phone: [facility] 11-16-2024 10:21-0400 Systolic blood pressure 119 mm[Hg] Stanley Gillette MD Work Phone: [facility] 11-13-2024 11:31-0400 Body height 175.3 cm Mckinley Winkler MD Work Phone: [facility] 11-13-2024 11:31-0400 Body mass index (BMI) [Ratio] 21.12 kg/m2 Mckinley Winkler MD Work Phone: [facility] 11-13-2024 11:31-0400 Body weight 64.86 kg Mckinley Winkler MD Work Phone: [facility] 11-13-2024 11:31-0400 Diastolic blood pressure 60 mm[Hg] Mckinley Winkler MD Work Phone: [facility] 11-13-2024 11:31-0400 Heart rate 64 /min Mckinley Winkler MD Work Phone: [facility] 11-13-2024 11:31-0400 SaO2% (BldA) [Mass fraction] 95 % Mckinley Winkler MD Work Phone: [facility] 11-13-2024 11:31-0400 Systolic blood pressure 136 mm[Hg] Mckinley Winkler MD Work Phone: [facility] 10-25-2024 10:01-0400 Body height 175.3 cm Yung ALEJANDRO Work Phone: [facility] 10-25-2024 10:01-0400 Body mass index (BMI) [Ratio] 21.03 kg/m2 Yung Wolfe PA Work Phone: [facility] 10-25-2024 10:01-0400 Body weight 64.59 kg Yung Wolfe PA Work Phone: [facility] 10-25-2024 10:01-0400 Diastolic blood pressure 69 mm[Hg] Yung Wolfe PA Work Phone: [facility] 10-25-2024 10:01-0400 Heart rate 71 /min Yung Wolfe PA Work Phone: [facility] 10-25-2024 10:01-0400 Systolic blood pressure 120 mm[Hg] Yung Wolfe PA Work Phone: [facility] 08-23-2024 11:01-0500 Body height 175.3 cm Zac Lombardi MD Work Phone: [facility] 08-23-2024 11:01-0500 Body mass index (BMI) [Ratio] 21.12 kg/m2 Zac Lombardi MD Work Phone: [facility] 08-23-2024 11:01-0500 Body weight 64.86 kg Zac Lombardi MD Work Phone: [facility] 08-23-2024 11:01-0500 Diastolic blood pressure 80 mm[Hg] Zac Lombardi MD Work Phone: [facility] 08-23-2024 11:01-0500 Systolic blood pressure 146 mm[Hg] Zac Lombardi MD Work Phone: [facility] 06-26-2024 13:59-0500 Body mass index (BMI) [Ratio] 20.38 kg/m2 Yung Wolfe PA Work Phone: [facility] 06-26-2024 13:59-0500 Body weight 62.6 kg Yung [facility]LEJANDRO [facility] 06-26-2024 13:59-0500 Diastolic blood pressure 60 mm[Hg] Yungsaad Lojaier PA Work Phone: [facility] 06-26-2024 13:59-0500 Heart rate 70 /min Yungsaad Lojaier PA Work Phone: [facility] 06-26-2024 13:59-0500 Systolic blood pressure 118 mm[Hg] Yungsaad Ljoaier PA Work Phone: [facility] 05-30-2024 15:00-0500 Body mass index (BMI) [Ratio] 20.64 kg/m2 Yungsaad Lojaier PA Work Phone: [facility] [employer] 05-30-2024 15:00-0500 Body weight 63.41 kg Yungsaad Wolfe PA Work Phone: [facility] 05-30-2024 15:00-0500 Diastolic blood pressure 79 mm[Hg] Yungsaad Lojaier PA Work Phone: [facility] [employer] 05-30-2024 15:00-0500 Heart rate 86 /min Yungsaad Wolfe PA Work Phone: [facility] [employer] 05-30-2024 15:00-0500 Systolic blood pressure 142 mm[Hg] Yungsaad Lojaier PA Work Phone: [facility] 05-25-2024 09:21-0400 Body height 175.3 cm Stanley Gillette MD [facility] 05-25-2024 09:21-0400 Body mass index (BMI) [Ratio] 20.99 kg/m2 Stanley Gillette MD [facility] 05-25-2024 09:21-0400 Body temperature 97.2 [degF] Stanley Gillette MD [facility] 05-25-2024 09:21-0400 Body weight 64.5 kg Stanley Gillette MD Work Phone: [facility] [employer] 05-25-2024 09:21-0400 Diastolic blood pressure 67 mm[Hg] Stanley Gillette MD Work Phone: [facility] 05-25-2024 09:21-0400 Heart rate 77 /min Stanley Gillette MD Work Phone: [facility] 05-25-2024 09:21-0400 Respiratory rate 16 /min Stanley Gillette MD Work Phone: [facility] [employer] 05-25-2024 09:21-0400 SaO2% (BldA) [Mass fraction] 100 % Stanley Gillette MD Work Phone: [facility] 05-25-2024 09:21-0400 Systolic blood pressure 156 mm[Hg] Stanley Gillette MD Work Phone: [facility] 05-22-2024 14:48-0400 Body mass index (BMI) [Ratio] 20.38 kg/m2 Amanda Matrisciano PA-C Work Phone: [facility] [employer] 05-22-2024 14:48-0400 Body weight 62.6 kg Amanda Matrisciano PA-C Work Phone: [facility] 05-22-2024 14:48-0400 Diastolic blood pressure 78 mm[Hg] Amanda Matrisciano PA-C Work Phone: [facility] 05-22-2024 14:48-0400 Heart rate 85 /min Amanda Matrisciano PA-C Work Phone: [facility] 05-22-2024 14:48-0400 Systolic blood pressure 182 mm[Hg] Amanda Matrisciano PA-C Work Phone: [facility] 05-17-2024 09:50-0400 Body temperature 97.7 [degF] Jeffrey Mcfadden MD Work Phone: [facility] [employer] 05-17-2024 09:50-0400 Diastolic blood pressure 71 mm[Hg] Jeffrey Mcfadden MD Work Phone: [facility] [employer] 05-17-2024 09:50-0400 Heart rate 90 /min Jeffrey Mcfadden MD Work Phone: [facility] 05-17-2024 09:50-0400 Respiratory rate 16 /min Jeffrey Mcfadden MD Work Phone: [facility] 05-17-2024 09:50-0400 Systolic blood pressure 139 mm[Hg] Jeffrey Mcfadden MD Work Phone: [facility] 05-17-2024 04:34-0400 Body mass index (BMI) [Ratio] 21.03 kg/m2 Jeffrey Mcfadden MD Work Phone: [facility] 05-17-2024 04:34-0400 Body weight 64.6 kg Jeffrey Mcfadden MD Work Phone: [facility] 05-17-2024 03:07-0400 SaO2% (BldA) [Mass fraction] 96 % Jeffrey Mcfadden MD Work Phone: [facility] 05-09-2024 21:34-0400 Body height 175.3 cm Jeffrey Mcfadden MD Work Phone: [facility] 05-09-2024 16:17-0400 Body temperature 98.6 [degF] Jeffrey Mcfadden MD Work Phone: [facility] 05-09-2024 16:17-0400 SaO2% (BldA) [Mass fraction] 99.7 % Jeffrey Mcfadden MD Work Phone: [facility] 05-09-2024 15:07-0400 Body temperature 98.6 [degF] Jeffrey Mcfadden MD Work Phone: [facility] 05-09-2024 15:07-0400 SaO2% (BldA) [Mass fraction] 99.8 % Jeffrey Mcfadden MD Work Phone: [facility] 05-09-2024 14:55-0400 Body temperature 98.6 [degF] Jeffrey Mcfadden MD Work Phone: [facility] 05-09-2024 14:55-0400 SaO2% (BldA) [Mass fraction] 99.8 % Jeffrey Mcfadden MD Work Phone: [facility] 05-09-2024 12:58-0400 Body temperature 98.6 [degF] Jeffrey Mcfadden MD Work Phone: [facility] 05-09-2024 12:58-0400 SaO2% (BldA) [Mass fraction] 99.9 % Jeffrey Mcfadden MD Work Phone: [facility] 04-25-2024 13:45-0400 Body height 175.3 cm [facility] 14 [facility] 04-25-2024 13:45-0400 Body mass index (BMI) [Ratio] 22.3 kg/m2 [facility] 14 [facility] 04-25-2024 13:45-0400 Body temperature 97.9 [degF] [facility] 14 [facility] 04-25-2024 13:45-0400 Body weight 68.5 kg [facility] 14 [facility] 04-25-2024 13:45-0400 Diastolic blood pressure 69 mm[Hg] [facility] 14 [facility] 04-25-2024 13:45-0400 Heart rate 71 /min [facility] 14 [facility] 04-25-2024 13:45-0400 Respiratory rate 16 /min [facility] 14 [facility] 04-25-2024 13:45-0400 SaO2% (BldA) [Mass fraction] 100 % [facility] 14 [facility] 04-25-2024 13:45-0400 Systolic blood pressure 139 mm[Hg] [facility] 14 [facility] 04-16-2024 14:28-0400 Body height 175.3 cm Zac Lombardi MD Work Phone: [facility] 04-16-2024 14:28-0400 Body mass index (BMI) [Ratio] 22.59 kg/m2 Zac Lombardi MD Work Phone: [facility] 04-16-2024 14:280400 Body weight 69.4 kg Zac Lombardi MD Work Phone: [facility] 04-16-2024 14:28-0400 Diastolic blood pressure 72 mm[Hg] Zac Lombardi MD Work Phone: [facility] 04-16-2024 14:28-0400 Systolic blood pressure 148 mm[Hg] Zac Lombardi MD Work Phone: [facility] 04-10-2024 15:22-0400 Body height 175.3 cm Jeffrey Mcfadden MD Work Phone: [facility] 04-10-2024 15:22-0400 Body mass index (BMI) [Ratio] 22.59 kg/m2 Jeffrey Mcfadden MD Work Phone: [facility] 04-10-2024 15:22-0400 Body weight 69.4 kg Jeffrey Mcfadden MD Work Phone: [facility] 04-10-2024 15:22-0400 Diastolic blood pressure 87 mm[Hg] Jeffrey Mcfadden MD Work Phone: [facility] 04-10-2024 15:22-0400 Heart rate 72 /min Jeffrey Mcfadden MD Work Phone: [facility] 04-10-2024 15:22-0400 Systolic blood pressure 152 mm[Hg] Jeffrey Mcfadden MD Work Phone: [facility] 04-02-2024 14:01-0400 Body mass index (BMI) [Ratio] 23.42 kg/m2 Zac Lombardi MD Work Phone: [facility] 04-02-2024 14:01-0400 Body weight 69.85 kg Zac Lombardi MD Work Phone: [facility] 04-02-2024 14:01-0400 Diastolic blood pressure 76 mm[Hg] Zac Lombardi MD Work Phone: [facility] 04-02-2024 14:01-0400 Heart rate 72 /min Zac Lombardi MD Work Phone: [facility] 04-02-2024 14:01-0400 Respiratory rate 18 /min Zac Lombardi MD Work Phone: [facility] 04-02-2024 14:01-0400 Systolic blood pressure 134 mm[Hg] Zac Lombardi MD Work Phone: [facility] 03-28-2024 13:23-0400 Body height 172.7 cm [facility] 3 [facility] 03-28-2024 13:23-0400 Body mass index (BMI) [Ratio] 21.29 kg/m2 [facility] 3 [facility] 03-28-2024 13:23-0400 Body weight 63.5 kg [facility] 3 [facility] 02-29-2024 11:12-0400 Body height 175.3 cm Polly Reeder MD Work Phone: [facility] 02-29-2024 11:12-0400 Body mass index (BMI) [Ratio] 20.91 kg/m2 Polly Reeder MD Work Phone: [facility] 02-29-2024 11:12-0400 Body weight 64.23 kg Polly Reeder MD Work Phone: [facility] 02-29-2024 11:12-0400 Diastolic blood pressure 68 mm[Hg] Polly Reeder MD Work Phone: [facility] 02-29-2024 11:12-0400 Heart rate 63 /min Polly Reeder MD Work Phone: [facility] 02-29-2024 11:12-0400 Systolic blood pressure 166 mm[Hg] Polly Reeder MD Work Phone: [facility] 02-14-2024 14:19-0400 Body mass index (BMI) [Ratio] 20.2 kg/m2 Jeffrey Mcfadden MD Work Phone: [facility] 02-14-2024 14:19-0400 Body weight 62.05 kg Jeffrey Mcfadden MD Work Phone: [facility] 02-14-2024 14:19-0400 Diastolic blood pressure 87 mm[Hg] Jeffrey Mcfadden MD Work Phone: [facility] 02-14-2024 14:19-0400 Heart rate 80 /min Jeffrey Mcfadden MD Work Phone: [facility] 02-14-2024 14:19-0400 Systolic blood pressure 150 mm[Hg] Jeffrey Mcfadden MD Work Phone: [facility] 02-10-2024 15:41-0400 Body height 175.3 cm Zac Lombardi MD Work Phone: [facility] 02-10-2024 15:41-0400 Body mass index (BMI) [Ratio] 19.79 kg/m2 Zac Lombardi MD Work Phone: [facility] 02-10-2024 15:41-0400 Body weight 60.78 kg Zac Lombardi MD Work Phone: [facility] 02-10-2024 15:41-0400 Diastolic blood pressure 82 mm[Hg] Zac Lombardi MD Work Phone: [facility] 02-10-2024 15:41-0400 Systolic blood pressure 126 mm[Hg] Zac Lombardi MD Work Phone: [facility] 02-03-2024 14:53-0400 Body height 175.3 cm Mary Telles MD Work Phone: [facility] 02-03-2024 14:53-0400 Body mass index (BMI) [Ratio] 19.79 kg/m2 Mary Telles MD Work Phone: [facility] 02-03-2024 14:53-0400 Body weight 60.78 kg Mary Telles MD Work Phone: [facility] 02-03-2024 14:53-0400 Diastolic blood pressure 83 mm[Hg] Mary Telles MD Work Phone: [facility] 02-03-2024 14:53-0400 Heart rate 74 /min Mary Telles MD Work Phone: [facility] 02-03-2024 14:53-0400 Systolic blood pressure 159 mm[Hg] Mary Telles MD Work Phone: [facility] 01-05-2024 12:14-0400 Body mass index (BMI) [Ratio] 19.49 kg/m2 [facility] 2 [facility] 01-05-2024 12:14-0400 Body weight 59.88 kg [facility] 2 [facility] 01-02-2024 10:14-0400 Diastolic blood pressure 76 mm[Hg] Mckinley Winkler MD Work Phone: [facility] Comment on above: manual cuff 01-02-2024 10:14-0400 Systolic blood pressure 138 mm[Hg] Mckinley Winkler MD Work Phone: [facility] Comment on above: manual cuff 01-02-2024 09:44-0400 Body height 175.3 cm Mckinley Winkler MD Work Phone: [facility] 01-02-2024 09:44-0400 Body mass index (BMI) [Ratio] 20.23 kg/m2 Mckinley Winkler MD Work Phone: [facility] 01-02-2024 09:44-0400 Body weight 62.14 kg Mckinley Winkler MD Work Phone: [facility] 01-02-2024 09:44-0400 Heart rate 62 /min Mckinley Winkler MD Work Phone: [facility] 01-02-2024 09:44-0400 SaO2% (BldA) [Mass fraction] 100 % Mckinley Winkler MD Work Phone: [facility] 12-30-2023 13:23-0400 Body height 175.3 cm Zac Lombardi MD Work Phone: [facility] 12-30-2023 13:23-0400 Body mass index (BMI) [Ratio] 20.38 kg/m2 Zac Lombardi MD Work Phone: [facility] 12-30-2023 13:23-0400 Body weight 62.6 kg Zac Lombardi MD Work Phone: [facility] 12-30-2023 13:23-0400 Diastolic blood pressure 86 mm[Hg] Zac Lombardi MD Work Phone: [facility] 12-30-2023 13:23-0400 Systolic blood pressure 142 mm[Hg] Zac Lombardi MD Work Phone: [facility] 12-26-2023 13:06-0400 Blood Pressure Location Ga FRANK [facility] 12-26-2023 13:06-0400 Diastolic blood pressure 81 mm[Hg] Ga FRANK [facility] 12-26-2023 13:06-0400 Heart rate 76 /min Ga JOAQUINL [facility] [place] 12-26-2023 13:06-0400 Respiratory rate 16 /min Ga JOAQUINL [facility] 12-26-2023 13:06-0400 Systolic blood pressure 161 mm[Hg] Ga JOAQUINL [facility] 11-11-2023 13:49-0400 Body height 175.3 cm Aravind HOLLIDAY Work Phone: [facility] 11-11-2023 13:49-0400 Body mass index (BMI) [Ratio] 19.7 kg/m2 Aravind Daniels APRN-UNDERWRITING SUPPORT MANAGER Work Phone: [facility] 11-11-2023 13:49-0400 Body weight 60.51 kg Aravind Daniels GROCERY SACKER-UNDERWRITING SUPPORT MANAGER Work Phone: [facility] [employer] [facility] 11-11-2023 13:49-0400 Diastolic blood pressure 81 mm[Hg] Aravind Daniels GROCERY SACKER-UNDERWRITING SUPPORT MANAGER Work Phone: [facility] [employer] [facility] 11-11-2023 13:49-0400 Heart rate 64 /min Aravind Daniels GROCERY SACKER-UNDERWRITING SUPPORT MANAGER Work Phone: [facility] [employer] [facility] 11-11-2023 13:49-0400 SaO2% (BldA) [Mass fraction] 99 % Aravind Daniels APRN-UNDERWRITING SUPPORT MANAGER Work Phone: [facility] [employer] [facility] 11-11-2023 13:49-0400 Systolic blood pressure 125 mm[Hg] Aravind Daniels APRN-UNDERWRITING SUPPORT MANAGER Work Phone: [facility] [employer] [facility] 09-30-2023 15:11-0500 Body height 175.3 cm Mary Telles MD Work Phone: [facility] [employer] [facility] 09-30-2023 15:11-0500 Body mass index (BMI) [Ratio] 27.91 kg/m2 Mary Telles MD Work Phone: [facility] [employer] [facility] 09-30-2023 15:11-0500 Body weight 85.73 kg Mary Telles MD Work Phone: [facility] [employer] [facility] 09-30-2023 15:11-0500 Diastolic blood pressure 69 mm[Hg] Mary Telles MD Work Phone: [facility] [employer] [facility] 09-30-2023 15:11-0500 Heart rate 69 /min Mary Telles MD Work Phone: [facility] [employer] [facility] 09-30-2023 15:11-0500 Systolic blood pressure 116 mm[Hg] Mary Telles MD [facility]: [facility] 08-05-2023 15:21-0500 Body height 175.3 cm Mary Telles MD Work [facility]: [facility] 08-05-2023 15:21-0500 Body mass index (BMI) [Ratio] 27.91 kg/m2 Mary Telles MD [facility]: [facility] 08-05-2023 15:21-0500 Body weight 85.73 kg Mary Telles MD Work [facility]: [facility] 08-05-2023 15:21-0500 Diastolic blood pressure 99 mm[Hg] Mary Telles MD Work Phone: [facility] 08-05-2023 15:21-0500 Heart rate 82 /min Mary Telles MD Work Phone: [facility] 08-05-2023 15:21-0500 Systolic blood pressure 170 mm[Hg] Mary Telles MD Work Phone: [facility] IActionable Encounters Encounter Date Encounter Type Care Provider Facility Start: 04-02-2025 End: 04-02-2025 Patient encounter procedure [facility] Comment on above: Seborrheic keratosis , inflamed (Primary Dx); Neoplasm of unspecified behavior of bone, soft tissue, and skin; Actinic keratosis Start: 04-02-2025 End: 04-02-2025 Bamboo flowsheet Shazia Arnold MD [facility] Start: 04-02-2025 End: 04-02-2025 Bamboo flowsheet Shazia Arnold MD Work Phone: [facility] Start: 03-21-2025 End: 03-21-2025 Documentation procedure Roxanne Zhu [facility] - Medical Oncology Start: 03-21-2025 End: 03-21-2025 Postop follow up visit related to original px Zac Lombardi MD Work Phone: [facility] Comment on above: Critical limb ischem ia of both lower extremities (CMS-HCC) (Primary Dx); Claudication Start: 03-21-2025 End: 03-21-2025 [facility] Start: 03-21-2025 End: 03-21-2025 Patient encounter procedure Stanley Gillette MD Work Phone: Libia Bowman [facility] - Medical Oncology Comment on above: Renal cell carcinoma ([facility]HCC); CLL (chronic lymphocytic leukemia) ([facility]-HCC) Start: 03-21-2025 End: 03-21-2025 ambulatory ANGEL Clint NAIN [facility] Start: 03-13-2025 ambulatory [facility] Clint [facility] Start: 02-07-2025 End: 02-07-2025 Postop follow up visit related to original px Zac Lombardi MD Work Phone: [facility] Comment on above: Aneurysm of infraren al abdominal aorta, unspecified whether ruptured (Primary Dx) Start: 02-07-2025 End: 02-07-2025 [facility] Start: 01-23-2025 End: 01-23-2025 Postop follow up visit related to original px Demond Colindres MD Work Phone: [facility] Comment on above: PAD (peripheral yonis ry disease) (Primary Dx) Start: 01-23-2025 End: 01-23-2025 ambulatory DEMOND COLINDRES [facility] Start: 01-22-2025 End: 01-22-2025 [facility] Start: 01-11-2025 End: 01-11-2025 Postop follow up visit related to original px Zac Lombardi MD Work Phone: [facility] Comment on above: Claudication (Primar y Dx) Start: 01-11-2025 End: 01-11-2025 ambulatory [facility] Start: 12-26-2024 End: 12-27-2024 Evaluation and management of inpatient [facility] Start: 12-19-2024 End: 12-19-2024 Bamboo flowsheet Shazia Arnold MD Work Phone: [facility] Start: 12-19-2024 End: 12-19-2024 Bamboo flowsheet Shazia Arnold MD Work Phone: [facility] Start: 12-19-2024 End: 12-19-2024 Office outpatient visit 15 minutes Shazia Arnold MD Work Phone: [facility] Comment on above: Eureka's disease (Pr imary Dx); 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 Start: 12-19-2024 End: 12-19-2024 ambulatory SHAZIA ARNOLD Not Available Start: 12-18-2024 End: 12-18-2024 ambulatory [facility] Start: 12-18-2024 End: 12-18-2024 Patient encounter procedure [facility] Pat Provider 2 [facility] Comment on above: Preop testing (Prima ry Dx) Start: 12-18-2024 End: 12-18-2024 Patient encounter status [facility] Start: 12-14-2024 End: 12-14-2024 ambulatory [facility] Start: 11-16-2024 End: 11-16-2024 Documentation procedure Adal [facility] - Medical Oncology Start: 11-16-2024 End: 11-16-2024 Office outpatient visit 40 minutes Stanley Gillette MD Work Phone: Libia Zhu [facility] - Medical Oncology Comment on above: Renal cell carcinoma ([facility]-HCC); CLL (chronic lymphocytic leukemia) ([facility]-HCC); Pancreatic neoplasm Start: 11-16-2024 End: 11-16-2024 ambulatory [facility] Start: 11-13-2024 End: 11-13-2024 Office outpatient visit 25 minutes Mckinley Winkler MD Work Phone: [facility] Comment on above: Essential hypertensi on (Primary Dx); Mixed hyperlipidemia; Hypertrophic cardiomyopathy (CMS-HCC); Abnormal ECG; PAD (peripheral artery disease); Chronic kidney disease, unspecified CKD stage; Abnormal echocardiogram; Preop cardiovascular exam; Coronary artery disease involving [place] coronary artery of [place] heart without angina pectoris Start: 11-13-2024 End: 11-13-2024 Patient encounter status Mckinley Winkler MD Work Phone: [facility] Start: 11-13-2024 End: 11-13-2024 ambulatory [facility] Emani [facility] Start: 11-13-2024 End: 11-13-2024 ambulatory [facility] Start: 11-09-2024 End: 11-09-2024 Telephone encounter Lizette Perez [facility] Start: 11-01-2024 End: 11-01-2024 ambulatory [facility] Start: 10-30-2024 End: 10-30-2024 Bamboo flowsrobby Arnold MD Work Phone: [facility] Start: 10-30-2024 End: 11-02-2024 Bamboo flowsheet Shazia Arnold MD Work Phone: [facility] Start: 10-30-2024 End: 11-02-2024 External Result Encounter Shazia Arnold MD Work Phone: [facility] Department Unsolicited Start: 10-30-2024 End: 10-30-2024 Office outpatient visit 15 minutes Shazia Arnold MD Work Phone: [facility] Comment on above: Melanocytic nevus of trunk (Primary Dx); Lentigines; Seborrheic keratosis; Capillary angioma; Neoplasm of unspecified behavior of bone, soft tissue, and skin; Actinic keratosis; History of skin cancer Start: 10-30-2024 End: 10-30-2024 ambulatory SHAZIA ARNOLD Not Available Start: 10-25-2024 End: 10-25-2024 Office outpatient visit 15 minutes Yung ALEJANDRO Work Phone: [facility] Comment on above: IPMN (intraductal pa pillary mucinous neoplasm) (Primary Dx); Exocrine pancreatic insufficiency; Renal cell carcinoma ([facility]) Start: 10-25-2024 End: 10-25-2024 ambulatory [facility] Start: 08-23-2024 End: 08-23-2024 Office outpatient visit 25 minutes Zac Lombardi MD Work Phone: [facility] Comment on above: Claudication ([facility]HC C) (Primary Dx); PAD (peripheral artery disease) ([facility]-HCC); Chronic kidney disease, unspecified CKD stage; Renal cell carcinoma ([facility]); Aneurysm of infrarenal abdominal aorta, unspecified whether ruptured ([facility]-HCC); CLL (chronic lymphocytic leukemia) ([facility]); Hypertrophic cardiomyopathy ([facility]) Start: 08-23-2024 End: 08-23-2024 ambulatory [facility] Start: 08-22-2024 End: 08-22-2024 Orders Only [facility] Comment on above: End stage renal dise ase ([facility]-HCC) (Primary Dx); Abdominal aortic ectasia ([facility]); PAD (peripheral artery disease) ([facility]-H[facility]) End stage renal dise ase ([facility]-HCC) (Primary Dx); PAD (peripheral artery disease) ([facility]-HCC); Essential hypertension Start: 08-17-2024 End: 08-17-2024 Telephone encounter [facility] Start: 08-16-2024 End: 08-16-2024 ambulatory ANGEL Clint NAIN [facility] Start: 08-14-2024 End: 08-14-2024 ambulatory [facility] Start: 08-13-2024 End: 08-13-2024 ambulatory [facility] Start: 08-03-2024 End: 08-04-2024 ambulatory [facility] Start: 07-24-2024 End: 07-24-[address] [facility] Start: 07-05-2024 End: 07-05-2024 Orders Only Yung ALEJANDRO Work Phone: [facility] Comment on above: Exocrine pancreatic insufficiency Start: 06-26-2024 End: 06-26-2024 Postop follow up visit related to original px Yung ALEJANDRO Work Phone: [facility] Comment on above: Exocrine pancreatic insufficiency (Primary Dx); Postoperative visit; IPMN (intraductal papillary mucinous neoplasm) Start: 06-26-2024 End: 06-26-2024 [facility] Start: 06-25-2024 End: 06-25-2024 ambulatory [facility] Start: 05-30-2024 End: 05-30-2024 Postop follow up visit related to original px Yung ALEJANDRO Work Phone: [facility] Pancreat[facility] Endocrine [facility] Comment on above: Postoperative visit (Primary Dx); IPMN (intraductal papillary mucinous neoplasm); B-cell lymphoma of intra-abdominal lymph nodes, unspecified B-cell lymphoma type ([facility]) Start: 05-30-2024 End: 05-30-2024 ambulatory [facility] Start: 05-25-2024 End: 05-25-2024 Documentation procedure [facility]al [facility] Start: 05-25-2024 End: 05-25-2024 Office outpatient new 60 minutes Stanley Gillette MD Work Phone: Libia Zhu [facility] - Medical Oncology Comment on above: CLL (chronic lymphoc ytic leukemia) ([facility]) (Primary Dx); IPMN (intraductal papillary mucinous neoplasm); B-cell lymphoma of intra-abdominal lymph nodes, unspecified B-cell lymphoma type ([facility]-H[facility]); Renal cell carcinoma ([facility]) Start: 05-25-2024 End: 05-25-2024 ambulatory STANLEY GILLETTE [facility] Start: 05-23-2024 End: 05-23-2024 ambulatory DYLAN MONTILLA [facility] Start: 05-22-2024 End: 05-22-2024 Postop follow up visit related to original px [facility] PA-C Work Phone: [facility] Pancreatic [facility] Endocrine [facility] Comment on above: IPMN (intraductal pa pillary mucinous neoplasm) (Primary Dx); B-cell lymphoma of intra-abdominal lymph nodes, unspecified B-cell lymphoma type ([facility]) Start: 05-22-2024 End: 05-22-2024 [facility] Start: 05-21-2024 End: 05-21-2024 Telephone encounter Starla Corral LPN [facility] Start: 05-09-2024 End: 05-17-2024 Evaluation and management of inpatient Jeffrey Mcfadden MD Work Phone: [facility] 5W Acute Start: 04-30-2024 End: 04-30-2024 Lily Arnold MD Work Phone: [facility] [...] Patient encounter procedure [facility] Pat Provider 14 [facility] Comment on above: Preop testing (Prima ry Dx); Pancreatic neoplasm; Elevated blood sugar Start: 04-25-2024 End: 04-25-2024 Patient encounter status [facility] Start: 04-25-2024 End: 04-25-2024 ambulatory [facility] Start: 04-25-2024 Encounter for other preprocedural examination DYLAN Jayden [facility] Start: 04-20-2024 End: 04-20-2024 Telephone encounter Jeffrey Mcfadden MD Work Phone: [facility] Start: 04-16-2024 End: 04-16-2024 Office outpatient visit 15 minutes Zac Lombardi MD Work Phone: [facility] Comment on above: Infrarenal abdominal aortic aneurysm (AAA) without rupture (CMS-HCC) (Primary Dx); PAD (peripheral artery disease) (CMS-HCC); Hypertrophic cardiomyopathy (CMS-HCC); Renal cell carcinoma (CMS-HCC); End stage renal disease (CMS-HCC) Start: 04-16-2024 End: 04-16-2024 [facility] Start: 04-10-2024 End: 04-10-2024 Office outpatient new 45 minutes Jeffrey Mcfadden MD Work Phone: [facility] Comment on above: IPMN (intraductal pa pillary mucinous neoplasm) (Primary Dx); Pancreatic duct dilated Start: 04-10-2024 End: 04-10-2024 ambulatory [facility] Start: 04-07-2024 End: 04-08-2024 Emergency department patient visit ANJU Randolph [facility] Start: 04-05-2024 End: 04-05-2024 Evaluation and management of inpatient ALLY AYERS [facility] Start: 04-04-2024 End: 04-05-2024 [facility] Start: 04-02-2024 End: 04-02-2024 Office outpatient visit 25 minutes Zac Lombardi MD Work Phone: [facility] Comment on above: Renal cell carcinoma (CMS-HCC) (Primary Dx); Infrarenal abdominal aortic aneurysm (AAA) without rupture (CMS-HCC); End stage renal disease (CMS-HCC); Hypertrophic cardiomyopathy (CMS-HCC); 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[facility]) Start: 04-02-2024 End: 04-02-2024 [facility] Start: 03-28-2024 End: 03-28-2024 Evaluation and management of inpatient DYLAN MONTILLA [facility] Start: 03-28-2024 End: 03-28-2024 Admission to [facility] Phone Call Provider 3 [facility] Start: 03-06-2024 End: 03-09-2024 Refill [facility] Comment on above: Exocrine pancreatic insufficiency (Primary Dx) Start: 02-29-2024 End: 02-29-2024 Orders Only Polly Reeder MD Work Phone: [facility] Comment on above: Chronic pancreatitis , unspecified pancreatitis type (CMS-HCC) (Primary Dx) Start: 02-29-2024 End: 02-29-2024 Office outpatient new 45 minutes Polly Reeder MD Work Phone: [facility] Comment on above: Encounter for colore ctal cancer screening (Primary Dx); Pancreatic duct dilated Start: 02-16-2024 End: 02-16-2024 Orders Only Yung ALEJANDRO [facility] Comment on above: Pancreatic duct dila myriam (Primary Dx); Pancreatic lesion Start: 02-14-2024 End: 02-14-2024 Office consultation new/estab patient 40 min Jeffrey Mcfadden MD Work Phone: [facility] Comment on above: Pancreatic duct dila myriam Start: 02-13-2024 End: 02-13-2024 Orders Only Lexus Ibanez [facility] Comment on above: Renal cell carcinoma (CMS-HCC) (Primary Dx) Start: 02-10-2024 End: 02-10-2024 Postop follow up visit related to original px Zac Lombardi MD Work Phone: [facility] Comment on above: Infrarenal abdominal aortic aneurysm (AAA) without rupture (CMS-HCC) (Primary Dx); Renal cell carcinoma (CMS-HCC); Hypertrophic cardiomyopathy (CMS-HCC); End stage renal disease (CMS-HCC) Start: 02-03-2024 End: 02-03-2024 Office outpatient visit 25 minutes Mary Telles MD Work Phone: [facility] Comment on above: Right renal mass (Pr imary Dx); Pancreatic duct dilated; Renal cell carcinoma (CMS-HCC) Start: 01-03-2024 End: 01-05-2024 Admission to [facility] Phone Call Provider 2 [facility] Start: 01-02-2024 Encounter for preprocedural cardiovascular examination MCKINLEY WINKLER [facility] Start: 01-02-2024 End: 01-02-2024 Office outpatient visit 25 minutes Mckinley Winkler MD Work Phone: [facility] Comment on above: Essential hypertensi on (Primary Dx); Infrarenal abdominal aortic aneurysm (AAA) without rupture (CMS-HCC); Mixed hyperlipidemia; Hypertrophic cardiomyopathy (CMS-HCC); Abnormal ECG; PAD (peripheral artery disease) (CMS-HCC); Chronic kidney disease, unspecified CKD stage; Chest discomfort; Abnormal echocardiogram; Preop cardiovascular exam Start: 01-02-2024 End: 01-02-2024 Patient encounter status Mckinley Winkler MD Work Phone: [facility] Start: 01-02-2024 End: 01-02-2024 ambulatory MCKINLEY WINKLER [facility] Start: 12-30-2023 End: 12-30-2023 Office outpatient visit 25 minutes Zac Lombardi MD Work Phone: [facility] Comment on above: Renal cell carcinoma ([facility]) (Primary Dx); Infrarenal abdominal aortic aneurysm (AAA) without rupture ([facility]-H[facility]); End stage renal disease ([facility]); Essential hypertension; Cigarette nicotine dependence without complication Start: 12-28-2023 End: 12-28-2023 ambulatory Ga R NILL Facility:[facility] [place] Comment on above: End stage renal dise ase ([facility]-HCC) (Primary Dx) Start: 12-26-2023 End: 12-26-2023 ambulatory Ga R NILL Facility: [place] Start: 12-26-2023 End: 12-26-2023 Patient encounter procedure Ga R NILL [facility] [place] Start: 12-22-2023 ambulatory Dylan Hoy Facility:[facility] [place] Start: 11-28-2023 ambulatory Dylan Hoy Facility:[facility] [place] Start: 11-11-2023 End: 11-11-2023 Office outpatient new 60 minutes Aravind HOLLIDAY Work Phone: [facility] Comment on above: Atherosclerosis of n ative coronary artery of [place] heart without angina pectoris (Primary Dx); Essential hypertension; Infrarenal abdominal aortic aneurysm (AAA) without rupture ([facility]); Mixed hyperlipidemia; Cigarette nicotine dependence without complication; Hypertrophic cardiomyopathy ([facility]); Abnormal ECG; PAD (peripheral artery disease) ([facility]); Chronic kidney disease, unspecified CKD stage; Chest discomfort Start: 10-04-2023 Telephone encounter Mary urena MD Work Phone: [facility] Start: 09-30-2023 End: 09-30-2023 Office outpatient visit 15 minutes Mary Telles MD Work Phone: [facility] Comment on above: Right renal mass (Pr imary Dx); Renal cell carcinoma Start: 09-13-2023 Telephone encounter Mary urena MD Work Phone: [facility] Start: 08-15-2023 Telephone encounter Lexus Mckinnon [facility] Start: 08-05-2023 End: 08-05-2023 Postop follow up visit related to original px Mary Telles MD Work Phone: [facility] Comment on above: Renal mass (Primary Dx); Renal cell carcinoma Start: 02-21-2023 ambulatory Dylan Montilla Facility:[facility] Start: 12-27-2022 ambulatory Dylan Montilla [facility] Start: 12-04-2022 End: 12-05-[address] DYLAN MONTILLA . Facility: Start: 12-03-2022 End: 12-04-[address] DYLAN MONTILLA . Facility:[facility] Start: 11-30-2022 End: 12-01-[address] DYLAN MONTILLA . Facility: Procedures Date Procedure Procedure Detail Performing Clinician Start: 04-02-2025 End: 04-02-2025 CRYOTHERAPY SKIN LESION Shazia Arnold MD Work Phone: Start: 04-02-2025 End: 04-02-2025 SKIN / NAIL BIOPSY Shazia Arnold MD Work Phone: Start: 12-26-2024 Adult depression scr eening assessment Zac Lombardi MD Work Phone: Start: 12-19-2024 DESTRUCTION OF LESION Deisi Arnold MD Work Phone: Start: 11-16-2024 Follow-up visit Follow-up STANLEY GILLETTE Start: 10-30-2024 CRYOTHERAPY SKIN LESION Shazia Arnold MD Work Phone: Start: 10-30-2024 End: 10-30-2024 SKIN / NAIL BIOPSY Shazia Arnold MD Work Phone: Start: 10-30-2024 ZZDERMATOPATHOLOGY E XAM UNORDERABLE Shazia Arnold MD Work Phone: Start: 05-17-2024 Gluc bld gluc mntr d ev cleared fda spec home use Jeffrey Mcfadden MD Work Phone: Start: 05-17-2024 HEMODIALYSIS INPATIENT Willard De La Paz MD Work Phone: Start: 05-17-2024 Comprehensive metabolic panel Kylie ALEJANDRO Work Phone: Start: 05-17-2024 [...] Mcfadden MD Work Phone: Start: 05-16-2024 Comprehensive metabolic panel Kylie ALEJANDRO Work Phone: Start: 05-16-2024 [...] Mcfadden MD Work Phone: Start: 05-15-2024 Comprehensive metabolic panel Kylie ALEJANDRO Work Phone: Start: 05-15-2024 [...] Mcfadden MD Work Phone: Start: 05-14-2024 Comprehensive metabolic panel Kylie ALEJANDRO Work Phone: Start: 05-13-2024 [...] MD Work Phone: Start: 05-12-2024 HEMODIALYSIS INPATIENT Vidhit Jasmin DO Work Phone: Start: 05-12-2024 End: 05-12-2024 [...] Mcfadden MD Work Phone: Start: 05-11-2024 Comprehensive metabolic panel Kylie ALEJANDRO Work Phone: [...] MD Work Phone: Start: 05-10-2024 HEMODIALYSIS INPATIENT Vidhit Jasmin DO Work Phone: Start: 05-10-2024 End: 05-10-2024 [...] Rachel MD Work Phone: Start: 05-10-2024 Comprehensive metabolic panel yKlie ALEJANDRO Work Phone: Start: 05-10-2024 Gluc bld [...] Mcfadden MD Work Phone: Start: 05-09-2024 Comprehensive metabolic panel Stanley Thomas MD Work Phone: Start: [...] Phone: Start: 04-30-2024 CRYOTHERAPY SKIN LESION Shazia Arnold MD Work Phone: Start: 04-25-2024 Antibody screen Metro 1 4 Start: 04-25-2024 Comprehensive metabolic panel Jeffrey Mcfadden MD Work Phone: Start: 04-25-2024 Ecg routine ecg w/le ast 12 lds trcg only w/o i&r Jeffrey Mcfadden MD Work Phone: Start: 04-25-2024 Blood typing serologic abo Jeffrey Mcfadden MD Work Phone: Start: 04-25-2024 CROSSMATCH RBC Jeffrey Mcfadden MD Work Phone: Start: 04-02-2024 Follow-up visit Follow-up ZAC LOMBARDI Start: 02-03-2024 MEASURE POST VOID RESIDUAL Mary Telles MD Work Phone: Start: 01-02-2024 Follow-up visit Follow-up MCKINLEY WINKLER Start: 09-30-2023 MEASURE POST VOID RESIDUAL Mary Telles MD Work Phone: Start: 07-21-2023 Adult depression scr eening assessment Mary Telles MD Work Phone: Start: 03-15-2012 Colonoscopy Ga NI LL Catheterization of s ubclavian vein Ga NILGracie Cholecystectomy Ga NILL Excision of basal ce ll carcinoma Ga NILL Comment on above: face Kidney biopsy Ga FRANK Partial nephrectomy Ga FRANK Plan of Treatment Date Care Activity Detail Author Start: 05-15-2026 Tobacco Counseling Tobacco Counseling [facility] Start: 03-21-2026 Adult BMI Screening Adult BMI Screening [facility] Start: 03-21-2026 Tobacco Screening Tobacco Screening [facility] Start: 02-07-2026 Adult BMI Screening Adult BMI Screening [facility] Start: 01-23-2026 Adult BMI Screening Adult BMI Screening [facility] Start: 12-27-2025 Adult BMI Screening Adult BMI Screening [facility] Start: 12-26-2025 Depression Screening Depression Screening [facility] Start: 12-26-2025 Tobacco Screening Tobacco Screening [facility] Start: 12-18-2025 Adult BMI Screening Adult BMI Screening [facility] Start: 12-18-2025 Tobacco Screening Tobacco Screening [facility] Start: 11-16-2025 Adult BMI Screening Adult BMI Screening [facility] Start: 11-16-2025 Tobacco Screening Tobacco Screening [facility] Start: 11-13-2025 Adult BMI Screening Adult BMI Screening [facility] Start: 11-13-2025 Tobacco Screening Tobacco Screening [facility] Start: 11-01-2025 Adult BMI Screening Adult BMI Screening [facility] Start: 10-25-2025 Adult BMI Screening Adult BMI Screening [facility] Start: 10-25-2025 Tobacco Screening Tobacco Screening [facility] Start: 08-14-2025 Adult BMI Screening Adult BMI Screening [facility] Start: 07-04-2025 End: 07-04-2025 Patient encounter procedure 07/04/2025 10:00 AM EST Office Visit [facility] [address] [place] [address] Zac Lombardi MD [address], [facility] [address] [place] [address] [facility] Start: 07-03-2025 Tobacco Counseling Tobacco Counseling [facility] Start: 06-26-2025 Adult BMI Screening Adult BMI Screening [facility] Start: 06-26-2025 Tobacco Screening Tobacco Screening [facility] Start: 06-25-2025 End: 06-25-2025 Patient encounter procedure 06/25/2025 9:00 AM EST Appointment [facility] [address] [place] [address] Zac Lombardi MD [address], [address] [address] [facility] Start: 05-30-2025 Adult BMI Screening Adult BMI Screening [facility] Start: 05-30-2025 Tobacco Screening Tobacco Screening [facility] Start: 05-25-2025 Adult BMI Screening Adult BMI Screening [facility] Start: 05-25-2025 Tobacco Screening Tobacco Screening [facility] Start: 05-17-2025 Adult BMI Screening Adult BMI Screening [facility] Start: 05-10-2025 End: 05-10-2025 Patient encounter procedure 05/10/2025 3:00 PM EDT Off ice Visit [facility] [address] [place] [address] Stanley Gillette MD [address] [place] [address] [address] [place] [address] [facility] Start: 05-09-2025 Tobacco Screening Tobacco Screening [facility] Start: 05-09-2025 End: 05-09-2025 Patient encounter procedure [facility] Start: 05-09-2025 End: 05-09-2025 Telemedicine consultation with patient 05/09/2025 10:00 AM EDT [facility] [address] [email or web address]] [address] [place] [phone] Yung Wolfe PA [address] [place], [facility] [address] [place], [place] [phone] [facility] Hepatobiliary, Pancreatic & Endocrine Surgery Start: 04-25-2025 Adult BMI Screening Adult BMI Screening [facility] Start: 04-25-2025 Tobacco Screening Tobacco Screening [facility] Start: 04-18-2025 End: 04-18-2025 Patient encounter procedure 04/18/2025 8:00 AM EDT Appointment [facility] Imaging [address] [place] [address] Stanley Gillette MD [address] [facility] [address] [place] [address] [id number] [facility] Imaging Start: 04-17-2025 End: 03-21-2026 CT Abdomen and Pelvis WO contrast CT abdomen and pelvis without contrast Imaging Routine Renal cell carcinoma (CMS-HCC) Expected: 04/17/2025, Expires: 03/21/2026 [facility] Comment on above: Expected: 04/17/2025, Expires: Start: 04-17-2025 End: 03-21-2026 CT Chest WO contrast CT chest without contrast Imaging Routine Renal cell carcinoma (CMS-HCC) Expected: 04/17/2025, Expires: 03/21/2026 [facility] Work Phone: Comment on above: Expected: 04/17/2025, Expires: Start: 04-16-2025 Adult BMI Screening Adult BMI Screening [facility] Start: 04-16-2025 Tobacco Screening Tobacco Screening [facility] Start: 04-10-2025 Adult BMI Screening Adult BMI Screening [facility] Start: 04-10-2025 Tobacco Screening Tobacco Screening [facility] Start: 04-02-2025 End: 04-02-2025 Patient encounter procedure 04/02/2025 2:20 PM EDT Off ice Visit [facility] [address] [place] [address] Shazia Arnold MD [address] [place] [address] Arrived [facility] Comment on above: Arrived Start: 04-02-2025 Adult BMI Screening Adult BMI Screening [facility] Start: 04-02-2025 Tobacco Screening Tobacco Screening [facility] Start: 03-28-2025 Adult BMI Screening Adult BMI Screening [facility] Start: 03-28-2025 Tobacco Screening Tobacco Screening [facility] Start: 03-25-2025 Influenza vaccination Influenza Vaccine [facility] Start: 03-21-2025 End: 03-21-2026 US.doppler Extremity arteries - bilateral for physiologic artery study Vas art doppler lwr bilat mult lev/PVR Vascular Ultrasound Routine Critical limb ischemia of both lower extremities (CMS-HCC) Claudication Expected: 03/21/2025, Expires: 03/21/2026 [facility] Work Phone: Comment on above: Expected: 03/21/2025, Expires: Start: 03-21-2025 End: 03-21-2025 Patient encounter procedure 03/21/2025 11:30 AM EDT Office Visit [facility] [address] [place] [address] Zac Lombardi MD [address], [address] [place] [address] [facility] Start: 03-21-2025 End: 03-21-2025 Patient encounter procedure 03/21/2025 9:15 AM EDT Off ice Visit [facility] - Medical Oncology [address] [place] [address] Stanley Gillette MD [facility] [address] [place] [address] [facility] - Medical Oncology Start: 02-28-2025 Adult BMI Screening Adult BMI Screening [facility] Start: 02-28-2025 Tobacco Screening Tobacco Screening [facility] Start: 02-25-2025 Tobacco Screening Tobacco Screening [facility] Start: 02-22-2025 End: 02-22-2025 Patient encounter procedure 02/22/2025 1:50 PM EDT Off ice Visit [facility] [address] [place] [address] Zac Lombardi MD [address], [address] [place] [address] [facility] Start: 02-19-2025 End: 02-19-2025 Patient encounter procedure 02/19/2025 1:45 PM EDT Off ice Visit [facility] Wound Care Outpatient [address] [place] [address] Zac Lombardi MD [address], [address] [place] [address] [facility] Outpatient Start: 02-16-2025 Adult BMI Screening Adult BMI Screening [facility] Start: 02-13-2025 Adult BMI Screening Adult BMI Screening [facility] Start: 02-13-2025 Tobacco Screening Tobacco Screening [facility] Start: 02-09-2025 Adult BMI Screening Adult BMI Screening [facility] Start: 02-09-2025 Tobacco Screening Tobacco Screening [facility] Start: 02-07-2025 End: 02-07-2025 Patient encounter procedure 02/07/2025 10:00 AM EDT Office Visit [facility] [address] [place] [address] Zac Lombardi MD [address], [address] [place] [address] [facility] Start: 01-22-2025 End: 01-22-2025 Patient encounter procedure 01/22/2025 1:30 PM EDT Appointment [facility]ascular [address] [place] [address] Zac Lombardi MD [address], [address] [place] [address] [facility] Start: 01-11-2025 End: 01-11-2026 US.doppler Extremity arteries - bilateral for physiologic artery study Vas art doppler lwr bilat mult lev/PVR Vascular Ultrasound Routine Claudication Expected: 01/11/2025, Expires: 01/11/2026 [facility] Work Phone: Comment on above: Expected: 01/11/2025, Expires: Start: 01-04-2025 Adult BMI Screening Adult BMI Screening [facility] Start: 01-04-2025 Tobacco Screening Tobacco Screening [facility] Start: 01-01-2025 Adult BMI Screening Adult BMI Screening [facility] Start: 01-01-2025 Tobacco Screening Tobacco Screening [facility] Start: 12-29-2024 Adult BMI Screening Adult BMI Screening [facility] Start: 12-26-2024 End: 12-26-2024 Admission to same day surgery center 12/26/2024 12:00 PM EDT - 12/26/2024 5:45 PM EDT Surgery [facility] - Surgery [address] [place] [address]. [place] [address] Zac Lombardi MD [address], [address] [place] [address] ENDARTERECTOMY FEMORAL [facility] Surgery Comment on above: ENDARTERECTOMY FEMORAL Start: 12-26-2024 End: 12-26-2024 ANGIOPLASTY ILIAC ANGIOPLASTY ILIAC PAD (peripheral artery disease) Chronic kidney disease, unspecified CKD stage 12/26/2024 12:00 PM EDT [facility] Start: 12-26-2024 End: 12-26-2024 ENDARTERECTOMY FEMORAL ENDARTERECTOMY FEMORAL PAD (peripheral artery disease) Chronic kidney disease, unspecified CKD stage 12/26/2024 12:00 PM EDT [facility] Start: 12-26-2024 Subsequent hospital visit by physician 12/26/2024 12:00 PM EDT Hospital Encounter [facility] Surgery [facility] [place] [address] Zac Lombardi MD [address], [address] [place] [address] [facility] Surgery Start: 12-19-2024 End: 12-19-2024 Patient encounter procedure 12/19/2024 1:30 PM EDT Off ice Visit [facility] [address] [place] [address] Shazia Arnold MD [address] [place] [address] Arrived [facility] Comment on above: Arrived Start: 12-14-2024 End: 12-14-2024 Patient encounter procedure 12/14/2024 1:00 PM EDT Appointment [facility] Cardi[facility] [address] [place] [address] [facility] Start: 11-20-2024 End: 01-13-2025 Echo complete W/O contrast Echo complete W/O contrast Echocardiography Routine Essential hypertension Hypertrophic cardiomyopathy (CMS-HCC) Abnormal ECG PAD (peripheral artery disease) Abnormal echocardiogram Coronary artery disease involving [place] coronary artery of [place] heart without angina pectoris Expected: 11/20/2024 (Approximate), Expires: 01/13/2025 [facility] Work Phone: Comment on above: Expected: 11/20/2024 (Approximate), Expi res: 01/13/2025 Start: 11-16-2024 End: 11-16-2024 Patient encounter procedure 11/16/2024 10:30 AM EDT Office Visit [facility] Medical Oncology [address] [place] [address] Stanley Gillette MD [address] [facility] [address] [place] [address] [facility] Start: 11-15-2024 Adult BMI Screening Adult BMI Screening [facility] Start: 11-15-2024 Tobacco Screening Tobacco Screening [facility] Start: 11-15-2024 End: 11-15-2024 Patient encounter procedure 11/15/2024 9:40 AM EDT Off ice Visit [facility] [address] [place] [address] Zac Lombardi MD [address], [facility] [address] [place] [address] [facility] Start: 11-13-2024 End: 11-13-2024 Patient encounter procedure 11/13/2024 11:30 AM EDT Office Visit [facility] [address] [place] [address] Mckinley Winkler MD [address] [place], [place] [phone] [facility] Start: 11-01-2024 End: 11-01-2024 Patient encounter procedure 11/01/2024 9:15 AM EDT Appointment [facility] - MRI Imaging [address] [place] [address] [facility] Start: 10-30-2024 End: 10-30-2024 Patient encounter procedure 10/30/2024 9:35 AM EDT Off ice Visit [facility] [address] [place] [address] Shazia Arnold MD [address] [place] [address] Arrived [facility] Comment on above: Arrived Start: 10-29-2024 End: 10-29-2024 Patient encounter procedure 10/29/2024 9:35 AM EDT Off ice Visit [facility] [address] [place] [address] Shazia Arnodl MD [address] [place] [address] [facility] Start: 10-26-2024 End: 10-26-2024 Patient encounter procedure 10/26/2024 11:30 AM EDT Office Visit [facility]ocrine [facility] [address] [place] [phone] Yung Wolfe PA [address] [employer], [facility] [address] [place] [address] [facility] Start: 10-25-2024 End: 10-25-2024 Patient encounter procedure 10/25/2024 10:00 AM EDT Office Visit [facility] [address] [place] [address] Yung Wolfe PA [address] [employer], [address] [place] [address] [facility]ocrine [facility] Start: 10-11-2024 End: 10-11-2024 ambulatory [facility] Start: 10-11-2024 End: 10-11-2024 Patient encounter procedure [facility] Start: 10-09-2024 End: 10-09-2024 Patient encounter procedure 10/09/2024 10:45 AM EDT Appointment [facility] [address] [place] [address] [facility] Start: 10-03-2024 Tobacco Screening Tobacco Screening [facility] Start: 2024 End: 2024 ambulatory [facility] Start: 2024 End: 2024 Patient encounter procedure 2024 1:00 PM EDT Appointment [facility] [address] [place] [address] [facility] Start: 09-29-2024 Adult BMI Screening Adult BMI Screening [facility] Start: 09-29-2024 Tobacco Screening Tobacco Screening [facility] Start: 08-23-2024 End: 08-23-2024 Patient encounter procedure 08/23/2024 11:10 AM EST Office Visit [facility] [address] [place] [address] Zac Lombardi MD [address] [place] [address] [facility] Start: 08-22-2024 End: 08-22-2025 US.doppler Extremity arteries - bilateral for physiologic artery study Vas art doppler lwr bilat mult lev/PVR Vascular Ultrasound Routine End stage renal disease ([facility]) PAD (peripheral artery disease) ([facility]) Essential hypertension Expected: 08/22/2024, Expires: 08/22/2025 [facility] Work Phone: Comment on above: Expected: 08/22/2024, Expires: Start: 08-22-2024 Subsequent hospital visit by physician [facility] - Vascular Start: 08-21-2024 End: 08-21-2024 Patient encounter procedure 08/21/2024 2:30 PM EST Off ice Visit [facility] [address] [place] [address] Mary Telles MD [address] [place] [address] [facility] Start: 08-08-2024 End: 08-08-2024 ambulatory [facility] Start: 08-08-2024 End: 08-08-2024 Patient encounter procedure 08/08/2024 11:30 AM EST Office Visit [facility] [address] [place] [address] Mary Telles MD [facility] [place] [address] [facility] Start: 08-05-2024 Adult BMI Screening Adult BMI Screening [facility] Start: 08-05-2024 End: 02-02-2025 CT Abdomen W contrast IV CT abdomen with contrast Imaging Routine Renal cell carcinoma (CMS-HCC) Expected: 08/05/2024 (Approximate), Expires: 02/02/2025 [facility] Work Phone: Comment on above: Expected: 08/05/2024 (Approximate), Expi res: 02/02/2025 Start: 08-05-2024 Tobacco Screening Tobacco Screening [facility] Start: 08-03-2024 End: 08-03-2024 ambulatory [facility] - CT Imaging Start: 08-03-2024 End: 08-03-2024 Patient encounter procedure [facility] Imaging Start: 07-25-2024 End: 05-25-2025 CT Abdomen W contrast IV CT abdomen with contrast Imaging Routine 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, unspecified B-cell lymphoma type (CMS-HCC) Expected: 07/25/2024, Expires: 05/25/2025 [facility] Comment on above: Expected: 07/25/2024, Expires: Start: 07-25-2024 End: 05-25-2025 CT Chest limited W contrast IV CT chest with contrast Imaging Routine 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, unspecified B-cell lymphoma type (CMS-HCC) Expected: 07/25/2024, Expires: 05/25/2025 [facility] Work Phone: Comment on above: Expected: 07/25/2024, Expires: Start: 07-21-2024 Depression Screening Depression Screening [facility] Start: 06-27-2024 End: 06-27-2024 Patient encounter procedure 06/27/2024 2:00 PM EST Off ice Visit [facility] [address] [email or web address]] [address] [place] [address] Yung Wolfe PA [address] [employer], [facility] [address] [place], [place] [phone] [facility] Start: 05-30-2024 End: 05-30-2024 Patient encounter procedure 05/30/2024 3:00 PM EST Off ice Visit [facility] [address] [place] [address] Yung Wolfe PA [address] [employer], [facility] [address] [place] [address] [facility] Start: 05-22-2024 End: 05-22-2024 Patient encounter procedure 05/22/2024 3:00 PM EDT Off ice Visit [facility]ocrine [facility] [address] [place] [address] Amanda Randall PAIsealC [address] [place], [place] [phone] [facility] Hepatobiliary, Pancreatic & Endocrine Surgery Start: 05-09-2024 End: 05-09-2024 Admission to same day surgery center 05/09/2024 10:30 AM EDT - 05/09/2024 4:00 PM EDT Surgery [address] [phone] Jeffrey Mcfadden MD [address], [facility] [[email or web address]] [address] [place] [address] PANCREATECTOMY PARTIAL/POSSIBLE DISTAL [facility] Comment on above: PANCREATECTOMY PARTIAL/POSSIBLE DISTAL Start: 05-09-2024 End: 05-09-2024 Anesthesia consultation 05/09/2024 10:30 AM EDT Anesthesia Event [address] [phone] Sobeida Ayala MD [address] [place] [address] [facility] Surgery Start: 05-09-2024 End: 05-09-2024 PANCREATECTOMY PANCREATECTOMY PANCREATIC NEOPLASM 05/09/2024 10:30 AM EDT [facility] Start: 05-09-2024 End: 05-09-2024 SPLENECTOMY SPLENECTOMY PANCREATIC NEOPLASM 05/09/2024 10:30 AM EDT [facility] Start: 05-09-2024 Subsequent hospital visit by physician 05/09/2024 10:30 AM EDT Hospital Encounter [address] [phone] Jeffrey Mcfadden MD [address], [facility] [[email or web address]] [address] [place] [phone] [facility] - Surgery Start: 05-09-2024 End: 05-09-2024 WHIPPLE WHIPPLE PANCREATIC NEOPLASM 05/09/2024 10:30 AM EDT [facility] Start: 05-07-2024 End: 05-07-2024 Patient encounter procedure 05/07/2024 3:10 PM EDT Off ice Visit [facility] [address] [place] [address] Zac Lombardi MD [address], [address] [place] [address] [facility] Start: 04-30-2024 End: 04-30-2024 Patient encounter procedure 04/30/2024 9:05 AM EDT Off ice Visit [facility] [address] [place] [address] Shazia Arnold MD [address] [place] [address] Arrived [facility] Comment on above: Arrived Start: 04-25-2024 End: 04-25-2024 Patient encounter procedure 04/25/2024 1:30 PM EDT Procedure visit [facility] [address] [address] [facility] Start: 04-16-2024 End: 04-16-2024 Patient encounter procedure 04/16/2024 2:00 PM EDT Off ice Visit [facility] [address] [place] [address] Zac Lombardi MD [address], [address] [place] [address] [facility] Start: 04-11-2024 End: 04-11-2024 Patient encounter procedure 04/11/2024 1:15 PM EDT Off ice Visit [facility] [address] [facility] [place] [phone] Mckinley Winkler MD [address] [place] [address] [facility] Start: 04-04-2024 End: 04-04-2024 Admission to same day surgery center 04/04/2024 11:30 AM EDT - 04/04/2024 1:00 PM EDT Surgery [facility] Endoscopy [address] [place] [phone] [place] [address] [place] [address], [address] [place] [address] ESOPHAGOGASTRODUODENOSCOPY DIAGNOSTIC [37277 (CPT )] [facility] Endoscopy Comment on above: ESOPHAGOGASTRODUODENOSCOPY DIAGNOSTIC [4 3230 (CPT )] Start: 04-04-2024 End: 04-04-2024 Esophagogastroduodenoscopy transoral diagnostic ESOPHAGOGASTRODUODENOSCOPY DIAGNOSTIC Pancreatic duct dilated 04/04/2024 11:30 AM EDT [facility] Start: 04-04-2024 End: 04-04-2024 Esophagoscopy flexible transoral ultrasound exam ENDOSCOPIC ULTRASOUND UPPER Pancreatic duct dilated 04/04/2024 11:30 AM EDT [facility] Start: 04-04-2024 Subsequent hospital visit by physician 04/04/2024 11:30 AM EDT Hospital Encounter [facility] Endoscopy [address] [facility] [place] [address] [place] [address] [place] [address], [address] [place] [address] [facility] Endoscopy Start: 04-03-2024 End: 07-03-2024 Echo complete W/O contrast Echo complete W/O contrast Echocardiography Routine Essential hypertension Hypertrophic cardiomyopathy (CMS-HCC) Abnormal ECG Abnormal echocardiogram Expected: 04/03/2024 (Approximate), Expires: 07/03/2024 [employer] Work Phone: Comment on above: Expected: 04/03/2024 (Approximate), Expi res: 07/03/2024 Start: 04-02-2024 End: 04-02-2024 Patient encounter procedure 04/02/2024 2:10 PM EDT Off ice Visit [facility] [address] [place] [address] Zac Lombardi MD [address], [place] [address] [place] [address] [facility] Start: 04-02-2024 End: 04-02-2025 US.doppler Aorta and Iliac artery - bilateral Vas aorta/iliac duplex complete Vascular Ultrasound Routine Renal cell carcinoma (CMS-HCC) Infrarenal abdominal aortic aneurysm (AAA) without rupture (CMS-HCC) Expected: 04/02/2024, Expires: 04/02/2025 [employer] Work Phone: Comment on above: Expected: 04/02/2024, Expires: Start: 04-01-2024 End: 09-29-2024 CT Abdomen W contrast IV CT abdomen with contrast Imaging Routine Renal cell carcinoma Expected: 04/01/2024 (Approximate), Expires: 09/29/2024 [employer] Work Phone: Comment on above: Expected: 04/01/2024 (Approximate), Expi res: 09/29/2024 Start: 04-01-2024 End: 09-29-2024 XR Chest PA and Lateral X-ray chest 2 views Imaging Routine Renal cell carcinoma Expected: 04/01/2024 (Approximate), Expires: 09/29/2024 [facility] Comment on above: Expected: 04/01/2024 (Approximate), Expi res: 09/29/2024 Start: 03-25-2024 Influenza vaccination Influenza Vaccine [facility] [employer] Start: 02-29-2024 End: 02-29-2024 Patient encounter procedure 02/29/2024 11:30 AM EDT Office Visit [facility] [address] [place] [phone] Polly Reeder MD [address] [facility] [place] [address] [facility] Start: 02-16-2024 End: 02-15-2025 MRCP Abdomen WO and W contrast IV MRCP with MRI abdomen with and without contrast Imaging STAT Pancreatic duct dilated Pancreatic lesion Expected: 02/16/2024, Expires: 02/15/2025 [facility] Work Phone: Comment on above: Expected: 02/16/2024, Expires: Start: 02-14-2024 End: 02-14-2024 Patient encounter procedure 02/14/2024 2:30 PM EDT Off ice Visit [facility] [address] [facility] [[email or web address]] [address] [place] [address] Jeffrey Mcfadden MD [address], [facility] [[email or web address]] [address] [place] [address] [facility] Start: 02-03-2024 End: 02-03-2024 Patient encounter procedure [facility] - Radiology Start: 02-03-2024 End: 08-05-2024 MR Abdomen WO and W contrast IV MR abdomen with and without contrast Imaging Routine Renal cell carcinoma Expected: 02/03/2024 (Approximate), Expires: 08/05/2024 [facility] Work Phone: Comment on above: Expected: 02/03/2024 (Approximate), Expi res: 08/05/2024 Start: 02-03-2024 End: 08-05-2024 XR Chest PA and Lateral X-ray chest 2 views Imaging Routine Renal cell carcinoma Expected: 02/03/2024 (Approximate), Expires: 08/05/2024 [facility] Comment on above: Expected: 02/03/2024 (Approximate), Expi res: 08/05/2024 Start: 01-27-2024 End: 01-27-2024 Patient encounter procedure [facility] - CT Start: 01-23-2024 End: 01-23-2024 Patient encounter procedure 01/23/2024 8:45 AM EDT Appointment [facility] [address] [place] [phone] Mary Telles MD [address] [place] [phone] [facility] Start: 01-11-2024 End: 01-11-2024 Admission to same day surgery center 01/11/2024 3:00 PM EDT - 01/11/2024 5:00 PM EDT Surgery [facility] Surgery [address] [place] [phone] Zac Lombardi MD [address] [place] [phone] CREATION ARTERIOVENOUS FISTULA UPPER EXTREMITY-vs avg [facility] Comment on above: CREATION ARTERIOVENOUS FISTULA UPPER EXT REMITY-vs avg Start: 01-11-2024 End: 01-11-2024 CREATION ARTERIOVENOUS FISTULA UPPER EXTREMITY CREATION ARTERIOVENOUS FISTULA UPPER EXTREMITY End stage renal disease ([facility]) 01/11/2024 3:00 PM EDT [facility] Start: 01-11-2024 Subsequent hospital visit by physician 01/11/2024 3:00 PM EDT Hospital Encounter [facility] Surgery [address] [place] [phone] Zac Lombardi MD [address], [address] [place] [address] [facility] Start: 01-06-2024 End: 01-06-2024 Patient encounter procedure 01/06/2024 8:30 AM EDT Appointment [facility] [address] [facility] [place] [phone] Angie Mathias MD [address] [place] [address] [facility] Start: 01-06-2024 Subsequent hospital visit by physician 01/06/2024 8:30 AM EDT Hospital Encounter [facility] [address] [place] [place] [address] Angie Mathias MD [address] [place] [address] [facility] Start: 01-03-2024 End: 01-03-2024 Admission to establishment 01/03/2024 9:30 AM EDT Support Visit [facility] On [address] [phone] [facility] Start: 01-02-2024 End: 01-02-2024 Patient encounter procedure 01/02/2024 9:45 AM EDT Off ice Visit [facility] [address] [facility] [[email or web address]] [address] [place] [phone] Mckinley Winkler MD [address] [place] [address] [facility] Start: 12-30-2023 End: 12-30-2023 Patient encounter procedure 12/30/2023 2:10 PM EDT Off ice Visit [facility] [place] [address] Zac Lombardi MD [address], [facility] [address] [place] [phone] [facility] Start: 12-28-2023 End: 12-27-2024 Vas vessel mapping hemodialysis bi Vas vessel mapping hemodialysis bi Vascular Ultrasound Routine End stage renal disease ([facility]) Expected: 12/28/2023, Expires: 12/27/2024 [facility] Work Phone: Comment on above: Expected: 12/28/2023, Expires: Start: 11-12-2023 End: 11-10-2024 Holter monitor study Holter monitor 3-5 days Cardiac Services Routine Hypertrophic cardiomyopathy ([facility]) Abnormal ECG Chest discomfort Expected: 11/12/2023 (Approximate), Expires: 11/10/2024 [facility] Comment on above: Expected: 11/12/2023 (Approximate), Expi res: 11/10/2024 Start: 11-11-2023 End: 11-10-2024 NM Heart Perfusion W stress and W radionuclide IV Nuc stress Lexiscan Cardiac Services Routine Essential hypertension Mixed hyperlipidemia Cigarette nicotine dependence without complication Hypertrophic cardiomyopathy ([facility]) Abnormal ECG Chronic kidney disease, unspecified CKD stage Chest discomfort Atherosclerosis of [place] coronary artery of [place] heart without angina pectoris Expected: 11/11/2023 (Approximate), Expires: 11/10/2024 [facility] Work Phone: Comment on above: Expected: 11/11/2023 (Approximate), Expi res: 11/10/2024 Start: 09-28-2023 End: 09-28-2023 Patient encounter procedure 09/28/2023 10:30 AM EST Office Visit [facility] [address] [place] [phone] Mary Telles MD [address] [place] [phone] Lexus Lainez PA [address] [place] [phone] [facility] Start: 09-09-2023 End: 09-09-2023 Patient encounter procedure 09/09/2023 4:30 PM EST [facility] [address] [place] [phone] Mary Telles MD [address] [place] [address] [facility] Start: 03-25-2023 Influenza vaccination Influenza Vaccine [facility] Start: 2022 Fall Risk Screening Fall Risk Screening [facility] Start: 1976 Administration of varicella zoster vaccine Zoster (Shingles) Vaccine (1 of 2) [facility] Start: 1976 DTaP,Tdap and Td Vaccines (1 - Tdap) DTaP,Tdap and Td Vaccines (1 - Tdap) [facility] Start: 10-02-1975 Adult BMI Follow Up Plan Adult BMI Follow Up Plan [facility] Start: 10-02-1975 Diabetic foot examination Diabetic Foot Exam [facility] Start: 1957 Glaucoma screening Diabetic Ophthalmology Exam [facility] Start: 1957 Medicare Annual Wellness Visit Medicare Annual Wellness Visit [facility] Start: 1957 Tobacco Counseling Tobacco Counseling [facility] Start: 1957 Urine screening for protein Urine Microalbumin [facility] Bedside Glucose *Cam ce/Obtain serum glucose if >500(>600 MRH) per glucometer. [facility] Work Phone: Bedside Glucose *Cam ce/Obtain serum glucose if >500(>600 MRH) per glucometer. [facility] Work Phone: End: 05-30-2024 CBC W Auto Differential panel - Blood [facility] End: 05-25-2025 CBC W Auto Differential panel - Blood CBC with auto diff Lab Routine 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, unspecified B-cell lymphoma type ([facility]) monthly for 12 Occurrences starting 05/25/2024 until 05/25/2025 [employer] Comment on above: monthly for 12 Occurrences starting 07/2023 until 05/25/2025 End: 02-28-2025 Colonoscopy Colonoscopy GI Routine Encounter for colorectal cancer screening 1 Occurrences starting 02/29/2024 until 02/28/2025 [employer] Phone: Comment on above: 1 Occurrences starting 02/29/2024 until 02/28/2025 End: 05-30-2024 Comprehensive metabolic 2000 panel - Serum or Plasma [employer] End: 05-25-2025 Comprehensive metabolic 2000 panel - Serum or Plasma Comprehensive metabolic panel Lab Routine 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, unspecified B-cell lymphoma type ([facility]) monthly for 12 Occurrences starting 05/25/2024 until 05/25/2025 [employer] Comment on above: monthly for 12 Occurrences starting 07/2023 until 05/25/2025 End: 02-12-2025 Creatinine includes GFR, serum Creatinine includes GFR, serum Lab Routine Renal cell carcinoma ([facility]) 1 Occurrences starting 02/13/2024 until 02/12/2025 [employer]: Comment on above: 1 Occurrences starting 02/13/2024 until 02/12/2025 Dermatopathology exam Dermatopat hology exam Pathology and Cytology Timed Neoplasm of unspecified behavior of bone, soft tissue, and skin Release Upon Ordering for 1 Occurrences starting 04/30/2024 [employer] Work Phone: Comment on above: Release Upon Ordering for 1 Occurrences starting 04/30/2024 Dermatopathology exam Dermatopat hology exam Pathology and Cytology Timed Neoplasm of unspecified behavior of bone, soft tissue, and skin Release Upon Ordering for 1 Occurrences starting 10/30/2024 [employer] Phone: Comment on above: Release Upon Ordering for 1 Occurrences starting 10/30/2024 Dermatopathology exam Dermatopat hology exam Pathology and Cytology Timed Neoplasm of unspecified behavior of bone, soft tissue, and skin Release Upon Ordering for 1 Occurrences starting 04/02/2025 [employer] Phone: Comment on above: Release Upon Ordering for 1 Occurrences starting 04/02/2025 End: 02-28-2025 Endoscopic Ultrasonography, GI Upper Endoscopic Ultrasonography, GI Upper GI Routine Pancreatic duct dilated 1 Occurrences starting 02/29/2024 until 02/28/2025 [employer] Comment on above: 1 Occurrences starting 02/29/2024 until 02/28/2025 End: 05-22-2025 Flow cytometry blood only Flow cytometry blood only La b Routine B-cell lymphoma of intra-abdominal lymph nodes, unspecified B-cell lymphoma type ([facility]) 1 Occurrences starting 05/22/2024 until 05/22/2025 [employer] Work Phone: Comment on above: 1 Occurrences starting 05/22/2024 until 05/22/2025 End: 05-30-2024 Magnesium [Mass/volume] in Serum or Plasma [employer] Oxygen Therapy - Janna ntain SpO2: 90%; *GEOPHYSICAL DATA TECHNICIAN Guidelines for O2: Yes; Document: \[email or web address]\epic\EPI C_Reference\Orders\Respirator y Care Guidelines\CPG Oxygen 2022.pdf [employer] Work Phone: End: 02-28-2025 Pancreatic Elastase, F Pancreatic Elastase, F Lab Routine Chronic pancreatitis, unspecified pancreatitis type ([facility]) 1 Occurrences starting 02/29/2024 until 02/28/2025 [employer] Work Phone: Comment on above: 1 Occurrences starting 02/29/2024 until 02/28/2025 End: 05-30-2024 Phosphate [Mass/volume] in Serum or Plasma [employer] Payers Date Payer Category Payer Managed Care Other (unspecified) [id number] 2022 Medicare [id number] 1.315 2022 Private Health Insurance [id number] .[id number] 2022 Unknown [id number]. 1.13.693.2.7.3.68895 1.315 2022 Unknown [id number] 1959 Medicare [id number] 1959 Unknown [id number] 1957 Unknown [id number] 2.16.840.1.995317.3.579.2.593 1957 Unknown [id number] 2.16.840.1.491436.3.579.2.593 1957 Unknown [id number] 2.16.840.1.004614.3.579.2.593 1957 Unknown [id number] 2.16.840.1.937176.3.579.2.727 1957 Unknown [id number] 2.16.840.1.608026.3.579.2.727 1957 Unknown [id number] 2.16.840.1.318483.3.579.2.1286 1957 Unknown [id number] 2.16.840.1.773901.3.579.2.1286 1957 Unknown [id number] 2.16.840.1.357364.3.579.2.1286 1957 Unknown [id number] 2.16.840.1.122815.3.579.2.1286 1957 Unknown [id number] 2.16.840.1.135542.3.579.2.1259 1957 Unknown [id number] 2.16.840.1.854509.3.579.2.1259 1957 Unknown [id number] 2.16.840.1.856624.3.579.2.1259 1957 Unknown [id number] 2.16.840.1.708285.3.579.2.1286 1957 Unknown [id number] 2.16.840.1.238728.3.579.2.1285 1957 Unknown [id number] 2.16.840.1.201698.3.579.2.1285 1957 Unknown [id number] 2.16.840.1.839486.3.579.2.1285 1957 Unknown [id number] 2.16840.1.739373.3.579.2.1285 1957 Unknown [id number] 2.16.840.1.233244.3.579.2.1285 1957 Unknown [id number] 2.16840.1.164400.3.579.2.1285 1957 Unknown [id number] 2.840.1.931386.3.579.2.1285 1957 Unknown [id number] 2.840.1.465912.3.579.2.1285 1957 Unknown [id number] 2.840.1.342939.3.579.2.1285 1957 Unknown [id number] 2.840.1.485914.3.579.2.1285 1957 Unknown [id number] 2.840.1.660756.3.579.2.1285 1957 Unknown [id number] 2.16840.1.761232.3.579.2.1285 1957 Unknown [id number] 2.16840.1.870675.3.579.2.1285 1957 Unknown [id number] 2.16.840.1.115558.3.579.2.1285 1957 Unknown [id number] 2.16840.1.590304.3.579.2.1285 1957 Unknown [id number] 2.16.840.1.682749.3.579.2.1285 1957 Unknown [id number] 2.16.840.1.031570.3.579.2.1285 1957 Unknown [id number] 2.16.840.1.386536.3.579.2.1285 1957 Unknown [id number] 2.16840.1.374927.3.579.2.1285 1957 Unknown [id number] 2.16.840.1.658966.3.579.2.1285 1957 Unknown [id number] 2.840.1.498611.3.579.2.1285 1957 Unknown [id number] 2.840.1.293185.3.579.2.1285 1957 Unknown [id number] 2.840.1.497759.3.579.2.1285 1957 Unknown [id number] 2.840.1.038500.3.579.2.1285 1957 Unknown [id number] 2.840.1.056862.3.579.2.1285 1957 Unknown [id number] 2.840.1.825121.3.579.2.1285 1957 Unknown [id number] 2.840.1.109782.3.579.2.1285 1957 Unknown [id number] 2.840.1.475969.3.579.2.1285 1957 Unknown [id number] 2.16.840.1.492731.3.579.2.1285 1957 Unknown [id number] 2.16840.1.983694.3.579.2.1285 1957 Unknown [id number] 2.16.840.1.833860.3.579.2.1286 1957 Unknown [id number] 2.16.840.1.639893.3.579.2.1286 1957 Unknown [id number] 2.16.840.1.296964.3.579.2.1286 1957 Unknown [id number] 2.16.840.1.620694.3.579.2.1286 1957 Unknown [id number] 2.16.840.1.091528.3.579.2.1286 1957 Unknown [id number] 2.16.840.1.449468.3.579.2.1286 1957 Unknown [id number] 2.16.840.1.561452.3.579.2.128 1957 Unknown [id number] 2.16.840.1.200215.3.579.2.1286 1957 Unknown [id number] 2.16.840.1.703791.3.579.2.1286 Social History Date Type Detail Facility Start: 12-26-2023 Tobacco smoking status Heavy t obacco smoker (finding) [facility] Tobacco smoking status Never [facility] Start: 10-24-2023 End: 04-02-2025 Sex Assigned At Male [facility] Start: 07-25-1974 End: 12-18-2024 Tobacco smoking status NHIS Smokes tobacco daily [facility] Start: 07-25-1974 History of tobacco use Cigarette Smo ker [facility] Start: 05-26-2023 End: 12-18-2024 Tobacco use and exposure Smokeless tobacco non-user [facility] Start: 10-24-2023 End: 04-02-2025 History of Social function [facility] Start: 1955 Sex assigned at Not on file P [facility] History of tobacco use Passive smoker [facility] Start: 06-26-2024 End: 11-16-2024 Alcoholic beverage intake Current non-drinker of alcohol (finding) [facility] Start: 04-25-2024 Tobacco Comment Currently smok ing 1/2ppd. [facility] Start: 02-27-2015 Sex Male (finding) [facility] Start: 02-16-2024 Gender identity Identifies as male gender (finding) [facility] Has the [employer], [employer], [employer], or water company threatened to shut off services in your home in past 12Mo No [facility] Start: 07-07-2023 Tobacco Comment Currently smok ing 1/2ppd [facility] Start: 01-11-2024 Tobacco Comment Currently smok ing 1/2ppd. Smoked today 01/11/24 [facility] Start: 03-28-2024 End: 04-04-2024 Tobacco smoking status NHIS Ex-smoker [facility] Start: 07-25-1982 History of tobacco use Current smoke r [facility] Start: 12-18-2024 End: 03-21-2025 Alcoholic beverage intake Ex-drinker (finding) [facility] Start: 12-18-2024 Tobacco Comment Quit on and of f throughout life [facility] Start: 12-18-2024 Alcohol Comment quit 2022 heavy drin ker [facility] How often to you hav e a drink containing alcohol? Never [facility] Medical Equipment Procedure Code Equipment Code Equipment Origin al Text Equipment Identifier Dates [id number], [id number] FDA Start: 07-27-2023 1 Unit by miscellaneous route 4 (four) times a day before meals and nightly. [id number] Start: 07-27-2023 End: 01-02-2024 Patch Vsc 8x.8cm Xenosure Bvn Pricrd Tiss Strl Rpl [id number] - [id number], [id number] FDA Start: 12-26-2024 Comment on above: Description: LEFT fe moral artery Patch Vsc 8x.8cm Xenosure Bvn Pricrd Tiss Strl Rpl [id number] - [id number], [id number] FDA Start: 12-26-2024 Stent Vsc Innova 8mm 40mm 130cm 6fr Dlv Sys Rdpq Slf Xpd Rpl Special [id number] - [id number])[id number], [id number] FDA Start: 12-26-2024 Comment on above: Description: left in ternal iliac artery Stent 7fr 135cm Vbx Ba Ppm Expandable Cath Hep Vbhn Eprsth 8 Rpl [id number] - [id number] - [id number])[id number], [id number] FDA Start: 12-26-2024 Comment on above: Description: RIGHT I LIAC ARTERY Stent Logan Expres s Ld 8mm 37mm 75cm 40mm 6fr Otw Bln Prmnt - [id number])[id number], [id number] FDA Start: 12-26-2024 Comment on above: Description: left in ternal iliac artery Stent 7fr 135cm Vbx Ba Ppm Expandable Cath Hep Vbhn Eprsth 8 Rpl [id number] - [id number] - [id number])[id number])[id number], [id number], [id number] FDA Start: 12-26-2024 Comment on above: Description: left in ternal iliac artery Stent Eprsth L5c m Dia9mm Cath L120cm [id number] 8fr Gw 0.035 - [id number] - [id number] Start: 12-26-2024 Comment on above: Description: left in ternal iliac artery Goals Date Patient Goal Desired Activity /State Personal health goal Comment on above: Formatting of this n ote might be different from the original. Evaluation of progress towards goal: Progress to a safe discharge Personal health goal Comment on above: Formatting of this n ote might be different from the original. Evaluation of progress towards goal: Patient plans for a safe discharge. Personal health goal Comment on above: Formatting of this n ote might be different from the original. Evaluation of progress towards goal: self care, family support Functional Status Date Assessment Result Facility 12-26-2023 Functional Status N/A [facility] [place] [facility] Mental Status Date Assessment Result Facility [facility] Clinical Notes 08-05-2023 to 04-02-2025 Shazia Arnold MD - 04/02/2025 2:20 PM Hailee Lombardi MD - 03/21/2025 11:30 AM Sandra Iniguez RN - 03/21/2025 10:11 AM Radhika Gillette MD - 03/21/2025 9:15 AM EDTPatient Instructions Note Date & Type Note Facility 04-02-2025 History of Present illness Narrative Images from the original note were not included. Lesions: Location: Scalp Duration: Few months Quality: denies pain, denies itch, denies bleeding Associated symptoms: rough, scaly Treatments: none Established patient All pertinent medical history, medications, and allergies were reviewed. General Exam: alert, oriented to person, place, and time, normal affect, well appearing Unaccompanied A focused exam completed based on patient reported problems, see below: Skin Exam 1. NEOPLASM OF UNSPECIFIED BEHAVIOR OF BONE, SOFT TISSUE, AND SKIN (2) Mid Parietal Scalp posterior [place] scaly plaque Lesion biopsy Type of biopsy: tangential Informed [...] Dressing type: bandage Additional details: Photo taken yes Amount of lidocaine used: 0.5 cc Specimen A - Dermatopathology exam Differential Diagnosis: AK vs SCC Check Margins: No Size of lesion: 0.9 x 0.8 cm Mid Parietal Scalp anterior [place] scaly plaque Lesion biopsy Type of biopsy: tangential Informed [...] Dressing type: bandage Additional details: Photo taken yes Amount of lidocaine used: 0.5 cc Specimen B - Dermatopathology exam Differential Diagnosis: Ak vs SCC Check Margins: No Size of lesion: 0.9 x 0.8 cm 2. ACTINIC KERATOSIS Right Anterior Neck Erythematous scaly papules Patient was counseled regarding [...] limited to risks of scarring, darker or 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 Method: Liquid nitrogen was used to treat the lesion(s) with two 5-10 second freeze-thaw cycles. Number of lesions treated: 1 Post-procedure instructions: Instructions were given orally and in writing. The office will be contacted if the lesion fails to resolve despite treatment, or if a side effect develops such as abnormal crusting, scabbing, redness or tenderness Cryotherapy, skin lesion - Right Anterior Neck Related Medications fluorouracil (Efudex) 5 % cream Apply to directed areas on the forehead, cheeks, and temples temples twice a day x 14 days. Dispense 30 day supply but only use for 14 days. 3. SEBORRHEIC KERATOSIS, INFLAMED Left Malar Cheek [place] and brown stuck on verrucous scaly papule with surrounding erythema The patient was informed that symptomatic seborrheic keratoses are benign growths that become inflamed, itchy, tender, traumatized, caught on clothing, or bleed. Symptomatic lesions can be treated with cryotherapy or curretage. Thicker lesions treated with cryotherapy may require more than one treatment. The patient was instructed to notify the office if abnormal redness or tenderness develops at the treatment site. Cryotherapy today, see procedure note. Diagnosis: Inflamed seborrheic keratosis Indication: Inflamed Consent: Verbal consent was obtained and risks were discussed, including, but not limited to risks of scarring, darker or 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 Method: Liquid nitrogen was used to treat the lesion(s) with two 5-10 second freeze-thaw cycles Number of lesions treated: 1 Post-procedure instructions: Instructions were given orally and in writing. The office will be contacted if the lesion fails to resolve despite treatment, or if a side effect develops such as abnormal crusting, scabbing, redness or tenderness Cryotherapy, skin lesion - Left Malar Cheek Next Visit: pending biopsy results documented in this encounter [facility] 03-21-2025 History of Present illness Narrative Patient is doing well status post femoral endarterectomy on the left side since December 26. Patient's wounds have healed completely. Patient is walking much better. I will see him back in 3 months with a follow-up lower extremity arterial Doppler. Continue with the aspirin, Plavix and statins. documented in this encounter [facility] 03-21-2025 History of Present illness Narrative Patient was in for follow up with Dr. Gillette today to review labs for CLL, he was not able to stay d/t having another appointment in [place]. Spoke with Dr. Gillette and she states blood work all looks good. She would like patient to have CT scan ch/abd/pel in about a month for Renal cell carcinoma surveillance and follow up a couple of weeks after to review. Call to patient and to apologize they were not able to be seen before needing to leave for other appointment. Updated on Dr. Gillette's message about labs looking good and that she would like CT scans done in about a month with follow up a week or two after to review. Patient is agreeable to imaging. Follow up scheduled for 05/10/[address] Gillette and they are aware they will need to call central scheduling to set up testing prior to follow up. Orders placed for CT ch/abd/pel without contrast. documented in this encounter [facility] 03-21-2025 History of Present illness Narrative The patient left before I can see him today. His CBC is unremarkable. Continue routine surveillance per NCCN guideline for his kidney cancer. Our office will schedule CT imaging of chest abdomen pelvis without contrast for surveillance Follow-up with me in 2 months documented in this encounter [facility] 02-07-2025 History of Present illness Narrative Patient is status post left femoral endarterectomy. He reports that the wound was leaking serous fluid however it now slowed down significantly. Continue with the dressing changes. His Dopplers appeared to have slightly improved. Patient has not been walking to see if his claudication is better. I will see him back in 6 weeks for follow-up. Continue with the aspirin and Plavix. documented in this encounter [facility] 01-23-2025 History of Present illness Narrative Vascular surgery progress note He is status post left femoral endarterectomy with patch angioplasty. Wound healed well with the exception of the lower part is leaking some cirrhosis seromatous fluids. No cellulitis no evidence of infection. She has a clear seromatous fluid. Plan is to do shower twice a day Betadine painting and compressive dressing. This should slow down gradually up if not he may need some intervention. Follow up with Dr. Lombardi in 1-2 weeks..\nj Demond Colindres MD documented in this encounter [facility] 01-11-2025 History of Present illness Narrative Patient is status post femoral endarterectomy. Wound is healing well. Patient is able to walk further. I will see him back in 4 weeks with a lower extremity arterial Doppler. Continue with the aspirin Plavix. documented in this encounter [facility] 12-19-2024 History of Present illness Narrative Images from the original note were not included. Follow up Diagnosis: SCC in situ Location: Left lateral neck Last visit: 10/30/2024 Procedure performed: Shave biopsy Current treatment: Here today for removal Patient also concerned about new bumps on the chest/back that are sore if picked at. All pertinent medical history, medications, and allergies were reviewed. General Exam: alert, oriented to person, place, and time, normal affect, well appearing A focused exam completed based on patient reported problems, see below: Skin Exam 1. 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 Site was marked. Photo was taken and shown to patient, patient verified this is the correct site. Lesion destroyed using liquid nitrogen: Yes Region frozen until ice ball extended beyond lesion: Yes Cryotherapy cycles: 2 Lesion length (cm): 0.5 Lesion width (cm): 0.3 Margin per side (cm): 0 Final wound size (cm): 0.5 Outcome: patient tolerated procedure well with no complications Post-procedure details: wound care instructions given Post-procedure details comment: Post-cryotherapy instructions were given verbally and in writing. The office will be contacted if the lesion fails to resolve despite treatment, or if a side effect develops such as abnormal crusting, scabbing, reddness, discharge, or tenderness. Additional details: Previous accession number: [id number] Discussed treatment options including excision vs aggressive cryotherapy. Discussed risks/benefits of each option, patient elected for cryotherapy today. Patient instructed to notify office of any signs of recurrence prior to next scheduled visit. 2. NIGEL'S DISEASE Trunk 2-4mm pink papules with acuminate scale. Discussed this is a benign condition that can be hard to treat. Offered biopsy to verify diagnosis, patient declined. Offered triamcinolone, patient declined. Patient to contact office if worsening or treatment is desired. Next Visit: as scheduled documented in this encounter [facility] 12-18-2024 History and physical note PRE-ADMISSION TESTING HISTORY AND PHYSICAL EXAM DATE: 12/18/24 PCP: DYLAN MONTILLA MD CHIEF COMPLAINT: PAD (peripheral artery disease) HISTORY OF PRESENT ILLNESS: Zev Crystal, a 69 y.o. White or male, presents to [facility] for a pre-surgical H&P. Patient complains of severe pain when he walks about 1 block distance. Maybe even less than that he will start having the pain specially over the left leg At rest the patient does not have any pain at all. Patient denies any discolorations or wounds over his lower extremities. Vascular Invasive Lower Extremity Angiogram with possible intervention 10/25/2024 Findings: Abdominal aorta is irregular and calcified but it is widely patent. Bilateral renal arteries are patent. Bilateral common iliac arteries are calcified and irregular but they are patent. The right external iliac artery appears to be calcified and irregular but it is patent. The left external iliac artery has about 80% stenosis at the proximal portion of the artery. Bilateral internal iliac arteries appeared to be occluded. On the left side the left common femoral artery is patent. The left deep femoral artery has about 60-70% stenosis at the origin. The rest of the deep femoral artery appears to be widely patent. The left superficial femoral artery has about 60-70% long stenosis from the origin down further distally about 2-3 cm distal. The rest of the superficial femoral artery is extremely irregular and calcified. Popliteal artery occludes at the proximal to mid portion it is an occlusion that extends about 5-6 cm with calcification. The popliteal artery reconstitutes at the knee level area. The [id number] popliteal artery is patent and smooth. The left anterior tibial, posterior tibial, and peroneal arteries are patent. The left TP trunk is patent. PAST MEDICAL HISTORY: Past Medical History: Diagnosis Date AAA (abdominal aortic aneurysm) monitoring Abnormal echocardiogram Abnormal EKG Anemia received iron infusions Anxiety xanax prn Arthritis hands CKD (chronic kidney disease) stage 4, GFR 15-29 ml/min ([facility]) 06/2023 on dialysis renal [facility] M,W,F CLL (chronic lymphocytic leukemia) ([facility]) 05/25/2024 no treatment Coronary artery disease patient states 1 artery occuluded, no stents DDD (degenerative disc disease), lumbar Dental disease missing tooth front Diabetes mellitus type 2, controlled ([facility]) Dialysis patient M,W,F [facility] Essential hypertension 02/23/2018 Exocrine pancreatic insufficiency GERD (gastroesophageal reflux disease) no medications HL (hearing loss) hearing aid lt ear, deaf right ear Hypertrophic cardiomyopathy ([facility]) 01/02/2024 Hypothyroidism Idiopathic acute pancreatitis without infection or necrosis 02/23/2018 IPMN (intraductal papillary mucinous neoplasm) 04/11/2024 Mixed hyperlipidemia 02/23/2018 Nicotine dependence 02/23/2018 PAD (peripheral artery disease) Pancreatic neoplasm Whipple done Pancreatitis Peptic ulceration when he was younger Renal cell carcinoma ([facility]) right, left kidney atrophied Skin cancer BCC/SCC Varicella 03/2024 shingles Visual impairment glasses prn PAST SURGICAL HISTORY: Past Surgical History: Procedure Laterality Date BRACHIAL CEPHALIC ARTERIOVENOUS FISTULA Left 01/11/2024 Performed by Zac Lombardi MD at [facility] CARDIAC CATHETERIZATION 2004 2007 [facility] COLONOSCOPY 2013 CVC REMOVAL N/A 06/25/2024 Performed by Zac Lombardi MD at [facility] CARDIAC CATH LABS ELBOW SURGERY Left 03/14/2016 ENDOSCOPIC ULTRASOUND UPPER N/A 04/04/2024 Performed by Polly Reeder MD at [facility] ESOPHAGOGASTRODUODENOSCOPY DIAGNOSTIC N/A 04/04/2024 Performed by Polly Reeder MD at [facility] fistulogram arm/international controller Left 08/14/2024 Performed by Zac Lombardi MD at [facility] CARDIAC CATH LABS LAPAROSCOPIC CHOLECYSTECTOMY 2006 NASAL SINUS SURGERY 2003 cleaned out NEPHRECTOMY PARTIAL OPEN(BIOBANK) Right 07/21/2023 Performed by Mary Telles MD at [facility] RENAL BIOPSY 12/23/2022 SKIN BIOPSY Several times SKIN BIOPSY 10/30/2024 STRABISMUS SURGERY Bilateral 1961 Vascular Invasive Lower Extremity Angiogram with possible intervention Left 10/25/2024 Performed by Zac Lombardi MD at [facility] CARDIAC CATH LABS VASECTOMY years ago WHIPPLE WITH INTRA OPERATIVE ULTRASOUND- BIOBANK N/A 05/09/2024 Performed by Jeffrey Mcfadden MD at [facility] FAMILY HISTORY: Family History Problem Relation Age of Onset Lung cancer Mother Brain cancer Mother Heart disease Father Heart disease Sister CABG x's 4 Diabetes Sister Diabetes Brother Stroke Paternal Grandmother Heart attack Paternal Grandfather Early Paternal Grandfather 40 Diabetes Son Cancer Half Brother thyroid and pancreatic Anesthesia problems Neg Hx Bleeding Disorder Neg Hx Clotting disorder Neg Hx Prostate cancer Neg Hx Colon cancer Neg Hx Kidney cancer Neg Hx Thyroid cancer Neg Hx SOCIAL HISTORY: The patient reports that he does not currently use alcohol. He reports that he has been smoking cigarettes. He started smoking about 50 years ago. He has a 50.4 pack-year smoking history. He has been exposed to tobacco smoke. He has never used smokeless tobacco. He reports current drug use. Drug: Marijuana. ALLERGIES: No Known Allergies MEDICATIONS: Current Outpatient Medications: ALPRAZolam (XANAX) 0.25 mg tablet, Take 1 tablet (0.25 mg total) by mouth as needed in the morning and 1 tablet (0.25 mg total) as needed at noon and 1 tablet (0.25 mg total) as needed in the evening for anxiety., Disp: , Rfl: atorvastatin (LIPITOR) [...] morning before breakfast Indications: type 2 diabetes mellitus., Disp: , Rfl: levothyroxine (SYNTHROID, LEVOTHROID) 50 MCG tablet, Take 1 tablet (50 mcg total) by mouth in the morning. Indications: a condition with low thyroid hormone levels., Disp: , Rfl: zhotvk-xsiqumkw-pvqioal (CREON) 36,000-114,000- 180,000 unit capsule,delayed release(DR/EC), 2 capsules with Breakfast and Dinner and 1 with snacks (Patient taking differently: Take by mouth Indications: exocrine pancreatic insufficiency. 2 capsules with Breakfast and Dinner and 1 with snacks), Disp: 200 capsule, Rfl: 11 loperamide (IMODIUM A-D) 2 mg tablet, Take 1 tablet (2 mg total) by mouth as needed in the morning and 1 tablet (2 mg total) as needed at noon and 1 tablet (2 mg total) as needed in the evening and 1 tablet (2 mg total) as needed before bedtime for diarrhea., Disp: , Rfl: losartan (COZAAR) 25 mg tablet, Take 1 tablet (25 mg total) by mouth in the morning. Indications: high blood pressure. 1x per day., Disp: , Rfl: ondansetron ODT (ZOFRAN ODT) 4 mg disintegrating tablet, Dissolve 1 tablet (4 mg total) on tongue every 8 (eight) hours as needed for nausea or vomiting., Disp: 20 tablet, Rfl: 0 sevelamer (RENVELA) 800 mg tablet, Take 1 tablet (800 mg total) by mouth in the morning and 1 tablet (800 mg total) at noon and 1 tablet (800 mg total) in the evening. Take with meals. Indications: renal osteodystrophy with hyperphosphatemia., Disp: , Rfl: REVIEW OF SYSTEMS: Review of Systems Constitutional: Negative. Negative for activity change and appetite change. HENT: Positive for hearing loss. Negative for congestion, ear discharge, ear pain, sore throat and trouble swallowing. Eyes: Positive for visual disturbance (glasses). Negative for pain and discharge. Respiratory: Negative for apnea, cough, shortness of breath, wheezing and stridor. Cardiovascular: Negative for chest pain and palpitations. Left UE AV fistula Gastrointestinal: Negative for nausea, vomiting, abdominal pain, diarrhea and abdominal distention. Endocrine: Negative. Genitourinary: Negative for dysuria, urgency and flank pain. Musculoskeletal: Positive for arthralgias. Negative for myalgias and joint swelling. Skin: Negative for rash and wound. Allergic/Immunologic: Negative. Neurological: Negative for dizziness, seizures, syncope, light-headedness and headaches. Psychiatric/Behavioral: Negative for agitation. VITAL SIGNS: BP 119/66 Pulse 68 Temp 36.4 C (97.5 F) (Temporal) Resp 20 Ht 175.3 cm (5' 9 ) Wt 65.3 kg (143 lb 15.4 oz) SpO2 97% BMI 21.26 kg/m PHYSICAL EXAM: Physical Exam Vitals reviewed. Constitutional: General: He is not in acute distress. Appearance: Normal appearance. He is well-developed. He is not ill-appearing or toxic-appearing. HENT: Head: Normocephalic. Eyes: General: Lids are normal. Conjunctiva/sclera: Conjunctivae normal. Cardiovascular: Rate and Rhythm: Normal rate and regular rhythm. Pulses: Radial pulses are 2+ on the right side and 2+ on the left side. Heart sounds: Normal heart sounds, S1 normal and S2 normal. No murmur heard. Arteriovenous access: Left arteriovenous access is present. Comments: Left UE AV fistula + bruit and +thrill Pulmonary: Effort: Pulmonary effort is normal. No respiratory distress. Breath sounds: Normal breath sounds. Abdominal: General: Bowel sounds are normal. Palpations: Abdomen is soft. Tenderness: There is no abdominal tenderness. Musculoskeletal: Right lower leg: No edema. Left lower leg: No edema. Skin: General: Skin is warm and dry. Neurological: Mental Status: He is alert and oriented to person, place, and time. Psychiatric: Behavior: Behavior is cooperative. PERTINENT TESTING AVAILABLE IN [facility] (WITHIN THE PAST 2 YEARS): EK12/18/2024 Echo: Echo complete W/O contrast 12/14/2024 Interpretation Summary Left Ventricle: Left ventricle is small. There is severe concentric increased wall thickness/hypertrophy. Systolic function is normal with an ejection fraction of 55-60%. The quantitative EF by 2D Dash biplane is 59%. Grade I diastolic dysfunction (impaired relaxation) is present. Calculation of the global longitudinal strain revealed a strain rate of -20%. Lateral E' is 8.81 cm/s. Medial E' is 3.70 cm/s. Tricuspid Valve: RVSP calculated at 13 mmHg. RVSP is based on RA pressure of 3 mmHg. No results found for this or any previous visit from the past 913 days. Echo complete W/O contrast Result Date: 12/14/2024 Left Ventricle: Left ventricle is small. There is severe concentric increased wall thickness/hypertrophy. Systolic function is normal with an ejection fraction of 55-60%. The quantitative EF by 2D Dash biplane is 59%. Grade I diastolic dysfunction (impaired relaxation) is present. Calculation of the global longitudinal strain revealed a strain rate of -20%. Lateral E' is 8.81 cm/s. Medial E' is 3.70 cm/s. Tricuspid Valve: RVSP calculated at 13 mmHg. RVSP is based on RA pressure of 3 mmHg. Stress test: Nuc stress Lexiscan 11/16/2023 Interpretation Summary Normal myocardial perfusion study with soft tissue artifact Inferior perfusion defect likely represents soft tissue artifact. No definite ischemia noted. Ejection fraction 65% Global left ventricular systolic function is normal No ischemic ECG changes noted in a baseline abnormal EKG Low risk Nuc stress Lexiscan Result Date: 11/16/2023 Normal myocardial perfusion study with soft tissue artifact Inferior perfusion defect likely represents soft tissue artifact. No definite ischemia noted. Ejection fraction 65% Global left ventricular systolic function is normal No ischemic ECG changes noted in a baseline abnormal EKG Low risk Holter: Holter monitor 3-5 days 11/16/2023 Narrative Baseline underlying rhythm sinus rhythm. Average heart rate 73 beats per minute. Heart rate ranged between 52-119 beats per minute. Very low burden PACs, 0.04% burden. Total of 20 PVCs. Single short atrial run lasting for 4 beats only at rate 119 bpm. No atrial fibrillation or flutter. No significant pause or block. No results found. Cardiac catheterization: No results found. Carotids: Vas carotid duplex bilateral Result Date: 05/12/2023 [...] internal carotid artery. Antegrade vertebral artery flow. Pulmonary function testing: No results found RECENT LABS: Lab Results Component Value Date WBC 8.5 11/13/2024 HGB 12.5 (L) 11/13/2024 HCT 37.0 (L) 11/13/2024 PLT 155 11/13/2024 INR 1.1 05/09/2024 PTT 41 (H) 04/25/2024 SODIUM 143 11/13/2024 K 4.5 11/13/2024 CL 104 11/13/2024 CO2 27 11/13/2024 CALCIUM 8.9 11/13/2024 ALKPHOS 144 (H) 11/13/2024 ALBUMIN 4.0 11/13/2024 GLU 156 (H) 11/13/2024 HGBA1C 5.7 (H) 04/25/2024 ALT 64 (H) 11/13/2024 AST 37 11/13/2024 CREATININE 2.59 (H) 11/13/2024 BUN 27 11/13/2024 GFR ORDERED IN ERROR 05/09/2024 GFR ORDERED IN ERROR 05/09/2024 EGFR 26 (L) 11/13/2024 *Please note that labs listed above are the most recent lab values available in [facility] at the time the H&P was signed. ASSESSMENT / DIAGNOSIS: PAD (peripheral artery disease) PLAN: Zev Crystal is scheduled for ENDARTERECTOMY FEMORAL - Left, ANGIOPLASTY ILIAC-POPLITEAL - Left with Dr. Lombardi on 12/26/2024. MIYA Shaw 12/18/24 [address] [employer] Work Phone: 12-18-2024 History and physical note PRE-ADMISSION TESTING HISTORY AND PHYSICAL EXAM DATE: 12/18/24 PCP: DYLAN MONTILLA MD CHIEF COMPLAINT: PAD (peripheral artery disease) HISTORY OF PRESENT ILLNESS: Zev Crystal, a 69 y.o. White or male, presents to [facility] for a pre-surgical H&P. Patient complains of severe pain when he walks about 1 block distance. Maybe even less than that he will start having the pain specially over the left leg At rest the patient does not have any pain at all. Patient denies any discolorations or wounds over his lower extremities. Vascular Invasive Lower Extremity Angiogram with possible intervention 10/25/2024 Findings: Abdominal aorta is irregular and calcified but it is widely patent. Bilateral renal arteries are patent. Bilateral common iliac arteries are calcified and irregular but they are patent. The right external iliac artery appears to be calcified and irregular but it is patent. The left external iliac artery has about 80% stenosis at the proximal portion of the artery. Bilateral internal iliac arteries appeared to be occluded. On the left side the left common femoral artery is patent. The left deep femoral artery has about 60-70% stenosis at the origin. The rest of the deep femoral artery appears to be widely patent. The left superficial femoral artery has about 60-70% long stenosis from the origin down further distally about 2-3 cm distal. The rest of the superficial femoral artery is extremely irregular and calcified. Popliteal artery occludes at the proximal to mid portion it is an occlusion that extends about 5-6 cm with calcification. The popliteal artery reconstitutes at the knee level area. The [id number]-[id number] popliteal artery is patent and smooth. The left anterior tibial, posterior tibial, and peroneal arteries are patent. The left TP trunk is patent. PAST MEDICAL HISTORY: Past Medical History: Diagnosis Date AAA (abdominal aortic aneurysm) monitoring Abnormal echocardiogram Abnormal EKG Anemia received iron infusions Anxiety xanax prn Arthritis hands CKD (chronic kidney disease) stage 4, GFR 15-29 ml/min ([facility]) 06/2023 on dialysis [facility] M,W,F CLL (chronic lymphocytic leukemia) ([facility]) 05/25/2024 no treatment Coronary artery disease patient states 1 artery occuluded, no stents DDD (degenerative disc disease), lumbar Dental disease missing tooth front Diabetes mellitus type 2, controlled ([facility]) Dialysis patient M,W,F [facility] Essential hypertension 02/23/2018 Exocrine pancreatic insufficiency GERD (gastroesophageal reflux disease) no medications HL (hearing loss) hearing aid lt ear, deaf right ear Hypertrophic cardiomyopathy ([facility]) 01/02/2024 Hypothyroidism Idiopathic acute pancreatitis without infection or necrosis 02/23/2018 IPMN (intraductal papillary mucinous neoplasm) 04/11/2024 Mixed hyperlipidemia 02/23/2018 Nicotine dependence 02/23/2018 PAD (peripheral artery disease) Pancreatic neoplasm Whipple done Pancreatitis Peptic ulceration when he was younger Renal cell carcinoma ([facility]) right, left kidney atrophied Skin cancer BCC/SCC Varicella 03/2024 shingles Visual impairment glasses prn PAST SURGICAL HISTORY: Past Surgical History: Procedure Laterality Date BRACHIAL CEPHALIC ARTERIOVENOUS FISTULA Left 01/11/2024 Performed by Zac Lombardi MD at [facility] CARDIAC CATHETERIZATION 2004 2007 [facility] COLONOSCOPY 2012 CVC REMOVAL N/A 06/25/2024 Performed by Zac Lombardi MD at [facility] CARDIAC CATH LABS ELBOW SURGERY Left 03/14/2016 ENDOSCOPIC ULTRASOUND UPPER N/A 04/04/2024 Performed by Polly Reeder MD at [facility] ESOPHAGOGASTRODUODENOSCOPY DIAGNOSTIC N/A 04/04/2024 Performed by Polly Reeder MD at [facility] fistulogram arm/international controller Left 08/14/2024 Performed by Zac Lombardi MD at [facility] C[facility]IAC CATH LABS LAPAROSCOPIC CHOLECYSTECTOMY 2005 NASAL SINUS SURGERY 2003 cleaned out NEPHRECTOMY PARTIAL OPEN(BIOBANK) Right 07/21/2023 Performed by Mary Telles MD at [facility] RENAL BIOPSY 12/23/2022 SKIN BIOPSY Several times SKIN BIOPSY 10/30/2024 STRABISMUS SURGERY Bilateral 1961 Vascular Invasive Lower Extremity Angiogram with possible intervention Left 10/25/2024 Performed by Zac Lombardi MD at [facility] CARDIAC CATH LABS VASECTOMY years ago WHIPPLE WITH INTRA OPERATIVE ULTRASOUND- BIOBANK N/A 05/09/2024 Performed by Jeffrey Mcfadden MD at [facility] FAMILY HISTORY: Family History Problem Relation Age of Onset Lung cancer Mother Brain cancer Mother Heart disease Father Heart disease Sister CABG x's 4 Diabetes Sister Diabetes Brother Stroke Paternal Grandmother Heart attack Paternal Grandfather Early Paternal Grandfather 40 Diabetes Son Cancer Half Brother thyroid and pancreatic Anesthesia problems Neg Hx Bleeding Disorder Neg Hx Clotting disorder Neg Hx Prostate cancer Neg Hx Colon cancer Neg Hx Kidney cancer Neg Hx Thyroid cancer Neg Hx SOCIAL HISTORY: The patient reports that he does not currently use alcohol. He reports that he has been smoking cigarettes. He started smoking about 50 years ago. He has a 50.4 pack-year smoking history. He has been exposed to tobacco smoke. He has never used smokeless tobacco. He reports current drug use. Drug: Marijuana. ALLERGIES: No Known Allergies MEDICATIONS: Current Outpatient Medications: ALPRAZolam (XANAX) 0.25 mg tablet, Take 1 tablet (0.25 mg total) by mouth as needed in the morning and 1 tablet (0.25 mg total) as needed at noon and 1 tablet (0.25 mg total) as needed in the evening for anxiety., Disp: , Rfl: atorvastatin (LIPITOR) [...] morning before breakfast Indications: type 2 diabetes mellitus., Disp: , Rfl: levothyroxine (SYNTHROID, LEVOTHROID) 50 MCG tablet, Take 1 tablet (50 mcg total) by mouth in the morning. Indications: a condition with low thyroid hormone levels., Disp: , Rfl: uzkbbs-mpjlwsua-hcxjqrd (CREON) 36,000-114,000- 180,000 unit capsule,delayed release(DR/EC), 2 capsules with Breakfast and Dinner and 1 with snacks (Patient taking differently: Take by mouth Indications: exocrine pancreatic insufficiency. 2 capsules with Breakfast and Dinner and 1 with snacks), Disp: 200 capsule, Rfl: 11 loperamide (IMODIUM A-D) 2 mg tablet, Take 1 tablet (2 mg total) by mouth as needed in the morning and 1 tablet (2 mg total) as needed at noon and 1 tablet (2 mg total) as needed in the evening and 1 tablet (2 mg total) as needed before bedtime for diarrhea., Disp: , Rfl: losartan (COZAAR) 25 mg tablet, Take 1 tablet (25 mg total) by mouth in the morning. Indications: high blood pressure. 1x per day., Disp: , Rfl: ondansetron ODT (ZOFRAN ODT) 4 mg disintegrating tablet, Dissolve 1 tablet (4 mg total) on tongue every 8 (eight) hours as needed for nausea or vomiting., Disp: 20 tablet, Rfl: 0 sevelamer (RENVELA) 800 mg tablet, Take 1 tablet (800 mg total) by mouth in the morning and 1 tablet (800 mg total) at noon and 1 tablet (800 mg total) in the evening. Take with meals. Indications: renal osteodystrophy with hyperphosphatemia., Disp: , Rfl: REVIEW OF SYSTEMS: Review of Systems Constitutional: Negative. Negative for activity change and appetite change. HENT: Positive for hearing loss. Negative for congestion, ear discharge, ear pain, sore throat and trouble swallowing. Eyes: Positive for visual disturbance (glasses). Negative for pain and discharge. Respiratory: Negative for apnea, cough, shortness of breath, wheezing and stridor. Cardiovascular: Negative for chest pain and palpitations. Left UE AV fistula Gastrointestinal: Negative for nausea, vomiting, abdominal pain, diarrhea and abdominal distention. Endocrine: Negative. Genitourinary: Negative for dysuria, urgency and flank pain. Musculoskeletal: Positive for arthralgias. Negative for myalgias and joint swelling. Skin: Negative for rash and wound. Allergic/Immunologic: Negative. Neurological: Negative for dizziness, seizures, syncope, light-headedness and headaches. Psychiatric/Behavioral: Negative for agitation. VITAL SIGNS: BP 119/66 Pulse 68 Temp 36.4 C (97.5 F) (Temporal) Resp 20 Ht 175.3 cm (5' 9 ) Wt 65.3 kg (143 lb 15.4 oz) SpO2 97% BMI 21.26 kg/m PHYSICAL EXAM: Physical Exam Vitals reviewed. Constitutional: General: He is not in acute distress. Appearance: Normal appearance. He is well-developed. He is not ill-appearing or toxic-appearing. HENT: Head: Normocephalic. Eyes: General: Lids are normal. Conjunctiva/sclera: Conjunctivae normal. Cardiovascular: Rate and Rhythm: Normal rate and regular rhythm. Pulses: Radial pulses are 2+ on the right side and 2+ on the left side. Heart sounds: Normal heart sounds, S1 normal and S2 normal. No murmur heard. Arteriovenous access: Left arteriovenous access is present. Comments: Left UE AV fistula + bruit and +thrill Pulmonary: Effort: Pulmonary effort is normal. No respiratory distress. Breath sounds: Normal breath sounds. Abdominal: General: Bowel sounds are normal. Palpations: Abdomen is soft. Tenderness: There is no abdominal tenderness. Musculoskeletal: Right lower leg: No edema. Left lower leg: No edema. Skin: General: Skin is warm and dry. Neurological: Mental Status: He is alert and oriented to person, place, and time. Psychiatric: Behavior: Behavior is cooperative. PERTINENT TESTING AVAILABLE IN [facility] (WITHIN THE PAST 2 YEARS): EK12/18/2024 Echo: Echo complete W/O contrast 12/14/2024 Interpretation Summary Left Ventricle: Left ventricle is small. There is severe concentric increased wall thickness/hypertrophy. Systolic function is normal with an ejection fraction of 55-60%. The quantitative EF by 2D Dash biplane is 59%. Grade I diastolic dysfunction (impaired relaxation) is present. Calculation of the global longitudinal strain revealed a strain rate of -20%. Lateral E' is 8.81 cm/s. Medial E' is 3.70 cm/s. Tricuspid Valve: RVSP calculated at 13 mmHg. RVSP is based on RA pressure of 3 mmHg. No results found for this or any previous visit from the past 913 days. Echo complete W/O contrast Result Date: 12/14/2024 Left Ventricle: Left ventricle is small. There is severe concentric increased wall thickness/hypertrophy. Systolic function is normal with an ejection fraction of 55-60%. The quantitative EF by 2D Dash biplane is 59%. Grade I diastolic dysfunction (impaired relaxation) is present. Calculation of the global longitudinal strain revealed a strain rate of -20%. Lateral E' is 8.81 cm/s. Medial E' is 3.70 cm/s. Tricuspid Valve: RVSP calculated at 13 mmHg. RVSP is based on RA pressure of 3 mmHg. Stress test: Nuc stress Lexiscan 11/16/2023 Interpretation Summary Normal myocardial perfusion study with soft tissue artifact Inferior perfusion defect likely represents soft tissue artifact. No definite ischemia noted. Ejection fraction 65% Global left ventricular systolic function is normal No ischemic ECG changes noted in a baseline abnormal EKG Low risk Nuc stress Lexiscan Result Date: 11/16/2023 Normal myocardial perfusion study with soft tissue artifact Inferior perfusion defect likely represents soft tissue artifact. No definite ischemia noted. Ejection fraction 65% Global left ventricular systolic function is normal No ischemic ECG changes noted in a baseline abnormal EKG Low risk Holter: Holter monitor 3-5 days 11/16/2023 Narrative Baseline underlying rhythm sinus rhythm. Average heart rate 73 beats per minute. Heart rate ranged between 52-119 beats per minute. Very low burden PACs, 0.04% burden. Total of 20 PVCs. Single short atrial run lasting for 4 beats only at rate 119 bpm. No atrial fibrillation or flutter. No significant pause or block. No results found. Cardiac catheterization: No results found. Carotids: Vas carotid duplex bilateral Result Date: 05/12/2023 [...] internal carotid artery. Antegrade vertebral artery flow. Pulmonary function testing: No results found RECENT LABS: Lab Results Component Value Date WBC 8.5 11/13/2024 HGB 12.5 (L) 11/13/2024 HCT 37.0 (L) 11/13/2024 PLT 155 11/13/2024 INR 1.1 05/09/2024 PTT 41 (H) 04/25/2024 SODIUM 143 11/13/2024 K 4.5 11/13/2024 CL 104 11/13/2024 CO2 27 11/13/2024 CALCIUM 8.9 11/13/2024 ALKPHOS 144 (H) 11/13/2024 ALBUMIN 4.0 11/13/2024 GLU 156 (H) 11/13/2024 HGBA1C 5.7 (H) 04/25/2024 ALT 64 (H) 11/13/2024 AST 37 11/13/2024 CREATININE 2.59 (H) 11/13/2024 BUN 27 11/13/2024 GFR ORDERED IN ERROR 05/09/2024 GFR ORDERED IN ERROR 05/09/2024 EGFR 26 (L) 11/13/2024 *Please note that labs listed above are the most recent lab values available in [facility] at the time the H&P was signed. ASSESSMENT / DIAGNOSIS: PAD (peripheral artery disease) PLAN: Zev Crystal is scheduled for ENDARTERECTOMY FEMORAL - Left, ANGIOPLASTY ILIAC-POPLITEAL - Left with Dr. Lombardi on 12/26/2024. MIYA Shaw 12/18/24 1025 documented in this encounter [facility] 12-18-2024 Instructions Shelby Park RN - 12/18/2024 9:30 AM EDT Your surgery/procedure is scheduled at [facility] on 12/26/2024 at 1200 pm Arrival Time 1000 am [facility] Address: [address] [place] [address] in Parking lot located on [facility]. Report to the Entrance B. Check in at the information desk the surgery. The waiting room located on the second floor. If you have any questions prior to surgery, please call Pre-Admission Clinic at [phone] between 7:30 am and 4:30 pm Tuesday through Tuesday. If you have questions the morning of surgery, please call the Pre-op Department at [phone]. Notify your SURGEON if you develop any illness such as a cold, cough, fever, sore throat, vomiting or are hospitalized between now and your surgery. Medication Instructions (Do not stop your medications without consulting the prescribing physician). Take the following medications the morning of surgery with a sip of water: Follow instructions given per surgeon Diabetic or Weight loss medications: HOLD NA LAST DOSE NA Take inhalers as prescribed the morning of surgery. Due to the risk associated with these medications. If these medications are not held per instruction below, your surgery is at an increased risk for cancellation. SGLT2 Medications- Hold 3 days prior to surgery: Jardiance, Empagliflozin, Farxiga, Dapagliflozin, Invokana, Canagliflozin, Trijardy, Synjardy GLP-1 Medications (Injection or Pill)- If taken daily hold day of surgery. If taken weekly, hold 1 week prior to surgery: Adlyxin, Byetta, Bydureon, Ozempic, Rybelsus,Trulicity, Victoza, Wegovy, Lixisenatide, Exenatide, Semaglutide, Dulaglutide, Liraglutide GIP/GLP-1(Injection or Pill)- If taken daily hold day of surgery. If taken weekly, hold 1 week prior to surgery: Mounjaro . Blood thinners: Please contact your prescribing [...] CHG soap the morning of your surgery. In order to help prevent infection post-operatively, [...] including wedding rings, body piercings (including dermal piercing's, hair extensions that contain metal, nail belgian, make-up, and contact lens. You may brush your teeth the morning of surgery, but do not swallow the water. Wear your dentures and partial plates to the hospital (no adhesive). Shower the night the before. If applicable, use the CHG (chlorhexidine gluconate) soap or wipes. Place clean linens on your bed after showering. Do not allow pets to sleep in your bed What should I bring to the hospital? Eyeglass or contact lens case If you [...] hours during the day and early evening. Surgical Site Infection Prevention What is a Surgical Site Infection (SSI)? Infection can happen to the area of the body where surgery is done. This is called a surgical site infection (SSI). A SSI does not happen very often. What are some of the things that [...] Use the soap as you were told. Place clean sheets on your bed the night before surgery and do not allow your pets in your bed. If you smoke or vape, stop or cut down. This creates a stress response in your body that increases inflammation, constricts blood vessels and deprives your tissues of oxygen. After surgery, this stress response disrupts the travel of oxygen, nutrients, and blood to your surgical site, interfering with the wound healing process. It also decreases the ability of your cells to fight infection. Ask your doctor about ways to quit. If you have high blood sugars or diabetes please talk with your doctor about having healthy blood sugar levels to promote healing. Do not shave near where you will have surgery. Shaving can irritate the skin and make it easier to get and infection. After surgery: Be sure that the doctors and nurses clean their hands before and after touching you. Be sure your family and friends clean their hands before and after visiting you. Do not be afraid to remind them. Always wash your hands before touching your incisional area. * Care for your wound at home as told by your doctor or nurse * Call your doctor right away if you have fever, redness, increased pain, or drainage at the surgery site. Can SSIs be treated? Antibiotics are used to treat SSI. Some patients may need another surgery to treat the infection. The doctor will discuss treatment options with you. Further questions? Contact the doctor, nurse or the Infection Prevention and Control department if you have any questions. PATIENT RIGHTS AND RESPONSIBILITIES As a patient at [facility], you have the right to: Receive medical care and be informed of who is taking care of you Be treated with dignity and respect Have a family member/product support sales representative of choice and your physician notified of your admission Receive information and actively participate in decisions about your care and treatment Refuse care, treatment and services Decide who may provide your support and speak for you Access denominational and spiritual services Participate in ethical issues [...] of hospital charges and payment methods Patient/patient product support sales representative responsibilities are to: Provide information [...] and report for surgery in clean clothes. Place freshly laundered linens on your bed after bathing with wipes or soap. Do not allow pets in your bed documented in this encounter [facility] 12-18-2024 Miscellaneous Notes Called [facility] will fax monthly labs. Spoke with Rema Lombardi office ok to use labs from dialysis. documented in this encounter [facility] 12-18-2024 Nurse Note Called [facility] will fax monthly labs. [facility] 12-18-2024 Nurse Note Spoke with Rema Lombardi office ok to use labs from dialysis. [facility] 11-16-2024 History of Present illness Narrative Pt here for f/u lymphoma, CT c/a. Orders received to: F/U IN 4 months, CBC CMP. Follow up scheduled. Will get lab work prior to appt. documented in this encounter [facility] 11-16-2024 History of Present illness Narrative Images from the original note were not included. [facility] 11/16/24 Zev Crystal is a 69 y.o. year old male seen today in the oncology clinic. Chief Complaint Patient presents with Follow-up History of Present Illness: Mr. Crystal is a 69 y.o. male history of abdominal aortic aneurysm, [...] 5. Final bile duct margin: Not involved. Interval history: The patient is slowly recovering from surgery. His energy is back to baseline. Due to peripheral vascular disease he still walks very slowly. He is currently getting dialysis. Currently he is not a candidate for kidney transplant. Oncology History Renal cell carcinoma ([facility]) 05/11/2023 Initial Diagnosis Renal cell carcinoma ([facility]) 05/25/2024 - Cancer Staged Staging form: Kidney, AJCC 8th Edition - Clinical: Stage I (cT1a, cN0, cM0) - Signed by Stanley Gillette MD on 05/25/2024 Past Medical History: Diagnosis Date AAA (abdominal aortic aneurysm) monitoring Anemia received iron infusions Anxiety xanax prn Arthritis CKD (chronic kidney disease) stage 4, GFR 15-29 ml/min ([facility]) 06/2023 Coronary artery disease patient states 1 artery occuluded, no stents DDD (degenerative disc disease), lumbar Dental disease missing tooth front Diabetes mellitus type 2, controlled ([facility]) Dialysis patient [facility] Essential hypertension 02/23/2018 HL (hearing loss) hearing aid lt ear, deaf right ear Hypothyroidism Mixed hyperlipidemia 02/23/2018 Nicotine dependence 02/23/2018 Pancreatic neoplasm Pancreatitis Peptic ulceration when he was younger Renal cell carcinoma ([facility]) right, left kidney atrophied Skin cancer BCC/SCC Varicella 03/2024 shingles Visual impairment glasses prn Past Surgical History: Procedure Laterality Date BIOPSY MASS 04/01/2023 right kidney BRACHIAL CEPHALIC ARTERIOVENOUS FISTULA Left 01/11/2024 Performed by Zac Lombardi MD at [facility] CARDIAC CATHETERIZATION 2004 2007 [facility] [place] CHOLECYSTECTOMY 2005 COLONOSCOPY 2012 CVC REMOVAL N/A 06/25/2024 Performed by Zac Lombardi MD at [facility]ATH [facility]S ENDOSCOPIC ULTRASOUND UPPER N/A 04/04/2024 Performed by Polly Reeder MD at [facility] ESOPHAGOGASTRODUODENOSCOPY DIAGNOSTIC N/A 04/04/2024 Performed by Polly Reeder MD at [facility] fistulogram arm/international controller Left 08/14/2024 Performed by Zac Lombardi MD at [facility] CATH [facility] NASAL SINUS SURGERY 2003 cleaned out NEPHRECTOMY PARTIAL OPEN(BIOBANK) Right 07/21/2023 Performed by Mary Telles MD at [facility] SKIN BIOPSY Several times STRABISMUS SURGERY 1961 Vascular Invasive Lower Extremity Angiogram with possible intervention Left 10/25/2024 Performed by Zac Lombardi MD at [facility]ATH [facility] VASECTOMY WHIPPLE WITH INTRA OPERATIVE ULTRASOUND- BIOBANK N/A 05/09/2024 Performed by Jeffrey Mcfadden MD at [facility] Family History Problem Relation Age of Onset Lung cancer Mother Brain cancer Mother Heart disease Father Heart disease Sister CABG x's 4 Diabetes Sister Diabetes Brother Stroke Paternal Grandmother [...] Narrative Lives with . Worked at a [employer]. Has a dog in the home. Social Drivers of Health Food Insecurity: No Food Insecurity (10/25/2024) Hunger Screening Food Insecurity - Worry: Never [...] Known Allergies Medication List Accurate as of November 16, 2024 11:08 AM. If you have any questions, ask your nurse or doctor. Medications Continued This Visit ALPRAZolam 0.25 mg tablet Refills: 0 Dose: 0.25 mg Commonly known as: XANAX atorvastatin 40 mg tablet Refills: 0 Dose: 40 mg Commonly known as: LIPITOR carvediloL 25 mg tablet Refills: 0 Dose: 25 mg Commonly known as: COREG fluorouraciL 5 % cream Refills: 0 Commonly known as: EFUDEX glimepiride 2 mg tablet Refills: 0 Dose: 2 mg Commonly known as: AMARYL levothyroxine 50 MCG tablet Refills: 0 Dose: 50 mcg Commonly known as: SYNTHROID, LEVOTHROID [id number]-gflrobuj-vtmmoqs 36,000-114,000- 180,000 unit capsule,delayed release(DR/EC) Quantity: 200 capsule Refills: 11 For diagnoses: Exocrine pancreatic insufficiency Signed by: FLAVIA Langston 2 capsules with Breakfast and Dinner and 1 with snacks Commonly known as: CREON loperamide 2 mg tablet Refills: 0 Dose: 2 mg Commonly known as: IMODIUM A-D losartan 25 mg tablet Refills: 0 Dose: 25 mg Commonly known as: COZAAR ondansetron ODT 4 mg disintegrating tablet Quantity: 20 tablet Refills: 0 For diagnoses: IPMN (intraductal papillary mucinous neoplasm) Dose: 4 mg Signed by: Amanda Randall PA-C 4 mg, oral, Every 8 hours PRN Commonly known as: ZOFRAN ODT sevelamer 800 mg tablet Refills: 0 Dose: 800 mg Commonly known as: RENVELA Review of Symptoms: Review of Systems ECO- Symptomatic; fully ambulatory Physical Exam: General: Well appearing, in no acute distress. Vitals: BP 119/69 Pulse 83 Temp 36.4 C (97.5 F) (Oral) Resp 16 Ht 175.3 cm (5' 9.02 ) Wt 63.1 kg (139 lb 3.2 oz) SpO2 100% BMI 20.55 kg/m Body mass index is 20.55 kg/m . Eyes: No icterus, no conjuctival [...] stomach with tip not included in the [id number]. A tunneled right jugular dialysis catheter tip [...] Recent Results (from the past 2 weeks) Comprehensive metabolic panel Collection Time: 11/13/24 8:27 AM Result Value Ref Range Sodium 143 134 - 146 mmol/L Potassium, Bld 4.5 3.5 - 5.0 mmol/L Chloride 104 98 - 109 mmol/L CO2 27 22 - 32 mmol/L Anion gap 12 5 - 15 mmol/L BUN 27 5 - 27 mg/dL Creatinine 2.59 (H) 0.60 - 1.30 mg/dL Glucose 156 (H) 65 - 99 mg/dL Calcium 8.9 8.5 - 10.5 mg/dL Total Protein 6.1 6.0 - 8.0 g/dL Albumin 4.0 3.2 - 5.3 g/dL Alkaline Phosphatase 144 (H) 39 - 130 U/L AST 37 0 - 41 U/L ALT 64 (H) 0 - 40 U/L Total bilirubin 0.5 0.3 - 1.2 mg/dL eGFR (CKD-EPI)non-race dependent 26 (L) >59 ml/min/1.73sq.m CBC auto differential Collection Time: 11/13/24 8:27 AM Result Value Ref Range White Blood Cells 8.5 4.0 - 11.0 X10E9/L RBC count 3.98 (L) 4.10 - 5.70 X10E12/L Hemoglobin 12.5 (L) 13.0 - 17.0 g/dL Hematocrit 37.0 (L) 39 - 49 % MCV 93 80 - 100 fL MCH 31.4 27 - 34 pg MCHC 33.7 32 - 36 g/dL RDW 14.0 11.5 - 15.0 % Platelets 155 150 - 450 X10E9/L MPV 8.8 7 - 12 fL Seg neutrophil 57.0 % Lymphocyte 35.0 % Monocytes 2.0 % Eosinophil 4.0 % Basophil 2.0 % Neutrophils Absolute (M) 4.8 1.5 - 6.6 X10E9/L Lymphocytes Absolute 3.0 1.0 - 3.5 X10E9/L Monocytes Absolute 0.2 0 - 0.9 X10E9/L Eosinophils Absolute 0.3 0.0 - 0.4 X10E9/L Basophils Absolute 0.2 0.0 - 0.2 X10E9/L Ovalocytes 1+ (A) NONE^NONE Diagnosis Problem list: Problem List Items Addressed This Visit Digestive Pancreatic neoplasm Genitourinary Renal cell carcinoma (CMS-HCC) - Primary Relevant Medications fluorouraciL (EFUDEX) 5 % cream Hematopoietic and Hemostatic CLL (chronic lymphocytic leukemia) (CMS-HCC) Relevant Medications fluorouraciL (EFUDEX) 5 % cream Impression: Stage I clear cell RCC in [...] lymphocytic leukemia/lymphocytic lymphoma. T (11:14) translocation is negative, rule out mantle cell lymphoma CT CHEST with contrast 07/2024 (combined with CT abd) showed no suspicious lymphadenopathy. Continue observation for kidney cancer and CLL. F/U IN 4 months, CBC CMP. Plan to repeat another CT scan in May 2025 without contrast due to kidney function. Thank you. Stanley Gillette MD Please note that portions of this note were generated using voice recognition [employer] dictation software. Although every effort was made to ensure the accuracy of this automated electric train driver, some errors in electric train driver may have occurred. CC: Patient Care Team: Dylan Montilla MD as PCP - General (Family Medicine) Mary Telles MD as Referring Physician (Urology) Zac Lombardi MD as Surgeon (Vascular Surgery) Kaveh Pearson MD as Referring Physician (Nephrology) Jeffrey Mcfadden MD as Consulting Physician (General Surgery) Mckinley Winkler MD as Consulting Physician (Cardiology) PCP:DYLAN MONTILLA Referring MD: Amanda Randall P* documented in this encounter [employer] 11-16-2024 Instructions Stanley Gillette MD - 11/16/2024 10:30 AM EDT F/U IN 4 months, CBC CMP. [facility] History of Present illness Narrative Images from the original note were not included. Mckinley Winkler MD, [facility] Aravind Daniels, [address]AMIL[address] Jones, [address] [place] [address] Name: Zev Crystal : 1955 Gender: male PCP: DYLAN MONTILLA MD Age: 69 y.o. PCP Visit Date: 11/12/24 CHIEF COMPLAINT: Zev Crystal is an 69 y.o. male Here for follow up visit. Last seen 01/15. Had [facility]ipple in Apr for pancreatic lesion concerning for high-grade dysplasia - no malignancy per pt. No CV issues. Now preop for LLE bypass with Dr Garcia on 12/26/24. Doing pretty well. Here with . Still on HD - no problems per pt Sometimes can barely walk across the room and other times can walk thru [employer] with cart. No chest pain or dyspnea. No orthopnea or PND. No LH, falls or syncope. No palpitations. No bleeding or TIAs. No edema. Weight down about 50 pounds total over past couple years. Appetite improved. Recently weight stable. PAST MED/SURG HISTORY: Past Medical History: Diagnosis Date AAA (abdominal aortic aneurysm) monitoring Anemia received iron infusions Anxiety xanax prn Arthritis CKD (chronic kidney disease) stage 4, GFR 15-29 ml/min ([facility]) 06/2023 Coronary artery disease patient states 1 artery occuluded, no stents DDD (degenerative disc disease), lumbar Dental disease missing tooth front Diabetes mellitus type 2, controlled ([facility]) Dialysis patient [facility]audio Campoverde [facility] [facility] Essential hypertension 02/23/2018 HL (hearing loss) hearing aid lt ear, deaf right ear Hypothyroidism Mixed hyperlipidemia 02/23/2018 Nicotine dependence 02/23/2018 Pancreatic neoplasm Pancreatitis Peptic ulceration when he was younger Renal cell carcinoma ([facility]) right, left kidney atrophied Skin cancer BCC/SCC Varicella 03/2024 shingles Visual impairment glasses prn Past Surgical History: Procedure Laterality Date BIOPSY MASS 04/01/2023 right kidney BRACHIAL CEPHALIC ARTERIOVENOUS FISTULA Left 01/11/2024 Performed by Zac Lombardi MD at [facility] CATHETERIZ[facility] 2004 2007 [facility] CHOLECYSTECTOMY 2005 COLONOSCOPY 2012 CVC REMOVAL N/A 06/25/2024 Performed by Zac Lombardi MD at [facility] ENDOSCOPIC ULTRASOUND UPPER N/A 04/04/2024 Performed by Polly Reeder MD at [facility] ESOPHAGOGASTRODUODENOSCOPY DIAGNOSTIC N/A 04/04/2024 Performed by Polly Reeder MD at [facility] fistulogram arm/international controller Left 08/14/2024 Performed by Zac Lombardi MD at [facility] NASAL SINUS SURGERY 2003 cleaned out NEPHRECTOMY PARTIAL OPEN(BIOBANK) Right 07/21/2023 Performed by Mary Telles MD at [facility] SKIN BIOPSY Several times STRABISMUS SURGERY 1961 Vascular Invasive Lower Extremity Angiogram with possible intervention Left 10/25/2024 Performed by Zac Lombardi MD at [facility] VASECTOMY WHIPPLE WITH INTRA OPERATIVE ULTRASOUND- BIOBANK N/A 05/09/2024 Performed by Jeffrey Mcfadden MD at [facility] Social History Socioeconomic History Marital status: Spouse [...] on file Food Insecurity: No Food Insecurity (10/25/2024) Hunger Screening Food Insecurity - Worry: Never [...] Instability Housing Instability: Patient unable to answer FAMILY HISTORY: Family History Problem Relation Age [...] black tarry stool. Genitourinary: Negative for hematuria. Musculoskeletal: Positive for gait problem. Skin: Negative for wound. Neurological: Negative for dizziness, syncope, facial asymmetry, speech difficulty, weakness, light-headedness and numbness. Hematological: Does not bruise/bleed easily. [...] Indications: high blood pressure., Disp: , Rfl: famotidine (PEPCID) 20 mg tablet, Take 1 tablet (20 mg total) by mouth in the morning and 1 tablet (20 mg total) before bedtime. Do all this for 180 days., Disp: 180 tablet, Rfl: 1 glimepiride (AMARYL) 2 mg tablet, Take 1 tablet (2 mg total) by mouth every morning before breakfast Indications: type 2 diabetes mellitus., Disp: , Rfl: levothyroxine (SYNTHROID, LEVOTHROID) 50 MCG tablet, Take 1 tablet (50 mcg total) by mouth in the morning. Indications: a condition with low thyroid hormone levels., Disp: , Rfl: dwgguu-uwhbcixp-jxurfgm (CREON) 36,000-114,000- 180,000 unit capsule,delayed release(DR/EC), 2 capsules with Breakfast and Dinner and 1 with snacks, Disp: 200 capsule, Rfl: 11 loperamide (IMODIUM A-D) 2 mg tablet, Take 1 tablet (2 mg total) by mouth 4 (four) times a day as needed for diarrhea., Disp: , Rfl: losartan (COZAAR) 25 mg tablet, Take 1 tablet (25 mg total) by mouth in the morning. 1x per day., Disp: , Rfl: ondansetron ODT (ZOFRAN ODT) 4 mg disintegrating tablet, Dissolve 1 tablet (4 mg total) on tongue every 8 (eight) hours as needed for nausea or vomiting., Disp: 20 tablet, Rfl: 0 sevelamer (RENVELA) 800 mg tablet, Take 1 tablet (800 mg total) by mouth in the morning and 1 tablet (800 mg total) at noon and 1 tablet (800 mg total) in the evening. Take with meals. Indications: renal osteodystrophy with hyperphosphatemia., Disp: , Rfl: ALLERGIES: Allergies as of 11/13/2024 (No Known Allergies) VITALS: There were no vitals filed for this visit. Admit Weight: Wt Readings from Last 3 Encounters: 10/25/24 64.4 kg (142 lb) 10/25/24 64.6 kg (142 lb 6.4 oz) 11/01/24 64.4 kg (142 lb) There is no height or weight [...] present. Cardiovascular: Normal rate and regular rhythm. No extrasystoles are present. Murmur heard. Systolic murmur is present with a grade of 1/6. Pulses: Carotid pulses are 2+ on the right side and 2+ on the left side with bruit. no JVD Edema: RLE none LLE none distant heart soundsno S3 sounds and no S4 sounds Pulmonary/Chest: Effort normal. He has decreased breath sounds. He has no wheezes. [...] Carotid: Right carotid: 2+ Left carotid: 2+ Positive for left carotid bruit. Lymph Right cervical: No supraclavicular and no [...] CBC: Lab Results Component Value Date WBC 10.7 05/17/2024 HGB 11.4 (L) 07/24/2024 HCT 31.1 (L) 05/17/2024 MCV 92 05/17/2024 PLT 305 05/17/2024 CHEM: Lab Results Component Value Date GLU 148 (H) 10/25/2024 CALCIUM 8.5 05/17/2024 SODIUM 135 05/17/2024 K 4.7 08/14/2024 CO2 21 (L) 05/17/2024 BUN 26 10/25/2024 CREATININE 3.2 (H) 10/25/2024 Lipids: Lab Results Component Value Date CHOL [...] ? Vessel with 100% occlusion and collaterals Vas carotid duplex bilateral Result Date: 05/12/2023 [...] of 215 cm/sec. General: Listed diameters are product support sales representative of maximum aortoiliac vessel diameter. [...] stenosis. Left common iliac artery aneurysm. 07/16 partial nephrectomy (renal cancer) 07/16 HD 06/2023 Echo ([facility], [place]): LVEF 55-60% Asymmetric septal hypertrophy Velocities through LVOT normal at rest. Suggestive of hypertrophic cardiomyopathy Normal RV size and function No significant valvular abnormalities Nuc stress Lexiscan Result Date: 11/16/2023 Normal [...] or flutter. No significant pause or block. 05/17 [facility] aorta/iliac duplex complete Result Date: 08/24/2024 Previous: Previous aortoiliac duplex exam performed 05/10/2023: AAA measuring 4.1 cm. >50% bilateral iliac artery stenosis. Right: Plaque and elevated common iliac artery spectral Doppler waveforms with color flow disturbance and PSV velocity of 197 cm/sec. Left: Plaque and elevated common iliac artery spectral Doppler waveforms with color flow disturbance and PSV velocity of 261 cm/sec. General: Listed diameters are product support sales representative of maximum aortoiliac vessel diameter. Aorta: Maximum infrarenal aorta is 4.4 cm, with intraluminal content. Conclusions: BILATERAL: Hemodynamically significant (>50%) common iliac artery stenosis.No evidence of common iliac artery aneurysmAORTA: Aortoiliac aneurysm as noted above - 4.4cm (previously 4.1cm). When compared to previous report no significant changes were noted. Recommendations: Any questions prior to finalization, please call the reading physician during normal business hours at the phone number beside their name. Vas art doppler lwr bilat mult lev/PVR Result Date: 08/23/2024 Right: Essentially normal PVR waveform contour at the thigh level. Mildly abnormal PVR waveform contour at the calf and ankle levels. No Calf waveform augmentation noted. PT OLGA is 0.77; DP OLGA is 0.74. TBI is 0.68. Multiphasic with diastolic flow reversal common femoral, popliteal, PT and DP, CW Doppler waveforms. Left: Essentially normal PVR waveform contour at the thigh level. Moderately abnormal PVR waveform contour at the calf and ankle levels. No Calf waveform augmentation noted. PT OLGA is 0.45; DP OLGA is 0.49. TBI is 0.28. Multiphasic with diastolic flow reversal common femoral, monophasic popliteal, PT and DP, CW Doppler waveforms. Conclusions: RIGHT:OLGA is consistent with mild arterial disease.Multilevel arterial disease (femoropopliteal and tibioperoneal) arterial disease.LEFT:OLGA is consistent with moderate arterial disease.Multilevel arterial disease (femoropopliteal and tibioperoneal) arterial disease. Recommendations: Any questions prior to finalization, please call the reading physician during normal business hours at the phone number beside their name. ASSESSMENT/PLAN/DISCUSSION Coronary artery disease: Stable, with no symptoms. I plan to continue current medications/treatment. On ASA, BB, and statin. Needs to quit smoking. Negative stress 11/15. Hypertension: Blood pressure is currently reasonably controlled. I plan to continue current medications. No additional testing is required at this time. Hyperlipidemia: Managed per PCP. I did not order any further blood work. On statin. Abn ECG: negative stress test 11/15. Abn echo - Hypertrophic Cardiomyopathy: D/W patient and spouse. ? If true or related to WMA from NM and relative dehydration form HD. Unable to do cMRI on ESRD patient. BP control. Follow echoes. Reassess now that fluid balance stabilized (never did yet). Continue BB. Holter benign. AAA / PAD: 4.1 to 4/3 cm. F/W vascular (Dr Lombardi). ESRD - on HD. Follows with renal (Dr Rosario). Preoperative risk: His risk for developing cardiovascular complications with the planned surgery is mild to moderate. for LLE bypass. Testing and records reviewed in [facility] Everywhere and other outside facilities, and are documented under CV database and testing. The note was completed using EMR. Every effort was made to ensure accuracy; however, inadvertent computerized electric train driver errors may be present. Mckinley Winkler MD documented in this encounter [facility] 11-09-2024 Miscellaneous Notes Summary: Zev Crystal Called Pt to pre reg for upcoming appt with Dr lombardi on 11/15. He stated he left Rema a message yesterday wondering if the appointment was still needed since nothing was found on the angio. Pt can be reached at [phone] Patient is being worked up for Surgery-I left him a message yesterday to let them know they did not need to come in if they were fine with just scheduling surgery. documented in this encounter [facility] 11-09-2024 Telephone encounter Note Summary: Zev Crystal Called Pt to pre reg for upcoming appt with Dr lombardi on 11/15. He stated he left Rema a message yesterday wondering if the appointment was still needed since nothing was found on the angio. Pt can be reached at [phone] [facility] 11-09-2024 Telephone encounter Note Patient is being worked up for Surgery-I left him a message yesterday to let them know they did not need to come in if they were fine with just scheduling surgery. [facility] 10-30-2024 History of Present illness Narrative Skin Check Location: Patient requests a skin examination from the waist up Dermatologic history: history of Actinic Keratosis, history of Basal Cell Carcinoma, history of Squamous Cell Carcinoma Last visit: 6 months ago Established patient All pertinent medical history, medications, and allergies [...] are symptomatic or for cosmetic reasons. 4. Capillary angioma Scattered thorpe-red papule(s). The patient was informed that angiomas are benign growths on the the skin. No treatment is necessary. 5. Neoplasm of unspecified behavior of bone, soft tissue, and skin (2) Left lateral neck [place] scaly papule. Lesion biopsy Type of biopsy: tangential Informed [...] details: Photo taken Amount of lidocaine used: 1.0cc Left Thigh - Anterior Pedunculated papule Lesion biopsy Type of biopsy: tangential [...] details: Photo taken Amount of lidocaine used: 0.5 cc 6. Actinic keratosis (3) Head - Anterior (Face), Mid Parietal Scalp (2) Erythematous scaly papules Patient was counseled regarding these sun-induced growths that can develop into squamous cell carcinoma if left untreated. Discussed treatment options, including cryotherapy and topical preparations. It was emphasized that any treated lesions that fail to resolve should be re-evaluated. Patient elected for treatment with Efudex as this has become a chronic issue. Educated on Efudex treatment. Apply to forehead, cheeks, temples twice a day for two weeks. Discussed that treated areas will become red, crusty, and inflamed. If areas become too uncomfortable, patient may use OTC hydrocortisone cream to help decrease irritation and can discontinue treatment early. Sun exposure should be avoided during treatment. Patient instructed to contact office for any questions or issues during treatment. Lesions that fail to resolve once treated area is healed should be re-evaluated in the office. Handout given to patient Cryotherapy to 2 lesions on the scalp Diagnosis: Actinic keratosis Indication: Precancerous Consent: Verbal consent was obtained and risks were discussed, including, but not limited to risks of scarring, darker or 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 Method: Liquid nitrogen was used to treat the lesion(s) with two 5-10 second freeze-thaw cycles Number of lesions treated: 2 Post-procedure instructions: Instructions were given orally and in writing. The office will be contacted if the lesion fails to resolve despite treatment, or if a side effect develops such as abnormal crusting, scabbing, redness or tenderness Cryotherapy, skin lesion - Mid Parietal Scalp (2) fluorouracil (Efudex) 5 % cream - Head - Anterior (Face) Apply to directed areas on the forehead, cheeks, and temples temples twice a day x 14 days. Dispense 30 day supply but only use for 14 days. 7. History of skin cancer Unspecified The patient [...] Visit: 6 months documented in this encounter [facility] 10-25-2024 History of Present illness Narrative HEPATOBILIARY & PANCREAS SURGERY HPI: Chief Complaint: 6 month post op Whipple Zev Crystal presents to the clinic for interval visit. 68-year-old male with history of partial nephrectomy due to renal cell cancer who is on dialysis and also had pancreatic lesion concerning for high-grade dysplasia, possible malignancy a pancreatic neck. He is s/p open central pancreatectomy with transition to standard Whipple, falciform ligament flap, and Prevena application (05/09/2024). Final pathology revealed: IPMN with high-grade dysplasia within head of pancreas, margins not involved. Periportal, peripancreatic, and hepatic artery lymph nodes concerning for B-cell lymphoma on addendum--negative on final testing He did well intraoperatively and postoperatively. Patient also underwent Left arm AV fistulogram due to his End-stage renal disease with malfunctioning left arm AV fistula. 06/26/24 plan He should increase his pancreatic enzymes to [...] visit due to distance that they travel. CT C/A/P 08/16/24 Multiple prominent retroperitoneal lymph nodes, all unchanged from previous examination dated 01/27/2024 Improved but persistent pancreatic ductal dilatation. No acute cardiopulmonary findings. Overall patient is feeling pretty well. He was eating and drinking fine tolerating a regular diet. His bowels are formed he was taking his Creon as prescribed. He denies any abdominal pain, nausea, vomiting. Patient had recent labs No visits with results within 1 Month(s) from this visit. Latest known visit with results is: Admission on 08/14/2024, Discharged on 08/14/2024 Component Date Value Ref Range Status Potassium, Bld 08/14/2024 4.7 3.5 - 5.0 mmol/L Final Bedside glucose 08/14/2024 103 (H) 65 - 99 mg/dL Final ] Most recent images No results found. The following portions of the patient's history were reviewed and updated as appropriate: allergies, current medications, past family history, past medical history, past social history, past surgical history, problem list, and medication reconciliation was completed including current medication and post discharge medication. ROS: Review of Systems Constitutional: Negative for activity change, appetite change, chills, fatigue, fever and unexpected weight change. Respiratory: Negative for cough, chest tightness, shortness of breath and wheezing. Cardiovascular: Negative for chest pain, palpitations and leg swelling. Gastrointestinal: Negative for abdominal distention, abdominal pain, constipation, diarrhea, nausea and vomiting. Skin: Negative for color change. Hematological: Negative for adenopathy. Physical Exam: Blood pressure 120/69, pulse 71, height 175.3 cm (5' 9 ), weight 64.6 kg (142 lb 6.4 oz). Body mass index is 21.03 kg/m . Physical Exam Constitutional: General: He is not in acute distress. HENT: Head: Atraumatic. Cardiovascular: Rate and Rhythm: Regular rhythm. Pulmonary: Breath sounds: Normal breath sounds. Abdominal: General: There is no distension. Palpations: Abdomen is soft. Musculoskeletal: Cervical back: Neck supple. Skin: Coloration: Skin is not jaundiced. Neurological: Mental Status: He is alert and oriented to person, place, and time. Assessment: Jose was seen today for follow-up. 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 Patient was doing well from pancreas standpoint and also being 6 months from having a Whipple procedure. Reviewed proper taking of Creon as well as the occasion when a meal may take more than 2 Creon for example if they go out to eat or have meals that are heavy and dairy which seem to be bothering his stomach most. Oncology as plans to repeat imaging and patient is heading to get an arterialgram done today Would plan to follow up with him in 6 months as his 1 year after being Whipple. Due to distance patient could make this a video visit so that we could check in with each other and continue to monitor his pancreas function. Defer imaging to Oncology Follow up in 6 months Total time spent was 20 minutes: Preparing to see the patient (e.g., review of tests) Obtaining and/or reviewing separately obtained history Performing a medically appropriate examination and/or evaluation Counseling and educating the patient/family/caregiver Ordering medications, tests, or procedures Referring and communicating with other health animal care service worker (not separately reported) Independently interpreting results (not separately reported) and communicating results to the patient/family/caregiver Care coordination (not separately reported) FLAVIA Sierra 10/25/24 [id number] documented in this encounter [employer] 10-25-2024 Instructions Lauren Canchola MA - 10/25/2024 10:00 AM EDT Are You Ready To Kick The Habit? Free Tobacco Cessation Resources [facility] provide all employees with free tobacco cessation services that include: Counseling to understand nicotine addiction Education about medications that can help you successfully quit Assistance with developing a plan to quit Call to set up an individual appointment or find out when group classes will be held: [facility]: [phone] [facility]: [phone] [facility]: [phone] [facility]: [phone] Quit Smoking Action Plan and Resources [facility] offers an eight-week, online smoking cessation plan to all [facility] employees, regardless of whether [employer] is your medical insurance provider. Go to [email or web address] and click the Health Risk Assessment and Resources link to get started. In the [employer] menu, click Action Plans instead of Health Risk Assessment to access the Quit Smoking Action Plan. Additional smoking cessation resources are also available to all [facility] employees on the [employer] web page at www.[email or web address]quits [email or web address]. [employer] Tobacco Cessation Program If [employer] is your medical insurance provider, there are more free resources available to you, including: No copays or deductibles on local tobacco cessation counseling services to help you quit Prescription assistance for tobacco cessation medications to help you quit For details about the tobacco cessation program available to [employer] members, go to www.[employer] (Search: Tobacco Cessation Program). [place] Tobacco Quit Line 9-642-OVCI-NOW ( ) is a toll-free, telephonic service that helps [place] residents quit smoking and using tobacco. It is staffed by experts who tailor a quit plan for you and provide you with advice. [place] Tobacco Quit Line 0-443-PSBO-NOW ( ) is a toll-free, telephonic service that helps [place] residents quit smoking and using tobacco. It is staffed by experts who tailor a quit plan for you and provide you with advice. Two weeks of nicotine replacement therapy may be provided at no charge, if needed. Additional Resources These national organizations also offer free information and resources to help you quit tobacco: [place] [employer]--www.cancer.org/healthy/s tayawayfromtobacco [place] [employer]--www.heart.org (Search: Quit Smoking) Centers for Disease Control and Prevention--www.cdc.gov/tobacco [place] [employer]--www.lungusa.org documented in this encounter [employer] 10-15-2024 Note Presentation for Ana longoria Evaluation Date: Committee Review Date: 10/15/2024 Organ being evaluated for: Kidney Transplant Phase: Referral Transplant Status: Deferred Referring Physician: Kevin Rosario Primary Diagnosis: Secondary Diagnosis: Committee Review Decision: Declined Committee Discussion Details: The candidate's evaluation was presented and discussed at the Kidney Multidisciplinary Selection Conference. After review of the candidate's diagnosis and the evaluations of the multidisciplinary team members, it was the consensus of the Selection Committee that the candidate does not meet Kidney Selection Criteria and is Declined for Kidney transplant. Fernanda reviewed the patient with committee. Patient is currently smoking and has deferred his case for that reason, however, there are concerns regarding his candidacy due 69-year-old with stable 4.2cm AAA, multiple prominent retroperitoneal lymph nodes stable from 01/2024-07/2024, history of IPMN, idiopathic acute pancreatitis and pancreatic adenocarcinoma s/p Whipple in April 2024 (lymph node pathology suspicious for B-Cell lymphoma which was found negative later on, but pancreatic head was positive for IPMN high grade dysplasia neoplasm), history of right renal mass RCC treated with partial nephrectomy 06/2023, and claudication/PVD. Committee discussed the patient and determined that the patient is at an increased risk of developing cancer post-transplant. Patient to see oncology. Committee determined that the patient is not a candidate for transplant due to continuing to smoke, multiple developing cancers and multiple medical co-morbidities by a majority vote. I attest to the committee's decision for this patient. 10/18/2024 Ramos Rasmussen MD [facility] 08-23-2024 History of Present illness Narrative CHIEF COMPLAINT: Chief Complaint Patient presents with Renal cell carcinoma (CMS-HCC) Infrarenal abdominal aortic HISTORY OF PRESENT ILLNESS: [...] a condition with low thyroid hormone levels. onkrwg-bqcafotf-aakiyyk (CREON) 36,000-114,000- 180,000 unit capsule,delayed release(DR/EC) 2 [...] was seen today for renal cell carcinoma ([facility]) infrarenal abdominal aortic. Diagnoses and all orders for this visit: Claudication ([facility]) PAD (peripheral artery disease) ([facility]) Chronic kidney disease, unspecified CKD stage Renal cell carcinoma ([facility]) Aneurysm of infrarenal abdominal aorta, unspecified whether ruptured ([facility]) CLL (chronic lymphocytic leukemia) ([facility]) Hypertrophic cardiomyopathy ([facility]) I reviewed the patient ABIs and arterial [...] the left side. documented in this encounter [employer] 08-17-2024 Miscellaneous Notes patient called the office stating that he is having pain in left leg; been going on for a couple of months now; testing and follow up isn't until september; patient states that he has been active; pain only subsides when resting; has a trip coming up in August; please advise documented in this encounter [employer] 08-17-2024 Telephone encounter Note patient called the office stating that he is having pain in left leg; been going on for a couple of months now; testing and follow up isn't until september; patient states that he has been active; pain only subsides when resting; has a trip coming up in August; please advise [employer] 06-26-2024 History of Present illness Narrative HEPATOBILIARY [...] for this visit: Exocrine pancreatic insufficiency - kcqybo-[id number]-divwplv (CREON) 36,000-114,000- 180,000 unit capsule,delayed release(DR/EC); 2 [...] [place] 06/26/24 1448 documented in this encounter [employer] 05-30-2024 History of Present illness Narrative HEPATOBILIARY [...] [place] 05/30/24 1617 documented in this encounter [facility] 05-25-2024 History of Present illness Narrative Seen by Dr. Gillette today for consult b cell lymphoma. Per Dr Gillette: CT CHEST with contrast 07/2024 (combined with CT abd). F/U in 10/2024, cbc, cmp CT chest/abd ordered. Instructed to have labs done prior to follow up in October. Pt v.u documented in this encounter [facility] 05-25-2024 History of Present illness Narrative Images from the original note were not included. [facility] 05/25/24 Zev Crystal is a 68 y.o. [...] further evaluation. Oncology History Renal cell carcinoma ([facility]) 05/11/2023 Initial Diagnosis Renal cell carcinoma ([facility]) 05/25/2024 - Cancer Staged Staging form: Kidney, AJCC 8th Edition - Clinical: Stage I (cT1a, cN0, cM0) - Signed by Stanley Gillette MD on 05/25/2024 Past Medical History: Diagnosis Date AAA (abdominal aortic aneurysm) ([facility]) monitoring Anemia received iron infusions Anxiety xanax prn Arthritis CKD (chronic kidney disease) stage 4, GFR 15-29 ml/min ([facility]) 06/2023 Coronary artery disease patient states 1 artery occuluded, no stents DDD (degenerative disc disease), lumbar Dental disease missing tooth front Diabetes mellitus type 2, controlled ([facility]) Dialysis patient ([facility]) [facility] Essential hypertension 02/23/2018 HL (hearing loss) hearing aid lt ear, deaf right ear Hypothyroidism Mixed hyperlipidemia 02/23/2018 Nicotine dependence 02/23/2018 Pancreatic neoplasm Pancreatitis Peptic ulceration when he was younger Renal cell carcinoma ([facility]) right, left kidney atrophied Skin cancer BCC/SCC Varicella 03/2024 shingles Visual impairment glasses prn Past Surgical History: Procedure Laterality Date BIOPSY MASS 04/01/2023 right kidney BRACHIAL CEPHALIC ARTERIOVENOUS FISTULA Left 01/11/2024 Performed by Zac Lombardi MD at [facility] CARDIAC CATHETERIZATION 2004 2007 [facility] CHOLECYSTECTOMY 2005 COLONOSCOPY 2012 ENDOSCOPIC ULTRASOUND UPPER N/A 04/04/2024 Performed by Polly Reeder MD at [facility] ESOPHAGOGASTRODUODENOSCOPY DIAGNOSTIC N/A 04/04/2024 Performed by Polly Reeder MD at [facility] NASAL SINUS SURGERY 2004 cleaned out NEPHRECTOMY PARTIAL OPEN(BIOBANK) Right 07/21/2023 Performed by Mary Telles MD at [facility] SKIN BIOPSY Several times STRABISMUS SURGERY 1961 VASECTOMY WHIPPLE WITH INTRA OPERATIVE ULTRASOUND- BIOBANK N/A 05/09/2024 Performed by Jeffrey Mcfadden MD at [facility] Family History Problem Relation Age of Onset [...] Narrative Lives with . Worked at a [employer]. Has a dog in the home. Social [...] stomach with tip not included in the sjhlm-en-vawo. A tunneled right jugular dialysis catheter tip [...] lymph nodes, unspecified B-cell lymphoma type ([facility]) Impression: Stage I clear cell RCC in [...] to ensure the accuracy of this automated electric train driver, some errors in electric train driver may have occurred. CC: Patient Care Team: Dylan Montilla MD as PCP - General (Family Medicine) Mary Telles MD as Referring Physician (Urology) Zac Lombardi MD as Surgeon (Vascular Surgery) Kaveh Pearson MD as Referring Physician (Nephrology) Jeffrey Mcfadden MD as Consulting Physician (General Surgery) Mckinley Winkler MD as Consulting Physician (Cardiology) PCP:DYLAN MONTILLA Referring MD: Amanda Randall P* [facility] Instructions Stanley Gillette MD - 05/25/2024 9:[address] CHEST with contrast 07/2024 (combined with CT abd). F/U in 10/2024, cbc, cmp documented in this encounter [facility] [employer] 05-22-2024 History of Present illness Narrative HEPATOBILIARY [...] Final bile duct margin: Not involved. Addendum ([facility]) Date Reported: 05/21/2024 2. Hepatic artery lymph [...] lymph nodes, unspecified B-cell lymphoma type ([facility]) - Flow cytometry blood only; Future - [facility] [place], [place]; Future Plan: Diet as tolerated, encouraged protein supplementation Samples of Creon [id number] sent with patient. Will try 1 capsule [...] PA-C 05/22/24 1723 documented in this encounter [facility] 05-21-2024 Miscellaneous Notes Patient's stated patient's drain site that is stitched has been leaking and they are trying to keep a dry dressing on and changing it frequently. Per Yung Wolfe patient to be seen Tuesday or Tuesday. Appointment mad for 05/22/24 at 3:00PM documented in this encounter [facility] 05-21-2024 Telephone encounter Note Patient's stated patient's drain site that is stitched has been leaking and they are trying to keep a dry dressing on and changing it frequently. Per Yung Wolfe patient to be seen Tuesday or Tuesday. Appointment mad for 05/22/24 at 3:00PM [facility] 05-17-2024 Miscellaneous Notes DISCHARGE PLANNING NOTE [facility] Ren[facility] (P# [phone] ; F# [phone]) via efax for Renal [facility] (P# [phone] ; F# [phone]) DISCHARGE PLANNING NOTE Patient discharged home with no needs. [facility] tasked to send CRF and updated HD Flowsheets to renal in [place]. Video Manager spoke with [facility] renal to inform them patient would be [...] at the bedside 7. Instruct patient/ patient product support sales representative about use of safety devices 8. Include patient/ patient product support sales representative in decisions related to safety Outcome: Progressing Note: Evaluation of progress towards goal: up with steady gait, calls out appropriately Problem: Pain Goal: Patient goal is pain score less than 4, able to rest, and participant in treatment plan as appropriate Description: INTERVENTIONS: 1. Encourage patient or legal product support sales representative to report early pain and [...] per policy 9. Teach patient or legal product support sales representative interventions for comforting Outcome: Progressing [...] at the bedside 7. Instruct patient/ patient product support sales representative about use of safety devices 8. Include patient/ patient product support sales representative in decisions related to safety [...] with self care, resuming outpatient HD at [facility] in [place]. Video Manager will continue to follow for any discharge [...] per early mobility guidelines Equipment: FARHAT drain Telemetry/Rn Document Improvement: Yes Oxygen Used: Room air Other: Low [...] Outcomes Date/Time User Outcome 05/16/24 1029 Shannon Lozoya, OTR/L Adequate for Discharge Goal Note filed on 05/16/24 1029 by Shannon Lozoya OTR/L Evaluation of progress towards goal: Problem: Bathing LB Dates: Start: 05/11/24 Disciplines: OT Goal: Patient will perform bathing LB with Modified [place] Dates: Start: 05/11/24 Expected End: 05/25/24 Disciplines: OT Problem: Bathing UB Dates: Start: 05/11/24 Disciplines: OT Goal: Patient will perform bathing UB with Modified [place] Dates: Start: 05/11/24 Expected End: 05/25/24 Disciplines: OT Problem: Bed Mobility Dates: Start: 05/11/24 Disciplines: OT Goal: Patient will perform bed mobility with Modified [place] Dates: Start: 05/11/24 Expected End: 05/25/24 Description: [...] Patient will perform dressing LB with Modified [place] Dates: Start: 05/11/24 Expected End: 05/25/24 Disciplines: OT Problem: Dressing UB Dates: Start: 05/11/24 Disciplines: OT Goal: Patient will perform dressing UB with Modified [place] Dates: Start: 05/11/24 Expected End: 05/25/24 Disciplines: OT Problem: Functional Mobility Dates: Start: 05/11/24 Disciplines: OT Goal: Patient will perform functional mobility Independently Dates: Start: 05/11/24 Expected End: 05/25/24 Description: Goal Description: Disciplines: OT Outcomes Date/Time User Outcome 05/16/24 1029 Shannon Lozoya OTR/L Adequate for Discharge Goal Note filed on 05/16/24 1029 by KATERIN Leonardo/Gracie Evaluation of progress towards goal: Problem: Standing [...] Patient will perform toilet transfers with Modified [place] Dates: Start: 05/11/24 Expected End: 05/25/24 Description: [...] 6 Clicks: Basic Mobility Raw Score: 24 [facility] G Code Modifier: CH Therapy Plan No [...] History: Diagnosis Date AAA (abdominal aortic aneurysm) ([facility]) monitoring Anemia received iron infusions Anxiety xanax prn Arthritis CKD (chronic kidney disease) stage 4, GFR 15-29 ml/min ([facility]) 06/2023 Coronary artery disease patient states 1 artery occuluded, no stents DDD (degenerative disc disease), lumbar Dental disease missing tooth front Diabetes mellitus type 2, controlled ([facility]) Dialysis patient ([facility]) [facility] Essential hypertension 02/23/2018 HL (hearing loss) hearing aid lt ear, deaf right ear Hypothyroidism Mixed hyperlipidemia 02/23/2018 Nicotine dependence 02/23/2018 Pancreatic neoplasm Pancreatitis Peptic ulceration when he was younger Renal cell carcinoma ([facility]) right, left kidney atrophied Skin cancer BCC/SCC Varicella 03/2024 shingles Visual impairment glasses prn Past Surgical History: Procedure Laterality Date BIOPSY MASS 04/01/2023 right kidney BRACHIAL CEPHALIC ARTERIOVENOUS FISTULA Left 01/11/2024 Performed by Zac Lombardi MD at [facility] CARDIAC CATHETERIZATION 2004 2007 [facility] CHOLECYSTECTOMY 2006 COLONOSCOPY 2012 ENDOSCOPIC ULTRASOUND UPPER N/A 04/04/2024 Performed by Polly Reeder MD at [facility] ESOPHAGOGASTRODUODENOSCOPY DIAGNOSTIC N/A 04/04/2024 Performed by Polly Reeder MD at [facility] NASAL SINUS SURGERY 2003 cleaned out NEPHRECTOMY PARTIAL OPEN(BIOBANK) Right 07/21/2023 Performed by Mary Telles MD at [facility] SKIN BIOPSY Several times STRABISMUS SURGERY 1961 VASECTOMY WHIPPLE WITH INTRA OPERATIVE ULTRASOUND- BIOBANK N/A 05/09/2024 Performed by Jeffrey Mcfadden MD at [facility] Precautions Activity: early mobility guidelines 05/09/2024, pass/independent per sfaety screen 05/15/2024 Equipment: FARHAT drain Telemetry/Rn Document Improvement: Yes Other: low fall risk, h/o AAA; [...] Description: INTERVENTIONS: 1. Encourage patient or legal product support sales representative to report early pain and [...] per policy 9. Teach patient or legal product support sales representative interventions for comforting 05/15/20242204 by [...] at the bedside 7. Instruct patient/ patient product support sales representative about use of safety devices 8. Include patient/ patient product support sales representative in decisions related to safety [...] supplement as ordered 13. Collaborate with clinical development coordinator 14. Include patient/ patient's product support sales representative in decisions related to nutrition [...] supplement as ordered 13. Collaborate with clinical development coordinator 14. Include patient/ patient's product support sales representative in decisions related to nutrition [...] towards goal: pt has midline with connie; HONEY LIQUEFIER , FARHAT drain Problem: Metabolic/Fluid and Electrolytes - Adult Goal: Glucose maintained within prescribed range Description: Patient's goal is: INTERVENTIONS 1. Monitor Blood Glucose as ordered 2. Assess for signs and symptoms of hyperglycemia and hypoglycemia 3. Administer ordered medications to maintain glucose within target range 4. Assess barriers to adequate nutritional intake and initiate nutrition consult as needed 5. Instruct patient/ legal product support sales representative on self management of diabetes and initiate consult as needed Outcome: Progressing Note: Evaluation of progress towards goal: pt BS Q4 hrs, insulin ordered and given per sliding scale Occupational Therapy (P) CANCEL - Deferred (pt just returned from HD and reports too fatigued to participate in OT at this time-cont poc as able.) Cosigned by AUREA Robison at 05/16/2024 8:00 AM EDT Associated attestation - Agnes George OTR/L - 05/16/2024 8:00 AM EDT I have reviewed and agree with this note and education documentation for this visit. DISCHARGE PLANNING NOTE Per RN during discharge transition rounds, barriers to discharge are: FARHAT, IV reglan, return of bowel function, HD. Discharge Plan: Patient will discharge home with no needs, resuming outpatient HD at renal [place]. Video Manager will continue to follow for any discharge needs. - Perla Goodson RN 05/15/24 12:03 PM DISCHARGE PLANNING NOTE Referral sent to [facility] (P# [phone] ; F# [phone]) via efax Problem: Pain Goal: Patient goal is pain score less than 4, able to rest, and participant in treatment plan as appropriate Description: INTERVENTIONS: 1. Encourage patient or legal product support sales representative to report early pain and [...] per policy 9. Teach patient or legal product support sales representative interventions for comforting Outcome: Progressing [...] at the bedside 7. Instruct patient/ patient product support sales representative about use of safety devices 8. Include patient/ patient product support sales representative in decisions related to safety [...] hygiene technique 7. Identify and instruct patient/patient product support sales representative in use of appropriate isolation precautions for identified infection/symptoms 8. Provide and discuss with patient/patient product support sales representative on educational MDRO sheet 9. Encourage and monitor nutritional status daily and consult development coordinator if indicated 10. Implement neutropenic guidelines as needed 11. Review exposure to history of communicable disease and recent travel history on admission 12. Encourage annual influenza vaccine 13. Encourage pneumonia vaccine Outcome: Progressing Note: Evaluation of progress towards goal: no s/s infection Problem: Knowledge Deficit Goal: Patient/patient product support sales representative demonstrates understanding of disease process, [...] Description: INTERVENTIONS: 1. Encourage patient or legal product support sales representative to report early pain and [...] per policy 9. Teach patient or legal product support sales representative interventions for comforting Outcome: Progressing Note: Evaluation of progress towards goal: patient assessed for pain with hourly rounding and as needed. Will treat any pain as needed as ordered. Problem: Pain Goal: Patient goal is pain score less than 4, able to rest, and participant in treatment plan as appropriate Description: INTERVENTIONS: 1. Encourage patient or legal product support sales representative to report early pain and [...] per policy 9. Teach patient or legal product support sales representative interventions for comforting Outcome: Progressing [...] at the bedside 7. Instruct patient/ patient product support sales representative about use of safety devices 8. Include patient/ patient product support sales representative in decisions related to safety [...] hygiene technique 7. Identify and instruct patient/patient product support sales representative in use of appropriate isolation precautions for identified infection/symptoms 8. Provide and discuss with patient/patient product support sales representative on educational MDRO sheet 9. Encourage and monitor nutritional status daily and consult development coordinator if indicated 10. Implement neutropenic guidelines as [...] monitor closely. Problem: Knowledge Deficit Goal: Patient/patient product support sales representative demonstrates understanding of disease process, [...] supplement as ordered 13. Collaborate with clinical development coordinator 14. Include patient/ patient's product support sales representative in decisions related to nutrition [...] be free from fall Description: Interventions: 1. [place] to environment 2. Hourly rounds addressing the [...] non-skid footwear 11. Teach patient and patient product support sales representative to maintain environment for safety [...] (cane, walker) within reach 19. Request patient product support sales representative bring adaptive equipment/mobility aids from home or obtain and provide as needed 20. Consult pharmacy regarding effects of med's affecting mobility, cognition, and alternatives 21. Obtain physician order for PT if risk factors associated with mobility are present 22. Obtain physician order for OT as appropriate 23. Utilize diversional activities 24. Educate patient and patient product support sales representative how to maintain a safe environment during visitation times (notify nurse prior to leaving bedside) 25. Consider appropriateness of medical or non-medical operations supervisor 26. Set up voiding schedule as appropriate [...] Description: INTERVENTIONS: 1. Encourage patient or legal product support sales representative to report early pain and [...] per policy 9. Teach patient or legal product support sales representative interventions for comforting Outcome: Progressing [...] at the bedside 7. Instruct patient/ patient product support sales representative about use of safety devices 8. Include patient/ patient product support sales representative in decisions related to safety [...] hygiene technique 7. Identify and instruct patient/patient product support sales representative in use of appropriate isolation precautions for identified infection/symptoms 8. Provide and discuss with patient/patient product support sales representative on educational MDRO sheet 9. Encourage and monitor nutritional status daily and consult development coordinator if indicated 10. Implement neutropenic guidelines as [...] Description: INTERVENTIONS: 1. Encourage patient or legal product support sales representative to report early pain and [...] per policy 9. Teach patient or legal product support sales representative interventions for comforting Outcome: Progressing [...] at the bedside 7. Instruct patient/ patient product support sales representative about use of safety devices 8. Include patient/ patient product support sales representative in decisions related to safety [...] hygiene technique 7. Identify and instruct patient/patient product support sales representative in use of appropriate isolation precautions for identified infection/symptoms 8. Provide and discuss with patient/patient product support sales representative on educational MDRO sheet 9. Encourage and monitor nutritional status daily and consult development coordinator if indicated 10. Implement neutropenic guidelines as [...] monitor closely. Problem: Knowledge Deficit Goal: Patient/patient product support sales representative demonstrates understanding of disease process, [...] supplement as ordered 13. Collaborate with clinical development coordinator 14. Include patient/ patient's product support sales representative in decisions related to nutrition [...] be free from fall Description: Interventions: 1. [place] to environment 2. Hourly rounds addressing the [...] non-skid footwear 11. Teach patient and patient product support sales representative to maintain environment for safety [...] (cane, walker) within reach 19. Request patient product support sales representative bring adaptive equipment/mobility aids from home or obtain and provide as needed 20. Consult pharmacy regarding effects of med's affecting mobility, cognition, and alternatives 21. Obtain physician order for PT if risk factors associated with mobility are present 22. Obtain physician order for OT as appropriate 23. Utilize diversional activities 24. Educate patient and patient product support sales representative how to maintain a safe environment during visitation times (notify nurse prior to leaving bedside) 25. Consider appropriateness of medical or non-medical operations supervisor 26. Set up voiding schedule as appropriate [...] Description: INTERVENTIONS: 1. Encourage patient or legal product support sales representative to report early pain and [...] per policy 9. Teach patient or legal product support sales representative interventions for comforting Outcome: Progressing [...] at the bedside 7. Instruct patient/ patient product support sales representative about use of safety devices 8. Include patient/ patient product support sales representative in decisions related to safety [...] hygiene technique 7. Identify and instruct patient/patient product support sales representative in use of appropriate isolation precautions for identified infection/symptoms 8. Provide and discuss with patient/patient product support sales representative on educational MDRO sheet 9. Encourage and monitor nutritional status daily and consult development coordinator if indicated 10. Implement neutropenic guidelines as [...] monitor closely. Problem: Knowledge Deficit Goal: Patient/patient product support sales representative demonstrates understanding of disease process, [...] supplement as ordered 13. Collaborate with clinical development coordinator 14. Include patient/ patient's product support sales representative in decisions related to nutrition [...] be free from fall Description: Interventions: 1. [place] to environment 2. Hourly rounds addressing the [...] non-skid footwear 11. Teach patient and patient product support sales representative to maintain environment for safety [...] (cane, walker) within reach 19. Request patient product support sales representative bring adaptive equipment/mobility aids from home or obtain and provide as needed 20. Consult pharmacy regarding effects of med's affecting mobility, cognition, and alternatives 21. Obtain physician order for PT if risk factors associated with mobility are present 22. Obtain physician order for OT as appropriate 23. Utilize diversional activities 24. Educate patient and patient product support sales representative how to maintain a safe environment during visitation times (notify nurse prior to leaving bedside) 25. Consider appropriateness of medical or non-medical operations supervisor 26. Set up voiding schedule as appropriate (every 2 hours) Outcome: Progressing Note: Evaluation of progress towards goal: Appropriate fall and safety interventions taken related to patient's fall risk score. No falls or injury at this time Images from the original note were not included. DISCHARGE PLANNING NOTE Mercantile Agent met with patient, introduced self, and explained [...] History: Diagnosis Date AAA (abdominal aortic aneurysm) ([facility]) monitoring Anemia received iron infusions Anxiety xanax prn Arthritis CKD (chronic kidney disease) stage 4, GFR 15-29 ml/min ([facility]) 06/2023 Coronary artery disease patient states 1 artery occuluded, no stents DDD (degenerative disc disease), lumbar Dental disease missing tooth front Diabetes mellitus type 2, controlled ([facility]) Dialysis patient ([facility]) [facility] Essential hypertension 02/23/2018 HL (hearing loss) hearing aid lt ear, deaf right ear Hypothyroidism Mixed hyperlipidemia 02/23/2018 Nicotine dependence 02/23/2018 Pancreatic neoplasm Pancreatitis Peptic ulceration when he was younger Renal cell carcinoma ([facility]) right, left kidney atrophied Skin cancer BCC/SCC Varicella 03/2024 shingles Visual impairment glasses prn Prior to admission patient was living with spouse/significant other and self care. Medical equipment patient used prior to admission includes: Shower Bars. Patient denies need for transportation/ food/ prescription medication assistance resources. PCP: DYLAN MONTILLA MD Pharmacy:[facility] PCP and pharmacy confirmed with patient. CN [...] Description: INTERVENTIONS: 1. Encourage patient or legal product support sales representative to report early pain and [...] per policy 9. Teach patient or legal product support sales representative interventions for comforting Outcome: Progressing [...] at the bedside 7. Instruct patient/ patient product support sales representative about use of safety devices 8. Include patient/ patient product support sales representative in decisions related to safety [...] hygiene technique 7. Identify and instruct patient/patient product support sales representative in use of appropriate isolation precautions for identified infection/symptoms 8. Provide and discuss with patient/patient product support sales representative on educational MDRO sheet 9. Encourage and monitor nutritional status daily and consult development coordinator if indicated 10. 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 Pt went to [facility] and pathologist determined gut contamination. [...] History: Diagnosis Date AAA (abdominal aortic aneurysm) ([facility]) monitoring Anemia received iron infusions Anxiety xanax prn Arthritis CKD (chronic kidney disease) stage 4, GFR 15-29 ml/min ([facility]) 06/2023 Coronary artery disease patient states 1 artery occuluded, no stents DDD (degenerative disc disease), lumbar Dental disease missing tooth front Diabetes mellitus type 2, controlled ([facility]) Dialysis patient ([facility]) [facility] Essential hypertension 02/23/2018 HL (hearing loss) hearing aid lt ear, deaf right ear Hypothyroidism Mixed hyperlipidemia 02/23/2018 Nicotine dependence 02/23/2018 Pancreatic neoplasm Pancreatitis Peptic ulceration when he was younger Renal cell carcinoma ([facility]) right, left kidney atrophied Skin cancer BCC/SCC Varicella 03/2024 shingles Visual impairment glasses prn Past Surgical History: Procedure Laterality Date BIOPSY MASS 04/01/2023 right kidney BRACHIAL CEPHALIC ARTERIOVENOUS FISTULA Left 01/11/2024 Performed by Zac Lombardi MD at [facility] CARDIAC CATHETERIZATION 2004 2007 [facility] CHOLECYSTECTOMY 2005 COLONOSCOPY 2012 ENDOSCOPIC ULTRASOUND UPPER N/A 04/04/2024 Performed by Polly Reeder MD at [facility] ESOPHAGOGASTRODUODENOSCOPY DIAGNOSTIC N/A 04/04/2024 Performed by Polly Reeder MD at [facility] NASAL SINUS SURGERY 2004 cleaned out NEPHRECTOMY PARTIAL OPEN(BIOBANK) Right 07/21/2023 Performed by Mary Telles MD at [facility] SKIN BIOPSY Several times STRABISMUS SURGERY 1961 VASECTOMY WHIPPLE WITH INTRA OPERATIVE ULTRASOUND- BIOBANK N/A 05/09/2024 Performed by Jeffrey Mcfadden MD at [facility] Therapy Plan Need for skilled Occupational [...] early mobility guidelines, yes Equipment: Gait belt Telemetry/Rn Document Improvement: Yes Oxygen Order : Spo2 90% or [...] not work. Son lives close and works night time babysitter) Developmentally Appropriate: Yes Level of Mobility: Independent [...] Patient will perform bathing LB with Modified [place] Dates: Start: 05/11/24 Expected End: 05/25/24 Disciplines: OT Problem: Bathing UB Dates: Start: 05/11/24 Disciplines: OT Goal: Patient will perform bathing UB with Modified [place] Dates: Start: 05/11/24 Expected End: 05/25/24 Disciplines: OT Problem: Bed Mobility Dates: Start: 05/11/24 Disciplines: OT Goal: Patient will perform bed mobility with Modified [place] Dates: Start: 05/11/24 Expected End: 05/25/24 Description: Pt will perform bed mobility w/ modified independence and AD as needed 100% of the time. Disciplines: OT Problem: Dressing LB Dates: Start: 05/11/24 Disciplines: OT Goal: Patient will perform dressing LB with Modified [place] Dates: Start: 05/11/24 Expected End: 05/25/24 Disciplines: OT Problem: Dressing UB Dates: Start: 05/11/24 Disciplines: OT Goal: Patient will perform dressing UB with Modified [place] Dates: Start: 05/11/24 Expected End: 05/25/24 Disciplines: OT Problem: Functional Mobility Dates: Start: 05/11/24 Disciplines: OT Goal: Patient will perform functional mobility with Modified [place] Dates: Start: 05/11/24 Expected End: 05/25/24 Description: [...] Patient will perform toilet transfers with Modified [place] Dates: Start: 05/11/24 Expected End: 05/25/24 Description: Pt will perform toilet transfers with modified independence and AD as needed 100% of the time. Disciplines: OT Problem: Transfers Dates: Start: 05/11/24 Disciplines: OT Goal: Patient will perform transfers with Modified [place] Dates: Start: 05/11/24 Expected End: 05/25/24 Description: Pt will perform transfers with modified independence and AD as needed 100% of the time. Disciplines: OT Occupational Therapy Care Plan (Resolved) There are no resolved problems. Principal Problem: Pancreatic neoplasm Cosigned by Agnes George OTR/L at 05/11/2024 10:59 AM EDT Associated attestation - Agnes George OTR/Gracie - 05/11/2024 10:59 AM EDT I have reviewed and agree with this note and education documentation for this visit. Problem: Pain Goal: Patient goal is pain score less than 4, able to rest, and participant in treatment plan as appropriate Description: INTERVENTIONS: 1. Encourage patient or legal product support sales representative to report early pain and [...] per policy 9. Teach patient or legal product support sales representative interventions for comforting Outcome: Progressing [...] at the bedside 7. Instruct patient/ patient product support sales representative about use of safety devices 8. Include patient/ patient product support sales representative in decisions related to safety [...] concern that pt may be having an NM. Occupational Therapy CANCEL - Deferred (per RN [...] No further recommendations, please call with concerns. Lianna Casas APRN-UNDERWRITING SUPPORT MANAGER 05/10/24 0656 Problem: Pain Goal: Patient goal is pain score less than 4, able to rest, and participant in treatment plan as appropriate Description: INTERVENTIONS: 1. Encourage patient or legal product support sales representative to report early pain and [...] per policy 9. Teach patient or legal product support sales representative interventions for comforting Outcome: Progressing [...] at the bedside 7. Instruct patient/ patient product support sales representative about use of safety devices 8. Include patient/ patient product support sales representative in decisions related to safety [...] hygiene technique 7. Identify and instruct patient/patient product support sales representative in use of appropriate isolation precautions for identified infection/symptoms 8. Provide and discuss with patient/patient product support sales representative on educational MDRO sheet 9. Encourage and monitor nutritional status daily and consult development coordinator if indicated 10. Implement neutropenic guidelines as [...] as per orders. Surgeon: Jeffrey Mcfadden MD Rf Microwave Engineer : Kylie Wade PA-C no appropriate level [...] cm in diameter. We used 4 0 [place]-Amadeo for running posterior wall made a small enterotomy the Bovie and then used 5 0 PDS in a running fashion x2 to perform the duct to mucosa anastomosis. A 2nd 4 0 [place]-Amadeo was used in a running fashion to [...] to help with this case and my compounding assistant aided with critical exposure during the case, utilization of LigaSure and stapler as directed, cutting of suture, wound closure. ANESTHESIA REVIEW OR 05/09/24 WHIPPLE: AAA, ESRD-dialysis, CAD, DM, no cp or sob. Cardiac clearance 04/11/24 (in letters tab), cardiac note 01/02/24, stress 11/16/23, echo 07/12/23, EKG's. Reviewed and accepted by Dr. Ayala, no further orders or requests. documented in this encounter [facility] 05-17-2024 Hospital course Narrative Discharge Summary Admitting Provider: Jeffrey Mcfadden MD Discharge Provider: Jeffrey Mcfadden MD Primary Care Physician: DYLAN MONTILLA MD [phone] Admission Date: 05/09/2024 Discharge Date: 05/17/2024 Admission [...] plan as written. documented in this encounter [facility] 05-17-2024 Procedure note Associated Ord er(s): HEMODIALYSIS [...] did not want to finish tx. Per Uf in minimum and 250ml NS bolus [...] RN, Dialysis 05/10/24 documented in this encounter [employer] 05-16-2024 History of Present illness Narrative HEPATOBILIARY, [...] Results from last 7 days Lab Units 05/16/2455805/15/2462905/14/24 031 SODIUM mmol/L 135 137 138 POTASSIUM mmol/L 4.6 4.4 4.1 CHLORIDE mmol/L 97* 102 103 CO2 mmol/L 20* 24 23 BUN mg/dL 37* 36* 25 CREATININE mg/dL 3.32* 2.86* 2.69* CALCIUM mg/dL 8.8 8.7 8.5 PHOSPHORUS mg/dL 5.3* 4.0 3.7 MAGNESIUM mg/dL 2.2 2.2 2.2 Results from last 7 days Lab Units 05/16/2455805/15/2462905/14/24 031 WBC X10E9/L 11.5* 8.3 8.0 HEMOGLOBIN g/dL 11.7* 10.3* 10.2* HEMATOCRIT % 33.1* 29.5* 29.0* PLATELETS X10E9/L 313 228 200 Results from last 7 days Lab Units 05/16/2455805/15/2462905/14/24 0314 MAGNESIUM mg/dL 2.2 2.2 2.2 Lab Results Component Value Date CALCIUM 8.8 05/16/2024 Lab Results Component Value Date IRON 47 (L) 05/15/2024 TIBC 234 (L) 05/15/2024 FERRITIN 652 (H) 05/15/2024 Imaging Studies: PROBLEM LIST End-stage renal disease on hemodialysis Tuesday dialyzing at [facility]. End-stage renal disease secondary to postoperative [...] every Tuesday and Tuesday. Usually dialyzes at [facility] [place] in [facility]. Hemodialysis is planned on Pancreatic adenocarcinoma [...] Nephrology perspective WILLARD DE LA PAZ MD,PhD. [facility] ANY QUESTIONS FEEL FREE TO CALL: 1. OFFICE [phone] 2. ANSWERING SERVICE: [phone] Images from the original note were not [...] Thank you, Shivani Jarquin RN Rapid Response: [facility] NUTRITION ADULT FOLLOW UP NUTRITION ASSESSMENT: Patient History: Brief Clinical Summary: Patient presented to [facility] for surgery. Whipple performed 05/09 for for pancreatic adenocarcinoma . PMH ESRD on HD, T2DM, HTN, hypothyroidism, HLD, peptic ulcer disease, renal cell carcinoma. Biochemical Data, Medical Tests, and Procedures: 05/10 HD Labs: Results from last 3 days Lab Units 05/15/24 0630 05/14/24 0314 05/13/24 2138 05/13/24 1607 05/13/24 0247 SODIUM mmol/L [...] (H) 02/23/2018 Lab Results Component Value Date [id number] 314 05/15/2024 Lab Results Component Value Date [...] BID Parker Rachel MD 25 mg at 05/14/242039 dextrose (GLUTOSE) 40 % gel 15 g [...] injection 5,000 Units 5,000 Units subcutaneous Q8H [facility] Amanda Randall PA-C 5,000 Units at 05/13/24 1445 hydrALAZINE (APRESOLINE) injection 20 mg 20 mg intravenous Q4H PRN Sushil Bryant MD 20 mg at 05/12/24 175 HYDROmorphone (PF) (DILAUDID) injection 1 mg 1 mg intravenous Q4H PRN Desean Taylor MD 1 mg at 05/12/24 0256 insulin lispro (HumaLOG) injection 2-16 Units 2-16 Units subcutaneous Q4H Stanley Thomas MD 4 Units at 05/14/242058 labetaloL (NORMODYNE,TRANDATE) injection 20 mg 20 mg [...] tablet 60 mg 60 mg oral Q24H DALIA Sobeida Self MD ondansetron (PF) (ZOFRAN) injection 4 mg 4 mg intravenous Q4H PRN FLAVIA Holly 4 mg at 05/14/242033 oxyCODONE (ROXICODONE) immediate release tablet 5 mg 5 mg oral Q4H PRN Desean Taylor MD 5 mg at 05/13/24 08 Or oxyCODONE (ROXICODONE) immediate release tablet 10 mg 10 mg oral Q4H PRN Desean Taylor MD 10 mg at 05/14/242057 polyethylene glycol (GLYCOLAX) packet 17 g 17 g oral Daily PRN Desean Taylor MD potassium chloride (K-TAB,KLOR-CON) CR tablet 20-50 mEq 20-50 mEq oral PRN FLAVIA Holly 10 mEq at 05/13/24 05 Or potassium chloride (KAYCIEL) 20 mEq/15 mL solution 20-50 mEq 20-50 mEq oral PRN FLAVIA Holly 20 mEq at 05/13/24 181 potassium chloride IVPB 10 mEq/50 mL in water (0.2 mEq/mL premix) 10 mEq intravenous PRN FLAVIA Holly Or potassium chloride IVPB 10 mEq/100 mL in water (0.1 mEq/mL premix) 10 mEq intravenous PRN FLAVIA Holly sodium phosphate 20 mmol in sodium chloride 0.9 % 250 mL IVPB 20 mmol intravenous PRN Kylie G Jojo, PA Or sodium phosphate 20 mmol in sodium chloride 0.9 % 100 mL IVPB 20 mmol intravenous PRN Kylie G Aditik, PA Stopped at 05/13/24 1013 Or sod phos di, mono-K phos mono (K-PHOS NEUTRAL) 250 mg tablet 2 tablet 2 tablet oral PRN Kylie G Jojo, FLAVIA sodium chloride 0.9 % bolus 150 mL intravenous Q5 Min PRN Vidhit Jasmin, DO sodium chloride 0.9 % flush 10 mL 10 mL intravenous Q96H Vidhit Jasmin, DO 10 mL at 05/14/24 0757 sodium chloride 0.9 % flush 10 mL 10 mL intravenous PRN Vidhit Jasmin, DO 10 mL at 05/12/24 0821 sodium chloride 0.9 % flush 10 mL 10 mL intravenous PRN Vidhit Jasmin, DO 10 mL at 05/15/24 1338 sodium chloride 0.9 % flush 10 mL 10 mL intravenous Q96H Vidhit Jasmin, DO 10 mL at 05/14/24 0756 sodium chloride 0.9 % flush 10 mL 10 mL intravenous PRN Vidhit Jasmin, DO 10 mL at 05/12/24 0821 sodium chloride 0.9 % flush 10 mL 10 mL intravenous PRN Vidhit Jasmin, DO 10 mL at 05/15/24 1338 sodium chloride 0.9 % infusion 3 mL/hr intra-arterial Continuous Jeffrey Mcfadden MD 3 mL/hr at 05/12/24 1918 3 mL/hr at 05/12/24 1918 sodium citrate 4 % (3 mL) flush 1.6 mL 1.6 mL intravenous Q96H Vidhit Jasmin, DO 1.6 mL at 05/14/24 0756 sodium citrate 4 % (3 mL) flush 1.6 mL 1.6 mL intravenous PRN Vidhit Jasmin, DO 1.6 mL at 05/15/24 1339 sodium citrate 4 % (3 mL) flush 1.6 mL 1.6 mL intravenous Q96H Stanley Thomas MD sodium citrate 4 % (3 mL) flush 1.7 mL 1.7 mL intravenous Q96H Vidhit Jasmin, DO 1.7 mL at 05/14/24 0756 sodium citrate 4 % (3 mL) flush 1.7 mL 1.7 mL intravenous PRN Vidhit Jasmin, DO 1.7 mL at 05/15/24 1339 sodium citrate 4 % (3 mL) flush 1.7 mL 1.7 mL intravenous Q96H Stanley Thomas MD Nutrition Focused Physical Findings +HD cath. +drain. Last BM 05/09. Pt denied abdominal pain and nausea. Skin (per nursing flow sheets): Skin Color: [place] (05/15/24 0900) Skin Temp: Warm; Dry (05/15/24 [...] kg/m . Comparative Standards: Estimated Energy Needs: 5005-0061 kcals daily. Method and weight used: 25-30 kcal/kg dry wt Estimated Protein Needs: 73-100 grams daily. Method and weight used: 1.1-1.5 g protein/kg dry wt Estimated Fluid Needs: 1106 ml daily+UOP. Method weight used: 16.6 x dry wt +UOP Comments: [facility] Malnutrition Status: Malnutrition Present: more information [...] POC Rachel Sandhu RD, LD Clinical Dietitian [facility] [phone] Images from the original note were not [...] Thank you, [place] RN Rapid Response: [facility] Images from the original note were not included. Nephrology Daily Progress Note INTERVAL HISTORY/History of present illness: Patient had hemodialysis yesterday with 0.4 L ultrafiltration. Patient is lying in bed and comfortable. No nausea or vomiting. No chest pain. No fever or chills PROBLEM LIST: End-stage renal disease on hemodialysis Tuesday dialyzing at [facility]. End-stage renal disease secondary to postoperative [...] mL/hr, Last Rate: 3 mL/hr (05/12/24 191) PHYSICAL EXAM: Blood pressure 130/75, pulse 101, [...] Results from last 7 days Lab Units 05/15/2462905/14/244 05/13/24 2138 05/13/24 1607 05/13/247 05/12/24 0815 05/12/2432005/11/24 0210 SODIUM mmol/L 137 138 -- -- [...] Results from last 7 days Lab Units 05/15/2462905/14/2431305/13/2424605/12/24 03205/11/24 0210 WBC X10E9/L 8.3 8.0 9.2 8.5 9.2 HEMOGLOBIN g/dL 10.3* 10.2* 10.7* 9.7* 9.8* HEMATOCRIT % 29.5* 29.0* 30.4* 27.3* 27.9* PLATELETS X10E9/L 228 200 192 148* 155 Results from last 7 days Lab Units 05/15/2462905/14/2431305/13/2424605/12/24 03205/11/24 0210 TOTAL PROTEIN g/dL 6.0 5.9* 6.1 [...] perspective Demond Garcia M.D. [facility] Thank you for your consultation and allowing us to participate in the care of Zev Crystal and please do not hesitate to call us with any questions at: Office: [phone] Office Answering Service: [phone] Please feel free to contact me through [email or web address] Secure chat during the daytime hours, if [...] BID heparin (porcine), 5,000 Units, subcutaneous, Q8H [facility] insulin lispro, 2-16 Units, subcutaneous, Q4H levothyroxine, [...] Thank you, Shivani Jarquin RN Rapid Response: [facility] Images from the original note [...] 137/70 Pulse: 91 85 85 86 Resp: 19 16 16 18 Temp: TempSrc: SpO2: 97% 98% [...] 7 days Lab Units 05/14/24 0314 05/13/24 2138 05/13/24 1607 05/13/24 0247 05/12/24 0815 05/12/24 0321 05/11/24 0210 05/10/24 0322 05/10/24 0210 SODIUM mmol/L 138 -- -- 136 -- [...] Units 05/14/24 0314 05/13/24 0247 05/12/24 0321 MAGNESIUM mg/dL 2.2 2.2 2.2 Lab Results Component Value Date CALCIUM 8.5 05/14/2024 Lab Results Component Value Date IRON 35 (L) 05/10/2024 TIBC 244 (L) 05/10/2024 FERRITIN 1,159 (H) 05/10/2024 Problem list End-stage renal disease on hemodialysis Tuesday dialyzing at [facility]. End-stage renal disease secondary to postoperative [...] Vasectomy SOBEIDA SELF MD [facility] ANY QUESTIONS FEEL FREE TO CALL: 1. OFFICE [phone] 2. ANSWERING SERVICE:[phone] YOU CAN CONTACT ME THROUGH [employer] SECURE CHAT DURING THE DAYTIME HOURS, IF [...] 05/12/24 0321 05/11/24 0440 05/11/24 0210 05/10/24 03205/10/24 0210 POTASSIUM mmol/L -- 4.1 -- 3.8 [...] Results from last 7 days Lab Units 05/09/24184405/09/24 0923 PORTABLE INR [...] had been disolodged accidentally over the weekend. Kylee Cao MD Surgical Oncologist Hepatobiliary, Pancreas & Endocrine Surgery SICU Academic Critical Care Progress Note Name: [...] gut contamination thus it was sent to [facility] where an independent pathologist agreed [...] History: Diagnosis Date AAA (abdominal aortic aneurysm) ([facility]) monitoring Anemia received iron infusions Anxiety xanax prn Arthritis CKD (chronic kidney disease) stage 4, GFR 15-29 ml/min ([facility]) 06/2023 Coronary artery disease patient states 1 artery occuluded, no stents DDD (degenerative disc disease), lumbar Dental disease missing tooth front Diabetes mellitus type 2, controlled ([facility]) Dialysis patient ([facility]) [facility] Essential hypertension 02/23/2018 HL (hearing loss) hearing aid lt ear, deaf right ear Hypothyroidism Mixed hyperlipidemia 02/23/2018 Nicotine dependence 02/23/2018 Pancreatic neoplasm Pancreatitis Peptic ulceration when he was younger Renal cell carcinoma ([facility]) right, left kidney atrophied Skin cancer BCC/SCC Varicella 03/2024 shingles Visual impairment glasses prn Past Surgical History: Procedure Laterality Date BIOPSY MASS 04/01/2023 right kidney BRACHIAL CEPHALIC ARTERIOVENOUS FISTULA Left 01/11/2024 Performed by Zac Lombardi MD at [facility] CARDIAC CATHETERIZATION 2004 2007 [facility] CHOLECYSTECTOMY 2005 COLONOSCOPY 2012 ENDOSCOPIC ULTRASOUND UPPER N/A 04/04/2024 Performed by Polly Reeder MD at [facility] ESOPHAGOGASTRODUODENOSCOPY DIAGNOSTIC N/A 04/04/2024 Performed by Polly Reeder MD at [facility] NASAL SINUS SURGERY 2003 cleaned out NEPHRECTOMY PARTIAL OPEN(BIOBANK) Right 07/21/2023 Performed by Mary Telles MD at [facility] SKIN BIOPSY Several times STRABISMUS SURGERY 1961 VASECTOMY WHIPPLE WITH INTRA OPERATIVE ULTRASOUND- BIOBANK N/A 05/09/2024 Performed by Jeffrey Mcfadden MD at [facility] Medications Prior to Admission Medication Sig [...] Narrative Lives with . Worked at a [employer]. Has a dog in the home. Social [...] 05/14/24 0551 05/14/24 0314 05/13/24 2317 05/13/24 2133 05/13/24 1825 05/13/24 [...] ALT U/L 40 59* 84* Hospital Meds: Sarah Huitron Home Meds: PMH: [...] Fluid/24H:-470 Intake/Output Summary (Last 24 hours) at 05/14/2024 0722 Last data filed at 05/14/2024 0600 Gross per 24 hour Intake -- Output 470 ml Net -470 ml Net Fluid Since Admission: Net IO Since Admission: 479.85 mL [05/14/24 0722] Strict monitoring of Ins and Outs Hospital Meds: Coreg, hydralazine, labetalol, nifedipine Home Meds: Sevelamer, Bumex PMH: ESRD on HD, right renal cell carcinoma PSH: Left upper extremity brachiocephalic AV fistula, open partial right nephrectomy 6. Heme Labs: Results from last 3 days Lab Units 05/14/24 0314 05/13/24 0247 05/12/24 0321 HEMOGLOBIN g/dL 10.2* 10.7* 9.7* [...] Notes/Findings: Electronically signed by BERNARDO MAN MD [facility] General Surgeons Robotic Surgery Surgical Critical Care [phone] Images from the original note were not [...] Units 05/13/24 0336 05/13/24 0247 05/12/24 2336 05/12/24 2001 05/12/24 1653 05/12/24 1223 05/12/24 0815 05/12/24 0344 05/12/24 0321 05/11/24 0440 05/11/24 0210 05/10/24 1124 05/10/24 0718 05/10/241 05/10/2420905/09/24201505/09/241844 POTASSIUM mmol/L -- 3.7 -- -- -- [...] Results from last 7 days Lab Units 05/09/24184405/09/24 0923 PORTABLE INR [...] stomach with tip not included in the [id number]-[id number]. A tunneled right jugular dialysis catheter tip [...] I reviewed the resident's note. Additional Notes/Findings: Lonnie was unfortunately accidentally dislodged by patient while [...] renal disease on hemodialysis Tuesday dialyzing at [facility]. End-stage renal disease secondary to postoperative [...] 1,159 (H) 05/10/2024 Please contact me at [phone] (Office) or [phone] (Answering service) with any questions. Kevin Rosario DO [facility] This note was created with the assistance of a speech-recognition program. Although the intention is to generate a document that actually reflects the content of the visit, no guarantees can be provided that every mistake has been identified and corrected by editing. [facility] Academic Critical Care Progress Note Name: Zev [...] gut contamination thus it was sent to [facility] where an independent pathologist agreed [...] History: Diagnosis Date AAA (abdominal aortic aneurysm) ([facility]) monitoring Anemia received iron infusions Anxiety xanax prn Arthritis CKD (chronic kidney disease) stage 4, GFR 15-29 ml/min ([facility]) 06/2023 Coronary artery disease patient states 1 artery occuluded, no stents DDD (degenerative disc disease), lumbar Dental disease missing tooth front Diabetes mellitus type 2, controlled ([facility]) Dialysis patient ([facility]) [facility] Essential hypertension 02/23/2018 HL (hearing loss) hearing aid lt ear, deaf right ear Hypothyroidism Mixed hyperlipidemia 02/23/2018 Nicotine dependence 02/23/2018 Pancreatic neoplasm Pancreatitis Peptic ulceration when he was younger Renal cell carcinoma ([facility]) right, left kidney atrophied Skin cancer BCC/SCC Varicella 03/2024 shingles Visual impairment glasses prn Past Surgical History: Procedure Laterality Date BIOPSY MASS 04/01/2023 right kidney BRACHIAL CEPHALIC ARTERIOVENOUS FISTULA Left 01/11/2024 Performed by Zac Lombardi MD at [facility] CARDIAC CATHETERIZATION 2004 2007 [facility] CHOLECYSTECTOMY 2005 COLONOSCOPY 2012 ENDOSCOPIC ULTRASOUND UPPER N/A 04/04/2024 Performed by Polly Reeder MD at [facility] ESOPHAGOGASTRODUODENOSCOPY DIAGNOSTIC N/A 04/04/2024 Performed by Polly Reeder MD at [facility] NASAL SINUS SURGERY 2004 cleaned out NEPHRECTOMY PARTIAL OPEN(BIOBANK) Right 07/21/2023 Performed by Mary Telles MD at [facility] SKIN BIOPSY Several times STRABISMUS SURGERY 1961 VASECTOMY WHIPPLE WITH INTRA OPERATIVE ULTRASOUND- BIOBANK N/A 05/09/2024 Performed by Jeffrey Mcfadden MD at [facility] Medications Prior to Admission Medication Sig [...] Narrative Lives with . Worked at a [employer]. Has a dog in the home. Social [...] Results from last 3 days Lab Units 05/13/2424605/12/24 0815 05/12/2432005/11/2420905/10/24 0718 BUN mg/dL 20 -- 33* 28* -- CREATININE mg/dL 2.46* -- 3.39* 3.04* -- POTASSIUM mmol/L 3.7 3.9 3.8 4.1 5.5* CO2 mmol/L -- 24 22 -- CHLORIDE mmol/L 100 -- 103 101 -- MAGNESIUM mg/dL 2.2 -- 2.2 2.1 -- AST U/L 22 -- 33 73* -- ALT U/L 59* -- 84* 153* -- ALK PHOS U/L 82 -- 78 78 -- No data from last 3 days. Results from last 3 days Lab Units 05/13/2424605/12/2432005/11/24210 04/17/24 1105 WBC X10E9/L 9.2 8.5 9.2 -- [...] Results from last 3 days Lab Units 05/13/2424605/12/2432005/11/24 0210 AST U/L 22 33 73* ALT U/L 59* 84* 153* Hospital Meds: Pepcid Isra Reglan Home Meds: PMH: Peptic ulcer disease [...] Fluid/24H:-709 Intake/Output Summary (Last 24 hours) at 05/13/2024643 Last data filed at 05/13/2024 0200 Gross per 24 hour Intake 1110.45 ml Output 1820 ml Net -709.55 ml Net Fluid Since Admission: Net IO Since Admission: 949.85 mL [05/13/24643] Strict monitoring of Ins and Outs Hospital [...] 0210 05/10/24 1124 05/10/24 0718 05/10/24 0422 10/1732105/10/2432005/10/2420905/09/24201505/09/24184405/09/24920 0000 POTASSIUM mmol/L -- -- 3.8 -- [...] Results from last 7 days Lab Units 05/09/24184405/09/24922 PORTABLE INR -- 1.1 INR 1.1 -- PROTIME sec 13.1 -- MEDICATIONS: acetaminophen, 1,000 mg, oral, Q6H DALIA carvediloL, 25 mg, oral, BID famotidine, 20 mg, intravenous, Q48H heparin (porcine), 5,000 Units, subcutaneous, Q8H [facility] insulin lispro, 2-10 Units, subcutaneous, Q4H metoclopramide, 5 mg, intravenous, Q12H NIFEdipine XL, 30 mg, oral, Q24H DALIA sevelamer carbonate, 800 mg, oral, TID with meals sodium chloride, 10 mL, intravenous, Q96H sodium chloride, 10 mL, intravenous, Q96H sodium citrate, 1.6 mL, intravenous, Q96H sodium citrate, 1.7 mL, intravenous, Q96H sodium chloride 0.9 %, 3 mL/hr, Last Rate: 3 mL/hr (05/11/24 06) IMAGING: No results found. ASSESSMENT: The patient [...] renal disease on hemodialysis Tuesday dialyzing at [facility]. End-stage renal disease secondary to postoperative [...] from last 7 days Lab Units 05/12/24 03205/11/2420905/10/24 0718 05/10/24 0322 05/10/24209 SODIUM mmol/L 137 134 -- -- 138 [...] from last 7 days Lab Units 05/12/24 03205/11/24 0210 05/10/24 1105 05/10/24209 WBC X10E9/L 8.5 9.2 -- 11.8* HEMOGLOBIN g/dL 9.7* 9.8* 10.5* 10.8* HEMATOCRIT % 27.3* 27.9* 30.5* 31.6* PLATELETS X10E9/L 148* 155 -- 171 Results from last 7 days Lab Units 05/12/24 03205/11/24 0210 05/10/24209 MAGNESIUM mg/dL 2.2 2.1 2.5 Lab Results Component Value Date CALCIUM 8.4 (L) 05/12/2024 Lab Results Component Value Date IRON 35 (L) 05/10/2024 TIBC 244 (L) 05/10/2024 FERRITIN 1,159 (H) 05/10/2024 Please contact me at [phone] (Office) or [phone] (Answering service) with any questions. Kevin Rosario DO [facility] This note was created with the assistance of a speech-recognition program. Although the intention is to generate a document that actually reflects the content of the visit, no guarantees can be provided that every mistake has been identified and corrected by editing. SICU Academic Critical Care Consultation Name: Zev [...] gut contamination thus it was sent to [facility] where an independent pathologist agreed [...] History: Diagnosis Date AAA (abdominal aortic aneurysm) ([facility]) monitoring Anemia received iron infusions Anxiety xanax prn Arthritis CKD (chronic kidney disease) stage 4, GFR 15-29 ml/min ([facility]) 06/2023 Coronary artery disease patient states 1 artery occuluded, no stents DDD (degenerative disc disease), lumbar Dental disease missing tooth front Diabetes mellitus type 2, controlled ([facility]) Dialysis patient ([facility]) [facility] Essential hypertension 02/23/2018 HL (hearing loss) hearing aid lt ear, deaf right ear Hypothyroidism Mixed hyperlipidemia 02/23/2018 Nicotine dependence 02/23/2018 Pancreatic neoplasm Pancreatitis Peptic ulceration when he was younger Renal cell carcinoma ([facility]) right, left kidney atrophied Skin cancer BCC/SCC Varicella 03/2024 shingles Visual impairment glasses prn Past Surgical History: Procedure Laterality Date BIOPSY MASS 04/01/2023 right kidney BRACHIAL CEPHALIC ARTERIOVENOUS FISTULA Left 01/11/2024 Performed by Zac Lombardi MD at [facility] CARDIAC CATHETERIZATION 2004 2007 [facility] [place] CHOLECYSTECTOMY 2006 COLONOSCOPY 2012 ENDOSCOPIC ULTRASOUND UPPER N/A 04/04/2024 Performed by Polly Reeder MD at [facility] ESOPHAGOGASTRODUODENOSCOPY DIAGNOSTIC N/A 04/04/2024 Performed by Polly Reeder MD at [facility] NASAL SINUS SURGERY 2003 cleaned out NEPHRECTOMY PARTIAL OPEN(BIOBANK) Right 07/21/2023 Performed by Mary Telles MD at [facility] SKIN BIOPSY Several times STRABISMUS SURGERY 1961 VASECTOMY WHIPPLE WITH INTRA OPERATIVE ULTRASOUND- BIOBANK N/A 05/09/2024 Performed by Jeffrey Mcfadden MD at [facility] ROS Constitutional: []fever, []chills, []fatigue, [x]unplanned [...] Narrative Lives with . Worked at a [employer]. Has a dog in the home. Social [...] 05/10/24 0322 05/10/24 0210 05/09/24 1845 05/09/24 0921 BUN mg/dL 33* 28* -- -- 45* 37* -- CREATININE mg/dL 3.39* 3.04* -- -- 3.77* 3.22* -- POC CREATININE mg/dL -- -- -- -- -- -- ORDERED IN ERROR POTASSIUM mmol/L 3.8 4.1 5.5* 6.2* 6.2* 5.0 -- POC POTASSIUM mmol/L -- -- -- -- -- -- 4.9 CO2 mmol/L 24 22 -- -- 20* 23 -- CHLORIDE mmol/L 103 101 -- -- 108 109 -- MAGNESIUM mg/dL 2.2 2.1 -- -- 2.5 2.6 -- AST U/L 33 73* -- -- 156* 173* -- ALT U/L 84* 153* -- -- 219* 189* -- ALK PHOS U/L 78 78 -- -- 100 109 -- Results from last 3 days Lab Units 05/09/24 18405/09/24 0923 PORTABLE [...] last 7 days Lab Units 05/12/24 0344 05/12/24 0321 05/11/24 2346 05/11/24 2002 05/11/24 1622 05/11/24 1201 [...] from last 3 days Lab Units 05/12/24 03205/11/24 0210 05/10/24 0210 05/09/24 1845 05/09/24 1618 [...] from last 3 days Lab Units 05/12/24 03205/11/24 0210 05/10/24 0718 05/10/2432105/10/24209 SODIUM mmol/L 137 134 -- -- 138 [...] 210 Intake/Output Summary (Last 24 hours) at 05/12/2024608 Last data filed at 05/12/2024 0600 Gross per 24 hour Intake 676.36 ml Output 330 ml Net 346.36 ml Net Fluid Since Admission: Net IO Since Admission: 1,659.4 mL [05/12/24608] Strict monitoring of Ins and Outs Hospital Meds: Home Meds: Sevelamer, Bumex PMH: ESRD on HD, right renal cell carcinoma PSH: Left upper extremity brachiocephalic AV fistula, open partial right nephrectomy 6. Heme Labs: Results from last 3 days Lab Units 05/12/24 03205/11/24 0210 05/10/24 1105 05/10/24 0210 05/09/24 2300 [...] from last 3 days Lab Units 05/12/24 03205/11/240 05/10/24 021 WBC X10E9/L 8.5 9.2 11.8* Hospital Meds: [...] renal disease on hemodialysis Tuesday dialyzing at [facility]. End-stage renal disease secondary to postoperative [...] 7 days Lab Units 05/11/24 0210 05/10/24 0718 [...] 1,159 (H) 05/10/2024 Please contact me at [phone] (Office) or [phone] (Answering service) with any questions. Kevin Rosario DO [facility] This note was created with the assistance of a speech-recognition program. Although the intention is to generate a document that actually reflects the content of the visit, no guarantees can be provided that every mistake has been identified and corrected by editing. SICU Academic Critical Care Consultation Name: Zev [...] gut contamination thus it was sent to [facility] where an independent pathologist agreed [...] History: Diagnosis Date AAA (abdominal aortic aneurysm) ([facility]) monitoring Anemia received iron infusions Anxiety xanax prn Arthritis CKD (chronic kidney disease) stage 4, GFR 15-29 ml/min ([facility]) 06/2023 Coronary artery disease patient states 1 artery occuluded, no stents DDD (degenerative disc disease), lumbar Dental disease missing tooth front Diabetes mellitus type 2, controlled ([facility]) Dialysis patient ([facility]) [facility] Essential hypertension 02/23/2018 HL (hearing loss) hearing [...] 01/11/2024 Performed by Zac Lombardi MD at [facility] CARDIAC CATHETERIZATION 2004 2007 [facility] [place] CHOLECYSTECTOMY 2005 COLONOSCOPY 2012 ENDOSCOPIC ULTRASOUND UPPER N/A 04/04/2024 Performed by Polly Reeder MD at [facility] ESOPHAGOGASTRODUODENOSCOPY DIAGNOSTIC N/A 04/04/2024 Performed by Polly Reeder MD at [facility] NASAL SINUS SURGERY 2003 cleaned out NEPHRECTOMY PARTIAL OPEN(BIOBANK) Right 07/21/2023 Performed by Mary Telles MD at [facility] SKIN BIOPSY Several times STRABISMUS SURGERY 1961 VASECTOMY WHIPPLE WITH INTRA OPERATIVE ULTRASOUND- BIOBANK N/A 05/09/2024 Performed by Jeffrey Mcfadden MD at [facility] ROS Constitutional: []fever, []chills, []fatigue, [x]unplanned [...] Narrative Lives with . Worked at a [employer]. Has a dog in the home. Social [...] 05/10/24 0322 05/10/24 0210 05/09/24 1845 05/09/24 0921 BUN mg/dL 28* -- -- 45* [...] Results from last 3 days Lab Units 10/16/24 1845 05/09/24 0923 PORTABLE INR -- 1.1 INR 1.1 -- PROTIME sec 13.1 -- Results from last 3 days Lab Units 05/11/24 0210 05/10/24 1105 05/10/24 0210 05/09/24 2300 05/09/24 1845 05/09/24 0921 WBC X10E9/L 9.2 -- 11.8* -- [...] Units 05/11/24 0440 05/11/24 0210 05/11/24 0029 05/10/248 05/10/24 1702 05/10/24 1124 05/10/24 0559 05/10/24 0422 05/10/24 0321 05/10/24 0210 05/10/24 0005 05/09/24 2016 BEDSIDE GLUCOSE mg/dL 185* -- 170* 146* [...] mL/hr, Last Rate: 3 mL/hr (05/11/24 06) Microbiology Results No results found for the [...] -- -- 1.8 0.7 0.5 Hospital Meds: Pepcid Zofran Reglan Home Meds: PMH: Peptic ulcer disease PSH: Cholecystectomy 5. Renal/Genitourinary ESRD on hemodialysis, consult nephrology, appreciate recommendations Electrolytes: Results from last 3 days Lab Units 05/11/24 02105/10/24 0718 05/10/24 0322 05/10/2420905/09/24 1845 SODIUM mmol/L [...] last 3 days Lab Units 05/11/2420905/10/24 1105 05/10/24 0210 05/09/24 2300 05/09/24 1845 [...] Units 05/11/24 0210 05/10/24 0210 05/09/24 1845 WBC X10E9/L 9.2 11.8* 12.0* Hospital Meds: Antibiotics: Zosyn (05/11-05/10) Continue to monitor for signs of infection 8. Endocrine Results from last 3 days Lab Units 05/11/24 0440 05/11/24 0210 05/11/24 0029 BEDSIDE GLUCOSE mg/dL 185* -- [...] Units 05/11/24 0440 05/11/24 0210 05/11/24 0029 05/10/248 05/10/24 1702 05/10/24 1124 05/10/24 0718 05/10/24 0422 05/10/24 0322 05/10/24 0321 05/10/24 0210 05/09/24201505/09/24 18405/09/24 0921 0000 POTASSIUM mmol/L -- 4.1 -- [...] Results from last 7 days Lab Units 05/09/24184405/09/24 09 PORTABLE INR -- 1.1 INR 1.1 -- [...] on hemodialysis Tuesday dialyzing at . renal [facility]. End-stage renal disease secondary to postoperative [...] FERRITIN 68 07/22/2023 Please contact me at [phone] (Office) or [phone] (Answering service) with any questions. Kevin Rosario DO [facility] This note was created with the assistance of a speech-recognition program. Although the intention is to generate a document that actually reflects the content of the visit, no guarantees can be provided that every mistake has been identified and corrected by editing. [facility] Department of Pharmacy Pharmacist to Physician Communication The dose of metoclopramide has been changed to 5 mg every 12 hours per the [facility] approved renal dosing guidelines, based on an [...] Units 05/10/24 0210 05/09/24 2300 05/09/24 1845 05/09/24 0921 WBC X10E9/L 11.8* -- 12.0* -- [...] Results from last 7 days Lab Units 05/09/24184405/09/2423 PORTABLE INR -- [...] gut contamination thus it was sent to [facility] where an independent pathologist agreed [...] History: Diagnosis Date AAA (abdominal aortic aneurysm) ([facility]) monitoring Anemia received iron infusions Anxiety xanax prn Arthritis CKD (chronic kidney disease) stage 4, GFR 15-29 ml/min ([facility]) 06/2023 Coronary artery disease patient states 1 artery occuluded, no stents DDD (degenerative disc disease), lumbar Dental disease missing tooth front Diabetes mellitus type 2, controlled ([facility]) Dialysis patient ([facility]) [facility] Essential hypertension 02/23/2018 HL (hearing loss) hearing aid lt ear, deaf right ear Hypothyroidism Mixed hyperlipidemia 02/23/2018 Nicotine dependence 02/23/2018 Pancreatic neoplasm Pancreatitis Peptic ulceration when he was younger Renal cell carcinoma ([facility]) right, left kidney atrophied Skin cancer BCC/SCC Varicella 03/2024 shingles Visual impairment glasses prn Past Surgical History: Procedure Laterality Date BIOPSY MASS 04/01/2023 right kidney BRACHIAL CEPHALIC ARTERIOVENOUS FISTULA Left 01/11/2024 Performed by Zac Lombardi MD at [facility] CARDIAC CATHETERIZATION 2004 2007 [facility] [place] CHOLECYSTECTOMY 2005 COLONOSCOPY 2012 ENDOSCOPIC ULTRASOUND UPPER N/A 04/04/2024 Performed by Polly Reeder MD at [facility] ESOPHAGOGASTRODUODENOSCOPY DIAGNOSTIC N/A 04/04/2024 Performed by Polly Reeder MD at [facility] NASAL SINUS SURGERY 2003 cleaned out NEPHRECTOMY PARTIAL OPEN(BIOBANK) Right 07/21/2023 Performed by Mary Telles MD at [facility] SKIN BIOPSY Several times STRABISMUS SURGERY [...] Narrative Lives with . Worked at a [employer]. Has a dog in the home. Social [...] from last 3 days Lab Units 05/10/24 03205/10/2420905/09/24184405/09/24920 BUN mg/dL -- 45* 37* -- CREATININE [...] from last 3 days Lab Units 05/10/24 02105/09/24 23005/09/24184405/09/24 0921 WBC X10E9/L 11.8* -- 12.0* [...] Units 05/10/24 0559 05/10/24 0422 05/10/24 0321 05/10/24 0210 05/10/24 0005 05/09/24 2016 05/09/24 1845 05/09/24 0921 POC GLUCOSE mg/dL -- -- -- [...] %, 50 mL/hr, Last Rate: 50 mL/hr (05/10/24 0628) sodium chloride 0.9 %, 3 mL/hr, Last Rate: 3 mL/hr (05/10/24 0628) Microbiology Results No results found for the [...] monitoring Cardiology consult pending Troponin 38 > tending Hospital Meds: Labetalol PRN, Hydralazine PRN Home [...] last 3 days Lab Units 05/10/24 0322 05/10/24 0210 05/09/24 1845 05/09/24 0921 SODIUM mmol/L -- 138 141 -- CHLORIDE [...] 1648 Intake/Output Summary (Last 24 hours) at 05/10/2024 0644 Last data filed at 05/10/2024 06 Gross per 24 hour Intake 2663.04 ml Output 1015 ml Net 1648.04 ml Net Fluid Since Admission: Net IO Since Admission: 1,648.04 mL [05/10/24 0644] Strict monitoring of Ins and Outs Hospital Meds: Home Meds: Sevelamer, Bumex PMH: ESRD on HD, right renal cell carcinoma PSH: Left upper extremity brachiocephalic AV fistula, open partial right nephrectomy 6. Heme Labs: Results from last 3 days Lab Units 05/10/24 0210 05/09/24 2300 05/09/24 1845 05/09/24 0923 HEMOGLOBIN g/dL 10.8* 11.3* 11.5* -- [...] and titration of care by critical care beverage sales consultant. Failure to do so may result [...] MD Trauma/Surgical Critical Care 05/10/2024 11:26 AM [facility] Department of Pharmacy Pharmacist to Physician Communication The dose of piperacillin/tazobactam for intra-abdominal infection has been changed to 3.375 g IV every 12 hours infused over 4 hours starting 8 hours after the loading dose per the [facility] approved renal dosing guidelines, based on an CrCl cannot be calculated (This lab value cannot be used to calculate CrCl because it is not a number: ORDERED IN ERROR). CrCl calculated to be < 20 ml/min Thank you, Danuta Jaquez RPH [facility] Department of Pharmacy Pharmacist to Physician Communication The dose of famotidine has been changed to 20 mg every 48 hours per the [facility] approved renal dosing guidelines, based on an CrCl of 19.43 mL/min (scr 3.63 mg/dL) Thank you, Danuta Irvin PharmD, [facility] documented in this encounter [facility] Consult note Associated Order (s): IP CONSULT TO NUTRITION SERVICES NUTRITION ADULT INITIAL EVALUATION NUTRITION ASSESSMENT: Reason to be seen: consult for calorie counts Patient History: Admit Diagnosis: Patient Active Problem List Diagnosis AAA (abdominal aortic aneurysm) ([facility]) Essential hypertension Mixed hyperlipidemia Nicotine dependence Idiopathic acute pancreatitis without infection or necrosis Renal cell carcinoma ([facility] [place]) Right renal mass End stage renal disease ([facility]) Abnormal echocardiogram Chest discomfort Chronic kidney disease PAD (peripheral artery disease) ([facility]) Abnormal ECG Hypertrophic cardiomyopathy ([facility]) Preop cardiovascular exam Pancreatic duct dilated IPMN (intraductal papillary mucinous neoplasm) Pancreatic neoplasm Past Medical History: Past Medical History: Diagnosis Date AAA (abdominal aortic aneurysm) ([facility]) monitoring Anemia received iron infusions Anxiety xanax prn Arthritis CKD (chronic kidney disease) stage 4, GFR 15-29 ml/min ([facility]) 06/2023 Coronary artery disease patient states 1 artery occuluded, no stents DDD (degenerative disc disease), lumbar Dental disease missing tooth front Diabetes mellitus type 2, controlled ([facility]) Dialysis patient ([facility]) [facility] Essential hypertension 02/23/2018 HL (hearing loss) hearing aid lt ear, deaf right ear Hypothyroidism Mixed hyperlipidemia 02/23/2018 Nicotine dependence 02/23/2018 Pancreatic neoplasm Pancreatitis Peptic ulceration when he was younger Renal cell carcinoma ([facility]) right, left kidney atrophied Skin cancer BCC/SCC Varicella 03/2024 shingles Visual impairment glasses prn Past Surgical History: Past Surgical History: Procedure Laterality Date BIOPSY MASS 04/01/2023 right kidney BRACHIAL CEPHALIC ARTERIOVENOUS FISTULA Left 01/11/2024 Performed by Zac Lombardi MD at [facility] CARDIAC CATHETERIZATION 2004 2007 [facility] [place] CHOLECYSTECTOMY 2005 COLONOSCOPY 2012 ENDOSCOPIC ULTRASOUND UPPER N/A 04/04/2024 Performed by Polly Reeder MD at [facility] ESOPHAGOGASTRODUODENOSCOPY DIAGNOSTIC N/A 04/04/2024 Performed by Polly Reeder MD at [facility] NASAL SINUS SURGERY 2003 cleaned out NEPHRECTOMY PARTIAL OPEN(BIOBANK) Right 07/21/2023 Performed by Mary Telles MD at [facility] SKIN BIOPSY Several times STRABISMUS SURGERY 1961 VASECTOMY WHIPPLE WITH INTRA OPERATIVE ULTRASOUND- BIOBANK N/A 05/09/2024 Performed by Jeffrey Mcfadden MD at [facility] Social/ Cognitive/ Economic: from home Brief Clinical Summary: Patient presented to [facility] for surgery. Whipple performed 05/09 for for pancreatic adenocarcinoma . PMH ESRD on HD, T2DM, HTN, hypothyroidism, HLD, peptic ulcer disease, renal cell carcinoma. Biochemical Data, Medical Tests, and Procedures: 05/10 HD Labs: Results from last 3 days Lab Units 05/13/24 0247 05/12/24 0815 05/12/2432005/11/24 0210 SODIUM mmol/L 136 -- 137 134 [...] 05/12/24 2336 05/12/24200005/12/24 1653 BEDSIDE GLUCOSE mg/dL 159* [...] 05/11/24 0210 MAGNESIUM mg/dL 2.2 2.2 2.1 Results from last 3 days Lab Units 05/13/24 0247 05/12/24 0321 05/11/24 0210 PHOSPHORUS mg/dL 2.1* 2.7 3.8 Results from last 3 days Lab Units 05/13/24 0247 05/12/24 0321 05/11/24 0210 TOTAL BILIRUBIN mg/dL 0.7 [...] (H) 02/23/2018 Lab Results Component Value Date [id number] 05/10/2024 Lab Results Component Value Date [...] injection 5,000 Units 5,000 Units subcutaneous Q8H [facility] Amanda Randall PA-C 5,000 Units at 05/13/24 0553 hydrALAZINE (APRESOLINE) injection 20 mg 20 mg intravenous Q4H PRN Eliazbeth Winters MD 20 mg at 05/12/24 1753 [...] tablet 30 mg 30 mg oral Q12H [facility] Kevin Schreiberi, DO 30 mg at 05/13/24 0824 ondansetron [...] 250 mL IVPB 20 mmol intravenous PRN KylieFLAVIA Metz Or sodium phosphate 20 mmol in sodium chloride 0.9 % 100 mL IVPB 20 mmol intravenous PRN Kyliekike Uribe PA Stopped at 05/13/24 1013 Or sod phos di, mono-K phos mono (K-PHOS NEUTRAL) 250 mg tablet 2 tablet 2 tablet oral PRN FLAVIA Holly sodium chloride 0.9 % bolus 150 mL intravenous Q5 Min PRN Vidhit Jasmin, DO sodium chloride 0.9 % flush 10 mL 10 mL intravenous Q96H Vidhit Jasmin, DO 10 mL at 05/12/24 1122 sodium chloride 0.9 % flush 10 mL 10 mL intravenous PRN Vidhit Jasmin, DO 10 mL at 05/12/24 0821 sodium chloride 0.9 % flush 10 mL 10 mL intravenous PRN Vidhit Jasmin, DO 10 mL at 05/12/24 1121 sodium chloride 0.9 % flush 10 mL 10 mL intravenous Q96H Vidhit Jasmin, DO 10 mL at 05/12/24 1121 sodium chloride 0.9 % flush 10 mL 10 mL intravenous PRN Vidhit Jasmin, DO 10 mL at 05/12/24 0821 sodium chloride 0.9 % flush 10 mL 10 mL intravenous PRN Vidhit Jasmin, DO 10 mL at 05/12/24 1120 sodium chloride 0.9 % infusion 3 mL/hr intra-arterial Continuous Jeffrey Mcfadden MD 3 mL/hr at 05/12/24 1918 3 mL/hr at 05/12/24 1918 sodium citrate 4 % (3 mL) flush 1.6 mL 1.6 mL intravenous Q96H Vidhit Jasmin, DO sodium citrate 4 % (3 mL) flush 1.6 mL 1.6 mL intravenous PRN Vidhit Jasmin, DO 1.6 mL at 05/10/24 1112 sodium citrate 4 % (3 mL) flush 1.7 mL 1.7 mL intravenous Q96H Vidhit Jasmin, DO sodium citrate 4 % (3 mL) flush 1.7 mL 1.7 mL intravenous PRN Vidhit Jasmin, DO 1.7 mL at 05/10/24 1112 Nutrition [...] Orders (From admission, onward) Start Ordered 05/13/24 06 Adult diet Clear Liquid; No carbonated beverages [...] ordered Ensure Clear TID TF/TPN Intakes: 05/11 had ordered Nepro with a goal rate [...] 66.6 kg Comparative Standards: Estimated Energy Needs: 0141-9363 kcals daily. Method and weight used: 25-30 kcal/kg dry wt Estimated Protein Needs: 73-100 grams daily. Method and weight used: 1.1-1.5 g protein/kg dry wt Estimated Fluid Needs: 1106 ml daily+UOP. 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 End-stage renal disease secondary to postoperative [...] History: Diagnosis Date AAA (abdominal aortic aneurysm) ([facility]) monitoring Anemia received iron infusions Anxiety xanax prn Arthritis CKD (chronic kidney disease) stage 4, GFR 15-29 ml/min ([facility]) 06/2023 Coronary artery disease patient states 1 artery occuluded, no stents DDD (degenerative disc disease), lumbar Dental disease missing tooth front Diabetes mellitus type 2, controlled ([facility]) Dialysis patient ([facility]) Tue- Renal Center Essential hypertension 02/23/2018 HL (hearing loss) hearing aid lt ear, deaf right ear Hypothyroidism Mixed hyperlipidemia 02/23/2018 Nicotine dependence 02/23/2018 Pancreatic neoplasm Pancreatitis Peptic ulceration when he was younger Renal cell carcinoma ([facility]) right, left kidney atrophied Skin cancer BCC/SCC Varicella 03/2024 shingles Visual impairment glasses prn Past Surgical History: Procedure Laterality Date BIOPSY MASS 04/01/2023 right kidney BRACHIAL CEPHALIC ARTERIOVENOUS FISTULA Left 01/11/2024 Performed by Zac Lombardi MD at [facility] CATHETERIZATION 2004 2007 [facility] CHOLECYSTECTOMY 2006 COLONOSCOPY 2012 ENDOSCOPIC ULTRASOUND UPPER N/A 04/04/2024 Performed by Polly Reeder MD at [facility] ESOPHAGOGASTRODUODENOSCOPY DIAGNOSTIC N/A 04/04/2024 Performed by Polly Reeder MD at [facility] NASAL SINUS SURGERY 2003 cleaned out NEPHRECTOMY PARTIAL OPEN(BIOBANK) Right 07/21/2023 Performed by Mary Telles MD at [facility] SKIN BIOPSY Several times STRABISMUS SURGERY 1961 VASECTOMY WHIPPLE WITH INTRA OPERATIVE ULTRASOUND- BIOBANK N/A 05/09/2024 Performed by Jeffrey Mcfadden MD at [facility] Past surgical history: as above. Allergies: No [...] tobacco: Never Tobacco comments: Currently smoking 12ppd. Vaping Use Vaping status: Never Used Substance and Sexual Activity Alcohol use: No Drug use: Not Currently Types: Marijuana Sexual activity: Defer Other Topics Concern Caffeine Use Yes Social History Narrative Lives with . Worked at a [employer]. Has a dog in the home. Social [...] days Lab Units 05/10/24 0718 05/10/24 0322 05/10/2420905/09/24 18405/09/24 18405/09/24 0921 SODIUM mmol/L -- -- 138 -- [...] from last 7 days Lab Units 05/10/24 02105/09/24 2300 05/09/241844 WBC X10E9/L 11.8* -- 12.0* HEMOGLOBIN g/dL 10.8* 11.3* 11.5* HEMATOCRIT % 31.6* 33.4* 33.3* PLATELETS X10E9/L 171 -- 185 Results from last 7 days Lab Units 05/10/2420905/09/24 184 MAGNESIUM mg/dL 2.5 2.6 Lab Results Component Value Date CALCIUM 8.6 05/10/2024 Lab Results Component Value Date IRON 22 (L) 07/22/2023 TIBC 279 07/22/2023 FERRITIN 68 07/22/2023 Thank you for the consultation and involving me in the patient's care. Please contact me at [phone] (Office) or [phone] (Answering service) with any questions. Kevin Rosario DO [facility] This note was created with the assistance of a speech-recognition program. Although the intention is to generate a document that actually reflects the content of the visit, no guarantees can be provided that every mistake has been identified and corrected by editing. documented in this encounter [employer] 05-09-2024 History and physical note HISTORY AND PHYSICAL INTERVAL NOTE: Zev Crystal 1955 [id number] H&P reviewed. The patient was examined and there are no changes to the H&P. Jeffrey Mcfadden MD Source Note - Jeffrey Mcfadden MD - 04/10/2024 3:30 PM EDT Hepatobiliary and Pancreas Surgery Clinic Note Treatment Team PCP: DYLAN MONTILLA MD Pbx Teacher: n/a Chief Complaint: Main duct IPMN, highly [...] IPMN. Cytology is currently pending review from [facility]. EUS 04/04/[address] Reeder: [...] high-risk for malignancy. Cytology pending review from [facility]. ROS: As per HPI. Past Medical History: Past Medical History: Diagnosis Date AAA (abdominal aortic aneurysm) ([facility]) monitoring Anxiety xanax prn Arthritis CKD (chronic kidney disease) stage 4, GFR 15-29 ml/min ([facility]) 06/2023 Dental disease crown front tooth states could fall out if hit hard enough Diabetes mellitus type 2, controlled ([facility]) Dialysis patient ([facility]) Claudio Campoverde Sat- Renal Center Essential hypertension 02/23/2018 HL (hearing loss) hearing aid lt ear, deaf right ear Hypothyroidism Mixed hyperlipidemia 02/23/2018 Nicotine dependence 02/23/2018 Pancreatitis Peptic ulceration when he was younger Renal cell carcinoma ([facility]) right, left kidney atrophied Skin cancer BCC/SCC Varicella Visual impairment glasses prn Past Surgical History: Past Surgical History: Procedure Laterality Date BIOPSY MASS 04/01/2023 right kidney BRACHIAL CEPHALIC ARTERIOVENOUS FISTULA Left 01/11/2024 Performed by Zac Lombardi MD at [facility] CATHETER[facility] 2004 2007 [facility] CHOLECYSTECTOMY 2005 COLONOSCOPY 2012 ENDOSCOPIC ULTRASOUND UPPER N/A 04/04/2024 Performed by Polly Reeder MD at [facility] ESOPHAGOGASTRODUODENOSCOPY DIAGNOSTIC N/A 04/04/2024 Performed by Polly Reeder MD at [facility] EYE SURGERY NASAL SINUS SURGERY 2003 cleaned out NEPHRECTOMY PARTIAL OPEN(BIOBANK) Right 07/21/2023 Performed by Mary Telles MD at [facility] SKIN BIOPSY Several times STRABISMUS SURGERY [...] comments: Currently smoking 12ppd. 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 Worked at a [employer]. Has a dog in the home. Social [...] Interpersonal Safety: Unknown (09/15/2023) Received from [facility] Safety & Environment Fear of Current [...] morning. (Patient not taking: Reported on 04/02/2024) lsskpv-hzzxnmiy-bcrntiw (CREON) 36,000-114,000- 180,000 unit capsule,delayed release(DR/EC) Take [...] will obtain risk stratification and optimization by hris administrator prior to surgery. Patient follows with Dr. Mckinley Winkler, Cardiology. All questions were answered and informed consent was signed. Patient is scheduled for surgery on May 09. Scribed for and in the presence of Jeffrey Mcfadden MD by Sheree Aguilar (scribe). Sheree Aguilar 04/10/24 9751 PROVIDER STATEMENT I Jeffrey Mcfadden MD personally [...] has an increased risk of discharge to care home or sepsis. He is below average risk [...] that is reasonable. documented in this encounter [facility] 04-30-2024 History of Present illness Narrative Images from the original note were not included. Skin Check Location: Patient requests a skin examination from the waist up Dermatologic history: history of Actinic Keratosis, history of Basal Cell Carcinoma (right catholic, left catholic, left preauricular), history of Squamous Cell Carcinoma (right catholic) Last visit: 6 months ago Established patient [...] Frontal Scalp, Left Preauricular Area, Left Superior Aurora, Left Protestant, Left Temporal Scalp, Right Buccal Cheek, Right Forehead, Right Parotid Area, Right Postauricular Area, Right Posterior Mandible, Right Superior Aurora, Right Zygomatic Area Erythematous scaly papules Patient [...] limited to risks of scarring, darker or 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 [...] Frontal Scalp, Left Preauricular Area, Left Superior Aurora, Left Protestant, Left Temporal Scalp, Right Buccal Cheek, Right Forehead, Right Parotid Area, Right Postauricular Area, Right Posterior Mandible, Right Superior Aurora, Right Zygomatic Area 6. History of skin [...] Visit: 6 months documented in this encounter [facility] 04-25-2024 Instructions Ariela Barber RN - 04/25/2024 1:30 PM EDT Your surgery/procedure is scheduled at [facility] on 05/09/2024 at 1030 Arrival [id number] [facility] Address: [address] [place] [address]. [place], [place] [address] Park in [address] Parking lot located on [facility]. Report to the Entrance B. Check in at the information desk the surgery. The waiting room located on the second floor. If you have any questions prior to surgery, please call Pre-Admission Clinic at [phone] between 7:30 am and 4:30 pm Tuesday through Tuesday. If you have questions the morning of surgery, please call the Pre-op Department at [phone]. Notify your SURGEON if you develop any [...] weekly, hold 1 week prior to surgery: Mounjaro . Blood thinners: Please contact your prescribing [...] piercings ,hair extensions that contain metal, nail belgian, make-up, and contact lens. You may brush [...] RIGHTS AND RESPONSIBILITIES As a patient at [facility], you have the right to: Receive medical care and be informed of who is taking care of you Be treated with dignity and respect Have a family member/product support sales representative of choice and your physician notified of your admission Receive information and actively participate in decisions about your care and treatment Refuse care, treatment and services Decide who may provide your support and speak for you Access denominational and spiritual services Participate in ethical issues [...] of hospital charges and payment methods Patient/patient product support sales representative responsibilities are to: Provide information [...] in clean clothes. documented in this encounter [facility] 04-20-2024 Miscellaneous Notes Talked to the patient and his regarding the pathology was back from 2nd opinion at [facility] and they stated that due [...] on May 09. documented in this encounter [facility] 04-20-2024 Telephone encounter Note Talked to the patient and his regarding the pathology was back from 2nd opinion at [facility] and they stated that due [...] schedule path for surgery on May 09. [facility] 04-16-2024 History of Present illness Narrative [...] morning. (Patient not taking: Reported on 04/02/2024) efdhaj-fyotwhgl-euzlmqe (CREON) 36,000-114,000- 180,000 unit capsule,delayed release(DR/EC) Take [...] remove the PermCath. [facility] History of Present illness Narrative Hepatobiliary and Pancreas Surgery Clinic Note Treatment Team PCP: DYLAN MONTILLA MD Pbx Teacher: n/a Chief Complaint: Main duct IPMN, highly [...] IPMN. Cytology is currently pending review from [facility]. EUS 04/04/[address] Reeder: [...] high-risk for malignancy. Cytology pending review from [facility]. ROS: As per HPI. Past Medical History: Past Medical History: Diagnosis Date AAA (abdominal aortic aneurysm) ([facility]) monitoring Anxiety xanax prn Arthritis CKD (chronic kidney disease) stage 4, GFR 15-29 ml/min (CMS-HCC) 06/2023 Dental disease crown front tooth states could fall out if hit hard enough Diabetes mellitus type 2, controlled ([facility]) Dialysis patient ([facility]) Claudio Campoverde Sat- Renal Center Essential hypertension 02/23/2018 HL (hearing loss) hearing aid lt ear, deaf right ear Hypothyroidism Mixed hyperlipidemia 02/23/2018 Nicotine dependence 02/23/2018 Pancreatitis Peptic ulceration when he was younger Renal cell carcinoma ([facility]) right, left kidney atrophied Skin cancer BCC/SCC Varicella Visual impairment glasses prn Past Surgical History: Past Surgical History: Procedure Laterality Date BIOPSY MASS 04/01/2023 right kidney BRACHIAL CEPHALIC ARTERIOVENOUS FISTULA Left 01/11/2024 Performed by Zac Lombardi MD at [facility] CARDIAC CATHETERIZATION 2004 2007 [facility] CHOLECYSTECTOMY 2005 COLONOSCOPY 2012 ENDOSCOPIC ULTRASOUND UPPER N/A 04/04/2024 Performed by Polly Reeder MD at [facility] ESOPHAGOGASTRODUODENOSCOPY DIAGNOSTIC N/A 04/04/2024 Performed by Polly Reeder MD at [facility] EYE SURGERY NASAL SINUS SURGERY 2003 cleaned out NEPHRECTOMY PARTIAL OPEN(BIOBANK) Right 07/21/2023 Performed by Mary Telles MD at [facility] SKIN BIOPSY Several times STRABISMUS SURGERY [...] Narrative Lives with . Worked at a [employer]. Has a dog in the home. Social [...] Interpersonal Safety: Unknown (09/15/2023) Received from [facility] Safety & Environment Fear of Current [...] morning. (Patient not taking: Reported on 04/02/2024) faulkd-rgvpbanb-vzxghxd (CREON) 36,000-114,000- 180,000 unit capsule,delayed release(DR/EC) Take [...] will obtain risk stratification and optimization by hris administrator prior to surgery. Patient follows with Dr. Mckinley Winkler, Cardiology. All questions were answered and informed consent was signed. Patient is scheduled for surgery on May 09. Scribed for and in the presence of Jeffrey Mcfadden MD by Sheree Aguilar (scribe). Sheree Aguilar 04/10/24 4147 PROVIDER STATEMENT I Jeffrey Mcfadden MD personally [...] has an increased risk of discharge to care home or sepsis. He is below average risk [...] that is reasonable. documented in this encounter [facility] 04-02-2024 History of Present illness Narrative CHIEF [...] morning. (Patient not taking: Reported on 04/02/2024) nggztr-xppvahdi-zqsiyin (CREON) 36,000-114,000- 180,000 unit capsule,delayed release(DR/EC) Take [...] for this visit: Renal cell carcinoma (CMS-HCC) - Vas aorta/iliac duplex complete; Future Infrarenal abdominal aortic aneurysm (AAA) without rupture (CMS-HCC) - Vas aorta/iliac duplex complete; Future End stage renal disease (CMS-HCC) Hypertrophic cardiomyopathy (CMS-HCC) 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[facility]) Concerning the fistula, it appears that it is working well and they can use it at any time. Concerning the aneurysm the largest diameter was 4.6 cm and we will see him back in 6 months with a follow-up aortic duplex. documented in this encounter [facility] 03-28-2024 Instructions Formatting of th is note might be different from the original. Your surgery/procedure is scheduled at [facility] on 04/04/2024 at 1130 Arrival Time 930 [facility] Address: [address] [place] [address] Park in [address]1 Parking lot located on [facility]. Report to the Entrance B. Check in at the information desk the surgery. The waiting room located on the second floor. If you have any questions prior to surgery, please call Pre-Admission Clinic at [phone] between 7:30 am and 4:30 pm Tuesday through Tuesday. If you have questions the morning of surgery, please call the Pre-op Department at [phone]. Notify your SURGEON if you develop any [...] weekly, hold 1 week prior to surgery: Mounjaro . Blood thinners: Please contact your prescribing [...] piercings ,hair extensions that contain metal, nail belgian, make-up, and contact lens. You may brush [...] RIGHTS AND RESPONSIBILITIES As a patient at [facility], you have the right to: Receive medical care and be informed of who is taking care of you Be treated with dignity and respect Have a family member/product support sales representative of choice and your physician notified of your admission Receive information and actively participate in decisions about your care and treatment Refuse care, treatment and services Decide who may provide your support and speak for you Access denominational and spiritual services Participate in ethical issues [...] of hospital charges and payment methods Patient/patient product support sales representative responsibilities are to: Provide information about health status to facilitate care, treatment and services Follow the treatment, plan, keep appointments and speak up when you do not understand the plan Respect the rights of other patients and healthcare personnel Follow organizational rules and regulations that support quality care and a safe environment Fulfill financial obligations as promptly as possible [facility] 03-28-2024 Miscellaneous Notes Your surgery/procedure is scheduled at [facility] on 04/04/2024 at 1130 Arrival Time 930 [facility] Address: [address] [place] [address] Park in [address]1 Parking lot located on [facility]. Report to the Entrance B. Check in at the information desk the surgery. The waiting room located on the second floor. If you have any questions prior to surgery, please call Pre-Admission Clinic at [phone] between 7:30 am and 4:30 pm Tuesday through Tuesday. If you have questions the morning of surgery, please call the Pre-op Department at [phone]. Notify your SURGEON if you develop any [...] piercings ,hair extensions that contain metal, nail belgian, make-up, and contact lens. You may brush [...] RIGHTS AND RESPONSIBILITIES As a patient at [facility], you have the right to: Receive medical care and be informed of who is taking care of you Be treated with dignity and respect Have a family member/product support sales representative of choice and your physician notified of your admission Receive information and actively participate in decisions about your care and treatment Refuse care, treatment and services Decide who may provide your support and speak for you Access denominational and spiritual services Participate in ethical issues [...] of hospital charges and payment methods Patient/patient product support sales representative responsibilities are to: Provide information [...] promptly as possible documented in this encounter [facility] 03-06-2024 Miscellaneous Notes Images from the original note were not included. Domo Crystal CMA 03/06/24 12:48 PM Note Creon Update per patient's - Medication will cost over $500.00. Could you please assist with PA or patient Assistance program? Thank You Called Loni,patient's and informed of Creon patient assistance program also provided Katya Wang's phone# [phone]. Message sent to Katya to initiate paperwork. documented in this encounter [facility] 03-06-2024 Telephone encounter Note Images from the original note were not included. Domo Crystal CMA 03/06/24 12:48 PM Note Creon Update per patient's - Medication will cost over $500.00. Could you please assist with PA or patient Assistance program? Thank You [facility] 03-06-2024 Telephone encounter Note Called Loni,patient's and informed of Creon patient assistance program also provided Katya Kathleen's phone# [phone]. Message sent to Katya to initiate paperwork. [facility] 02-29-2024 History of Present illness Narrative [facility] New Patient Visit - GI Consult Subjective: [...] multiple episodes of pancreatitis, with hospitalizations in 2018, then 2019. Patient was evaluated by Dr. [...] History: Diagnosis Date AAA (abdominal aortic aneurysm) ([facility]) monitoring Anxiety xanax prn Arthritis Dental disease crown front tooth states could fall out if hit hard enough Diabetes mellitus type 2, controlled ([facility]) Dialysis patient ([facility]) claudio velasquez sat us renal in [facility] Essential hypertension 02/23/2018 HL (hearing loss) hearing aid lt ear, deaf right ear Hypothyroidism Mixed hyperlipidemia 02/23/2018 Nicotine dependence 02/23/2018 Pancreatitis Peptic ulceration when he was younger Renal cell carcinoma ([facility]) right, left kidney atrophied Skin cancer BCC/SCC Varicella Visual impairment prescribed but does not wear Past Surgical History: Procedure Laterality Date BIOPSY MASS 04/01/2023 right kidney BRACHIAL CEPHALIC ARTERIOVENOUS FISTULA Left 01/11/2024 Performed by Zac Lombardi MD at [facility] CARDIAC CATHETERIZATION 2004 2007 [facility] CHOLECYSTECTOMY 2005 COLONOSCOPY 2012 EYE SURGERY NASAL SINUS SURGERY 2003 cleaned out NEPHRECTOMY PARTIAL OPEN(BIOBANK) Right 07/21/2023 Performed by Mary Telles MD at [facility] SKIN BIOPSY Several times STRABISMUS SURGERY [...] this note were generated using voice recognition [employer] dictation software. Although every effort was made to ensure the accuracy of this automated electric train driver, some errors in electric train driver may have occurred. Scribed for and in the presence of Polly Reeder MD by Sheree Aguilar (maranda). I, Polly Reeder MD personally performed the services described in the documentation, as scribed by Sheree (maranda) in my presence, and it is both accurate and complete. Polly Reeder MD [facility] [place] [id number] PH: [phone] Sheree Aguilar 02/29/24 [id number] documented in this encounter [facility] 02-16-2024 History of Present illness Narrative Nursing [...] [place] 02/16/24 0857 documented in this encounter [employer] 02-14-2024 History of Present illness Narrative Hepatobiliary and Pancreas Surgery Consultation Treatment Team PCP: DYLAN MONTILLA MD Pbx Teacher: none Chief Complaint: Pancreatic duct dilation Pancreatic [...] Pancreatitis: yes, with two hospitalizations. Once in 2017, then . Genetic Testing: no ROS: Constitutional: Negative. HENT: Negative. Eyes: Negative. Respiratory: Negative. Cardiovascular: Negative. Gastrointestinal: Negative. Endocrine: Negative. Genitourinary: Negative. Musculoskeletal: Negative. Skin: Negative. Allergic/Immunologic Negative. Neurological: Negative. Hematological: Negative. Psychiatric/Behavioral: Negative. Past Medical History: Past Medical History: Diagnosis Date AAA (abdominal aortic aneurysm) ([facility]) monitoring Anxiety xanax prn Arthritis Dental disease crown front tooth states could fall out if hit hard enough Diabetes mellitus type 2, controlled ([facility]) [facility] [facility] claudio velasquez sat us renal in [facility] Essential hypertension 02/23/2018 HL (hearing loss) hearing aid lt ear, deaf right ear Hypothyroidism Mixed hyperlipidemia 02/23/2018 Nicotine dependence 02/23/2018 Pancreatitis Peptic ulceration when he was younger Renal cell carcinoma ([facility]) right, left kidney atrophied Skin cancer BCC/SCC Varicella Visual impairment prescribed but does not wear Past Surgical History: Past Surgical History: Procedure Laterality Date BIOPSY MASS 04/01/2023 right kidney BRACHIAL CEPHALIC ARTERIOVENOUS FISTULA Left 01/11/2024 Performed by Zac Lombardi MD at [facility] CARDIAC CATHETERIZATION 2004 2007 [facility] [place] CHOLECYSTECTOMY 2005 COLONOSCOPY 2012 EYE SURGERY NASAL SINUS SURGERY 2004 cleaned out NEPHRECTOMY PARTIAL OPEN(BIOBANK) Right 07/21/2023 Performed by Mary Telles MD at [facility] SKIN BIOPSY Several times STRABISMUS SURGERY 196 VASECTOMY Family History: Family History Problem Relation [...] Narrative Lives with . Worked at a [employer]. Has a dog in the home. Social [...] Interpersonal Safety: Unknown (09/15/2023) Re[facility] from [facility] [place] Safety & Environment Fear of Current [...] placed to GI Dr. Donnelly/Agustin. Scribe Statement: IYovana, scribed for and in the presence of Jeffrey Mcfadden MD. Yovana Brito 02/14/24 1436 PROVIDER STATEMENT I Jeffrey Mcfadden MD personally performed the services described in the documentation, as scribed by Yovana Brito in my presence, and it is both accurate and complete. documented in this encounter [facility] 02-10-2024 History of Present illness Narrative Patient is status post left brachiocephalic AV fistula. Good thrill in the fistula. Wound healed well. Follow-up in 4-6 weeks. Concerning his abdominal aortic aneurysm. Patient had a retroperitoneal aortic ultrasound recently which showed 4.3 cm largest diameter. Patient can wait another [address] scan of the abdomen and pelvis. documented in this encounter [facility] 02-03-2024 History of Present illness Narrative Images from the original note were not included. [address] [facility] [id number] Patient: Zev Crystal Date of : 1955 [...] starting a transplant evaluation for kidney at [facility]. After discussion, will plan for follow-up CT [...] History: Diagnosis Date AAA (abdominal aortic aneurysm) ([facility]) monitoring Anxiety xanax prn Arthritis Dental disease crown front tooth states could fall out if hit hard enough Diabetes mellitus type 2, controlled ([facility]) Dialysis patient ([facility] claudio velasquez sat [facility] renal in [facility] Essential hypertension 02/23/2018 HL (hearing loss) hearing aid lt ear, deaf right ear Hypothyroidism Mixed hyperlipidemia 02/23/2018 Nicotine dependence 02/23/2018 Pancreatitis Peptic ulceration when he was younger Renal cell carcinoma ([facility]) right, left kidney atrophied Skin cancer BCC/SCC Varicella Visual impairment prescribed but does not wear Past Surgical History: Procedure Laterality Date BIOPSY MASS 04/01/2023 right kidney BRACHIAL CEPHALIC ARTERIOVENOUS FISTULA Left 01/11/2024 Performed by Zac Lombardi MD at [facility] CARDIAC CATHETERIZATION 2004 2007 [facility] [place] CHOLECYSTECTOMY 2005 COLONOSCOPY 2012 EYE SURGERY NASAL SINUS SURGERY 2003 cleaned out NEPHRECTOMY PARTIAL OPEN(BIOBANK) Right 07/21/2023 Performed by Mary Telles MD at [facility] SKIN BIOPSY Several times STRABISMUS SURGERY [...] Physicians Hepatobiliary, Pancreatic & Endocrine Surgery - [place], [place]; Future Renal cell carcinoma (CMS-HCC) - CT abdomen with contrast; Future Problem List Genitourinary Renal cell carcinoma (CMS-HCC) Overview 02/23/23: CTAP-WOC 10/28/22 (for AAA surv) - 2.5 cm indet ant RLP lesion > MR-abdomen WOC 11/30/22 ([facility] [place]) - 3.4 cm R renal mass s/p [...] for your understanding. documented in this encounter [facility] 01-03-2024 Instructions Formatting of th is note might be different from the original. Your surgery/procedure is scheduled at [facility] on 01/11/24 at [id number] [place] [address] Address: [address] [place] [address] Park in P1 Parking lot located on [facility]. Report to the Entrance B. Check in at the information desk the surgery. The waiting room located on the second floor. If you have any questions prior to surgery, please call Pre-Admission Clinic at [phone] between 7:30 am and 4:30 pm Tuesday through Tuesday. If you have questions the morning of surgery, please call the Pre-op Department at [phone]. Notify your SURGEON if you develop any [...] would like to schedule therapy at a [facility] facility, please call [phone] ([phone]). Do not use lotions, creams, powders, perfume, make up, cologne or after-shaves day of surgery. Remove ALL jewelry including wedding rings, body piercings,hair extensions that contain metal, nail belgian, make-up, and contact lens. You may brush [...] RIGHTS AND RESPONSIBILITIES As a patient at [facility], you have the right to: Receive medical care and be informed of who is taking care of you Be treated with dignity and respect Have a family member/product support sales representative of choice and your physician notified of your admission Receive information and actively participate in decisions about your care and treatment Refuse care, treatment and services Decide who may provide your support and speak for you Access denominational and spiritual services Participate in ethical issues [...] of hospital charges and payment methods Patient/patient product support sales representative responsibilities are to: Provide information about health status to facilitate care, treatment and services Follow the treatment, plan, keep appointments and speak up when you do not understand the plan Respect the rights of other patients and healthcare personnel Follow organizational rules and regulations that support quality care and a safe environment Fulfill financial obligations as promptly as possible [facility] 01-03-2024 Miscellaneous Notes Your surgery/procedure is scheduled at [facility] on 01/11/24 at [id number] [place] [address] Address: [address] [place] [address] Park in P1 Parking lot located on [facility]. Report to the Entrance B. Check in at the information desk the surgery. The waiting room located on the second floor. If you have any questions prior to surgery, please call Pre-Admission Clinic at [phone] between 7:30 am and 4:30 pm Tuesday through Tuesday. If you have questions the morning of surgery, please call the Pre-op Department at [phone]. Notify your SURGEON if you develop any [...] would like to schedule therapy at a [facility] facility, please call [phone] ([phone]). Do not use lotions, creams, powders, perfume, make up, cologne or after-shaves day of surgery. Remove ALL jewelry including wedding rings, body piercings,hair extensions that contain metal, nail belgian, make-up, and contact lens. You may brush [...] RIGHTS AND RESPONSIBILITIES As a patient at [facility], you have the right to: Receive medical care and be informed of who is taking care of you Be treated with dignity and respect Have a family member/product support sales representative of choice and your physician notified of your admission Receive information and actively participate in decisions about your care and treatment Refuse care, treatment and services Decide who may provide your support and speak for you Access denominational and spiritual services Participate in ethical issues [...] of hospital charges and payment methods Patient/patient product support sales representative responsibilities are to: Provide information [...] promptly as possible documented in this encounter [employer] 01-02-2024 History of Present illness Narrative Images from the original note were not included. Mckinley Winkler MD, [facility] Aravind Daniels, KAMILA Jones, UNDERWRITING SUPPORT MANAGER [address] [place] [address] Name: Zev Crystal : 1955 Gender: male [...] Diagnosis Date AAA (abdominal aortic aneurysm) ([facility]) monitoring Anxiety xanax prn Arthritis Dental disease [...] 04/01/2023 right kidney CARDIAC CATHETERIZATION 2004 2007 [facility] [place] CHOLECYSTECTOMY 2005 COLONOSCOPY 2012 EYE SURGERY NASAL SINUS SURGERY 2003 cleaned out NEPHRECTOMY PARTIAL OPEN(BIOBANK) Right 07/21/2023 Performed by Mary Telles MD at [facility] SKIN BIOPSY Several times STRABISMUS SURGERY [...] Interpersonal Safety: Unknown (09/15/2023) Received from [facility] Safety & Environment Fear of Current [...] 3 Encounters: 11/16/23 60.3 kg (133 lb) 11/11/23 60.5 [...] of 215 cm/sec. General: Listed diameters are product support sales representative of maximum aortoiliac vessel diameter. [...] iliac artery aneurysm. 07/16 HD 06/2023 Echo ([place], [place]): LVEF 55-60% Asymmetric septal hypertrophy Velocities [...] - TBA Testing and records reviewed in [facility] Everywhere and other outside facilities, and are documented under CV database and testing. The note was completed using EMR. Every effort was made to ensure accuracy; however, inadvertent computerized electric train driver errors may be present. Mckinley Winkler MD documented in this encounter [facility] 12-30-2023 History of Present illness Narrative CHIEF [...] of his veins. documented in this encounter [facility] 12-26-2023 Note Chief Complaint consultation for anemia [...] 1 tab(s), Oral, (more content not included)... [facility] Comment on above: Result Comment: Elec tronically Signed By: ZAC TAYLOR, Ga Gutiérrez.caprice\Date and Time Signed: 12/26/23 13:38 EDT 11-11-2023 History of Present illness Narrative Images from the original note were not included. Mckinley Winkler MD, [facility] Aravind Daniels, GROCERY SACKER-UNDERWRITING SUPPORT MANAGER, MSN Katrin Jones, GROCERY SACKER-UNDERWRITING SUPPORT MANAGER [address] [place] [address] Name: Zev Crystal PCP: DYLAN MONTILLA MD [...] History: Diagnosis Date AAA (abdominal aortic aneurysm) ([facility]) monitoring Anxiety xanax prn Arthritis Dental disease crown front tooth states could fall out if hit hard enough Essential hypertension 02/23/2018 HL (hearing loss) hearing aid lt ear, deaf right ear Mixed hyperlipidemia 02/23/2018 Nicotine dependence 02/23/2018 Pancreatitis Peptic ulceration when he was younger Renal cell carcinoma ([facility]) right, left kidney atrophied Skin cancer BCC/SCC Varicella Visual impairment prescribed but does not wear Past Surgical History: Procedure Laterality Date BIOPSY MASS 04/01/2023 right kidney CARDIAC CATHETERIZATION 2004 2007 [facility] [place] CHOLECYSTECTOMY 2005 COLONOSCOPY 2012 EYE SURGERY NASAL SINUS SURGERY 2003 cleaned out NEPHRECTOMY PARTIAL OPEN(BIOBANK) Right 07/21/2023 Performed by Mary Telles MD at [facility] SKIN BIOPSY Several times STRABISMUS SURGERY [...] with 100% occlusion and collaterals 04/2023 Carotids ([facility]): Conclusions: BILATERAL: Plaque without significant stenosis (<50%) of the internal carotid artery. Antegrade vertebral artery flow. 04/2023 AAA ([facility]): Conclusions: Abdominal aortic aneurysm stable in size at approximately 4.1 cm.Hemodynamically significant (>50%) bilateral iliac artery stenosis. Left common iliac artery aneurysm. 06/2023 Echo ([place], [place]): LVEF 55-60% Asymmetric septal hypertrophy Velocities [...] numbers. Does HD via tunnel cath Gilles Snyder, [place]. Currently discussing with vascular and nephrology if needs AV fistula. Per spouse, hopes to not have to do HD chronically at this time. F/W nephrology at [facility]. Chest Discomfort: Atypical and nonexertional. As above, #4. The note was completed using EMR. Every effort was made to ensure accuracy; however, inadvertent computerized electric train driver errors may be present. All patient information obtained is from either the: EMR, patient, patient family member (or whomever is present with patient)- if present, or a combination of all. MIYA Dominique, MSN MIYA Dominique 11/11/23 1422 documented in this encounter [employer] 10-04-2023 Miscellaneous Notes Patient is scheduled with [...] issues. Thank you. documented in this encounter [facility] 10-04-2023 Telephone encounter Note Patient is scheduled [...] me know if any issues. Thank you. [facility] 09-30-2023 History of Present illness Narrative Images from the original note were not included. [address] [facility] [id number] Patient: Zev Crystal Date of : 1955 [...] Diagnosis Date AAA (abdominal aortic aneurysm) ([facility]) monitoring Anxiety xanax prn Arthritis Dental disease [...] 04/01/2023 right kidney CARDIAC CATHETERIZATION 2004 2007 [facility] [place] CHOLECYSTECTOMY 2005 COLONOSCOPY 2012 EYE SURGERY NASAL SINUS SURGERY 2003 cleaned out NEPHRECTOMY PARTIAL OPEN(BIOBANK) Right 07/21/2023 Performed by Mary Telles MD at [facility] SKIN BIOPSY Several times STRABISMUS SURGERY [...] ant RLP lesion > MR-abdomen WOC 11/30/22 ([facility] [place]) - 3.4 cm R renal mass s/p [...] for your understanding. [facility] Miscellaneous Notes Patient canceled previous appointment on 09/09. Can we please see if he can get an appointment in the next 1-2 weeks? Thanks. Patient is scheduled 3 with [facility]. Did you want him to see you instead? Please advise. Yes please documented in this encounter [facility] 09-13-2023 Telephone encounter Note Patient canceled previous appointment on 09/09. Can we please see if he can get an appointment in the next 1-2 weeks? Thanks. [facility] 09-13-2023 Telephone encounter Note Patient is scheduled 3 with [facility]. Did you want him to see you instead? Please advise. [facility] 09-13-2023 Telephone encounter Note Yes please [facility] 08-15-2023 Miscellaneous Notes Pt's said you were going to touch base with the [employer] Customer Experience Specialist. She is calling to see if you have done that? I sent a message. I should hopefully hear back this week. documented in this encounter [facility] 08-15-2023 Telephone encounter Note Pt's said you were going to touch base with the [employer] Customer Experience Specialist. She is calling to see if you have done that? [facility] 08-15-2023 Telephone encounter Note I sent a message. I should hopefully hear back this week. [facility] [employer] [facility] 08-05-2023 History of Present illness Narrative Images from the original note were not included. [address] [facility] [id number] Patient: Zev Crystal Date of : 1955 [...] Diagnosis Date AAA (abdominal aortic aneurysm) ([facility]) monitoring Anxiety xanax prn Arthritis Dental disease [...] 04/01/2023 right kidney CARDIAC CATHETERIZATION 2004 2007 [facility] [place] CHOLECYSTECTOMY 2005 COLONOSCOPY 2012 EYE SURGERY NASAL SINUS SURGERY 2003 cleaned out NEPHRECTOMY PARTIAL OPEN(BIOBANK) Right 07/21/2023 Performed by Mary Telles MD at [facility] SKIN BIOPSY Several times STRABISMUS SURGERY [...] ant RLP lesion > MR-abdomen WOC 11/30/22 ([facility] [place]) - 3.4 cm R renal mass s/p [...] for your understanding. documented in this encounter [employer] 08-05-2023 Instructions Mary Telles MD - 08/05/2023 3:30 PM EST My The following attachments cannot be sent through Care Everywhere.Kidney cancer ([place])documented in this encounter [facility] Evaluation + Plan note No data available for this section [facility] General Surgery [place] Evaluation note Diagnosis Melanocytic nevus of trunk- Primary Benign neoplasm of skin of trunk, except scrotum Lentigines Seborrheic keratosis Neoplasm of unspecified behavior of bone, soft tissue, and skin Actinic keratosis History of skin cancer Personal history of other malignant neoplasm of skin documented in this encounter [facility] HealthcareEvaluation note* Diagnosis End stage renal disease (CMS-HCC)- Primary End stage renal disease Abdominal aortic ectasia (CMS-HCC) Abdominal aortic ectasia PAD (peripheral artery disease) (CMS-HCC) Unspecified peripheral vascular disease documented in this encounter [facility]* Diagnosis End stage renal disease (CMS-HCC)- Primary End stage renal disease PAD (peripheral artery disease) (CMS-HCC) Unspecified peripheral vascular disease Essential hypertension Unspecified essential hypertension documented in this encounter [facility]* Diagnosis Claudication (CMS-HCC)- Primary Unspecified peripheral vascular disease PAD (peripheral artery disease) (CMS-HCC) Unspecified peripheral vascular disease Chronic kidney disease, unspecified CKD stage Renal cell carcinoma (CMS-HCC) Aneurysm of infrarenal abdominal aorta, unspecified whether ruptured (CMS-HCC) CLL (chronic lymphocytic leukemia) (CMS-HCC) Chronic lymphoid leukemia, without mention of having achieved remission Hypertrophic cardiomyopathy (CMS-HCC) Other primary cardiomyopathies documented in this encounter [facility]* Diagnosis Atherosclerosis of [place] coronary artery of [place] heart without angina pectoris- Primary Essential hypertension Unspecified essential hypertension Infrarenal abdominal aortic aneurysm (AAA) without rupture (CMS-HCC) Mixed hyperlipidemia Cigarette nicotine dependence without complication Hypertrophic cardiomyopathy (CMS-HCC) Other primary cardiomyopathies Abnormal ECG Nonspecific abnormal electrocardiogram (ECG) (EKG) PAD (peripheral artery disease) (CMS-HCC) Unspecified peripheral vascular disease Chronic kidney disease, unspecified CKD stage Chest discomfort Other chest pain documented in this encounter [facility]* Diagnosis End stage renal disease (CMS-HCC)- Primary End stage renal disease documented in this encounter [facility]* Diagnosis Renal cell carcinoma (CMS-HCC)- Primary Infrarenal abdominal aortic aneurysm (AAA) without rupture (CMS-HCC) End stage renal disease (CMS-HCC) End stage renal disease Essential hypertension Unspecified essential hypertension Cigarette nicotine dependence without complication End stage renal disease (CMS-HCC) End stage renal disease documented in this encounter [facility]* Diagnosis End stage renal disease [...] stage renal disease [facility] Diagnosis Renal mass- Primary Unspecified disorder of kidney and ureter Renal cell carcinoma (CMS-HCC) [facility] Diagnosis Infrarenal abdominal aortic aneurysm (AAA) without rupture (CMS-HCC)- Primary Renal cell carcinoma (CMS-HCC) Hypertrophic cardiomyopathy (CMS-HCC) Other primary cardiomyopathies End stage renal disease (CMS-HCC) End stage renal disease [facility] Diagnosis Renal cell carcinoma (CMS-HCC)- Primary [facility] Diagnosis Right renal mass- Primary Unspecified disorder of kidney and ureter Renal cell carcinoma (CMS-HCC) [facility] Diagnosis Pancreatic duct dilated Other specified disease of pancreas [facility] Diagnosis Pancreatic duct dilated- Primary Other specified disease of pancreas Pancreatic lesion [facility]* Diagnosis Right renal mass- Primary Unspecified disorder of kidney and ureter Pancreatic duct dilated Other specified disease of pancreas Renal cell carcinoma (CMS-HCC) [facility] Diagnosis Encounter for colorectal cancer screening- Primary Pancreatic duct dilated Other specified disease of pancreas [facility]* Diagnosis Chronic pancreatitis, unspecified pancreatitis type (CMS-HCC)- Primary [facility] Diagnosis Exocrine pancreatic insufficiency- Primary Other specified disease of pancreas documented in this encounter [facility]* Diagnosis Preop testing- Primary Unspecified pre-operative examination Pancreatic neoplasm Malignant neoplasm of pancreas, part unspecified Elevated blood sugar Other abnormal glucose documented in this encounter [facility]* Diagnosis Renal cell carcinoma (CMS-HCC)- Primary Infrarenal abdominal aortic aneurysm (AAA) without rupture (CMS-HCC) End stage renal disease (CMS-HCC) End stage renal disease Hypertrophic cardiomyopathy (CMS-HCC) Other primary cardiomyopathies 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CMS-HCC) Arteriovenous fistula, acquired documented in this encounter [facility]* Diagnosis IPMN (intraductal papillary mucinous neoplasm)- Primary Neoplasm of unspecified nature of digestive system Pancreatic duct dilated Other specified disease of pancreas documented in this encounter [facility]* Diagnosis Infrarenal abdominal aortic aneurysm (AAA) without rupture (CMS-HCC)- Primary PAD (peripheral artery disease) (CMS-HCC) Unspecified peripheral vascular disease Hypertrophic cardiomyopathy (CMS-HCC) Other primary cardiomyopathies Renal cell carcinoma (CMS-HCC) End stage renal disease (CMS-HCC) End stage renal disease documented in this encounter [facility]* Diagnosis Pancreatic neoplasm- Primary Malignant neoplasm of pancreas, part unspecified Pancreatic neoplasm Malignant neoplasm of pancreas, part unspecified Acute postoperative pain Other acute postoperative pain documented in this encounter [facility]* Diagnosis IPMN (intraductal papillary mucinous neoplasm)- Primary Neoplasm of unspecified nature of digestive system B-cell lymphoma of intra-abdominal lymph nodes, unspecified B-cell lymphoma type (CMS-HCC) documented in this encounter [facility] note* Diagnosis IPMN (intraductal papillary mucinous neoplasm)- Primary Neoplasm of unspecified nature of digestive system B-cell lymphoma of intra-abdominal lymph nodes, unspecified B-cell lymphoma type (CMS-HCC) documented [facility]* Diagnosis CLL (chronic lymphocytic leukemia) (CMS-HCC)- Primary Chronic lymphoid leukemia, without mention of having achieved remission IPMN (intraductal papillary mucinous neoplasm) Neoplasm of unspecified nature of digestive system B-cell lymphoma of intra-abdominal lymph nodes, unspecified B-cell lymphoma type (CMS-HCC) Renal cell carcinoma (CMS-HCC) [facility] Diagnosis Postoperative visit- Primary IPMN (intraductal papillary mucinous neoplasm) Neoplasm of unspecified nature of digestive system B-cell lymphoma of intra-abdominal lymph nodes, unspecified B-cell lymphoma type ([facility]) [facility] Diagnosis Exocrine pancreatic insufficiency- Primary Other specified disease of pancreas Postoperative visit IPMN (intraductal papillary mucinous neoplasm) Neoplasm of unspecified nature of digestive system [facility] Diagnosis Exocrine pancreatic insufficiency Other specified disease of pancreas [facility] Diagnosis IPMN (intraductal papillary mucinous neoplasm)- Primary Neoplasm of unspecified nature of digestive system Exocrine pancreatic insufficiency Other specified disease of pancreas Renal cell carcinoma ([facility]) [facility]* Diagnosis Melanocytic nevus of trunk- Primary Benign neoplasm of skin of trunk, except scrotum Lentigines Seborrheic keratosis Capillary angioma Nevus, non-neoplastic Neoplasm of unspecified behavior of bone, soft tissue, and skin Actinic keratosis History of skin cancer Personal history of other malignant neoplasm of skin documented in this encounter [facility]* Diagnosis Essential hypertension- Primary Unspecified essential hypertension Mixed hyperlipidemia Hypertrophic cardiomyopathy ([facility]-HCC) Other primary cardiomyopathies Abnormal ECG Nonspecific abnormal electrocardiogram (ECG) (EKG) PAD (peripheral artery disease) Unspecified peripheral vascular disease Chronic kidney disease, unspecified CKD stage Abnormal echocardiogram Nonspecific (abnormal) findings on radiological and other examination of other intrathoracic organs Preop cardiovascular exam Pre-operative cardiovascular examination Coronary artery disease involving [place] coronary artery of [place] heart without angina pectoris documented in [facility]* Diagnosis Renal cell carcinoma (CMS-HCC) CLL (chronic lymphocytic leukemia) ([facility]-HCC) Chronic lymphoid leukemia, without mention of having achieved remission Pancreatic neoplasm Malignant neoplasm of pancreas, part unspecified documented in this encounter [facility]* Diagnosis PAD (peripheral artery disease) Unspecified peripheral vascular disease Chronic kidney disease Chronic kidney disease, unspecified Preop testing- Primary Unspecified pre-operative examination PAD (peripheral artery disease) Unspecified peripheral vascular disease Chronic kidney disease, unspecified CKD stage documented in this encounter [facility]* Diagnosis Eureka's disease- Primary Other specified dermatoses 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 documented in this encounter [facility] HealthcareEvaluation note* Diagnosis Claudication- Primary Unspecified peripheral vascular disease [facility]* Diagnosis PAD (peripheral artery disease)- Primary Unspecified peripheral vascular disease [facility]* Diagnosis Aneurysm of infrarenal abdominal aorta, unspecified whether ruptured- Primary [facility]* Diagnosis Renal cell carcinoma (CMS-HCC)- Primary [facility]* Diagnosis Renal cell carcinoma (CMS-HCC) CLL (chronic lymphocytic leukemia) ([facility]-HCC) Chronic lymphoid leukemia, without mention of having achieved remission [facility]* Diagnosis Critical limb ischemia of both lower extremities (CMS-HCC)- Primary Claudication Unspecified peripheral vascular disease [facility]* Diagnosis Seborrheic keratosis, inflamed- Primary Neoplasm of unspecified behavior of bone, soft tissue, and skin Actinic keratosis [facility] No data available for this section [facility] [place] [facility] Discharge instructions* Attachments The following attachments cannot be sent through Care Everywhere. * Managing pain after surgery ([place]ambian) * Whipple Procedure ([place]) [facility]ructionsNot on file documented in this [...] sent through Care Everywhere. * Kidney cancer ([place]) [facility]ructionsNot on file documented in [facility] SystemInstructionsNot on file documented in this [facility] SystemInstructions* Attachments The following attachments cannot be sent through Care Everywhere. * Kidney cancer ([place]ian) documented in [facility] SystemInstructionsNot on file documented in this [facility] SystemInstructionsNot on file documented in this encounterProMediSocial Rewards SystemInstructionsNot on file documented in this encounterProTinitell Health SystemInstructionsNot on file documented in this encounterProTinitell Health SystemInstructionsNot on file documented in this encounterProTinitell Health SystemInstructionsNot on file documented in this encounterProGlobal Industry SystemInstructionsNot on file documented in this encounterProGlobal Industry SystemInstructionsNot on file documented in this encounterProGlobal Industry SystemInstructionsNot on file documented in this encounterProGlobal Industry SystemProgress note No data available for this section [facility] [place] Reason for referral (narrative)* Consultation (Routine) - Pending Review Specialty Diagnoses / Procedures Referred By Rhea manjarrez Referred To Contact Gastroenterology Diagnoses Pancreatic duct dilated Jeffrey Mcfadden MD [address], [address] [address] [address] Referral ID Status Reason Start Date Expiration Date Visits Requested Visits Authorized [id number] Pending Review Specialty Services Required 02/15/2024 02/14/2025 1 [facility] Misc (Routine) - Pending Review Specialty Diagnoses / Procedures Referred By Rhea manjarrez Referred To Contact Procedures Discharge Follow-Up Kylie Uribe PA [address], [address] [address] Phone: tel: fax: Referral ID Status Reason Start Date Expiration Date V isits Requested Visits Authorized [id number] Pending Review 05/17/2024 05/17/2025 1 1 * Misc (Routine) - Pending Review Specialty Diagnoses / Procedures Referred By Contac t Referred To Contact Procedures No dressing needed Kylie Uribe PA [address], [address] [address] Phone: tel: fax: Referral ID Status Reason Start Date Expiration Date V isits Requested Visits Authorized [id number] Pending Review 05/17/2024 05/17/2025 1 1 * Misc (Routine) - Pending Review Specialty Diagnoses / Procedures Referred By Contac t Referred To Contact Procedures Hygiene Kylie Uribe PA [address], [address] [address] Phone: tel: fax: Referral ID Status Reason Start Date Expiration Date V isits Requested Visits Authorized [id number] Pending Review 05/17/2024 05/17/2025 1 1 * Misc (Routine) - Pending Review Specialty Diagnoses / Procedures Referred By Contac t Referred To Contact Procedures Adult [facility] Kylie Uribe PA [address], [address] [address] Phone: tel: fax: Referral ID Status Reason Start Date Expiration Date V isits Requested Visits Authorized [id number] Pending Review 05/17/2024 05/17/2025 1 1 [facility] for visit Narrative* Consultation (Routine) - Pending Review Specialty Diagnoses / Procedures Referred By Rhea manjarrez Referred To Contact Surgical Oncology Diagnoses Pancreatic duct dilated Mary Telles MD [address] [place] [address] Jeffrey Mcfadden MD [address], [facility] [[email or web address] [address] [place] [address] Referral ID Status Reason Start Date Expiration Date Visits Requested Visits Authorized [id number] Pending Review Specialty Services Required 02/03/2024 02/02/2025 1 1 [facility] for visit Narrative* Auth/Cert (Routine) Specialty Diagnoses / Procedures Referred By Rhea manjarrez Referred To Contact Diagnoses Pancreatic neoplasm PANCREATIC NEOPLASM Procedures PANCREATECTOMY PARTIAL/POSSIBLE DISTAL - BIOBANK WHIPPLE - BIOBANK SPLENECTOMY - BIOBANK Jeffrey Mcfadden MD [address], [facility] [[email or web address]] [address] [place] [address] Phone: tel: fax: Referral ID Status Reason Start Date Expiration Date Visits Re quested Visits Authorized [id number] 1 1 [facility] Narrative* Consultation (Routine) - Pending Review Specialty Diagnoses / Procedures Referred By Rhea manjarrez Referred To Contact Medical Oncology / Hematology and Oncology Diagnoses 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, unspecified B-cell lymphoma type ([facility]-HCC) Amanda Randall, PA-C [address] [place] [address] Phone: tel: fax: Stanley Gillette MD [facility] [place] [address] Phone: tel: fax: Referral ID Status Reason Start Date Expiration Date Visits Requested Visits Authorized [id number] Pending Review Specialty Services Required 05/22/2025 1 1 [facility] Summary Purpose Family History No Family History Records Found No data available for this section No Family History Records FoundNo Family History Records FoundNo Family History Records FoundNo Family History Records FoundNo Family History Records FoundNo Family History Records FoundNo Family History Records Found Advance Directives Documents on File Type Date Recorded 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 Living Will 05/09/2024 12:33 PM Date Activated Date Inactivated Comments 05/11/2024 6:40 AM 05/17/2024 1:34 PM Date Activated Date Inactivated Comments 07/21/2023 7:44 PM 07/27/2023 6:42 PM Date Activated Date Inactivated Comments 02/23/2018 1:40 AM 02/24/2018 6:19 PM Healthcare Agents on File Name Relationship Healthcare Agent Dinorah p Communication Loni Crystal Spouse Health Care Agent ([place] Toxicology)[email or web address] Healthcare Agents on File Name Relationship Healthcare Agent Dinorah p Nu Crystal Spouse Health Care Agent ([place] Toxicology)[email or web address] Documents on File Type Date Recorded 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 Living Will 05/09/2024 12:33 PM Date Activated Date Inactivated Comments 05/11/2024 6:40 AM 05/17/2024 1:34 PM Date Activated Date Inactivated Comments 07/21/2023 7:44 PM 07/27/2023 6:42 PM Date Activated Date Inactivated Comments 02/23/2018 1:40 AM 02/24/2018 6:19 PM Healthcare Agents on File Name Relationship Healthcare Agent Dinorah p Nu Crystal Spouse Health Care Agent ([place] Toxicology)[email or web address] Healthcare Agents on File Name Relationship Healthcare Agent Dinorah p Nu Crystal Spouse Health Care Agent ([place] Toxicology)[email or web address] Date Activated Date Inactivated Comments 07/21/2023 7:44 [...] Communication Loni Crystal Spouse Health Care Agent [email or web address] Healthcare Agents on File Name Relationship Healthcare Agent Relationshi p Communication Loni Crystal Spouse Health Care Agent [email or web address] Healthcare Agents on File Name Relationship Healthcare Agent Relationshi p Communication Loni Crystal Spouse Health Care Agent [email or web address] Healthcare Agents on File Name Relationship Healthcare Agent Relationshi p Communication Loni Crystal Spouse Health Care Agent [email or web address] Healthcare Agents on File Name Relationship Healthcare Agent Relationshi p Communication Loni Crystal Spouse Health Care Agent [email or web address] Healthcare Agents on File Name Relationship Healthcare Agent Relationshi p Communication Loni Crystal Spouse Health Care Agent [email or web address] Healthcare Agents on File Name Relationship Healthcare Agent Relationshi p Communication Loni Crystal Spouse Health Care Agent [email or web address] Healthcare Agents on File Name Relationship Healthcare Agent Relationshi p Communication Loni Crystal Spouse Health Care Agent [email or web address] Healthcare Agents on File Name Relationship Healthcare Agent Relationshi p Communication Loni Crystal Spouse Health Care Agent [email or web address] Healthcare Agents on File Name Relationship Healthcare Agent Dinorah felder Communication Loni Crystal Spouse Health Care Agent [email or web address] Healthcare Agents on File Name Relationship Healthcare Agent Dinorah [place] Communication Loni Crystal Spouse Health Care Agent [email or web address] Healthcare Agents on File Name Relationship Healthcare Agent Dinorah felder Communication Loni Crystal Spouse Health Care Agent [email or web address] Reason for Referral Specialty Diagnoses / Procedures Referred By Contac t Referred To Contact Diagnoses Renal cell carcinoma (CMS-HCC) Infrarenal abdominal aortic aneurysm (AAA) without rupture (CMS-HCC) Procedures Vas aorta/iliac duplex complete Zac Lombardi MD [address] , [address] [address] Referral ID Status Reason Start Date Expiration Date V isits Requested Visits Authorized [id number] Pending Review 04/02/2024 04/02/2025 1 1 Specialty Diagnoses / Procedures Referred By Contac t Referred To Contact Diagnoses Preop testing Procedures Follow anesthesia guideines Lesvia Cyr, GROCERY SACKER-UNDERWRITING SUPPORT MANAGER [facility] [place] [address] Referral ID Status Reason Start Date Expiration Date V isits Requested Visits Authorized [id number] Pending Review 04/25/2024 04/25/2025 1 1 Specialty Diagnoses / Procedures Referred By Contac t Referred To Contact Diagnoses Pancreatic duct dilated Procedures Endoscopic Ultrasonography, GI Upper Polly Reeder MD [address] [facility], [address] [place] [address] Referral ID Status Reason Start Date Expiration Date V isits Requested Visits Authorized [id number] Pending Review 02/29/2024 02/28/2025 1 1 Specialty Diagnoses / Procedures Referred By Contac t Referred To Contact Diagnoses Encounter for colorectal cancer screening Procedures Colonoscopy Polly Reeder MD [address] [facility], [address] [place] [address] Referral ID Status Reason Start Date Expiration Date V isits Requested Visits Authorized [id number] Pending Review 02/29/2024 02/28/2025 1 1 Specialty Diagnoses / Procedures Referred By Contac t Referred To Contact Radiology Diagnoses Pancreatic duct dilated Pancreatic lesion Procedures MRCP with MRI abdomen with and without contrast Yung Wolfe PA [address] [facility], [address] [place] [address] Referral ID Status Reason Start Date Expiration Date V isits Requested Visits Authorized [id number] Pending Review 02/16/2024 02/15/2025 1 1 Specialty Diagnoses / Procedures Referred By Contac t Referred To Contact Radiology Diagnoses Renal cell carcinoma (CMS-HCC) Procedures MR abdomen with and without contrast Mary Telles MD [address] [place] [address] Referral ID Status Reason Start Date Expiration Date V isits Requested Visits Authorized [id number] Pending Review 08/05/2023 08/04/2024 1 1 Specialty Diagnoses / Procedures Referred By Contac t Referred To Contact Diagnoses Essential hypertension Hypertrophic cardiomyopathy (CMS-HCC) Abnormal ECG Abnormal echocardiogram Procedures Echo complete W/O contrast Mckinley Winkler MD [address] [place] [address] [facility] [address] [place] [address] Phone: [phone] Referral ID Status Reason Start Date Expiration Date V isits Requested Visits Authorized [id number] Pending Review 01/02/2024 01/01/2025 1 1 Specialty Diagnoses / Procedures Referred By Contac t Referred To Contact Diagnoses End stage renal disease (CMS-HCC) Procedures Vas vessel mapping hemodialysis bi Angie Mathias MD [address] [facility] [address] [place] [address] Referral ID Status Reason Start Date Expiration Date V isits Requested Visits Authorized [id number] Pending Review 12/28/2023 12/27/2024 1 1 Specialty Diagnoses / Procedures Referred By Contac t Referred To Contact Diagnoses Hypertrophic cardiomyopathy ([facility]-HCC) Abnormal ECG Chest discomfort Procedures Holter monitor 3-5 days Aravind Daniels APRN-UNDERWRITING SUPPORT MANAGER [address] [place] [address], [address] [place] [address] [address] Phone: [phone] Referral ID Status Reason Start Date Expiration Date V isits Requested Visits Authorized [id number] Pending Review 11/11/2023 11/10/2024 1 1 Specialty Diagnoses / Procedures Referred By Contac t Referred To Contact Diagnoses Essential hypertension Mixed hyperlipidemia Cigarette nicotine dependence without complication Hypertrophic cardiomyopathy ([facility]CC) Abnormal ECG Chronic kidney disease, unspecified CKD stage Chest discomfort Atherosclerosis of [place] coronary artery of [place] heart without angina pectoris Procedures Nuc stress Lexiscan Aravind Daniels APRN-[facility] [address] [place] [address], [address] [place] [address] [address] Phone: [phone] Referral ID Status Reason Start Date Expiration Date V isits Requested Visits Authorized [id number] Pending Review 11/11/2023 11/10/2024 5 5 Additional Source Comments (unrecognized sect ion and content) No Status Records FoundNo Status Records FoundNo Status Records FoundNo Status Records FoundNo Status Records FoundNo Status Records FoundNo Status Records FoundNo Status Records Found INFORMATION SOURCE (unrecogn ized section and content) DATE CREATED AUTHOR 12/05/2022 [facility] DATE CREATED AUTHOR AUTHOR'S ORGANIZ ATION 12/27/2023 [facility] DATE CREATED AUTHOR AUTHOR'S ORGANIZ ATION 08/24/2024 [facility] DATE CREATED AUTHOR AUTHOR'S ORGANIZ ATION 10/20/2024 [facility] DATE CREATED AUTHOR AUTHOR'S ORGANIZ ATION 11/14/2024 [facility] DATE CREATED AUTHOR AUTHOR'S ORGANIZ ATION 12/22/2024 [facility] DATE CREATED AUTHOR AUTHOR'S ORGANIZ ATION 03/23/[address] [facility] DATE CREATED AUTHOR AUTHOR'S ORGANIZ ATION 03/23/2025 [facility] Patient Care team informatio n (unrecognized section and content) Merchandise Stocker Relationship Specialty Start Date End Date Dylan Montilla MD PCP - General Family Medicine 06/23/22 Merchandise Stocker Relationship Specialty Start Date End Date Dylan Montilla MD PCP - General Family Medicine 06/23/22 Merchandise Stocker Relationship Specialty Start Date End Date Dylan Montilla MD PCP - General Family Medicine 06/23/22 Merchandise Stocker Relationship Specialty Start Date End Date Dylan Montilla MD PCP - General Family Medicine 06/23/22 Merchandise Stocker Relationship Specialty Start Date End Date Dylan Montilla MD [address] [id number] PCP - General Family Medicine 06/23/22 Merchandise Stocker Relationship Specialty Start Date End Date Dylan Montilla MD [address] [id number] PCP - General Family Medicine 06/23/22 Merchandise Stocker Relationship Specialty Start Date End Date Dylan Montilla MD [address] [place] [address] PCP - General Family Medicine 06/23/22 Merchandise Stocker Relationship Specialty Start Date End Date Dylan Montilla MD [address] [place] [address] PCP - General Family Medicine 06/23/22 Merchandise Stocker Relationship Specialty Start Date End Date Dylan Montilla MD [address] [id number] PCP - General Family Medicine 06/23/22 Merchandise Stocker Relationship Specialty Start Date End Date Dylan Montilla MD [address] [id number] PCP - General Family Medicine 06/23/22 Merchandise Stocker Relationship Specialty Start Date End Date Dylan Montilla MD [address] [id number] PCP - General Family Medicine 06/23/22 Merchandise Stocker Relationship Specialty Start Date End Date Dylan Montilla MD [address] [id number] PCP - General Family Medicine 06/23/22 Merchandise Stocker Relationship Specialty Start Date End Date Dylan Montilla MD [address] [id number] PCP - General Family Medicine 06/23/22 Merchandise Stocker Relationship Specialty Start Date End Date Dylan Montilla MD [address] [place] [address] PCP - General Family Medicine 06/23/22 Merchandise Stocker Relationship Specialty Start Date End Date Dylan Montilla MD [address] [place] [address] PCP - General Family Medicine 06/23/22 Merchandise Stocker Relationship Specialty Start Date End Date Dylan Montilla MD [address] [id number] PCP - General Family Medicine 06/23/22 Merchandise Stocker Relationship Specialty Start Date End Date Dylan Montilla MD [address] [place] [address] PCP - General Family Medicine 06/23/22 Merchandise Stocker Relationship Specialty Start Date End Date Dylan Montilla MD [address] [id number] PCP - General Family Medicine 06/23/22 Merchandise Stocker Relationship Specialty Start Date End Date Dylan Montilla MD [address] [id number] PCP - General Family Medicine 06/23/22 Merchandise Stocker Relationship Specialty Start Date End Date Dylan Montilla MD [address] [id number] PCP - General Family Medicine 06/23/22 Merchandise Stocker Relationship Specialty Start Date End Date Dylan Montilla MD PCP - General Family Medicine 06/23/22 Merchandise Stocker Relationship Specialty Start Date End Date Dylan Montilla MD PCP - General Family Medicine 06/23/22 Merchandise Stocker Relationship Specialty Start Date End Date Dylan Montilla MD PCP - General Family Medicine 06/23/22 Merchandise Stocker Relationship Specialty Start Date End Date Dylan Montilla MD PCP - General Family Medicine 06/23/22 Merchandise Stocker Relationship Specialty Start Date End Date Dylan Montilla MD PCP - General Family Medicine 06/23/22 Merchandise Stocker Relationship Specialty Start Date End Date Dylan Montilla MD PCP - General Family Medicine 06/23/22 Merchandise Stocker Relationship Specialty Start Date End Date Dylan Montilla MD PCP - General Family Medicine 06/23/22 Merchandise Stocker Relationship Specialty Start Date End Date Dylan Montilla MD PCP - General Family Medicine 06/23/22 Merchandise Stocker Relationship Specialty Start Date End Date Dylan Montilla MD PCP - General Family Medicine 06/23/22 Merchandise Stocker Relationship Specialty Start Date End Date Dylan Montilla MD PCP - General Family Medicine 06/23/22 Merchandise Stocker Relationship Specialty Start Date End Date Dylan Montilla MD PCP - General Family Medicine 06/23/22 Merchandise Stocker Relationship Specialty Start Date End Date Dylan Montilla MD PCP - General Family Medicine 06/23/22 Merchandise Stocker Relationship Specialty Start Date End Date Dylan Montilla MD PCP - General Family Medicine 06/23/22 Merchandise Stocker Relationship Specialty Start Date End Date Dylan Montilla MD PCP - General Family Medicine 06/23/22 Merchandise Stocker Relationship Specialty Start Date End Date Dylan Montilla MD PCP - General Family Medicine 06/23/22 Merchandise Stocker Relationship Specialty Start Date End Date Dylan Montilla MD PCP - General Family Medicine 06/23/22 Merchandise Stocker Relationship Specialty Start Date End Date Dylan Montilla MD PCP - General Family Medicine 06/23/22 Merchandise Stocker Relationship Specialty Start Date End Date Dylan Montilla MD [address] [place] [address] PCP - General Family Medicine 03/13/25 Merchandise Stocker Relationship Specialty Start Date End Date Dylan Montilla MD [address] [place] [address] PCP - General Family Medicine 03/13/25 Merchandise Stocker Relationship Specialty Start Date End Date Dylan Montilla MD [address] [place] [address] PCP - General Family Medicine 03/13/25 Reason for Visit (unrecogniz ed section and content) Reason Comments Follow-up Specialty Diagnoses / Procedures Referred By Contac t Referred To Contact Medical Oncology / Hematology and Oncology Diagnoses 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 Specialty Diagnoses / Procedures Referred By Contalvaro t Referred To Contact Gastroenterology Diagnoses Pancreatic duct dilated Jeffrey Mcfadden MD [address], [address] [address] [address] Referral ID Status Reason Start Date Expiration Date Visits Requested Visits Authorized [id number] Pending Review Specialty Services Required 02/15/2024 02/14/2025 [...] a significant amount of leakage. Reason Comments New Patient Cardiac clearance: l eft femoral bypass Dr Garcia 12/26/24 Reason Comments S/P. Left fem endart w angioplasty pop a rtery and ext iliac Reason Comments Claudication Left groin small are a draining. Enterectomy 12/26/24 Dr. Lombardi Reason Comments Follow-up 2 week follow up. Le ft thigh wound. Pt notes left groin still draining. Reason Comments Follow-up 6 week follow up. No testing. AAA. Scheduled Active and Recently Administ ered Medications [...] hurts) 0831 (Given - Provider: Kelly Rendon RN)2025 (Given - Provider: Dixie Ferrera, RN) 0955 (Given - Provider: Joel Lewis, ZENOBIA)2100 (Due) docusate sodium (COLACE) capsule 100 mg [...] refused) 0955 (Not Given - Provider: Joel Lewis RN - Reason: Patient/family refused)2100 (Due) glimepiride (AMARYL) [...] RN) 0955 (Given - Provider: Joel Lewis, ZENOBIA) heparin (porcine) injection 5,000 Units 5,000 Units, subcutaneous, Every 8 hours scheduled, First dose on Cely 05/10/24 at 1400, Look-alike/sound-alike medication - verify indication for use. Observe for bleeding. 0600 (Not Given - Provider: Brielle Guzman RN - Reason: Patient/family refused)1400 (Not Given - Provider: Jerica Wiggins RN - Reason: Patient/family refused)2200 (Not Given - Provider: Jones Velasquez RN - Reason: Patient/family refused) 0600 (Not Given - Provider: Jones Velasquez RN - Reason: Patient/family refused)1441 (Given - Provider: Kelly Rendon RN)2025 (Given - Provider: Dixie Ferrera, RN)2200 (Canceled Entry - Provider: Dixie Ferrera RN) 0600 (Given - Provider: Dixie Ferrera RN)1400 (Due)2200 (Due) insulin lispro (HumaLOG) injection 2-16 Units 2-16 Units, subcutaneous, Every 4 hours, First dose (after last modification) on 05/13/24 at 0400, hyperglycemia dosing. For blood glucose [...] - Provider: Kelly Rendon RN - Comment: [phone] (Given - Provider: Dixie Ferrera RN) 0000 (Not Given - Provider: Dixie Ferrera RN - Reason: Order parameters not met)0400 (Not Given - Provider: Dixie Ferrera RN - Reason: Order parameters not met)0954 (Not Given - Provider: Joel Lewis RN - Reason: Patient/family refused - Comment: [phone] (Due)1600 (Due)1999 (Due) levothyroxine (SYNTHROID, LEVOTHROID) tablet 50 mcg 50 mcg, oral, Daily, First dose on 05/14/24 at 1145, Look-alike/sound-alike medication. Verify indication for [...] Velasquez RN) 0532 (Given - Provider: Dixie Ferrera RN) metoclopramide (REGLAN) injection 5 mg 5 mg, intravenous, Every 12 hours, First dose (after last modification) on Cely 05/10/24 at 0800, Administer over 2 minutes., Intravenous Specific Administration: IV Push 31 (Given - Provider: Jerica Wiggins RN)1954 (Given - Provider: Jones Velasquez RN) 0836 (Given - Provider: Kelly Rendon RN)2024 (Given - Provider: Dixie Ferrera RN) 0957 (Given - Provider: Joel Lewis RN)1999 (Due) NIFEdipine XL (PROCARDIA XL) 24 hr [...] Wiggins RN) 0835 (Given - Provider: Kelly Rendon RN) 0955 (Given - Provider: Joel Lewis RN) sodium chloride 0.9 % bolus 150 mL, intravenous, at 600 mL/hr, Administer over 15 Minutes, Once, On Tue05/17/24 at 0000, For 1 dose, Hemodialysis, For [...] intravenous, Every 96 hours, First dose on Cely 05/10/24 at 0830, Hemodialysis, Venous Lumen. IVP equal [...] Hemodialysis, as priming solution for hemodialysis tubing. 0948 (Canceled Entry - Provider: Joel Lewis [...] 4 hours PRN, nausea, vomiting, Starting on Tue05/09/24 at 1841, Administer over 2-5 minutes. 1954 (Given - Provider: Jones Velasquez RN) oxyCODONE [...] Cely 05/10/24 at 0824, Hemodialysis, Arterial Lumen. Before use aspirate lumen and discard lumen volume THEN 0.9% Sodium Chloride 10 mL IVP. (aircraft quality control inspector: flush at beginning of each hemodialysis treatment). 0628 (Given - Provid er: Mey Sorto LPN) sodium chloride 0.9 % flush 10 mL 10 mL, intravenous, As needed, line care, Starting on Cely 05/10/24 at 0824, Hemodialysis, Arterial Lumen. 0.9% Sodium Chloride 10 mL IVP THEN 4% sodium citrate (0.2 grams/5 mL) IVP equal to lumen volume after use. (aircraft quality control inspector: flush and change caps after each hemodialysis treatment) 1338 (Given - Provider: Mony Alejandro RN) 0916 (Given - Provider: Mey Sorto LPN) sodium chloride 0.9 % flush 10 mL 10 mL, intravenous, As needed, line care, Starting on Cely 05/10/24 at 0824, Hemodialysis, Venous Lumen. Before use aspirate lumen and discard lumen volume THEN 0.9% Sodium Chloride 10 mL IVP. (aircraft quality control inspector: flush at beginning of each hemodialysis treatment) 0627 (Given - Provid er: Mey Sorto LPN) sodium chloride 0.9 % flush 10 mL 10 mL, intravenous, As needed, line care, Starting on Cely 05/10/24 at 0824, Hemodialysis, Venous Lumen. 0.9% Sodium Chloride 10 mL IVP THEN 4% sodium citrate (0.2 grams/5 mL) IVP equal to lumen volume after use. (aircraft quality control inspector: flush and change caps after each hemodialysis [...] a maximum of 2 mL, after use. (aircraft quality control inspector: flush and change caps after each hemodialysis treatment) 1339 (Given - Provider: Mony Alejandro RN) 0916 (Given - Provider: Mey Sorto LPN) sodium citrate 4 % (3 mL) flush 1.7 mL 1.7 mL, intravenous, As needed, line care, Starting on Cely 05/10/24 at 0824, Hemodialysis, Venous Lumen. IVP equal to lumen volume, up to a maximum of 2 mL, after use. (aircraft quality control inspector: flush and change caps after each hemodialysis treatment) 1339 (Given - Provider: Mony Alejandro RN) 0915 [...] BE BASED ON THE PRIMARY CLINICAL RECORDS. [employer] [facility]. provides no warranty or guarantee of the accuracy or completeness of information in this document.
[2025-04-04 09:18] LABS: Hematocrit 35.7 % (42.0-54.0); Hemoglobin 11.6 g/dL (14.0-18.0); Immature Granulocytes Abs Auto 0.01 10^3/uL (0.00-0.03); Immature Granulocytes Pct Auto 0.1 % (0.0-0.5); Lymphocytes Absolute Auto 2.5 10^3/uL (1.2-3.8); Mean Corpuscular HGB Conc 32.5 g/dL (29.9-35.2); Mean Corpuscular Hemoglobin 30.5 pg (25.9-34.0); Mean Corpuscular Volume 93.9 fL (80.0-94.0); Platelet Count 180 10^3/uL (150-450); Red Blood Count 3.80 10^6/uL (4.70-6.10); White Blood Count 6.8 10^3/uL (4.0-11.0)
[2025-04-04 09:46] LABS: Alanine Aminotransferase 88 U/L (16-63); Albumin Globulin Ratio 1.0; Albumin Level 3.3 g/dL (3.4-5.0); Alkaline Phosphatase 179 U/L (46-116); Anion Gap 15.4; Aspartate Amino Transferase 48 U/L (15-37); Blood Urea Nitrogen 36.0 mg/dL (7.0-18.0); Calcium 8.5 mg/dL (8.5-10.1); Carbon Dioxide 28.4 mmol/L (21.0-32.0); Chloride 100 mmol/L (98-107); Cholesterol 107 mg/dL (<=200); Estimated GFR (African America 21 (>=60 mL/min/1.73m^2); Estimated GFR (Non-African Ame 17 (>=60 mL/min/1.73m^2); Globulin 3.2 g/dL; Glucose 200 mg/dL (74-106); HDL Cholesterol 29 mg/dL (40-60); Potassium 4.8 mmol/L (3.5-5.1); Sodium 139 mmol/L (136-145); Total Protein 6.5 g/dL (6.4-8.2); Triglycerides 158 mg/dL (<=150); VLDL CHOLESTEROL 31.6 mg/dL
== END 2025-04-04 08:46 | disposition home or self-care (01) ==
LOC: LAB 08:46
PROVIDERS: PCP Family Medicine; Visit Provider Family Medicine
DX: E55.9 Vitamin D deficiency, unspecified (principal); Z12.5 Encounter for screening for malignant neoplasm of prostate; E11.9 Type 2 diabetes mellitus without complications
CPT/HCPCS: 36415; 80053; 80061; 82306; 83036; 85025; G0103